=== PATIENT | female | born 1950 | race Caucasian/White ===

== ENCOUNTER 2016-04-18 08:08 | Day surgery (SDC) | payer MEDICARE, OTHER ==
[2016-04-12 12:08] VITALS: BMI 23.0
[~2016-04-18 08:08] MED LIST: LACTATED RINGERS 1,000 ML IV SCH
[2016-04-18 08:20] VITALS: RESP 18
[2016-04-18 08:26] LABS: Glucose,Whole Blood 182 mg/dL (75-99)
[2016-04-18] MEDS ORDERED: LIDOCAINE 1% 20 ML VIAL (10MG/ML) FOR IV START INTRADERMA ONE (08:26)
[2016-04-18] MEDS ORDERED: LIDOCAINE 1% INJ 10MG/ML (20 ML MDV) ONE (09:22)
[2016-04-18] MEDS ORDERED: PROPOFOL 10 MG/ML 20 ML VIAL IV ONE (09:22)
[2016-04-18] MEDS ORDERED: GLYCOPYRROLATE 0.2 MG/ML 2 ML VIAL ONE (09:22)
--- NOTE | 2016-04-18 09:37 | P.GSHP ---
History of Present Illness H&P Date: 04/18/16 Chief Complaint: Right upper quadrant and epigastric pain This is a 65-year-old female who presents today for EGD. Patient has had complaints of right quadrant and epigastric pain. She has a previous history of peptic ulcer disease. Past Medical History Past Medical History: Diabetes Mellitus, Fibromyalgia, GERD/Reflux Additional Past Medical History / Comment(s): Idiopathic thrombocytopenia purpura, IBS, diverticulitis, hiatal hernia, 2 herniated discs-L3/L4 History of Any Multi-Drug Resistant Organisms: None Reported Past Surgical History: Adenoidectomy, Bladder Surgery, Bowel Resection, Cholecystectomy, Hernia Repair, Hysterectomy, Tonsillectomy Additional Past Surgical History / Comment(s): BLADDER SUSPENSION x 2, breast biopsy, bowel resection due to rupture, Past Anesthesia/Blood Transfusion Reactions: No Reported Reaction Additional Past Anesthesia/Blood Transfusion Reaction / Comment(s): Pt received blood in 2005 due to ITP without reaction. Past Psychological History: No Psychological Hx Reported Additional Psychological History / Comment(s): . Smoking Status: Current every day smoker Past Alcohol Use History: None Reported Additional Past Alcohol Use History / Comment(s): STARTED SMOKING AT AGE 18- SMOKES 1PPD Past Drug Use History: None Reported - Past Family History Mother Family Medical History: Cancer, Diabetes Mellitus Additional Family Medical History / Comment(s): Father had a defibrillator. He of heart dx in his 80's Medications and Allergies Home Medications Medication Instructions Recorded Confirmed Type Loperamide [Imodium] 2 mg PO Q8HR PRN 04/04/14 04/18/16 History Insulin Aspart [NovoLOG Flexpen] See Protocol SQ DIRECTED 08/02/15 04/18/16 History ALPRAZolam 0.25 mg PO BID PRN 11/03/15 04/18/16 History Insulin Detemir [Levemir] 22 unit SQ HS 11/09/15 04/18/16 History HYDROcodone/APAP 10-325MG [Buckeye 1 tab PO Q8HR PRN 04/12/16 04/18/16 History 10-325] Insulin Degludec [Tresiba 22 unit SQ HS 04/12/16 04/18/16 History Flextouch U-200] Solifenacin Succinate [Vesicare] 10 mg PO HS 04/12/16 04/18/16 History rOPINIRole HCL [Requip] 0.25 mg PO HS 04/12/16 04/18/16 History Allergies Allergy/AdvReac Type Severity Reaction Status Date / Time aspirin Allergy Unknown Verified 04/18/16 08:20 Surgical - Exam Vital Signs Pulse Resp BP Pulse Ox 92 18 111/54 98 04/18/16 08:19 04/18/16 08:19 04/18/16 08:19 04/18/16 08:19 - General well developed, no distress - Eyes PERRL - ENT normal pinna - Neck no masses - Respiratory normal expansion - Cardiovascular Rhythm: regular - Abdomen Right upper quadrant pain Abdomen: soft, non tender Results - Labs Abnormal Lab Results - Last 24 Hours (Table) 04/18/16 Range/Units 08:24 POC Glucose (mg/dL) 182 H (75-99) mg/dL Assessment and Plan Plan: Right upper quadrant and epigastric pain. We'll perform EGD.
--- NOTE | 2016-04-18 09:44 | P.OP ---
Date of Procedure: 04/18/16 Preoperative Diagnosis: Epigastric and right upper quadrant pain Postoperative Diagnosis: Hemorrhagic gastritis Procedure(s) Performed: EGD Anesthesia: MAC Surgeon: Ricci Fang Pathology: other (Antrum) Condition: stable Disposition: PACU Description of Procedure: The patient's placed on the endoscopy table in the lateral position. She received IV sedation. The gastroscope some placed oropharynx and passed in the esophagus and into the stomach. Scope was then placed through the pylorus. The first and second portion of the duodenum appeared normal. Scope was then brought back the antrum and there was evidence of hemorrhagic gastritis. A biopsies performed. The scope was retroflexed and remainder of the stomach appeared normal. The GE junction was at 40 cm. There was no evidence of a hiatal hernia. The distal esophagus appeared normal. The proximal esophagus. Normal. Scope was withdrawn for patient.
[2016-04-18 10:19] VITALS: BP 113/67; PULSE 89
[2016-04-18 10:19] LABS: Glucose,Whole Blood 179 mg/dL (75-99)
== END 2016-04-18 10:36 | disposition home or self-care (01) ==
LOC: ORWHC2ENDO 08:08
PROVIDERS: ATTEND Surgery
DX: K29.51 Unspecified chronic gastritis with bleeding (principal); Z87.11 Personal history of peptic ulcer disease; Z79.82 Long term (current) use of aspirin; E11.9 Type 2 diabetes mellitus without complications; M79.7 Fibromyalgia; K58.9 Irritable bowel syndrome, unspecified; D69.3 Immune thrombocytopenic purpura; Z79.4 Long term (current) use of insulin; Z79.899 Other long term (current) drug therapy; F17.200 Nicotine dependence, unspecified, uncomplicated
CPT/HCPCS: 88305; 88342; 43239; J2001; J2704; 99153

== ENCOUNTER 2016-08-25 22:42 | Observation (INO) | payer MEDICARE, OTHER ==
[2016-08-25] MEDS ORDERED: MORPHINE SULFATE 4 MG/ML SYRINGE IV STA (23:31)
--- NOTE | 2016-08-25 23:33 | ED ---
General Adult HPI - General Chief complaint: Chest Pain Stated complaint: chest & body pain Time Seen by Provider: 08/25/16 23:03 Source: patient, family Mode of arrival: wheelchair Limitations: no limitations - History of Present Illness Initial comments: This patient is a 65-year-old woman presenting to be evaluated for months of intermittent abdominal pains and then also today having some chest pain. Patient relates that she has been having these abdominal pains since she had a surgery in October of last year. She describes pain to the epigastric and upper abdomen which is intermittent, and she has a difficult time characterizing it. Today the pain was more severe than it usually is, she rates it as about 8 out of 10 now. She states that there is also some left lower quadrant pain going on which is not usually the case. Then this afternoon she was having substernal chest pain. Again the patient has difficult time characterizing these pains. There were no anginal symptoms, including no dyspnea, diaphoresis , palpitations, lightheadedness, or syncope rate the patient was having some nausea but she does have this associated with the abdominal pain. -: month(s) - Related Data Home Medications Medication Instructions Recorded Confirmed Loperamide [Imodium] 2 mg PO Q8HR PRN 04/04/14 08/25/16 Insulin Aspart [NovoLOG Flexpen] See Protocol SQ PC-TID 08/02/15 08/25/16 ALPRAZolam 0.25 mg PO BID PRN 11/03/15 08/25/16 Insulin Detemir [Levemir] 20 unit SQ BID 11/09/15 08/25/16 Solifenacin Succinate [Vesicare] 10 mg PO HS 04/12/16 08/25/16 rOPINIRole HCL [Requip] 0.25 mg PO HS 04/12/16 08/25/16 Allergies Allergy/AdvReac Type Severity Reaction Status Date / Time aspirin AdvReac Severe Hx of Verified 08/25/16 23:43 Perforated Bowel. Does not want. Review of Systems ROS Statement: Those systems with pertinent positive or pertinent negative responses have been documented in the HPI. ROS Other: All systems not noted in ROS Statement are negative. Constitutional: Denies: fever, weakness Respiratory: Denies: cough, dyspnea Cardiovascular: Reports: as per HPI, chest pain. Denies: palpitations, orthopnea, edema, syncope Gastrointestinal: Reports: abdominal pain, nausea. Denies: vomiting, diarrhea, constipation, melena, hematochezia Genitourinary: Denies: dysuria, hematuria Musculoskeletal: Denies: back pain Skin: Denies: rash Neurological: Denies: headache, weakness, numbness Past Medical History Past Medical History: Diabetes Mellitus, Fibromyalgia, GERD/Reflux Additional Past Medical History / Comment(s): Idiopathic thrombocytopenia purpura, IBS, diverticulitis, hiatal hernia, 2 herniated discs-L3/L4 History of Any Multi-Drug Resistant Organisms: None Reported Past Surgical History: Adenoidectomy, Bladder Surgery, Bowel Resection, Cholecystectomy, Hernia Repair, Hysterectomy, Tonsillectomy Additional Past Surgical History / Comment(s): BLADDER SUSPENSION x 2, breast biopsy, bowel resection due to rupture, Past Anesthesia/Blood Transfusion Reactions: No Reported Reaction Additional Past Anesthesia/Blood Transfusion Reaction / Comment(s): Pt received blood in 2005 due to ITP without reaction. Past Psychological History: No Psychological Hx Reported Additional Psychological History / Comment(s): . Smoking Status: Current every day smoker Past Alcohol Use History: None Reported Additional Past Alcohol Use History / Comment(s): STARTED SMOKING AT AGE 18- SMOKES 1PPD Past Drug Use History: None Reported - Past Family History Mother Family Medical History: Cancer, Diabetes Mellitus Additional Family Medical History / Comment(s): Father had a defibrillator. He of heart dx in his 80's General Exam Limitations: no limitations General appearance: alert, in no apparent distress Head exam: Present: atraumatic, normocephalic Eye exam: Present: normal appearance. Absent: scleral icterus, conjunctival injection ENT exam: Present: normal oropharynx, mucous membranes moist Respiratory exam: Present: normal lung sounds bilaterally. Absent: respiratory distress, wheezes, rales, rhonchi, stridor, chest wall tenderness Cardiovascular Exam: Present: regular rate, normal rhythm, normal heart sounds. Absent: systolic murmur, diastolic murmur, rubs, gallop GI/Abdominal exam: Present: soft, normal bowel sounds. Absent: distended, tenderness, guarding, rebound, mass, pulsatile mass, hernia Extremities exam: Present: normal inspection, normal capillary refill. Absent: pedal edema, calf tenderness Back exam: Present: normal inspection. Absent: CVA tenderness (R), CVA tenderness (L) Neurological exam: Present: alert Skin exam: Present: warm, dry, intact, normal color. Absent: rash, cyanosis, diaphoretic, erythema, petechiae, pallor, mottled Course Vital Signs 08/25/16 08/26/16 23:00 00:45 Temperature 96.7 F L Pulse Rate 89 74 Respiratory 16 18 Rate Blood Pressure 124/58 114/56 O2 Sat by Pulse 98 96 Oximetry EKG Findings - EKG Results: EKG: interpreted by SHIRIN BRADEN, sinus rhythm (Rate 82 bpm), normal axis, normal QRS, normal ST/T, no acute changes EKG shows: sinus rhythm - VT, Pacemaker, Normal: Normal tracing: normal tracing Medical Decision Making - Lab Data Result diagrams: 08/25/16 23:45 08/25/16 23:45 Lab Results 08/25/16 08/25/16 08/25/16 Range/Units 23:45 23:45 23:45 WBC 9.5 (3.8-10.6) k/uL RBC 5.40 (3.80-5.40) m/uL Hgb 15.4 (11.4-16.0) gm/dL Hct 47.3 H (34.0-46.0) % MCV 87.6 (80.0-100.0) fL MCH 28.5 (25.0-35.0) pg MCHC 32.6 (31.0-37.0) g/dL RDW 13.5 (11.5-15.5) % Plt Count 224 (150-450) k/uL Neutrophils % 43 % Lymphocytes % 45 % Monocytes % 6 % Eosinophils % 3 % Basophils % 1 % Neutrophils # 4.0 (1.3-7.7) k/uL Lymphocytes # 4.3 (1.0-4.8) k/uL Monocytes # 0.6 (0-1.0) k/uL Eosinophils # 0.3 (0-0.7) k/uL Basophils # 0.1 (0-0.2) k/uL Sodium 136 L (137-145) mmol/L Potassium 4.3 (3.5-5.1) mmol/L Chloride 106 (98-107) mmol/L Carbon Dioxide 21 L (22-30) mmol/L Anion Gap 9 mmol/L BUN 16 (7-17) mg/dL Creatinine 0.50 L (0.52-1.04) mg/dL Est GFR (MDRD) Af Amer >60 (>60 ml/min/1.73 sqM) Est GFR (MDRD) Non-Af >60 (>60 ml/min/1.73 sqM) Glucose 243 H (74-99) mg/dL Calcium 9.7 (8.4-10.2) mg/dL Magnesium 1.9 (1.6-2.3) mg/dL Total Bilirubin 0.3 (0.2-1.3) mg/dL AST 24 (14-36) U/L ALT 36 (9-52) U/L Alkaline Phosphatase 132 H (38-126) U/L Troponin I <0.012 (0.000-0.034) ng/mL Total Protein 6.5 (6.3-8.2) g/dL Albumin 4.1 (3.5-5.0) g/dL Amylase 44 (30-110) U/L Lipase 138 (23-300) U/L Disposition Clinical Impression: Chest pain, Abdominal pain Disposition: ADMITTED IP TO THIS HOSP Condition: Fair Referrals: Nick Brock MD [Primary Care Provider] - 1-2 days
[2016-08-26 00:07] LABS: Basophils # (A) 0.1 k/uL (0-0.2); Basophils % (A) 1 %; CH 28.8; CHCM 32.9; Eosinophils # (A) 0.3 k/uL (0-0.7); Eosinophils % (A) 3 %; HCT 47.3 % (34.0-46.0); HDW 2.24; HGB 15.4 gm/dL (11.4-16.0); Luc % (Auto) 2; Lymphocytes # (A) 4.3 k/uL (1.0-4.8); Lymphocytes % (A) 45 %; MCH 28.5 pg (25.0-35.0); MCHC 32.6 g/dL (31.0-37.0); MCV 87.6 fL (80.0-100.0); Mean Platelet Volume 7.7; Monocytes # (A) 0.6 k/uL (0-1.0); Monocytes % (A) 6 %; Neutrophils % (A) 43 %; RDW 13.5 % (11.5-15.5); WBC 9.5 k/uL (3.8-10.6); WBC (Perox) 9.03
[2016-08-26 00:17] LABS: ALT 36 U/L (9-52); AST 24 U/L (14-36); Alkaline Phosphatase 132 U/L (38-126); Amylase 44 U/L (30-110); Anion Gap 9 mmol/L; Blood Urea Nitrogen 16 mg/dL (7-17); Calcium 9.7 mg/dL (8.4-10.2); Carbon Dioxide 21 mmol/L (22-30); Chloride 106 mmol/L (98-107); Glucose 243 mg/dL (74-99); Magnesium 1.9 mg/dL (1.6-2.3); Non-African American GFR(MDRD) >60 (>60 ml/min/1.73 sqM); Potassium 4.3 mmol/L (3.5-5.1); Sodium 136 mmol/L (137-145); Total Bilirubin 0.3 mg/dL (0.2-1.3); Total Protein 6.5 g/dL (6.3-8.2)
--- NOTE | 2016-08-26 00:50 | CT ---
EXAM: CT Abdomen and Pelvis Without Intravenous Contrast CLINICAL HISTORY: Reason: Pain TECHNIQUE: Axial computed tomography images of the abdomen and pelvis without intravenous contrast. CTDI is 6.5 mGy and DLP is 292.7 mGy-cm. This CT exam was performed using one or more of the following dose reduction techniques: automated exposure control, adjustment of the mA and/or kV according to patient size, and/or use of iterative reconstruction technique. COMPARISON: CT abdomen-pelvis 11/03/2015 FINDINGS: Lower thorax: Mild right base probably fibrotic scarring or subsegmental atelectasis. Subpleural bleb along the anterior left lung base. ABDOMEN: Liver: Liver is unremarkable. Gallbladder and bile ducts: Previous cholecystectomy. Pancreas: Pancreas is unremarkable. No ductal dilation. Spleen: Spleen is unremarkable Adrenals: No adrenal masses. Kidneys and ureters: No evidence of renal calculi or hydronephrosis. Approximately 3.2 cm cyst mid zone left kidney, unchanged since 11/03/2015 with evidence of mild cyst wall calcification. Small subcentimeter hyperdense lesion along upper pole to mid zone left kidney suggesting probable hyperdense renal cyst with similar finding evident on prior CT of 11/03/2015. Stomach and bowel: No evidence of bowel obstruction or pneumoperitoneum. No evidence of appendicitis. Pelvic postsurgical changes about region of sigmoid colon. Appendix: See above. PELVIS: Bladder: Unremarkable. No stones. Reproductive: Unremarkable as visualized. ABDOMEN and PELVIS: Intraperitoneal space: See above. Bones/joints: Lower lumbar degenerative disc disease and spondylosis. Soft tissues: No evidence of ventral hernia. Vasculature: Calcific atherosclerotic disease. No evidence of abdominal aortic aneurysm. Lymph nodes: No abnormal masses or adenopathy. No abnormal inflammatory changes or fluid collections. IMPRESSION: Left renal cysts as described in body of report. No evidence of acute abdominal-pelvic disease.
[2016-08-26 01:12] VITALS: RESP 18
[2016-08-26] MEDS ORDERED: MORPHINE SULFATE 4 MG/ML SYRINGE IV STA (02:15)
[2016-08-26] MEDS ORDERED: NITROGLYCERIN SL TABS 0.4 MG TAB SUBLINGUAL PRN (04:24)
[2016-08-26] MEDS ORDERED: MORPHINE SULFATE 4 MG/ML SYRINGE IV PRN (04:24)
[2016-08-26] MEDS ORDERED: ALPRAZolam 0.25 MG TAB PO PRN (04:28)
[2016-08-26] MEDS ORDERED: SODIUM CHLORIDE 0.9% 1,000 ML IV SCH (04:30)
[2016-08-26 05:32] VITALS: BMI 22.8
[2016-08-26 06:21] LABS: Creatine Kinase 85 U/L (30-135)
[2016-08-26 06:35] LABS: Troponin I <0.012 ng/mL (0.000-0.034)
[2016-08-26 06:51] LABS: Creatine Kinase MB 2.6 ng/mL (0.0-2.4)
[2016-08-26 06:55] LABS: Glucose,Whole Blood 194 mg/dL (75-99)
[2016-08-26] MEDS ORDERED: INSULIN DETEMIR 100 UNIT/ML 10 ML VIAL SQ SCH (09:00)
--- NOTE | 2016-08-26 09:17 | CONS ---
DATE OF CONSULTATION: CHIEF COMPLAINT: Chest pain. Neeru is a 65-year-old lady with history of insulin-requiring diabetes who has a prior history of hiatal hernia surgery who comes to the hospital with chest discomfort. She describes it as an epigastric pain that radiates to her chest area. She has had this problem on and off since her hiatal hernia surgery. She also had vague abdominal pains. She is admitted to hospital with a diagnosis of chest pain and at the time of my evaluation, she is symptom free. EKG does not reveal ischemic changes and cardiac enzymes have been negative. Hemoglobin is normal at 15.4. Past medical history is significant for diabetes. Medications include: 1. Requip. 2. Imodium. 3. Levemir. 4. Xanax. THE PATIENT IS ALLERGIC TO ASPIRIN. FAMILY HISTORY: Negative for premature coronary artery disease. SOCIAL HISTORY: Significant for smoking. Negative for ETOH abuse, or drug abuse. REVIEW OF SYSTEMS: HEENT: Unremarkable. CARDIAC: As described above. RESPIRATORY: Negative. GI: Significant for symptoms as described above. CARDIAC: As described above. GENITOURINARY: Negative. MUSCULOSKELETAL: Negative. ENDOCRINE: Negative. DERMATOLOGICAL: Negative. Oncological: Negative. HEMATOLOGICAL: Negative. The rest of the system review is not relevant. On exam, comfortable at rest. Vital signs are stable. There is no jugular venous distention. Carotid upstroke is normal. There is no bruit. Chest exam reveals good air entry bilaterally. Heart exam reveals first and second heart sounds. No gallop. No murmur, no rub. ABDOMEN: Soft, nontender. Exam of extremities did not reveal edema. Peripheral pulses are felt. STRING CUTTER exam did not reveal focal neurological deficits. Two sets of troponins are negative. EKG does not reveal ischemic changes. ASSESSMENT: Chest pain, atypical, probably related to the hiatal hernia surgery. PLAN: The patient is doing well. Myocardial infarction is ruled out. I will obtain a 2-D echocardiogram on her and we should be able to discharge her home and arrange an outpatient stress test on her.
[2016-08-26] MEDS: INSULIN LISPRO (humaLOG) 300 UNIT/3 ML VIAL SQ SCH ×3 (09:48→17:34)
[2016-08-26] MEDS: HEPARIN SODIUM,PORCINE 5,000 UNIT/ML 1 ML VIAL SQ SCH ×2 (10:39→17:33)
[2016-08-26] MEDS ORDERED: NICOTINE 21MG/24HR PATCH TRANSDERM SCH (11:30)
--- NOTE | 2016-08-26 11:43 | HP ---
DATE OF ADMISSION: 08/26/2016 PRESENTING COMPLAINT: Abdominal pain. HISTORY OF PRESENTING COMPLAINT: This is a 65-year-old patient of Dr. Brock. Patient known to me from a prior admission in October of last year. Patient has a rather extensive medical history with chronic stable medical conditions include diabetes mellitus type 2, fibromyalgia, L3-4 herniated disc, restless leg syndrome, fatty liver. Patient on 08/05/2015 underwent cholecystectomy and lysis of adhesions by Dr. Fang and 08/03/2015 did undergo EGD that showed some gastritis. Patient has had abdominal pain on and off for quite some time and also in October she had presented with abdominal pain and epigastric pain. Patient's pain is present most off and on most of the time she states. Now she presented with pain a bit more in the lower abdomen, has slight nausea but is able to eat and can keep her food down pretty much the whole day, up and about in the house. Patient did have a bowel movement yesterday. Denies any fever. REVIEW OF SYSTEMS: CONSTITUTIONAL: Tired. HEENT: None. RESPIRATORY: None. CARDIOVASCULAR: No chest pain, though presented in the ER, most of the pain described is lower abdomen and going into the epigastric area below the breast on both the sides. GASTROINTESTINAL: As above. GENITOURINARY: None. MUSCULOSKELETAL: Lower back pain. DERMATOLOGICAL: None. HEMATOLOGICAL: None. LYMPHATICS: None. PSYCHIATRY: Slight anxiety. NEUROLOGICAL: Restless leg syndrome. Past medical history of diabetes mellitus type 2, fibromyalgia, L3-4 herniated disc, restless leg syndrome, fatty liver, gastritis. PAST SURGICAL HISTORY: Adenoidectomy, bladder surgery, bowel resection, cholecystectomy, hysterectomy, tonsillectomy, bladder suspension, ( ), salpingectomy. HOME MEDICATIONS: 1. Requip 0.52 mg p.o. q.h.s. 2. Vesicare 10 mg p.o. q.h.s. 3. Imodium 2 mg q.8 p.r.n. 4. Levemir 20 units subQ b.i.d. 5. NovoLog Flex pen. 6. Xanax 0.25 p.o. b.i.d. p.r.n. Allergy to ASPIRIN. On examination, temperature 98.1, pulse 71, respiration 18, blood pressure 105/45, pulse ox 94% on room air. GENERAL APPEARANCE: Lying in bed, not in distress. EYES: Pupils equal. Conjunctivae normal. HEENT: Oral cavity normal. NECK: JVD is not raised. Mass not palpable. RESPIRATORY: Effort normal. LUNGS: Decreased breath sounds. CARDIOVASCULAR: First and second sounds normal. No edema. ABDOMEN: Soft, nontender. Liver and spleen not palpable. LYMPHATIC: No lymph node palpable in neck or axillae. PSYCHIATRY: Alert and oriented x3. Mood and affect normal. NEUROLOGICAL: Pupils equal. Cranial nerves grossly intact. Power and sensation grossly intact. MUSCULOSKELETAL: Evidence of arthritis in different joints. INVESTIGATIONS: White count 9.5, hemoglobin 15.4. Potassium 4.3, BUN 16, creatinine 0.50. Troponin x2 negative. CT scan of the abdomen and pelvis nonspecific findings, no causes for his acute condition ASSESSMENT: 1. Acute on chronic abdominal pain in a patient with extensive medical history, long-standing abdominal pain. Patient has underlying irritable bowel syndrome. Other differential could be gut ischemia given that she is a smoker. The abdomen does not appear to be acute in terms of any surgical but will get a surgical opinion to make sure. 2. Chronic nicotine dependence. Patient is an active cigarette smoker. 3. Acute on chronic gastritis. The patient is a smoker. 4. Diabetes mellitus type 2, insulin requiring. 5. Fibromyalgia. 6. History of some chronic herniated lumbar disc. 7. Restless leg syndrome. 8. Fatty liver. 9. Emphysema in a smoker. PLAN: Home medications are reviewed. Accu-Cheks will be followed. Dr. Fang from General Surgery was consulted. Because of some chest pain, Cardiology was consulted who also felt this was not a cardiac presentation. Patient was actually counseled against smoking extensively. Await input from General Surgery.
[2016-08-26 11:54] LABS: Creatine Kinase 78 U/L (30-135)
--- NOTE | 2016-08-26 11:58 | P.GSCN ---
History of Present Illness Consult date: 08/26/16 Reason for Consult: Abdominal chest pain History of present illness: The patient's a 65-year-old female that presented to the emergency department with epigastric and chest pain. SHe has a history of gastritis and superficial gastric ulcers in the past. She had been on a proton pump inhibitor however her prescription ran out greater than 1 ago. She didn't take anything over-the- counter or called to request refill of the medication. She's had no nausea or vomiting. No blood in the stools or dark tarry stools. No fevers no chills. No shortness of breath. Review of Systems All systems: negative Past Medical History Past Medical History: Diabetes Mellitus, Fibromyalgia, GERD/Reflux Additional Past Medical History / Comment(s): Idiopathic thrombocytopenia purpura, IBS, diverticulitis, hiatal hernia, 2 herniated discs-L3/L4, RLS, gastritis, superficial gastric ulcers History of Any Multi-Drug Resistant Organisms: None Reported Past Surgical History: Adenoidectomy, Bladder Surgery, Bowel Resection, Cholecystectomy, Hernia Repair, Hysterectomy, Tonsillectomy Additional Past Surgical History / Comment(s): BLADDER SUSPENSION x 2, breast biopsy, bowel resection due to rupture, Past Anesthesia/Blood Transfusion Reactions: No Reported Reaction Additional Past Anesthesia/Blood Transfusion Reaction / Comm: Pt received blood in 2005 due to ITP without reaction. Past Psychological History: No Psychological Hx Reported Additional Psychological History / Comment(s): . Smoking Status: Current every day smoker Past Alcohol Use History: None Reported Additional Past Alcohol Use History / Comment(s): STARTED SMOKING AT AGE 18- SMOKES 1PPD Past Drug Use History: None Reported - Past Family History Mother Family Medical History: Cancer, Diabetes Mellitus Additional Family Medical History / Comment(s): Father had a defibrillator. He of heart dx in his 80's Medications and Allergies Home Medications Medication Instructions Recorded Confirmed Type Loperamide [Imodium] 2 mg PO Q8HR PRN 04/04/14 08/26/16 History Insulin Aspart [NovoLOG Flexpen] See Protocol SQ PC-TID 08/02/15 08/26/16 History ALPRAZolam 0.25 mg PO BID PRN 11/03/15 08/26/16 History Insulin Detemir [Levemir] 20 unit SQ BID 11/09/15 08/26/16 History Solifenacin Succinate [Vesicare] 10 mg PO HS 04/12/16 08/26/16 History rOPINIRole HCL [Requip] 0.25 mg PO HS 04/12/16 08/26/16 History Allergies Allergy/AdvReac Type Severity Reaction Status Date / Time aspirin AdvReac Severe Hx of Verified 08/26/16 04:58 Perforated Bowel. Does not want. Surgical - Exam Osteopathic Statement: *. No significant issues noted on an osteopathic structural exam other than those noted in the History and Physical/Consult. Vital Signs Temp Pulse Resp BP Pulse Ox 96.7 F L 89 16 124/58 98 08/25/16 23:00 08/25/16 23:00 08/25/16 23:00 08/25/16 23:00 08/25/16 23:00 - General well developed, well nourished, no distress - Eyes normal ocular movement - ENT normal mucosa, no hearing loss - Neck trachea midline - Respiratory normal respiratory effort, clear to auscultation - Cardiovascular Rhythm: regular - Abdomen Abdomen: soft, tender (In the epigastric area), no guarding, no rigid, no rebound, no distended Results - Labs 08/25/16 23:45 08/25/16 23:45 Abnormal Lab Results - Last 24 Hours (Table) 08/25/16 08/25/16 08/26/16 Range/Units 23:45 23:45 05:28 Hct 47.3 H (34.0-46.0) % Sodium 136 L (137-145) mmol/L Carbon Dioxide 21 L (22-30) mmol/L Creatinine 0.50 L (0.52-1.04) mg/dL Glucose 243 H (74-99) mg/dL POC Glucose (mg/dL) (75-99) mg/dL Alkaline Phosphatase 132 H (38-126) U/L CK-MB (CK-2) 2.6 H* (0.0-2.4) ng/mL 08/26/16 Range/Units 06:54 Hct (34.0-46.0) % Sodium (137-145) mmol/L Carbon Dioxide (22-30) mmol/L Creatinine (0.52-1.04) mg/dL Glucose (74-99) mg/dL POC Glucose (mg/dL) 194 H (75-99) mg/dL Alkaline Phosphatase (38-126) U/L CK-MB (CK-2) (0.0-2.4) ng/mL Diabetes panel 08/25/16 Range/Units 23:45 Sodium 136 L (137-145) mmol/L Potassium 4.3 (3.5-5.1) mmol/L Chloride 106 (98-107) mmol/L Carbon Dioxide 21 L (22-30) mmol/L BUN 16 (7-17) mg/dL Creatinine 0.50 L (0.52-1.04) mg/dL Glucose 243 H (74-99) mg/dL Calcium 9.7 (8.4-10.2) mg/dL AST 24 (14-36) U/L ALT 36 (9-52) U/L Alkaline Phosphatase 132 H (38-126) U/L Total Protein 6.5 (6.3-8.2) g/dL Albumin 4.1 (3.5-5.0) g/dL Calcium panel 08/25/16 Range/Units 23:45 Calcium 9.7 (8.4-10.2) mg/dL Albumin 4.1 (3.5-5.0) g/dL Pituitary panel 08/25/16 Range/Units 23:45 Sodium 136 L (137-145) mmol/L Potassium 4.3 (3.5-5.1) mmol/L Chloride 106 (98-107) mmol/L Carbon Dioxide 21 L (22-30) mmol/L BUN 16 (7-17) mg/dL Creatinine 0.50 L (0.52-1.04) mg/dL Glucose 243 H (74-99) mg/dL Calcium 9.7 (8.4-10.2) mg/dL Adrenal panel 08/25/16 Range/Units 23:45 Sodium 136 L (137-145) mmol/L Potassium 4.3 (3.5-5.1) mmol/L Chloride 106 (98-107) mmol/L Carbon Dioxide 21 L (22-30) mmol/L BUN 16 (7-17) mg/dL Creatinine 0.50 L (0.52-1.04) mg/dL Glucose 243 H (74-99) mg/dL Calcium 9.7 (8.4-10.2) mg/dL Total Bilirubin 0.3 (0.2-1.3) mg/dL AST 24 (14-36) U/L ALT 36 (9-52) U/L Alkaline Phosphatase 132 H (38-126) U/L Total Protein 6.5 (6.3-8.2) g/dL Albumin 4.1 (3.5-5.0) g/dL Assessment and Plan (1) History of gastric ulcer Status: Acute (2) History of gastritis Status: Acute (3) Abdominal pain Status: Acute Plan: Recommend resumption of a proton pump inhibitor. She's had 2 EGDs in the last year, neither one showed H. pylori so I do not think that needs to be checked. Start her on a soft diet. No surgical intervention planned at this point.
[2016-08-26 12:03] LABS: Glucose,Whole Blood 171 mg/dL (75-99)
[2016-08-26 12:08] LABS: Creatine Kinase MB 2.4 ng/mL (0.0-2.4); Troponin I <0.012 ng/mL (0.000-0.034)
[2016-08-26] MEDS ORDERED: PANTOPRAZOLE 40 MG TABLET PO SCH (12:30)
[2016-08-26 12:40] LABS: Hemoglobin A1C 10.9 % (4.2-6.1)
[2016-08-26] MEDS: SUCRALFATE 1 GM TAB PO SCH ×2 (12:40→17:32)
--- NOTE | 2016-08-26 13:05 | ECHOF ---
Referral Reason:chest pain MEASUREMENTS -------- HEIGHT: 152.4 cm WEIGHT: 56.7 kg BP: 120/40 RVIDd: 2.3 cm (< 3.3) IVSd: 0.9 cm (0.6 - 1.1) LVIDd: 3.7 cm (3.9 - 5.3) LVPWd: 0.9 cm (0.6 - 1.1) IVSs: 1.4 cm LVIDs: 2.3 cm LVPWs: 1.1 cm LA Diam: 2.4 cm (2.7 - 3.8) LAESV Index (A-L): 17.10 ml/m MV EXCURSION: 13.991 mm (> 18.000) MV EF SLOPE: 69 mm/s (70 - 150) EPSS: 0.7 cm MV E Raul: 0.72 m/s MV DecT: 325 ms MV A Raul: 0.87 m/s MV E/A Ratio: 0.83 FINDINGS -------- Sinus rhythm. This was a technically adequate study. Left ventricular wall thickness is normal. Overall left ventricular systolic function is normal with, an EF between 55 - 60 %. The right ventricle is normal in size. Normal LA size by volume 22+/-6 ml/m2. The right atrial size is normal. There is mild to moderate aortic valve sclerosis. There is no evidence of aortic regurgitation. Mild mitral annular calcification present. Mild mitral regurgitation is present. Mild tricuspid regurgitation present. There is no evidence of pulmonary hypertension. The right ventricular systolic pressure, as measured by Doppler, is {RVSP}. There is no pulmonic regurgitation present. The aortic root size is normal. There is no pericardial effusion. CONCLUSIONS -------- 1. Left ventricular wall thickness is normal. 2. Overall left ventricular systolic function is normal with, an EF between 55 - 60 %. 3. There is mild to moderate aortic valve sclerosis. 4. Mild mitral annular calcification present. 5. Mild mitral regurgitation is present. 6. Mild tricuspid regurgitation present. 7. There is no evidence of pulmonary hypertension. 8. The right ventricular systolic pressure, as measured by Doppler, is {RVSP}. WEIGHT AND BALANCE CONTROL AGENT: Yola Wheat RDCS
[2016-08-26 16:14] VITALS: BP 135/59; PULSE 88; TEMP 98.2
[2016-08-26] MEDS ORDERED: OXYBUTYNIN XL 5 MG TAB.ER.24 PO SCH (21:00)
[2016-08-27] MEDS ORDERED: ASPIRIN 325 MG TAB PO SCH (09:00)
--- NOTE | 2016-08-28 08:36 | DS ---
DATE OF ADMISSION: 08/26/2016 DATE OF DISCHARGE: 08/26/2016 FINAL DIAGNOSES: 1. Acute on chronic abdominal pain; could be irritable bowel syndrome. Gut ischemia still in the differential. 2. Chronic nicotine dependence. Patient is an active cigarette smoker. 3. Acute on chronic gastritis. 4. Diabetes mellitus type 2, insulin requiring. 5. Fibromyalgia. 6. Chronic herniated lumbar herniated disc. 7. Restless leg syndrome. 8. Fatty liver. 9. Emphysema in a smoker. HOSPITAL COURSE: This patient has had extensive GI workup in the past including EGDs seen by Dr. Mccall, Dr. Fang, keeps having ( ) abdominal pain. Yet again presented with episode of abdominal pain. There is no fever, no white count. Tolerating a diet. Having a bowel movement. Workup was negative. Seen by Dr. Patino from general surgery. Patient was found to be rather comfortable. ON EXAM: ABDOMEN: Soft, nontender. Also, there was nonspecific chest pain, seen by Dr. Jayla Mccall who will arrange for an outpatient stress test. Care was discussed with the patient. Counseled against smoking. The patient did also have a 2-D echocardiogram that showed EF of 55% to 60%. DISCHARGE MEDICATIONS: 1. Imodium 2 mg q.8 p.r.n. 2. NovoLog FlexPen t.i.d. 3. Xanax 0.25 p.o. b.i.d. p.r.n. 4. Levemir 20 units subcu b.i.d. 5. VESIcare 10 mg p.o. q.h.s. 6. Requip 0.25 p.o. q.h.s. 7. Omeprazole 20 mg p.o. daily. Follow up with Dr. Brock in 2 days. Follow up with Dr. Fang in a week. Follow up with Dr. Jayla Mccall per him.
== END 2016-08-26 18:02 | disposition home or self-care (01) ==
LOC: EC 22:42 → 3OBS 08-26 04:24
PROVIDERS: ADMIT Hospitalist; ATTEND Hospitalist
DX: G89.29 Other chronic pain (principal); R10.32 Left lower quadrant pain; R07.2 Precordial pain; R07.89 Other chest pain; R10.13 Epigastric pain; F17.210 Nicotine dependence, cigarettes, uncomplicated; K29.50 Unspecified chronic gastritis without bleeding; K29.00 Acute gastritis without bleeding; E11.9 Type 2 diabetes mellitus without complications; M79.7 Fibromyalgia; M51.26 Other intervertebral disc displacement, lumbar region; G25.81 Restless legs syndrome; K76.0 Fatty (change of) liver, not elsewhere classified; J43.9 Emphysema, unspecified; K21.9 Gastro-esophageal reflux disease without esophagitis; K58.9 Irritable bowel syndrome, unspecified; Z79.4 Long term (current) use of insulin; Z79.899 Other long term (current) drug therapy; Z88.6 Allergy status to analgesic agent
CPT/HCPCS: 99285; 96374 ×2; 96376 ×3; 36415; 93005; 93306; 80053; 82150; 83036; 82550; 82553; 83690; 83735; 84484; 85025; 74176; G0378; S4990; J2270 ×2; J1644

== ENCOUNTER 2016-09-04 06:37 | Day surgery (SDC) | payer MEDICARE, OTHER ==
[2016-09-01 09:27] VITALS: BMI 21.9
[2016-09-04 07:14] VITALS: RESP 18; TEMP 97
[2016-09-04] MEDS ORDERED: LACTATED RINGERS 1,000 ML IV ONE (07:14)
[2016-09-04 07:20] LABS: Glucose,Whole Blood 253 mg/dL (75-99)
[2016-09-04] MEDS ORDERED: MEPERIDINE 50 MG/ML SYRINGE ONE (07:35)
[2016-09-04] MEDS ORDERED: LIDOCAINE 1% INJ 10MG/ML (20 ML MDV) ONE (07:35)
[2016-09-04] MEDS ORDERED: PROPOFOL 10 MG/ML 20 ML VIAL IV ONE (07:35)
[2016-09-04] MEDS ORDERED: MIDAZOLAM 2 MG/2 ML VIAL ONE (07:35)
--- NOTE | 2016-09-04 07:47 | P.GSHP ---
History of Present Illness H&P Date: 09/04/16 Chief Complaint: Peptic ulcer disease This a 65-year-old female who presents today for EGD. She's had issues with peptic ulcers the past. Patient has complaints of epigastric abdominal pain. Past Medical History Past Medical History: Diabetes Mellitus, Fibromyalgia, GERD/Reflux Additional Past Medical History / Comment(s): Idiopathic thrombocytopenia purpura, IBS, diverticulitis, hiatal hernia, 2 herniated discs-L3/L4, RLS, gastritis, superficial gastric ulcers History of Any Multi-Drug Resistant Organisms: None Reported Past Surgical History: Adenoidectomy, Bladder Surgery, Bowel Resection, Cholecystectomy, Hernia Repair, Hysterectomy, Tonsillectomy Additional Past Surgical History / Comment(s): BLADDER SUSPENSION x 2, breast biopsy, bowel resection due to rupture, Past Anesthesia/Blood Transfusion Reactions: No Reported Reaction Additional Past Anesthesia/Blood Transfusion Reaction / Comment(s): Pt received blood in 2005 due to ITP without reaction. Past Psychological History: No Psychological Hx Reported Additional Psychological History / Comment(s): . Smoking Status: Current every day smoker Past Alcohol Use History: None Reported Additional Past Alcohol Use History / Comment(s): STARTED SMOKING AT AGE 18- SMOKES 1PPD Past Drug Use History: None Reported - Past Family History Mother Family Medical History: Cancer, Diabetes Mellitus Additional Family Medical History / Comment(s): Father had a defibrillator. He of heart dx in his 80's Medications and Allergies Home Medications Medication Instructions Recorded Confirmed Type Loperamide [Imodium] 2 mg PO Q8HR PRN 04/04/14 09/04/16 History Insulin Aspart [NovoLOG Flexpen] See Protocol SQ PC-TID 08/02/15 09/01/16 History ALPRAZolam 0.25 mg PO BID PRN 11/03/15 09/04/16 History Insulin Detemir [Levemir] 20 unit SQ BID 11/09/15 09/01/16 History Solifenacin Succinate [Vesicare] 10 mg PO HS 04/12/16 09/04/16 History rOPINIRole HCL [Requip] 0.25 mg PO HS 04/12/16 09/04/16 History Allergies Allergy/AdvReac Type Severity Reaction Status Date / Time aspirin AdvReac Severe Hx of Verified 09/04/16 07:06 Perforated Bowel. Does not want. Surgical - Exam Vital Signs Temp Pulse Resp BP Pulse Ox 97.0 F L 90 18 115/65 98 09/04/16 07:11 09/04/16 07:11 09/04/16 07:11 09/04/16 07:11 09/04/16 07:11 - General well developed, no distress - Eyes PERRL - ENT normal pinna - Neck no masses - Respiratory normal expansion - Cardiovascular Rhythm: regular - Abdomen Abdomen: soft, non tender Results - Labs Abnormal Lab Results - Last 24 Hours (Table) 09/04/16 Range/Units 07:15 POC Glucose (mg/dL) 253 H (75-99) mg/dL Assessment and Plan Plan: Peptic ulcer disease. We'll perform EGD.
--- NOTE | 2016-09-04 07:55 | P.OP ---
Date of Procedure: 09/04/16 Preoperative Diagnosis: Peptic ulcer disease Postoperative Diagnosis: Antral gastritis Mild esophagitis Procedure(s) Performed: EGD Implants: Anesthesia: MAC Surgeon: Ricci Fang Pathology: other (Antrum, esophagus) Condition: stable Disposition: PACU Indications for Procedure: Operative Findings: Description of Procedure: The patient's placed on the endoscopy table in the lateral position. She received IV sedation. The gastroscope some placed oropharynx passed in the esophagus and stomach. Scope was then placed through the pylorus. The first and second portion of duodenum appeared normal. Scope was then brought back the antrum this appeared mildly inflamed. A biopsies was performed. Scope was unretroflexed and remainder stomach appeared normal. There is no significant hiatal hernia. The GE junction was at 40 cm. The distal esophagus appeared mildly inflamed a biopsies performed. The proximal esophagus appeared normal. Scope was withdrawn for patient.
[2016-09-04] MEDS ORDERED: MEPERIDINE 50 MG/ML SYRINGE IVP STA (08:25)
[2016-09-04 09:09] VITALS: BP 108/62; PULSE 92
== END 2016-09-04 09:23 | disposition home or self-care (01) ==
LOC: ORWHC2ENDO 06:37
PROVIDERS: ATTEND Surgery
DX: K29.50 Unspecified chronic gastritis without bleeding (principal); K21.0 Gastro-esophageal reflux disease with esophagitis; E11.9 Type 2 diabetes mellitus without complications; M79.7 Fibromyalgia; J44.9 Chronic obstructive pulmonary disease, unspecified; F17.200 Nicotine dependence, unspecified, uncomplicated; Z79.4 Long term (current) use of insulin; Z79.899 Other long term (current) drug therapy; Z88.6 Allergy status to analgesic agent; Z87.11 Personal history of peptic ulcer disease
CPT/HCPCS: 88305; 43239; J2250; J2175; J2001; J2704

== ENCOUNTER 2016-10-17 07:24 | Day surgery (SDC) | payer MEDICARE, OTHER ==
[2016-10-10 11:58] VITALS: BMI 23.8
[~2016-10-17 07:24] MED LIST changes: +FAMOTIDINE 20 MG/2 ML VIAL IV PRN; +HEPARIN SODIUM,PORCINE 5,000 UNIT/ML 1 ML VIAL SQ ONE; +LIDOCAINE 1% 20 ML VIAL (10MG/ML) FOR IV START INTRADERMA PRN; +SCOPOLAMINE 1.5MG/72HR PATCH TRANSDERM ONE
--- NOTE | 2016-10-17 07:54 | P.GSHP ---
History of Present Illness H&P Date: 10/17/16 Chief Complaint: Abdominal pain This is a 58-year-old female who's had chronic issues with epigastric abdominal pain. She presents today for diagnostic laparoscopy with lysis of adhesions. Patient's aware the risks of surgery including conversion to the open procedure and injury to the stomach liver spleen, is also aware the risk of possible bowel injury. Past Medical History Past Medical History: Diabetes Mellitus, Fibromyalgia, GERD/Reflux Additional Past Medical History / Comment(s): Idiopathic thrombocytopenia purpura, IBS, diverticulitis, hiatal hernia, 2 herniated discs-L3/L4, Restless Leg Syndrome, gastritis, superficial gastric ulcers. History of Any Multi-Drug Resistant Organisms: None Reported Past Surgical History: Adenoidectomy, Bladder Surgery, Bowel Resection, Cholecystectomy, Hernia Repair, Hysterectomy, Tonsillectomy Additional Past Surgical History / Comment(s): BLADDER SUSPENSION x 2, breast biopsy, bowel resection due to rupture. Past Anesthesia/Blood Transfusion Reactions: No Reported Reaction Additional Past Anesthesia/Blood Transfusion Reaction / Comment(s): Pt received blood in 2005 due to ITP without reaction. Past Psychological History: No Psychological Hx Reported Smoking Status: Current every day smoker Past Alcohol Use History: None Reported Additional Past Alcohol Use History / Comment(s): STARTED SMOKING AT AGE 18- SMOKES 1PPD Past Drug Use History: None Reported - Past Family History Mother Family Medical History: Cancer, Diabetes Mellitus Additional Family Medical History / Comment(s): Father had a defibrillator. He of heart dx in his 80's Medications and Allergies Home Medications Medication Instructions Recorded Confirmed Type Loperamide [Imodium] 2 mg PO Q8HR PRN 04/04/14 10/17/16 History Insulin Aspart [NovoLOG Flexpen] See Protocol SQ PC-TID 08/02/15 10/17/16 History ALPRAZolam 0.25 mg PO BID PRN 11/03/15 10/17/16 History Insulin Detemir [Levemir] 30 unit SQ BID 11/09/15 10/17/16 History Solifenacin Succinate [Vesicare] 10 mg PO HS 04/12/16 10/17/16 History rOPINIRole HCL [Requip] 0.25 mg PO HS 04/12/16 10/17/16 History Omeprazole 20 mg PO QAM 10/10/16 10/17/16 History Allergies Allergy/AdvReac Type Severity Reaction Status Date / Time aspirin AdvReac Severe Hx of Verified 10/17/16 07:45 Perforated Bowel. Does not want. Surgical - Exam - General well developed, no distress - Eyes PERRL - ENT normal pinna - Neck no masses - Respiratory normal expansion - Cardiovascular Rhythm: regular - Abdomen Mild epigastric pain Abdomen: soft Assessment and Plan Plan: Chronic abdominal pain. We'll perform laparoscopic lysis of adhesion.
[2016-10-17] MEDS: ONDANSETRON 4 MG/2 ML VIAL IVP ONE ×2 (08:04→09:35)
[2016-10-17] MEDS ORDERED: INSULIN LISPRO (humaLOG) 300 UNIT/3 ML VIAL SQ ONE (08:10)
[2016-10-17 08:14] LABS: Glucose,Whole Blood 268 mg/dL (75-99)
[2016-10-17] MEDS ORDERED: BUPIVACAIN-EPI 0.25%-1:200,000 30 ML VIAL SQ ONE ×2 (08:27→08:49)
[2016-10-17] MEDS ORDERED: GLYCOPYRROLATE 0.2 MG/ML 2 ML VIAL ONE (08:30)
[2016-10-17] MEDS: ceFAZolin 2 GM in SODIUM CHLORIDE 0.9% 100 ML IVPB ONE ×2 (08:30→08:36)
[2016-10-17] MEDS ORDERED: ROCURONIUM BROMIDE 10 MG/ML 10 ML VIAL IV ONE (08:30)
[2016-10-17] MEDS ORDERED: MIDAZOLAM 2 MG/2 ML VIAL ONE (08:30)
[2016-10-17] MEDS ORDERED: ePHEDrine 50 MG/ML 1 ML AMP ONE (08:30)
[2016-10-17] MEDS ORDERED: PROPOFOL 10 MG/ML 20 ML VIAL IV ONE (08:30)
[2016-10-17] MEDS ORDERED: KETOROLAC 30 MG/ML 1 ML VIAL ONE (08:30)
[2016-10-17] MEDS ORDERED: NEOSTIGMINE 1 MG/ML 10 ML VIAL ONE (08:30)
[2016-10-17] MEDS ORDERED: fentaNYL (PF) 50 MCG/ML 2 ML AMP ONE (08:30)
[2016-10-17] MEDS ORDERED: SUCCINYLCHOLINE CHLORIDE 100 MG/5 ML SYR IV ONE (08:30)
[2016-10-17] MEDS ORDERED: LIDOCAINE 1% INJ 10MG/ML (20 ML MDV) ONE (08:30)
--- NOTE | 2016-10-17 09:18 | P.OP ---
Date of Procedure: 10/17/16 Preoperative Diagnosis: Adhesions Postoperative Diagnosis: Adhesions Procedure(s) Performed: Laparoscopic lysis of adhesions Implants: Anesthesia: SONYA Surgeon: Ricci Fang Estimated Blood Loss (ml): 5 Pathology: none sent Condition: stable Disposition: PACU Indications for Procedure: Operative Findings: Description of Procedure: Patient's placed the operative table in the supine position. She received general anesthesia. Her abdomen was prepped and draped usual sterile fashion. Using 11 blade the skin was incised left quadrant and using a Veress needle the peritoneal cavity is entered. The abdomen then insufflated CO2. After adequate insufflation a 5 mm blade less trocar was placed under direct vision into the perineal cavity. And then another fibrillar trocar is placed in the left lower quadrant and another 5 mm trochars placed in the left lateral position. The patient's placed in the left side up position. There were extensive adhesions noted along the upper midline area. These were photographed and then lysed using sharp dissection with cautery. All the adhesions in the epigastric and right upper quadrant area were lysed. There is no bleeding seen. The trochars withdrawn. Skin was closed interrupted 3-0 Monocryl suture. Dermabond was applied. Patient top procedure well and was sent to recovery in stable condition.
[2016-10-17 09:31] VITALS: TEMP 97.2
[2016-10-17] MEDS: HYDROmorphone 1 MG/ML 1 ML SYRINGE IVP PRN ×4 (09:35→10:08)
[2016-10-17 09:47] LABS: Glucose,Whole Blood 218 mg/dL (75-99)
[2016-10-17 10:36] VITALS: RESP 18
[2016-10-17 11:19] VITALS: BP 119/53; PULSE 86
== END 2016-10-17 11:34 | disposition home or self-care (01) ==
LOC: OR 07:24
PROVIDERS: ATTEND Surgery
DX: K66.0 Peritoneal adhesions (postprocedural) (postinfection) (principal); E11.9 Type 2 diabetes mellitus without complications; M79.7 Fibromyalgia; K21.9 Gastro-esophageal reflux disease without esophagitis; D69.6 Thrombocytopenia, unspecified; K58.9 Irritable bowel syndrome, unspecified; G25.81 Restless legs syndrome; K29.70 Gastritis, unspecified, without bleeding; K44.9 Diaphragmatic hernia without obstruction or gangrene; K25.9 Gastric ulcer, unspecified as acute or chronic, without hemorrhage or perforation; F17.200 Nicotine dependence, unspecified, uncomplicated; Z79.4 Long term (current) use of insulin; Z79.899 Other long term (current) drug therapy
CPT/HCPCS: 49329; J2250; J1644; J2710; J0690; J2405; J2001; J3010; J1885; J1170; J0330; J2704

== ENCOUNTER 2017-06-26 18:24 | Observation (INO) | payer MEDICARE, OTHER ==
[2017-06-26 19:15] LABS: Basophils # (A) 0.1 k/uL (0-0.2); Basophils % (A) 0 %; Eosinophils % (A) 0 %; HCT 47.2 % (34.0-46.0); HGB 15.6 gm/dL (11.4-16.0); Lymphocytes # (A) 2.6 k/uL (1.0-4.8); Lymphocytes % (A) 19 %; MCH 27.9 pg (25.0-35.0); MCV 84.8 fL (80.0-100.0); Mean Platelet Volume 8.4; Monocytes # (A) 1.2 k/uL (0-1.0); Monocytes % (A) 9 %; Neutrophils # (A) 9.5 k/uL (1.3-7.7); Neutrophils % (A) 71 %; Platelet Count 292 k/uL (150-450); RBC 5.56 m/uL (3.80-5.40); RDW 13.4 % (11.5-15.5); WBC 13.4 k/uL (3.8-10.6)
--- NOTE | 2017-06-26 19:20 | XR ---
EXAMINATION TYPE: XR chest 2V DATE OF EXAM: 06/26/2017 COMPARISON: 01/30/2017 HISTORY: Epigastric pain with history of hiatal hernia. TECHNIQUE: Frontal and lateral views of the chest are obtained. FINDINGS: There is no focal air space opacity, pleural effusion, or pneumothorax seen. The cardiac silhouette size is within normal limits. The osseous structures are intact. Pulmonary hyperinflatio n may be in the basis of degree of inspiration or underlying COPD. IMPRESSION: No acute cardiopulmonary process.
[2017-06-26 19:33] LABS: Albumin 4.1 g/dL (3.5-5.0); Calcium 9.9 mg/dL (8.4-10.2); Magnesium 1.7 mg/dL (1.6-2.3); Potassium 3.7 mmol/L (3.5-5.1); Total Bilirubin 0.4 mg/dL (0.2-1.3); Total Protein 6.8 g/dL (6.3-8.2)
[2017-06-26 19:35] LABS: Creatine Kinase 61 U/L (30-135); Prothrombin Time 9.9 sec (9.0-12.0)
--- NOTE | 2017-06-26 19:37 | ED ---
General Adult HPI - General Chief complaint: Chest Pain Stated complaint: vomiting/dizziness Time Seen by Provider: 06/26/17 19:24 Source: patient, RN notes reviewed, old records reviewed Mode of arrival: ambulatory Limitations: no limitations - History of Present Illness Initial comments: This is a 58-year-old female the ER for evaluation of chest pain history of heart disease, history of multiple surgical issues and abdominal issues. Patient feels nauseous, but started to chest pain shortness of breath last night. Chest pain has continued, she is unsure of her hiatal hernia or other issue. Patient did have heart attack with stent placement back in December. No significant testing since. Patient is continued to complain of pain, no diaphoresis. - Related Data Home Medications Medication Instructions Recorded Confirmed Loperamide [Imodium] 2 mg PO Q8HR PRN 04/04/14 06/26/17 Insulin Aspart [NovoLOG Flexpen] See Protocol SQ PC-TID 08/02/15 06/26/17 ALPRAZolam 0.25 mg PO BID PRN 11/03/15 06/26/17 Insulin Detemir [Levemir] 30 unit SQ BID 11/09/15 06/26/17 Solifenacin Succinate [Vesicare] 10 mg PO HS 04/12/16 06/26/17 rOPINIRole HCL [Requip] 0.25 mg PO HS 04/12/16 06/26/17 HYDROcodone/APAP 7.5-325MG [Dalton 1 tab PO Q4H PRN 01/14/17 06/26/17 7.5-325] Pantoprazole [Protonix] 40 mg PO DAILY 01/14/17 06/26/17 Clopidogrel Bisulfate [Plavix] 75 mg PO DAILY 06/26/17 06/26/17 Previous Rx's Medication Instructions Recorded Aspirin 81 mg PO DAILY chew 01/17/17 Atorvastatin [Lipitor] 80 mg PO HS #30 tab 01/17/17 Metoprolol Tartrate [Lopressor] 25 mg PO BID #60 tab 01/17/17 Nitroglycerin Sl Tabs [Nitrostat] 0.4 mg SUBLINGUAL Q5M PRN #21 tab 01/17/17 Spironolactone [Aldactone] 25 mg PO DAILY #30 tab 01/17/17 Allergies Allergy/AdvReac Type Severity Reaction Status Date / Time ticagrelor [From Brilinta] Allergy S.O.B Verified 06/26/17 19:21 aspirin AdvReac Severe Hx of Verified 06/26/17 19:20 Perforated Bowel. Does not want. Review of Systems ROS Statement: Those systems with pertinent positive or pertinent negative responses have been documented in the HPI. ROS Other: All systems not noted in ROS Statement are negative. Past Medical History Past Medical History: Diabetes Mellitus, Fibromyalgia, GERD/Reflux Additional Past Medical History / Comment(s): Idiopathic thrombocytopenia purpura, IBS, diverticulitis, hiatal hernia, 2 herniated discs-L3/L4, Restless Leg Syndrome, gastritis, superficial gastric ulcers. History of Any Multi-Drug Resistant Organisms: None Reported Past Surgical History: Adenoidectomy, Bladder Surgery, Bowel Resection, Cholecystectomy, Hernia Repair, Hysterectomy, Tonsillectomy Additional Past Surgical History / Comment(s): BLADDER SUSPENSION x 2, breast biopsy, bowel resection due to rupture. Past Anesthesia/Blood Transfusion Reactions: No Reported Reaction Additional Past Anesthesia/Blood Transfusion Reaction / Comment(s): Pt received blood in 2005 due to ITP without reaction. Past Psychological History: Anxiety Smoking Status: Current every day smoker Past Alcohol Use History: None Reported Past Drug Use History: None Reported - Past Family History Mother Family Medical History: Cancer, Diabetes Mellitus Additional Family Medical History / Comment(s): Father had a defibrillator. He of heart dx in his 80's General Exam Limitations: no limitations General appearance: alert, in no apparent distress Head exam: Present: atraumatic, normocephalic, normal inspection Eye exam: Present: normal appearance, PERRL, EOMI. Absent: scleral icterus, conjunctival injection, periorbital swelling ENT exam: Present: normal exam, mucous membranes moist Neck exam: Present: normal inspection. Absent: tenderness, meningismus, lymphadenopathy Respiratory exam: Present: normal lung sounds bilaterally. Absent: respiratory distress, wheezes, rales, rhonchi, stridor Cardiovascular Exam: Present: regular rate, normal rhythm, normal heart sounds. Absent: systolic murmur, diastolic murmur, rubs, gallop, clicks GI/Abdominal exam: Present: soft, normal bowel sounds. Absent: distended, tenderness, guarding, rebound, rigid Extremities exam: Present: normal inspection, full ROM, normal capillary refill. Absent: tenderness, pedal edema, joint swelling, calf tenderness Back exam: Present: normal inspection Neurological exam: Present: alert, oriented X3, CN II-XII intact Psychiatric exam: Present: normal affect, normal mood Skin exam: Present: warm, dry, intact, normal color. Absent: rash Course Vital Signs 06/26/17 06/26/17 06/26/17 18:26 20:01 20:46 Temperature 97.6 F Pulse Rate 113 H 100 98 Respiratory 22 18 18 Rate Blood Pressure 108/56 101/58 115/55 O2 Sat by Pulse 94 L 94 L 97 Oximetry 06/26/17 21:37 Temperature Pulse Rate 96 Respiratory 18 Rate Blood Pressure 95/51 O2 Sat by Pulse 93 L Oximetry - Reevaluation(s) Reevaluation #1: 06/26/17 22:21 Patient does have continued chest pain with nausea, mildly improvement pain control Reevaluation #2: 06/26/17 22:21 Medical record is reviewed with is significant for heart disease EKG Findings - EKG Comments: EKG Findings:: EKG shows sinus tachycardia rate 103, DC 144, QRS 90, QTC 508 Medical Decision Making - Medical Decision Making 58 female ER prevention chest pain. Anterior chest with nausea. History of heart disease. Patient be kept in cardiac observation. - Lab Data Result diagrams: 06/26/17 19:03 06/26/17 19:03 Lab Results 06/26/17 06/26/17 06/26/17 Range/Units 19:03 19:03 19:03 WBC 13.4 H (3.8-10.6) k/uL RBC 5.56 H (3.80-5.40) m/uL Hgb 15.6 (11.4-16.0) gm/dL Hct 47.2 H (34.0-46.0) % MCV 84.8 (80.0-100.0) fL MCH 27.9 (25.0-35.0) pg MCHC 33.0 (31.0-37.0) g/dL RDW 13.4 (11.5-15.5) % Plt Count 292 (150-450) k/uL Neutrophils % 71 % Lymphocytes % 19 % Monocytes % 9 % Eosinophils % 0 % Basophils % 0 % Neutrophils # 9.5 H (1.3-7.7) k/uL Lymphocytes # 2.6 (1.0-4.8) k/uL Monocytes # 1.2 H (0-1.0) k/uL Eosinophils # 0.0 (0-0.7) k/uL Basophils # 0.1 (0-0.2) k/uL PT (9.0-12.0) sec INR (<1.2) APTT (22.0-30.0) sec D-Dimer (<0.60) mg/L FEU Sodium 136 L (137-145) mmol/L Potassium 3.7 (3.5-5.1) mmol/L Chloride 88 L (98-107) mmol/L Carbon Dioxide 31 H (22-30) mmol/L Anion Gap 17 mmol/L BUN 25 H (7-17) mg/dL Creatinine 1.10 H (0.52-1.04) mg/dL Est GFR (CKD-EPI)AfAm 60 (>60 ml/min/1.73 sqM) Est GFR (CKD-EPI)NonAf 52 (>60 ml/min/1.73 sqM) Glucose 362 H (74-99) mg/dL Calcium 9.9 (8.4-10.2) mg/dL Magnesium 1.7 (1.6-2.3) mg/dL Total Bilirubin 0.4 (0.2-1.3) mg/dL AST 20 (14-36) U/L ALT 34 (9-52) U/L Alkaline Phosphatase 146 H (38-126) U/L Total Creatine Kinase 61 (30-135) U/L CK-MB (CK-2) 1.5 (0.0-2.4) ng/mL CK-MB (CK-2) Rel Index 2.5 Troponin I <0.012 (0.000-0.034) ng/mL Total Protein 6.8 (6.3-8.2) g/dL Albumin 4.1 (3.5-5.0) g/dL Lipase (23-300) U/L 06/26/17 06/26/17 06/26/17 Range/Units 19:03 19:03 19:03 WBC (3.8-10.6) k/uL RBC (3.80-5.40) m/uL Hgb (11.4-16.0) gm/dL Hct (34.0-46.0) % MCV (80.0-100.0) fL MCH (25.0-35.0) pg MCHC (31.0-37.0) g/dL RDW (11.5-15.5) % Plt Count (150-450) k/uL Neutrophils % % Lymphocytes % % Monocytes % % Eosinophils % % Basophils % % Neutrophils # (1.3-7.7) k/uL Lymphocytes # (1.0-4.8) k/uL Monocytes # (0-1.0) k/uL Eosinophils # (0-0.7) k/uL Basophils # (0-0.2) k/uL PT 9.9 (9.0-12.0) sec INR 1.0 (<1.2) APTT 20.9 L (22.0-30.0) sec D-Dimer 0.71 H (<0.60) mg/L FEU Sodium (137-145) mmol/L Potassium (3.5-5.1) mmol/L Chloride (98-107) mmol/L Carbon Dioxide (22-30) mmol/L Anion Gap mmol/L BUN (7-17) mg/dL Creatinine (0.52-1.04) mg/dL Est GFR (CKD-EPI)AfAm (>60 ml/min/1.73 sqM) Est GFR (CKD-EPI)NonAf (>60 ml/min/1.73 sqM) Glucose (74-99) mg/dL Calcium (8.4-10.2) mg/dL Magnesium (1.6-2.3) mg/dL Total Bilirubin (0.2-1.3) mg/dL AST (14-36) U/L ALT (9-52) U/L Alkaline Phosphatase (38-126) U/L Total Creatine Kinase (30-135) U/L CK-MB (CK-2) (0.0-2.4) ng/mL CK-MB (CK-2) Rel Index Troponin I (0.000-0.034) ng/mL Total Protein (6.3-8.2) g/dL Albumin (3.5-5.0) g/dL Lipase 77 (23-300) U/L - Radiology Data Radiology results: report reviewed (CTA chest shows negative PE, no aortic issue , CT of the pelvis shows possible ileus), image reviewed Critical Care Time Critical Care Time: Yes Total Critical Care Time: 31 Disposition Clinical Impression: Chest pain Disposition: ADMITTED IP TO THIS HOSP Condition: Undetermined Referrals: Nick Brock MD [Primary Care Provider] - 1-2 days
[2017-06-26 19:40] LABS: Partial Thromboplastin Time 20.9 sec (22.0-30.0)
[2017-06-26 19:48] LABS: Creatine Kinase MB 1.5 ng/mL (0.0-2.4); Troponin I <0.012 ng/mL (0.000-0.034)
[2017-06-26] MEDS ORDERED: RX INFO: IV CONTRAST WAS GIVEN 1 EACH MISC MISCELLANE PRN (20:23)
[2017-06-26] MEDS ORDERED: ONDANSETRON 4 MG/2 ML VIAL IVP STA (20:23)
[2017-06-26] MEDS ORDERED: MORPHINE SULFATE 4MG/4ML SYRG IVP STA (20:23)
[2017-06-26] MEDS ORDERED: PANTOPRAZOLE 40 MG/10 ML VIAL IVP STA (20:23)
--- NOTE | 2017-06-26 21:48 | CT ---
EXAMINATION TYPE: CT angio chest DATE OF EXAM: 06/26/2017 COMPARISON: NONE HISTORY: Chest pain, abdominal pain, dizziness, nausea, and vomiting. CT DLP: 175.6 mGycm. Automated Exposure Control for Dose Reduction was Utilized. CONTRAST: CTA scan of the thorax is performed with IV Contrast, patient injected with 80 mL of Isovue 370, pulm onary embolism protocol. MIP Images are created on CT scanner and reviewed. FINDINGS: LUNGS: There is biapical pleural-parenchymal thickening and moderate centrilobular as well as parasep pamela emphysematous changes of the lungs. Left upper lobe pulmonary nodule measures 0.9 x 1.1 cm on ser ies 3 image 41. Scarring is seen within the right middle lobe peripherally and subpleural reticulatio n is noted along the right lower lung. Subpleural bleb is seen near the interlobar fissure of the surjit gula and left lower lobe. No focal consolidation, pleural effusion or pneumothorax. MEDIASTINUM: There is satisfactory enhancement of the pulmonary artery and its branches, there is no CT evidence for pulmonary embolism. There are no greater than 1 cm hilar or mediastinal lymph nodes. No cardiomegaly or pericardial effusion is seen. Severe three-vessel coronary artery calcification s are noted. OTHER: There is circumferential distal and mid esophageal mucosal thickening in a long segment sugges tive of esophagitis. Central right breast mass, slightly lateral measures 1.8 cm on series 2 image 65 . IMPRESSION: 1. No evidence of pulmonary embolus. 2. Left upper lobe suspicious pulmonary nodule for which PET CT could be performed given its size of 1.1 cm. This is superimposed upon moderate centrilobular and paraseptal emphysematous disease, deemin g this patient high risk. 3. Central, slightly lateral 1.8 cm right breast mass for which diagnostic mammography is recommended if not recently performed. 4. Circumferential long segment mid to distal esophageal thickening most suggestive of esophagitis. 5. Severe three-vessel coronary artery calcifications, marker of coronary artery disease.
--- NOTE | 2017-06-26 21:58 | CT ---
EXAMINATION TYPE: CT abdomen pelvis w con DATE OF EXAM: 06/26/2017 HISTORY: Chest pain, abdominal pain, dizziness, nausea, and vomiting. CT DLP: 1319.2mGycm Automated Exposure Control for Dose Reduction was Utilized. CONTRAST: CT scan of the abdomen and pelvis is performed with IV Contrast, patient injected with 80 mL of Isovu e 370. COMPARISON: 11/03/2015. FINDINGS: LUNG BASES: Discussed on the CT thorax dictation of the same date. LIVER/GB: There is surgical absence of the gallbladder and mild intrahepatic biliary ductal dilatatio n, possibly related to the surgical absence of gallbladder with dilatation of the extrahepatic biliar y ductal, also likely postsurgical. PANCREAS: Within the pancreatic head there is ar 6 mm focal lesion on series 6 image 32 that is hypoa ttenuated. The main pancreatic duct is prominent but nonenlarged. No peripancreatic fat stranding, pa ncreatic parenchymal calcifications, or abnormal pancreatic enhancement other than that after mention ed 6 mm pancreatic head lesion. SPLEEN: No significant abnormality is seen. ADRENALS: There is an indeterminate left adrenal gland nodule measuring 2.0 cm. This contains a few p unctate calcifications. Further evaluation is recommended although this retrospectively appears low-d ensity in the prior exam and could represent an adenoma. Right adrenal gland is unremarkable. KIDNEYS: Overall stable approximately 3.7 cm left renal cyst is again seen with smaller subcentimeter too small to accurately characterize bilateral hypoattenuated renal lesions. BOWEL: There is mild dilatation of the proximal duodenum, likely related to peristalsis as it measure s 3.9 cm. Distally there a few loops of small bowel containing air-fluid levels and small bowel feces sign indicative of increased transit time/ileus/stasis. Few scattered colonic diverticula are seen w ithout pericolonic fat stranding. No evidence of large bowel dilatation. Appendix is within normal li mits. Anastomotic site is seen of the rectosigmoid junction. UTERUS/ADNEXA: Uterus appears surgically absent. LYMPH NODES: No greater than 1cm abdominal or pelvic lymph nodes are appreciated. OSSEOUS STRUCTURES: Osseous structures are grossly intact. Moderate multilevel degenerative changes o f the spine are seen. Moderate atherosclerosis is seen of the abdominal aorta and its branches. IMPRESSION: 1. Few nondilated prominent loops of small bowel containing air-fluid levels and small bowel feces si gn indicative of increased transit time/small bowel ileus. 2. Indeterminate left adrenal gland nodule for which full evaluation with dynamic contrast-enhanced C T abdomen is recommended (adrenal mass protocol). 3. 6 mm pancreatic head lesion for which MRCP is recommended.
[2017-06-26] MEDS ORDERED: HEPARIN SODIUM,PORCINE 5,000 UNIT/ML 1 ML VIAL IV PRN (22:19)
[2017-06-26] MEDS ORDERED: NITROGLYCERIN SL TABS 0.4 MG TAB SUBLINGUAL PRN (22:19)
[2017-06-26] MEDS ORDERED: MORPHINE ORAL SOLN 10 MG/5 ML CUP PO PRN (22:19)
[2017-06-26] MEDS ORDERED: HEPARIN SODIUM,PORCINE 5,000 UNIT/ML 1 ML VIAL IV ONE (22:19)
[2017-06-26] MEDS ORDERED: HEPARIN SOD,PORK IN 0.45% NACL 25,000 UNIT in 0.45% NACL 1 500ML.BAG IV SCH (22:30)
[2017-06-27] MEDS ORDERED: MORPHINE SULFATE 4MG/4ML SYRG IVP PRN (00:26)
[2017-06-27] MEDS ORDERED: SODIUM CHLORIDE 0.9% 1,000 ML IV ONE (02:02)
[2017-06-27] MEDS ORDERED: KETOROLAC 30 MG/ML 1 ML VIAL IVP STA (02:02)
[2017-06-27 02:07] LABS: Creatine Kinase 56 U/L (30-135)
[2017-06-27 02:20] LABS: Creatine Kinase MB 1.4 ng/mL (0.0-2.4); Troponin I <0.012 ng/mL (0.000-0.034)
[2017-06-27 03:01] VITALS: RESP 16
[2017-06-27 03:05] VITALS: BMI 21.9
[2017-06-27] MEDS ORDERED: MORPHINE SULF 5MG/10ML VL IVP PRN (03:17)
[2017-06-27 06:44] LABS: Glucose,Whole Blood 199 mg/dL (75-99)
[2017-06-27 07:17] LABS: Mean Platelet Volume 7.5; Platelet Count 206 k/uL (150-450)
[2017-06-27 07:37] LABS: Cholesterol 116 mg/dL (<200); HDL Cholesterol 24 mg/dL (40-60); LDL Cholesterol,Calculated 35 mg/dL (0-99); Triglycerides 283 mg/dL (<150)
[2017-06-27 07:46] LABS: Creatine Kinase 61 U/L (30-135)
[2017-06-27 08:00] LABS: Creatine Kinase MB 1.9 ng/mL (0.0-2.4); Troponin I <0.012 ng/mL (0.000-0.034)
[2017-06-27] MEDS ORDERED: HYDROcodone/APAP 7.5-325MG 1 EACH TAB PO PRN (09:34)
[2017-06-27] MEDS ORDERED: LOPERAMIDE 2 MG CAP PO PRN (09:34)
[2017-06-27] MEDS ORDERED: NITROGLYCERIN SL TABS 0.4 MG TAB SUBLINGUAL PRN (09:34)
[2017-06-27] MEDS ORDERED: ALPRAZolam 0.25 MG TAB PO PRN (09:34)
[2017-06-27] MEDS ORDERED: ASPIRIN 81 MG PO SCH (09:45)
[2017-06-27] MEDS ORDERED: METOPROLOL TARTRATE 25 MG TAB PO SCH (09:45)
[2017-06-27] MEDS ORDERED: SPIRONOLACTONE 25 MG TAB PO SCH (09:45)
[2017-06-27] MEDS ORDERED: PANTOPRAZOLE 40 MG TABLET PO SCH (09:45)
[2017-06-27] MEDS ORDERED: CLOPIDOGREL 75 MG TAB PO SCH (09:45)
--- NOTE | 2017-06-27 10:45 | CONS ---
CONSULTATION Neeru Dow is a 66-year-old female who presents with epigastric and abdominal discomfort and was admitted for chest pain evaluation. She has a history of coronary artery disease and coronary stenting to the LAD last year. However, the patient clearly states that last year she felt as something was heavy in her chest and something heavy was sitting on the chest and this time her admission is for a totally different symptom. She has burning epigastric discomfort and abdominal discomfort and tenderness and then the burning discomfort goes up into her throat, but she feels as if there is her hiatus hernia and is completely different from the symptom she experienced last year which she had prior to the stent. In fact, when we examined her abdomen, she is tender in the epigastrium. PAST HISTORY: Past history of coronary artery disease, coronary stenting in December. MEDICATIONS: Medications include insulin, Plavix, aspirin, atorvastatin, metoprolol, spironolactone. ALLERGIES: She is allergic to BRIL[place]TA. She says she has an intolerance to ASPIRIN and refuses ASPIRIN. REVIEW OF SYSTEMS: No fever, chills, or rigors. No cough or expectoration. No nausea, vomiting, or diarrhea. No hematuria or dysuria. No strokes or seizures. No skin lesions or musculoskeletal complaints. She has epigastric and abdominal discomfort. PAST HISTORY: Past history of ITP, IBS, restless legs syndrome, gastritis, and diverticulitis. PAST SURGICAL HISTORY: Past surgery of adenoidectomy, bladder surgery, bowel resection, cholecystectomy, hernia repair, hysterectomy, tonsillectomy, and bladder suspension. She has had blood transfusions, she received them in 2005 for ITP. Her 12-lead ECG at this time shows sinus rhythm with normal ST segments, normal P waves in the inferior leads. She had a chest CT which showed no evidence of pulmonary embolism. Left upper lobe nodule was noted. A circumferential long segment of mid to distal esophageal thickening suggestive of esophagitis was noted. Coronary calcifications were noted as expected. PHYSICAL EXAMINATION: On examination, she is afebrile 98.6 degrees Fahrenheit, pulse rate is in the 60s to 70s, respirations are normal. Head and neck examination is normal. Heart sounds are normal. Breath sounds are clear. No rhonchi, no crackles. Epigastric tenderness is noted. Abdominal tenderness is noted. Extremities are warm, no edema. The labs are reviewed. Her cardiac enzymes are normal x3. IMPRESSION: 1. Epigastric and abdominal symptoms with normal cardiac enzymes and normal ECG and very different from her symptoms in December last year. 2. Known coronary artery disease, status post coronary artery stenting. The patient refuses aspirin. She is otherwise on Plavix and statins. SUGGEST: 1. GI workup. 2. Continue dual antiplatelet therapy and statins and 2-D echo and Doppler study to assess cardiac structure and function. 3. The CT scan suggest thickening of the esophagus, which is consistent with her symptoms of burning discomfort going up to her throat. MMODL / IJN: [id number] /
[2017-06-27 12:15] LABS: Glucose,Whole Blood 262 mg/dL (75-99)
[2017-06-27] MEDS ORDERED: SODIUM CHLORIDE 0.9% 1,000 ML IV SCH (12:30)
[2017-06-27] MEDS: INSULIN ASPART 100 UNIT/ML 1 ML 10 ML VIAL SQ SCH ×2 (12:54→18:19)
--- NOTE | 2017-06-27 13:00 | HP ---
HISTORY AND PHYSICAL DATE OF ADMISSION: 06/26/2017 PRESENTING COMPLAINT: Nausea, vomiting, epigastric pain. HISTORY OF PRESENTING COMPLAINT: This is a very pleasant 66-year-old patient. Patient has rather extensive medical history. Chronic stable medical conditions include diabetes mellitus type 2, fibromyalgia, L3-L4 herniated discs, restless legs syndrome, fatty liver. Patient in the past has had a perforated ulcer from what she describes. Patient was here in December with an ST-elevation myocardial infarction with stent to the LAD. Patient has continued to smoke. Patient has a known hiatal hernia and she ran out of a acid reflux medications and she started vomiting a few times yesterday and felt a lot of burning sensation in the epigastrium, belching, and that is why came in. The burning sensation was more in the epigastric area. No fever. No chills. No precordial pain. No dizziness. No lightheadedness. No perspiration. REVIEW OF SYSTEMS: CONSTITUTIONAL: Tired. HEENT: None. RESPIRATORY: Occasional wheezing, cough. CARDIOVASCULAR: No precordial pain. GASTROINTESTINAL: Heartburn. Rest is as above. GENITOURINARY: None. MUSCULOSKELETAL: None. DERMATOLOGICAL: None. HEMATOLOGICAL: None. LYMPHATIC: None. PSYCHIATRY: None. NEUROLOGICAL: None. PAST MEDICAL HISTORY: ST-elevation myocardial infarction with stent in December 2016, diabetes type 2, fibromyalgia, GERD, history of ITP, irritable bowel syndrome, hiatal hernia, restless legs syndrome, emphysema. PAST SURGICAL HISTORY: Adenoidectomy, bladder surgery, bowel resection, cholecystectomy, cardiac cath with stent, hernia repair, tonsillectomy, bladder suspension x2, bowel resection due to rupture. PSYCH HISTORY: Some anxiety. SOCIAL HISTORY: The patient has been smoking for over 45 years about a pack a day, trying to cut back. Denies alcohol. HOME MEDICATIONS: 1. Requip 0.25 p.o. q.h.s. 2. VESIcare 10 mg q.h.s. 3. Nitrostat 0.4 sublingual q.5 p.r.n. 4. Imodium 2 mg p.o. q.8 p.r.n. 5. [place] 7.5 one tablet q.4 p.r.n. 6. Lipitor 80 mg q.h.s. 7. Xanax 0.25 p.o. b.i.d. p.r.n. 8. Aldactone 25 mg p.o. daily. 9. Protonix 40 mg p.o. daily. 10.Lopressor 25 p.o. b.i.d. 11.Levemir 13 units subcu b.i.d. 12.NovoLog p.c. t.i.d. 13.Plavix 75 mg p.o. daily. 14.Aspirin 81 mg p.o. daily. ALLERGY: BRILINTA. PHYSICAL EXAMINATION: Temperature 96.6, pulse 88, respirations 16, blood pressure 103/51, pulse ox 94% on room air. GENERAL APPEARANCE: Thin build, lying in bed, tired-appearing. EYES: Pupils equal, conjunctivae normal. HEENT: External appearance of nose and ears normal, oral cavity normal. NECK: JVD not raised. Mass not palpable. Respiratory effort normal. LUNGS: Diminished breath sounds. Minimal wheezing. CARDIOVASCULAR: First and second sounds normal. No edema. ABDOMEN: Mild epigastric tenderness. No guarding, rigidity. Liver and spleen not palpable. LYMPHATIC: No lymph node palpable in neck or axillae. PSYCHIATRY: Alert and oriented x3. Mood and affect normal. NEUROLOGICAL: Pupils equal, cranial nerves grossly intact. Power and sensation grossly intact. INVESTIGATIONS: White count 13.4, hemoglobin 15.6, potassium 3.7, BUN 25, creatinine 1.10, glucose 362, troponin x3 negative, LDL 35, lipase 77. Chest x-ray nil acute. EKG shows P- pulmonale. CT scan of the abdomen and pelvis shows a few nondilated prominent loops of small bowel containing air-fluid levels, indeterminate left adrenal gland nodule, a 6 mm pancreatic head lesion. Chest CTA shows emphysematous changes and left upper lobe possible pulmonary nodule. Nodule is noted and there is a 1.8 cm right breast mass and there is some distal esophageal thickening suggestive of esophagitis. ASSESSMENT: 1. This is a patient who has known hiatal hernia and reflux symptoms who had been on anti-reflux medications that she is on and off. Continued to smoke. Presents with severe amount of vomiting, severe burning, reflux symptoms with some tenderness in the epigastrium, likely from severe reflux. 2. Does not appear to be a cardiac presentation. 3. Coronary artery disease with stent to the left anterior descending artery. 4. Diabetes mellitus type 2, chronically on insulin. 5. Chronic fibromyalgia. 6. Gastroesophageal reflux disease. 7. ITP. 8. Irritable bowel syndrome. 9. Hiatal hernia. 10.Restless legs syndrome. 11.Emphysema in a current smoker. 12.Chronic nicotine dependence, patient is active cigarette smoker. 13.Left upper lobe pulmonary nodule. 14.A 1.8 cm right breast mass. 15.Left adrenal gland nodule for further outpatient workup. 16.A 6 mm pancreatic head lesion. PLAN: Cardiology was consulted. Home medications will be resumed. Patient does look clinically to be in dry, especially with elevated BUN, slight bump in creatinine with long amount of vomiting. Will aggressively hydrate the patient. Will put the patient back on PPIs. Patient will need further workup for the right breast mass, adrenal gland tumor and the pancreatic head mass. Smoking cessation counseling was done with the patient and she was told this is making her emphysema worse including making her reflux symptoms worse. At least 3 minutes were spent on this aspect of the case. Oumar. ANDREW / ANASTASIYA: [id number] /
[2017-06-27 15:26] VITALS: BP 117/67; PULSE 78; TEMP 98.1
[2017-06-27 17:29] LABS: Glucose,Whole Blood 268 mg/dL (75-99)
[2017-06-27] MEDS ORDERED: INSULIN DETEMIR 100 UNIT/ML 10 ML VIAL SQ SCH (21:00)
[2017-06-27] MEDS ORDERED: OXYBUTYNIN 10 MG TAB.ER.24 PO SCH (21:00)
[2017-06-27] MEDS ORDERED: ATORVASTATIN 80 MG TAB PO SCH (21:00)
--- NOTE | 2017-06-27 23:39 | DS ---
DISCHARGE SUMMARY DATE OF ADMISSION: 06/26/2017. DATE OF DISCHARGE: 06/27/2017 FINAL DIAGNOSES: 1. Epigastric pain from acute exacerbation of reflux esophagitis in a patient who has a hiatal hernia and ran out of medications. 2. Coronary artery disease with stent to the left anterior descending coronary artery. 3. Diabetes mellitus, type 2, chronically on insulin. 4. Chronic fibromyalgia. 5. Gastroesophageal reflux disease. 6. ITP. 7. Irritable bowel syndrome. 8. Hiatal hernia. 9. Restless legs syndrome. 10.Emphysema in a current smoker. 11.Chronic nicotine dependence. Patient is an active cigarette smoker. 12.Left upper lobe pulmonary nodule. 13.Right breast mass 1.8 cm. 14.Left adrenal gland nodule for further outpatient workup. 15.Pancreatic head lesion measuring 6 mm. HOSPITAL COURSE: This patient ran out of her reflux medications, has known hiatal hernia, continues to smoke. She presented with vomiting followed by a lot of burning in the epigastric area, felt to be predominantly acid reflux. She was seen by Dr. Dale; not for any further workup. PE was ruled out. Patient's abdomen and pelvis CTA did show a left adrenal nodule. Chest CT did show a right breast 1.8 cm mass and also there was a pancreatic head 6 mm nodule. The patient is being set up to be followed as outpatient for the same with Dr. Yuni Cardona for the breast nodule, Dr. Jennifer Mccall for the EGD and followup on the pancreatic head growth, and Dr. Kori Sparks for the left adrenal nodule. Patient should be established with Pulmonary to follow up on the lung nodule. Patient was also clinically dehydrated and given IV fluids. Patient was counseled extensively about cessation of smoking. On examination, lungs have fair air entry. CARDIOVASCULAR: First and second sounds normal. CONSULTATION: Dr. Dale from Cardiology. Troponins were negative. DISCHARGE MEDICATIONS: 1. Imodium 2 mg q.8 p.r.n. 2. Insulin FlexPen t.i.d. 3. Xanax 0.25 p.o. b.i.d. p.r.n. 4. Levemir 30 units subcutaneously b.i.d. 5. VESIcare 10 mg p.o. at bedtime. 6. Requip 0.25 at bedtime. 7. [place] 7.5 one tablet q.4 p.r.n. 8. Protonix 40 mg p.o. daily. 9. Aspirin 81 mg p.o. daily. 10.Lipitor 80 mg at bedtime. 11.Lopressor 25 p.o. b.i.d. 12.Nitrostat 0.4 sublingually q.5 p.r.n. 13.Aldactone 25 mg p.o. daily. 14.Plavix 75 p.o. daily. 15.Prilosec 20 mg p.o. b.i.d. Follow up with Dr. Yuni Cardona in one week for the right breast nodule. Follow up with Dr. Mini Mccall with a view to EGD, pancreatic 6 mm mass followup. Follow up with Dr. Nick Brock to arrange followup for the lung nodule workup with Pulmonary. Follow up with Dr. Kori Sparks for the left adrenal nodule. This was all discussed with the patient in detail. Questions were answered. MMODL / IJN: [id number] /
--- NOTE | 2017-06-28 08:14 | ECHOF ---
Referral Reason:cad/chest discomfort MEASUREMENTS -------- HEIGHT: 157.5 cm WEIGHT: 54.4 kg BP: IVSd: 1.3 cm (0.6 - 1.1) LVIDd: 3.5 cm (3.9 - 5.3) LVPWd: 1.1 cm (0.6 - 1.1) IVSs: 1.6 cm LVIDs: 2.2 cm LVPWs: 1.4 cm LAESV Index (A-L): 28.53 ml/m Ao Diam: 2.5 cm (2.0 - 3.7) AV Cusp: 1.0 cm (1.5 - 2.6) LA Diam: 2.9 cm (2.7 - 3.8) MV EXCURSION: 17.570 mm (> 18.000) MV EF SLOPE: 90 mm/s (70 - 150) EPSS: 0.2 cm MV E Raul: 0.81 m/s MV DecT: 232 ms MV A Raul: 0.93 m/s MV E/A Ratio: 0.87 RAP: 5.00 mmHg RVSP: 18.36 mmHg FINDINGS -------- Sinus rhythm. This was a technically good study. The left ventricular size is normal. There is mild concentric left ventricular hypertrophy. Overa ll left ventricular systolic function is normal with, an EF between 55 - 60 %. The right ventricle is normal in size. Normal LA size by volume 22+/-6 ml/m2. The right atrial size is normal. There is mild aortic valve sclerosis. There is no evidence of aortic regurgitation. Mild mitral annular calcification present. Mild mitral regurgitation is present. Ofsd-fc-[id number] tricuspid regurgitation present. There is no evidence of pulmonary hypertension. The right ventricular systolic pressure, as measured by Doppler, is 18.36mmHg. There is no pulmonic regurgitation present. The aortic root size is normal. There is no pericardial effusion. CONCLUSIONS -------- 1. The left ventricular size is normal. 2. There is mild concentric left ventricular hypertrophy. 3. Overall left ventricular systolic function is normal with, an EF between 55 - 60 %. 4. Normal LA size by volume 22+/-6 ml/m2. 5. There is mild aortic valve sclerosis. 6. Mild mitral annular calcification present. 7. Mild mitral regurgitation is present. 8. Busb-wd-[id number] tricuspid regurgitation present. 9. There is no evidence of pulmonary hypertension. 10. The right ventricular systolic pressure, as measured by Doppler, is 18.36mmHg. 11. There is no pulmonic regurgitation present. 12. The aortic root size is normal. 13. There is no pericardial effusion. 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
== END 2017-06-27 18:34 | disposition home or self-care (01) ==
LOC: EC 18:24 → 3OBS 22:19
PROVIDERS: ADMIT Hospitalist; ATTEND Hospitalist
DX: K21.0 Gastro-esophageal reflux disease with esophagitis (principal); E86.0 Dehydration; K44.9 Diaphragmatic hernia without obstruction or gangrene; R07.89 Other chest pain; I25.10 Atherosclerotic heart disease of native coronary artery without angina pectoris; R91.1 Solitary pulmonary nodule; M79.7 Fibromyalgia; K86.9 Disease of pancreas, unspecified; E27.9 Disorder of adrenal gland, unspecified; N63.10 Unspecified lump in the right breast, unspecified quadrant; G25.81 Restless legs syndrome; K76.0 Fatty (change of) liver, not elsewhere classified; E11.9 Type 2 diabetes mellitus without complications; M51.26 Other intervertebral disc displacement, lumbar region; K57.90 Diverticulosis of intestine, part unspecified, without perforation or abscess without bleeding; K58.9 Irritable bowel syndrome, unspecified; F17.210 Nicotine dependence, cigarettes, uncomplicated; J43.9 Emphysema, unspecified; D69.3 Immune thrombocytopenic purpura; F41.9 Anxiety disorder, unspecified; I25.2 Old myocardial infarction; Z95.5 Presence of coronary angioplasty implant and graft; Z79.02 Long term (current) use of antithrombotics/antiplatelets; Z79.4 Long term (current) use of insulin; Z79.899 Other long term (current) drug therapy; Z88.6 Allergy status to analgesic agent; Z88.8 Allergy status to other drugs, medicaments and biological substances; Z87.11 Personal history of peptic ulcer disease; Z83.3 Family history of diabetes mellitus; Z80.9 Family history of malignant neoplasm, unspecified; Z82.49 Family history of ischemic heart disease and other diseases of the circulatory system
CPT/HCPCS: 96375 ×6; 96376 ×3; 96365 ×2; 96366 ×3; 99291 ×2; 93005 ×2; 36415; 93306; 85379; 80061; 80053; 82550 ×2; 82553 ×2; 83690; 83735; 84484 ×2; 85025; 85049; 85610; 85730 ×2; 71046; 71275; 74177; G0378 ×2; J1644 ×2; J2405; J1885; C9113; Q9967; J2270 ×2

== ENCOUNTER → 2017-07-25 | Outpatient (CLI) | payer MEDICARE, OTHER ==
--- NOTE | 2017-07-26 00:51 | MR ---
EXAMINATION TYPE: MR pancreas wo/w con DATE OF EXAM: 07/25/2017 COMPARISON: NONE HISTORY: Abnormal Findings on CT, Gadavist 7.5 CONTRAST: Standard multiplanar, multisequence MRI departmental protocol utilizing 7.5 mL intravenous Gadavist g adolinium contrast. FINDINGS: Kidneys have normal size and contour. There is a 3.7 cm simple cyst on the lateral left kid josr. There is no hydronephrosis. Liver shows no focal defect. The pancreas appears normal. Pancreatic duct is not dilated. There is no retroperitoneal adenopathy. Gallbladder appears absent. Bile ducts are not dilated. There is a 2.5 cm rounded mass in the left adrenal gland. Right adrenal gland appear s normal. The adrenal mass appears to show decreased signal on the out of phase images that suggests the presence of some fat. There are 2 small cysts in the lower pole left kidney that measure less bi n 1 cm. One of these is atypical. IMPRESSION: Left renal cysts. No evidence of solid renal mass. No evidence of pancreatic mass. Left adrenal mass with features of benign etiology. This is not signi ficantly changed in size compared to older CT scan of 11/03/2015.
== END | disposition home or self-care (01) ==
LOC: RADMRIMAIN 15:41
PROVIDERS: ATTEND Internal Medicine Gastroenterology
DX: N28.1 Cyst of kidney, acquired (principal); E27.9 Disorder of adrenal gland, unspecified; R93.8 Abnormal findings on diagnostic imaging of other specified body structures
CPT/HCPCS: 82565; 74183; 36415; A9581

== ENCOUNTER → 2017-07-28 | Outpatient (CLI) | payer MEDICARE, OTHER ==
--- NOTE | 2017-07-30 11:43 | PE ---
EXAMINATION TYPE: PET CT fusion skull to thigh DATE OF EXAM: 07/28/2017 COMPARISON: CT abdomen dated 07/12/2017, MR pancreas dated 07/25/2017, CTA chest dated 06/26/2017, CT abdo men pelvis dated 06/26/[address] abdomen pelvis dated 07/14/2015. HISTORY: Solitary pulmonary nodule. Initial staging exam. TECHNIQUE: Following the intravenous administration of 13.46 mCi of F-18 FDG, whole body images are performed from the skull base to the midthigh. Images are reviewed on the computer in the coronal, a xial, and sagittal planes. Reconstructed rotating images are created on independent workstation and reviewed on the computer. A localization and attenuation correction CT is performed in conjunction with the PET scan. SCAN: Initial. Staging. FINDINGS: MEDIASTINAL BACKGROUND: 1.59 ABDOMINAL BACKGROUND: 2.67 SKULL BASE AND NECK: Slight hypermetabolic activity of the tongue base is likely related to usage du ring the examination. No appreciable mass on noncontrast CT. No discrete supraclavicular adenopathy o r hypermetabolic lymph nodes within the neck. Periapical lucencies and hypermetabolic activity of the anterior left paracentral maxillary teeth measuring 3.79 and anterior right paracentral mandibular t eeth measuring 4.46 are indicative of dental disease. CHEST, MEDIASTINUM, AND HILAR REGION: Left upper lobe solitary pulmonary nodule measures approximatel y 0.9 x 1.1 cm and has a maximum SUV of 5.16, above mediastinal background. Of note this surrounds di lated left upper lobe bronchi with bronchiectasis. No additional pulmonary nodules are identified. ABDOMEN AND PELVIS: Overall symmetric gluteal uptake measures 3.52 on the left and 2.8 on the right a s well as at adductor pelvic musculature measuring 2.6 on the right and 1.9 on the left, likely relat ed to myositis or muscular usage during the examination. OSSEOUS STRUCTURES: No hypermetabolic uptake. OTHER CT: There is redemonstration of moderate centrilobular and paraseptal emphysematous changes mos t exaggerated at the lung apices with biapical pleural-parenchymal thickening. Right middle lobe scar ring is also again seen. No cardiomegaly or pericardial effusion. Severe three-vessel coronary artery calcifications are again seen. Again there is a 1.8 cm Central, slightly lateral right breast mass, that although does not demonstrate hypermetabolic activity recommendation remains for diagnostic mamm ography if not recently performed. The left adrenal gland nodule, stable from prior exams demonstrate s no hypermetabolic activity, and has been demonstrated to represent a benign adenoma on prior exams. Left mid renal cyst is again noted. IMPRESSION: 1. Hypermetabolic left upper lobe pulmonary nodule containing dilated subsegmental left upper lobe br onchi demonstrating intralesional focal bronchiectasis. Bronchoscopy and biopsy should be considered given the high risk nature for percutaneous biopsy as there is moderate background centrilobular and paraseptal emphysema and this hypermetabolic nodule is suspicious for neoplasm. No adenopathy within the neck, chest, abdomen, or pelvis. No evidence of osseous or visceral metastasis. No additional pul monary nodules. 2. Overall symmetric pelvic muscular activity may relate to myositis or muscular usage during the exa mination. 3. Maxillary and mandibular dental disease. 4. Benign left renal cyst and left adrenal adenoma.
== END ==
LOC: RADPETMAIN 07:18
PROVIDERS: ATTEND Family Medicine
DX: R91.1 Solitary pulmonary nodule (principal); N28.1 Cyst of kidney, acquired
CPT/HCPCS: 78815; A9552

== ENCOUNTER → 2017-08-16 | Outpatient (CLI) | payer MEDICARE, OTHER ==
[2017-08-16 14:36] VITALS: BMI 22.9
--- NOTE | 2017-08-16 15:22 | P.GSHP ---
History of Present Illness H&P Date: 08/16/17 Patient is a 66-year-old white female who presents for breast examination. She is status post bilateral mammogram which was performed on 07/05/2017. Bilateral mammogram was felt to be benign BIRADS 2 2 with routine screening in 1 year. The patient in the past has had a benign ultrasound core biopsy in October 2006 ultrasound-guided core biopsy of the left breast May 2003 benign ultrasound core biopsy of the right breast March 2002 the patient has never had breast cancer. The patient notes a nodule in the right breast at 12, oclock. The patient states she had an FNA of this area which was evidently nondiagnostic, she refuses an attempt at another FNA biopsy or percutaneously biopsy and just wants the lesion removed. She has no pain and no nipple discharge or changes of concern. Of concern is the fact that she was noted to have a recent pulmonary nodule in the left lung for which she is scheduled for a lung resection. Family history: 1. Mother breast cancer bilateral Past surgical history: 1. gallbladder 2. scar tissure abdomen 3. bladder suspension 4 bowel resection 5. breast core biopsies all benign past medical history: 1. heart stint 2. diverticular disease 3. resless leg syndrome 4. diabetic menarche: 11 : 2, one miscarriage, one child breast fed: no first live at 23 menopause: 24, hysterectomy for tumor non cancer, took ovarys BCP: none hormones: ? duration ROS: HEENT: none lungs: tumor heart: NE GI: diverticular disease Gu: as above musculoskeletal: none neurologic: none skin: none allergies: none seasonal bleeding abnormalities: ITP in the past - Constitutional Constitutional: Denies chills, Denies fever - EENT Eyes: bilateral as per HPI Ears: bilateral: decreased hearing, ear discharge, earache, tinnitus Ears, nose, mouth and throat: Denies headache, Denies sore throat - Breasts Breasts: bilateral: as per HPI - Cardiovascular Cardiovascular: Reports as per HPI - Respiratory Comment: smoke: stopped 3 weeks ago, prior since 20 1 PPD Respiratory: Reports as per HPI - Gastrointestinal Comment: diverticular disease Gastrointestinal: Denies abdominal pain, Denies diarrhea, Denies nausea, Denies vomiting - Genitourinary (Female) Genitourinary: Reports as per HPI - Integumentary Integumentary: Denies pruritus, Denies rash - Neurological Neurological: Denies numbness, Denies weakness - Psychiatric Psychiatric: Denies anxiety, Denies depression - Endocrine Comment: diabetis Endocrine: Denies fatigue, Denies weight change - Hematologic/Lymphatic Hematologic/Lymphatic: Reports as per HPI - Allergic/Immunologic Allergic/Immunologic: Reports as per HPI Past Medical History Past Medical History: Diabetes Mellitus, Fibromyalgia, GERD/Reflux, Myocardial Infarction (NE) Additional Past Medical History / Comment(s): Idiopathic thrombocytopenia purpura, IBS, diverticulitis, hiatal hernia, 2 herniated discs-L3/L4, Restless Leg Syndrome, gastritis, superficial gastric ulcers. Last Myocardial Infarction Date:: 01/2017 History of Any Multi-Drug Resistant Organisms: None Reported Past Surgical History: Adenoidectomy, Bladder Surgery, Bowel Resection, Cholecystectomy, Heart Catheterization With Stent, Hernia Repair, Hysterectomy, Tonsillectomy Additional Past Surgical History / Comment(s): BLADDER SUSPENSION x 2, breast biopsy, bowel resection due to rupture. Past Anesthesia/Blood Transfusion Reactions: No Reported Reaction Additional Past Anesthesia/Blood Transfusion Reaction / Comment(s): Pt received blood in 2005 due to ITP without reaction. Date of Last Stent Placement:: 01/2017 Past Psychological History: Anxiety Additional Psychological History / Comment(s): . Smoking Status: Former smoker Past Alcohol Use History: None Reported Additional Past Alcohol Use History / Comment(s): STARTED SMOKING AT AGE 18- SMOKES 1PPD Past Drug Use History: None Reported - Past Family History Mother Family Medical History: Cancer, Diabetes Mellitus Additional Family Medical History / Comment(s): Father had a defibrillator. He of heart dx in his 80's Medications and Allergies Home Medications Medication Instructions Recorded Confirmed Type Loperamide [Imodium] 2 mg PO Q8HR PRN 04/04/14 06/26/17 History Insulin Aspart [NovoLOG Flexpen] See Protocol SQ PC-TID 08/02/15 06/26/17 History ALPRAZolam 0.25 mg PO BID PRN 11/03/15 06/26/17 History Insulin Detemir [Levemir] 30 unit SQ BID 11/09/15 06/26/17 History Solifenacin Succinate [Vesicare] 10 mg PO HS 04/12/16 06/26/17 History rOPINIRole HCL [Requip] 0.25 mg PO HS 04/12/16 06/26/17 History HYDROcodone/APAP 7.5-325MG [[place] 1 tab PO Q4H PRN 01/14/17 06/26/17 History 7.5-325] Pantoprazole [Protonix] 40 mg PO DAILY 01/14/17 06/26/17 History Aspirin 81 mg PO DAILY chew 01/17/17 06/26/17 Rx Atorvastatin [Lipitor] 80 mg PO HS #30 tab 01/17/17 06/26/17 Rx Metoprolol Tartrate [Lopressor] 25 mg PO BID #60 tab 01/17/17 06/26/17 Rx Nitroglycerin Sl Tabs [Nitrostat] 0.4 mg SUBLINGUAL Q5M PRN #21 tab 01/17/1706/10 Rx Spironolactone [Aldactone] 25 mg PO DAILY #30 tab 01/17/17 06/26/17 Rx Clopidogrel Bisulfate [Plavix] 75 mg PO DAILY 06/26/17 06/26/17 History Omeprazole [PriLOSEC] 20 mg PO AC-BID #60 cap 06/27/17 Rx Allergies Allergy/AdvReac Type Severity Reaction Status Date / Time ticagrelor [From Brilinta] Allergy S.O.B Verified 06/26/17 19:21 aspirin AdvReac Severe Hx of Verified 06/26/17 19:20 Perforated Bowel. Does not want. Surgical - Exam - General well developed, well nourished, no distress - Eyes normal ocular movement - ENT normal pinna - Neck no masses, trachea midline - Respiratory normal expansion, normal respiratory effort, clear to auscultation - Cardiovascular Rhythm: regular Heart Sounds: normal: S1, S2 - Abdomen Abdomen: soft, non tender, no guarding, no rigid, no rebound - Musculoskeletal normal gait, normal posture - Psychiatric oriented to time, oriented to person, oriented to place, speech is normal, memory intact right breast: small nodule at 12 oclock firm no other masses left breast: no masses bilateral axilla: no adenopathy of concern Assessment and Plan Assessment: Impression/Plan: 1. nodule right breast 2. pulmonary nodule 3. NE 4. diverticular disease Plan: 1. excision lesion right breast 2. follow up with thoracic surgery 3. medical managment of medical problems CC: Dr. Christianson
== END ==
LOC: WWCWWP 14:26
PROVIDERS: ATTEND Surgery
DX: Z01.419 Encounter for gynecological examination (general) (routine) without abnormal findings (principal); Z53.9 Procedure and treatment not carried out, unspecified reason

== ENCOUNTER 2017-08-21 10:14 | Day surgery (SDC) | payer MEDICARE, OTHER ==
[2017-08-17 12:11] VITALS: BMI 22.8
[~2017-08-21 10:14] MED LIST changes: +DEXAMETHASONE SOD PHOSPHATE 10 MG/ML 1 ML VIAL IV ONE; -FAMOTIDINE 20 MG/2 ML VIAL IV PRN; +MIDAZOLAM 2 MG/2 ML VIAL IV PRN; +ceFAZolin IN SWFI 2 GM/20 ML SYRINGE IVP ONE; +fentaNYL (PF) 50 MCG/ML 2 ML AMP IV PRN
[2017-08-21 12:48] LABS: Glucose,Whole Blood 273 mg/dL (75-99)
[2017-08-21] MEDS ORDERED: INSULIN ASPART 100 UNIT/ML 1 ML 10 ML VIAL SQ ONE (12:51)
[2017-08-21] MEDS ORDERED: ONDANSETRON 4 MG/2 ML VIAL IVP ONE (12:55)
[2017-08-21] MEDS ORDERED: HEPARIN SODIUM,PORCINE 5,000 UNIT/ML 1 ML VIAL SQ ONE (14:13)
[2017-08-21] MEDS ORDERED: PROPOFOL 10 MG/ML 20 ML VIAL IV ONE (14:31)
[2017-08-21] MEDS ORDERED: fentaNYL (PF) 50 MCG/ML 2 ML AMP ONE (14:31)
[2017-08-21] MEDS ORDERED: MIDAZOLAM 2 MG/2 ML VIAL ONE (14:31)
[2017-08-21] MEDS ORDERED: LIDOCAINE 1% INJ 10MG/ML (20 ML MDV) ONE (14:31)
[2017-08-21] MEDS ORDERED: LIDOCAINE 1% (PF) 10 MG/ML (30 ML SDV) SQ ONE ×2 (14:51→15:15)
--- NOTE | 2017-08-21 15:20 | P.OP ---
Date of Procedure: 08/21/17 Preoperative Diagnosis: Palpable sebaceous/cystic subcutaneous lesion right breast Postoperative Diagnosis: same Procedure(s) Performed: Excision cystic lesion right subcutaneous tissue in the breast Anesthesia: DANIELLE Surgeon: Dianna Cardona Estimated Blood Loss (ml): 1 IV fluids (ml): 600 Pathology: other (Conclusion right subcutaneous tissue of the breast) Condition: stable Disposition: PACU Indications for Procedure: Patient with a palpable subcutaneous lesion in the right periareolar region, attempted aspiration unsuccessful, patient refused FNA or core biopsy evaluation Operative Findings: Cystic lesion right subcutaneous periareolar region Description of Procedure: Patient was taken to the operating room and following induction of anesthesia the right breast was prepped and draped in a sterile fashion. An incision was made over the palpable subcutaneous nodule. The lesion appeared to be approximately 1 cm x 8 mm in size. It was firm and had smooth borders. The lesion was excised; internally the lesion had dark viscous material. Following this after we were assured hemostasis was attained the wound was well irrigated. The specimen was cultured and sent for pathology. The skin was closed using 4-0 Monocryl followed by a nylon suture. The patient tolerated the procedure in stable condition.
--- NOTE | 2017-08-21 15:22 | P.DS ---
Providers Attending physician: Dianna Cardona Primary care physician: Nick Brock Plan - Discharge Summary New Discharge Prescriptions: No Action Loperamide [Imodium] 2 mg PO Q8HR PRN PRN Reason: Diarrhea Insulin Aspart [NovoLOG Flexpen] See Protocol SQ PC-TID ALPRAZolam 0.25 mg PO BID PRN PRN Reason: Anxiety Insulin Detemir [Levemir] 30 unit SQ BID rOPINIRole HCL [Requip] 0.25 mg PO HS Solifenacin Succinate [Vesicare] 10 mg PO HS HYDROcodone/APAP 7.5-325MG [[place] 7.5-325] 1 tab PO Q4H PRN PRN Reason: Pain Pantoprazole [Protonix] 40 mg PO QAM Aspirin 81 mg PO DAILY chew Atorvastatin [Lipitor] 80 mg PO HS #30 tab Metoprolol Tartrate [Lopressor] 25 mg PO BID #60 tab Nitroglycerin Sl Tabs [Nitrostat] 0.4 mg SUBLINGUAL Q5M PRN #21 tab PRN Reason: Chest Pain Clopidogrel Bisulfate [Plavix] 75 mg PO DAILY Omeprazole [PriLOSEC] 20 mg PO AC-BID #60 cap Spironolactone [Aldactone] 25 mg PO QAM Discharge Medication List Loperamide [Imodium] 2 mg PO Q8HR PRN 04/04/14 [History] Insulin Aspart [NovoLOG Flexpen] See Protocol SQ PC-TID 08/02/15 [History] ALPRAZolam 0.25 mg PO BID PRN 11/03/15 [History] Insulin Detemir [Levemir] 30 unit SQ BID 11/09/15 [History] Solifenacin Succinate [Vesicare] 10 mg PO HS 04/12/16 [History] rOPINIRole HCL [Requip] 0.25 mg PO HS 04/12/16 [History] HYDROcodone/APAP 7.5-325MG [[place] 7.5-325] 1 tab PO Q4H PRN 01/14/17 [History] Pantoprazole [Protonix] 40 mg PO QAM 01/14/17 [History] Aspirin 81 mg PO DAILY chew 01/17/17 [Rx] Atorvastatin [Lipitor] 80 mg PO HS #30 tab 01/17/17 [Rx] Metoprolol Tartrate [Lopressor] 25 mg PO BID #60 tab 01/17/17 [Rx] Nitroglycerin Sl Tabs [Nitrostat] 0.4 mg SUBLINGUAL Q5M PRN #21 tab 01/17/17 [Rx ] Clopidogrel Bisulfate [Plavix] 75 mg PO DAILY 06/26/17 [History] Omeprazole [PriLOSEC] 20 mg PO AC-BID #60 cap 06/27/17 [Rx] Spironolactone [Aldactone] 25 mg PO QAM 08/17/17 [History] Follow up Appointment(s)/Referral(s): Dianna Cardona MD [STAFF PHYSICIAN] - 1 Week Activity/Diet/Wound Care/Special Instructions: do not drive today patietn may shower after 48 hours Discharge Disposition: HOME SELF-CARE
[2017-08-21 15:34] VITALS: TEMP 97.2
[2017-08-21 15:47] VITALS: RESP 16
[2017-08-21 15:53] LABS: Glucose,Whole Blood 182 mg/dL (75-99)
[2017-08-21 16:47] VITALS: BP 124/74; PULSE 77
== END 2017-08-21 17:05 | disposition home or self-care (01) ==
LOC: OR 10:14
PROVIDERS: ATTEND Surgery
DX: N60.01 Solitary cyst of right breast (principal); L92.3 Foreign body granuloma of the skin and subcutaneous tissue; N60.11 Diffuse cystic mastopathy of right breast; N60.41 Mammary duct ectasia of right breast; R91.1 Solitary pulmonary nodule; I25.2 Old myocardial infarction; K57.92 Diverticulitis of intestine, part unspecified, without perforation or abscess without bleeding; G25.81 Restless legs syndrome; E11.9 Type 2 diabetes mellitus without complications; M79.7 Fibromyalgia; K21.9 Gastro-esophageal reflux disease without esophagitis; D69.3 Immune thrombocytopenic purpura; K58.9 Irritable bowel syndrome, unspecified; M51.26 Other intervertebral disc displacement, lumbar region; F41.9 Anxiety disorder, unspecified; I25.10 Atherosclerotic heart disease of native coronary artery without angina pectoris; I10 Essential (primary) hypertension; E78.5 Hyperlipidemia, unspecified; K25.9 Gastric ulcer, unspecified as acute or chronic, without hemorrhage or perforation; Z80.3 Family history of malignant neoplasm of breast; Z95.5 Presence of coronary angioplasty implant and graft; Z90.49 Acquired absence of other specified parts of digestive tract; Z79.02 Long term (current) use of antithrombotics/antiplatelets; Z79.82 Long term (current) use of aspirin; Z79.4 Long term (current) use of insulin; Z79.899 Other long term (current) drug therapy; Z88.8 Allergy status to other drugs, medicaments and biological substances; Z87.891 Personal history of nicotine dependence
CPT/HCPCS: 88305; 87070; 87205; 87075; 19120; J2250; J1644; J2405; J2001 ×2; J3010; J2704; J0690

== ENCOUNTER → 2017-08-30 | Outpatient (CLI) | payer MEDICARE, OTHER ==
[2017-08-30 09:53] VITALS: BP 102/54; PULSE 82; TEMP 97.7; BMI 22.8
--- NOTE | 2017-08-30 10:02 | P.PN ---
Subjective Progress Note Date: 08/30/17 Patient is status post excision of breast cystic lesion. Pathology was benign. The patient is doing well without complaints at this time. If she has a nodule in her lung for which she is following with Dr. Jules. She will have a repeat right breast mammogram in 6 months time with follow-up at that time. Objective - Respiratory Respiratory: bilateral: CTA - Cardiovascular Rhythm: regular Heart sounds: normal: S1, S2 - Integumentary Integumentary Comment(s): incision clean and dry no infection - Psychiatric Psychiatric: Present: A&O x's 3, appropriate affect, intact judgment & insight Assessment and Plan Assessment: Impression/plan: 1. Status post excision of cystic lesion with a depressed subcutaneous area 2. Pathology benign 3. Follow-up with Dr. Jules lung lesion 4. Follow with Dr. Brock for medical management Plan: 1. Repeat right breast mammogram in 6 months time with physician exam at that time 2. Medical management as per Dr. Brock 3. Follow-up for pulmonary nodule as per Dr. Jules Cc: Dr. Brock
== END ==
LOC: WWCWWP 09:38
PROVIDERS: ATTEND Surgery
DX: Z53.9 Procedure and treatment not carried out, unspecified reason (principal)

== ENCOUNTER → 2017-08-30 | Outpatient (CLI) | payer MEDICARE, OTHER | END | disposition home or self-care (01) | LOC: LABPAT 14:18 | PROVIDERS: ATTEND Thoracic Surgery (Cardiothoracic Vascular Surgery) | DX: Z53.9 Procedure and treatment not carried out, unspecified reason (principal) ==

== ENCOUNTER 2017-09-06 09:51 | Inpatient (IN) | payer MEDICARE, OTHER ==
[2017-08-30 15:02] LABS: Basophils % (A) 0 %; Eosinophils # (A) 0.2 k/uL (0-0.7); Eosinophils % (A) 2 %; HCT 43.6 % (34.0-46.0); HGB 14.3 gm/dL (11.4-16.0); Lymphocytes # (A) 2.3 k/uL (1.0-4.8); Lymphocytes % (A) 29 %; MCH 28.8 pg (25.0-35.0); MCHC 32.8 g/dL (31.0-37.0); Mean Platelet Volume 7.3; Monocytes # (A) 0.5 k/uL (0-1.0); Monocytes % (A) 7 %; Neutrophils # (A) 4.6 k/uL (1.3-7.7); Neutrophils % (A) 59 %; Platelet Count 246 k/uL (150-450); RBC 4.96 m/uL (3.80-5.40); RDW 14.3 % (11.5-15.5); WBC 7.8 k/uL (3.8-10.6)
[2017-08-30 15:11] LABS: Anion Gap 14 mmol/L; Appearance,Urine Cloudy (Clear); Bilirubin,Urine Negative (Negative); Blood Urea Nitrogen 17 mg/dL (7-17); Blood,Urine Negative (Negative); Carbon Dioxide 22 mmol/L (22-30); Chloride 99 mmol/L (98-107); Color,Urine Colorless; Glucose,Urine (UA) 4+ (Negative); Ketones,Urine Negative (Negative); Leukocyte Esterase,Urine Moderate (Negative); Mucus,Urine Rare /hpf; Nitrite,Urine Negative (Negative); PH, Urine 5.5 (5.0-8.0); Potassium 4.4 mmol/L (3.5-5.1); Protein,Urine Negative (Negative); RBC,Urine <1 /hpf (0-5); Sodium 135 mmol/L (137-145); Specific Gravity,Urine 1.027 (1.001-1.035); Squamous Epithelial Cell,Urine 4 /hpf (0-4); Urobilinogen,Urine <2.0 mg/dL (<2.0); WBC,Urine 42 /hpf (0-5)
[~2017-09-06 09:51] MED LIST changes: -HEPARIN SODIUM,PORCINE 5,000 UNIT/ML 1 ML VIAL SQ ONE; -LACTATED RINGERS 1,000 ML IV SCH; -LIDOCAINE 1% 20 ML VIAL (10MG/ML) FOR IV START INTRADERMA PRN; +MORPHINE SULFATE 4 MG/ML SYRINGE IV PRN; +ONDANSETRON 4 MG/2 ML VIAL IVP ONE; +Pre Op ABX Message 1 EACH MISC MISCELLANE ONE; -SCOPOLAMINE 1.5MG/72HR PATCH TRANSDERM ONE; -ceFAZolin IN SWFI 2 GM/20 ML SYRINGE IVP ONE; -fentaNYL (PF) 50 MCG/ML 2 ML AMP IV PRN
[2017-09-06] MEDS ORDERED: LIDOCAINE 1% 20 ML VIAL (10MG/ML) FOR IV START INTRADERMA ONE (10:45)
[2017-09-06] MEDS ORDERED: fentaNYL (PF) 50 MCG/ML 2 ML AMP IV ONE ×2 (10:45→10:48)
[2017-09-06] MEDS ORDERED: INSULIN ASPART 100 UNIT/ML 1 ML 10 ML VIAL SQ ONE ×2 (10:47→16:11)
[2017-09-06 10:48] LABS: Glucose,Whole Blood 286 mg/dL (75-99)
[2017-09-06] MEDS: LACTATED RINGERS 1,000 ML IV SCH ×2 (10:49→11:09)
[2017-09-06] MEDS ORDERED: SODIUM CHLORIDE 0.9% 50 ML with ceFAZolin 1,000 MG IV ONE ×2 (12:25)
[2017-09-06] MEDS ORDERED: BUPIVACAINE (PF) 0.5% 30 ML VIAL SQ ONE ×2 (12:34)
[2017-09-06] MEDS: HYDROmorphone 0.5 MG/0.5 ML SYRINGE IVP PRN ×4 (15:45→16:06)
--- NOTE | 2017-09-06 15:53 | P.OP ---
Date of Procedure: 09/06/17 Preoperative Diagnosis: Left upper lobe mass Postoperative Diagnosis: Same Procedure(s) Performed: Robotic-assisted thoracoscopic left upper lobectomy with mediastinal lymph node dissection and fiberoptic bronchoscopy with clearance of mucous plug Anesthesia: DANIELLE Surgeon: Mauri Jules Industrial X Ray Operator #1: Denver Saldana Estimated Blood Loss (ml): 50 IV fluids (ml): 1,000 Urine output (ml): 400 Pathology: other (Left upper lobe, lymph node stations L5 and L6, level 7, L 10 and L 11) Condition: stable Disposition: PACU Indications for Procedure: 66-year-old female with history of smoking and COPD presented to the emergency room shortness of breath and had a computed tomography scan. Incidental finding of the left upper lobe mass was made. Patient was referred to Dr. Butcher. PET scan was obtained. This clearly showed uptake in the left upper lobe mass with no evidence of metastasis. Patient also had a breast mass which was biopsied and was benign. She also had an adrenal mass which underwent a dedicated abdominal CT and was consistent with adenoma. A she was diagnosed with clinical stage I lung cancer and recommended to undergo surgical evaluation. On my evaluation in the office it was noted that the tumor was small and very deep in the lung parenchyma and not amenable to excisional wedge resection. I recommended lobectomy and this was agreed upon with Dr. Lan. A robotic approach was planned and the patient gave informed consent. Operative Findings: There was a small mass palpable deep in the left upper lobe. Fissures were near complete. There was substantial hilar and mediastinal anthracotic adenopathy and the dissection in the hilum was sticky and difficult. On completion of the lobectomy, the left lower lobe did not expand well. We had no concern about bronchial occlusion and we quickly bronchoscoped the patient with a pediatric bronchoscope through the double-lumen tube and noted considerable mucus in the distal airway. Following completion of the surgical procedure the patient was turned supine and the double-lumen tube was removed and she was reintubated with a size 8 endotracheal tube. A interventional bronchoscope was used to clear mucous plug from the left lower lobe. On completion of the bronchoscopy the airways was clear throughout. Good bilateral breath sounds were present at that time. Description of Procedure: The patient was brought to the operating room and placed supine on the operating table. She was anesthetized and intubated with a double-lumen endotracheal tube. The tube was positioned with fiberoptic bronchoscopy. No endobronchial lesions were noted. Patient was turned in the right lateral decubitus position and the left chest sterilely prepped and draped. The patient was appropriately positioned for robotic lobectomy. Initial incision was made in the anterior axillary line in the eighth interspace. Single lung ventilation had ensued. A 8 mm robotic port was placed into the pleural space. After confirmation of placement in the pleural space with thoracoscopy, CO2 insufflation was begun. To 12-Italian robotic ports were placed 10 cm anterior and posterior to the initial port and a second 8 mm port was put in the fourth interspace posteriorly. A working port was placed between the 2 anterior ports at the level of the diaphragm. The robot was docked. We began by taking down the inferior pulmonary ligament. Dissection was carried posteriorly and the paraesophageal and subcarinal lymph nodes were dissected out. Level lymph nodes were dissected out. Dissection was begun along the bronchus and pulmonary artery into the fissure and a branch of the pulmonary artery was noted. Dissection was difficult due to the lymph nodes and the tissues and it was decided to move anteriorly. We dissected out the superior pulmonary vein and were able to successfully encircle it ligated and divided with the robotic stapler. We then worked in the fissure and discovered the lingular branch of the pulmonary artery and ligated and divided this with a robotic stapler. We then completed the fissure anteriorly with a firing of a 45 mm blue robotic stapler. Following this we dissected along the pulmonary artery and were able to successfully encircle the upper lobe bronchus dissecting the majority of the L 11 lymph nodes en bloc with the specimen. Some were dissected out separately and sent as separate specimen. Once we encircled the upper lobe bronchus was ligated and divided with a single firing of a robotic green stapler. We were now able to dissected out the remaining branches of the pulmonary artery leading to the upper lobe and ligate and divide these with multiple firings of the robotic vascular stapler. This completed the lobectomy. The level V lymph nodes were dissected. The lobectomy specimen was placed into the Endo Catch bag and brought out onto the field. Chest was irrigated and no significant bleeding was noted. There were no air leaks but the left lower lobe did not inflate very well. At that point I broke scrub and passed the pediatric bronchoscope down the bronchial side of the double-lumen endotracheal tube noting a large collection of white mucus at the bottom of the tube. Having convince myself that the reason the lower lobe was not expanding wall was due to mucous plugging, I scrubbed back in and we completed the operation by placing a 28-Italian chest tube through the most anterior incision and positioning posterior apically and closing the incisions with layers of Vicryl suture. Rib blocks were performed at levels 4 through 10 with half percent Marcaine. Dry sterile dressings were applied and the chest tube was connected to suction. The patient was turned supine and reintubated with a size 8 tube. Vaginal bronchoscope was passed. The right endobronchial tree was clear. The left endobronchial tree demonstrated a large white to clear mucus plugging in the left lower lobe bronchus. This was suctioned clear. We then irrigated the left side with some saline and obtain a completely clear bronchus. Was good closure of the upper lobe bronchus. Bronchoscope was removed. Good breath sounds were noted bilaterally. The patient was extubated and transferred to recovery in stable condition.
[2017-09-06] MEDS ORDERED: LOPERAMIDE 2 MG CAP PO PRN (15:57)
[2017-09-06] MEDS ORDERED: DEXTROSE 5%-0.45% NACL 1,000 ML IV SCH (15:57)
[2017-09-06] MEDS ORDERED: ONDANSETRON 4 MG/2 ML VIAL IVP PRN (15:57)
[2017-09-06] MEDS ORDERED: IPRATROPIUM-ALBUTEROL 3 ML NEB IH PRN (15:57)
[2017-09-06 16:01] LABS: Glucose,Whole Blood 364 mg/dL (75-99)
--- NOTE | 2017-09-06 16:21 | XR ---
EXAMINATION TYPE: XR chest 1V DATE OF EXAM: 09/06/2017 COMPARISON: 06/26/2017 HISTORY: Status post left upper lobectomy. TECHNIQUE: Single frontal view of the chest is obtained. FINDINGS: Left hemithorax volume loss is noted from the recent left upper lobectomy. Scattered patch y left-sided opacities likely relate to atelectasis. No residual pneumothorax is seen. Left-sided tho racostomy tube terminates in the left lung apex. Right lung is overall clear. Osseous structures are grossly intact. Cardia mediastinal silhouette is within normal limits. IMPRESSION: Postsurgical changes of a left upper lobectomy with left-sided opacities likely related to atelectasis and no residual pneumothorax.
[2017-09-06] MEDS ORDERED: fentaNYL (PF) 50 MCG/ML 2 ML AMP IVP ONE (16:42)
[2017-09-06] MEDS: HYDROcodone/APAP 7.5-325MG 1 EACH TAB PO PRN ×2 (17:42→21:31)
[2017-09-06] MEDS: KETOROLAC 30 MG/ML 1 ML VIAL IVP SCH ×2 (17:42→23:11)
[2017-09-06] MEDS: ALPRAZolam 0.25 MG TAB PO PRN (17:42)
[2017-09-06] MEDS: IPRATROPIUM-ALBUTEROL 3 ML NEB IH SCH ×2 (17:44→21:34)
[2017-09-06 18:19] LABS: Glucose,Whole Blood 256 mg/dL (75-99)
[2017-09-06] MEDS: PANTOPRAZOLE 40 MG TABLET PO SCH (18:32)
[2017-09-06] MEDS: INSULIN ASPART 100 UNIT/ML 1 ML 10 ML VIAL SQ SCH ×2 (18:49→20:50)
[2017-09-06] MEDS: HEPARIN SODIUM,PORCINE 5,000 UNIT/ML 1 ML VIAL SQ SCH ×2 (18:49→23:11)
[2017-09-06] MEDS: ceFAZolin IN SWFI 2 GM/20 ML SYRINGE IVP SCH (20:23)
[2017-09-06] MEDS: LISINOPRIL 5 MG TAB PO SCH (20:24)
[2017-09-06] MEDS: METOPROLOL TARTRATE 25 MG TAB PO SCH (20:24)
[2017-09-06] MEDS: OXYBUTYNIN XL 5 MG TAB.ER.24 PO SCH (20:25)
[2017-09-06 20:39] LABS: Glucose,Whole Blood 290 mg/dL (75-99)
[2017-09-06] MEDS: SYMBICORT 160-4.5 MCG INHALER INHALATION SCH (21:34)
[2017-09-07] MEDS: HYDROcodone/APAP 7.5-325MG 1 EACH TAB PO PRN (01:56)
[2017-09-07] MEDS: ceFAZolin IN SWFI 2 GM/20 ML SYRINGE IVP SCH (04:59)
[2017-09-07] MEDS: KETOROLAC 30 MG/ML 1 ML VIAL IVP SCH ×4 (04:59→23:14)
[2017-09-07 06:04] LABS: Glucose,Whole Blood 282 mg/dL (75-99)
[2017-09-07] MEDS: PANTOPRAZOLE 40 MG TABLET PO SCH (06:40)
[2017-09-07] MEDS: INSULIN ASPART 100 UNIT/ML 1 ML 10 ML VIAL SQ SCH ×4 (06:40→21:11)
[2017-09-07 06:41] LABS: ALT 40 U/L (9-52); AST 19 U/L (14-36); Albumin 2.8 g/dL (3.5-5.0); Alkaline Phosphatase 101 U/L (38-126); Anion Gap 10 mmol/L; Basophils % (A) 0 %; Blood Urea Nitrogen 22 mg/dL (7-17); Calcium 8.6 mg/dL (8.4-10.2); Carbon Dioxide 18 mmol/L (22-30); Chloride 108 mmol/L (98-107); Eosinophils % (A) 0 %; Glucose 291 mg/dL (74-99); HCT 38.4 % (34.0-46.0); HGB 12.2 gm/dL (11.4-16.0); Lymphocytes # (A) 2.1 k/uL (1.0-4.8); Lymphocytes % (A) 20 %; MCH 28.7 pg (25.0-35.0); MCHC 31.8 g/dL (31.0-37.0); MCV 90.2 fL (80.0-100.0); Mean Platelet Volume 7.5; Monocytes # (A) 0.9 k/uL (0-1.0); Monocytes % (A) 8 %; Neutrophils # (A) 7.1 k/uL (1.3-7.7); Neutrophils % (A) 70 %; Platelet Count 214 k/uL (150-450); Potassium 4.4 mmol/L (3.5-5.1); RBC 4.26 m/uL (3.80-5.40); RDW 14.9 % (11.5-15.5); Sodium 136 mmol/L (137-145); Total Bilirubin <0.1 mg/dL (0.2-1.3); Total Protein 4.9 g/dL (6.3-8.2); WBC 10.3 k/uL (3.8-10.6)
[2017-09-07] MEDS ORDERED: HYDROcodone/APAP 10-325MG 1 EACH TAB PO PRN (07:07)
--- NOTE | 2017-09-07 07:55 | P.PN ---
Subjective Progress Note Date: 09/07/17 Principal diagnosis: Left upper lobe mass. Medical history of coronary artery disease with recent stenting of the left anterior descending coronary artery in December 2016, perforated gastric ulcer with exploratory laparotomy, ITP, hypothyroid, diabetes mellitus type 2, previous tobacco dependence. POD #1 robotic assisted thoracoscopic left upper lobectomy with mediastinal lymph node dissection and fiberoptic bronchoscopy with clearance of mucous plug. Patient's currently laying in bed complaining of significant pain at her chest tube site, reluctant to take deep breaths and cough. No other new complaints. Objective - Vital Signs Vital signs: Vital Signs Temp 97.4 F L 09/07/17 04:00 Pulse 95 09/07/17 05:32 Resp 20 09/07/17 04:00 BP 112/58 09/07/17 04:00 Pulse Ox 98 09/07/17 04:00 Intake & Output 09/06/17 09/07/17 09/07/17 18:59 06:59 18:59 Intake Total 1300 Output Total 645 960 Balance 655 -960 Weight 56.699 kg 44 kg Intake: IV 1300 Output: Chest Tube Drainage 95 335 Chest Tube Left Lateral 95 335 Chest Urine 500 625 Estimated Blood Loss 50 Other: Voiding Method Indwelling Catheter # Voids 1 - Constitutional General appearance: Present: cooperative, mild distress - Respiratory Details: Lungs sounds diminished bilaterally. Respirations even, nonlabored. Currently on 2 L nasal cannula with oxygen saturation 98%. Able to achieve 750 mL on incentive spirometry. Left pleural chest tube to continuous wall suction, 240 mL serosanguineous drainage overnight, 500 mL since surgery, positive air leak. - Cardiovascular Details: S1, S2 present. Regular rate and rhythm, sinus rhythm on telemetry. Palpable peripheral pulses bilaterally. No edema present. No calf pain or tenderness noted. SCDs present. - Gastrointestinal Gastrointestinal Comment(s): Abdomen soft, nontender, nondistended. Active bowel sounds 4 quadrants. Tolerating diet. - Genitourinary Genitourinary Comment(s): Pino present draining clear, yellow urine. - Integumentary Integumentary Comment(s): Skin is warm and dry with evidence of good perfusion. Left pleural chest tube site covered with dry intact dressing. - Neurologic Neurologic: Present: CNII-XII intact - Musculoskeletal Musculoskeletal: Present: strength equal bilaterally - Psychiatric Psychiatric: Present: A&O x's 3, appropriate affect, intact judgment & insight - Allied health notes Allied health notes reviewed: nursing - Labs CBC & Chem 7: 09/07/17 05:42 09/07/17 05:42 Labs: Abnormal Lab Results - Last 24 Hours (Table) 09/06/17 09/06/17 09/06/17 Range/Units 10:31 15:56 18:16 Sodium (137-145) mmol/L Chloride (98-107) mmol/L Carbon Dioxide (22-30) mmol/L BUN (7-17) mg/dL Glucose (74-99) mg/dL POC Glucose (mg/dL) 286 H 364 H 256 H (75-99) mg/dL Total Bilirubin (0.2-1.3) mg/dL Total Protein (6.3-8.2) g/dL Albumin (3.5-5.0) g/dL 09/06/17 09/07/17 09/07/17 Range/Units 20:37 05:42 06:01 Sodium 136 L (137-145) mmol/L Chloride 108 H (98-107) mmol/L Carbon Dioxide 18 L (22-30) mmol/L BUN 22 H (7-17) mg/dL Glucose 291 H (74-99) mg/dL POC Glucose (mg/dL) 290 H 282 H (75-99) mg/dL Total Bilirubin <0.1 L (0.2-1.3) mg/dL Total Protein 4.9 L (6.3-8.2) g/dL Albumin 2.8 L (3.5-5.0) g/dL - Imaging and Cardiology Chest x-ray: image reviewed Assessment and Plan (1) Mass of upper lobe of left lung Current Visit: Yes Status: Acute Code(s): R91.8 - OTHER NONSPECIFIC ABNORMAL FINDING OF LUNG FIELD SNOMED Code(s): 867088475 (2) Coronary artery disease Current Visit: Yes Status: Chronic Code(s): I25.10 - ATHSCL HEART DISEASE OF [place] CORONARY ARTERY W/O ANG PCTRS SNOMED Code(s): 51987271 (3) History of heart artery stent Current Visit: Yes Status: Chronic Code(s): Z95.5 - PRESENCE OF CORONARY ANGIOPLASTY IMPLANT AND GRAFT SNOMED Code(s): 198897882 (4) Hypothyroid Current Visit: Yes Status: Chronic Code(s): E03.9 - HYPOTHYROIDISM, UNSPECIFIED SNOMED Code(s): 57080334 (5) Diabetes mellitus Current Visit: Yes Status: Chronic Code(s): E11.9 - TYPE 2 DIABETES MELLITUS WITHOUT COMPLICATIONS SNOMED Code(s): 07553392 (6) Tobacco dependence in remission Current Visit: Yes Status: Resolved Code(s): F17.201 - NICOTINE DEPENDENCE, UNSPECIFIED, IN REMISSION SNOMED Code(s): 653638863 (7) History of gastric ulcer Current Visit: Yes Status: Resolved Code(s): Z87.19 - PERSONAL HISTORY OF OTHER DISEASES OF THE DIGESTIVE SYSTEM SNOMED Code(s): 102719525 (8) History of ITP Current Visit: Yes Status: Resolved Priority: Medium Code(s): Z86.2 - PRSNL HISTORY OF DIS OF THE BLD/BLD-FORM ORG/IMMUN MECHNSM SNOMED Code(s): 155367612 Plan: 1. Continue left pleural chest tube to continuous wall suction. Will monitor for resolution of air leak and output. 2. Will monitor daily x-rays. 3. Wean O2 as tolerated. Encourage incentive spirometry use 10 times every hour. 4. Encourage continued smoking cessation. 5. Bronchodilators per pulmonology. 6. Will increase pain medication. 7. GI/DVT prophylaxis. 8. Discontinue Pino catheter. Hep-Lock IV. 9. Increase activity, ambulate in room. 10. More recommendations to follow. Time with Patient: Greater than 30
[2017-09-07] MEDS: ASPIRIN 81 MG PO SCH (08:04)
[2017-09-07] MEDS: ATORVASTATIN 80 MG TAB PO SCH (08:04)
[2017-09-07] MEDS: CLOPIDOGREL 75 MG TAB PO SCH (08:05)
[2017-09-07] MEDS: LISINOPRIL 5 MG TAB PO SCH ×2 (08:05→20:41)
[2017-09-07] MEDS: METOPROLOL TARTRATE 25 MG TAB PO SCH ×2 (08:05→20:41)
[2017-09-07] MEDS: HEPARIN SODIUM,PORCINE 5,000 UNIT/ML 1 ML VIAL SQ SCH ×3 (08:17→23:11)
[2017-09-07] MEDS: SYMBICORT 160-4.5 MCG INHALER INHALATION SCH ×2 (08:25→20:09)
[2017-09-07] MEDS: IPRATROPIUM-ALBUTEROL 3 ML NEB IH SCH ×4 (08:25→20:09)
--- NOTE | 2017-09-07 09:46 | XR ---
EXAMINATION TYPE: XR chest 1V DATE OF EXAM: 09/07/2017 COMPARISON: Prior chest x-ray 09/06/2017 HISTORY: Status post left upper lobectomy, chest tube TECHNIQUE: Single frontal view of the chest is obtained. FINDINGS: There is volume loss in the left hemithorax status post lobectomy. Chest tube shows stable configuration. Compensatory emphysema noted in the right hemithorax. No evident pneumothorax or pleu ral effusion. Patchy basilar density suspected in the left lower lobe. Heart size is stable. IMPRESSION: Stable postoperative findings.
[2017-09-07] MEDS: ALPRAZolam 0.25 MG TAB PO PRN ×2 (10:20→18:51)
[2017-09-07] MEDS ORDERED: HYDROmorphone 0.5 MG/0.5 ML SYRINGE IVP STA (10:51)
[2017-09-07] MEDS ORDERED: METOCLOPRAMIDE 5 MG/ML 2 ML VIAL IVP STA (11:00)
--- NOTE | 2017-09-07 11:18 | P.CNPUL ---
History of Present Illness Consult date: 09/07/17 Reason for consult: abnormal CXR/CT, other Chief complaint: Lung mass History of present illness: Consult dated 09/07/2017 This is a 58-year-old female who I saw initially for one of the referring physician so. The patient had a computed tomography scan of the chest which revealed a small left upper lobe nodule. A PET scan was suspicious for cancer. The PET scan was negative every 4 hours. She was a heavy smoker. For that reason, she was seen by one of the thoracic surgeons and yesterday had a robotic -assisted thorascopic left upper lobectomy with mediastinal lymph node dissection and fiberoptic bronchoscopy with clearance of mucous plug. Patient did well. She is currently in the room. She's he is complaining of some pain in the left chest area. The pain is worse when she takes a deep breath. She does have no code. I also asked the nurse to give her a small dose of Dilaudid. Other than that, she seemed be doing relatively well. Chest tubes in place. No other complaints. Daughter at the bedside. The patient's past medical history is positive for CAD myocardial infarction with previous stenting of the LAD gastroesophageal reflux disease and irritable bowel syndrome type 2 diabetes anxiety hyperlipidemia and restless leg syndrome. Social history is positive for ongoing tobacco use. Review of Systems A 12 point review of system is positive for pain in the left chest area from where the surgery was done. Short of that, she is doing relatively well. Denies any difficulty breathing. Past Medical History Past Medical History: Diabetes Mellitus, Fibromyalgia, GERD/Reflux, Myocardial Infarction ([place]) Additional Past Medical History / Comment(s): Idiopathic thrombocytopenia purpura, IBS, diverticulitis, hiatal hernia, 2 herniated discs-L3/L4, Restless Leg Syndrome, gastritis, superficial gastric ulcers. nodule on lt lung-Cancer Stg 1 Last Myocardial Infarction Date:: 01/2017 History of Any Multi-Drug Resistant Organisms: None Reported Past Surgical History: Adenoidectomy, Bladder Surgery, Bowel Resection, Cholecystectomy, Heart Catheterization With Stent, Hernia Repair, Hysterectomy, Tonsillectomy Additional Past Surgical History / Comment(s): BLADDER SUSPENSION x 2, breast biopsy x3, bowel resection due to rupture. Past Anesthesia/Blood Transfusion Reactions: No Reported Reaction Additional Past Anesthesia/Blood Transfusion Reaction / Comment(s): Pt received blood in 2005 due to ITP without reaction. Date of Last Stent Placement:: 01/2017 Past Psychological History: Anxiety Additional Psychological History / Comment(s): . Smoking Status: Former smoker Past Alcohol Use History: None Reported Additional Past Alcohol Use History / Comment(s): STARTED SMOKING AT AGE 18- SMOKES 1PPD Past Drug Use History: None Reported - Past Family History Mother Family Medical History: Cancer, Diabetes Mellitus Additional Family Medical History / Comment(s): Father had a defibrillator. He of heart dx in his 80's Father Family Medical History: Diabetes Mellitus Additional Family Medical History / Comment(s): HEART DISEASE Medications and Allergies Home Medications Medication Instructions Recorded Confirmed Type Loperamide [Imodium] 2 mg PO Q8HR PRN 04/04/14 09/06/17 History Insulin Aspart [NovoLOG Flexpen] See Protocol SQ PC-TID PRN 08/02/15 09/06/17 History ALPRAZolam 0.25 mg PO BID PRN 11/03/15 09/06/17 History Insulin Detemir [Levemir] 30 unit SQ DAILY@1200 11/09/15 09/06/17 History Solifenacin Succinate [Vesicare] 10 mg PO HS 04/12/16 09/06/17 History rOPINIRole HCL [Requip] 0.25 mg PO HS 04/12/16 09/06/17 History HYDROcodone/APAP 7.5-325MG [[place] 1 tab PO Q4H PRN 01/14/17 09/06/17 History 7.5-325] Pantoprazole [Protonix] 40 mg PO QAM PRN 01/14/17 09/06/17 History Aspirin 81 mg PO DAILY chew 01/17/17 09/06/17 Rx Metoprolol Tartrate [Lopressor] 25 mg PO BID #60 tab 01/17/17 09/06/17 Rx Nitroglycerin Sl Tabs [Nitrostat] 0.4 mg SUBLINGUAL Q5M PRN #21 tab 01/17/17 Rx Clopidogrel Bisulfate [Plavix] 75 mg PO DAILY 06/26/17 09/06/17 History Atorvastatin [Lipitor] 80 mg PO DAILY 08/31/17 09/06/17 History Budesonide-Formot 160-4.5 Mcg 2 puff INHALATION RT-BID 08/31/17 09/06/17 History [Symbicort 160-4.5 Mcg Inhaler] Ipratropium/Albuterol Sulfate 1 puff INHALATION RT-QID 08/31/17 09/06/17 History [Combivent Respimat Inhaler] Lisinopril [Prinivil] 5 mg PO BID 08/31/17 09/06/17 History Naproxen [Naprosyn] 500 mg PO BID PRN 08/31/17 09/06/17 History Allergies Allergy/AdvReac Type Severity Reaction Status Date / Time No Known Allergies Allergy Verified 09/06/17 16:27 Physical Exam Osteopathic Statement: *. No significant issues noted on an osteopathic structural exam other than those noted in the History and Physical/Consult. Vitals: Vital Signs Temp Pulse Pulse Pulse Resp BP BP 09/07/17 10:58 95 18 83/53 09/07/17 08:37 100 09/07/17 08:26 100 09/07/17 08:00 99 18 09/07/17 07:53 97.5 F L 99 18 112/58 09/07/17 05:32 95 09/07/17 05:21 100 09/07/17 04:00 97.4 F L 79 20 112/58 09/06/17 23:30 93 18 09/06/17 23:27 97.0 F L 93 18 104/53 09/06/17 21:50 96 09/06/17 21:36 96 09/06/17 20:00 96.8 F L 97 19 106/51 09/06/17 18:30 104 H 20 129/60 09/06/17 18:15 105 H 20 131/58 09/06/17 18:00 106 H 20 141/66 09/06/17 17:48 97.2 F L 115 H 24 160/73 09/06/17 16:52 97 16 114/62 09/06/17 16:37 96 20 124/62 09/06/17 16:22 94 18 126/78 09/06/17 16:07 95 16 117/57 09/06/17 15:52 92 20 128/60 09/06/17 15:37 97.8 F 83 18 120/50 BP Pulse Ox 09/07/17 10:58 83/52 97 09/07/17 08:37 09/07/17 08:26 99 09/07/17 08:00 09/07/17 07:53 99 09/07/17 05:32 09/07/17 05:21 09/07/17 04:00 98 09/06/17 23:30 09/06/17 23:27 97 09/06/17 21:50 09/06/17 21:36 94 L 09/06/17 20:00 99 09/06/17 18:30 100 09/06/17 18:15 96 09/06/17 18:00 100 09/06/17 17:48 92 L 09/06/17 16:52 96 09/06/17 16:37 97 09/06/17 16:22 96 09/06/17 16:07 96 09/06/17 15:52 100 09/06/17 15:37 97 Intake and Output 09/06/17 09/07/17 09/07/17 22:59 06:59 14:59 Intake Total 200 Output Total 340 865 370 Balance -140 -865 -370 Intake: IV 200 Output: Chest Tube Drainage 190 240 50 Chest Tube Left Lateral 190 240 50 Chest Urine 150 625 320 Other: Voiding Method Indwelling Catheter Indwelling Catheter # Voids 1 Weight 56.699 kg 44 kg No acute distress, oriented 3. Nasal O2 in place. HEENT examination is grossly unremarkable. Mucous membranes are moist. No oral lesions. Neck supple. Full range of motion. No adenopathy thyromegaly or neck vein distention. Cardiovascular examination reveals regular rhythm rate. S1-S2 normal. No S3 or S4. No discernible murmur noted. Lungs reveal diminished breath sounds in the left chest area. A few scattered rhonchi. No wheezes or crackles. Abdomen soft bowel sounds are heard. No masses or tenderness. Extremities are intact. No cyanosis clubbing or edema. Skin is without rash or lesion. Neurologic examination is brief but nonfocal. Results - Laboratory Findings CBC and BMP: 09/07/17 05:42 09/07/17 05:42 Abnormal lab findings: Abnormal Labs 08/30/17 08/30/17 09/06/17 14:21 14:21 10:31 Sodium 135 L Chloride Carbon Dioxide BUN Glucose POC Glucose (mg/dL) 286 H Total Bilirubin Total Protein Albumin Urine Appearance Cloudy H Urine Glucose (UA) 4+ H Ur Leukocyte Esterase Moderate H Urine WBC 42 H Urine Mucus Rare H 09/06/17 09/06/17 09/06/17 15:56 18:16 20:37 Sodium Chloride Carbon Dioxide BUN Glucose POC Glucose (mg/dL) 364 H 256 H 290 H Total Bilirubin Total Protein Albumin Urine Appearance Urine Glucose (UA) Ur Leukocyte Esterase Urine WBC Urine Mucus 09/07/17 09/07/17 05:42 06:01 Sodium 136 L Chloride 108 H Carbon Dioxide 18 L BUN 22 H Glucose 291 H POC Glucose (mg/dL) 282 H Total Bilirubin <0.1 L Total Protein 4.9 L Albumin 2.8 L Urine Appearance Urine Glucose (UA) Ur Leukocyte Esterase Urine WBC Urine Mucus - Diagnostic Findings Chest x-ray: report reviewed (Chest x-ray labs and medications are all reviewed. ), image reviewed Assessment and Plan Assessment: Assessment Postop day #1, robotic-assisted thoracoscopic left upper lobectomy with mediastinal lymph node dissection and fiberoptic bronchoscopy with clearance of mucous plugs, what is believed to be a early stage lung cancer. History of CAD History of myocardial infarction Previous stenting of the LAD History of gastroesophageal reflux disease History of irritable bowel syndrome History of COPD Type 2 diabetes Anxiety Hyperlipidemia Restless leg syndrome Plan: Plan dated 09/07/2017 The patient should continue with deep breathing coughing and clearing of secretions. With her acute pain during her evaluation today, we did give her 0.5 mg of Dilaudid one time. She'll continue using the incentive spirometer every hour. Additional recommendations and suggestions are forthcoming. Labs x -rays a medications are reviewed. Hopeful discharge in the next day or so. Time with Patient: Greater than 30
[2017-09-07 11:35] LABS: Glucose,Whole Blood 400 mg/dL (75-99)
[2017-09-07 11:35] LABS: Glucose,Whole Blood 497 mg/dL (75-99)
[2017-09-07] MEDS ORDERED: ACETAMINOPHEN IV (For NPO) 1,000 MG in EMPTY BAG 1 BAG IVPB SCH (12:00)
[2017-09-07] MEDS: INSULIN DETEMIR 100 UNIT/ML 10 ML VIAL SQ SCH (12:10)
[2017-09-07] MEDS: traMADol 50 MG TAB PO SCH ×2 (14:03→20:34)
[2017-09-07 16:52] LABS: Glucose,Whole Blood 326 mg/dL (75-99)
[2017-09-07] MEDS: ACETAMINOPHEN IV (For NPO) 660 MG in EMPTY BAG 1 BAG IVPB SCH ×2 (17:32→23:06)
[2017-09-07] MEDS: OXYBUTYNIN XL 5 MG TAB.ER.24 PO SCH (20:41)
[2017-09-07 21:04] LABS: Glucose,Whole Blood 320 mg/dL (75-99)
[2017-09-08] MEDS: traMADol 50 MG TAB PO SCH ×4 (02:52→20:04)
[2017-09-08] MEDS: KETOROLAC 30 MG/ML 1 ML VIAL IVP SCH ×4 (05:31→23:51)
[2017-09-08] MEDS: ACETAMINOPHEN IV (For NPO) 660 MG in EMPTY BAG 1 BAG IVPB SCH ×2 (05:43→12:39)
[2017-09-08 06:02] LABS: Glucose,Whole Blood 177 mg/dL (75-99)
[2017-09-08 06:32] LABS: Anion Gap 9 mmol/L; Blood Urea Nitrogen 21 mg/dL (7-17); Calcium 9.1 mg/dL (8.4-10.2); Carbon Dioxide 20 mmol/L (22-30); Chloride 107 mmol/L (98-107); Glucose 169 mg/dL (74-99); Potassium 4.5 mmol/L (3.5-5.1); Sodium 136 mmol/L (137-145)
[2017-09-08] MEDS: INSULIN ASPART 100 UNIT/ML 1 ML 10 ML VIAL SQ SCH ×5 (06:39→21:23)
[2017-09-08] MEDS: PANTOPRAZOLE 40 MG TABLET PO SCH (06:39)
[2017-09-08 06:45] LABS: HCT 36.9 % (34.0-46.0); HGB 12.1 gm/dL (11.4-16.0); MCH 28.9 pg (25.0-35.0); MCHC 32.7 g/dL (31.0-37.0); MCV 88.3 fL (80.0-100.0); Mean Platelet Volume 7.4; Platelet Count 207 k/uL (150-450); RBC 4.18 m/uL (3.80-5.40); RDW 14.9 % (11.5-15.5); WBC 8.7 k/uL (3.8-10.6)
--- NOTE | 2017-09-08 07:31 | XR ---
EXAMINATION: XR chest 1V portable DATE AND TIME: 09/08/2017 6:32 AM ORDERING PROVIDER: Vee Martinez CLINICAL INDICATION: post left lobectomy TECHNIQUE: AP portable COMPARISON: AP portable radiograph 09/07/2017 at 6:13 AM DESCRIPTION: Left chest tube is in place. There is a tiny visceral line size and high in the left ape x, consistent with minute pneumothorax. Minimal gas is seen just lateral to the ribs on the left, at the level of the cardiac apex. The right pleural space is negative. The left hemidiaphragm is prominently elevated and the stomach is gas distended, both of these findin gs are stable. Overall lung inflation pattern is similar to the prior study, with evidence of mild interstitial phas e pulmonary edema within the mid and lower lung zones and with exclusion of left lung base consolidat ion not possible. Cardiac mediastinal silhouette and bones and soft tissues are otherwise unremarkable. Impression: 1. Similar appearance, as discussed. 2. Minute left pneumothorax.
[2017-09-08] MEDS ORDERED: METOCLOPRAMIDE 5 MG/ML 2 ML VIAL IVP STA (07:58)
--- NOTE | 2017-09-08 08:10 | P.PN ---
Subjective Progress Note Date: 09/08/17 Principal diagnosis: Left upper lobe mass. Medical history of coronary artery disease with recent stenting of the left anterior descending coronary artery in December 2016, perforated gastric ulcer with exploratory laparotomy, ITP, hypothyroid, diabetes mellitus type 2, previous tobacco dependence. POD #2 robotic assisted thoracoscopic left upper lobectomy with mediastinal lymph node dissection and fiberoptic bronchoscopy with clearance of mucous plug. Patient's currently laying in bed in no significant distress. She was sleeping heavily upon initial assessment but with waking up does state she still has pain at her chest tube site which is better controlled. No other new complaints. Objective - Vital Signs Vital signs: Vital Signs Temp 97.7 F 09/08/17 03:47 Pulse 89 09/08/17 03:50 Resp 17 09/08/17 03:50 BP 109/65 09/08/17 03:47 Pulse Ox 99 09/08/17 03:47 Intake & Output 09/07/17 09/08/17 09/08/17 18:59 06:59 18:59 Intake Total 336 1028 Output Total 520 200 Balance -184 828 Weight 60.101 kg 64 kg Intake: Intake, IV Titration 528 Amount ACETAMINOPHEN IV (For NPO 528 ) 660 mg In Empty Bag 1 bag @ 264 mls/hr IVPB Q6HR [facility] Rx#:[id number] Oral 336 500 Output: Chest Tube Drainage 200 200 Chest Tube Left Lateral 200 200 Chest Urine 320 Other: Voiding Method Toilet # Voids 3 2 - Constitutional General appearance: Present: cooperative, no acute distress - Respiratory Details: Lungs sounds diminished bilaterally. Respirations even, nonlabored. Currently on 3 L nasal cannula with oxygen saturation 99%. Able to achieve 500 mL on incentive spirometry. Left pleural chest tube to continuous wall suction, 100 mL serosanguineous drainage overnight, 400 mL in the last 24 hours, no air leak present. - Cardiovascular Details: S1, S2 present. Regular rate and rhythm, sinus rhythm on telemetry. Palpable peripheral pulses bilaterally. No edema present. No calf pain or tenderness noted. SCDs present. - Gastrointestinal Gastrointestinal Comment(s): Abdomen soft, nontender, nondistended. Active bowel sounds 4 quadrants. Tolerating diet. - Genitourinary Genitourinary Comment(s): Pino discontinued yesterday. Patient continues to void clear, yellow urine. - Integumentary Integumentary Comment(s): Skin is warm and dry with evidence of good perfusion. Left lateral wall incisions covered with dry intact Band-Aids. Left pleural chest tube site covered with dry intact dressing. - Neurologic Neurologic: Present: CNII-XII intact - Musculoskeletal Musculoskeletal: Present: gait normal, strength equal bilaterally - Psychiatric Psychiatric: Present: A&O x's 3, appropriate affect, intact judgment & insight - Allied health notes Allied health notes reviewed: nursing - Labs CBC & Chem 7: 09/08/17 05:49 09/08/17 05:49 Labs: Abnormal Lab Results - Last 24 Hours (Table) 09/07/17 09/07/17 09/07/17 Range/Units 11:32 11:34 16:42 Sodium (137-145) mmol/L Carbon Dioxide (22-30) mmol/L BUN (7-17) mg/dL Glucose (74-99) mg/dL POC Glucose (mg/dL) 497 H 400 H 326 H (75-99) mg/dL 09/07/17 09/08/17 09/08/17 Range/Units 21:02 05:49 06:00 Sodium 136 L (137-145) mmol/L Carbon Dioxide 20 L (22-30) mmol/L BUN 21 H (7-17) mg/dL Glucose 169 H (74-99) mg/dL POC Glucose (mg/dL) 320 H 177 H (75-99) mg/dL - Imaging and Cardiology Chest x-ray: report reviewed, image reviewed Assessment and Plan (1) Mass of upper lobe of left lung Current Visit: Yes Status: Acute Code(s): R91.8 - OTHER NONSPECIFIC ABNORMAL FINDING OF LUNG FIELD SNOMED Code(s): 963325452 (2) Coronary artery disease Current Visit: Yes Status: Chronic Code(s): I25.10 - ATHSCL HEART DISEASE OF [place] CORONARY ARTERY W/O ANG PCTRS SNOMED Code(s): 56213747 (3) History of heart artery stent Current Visit: Yes Status: Chronic Code(s): Z95.5 - PRESENCE OF CORONARY ANGIOPLASTY IMPLANT AND GRAFT SNOMED Code(s): 810962847 (4) Hypothyroid Current Visit: Yes Status: Chronic Code(s): E03.9 - HYPOTHYROIDISM, UNSPECIFIED SNOMED Code(s): 80689630 (5) Diabetes mellitus Current Visit: Yes Status: Chronic Code(s): E11.9 - TYPE 2 DIABETES MELLITUS WITHOUT COMPLICATIONS SNOMED Code(s): 18506019 (6) Tobacco dependence in remission Current Visit: Yes Status: Resolved Code(s): F17.201 - NICOTINE DEPENDENCE, UNSPECIFIED, IN REMISSION SNOMED Code(s): 386826814 (7) History of gastric ulcer Current Visit: Yes Status: Resolved Code(s): Z87.19 - PERSONAL HISTORY OF OTHER DISEASES OF THE DIGESTIVE SYSTEM SNOMED Code(s): 203928899 (8) History of ITP Current Visit: Yes Status: Resolved Priority: Medium Code(s): Z86.2 - PRSNL HISTORY [facility] Code(s): 280298945 Plan: 1. Left pleural chest tube placed to waterseal. Will monitor for air leak and output. 2. Will monitor daily x-rays. 3. Wean O2 as tolerated. Encourage incentive spirometry use 10 times every hour. 4. Encourage continued smoking cessation. 5. Bronchodilators per pulmonology. 6. Pain control with ordered medication regimen. 7. GI/DVT prophylaxis. 8. Increase activity, ambulate in hallway. 9. More recommendations to follow. Time with Patient: Greater than 30
[2017-09-08] MEDS: IPRATROPIUM-ALBUTEROL 3 ML NEB IH SCH ×4 (08:41→20:08)
[2017-09-08] MEDS: SYMBICORT 160-4.5 MCG INHALER INHALATION SCH ×2 (08:41→20:08)
[2017-09-08] MEDS: LISINOPRIL 5 MG TAB PO SCH ×2 (08:42→20:04)
[2017-09-08] MEDS: ATORVASTATIN 80 MG TAB PO SCH (08:42)
[2017-09-08] MEDS: CLOPIDOGREL 75 MG TAB PO SCH (08:42)
[2017-09-08] MEDS: ASPIRIN 81 MG PO SCH (08:42)
[2017-09-08] MEDS: HEPARIN SODIUM,PORCINE 5,000 UNIT/ML 1 ML VIAL SQ SCH ×3 (08:42→23:51)
[2017-09-08] MEDS: METOPROLOL TARTRATE 25 MG TAB PO SCH ×2 (08:42→20:04)
--- NOTE | 2017-09-08 09:52 | P.PN ---
Subjective Progress Note Date: 09/08/17 Principal diagnosis: Lung mass Progress note dated 09/08/2017 This is a 66-year-old female by referred to Dr. Jules for robotic-assisted thoracoscopic left upper lobectomy with mediastinal lymph node dissection. She is postop day #2. The patient is doing relatively well. Her biggest issue is pain. She has a history of CAD and myocardial infarction, previous stent to the LAD, GERD, irritable bowel syndrome, COPD, type 2 diabetes, anxiety, hyperlipidemia and restless leg syndrome. The patient's chest was removed from suction and is placed on waterseal. Chest x-ray will be done. Chest tube may come out later today. Again her biggest issue right now is just pain. Objective - Vital Signs Vital signs: Vital Signs Temp 97.7 F 09/08/17 08:00 Pulse 94 09/08/17 08:57 Resp 16 09/08/17 08:00 BP 110/51 09/08/17 08:00 Pulse Ox 98 09/08/17 08:00 Intake & Output 09/07/17 09/08/17 09/08/17 18:59 06:59 18:59 Intake Total 336 1028 240 Output Total 520 200 60 Balance -184 828 180 Weight 60.101 kg 64 kg Intake: Intake, IV Titration 528 Amount ACETAMINOPHEN IV (For NPO 528 ) 660 mg In Empty Bag 1 bag @ 264 mls/hr IVPB Q6HR [facility] Rx#:[id number] Oral 336 500 240 Output: Chest Tube Drainage 200 200 60 Chest Tube Left Lateral 200 200 60 Chest Urine 320 Other: Voiding Method Toilet # Voids 3 2 - Exam No acute distress, oriented 3. Nasal O2 in place. HEENT examination is grossly unremarkable. Mucous membranes are moist. No oral lesions. Neck supple. Full range of motion. No adenopathy thyromegaly or neck vein distention. Cardiovascular examination reveals regular rhythm rate. S1-S2 normal. No S3 or S4. No discernible murmur noted. Lungs reveal a few scattered rhonchi. Breath sounds are diminished on the left. No crackles or wheezes. A left-sided chest tube is noted. Abdomen soft bowel sounds are heard. No masses or tenderness. Extremities are intact. No cyanosis clubbing or edema. Skin is without rash or lesion. Neurologic examination is brief but nonfocal. - Labs CBC & Chem 7: 09/08/17 05:49 09/08/17 05:49 Labs: Abnormal Lab Results - Last 24 Hours (Table) 09/07/17 09/07/17 09/07/17 Range/Units 11:32 11:34 16:42 Sodium (137-145) mmol/L Carbon Dioxide (22-30) mmol/L BUN (7-17) mg/dL Glucose (74-99) mg/dL POC Glucose (mg/dL) 497 H 400 H 326 H (75-99) mg/dL 09/07/17 09/08/17 09/08/17 Range/Units 21:02 05:49 06:00 Sodium 136 L (137-145) mmol/L Carbon Dioxide 20 L (22-30) mmol/L BUN 21 H (7-17) mg/dL Glucose 169 H (74-99) mg/dL POC Glucose (mg/dL) 320 H 177 H (75-99) mg/dL Assessment and Plan Assessment: Assessment Postop day #2, robotic-assisted thoracoscopic left upper lobectomy with mediastinal lymph node dissection and fiberoptic bronchoscopy with clearance of mucous plugs, what is believed to be a early stage lung cancer. History of CAD History of myocardial infarction Previous stenting of the LAD History of gastroesophageal reflux disease History of irritable bowel syndrome History of COPD Type 2 diabetes Anxiety Hyperlipidemia Restless leg syndrome Plan: Plan dated 09/07/2017 The patient should continue with deep breathing coughing and clearing of secretions. With her acute pain during her evaluation today, we did give her 0.5 mg of Dilaudid one time. She'll continue using the incentive spirometer every hour. Additional recommendations and suggestions are forthcoming. Labs x -rays a medications are reviewed. Hopeful discharge in the next day or so. Plan dated 09/08/2017 The patient is doing well. The biggest issue is pain control. From the pulmonary standpoint she is stable. We'll recommending deep breathing coughing and clearing secretions and hourly use of the incentive spirometer. She is on breathing treatments. We'll continue to follow. Prognosis is good. The chest tube make come out today. Possible discharge later today or tomorrow. The chest tube is currently on water-seal. Time with Patient: Less than 30
[2017-09-08 11:33] LABS: Glucose,Whole Blood 408 mg/dL (75-99)
[2017-09-08 11:40] LABS: Glucose,Whole Blood 441 mg/dL (75-99)
[2017-09-08] MEDS: INSULIN DETEMIR 100 UNIT/ML 10 ML VIAL SQ SCH (12:39)
[2017-09-08 16:54] LABS: Glucose,Whole Blood 286 mg/dL (75-99)
[2017-09-08] MEDS: ALPRAZolam 0.25 MG TAB PO PRN (18:07)
[2017-09-08] MEDS: OXYBUTYNIN XL 5 MG TAB.ER.24 PO SCH (20:04)
[2017-09-08 21:13] LABS: Glucose,Whole Blood 227 mg/dL (75-99)
[2017-09-08] MEDS: INSULIN NPH 300 UNIT/3 ML VIAL SQ SCH (21:21)
[2017-09-09] MEDS: traMADol 50 MG TAB PO SCH ×4 (02:07→20:07)
[2017-09-09 05:53] LABS: Glucose,Whole Blood 87 mg/dL (75-99)
[2017-09-09] MEDS: KETOROLAC 30 MG/ML 1 ML VIAL IVP SCH ×4 (06:04→23:17)
[2017-09-09] MEDS: PANTOPRAZOLE 40 MG TABLET PO SCH (06:06)
[2017-09-09] MEDS: INSULIN ASPART 100 UNIT/ML 1 ML 10 ML VIAL SQ SCH ×5 (06:06→20:57)
[2017-09-09 06:11] LABS: HCT 37.1 % (34.0-46.0); HGB 12.2 gm/dL (11.4-16.0); MCH 29.3 pg (25.0-35.0); MCHC 32.8 g/dL (31.0-37.0); MCV 89.4 fL (80.0-100.0); Mean Platelet Volume 7.5; Platelet Count 225 k/uL (150-450); RBC 4.15 m/uL (3.80-5.40); RDW 14.8 % (11.5-15.5); WBC 8.5 k/uL (3.8-10.6)
[2017-09-09 06:21] LABS: Anion Gap 8 mmol/L; Blood Urea Nitrogen 19 mg/dL (7-17); Calcium 9.1 mg/dL (8.4-10.2); Carbon Dioxide 24 mmol/L (22-30); Chloride 107 mmol/L (98-107); Glucose 85 mg/dL (74-99); Potassium 4.6 mmol/L (3.5-5.1); Sodium 139 mmol/L (137-145)
--- NOTE | 2017-09-09 07:19 | XR ---
EXAMINATION TYPE: XR chest 2V DATE OF EXAM: 09/09/2017 COMPARISON: 09/08/2017 TECHNIQUE: PA and lateral views submitted. HISTORY: Postop FINDINGS: Postsurgical changes in the soft tissue seen. There is a small left apical pneumothorax measuring ladi roximately 5-10%. Bilateral small effusion left basilar consolidation noted. There is a pulmonary nod ule measuring 1 cm unremarkable. Affected. IMPRESSION: 1. Postoperative change with bilateral consolidation and small effusion. Approximately 5% to 10% left apical pneumothorax. 2. 1 cm right upper lobe pulmonary nodule.
[2017-09-09] MEDS ORDERED: METOCLOPRAMIDE 5 MG/ML 2 ML VIAL IVP STA (08:13)
[2017-09-09] MEDS: SYMBICORT 160-4.5 MCG INHALER INHALATION SCH ×2 (08:19→20:52)
[2017-09-09] MEDS: IPRATROPIUM-ALBUTEROL 3 ML NEB IH SCH ×4 (08:20→20:52)
--- NOTE | 2017-09-09 08:38 | P.PN ---
Subjective Progress Note Date: 09/09/17 Principal diagnosis: Left upper lobe mass. Medical history of coronary artery disease with recent stenting of the left anterior descending coronary artery in December 2016, perforated gastric ulcer with exploratory laparotomy, ITP, hypothyroid, diabetes mellitus type 2, previous tobacco dependence. POD #3 robotic assisted thoracoscopic left upper lobectomy with mediastinal lymph node dissection and fiberoptic bronchoscopy with clearance of mucous plug. Patient's currently laying in bed in no significant distress. States pain is somewhat controlled with ordered medications. No other new complaints. Objective - Vital Signs Vital signs: Vital Signs Temp 97.2 F L 09/09/17 03:00 Pulse 84 09/09/17 08:20 Resp 18 09/09/17 03:00 BP 116/56 09/09/17 03:00 Pulse Ox 98 09/09/17 08:20 Intake & Output 09/08/17 09/09/17 09/09/17 18:59 06:59 18:59 Intake Total 1192 Output Total 100 136 Balance 1092 -136 Weight 64 kg Intake: Oral 1192 Output: Chest Tube Drainage 100 136 Chest Tube Left Lateral 100 136 Chest Other: Voiding Method Toilet # Voids 2 1 - Constitutional General appearance: Present: cooperative, no acute distress - Respiratory Details: Lungs sounds diminished bilaterally. Respirations even, nonlabored. Currently on 2 L nasal cannula with oxygen saturation 96%. Able to achieve 500 mL on incentive spirometry. Left pleural chest tube to waterseal, 60 mL serosanguineous drainage overnight, 300 mL in the last 24 hours, small intermittent air leak present. - Cardiovascular Details: S1, S2 present. Regular rate and rhythm, sinus rhythm on telemetry. Palpable peripheral pulses bilaterally. No edema present. No calf pain or tenderness noted. SCDs present. - Gastrointestinal Gastrointestinal Comment(s): Abdomen soft, nontender, nondistended. Active bowel sounds 4 quadrants. Tolerating diet. Positive belching, negative flatus. - Genitourinary Genitourinary Comment(s): Patient continues to void clear, yellow urine. - Integumentary Integumentary Comment(s): Skin is warm and dry with evidence of good perfusion. Left lateral wall incisions covered with dry intact Band-Aids. Left pleural chest tube site covered with dry intact dressing. - Neurologic Neurologic: Present: CNII-XII intact - Musculoskeletal Musculoskeletal: Present: gait normal, strength equal bilaterally - Psychiatric Psychiatric: Present: A&O x's 3, appropriate affect, intact judgment & insight - Allied health notes Allied health notes reviewed: nursing - Labs CBC & Chem 7: 09/09/17 05:35 09/09/17 05:35 Labs: Abnormal Lab Results - Last 24 Hours (Table) 09/08/17 09/08/17 09/08/17 Range/Units 11:30 11:38 16:31 BUN (7-17) mg/dL POC Glucose (mg/dL) 408 H 441 H 286 H (75-99) mg/dL 09/08/17 09/09/17 Range/Units 21:13 05:35 BUN 19 H (7-17) mg/dL POC Glucose (mg/dL) 227 H (75-99) mg/dL - Imaging and Cardiology Chest x-ray: report reviewed, image reviewed Assessment and Plan (1) Mass of upper lobe of left lung Current Visit: Yes Status: Acute Code(s): R91.8 - OTHER NONSPECIFIC ABNORMAL FINDING OF LUNG FIELD SNOMED Code(s): 119167633 (2) Coronary artery disease Current Visit: Yes Status: Chronic Code(s): I25.10 - ATHSCL HEART DISEASE OF [place] CORONARY ARTERY W/O ANG PCTRS SNOMED Code(s): 65341238 (3) History of heart artery stent Current Visit: Yes Status: Chronic Code(s): Z95.5 - PRESENCE OF CORONARY ANGIOPLASTY IMPLANT AND GRAFT SNOMED Code(s): 941864912 (4) Hypothyroid Current Visit: Yes Status: Chronic Code(s): E03.9 - HYPOTHYROIDISM, UNSPECIFIED SNOMED Code(s): 16631556 (5) Diabetes mellitus Current Visit: Yes Status: Chronic Code(s): E11.9 - TYPE 2 DIABETES MELLITUS WITHOUT COMPLICATIONS SNOMED Code(s): 80239359 (6) Tobacco dependence in remission Current Visit: Yes Status: Resolved Code(s): F17.201 - NICOTINE DEPENDENCE, UNSPECIFIED, IN REMISSION SNOMED Code(s): 725749491 (7) History of gastric ulcer Current Visit: Yes Status: Resolved Code(s): Z87.19 - PERSONAL HISTORY OF OTHER DISEASES OF THE DIGESTIVE SYSTEM SNOMED Code(s): 204317403 (8) History of ITP Current Visit: Yes Status: Resolved Priority: Medium Code(s): Z86.2 - PRSNL HISTORY OF DIS OF THE BLD/BLD-FORM ORG/IMMUN MECHNSM SNOMED Code(s): 454865108 Plan: 1. Continue left pleural chest tube placed to waterseal. Will monitor for cessation of air leak and output. 2. Will monitor daily x-rays. 3. Wean O2 as tolerated. Encourage incentive spirometry use 10 times every hour. 4. Encourage continued smoking cessation. 5. Bronchodilators per pulmonology. 6. Pain control with ordered medication regimen. 7. GI/DVT prophylaxis. 8. Increase activity, ambulate in hallway. 9. Will give her Reglan IV push for large gastric air bubble. 10. More recommendations to follow. Time with Patient: Greater than 30
[2017-09-09] MEDS: INSULN ASP PRT/INSULIN ASPART 100 UNIT/ML 10 ML VIAL SQ SCH (08:47)
[2017-09-09] MEDS: CLOPIDOGREL 75 MG TAB PO SCH (08:51)
[2017-09-09] MEDS: ATORVASTATIN 80 MG TAB PO SCH (08:51)
[2017-09-09] MEDS: HEPARIN SODIUM,PORCINE 5,000 UNIT/ML 1 ML VIAL SQ SCH ×3 (08:51→23:16)
[2017-09-09] MEDS: ASPIRIN 81 MG PO SCH (08:51)
[2017-09-09] MEDS: METOPROLOL TARTRATE 25 MG TAB PO SCH ×2 (08:51→20:54)
[2017-09-09] MEDS: LISINOPRIL 5 MG TAB PO SCH ×2 (08:51→20:54)
--- NOTE | 2017-09-09 09:51 | P.PN ---
Subjective Progress Note Date: 09/09/17 Principal diagnosis: Lung mass Progress note dated 09/08/2017 This is a 66-year-old female by referred to Dr. Jules for robotic-assisted thoracoscopic left upper lobectomy with mediastinal lymph node dissection. She is postop day #2. The patient is doing relatively well. Her biggest issue is pain. She has a history of CAD and myocardial infarction, previous stent to the LAD, GERD, irritable bowel syndrome, COPD, type 2 diabetes, anxiety, hyperlipidemia and restless leg syndrome. The patient's chest was removed from suction and is placed on waterseal. Chest x-ray will be done. Chest tube may come out later today. Again her biggest issue right now is just pain. Progress note dated 09/09/2017 66-year-old female postop day #3 status post robotic-assisted thoracoscopic left upper lobectomy and mediastinal lymph node dissection. The surgery was done by Dr. Mauri Jules. She's doing relatively well. Still complains of a lot of pain. She has a previous history of CAD with myocardial infarction and previous stent placement to the LAD GERD IBS COPD type 2 diabetes anxiety hyperlipidemia and restless leg syndrome. Her biggest issue has been pain control. She still having quite a bit of pain in that left upper chest area. Chest tube is to waterseal. Pathology is pending. Objective - Vital Signs Vital signs: Vital Signs Temp 97.3 F L 09/09/17 08:00 Pulse 86 09/09/17 08:36 Resp 18 09/09/17 08:00 BP 147/65 09/09/17 08:00 Pulse Ox 98 09/09/17 08:20 Intake & Output 09/08/17 09/09/17 09/09/17 18:59 06:59 18:59 Intake Total 1192 Output Total 100 136 140 Balance 1092 -136 -140 Weight 64 kg Intake: Oral 1192 Output: Chest Tube Drainage 100 136 140 Chest Tube Left Lateral 100 136 140 Chest Other: Voiding Method Toilet # Voids 2 1 - Exam No acute distress, oriented 3. Nasal O2 in place. HEENT examination is grossly unremarkable. Mucous membranes are moist. No oral lesions. Neck supple. Full range of motion. No adenopathy thyromegaly or neck vein distention. Cardiovascular examination reveals regular rhythm rate. S1-S2 normal. No S3 or S4. No discernible murmur noted. Lungs reveal a few scattered rhonchi. Breath sounds are diminished on the left. No crackles or wheezes. A left-sided chest tube is noted. Abdomen soft bowel sounds are heard. No masses or tenderness. Extremities are intact. No cyanosis clubbing or edema. Skin is without rash or lesion. Neurologic examination is brief but nonfocal. - Labs CBC & Chem 7: 09/09/17 05:35 09/09/17 05:35 Labs: Abnormal Lab Results - Last 24 Hours (Table) 09/08/17 09/08/17 09/08/17 Range/Units 11:30 11:38 16:31 BUN (7-17) mg/dL POC Glucose (mg/dL) 408 H 441 H 286 H (75-99) mg/dL 09/08/17 09/09/17 Range/Units 21:13 05:35 BUN 19 H (7-17) mg/dL POC Glucose (mg/dL) 227 H (75-99) mg/dL Assessment and Plan Assessment: Assessment Postop day #3, robotic-assisted thoracoscopic left upper lobectomy with mediastinal lymph node dissection and fiberoptic bronchoscopy with clearance of mucous plugs, what is believed to be a early stage lung cancer. Pathology is currently pending. History of CAD History of myocardial infarction Previous stenting of the LAD History of gastroesophageal reflux disease History of irritable bowel syndrome History of COPD Type 2 diabetes Anxiety Hyperlipidemia Restless leg syndrome Plan: Plan dated 09/07/2017 The patient should continue with deep breathing coughing and clearing of secretions. With her acute pain during her evaluation today, we did give her 0.5 mg of Dilaudid one time. She'll continue using the incentive spirometer every hour. Additional recommendations and suggestions are forthcoming. Labs x -rays a medications are reviewed. Hopeful discharge in the next day or so. Plan dated 09/08/2017 The patient is doing well. The biggest issue is pain control. From the pulmonary standpoint she is stable. We'll recommending deep breathing coughing and clearing secretions and hourly use of the incentive spirometer. She is on breathing treatments. We'll continue to follow. Prognosis is good. The chest tube make come out today. Possible discharge later today or tomorrow. The chest tube is currently on water-seal. Plan dated 09/09/2017 The patient is doing reasonably well. The biggest issue is still pain management. The patient is not having any difficulty in her breathing other than when she takes a deep breath because of the pain. She is doing deep breathing coughing and clearing her secretions. She is using incentive spirometer as instructed. Other than that, she is doing reasonably well. Chest tube will be placed to waterseal. No additional recommendations are made. We'll continue to follow. Pathology is currently pending. Time with Patient: Less than 30
[2017-09-09] MEDS: DOCUSATE 100 MG CAP PO SCH (11:40)
[2017-09-09] MEDS: INSULIN DETEMIR 100 UNIT/ML 10 ML VIAL SQ SCH (11:40)
[2017-09-09 11:53] LABS: Glucose,Whole Blood 129 mg/dL (75-99)
[2017-09-09 16:30] LABS: Glucose,Whole Blood 152 mg/dL (75-99)
[2017-09-09] MEDS: OXYBUTYNIN XL 5 MG TAB.ER.24 PO SCH (20:55)
[2017-09-09 20:57] LABS: Glucose,Whole Blood 74 mg/dL (75-99)
[2017-09-09] MEDS: INSULIN NPH 300 UNIT/3 ML VIAL SQ SCH (23:16)
[2017-09-10] MEDS: traMADol 50 MG TAB PO SCH ×5 (01:46→21:25)
[2017-09-10 06:03] LABS: Glucose,Whole Blood 223 mg/dL (75-99)
[2017-09-10] MEDS: KETOROLAC 30 MG/ML 1 ML VIAL IVP SCH ×2 (06:16→11:52)
[2017-09-10] MEDS: PANTOPRAZOLE 40 MG TABLET PO SCH (06:20)
[2017-09-10] MEDS: INSULIN ASPART 100 UNIT/ML 1 ML 10 ML VIAL SQ SCH ×5 (06:57→21:07)
[2017-09-10] MEDS: INSULN ASP PRT/INSULIN ASPART 100 UNIT/ML 10 ML VIAL SQ SCH (06:58)
[2017-09-10] MEDS: IPRATROPIUM-ALBUTEROL 3 ML NEB IH SCH ×4 (07:56→19:07)
[2017-09-10] MEDS: SYMBICORT 160-4.5 MCG INHALER INHALATION SCH (07:56)
--- NOTE | 2017-09-10 08:03 | P.PN ---
<Vee Martinez - Last Filed: 09/10/17 14:36> Subjective Progress Note Date: 09/10/17 Principal diagnosis: Left upper lobe mass. Medical history of coronary artery disease with recent stenting of the left anterior descending coronary artery in December 2016, perforated gastric ulcer with exploratory laparotomy, ITP, hypothyroid, diabetes mellitus type 2, previous tobacco dependence. POD #4 robotic assisted thoracoscopic left upper lobectomy with mediastinal lymph node dissection and fiberoptic bronchoscopy with clearance of mucous plug. Patient's currently sitting up in bed eating breakfast in no significant distress. States pain is somewhat controlled with ordered medications. No other new complaints. Objective - Vital Signs Vital signs: Vital Signs Temp 97.9 F 09/09/17 20:20 Pulse 79 09/10/17 03:59 Resp 18 09/10/17 03:59 BP 132/67 09/10/17 03:59 Pulse Ox 95 09/10/17 03:59 Intake & Output 09/09/17 09/10/17 09/10/17 18:59 06:59 18:59 Intake Total 720 250 400 Output Total 160 80 150 Balance 560 170 250 Weight 60.7 kg Intake: Oral 720 250 400 Output: Chest Tube Drainage 160 40 Chest Tube Left Lateral 160 40 Chest Drainage 40 150 Left Lateral Chest 40 150 Other: Voiding Method Toilet # Voids 1 3 - Constitutional General appearance: Present: cooperative, no acute distress - Respiratory Details: Lungs sounds diminished bilaterally. Respirations even, nonlabored. Currently on 2 L nasal cannula with oxygen saturation 95%. Able to achieve 750 mL on incentive spirometry. Left pleural chest tube to waterseal, 75 mL serosanguineous drainage overnight, 230 mL in the last 24 hours, small intermittent air leak still present. - Cardiovascular Details: S1, S2 present. Regular rate and rhythm, sinus rhythm on telemetry. Palpable peripheral pulses bilaterally. No edema present. No calf pain or tenderness noted. SCDs present. - Gastrointestinal Gastrointestinal Comment(s): Abdomen soft, nontender, nondistended. Active bowel sounds 4 quadrants. Tolerating diet. Positive belching, positive flatus. - Genitourinary Genitourinary Comment(s): Patient continues to void clear, yellow urine. - Integumentary Integumentary Comment(s): Skin is warm and dry with evidence of good perfusion. Left lateral wall incisions covered with dry intact Band-Aids. Left pleural chest tube site covered with dry intact dressing. - Neurologic Neurologic: Present: CNII-XII intact - Musculoskeletal Musculoskeletal: Present: gait normal, strength equal bilaterally - Psychiatric Psychiatric: Present: A&O x's 3, appropriate affect, intact judgment & insight - Allied health notes Allied health notes reviewed: nursing - Labs CBC & Chem 7: 09/09/17 05:35 09/09/17 05:35 Labs: Abnormal Lab Results - Last 24 Hours (Table) 09/09/17 09/09/17 09/09/17 Range/Units 11:31 16:24 20:52 POC Glucose (mg/dL) 129 H 152 H 74 L (75-99) mg/dL 09/10/17 Range/Units 05:57 POC Glucose (mg/dL) 223 H (75-99) mg/dL - Imaging and Cardiology Chest x-ray: image reviewed Assessment and Plan (1) Mass of upper lobe of left lung Current Visit: Yes Status: Acute Code(s): R91.8 - OTHER NONSPECIFIC ABNORMAL FINDING OF LUNG FIELD SNOMED Code(s): 080819788 (2) Coronary artery disease Current Visit: Yes Status: Chronic Code(s): I25.10 - ATHSCL HEART DISEASE OF [place] CORONARY ARTERY W/O ANG PCTRS SNOMED Code(s): 12860646 (3) History of heart artery stent Current Visit: Yes Status: Chronic Code(s): Z95.5 - PRESENCE OF CORONARY ANGIOPLASTY IMPLANT AND GRAFT SNOMED Code(s): 934587902 (4) Hypothyroid Current Visit: Yes Status: Chronic Code(s): E03.9 - HYPOTHYROIDISM, UNSPECIFIED SNOMED Code(s): 65137652 (5) Diabetes mellitus Current Visit: Yes Status: Chronic Code(s): E11.9 - TYPE 2 DIABETES MELLITUS WITHOUT COMPLICATIONS SNOMED Code(s): 91289296 (6) Tobacco dependence in remission Current Visit: Yes Status: Resolved Code(s): F17.201 - NICOTINE DEPENDENCE, UNSPECIFIED, IN REMISSION SNOMED Code(s): 236316132 (7) History of gastric ulcer Current Visit: Yes Status: Resolved Code(s): Z87.19 - PERSONAL HISTORY OF OTHER DISEASES OF THE DIGESTIVE SYSTEM SNOMED Code(s): 939541416 (8) History of ITP Current Visit: Yes Status: Resolved Priority: Medium Code(s): Z86.2 - PRSNL HISTORY OF DIS OF THE BLD/BLD-FORM ORG/IMMUN [facility] SNOMED Code(s): 550389270 Plan: 1. Continue left pleural chest tube placed to waterseal. Will monitor for cessation of air leak and output. 2. Will monitor daily x-rays. 3. Wean O2 as tolerated. Encourage incentive spirometry use 10 times every hour. 4. Encourage continued smoking cessation. 5. Bronchodilators per pulmonology. 6. Pain control with ordered medication regimen. 7. GI/DVT prophylaxis. 8. Increase activity, ambulate in hallway. 9. More recommendations to follow. Time with Patient: Greater than 30 <Cornelio Porter - Last Filed: 09/10/17 14:42> Objective - Vital Signs Vital signs: Vital Signs Temp 97 F L 09/10/17 08:00 Pulse 77 09/10/17 11:47 Resp 18 09/10/17 11:47 BP 99/50 09/10/17 11:47 Pulse Ox 97 09/10/17 11:47 Intake & Output 09/09/17 09/10/17 09/10/17 18:59 06:59 18:59 Intake Total 720 250 518 Output Total 160 80 200 Balance 560 170 318 Weight 60.7 kg Intake: Oral 720 250 518 Output: Chest Tube Drainage 160 40 50 Chest Tube Left Lateral 160 40 50 Chest Drainage 40 150 Left Lateral Chest 40 150 Other: Voiding Method Toilet Toilet # Voids 1 3 - Labs CBC & Chem 7: 09/09/17 05:35 09/09/17 05:35 Labs: Abnormal Lab Results - Last 24 Hours (Table) 09/09/17 09/09/17 09/10/17 Range/Units 16:24 20:52 05:57 POC Glucose (mg/dL) 152 H 74 L 223 H (75-99) mg/dL 09/10/17 Range/Units 11:28 POC Glucose (mg/dL) 107 H (75-99) mg/dL Assessment and Plan Plan: The patient was seen and examined. The history and physical findings were verified. I agree with the above assessment and plan. The patient's chest tube is currently on waterseal. I do not see an air leak this afternoon though there may have been one earlier this morning. We will repeat an x-ray in the morning and as long as it is stable, we will remove the chest tube at that time. Otherwise she appears to be doing well. We will continue to wean her oxygen and encourage incentive spirometry. She will ambulate in the hallway with assistance.
[2017-09-10] MEDS: HEPARIN SODIUM,PORCINE 5,000 UNIT/ML 1 ML VIAL SQ SCH ×3 (08:16→22:56)
[2017-09-10] MEDS: ASPIRIN 81 MG PO SCH (08:16)
[2017-09-10] MEDS: ATORVASTATIN 80 MG TAB PO SCH (08:17)
[2017-09-10] MEDS: DOCUSATE 100 MG CAP PO SCH (08:17)
[2017-09-10] MEDS: CLOPIDOGREL 75 MG TAB PO SCH (08:17)
[2017-09-10] MEDS: LISINOPRIL 5 MG TAB PO SCH ×2 (08:17→21:09)
[2017-09-10] MEDS: METOPROLOL TARTRATE 25 MG TAB PO SCH ×2 (08:18→21:09)
--- NOTE | 2017-09-10 08:39 | XR ---
EXAMINATION TYPE: XR chest 2V DATE OF EXAM: 09/10/2017 COMPARISON: 09/09/2017 TECHNIQUE: PA and lateral views submitted. HISTORY: Postop FINDINGS: Postsurgical changes are seen 5-10% left apical pneumothorax and chest tube noted. Subcutaneous emphy sema seen. Elevated left hemidiaphragm with basilar consolidation and massive distention of the stoma ch. Tiny right pleural effusion or pleural thickening noted. Underlying COPD noted. IMPRESSION: 1. Postoperative change with 5-10% left apical pneumothorax. 2. The left lower lobe consolidation and pleural effusion. 3. Marked distention of the stomach report called to the patient's nurse.
[2017-09-10] MEDS: METOCLOPRAMIDE 5 MG/ML 2 ML VIAL IVP SCH ×4 (09:29→22:55)
[2017-09-10] MEDS ORDERED: ceFAZolin 1,000 MG VIAL ONE (11:39)
[2017-09-10] MEDS ORDERED: PHENYLEPHRINE-0.9% NACL SYG 1 MG/10 ML SYRINGE ONE (11:39)
[2017-09-10] MEDS ORDERED: NEOSTIGMINE 1 MG/ML 10 ML VIAL ONE (11:39)
[2017-09-10] MEDS ORDERED: LIDOCAINE 1% INJ 10MG/ML (20 ML MDV) ONE (11:39)
[2017-09-10] MEDS ORDERED: MIDAZOLAM 2 MG/2 ML VIAL ONE (11:39)
[2017-09-10] MEDS ORDERED: fentaNYL (PF) 50 MCG/ML 2 ML AMP ONE (11:39)
[2017-09-10] MEDS ORDERED: PROPOFOL 10 MG/ML 20 ML VIAL IV ONE (11:39)
[2017-09-10] MEDS ORDERED: ROCURONIUM BROMIDE 10 MG/ML 10 ML VIAL IV ONE (11:39)
[2017-09-10] MEDS ORDERED: SUCCINYLCHOLINE CHLORIDE 100 MG/5 ML SYR IV ONE (11:39)
[2017-09-10] MEDS ORDERED: GLYCOPYRROLATE 0.2 MG/ML 2 ML VIAL ONE (11:39)
[2017-09-10 11:52] LABS: Glucose,Whole Blood 107 mg/dL (75-99)
[2017-09-10] MEDS: INSULIN DETEMIR 100 UNIT/ML 10 ML VIAL SQ SCH (11:53)
--- NOTE | 2017-09-10 13:16 | P.PN ---
Subjective Progress Note Date: 09/10/17 66-year-old female patient with known history of COPD and FEV1 of 70% of predicted, was found to have a left upper lobe mass that showed intense uptake in the PET scan. Based on that, the patient was taken to surgery and she underwent a robotic-assisted thoracoscopy and left upper lobe resection with mediastinal lymph node dissection. The patient is postop day #4. On today's evaluation, the patient is still has a left-sided chest tube. The patient has a small amount of air leak on today's evaluation. The patient has drained approximately 75 mL of serosanguineous drainage overnight and to 30 ML's over the past 24 hours. The patient is able to continue using incentive spirometer and she is pulling up to 1000. She is on oxygen at 2 L/m nasal cannula. Hemodynamically stable. Surgical wound is dry clean and intact. No altered mentation. No chest pain. Pain is under good control for now. The chest x- ray that was done today showed a tiny 5-10% left apical pneumothorax. There is also a left lower lobe consolidation pleural effusion. There is stomach distention and there is also some periods emphysema along the left chest wall. Objective - Vital Signs Vital signs: Vital Signs Temp 97 F L 09/10/17 08:00 Pulse 77 09/10/17 11:47 Resp 18 09/10/17 11:47 BP 99/50 09/10/17 11:47 Pulse Ox 97 09/10/17 11:47 Intake & Output 09/09/17 09/10/17 09/10/17 18:59 06:59 18:59 Intake Total 720 250 400 Output Total 160 80 200 Balance 560 170 200 Weight 60.7 kg Intake: Oral 720 250 400 Output: Chest Tube Drainage 160 40 50 Chest Tube Left Lateral 160 40 50 Chest Drainage 40 150 Left Lateral Chest 40 150 Other: Voiding Method Toilet Toilet # Voids 1 3 - Exam Gen. appearance the patient is calm comfortable likely distress Head exam was generally normal. There was no scleral icterus or corneal arcus. Mucous membranes were moist. Neck was supple and without jugular venous distension, thyromegaly, or carotid bruits. Carotids were easily palpable bilaterally. There was no adenopathy. Lungs sounds are diminished on the left compared to the right. The patient also has a saphenous emphysema along the left lateral chest for diarrhea. Chest tube is in a good location. No evidence of any hematoma. The patient has mild intermittent as observed in the Pleur-evac. Cardiac exam revealed the PMI to be normally situated and sized. The rhythm was regular and no extrasystoles were noted during several minutes of auscultation. The first and second heart sounds were normal and physiologic splitting of the second heart sound was noted. There were no murmurs, rubs, clicks, or gallops. Abdominal exam revealed normal bowel sounds. The abdomen was soft, non-tender, and without masses, organomegaly, or appreciable enlargement of the abdominal aorta. Examination of the extremities revealed easily palpable radial, femoral and pedal pulses. There was no cyanosis, clubbing or edema. Examination of the skin revealed no evidence of significant rashes, suspicious appearing nevi or other concerning lesions. Neurologically the patient is awake and alert and there is no focal neurological deficits. - Labs CBC & Chem 7: 09/09/17 05:35 09/09/17 05:35 Labs: Abnormal Lab Results - Last 24 Hours (Table) 09/09/17 09/09/17 09/10/17 Range/Units 16:24 20:52 05:57 POC Glucose (mg/dL) 152 H 74 L 223 H (75-99) mg/dL 09/10/17 Range/Units 11:28 POC Glucose (mg/dL) 107 H (75-99) mg/dL Assessment and Plan Plan: Assessment 1 robotic-assisted thoracoscopic left upper lobe lobectomy with mediastinal lymph node dissection for a left upper lobe mass. The patient is postop day # 4. The patient has a tiny 5-10% residual pneumothorax on today's chest x-ray and there is evidence of mild intermittent air leak through the chest tube. 2 COPD at baseline with an FEV1 of 70% of predicted preoperatively 3 left hemidiaphragmatic elevation following a left upper lobe resection. This could be related to volume loss/lobectomy. At the same and the patient has some gastric distention, a symptomatically at this stage 4 coronary artery disease with previous history of coronary intervention and stenting 5 hypothyroidism 6 diabetes mellitus 7 history of ITP 8 history of smoking currently in remission Plan Suggest continuing to use the incentive spirometer. Monitor the intermittent leaks of the chest tube. Repeat chest x-ray in the morning. Stop the Symbicort it was this patient a combination of Brovana and Pulmicort neb last 2 minutes twice a day. Awaiting final path from the surgical resection of the left upper lobe. We'll continue to follow make further recommendations based on her progress. She is hemodynamically stable. Pain is under good control for now. DVT and GI prophylaxis. Aspirin and Plavix. NovoLog [id number] mix along with Levemir insulin for blood sugar control and a sliding scale coverage.
[2017-09-10] MEDS ORDERED: BISACODYL 10 MG SUPP RECTAL STA (14:58)
[2017-09-10 16:28] LABS: Glucose,Whole Blood 121 mg/dL (75-99)
[2017-09-10] MEDS: BUDESONIDE 1 MG/2 ML NEBU INHALATION SCH (19:06)
[2017-09-10] MEDS: FORMOTEROL FUMARATE 20 MCG/2 ML NEBU INHALATION SCH (19:22)
[2017-09-10 20:46] LABS: Glucose,Whole Blood 132 mg/dL (75-99)
[2017-09-10] MEDS: INSULIN NPH 300 UNIT/3 ML VIAL SQ SCH (21:08)
[2017-09-10] MEDS: OXYBUTYNIN XL 5 MG TAB.ER.24 PO SCH (21:09)
[2017-09-11] MEDS: ALPRAZolam 0.25 MG TAB PO PRN (02:23)
[2017-09-11 05:55] LABS: Glucose,Whole Blood 92 mg/dL (75-99)
[2017-09-11] MEDS: INSULIN ASPART 100 UNIT/ML 1 ML 10 ML VIAL SQ SCH ×5 (06:28→20:48)
[2017-09-11] MEDS: PANTOPRAZOLE 40 MG TABLET PO SCH (06:30)
[2017-09-11] MEDS: METOCLOPRAMIDE 5 MG/ML 2 ML VIAL IVP SCH ×4 (06:33→23:18)
[2017-09-11] MEDS: INSULN ASP PRT/INSULIN ASPART 100 UNIT/ML 10 ML VIAL SQ SCH (07:03)
--- NOTE | 2017-09-11 07:35 | P.PN ---
Subjective Progress Note Date: 09/11/17 Principal diagnosis: Left upper lobe mass. Medical history of coronary artery disease with recent stenting of the left anterior descending coronary artery in December 2016, perforated gastric ulcer with exploratory laparotomy, ITP, hypothyroid, diabetes mellitus type 2, previous tobacco dependence. POD #5 robotic assisted thoracoscopic left upper lobectomy with mediastinal lymph node dissection and fiberoptic bronchoscopy with clearance of mucous plug. Patient's currently sitting up in bed eating breakfast in no significant distress. States pain is somewhat controlled with ordered medications. Patient states she did have a bowel movement last night and again this morning. No other new complaints. Objective - Vital Signs Vital signs: Vital Signs Temp 97.6 F 09/11/17 03:49 Pulse 85 09/11/17 03:51 Resp 18 09/11/17 03:51 BP 106/51 09/11/17 03:49 Pulse Ox 96 09/11/17 03:49 Intake & Output 09/10/17 09/11/17 09/11/17 18:59 06:59 18:59 Intake Total 878 310 Output Total 400 125 Balance 478 185 Weight 60.6 kg Intake: IV 10 0.9 10 Oral 878 300 Output: Chest Tube Drainage 50 125 Chest Tube Left Lateral 50 125 Chest Drainage 150 Left Lateral Chest 150 Urine 200 Other: Voiding Method Toilet Toilet # Voids 1 - Constitutional General appearance: Present: cooperative, no acute distress - Respiratory Details: Lungs sounds diminished bilaterally. Respirations even, nonlabored. Currently on room air with oxygen saturation 96%. Able to achieve 750 mL on incentive spirometry. Left pleural chest tube to waterseal, 125 mL serosanguineous drainage overnight, 250 mL in the last 24 hours, no air leak present. - Cardiovascular Details: S1, S2 present. Regular rate and rhythm, sinus rhythm on telemetry. Palpable peripheral pulses bilaterally. No edema present. No calf pain or tenderness noted. SCDs present. - Gastrointestinal Gastrointestinal Comment(s): Abdomen soft, nontender, nondistended. Active bowel sounds 4 quadrants. Tolerating diet. Positive bowel movement 2. - Genitourinary Genitourinary Comment(s): Patient continues to void clear, yellow urine. - Integumentary Integumentary Comment(s): Skin is warm and dry with evidence of good perfusion. Left lateral wall incisions covered with dry intact Band-Aids. Left pleural chest tube site covered with dry intact dressing. - Neurologic Neurologic: Present: CNII-XII intact - Musculoskeletal Musculoskeletal: Present: gait normal, strength equal bilaterally - Psychiatric Psychiatric: Present: A&O x's 3, appropriate affect, intact judgment & insight - Allied health notes Allied health notes reviewed: nursing - Labs CBC & Chem 7: 09/09/17 05:35 09/09/17 05:35 Labs: Abnormal Lab Results - Last 24 Hours (Table) 09/10/17 09/10/17 09/10/17 Range/Units 11:28 16:16 20:44 POC Glucose (mg/dL) 107 H 121 H 132 H (75-99) mg/dL - Imaging and Cardiology Chest x-ray: image reviewed Assessment and Plan (1) Mass of upper lobe of left lung Current Visit: Yes Status: Acute Code(s): R91.8 - OTHER NONSPECIFIC ABNORMAL FINDING OF LUNG FIELD SNOMED Code(s): 665569610 (2) Coronary artery disease Current Visit: Yes Status: Chronic Code(s): I25.10 - ATHSCL HEART DISEASE OF [place] CORONARY ARTERY W/O ANG PCTRS SNOMED Code(s): 33020852 (3) History of heart artery stent Current Visit: Yes Status: Chronic Code(s): Z95.5 - PRESENCE OF CORONARY ANGIOPLASTY IMPLANT AND GRAFT SNOMED Code(s): 477054036 (4) Hypothyroid Current Visit: Yes Status: Chronic Code(s): E03.9 - HYPOTHYROIDISM, UNSPECIFIED SNOMED Code(s): 94901793 (5) Diabetes mellitus Current Visit: Yes Status: Chronic Code(s): E11.9 - TYPE 2 DIABETES MELLITUS WITHOUT COMPLICATIONS SNOMED Code(s): 25847508 (6) Tobacco dependence in remission Current Visit: Yes Status: Resolved Code(s): F17.201 - NICOTINE DEPENDENCE, UNSPECIFIED, IN REMISSION SNOMED Code(s): 534793892 (7) History of gastric ulcer Current Visit: Yes Status: Resolved Code(s): Z87.19 - PERSONAL HISTORY OF OTHER DISEASES OF THE DIGESTIVE SYSTEM SNOMED Code(s): 715332128 (8) History of ITP Current Visit: Yes Status: Resolved Priority: Medium Code(s): Z86.2 - PRSNL HISTORY OF DIS OF THE BLD/BLD-FORM ORG/IMMUN MECHNSM SNOMED Code(s): 180921512 Plan: 1. Chest tube clamped. No air leak when unclamped will discontinue chest tube. 2. Will check chest x-ray 2 hours after chest tube removal. 3. Encourage incentive spirometry use 10 times every hour. 4. Encourage continued smoking cessation. 5. Bronchodilators per pulmonology. 6. Pain control with ordered medication regimen. 7. GI/DVT prophylaxis. 8. Increase activity, ambulate in hallway. 9. Will obtain KUB to evaluate gastric bubble. Time with Patient: Greater than 30
[2017-09-11] MEDS: IPRATROPIUM-ALBUTEROL 3 ML NEB IH SCH ×4 (08:21→20:59)
[2017-09-11] MEDS: BUDESONIDE 1 MG/2 ML NEBU INHALATION SCH ×2 (08:21→20:59)
[2017-09-11] MEDS: FORMOTEROL FUMARATE 20 MCG/2 ML NEBU INHALATION SCH ×2 (08:22→20:59)
[2017-09-11] MEDS: traMADol 50 MG TAB PO SCH ×4 (09:01→20:49)
[2017-09-11] MEDS: LISINOPRIL 5 MG TAB PO SCH ×2 (09:02→20:48)
[2017-09-11] MEDS: METOPROLOL TARTRATE 25 MG TAB PO SCH ×2 (09:02→20:48)
[2017-09-11] MEDS: ATORVASTATIN 80 MG TAB PO SCH (09:02)
[2017-09-11] MEDS: DOCUSATE 100 MG CAP PO SCH (09:03)
[2017-09-11] MEDS: HEPARIN SODIUM,PORCINE 5,000 UNIT/ML 1 ML VIAL SQ SCH ×3 (09:03→23:18)
[2017-09-11] MEDS: ASPIRIN 81 MG PO SCH (09:03)
[2017-09-11] MEDS: CLOPIDOGREL 75 MG TAB PO SCH (09:03)
--- NOTE | 2017-09-11 09:12 | XR ---
EXAMINATION TYPE: XR chest 2V DATE OF EXAM: 09/11/2017 COMPARISON: 09/10/2017 TECHNIQUE: PA and lateral views submitted. HISTORY: Postop FINDINGS: Postsurgical changes are seen 5-10% left apical pneumothorax and chest tube noted. Subcutaneous emphy sema seen. Elevated left hemidiaphragm with basilar consolidation and massive distention of the stoma ch. Tiny right pleural effusion or pleural thickening noted. Underlying COPD noted. IMPRESSION: 1. Postoperative change with 5-10% left apical pneumothorax. 2. The left lower lobe consolidation and pleural effusion. 3. Marked distention of the stomach report called to the patient's nurse.
--- NOTE | 2017-09-11 09:54 | XR ---
EXAMINATION TYPE: XR KUB DATE OF EXAM: 09/11/2017 COMPARISON: NONE HISTORY: Pain TECHNIQUE: One view abdominal series FINDINGS: The osseous structures are intact. The bowel gas pattern is nonspecific. Left-sided chest tube with subcutaneous emphysema and basilar consolidation noted. The stomach is massively distended. Extensive retained fecal debris throughout the colon. Hypertrophi c and degenerative change of the spine. Surgical clips in the pelvis. There is the lucency extending along the left sidewall of the abdomen. Would recommend a CT scan for further evaluation to determine if this is extension of subcutaneous emphysema versus free air. IMPRESSION: 1. Massive distention of the gastric air bubble which may been the basis of a gastric outlet obstruct ion or gastroparesis. 2. Lucency along the left abdominal side wall could be related to subcutaneous emphysema with extensi on from the chest. Recommend CT scan to exclude free air. Port called to patient's nurse.
[2017-09-11] MEDS: INSULIN DETEMIR 100 UNIT/ML 10 ML VIAL SQ SCH (11:42)
[2017-09-11 11:47] LABS: Glucose,Whole Blood 62 mg/dL (75-99)
[2017-09-11 11:58] LABS: Glucose,Whole Blood 84 mg/dL (75-99)
--- NOTE | 2017-09-11 12:08 | XR ---
EXAMINATION TYPE: XR chest 2V DATE OF EXAM: 09/11/2017 COMPARISON: 09/11/2017 TECHNIQUE: PA and lateral views submitted. HISTORY: Chest tube removal FINDINGS: Postsurgical changes are seen and there is a stable 5-10% left apical pneumothorax with chest tube re moval. Subcutaneous emphysema seen. Elevated left hemidiaphragm with basilar consolidation and massiv e distention of the stomach. Tiny right pleural effusion or pleural thickening noted. Underlying COPD noted. IMPRESSION: 1. Stable left apical pneumothorax post chest tube removal measuring 5-10%. 2. Persistent marked distention of the gastric air bubble
--- NOTE | 2017-09-11 12:35 | P.PN ---
Subjective Progress Note Date: 09/11/17 Principal diagnosis: Robotic-assisted thoracoscopic left upper lobe lobectomy with mediastinal lymph node dissection for a left upper lobe mass 66-year-old female patient with known history of COPD and FEV1 of 70% of predicted, was found to have a left upper lobe mass that showed intense uptake in the PET scan. Based on that, the patient was taken to surgery and she underwent a robotic-assisted thoracoscopy and left upper lobe resection with mediastinal lymph node dissection. The patient is postop day #4. On today's evaluation, the patient is still has a left-sided chest tube. The patient has a small amount of air leak on today's evaluation. The patient has drained approximately 75 mL of serosanguineous drainage overnight and to 30 ML's over the past 24 hours. The patient is able to continue using incentive spirometer and she is pulling up to 1000. She is on oxygen at 2 L/m nasal cannula. Hemodynamically stable. Surgical wound is dry clean and intact. No altered mentation. No chest pain. Pain is under good control for now. The chest x- ray that was done today showed a tiny 5-10% left apical pneumothorax. There is also a left lower lobe consolidation pleural effusion. There is stomach distention and there is also some periods emphysema along the left chest wall. On 09/11/2017 patient seen in follow-up on selective care unit. Today's chest x -ray showed 5-10% stable pneumothorax on the right, persistent marked distention of the gastric air bubble. Chest tube has been discontinued, patient continues to use her incentive spirometry. KUB x-ray was obtained, and showed massive distention of the gastric air bubble, and fecal impaction. Patient had a bowel movement last night, and again this morning. Abdomen is soft, and nontender. Pulse ox on 2 L per nasal cannula was 100%, her pulse ox with ambulation in the room was 96%, patient is comfortable, denies any dyspnea. Lung sounds are positive for diminished on the left compared to the right, though no rhonchi, no wheezes noted. Objective - Vital Signs Vital signs: Vital Signs Temp 98.6 F 09/11/17 08:00 Pulse 98 09/11/17 08:45 Resp 16 09/11/17 08:45 BP 114/55 09/11/17 08:00 Pulse Ox 100 09/11/17 08:22 Intake & Output 09/10/17 09/11/17 09/11/17 18:59 06:59 18:59 Intake Total 878 310 Output Total 400 125 0 Balance 478 185 0 Weight 60.6 kg Intake: IV 10 0.9 10 Oral 878 300 Output: Chest Tube Drainage 50 125 0 Chest Tube Left Lateral 50 125 0 Chest Drainage 150 Left Lateral Chest 150 Urine 200 Other: Voiding Method Toilet Toilet Toilet # Voids 1 - Exam Gen. appearance the patient is calm comfortable likely distress Head exam was generally normal. There was no scleral icterus or corneal arcus. Mucous membranes were moist. Neck was supple and without jugular venous distension, thyromegaly, or carotid bruits. Carotids were easily palpable bilaterally. There was no adenopathy. Lungs sounds are diminished on the left compared to the right. The patient also has a saphenous emphysema along the left lateral chest for diarrhea. Chest tube has been discontinued Cardiac exam revealed the PMI to be normally situated and sized. The rhythm was regular and no extrasystoles were noted during several minutes of auscultation. The first and second heart sounds were normal and physiologic splitting of the second heart sound was noted. There were no murmurs, rubs, clicks, or gallops. Abdominal exam revealed normal bowel sounds. The abdomen was soft, non-tender, and without masses, organomegaly, or appreciable enlargement of the abdominal aorta. Examination of the extremities revealed easily palpable radial, femoral and pedal pulses. There was no cyanosis, clubbing or edema. Examination of the skin revealed no evidence of significant rashes, suspicious appearing nevi or other concerning lesions. Neurologically the patient is awake and alert and there is no focal neurological deficits. - Labs CBC & Chem 7: 09/09/17 05:35 09/09/17 05:35 Labs: Abnormal Lab Results - Last 24 Hours (Table) 09/10/17 09/10/17 09/11/17 Range/Units 16:16 20:44 11:37 POC Glucose (mg/dL) 121 H 132 H 62 L (75-99) mg/dL Assessment and Plan Plan: Assessment: 1 robotic-assisted thoracoscopic left upper lobe lobectomy with mediastinal lymph node dissection for a left upper lobe mass. The patient is postop day # 5. The patient has a tiny 5-10% residual pneumothorax on today's chest x-ray and there is evidence of mild intermittent air leak through the chest tube. 2 COPD at baseline with an FEV1 of 70% of predicted preoperatively 3 left hemidiaphragmatic elevation following a left upper lobe resection. This could be related to volume loss/lobectomy. At the same and the patient has some gastric distention, a symptomatically at this stage 4 coronary artery disease with previous history of coronary intervention and stenting 5 hypothyroidism 6 diabetes mellitus 7 history of ITP 8 history of smoking currently in remission Plan: Obtain room air pulse ox. Continue encouraging incentive spirometry, ambulation. Chest has been discontinued. Continue nebulized bronchodilators. Continue Pulmicort and Perforomist. I performed a history & physical examination of the patient and discussed their management with my nurse practitioner, Jewels Foster. I reviewed the nurse practitioner's note and agree with the documented findings and plan of care. Lung sounds are diminished on the left, clear on the right no rhonchi or wheezes noted.. The findings and the impression was discussed with the patient. I attest to the documentation by the nurse practitioner. Time with Patient: Less than 30
[2017-09-11] MEDS ORDERED: BISACODYL 10 MG SUPP RECTAL STA (16:28)
[2017-09-11 17:16] LABS: Glucose,Whole Blood 171 mg/dL (75-99)
[2017-09-11 18:55] LABS: Glucose,Whole Blood 289 mg/dL (75-99)
[2017-09-11 20:39] LABS: Glucose,Whole Blood 235 mg/dL (75-99)
[2017-09-11] MEDS: INSULIN NPH 300 UNIT/3 ML VIAL SQ SCH (20:48)
[2017-09-11] MEDS: OXYBUTYNIN XL 5 MG TAB.ER.24 PO SCH (21:21)
[2017-09-12 05:45] LABS: Basophils % (A) 0 %; Eosinophils # (A) 0.4 k/uL (0-0.7); Eosinophils % (A) 5 %; HCT 37.4 % (34.0-46.0); HGB 11.8 gm/dL (11.4-16.0); Lymphocytes # (A) 2.2 k/uL (1.0-4.8); Lymphocytes % (A) 27 %; MCH 27.5 pg (25.0-35.0); MCHC 31.4 g/dL (31.0-37.0); MCV 87.4 fL (80.0-100.0); Mean Platelet Volume 7.6; Monocytes # (A) 0.7 k/uL (0-1.0); Monocytes % (A) 9 %; Neutrophils # (A) 4.9 k/uL (1.3-7.7); Neutrophils % (A) 59 %; Platelet Count 299 k/uL (150-450); RBC 4.27 m/uL (3.80-5.40); RDW 14.1 % (11.5-15.5); WBC 8.3 k/uL (3.8-10.6)
[2017-09-12 05:55] LABS: ALT 55 U/L (9-52); AST 23 U/L (14-36); Albumin 2.7 g/dL (3.5-5.0); Alkaline Phosphatase 243 U/L (38-126); Anion Gap 7 mmol/L; Blood Urea Nitrogen 18 mg/dL (7-17); Calcium 9.1 mg/dL (8.4-10.2); Carbon Dioxide 27 mmol/L (22-30); Chloride 104 mmol/L (98-107); Glucose 171 mg/dL (74-99); Potassium 4.7 mmol/L (3.5-5.1); Sodium 138 mmol/L (137-145); Total Bilirubin 0.1 mg/dL (0.2-1.3); Total Protein 4.9 g/dL (6.3-8.2)
[2017-09-12 06:06] LABS: Glucose,Whole Blood 177 mg/dL (75-99)
[2017-09-12] MEDS: METOCLOPRAMIDE 5 MG/ML 2 ML VIAL IVP SCH ×4 (06:42→23:44)
[2017-09-12] MEDS: PANTOPRAZOLE 40 MG TABLET PO SCH (06:42)
[2017-09-12] MEDS: INSULIN ASPART 100 UNIT/ML 1 ML 10 ML VIAL SQ SCH ×5 (07:02→21:04)
[2017-09-12] MEDS: INSULN ASP PRT/INSULIN ASPART 100 UNIT/ML 10 ML VIAL SQ SCH (07:02)
[2017-09-12] MEDS: LISINOPRIL 5 MG TAB PO SCH ×2 (08:02→20:01)
[2017-09-12] MEDS: ASPIRIN 81 MG PO SCH (08:03)
[2017-09-12] MEDS: HEPARIN SODIUM,PORCINE 5,000 UNIT/ML 1 ML VIAL SQ SCH ×3 (08:03→23:44)
[2017-09-12] MEDS: ATORVASTATIN 80 MG TAB PO SCH (08:03)
[2017-09-12] MEDS: DOCUSATE 100 MG CAP PO SCH (08:04)
[2017-09-12] MEDS: METOPROLOL TARTRATE 25 MG TAB PO SCH ×2 (08:04→20:01)
[2017-09-12] MEDS: CLOPIDOGREL 75 MG TAB PO SCH (08:04)
[2017-09-12] MEDS: traMADol 50 MG TAB PO SCH ×4 (08:08→21:05)
[2017-09-12] MEDS: ALPRAZolam 0.25 MG TAB PO PRN (08:08)
[2017-09-12] MEDS: BUDESONIDE 1 MG/2 ML NEBU INHALATION SCH ×2 (08:18→18:59)
[2017-09-12] MEDS: FORMOTEROL FUMARATE 20 MCG/2 ML NEBU INHALATION SCH ×2 (08:18→19:10)
[2017-09-12] MEDS: IPRATROPIUM-ALBUTEROL 3 ML NEB IH SCH ×4 (08:18→18:59)
--- NOTE | 2017-09-12 09:40 | XR ---
EXAMINATION TYPE: XR chest 2V DATE OF EXAM: 09/12/2017 COMPARISON: 09/11/2017 TECHNIQUE: PA and lateral views submitted. HISTORY: Postsurgical FINDINGS: Postsurgical changes are seen and there is a stable 5-10% left apical pneumothorax with chest tube re moval. Subcutaneous emphysema seen. Elevated left hemidiaphragm with basilar consolidation and diste ntion of the stomach. Tiny right pleural effusion or pleural thickening noted. Underlying COPD noted. Left-sided consolidation and pleural effusion also noted. IMPRESSION: 1. Stable left apical pneumothorax post chest tube removal measuring 5-10%. 2. Persistent marked distention of the gastric air bubble
[2017-09-12] MEDS ORDERED: BISACODYL 10 MG SUPP RECTAL STA (09:46)
--- NOTE | 2017-09-12 10:33 | P.PN ---
Subjective Progress Note Date: 09/12/17 Principal diagnosis: Left upper lobe mass. Medical history of coronary artery disease with recent stenting of the left anterior descending coronary artery in December 2016, perforated gastric ulcer with exploratory laparotomy, ITP, hypothyroid, diabetes mellitus type 2, previous tobacco dependence. POD #6 robotic assisted thoracoscopic left upper lobectomy with mediastinal lymph node dissection and fiberoptic bronchoscopy with clearance of mucous plug. The patient is currently laying in bed in no acute distress. She reports that she just got back from a walk in the [facility] hallway. She denies any complaints of pain or shortness of breath this time. Current oxygen saturation is 93% on room air. The patient states she did have a bowel movement twice yesterday and once this morning. She did refuse a Dulcolax suppository yesterday. The patient is complaining of a scant amount of serous drainage from her previous left chest tube insertion site. Objective - Vital Signs Vital signs: Vital Signs Temp 98.1 F 09/12/17 08:00 Pulse 72 09/12/17 08:51 Resp 18 09/12/17 08:00 BP 105/54 09/12/17 08:00 Pulse Ox 96 09/12/17 08:00 Intake & Output 09/11/17 09/12/17 09/12/17 18:59 06:59 18:59 Intake Total 410 10 236 Output Total 600 Balance -190 10 236 Weight 60.1 kg Intake: IV 10 0.9 10 Oral 410 236 Output: Chest Tube Drainage 0 Chest Tube Left Lateral 0 Chest Urine 600 Other: Voiding Method Toilet Toilet Toilet # Voids 1 - Constitutional General appearance: Present: cooperative, no acute distress - Respiratory Details: Lung sounds with few scattered crackles to her bilateral bases. Respirations are symmetrical and nonlabored. Oxygen saturation are 93% on room air. She is achieving 1000 mL on her incentive spirometry. - Cardiovascular Details: Regular rhythm and rate. S1 and S2 present, negative for S3, gallop or murmur. Remote telemetry showing normal sinus rhythm heart rate 72. Knee-high VANDANA hose and sequential compression devices in place to bilateral lower extremities. No edema present. - Gastrointestinal Gastrointestinal Comment(s): Abdomen is soft, nontender nondistended. Active bowel sounds all 4 abdominal quadrants. Tolerating oral intake. Bowel movement this a.m. No guarding or rigidity. No organomegaly, no nausea. - Genitourinary Genitourinary Comment(s): Voiding clear yellow urine. - Integumentary Integumentary Comment(s): Skin is warm and dry. No clubbing or cyanosis present. Left lateral chest incisions clean dry and approximated. Previous left pleural chest tube site with scant serous drainage. - Neurologic Neurologic: Present: CNII-XII intact - Musculoskeletal Musculoskeletal: Present: gait normal, strength equal bilaterally - Psychiatric Psychiatric: Present: A&O x's 3, appropriate affect, intact judgment & insight - Allied health notes Allied health notes reviewed: nursing - Labs CBC & Chem 7: 09/12/17 05:28 09/12/17 05:28 Labs: Abnormal Lab Results - Last 24 Hours (Table) 09/11/17 09/11/17 09/11/17 Range/Units 11:37 17:02 18:54 BUN (7-17) mg/dL Glucose (74-99) mg/dL POC Glucose (mg/dL) 62 L 171 H 289 H (75-99) mg/dL Total Bilirubin (0.2-1.3) mg/dL ALT (9-52) U/L Alkaline Phosphatase (38-126) U/L Total Protein (6.3-8.2) g/dL Albumin (3.5-5.0) g/dL 09/11/17 09/12/17 09/12/17 Range/Units 20:37 05:28 06:05 BUN 18 H (7-17) mg/dL Glucose 171 H (74-99) mg/dL POC Glucose (mg/dL) 235 H 177 H (75-99) mg/dL Total Bilirubin 0.1 L (0.2-1.3) mg/dL ALT 55 H (9-52) U/L Alkaline Phosphatase 243 H (38-126) U/L Total Protein 4.9 L (6.3-8.2) g/dL Albumin 2.7 L (3.5-5.0) g/dL - Imaging and Cardiology Chest x-ray: report reviewed, image reviewed Assessment and Plan (1) History of ITP Current Visit: Yes Status: Acute Code(s): Z86.2 - PRSNL HISTORY OF DIS OF THE BLD/BLD-FORM ORG/IMMUN MECHN SNOMED Code(s): 365587329 (2) History of gastric ulcer Current Visit: Yes Status: Acute Code(s): Z87.19 - PERSONAL HISTORY OF OTHER DISEASES OF THE DIGESTIVE SYSTEM SNOMED Code(s): 535849004 (3) History of myocardial infarction Current Visit: Yes Status: Acute Code(s): I25.2 - OLD MYOCARDIAL INFARCTION SNOMED Code(s): 280664524 (4) Tobacco dependence in remission Current Visit: Yes Status: Acute Code(s): F17.201 - NICOTINE DEPENDENCE, UNSPECIFIED, IN REMISSION SNOMED Code(s): 831754288 (5) Mass of upper lobe of left lung Current Visit: Yes Status: Acute Code(s): R91.8 - OTHER NONSPECIFIC ABNORMAL FINDING OF LUNG FIELD SNOMED Code(s): 436172370 (6) Coronary artery disease Current Visit: Yes Status: Chronic Code(s): I25.10 - ATHSCL HEART DISEASE OF [place] CORONARY ARTERY W/O ANG PCTRS SNOMED Code(s): 26155210 (7) Diabetes mellitus Current Visit: Yes Status: Chronic Code(s): E11.9 - TYPE 2 DIABETES MELLITUS WITHOUT COMPLICATIONS SNOMED Code(s): 40201104 (8) History of heart artery stent Current Visit: Yes Status: Chronic Code(s): Z95.5 - PRESENCE OF CORONARY ANGIOPLASTY IMPLANT AND GRAFT SNOMED Code(s): 814370337 (9) Hypothyroid Current Visit: Yes Status: Chronic Code(s): E03.9 - HYPOTHYROIDISM, UNSPECIFIED SNOMED Code(s): 91012030 Plan: 1. Dulcolax suppository this a.m., continue stool softeners and Reglan. 2. Encourage incentive spirometry use 10 times every hour. 3. Reinforced the importance of continued smoking cessation 4. Increase activity, ambulate in hallway, PT/OT following. 5. Bronchodilators per pulmonology. 6. Continue pain control with ordered medication regimen. 7. GI/DVT prophylaxis. 8. More recommendations to follow based on the patient's clinical course. Anticipate discharge home within the next 24 hours. Time with Patient: Greater than 30
[2017-09-12 11:33] LABS: Glucose,Whole Blood 73 mg/dL (75-99)
[2017-09-12] MEDS: INSULIN DETEMIR 100 UNIT/ML 10 ML VIAL SQ SCH (12:27)
--- NOTE | 2017-09-12 15:42 | CT ---
EXAMINATION TYPE: CT abdomen pelvis w con DATE OF EXAM: 09/12/2017 COMPARISON: Chest radiograph same day, PET/CT 07/28/2017 HISTORY: 66-year-old female abdominal pain and distention TECHNIQUE: Contiguous axial scanning of the abdomen and pelvis following administration of 100 ml Iso minna 300 IV contrast. Delayed images through the kidneys and coronal/sagittal reconstructions perform ed. CT DLP: 511.4 mGycm Automated exposure control for dose reduction was used. FINDINGS: Heart normal size without pericardial effusion. Some post surgical changes and focal patchy left infr ahilar density is present along with some surgical material at the left hilum. Partially visualized l eft-sided pneumothorax. Subcutaneous emphysema along the left lateral hemithorax tracking down the le ft flank. Marked distention of the stomach. There is layering ingested debris within. Segmental dilatation and narrowing of the duodenum without obstructing lesion identified. No abnormal wall thickening. No free air or free fluid. Some prominent fluid-filled small bowel loops in the lower abdomen and pel vis could represent an ileus or enteritis. No abnormal dilatation or transition point. Fat stranding within the subcutaneous tissues of the anterior mid to lower abdomen. Moderate stool bu rden particularly in the right hemicolon. Stable line along the distal sigmoid from prior resection a nd re-anastomosis. There is some circumferential wall thickening of the rectum noted, axial image 83 through 85 just beyond the anastomosis. Moderate atherosclerotic calcifications within the abdominal aorta and iliac arteries. No focal liver lesion. Mild prominence to the bile duct likely secondary to postcholecystectomy statu s, portal venous system is patent. Stable 4 cm left renal cyst. Right adrenal gland, right kidney, sp [place], pancreas show no gross abnormality. Stable 2 nodules within the left adrenal gland measuring 2.0 and 1.8 cm likely adrenal adenomas given lack of metabolic activity on the patient's prior PET/CT. Prominent distention of the urinary bladder with some nondependent intraluminal bladder air probably related to recent instrumentation. No abnormal fluid collection the pelvis or pelvic lymphadenopathy seen. Uterus surgically absent. No adnexal mass. Bones: Degenerative changes lower lumbar spine. IMPRESSION: 1. MARKED GASTRIC DISTENTION. THERE IS ALSO SEGMENTAL DILATATION AND NARROWING OF THE DUODENUM. NO OB STRUCTING LESION SEEN. CONSIDER ILEUS AND NG TUBE PLACEMENT. FOLLOW-UP RECOMMENDED. 2. SOME PROMINENT FLUID-FILLED SMALL BOWEL LOOPS IN THE LOWER ABDOMEN AND PELVIS COULD REPRESENT ILEU S OR ENTERITIS. 3. PRIOR DISTAL SIGMOID RESECTION AND REANASTOMOSIS. THERE IS SOME RECTAL WALL THICKENING BEYOND THE ANASTOMOSIS THAT COULD REPRESENT COLITIS OR NEOPLASM. CORRELATE TO THE NEED FOR DIRECT VISUALIZATI ON. 4. LEFT-SIDED PNEUMOTHORAX WITH POSTSURGICAL CHANGES AT THE LEFT HILUM INCOMPLETELY VISUALIZED. SUBCU TANEOUS EMPHYSEMA TRACKS DOWN THE LEFT FLANK. 5. FAT STRANDING IN THE ANTERIOR SUBCUTANEOUS FAT OF THE MID TO LOWER ABDOMEN. THIS COULD REPRESENT N ONSPECIFIC EDEMA, SUBCUTANEOUS INJECTIONS, OR CELLULITIS. 6. SOME INTRALUMINAL BLADDER AIR COULD REFLECT INFECTION OR RECENT INSTRUMENTATION. CLINICALLY CORREL ATE.
--- NOTE | 2017-09-12 16:45 | P.PN ---
Subjective Progress Note Date: 09/12/17 66-year-old female patient with known history of COPD and FEV1 of 70% of predicted, was found to have a left upper lobe mass that showed intense uptake in the PET scan. Based on that, the patient was taken to surgery and she underwent a robotic-assisted thoracoscopy and left upper lobe resection with mediastinal lymph node dissection. The patient is postop day #4. On today's evaluation, the patient is still has a left-sided chest tube. The patient has a small amount of air leak on today's evaluation. The patient has drained approximately 75 mL of serosanguineous drainage overnight and to 30 ML's over the past 24 hours. The patient is able to continue using incentive spirometer and she is pulling up to 1000. She is on oxygen at 2 L/m nasal cannula. Hemodynamically stable. Surgical wound is dry clean and intact. No altered mentation. No chest pain. Pain is under good control for now. The chest x- ray that was done today showed a tiny 5-10% left apical pneumothorax. There is also a left lower lobe consolidation pleural effusion. There is stomach distention and there is also some periods emphysema along the left chest wall. On 09/11/2017 patient seen in follow-up on selective care unit. Today's chest x -ray showed 5-10% stable pneumothorax on the right, persistent marked distention of the gastric air bubble. Chest tube has been discontinued, patient continues to use her incentive spirometry. KUB x-ray was obtained, and showed massive distention of the gastric air bubble, and fecal impaction. Patient had a bowel movement last night, and again this morning. Abdomen is soft, and nontender. Pulse ox on 2 L per nasal cannula was 100%, her pulse ox with ambulation in the room was 96%, patient is comfortable, denies any dyspnea. Lung sounds are positive for diminished on the left compared to the right, though no rhonchi, no wheezes noted. On 09/12/2017 I'm seeing this patient for a follow-up. 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 Currently the patient is postop day #5. The left-sided chest tube has been removed. One concern was a significant gastric distention that was seen on the chest x-ray and abdominal films. The patient had some increased stool a combination within the large bowel for which the patient was given laxative with good results and the patient has been able to pass bowel movements. However, there was still concern of the large gastric distention that was seen and based on that a CAT scan of the abdomen and pelvis was done this afternoon that obviously showed postsurgical changes within the left lung. Specifically her was a tiny left- sided pneumothorax anteriorly and evidence of subcutaneous emphysema tracking down to the left flank area. The residual left lower lobe was well expanded. There was marked gastric distention and there was also segmental limitation and narrowing of the duodenum without any obstructions seen. No NG tube was inserted and the patient was still asymptomatic and she was able to pass bowel movements and she does not have any nausea or emesis. There was some prominent fluid-filled small bowel loops in the lower abdomen and pelvis that could also potentially present some ileus. The patient had rectal wall thickening beyond an area of anastomosis and sigmoid resection and there was some fecal material within the large bowel. Based on the radiologist's recommendations, there was a need for a EGD and colonoscopy to assess these abnormalities and investigate this findings further. Nevertheless, despite his ongoing changes, the patient is not acting any septic no she is behaving as having a bowel obstruction. No abdominal distention. No nausea or emesis. She is ambulating. She is currently on room air oxygen. Objective - Vital Signs Vital signs: Vital Signs Temp 97.4 F L 09/12/17 15:22 Pulse 94 09/12/17 15:26 Resp 18 09/12/17 15:26 BP 133/75 09/12/17 15:22 Pulse Ox 93 L 09/12/17 15:22 Intake & Output 09/11/17 09/12/17 09/12/17 18:59 06:59 18:59 Intake Total 410 10 416 Output Total 600 Balance -190 10 416 Weight 60.1 kg Intake: IV 10 0.9 10 Oral 410 416 Output: Chest Tube Drainage 0 Chest Tube Left Lateral 0 Chest Urine 600 Other: Voiding Method Toilet Toilet Toilet # Voids 1 1 - Exam Gen. appearance the patient is calm comfortable likely distress Head exam was generally normal. There was no scleral icterus or corneal arcus. Mucous membranes were moist. Neck was supple and without jugular venous distension, thyromegaly, or carotid bruits. Carotids were easily palpable bilaterally. There was no adenopathy. Lungs sounds are diminished on the left compared to the right. The patient also has a subcutaneous emphysema on the left chest extending to the flank area. Breath sounds are diminished in the left compared to the right. Cardiac exam revealed the PMI to be normally situated and sized. The rhythm was regular and no extrasystoles were noted during several minutes of auscultation. The first and second heart sounds were normal and physiologic splitting of the second heart sound was noted. There were no murmurs, rubs, clicks, or gallops. Abdominal exam revealed normal bowel sounds. The abdomen was soft, non-tender, and without masses, organomegaly, or appreciable enlargement of the abdominal aorta. Examination of the extremities revealed easily palpable radial, femoral and pedal pulses. There was no cyanosis, clubbing or edema. Examination of the skin revealed no evidence of significant rashes, suspicious appearing nevi or other concerning lesions. Neurologically the patient is awake and alert and there is no focal neurological deficits. - Labs CBC & Chem 7: 09/12/17 05:28 09/12/17 05:28 Labs: Abnormal Lab Results - Last 24 Hours (Table) 09/11/17 09/11/17 09/11/17 Range/Units 17:02 18:54 20:37 BUN (7-17) mg/dL Glucose (74-99) mg/dL POC Glucose (mg/dL) 171 H 289 H 235 H (75-99) mg/dL Total Bilirubin (0.2-1.3) mg/dL ALT (9-52) U/L Alkaline Phosphatase (38-126) U/L Total Protein (6.3-8.2) g/dL Albumin (3.5-5.0) g/dL 09/12/17 09/12/17 09/12/17 Range/Units 05:28 06:05 11:32 BUN 18 H (7-17) mg/dL Glucose 171 H (74-99) mg/dL POC Glucose (mg/dL) 177 H 73 L (75-99) mg/dL Total Bilirubin 0.1 L (0.2-1.3) mg/dL ALT 55 H (9-52) U/L Alkaline Phosphatase 243 H (38-126) U/L Total Protein 4.9 L (6.3-8.2) g/dL Albumin 2.7 L (3.5-5.0) g/dL Assessment and Plan Plan: Assessment 1 robotic-assisted thoracoscopic left upper lobe lobectomy with mediastinal lymph node dissection for a left upper lobe mass. The patient is postop day # 5. The chest tube was removed yesterday and based on today's CAT scan there is a tiny anterior pneumothorax on the left. The patient also has significant amount of subcu emphysema as evident on the CAT scan of the abdomen and pelvis done today. Pneumothorax itself is very tiny. No significant respiratory distress. Surgical wound sites are clean and intact for now. 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 2 COPD at baseline with an FEV1 of 70% of predicted preoperatively 3 left hemidiaphragmatic elevation following a left upper lobe resection. This could be related to volume loss/lobectomy. 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 No obstruction is seen. There is also prominent small bowel loops in the lower abdomen and this raises the concern tolerance an underlying ileus. Plan Suggest continuing to use the incentive spirometer. Recommended GI evaluation for possible EGD and colonoscopy to investigate the gastric distention and rule out any obstruction at the level of the duodenum and or any obstruction at the level of the anastomosis at the site of sigmoid resection. We are going to continue to follow up this patient. Monitor subsidence emphysema. Continues incentive spirometer. Pulse oxing above 90% on room air. Pathologic findings were noted. The patient has stage I squamous cell carcinoma of the lung which is very limited and early stage.
[2017-09-12 16:47] LABS: Glucose,Whole Blood 228 mg/dL (75-99)
[2017-09-12] MEDS: OXYBUTYNIN XL 5 MG TAB.ER.24 PO SCH (20:01)
[2017-09-12 20:56] LABS: Glucose,Whole Blood 162 mg/dL (75-99)
[2017-09-12] MEDS ORDERED: SODIUM CHLORIDE 0.9% 500 ML IV ONE (21:58)
[2017-09-12] MEDS: INSULIN NPH 300 UNIT/3 ML VIAL SQ SCH (22:33)
[2017-09-12] MEDS: ACETAMINOPHEN TAB 325 MG TAB PO PRN (22:38)
[2017-09-12 22:44] LABS: Appearance,Urine Clear (Clear); Bilirubin,Urine Negative (Negative); Blood,Urine Negative (Negative); Budding Yeast,Urine Many /hpf; Color,Urine Yellow; Glucose,Urine (UA) 1+ (Negative); Ketones,Urine Negative (Negative); Leukocyte Esterase,Urine Large (Negative); Mucus,Urine Rare /hpf; Nitrite,Urine Negative (Negative); Protein,Urine Negative (Negative); RBC,Urine 4 /hpf (0-5); Specific Gravity,Urine 1.022 (1.001-1.035); Squamous Epithelial Cell,Urine <1 /hpf (0-4); Urobilinogen,Urine <2.0 mg/dL (<2.0); WBC,Urine 62 /hpf (0-5)
[2017-09-13] MEDS: METOCLOPRAMIDE 5 MG/ML 2 ML VIAL IVP SCH ×4 (06:22→23:54)
[2017-09-13] MEDS: PANTOPRAZOLE 40 MG TABLET PO SCH (06:22)
[2017-09-13 06:23] LABS: Basophils % (A) 0 %; Eosinophils # (A) 0.1 k/uL (0-0.7); Eosinophils % (A) 1 %; HCT 38.1 % (34.0-46.0); HGB 12.2 gm/dL (11.4-16.0); Lymphocytes # (A) 1.7 k/uL (1.0-4.8); Lymphocytes % (A) 15 %; MCH 27.9 pg (25.0-35.0); MCHC 32.1 g/dL (31.0-37.0); MCV 86.9 fL (80.0-100.0); Mean Platelet Volume 7.6; Monocytes # (A) 0.7 k/uL (0-1.0); Monocytes % (A) 6 %; Neutrophils # (A) 8.6 k/uL (1.3-7.7); Neutrophils % (A) 76 %; Platelet Count 317 k/uL (150-450); RBC 4.38 m/uL (3.80-5.40); RDW 14.2 % (11.5-15.5); WBC 11.3 k/uL (3.8-10.6)
[2017-09-13 06:28] LABS: Glucose,Whole Blood 158 mg/dL (75-99)
[2017-09-13 06:35] LABS: ALT 47 U/L (9-52); AST 26 U/L (14-36); Albumin 2.8 g/dL (3.5-5.0); Alkaline Phosphatase 250 U/L (38-126); Anion Gap 10 mmol/L; Blood Urea Nitrogen 18 mg/dL (7-17); Carbon Dioxide 26 mmol/L (22-30); Chloride 101 mmol/L (98-107); Glucose 154 mg/dL (74-99); Potassium 4.5 mmol/L (3.5-5.1); Sodium 137 mmol/L (137-145); Total Bilirubin 0.4 mg/dL (0.2-1.3)
[2017-09-13] MEDS: BUDESONIDE 1 MG/2 ML NEBU INHALATION SCH ×2 (08:26→19:44)
[2017-09-13] MEDS: IPRATROPIUM-ALBUTEROL 3 ML NEB IH SCH ×4 (08:26→19:45)
[2017-09-13] MEDS: FORMOTEROL FUMARATE 20 MCG/2 ML NEBU INHALATION SCH ×2 (08:26→19:44)
[2017-09-13] MEDS: INSULIN ASPART 100 UNIT/ML 1 ML 10 ML VIAL SQ SCH ×5 (08:40→21:18)
[2017-09-13] MEDS: INSULN ASP PRT/INSULIN ASPART 100 UNIT/ML 10 ML VIAL SQ SCH (08:40)
[2017-09-13] MEDS: ATORVASTATIN 80 MG TAB PO SCH (08:42)
[2017-09-13] MEDS: LISINOPRIL 5 MG TAB PO SCH ×2 (08:43→21:00)
[2017-09-13] MEDS: ASPIRIN 81 MG PO SCH (08:43)
[2017-09-13] MEDS: METOPROLOL TARTRATE 25 MG TAB PO SCH ×2 (08:43→21:00)
[2017-09-13] MEDS: CLOPIDOGREL 75 MG TAB PO SCH ×2 (08:43→08:58)
[2017-09-13] MEDS: DOCUSATE 100 MG CAP PO SCH (08:43)
[2017-09-13] MEDS: HEPARIN SODIUM,PORCINE 5,000 UNIT/ML 1 ML VIAL SQ SCH ×3 (08:43→23:54)
[2017-09-13] MEDS: traMADol 50 MG TAB PO SCH ×4 (08:47→20:59)
--- NOTE | 2017-09-13 09:44 | XR ---
EXAMINATION TYPE: XR chest 2V DATE OF EXAM: 09/13/2017 COMPARISON: 09/12/2017 TECHNIQUE: PA and lateral views submitted. HISTORY: Postsurgical FINDINGS: Postsurgical changes are seen and there is a stable 5-10% left apical pneumothorax with chest tube re moval. Subcutaneous emphysema seen. Elevated left hemidiaphragm with basilar consolidation and disten tion of the stomach. Tiny right pleural effusion or pleural thickening noted. Underlying COPD noted. Left-sided consolidation and pleural effusion also noted. IMPRESSION: 1. Stable left apical pneumothorax post chest tube removal measuring 5-10%. 2. Persistent distention of the gastric air bubble
--- NOTE | 2017-09-13 10:33 | P.CONS ---
History of Present Illness - Reason for Consult Consult date: 09/13/17 Gastric distention Requesting physician: Mauri Jules - History of Present Illness 66-year-old female recent abnormal PET scan postoperative day #7 robotic assisted thoracoscopic left upper lobectomy mediastinal lymph node dissection pathology small cell carcinoma lymph nodes negative for metastasis. Consult requested for gastric distention per CT. Past medical history CAD [place] PCI stent GERD IBS COPD diabetes mellitus anxiety hyperlipidemia restless leg syndrome chronic nicotine cigarette dependency. Past medical history of perforated bowel with resection. No history of peptic ulcer disease. No recent EGD or colonoscopy. Denies nausea vomiting or abdominal distention. CT abdomen and pelvis yesterday reported marked distention of the stomach with layering ingested debris with segmental dilatation and narrowing of the duodenum without obstructing lesion. No abnormal wall thickening. Additionally she has a stable line along the distal sigmoid from previous resection and reanastomosis moderate stool burden in the right hemicolon. Some rectal wall thickening B on the anastomosis that could represent colitis or neoplasm however patient is denying lower abdominal pain diarrhea hematemesis hematochezia or melena. Chest x-ray this morning stable left apical pneumothorax post chest tube removal measuring 5-10% with persistent distention of gastric air bubble. White count 11.3. Hemoglobin 12.2. BUN 18. Creatinine 0.6. Review of Systems Constitutional: Denies fever, chills, sweats, weight gain, or loss. HEENT: Negative for migraines, blurred vision or loss, earaches, drainage, tinnitus, oral mucosal lesions, dysphagia, or odynophagia. CARDIAC: History of CAD previous stenting. Negative for chest pain, arrhythmias , or palpitation. RESPIRATORY: History of COPD. Negative for shortness of breath, hemoptysis, cough, or sputum production. GI: See HPI for pertinent findings. : Negative for hematuria, urgency, frequency, polyuria, or dysuria. GYNc: Denies possibility of . Negative vaginal discharge. MUSCULOSKELETAL: Negative for muscle aches, swelling, arthritis, and arthralgias. NEUROLOGIC: Negative for stroke or TIA. ENDOCRINE: Negative for thyroid problems. SKIN: Negative for rash or itching. PSYCHIATRIC: Negative history for depression and anxiety Past Medical History Past Medical History: Diabetes Mellitus, Fibromyalgia, GERD/Reflux, Myocardial Infarction ([place]) Additional Past Medical History / Comment(s): Idiopathic thrombocytopenia purpura, IBS, diverticulitis, hiatal hernia, 2 herniated discs-L3/L4, Restless Leg Syndrome, gastritis, superficial gastric ulcers. nodule on lt lung-Cancer Stg 1 Last Myocardial Infarction Date:: 01/2017 History of Any Multi-Drug Resistant Organisms: None Reported Past Surgical History: Adenoidectomy, Bladder Surgery, Bowel Resection, Cholecystectomy, Heart Catheterization With Stent, Hernia Repair, Hysterectomy, Tonsillectomy Additional Past Surgical History / Comment(s): BLADDER SUSPENSION x 2, breast biopsy x3, bowel resection due to rupture. Past Anesthesia/Blood Transfusion Reactions: No Reported Reaction Additional Past Anesthesia/Blood Transfusion Reaction / Comm: Pt received blood in 2005 due to ITP without reaction. Date of Last Stent Placement:: 01/2017 Past Psychological History: Anxiety Additional Psychological History / Comment(s): . Smoking Status: Former smoker Past Alcohol Use History: None Reported Additional Past Alcohol Use History / Comment(s): STARTED SMOKING AT AGE 18- SMOKES 1PPD Past Drug Use History: None Reported - Past Family History Mother Family Medical History: Cancer, Diabetes Mellitus Additional Family Medical History / Comment(s): Father had a defibrillator. He of heart dx in his 80's Father Family Medical History: Diabetes Mellitus Additional Family Medical History / Comment(s): HEART DISEASE Medications and Allergies Home Medications Medication Instructions Recorded Confirmed Type Loperamide [Imodium] 2 mg PO Q8HR PRN 04/04/14 09/06/17 History Insulin Aspart [NovoLOG Flexpen] See Protocol SQ PC-TID PRN 08/02/15 09/06/17 History ALPRAZolam 0.25 mg PO BID PRN 11/03/15 09/06/17 History Insulin Detemir [Levemir] 30 unit SQ DAILY@1200 11/09/15 09/06/17 History Solifenacin Succinate [Vesicare] 10 mg PO HS 04/12/16 09/06/17 History rOPINIRole HCL [Requip] 0.25 mg PO HS 04/12/16 09/06/17 History HYDROcodone/APAP 7.5-325MG [[place] 1 tab PO Q4H PRN 01/14/17 09/06/17 History 7.5-325] Pantoprazole [Protonix] 40 mg PO QAM PRN 01/14/17 09/06/17 History Aspirin 81 mg PO DAILY chew 01/17/17 09/06/17 Rx Metoprolol Tartrate [Lopressor] 25 mg PO BID #60 tab 01/17/17 09/06/17 Rx Nitroglycerin Sl Tabs [Nitrostat] 0.4 mg SUBLINGUAL Q5M PRN #21 tab 01/17/17 Rx Clopidogrel Bisulfate [Plavix] 75 mg PO DAILY 06/26/17 09/06/17 History Atorvastatin [Lipitor] 80 mg PO DAILY 08/31/17 09/06/17 History Budesonide-Formot 160-4.5 Mcg 2 puff INHALATION RT-BID 08/31/17 09/06/17 History [Symbicort 160-4.5 Mcg Inhaler] Ipratropium/Albuterol Sulfate 1 puff INHALATION RT-QID 08/31/17 09/06/17 History [Combivent Respimat Inhaler] Lisinopril [Prinivil] 5 mg PO BID 08/31/17 09/06/17 History Naproxen [Naprosyn] 500 mg PO BID PRN 08/31/17 09/06/17 History Allergies Allergy/AdvReac Type Severity Reaction Status Date / Time No Known Allergies Allergy Verified 09/06/17 16:27 Physical Exam Vitals: Vital Signs Temp Pulse Pulse Resp BP BP Pulse Ox 09/13/17 08:49 98 09/13/17 08:45 92 09/13/17 08:27 88 16 09/13/17 08:00 98.9 F 98 16 105/48 99 09/13/17 04:00 99.0 F 95 16 102/50 96 09/13/17 00:25 101 H 09/12/17 23:46 99.8 F H 109 H 16 116/68 95 09/12/17 22:40 99.3 F 121 H 18 120/67 95 09/12/17 22:18 99.3 F 09/12/17 21:52 100.0 F H 128 H 149/74 98 09/12/17 21:32 130 H 09/12/17 21:31 101.6 F H 09/12/17 20:00 99.0 F 103 H 20 160/74 100 09/12/17 19:15 76 09/12/17 19:09 76 09/12/17 19:01 75 09/12/17 15:26 94 18 09/12/17 15:22 97.4 F L 94 18 133/75 93 L 09/12/17 12:19 76 09/12/17 12:05 76 09/12/17 12:00 97.9 F 87 18 113/67 96 Intake and Output 09/12/17 09/13/17 09/13/17 22:59 06:59 14:59 Output Total 650 Balance -650 Output: Urine 650 Other: Voiding Method Toilet Indwelling Catheter Indwelling Catheter # Voids 1 4 Weight 62 kg General appearance: The patient is alert, oriented, in no acute distress. HET: Head is normocephalic and atraumatic. Pupils are equal and reactive. Oropharynx is clear without lesions. Neck: Supple without lymphadenopathy. Trachea midline. Heart: S1 S2. Regular rate and rhythm. Lungs: No crackles or wheezes are heard. Slight diminishment in the left chest dressings intact. Abdomen: Soft, nontender, nondistended with bowel sounds. No peritoneal signs. No palpable organomegaly or masses. Extremities: Normal skin color and turgor. No cyanosis, rash, ulceration, clubbing, or edema. Radial and pedal pulses are 2/4 bilaterally. Neurological: No focal deficits. Strength and sensation are grossly intact. Results CBC & Chem 7: 09/13/17 05:56 09/13/17 05:56 Labs: Abnormal Lab Results - Last 24 Hours (Table) 09/12/17 09/12/17 09/12/17 Range/Units 11:32 16:43 20:55 WBC (3.8-10.6) k/uL Neutrophils # (1.3-7.7) k/uL BUN (7-17) mg/dL Glucose (74-99) mg/dL POC Glucose (mg/dL) 73 L 228 H 162 H (75-99) mg/dL Alkaline Phosphatase (38-126) U/L Total Protein (6.3-8.2) g/dL Albumin (3.5-5.0) g/dL Urine Glucose (UA) (Negative) Ur Leukocyte Esterase (Negative) Urine WBC (0-5) /hpf Urine Mucus (None) /hpf Urine Yeast (Budding) (None) /hpf 09/12/17 09/13/17 09/13/17 Range/Units 22:08 05:56 05:56 WBC 11.3 H (3.8-10.6) k/uL Neutrophils # 8.6 H (1.3-7.7) k/uL BUN 18 H (7-17) mg/dL Glucose 154 H (74-99) mg/dL POC Glucose (mg/dL) (75-99) mg/dL Alkaline Phosphatase 250 H (38-126) U/L Total Protein 5.0 L (6.3-8.2) g/dL Albumin 2.8 L (3.5-5.0) g/dL Urine Glucose (UA) 1+ H (Negative) Ur Leukocyte Esterase Large H (Negative) Urine WBC 62 H (0-5) /hpf Urine Mucus Rare H (None) /hpf Urine Yeast (Budding) Many H (None) /hpf 09/13/17 Range/Units 06:19 WBC (3.8-10.6) k/uL Neutrophils # (1.3-7.7) k/uL BUN (7-17) mg/dL Glucose (74-99) mg/dL POC Glucose (mg/dL) 158 H (75-99) mg/dL Alkaline Phosphatase (38-126) U/L Total Protein (6.3-8.2) g/dL Albumin (3.5-5.0) g/dL Urine Glucose (UA) (Negative) Ur Leukocyte Esterase (Negative) Urine WBC (0-5) /hpf Urine Mucus (None) /hpf Urine Yeast (Budding) (None) /hpf CT scan - abdomen: report reviewed (Reviewed by Dr. Kemp) Assessment and Plan (1) Gastric distention Narrative/Plan: Possible gastric outlet obstruction Current Visit: Yes Status: Acute Code(s): K31.89 - OTHER DISEASES OF STOMACH AND DUODENUM SNOMED Code(s): 777812937 (2) Small cell lung carcinoma Current Visit: Yes Status: Acute Code(s): C34.90 - MALIGNANT NEOPLASM OF UNSP PART OF UNSP BRONCHUS OR LUNG SNOMED Code(s): 181208652 (3) History of resection of large bowel Current Visit: Yes Status: Resolved Code(s): Z90.49 - ACQUIRED ABSENCE OF OTHER SPECIFIED PARTS OF DIGESTIVE TRACT SNOMED Code(s): 947011999 (4) Mass of upper lobe of left lung Current Visit: Yes Status: Acute Code(s): R91.8 - OTHER NONSPECIFIC ABNORMAL FINDING OF LUNG FIELD SNOMED Code(s): 364438288 Plan: 1. Dr. Kemp recommends NG tube decompression followed by EGD evaluation later today. Inpatient colonoscopy contingent on clinical course but is not planned at this time secondary to marked gastric distention most likely will not be able to tolerate prep; outpatient colonoscopy was discussed patient is passing bowel movements no evidence of obstruction per CT. Continue Protonix 40 mg daily. Nothing by mouth. The instrument and control service person has discussed the risks, benefits and alternative therapies for the above-mentioned procedure and for both sedation/analgesia as well as necessary blood product administration, if indicated, as they pertain to this patient. The patient has indicated understanding and acceptance of the risks and procedures discussed. Thank you for this kind referral and the opportunity to participate in the care of your patient. This consultation was discussed with Dr. Kemp. The impression and plan of care have been directed as dictated.
--- NOTE | 2017-09-13 11:18 | P.PN ---
Subjective Progress Note Date: 09/13/17 Principal diagnosis: Robotic-assisted thoracoscopic left upper lobe lobectomy with mediastinal lymph node dissection for a left upper lobe mass 66-year-old female patient with known history of COPD and FEV1 of 70% of predicted, was found to have a left upper lobe mass that showed intense uptake in the PET scan. Based on that, the patient was taken to surgery and she underwent a robotic-assisted thoracoscopy and left upper lobe resection with mediastinal lymph node dissection. The patient is postop day #4. On today's evaluation, the patient is still has a left-sided chest tube. The patient has a small amount of air leak on today's evaluation. The patient has drained approximately 75 mL of serosanguineous drainage overnight and to 30 ML's over the past 24 hours. The patient is able to continue using incentive spirometer and she is pulling up to 1000. She is on oxygen at 2 L/m nasal cannula. Hemodynamically stable. Surgical wound is dry clean and intact. No altered mentation. No chest pain. Pain is under good control for now. The chest x- ray that was done today showed a tiny 5-10% left apical pneumothorax. There is also a left lower lobe consolidation pleural effusion. There is stomach distention and there is also some periods emphysema along the left chest wall. On 09/11/2017 patient seen in follow-up on selective care unit. Today's chest x -ray showed 5-10% stable pneumothorax on the right, persistent marked distention of the gastric air bubble. Chest tube has been discontinued, patient continues to use her incentive spirometry. KUB x-ray was obtained, and showed massive distention of the gastric air bubble, and fecal impaction. Patient had a bowel movement last night, and again this morning. Abdomen is soft, and nontender. Pulse ox on 2 L per nasal cannula was 100%, her pulse ox with ambulation in the room was 96%, patient is comfortable, denies any dyspnea. Lung sounds are positive for diminished on the left compared to the right, though no rhonchi, no wheezes noted. On 09/12/2017 I'm seeing this patient for a follow-up. 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 Currently the patient is postop day #5. The left-sided chest tube has been removed. One concern was a significant gastric distention that was seen on the chest x-ray and abdominal films. The patient had some increased stool a combination within the large bowel for which the patient was given laxative with good results and the patient has been able to pass bowel movements. However, there was still concern of the large gastric distention that was seen and based on that a CAT scan of the abdomen and pelvis was done this afternoon that obviously showed postsurgical changes within the left lung. Specifically her was a tiny left- sided pneumothorax anteriorly and evidence of subcutaneous emphysema tracking down to the left flank area. The residual left lower lobe was well expanded. There was marked gastric distention and there was also segmental limitation and narrowing of the duodenum without any obstructions seen. No NG tube was inserted and the patient was still asymptomatic and she was able to pass bowel movements and she does not have any nausea or emesis. There was some prominent fluid-filled small bowel loops in the lower abdomen and pelvis that could also potentially present some ileus. The patient had rectal wall thickening beyond an area of anastomosis and sigmoid resection and there was some fecal material within the large bowel. Based on the radiologist's recommendations, there was a need for a EGD and colonoscopy to assess these abnormalities and investigate this findings further. Nevertheless, despite his ongoing changes, the patient is not acting any septic no she is behaving as having a bowel obstruction. No abdominal distention. No nausea or emesis. She is ambulating. She is currently on room air oxygen. On 09/13/2017 patient seen in follow-up on selective care unit. Abdomen/pelvis CT was obtained yesterday, showed marked gastric distention with segmental dilatation and narrowing of the duodenum. There was some prominent fluid- filled small bowel loops in the lower abdomen and possible ileus or enteritis. There was some rectal wall thickening And evidence of prior distal sigmoid resection and reanastomosis. Patient denies any nausea, or vomiting. She has been receiving Colace, Reglan, yesterday she received Dulcolax suppository, small results. There is still evidence of a large amount of stool in the large colon. GI service has been consulted, and is considering the patient for upper endoscopy today. Patient is currently nothing by mouth. She she has mild diffuse tenderness in the left upper quadrant To palpation. Today's labs were reviewed, and essentially unremarkable. Chest x-ray results from today was reviewed by Dr. Milan, and shows stable left apical pneumothorax post chest tube removal measuring 5-10%. Persistent distention of the gastric air bubble. From pulmonary standpoint patient denies any acute complaints, no dyspnea, she is compliant with her incentive spirometry, she has been ambulating. Pulse ox on 2 L per nasal cannula is 99%. Sounds are clear on the right, diminished over left lower lobe, wheezes, no rhonchi, no rales noted. Objective - Vital Signs Vital signs: Vital Signs Temp 98.9 F 09/13/17 08:00 Pulse 98 09/13/17 08:49 Resp 16 09/13/17 08:27 BP 105/48 09/13/17 08:00 Pulse Ox 99 09/13/17 08:00 Intake & Output 09/12/17 09/13/17 09/13/17 18:59 06:59 18:59 Intake Total 416 Output Total 650 Balance 416 -650 Weight 62 kg Intake: Oral 416 Output: Urine 650 Other: Voiding Method Toilet Indwelling Catheter Indwelling Catheter # Voids 1 4 - Exam Gen. appearance the patient is calm comfortable likely distress Head exam was generally normal. There was no scleral icterus or corneal arcus. Mucous membranes were moist. Neck was supple and without jugular venous distension, thyromegaly, or carotid bruits. Carotids were easily palpable bilaterally. There was no adenopathy. Lungs sounds are diminished on the left compared to the right. The patient also has a subcutaneous emphysema along the left lateral chest. Chest tube has been discontinued Cardiac exam revealed the PMI to be normally situated and sized. The rhythm was regular and no extrasystoles were noted during several minutes of auscultation. The first and second heart sounds were normal and physiologic splitting of the second heart sound was noted. There were no murmurs, rubs, clicks, or gallops. Abdominal exam revealed normal bowel sounds. The abdomen was soft, non-tender, and without masses, organomegaly, or appreciable enlargement of the abdominal aorta. Examination of the extremities revealed easily palpable radial, femoral and pedal pulses. There was no cyanosis, clubbing or edema. Examination of the skin revealed no evidence of significant rashes, suspicious appearing nevi or other concerning lesions. Neurologically the patient is awake and alert and there is no focal neurological deficits. - Labs CBC & Chem 7: 09/13/17 05:56 09/13/17 05:56 Labs: Abnormal Lab Results - Last 24 Hours (Table) 09/12/17 09/12/17 09/12/17 Range/Units 11:32 16:43 20:55 WBC (3.8-10.6) k/uL Neutrophils # (1.3-7.7) k/uL BUN (7-17) mg/dL Glucose (74-99) mg/dL POC Glucose (mg/dL) 73 L 228 H 162 H (75-99) mg/dL Alkaline Phosphatase (38-126) U/L Total Protein (6.3-8.2) g/dL Albumin (3.5-5.0) g/dL Urine Glucose (UA) (Negative) Ur Leukocyte Esterase (Negative) Urine WBC (0-5) /hpf Urine Mucus (None) /hpf Urine Yeast (Budding) (None) /hpf 09/12/17 09/13/17 09/13/17 Range/Units 22:08 05:56 05:56 WBC 11.3 H (3.8-10.6) k/uL Neutrophils # 8.6 H (1.3-7.7) k/uL BUN 18 H (7-17) mg/dL Glucose 154 H (74-99) mg/dL POC Glucose (mg/dL) (75-99) mg/dL Alkaline Phosphatase 250 H (38-126) U/L Total Protein 5.0 L (6.3-8.2) g/dL Albumin 2.8 L (3.5-5.0) g/dL Urine Glucose (UA) 1+ H (Negative) Ur Leukocyte Esterase Large H (Negative) Urine WBC 62 H (0-5) /hpf Urine Mucus Rare H (None) /hpf Urine Yeast (Budding) Many H (None) /hpf 09/13/17 Range/Units 06:19 WBC (3.8-10.6) k/uL Neutrophils # (1.3-7.7) k/uL BUN (7-17) mg/dL Glucose (74-99) mg/dL POC Glucose (mg/dL) 158 H (75-99) mg/dL Alkaline Phosphatase (38-126) U/L Total Protein (6.3-8.2) g/dL Albumin (3.5-5.0) g/dL Urine Glucose (UA) (Negative) Ur Leukocyte Esterase (Negative) Urine WBC (0-5) /hpf Urine Mucus (None) /hpf Urine Yeast (Budding) (None) /hpf Assessment and Plan Plan: Assessment: 1 robotic-assisted thoracoscopic left upper lobe lobectomy with mediastinal lymph node dissection for a left upper lobe mass. The patient is postop day # 6. The chest tube was removed on 09/11/2017 and there is a tiny anterior pneumothorax on the left. She also has significant amount of subcutaneous emphysema. No significant respiratory distress, surgical wound sites are clean dry and intact for now. 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 2 COPD at baseline with an FEV1 of 70% of predicted preoperatively 3 left hemidiaphragmatic elevation following a left upper lobe resection. This could be related to volume loss/lobectomy. At the same and the patient has some gastric distention, a symptomatically at this stage. 4 coronary artery disease with previous history of coronary intervention and stenting 5 hypothyroidism 6 diabetes mellitus 7 history of ITP 8 history of smoking currently in remission Plan: GI service has been consulted, and considering the patient for upper endoscopy. Clinically patient denies worsening dyspnea, continue encouraging incentive spirometry, vital signs are stable, that his chest x-ray results have been reviewed. She is encouraged to ambulate, continue current medical treatment. I performed a history & physical examination of the patient and discussed their management with my nurse practitioner, Jewels Foster. I reviewed the nurse practitioner's note and agree with the documented findings and plan of care. Lung sounds are diminished on the left, clear on the right no rhonchi or wheezes noted.. The findings and the impression was discussed with the patient. I attest to the documentation by the nurse practitioner. Time with Patient: Less than 30
[2017-09-13] MEDS: INSULIN DETEMIR 100 UNIT/ML 10 ML VIAL SQ SCH (11:55)
[2017-09-13 12:00] LABS: Glucose,Whole Blood 183 mg/dL (75-99)
--- NOTE | 2017-09-13 12:09 | XR ---
EXAMINATION TYPE: XR chest 1V portable DATE OF EXAM: 09/13/2017 COMPARISON: 09/13/2017 HISTORY: NG tube placement TECHNIQUE: Single frontal view of the chest is obtained. FINDINGS: There is a persistent 5-10% left apical pneumothorax with elevated left hemidiaphragm, sub cutaneous emphysema and basilar consolidation and pleural effusion. An NG tube seen coursing in the abdomen underlying COPD suspected. IMPRESSION: NG tube seen coursing in the abdomen likely within the stomach. Pleural-parenchymal donnelly ges including left apical pneumothorax stable.
[2017-09-13 16:48] LABS: Glucose,Whole Blood 225 mg/dL (75-99)
[2017-09-13] MEDS ORDERED: DEXTROSE 5%-0.45% NACL 1,000 ML with POTASSIUM CHLORIDE 20 MEQ IV SCH ×2 (18:00)
--- NOTE | 2017-09-13 18:00 | P.PN ---
Subjective Progress Note Date: 09/13/17 Principal diagnosis: Left upper lobe mass. Medical history of coronary artery disease with recent stenting of the left anterior descending coronary artery in December 2016, perforated gastric ulcer with exploratory laparotomy, ITP, hypothyroid, diabetes mellitus type 2, previous tobacco dependence. POD #7 robotic assisted thoracoscopic left upper lobectomy with mediastinal lymph node dissection and fiberoptic bronchoscopy with clearance of mucous plug. The patient is currently laying in bed in no acute distress. She reports complaints of pain to her lower abdomen 3 out of 10 on the pain scale. She denies any complaints of shortness of breath this time. Current oxygen saturation is 96% on 2 L nasal cannula. The patient denies any nausea or vomiting. Denies any bowel movement in the last 24 hours. Continues to complain of a scant amount of serous drainage from her previous left chest tube insertion site. She did have a fever of 101.6 last evening. Bladder scan was completed which showed 1000 mL of urine, a Pino catheter was placed for urinary retention. Remote telemetry where showing last night sinus tachycardia with a heart rate between 1:30 and 140 BPM. Once the Pino catheter was placed , she drained about a liter of urine and her heart rate came down into the 90s. Objective - Vital Signs Vital signs: Vital Signs Temp 99.0 F 09/13/17 04:00 Pulse 98 09/13/17 08:49 Resp 16 09/13/17 08:27 BP 102/50 09/13/17 04:00 Pulse Ox 96 09/13/17 04:00 Intake & Output 09/12/17 09/13/17 09/13/17 18:59 06:59 18:59 Intake Total 416 Output Total 650 Balance 416 -650 Weight 62 kg Intake: Oral 416 Output: Urine 650 Other: Voiding Method Toilet Indwelling Catheter # Voids 1 4 - Constitutional General appearance: Present: cooperative, no acute distress - Respiratory Details: Lung sounds with few scattered crackles to her left lobes, diminished to her left lower lobe. Essentially clear to her right lobes. Respirations are symmetrical and nonlabored. Oxygen saturation are 96% on room air. She is achieving 750-1000 mL on her incentive spirometry. Denies any productive cough. - Cardiovascular Details: Regular rhythm and rate. S1 and S2 present, negative for S3, gallop or murmur. Remote telemetry showing normal sinus rhythm heart rate 89. No edema present. Knee-high VANDANA hose and sequential compression devices in place to her bilateral lower extremities. - Gastrointestinal Gastrointestinal Comment(s): Abdomen is soft, nontender nondistended. Hypoactive bowel sounds all 4 abdominal quadrants. Nothing by mouth at this time. No bowel movement in the last 24 hours. No guarding or rigidity. No organomegaly. No nausea or vomiting. - Genitourinary Genitourinary Comment(s): Pino catheter for accurate I&O and urinary retention. 650 mL output in the last 8 hours of clear yellow urine. - Integumentary Integumentary Comment(s): Skin is warm and dry. No Marshall cyanosis present. Left chest incisions clean dry and approximated. Scant serous drainage from her previous left pleural chest tube insertion site. - Neurologic Neurologic: Present: CNII-XII intact - Musculoskeletal Musculoskeletal: Present: gait normal, strength equal bilaterally - Psychiatric Psychiatric: Present: A&O x's 3, appropriate affect, intact judgment & insight - Allied health notes Allied health notes reviewed: nursing - Labs CBC & Chem 7: 09/13/17 05:56 09/13/17 05:56 Labs: Abnormal Lab Results - Last 24 Hours (Table) 09/12/17 09/12/17 09/12/17 Range/Units 11:32 16:43 20:55 WBC (3.8-10.6) k/uL Neutrophils # (1.3-7.7) k/uL BUN (7-17) mg/dL Glucose (74-99) mg/dL POC Glucose (mg/dL) 73 L 228 H 162 H (75-99) mg/dL Alkaline Phosphatase (38-126) U/L Total Protein (6.3-8.2) g/dL Albumin (3.5-5.0) g/dL Urine Glucose (UA) (Negative) Ur Leukocyte Esterase (Negative) Urine WBC (0-5) /hpf Urine Mucus (None) /hpf Urine Yeast (Budding) (None) /hpf 09/12/17 09/13/17 09/13/17 Range/Units 22:08 05:56 05:56 WBC 11.3 H (3.8-10.6) k/uL Neutrophils # 8.6 H (1.3-7.7) k/uL BUN 18 H (7-17) mg/dL Glucose 154 H (74-99) mg/dL POC Glucose (mg/dL) (75-99) mg/dL Alkaline Phosphatase 250 H (38-126) U/L Total Protein 5.0 L (6.3-8.2) g/dL Albumin 2.8 L (3.5-5.0) g/dL Urine Glucose (UA) 1+ H (Negative) Ur Leukocyte Esterase Large H (Negative) Urine WBC 62 H (0-5) /hpf Urine Mucus Rare H (None) /hpf Urine Yeast (Budding) Many H (None) /hpf 09/13/17 Range/Units 06:19 WBC (3.8-10.6) k/uL Neutrophils # (1.3-7.7) k/uL BUN (7-17) mg/dL Glucose (74-99) mg/dL POC Glucose (mg/dL) 158 H (75-99) mg/dL Alkaline Phosphatase (38-126) U/L Total Protein (6.3-8.2) g/dL Albumin (3.5-5.0) g/dL Urine Glucose (UA) (Negative) Ur Leukocyte Esterase (Negative) Urine WBC (0-5) /hpf Urine Mucus (None) /hpf Urine Yeast (Budding) (None) /hpf - Imaging and Cardiology Chest x-ray: report reviewed, image reviewed Assessment and Plan (1) History of ITP Current Visit: Yes Status: Acute Code(s): Z86.2 - PRSNL HISTORY OF DIS OF THE BLD/BLD-FORM ORG/IMMUN [facility] SNOMED Code(s): 956394882 (2) History of gastric ulcer Current Visit: Yes Status: Acute Code(s): Z87.19 - PERSONAL HISTORY OF OTHER DISEASES OF THE DIGESTIVE SYSTEM SNOMED Code(s): 909708477 (3) History of myocardial infarction Current Visit: Yes Status: Acute Code(s): I25.2 - OLD MYOCARDIAL INFARCTION SNOMED Code(s): 300770756 (4) Tobacco dependence in remission Current Visit: Yes Status: Acute Code(s): F17.201 - NICOTINE DEPENDENCE, UNSPECIFIED, IN REMISSION SNOMED Code(s): 823558456 (5) Mass of upper lobe of left lung Current Visit: Yes Status: Acute Code(s): R91.8 - OTHER NONSPECIFIC ABNORMAL FINDING OF LUNG FIELD SNOMED Code(s): 916392657 (6) Coronary artery disease Current Visit: Yes Status: Chronic Code(s): I25.10 - ATHSCL HEART DISEASE OF [place] CORONARY ARTERY W/O ANG PCTRS SNOMED Code(s): 99493744 (7) Diabetes mellitus Current Visit: Yes Status: Chronic Code(s): E11.9 - TYPE 2 DIABETES MELLITUS WITHOUT COMPLICATIONS SNOMED Code(s): 69792121 (8) History of heart artery stent Current Visit: Yes Status: Chronic Code(s): Z95.5 - PRESENCE OF CORONARY ANGIOPLASTY IMPLANT AND GRAFT SNOMED Code(s): 206565845 (9) Hypothyroid Current Visit: Yes Status: Chronic Code(s): E03.9 - HYPOTHYROIDISM, UNSPECIFIED SNOMED Code(s): 21999172 Plan: 1. Continue stool softeners and Reglan. 2. Encourage incentive spirometry use 10 times every hour. 3. Reinforced the importance of continued smoking cessation 4. Increase activity, ambulate in hallway, PT/OT following. 5. Bronchodilators per pulmonology. 6. Continue pain control with ordered medication regimen. 7. GI/DVT prophylaxis. 8. Dr. Mccall from gastroenterology consulted yesterday, consult pending. 9. Patient is nothing by mouth at this time. 10. More recommendations to follow based on the patient's clinical course. Anticipate discharge home within the next 24 hours. Time with Patient: Greater than 30
[2017-09-13 20:54] LABS: Glucose,Whole Blood 215 mg/dL (75-99)
[2017-09-13] MEDS: OXYBUTYNIN XL 5 MG TAB.ER.24 PO SCH (21:00)
[2017-09-13] MEDS: D5-0.45% NACL WITH KCL 20MEQ/L 1,000 ML IV SCH (21:01)
[2017-09-13] MEDS: INSULIN NPH 300 UNIT/3 ML VIAL SQ SCH (21:02)
[2017-09-14 06:04] LABS: Glucose,Whole Blood 253 mg/dL (75-99)
[2017-09-14] MEDS: METOCLOPRAMIDE 5 MG/ML 2 ML VIAL IVP SCH ×4 (06:15→23:37)
[2017-09-14 06:56] LABS: Basophils % (A) 0 %; Eosinophils % (A) 0 %; HCT 38.1 % (34.0-46.0); HGB 12.2 gm/dL (11.4-16.0); Lymphocytes # (A) 0.9 k/uL (1.0-4.8); Lymphocytes % (A) 8 %; MCH 28.5 pg (25.0-35.0); MCHC 31.9 g/dL (31.0-37.0); MCV 89.1 fL (80.0-100.0); Mean Platelet Volume 7.1; Monocytes # (A) 0.8 k/uL (0-1.0); Monocytes % (A) 6 %; Neutrophils # (A) 10.2 k/uL (1.3-7.7); Neutrophils % (A) 85 %; Platelet Count 309 k/uL (150-450); RBC 4.27 m/uL (3.80-5.40); RDW 14.5 % (11.5-15.5)
[2017-09-14 07:06] LABS: ALT 57 U/L (9-52); AST 30 U/L (14-36); Albumin 2.9 g/dL (3.5-5.0); Alkaline Phosphatase 283 U/L (38-126); Anion Gap 13 mmol/L; Blood Urea Nitrogen 12 mg/dL (7-17); Calcium 8.9 mg/dL (8.4-10.2); Carbon Dioxide 21 mmol/L (22-30); Chloride 105 mmol/L (98-107); Glucose 283 mg/dL (74-99); Potassium 4.3 mmol/L (3.5-5.1); Sodium 139 mmol/L (137-145); Total Bilirubin 0.8 mg/dL (0.2-1.3); Total Protein 5.3 g/dL (6.3-8.2)
[2017-09-14] MEDS ORDERED: PROPOFOL 10 MG/ML 20 ML VIAL IV ONE (07:15)
[2017-09-14] MEDS ORDERED: LIDOCAINE 1% INJ 10MG/ML (20 ML MDV) ONE (07:15)
[2017-09-14] MEDS ORDERED: IV FLUID CONTINUATION 1,000 ML IV ONE (07:21)
--- NOTE | 2017-09-14 07:39 | XR ---
EXAMINATION TYPE: XR chest 1V portable DATE OF EXAM: 09/14/2017 COMPARISON: 09/13/2017 HISTORY: NG tube placement TECHNIQUE: Single frontal view of the chest is obtained. FINDINGS: There is a persistent 5-10% left apical pneumothorax with elevated left hemidiaphragm, sub cutaneous emphysema and basilar consolidation and pleural effusion. An NG tube seen coursing in the a bdomen underlying COPD suspected. IMPRESSION: Stable left apical pneumothorax with stable appearing consolidation and pleural effusion on the left.
--- NOTE | 2017-09-14 07:41 | P.PCN ---
Date of Procedure: 09/14/17 Procedure(s) Performed: Procedure: Esophagogastroduodenoscopy. Preoperative diagnosis: Abdominal pain and distention and abnormal CT of the abdomen. Postoperative diagnosis: Retained partially digested food in the stomach with no evidence of mechanical obstruction to the gastric outlet for any duodenal pathology, possibly the manifestation of gastroparesis/ileus.. Preparation and sedation: Was provided by anesthesia. 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 She has not been having any nausea or vomiting and there is no history of diarrhea hematemesis or hematochezia. CT abdomen and pelvis reported marked distention of the stomach with layering ingested debris with segmental dilatation and narrowing of the duodenum without obstructing lesion. No abnormal wall thickening. Additionally she has a stable line along the distal sigmoid from previous resection and reanastomosis moderate stool burden in the right hemicolon. Some rectal wall thickening. Procedure: With the patient on her left lateral decubitus position and after informed consent and adequate sedation, I passed the Olympus-GIF 160 video upper endoscope through the cricopharyngeus down the esophagus. The esophagus appeared healthy. GE junction was around 36 cm from the incisors and there was a very small sliding hiatal hernia but no obvious esophagitis or complicated reflux disease. The endoscope was then passed into the stomach which was insufflated with air and inspected in detail including the retroflex view in the cardia. There was retained partially digested food material in the stomach but they did not see any evidence of mechanical obstruction to the gastric outlet. There was a patulous pylorus and I was able to advance the endoscope into the duodenum. Pyloric channel, duodenal bulb, post bulbar area and descending duodenum appeared within normal limits. There was a small amount of bilious secretions in the transverse duodenum. No biopsies were indicated and I did not replace the NG tube. The patient tolerated the procedure well. Plan: The patient was reassured. Its possible that we could be dealing with the manifestation of gastroparesis/ileus. Will allow clear liquid diet and monitor her course closely. Because of her history and the findings on her colon on CT consideration can be given for a colonoscopy depending on her course. Will follow with you with interest.
[2017-09-14] MEDS ORDERED: NA PHOS,M-B/NA PHOS,DI-BA 133 ML ENEMA RECTAL ONE (08:00)
[2017-09-14] MEDS: FORMOTEROL FUMARATE 20 MCG/2 ML NEBU INHALATION SCH ×2 (08:16→19:13)
[2017-09-14] MEDS: BUDESONIDE 1 MG/2 ML NEBU INHALATION SCH ×2 (08:16→19:13)
[2017-09-14] MEDS: IPRATROPIUM-ALBUTEROL 3 ML NEB IH SCH ×4 (08:16→19:13)
--- NOTE | 2017-09-14 09:10 | P.PN ---
Subjective Progress Note Date: 09/14/17 Principal diagnosis: Left upper lobe mass. Medical history of coronary artery disease with recent stenting of the left anterior descending coronary artery in December 2016, perforated gastric ulcer with exploratory laparotomy, ITP, hypothyroid, diabetes mellitus type 2, previous tobacco dependence. POD #7 robotic assisted thoracoscopic left upper lobectomy with mediastinal lymph node dissection and fiberoptic bronchoscopy with clearance of mucous plug. Gastroparesis, an unexpected but potential outcome given the patient's long- standing history of diabetes. Patient's currently laying in bed in no acute distress. States pain is somewhat controlled. Just return this morning from EGD which demonstrated gastroparesis. No new complaints. Ambulated in the hallway yesterday. Objective - Vital Signs Vital signs: Vital Signs Temp 98.3 F 09/14/17 04:00 Pulse 118 H 09/14/17 08:38 Resp 20 09/14/17 04:00 BP 139/66 09/14/17 04:00 Pulse Ox 92 L 09/14/17 04:00 Intake & Output 09/13/17 09/14/17 09/14/17 18:59 06:59 18:59 Output Total 75 600 125 Balance -75 -600 -125 Weight 62 kg 61.5 kg Output: Gastric Drainage 75 125 Urine 600 Other: Voiding Method Indwelling Catheter Indwelling Catheter # Voids 2 - Constitutional General appearance: Present: cooperative, no acute distress - Respiratory Details: Lungs sounds diminished bilaterally. Respirations even, nonlabored. Currently on 2 L nasal cannula, was 92% on room air this morning. Able to achieve 750 mL on incentive spirometry. - Cardiovascular Details: S1, S2 present. Regular rate and rhythm, sinus rhythm on telemetry. Palpable peripheral pulses bilaterally. No edema present. No calf pain or tenderness noted. SCDs present. - Gastrointestinal Gastrointestinal Comment(s): Abdomen soft, nontender, nondistended. Active bowel sounds 4 quadrants. Tolerating clear liquid diet. - Genitourinary Genitourinary Comment(s): Pino present draining clear, yellow urine. Output 600 mL overnight. - Integumentary Integumentary Comment(s): Skin is warm and dry with evidence of good perfusion. Left lateral wall incisions covered with dry intact dressing. - Neurologic Neurologic: Present: CNII-XII intact - Musculoskeletal Musculoskeletal: Present: gait normal, strength equal bilaterally - Psychiatric Psychiatric: Present: A&O x's 3, appropriate affect, intact judgment & insight - Allied health notes Allied health notes reviewed: nursing - Labs CBC & Chem 7: 09/14/17 06:25 09/14/17 06:25 Labs: Abnormal Lab Results - Last 24 Hours (Table) 09/13/17 09/13/17 09/13/17 Range/Units 11:57 16:45 20:53 WBC (3.8-10.6) k/uL Neutrophils # (1.3-7.7) k/uL Lymphocytes # (1.0-4.8) k/uL Carbon Dioxide (22-30) mmol/L Glucose (74-99) mg/dL POC Glucose (mg/dL) 183 H 225 H 215 H (75-99) mg/dL ALT (9-52) U/L Alkaline Phosphatase (38-126) U/L Total Protein (6.3-8.2) g/dL Albumin (3.5-5.0) g/dL 09/14/17 09/14/17 09/14/17 Range/Units 06:02 06:25 06:25 WBC 12.0 H (3.8-10.6) k/uL Neutrophils # 10.2 H (1.3-7.7) k/uL Lymphocytes # 0.9 L (1.0-4.8) k/uL Carbon Dioxide 21 L (22-30) mmol/L Glucose 283 H (74-99) mg/dL POC Glucose (mg/dL) 253 H (75-99) mg/dL ALT 57 H (9-52) U/L Alkaline Phosphatase 283 H (38-126) U/L Total Protein 5.3 L (6.3-8.2) g/dL Albumin 2.9 L (3.5-5.0) g/dL Microbiology - Last 24 Hours (Table) 09/13/17 18:12 Urine Culture - Preliminary Urine,Catheterized - Imaging and Cardiology Chest x-ray: report reviewed, image reviewed Assessment and Plan (1) Mass of upper lobe of left lung Current Visit: Yes Status: Acute Code(s): R91.8 - OTHER NONSPECIFIC ABNORMAL FINDING OF LUNG FIELD SNOMED Code(s): 989308229 (2) Coronary artery disease Current Visit: Yes Status: Chronic Code(s): I25.10 - ATHSCL HEART DISEASE OF [place] CORONARY ARTERY W/O ANG PCTRS SNOMED Code(s): 78872796 (3) History of heart artery stent Current Visit: Yes Status: Chronic Code(s): Z95.5 - PRESENCE OF CORONARY ANGIOPLASTY IMPLANT AND GRAFT SNOMED Code(s): 283584297 (4) Hypothyroid Current Visit: Yes Status: Chronic Code(s): E03.9 - HYPOTHYROIDISM, UNSPECIFIED SNOMED Code(s): 87971257 (5) Diabetes mellitus Current Visit: Yes Status: Chronic Code(s): E11.9 - TYPE 2 DIABETES MELLITUS WITHOUT COMPLICATIONS SNOMED Code(s): 35075750 (6) Tobacco dependence in remission Current Visit: Yes Status: Resolved Code(s): F17.201 - NICOTINE DEPENDENCE, UNSPECIFIED, IN REMISSION SNOMED Code(s): 092987598 (7) History of gastric ulcer Current Visit: Yes Status: Resolved Code(s): Z87.19 - PERSONAL HISTORY OF OTHER DISEASES OF THE DIGESTIVE SYSTEM SNOMED Code(s): 058905425 (8) History of ITP Current Visit: Yes Status: Resolved Priority: Medium Code(s): Z86.2 - PRSNL HISTORY OF DIS OF THE BLD/BLD-FORM ORG/IMMUN MECHNSM SNOMED Code(s): 052159466 Plan: 1. NG tube discontinued by GI. Clear liquid diet resumed. Patient to receive fleets enema today. 2. Continue Reglan for gastroparesis. 3. Discontinue Pino catheter. Bladder scan every 6 hours for residual. May straight cath for greater than 300 mL. 4. Encourage incentive spirometry use 10 times every hour. 5. Encourage continued smoking cessation. 6. Bronchodilators per pulmonology. 7. Pain control with ordered medication regimen. 8. GI/DVT prophylaxis. 9. Increase activity, ambulate in hallway. 10. If patient is able to tolerate diet, void, and stool patient potentially may be discharged to home tomorrow with plans for outpatient colonoscopy per GI service. Time with Patient: Greater than 30
[2017-09-14] MEDS: D5-0.45% NACL WITH KCL 20MEQ/L 1,000 ML IV SCH (09:23)
[2017-09-14] MEDS: HEPARIN SODIUM,PORCINE 5,000 UNIT/ML 1 ML VIAL SQ SCH ×3 (09:25→23:37)
[2017-09-14] MEDS: METOPROLOL TARTRATE 25 MG TAB PO SCH ×2 (09:25→20:19)
[2017-09-14] MEDS: PANTOPRAZOLE 40 MG/10 ML VIAL IVP SCH (09:26)
[2017-09-14] MEDS: ASPIRIN 81 MG PO SCH (09:26)
[2017-09-14] MEDS: ATORVASTATIN 80 MG TAB PO SCH (09:27)
[2017-09-14] MEDS: CLOPIDOGREL 75 MG TAB PO SCH (09:27)
[2017-09-14] MEDS: DOCUSATE 100 MG CAP PO SCH (09:27)
[2017-09-14] MEDS: LISINOPRIL 5 MG TAB PO SCH ×2 (09:27→20:19)
[2017-09-14] MEDS: traMADol 50 MG TAB PO SCH ×4 (09:33→23:36)
[2017-09-14] MEDS: INSULN ASP PRT/INSULIN ASPART 100 UNIT/ML 10 ML VIAL SQ SCH (09:34)
[2017-09-14] MEDS: INSULIN ASPART 100 UNIT/ML 1 ML 10 ML VIAL SQ SCH ×5 (09:34→21:15)
[2017-09-14 11:24] LABS: Glucose,Whole Blood 214 mg/dL (75-99)
[2017-09-14] MEDS: INSULIN DETEMIR 100 UNIT/ML 10 ML VIAL SQ SCH (12:13)
--- NOTE | 2017-09-14 15:33 | P.PN ---
Subjective Progress Note Date: 09/14/17 Principal diagnosis: Left upper lobe mass, status post robotic-assisted thorascopic left upper lobe lobectomy with mediastinal lymph node dissection. 66-year-old female patient with known history of COPD and FEV1 of 70% of predicted, was found to have a left upper lobe mass that showed intense uptake in the PET scan. Based on that, the patient was taken to surgery and she underwent a robotic-assisted thoracoscopy and left upper lobe resection with mediastinal lymph node dissection. The patient is postop day #4. On today's evaluation, the patient is still has a left-sided chest tube. The patient has a small amount of air leak on today's evaluation. The patient has drained approximately 75 mL of serosanguineous drainage overnight and to 30 ML's over the past 24 hours. The patient is able to continue using incentive spirometer and she is pulling up to 1000. She is on oxygen at 2 L/m nasal cannula. Hemodynamically stable. Surgical wound is dry clean and intact. No altered mentation. No chest pain. Pain is under good control for now. The chest x- ray that was done today showed a tiny 5-10% left apical pneumothorax. There is also a left lower lobe consolidation pleural effusion. There is stomach distention and there is also some periods emphysema along the left chest wall. On 09/11/2017 patient seen in follow-up on selective care unit. Today's chest x -ray showed 5-10% stable pneumothorax on the right, persistent marked distention of the gastric air bubble. Chest tube has been discontinued, patient continues to use her incentive spirometry. KUB x-ray was obtained, and showed massive distention of the gastric air bubble, and fecal impaction. Patient had a bowel movement last night, and again this morning. Abdomen is soft, and nontender. Pulse ox on 2 L per nasal cannula was 100%, her pulse ox with ambulation in the room was 96%, patient is comfortable, denies any dyspnea. Lung sounds are positive for diminished on the left compared to the right, though no rhonchi, no wheezes noted. On 09/12/2017 I'm seeing this patient for a follow-up. 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 Currently the patient is postop day #5. The left-sided chest tube has been removed. One concern was a significant gastric distention that was seen on the chest x-ray and abdominal films. The patient had some increased stool a combination within the large bowel for which the patient was given laxative with good results and the patient has been able to pass bowel movements. However, there was still concern of the large gastric distention that was seen and based on that a CAT scan of the abdomen and pelvis was done this afternoon that obviously showed postsurgical changes within the left lung. Specifically her was a tiny left- sided pneumothorax anteriorly and evidence of subcutaneous emphysema tracking down to the left flank area. The residual left lower lobe was well expanded. There was marked gastric distention and there was also segmental limitation and narrowing of the duodenum without any obstructions seen. No NG tube was inserted and the patient was still asymptomatic and she was able to pass bowel movements and she does not have any nausea or emesis. There was some prominent fluid-filled small bowel loops in the lower abdomen and pelvis that could also potentially present some ileus. The patient had rectal wall thickening beyond an area of anastomosis and sigmoid resection and there was some fecal material within the large bowel. Based on the radiologist's recommendations, there was a need for a EGD and colonoscopy to assess these abnormalities and investigate this findings further. Nevertheless, despite his ongoing changes, the patient is not acting any septic no she is behaving as having a bowel obstruction. No abdominal distention. No nausea or emesis. She is ambulating. She is currently on room air oxygen. On 09/13/2017 patient seen in follow-up on [facility] care unit. Abdomen/pelvis CT was obtained yesterday, showed marked gastric distention with segmental dilatation and narrowing of the duodenum. There was some prominent fluid- filled small bowel loops in the lower abdomen and possible ileus or enteritis. There was some rectal wall thickening And evidence of prior distal sigmoid resection and reanastomosis. Patient denies any nausea, or vomiting. She has been receiving Colace, Reglan, yesterday she received Dulcolax suppository, small results. There is still evidence of a large amount of stool in the large colon. GI service has been consulted, and is considering the patient for upper endoscopy today. Patient is currently nothing by mouth. She she has mild diffuse tenderness in the left upper quadrant To palpation. Today's labs were reviewed, and essentially unremarkable. Chest x-ray results from today was reviewed by Dr. Milan, and shows stable left apical pneumothorax post chest tube removal measuring 5-10%. Persistent distention of the gastric air bubble. From pulmonary standpoint patient denies any acute complaints, no dyspnea, she is compliant with her incentive spirometry, she has been ambulating. Pulse ox on 2 L per nasal cannula is 99%. Sounds are clear on the right, diminished over left lower lobe, wheezes, no rhonchi, no rales noted. The patient is seen again today 09/14/2017 in follow-up on the selective care unit. Postoperative day #7. She is currently awake and alert in no acute distress. She denies any worsening shortness of breath, cough or congestion. She is maintaining O2 saturations in the upper 90s on 2 L/m per nasal cannula. Today's chest x-ray continues to show persistent 5-10% left apical pneumothorax. Stable compared to previous. She did undergo EGD this morning and was found to have retained partially digested food in the stomach with no evidence of mechanical obstruction to the gastric outlet for any duodenal pathology. Consideration gastroparesis/ileus. Nasogastric tube remains in place. Objective - Vital Signs Vital signs: Vital Signs Temp 98.9 F 09/14/17 08:00 Pulse 108 H 09/14/17 12:10 Resp 20 09/14/17 11:33 BP 129/62 09/14/17 11:33 Pulse Ox 96 09/14/17 11:33 Intake & Output 09/13/17 09/14/17 09/14/17 18:59 06:59 18:59 Intake Total 480 Output Total 75 600 125 Balance -75 -600 355 Weight 62 kg 61.5 kg Intake: Oral 480 Output: Gastric Drainage 75 125 Urine 600 Other: Voiding Method Indwelling Catheter Indwelling Catheter Indwelling Catheter # Voids 2 1 # Bowel Movements 1 - Exam Gen. appearance the patient is calm comfortable likely distress Head exam was generally normal. There was no scleral icterus or corneal arcus. Mucous membranes were moist. Nasogastric tube in place. Neck was supple and without jugular venous distension, thyromegaly, or carotid bruits. Carotids were easily palpable bilaterally. There was no adenopathy. Lungs sounds are diminished on the left compared to the right. The patient also has a subcutaneous emphysema along the left lateral chest. Chest tube has been discontinued Cardiac exam revealed the PMI to be normally situated and sized. The rhythm was regular and no extrasystoles were noted during several minutes of auscultation. The first and second heart sounds were normal and physiologic splitting of the second heart sound was noted. There were no murmurs, rubs, clicks, or gallops. Abdominal exam revealed normal bowel sounds. The abdomen was soft, non-tender, and without masses, organomegaly, or appreciable enlargement of the abdominal aorta. Examination of the extremities revealed easily palpable radial, femoral and pedal pulses. There was no cyanosis, clubbing or edema. Examination of the skin revealed no evidence of significant rashes, suspicious appearing nevi or other concerning lesions. Neurologically the patient is awake and alert and there is no focal neurological deficits. - Labs CBC & Chem 7: 09/14/17 06:25 09/14/17 06:25 Labs: Abnormal Lab Results - Last 24 Hours (Table) 09/13/17 09/13/17 09/14/17 Range/Units 16:45 20:53 06:02 WBC (3.8-10.6) k/uL Neutrophils # (1.3-7.7) k/uL Lymphocytes # (1.0-4.8) k/uL Carbon Dioxide (22-30) mmol/L Glucose (74-99) mg/dL POC Glucose (mg/dL) 225 H 215 H 253 H (75-99) mg/dL ALT (9-52) U/L Alkaline Phosphatase (38-126) U/L Total Protein (6.3-8.2) g/dL Albumin (3.5-5.0) g/dL 09/14/17 09/14/17 09/14/17 Range/Units 06:25 06:25 11:20 WBC 12.0 H (3.8-10.6) k/uL Neutrophils # 10.2 H (1.3-7.7) k/uL Lymphocytes # 0.9 L (1.0-4.8) k/uL Carbon Dioxide 21 L (22-30) mmol/L Glucose 283 H (74-99) mg/dL POC Glucose (mg/dL) 214 H (75-99) mg/dL ALT 57 H (9-52) U/L Alkaline Phosphatase 283 H (38-126) U/L Total Protein 5.3 L (6.3-8.2) g/dL Albumin 2.9 L (3.5-5.0) g/dL Microbiology - Last 24 Hours (Table) 09/13/17 18:12 Urine Culture - Preliminary Urine,Catheterized Assessment and Plan Assessment: Assessment: 1 robotic-assisted thoracoscopic left upper lobe lobectomy with mediastinal lymph node dissection for a left upper lobe mass. The patient is postop day # 7. The chest tube was removed on 09/11/2017 and there is a tiny anterior pneumothorax on the left. She also has significant amount of subcutaneous emphysema. No significant respiratory distress, surgical wound sites are clean dry and intact for now. 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 2 COPD at baseline with an FEV1 of 70% of predicted preoperatively 3 left hemidiaphragmatic elevation following a left upper lobe resection. This could be related to volume loss/lobectomy. At the same and the patient has some gastric distention, a symptomatically at this stage. 4 abdominal distention and discomfort secondary to suspected gastroparesis/ ileus. EGD revealed retained partially digested food in the stomach with no evidence of mechanical obstruction to the gastric outlet. 5 hypothyroidism 6 diabetes mellitus 7 history of ITP 8 history of smoking currently in remission 9 coronary artery disease with previous history of coronary intervention and stenting Plan: The patient was seen and evaluated by Dr. Milan. Chest x-ray and labs were reviewed. EGD noted. Nasogastric tube remains in place. We will continue with her current pulmonary medications. Increase her activity as tolerated. We 'll continue to follow. I, the cosigning physician, performed a history & physical examination of the patient. Lungs sounds with few scattered rhonchi more so on the left. Maintaining good O2 saturations in the 90s on 2 L/m per nasal cannula. I discussed the assessment and plan of care with my nurse practitioner, Gaye Tsang. I attest to the above note as dictated by her.
[2017-09-14 17:03] LABS: Glucose,Whole Blood 166 mg/dL (75-99)
[2017-09-14] MEDS: ALPRAZolam 0.25 MG TAB PO PRN (20:19)
[2017-09-14] MEDS: OXYBUTYNIN XL 5 MG TAB.ER.24 PO SCH (20:19)
[2017-09-14 21:03] LABS: Glucose,Whole Blood 70 mg/dL (75-99)
[2017-09-14] MEDS: INSULIN NPH 300 UNIT/3 ML VIAL SQ SCH (21:16)
[2017-09-15] MEDS: ACETAMINOPHEN TAB 325 MG TAB PO PRN ×2 (05:57→21:57)
[2017-09-15 05:58] LABS: Glucose,Whole Blood 59 mg/dL (75-99)
[2017-09-15] MEDS: METOCLOPRAMIDE 5 MG/ML 2 ML VIAL IVP SCH ×3 (05:58→17:42)
[2017-09-15] MEDS: INSULIN ASPART 100 UNIT/ML 1 ML 10 ML VIAL SQ SCH ×5 (06:05→21:01)
[2017-09-15 06:16] LABS: Glucose,Whole Blood 60 mg/dL (75-99)
[2017-09-15 06:42] LABS: Glucose,Whole Blood 104 mg/dL (75-99)
--- NOTE | 2017-09-15 07:47 | XR ---
EXAMINATION TYPE: XR chest 2V DATE OF EXAM: 09/15/2017 COMPARISON: 09/14/2017 HISTORY: 66-year-old female status post left upper lobectomy, cough and shortness of breath TECHNIQUE: Frontal and lateral views FINDINGS: NG tube has been removed. Continued volume loss in the left hemithorax with leftward cardiac mediasti nal shift. Elevation of left hemidiaphragm also in keeping with the left hemithoracic volume loss. Th ere is increasing left-sided pleural effusion now with a meniscus seen at the upper thoracic level. IMPRESSION: 1. Persistent left hemithoracic volume loss causing leftward cardiomediastinal shift and elevation of the left hemidiaphragm. 2. Worsening left pleural effusion now with a meniscus seen up to the upper thoracic level.
[2017-09-15] MEDS: INSULN ASP PRT/INSULIN ASPART 100 UNIT/ML 10 ML VIAL SQ SCH (08:44)
[2017-09-15] MEDS: ATORVASTATIN 80 MG TAB PO SCH (08:49)
[2017-09-15] MEDS: CLOPIDOGREL 75 MG TAB PO SCH (08:49)
[2017-09-15] MEDS: DOCUSATE 100 MG CAP PO SCH (08:49)
[2017-09-15] MEDS: ASPIRIN 81 MG PO SCH (08:49)
[2017-09-15] MEDS: METOPROLOL TARTRATE 25 MG TAB PO SCH ×2 (08:50→20:06)
[2017-09-15] MEDS: LISINOPRIL 5 MG TAB PO SCH ×2 (08:50→20:06)
[2017-09-15] MEDS: PANTOPRAZOLE 40 MG/10 ML VIAL IVP SCH (08:51)
[2017-09-15] MEDS: traMADol 50 MG TAB PO SCH ×4 (08:56→21:19)
[2017-09-15] MEDS: HEPARIN SODIUM,PORCINE 5,000 UNIT/ML 1 ML VIAL SQ SCH ×2 (08:58→17:03)
[2017-09-15 10:14] LABS: Basophils % (A) 0 %; Eosinophils # (A) 0.1 k/uL (0-0.7); Eosinophils % (A) 1 %; HCT 38.6 % (34.0-46.0); HGB 12.1 gm/dL (11.4-16.0); Lymphocytes # (A) 1.3 k/uL (1.0-4.8); Lymphocytes % (A) 13 %; MCHC 31.3 g/dL (31.0-37.0); MCV 89.5 fL (80.0-100.0); Mean Platelet Volume 7.7; Monocytes # (A) 0.7 k/uL (0-1.0); Monocytes % (A) 7 %; Neutrophils # (A) 8.3 k/uL (1.3-7.7); Neutrophils % (A) 78 %; Platelet Count 360 k/uL (150-450); RBC 4.31 m/uL (3.80-5.40); RDW 14.2 % (11.5-15.5); WBC 10.6 k/uL (3.8-10.6)
--- NOTE | 2017-09-15 10:26 | P.PN ---
Subjective Progress Note Date: 09/15/17 Principal diagnosis: Left upper lobe mass. Medical history of coronary artery disease with recent stenting of the left anterior descending coronary artery in December 2016, perforated gastric ulcer with exploratory laparotomy, ITP, hypothyroid, diabetes mellitus type 2, previous tobacco dependence. POD #9 robotic assisted thoracoscopic left upper lobectomy with mediastinal lymph node dissection and fiberoptic bronchoscopy with clearance of mucous plug. POD #[address] Phillips. Gastroparesis, an unexpected but potential outcome given the patient's long- standing history of diabetes. Postoperative left pleural effusion, an unexpected but potential outcome of surgery. The patient is currently laying in bed in no acute distress. She denies any complaints of pain or shortness of breath at this time. She reports that she has been a building in the hallway with minimal assistance. She also reports that her bowels have been moving and she has been voiding without difficulty. Objective - Vital Signs Vital signs: Vital Signs Temp 98.6 F 09/15/17 08:00 Pulse 90 09/15/17 08:00 Resp 18 09/15/17 08:00 BP 90/45 09/15/17 08:00 Pulse Ox 97 09/15/17 08:00 Intake & Output 09/14/17 09/15/17 09/15/17 18:59 06:59 18:59 Intake Total 720 240 100 Output Total 125 Balance 595 240 100 Weight 57.1 kg Intake: Oral 720 240 100 Output: Gastric Drainage 125 Other: Voiding Method Toilet Toilet # Voids 1 1 # Bowel Movements 1 - Constitutional General appearance: Present: cooperative, no acute distress - Respiratory Details: Lung sounds diminished to her left lobes, essentially clear to her right lobes. Respirations are symmetrical and nonlabored. Oxygen saturation are 97% on 2 L nasal cannula. She is achieving 750 mL on her incentive spirometry. - Cardiovascular Details: Regular rhythm and rate. S1 and S2 present, positive systolic murmur 2/6. Remote telemetry showing normal sinus rhythm heart rate 98. No edema present. Knee-high VANDANA hose and sequential compression devices in place to her bilateral lower extremities. - Gastrointestinal Gastrointestinal Comment(s): Abdomen is soft, nontender nondistended. Hypoactive bowel sounds all 4 abdominal quadrants. Tolerating clear liquid diet. Bowel movement yesterday . - Genitourinary Genitourinary Comment(s): Voiding clear yellow urine. - Integumentary Integumentary Comment(s): Skin is warm and dry. No clubbing or cyanosis present. Left lateral chest incisions clean dry and approximated. No drainage or redness present. - Neurologic Neurologic: Present: CNII-XII intact - Musculoskeletal Musculoskeletal: Present: gait normal, strength equal bilaterally - Psychiatric Psychiatric: Present: A&O x's 3, appropriate affect, intact judgment & insight - Allied health notes Allied health notes reviewed: nursing - Labs CBC & Chem 7: 09/14/17 06:25 09/14/17 06:25 Labs: Abnormal Lab Results - Last 24 Hours (Table) 09/14/17 09/14/17 09/14/17 Range/Units 11:20 17:01 21:01 POC Glucose (mg/dL) 214 H 166 H 70 L (75-99) mg/dL 09/15/17 09/15/17 09/15/17 Range/Units 05:56 06:14 06:30 POC Glucose (mg/dL) 59 L 60 L 104 H (75-99) mg/dL Microbiology - Last 24 Hours (Table) 09/13/17 18:12 Urine Culture - Final Urine,Catheterized Rosa Maria albicans - Imaging and Cardiology Chest x-ray: report reviewed, image reviewed Assessment and Plan (1) History of ITP Current Visit: Yes Status: Acute Code(s): Z86.2 - PRSNL HISTORY OF DIS OF THE BLD/BLD-FORM ORG/IMMUN MECHNSM SNOMED Code(s): 379371227 (2) History of gastric ulcer Current Visit: Yes Status: Acute Code(s): Z87.19 - PERSONAL HISTORY OF OTHER DISEASES OF THE DIGESTIVE SYSTEM SNOMED Code(s): 543274235 (3) History of myocardial infarction Current Visit: Yes Status: Acute Code(s): I25.2 - OLD MYOCARDIAL INFARCTION SNOMED Code(s): 284724232 (4) Tobacco dependence in remission Current Visit: Yes Status: Acute Code(s): F17.201 - NICOTINE DEPENDENCE, UNSPECIFIED, IN REMISSION SNOMED Code(s): 498906622 (5) Mass of upper lobe of left lung Current Visit: Yes Status: Acute Code(s): R91.8 - OTHER NONSPECIFIC ABNORMAL FINDING OF LUNG FIELD SNOMED Code(s): 274179937 (6) Coronary artery disease Current Visit: Yes Status: Chronic Code(s): I25.10 - ATHSCL HEART DISEASE OF [place] CORONARY ARTERY W/O ANG PCTRS SNOMED Code(s): 36016881 (7) Diabetes mellitus Current Visit: Yes Status: Chronic Code(s): E11.9 - TYPE 2 DIABETES MELLITUS WITHOUT COMPLICATIONS SNOMED Code(s): 78492180 (8) History of heart artery stent Current Visit: Yes Status: Chronic Code(s): Z95.5 - PRESENCE OF CORONARY ANGIOPLASTY IMPLANT AND GRAFT SNOMED Code(s): 879568501 (9) Hypothyroid Current Visit: Yes Status: Chronic Code(s): E03.9 - HYPOTHYROIDISM, UNSPECIFIED SNOMED Code(s): 30250273 Plan: 1. Continue stool softeners and Reglan for gastroparesis. 2. Encourage incentive spirometry use 10 times every hour. 3. Reinforced the importance of continued smoking cessation 4. Increase activity, ambulate in hallway, PT/OT following. 5. Bronchodilators per pulmonology. 6. Continue pain control with ordered medication regimen. 7. GI/DVT prophylaxis. 8. Continue bladder scan every 6 hours for post void residual. May straight cath for greater than 300 mL. 9. GI and DVT prophylaxis. 10. We will order an ultrasound of her left chest today with markings, possible left thoracentesis performed by Dr. Milan. 11. More recommendations to follow based on the patient's clinical course. Time with Patient: Greater than 30
[2017-09-15 10:32] LABS: ALT 64 U/L (9-52); AST 62 U/L (14-36); Alkaline Phosphatase 324 U/L (38-126); Anion Gap 12 mmol/L; Blood Urea Nitrogen 9 mg/dL (7-17); Calcium 9.3 mg/dL (8.4-10.2); Carbon Dioxide 26 mmol/L (22-30); Chloride 100 mmol/L (98-107); Glucose 149 mg/dL (74-99); Potassium 4.7 mmol/L (3.5-5.1); Sodium 138 mmol/L (137-145); Total Bilirubin 0.5 mg/dL (0.2-1.3); Total Protein 5.4 g/dL (6.3-8.2)
--- NOTE | 2017-09-15 10:50 | US ---
EXAMINATION TYPE: US chest DATE OF EXAM: 09/15/2017 COMPARISON: Radiographs 09/15/2017 CLINICAL HISTORY: 66-year-old female Left pleural effusion. Hx of left upper lung lobe removed last week due to lung Ca. Technique: Multiple sonographic images of the posterior left lower hemithorax for assessment of pleur al effusion. FINDINGS: EXAM MEASUREMENTS: Left Pleural Effusion fluid pocket: 0.6 cm Left side NOT marked for possible thoracentesis outside the dept. Pulmonologists are able to review the images in the patient?s EMR. IMPRESSIONS: Scanning of the left lung base shows only trace pleural fluid. Given the fluid level on radiograph, t here may be a more sizable effusion higher up along the left upper lobectomy site.
--- NOTE | 2017-09-15 11:30 | P.PN ---
Subjective Progress Note Date: 09/15/17 On today's evaluation of 09/15/2017, I'm seeing this patient for a follow-up. The patient is looking well. She is ambulating. Chest x-ray from today shows a small air-fluid level within the left upper lobe. I'm aware that the patient had a small loculated pneumothorax and on today's chest x-ray there is a small hydropneumothorax. I was asked to consider a thoracentesis on this patient. Ultrasound of the left chest showed no significant pleural fluid the cannulation and based on that I'm going to wait forthat the patient is doing well and the patient is on room air oxygen. She is tolerating her diet. She is ambulating. No NG tube insertion. No abdominal distention. No fever or chills. Surgical wound site is clean. No other significant events overnight and will continue to follow. 1 she is having issues with urinary retention and the patient be asked to be seen by urology. The urinary catheter was taken out yesterday and we are monitoring the post void residual. Objective - Vital Signs Vital signs: Vital Signs Temp 98.6 F 09/15/17 08:00 Pulse 90 09/15/17 08:00 Resp 18 09/15/17 08:00 BP 90/45 09/15/17 08:00 Pulse Ox 97 09/15/17 08:00 Intake & Output 09/14/17 09/15/17 09/15/17 18:59 06:59 18:59 Intake Total 720 240 100 Output Total 125 Balance 595 240 100 Weight 57.1 kg Intake: Oral 720 240 100 Output: Gastric Drainage 125 Other: Voiding Method Toilet Toilet # Voids 1 1 # Bowel Movements 1 - Exam Gen. appearance the patient is calm comfortable likely distress Head exam was generally normal. There was no scleral icterus or corneal arcus. Mucous membranes were moist. Neck was supple and without jugular venous distension, thyromegaly, or carotid bruits. Carotids were easily palpable bilaterally. There was no adenopathy. Lungs sounds are diminished on the left compared to the right. The patient also has a subcutaneous emphysema on the left chest extending to the flank area. Breath sounds are diminished in the left compared to the right. Cardiac exam revealed the PMI to be normally situated and sized. The rhythm was regular and no extrasystoles were noted during several minutes of auscultation. The first and second heart sounds were normal and physiologic splitting of the second heart sound was noted. There were no murmurs, rubs, clicks, or gallops. Abdominal exam revealed normal bowel sounds. The abdomen was soft, non-tender, and without masses, organomegaly, or appreciable enlargement of the abdominal aorta. Examination of the extremities revealed easily palpable radial, femoral and pedal pulses. There was no cyanosis, clubbing or edema. Examination of the skin revealed no evidence of significant rashes, suspicious appearing nevi or other concerning lesions. Neurologically the patient is awake and alert and there is no focal neurological deficits. - Labs CBC & Chem 7: 09/15/17 09:56 09/15/17 09:56 Labs: Abnormal Lab Results - Last 24 Hours (Table) 09/14/17 09/14/17 09/14/17 Range/Units 11:20 17:01 21:01 Neutrophils # (1.3-7.7) k/uL Glucose (74-99) mg/dL POC Glucose (mg/dL) 214 H 166 H 70 L (75-99) mg/dL AST (14-36) U/L ALT (9-52) U/L Alkaline Phosphatase (38-126) U/L Total Protein (6.3-8.2) g/dL Albumin (3.5-5.0) g/dL 09/15/17 09/15/17 09/15/17 Range/Units 05:56 06:14 06:30 Neutrophils # (1.3-7.7) k/uL Glucose (74-99) mg/dL POC Glucose (mg/dL) 59 L 60 L 104 H (75-99) mg/dL AST (14-36) U/L ALT (9-52) U/L Alkaline Phosphatase (38-126) U/L Total Protein (6.3-8.2) g/dL Albumin (3.5-5.0) g/dL 09/15/17 09/15/17 Range/Units 09:56 09:56 Neutrophils # 8.3 H (1.3-7.7) k/uL Glucose 149 H (74-99) mg/dL POC Glucose (mg/dL) (75-99) mg/dL AST 62 H (14-36) U/L ALT 64 H (9-52) U/L Alkaline Phosphatase 324 H (38-126) U/L Total Protein 5.4 L (6.3-8.2) g/dL Albumin 3.0 L (3.5-5.0) g/dL Microbiology - Last 24 Hours (Table) 09/13/17 18:12 Urine Culture - Final Urine,Catheterized Rosa Maria albicans Assessment and Plan Plan: Assessment 1 robotic-assisted thoracoscopic left upper lobe lobectomy with mediastinal lymph node dissection for a left upper lobe mass. The patient is postop day # 8. 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 The left hemithorax shows some volume loss and elevation of the left hemidiaphragm. There is also a small loculated hydropneumothorax without any significant fluid a combination of the ultrasound. Clinically the patient is doing well on room air oxygen. 2 COPD at baseline with an FEV1 of 70% of predicted preoperatively 3 left hemidiaphragmatic elevation following a left upper lobe resection. This could be related to volume loss/lobectomy. At the same and the patient has some gastric distention, a symptomatically at this stage. 4 abdominal distention and discomfort secondary to suspected gastroparesis/ ileus. The patient had an EGD and the patient has no evidence of any mechanical obstruction or gastric outlet obstruction. 5 hypothyroidism 6 diabetes mellitus 7 history of ITP 8 history of smoking currently in remission 9 coronary artery disease with previous history of coronary intervention and stenting Plan Continue using incentive spirometer. Ultrasound chest was noted. No sizable effusion. Repeat chest x-ray in the morning. Ambulate. Advance diet. We'll continue to follow
[2017-09-15 11:54] LABS: Glucose,Whole Blood 138 mg/dL (75-99)
[2017-09-15] MEDS: IPRATROPIUM-ALBUTEROL 3 ML NEB IH SCH ×4 (11:55→19:06)
[2017-09-15] MEDS: BUDESONIDE 1 MG/2 ML NEBU INHALATION SCH ×2 (12:18→19:06)
[2017-09-15] MEDS: FORMOTEROL FUMARATE 20 MCG/2 ML NEBU INHALATION SCH ×2 (12:18→19:06)
[2017-09-15] MEDS: INSULIN DETEMIR 100 UNIT/ML 10 ML VIAL SQ SCH (12:45)
[2017-09-15 17:03] LABS: Glucose,Whole Blood 213 mg/dL (75-99)
--- NOTE | 2017-09-15 17:07 | P.GSCN ---
History of Present Illness Consult date: 09/15/17 Reason for Consult: Urinary retention Requesting physician: Romeo Sorto History of present illness: The patient is a 58-year-old woman who has previously undergone a hysterectomy, and 2 subsequent cystocele repairs by Dr. Dexter. She has seen Dr. Dixon in the remote past. She is currently hospitalized after having undergone a left upper lobe lobectomy, revealing squamous cell carcinoma of the lung. She has been found to empty her bladder incompletely postoperatively, and I'm consulted for this reason. She states that she experiences intermittent voiding difficulties at home, for which she takes a "bladder prolapse". Among her current medications as Ditropan XL, and I suspect this is what she is referring to. Prior to this hospitalization, she reports urinary frequency but denies incontinence. She reports occasional dysuria but denies gross hematuria. On September 12, bladder scan showed greater than 9 99 mL. Earlier today, she voided 200 mL and the subsequent postvoid residual was 100 mL. Review of Systems - Constitutional Denies fever - Gastrointestinal Denies nausea - Genitourinary Genitourinary: Reports as per HPI Past Medical History Past Medical History: Diabetes Mellitus, Fibromyalgia, GERD/Reflux, Myocardial Infarction ([place]) Additional Past Medical History / Comment(s): Idiopathic thrombocytopenia purpura, IBS, diverticulitis, hiatal hernia, 2 herniated discs-L3/L4, Restless Leg Syndrome, gastritis, superficial gastric ulcers. nodule on lt lung-Cancer Stg 1 Last Myocardial Infarction Date:: 01/2017 History of Any Multi-Drug Resistant Organisms: None Reported Past Surgical History: Adenoidectomy, Bladder Surgery, Bowel Resection, Cholecystectomy, Heart Catheterization With Stent, Hernia Repair, Hysterectomy, Tonsillectomy Additional Past Surgical History / Comment(s): BLADDER SUSPENSION x 2, breast biopsy x3, bowel resection due to rupture. Past Anesthesia/Blood Transfusion Reactions: No Reported Reaction Additional Past Anesthesia/Blood Transfusion Reaction / Comm: Pt received blood in 2005 due to ITP without reaction. Date of Last Stent Placement:: 01/2017 Past Psychological History: Anxiety Additional Psychological History / Comment(s): . Smoking Status: Former smoker Past Alcohol Use History: None Reported Additional Past Alcohol Use History / Comment(s): STARTED SMOKING AT AGE 18- SMOKES 1PPD Past Drug Use History: None Reported - Past Family History Mother Family Medical History: Cancer, Diabetes Mellitus Additional Family Medical History / Comment(s): Father had a defibrillator. He of heart dx in his 80's Father Family Medical History: Diabetes Mellitus Additional Family Medical History / Comment(s): HEART DISEASE Medications and Allergies Home Medications Medication Instructions Recorded Confirmed Type Loperamide [Imodium] 2 mg PO Q8HR PRN 04/04/14 09/06/17 History Insulin Aspart [NovoLOG Flexpen] See Protocol SQ PC-TID PRN 08/02/15 09/06/17 History ALPRAZolam 0.25 mg PO BID PRN 11/03/15 09/06/17 History Insulin Detemir [Levemir] 30 unit SQ DAILY@1200 11/09/15 09/06/17 History Solifenacin Succinate [Vesicare] 10 mg PO HS 04/12/16 09/06/17 History rOPINIRole HCL [Requip] 0.25 mg PO HS 04/12/16 09/06/17 History HYDROcodone/APAP 7.5-325MG [[place] 1 tab PO Q4H PRN 01/14/17 09/06/17 History 7.5-325] Pantoprazole [Protonix] 40 mg PO QAM PRN 01/14/17 09/06/17 History Aspirin 81 mg PO DAILY chew 01/17/17 09/06/17 Rx Metoprolol Tartrate [Lopressor] 25 mg PO BID #60 tab 01/17/17 09/06/17 Rx Nitroglycerin Sl Tabs [Nitrostat] 0.4 mg SUBLINGUAL Q5M PRN #21 tab 01/17/17 Rx Clopidogrel Bisulfate [Plavix] 75 mg PO DAILY 06/26/17 09/06/17 History Atorvastatin [Lipitor] 80 mg PO DAILY 08/31/17 09/06/17 History Budesonide-Formot 160-4.5 Mcg 2 puff INHALATION RT-BID 08/31/17 09/06/17 History [Symbicort 160-4.5 Mcg Inhaler] Ipratropium/Albuterol Sulfate 1 puff INHALATION RT-QID 08/31/17 09/06/17 History [Combivent Respimat Inhaler] Lisinopril [Prinivil] 5 mg PO BID 08/31/17 09/06/17 History Naproxen [Naprosyn] 500 mg PO BID PRN 08/31/17 09/06/17 History Allergies Allergy/AdvReac Type Severity Reaction Status Date / Time No Known Allergies Allergy Verified 09/06/17 16:27 Surgical - Exam Vital Signs Temp Pulse Resp BP Pulse Ox 98.4 F 96 16 140/68 96 09/06/17 10:46 09/06/17 10:46 09/06/17 10:46 09/06/17 10:46 09/06/17 10:46 - General well developed, well nourished, no distress - Abdomen Abdomen: soft, non tender, no masses, no distended - Genitourinary normal external genitalia, normal perineum, other (Grade 1 cystocele, no rectocele) - Psychiatric oriented to time, oriented to person, oriented to place, speech is normal, memory intact Results - Labs 09/15/17 09:56 09/15/17 09:56 Abnormal Lab Results - Last 24 Hours (Table) 09/14/17 09/14/17 09/15/17 Range/Units 17:01 21:01 05:56 Neutrophils # (1.3-7.7) k/uL Glucose (74-99) mg/dL POC Glucose (mg/dL) 166 H 70 L 59 L (75-99) mg/dL AST (14-36) U/L ALT (9-52) U/L Alkaline Phosphatase (38-126) U/L Total Protein (6.3-8.2) g/dL Albumin (3.5-5.0) g/dL 09/15/17 09/15/17 09/15/17 Range/Units 06:14 06:30 09:56 Neutrophils # 8.3 H (1.3-7.7) k/uL Glucose (74-99) mg/dL POC Glucose (mg/dL) 60 L 104 H (75-99) mg/dL AST (14-36) U/L ALT (9-52) U/L Alkaline Phosphatase (38-126) U/L Total Protein (6.3-8.2) g/dL Albumin (3.5-5.0) g/dL 09/15/17 09/15/17 Range/Units 09:56 11:30 Neutrophils # (1.3-7.7) k/uL Glucose 149 H (74-99) mg/dL POC Glucose (mg/dL) 138 H (75-99) mg/dL AST 62 H (14-36) U/L ALT 64 H (9-52) U/L Alkaline Phosphatase 324 H (38-126) U/L Total Protein 5.4 L (6.3-8.2) g/dL Albumin 3.0 L (3.5-5.0) g/dL Microbiology - Last 24 Hours (Table) 09/13/17 18:12 Urine Culture - Final Urine,Catheterized Rosa Maria albicans Diabetes panel 09/15/17 Range/Units 09:56 Sodium 138 (137-145) mmol/L Potassium 4.7 (3.5-5.1) mmol/L Chloride 100 (98-107) mmol/L Carbon Dioxide 26 (22-30) mmol/L BUN 9 (7-17) mg/dL Creatinine 0.62 (0.52-1.04) mg/dL Glucose 149 H (74-99) mg/dL Calcium 9.3 (8.4-10.2) mg/dL AST 62 H (14-36) U/L ALT 64 H (9-52) U/L Alkaline Phosphatase 324 H (38-126) U/L Total Protein 5.4 L (6.3-8.2) g/dL Albumin 3.0 L (3.5-5.0) g/dL Calcium panel 09/15/17 Range/Units 09:56 Calcium 9.3 (8.4-10.2) mg/dL Albumin 3.0 L (3.5-5.0) g/dL Pituitary panel 09/15/17 Range/Units 09:56 Sodium 138 (137-145) mmol/L Potassium 4.7 (3.5-5.1) mmol/L Chloride 100 (98-107) mmol/L Carbon Dioxide 26 (22-30) mmol/L BUN 9 (7-17) mg/dL Creatinine 0.62 (0.52-1.04) mg/dL Glucose 149 H (74-99) mg/dL Calcium 9.3 (8.4-10.2) mg/dL Adrenal panel 09/15/17 Range/Units 09:56 Sodium 138 (137-145) mmol/L Potassium 4.7 (3.5-5.1) mmol/L Chloride 100 (98-107) mmol/L Carbon Dioxide 26 (22-30) mmol/L BUN 9 (7-17) mg/dL Creatinine 0.62 (0.52-1.04) mg/dL Glucose 149 H (74-99) mg/dL Calcium 9.3 (8.4-10.2) mg/dL Total Bilirubin 0.5 (0.2-1.3) mg/dL AST 62 H (14-36) U/L ALT 64 H (9-52) U/L Alkaline Phosphatase 324 H (38-126) U/L Total Protein 5.4 L (6.3-8.2) g/dL Albumin 3.0 L (3.5-5.0) g/dL Assessment and Plan (1) Urinary retention with incomplete bladder emptying Current Visit: Yes Status: Acute Code(s): R33.9 - RETENTION OF URINE, UNSPECIFIED SNOMED Code(s): 091548638 Plan: Mrs. Dow underwent a left upper lobectomy and developed postoperative urinary retention. She is now voiding, but emptying her bladder incompletely. She is currently receiving Ditropan XL, which I have taken the liberty of discontinuing as this can impair bladder emptying. Postvoid residuals should continue to be monitored. I explained to her that patients with long-standing diabetes mellitus can develop atonic bladders, in which case she may require long-term intermittent self-catheterization. I am hopeful this will not be required, as she is quite resistant to this.
[2017-09-15] MEDS: ALPRAZolam 0.25 MG TAB PO PRN (20:06)
[2017-09-15 20:55] LABS: Glucose,Whole Blood 82 mg/dL (75-99)
[2017-09-15] MEDS: INSULIN NPH 300 UNIT/3 ML VIAL SQ SCH (21:02)
[2017-09-15] MEDS ORDERED: SODIUM CHLORIDE 0.9% 250 ML IV ONE (21:45)
[2017-09-16] MEDS: METOCLOPRAMIDE 5 MG/ML 2 ML VIAL IVP SCH ×5 (00:30→23:22)
[2017-09-16] MEDS: HEPARIN SODIUM,PORCINE 5,000 UNIT/ML 1 ML VIAL SQ SCH ×4 (00:30→23:22)
[2017-09-16 02:22] LABS: Glucose,Whole Blood 73 mg/dL (75-99)
[2017-09-16] MEDS: ALPRAZolam 0.25 MG TAB PO PRN ×2 (03:46→17:11)
[2017-09-16] MEDS: ACETAMINOPHEN TAB 325 MG TAB PO PRN ×2 (03:46→16:51)
[2017-09-16 06:26] LABS: Glucose,Whole Blood 72 mg/dL (75-99)
[2017-09-16] MEDS: INSULIN ASPART 100 UNIT/ML 1 ML 10 ML VIAL SQ SCH ×5 (06:26→21:34)
[2017-09-16 07:05] LABS: Basophils % (A) 0 %; Eosinophils % (A) 0 %; HCT 35.8 % (34.0-46.0); HGB 11.3 gm/dL (11.4-16.0); Lymphocytes # (A) 1.1 k/uL (1.0-4.8); Lymphocytes % (A) 10 %; MCHC 31.7 g/dL (31.0-37.0); MCV 88.3 fL (80.0-100.0); Mean Platelet Volume 7.4; Monocytes # (A) 0.8 k/uL (0-1.0); Monocytes % (A) 7 %; Neutrophils # (A) 8.7 k/uL (1.3-7.7); Neutrophils % (A) 80 %; Platelet Count 334 k/uL (150-450); RBC 4.05 m/uL (3.80-5.40); WBC 10.9 k/uL (3.8-10.6)
[2017-09-16 07:24] LABS: Anion Gap 12 mmol/L; Blood Urea Nitrogen 10 mg/dL (7-17); Calcium 8.4 mg/dL (8.4-10.2); Carbon Dioxide 27 mmol/L (22-30); Chloride 100 mmol/L (98-107); Glucose 60 mg/dL (74-99); Potassium 4.4 mmol/L (3.5-5.1); Sodium 139 mmol/L (137-145)
--- NOTE | 2017-09-16 07:34 | XR ---
EXAMINATION TYPE: XR chest 2V DATE OF EXAM: 09/16/2017 COMPARISON: 09/15/2017 HISTORY: 66-year-old female post op left upper lobectomy TECHNIQUE: Frontal and lateral views FINDINGS: Left hemithoracic volume loss redemonstrated with elevation of the left hemidiaphragm and leftward ca rdiomediastinal shift. Meniscus redemonstrated at the upper left hemithorax suggesting underlying ple ural effusion slightly increased in the interval. The minimal residual aerated lung remains at the ap ex. Right lung and pleural space appear clear. IMPRESSION: Continued marked left hemithoracic volume loss with shift of the heart to the left side of the chest and elevation of the left hemidiaphragm. Only a small portion of the left apex remains aerated and th ere is redemonstrated meniscus in the upper thorax suggesting underlying pleural fluid. The meniscus is located slightly higher than on prior exam.
[2017-09-16] MEDS: BUDESONIDE 1 MG/2 ML NEBU INHALATION SCH ×2 (08:00→19:19)
[2017-09-16] MEDS: FORMOTEROL FUMARATE 20 MCG/2 ML NEBU INHALATION SCH ×2 (08:00→19:19)
[2017-09-16] MEDS: IPRATROPIUM-ALBUTEROL 3 ML NEB IH SCH ×4 (08:00→19:20)
[2017-09-16] MEDS: INSULN ASP PRT/INSULIN ASPART 100 UNIT/ML 10 ML VIAL SQ SCH (08:35)
[2017-09-16] MEDS: METOPROLOL TARTRATE 25 MG TAB PO SCH ×2 (08:36→20:57)
[2017-09-16] MEDS: ATORVASTATIN 80 MG TAB PO SCH (08:36)
[2017-09-16] MEDS: ASPIRIN 81 MG PO SCH (08:36)
[2017-09-16] MEDS: LISINOPRIL 5 MG TAB PO SCH ×2 (08:36→20:57)
[2017-09-16] MEDS: CLOPIDOGREL 75 MG TAB PO SCH (08:36)
[2017-09-16] MEDS: DOCUSATE 100 MG CAP PO SCH (08:37)
[2017-09-16] MEDS: PANTOPRAZOLE 40 MG/10 ML VIAL IVP SCH (08:37)
[2017-09-16] MEDS: traMADol 50 MG TAB PO SCH ×4 (08:41→21:33)
--- NOTE | 2017-09-16 09:28 | P.PN ---
Progress Note - Text Progress Note Date: 09/16/17 The patient's postvoid residuals continue to be 400-500 mL. I had a discussion with the patient regarding her incomplete bladder emptying. I suggested that the best option is intermittent self-catheterization, but she is very reluctant to even consider this. We discussed the potential risks associated with incomplete bladder emptying. These include increased urinary frequency, incontinence, hydronephrosis, and recurrent UTIs. A recent computed tomography scan showed no evidence of hydronephrosis. I have ordered tamsulosin, and postvoid residuals will continue to be monitored. However, she will be straight catheterized only if the postvoid residuals exceeded 500 mL, or if she feels symptomatic.
[2017-09-16] MEDS ORDERED: NA PHOS,M-B/NA PHOS,DI-BA 133 ML ENEMA RECTAL STA (09:45)
--- NOTE | 2017-09-16 10:16 | CT ---
EXAMINATION TYPE: CT chest wo con DATE OF EXAM: 09/16/2017 COMPARISON: 06/26/2017 HISTORY: 66-year-old female postop left upper lobectomy, difficulty breathing TECHNIQUE: Contiguous axial scanning of the chest without IV contrast. Coronal and sagittal reconstru ctions performed. CT DLP: 178.2 mGycm Automated exposure control for dose reduction was used. FINDINGS: Heart normal size without pericardial effusion. Coronary vessel calcifications are present and unrema rkable for coronary disease. Moderate atherosclerotic arch calcifications with conventional arch vessel branching anatomy. There appears to be a mildly enlarged 1.1 cm left tracheobronchial angle lymph node which is probably reactive. Small pneumothorax seen at the medial left apex and also anteriorly, proximally 5% by volume. Small-t o-moderate pleural effusion present and appears to be largely loculated anteriorly at the upper to mi d lung level. This constitutes a hydropneumothorax. Postsurgical changes at the left hilum. There is truncation of the distal left mainstem bronchus and extensive consolidation throughout the residual left lung status post left upper lobectomy. There is complete opacification in the mid and lower left hemithorax with recent ultrasound showing only a tra ce effusion at the left base. Findings suggest consolidated and collapsed lung. Volume loss with left [place] shift of the heart and elevation of the left hemidiaphragm. Moderate centrilobular emphysema. Small hiatal hernia. Visualized upper abdomen shows a 4.1 cm cyst lateral left kidney and a stable 1. 9 cm left adrenal nodule, probable adrenal adenoma. Bones: No osseous destructive process. Scattered subcutaneous emphysema along the left hemithorax. IMPRESSION: 1. REPORTED LEFT UPPER LOBECTOMY. 2. THERE IS A LEFT-SIDED HYDROPNEUMOTHORAX WITH SMALL, APPROXIMATELY 5% PNEUMOTHORAX AT THE APEX AND ANTERIORLY. THERE IS A FUSIL-RA-EUWETBTA EFFUSION PRIMARILY LOCULATED ANTERIORLY AT THE LEFT MID LUNG AND ALSO WITH A MENISCUS AT THE APEX. 3. CUT OFF OF THE DISTAL LEFT MAINSTEM BRONCHUS WITH SEVERE CONSOLIDATION AND VOLUME LOSS THROUGHOUT THE REMAINING LEFT LUNG. POSSIBLE MUCOUS PLUGGING OR IATROGENIC ETIOLOGY. CONSIDER THE UTILITY OF END OBRONCHIAL EVALUATION. 4. COPD WITH MODERATE EMPHYSEMA.
[2017-09-16] MEDS: FLUCONAZOLE 100 MG TAB PO SCH (10:48)
[2017-09-16] MEDS: TAMSULOSIN 0.4 MG CAP.ER.24H PO SCH (10:48)
--- NOTE | 2017-09-16 11:05 | P.PN ---
Subjective Progress Note Date: 09/16/17 Principal diagnosis: Left upper lobe mass. Medical history of coronary artery disease with recent stenting of the left anterior descending coronary artery in December 2016, perforated gastric ulcer with exploratory laparotomy, ITP, hypothyroid, diabetes mellitus type 2, previous tobacco dependence. POD #10 robotic assisted thoracoscopic left upper lobectomy with mediastinal lymph node dissection and fiberoptic bronchoscopy with clearance of mucous plug. POD #[address] Phillips. Gastroparesis, an unexpected but potential outcome given the patient's long- standing history of diabetes. Postoperative left pleural effusion, an unexpected but potential outcome of surgery. postoperative urine retention with incomplete bladder emptying, history of long- standing diabetes mellitus. The patient is currently laying in bed in no acute distress. She denies any complaints of pain or shortness of breath at this time. She reports that she has been ambulating in the hallway [facility] twice yesterday with minimal assistance. She reports that her bowels have not moved since Sunday, . Post void residual from yesterday and last eveningshowed greater than 400 mL of urine. A straight catheterization was performed by the bedside registered nurse. Objective - Vital Signs Vital signs: Vital Signs Temp 97.0 F L 09/16/17 03:42 Pulse 99 09/16/17 08:20 Resp 18 09/16/17 03:42 BP 105/53 09/16/17 03:42 Pulse Ox 95 09/16/17 03:42 Intake & Output 09/15/17 09/16/17 09/16/17 18:59 06:59 18:59 Intake Total 310 490 120 Output Total 200 1375 Balance 110 -885 120 Weight 57.3 kg Intake: Intake, IV Titration 250 Amount Sodium Chloride 0.9% 250 250 ml @ 999 mls/hr IV .Q16M ONE Rx#:[id number] Oral 310 240 120 Output: Urine 200 1375 Straight 300 Other: Voiding Method Toilet Toilet # Voids 1 # Bowel Movements 0 - Constitutional General appearance: Present: cooperative, no acute distress - Respiratory Details: Lung sounds diminished to her left lobes, essentially clear to her right lobes. Respirations are symmetrical and nonlabored. Oxygen saturation are 95% on room air. She is achieving 750-1000 mL on her incentive spirometry. Nonproductive cough. - Cardiovascular Details: regular rhythm and tachycardic rate. S1 and S2 present, positive systolic murmur /. Remote telemetry showing sinus tachycardia heart rate 107. No edema present. Knee-high VANDANA hose and sequential compression devices in place to bilateral lower extremities. - Gastrointestinal Gastrointestinal Comment(s): abdomen is soft, nontender and nondistended. Hypoactive bowel sounds all 4 abdominal quadrants. Tolerating oral intake. Last bowel movement 09/14/2017. - Genitourinary Genitourinary Comment(s): Voiding clear niki urine. Straight catheterization 2 yesterday. Remains to have some urinary retention. Last straight cath was at 6 AM this morning with 475 mL evacuated. - Integumentary Integumentary Comment(s): Skin is warm and dry. No clubbing or cyanosis present. No rash or abnormal pigmentation present. Left lateral chest incisions clean dry and approximated. No drainage or redness present. - Neurologic Neurologic: Present: CNII-XII intact - Musculoskeletal Musculoskeletal: Present: gait normal, strength equal bilaterally - Psychiatric Psychiatric: Present: A&O x's 3, appropriate affect, intact judgment & insight - Allied health notes Allied health notes reviewed: nursing - Labs CBC & Chem 7: 09/16/17 06:08 09/16/17 06:08 Labs: Abnormal Lab Results - Last 24 Hours (Table) 09/15/17 09/15/17 09/16/17 Range/Units 11:30 16:39 02:20 WBC (3.8-10.6) k/uL Hgb (11.4-16.0) gm/dL Neutrophils # (1.3-7.7) k/uL Glucose (74-99) mg/dL POC Glucose (mg/dL) 138 H 213 H 73 L (75-99) mg/dL 09/16/17 09/16/17 09/16/17 Range/Units 06:08 06:08 06:25 WBC 10.9 H (3.8-10.6) k/uL Hgb 11.3 L (11.4-16.0) gm/dL Neutrophils # 8.7 H (1.3-7.7) k/uL Glucose 60 L (74-99) mg/dL POC Glucose (mg/dL) 72 L (75-99) mg/dL - Imaging and Cardiology Chest x-ray: report reviewed, image reviewed CT scan - chest: report reviewed, image reviewed Assessment and Plan (1) History of ITP Current Visit: Yes Status: Acute Code(s): Z86.2 - PRSNL HISTORY OF DIS OF THE BLD/BLD-FORM ORG/IMMUN [facility] SNOMED Code(s): 908238525 (2) History of gastric ulcer Current Visit: Yes Status: Acute Code(s): Z87.19 - PERSONAL HISTORY OF OTHER DISEASES OF THE DIGESTIVE SYSTEM SNOMED Code(s): 609916652 (3) History of myocardial infarction Current Visit: Yes Status: Acute Code(s): I25.2 - OLD MYOCARDIAL INFARCTION SNOMED Code(s): 453865829 (4) Tobacco dependence in remission Current Visit: Yes Status: Acute Code(s): F17.201 - NICOTINE DEPENDENCE, UNSPECIFIED, IN REMISSION SNOMED Code(s): 331115568 (5) Mass of upper lobe of left lung Current Visit: Yes Status: Acute Code(s): R91.8 - OTHER NONSPECIFIC ABNORMAL FINDING OF LUNG FIELD SNOMED Code(s): 558634398 (6) Coronary artery disease Current Visit: Yes Status: Chronic Code(s): I25.10 - ATHSCL HEART DISEASE OF [place] CORONARY ARTERY W/O ANG PCTRS SNOMED Code(s): 31186359 (7) Diabetes mellitus Current Visit: Yes Status: Chronic Code(s): E11.9 - TYPE 2 DIABETES MELLITUS WITHOUT COMPLICATIONS SNOMED Code(s): 54805570 (8) History of heart artery stent Current Visit: Yes Status: Chronic Code(s): Z95.5 - PRESENCE OF CORONARY ANGIOPLASTY IMPLANT AND GRAFT SNOMED Code(s): 898815925 (9) Hypothyroid Current Visit: Yes Status: Chronic Code(s): E03.9 - HYPOTHYROIDISM, UNSPECIFIED SNOMED Code(s): 70787869 (10) Gastroparesis due to DM Current Visit: Yes Status: Acute Code(s): E11.43 - TYPE 2 DIABETES W DIABETIC AUTONOMIC (POLY)NEUROPATHY; K31.84 - GASTROPARESIS SNOMED Code(s): 329311356 (11) Urinary retention with incomplete bladder emptying Current Visit: Yes Status: Acute Code(s): R33.9 - RETENTION OF URINE, UNSPECIFIED SNOMED Code(s): 829152816 Plan: 1. Continue stool softeners and Reglan for gastroparesis. Fleets enema 1 today. 2. Encourage incentive spirometry use 10 times every hour. 3. Reinforced the importance of continued smoking cessation 4. Increase activity, ambulate in hallway, PT/OT following. 5. Bronchodilators per pulmonology. 6. Continue pain control with ordered medication regimen. 7. GI/DVT prophylaxis. 8. Continue bladder scan every 6 hours for post void residual. May straight cath for greater than 500 mL per urology. 9. GI and DVT prophylaxis. 10. We will order an computed tomography scan of her chest today. 11. Diflucan 100 mg by mouth daily 5 days started for Rosa Maria in her urine. 12. Zosyn 3.375 g every 8 hours started by pulmonary. 13. Urology consult recommendations noted and appreciated. 14. Blood sugar management per primary care services. 15. More recommendations to follow based on the patient's clinical course. Time with Patient: Greater than 30
[2017-09-16] MEDS: PIPERACILLIN-TAZOBACTAM 3.375 GM in DEXTROSE/WATER 1 50ML.BAG IVPB SCH ×3 (11:35→23:21)
[2017-09-16 12:20] LABS: Glucose,Whole Blood 215 mg/dL (75-99)
[2017-09-16] MEDS: INSULIN DETEMIR 100 UNIT/ML 10 ML VIAL SQ SCH (12:22)
--- NOTE | 2017-09-16 13:48 | P.PN ---
Subjective Progress Note Date: 09/16/17 On today's evaluation of 09/15/2017, I'm seeing this patient for a follow-up. The patient is looking well. She is ambulating. Chest x-ray from today shows a small air-fluid level within the left upper lobe. I'm aware that the patient had a small loculated pneumothorax and on today's chest x-ray there is a small hydropneumothorax. I was asked to consider a thoracentesis on this patient. Ultrasound of the left chest showed no significant pleural fluid the cannulation and based on that I'm going to wait forthat the patient is doing well and the patient is on room air oxygen. She is tolerating her diet. She is ambulating. No NG tube insertion. No abdominal distention. No fever or chills. Surgical wound site is clean. No other significant events overnight and will continue to follow. 1 she is having issues with urinary retention and the patient be asked to be seen by urology. The urinary catheter was taken out yesterday and we are monitoring the post void residual. On 09 16,008 units in this patient for a follow-up. The chest x-ray shows further opacification of the left lung along with a small air-fluid levels in the left apical area. Left hemidiaphragm remains elevated and the stomach is less distended. Based on all this, CAT scan of the chest was requested that was done without contrast and the patient has a small pneumothorax in the left apex estimated to be less than 5% of the total lung volume. There is a small to moderate-sized pleural effusion which is loculated anteriorly and posteriorly. There is obviously an area of hydropneumothorax. In addition, the left lower lobe was quite opacified and there is extensive consolidation which raises the concern for pneumonia within the left lung. There is obvious volume loss and shift at least on structures of the left. Despite all this, the patient remains on room air. No significant fever. No chills. No nausea or vomiting. No abdominal pain. No other complaints otherwise for now. Objective - Vital Signs Vital signs: Vital Signs Temp 97.0 F L 09/16/17 03:42 Pulse 110 H 09/16/17 12:00 Resp 19 09/16/17 12:00 BP 99/53 09/16/17 12:00 Pulse Ox 94 L 09/16/17 12:00 Intake & Output 09/15/17 09/16/17 09/16/17 18:59 06:59 18:59 Intake Total 310 490 240 Output Total 200 1375 Balance 110 -885 240 Weight 57.3 kg Intake: Intake, IV Titration 250 Amount Sodium Chloride 0.9% 250 250 ml @ 999 mls/hr IV .Q16M ONE Rx#:[id number] Oral 310 240 240 Output: Urine 200 1375 Straight 300 Other: Voiding Method Toilet Toilet # Voids 1 1 # Bowel Movements 0 0 - Exam Gen. appearance the patient is calm comfortable likely distress Head exam was generally normal. There was no scleral icterus or corneal arcus. Mucous membranes were moist. Neck was supple and without jugular venous distension, thyromegaly, or carotid bruits. Carotids were easily palpable bilaterally. There was no adenopathy. Lungs sounds are diminished on the left compared to the right. The patient also has a subcutaneous emphysema on the left chest extending to the flank area. Breath sounds are diminished in the left compared to the right. Cardiac exam revealed the PMI to be normally situated and sized. The rhythm was regular and no extrasystoles were noted during several minutes of auscultation. The first and second heart sounds were normal and physiologic splitting of the second heart sound was noted. There were no murmurs, rubs, clicks, or gallops. Abdominal exam revealed normal bowel sounds. The abdomen was soft, non-tender, and without masses, organomegaly, or appreciable enlargement of the abdominal aorta. Examination of the extremities revealed easily palpable radial, femoral and pedal pulses. There was no cyanosis, clubbing or edema. Examination of the skin revealed no evidence of significant rashes, suspicious appearing nevi or other concerning lesions. Neurologically the patient is awake and alert and there is no focal neurological deficits. - Labs CBC & Chem 7: 09/16/17 06:08 09/16/17 06:08 Labs: Abnormal Lab Results - Last 24 Hours (Table) 09/15/17 09/16/17 09/16/17 Range/Units 16:39 02:20 06:08 WBC 10.9 H (3.8-10.6) k/uL Hgb 11.3 L (11.4-16.0) gm/dL Neutrophils # 8.7 H (1.3-7.7) k/uL Glucose (74-99) mg/dL POC Glucose (mg/dL) 213 H 73 L (75-99) mg/dL 09/16/17 09/16/17 09/16/17 Range/Units 06:08 06:25 11:42 WBC (3.8-10.6) k/uL Hgb (11.4-16.0) gm/dL Neutrophils # (1.3-7.7) k/uL Glucose 60 L (74-99) mg/dL POC Glucose (mg/dL) 72 L 215 H (75-99) mg/dL Assessment and Plan Plan: Assessment 1 robotic-assisted thoracoscopic left upper lobe lobectomy with mediastinal lymph node dissection for a left upper lobe mass. The patient is postop day # 9. 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 The left hemithorax shows some volume loss and elevation of the left hemidiaphragm. In addition, there is worsening of the consolidation of the left lung or the past 24-48 hours which are listed raises the concern for an underlying pneumonia. The patient is afebrile. No worsening and oxygenation. CAT scan of the chest also showed loculated anterior and posterior pleural effusions which are small at this point in time. The pronouncement finding is the consolidation of the left lower lobe. 2 COPD at baseline with an FEV1 of 70% of predicted preoperatively 3 left hemidiaphragmatic elevation following a left upper lobe resection. This could be related to volume loss/lobectomy. At the same and the patient has some gastric distention, a symptomatically at this stage. 4 abdominal distention and discomfort secondary to suspected gastroparesis/ ileus. The patient had an EGD and the patient has no evidence of any mechanical obstruction or gastric outlet obstruction. 5 hypothyroidism 6 diabetes mellitus 7 history of ITP, normal platelet count 8 history of smoking currently in remission 9 coronary artery disease with previous history of coronary intervention and stenting Plan Continue using incentive spirometer. Discussed the case with thoracic surgeon. We'll cover this patient with IV Zosyn. Repeat chest x-ray in the morning. May consider bronchoscopy with lavage and airway inspection if no improvement upon subsequent chest x-rays. Thoracentesis will give limited benefit 90 the pleural effusion is small.
[2017-09-16] MEDS ORDERED: guaiFENesin SYRUP 100MG/5ML 200 MG/10 ML CUP PO PRN (16:52)
[2017-09-16 17:21] LABS: Glucose,Whole Blood 164 mg/dL (75-99)
--- NOTE | 2017-09-16 17:52 | P.CONS ---
History of Present Illness - History of Present Illness This is a pleasant 66 years old female with past medical history of diabetes mellitus, fibromyalgia, GERD, idiopathic thrombocytopenia purpura, IBS, diverticulitis, herniated disc at L3-L4, restless leg syndrome lung cancer stage I with left upper lobe mass. Patient originally came in with shortness of breath for COPD exacerbation suspicion she got CAT scan which found to have left upper lobe mass last surgery was small but deep in the lung parenchyma. Lobectomy was recommended by the surgeon which the patient had on 09/06/2017. Patient had CT of the abdomen and pelvis on 09/12/2017 showing the stomach is markedly distended and rectal wall. GI team were consulted and recommended NG tube followed by EGD: No mechanical obstruction of the stomach outlet and patient was diagnosed for possible gastroparesis. Also they recommended outpatient colonoscopy. Chest x-ray from today showed left lung opacification with elevation of the left hemidiaphragm. CT of the chest without contrast: Showed hydropneumothorax with 5% pneumothorax of the appendix and small to moderate pleural effusion, and possible mucous plug of the left main bronchus with severe consolidation and COPD Review of Systems CONSTITUTIONAL: No fever, no malaise, no fatigue. HEENT: No recent visual problems or hearing problems. Denied any sore throat. CARDIOVASCULAR: No orthopnea, PND, no palpitations, no syncope. PULMONARY: No shortness of breath, no cough, no hemoptysis. GASTROINTESTINAL: No diarrhea, no nausea, no vomiting, no abdominal pain. Normoactive bowel sounds. NEUROLOGICAL: No headaches, no weakness, no numbness. HEMATOLOGICAL: Denies any bleeding or petechiae. GENITOURINARY: Denies any burning micturition, frequency, or urgency. MUSCULOSKELETAL/RHEUMATOLOGICAL: Denies any joint pain, swelling, or any muscle pain. ENDOCRINE: Denies any polyuria or polydipsia. Past Medical History Past Medical History: Diabetes Mellitus, Fibromyalgia, GERD/Reflux, Myocardial Infarction (MS) Additional Past Medical History / Comment(s): Idiopathic thrombocytopenia purpura, IBS, diverticulitis, hiatal hernia, 2 herniated discs-L3/L4, Restless Leg Syndrome, gastritis, superficial gastric ulcers. nodule on lt lung-Cancer Stg 1 Last Myocardial Infarction Date:: 01/2017 History of Any Multi-Drug Resistant Organisms: None Reported Past Surgical History: Adenoidectomy, Bladder Surgery, Bowel Resection, Cholecystectomy, Heart Catheterization With Stent, Hernia Repair, Hysterectomy, Tonsillectomy Additional Past Surgical History / Comment(s): BLADDER SUSPENSION x 2, breast biopsy x3, bowel resection due to rupture. Past Anesthesia/Blood Transfusion Reactions: No Reported Reaction Additional Past Anesthesia/Blood Transfusion Reaction / Comm: Pt received blood in 2005 due to ITP without reaction. Date of Last Stent Placement:: 01/2017 Past Psychological History: Anxiety Additional Psychological History / Comment(s): . Smoking Status: Former smoker Past Alcohol Use History: None Reported Additional Past Alcohol Use History / Comment(s): STARTED SMOKING AT AGE 18- SMOKES 1PPD Past Drug Use History: None Reported - Past Family History Mother Family Medical History: Cancer, Diabetes Mellitus Additional Family Medical History / Comment(s): Father had a defibrillator. He of heart dx in his 80's Father Family Medical History: Diabetes Mellitus Additional Family Medical History / Comment(s): HEART DISEASE Medications and Allergies Home Medications Medication Instructions Recorded Confirmed Type Loperamide [Imodium] 2 mg PO Q8HR PRN 04/04/14 09/06/17 History Insulin Aspart [NovoLOG Flexpen] See Protocol SQ PC-TID PRN 08/02/15 09/06/17 History ALPRAZolam 0.25 mg PO BID PRN 11/03/15 09/06/17 History Insulin Detemir [Levemir] 30 unit SQ DAILY@1200 11/09/15 09/06/17 History Solifenacin Succinate [Vesicare] 10 mg PO HS 04/12/16 09/06/17 History rOPINIRole HCL [Requip] 0.25 mg PO HS 04/12/16 09/06/17 History HYDROcodone/APAP 7.5-325MG [Bledsoe 1 tab PO Q4H PRN 01/14/17 09/06/17 History 7.5-325] Pantoprazole [Protonix] 40 mg PO QAM PRN 01/14/17 09/06/17 History Aspirin 81 mg PO DAILY chew 01/17/17 09/06/17 Rx Metoprolol Tartrate [Lopressor] 25 mg PO BID #60 tab 01/17/17 09/06/17 Rx Nitroglycerin Sl Tabs [Nitrostat] 0.4 mg SUBLINGUAL Q5M PRN #21 tab 01/17/17 Rx Clopidogrel Bisulfate [Plavix] 75 mg PO DAILY 06/26/17 09/06/17 History Atorvastatin [Lipitor] 80 mg PO DAILY 08/31/17 09/06/17 History Budesonide-Formot 160-4.5 Mcg 2 puff INHALATION RT-BID 08/31/17 09/06/17 History [Symbicort 160-4.5 Mcg Inhaler] Ipratropium/Albuterol Sulfate 1 puff INHALATION RT-QID 08/31/17 09/06/17 History [Combivent Respimat Inhaler] Lisinopril [Prinivil] 5 mg PO BID 08/31/17 09/06/17 History Naproxen [Naprosyn] 500 mg PO BID PRN 08/31/17 09/06/17 History Allergies Allergy/AdvReac Type Severity Reaction Status Date / Time No Known Allergies Allergy Verified 09/06/17 16:27 Physical Exam Vitals: Vital Signs Temp Pulse Pulse Resp BP Pulse Ox 09/16/17 16:41 88 09/16/17 16:20 90 94 L 09/16/17 12:00 110 H 19 99/53 94 L 09/16/17 11:20 92 09/16/17 11:10 92 09/16/17 08:20 99 09/16/17 08:11 93 09/16/17 08:10 95 09/16/17 08:00 91 09/16/17 03:42 97.0 F L 87 18 105/53 95 09/16/17 03:40 87 18 09/16/17 00:00 98.5 F 104 H 18 114/57 94 L 09/15/17 20:00 99.3 F 138 H 18 148/62 92 L 09/15/17 19:32 100 09/15/17 19:20 102 H 09/15/17 19:19 104 H 09/15/17 19:06 108 H Intake and Output 09/16/17 09/16/17 09/16/17 06:59 14:59 22:59 Intake Total 490 240 Output Total 575 Balance -85 240 Intake: Intake, IV Titration 250 Amount Sodium Chloride 0.9% 250 250 ml @ 999 mls/hr IV .Q16M ONE Rx#:[id number] Oral 240 240 Output: Urine 575 Other: Voiding Method Toilet Toilet # Voids 1 # Bowel Movements 0 Weight 57.3 kg -GENERAL: The patient is alert and oriented x3, in respiratory distress due to cough and pain at the surgery site. No tachypnea. Well developed, well nourished. HEENT: Pupils are round and equally reacting to light. EOMI. No scleral icterus. No conjunctival pallor. Normocephalic, atraumatic. No pharyngeal erythema. No thyromegaly. CARDIOVASCULAR: S1 and S2 present. No murmurs, rubs, or gallops. -PULMONARY: Chest has some crackles on the left side with decreased breath sounds, no wheezing ABDOMEN: Soft, nontender, nondistended, normoactive bowel sounds. No palpable organomegaly. MUSCULOSKELETAL: No joint swelling or deformity. EXTREMITIES: No cyanosis, clubbing, or pedal edema. NEUROLOGICAL: Gross neurological examination did not reveal any focal deficits. SKIN: No rashes. Results CBC & Chem 7: 09/16/17 06:08 09/16/17 06:08 Labs: Abnormal Lab Results - Last 24 Hours (Table) 09/16/17 09/16/17 09/16/17 Range/Units 02:20 06:08 06:08 WBC 10.9 H (3.8-10.6) k/uL Hgb 11.3 L (11.4-16.0) gm/dL Neutrophils # 8.7 H (1.3-7.7) k/uL Glucose 60 L (74-99) mg/dL POC Glucose (mg/dL) 73 L (75-99) mg/dL 09/16/17 09/16/17 09/16/17 Range/Units 06:25 11:42 16:57 WBC (3.8-10.6) k/uL Hgb (11.4-16.0) gm/dL Neutrophils # (1.3-7.7) k/uL Glucose (74-99) mg/dL POC Glucose (mg/dL) 72 L 215 H 164 H (75-99) mg/dL Assessment and Plan Plan: -Left upper lobe mass. Lung cancer stage I. Status post lobectomy. Pulmonary/ intensive care unit specialist and thoracic surgeon on the case. -Possible left pneumonia. Chest x-ray shows consolidations of the left lung. Mild leukocytosis. Patient started on IV Zosyn and follow-up chest x-ray the morning with possible need for bronchoscopy as per pulmonary team with R following the case. Thoracic surgeon also follow seeing the patient -Gastroparesis. GI following the patient. Continue with conservative treatment. -Rectal wall thickening. GI consult is noted-and they recommended outpatient colonoscopy -Urinary retention and incomplete emptying. Neurologist evaluation is noted. ditropan was DC'd. This was placed for straight cath also -Possible UTI, UC showing Rosa Maria. continue with Zosyn and Diflucan -Abnormal liver function test, follow-up level -Diabetes mellitus continue with Levemir 20 units DVT prophylaxis on heparin GI prophylaxis Protonix Prognosis is guarded
[2017-09-16 21:17] LABS: Glucose,Whole Blood 232 mg/dL (75-99)
[2017-09-16] MEDS: INSULIN NPH 300 UNIT/3 ML VIAL SQ SCH (21:34)
[2017-09-16] MEDS: guaiFENesin SYRUP 100MG/5ML 200 MG/10 ML CUP PO PRN (23:38)
[2017-09-17 01:40] LABS: Glucose,Whole Blood 98 mg/dL (75-99)
[2017-09-17 05:58] LABS: Glucose,Whole Blood 105 mg/dL (75-99)
[2017-09-17] MEDS: METOCLOPRAMIDE 5 MG/ML 2 ML VIAL IVP SCH ×3 (05:59→18:13)
[2017-09-17] MEDS: INSULIN ASPART 100 UNIT/ML 1 ML 10 ML VIAL SQ SCH ×5 (06:03→21:24)
--- NOTE | 2017-09-17 07:19 | XR ---
EXAMINATION TYPE: XR chest 1V portable DATE OF EXAM: 09/17/2017 COMPARISON: Prior chest x-ray 09/16/2017 HISTORY: Post left upper lobectomy TECHNIQUE: Single frontal view of the chest is obtained. FINDINGS: Only minimal aerated lung noted at the apex on the left. There is volume loss in the left hemithorax. Near complete opacification of the left hemithorax again noted. There are overlying cardi ac leads. Heart is obscured. Right lung shows no pneumonia. IMPRESSION: Near-complete opacification left hemithorax, volume loss.
[2017-09-17] MEDS: INSULN ASP PRT/INSULIN ASPART 100 UNIT/ML 10 ML VIAL SQ SCH (07:25)
[2017-09-17 07:30] LABS: Basophils % (A) 0 %; Eosinophils # (A) 0.1 k/uL (0-0.7); Eosinophils % (A) 1 %; HCT 31.9 % (34.0-46.0); HGB 10.2 gm/dL (11.4-16.0); Lymphocytes % (A) 8 %; MCH 28.8 pg (25.0-35.0); MCHC 32.1 g/dL (31.0-37.0); MCV 89.6 fL (80.0-100.0); Mean Platelet Volume 7.3; Monocytes # (A) 0.8 k/uL (0-1.0); Monocytes % (A) 6 %; Neutrophils # (A) 10.4 k/uL (1.3-7.7); Neutrophils % (A) 83 %; Platelet Count 338 k/uL (150-450); RBC 3.56 m/uL (3.80-5.40); RDW 14.6 % (11.5-15.5); WBC 12.6 k/uL (3.8-10.6)
[2017-09-17 07:44] LABS: Anion Gap 13 mmol/L; Blood Urea Nitrogen 11 mg/dL (7-17); Calcium 8.3 mg/dL (8.4-10.2); Carbon Dioxide 25 mmol/L (22-30); Chloride 99 mmol/L (98-107); Glucose 87 mg/dL (74-99); Potassium 4.6 mmol/L (3.5-5.1); Sodium 137 mmol/L (137-145)
[2017-09-17] MEDS: HEPARIN SODIUM,PORCINE 5,000 UNIT/ML 1 ML VIAL SQ SCH ×2 (08:22→16:42)
[2017-09-17] MEDS: LISINOPRIL 5 MG TAB PO SCH ×2 (08:22→20:01)
[2017-09-17] MEDS: TAMSULOSIN 0.4 MG CAP.ER.24H PO SCH (08:22)
[2017-09-17] MEDS: METOPROLOL TARTRATE 25 MG TAB PO SCH ×2 (08:22→20:01)
[2017-09-17] MEDS: FLUCONAZOLE 100 MG TAB PO SCH (08:22)
[2017-09-17] MEDS: CLOPIDOGREL 75 MG TAB PO SCH (08:22)
[2017-09-17] MEDS: ATORVASTATIN 80 MG TAB PO SCH (08:22)
[2017-09-17] MEDS: PANTOPRAZOLE 40 MG/10 ML VIAL IVP SCH (08:22)
[2017-09-17] MEDS: ASPIRIN 81 MG PO SCH (08:22)
[2017-09-17] MEDS: DOCUSATE 100 MG CAP PO SCH (08:22)
[2017-09-17] MEDS: guaiFENesin SYRUP 100MG/5ML 200 MG/10 ML CUP PO PRN ×2 (08:23→18:13)
[2017-09-17] MEDS: traMADol 50 MG TAB PO SCH ×3 (08:24→18:13)
[2017-09-17] MEDS: PIPERACILLIN-TAZOBACTAM 3.375 GM in DEXTROSE/WATER 1 50ML.BAG IVPB SCH ×2 (08:36→16:41)
[2017-09-17] MEDS: BUDESONIDE 1 MG/2 ML NEBU INHALATION SCH ×2 (08:44→20:06)
[2017-09-17] MEDS: IPRATROPIUM-ALBUTEROL 3 ML NEB IH SCH ×4 (08:44→20:08)
[2017-09-17] MEDS: FORMOTEROL FUMARATE 20 MCG/2 ML NEBU INHALATION SCH ×2 (08:44→20:06)
[2017-09-17] MEDS: ALPRAZolam 0.25 MG TAB PO PRN (09:57)
--- NOTE | 2017-09-17 10:29 | P.PN ---
Subjective Progress Note Date: 09/17/17 Principal diagnosis: Left upper lobe mass. Medical history of coronary artery disease with recent stenting of the left anterior descending coronary artery in December 2016, perforated gastric ulcer with exploratory laparotomy, ITP, hypothyroid, diabetes mellitus type 2, previous tobacco dependence. POD #10 robotic assisted thoracoscopic left upper lobectomy with mediastinal lymph node dissection and fiberoptic bronchoscopy with clearance of mucous plug. POD #[address] Phillips. Gastroparesis, an unexpected but potential outcome given the patient's long- standing history of diabetes. Postoperative left pleural effusion, an unexpected but potential outcome of surgery. postoperative urine retention with incomplete bladder emptying, history of long- standing diabetes mellitus. Postoperative elevation of her left hemidiaphragm, an unexpected but potential outcome of surgery. The patient is currently laying in bed in no acute distress. She denies any complaints of pain or shortness of breath at this time. She reports that she has been ambulating in the hallway [facility]. She reports that her bowels moved yesterday after receiving a fleets enema on 09/16/2017. Post void residual remain being monitored, she has not required a straight cath in the last 24 hours. Her chest x-ray this morning is demonstrating near complete opacification left hemithorax. Objective - Vital Signs Vital signs: Vital Signs Temp 97.9 F 09/17/17 03:44 Pulse 104 H 09/17/17 09:11 Resp 18 09/17/17 03:44 BP 103/64 09/17/17 03:44 Pulse Ox 96 09/17/17 03:44 Intake & Output 09/16/17 09/17/17 09/17/17 18:59 06:59 18:59 Intake Total 290 50 Output Total 300 350 Balance -10 -300 Weight 62 kg Intake: Intake, IV Titration 50 50 Amount Piperacillin-Tazobactam 3 50 50 .375 gm In Dextrose/Water 1 50ml.bag @ 12.5 mls/hr IVPB Q8HR REY Rx#: [id number] Oral 240 Output: Urine 300 350 Other: Voiding Method Toilet Toilet # Voids 1 # Bowel Movements 0 - Constitutional General appearance: Present: cooperative, no acute distress - Respiratory Details: Lung sounds are diminished to her left lobes, essentially clear to her right lobes. Respirations are symmetrical and nonlabored. Oxygen saturation are 94% on room air. She is achieving 750 mL on her incentive spirometry. - Cardiovascular Details: Regular rhythm and rate. S1 and S2 present, positive systolic murmur 2/6. No edema present. Remote telemetry showing sinus tachycardia heart rate 102. Knee -high VANDANA hose and sequential compression devices in place to bilateral lower extremities. - Gastrointestinal Gastrointestinal Comment(s): Abdomen is soft, nontender and nondistended. Active bowel sounds to all 4 abdominal quadrants. No guarding or rigidity. No organomegaly. No palpable masses. Tolerating oral intake. - Genitourinary Genitourinary Comment(s): Voiding clear yellow urine. 350 mL output in the last 8 hours. - Integumentary Integumentary Comment(s): Skin is warm and dry. No clubbing or cyanosis present. Left lateral chest incisions clean dry and approximated. No drainage or redness present. - Neurologic Neurologic: Present: CNII-XII intact - Musculoskeletal Musculoskeletal: Present: gait normal, strength equal bilaterally - Psychiatric Psychiatric: Present: A&O x's 3, appropriate affect, intact judgment & insight - Allied health notes Allied health notes reviewed: nursing - Labs CBC & Chem 7: 09/17/17 06:22 09/17/17 06:22 Labs: Abnormal Lab Results - Last 24 Hours (Table) 09/16/17 09/16/17 09/16/17 Range/Units 11:42 16:57 21:16 WBC (3.8-10.6) k/uL RBC (3.80-5.40) m/uL Hgb (11.4-16.0) gm/dL Hct (34.0-46.0) % Neutrophils # (1.3-7.7) k/uL POC Glucose (mg/dL) 215 H 164 H 232 H (75-99) mg/dL Calcium (8.4-10.2) mg/dL 09/17/17 09/17/17 09/17/17 Range/Units 05:56 06:22 06:22 WBC 12.6 H (3.8-10.6) k/uL RBC 3.56 L (3.80-5.40) m/uL Hgb 10.2 L (11.4-16.0) gm/dL Hct 31.9 L (34.0-46.0) % Neutrophils # 10.4 H (1.3-7.7) k/uL POC Glucose (mg/dL) 105 H (75-99) mg/dL Calcium 8.3 L (8.4-10.2) mg/dL - Imaging and Cardiology Chest x-ray: report reviewed, image reviewed Assessment and Plan (1) History of ITP Current Visit: Yes Status: Acute Code(s): Z86.2 - PRSNL HISTORY OF DIS [facility] Code(s): 865369825 (2) History of gastric ulcer Current Visit: Yes Status: Acute Code(s): Z87.19 - PERSONAL HISTORY OF OTHER DISEASES OF THE DIGESTIVE SYSTEM SNOMED Code(s): 529708551 (3) History of myocardial infarction Current Visit: Yes Status: Acute Code(s): I25.2 - OLD MYOCARDIAL INFARCTION SNOMED Code(s): 671417822 (4) Tobacco dependence in remission Current Visit: Yes Status: Acute Code(s): F17.201 - NICOTINE DEPENDENCE, UNSPECIFIED, IN REMISSION SNOMED Code(s): 740889685 (5) Mass of upper lobe of left lung Current Visit: Yes Status: Acute Code(s): R91.8 - OTHER NONSPECIFIC ABNORMAL FINDING OF LUNG FIELD SNOMED Code(s): 548164628 (6) Coronary artery disease Current Visit: Yes Status: Chronic Code(s): I25.10 - ATHSCL HEART DISEASE OF [place] CORONARY ARTERY W/O ANG PCTRS SNOMED Code(s): 34669728 (7) Diabetes mellitus Current Visit: Yes Status: Chronic Code(s): E11.9 - TYPE 2 DIABETES MELLITUS WITHOUT COMPLICATIONS SNOMED Code(s): 79966199 (8) History of heart artery stent Current Visit: Yes Status: Chronic Code(s): Z95.5 - PRESENCE OF CORONARY ANGIOPLASTY IMPLANT AND GRAFT SNOMED Code(s): 333917569 (9) Hypothyroid Current Visit: Yes Status: Chronic Code(s): E03.9 - HYPOTHYROIDISM, UNSPECIFIED SNOMED Code(s): 06666823 (10) Gastroparesis due to DM Current Visit: Yes Status: Acute Code(s): E11.43 - TYPE 2 DIABETES W DIABETIC AUTONOMIC (POLY)NEUROPATHY; K31.84 - GASTROPARESIS SNOMED Code(s): 390150184 (11) Urinary retention with incomplete bladder emptying Current Visit: Yes Status: Acute Code(s): R33.9 - RETENTION OF URINE, UNSPECIFIED SNOMED Code(s): 383826413 Plan: 1. Continue stool softeners and Reglan for gastroparesis. 2. Encourage incentive spirometry use 10 times every hour. 3. Reinforced the importance of continued smoking cessation 4. Increase activity, ambulate in hallway, PT/OT following. 5. Bronchodilators per pulmonology. 6. Continue pain control with ordered medication regimen. 7. GI/DVT prophylaxis. 8. Continue bladder scan every 6 hours for post void residual. May straight cath for greater than 500 mL per urology. 9. GI and DVT prophylaxis. 10. She willl be made nothing by mouth after midnight, a consent will be obtained for a bronchoscopy for tomorrow a.m. 09/18/2017 to be performed by Dr. Borja. 11. Continue Diflucan 100 mg by mouth daily 5 days started for Rosa Maria in her urine. 12. Continue Zosyn 3.375 g every 8 hours started by pulmonary on 09/16/2017. 13. Continue Flomax started by Urology. 14. Blood sugar management per primary care services. 15. More recommendations to follow based on the patient's clinical course. Time with Patient: Greater than 30
--- NOTE | 2017-09-17 11:27 | P.PN ---
Subjective Progress Note Date: 09/17/17 Principal diagnosis: Status post robotic-assisted thoracoscopic left upper lobe lobectomy and mediastinal lymph node dissection for left upper lobe mass. Postoperative day # 10 On today's evaluation of 09/15/2017, I'm seeing this patient for a follow-up. The patient is looking well. She is ambulating. Chest x-ray from today shows a small air-fluid level within the left upper lobe. I'm aware that the patient had a small loculated pneumothorax and on today's chest x-ray there is a small hydropneumothorax. I was asked to consider a thoracentesis on this patient. Ultrasound of the left chest showed no significant pleural fluid the cannulation and based on that I'm going to wait forthat the patient is doing well and the patient is on room air oxygen. She is tolerating her diet. She is ambulating. No NG tube insertion. No abdominal distention. No fever or chills. Surgical wound site is clean. No other significant events overnight and will continue to follow. 1 she is having issues with urinary retention and the patient be asked to be seen by urology. The urinary catheter was taken out yesterday and we are monitoring the post void residual. On 24,008 units in this patient for a follow-up. The chest x-ray shows further opacification of the left lung along with a small air-fluid levels in the left apical area. Left hemidiaphragm remains elevated and the stomach is less distended. Based on all this, CAT scan of the chest was requested that was done without contrast and the patient has a small pneumothorax in the left apex estimated to be less than 5% of the total lung volume. There is a small to moderate-sized pleural effusion which is loculated anteriorly and posteriorly. There is obviously an area of hydropneumothorax. In addition, the left lower lobe was quite opacified and there is extensive consolidation which raises the concern for pneumonia within the left lung. There is obvious volume loss and shift at least on structures of the left. Despite all this, the patient remains on room air. No significant fever. No chills. No nausea or vomiting. No abdominal pain. No other complaints otherwise for now. On 09/17/2017, I evaluated the patient, and evaluated her chest x-ray and CT of the chest, patient apparently developed complete opacification of the left lung. I tried to schedule the patient for bronchoscopy now, however the patient already ate, and we'll try to schedule the bronchoscopy most likely in the next 24 hours. Seems to be a picture of mucous plugging involving the left mainstem bronchus. Patient will need to be bronchoscoped, and most likely extract mucous plugs and lavage of the left lung will be done. Surprisingly the patient is not in much respiratory distress. WBC count is 4.6 hemoglobin is 10.2 basic metabolic profile is normal. Objective - Vital Signs Vital signs: Vital Signs Temp 97.3 F L 09/17/17 08:00 Pulse 104 H 09/17/17 09:11 Resp 18 09/17/17 08:00 BP 117/54 09/17/17 08:00 Pulse Ox 93 L 09/17/17 08:00 Intake & Output 09/16/17 09/17/17 09/17/17 18:59 06:59 18:59 Intake Total 290 50 510 Output Total 300 350 Balance -10 -300 510 Weight 62 kg Intake: IV 40 0.9 40 Intake, IV Titration 50 50 50 Amount Piperacillin-Tazobactam 3 50 50 50 .375 gm In Dextrose/Water 1 50ml.bag @ 12.5 mls/hr IVPB Q8HR [facility] Rx#: [id number] Oral 240 420 Output: Urine 300 350 Other: Voiding Method Toilet Toilet Toilet # Voids 1 2 # Bowel Movements 0 - Exam Physical Exam revealed a 66-year-old female in no distress. Head: Atraumatic, normocephalic. HEENT:[Neck is supple.] [No neck masses.] [No thyromegaly.] [No JVD.] Chest: [Diminished breath sound on the left side, dullness on the left side, right side is relatively clear.] Cardiac Exam: [Normal S1 and S2, no S3 gallop, no murmur.] Abdomen: [Soft, nontender, no megaly, no rebound, no guarding, normal bowel sounds.] Extremities: [No clubbing, no edema, no cyanosis.] Neurological Exam: [No focal neurologic deficit.] Lymphatics: No lymphadenopathy. Psychiatric: Normal mood affect and mental status examination. Skin: No rashes. - Labs CBC & Chem 7: 09/17/17 06:22 09/17/17 06:22 Labs: Abnormal Lab Results - Last 24 Hours (Table) 09/16/17 09/16/17 09/16/17 Range/Units 11:42 16:57 21:16 WBC (3.8-10.6) k/uL RBC (3.80-5.40) m/uL Hgb (11.4-16.0) gm/dL Hct (34.0-46.0) % Neutrophils # (1.3-7.7) k/uL POC Glucose (mg/dL) 215 H 164 H 232 H (75-99) mg/dL Calcium (8.4-10.2) mg/dL 09/17/17 09/17/17 09/17/17 Range/Units 05:56 06:22 06:22 WBC 12.6 H (3.8-10.6) k/uL RBC 3.56 L (3.80-5.40) m/uL Hgb 10.2 L (11.4-16.0) gm/dL Hct 31.9 L (34.0-46.0) % Neutrophils # 10.4 H (1.3-7.7) k/uL POC Glucose (mg/dL) 105 H (75-99) mg/dL Calcium 8.3 L (8.4-10.2) mg/dL Assessment and Plan Assessment: 1 robotic-assisted thoracoscopic left upper lobe lobectomy with mediastinal lymph node dissection for a left upper lobe mass. The patient is postop day # 10. 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 The left hemithorax shows some volume loss and elevation of the left hemidiaphragm. In addition, there is worsening of the consolidation of the left lung or the past 24-48 hours which are listed raises the concern for an underlying pneumonia. The patient is afebrile. No worsening and oxygenation. CAT scan of the chest also showed loculated anterior and posterior pleural effusions which are small at this point in time. Chest x-ray showed worsening left lung opacification and consolidation, this is most likely secondary to mucous plugging of the left mainstem bronchus, I will arrange for bronchoscopy, first thing in the morning tomorrow. 2 COPD at baseline with an FEV1 of 70% of predicted preoperatively 3 left hemidiaphragmatic elevation following a left upper lobe resection. This could be related to volume loss/lobectomy. At the same and the patient has some gastric distention, a symptomatically at this stage. 4 abdominal distention and discomfort secondary to suspected gastroparesis/ ileus. The patient had an EGD and the patient has no evidence of any mechanical obstruction or gastric outlet obstruction. 5 hypothyroidism 6 diabetes mellitus 7 history of ITP, normal platelet count 8 history of smoking currently in remission 9 coronary artery disease with previous history of coronary intervention and stenting Recommendation: Continue bronchodilators, continue incentive spirometry, continue antibiotics, will definitely need bronchoscopy. However the patient already ate this morning, and I will arrange for the bronchoscopy tomorrow morning. Patient was made aware of the findings, and she is willing to proceed with a scope. Time with Patient: Less than 30
[2017-09-17 11:55] LABS: Glucose,Whole Blood 246 mg/dL (75-99)
[2017-09-17] MEDS: INSULIN DETEMIR 100 UNIT/ML 10 ML VIAL SQ SCH (12:39)
[2017-09-17 16:37] LABS: Glucose,Whole Blood 139 mg/dL (75-99)
[2017-09-17] MEDS: ACETAMINOPHEN TAB 325 MG TAB PO PRN (16:41)
[2017-09-17 21:22] LABS: Glucose,Whole Blood 42 mg/dL (75-99)
[2017-09-17] MEDS: INSULIN NPH 300 UNIT/3 ML VIAL SQ SCH (21:24)
[2017-09-17 21:44] LABS: Glucose,Whole Blood 44 mg/dL (75-99)
[2017-09-17 22:01] LABS: Glucose,Whole Blood 51 mg/dL (75-99)
[2017-09-17 22:33] LABS: Glucose,Whole Blood 59 mg/dL (75-99)
[2017-09-17] MEDS ORDERED: DEXTROSE 50%-WATER 50 ML SYRINGE IVP STA (22:34)
--- NOTE | 2017-09-17 22:57 | P.PN ---
Subjective This is a pleasant 66 years old female with past medical history of diabetes mellitus, fibromyalgia, GERD, idiopathic thrombocytopenia purpura, IBS, diverticulitis, herniated disc at L3-L4, restless leg syndrome lung cancer stage I with left upper lobe mass. Patient originally came in with shortness of breath for COPD exacerbation suspicion she got CAT scan which found to have left upper lobe mass last surgery was small but deep in the lung parenchyma. Lobectomy was recommended by the surgeon which the patient had on 09/06/2017. Patient had CT of the abdomen and pelvis on 09/12/2017 showing the stomach is markedly distended and rectal wall. GI team were consulted and recommended NG tube followed by EGD: No mechanical obstruction of the stomach outlet and patient was diagnosed for possible gastroparesis. Also they recommended outpatient colonoscopy. Chest x-ray from today showed left lung opacification with elevation of the left hemidiaphragm. CT of the chest without contrast: Showed hydropneumothorax with 5% pneumothorax of the appendix and small to moderate pleural effusion, and possible mucous plug of the left main bronchus with severe consolidation and COPD Objective - Vital Signs Vital signs: Vital Signs Temp 97.1 F L 09/17/17 20:00 Pulse 106 H 09/17/17 20:26 Resp 18 09/17/17 20:00 BP 106/63 09/17/17 20:00 Pulse Ox 94 L 09/17/17 20:08 Intake & Output 09/17/17 09/17/17 09/18/17 06:59 18:59 06:59 Intake Total 50 840 Output Total 350 Balance -300 840 Weight 62 kg Intake: IV 40 0.9 40 Intake, IV Titration 50 100 Amount Piperacillin-Tazobactam 3 50 100 .375 gm In Dextrose/Water 1 50ml.bag @ 12.5 mls/hr IVPB Q8HR [facility] Rx#: [id number] Oral 700 Output: Urine 350 Other: Voiding Method Toilet Toilet Toilet # Voids 2 - Exam -GENERAL: The patient is alert and oriented x3, in respiratory distress due to cough and pain at the surgery site. No tachypnea. Well developed, well nourished. HEENT: Pupils are round and equally reacting to light. EOMI. No scleral icterus. No conjunctival pallor. Normocephalic, atraumatic. No pharyngeal erythema. No thyromegaly. CARDIOVASCULAR: S1 and S2 present. No murmurs, rubs, or gallops. -PULMONARY: Chest has some crackles on the left side with decreased breath sounds, no wheezing ABDOMEN: Soft, nontender, nondistended, normoactive bowel sounds. No palpable organomegaly. MUSCULOSKELETAL: No joint swelling or deformity. EXTREMITIES: No cyanosis, clubbing, or pedal edema. NEUROLOGICAL: Gross neurological examination did not reveal any focal deficits. SKIN: No rashes. - Labs CBC & Chem 7: 09/17/17 06:22 09/17/17 06:22 Labs: Abnormal Lab Results - Last 24 Hours (Table) 09/17/17 09/17/17 09/17/17 Range/Units 05:56 06:22 06:22 WBC 12.6 H (3.8-10.6) k/uL RBC 3.56 L (3.80-5.40) m/uL Hgb 10.2 L (11.4-16.0) gm/dL Hct 31.9 L (34.0-46.0) % Neutrophils # 10.4 H (1.3-7.7) k/uL POC Glucose (mg/dL) 105 H (75-99) mg/dL Calcium 8.3 L (8.4-10.2) mg/dL 09/17/17 09/17/17 09/17/17 Range/Units 11:54 16:35 21:21 WBC (3.8-10.6) k/uL RBC (3.80-5.40) m/uL Hgb (11.4-16.0) gm/dL Hct (34.0-46.0) % Neutrophils # (1.3-7.7) k/uL POC Glucose (mg/dL) 246 H 139 H 42 L (75-99) mg/dL Calcium (8.4-10.2) mg/dL 09/17/17 09/17/17 09/17/17 Range/Units 21:42 22:00 22:22 WBC (3.8-10.6) k/uL RBC (3.80-5.40) m/uL Hgb (11.4-16.0) gm/dL Hct (34.0-46.0) % Neutrophils # (1.3-7.7) k/uL POC Glucose (mg/dL) 44 L 51 L 59 L (75-99) mg/dL Calcium (8.4-10.2) mg/dL Assessment and Plan Plan: -Left upper lobe mass. Lung cancer stage I. Status post lobectomy. Pulmonary/ intensive care unit specialist and thoracic surgeon on the case. -Possible left pneumonia. Chest x-ray shows consolidations of the left lung. Mild leukocytosis. Patient started on IV Zosyn and follow-up chest x-ray the morning with possible need for bronchoscopy as per pulmonary team with R following the case. Thoracic surgeon also follow seeing the patient -Gastroparesis. GI following the patient. Continue with conservative treatment. -Rectal wall thickening. GI consult is noted-and they recommended outpatient colonoscopy -Urinary retention and incomplete emptying. Neurologist evaluation is noted. ditropan was DC'd. This was placed for straight cath also -Possible UTI, UC showing Rosa Maria. continue with Zosyn and Diflucan -Abnormal liver function test, follow-up level -Diabetes mellitus continue with Levemir 20 units DVT prophylaxis on heparin GI prophylaxis Protonix Prognosis is guarded
[2017-09-17 23:12] LABS: Glucose,Whole Blood 180 mg/dL (75-99)
[2017-09-17] MEDS ORDERED: DILTIAZEM DRIP BOLUS FROM BAG 1 MG SOLN IV ONE (23:55)
[2017-09-18] MEDS: ALPRAZolam 0.25 MG TAB PO PRN ×2 (00:11→11:45)
[2017-09-18] MEDS: traMADol 50 MG TAB PO SCH ×5 (00:11→21:42)
[2017-09-18] MEDS: DILTIAZEM 50 MG in SODIUM CHLORIDE 0.9% 40 ML IV SCH ×5 (00:13→21:18)
[2017-09-18] MEDS: METOCLOPRAMIDE 5 MG/ML 2 ML VIAL IVP SCH ×5 (00:26→23:37)
[2017-09-18] MEDS: HEPARIN SODIUM,PORCINE 5,000 UNIT/ML 1 ML VIAL SQ SCH ×4 (00:26→23:37)
[2017-09-18] MEDS: PIPERACILLIN-TAZOBACTAM 3.375 GM in DEXTROSE/WATER 1 50ML.BAG IVPB SCH ×4 (00:26→23:37)
[2017-09-18 01:47] LABS: Glucose,Whole Blood 284 mg/dL (75-99)
[2017-09-18 02:10] LABS: Glucose,Whole Blood 291 mg/dL (75-99)
[2017-09-18 06:04] LABS: Glucose,Whole Blood 348 mg/dL (75-99)
[2017-09-18 06:21] LABS: Basophils % (A) 0 %; Eosinophils % (A) 0 %; HCT 32.2 % (34.0-46.0); Hypochromasia Slight; Lymphocytes # (A) 0.8 k/uL (1.0-4.8); Lymphocytes % (A) 6 %; MCH 28.6 pg (25.0-35.0); MCHC 31.1 g/dL (31.0-37.0); MCV 91.9 fL (80.0-100.0); Mean Platelet Volume 7.5; Monocytes # (A) 0.6 k/uL (0-1.0); Monocytes % (A) 5 %; Neutrophils % (A) 87 %; Platelet Count 394 k/uL (150-450); RDW 14.3 % (11.5-15.5); WBC 12.7 k/uL (3.8-10.6)
[2017-09-18 06:24] LABS: Calcium 8.3 mg/dL (8.4-10.2); Potassium 5.2 mmol/L (3.5-5.1)
[2017-09-18] MEDS: INSULIN ASPART 100 UNIT/ML 1 ML 10 ML VIAL SQ SCH ×4 (06:34→21:41)
[2017-09-18] MEDS: FORMOTEROL FUMARATE 20 MCG/2 ML NEBU INHALATION SCH ×2 (08:17→19:46)
[2017-09-18] MEDS: IPRATROPIUM-ALBUTEROL 3 ML NEB IH SCH ×4 (08:17→19:46)
[2017-09-18] MEDS: BUDESONIDE 1 MG/2 ML NEBU INHALATION SCH ×2 (08:17→19:46)
[2017-09-18] MEDS ORDERED: IV FLUID CONTINUATION 1,000 ML IV ONE (10:34)
[2017-09-18] MEDS ORDERED: fentaNYL (PF) 50 MCG/ML 2 ML AMP ONE (10:45)
[2017-09-18] MEDS ORDERED: LIDOCAINE 1% INJ 10MG/ML (20 ML MDV) ONE (10:45)
[2017-09-18] MEDS ORDERED: MIDAZOLAM 2 MG/2 ML VIAL ONE (10:45)
[2017-09-18] MEDS ORDERED: PROPOFOL 10 MG/ML 20 ML VIAL IV ONE (10:45)
[2017-09-18] MEDS ORDERED: GLYCOPYRROLATE 0.2 MG/ML 2 ML VIAL ONE (10:45)
--- NOTE | 2017-09-18 10:51 | XR ---
EXAMINATION TYPE: XR chest 1V portable DATE OF EXAM: 09/18/2017 COMPARISON: Prior chest x-ray 09/17/2017 HISTORY: Postop left upper lobectomy TECHNIQUE: Single frontal view of the chest is obtained. FINDINGS: Findings are similar. Volume loss present in the left hemithorax. Only minimal opacified l agus apex on the left is noted. Heart has shifted into the left chest. No pneumothorax. There are over lying cardiac leads. IMPRESSION: Findings are similar to prior exam. Near complete opacification left hemithorax with vol ume loss.
[2017-09-18] MEDS ORDERED: LIDOCAINE 1% INJ 10MG/ML (20 ML MDV) INTRATRACH ONE (11:02)
--- NOTE | 2017-09-18 11:10 | P.PN ---
Subjective Progress Note Date: 09/18/17 Principal diagnosis: Left upper lobe mass. Medical history of coronary artery disease with recent stenting of the left anterior descending coronary artery in December 2016, perforated gastric ulcer with exploratory laparotomy, ITP, hypothyroid, diabetes mellitus type 2, previous tobacco dependence. POD #11 robotic assisted thoracoscopic left upper lobectomy with mediastinal lymph node dissection and fiberoptic bronchoscopy with clearance of mucous plug. POD #[address] Phillips. Gastroparesis, an unexpected but potential outcome given the patient's long- standing history of diabetes. Postoperative left pleural effusion, an unexpected but potential outcome of surgery. postoperative urine retention with incomplete bladder emptying, history of long- standing diabetes mellitus. Postoperative elevation of her left hemidiaphragm, an unexpected but potential outcome of surgery. The patient is currently laying in bed in no acute distress. She denies any complaints of pain or shortness of breath at this time. She reports that she has been ambulating in the hallway [facility] 4 times yesterday and once this morning. She reports that her bowels moved last after receiving a fleets enema on 09/16/2017. Post void residual remain being monitored, she has not required a straight cath in the last 48 hours. She feels the [facility] is helping her. Her chest x-ray this morning is demonstrating near complete opacification left hemithorax, she is scheduled for a bronchoscopy this morning to be performed by Dr. Borja at 10:30 AM. Registered nurse Grace reports that the patient had an episode of atrial fibrillation with RVR last night which was self -limiting. Objective - Vital Signs Vital signs: Vital Signs Temp 97.3 F L 09/18/17 08:00 Pulse 104 H 09/18/17 08:43 Resp 18 09/18/17 08:00 BP 99/54 09/18/17 08:00 Pulse Ox 94 L 09/18/17 08:00 Intake & Output 09/17/17 09/18/17 09/18/17 18:59 06:59 18:59 Intake Total 840 502.916 Output Total 350 Balance 840 152.916 Weight 59 kg Intake: IV 40 0.9 40 Intake, IV Titration 100 22.916 Amount Diltiazem 50 mg In Sodium 22.916 Chloride 0.9% 40 ml @ 10 MG/HR 10 mls/hr IV .Q5H [facility] Rx#:[id number] Piperacillin-Tazobactam 3 100 .375 gm In Dextrose/Water 1 50ml.bag @ 12.5 mls/hr IVPB Q8HR [facility] Rx#: [id number] Oral 700 480 Output: Urine 350 Other: Voiding Method Toilet Toilet # Voids 2 - Constitutional General appearance: Present: cooperative, no acute distress - Respiratory Details: Lung sounds are diminished to her left lobes, essentially clear to her right lobes. Respirations are symmetrical and nonlabored. Oxygen saturation are 96% on room air. She is achieving 750 mL on her incentive spirometry. - Cardiovascular Details: Regular rhythm and rate. S1 and S2 present, positive systolic murmur /. Remote telemetry showing normal sinus rhythm heart rate 89. Episode of atrial fibrillation with RVR last night heart rate 140's. Knee-high VANDANA hose and sequential compression devices in place to bilateral lower extremities. No edema present. - Gastrointestinal Gastrointestinal Comment(s): Abdomen is soft, nontender and nondistended. Hypoactive bowel sounds all 4 abdominal quadrants. Nothing by mouth at this time for preparation for her bronchoscopy procedure. No guarding or rigidity. No organomegaly. - Genitourinary Genitourinary Comment(s): Voiding clear yellow urine. 350 mL output in the last 8 hours. - Integumentary Integumentary Comment(s): Skin is warm and dry. No clubbing or cyanosis present. Left lateral chest incisions clean dry and approximated. No drainage or redness present. No rash or abnormal pigmentation present. - Neurologic Neurologic: Present: CNII-XII intact - Musculoskeletal Musculoskeletal: Present: gait normal, strength equal bilaterally - Psychiatric Psychiatric: Present: A&O x's 3, appropriate affect, intact judgment & insight - Allied health notes Allied health notes reviewed: nursing - Labs CBC & Chem 7: 09/18/17 05:51 09/18/17 05:51 Labs: Abnormal Lab Results - Last 24 Hours (Table) 09/17/17 09/17/17 09/17/17 Range/Units 11:54 16:35 21:21 WBC (3.8-10.6) k/uL RBC (3.80-5.40) m/uL Hgb (11.4-16.0) gm/dL Hct (34.0-46.0) % Neutrophils # (1.3-7.7) k/uL Lymphocytes # (1.0-4.8) k/uL Sodium (137-145) mmol/L Potassium (3.5-5.1) mmol/L Chloride (98-107) mmol/L Glucose (74-99) mg/dL POC Glucose (mg/dL) 246 H 139 H 42 L (75-99) mg/dL Calcium (8.4-10.2) mg/dL TSH (0.465-4.680) mIU/L 09/17/17 09/17/17 09/17/17 Range/Units 21:42 22:00 22:22 WBC (3.8-10.6) k/uL RBC (3.80-5.40) m/uL Hgb (11.4-16.0) gm/dL Hct (34.0-46.0) % Neutrophils # (1.3-7.7) k/uL Lymphocytes # (1.0-4.8) k/uL Sodium (137-145) mmol/L Potassium (3.5-5.1) mmol/L Chloride (98-107) mmol/L Glucose (74-99) mg/dL POC Glucose (mg/dL) 44 L 51 L 59 L (75-99) mg/dL Calcium (8.4-10.2) mg/dL TSH (0.465-4.680) mIU/L 09/17/17 09/18/17 09/18/17 Range/Units 23:01 01:47 02:09 WBC (3.8-10.6) k/uL RBC (3.80-5.40) m/uL Hgb (11.4-16.0) gm/dL Hct (34.0-46.0) % Neutrophils # (1.3-7.7) k/uL Lymphocytes # (1.0-4.8) k/uL Sodium (137-145) mmol/L Potassium (3.5-5.1) mmol/L Chloride (98-107) mmol/L Glucose (74-99) mg/dL POC Glucose (mg/dL) 180 H 284 H 291 H (75-99) mg/dL Calcium (8.4-10.2) mg/dL TSH (0.465-4.680) mIU/L 09/18/17 09/18/17 09/18/17 Range/Units 05:51 05:51 05:51 WBC 12.7 H (3.8-10.6) k/uL RBC 3.50 L (3.80-5.40) m/uL Hgb 10.0 L (11.4-16.0) gm/dL Hct 32.2 L (34.0-46.0) % Neutrophils # 11.0 H (1.3-7.7) k/uL Lymphocytes # 0.8 L (1.0-4.8) k/uL Sodium 133 L (137-145) mmol/L Potassium 5.2 H (3.5-5.1) mmol/L Chloride 95 L (98-107) mmol/L Glucose 343 H (74-99) mg/dL POC Glucose (mg/dL) (75-99) mg/dL Calcium 8.3 L (8.4-10.2) mg/dL TSH 0.346 L (0.465-4.680) mIU/L 09/18/17 Range/Units 06:02 WBC (3.8-10.6) k/uL RBC (3.80-5.40) m/uL Hgb (11.4-16.0) gm/dL Hct (34.0-46.0) % Neutrophils # (1.3-7.7) k/uL Lymphocytes # (1.0-4.8) k/uL Sodium (137-145) mmol/L Potassium (3.5-5.1) mmol/L Chloride (98-107) mmol/L Glucose (74-99) mg/dL POC Glucose (mg/dL) 348 H (75-99) mg/dL Calcium (8.4-10.2) mg/dL TSH (0.465-4.680) mIU/L - Imaging and Cardiology Chest x-ray: report reviewed, image reviewed Assessment and Plan (1) History of ITP Current Visit: Yes Status: Acute Code(s): Z86.2 - PRSNL HISTORY OF DIS OF THE BLD/BLD-FORM ORG/IMMUN [facility] SNOMED Code(s): 084488675 (2) History of gastric ulcer Current Visit: Yes Status: Acute Code(s): Z87.19 - PERSONAL HISTORY OF OTHER DISEASES OF THE DIGESTIVE SYSTEM SNOMED Code(s): 027259048 (3) History of myocardial infarction Current Visit: Yes Status: Acute Code(s): I25.2 - OLD MYOCARDIAL INFARCTION SNOMED Code(s): 007718064 (4) Tobacco dependence in remission Current Visit: Yes Status: Acute Code(s): F17.201 - NICOTINE DEPENDENCE, UNSPECIFIED, IN REMISSION SNOMED Code(s): 955192639 (5) Mass of upper lobe of left lung Current Visit: Yes Status: Acute Code(s): R91.8 - OTHER NONSPECIFIC ABNORMAL FINDING OF LUNG FIELD SNOMED Code(s): 857220046 (6) Coronary artery disease Current Visit: Yes Status: Chronic Code(s): I25.10 - ATHSCL HEART DISEASE OF [place] CORONARY ARTERY W/O ANG PCTRS SNOMED Code(s): 65275133 (7) Diabetes mellitus Current Visit: Yes Status: Chronic Code(s): E11.9 - TYPE 2 DIABETES MELLITUS WITHOUT COMPLICATIONS SNOMED Code(s): 07750576 (8) History of heart artery stent Current Visit: Yes Status: Chronic Code(s): Z95.5 - PRESENCE OF CORONARY ANGIOPLASTY IMPLANT AND GRAFT SNOMED Code(s): 785719996 (9) Hypothyroid Current Visit: Yes Status: Chronic Code(s): E03.9 - HYPOTHYROIDISM, UNSPECIFIED SNOMED Code(s): 71157481 (10) Gastroparesis due to DM Current Visit: Yes Status: Acute Code(s): E11.43 - TYPE 2 DIABETES W DIABETIC AUTONOMIC (POLY)NEUROPATHY; K31.84 - GASTROPARESIS SNOMED Code(s): 293155650 (11) Urinary retention with incomplete bladder emptying Current Visit: Yes Status: Acute Code(s): R33.9 - RETENTION OF URINE, UNSPECIFIED SNOMED Code(s): 276141798 Plan: 1. Continue stool softeners and Reglan for gastroparesis. 2. Encourage incentive spirometry use 10 times every hour. 3. Reinforced the importance of continued smoking cessation 4. Increase activity, ambulate in hallway, PT/OT following. 5. Bronchodilators per pulmonology. 6. Continue pain control with ordered medication regimen. 7. GI/DVT prophylaxis. 8. Continue bladder scan every 6 hours for post void residual. May straight cath for greater than 500 mL per urology. 9. GI and DVT prophylaxis. 10. She is nothing by mouth after midnight, a consent will be obtained for a bronchoscopy which is scheduled for 10:30 AM today to be performed by Dr. Borja. 11. Continue Diflucan 100 mg by mouth daily 5 days started for Rosa Maria in her urine. 12. Continue Zosyn 3.375 g every 8 hours started by pulmonary on 09/16/2017. 13. Continue Flomax started by Urology. 14. Blood sugar management per primary care services. 15. Cardiology was consulted by primary care service for A. fib with RVR. TSH level from this morning is 0.346. 16. 2-D echocardiogram results pending. 17. More recommendations to follow based on the patient's clinical course. Time with Patient: Greater than 30
--- NOTE | 2017-09-18 11:31 | PCN ---
PROCEDURE NOTE PROCEDURE: Bronchoscopy, endobronchial brushings of the distal mainstem bronchus, endobronchial biopsy of the distal left main bronchus and washings of the distal left main bronchus. PREOPERATIVE DIAGNOSIS: Left lung collapse, patient is status post left upper lobectomy for squamous cell carcinoma. POSTOPERATIVE DIAGNOSIS: Complete obstruction of the left mainstem bronchus, and postoperative pneumonia with purulent drainage. PROCEDURE NOTE: Patient was prepared according to the bronchoscopy protocol. O2 was applied via nasal cannula, we monitored the O2 saturation continuously, blood pressure was intermittently monitored, and cardiac rhythm was continuously monitored. After adequate IV conscious sedation, the patient was in a supine position, and the bronchoscope was advanced through the right naris down to the area of the vocal cords. The vocal cords were noted to be patent. Lidocaine was applied over the vocal cords, and the bronchoscope was advanced further down. Below the vocal cords, the trachea was noted to be normal, kristen was sharp. Right side was relatively normal including right upper lobe, right lower lobe, right lower lobe. However, as I entered the left mainstem bronchus, there was significant amount of purulent secretions, these were suctioned and lavaged. Then as I went down further, I could see that there was complete obstruction/occlusion of the left mainstem bronchus. There was very tiny minute opening noted wherein purulent material was noted to be coming out of that opening. I was able to pass only a brush, could not pass the bronchoscope through that opening. Again, there was almost a blunt cut off of the distal left main bronchus, biopsies, brushings, and lavage was done of that area. Procedure was well tolerated, no evidence of any immediate complications. Pictures of that abnormality involving the left mainstem bronchus were taken, and we are in the process of discussing this with the surgeon on the case. MMODL / IJN: [id number] /
[2017-09-18] MEDS: TAMSULOSIN 0.4 MG CAP.ER.24H PO SCH (11:34)
[2017-09-18] MEDS: DOCUSATE 100 MG CAP PO SCH (11:34)
[2017-09-18] MEDS: CLOPIDOGREL 75 MG TAB PO SCH (11:34)
[2017-09-18] MEDS: METOPROLOL TARTRATE 25 MG TAB PO SCH ×2 (11:34→21:43)
[2017-09-18] MEDS: ATORVASTATIN 80 MG TAB PO SCH (11:34)
[2017-09-18] MEDS: FLUCONAZOLE 100 MG TAB PO SCH (11:34)
[2017-09-18] MEDS: PANTOPRAZOLE 40 MG/10 ML VIAL IVP SCH (11:35)
[2017-09-18] MEDS: ASPIRIN 81 MG PO SCH (11:35)
[2017-09-18 11:45] LABS: Hemoglobin A1C 11.6 % (4.0-6.0)
[2017-09-18] MEDS: LISINOPRIL 5 MG TAB PO SCH ×2 (11:45→21:42)
[2017-09-18 11:46] LABS: Glucose,Whole Blood 235 mg/dL (75-99)
--- NOTE | 2017-09-18 11:56 | ECHOF ---
Referral Reason:afib rvr MEASUREMENTS -------- HEIGHT: 157.5 cm WEIGHT: 61.7 kg BP: 87/54 IVSd: 0.9 cm (0.6 - 1.1) LVIDd: 2.8 cm (3.9 - 5.3) LVPWd: 0.9 cm (0.6 - 1.1) IVSs: 1.5 cm LVIDs: 2.1 cm LVPWs: 1.4 cm Ao Diam: 2.3 cm (2.0 - 3.7) AV Cusp: 1.1 cm (1.5 - 2.6) LA Diam: 2.4 cm (2.7 - 3.8) MV EXCURSION: 13.189 mm (> 18.000) MV EF SLOPE: 57 mm/s (70 - 150) EPSS: 0.4 cm MV E Raul: 1.01 m/s MV DecT: 197 ms MV A Raul: 1.12 m/s MV E/A Ratio: 0.90 AV maxP.32 mmHg AV meanP.68 mmHg RAP: 5.00 mmHg RVSP: 18.74 mmHg FINDINGS -------- Sinus rhythm. This was a technically adequate study. The left ventricular size is normal. Left ventricular wall thickness is normal. Overall left vent ricular systolic function is normal with, an EF between 55 - 60 %. The right ventricle is normal in size and function. The left atrium is normal in size. The right atrium is normal in size. Aortic valve is trileaflet and is mildly thickened. There is mild aortic stenosis present. Peak/m jabari gradient across the Aortic Valve is 15.32mmHg / 9.68mmHg. The mitral valve leaflets are mildly thickened. Mild mitral annular calcification present. Mild m itral regurgitation is present. Mild tricuspid regurgitation present. The right ventricular systolic pressure, as measured by Doppl er, is 18.74mmHg. Pulmonic valve appears structurally normal. The aortic root size is normal. There is a trivial pericardial effusion present. CONCLUSIONS -------- 1. Sinus rhythm. 2. This was a technically adequate study. 3. The left ventricular size is normal. 4. Left ventricular wall thickness is normal. 5. Overall left ventricular systolic function is normal with, an EF between 55 - 60 %. 6. The right ventricle is normal in size and function. 7. The left atrium is normal in size. 8. The right atrium is normal in size. 9. Aortic valve is trileaflet and is mildly thickened. 10. There is mild aortic stenosis present. 11. Peak/mean gradient across the Aortic Valve is 15.32mmHg / 9.68mmHg. 12. The mitral valve leaflets are mildly thickened. 13. Mild mitral annular calcification present. 14. Mild mitral regurgitation is present. 15. Mild tricuspid regurgitation present. 16. The right ventricular systolic pressure, as measured by Doppler, is 18.74mmHg. 17. Pulmonic valve appears structurally normal. 18. The aortic root size is normal. 19. There is a trivial pericardial effusion present. PUBLIC HEALTH NURSE: Vee Hernandez RDCS
--- NOTE | 2017-09-18 12:16 | CONS ---
CONSULTATION CHIEF COMPLAINT: Atrial fibrillation. Neeru is a 66-year-old lady who is admitted to hospital who has a history of coronary artery disease for which she underwent angioplasty, had a perforated gastric ulcer, type 2 diabetes who presented to hospital with left upper lobe mass and underwent left upper lobectomy, had postop pleural effusion and last night developed atrial fibrillation with rapid ventricular rate for which Cardiology had been consulted. She was treated with intravenous Cardizem following which she converted to sinus rhythm and her Cardizem drip had been stopped. At the time of my evaluation, she is seems to be in respiratory distress. She has just returned from bronchoscopy, complains of shortness of breath. PAST MEDICAL HISTORY: Significant for coronary artery disease, status post angioplasty, hypertension, COPD, insulin-requiring diabetes. MEDICATIONS: Include aspirin, Lipitor, Xanax, Symbicort, Plavix, [place], Levemir, Combivent, Prinivil, Imodium, Lopressor, VESIcare, and Requip. There are no known drug allergies. FAMILY HISTORY: Negative for premature coronary artery disease. SOCIAL HISTORY: As documented. REVIEW OF SYSTEMS: Significant for shortness of breath. Rest of the system review is not relevant. PHYSICAL EXAM: Heart rate is around 100 beats per minute. Chest exam reveals diminished air entry, bilaterally with occasional rhonchi. Heart exam reveals first and second heart sounds. No gallop. Abdomen is distended. Exam of extremities reveal trace edema. Peripheral pulses are felt. LABS: Show a hemoglobin of 10, potassium is 5.2, creatinine is 0.8. TSH is low at 0.346. Will obtain T3 and T4. ASSESSMENT: 1. Paroxysmal atrial fibrillation. 2. Squamous cell carcinoma of left lung, status post resection and bronchoscopy. 3. Coronary artery disease, status post angioplasty. PLAN: I will continue the patient on current medications including the Lopressor, aspirin and Plavix, since the AFib was short and self-limited, she does not require any anticoagulation at this time. I will follow the echo and follow the thyroid function. MMODL / IJN: [id number] /
--- NOTE | 2017-09-18 12:24 | P.PN ---
Subjective Progress Note Date: 09/18/17 Principal diagnosis: Left upper lobe mass, status post robotic-assisted thorascopic left upper lobe lobectomy with mediastinal lymph node dissection. 66-year-old female patient with known history of COPD and FEV1 of 70% of predicted, was found to have a left upper lobe mass that showed intense uptake in the PET scan. Based on that, the patient was taken to surgery and she underwent a robotic-assisted thoracoscopy and left upper lobe resection with mediastinal lymph node dissection. The patient is postop day #4. On today's evaluation, the patient is still has a left-sided chest tube. The patient has a small amount of air leak on today's evaluation. The patient has drained approximately 75 mL of serosanguineous drainage overnight and to 30 ML's over the past 24 hours. The patient is able to continue using incentive spirometer and she is pulling up to 1000. She is on oxygen at 2 L/m nasal cannula. Hemodynamically stable. Surgical wound is dry clean and intact. No altered mentation. No chest pain. Pain is under good control for now. The chest x- ray that was done today showed a tiny 5-10% left apical pneumothorax. There is also a left lower lobe consolidation pleural effusion. There is stomach distention and there is also some periods emphysema along the left chest wall. On 09/11/2017 patient seen in follow-up on selective care unit. Today's chest x -ray showed 5-10% stable pneumothorax on the right, persistent marked distention of the gastric air bubble. Chest tube has been discontinued, patient continues to use her incentive spirometry. KUB x-ray was obtained, and showed massive distention of the gastric air bubble, and fecal impaction. Patient had a bowel movement last night, and again this morning. Abdomen is soft, and nontender. Pulse ox on 2 L per nasal cannula was 100%, her pulse ox with ambulation in the room was 96%, patient is comfortable, denies any dyspnea. Lung sounds are positive for diminished on the left compared to the right, though no rhonchi, no wheezes noted. On 09/12/2017 I'm seeing this patient for a follow-up. 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 Currently the patient is postop day #5. The left-sided chest tube has been removed. One concern was a significant gastric distention that was seen on the chest x-ray and abdominal films. The patient had some increased stool a combination within the large bowel for which the patient was given laxative with good results and the patient has been able to pass bowel movements. However, there was still concern of the large gastric distention that was seen and based on that a CAT scan of the abdomen and pelvis was done this afternoon that obviously showed postsurgical changes within the left lung. Specifically her was a tiny left- sided pneumothorax anteriorly and evidence of subcutaneous emphysema tracking down to the left flank area. The residual left lower lobe was well expanded. There was marked gastric distention and there was also segmental limitation and narrowing of the duodenum without any obstructions seen. No NG tube was inserted and the patient was still asymptomatic and she was able to pass bowel movements and she does not have any nausea or emesis. There was some prominent fluid-filled small bowel loops in the lower abdomen and pelvis that could also potentially present some ileus. The patient had rectal wall thickening beyond an area of anastomosis and sigmoid resection and there was some fecal material within the large bowel. Based on the radiologist's recommendations, there was a need for a EGD and colonoscopy to assess these abnormalities and investigate this findings further. Nevertheless, despite his ongoing changes, the patient is not acting any septic no she is behaving as having a bowel obstruction. No abdominal distention. No nausea or emesis. She is ambulating. She is currently on room air oxygen. On 09/13/2017 patient seen in follow-up on [facility] care unit. Abdomen/pelvis CT was obtained yesterday, showed marked gastric distention with segmental dilatation and narrowing of the duodenum. There was some prominent fluid- filled small bowel loops in the lower abdomen and possible ileus or enteritis. There was some rectal wall thickening And evidence of prior distal sigmoid resection and reanastomosis. Patient denies any nausea, or vomiting. She has been receiving Colace, Reglan, yesterday she received Dulcolax suppository, small results. There is still evidence of a large amount of stool in the large colon. GI service has been consulted, and is considering the patient for upper endoscopy today. Patient is currently nothing by mouth. She she has mild diffuse tenderness in the left upper quadrant To palpation. Today's labs were reviewed, and essentially unremarkable. Chest x-ray results from today was reviewed by Dr. Milan, and shows stable left apical pneumothorax post chest tube removal measuring 5-10%. Persistent distention of the gastric air bubble. From pulmonary standpoint patient denies any acute complaints, no dyspnea, she is compliant with her incentive spirometry, she has been ambulating. Pulse ox on 2 L per nasal cannula is 99%. Sounds are clear on the right, diminished over left lower lobe, wheezes, no rhonchi, no rales noted. The patient is seen again today 09/14/2017 in follow-up on the selective care unit. Postoperative day #7. She is currently awake and alert in no acute distress. She denies any worsening shortness of breath, cough or congestion. She is maintaining O2 saturations in the upper 90s on 2 L/m per nasal cannula. Today's chest x-ray continues to show persistent 5-10% left apical pneumothorax. Stable compared to previous. She did undergo EGD this morning and was found to have retained partially digested food in the stomach with no evidence of mechanical obstruction to the gastric outlet for any duodenal pathology. Consideration gastroparesis/ileus. Nasogastric tube remains in place. On today's evaluation of 09/15/2017, I'm seeing this patient for a follow-up. The patient is looking well. She is ambulating. Chest x-ray from today shows a small air-fluid level within the left upper lobe. I'm aware that the patient had a small loculated pneumothorax and on today's chest x-ray there is a small hydropneumothorax. I was asked to consider a thoracentesis on this patient. Ultrasound of the left chest showed no significant pleural fluid the cannulation and based on that I'm going to wait forthat the patient is doing well and the patient is on room air oxygen. She is tolerating her diet. She is ambulating. No NG tube insertion. No abdominal distention. No fever or chills. Surgical wound site is clean. No other significant events overnight and will continue to follow. 1 she is having issues with urinary retention and the patient be asked to be seen by urology. The urinary catheter was taken out yesterday and we are monitoring the post void residual. On units in this patient for a follow-up. The chest x-ray shows further opacification of the left lung along with a small air-fluid levels in the left apical area. Left hemidiaphragm remains elevated and the stomach is less distended. Based on all this, CAT scan of the chest was requested that was done without contrast and the patient has a small pneumothorax in the left apex estimated to be less than 5% of the total lung volume. There is a small to moderate-sized pleural effusion which is loculated anteriorly and posteriorly. There is obviously an area of hydropneumothorax. In addition, the left lower lobe was quite opacified and there is extensive consolidation which raises the concern for pneumonia within the left lung. There is obvious volume loss and shift at least on structures of the left. Despite all this, the patient remains on room air. No significant fever. No chills. No nausea or vomiting. No abdominal pain. No other complaints otherwise for now. On 09/17/2017, I evaluated the patient, and evaluated her chest x-ray and CT of the chest, patient apparently developed complete opacification of the left lung. I tried to schedule the patient for bronchoscopy now, however the patient already ate, and we'll try to schedule the bronchoscopy most likely in the next 24 hours. Seems to be a picture of mucous plugging involving the left mainstem bronchus. Patient will need to be bronchoscoped, and most likely extract mucous plugs and lavage of the left lung will be done. Surprisingly the patient is not in much respiratory distress. WBC count is 4.6 hemoglobin is 10.2 basic metabolic profile is normal. The patient is seen today 09/18/2017 in follow-up on the selective care unit. She remains awake and alert in no acute distress. She is maintaining good O2 saturations in the 90s on room air. She's been afebrile. White count 12.7. Chest x-ray continues to show near complete opacification of the left lung. The plan is for bronchoscopy by Dr. Borja this morning. Objective - Vital Signs Vital signs: Vital Signs Temp 97.3 F L 09/18/17 08:00 Pulse 112 H 09/18/17 12:10 Resp 18 09/18/17 08:00 BP 99/54 09/18/17 08:00 Pulse Ox 94 L 09/18/17 08:00 Intake & Output 09/17/17 09/18/17 09/18/17 18:59 06:59 18:59 Intake Total 840 502.916 200 Output Total 350 Balance 840 152.916 200 Weight 59 kg Intake: IV 40 200 0.9 40 Intake, IV Titration 100 22.916 Amount Diltiazem 50 mg In Sodium 22.916 Chloride 0.9% 40 ml @ 10 MG/HR 10 mls/hr IV .Q5H REY Rx#:[id number] Piperacillin-Tazobactam 3 100 .375 gm In Dextrose/Water 1 50ml.bag @ 12.5 mls/hr IVPB Q8HR REY Rx#: [id number] Oral 700 480 Output: Urine 350 Other: Voiding Method Toilet Toilet # Voids 2 - Exam Gen. appearance the patient is calm comfortable likely distress Head exam was generally normal. There was no scleral icterus or corneal arcus. Mucous membranes were moist. . Neck was supple and without jugular venous distension, thyromegaly, or carotid bruits. Carotids were easily palpable bilaterally. There was no adenopathy. Lungs sounds are diminished on the left compared to the right. The patient also has a subcutaneous emphysema along the left lateral chest. Chest tube has been discontinued Cardiac exam revealed the PMI to be normally situated and sized. The rhythm was regular and no extrasystoles were noted during several minutes of auscultation. The first and second heart sounds were normal and physiologic splitting of the second heart sound was noted. There were no murmurs, rubs, clicks, or gallops. Abdominal exam revealed normal bowel sounds. The abdomen was soft, non-tender, and without masses, organomegaly, or appreciable enlargement of the abdominal aorta. Examination of the extremities revealed easily palpable radial, femoral and pedal pulses. There was no cyanosis, clubbing or edema. Examination of the skin revealed no evidence of significant rashes, suspicious appearing nevi or other concerning lesions. Neurologically the patient is awake and alert and there is no focal neurological deficits. - Labs CBC & Chem 7: 09/18/17 05:51 09/18/17 05:51 Labs: Abnormal Lab Results - Last 24 Hours (Table) 09/17/17 09/17/17 09/17/17 Range/Units 16:35 21:21 21:42 WBC (3.8-10.6) k/uL RBC (3.80-5.40) m/uL Hgb (11.4-16.0) gm/dL Hct (34.0-46.0) % Neutrophils # (1.3-7.7) k/uL Lymphocytes # (1.0-4.8) k/uL Sodium (137-145) mmol/L Potassium (3.5-5.1) mmol/L Chloride (98-107) mmol/L Glucose (74-99) mg/dL POC Glucose (mg/dL) 139 H 42 L 44 L (75-99) mg/dL Hemoglobin A1c (4.0-6.0) % Calcium (8.4-10.2) mg/dL TSH (0.465-4.680) mIU/L 09/17/17 09/17/17 09/17/17 Range/Units 22:00 22:22 23:01 WBC (3.8-10.6) k/uL RBC (3.80-5.40) m/uL Hgb (11.4-16.0) gm/dL Hct (34.0-46.0) % Neutrophils # (1.3-7.7) k/uL Lymphocytes # (1.0-4.8) k/uL Sodium (137-145) mmol/L Potassium (3.5-5.1) mmol/L Chloride (98-107) mmol/L Glucose (74-99) mg/dL POC Glucose (mg/dL) 51 L 59 L 180 H (75-99) mg/dL Hemoglobin A1c (4.0-6.0) % Calcium (8.4-10.2) mg/dL TSH (0.465-4.680) mIU/L 09/18/17 09/18/17 09/18/17 Range/Units 01:47 02:09 05:51 WBC (3.8-10.6) k/uL RBC (3.80-5.40) m/uL Hgb (11.4-16.0) gm/dL Hct (34.0-46.0) % Neutrophils # (1.3-7.7) k/uL Lymphocytes # (1.0-4.8) k/uL Sodium (137-145) mmol/L Potassium (3.5-5.1) mmol/L Chloride (98-107) mmol/L Glucose (74-99) mg/dL POC Glucose (mg/dL) 284 H 291 H (75-99) mg/dL Hemoglobin A1c 11.6 H (4.0-6.0) % Calcium (8.4-10.2) mg/dL TSH (0.465-4.680) mIU/L 09/18/17 09/18/17 09/18/17 Range/Units 05:51 05:51 05:51 WBC 12.7 H (3.8-10.6) k/uL RBC 3.50 L (3.80-5.40) m/uL Hgb 10.0 L (11.4-16.0) gm/dL Hct 32.2 L (34.0-46.0) % Neutrophils # 11.0 H (1.3-7.7) k/uL Lymphocytes # 0.8 L (1.0-4.8) k/uL Sodium 133 L (137-145) mmol/L Potassium 5.2 H (3.5-5.1) mmol/L Chloride 95 L (98-107) mmol/L Glucose 343 H (74-99) mg/dL POC Glucose (mg/dL) (75-99) mg/dL Hemoglobin A1c (4.0-6.0) % Calcium 8.3 L (8.4-10.2) mg/dL TSH 0.346 L (0.465-4.680) mIU/L 09/18/17 09/18/17 Range/Units 06:02 11:35 WBC (3.8-10.6) k/uL RBC (3.80-5.40) m/uL Hgb (11.4-16.0) gm/dL Hct (34.0-46.0) % Neutrophils # (1.3-7.7) k/uL Lymphocytes # (1.0-4.8) k/uL Sodium (137-145) mmol/L Potassium (3.5-5.1) mmol/L Chloride (98-107) mmol/L Glucose (74-99) mg/dL POC Glucose (mg/dL) 348 H 235 H (75-99) mg/dL Hemoglobin A1c (4.0-6.0) % Calcium (8.4-10.2) mg/dL TSH (0.465-4.680) mIU/L Assessment and Plan Assessment: Assessment: 1 robotic-assisted thoracoscopic left upper lobe lobectomy with mediastinal lymph node dissection for a left upper lobe mass. 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 The patient has developed near complete opacification of the left lung. The plan is for bronchoscopy today. 2 COPD at baseline with an FEV1 of 70% of predicted preoperatively 3 left hemidiaphragmatic elevation following a left upper lobe resection. This could be related to volume loss/lobectomy. At the same and the patient has some gastric distention, a symptomatically at this stage. 4 abdominal distention and discomfort secondary to suspected gastroparesis/ ileus. EGD revealed retained partially digested food in the stomach with no evidence of mechanical obstruction to the gastric outlet. 5 hypothyroidism 6 diabetes mellitus 7 history of ITP 8 history of smoking currently in remission 9 coronary artery disease with previous history of coronary intervention and stenting Plan: The patient was seen and evaluated by Dr. Borja Chest x-ray and labs were reviewed. The plan is for bronchoscopy today. We will continue with her current pulmonary medications. Increase her activity as tolerated. We'll continue to follow. I, the cosigning physician, performed a history & physical examination of the patient. Lungs sounds with few scattered rhonchi more so on the left, significantly diminished on the left. Maintaining good O2 saturations in the 90s on room air. I discussed the assessment and plan of care with my nurse practitioner, Gaye Tsang. I attest to the above note as dictated by her.
[2017-09-18] MEDS: DEXAMETHASONE SOD PHOSPHATE 4 MG/ML 1 ML VIAL IV SCH ×3 (12:55→23:37)
[2017-09-18 14:37] LABS: Appearance,BF Bloody; Color,BF Red; Nucleated Cells, Body Fluid 800 /uL; RBC, Body Fluid 20320 /uL
[2017-09-18 14:39] LABS: Mononuclear WBC,Body Fluid 7 %; Polynuclear WBC,Body Fluid 93 %; Total Cells Counted,Body Fluid 100
[2017-09-18] MEDS: ACETAMINOPHEN TAB 325 MG TAB PO PRN (15:30)
[2017-09-18] MEDS: guaiFENesin SYRUP 100MG/5ML 200 MG/10 ML CUP PO PRN ×2 (15:32→21:52)
[2017-09-18 17:14] LABS: Glucose,Whole Blood 272 mg/dL (75-99)
--- NOTE | 2017-09-18 18:31 | P.PN ---
Subjective This is a pleasant 66 years old female with past medical history of diabetes mellitus, fibromyalgia, GERD, idiopathic thrombocytopenia purpura, IBS, diverticulitis, herniated disc at L3-L4, restless leg syndrome lung cancer stage I with left upper lobe mass. Patient originally came in with shortness of breath for COPD exacerbation suspicion she got CAT scan which found to have left upper lobe mass last surgery was small but deep in the lung parenchyma. Lobectomy was recommended by the surgeon which the patient had on 09/06/2017. Patient had CT of the abdomen and pelvis on 09/12/2017 showing the stomach is markedly distended and rectal wall. GI team were consulted and recommended NG tube followed by EGD: No mechanical obstruction of the stomach outlet and patient was diagnosed for possible gastroparesis. Also they recommended outpatient colonoscopy. Chest x-ray from today showed left lung opacification with elevation of the left hemidiaphragm. CT of the chest without contrast: Showed hydropneumothorax with 5% pneumothorax of the appendix and small to moderate pleural effusion, and possible mucous plug of the left main bronchus with severe consolidation and COPD Subjective Patient cough is improving with medication, with less abdominal pain ,pt remains generally weak Objective - Vital Signs Vital signs: Vital Signs Temp 98.1 F 09/18/17 12:00 Pulse 111 H 09/18/17 16:01 Resp 18 09/18/17 12:00 BP 143/63 09/18/17 12:00 Pulse Ox 94 L 09/18/17 08:00 Intake & Output 09/17/17 09/18/17 09/18/17 18:59 06:59 18:59 Intake Total 840 502.916 300 Output Total 350 600 Balance 840 152.916 -300 Weight 59 kg Intake: IV 40 200 0.9 40 Intake, IV Titration 100 22.916 Amount Diltiazem 50 mg In Sodium 22.916 Chloride 0.9% 40 ml @ 10 MG/HR 10 mls/hr IV .Q5H [facility] Rx#:[id number] Piperacillin-Tazobactam 3 100 .375 gm In Dextrose/Water 1 50ml.bag @ 12.5 mls/hr IVPB Q8HR [facility] Rx#: [id number] Oral 700 480 100 Output: Urine 350 600 Other: Voiding Method Toilet Toilet # Voids 2 2 - Exam -GENERAL: The patient is alert and oriented x3, in respiratory distress due to cough and pain at the surgery site. No tachypnea. Well developed, well nourished. HEENT: Pupils are round and equally reacting to light. EOMI. No scleral icterus. No conjunctival pallor. Normocephalic, atraumatic. No pharyngeal erythema. No thyromegaly. CARDIOVASCULAR: S1 and S2 present. No murmurs, rubs, or gallops. -PULMONARY: Chest has some crackles on the left side with decreased breath sounds, no wheezing ABDOMEN: Soft, nontender, nondistended, normoactive bowel sounds. No palpable organomegaly. MUSCULOSKELETAL: No joint swelling or deformity. EXTREMITIES: No cyanosis, clubbing, or pedal edema. NEUROLOGICAL: Gross neurological examination did not reveal any focal deficits. SKIN: No rashes. - Labs CBC & Chem 7: 09/18/17 05:51 09/18/17 05:51 Labs: Abnormal Lab Results - Last 24 Hours (Table) 09/17/17 09/17/17 09/17/17 Range/Units 21:21 21:42 22:00 WBC (3.8-10.6) k/uL RBC (3.80-5.40) m/uL Hgb (11.4-16.0) gm/dL Hct (34.0-46.0) % Neutrophils # (1.3-7.7) k/uL Lymphocytes # (1.0-4.8) k/uL Sodium (137-145) mmol/L Potassium (3.5-5.1) mmol/L Chloride (98-107) mmol/L Glucose (74-99) mg/dL POC Glucose (mg/dL) 42 L 44 L 51 L (75-99) mg/dL Hemoglobin A1c (4.0-6.0) % Calcium (8.4-10.2) mg/dL TSH (0.465-4.680) mIU/L 09/17/17 09/17/17 09/18/17 Range/Units 22:22 23:01 01:47 WBC (3.8-10.6) k/uL RBC (3.80-5.40) m/uL Hgb (11.4-16.0) gm/dL Hct (34.0-46.0) % Neutrophils # (1.3-7.7) k/uL Lymphocytes # (1.0-4.8) k/uL Sodium (137-145) mmol/L Potassium (3.5-5.1) mmol/L Chloride (98-107) mmol/L Glucose (74-99) mg/dL POC Glucose (mg/dL) 59 L 180 H 284 H (75-99) mg/dL Hemoglobin A1c (4.0-6.0) % Calcium (8.4-10.2) mg/dL TSH (0.465-4.680) mIU/L 09/18/17 09/18/17 09/18/17 Range/Units 02:09 05:51 05:51 WBC 12.7 H (3.8-10.6) k/uL RBC 3.50 L (3.80-5.40) m/uL Hgb 10.0 L (11.4-16.0) gm/dL Hct 32.2 L (34.0-46.0) % Neutrophils # 11.0 H (1.3-7.7) k/uL Lymphocytes # 0.8 L (1.0-4.8) k/uL Sodium (137-145) mmol/L Potassium (3.5-5.1) mmol/L Chloride (98-107) mmol/L Glucose (74-99) mg/dL POC Glucose (mg/dL) 291 H (75-99) mg/dL Hemoglobin A1c 11.6 H (4.0-6.0) % Calcium (8.4-10.2) mg/dL TSH (0.465-4.680) mIU/L 09/18/17 09/18/17 09/18/17 Range/Units 05:51 05:51 06:02 WBC (3.8-10.6) k/uL RBC (3.80-5.40) m/uL Hgb (11.4-16.0) gm/dL Hct (34.0-46.0) % Neutrophils # (1.3-7.7) k/uL Lymphocytes # (1.0-4.8) k/uL Sodium 133 L (137-145) mmol/L Potassium 5.2 H (3.5-5.1) mmol/L Chloride 95 L (98-107) mmol/L Glucose 343 H (74-99) mg/dL POC Glucose (mg/dL) 348 H (75-99) mg/dL Hemoglobin A1c (4.0-6.0) % Calcium 8.3 L (8.4-10.2) mg/dL TSH 0.346 L (0.465-4.680) mIU/L 09/18/17 09/18/17 Range/Units 11:35 17:02 WBC (3.8-10.6) k/uL RBC (3.80-5.40) m/uL Hgb (11.4-16.0) gm/dL Hct (34.0-46.0) % Neutrophils # (1.3-7.7) k/uL Lymphocytes # (1.0-4.8) k/uL Sodium (137-145) mmol/L Potassium (3.5-5.1) mmol/L Chloride (98-107) mmol/L Glucose (74-99) mg/dL POC Glucose (mg/dL) 235 H 272 H (75-99) mg/dL Hemoglobin A1c (4.0-6.0) % Calcium (8.4-10.2) mg/dL TSH (0.465-4.680) mIU/L Assessment and Plan Plan: -Left upper lobe mass. Lung cancer stage I. Status post lobectomy. Pulmonary/ intensive care unit specialist and thoracic surgeon on the case. -Possible left pneumonia. Chest x-ray shows consolidations of the left lung. Mild leukocytosis. Patient started on IV Zosyn and follow-up chest x-ray the morning with possible need for bronchoscopy as per pulmonary team with R following the case. Thoracic surgeon also follow seeing the patient -Gastroparesis. GI following the patient. Continue with conservative treatment. -Rectal wall thickening. GI consult is noted-and they recommended outpatient colonoscopy -Urinary retention and incomplete emptying. Neurologist evaluation is noted. ditropan was DC'd. This was placed for straight cath also -Possible UTI, UC showing Rosa Maria. continue with Zosyn and Diflucan -Abnormal liver function test, follow-up level -Diabetes mellitus continue with Levemir 20 units DVT prophylaxis on heparin GI prophylaxis Protonix Prognosis is guarded
[2017-09-18 20:53] LABS: Glucose,Whole Blood 305 mg/dL (75-99)
[2017-09-18] MEDS: INSULIN DETEMIR 100 UNIT/ML 10 ML VIAL SQ SCH (21:41)
[2017-09-18 23:26] LABS: Glucose,Whole Blood 341 mg/dL (75-99)
[2017-09-19 05:58] LABS: Glucose,Whole Blood 251 mg/dL (75-99)
[2017-09-19] MEDS ORDERED: CLOPIDOGREL 75 MG TAB ONE (06:00)
[2017-09-19] MEDS ORDERED: DOCUSATE 100 MG CAP ONE (06:00)
[2017-09-19] MEDS ORDERED: METOPROLOL TARTRATE 25 MG TAB ONE (06:00)
[2017-09-19] MEDS ORDERED: ASPIRIN 81 MG ONE (06:00)
[2017-09-19] MEDS ORDERED: LISINOPRIL 5 MG TAB ONE (06:00)
[2017-09-19] MEDS ORDERED: FLUCONAZOLE 100 MG TAB ONE (06:00)
[2017-09-19] MEDS ORDERED: BUDESONIDE 1 MG/2 ML NEBU INHALATION ONE (06:00)
[2017-09-19] MEDS ORDERED: ALPRAZolam 0.25 MG TAB ONE (06:00)
[2017-09-19] MEDS ORDERED: METOCLOPRAMIDE 5 MG/ML 2 ML VIAL ONE (06:00)
[2017-09-19] MEDS ORDERED: guaiFENesin SYRUP 100MG/5ML 200 MG/10 ML CUP ONE (06:00)
[2017-09-19] MEDS ORDERED: FORMOTEROL FUMARATE 20 MCG/2 ML NEBU INHALATION ONE (06:00)
[2017-09-19] MEDS ORDERED: ATORVASTATIN 80 MG TAB ONE (06:00)
[2017-09-19] MEDS ORDERED: INSULIN ASPART 100 UNIT/ML 1 ML 10 ML VIAL SQ ONE ×2 (06:00→15:25)
[2017-09-19] MEDS ORDERED: TAMSULOSIN 0.4 MG CAP.ER.24H PO ONE (06:00)
[2017-09-19] MEDS ORDERED: DEXAMETHASONE SOD PHOSPHATE 4 MG/ML 1 ML VIAL ONE (06:00)
[2017-09-19] MEDS ORDERED: IPRATROPIUM-ALBUTEROL 3 ML NEB ONE (06:00)
[2017-09-19] MEDS ORDERED: PANTOPRAZOLE 40 MG/10 ML VIAL ONE (06:00)
[2017-09-19] MEDS ORDERED: HEPARIN SODIUM,PORCINE 5,000 UNIT/ML 1 ML VIAL ONE (06:00)
[2017-09-19 07:59] LABS: Basophils % (A) 0 %; Eosinophils % (A) 0 %; HCT 36.6 % (34.0-46.0); HGB 11.3 gm/dL (11.4-16.0); Hypochromasia Slight; Lymphocytes # (A) 0.9 k/uL (1.0-4.8); Lymphocytes % (A) 8 %; MCH 28.1 pg (25.0-35.0); MCHC 30.9 g/dL (31.0-37.0); MCV 90.7 fL (80.0-100.0); Mean Platelet Volume 7.4; Monocytes # (A) 0.5 k/uL (0-1.0); Monocytes % (A) 5 %; Neutrophils # (A) 9.3 k/uL (1.3-7.7); Neutrophils % (A) 86 %; Platelet Count 483 k/uL (150-450); RBC 4.04 m/uL (3.80-5.40); RDW 14.2 % (11.5-15.5); WBC 10.8 k/uL (3.8-10.6)
[2017-09-19 09:02] LABS: Anion Gap 17 mmol/L; Blood Urea Nitrogen 14 mg/dL (7-17); Calcium 8.8 mg/dL (8.4-10.2); Carbon Dioxide 21 mmol/L (22-30); Chloride 102 mmol/L (98-107); Glucose 256 mg/dL (74-99); Sodium 140 mmol/L (137-145)
--- NOTE | 2017-09-19 10:42 | XR ---
EXAMINATION TYPE: XR chest 1V portable DATE OF EXAM: 09/19/2017 COMPARISON: Prior chest x-ray 09/18/2017 HISTORY: Postop left upper lobectomy TECHNIQUE: Single frontal view of the chest is obtained. FINDINGS: Findings are stable. IMPRESSION: Postop changes. Near-complete opacification left hemithorax with volume loss.
--- NOTE | 2017-09-19 11:05 | P.PN ---
Subjective Progress Note Date: 09/19/17 Principal diagnosis: Left upper lobe mass. Medical history of coronary artery disease with recent stenting of the left anterior descending coronary artery in December 2016, perforated gastric ulcer with exploratory laparotomy, ITP, hypothyroid, diabetes mellitus type 2, previous tobacco dependence. POD #12 robotic assisted thoracoscopic left upper lobectomy with mediastinal lymph node dissection and fiberoptic bronchoscopy with clearance of mucous plug , pathology demonstrating squamous cell carcinoma. Gastroparesis, an unexpected but potential outcome given the patient's long- standing history of diabetes. POD #[address] Calderón. POD #1 bronchoscopy, endobronchial brushings of the distal mainstem bronchus, endobronchial biopsy of the distal left mainstem bronchus and washings of the distal left mainstem bronchus. Postoperative left pleural effusion, an unexpected but potential outcome of surgery. Postoperative urinary retention with incomplete bladder emptying, history of long-standing diabetes mellitus. Postoperative elevation of her left hemidiaphragm, and unexpected but potential outcome of surgery. Patient's currently laying in bed in no acute distress. Patient does complain of some abdominal cramping, shortness of breath with exertion. Objective - Vital Signs Vital signs: Vital Signs Temp 98.0 F 09/19/17 00:10 Pulse 79 09/19/17 02:35 Resp 18 09/19/17 02:35 BP 122/56 09/19/17 00:10 Pulse Ox 92 L 09/19/17 00:10 Intake & Output 09/18/17 09/19/17 09/19/17 18:59 06:59 18:59 Intake Total 500 290 Output Total 600 Balance -100 290 Intake: IV 200 Intake, IV Titration 50 Amount Piperacillin-Tazobactam 3 50 .375 gm In Dextrose/Water 1 50ml.bag @ 12.5 mls/hr IVPB Q8HR [facility] Rx#: [id number] Oral 300 240 Output: Urine 600 Other: Voiding Method Toilet # Voids 2 2 - Constitutional General appearance: Present: cooperative, no acute distress - Respiratory Details: Lungs sounds very diminished on the left. Respirations even, nonlabored. Currently on room air with oxygen saturation 92%. Able to achieve 750 mL on incentive spirometry. - Cardiovascular Details: S1, S2 present. Regular rate and rhythm, sinus rhythm on telemetry. Palpable peripheral pulses bilaterally. No edema present. No calf pain or tenderness noted. SCDs present. - Gastrointestinal Gastrointestinal Comment(s): Abdomen soft, tender, nondistended. Active bowel sounds 4 quadrants. Tolerating diet. - Genitourinary Genitourinary Comment(s): Continues to void clear, yellow urine. - Integumentary Integumentary Comment(s): Skin is warm and dry with evidence of good perfusion. Left lateral wall incisions well approximated. - Neurologic Neurologic: Present: CNII-XII intact - Musculoskeletal Musculoskeletal: Present: gait normal, strength equal bilaterally - Psychiatric Psychiatric: Present: A&O x's 3, appropriate affect, intact judgment & insight - Labs CBC & Chem 7: 09/19/17 06:00 09/18/17 05:51 Labs: Abnormal Lab Results - Last 24 Hours (Table) 09/18/17 09/18/17 09/18/17 Range/Units 05:51 11:35 17:02 WBC (3.8-10.6) k/uL Hgb (11.4-16.0) gm/dL MCHC (31.0-37.0) g/dL Plt Count (150-450) k/uL Neutrophils # (1.3-7.7) k/uL Lymphocytes # (1.0-4.8) k/uL POC Glucose (mg/dL) 235 H 272 H (75-99) mg/dL Hemoglobin A1c 11.6 H (4.0-6.0) % 09/18/17 09/18/17 09/19/17 Range/Units 20:51 23:25 05:56 WBC (3.8-10.6) k/uL Hgb (11.4-16.0) gm/dL MCHC (31.0-37.0) g/dL Plt Count (150-450) k/uL Neutrophils # (1.3-7.7) k/uL Lymphocytes # (1.0-4.8) k/uL POC Glucose (mg/dL) 305 H 341 H 251 H (75-99) mg/dL Hemoglobin A1c (4.0-6.0) % 09/19/17 Range/Units 06:00 WBC 10.8 H (3.8-10.6) k/uL Hgb 11.3 L (11.4-16.0) gm/dL MCHC 30.9 L (31.0-37.0) g/dL Plt Count 483 H (150-450) k/uL Neutrophils # 9.3 H (1.3-7.7) k/uL Lymphocytes # 0.9 L (1.0-4.8) k/uL POC Glucose (mg/dL) (75-99) mg/dL Hemoglobin A1c (4.0-6.0) % Microbiology - Last 24 Hours (Table) 09/18/17 11:00 Acid Fast Bacilli Smear - Final Bronchoalviolar Lavage - Left Acid Fast Bacilli Culture - Preliminary 09/18/17 11:00 Gram Stain - Preliminary Bronchoalviolar Lavage - Left Bronchial Washings Culture - Preliminary 09/18/17 11:00 Fungal Culture - Preliminary Bronchoalviolar Lavage - Left - Imaging and Cardiology Chest x-ray: report reviewed, image reviewed Assessment and Plan (1) Mass of upper lobe of left lung Current Visit: Yes Status: Acute Code(s): R91.8 - OTHER NONSPECIFIC ABNORMAL FINDING OF LUNG FIELD SNOMED Code(s): 405228003 (2) Coronary artery disease Current Visit: Yes Status: Chronic Code(s): I25.10 - ATHSCL HEART DISEASE OF [place] CORONARY ARTERY W/O ANG PCTRS SNOMED Code(s): 91761642 (3) History of heart artery stent Current Visit: Yes Status: Chronic Code(s): Z95.5 - PRESENCE OF CORONARY ANGIOPLASTY IMPLANT AND GRAFT SNOMED Code(s): 840968627 (4) Hypothyroid Current Visit: Yes Status: Chronic Code(s): E03.9 - HYPOTHYROIDISM, UNSPECIFIED SNOMED Code(s): 06111917 (5) Diabetes mellitus Current Visit: Yes Status: Chronic Code(s): E11.9 - TYPE 2 DIABETES MELLITUS WITHOUT COMPLICATIONS SNOMED Code(s): 88396807 (6) Tobacco dependence in remission Current Visit: Yes Status: Resolved Code(s): F17.201 - NICOTINE DEPENDENCE, UNSPECIFIED, IN REMISSION SNOMED Code(s): 690553516 (7) History of gastric ulcer Current Visit: Yes Status: Resolved Code(s): Z87.19 - PERSONAL HISTORY OF OTHER DISEASES OF THE DIGESTIVE SYSTEM SNOMED Code(s): 487989109 (8) History of ITP Current Visit: Yes Status: Resolved Priority: Medium Code(s): Z86.2 - PRSNL HISTORY OF DIS OF THE BLD/BLD-FORM ORG/IMMUN [facility] SNOMED Code(s): 064321109 Plan: 1. Encourage incentive spirometry use 10 times every hour. Patient needs aggressive pulmonary toileting. 2. Continue Reglan for gastroparesis. 3. Encourage continued smoking cessation. 4. Bronchodilators per pulmonology. 5. Pain control with ordered medication regimen. 6. GI/DVT prophylaxis. 7. Increase activity, ambulate in hallway. PT/OT following. 8. Continue Diflucan for Rosa Maria in her urine, continue Zosyn per pulmonology. 9. Continue Flomax per urology. 10. Continue current home medication regimen. 11. NPO after midnight for bronchoscopy tomorrow by Dr. Jules. Time with Patient: Greater than 30
--- NOTE | 2017-09-19 11:07 | P.PN ---
Subjective Progress Note Date: 09/19/17 Principal diagnosis: Left upper lobe mass, status post robotic-assisted thorascopic left upper lobe lobectomy with mediastinal lymph node dissection. 66-year-old female patient with known history of COPD and FEV1 of 70% of predicted, was found to have a left upper lobe mass that showed intense uptake in the PET scan. Based on that, the patient was taken to surgery and she underwent a robotic-assisted thoracoscopy and left upper lobe resection with mediastinal lymph node dissection. The patient is postop day #4. On today's evaluation, the patient is still has a left-sided chest tube. The patient has a small amount of air leak on today's evaluation. The patient has drained approximately 75 mL of serosanguineous drainage overnight and to 30 ML's over the past 24 hours. The patient is able to continue using incentive spirometer and she is pulling up to 1000. She is on oxygen at 2 L/m nasal cannula. Hemodynamically stable. Surgical wound is dry clean and intact. No altered mentation. No chest pain. Pain is under good control for now. The chest x- ray that was done today showed a tiny 5-10% left apical pneumothorax. There is also a left lower lobe consolidation pleural effusion. There is stomach distention and there is also some periods emphysema along the left chest wall. On 09/11/2017 patient seen in follow-up on selective care unit. Today's chest x -ray showed 5-10% stable pneumothorax on the right, persistent marked distention of the gastric air bubble. Chest tube has been discontinued, patient continues to use her incentive spirometry. KUB x-ray was obtained, and showed massive distention of the gastric air bubble, and fecal impaction. Patient had a bowel movement last night, and again this morning. Abdomen is soft, and nontender. Pulse ox on 2 L per nasal cannula was 100%, her pulse ox with ambulation in the room was 96%, patient is comfortable, denies any dyspnea. Lung sounds are positive for diminished on the left compared to the right, though no rhonchi, no wheezes noted. On 09/12/2017 I'm seeing this patient for a follow-up. 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 Currently the patient is postop day #5. The left-sided chest tube has been removed. One concern was a significant gastric distention that was seen on the chest x-ray and abdominal films. The patient had some increased stool a combination within the large bowel for which the patient was given laxative with good results and the patient has been able to pass bowel movements. However, there was still concern of the large gastric distention that was seen and based on that a CAT scan of the abdomen and pelvis was done this afternoon that obviously showed postsurgical changes within the left lung. Specifically her was a tiny left- sided pneumothorax anteriorly and evidence of subcutaneous emphysema tracking down to the left flank area. The residual left lower lobe was well expanded. There was marked gastric distention and there was also segmental limitation and narrowing of the duodenum without any obstructions seen. No NG tube was inserted and the patient was still asymptomatic and she was able to pass bowel movements and she does not have any nausea or emesis. There was some prominent fluid-filled small bowel loops in the lower abdomen and pelvis that could also potentially present some ileus. The patient had rectal wall thickening beyond an area of anastomosis and sigmoid resection and there was some fecal material within the large bowel. Based on the radiologist's recommendations, there was a need for a EGD and colonoscopy to assess these abnormalities and investigate this findings further. Nevertheless, despite his ongoing changes, the patient is not acting any septic no she is behaving as having a bowel obstruction. No abdominal distention. No nausea or emesis. She is ambulating. She is currently on room air oxygen. On 09/13/2017 patient seen in follow-up on [facility] care unit. Abdomen/pelvis CT was obtained yesterday, showed marked gastric distention with segmental dilatation and narrowing of the duodenum. There was some prominent fluid- filled small bowel loops in the lower abdomen and possible ileus or enteritis. There was some rectal wall thickening And evidence of prior distal sigmoid resection and reanastomosis. Patient denies any nausea, or vomiting. She has been receiving Colace, Reglan, yesterday she received Dulcolax suppository, small results. There is still evidence of a large amount of stool in the large colon. GI service has been consulted, and is considering the patient for upper endoscopy today. Patient is currently nothing by mouth. She she has mild diffuse tenderness in the left upper quadrant To palpation. Today's labs were reviewed, and essentially unremarkable. Chest x-ray results from today was reviewed by Dr. Milan, and shows stable left apical pneumothorax post chest tube removal measuring 5-10%. Persistent distention of the gastric air bubble. From pulmonary standpoint patient denies any acute complaints, no dyspnea, she is compliant with her incentive spirometry, she has been ambulating. Pulse ox on 2 L per nasal cannula is 99%. Sounds are clear on the right, diminished over left lower lobe, wheezes, no rhonchi, no rales noted. The patient is seen again today 09/14/2017 in follow-up on the selective care unit. Postoperative day #7. She is currently awake and alert in no acute distress. She denies any worsening shortness of breath, cough or congestion. She is maintaining O2 saturations in the upper 90s on 2 L/m per nasal cannula. Today's chest x-ray continues to show persistent 5-10% left apical pneumothorax. Stable compared to previous. She did undergo EGD this morning and was found to have retained partially digested food in the stomach with no evidence of mechanical obstruction to the gastric outlet for any duodenal pathology. Consideration gastroparesis/ileus. Nasogastric tube remains in place. On today's evaluation of 09/15/2017, I'm seeing this patient for a follow-up. The patient is looking well. She is ambulating. Chest x-ray from today shows a small air-fluid level within the left upper lobe. I'm aware that the patient had a small loculated pneumothorax and on today's chest x-ray there is a small hydropneumothorax. I was asked to consider a thoracentesis on this patient. Ultrasound of the left chest showed no significant pleural fluid the cannulation and based on that I'm going to wait forthat the patient is doing well and the patient is on room air oxygen. She is tolerating her diet. She is ambulating. No NG tube insertion. No abdominal distention. No fever or chills. Surgical wound site is clean. No other significant events overnight and will continue to follow. 1 she is having issues with urinary retention and the patient be asked to be seen by urology. The urinary catheter was taken out yesterday and we are monitoring the post void residual. On units in this patient for a follow-up. The chest x-ray shows further opacification of the left lung along with a small air-fluid levels in the left apical area. Left hemidiaphragm remains elevated and the stomach is less distended. Based on all this, CAT scan of the chest was requested that was done without contrast and the patient has a small pneumothorax in the left apex estimated to be less than 5% of the total lung volume. There is a small to moderate-sized pleural effusion which is loculated anteriorly and posteriorly. There is obviously an area of hydropneumothorax. In addition, the left lower lobe was quite opacified and there is extensive consolidation which raises the concern for pneumonia within the left lung. There is obvious volume loss and shift at least on structures of the left. Despite all this, the patient remains on room air. No significant fever. No chills. No nausea or vomiting. No abdominal pain. No other complaints otherwise for now. On 09/17/2017, I evaluated the patient, and evaluated her chest x-ray and CT of the chest, patient apparently developed complete opacification of the left lung. I tried to schedule the patient for bronchoscopy now, however the patient already ate, and we'll try to schedule the bronchoscopy most likely in the next 24 hours. Seems to be a picture of mucous plugging involving the left mainstem bronchus. Patient will need to be bronchoscoped, and most likely extract mucous plugs and lavage of the left lung will be done. Surprisingly the patient is not in much respiratory distress. WBC count is 4.6 hemoglobin is 10.2 basic metabolic profile is normal. The patient is seen today 09/18/2017 in follow-up on the selective care unit. She remains awake and alert in no acute distress. She is maintaining good O2 saturations in the 90s on room air. She's been afebrile. White count 12.7. Chest x-ray continues to show near complete opacification of the left lung. The plan is for bronchoscopy by Dr. Borja this morning. The patient is seen again today 09/19/2017 in follow-up on the selective care unit. She is currently ambulating in the hallway. She is in no acute distress. She is maintaining good O2 saturations in the 90s on room air. She' s been afebrile. Hemodynamically stable. Today's chest x-ray continues to show near complete opacification of the left hemithorax with volume loss. White count 10.8. Preliminary bronchial wash cultures reveal no growth. She is continued on Zosyn, bronchodilators and Decadron. Objective - Vital Signs Vital signs: Vital Signs Temp 98.0 F 09/19/17 00:10 Pulse 79 09/19/17 02:35 Resp 18 09/19/17 02:35 BP 122/56 09/19/17 00:10 Pulse Ox 92 L 09/19/17 00:10 Intake & Output 09/18/17 09/19/17 09/19/17 18:59 06:59 18:59 Intake Total 500 290 Output Total 600 Balance -100 290 Intake: IV 200 Intake, IV Titration 50 Amount Piperacillin-Tazobactam 3 50 .375 gm In Dextrose/Water 1 50ml.bag @ 12.5 mls/hr IVPB Q8HR [facility] Rx#: [id number] Oral 300 240 Output: Urine 600 Other: Voiding Method Toilet # Voids 2 2 - Exam Gen. appearance the patient is calm comfortable likely distress Head exam was generally normal. There was no scleral icterus or corneal arcus. Mucous membranes were moist. . Neck was supple and without jugular venous distension, thyromegaly, or carotid bruits. Carotids were easily palpable bilaterally. There was no adenopathy. Lungs sounds are diminished on the left compared to the right. The patient also has a subcutaneous emphysema along the left lateral chest. Chest tube has been discontinued Cardiac exam revealed the PMI to be normally situated and sized. The rhythm was regular and no extrasystoles were noted during several minutes of auscultation. The first and second heart sounds were normal and physiologic splitting of the second heart sound was noted. There were no murmurs, rubs, clicks, or gallops. Abdominal exam revealed normal bowel sounds. The abdomen was soft, non-tender, and without masses, organomegaly, or appreciable enlargement of the abdominal aorta. Examination of the extremities revealed easily palpable radial, femoral and pedal pulses. There was no cyanosis, clubbing or edema. Examination of the skin revealed no evidence of significant rashes, suspicious appearing nevi or other concerning lesions. Neurologically the patient is awake and alert and there is no focal neurological deficits. - Labs CBC & Chem 7: 09/19/17 06:00 09/18/17 05:51 Labs: Abnormal Lab Results - Last 24 Hours (Table) 09/18/17 09/18/17 09/18/17 Range/Units 05:51 11:35 17:02 WBC (3.8-10.6) k/uL Hgb (11.4-16.0) gm/dL MCHC (31.0-37.0) g/dL Plt Count (150-450) k/uL Neutrophils # (1.3-7.7) k/uL Lymphocytes # (1.0-4.8) k/uL POC Glucose (mg/dL) 235 H 272 H (75-99) mg/dL Hemoglobin A1c 11.6 H (4.0-6.0) % 09/18/17 09/18/17 09/19/17 Range/Units 20:51 23:25 05:56 WBC (3.8-10.6) k/uL Hgb (11.4-16.0) gm/dL MCHC (31.0-37.0) g/dL Plt Count (150-450) k/uL Neutrophils # (1.3-7.7) k/uL Lymphocytes # (1.0-4.8) k/uL POC Glucose (mg/dL) 305 H 341 H 251 H (75-99) mg/dL Hemoglobin A1c (4.0-6.0) % 09/19/17 Range/Units 06:00 WBC 10.8 H (3.8-10.6) k/uL Hgb 11.3 L (11.4-16.0) gm/dL MCHC 30.9 L (31.0-37.0) g/dL Plt Count 483 H (150-450) k/uL Neutrophils # 9.3 H (1.3-7.7) k/uL Lymphocytes # 0.9 L (1.0-4.8) k/uL POC Glucose (mg/dL) (75-99) mg/dL Hemoglobin A1c (4.0-6.0) % Microbiology - Last 24 Hours (Table) 09/18/17 11:00 Acid Fast Bacilli Smear - Final Bronchoalviolar Lavage - Left Acid Fast Bacilli Culture - Preliminary 09/18/17 11:00 Gram Stain - Preliminary Bronchoalviolar Lavage - Left Bronchial Washings Culture - Preliminary 09/18/17 11:00 Fungal Culture - Preliminary Bronchoalviolar Lavage - Left Assessment and Plan Assessment: Assessment: 1 robotic-assisted thoracoscopic left upper lobe lobectomy with mediastinal lymph node dissection for a left upper lobe mass. 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 The patient has developed near complete opacification of the left lung. Status post bronchoscopy on 09/18 revealing near complete occlusion of the left mainstem bronchus. 2 COPD at baseline with an FEV1 of 70% of predicted preoperatively 3 left hemidiaphragmatic elevation following a left upper lobe resection. This could be related to volume loss/lobectomy. At the same and the patient has some gastric distention, a symptomatically at this stage. 4 abdominal distention and discomfort secondary to suspected gastroparesis/ ileus. EGD revealed retained partially digested food in the stomach with no evidence of mechanical obstruction to the gastric outlet. 5 hypothyroidism 6 diabetes mellitus 7 history of ITP 8 history of smoking currently in remission 9 coronary artery disease with previous history of coronary intervention and stenting Plan: The patient was seen and evaluated by Dr. Borja. Chest x-ray and labs were reviewed. He did speak with Dr. Jules following yesterday's bronchoscopy. The plan may be for repeat bronchoscopy in the a.m. with Dr. Jules. We will continue with antibiotics, Decadron, bronchodilators. Increase her activity as tolerated. We'll continue to follow. I, the cosigning physician, performed a history & physical examination of the patient. Lungs sounds with few scattered rhonchi more so on the left, significantly diminished on the left. Maintaining good O2 saturations in the 90s on room air. I discussed the assessment and plan of care with my nurse practitioner, Gaye Tsang. I attest to the above note as dictated by her.
[2017-09-19] MEDS: BUDESONIDE 1 MG/2 ML NEBU INHALATION SCH ×2 (11:24→19:38)
[2017-09-19] MEDS: FORMOTEROL FUMARATE 20 MCG/2 ML NEBU INHALATION SCH ×2 (11:24→19:38)
[2017-09-19] MEDS: IPRATROPIUM-ALBUTEROL 3 ML NEB IH SCH ×4 (11:25→19:38)
[2017-09-19 11:35] LABS: Glucose,Whole Blood 405 mg/dL (75-99)
[2017-09-19] MEDS: DILTIAZEM 50 MG in SODIUM CHLORIDE 0.9% 40 ML IV SCH ×2 (12:05→14:08)
[2017-09-19] MEDS: DEXAMETHASONE SOD PHOSPHATE 4 MG/ML 1 ML VIAL IV SCH ×4 (12:06→23:13)
[2017-09-19] MEDS: METOCLOPRAMIDE 5 MG/ML 2 ML VIAL IVP SCH ×4 (12:06→23:27)
[2017-09-19] MEDS: INSULIN ASPART 100 UNIT/ML 1 ML 10 ML VIAL SQ SCH ×4 (12:06→21:09)
[2017-09-19] MEDS: DOCUSATE 100 MG CAP PO SCH (12:07)
[2017-09-19] MEDS: CLOPIDOGREL 75 MG TAB PO SCH (12:07)
[2017-09-19] MEDS: HEPARIN SODIUM,PORCINE 5,000 UNIT/ML 1 ML VIAL SQ SCH ×3 (12:07→23:12)
[2017-09-19] MEDS: LISINOPRIL 5 MG TAB PO SCH ×2 (12:07→21:10)
[2017-09-19] MEDS: PIPERACILLIN-TAZOBACTAM 3.375 GM in DEXTROSE/WATER 1 50ML.BAG IVPB SCH ×3 (12:07→23:27)
[2017-09-19] MEDS: ASPIRIN 81 MG PO SCH (12:07)
[2017-09-19] MEDS: FLUCONAZOLE 100 MG TAB PO SCH (12:07)
[2017-09-19] MEDS: METOPROLOL TARTRATE 25 MG TAB PO SCH ×3 (12:07→21:08)
[2017-09-19] MEDS: ATORVASTATIN 80 MG TAB PO SCH (12:07)
[2017-09-19] MEDS: traMADol 50 MG TAB PO SCH ×4 (12:08→21:08)
[2017-09-19] MEDS: PANTOPRAZOLE 40 MG/10 ML VIAL IVP SCH (12:08)
[2017-09-19] MEDS: TAMSULOSIN 0.4 MG CAP.ER.24H PO SCH (12:08)
--- NOTE | 2017-09-19 12:20 | PN ---
PROGRESS NOTE A 66-year-old lady with carcinoma of the lung involving left lung, who is status post resection and is admitted for the same. Developed an episode of atrial fibrillation for which Cardiology had been consulted. Patient is doing well and has not had any further episodes of atrial fibrillation. She is still short of breath and air entry to the left side is diminished and will undergo another bronchoscopy tomorrow. She is on metoprolol 25 mg t.i.d. along with Lipitor, aspirin, Zestril. PHYSICAL EXAM: Comfortable at rest. Heart rate is 79 beats per minute. Blood pressure is 122/56, O2 sat is 92% on room air. Chest exam reveals diminished air entry on the left side. Heart exam reveals first and second heart sounds. No gallop. Exam of the extremities did not reveal any edema. LABS: Show a hemoglobin of 11.3. ASSESSMENT: 1. Paroxysmal atrial fibrillation. 2. Carcinoma of the lung. 3. Coronary artery disease, status post angioplasty. PLAN: Patient will continue with the current medications, had an echocardiogram yesterday that shows normal LV systolic function. MMODL / IJN: [id number] /
[2017-09-19 14:51] LABS: Glucose,Whole Blood 376 mg/dL (75-99)
[2017-09-19 14:56] LABS: Potassium 5.6 mmol/L (3.5-5.1)
[2017-09-19 15:26] VITALS: BMI 23.8
[2017-09-19 16:49] LABS: Glucose,Whole Blood 297 mg/dL (75-99)
[2017-09-19 20:37] LABS: Glucose,Whole Blood 252 mg/dL (75-99)
--- NOTE | 2017-09-19 20:42 | P.PN ---
Subjective This is a pleasant 66 years old female with past medical history of diabetes mellitus, fibromyalgia, GERD, idiopathic thrombocytopenia purpura, IBS, diverticulitis, herniated disc at L3-L4, restless leg syndrome lung cancer stage I with left upper lobe mass. Patient originally came in with shortness of breath for COPD exacerbation suspicion she got CAT scan which found to have left upper lobe mass last surgery was small but deep in the lung parenchyma. Lobectomy was recommended by the surgeon which the patient had on 09/06/2017. Patient had CT of the abdomen and pelvis on 09/12/2017 showing the stomach is markedly distended and rectal wall. GI team were consulted and recommended NG tube followed by EGD: No mechanical obstruction of the stomach outlet and patient was diagnosed for possible gastroparesis. Also they recommended outpatient colonoscopy. Chest x-ray from today showed left lung opacification with elevation of the left hemidiaphragm. CT of the chest without contrast: Showed hydropneumothorax with 5% pneumothorax of the appendix and small to moderate pleural effusion, and possible mucous plug of the left main bronchus with severe consolidation and COPD Subjective Patient cough and abdominal pain are significantly improving,pt remains generally weak area patient denies chest pain, dyspnea. No fever Objective - Vital Signs Vital signs: Vital Signs Temp 98.5 F 09/19/17 16:00 Pulse 88 09/19/17 20:06 Resp 18 09/19/17 16:00 BP 117/70 09/19/17 16:00 Pulse Ox 95 09/19/17 16:00 Intake & Output 09/19/17 09/19/17 09/20/17 06:59 18:59 06:59 Intake Total 290 460 Output Total 0 Balance 290 460 Weight 59 kg Intake: Intake, IV Titration 50 Amount Piperacillin-Tazobactam 3 50 .375 gm In Dextrose/Water 1 50ml.bag @ 12.5 mls/hr IVPB Q8HR [facility] Rx#: [id number] Oral 240 460 Output: Urine 0 Other: Voiding Method Toilet Toilet # Voids 2 - Exam -GENERAL: The patient is alert and oriented x3, in respiratory distress due to cough and pain at the surgery site. No tachypnea. Well developed, well nourished. HEENT: Pupils are round and equally reacting to light. EOMI. No scleral icterus. No conjunctival pallor. Normocephalic, atraumatic. No pharyngeal erythema. No thyromegaly. CARDIOVASCULAR: S1 and S2 present. No murmurs, rubs, or gallops. -PULMONARY: Chest has some crackles on the left side with decreased breath sounds, no wheezing ABDOMEN: Soft, nontender, nondistended, normoactive bowel sounds. No palpable organomegaly. MUSCULOSKELETAL: No joint swelling or deformity. EXTREMITIES: No cyanosis, clubbing, or pedal edema. NEUROLOGICAL: Gross neurological examination did not reveal any focal deficits. SKIN: No rashes. - Labs CBC & Chem 7: 09/19/17 06:00 09/19/17 06:05 Labs: Abnormal Lab Results - Last 24 Hours (Table) 09/18/17 09/18/17 09/19/17 Range/Units 20:51 23:25 05:56 WBC (3.8-10.6) k/uL Hgb (11.4-16.0) gm/dL MCHC (31.0-37.0) g/dL Plt Count (150-450) k/uL Neutrophils # (1.3-7.7) k/uL Lymphocytes # (1.0-4.8) k/uL Potassium (3.5-5.1) mmol/L Carbon Dioxide (22-30) mmol/L Glucose (74-99) mg/dL POC Glucose (mg/dL) 305 H 341 H 251 H (75-99) mg/dL 09/19/17 09/19/17 09/19/17 Range/Units 06:00 06:05 11:31 WBC 10.8 H (3.8-10.6) k/uL Hgb 11.3 L (11.4-16.0) gm/dL MCHC 30.9 L (31.0-37.0) g/dL Plt Count 483 H (150-450) k/uL Neutrophils # 9.3 H (1.3-7.7) k/uL Lymphocytes # 0.9 L (1.0-4.8) k/uL Potassium 5.6 H (3.5-5.1) mmol/L Carbon Dioxide 21 L (22-30) mmol/L Glucose 256 H (74-99) mg/dL POC Glucose (mg/dL) 405 H (75-99) mg/dL 09/19/17 09/19/17 09/19/17 Range/Units 14:38 16:44 20:35 WBC (3.8-10.6) k/uL Hgb (11.4-16.0) gm/dL MCHC (31.0-37.0) g/dL Plt Count (150-450) k/uL Neutrophils # (1.3-7.7) k/uL Lymphocytes # (1.0-4.8) k/uL Potassium (3.5-5.1) mmol/L Carbon Dioxide (22-30) mmol/L Glucose (74-99) mg/dL POC Glucose (mg/dL) 376 H 297 H 252 H (75-99) mg/dL Microbiology - Last 24 Hours (Table) 09/18/17 11:00 Gram Stain - Preliminary Bronchoalviolar Lavage - Left Bronchial Washings Culture - Preliminary 09/18/17 11:00 Acid Fast Bacilli Smear - Final Bronchoalviolar Lavage - Left Acid Fast Bacilli Culture - Preliminary 09/18/17 11:00 Fungal Culture - Preliminary Bronchoalviolar Lavage - Left Assessment and Plan Plan: -Left upper lobe mass. Lung cancer stage I. Status post lobectomy. Pulmonary/ intensive care unit specialist and thoracic surgeon on the case. -Possible left pneumonia. Chest x-ray shows consolidations of the left lung. Mild leukocytosis. Patient started on IV Zosyn and follow-up chest x-ray the morning with possible need for bronchoscopy as per pulmonary team with R following the case. Thoracic surgeon also follow seeing the patient -Gastroparesis. GI following the patient. Continue with conservative treatment. -Rectal wall thickening. GI consult is noted-and they recommended outpatient colonoscopy -Urinary retention and incomplete emptying. Neurologist evaluation is noted. ditropan was DC'd. This was placed for straight cath also -Possible UTI, UC showing Rosa Maria. continue with Zosyn and Diflucan -Abnormal liver function test, follow-up level -Diabetes mellitus continue with Levemir 20 units DVT prophylaxis on heparin GI prophylaxis Protonix Prognosis is guarded
[2017-09-19] MEDS: INSULIN DETEMIR 100 UNIT/ML 10 ML VIAL SQ SCH (21:07)
[2017-09-19] MEDS: ALPRAZolam 0.25 MG TAB PO PRN (21:07)
[2017-09-19] MEDS ORDERED: SODIUM POLYSTYRENE SULFONATE 15 GM/60 ML BOTTLE PO ONE (23:14)
[2017-09-19] MEDS: guaiFENesin SYRUP 100MG/5ML 200 MG/10 ML CUP PO PRN (23:27)
[2017-09-20 06:07] LABS: Glucose,Whole Blood 291 mg/dL (75-99)
[2017-09-20 06:26] LABS: Basophils # (A) 0.1 k/uL (0-0.2); Basophils % (A) 0 %; Eosinophils % (A) 0 %; HCT 32.7 % (34.0-46.0); Hypochromasia Slight; Lymphocytes # (A) 1.2 k/uL (1.0-4.8); Lymphocytes % (A) 10 %; MCH 27.6 pg (25.0-35.0); MCHC 30.5 g/dL (31.0-37.0); MCV 90.5 fL (80.0-100.0); Mean Platelet Volume 6.9; Monocytes # (A) 0.7 k/uL (0-1.0); Monocytes % (A) 6 %; Neutrophils # (A) 9.1 k/uL (1.3-7.7); Neutrophils % (A) 81 %; Platelet Count 494 k/uL (150-450); RBC 3.61 m/uL (3.80-5.40); RDW 14.4 % (11.5-15.5); WBC 11.2 k/uL (3.8-10.6)
[2017-09-20 06:41] LABS: Anion Gap 12 mmol/L; Blood Urea Nitrogen 20 mg/dL (7-17); Calcium 8.9 mg/dL (8.4-10.2); Carbon Dioxide 24 mmol/L (22-30); Chloride 98 mmol/L (98-107); Glucose 303 mg/dL (74-99); Potassium 5.4 mmol/L (3.5-5.1); Sodium 134 mmol/L (137-145)
[2017-09-20] MEDS: INSULIN ASPART 100 UNIT/ML 1 ML 10 ML VIAL SQ SCH ×4 (07:25→21:22)
[2017-09-20] MEDS: DEXAMETHASONE SOD PHOSPHATE 4 MG/ML 1 ML VIAL IV SCH ×3 (07:25→18:44)
[2017-09-20] MEDS: METOCLOPRAMIDE 5 MG/ML 2 ML VIAL IVP SCH ×3 (07:25→18:45)
[2017-09-20] MEDS: IPRATROPIUM-ALBUTEROL 3 ML NEB IH SCH ×4 (07:48→19:56)
[2017-09-20] MEDS: BUDESONIDE 1 MG/2 ML NEBU INHALATION SCH ×2 (07:48→19:56)
[2017-09-20] MEDS: FORMOTEROL FUMARATE 20 MCG/2 ML NEBU INHALATION SCH ×2 (07:48→19:57)
[2017-09-20] MEDS: PIPERACILLIN-TAZOBACTAM 3.375 GM in DEXTROSE/WATER 1 50ML.BAG IVPB SCH ×2 (08:15→14:45)
--- NOTE | 2017-09-20 09:09 | P.PN ---
Subjective Progress Note Date: 09/20/17 Principal diagnosis: Left upper lobe mass. Medical history of coronary artery disease with recent stenting of the left anterior descending coronary artery in December 2016, perforated gastric ulcer with exploratory laparotomy, ITP, hypothyroid, diabetes mellitus type 2, previous tobacco dependence. POD #13 robotic assisted thoracoscopic left upper lobectomy with mediastinal lymph node dissection and fiberoptic bronchoscopy with clearance of mucous plug , pathology demonstrating squamous cell carcinoma. Gastroparesis, an unexpected but potential outcome given the patient's long- standing history of diabetes. POD #[address] Calderón. POD #2 bronchoscopy, endobronchial brushings of the distal mainstem bronchus, endobronchial biopsy of the distal left mainstem bronchus and washings of the distal left mainstem bronchus. Postoperative left pleural effusion, an unexpected but potential outcome of surgery. Postoperative urinary retention with incomplete bladder emptying, history of long-standing diabetes mellitus. Postoperative elevation of her left hemidiaphragm, and unexpected but potential outcome of surgery. Patient's currently laying in bed in no acute distress. Denies any pain at this time. Does complain of shortness of breath with exertion. Was up ambulating the hallways multiple times yesterday. Objective - Vital Signs Vital signs: Vital Signs Temp 97.4 F L 09/20/17 07:54 Pulse 63 09/20/17 07:54 Resp 18 09/20/17 07:54 BP 129/61 09/20/17 07:54 Pulse Ox 99 09/20/17 07:54 Intake & Output 09/19/17 09/20/17 09/20/17 18:59 06:59 18:59 Intake Total 460 300 Output Total 0 Balance 460 300 Weight 59 kg 59 kg Intake: IV 60 0.9 60 Oral 460 240 Output: Urine 0 Other: Voiding Method Toilet Toilet # Voids 4 - Constitutional General appearance: Present: cooperative, no acute distress - Respiratory Details: Lungs sounds very diminished on the left. Respirations even, nonlabored. Currently on room air with oxygen saturation 97%. Able to achieve 750 mL on incentive spirometry. - Cardiovascular Details: S1, S2 present. Regular rate and rhythm, sinus rhythm on telemetry. Palpable peripheral pulses bilaterally. No edema present. No calf pain or tenderness noted. SCDs present. - Gastrointestinal Gastrointestinal Comment(s): Abdomen soft, tender, nondistended. Active bowel sounds 4 quadrants. Tolerating diet. - Genitourinary Genitourinary Comment(s): Continues to void clear, yellow urine. - Integumentary Integumentary Comment(s): Skin is warm and dry with evidence of good perfusion. Left lateral wall incisions well approximated. - Neurologic Neurologic: Present: CNII-XII intact - Musculoskeletal Musculoskeletal: Present: gait normal, strength equal bilaterally - Psychiatric Psychiatric: Present: A&O x's 3, appropriate affect, intact judgment & insight - Allied health notes Allied health notes reviewed: nursing - Labs CBC & Chem 7: 09/20/17 05:49 09/20/17 05:49 Labs: Abnormal Lab Results - Last 24 Hours (Table) 09/19/17 09/19/17 09/19/17 Range/Units 06:05 11:31 14:38 WBC (3.8-10.6) k/uL RBC (3.80-5.40) m/uL Hgb (11.4-16.0) gm/dL Hct (34.0-46.0) % MCHC (31.0-37.0) g/dL Plt Count (150-450) k/uL Neutrophils # (1.3-7.7) k/uL Sodium (137-145) mmol/L Potassium 5.6 H (3.5-5.1) mmol/L Carbon Dioxide 21 L (22-30) mmol/L BUN (7-17) mg/dL Glucose 256 H (74-99) mg/dL POC Glucose (mg/dL) 405 H 376 H (75-99) mg/dL 09/19/17 09/19/17 09/20/17 Range/Units 16:44 20:35 05:49 WBC 11.2 H (3.8-10.6) k/uL RBC 3.61 L (3.80-5.40) m/uL Hgb 10.0 L (11.4-16.0) gm/dL Hct 32.7 L (34.0-46.0) % MCHC 30.5 L (31.0-37.0) g/dL Plt Count 494 H (150-450) k/uL Neutrophils # 9.1 H (1.3-7.7) k/uL Sodium (137-145) mmol/L Potassium (3.5-5.1) mmol/L Carbon Dioxide (22-30) mmol/L BUN (7-17) mg/dL Glucose (74-99) mg/dL POC Glucose (mg/dL) 297 H 252 H (75-99) mg/dL 09/20/17 09/20/17 Range/Units 05:49 06:05 WBC (3.8-10.6) k/uL RBC (3.80-5.40) m/uL Hgb (11.4-16.0) gm/dL Hct (34.0-46.0) % MCHC (31.0-37.0) g/dL Plt Count (150-450) k/uL Neutrophils # (1.3-7.7) k/uL Sodium 134 L (137-145) mmol/L Potassium 5.4 H (3.5-5.1) mmol/L Carbon Dioxide (22-30) mmol/L BUN 20 H (7-17) mg/dL Glucose 303 H (74-99) mg/dL POC Glucose (mg/dL) 291 H (75-99) mg/dL Microbiology - Last 24 Hours (Table) 09/18/17 11:00 Gram Stain - Preliminary Bronchoalviolar Lavage - Left Bronchial Washings Culture - Preliminary 09/18/17 11:00 Acid Fast Bacilli Smear - Final Bronchoalviolar Lavage - Left Acid Fast Bacilli Culture - Preliminary Assessment and Plan (1) Mass of upper lobe of left lung Current Visit: Yes Status: Acute Code(s): R91.8 - OTHER NONSPECIFIC ABNORMAL FINDING OF LUNG FIELD SNOMED Code(s): 007471938 (2) Coronary artery disease Current Visit: Yes Status: Chronic Code(s): I25.10 - ATHSCL HEART DISEASE OF [place] CORONARY ARTERY W/O ANG PCTRS SNOMED Code(s): 79917502 (3) History of heart artery stent Current Visit: Yes Status: Chronic Code(s): Z95.5 - PRESENCE OF CORONARY ANGIOPLASTY IMPLANT AND GRAFT SNOMED Code(s): 448457889 (4) Hypothyroid Current Visit: Yes Status: Chronic Code(s): E03.9 - HYPOTHYROIDISM, UNSPECIFIED SNOMED Code(s): 85722350 (5) Diabetes mellitus Current Visit: Yes Status: Chronic Code(s): E11.9 - TYPE 2 DIABETES MELLITUS WITHOUT COMPLICATIONS SNOMED Code(s): 19511346 (6) Tobacco dependence in remission Current Visit: Yes Status: Resolved Code(s): F17.201 - NICOTINE DEPENDENCE, UNSPECIFIED, IN REMISSION SNOMED Code(s): 308869001 (7) History of gastric ulcer Current Visit: Yes Status: Resolved Code(s): Z87.19 - PERSONAL HISTORY OF OTHER DISEASES OF THE DIGESTIVE SYSTEM SNOMED Code(s): 830295262 (8) History of ITP Current Visit: Yes Status: Resolved Priority: Medium Code(s): Z86.2 - PRSNL HISTORY OF DIS OF [facility] Code(s): 778499679 Plan: 1. Encourage incentive spirometry use 10 times every hour. Patient needs aggressive pulmonary toileting. 2. Continue Reglan for gastroparesis. 3. Encourage continued smoking cessation. 4. Bronchodilators per pulmonology. 5. Pain control with ordered medication regimen. 6. GI/DVT prophylaxis. 7. Increase activity, ambulate in hallway. PT/OT following. 8. Continue Diflucan for [place] in her urine, continue Zosyn per pulmonology. 9. Continue Flomax per urology. 10. Continue current home medication regimen. 11. Nothing by mouth for bronchoscopy today by Dr. Jules. 12. More recommendations to follow. Time with Patient: Greater than 30
[2017-09-20] MEDS ORDERED: PROPOFOL 10 MG/ML 20 ML VIAL IV ONE (11:26)
[2017-09-20] MEDS ORDERED: LIDOCAINE 1% INJ 10MG/ML (20 ML MDV) ONE (11:26)
[2017-09-20] MEDS ORDERED: MIDAZOLAM 2 MG/2 ML VIAL ONE (11:26)
[2017-09-20] MEDS ORDERED: IV FLUID CONTINUATION 250 ML IV ONE (11:35)
--- NOTE | 2017-09-20 12:18 | P.PN ---
Subjective Progress Note Date: 09/20/17 Principal diagnosis: Left upper lobe mass, status post robotic-assisted thorascopic left upper lobe lobectomy with mediastinal lymph node dissection. 66-year-old female patient with known history of COPD and FEV1 of 70% of predicted, was found to have a left upper lobe mass that showed intense uptake in the PET scan. Based on that, the patient was taken to surgery and she underwent a robotic-assisted thoracoscopy and left upper lobe resection with mediastinal lymph node dissection. The patient is postop day #4. On today's evaluation, the patient is still has a left-sided chest tube. The patient has a small amount of air leak on today's evaluation. The patient has drained approximately 75 mL of serosanguineous drainage overnight and to 30 ML's over the past 24 hours. The patient is able to continue using incentive spirometer and she is pulling up to 1000. She is on oxygen at 2 L/m nasal cannula. Hemodynamically stable. Surgical wound is dry clean and intact. No altered mentation. No chest pain. Pain is under good control for now. The chest x- ray that was done today showed a tiny 5-10% left apical pneumothorax. There is also a left lower lobe consolidation pleural effusion. There is stomach distention and there is also some periods emphysema along the left chest wall. On 09/11/2017 patient seen in follow-up on selective care unit. Today's chest x -ray showed 5-10% stable pneumothorax on the right, persistent marked distention of the gastric air bubble. Chest tube has been discontinued, patient continues to use her incentive spirometry. KUB x-ray was obtained, and showed massive distention of the gastric air bubble, and fecal impaction. Patient had a bowel movement last night, and again this morning. Abdomen is soft, and nontender. Pulse ox on 2 L per nasal cannula was 100%, her pulse ox with ambulation in the room was 96%, patient is comfortable, denies any dyspnea. Lung sounds are positive for diminished on the left compared to the right, though no rhonchi, no wheezes noted. On 09/12/2017 I'm seeing this patient for a follow-up. 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 Currently the patient is postop day #5. The left-sided chest tube has been removed. One concern was a significant gastric distention that was seen on the chest x-ray and abdominal films. The patient had some increased stool a combination within the large bowel for which the patient was given laxative with good results and the patient has been able to pass bowel movements. However, there was still concern of the large gastric distention that was seen and based on that a CAT scan of the abdomen and pelvis was done this afternoon that obviously showed postsurgical changes within the left lung. Specifically her was a tiny left- sided pneumothorax anteriorly and evidence of subcutaneous emphysema tracking down to the left flank area. The residual left lower lobe was well expanded. There was marked gastric distention and there was also segmental limitation and narrowing of the duodenum without any obstructions seen. No NG tube was inserted and the patient was still asymptomatic and she was able to pass bowel movements and she does not have any nausea or emesis. There was some prominent fluid-filled small bowel loops in the lower abdomen and pelvis that could also potentially present some ileus. The patient had rectal wall thickening beyond an area of anastomosis and sigmoid resection and there was some fecal material within the large bowel. Based on the radiologist's recommendations, there was a need for a EGD and colonoscopy to assess these abnormalities and investigate this findings further. Nevertheless, despite his ongoing changes, the patient is not acting any septic no she is behaving as having a bowel obstruction. No abdominal distention. No nausea or emesis. She is ambulating. She is currently on room air oxygen. On 09/13/2017 patient seen in follow-up on [facility] care unit. Abdomen/pelvis CT was obtained yesterday, showed marked gastric distention with segmental dilatation and narrowing of the duodenum. There was some prominent fluid- filled small bowel loops in the lower abdomen and possible ileus or enteritis. There was some rectal wall thickening And evidence of prior distal sigmoid resection and reanastomosis. Patient denies any nausea, or vomiting. She has been receiving Colace, Reglan, yesterday she received Dulcolax suppository, small results. There is still evidence of a large amount of stool in the large colon. GI service has been consulted, and is considering the patient for upper endoscopy today. Patient is currently nothing by mouth. She she has mild diffuse tenderness in the left upper quadrant To palpation. Today's labs were reviewed, and essentially unremarkable. Chest x-ray results from today was reviewed by Dr. Milan, and shows stable left apical pneumothorax post chest tube removal measuring 5-10%. Persistent distention of the gastric air bubble. From pulmonary standpoint patient denies any acute complaints, no dyspnea, she is compliant with her incentive spirometry, she has been ambulating. Pulse ox on 2 L per nasal cannula is 99%. Sounds are clear on the right, diminished over left lower lobe, wheezes, no rhonchi, no rales noted. The patient is seen again today 09/14/2017 in follow-up on the selective care unit. Postoperative day #7. She is currently awake and alert in no acute distress. She denies any worsening shortness of breath, cough or congestion. She is maintaining O2 saturations in the upper 90s on 2 L/m per nasal cannula. Today's chest x-ray continues to show persistent 5-10% left apical pneumothorax. Stable compared to previous. She did undergo EGD this morning and was found to have retained partially digested food in the stomach with no evidence of mechanical obstruction to the gastric outlet for any duodenal pathology. Consideration gastroparesis/ileus. Nasogastric tube remains in place. On today's evaluation of 09/15/2017, I'm seeing this patient for a follow-up. The patient is looking well. She is ambulating. Chest x-ray from today shows a small air-fluid level within the left upper lobe. I'm aware that the patient had a small loculated pneumothorax and on today's chest x-ray there is a small hydropneumothorax. I was asked to consider a thoracentesis on this patient. Ultrasound of the left chest showed no significant pleural fluid the cannulation and based on that I'm going to wait forthat the patient is doing well and the patient is on room air oxygen. She is tolerating her diet. She is ambulating. No NG tube insertion. No abdominal distention. No fever or chills. Surgical wound site is clean. No other significant events overnight and will continue to follow. 1 she is having issues with urinary retention and the patient be asked to be seen by urology. The urinary catheter was taken out yesterday and we are monitoring the post void residual. On units in this patient for a follow-up. The chest x-ray shows further opacification of the left lung along with a small air-fluid levels in the left apical area. Left hemidiaphragm remains elevated and the stomach is less distended. Based on all this, CAT scan of the chest was requested that was done without contrast and the patient has a small pneumothorax in the left apex estimated to be less than 5% of the total lung volume. There is a small to moderate-sized pleural effusion which is loculated anteriorly and posteriorly. There is obviously an area of hydropneumothorax. In addition, the left lower lobe was quite opacified and there is extensive consolidation which raises the concern for pneumonia within the left lung. There is obvious volume loss and shift at least on structures of the left. Despite all this, the patient remains on room air. No significant fever. No chills. No nausea or vomiting. No abdominal pain. No other complaints otherwise for now. On 09/17/2017, I evaluated the patient, and evaluated her chest x-ray and CT of the chest, patient apparently developed complete opacification of the left lung. I tried to schedule the patient for bronchoscopy now, however the patient already ate, and we'll try to schedule the bronchoscopy most likely in the next 24 hours. Seems to be a picture of mucous plugging involving the left mainstem bronchus. Patient will need to be bronchoscoped, and most likely extract mucous plugs and lavage of the left lung will be done. Surprisingly the patient is not in much respiratory distress. WBC count is 4.6 hemoglobin is 10.2 basic metabolic profile is normal. The patient is seen today 09/18/2017 in follow-up on the selective care unit. She remains awake and alert in no acute distress. She is maintaining good O2 saturations in the 90s on room air. She's been afebrile. White count 12.7. Chest x-ray continues to show near complete opacification of the left lung. The plan is for bronchoscopy by Dr. Borja this morning. The patient is seen again today 09/19/2017 in follow-up on the selective care unit. She is currently ambulating in the hallway. She is in no acute distress. She is maintaining good O2 saturations in the 90s on room air. She' s been afebrile. Hemodynamically stable. Today's chest x-ray continues to show near complete opacification of the left hemithorax with volume loss. White count 10.8. Preliminary bronchial wash cultures reveal no growth. She is continued on Zosyn, bronchodilators and Decadron. The patient was seen today 09/20/2017 in follow-up on the selective care unit. She remains awake and alert in no acute distress she continues to maintain good O2 saturations in the 90s on room air. Most recent chest x-ray continued to show nearly complete opacification the left lung. Diminished. The plan is for repeat bronchoscopy by Dr. Jules today. White count 11.2. Hemoglobin 10.0. Creatinine 0.60. Objective - Vital Signs Vital signs: Vital Signs Temp 97.4 F L 09/20/17 07:54 Pulse 80 09/20/17 11:08 Resp 18 09/20/17 07:54 BP 129/61 09/20/17 07:54 Pulse Ox 99 09/20/17 07:54 Intake & Output 09/19/17 09/20/17 09/20/17 18:59 06:59 18:59 Intake Total 460 300 Output Total 0 Balance 460 300 Weight 59 kg 59 kg Intake: IV 60 0.9 60 Oral 460 240 Output: Urine 0 Other: Voiding Method Toilet Toilet # Voids 4 - Exam Gen. appearance the patient is calm comfortable likely distress Head exam was generally normal. There was no scleral icterus or corneal arcus. Mucous membranes were moist. . Neck was supple and without jugular venous distension, thyromegaly, or carotid bruits. Carotids were easily palpable bilaterally. There was no adenopathy. Lungs sounds are diminished on the left compared to the right. The patient also has a subcutaneous emphysema along the left lateral chest. Chest tube has been discontinued Cardiac exam revealed the PMI to be normally situated and sized. The rhythm was regular and no extrasystoles were noted during several minutes of auscultation. The first and second heart sounds were normal and physiologic splitting of the second heart sound was noted. There were no murmurs, rubs, clicks, or gallops. Abdominal exam revealed normal bowel sounds. The abdomen was soft, non-tender, and without masses, organomegaly, or appreciable enlargement of the abdominal aorta. Examination of the extremities revealed easily palpable radial, femoral and pedal pulses. There was no cyanosis, clubbing or edema. Examination of the skin revealed no evidence of significant rashes, suspicious appearing nevi or other concerning lesions. Neurologically the patient is awake and alert and there is no focal neurological deficits. - Labs CBC & Chem 7: 09/20/17 05:49 09/20/17 05:49 Labs: Abnormal Lab Results - Last 24 Hours (Table) 09/19/17 09/19/17 09/19/17 Range/Units 06:05 14:38 16:44 WBC (3.8-10.6) k/uL RBC (3.80-5.40) m/uL Hgb (11.4-16.0) gm/dL Hct (34.0-46.0) % MCHC (31.0-37.0) g/dL Plt Count (150-450) k/uL Neutrophils # (1.3-7.7) k/uL Sodium (137-145) mmol/L Potassium 5.6 H (3.5-5.1) mmol/L Carbon Dioxide 21 L (22-30) mmol/L BUN (7-17) mg/dL Glucose 256 H (74-99) mg/dL POC Glucose (mg/dL) 376 H 297 H (75-99) mg/dL 09/19/17 09/20/17 09/20/17 Range/Units 20:35 05:49 05:49 WBC 11.2 H (3.8-10.6) k/uL RBC 3.61 L (3.80-5.40) m/uL Hgb 10.0 L (11.4-16.0) gm/dL Hct 32.7 L (34.0-46.0) % MCHC 30.5 L (31.0-37.0) g/dL Plt Count 494 H (150-450) k/uL Neutrophils # 9.1 H (1.3-7.7) k/uL Sodium 134 L (137-145) mmol/L Potassium 5.4 H (3.5-5.1) mmol/L Carbon Dioxide (22-30) mmol/L BUN 20 H (7-17) mg/dL Glucose 303 H (74-99) mg/dL POC Glucose (mg/dL) 252 H (75-99) mg/dL 09/20/17 Range/Units 06:05 WBC (3.8-10.6) k/uL RBC (3.80-5.40) m/uL Hgb (11.4-16.0) gm/dL Hct (34.0-46.0) % MCHC (31.0-37.0) g/dL Plt Count (150-450) k/uL Neutrophils # (1.3-7.7) k/uL Sodium (137-145) mmol/L Potassium (3.5-5.1) mmol/L Carbon Dioxide (22-30) mmol/L BUN (7-17) mg/dL Glucose (74-99) mg/dL POC Glucose (mg/dL) 291 H (75-99) mg/dL Microbiology - Last 24 Hours (Table) 09/18/17 11:00 Gram Stain - Final Bronchoalviolar Lavage - Left Bronchial Washings Culture - Final Assessment and Plan Assessment: Assessment: 1 robotic-assisted thoracoscopic left upper lobe lobectomy with mediastinal lymph node dissection for a left upper lobe mass. 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 The patient has developed near complete opacification of the left lung. Status post bronchoscopy on 09/18 revealing near complete occlusion of the left mainstem bronchus. The plan is for repeat bronchoscopy today by Dr. Jules. 2 COPD at baseline with an FEV1 of 70% of predicted preoperatively 3 left hemidiaphragmatic elevation following a left upper lobe resection. This could be related to volume loss/lobectomy. At the same and the patient has some gastric distention, a symptomatically at this stage. 4 abdominal distention and discomfort secondary to suspected gastroparesis/ ileus. EGD revealed retained partially digested food in the stomach with no evidence of mechanical obstruction to the gastric outlet. 5 hypothyroidism 6 diabetes mellitus 7 history of ITP 8 history of smoking currently in remission 9 coronary artery disease with previous history of coronary intervention and stenting Plan: The patient was seen and evaluated by Dr. Borja. Plan is for repeat bronchoscopy with Dr. Jules today. We will continue with antibiotics, Decadron , bronchodilators. Increase her activity as tolerated. We'll continue to follow. I, the cosigning physician, performed a history & physical examination of the patient. Lungs sounds with few scattered rhonchi more so on the left, significantly diminished on the left. Maintaining good O2 saturations in the 90s on room air. I discussed the assessment and plan of care with my nurse practitioner, Gaye Tsang. I attest to the above note as dictated by her.
[2017-09-20 12:23] LABS: Glucose,Whole Blood 287 mg/dL (75-99)
[2017-09-20] MEDS: guaiFENesin SYRUP 100MG/5ML 200 MG/10 ML CUP PO PRN ×2 (13:16→21:17)
--- NOTE | 2017-09-20 14:17 | P.PN ---
Subjective Progress Note Date: 09/20/17 This is a 66-year-old female with carcinoma of the lung involving the left lung who is status post resection. She developed an episode of atrial fibrillation for which cardiology was initially consulted. She has had no further documented episodes of atrial fibrillation, still complains of mild shortness of breath. Blood pressure 128/60 with a heart rate in the 70s, 93% on room air. White blood cell count 11.2, hemoglobin 10, platelet count 494. Sodium 134, potassium 5.4, BUN 20, creatinine 0.6. Objective - Vital Signs Vital signs: Vital Signs Temp 96.6 F L 09/20/17 12:43 Pulse 73 09/20/17 12:59 Resp 16 09/20/17 12:59 BP 128/58 09/20/17 12:59 Pulse Ox 93 L 09/20/17 12:59 Intake & Output 09/19/17 09/20/17 09/20/17 18:59 06:59 18:59 Intake Total 460 300 240 Output Total 0 Balance 460 300 240 Weight 59 kg 59 kg Intake: IV 60 0.9 60 Oral 460 240 240 Output: Urine 0 Other: Voiding Method Toilet Toilet # Voids 4 - Exam Gen. appearance the patient is calm comfortable likely distress Head exam was generally normal. There was no scleral icterus or corneal arcus. Mucous membranes were moist. . Neck was supple and without jugular venous distension, thyromegaly, or carotid bruits. Carotids were easily palpable bilaterally. There was no adenopathy. Lungs sounds are diminished on the left compared to the right. The patient also has a subcutaneous emphysema along the left lateral chest. Chest tube has been discontinued Cardiac exam revealed the PMI to be normally situated and sized. The rhythm was regular and no extrasystoles were noted during several minutes of auscultation. The first and second heart sounds were normal and physiologic splitting of the second heart sound was noted. There were no murmurs, rubs, clicks, or gallops. Abdominal exam revealed normal bowel sounds. The abdomen was soft, non-tender, and without masses, organomegaly, or appreciable enlargement of the abdominal aorta. Examination of the extremities revealed easily palpable radial, femoral and pedal pulses. There was no cyanosis, clubbing or edema. Examination of the skin revealed no evidence of significant rashes, suspicious appearing nevi or other concerning lesions. Neurologically the patient is awake and alert and there is no focal neurological deficits. - Labs CBC & Chem 7: 09/20/17 05:49 09/20/17 05:49 Labs: Abnormal Lab Results - Last 24 Hours (Table) 09/19/17 09/19/17 09/19/17 Range/Units 06:05 14:38 16:44 WBC (3.8-10.6) k/uL RBC (3.80-5.40) m/uL Hgb (11.4-16.0) gm/dL Hct (34.0-46.0) % MCHC (31.0-37.0) g/dL Plt Count (150-450) k/uL Neutrophils # (1.3-7.7) k/uL Sodium (137-145) mmol/L Potassium 5.6 H (3.5-5.1) mmol/L Carbon Dioxide 21 L (22-30) mmol/L BUN (7-17) mg/dL Glucose 256 H (74-99) mg/dL POC Glucose (mg/dL) 376 H 297 H (75-99) mg/dL 09/19/17 09/20/17 09/20/17 Range/Units 20:35 05:49 05:49 WBC 11.2 H (3.8-10.6) k/uL RBC 3.61 L (3.80-5.40) m/uL Hgb 10.0 L (11.4-16.0) gm/dL Hct 32.7 L (34.0-46.0) % MCHC 30.5 L (31.0-37.0) g/dL Plt Count 494 H (150-450) k/uL Neutrophils # 9.1 H (1.3-7.7) k/uL Sodium 134 L (137-145) mmol/L Potassium 5.4 H (3.5-5.1) mmol/L Carbon Dioxide (22-30) mmol/L BUN 20 H (7-17) mg/dL Glucose 303 H (74-99) mg/dL POC Glucose (mg/dL) 252 H (75-99) mg/dL 09/20/17 09/20/17 Range/Units 06:05 12:21 WBC (3.8-10.6) k/uL RBC (3.80-5.40) m/uL Hgb (11.4-16.0) gm/dL Hct (34.0-46.0) % MCHC (31.0-37.0) g/dL Plt Count (150-450) k/uL Neutrophils # (1.3-7.7) k/uL Sodium (137-145) mmol/L Potassium (3.5-5.1) mmol/L Carbon Dioxide (22-30) mmol/L BUN (7-17) mg/dL Glucose (74-99) mg/dL POC Glucose (mg/dL) 291 H 287 H (75-99) mg/dL Microbiology - Last 24 Hours (Table) 09/18/17 11:00 Gram Stain - Final Bronchoalviolar Lavage - Left Bronchial Washings Culture - Final Assessment and Plan Plan: Assessment: 1 robotic-assisted thoracoscopic left upper lobe lobectomy with mediastinal lymph node dissection for a left upper lobe mass. 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 2 COPD 3 left hemidiaphragmatic elevation following a left upper lobe resection. 4 abdominal distention and discomfort secondary to suspected gastroparesis/ ileus. EGD revealed retained partially digested food in the stomach with no evidence of mechanical obstruction to the gastric outlet. 5 hypothyroidism 6 diabetes mellitus 7 history of ITP 8 history of smoking currently in remission 9 coronary artery disease with previous history of coronary intervention and stenting #10 paroxysmal atrial fibrillation Plan Cardiology's perspective, we'll continue patient on her current medications. We 'll follow along with you now on an as-needed basis only, please don't hesitate to call with any questions. DNP note has been reviewed, I agree with a documented findings and plan of care. Patient was seen and examined.
[2017-09-20] MEDS: HEPARIN SODIUM,PORCINE 5,000 UNIT/ML 1 ML VIAL SQ SCH ×2 (14:36→14:47)
[2017-09-20] MEDS: traMADol 50 MG TAB PO SCH ×4 (14:38→21:16)
[2017-09-20] MEDS: LISINOPRIL 5 MG TAB PO SCH ×2 (14:40→21:16)
[2017-09-20] MEDS: METOPROLOL TARTRATE 25 MG TAB PO SCH ×3 (14:40→21:15)
[2017-09-20] MEDS: ATORVASTATIN 80 MG TAB PO SCH (14:42)
[2017-09-20] MEDS: CLOPIDOGREL 75 MG TAB PO SCH (14:42)
[2017-09-20] MEDS: ASPIRIN 81 MG PO SCH (14:42)
[2017-09-20] MEDS: DOCUSATE 100 MG CAP PO SCH (14:43)
[2017-09-20] MEDS: PANTOPRAZOLE 40 MG/10 ML VIAL IVP SCH (14:43)
[2017-09-20] MEDS: FLUCONAZOLE 100 MG TAB PO SCH (14:43)
[2017-09-20] MEDS: TAMSULOSIN 0.4 MG CAP.ER.24H PO SCH (14:44)
--- NOTE | 2017-09-20 16:39 | PCN ---
PROCEDURE NOTE PROCEDURE PERFORMED: Fiberoptic bronchoscopy. ANESTHESIA: Local with IV sedation. INDICATIONS: The patient is a 66-year-old female who is status post left upper lobectomy for stage I lung cancer. At the completion of her operation, she was noted to have mucus plugging of the left lower lobe and this was cleared with bronchoscopy. About 9 days after surgery, she developed a whiteout of the left chest and she again underwent bronchoscopy 2 days later and was shown to have severe swelling of the left lower lobe orifice with apparently near complete closure of the left lower lobe, orifice of the bronchus. Dr. Borja did the procedure and was able to pass a brush. It was decided to place the patient on steroids in hopes that this would improve despite that the patient has had persistent whiteout of the left chest and a repeat bronchoscopy was indicated to assess progress. PROCEDURE: Patient was taken to the bronchoscopy suite and the left naris was anesthetized. A small scope was passed, but we could not obtain good visualization. The interventional scope was then passed through the mouth across the cords and into the airway. The airway was hyper collapsible due to COPD. The right side was patent. The left side we were able to demonstrate some improvement in the opening of the left lower lobe bronchus, although there still was a lot of edema and erythema of the tissues as well as some degree of granulation tissue present. It was decided that no further intervention was warranted at this time. The patient may need interventional bronchoscopy with balloon dilatation and possible stenting, although my experience with granulation tissue is that the stenting frequently makes this worse. We will continue the antibiotics and the steroids for present and repeat bronchoscopy next week. MMODL / IJN: [id number] /
[2017-09-20 16:45] LABS: Glucose,Whole Blood 303 mg/dL (75-99)
[2017-09-20 20:55] LABS: Glucose,Whole Blood 334 mg/dL (75-99)
[2017-09-20] MEDS: INSULIN DETEMIR 100 UNIT/ML 10 ML VIAL SQ SCH (21:16)
[2017-09-20] MEDS: ALPRAZolam 0.25 MG TAB PO PRN (21:22)
[2017-09-21] MEDS: HEPARIN SODIUM,PORCINE 5,000 UNIT/ML 1 ML VIAL SQ SCH ×4 (00:15→23:08)
[2017-09-21] MEDS: METOCLOPRAMIDE 5 MG/ML 2 ML VIAL IVP SCH ×5 (00:15→23:08)
[2017-09-21] MEDS: PIPERACILLIN-TAZOBACTAM 3.375 GM in DEXTROSE/WATER 1 50ML.BAG IVPB SCH ×4 (00:16→23:09)
[2017-09-21] MEDS: DEXAMETHASONE SOD PHOSPHATE 4 MG/ML 1 ML VIAL IV SCH ×5 (00:16→23:08)
[2017-09-21 06:00] LABS: Glucose,Whole Blood 271 mg/dL (75-99)
[2017-09-21] MEDS: INSULIN ASPART 100 UNIT/ML 1 ML 10 ML VIAL SQ SCH ×4 (06:51→20:50)
[2017-09-21 06:53] LABS: HCT 34.6 % (34.0-46.0); HGB 10.9 gm/dL (11.4-16.0); MCHC 31.5 g/dL (31.0-37.0); MCV 88.9 fL (80.0-100.0); Mean Platelet Volume 7.2; Platelet Count 582 k/uL (150-450); RDW 14.3 % (11.5-15.5); WBC 13.3 k/uL (3.8-10.6)
[2017-09-21 07:05] LABS: Anion Gap 11 mmol/L; Blood Urea Nitrogen 21 mg/dL (7-17); Calcium 8.9 mg/dL (8.4-10.2); Carbon Dioxide 24 mmol/L (22-30); Chloride 99 mmol/L (98-107); Glucose 295 mg/dL (74-99); Potassium 5.2 mmol/L (3.5-5.1); Sodium 134 mmol/L (137-145)
--- NOTE | 2017-09-21 08:10 | XR ---
EXAMINATION TYPE: XR chest 2V DATE OF EXAM: 09/21/2017 COMPARISON: Prior chest x-ray 09/19/2017 HISTORY: Post lobectomy. TECHNIQUE: Frontal and lateral views of the chest are obtained. FINDINGS: Volume loss present in the left hemithorax. There is some improvement in aeration. No evid ent pneumothorax. Interstitium is increased. Heart is obscured, shifted to the left hemithorax. There are overlying cardiac leads. IMPRESSION: There may be a component of interstitial edema, correlate. Improvement in aeration in th e left upper lobe. There is residual atelectasis, correlate for possible pneumonia, effusion. Follow- up recommended.
--- NOTE | 2017-09-21 08:19 | P.PN ---
Subjective This is a pleasant 66 years old female with past medical history of diabetes mellitus, fibromyalgia, GERD, idiopathic thrombocytopenia purpura, IBS, diverticulitis, herniated disc at L3-L4, restless leg syndrome lung cancer stage I with left upper lobe mass. Patient originally came in with shortness of breath for COPD exacerbation suspicion she got CAT scan which found to have left upper lobe mass last surgery was small but deep in the lung parenchyma. Lobectomy was recommended by the surgeon which the patient had on 09/06/2017. Patient had CT of the abdomen and pelvis on 09/12/2017 showing the stomach is markedly distended and rectal wall. GI team were consulted and recommended NG tube followed by EGD: No mechanical obstruction of the stomach outlet and patient was diagnosed for possible gastroparesis. Also they recommended outpatient colonoscopy. Chest x-ray from today showed left lung opacification with elevation of the left hemidiaphragm. CT of the chest without contrast: Showed hydropneumothorax with 5% pneumothorax of the appendix and small to moderate pleural effusion, and possible mucous plug of the left main bronchus with severe consolidation and COPD Subjective Patient cough and abdominal pain are significantly improving,pt remains generally weak .patient denies chest pain, dyspnea. No fever. Patient is going for bronchoscopy today for possible balloon dilatation and possible stent placement the airway. Potassium was high at 5.4, Kayexalate is provided for the patient this morning. And will need to follow-up potassium level Objective - Vital Signs Vital signs: Vital Signs Temp 96.6 F L 09/20/17 12:43 Pulse 73 09/20/17 12:59 Resp 16 09/20/17 12:59 BP 128/58 09/20/17 12:59 Pulse Ox 93 L 09/20/17 12:59 Intake & Output 09/19/17 09/20/17 09/20/17 18:59 06:59 18:59 Intake Total 460 300 240 Output Total 0 Balance 460 300 240 Weight 59 kg 59 kg Intake: IV 60 0.9 60 Oral 460 240 240 Output: Urine 0 Other: Voiding Method Toilet Toilet # Voids 4 1 # Bowel Movements 0 - Labs CBC & Chem 7: 09/21/17 05:58 09/21/17 05:58 Labs: Abnormal Lab Results - Last 24 Hours (Table) 09/19/17 09/19/17 09/20/17 Range/Units 16:44 20:35 05:49 WBC 11.2 H (3.8-10.6) k/uL RBC 3.61 L (3.80-5.40) m/uL Hgb 10.0 L (11.4-16.0) gm/dL Hct 32.7 L (34.0-46.0) % MCHC 30.5 L (31.0-37.0) g/dL Plt Count 494 H (150-450) k/uL Neutrophils # 9.1 H (1.3-7.7) k/uL Sodium (137-145) mmol/L Potassium (3.5-5.1) mmol/L BUN (7-17) mg/dL Glucose (74-99) mg/dL POC Glucose (mg/dL) 297 H 252 H (75-99) mg/dL 09/20/17 09/20/17 09/20/17 Range/Units 05:49 06:05 12:21 WBC (3.8-10.6) k/uL RBC (3.80-5.40) m/uL Hgb (11.4-16.0) gm/dL Hct (34.0-46.0) % MCHC (31.0-37.0) g/dL Plt Count (150-450) k/uL Neutrophils # (1.3-7.7) k/uL Sodium 134 L (137-145) mmol/L Potassium 5.4 H (3.5-5.1) mmol/L BUN 20 H (7-17) mg/dL Glucose 303 H (74-99) mg/dL POC Glucose (mg/dL) 291 H 287 H (75-99) mg/dL Microbiology - Last 24 Hours (Table) 09/18/17 11:00 Gram Stain - Final Bronchoalviolar Lavage - Left Bronchial Washings Culture - Final Assessment and Plan Plan: -Left upper lobe mass. Lung cancer stage I. Status post lobectomy. Pulmonary/ intensive care unit specialist and thoracic surgeon on the case. -Possible left pneumonia. Chest x-ray shows consolidations of the left lung. Mild leukocytosis. Patient started on IV Zosyn and follow-up chest x-ray the morning with possible need for bronchoscopy as per pulmonary team with R following the case. Thoracic surgeon also follow seeing the patient -Gastroparesis. GI following the patient. Continue with conservative treatment. -Rectal wall thickening. GI consult is noted-and they recommended outpatient colonoscopy -Urinary retention and incomplete emptying. Neurologist evaluation is noted. ditropan was DC'd. This was placed for straight cath also -Possible UTI, UC showing Rosa Maria. continue with Zosyn and Diflucan -Abnormal liver function test, follow-up level -Diabetes mellitus continue with Levemir 20 units DVT prophylaxis on heparin GI prophylaxis Protonix Prognosis is guarded
[2017-09-21] MEDS: BUDESONIDE 1 MG/2 ML NEBU INHALATION SCH ×2 (08:30→19:16)
[2017-09-21] MEDS: IPRATROPIUM-ALBUTEROL 3 ML NEB IH SCH ×4 (08:33→19:18)
[2017-09-21] MEDS: DOCUSATE 100 MG CAP PO SCH (08:33)
[2017-09-21] MEDS: CLOPIDOGREL 75 MG TAB PO SCH (08:33)
[2017-09-21] MEDS: ASPIRIN 81 MG PO SCH (08:33)
[2017-09-21] MEDS: ATORVASTATIN 80 MG TAB PO SCH (08:33)
[2017-09-21] MEDS: FORMOTEROL FUMARATE 20 MCG/2 ML NEBU INHALATION SCH ×2 (08:33→19:16)
[2017-09-21] MEDS: TAMSULOSIN 0.4 MG CAP.ER.24H PO SCH (08:34)
[2017-09-21] MEDS: FLUCONAZOLE 100 MG TAB PO SCH (08:34)
[2017-09-21] MEDS: PANTOPRAZOLE 40 MG/10 ML VIAL IVP SCH (08:34)
[2017-09-21] MEDS: LISINOPRIL 5 MG TAB PO SCH ×2 (08:34→19:43)
[2017-09-21] MEDS: traMADol 50 MG TAB PO SCH ×4 (08:34→20:56)
[2017-09-21] MEDS: METOPROLOL TARTRATE 25 MG TAB PO SCH ×3 (08:34→19:42)
[2017-09-21] MEDS: guaiFENesin SYRUP 100MG/5ML 200 MG/10 ML CUP PO PRN ×2 (09:08→16:21)
--- NOTE | 2017-09-21 09:38 | P.PN ---
Subjective Progress Note Date: 09/21/17 Principal diagnosis: Left upper lobe mass. Medical history of coronary artery disease with recent stenting of the left anterior descending coronary artery in December 2016, perforated gastric ulcer with exploratory laparotomy, ITP, hypothyroid, diabetes mellitus type 2, previous tobacco dependence. POD #14 robotic assisted thoracoscopic left upper lobectomy with mediastinal lymph node dissection and fiberoptic bronchoscopy with clearance of mucous plug , pathology demonstrating squamous cell carcinoma. Gastroparesis, an unexpected but potential outcome given the patient's long- standing history of diabetes. POD #[address] Calderón. POD #3 bronchoscopy, endobronchial brushings of the distal mainstem bronchus, endobronchial biopsy of the distal left mainstem bronchus and washings of the distal left mainstem bronchus. Postoperative left pleural effusion, an unexpected but potential outcome of surgery. Postoperative urinary retention with incomplete bladder emptying, history of long-standing diabetes mellitus. Postoperative elevation of her left hemidiaphragm, and unexpected but potential outcome of surgery. POD #1 fiberoptic bronchoscopy. Patient's currently laying in bed in no acute distress. States pain is controlled currently. Does complain of shortness of breath with exertion. Has been ambulating the hallways multiple times. Objective - Vital Signs Vital signs: Vital Signs Temp 97.4 F L 09/21/17 08:00 Pulse 76 09/21/17 08:53 Resp 18 09/21/17 08:00 BP 117/67 09/21/17 08:00 Pulse Ox 96 09/21/17 08:33 Intake & Output 09/20/17 09/21/17 09/21/17 18:59 06:59 18:59 Intake Total 480 510 Balance 480 510 Weight 56.3 kg Intake: IV 220 0.9 220 Intake, IV Titration 50 Amount Piperacillin-Tazobactam 3 50 .375 gm In Dextrose/Water 1 50ml.bag @ 12.5 mls/hr IVPB Q8HR REY Rx#: [id number] Oral 480 240 Other: Voiding Method Toilet # Voids 1 3 # Bowel Movements 0 - Constitutional General appearance: Present: cooperative, no acute distress - Respiratory Details: Lungs sounds very diminished on the left. Respirations even, nonlabored. Currently on room air with oxygen saturation 94%. Able to achieve 750 mL on incentive spirometry. - Cardiovascular Details: S1, S2 present. Regular rate and rhythm, sinus rhythm on telemetry. Palpable peripheral pulses bilaterally. No edema present. No calf pain or tenderness noted. SCDs present. - Gastrointestinal Gastrointestinal Comment(s): Abdomen soft, nontender, nondistended. Active bowel sounds 4 quadrants. Tolerating diet. - Genitourinary Genitourinary Comment(s): Continues to void clear, yellow urine. - Integumentary Integumentary Comment(s): Skin is warm and dry with evidence of good perfusion. Left lateral wall incisions well approximated. - Neurologic Neurologic: Present: CNII-XII intact - Musculoskeletal Musculoskeletal: Present: gait normal, strength equal bilaterally - Psychiatric Psychiatric: Present: A&O x's 3, appropriate affect, intact judgment & insight - Allied health notes Allied health notes reviewed: nursing - Labs CBC & Chem 7: 09/21/17 05:58 09/21/17 05:58 Labs: Abnormal Lab Results - Last 24 Hours (Table) 09/20/17 09/20/17 09/20/17 Range/Units 12:21 16:43 20:54 WBC (3.8-10.6) k/uL Hgb (11.4-16.0) gm/dL Plt Count (150-450) k/uL Sodium (137-145) mmol/L Potassium (3.5-5.1) mmol/L BUN (7-17) mg/dL Glucose (74-99) mg/dL POC Glucose (mg/dL) 287 H 303 H 334 H (75-99) mg/dL 09/21/17 09/21/17 09/21/17 Range/Units 05:58 05:58 05:59 WBC 13.3 H (3.8-10.6) k/uL Hgb 10.9 L (11.4-16.0) gm/dL Plt Count 582 H (150-450) k/uL Sodium 134 L (137-145) mmol/L Potassium 5.2 H (3.5-5.1) mmol/L BUN 21 H (7-17) mg/dL Glucose 295 H (74-99) mg/dL POC Glucose (mg/dL) 271 H (75-99) mg/dL Microbiology - Last 24 Hours (Table) 09/18/17 11:00 Gram Stain - Final Bronchoalviolar Lavage - Left Bronchial Washings Culture - Final - Imaging and Cardiology Chest x-ray: report reviewed, image reviewed Assessment and Plan (1) Mass of upper lobe of left lung Current Visit: Yes Status: Acute Code(s): R91.8 - OTHER NONSPECIFIC ABNORMAL FINDING OF LUNG FIELD SNOMED Code(s): 208863937 (2) Coronary artery disease Current Visit: Yes Status: Chronic Code(s): I25.10 - ATHSCL HEART DISEASE OF [place] CORONARY ARTERY W/O ANG PCTRS SNOMED Code(s): 60222589 (3) History of heart artery stent Current Visit: Yes Status: Chronic Code(s): Z95.5 - PRESENCE OF CORONARY ANGIOPLASTY IMPLANT AND GRAFT SNOMED Code(s): 126583171 (4) Hypothyroid Current Visit: Yes Status: Chronic Code(s): E03.9 - HYPOTHYROIDISM, UNSPECIFIED SNOMED Code(s): 55646864 (5) Diabetes mellitus Current Visit: Yes Status: Chronic Code(s): E11.9 - TYPE 2 DIABETES MELLITUS WITHOUT COMPLICATIONS SNOMED Code(s): 41359177 (6) Tobacco dependence in remission Current Visit: Yes Status: Resolved Code(s): F17.201 - NICOTINE DEPENDENCE, UNSPECIFIED, IN REMISSION SNOMED Code(s): 550214429 (7) History of gastric ulcer Current Visit: Yes Status: Resolved Code(s): Z87.19 - PERSONAL HISTORY OF OTHER DISEASES OF THE DIGESTIVE SYSTEM SNOMED Code(s): 679039188 (8) History of ITP Current Visit: Yes Status: Resolved Priority: Medium Code(s): Z86.2 - PRSNL HISTORY OF DIS OF THE BLD/BLD-FORM ORG/IMMUN [facility] SNOMED Code(s): 670807608 Plan: 1. Encourage incentive spirometry use 10 times every hour. Patient needs aggressive pulmonary toileting. 2. Continue Reglan for gastroparesis. 3. Encourage continued smoking cessation. 4. Bronchodilators, steroids, antibiotics per pulmonology. Will discuss switching to oral antibiotics and steroids for discharge home. 5. Pain control with ordered medication regimen. 6. GI/DVT prophylaxis. 7. Increase activity, ambulate in hallway. PT/OT following. 8. Continue Flomax per urology. 9. Continue current home medication regimen. 10. Anticipate discharge to home in the next 24-48 hours. Time with Patient: Greater than 30
--- NOTE | 2017-09-21 10:16 | P.PN ---
Subjective Progress Note Date: 09/21/17 Principal diagnosis: Left upper lobe mass, status post robotic-assisted thorascopic left upper lobe lobectomy with mediastinal lymph node dissection. 66-year-old female patient with known history of COPD and FEV1 of 70% of predicted, was found to have a left upper lobe mass that showed intense uptake in the PET scan. Based on that, the patient was taken to surgery and she underwent a robotic-assisted thoracoscopy and left upper lobe resection with mediastinal lymph node dissection. The patient is postop day #4. On today's evaluation, the patient is still has a left-sided chest tube. The patient has a small amount of air leak on today's evaluation. The patient has drained approximately 75 mL of serosanguineous drainage overnight and to 30 ML's over the past 24 hours. The patient is able to continue using incentive spirometer and she is pulling up to 1000. She is on oxygen at 2 L/m nasal cannula. Hemodynamically stable. Surgical wound is dry clean and intact. No altered mentation. No chest pain. Pain is under good control for now. The chest x- ray that was done today showed a tiny 5-10% left apical pneumothorax. There is also a left lower lobe consolidation pleural effusion. There is stomach distention and there is also some periods emphysema along the left chest wall. On 09/11/2017 patient seen in follow-up on selective care unit. Today's chest x -ray showed 5-10% stable pneumothorax on the right, persistent marked distention of the gastric air bubble. Chest tube has been discontinued, patient continues to use her incentive spirometry. KUB x-ray was obtained, and showed massive distention of the gastric air bubble, and fecal impaction. Patient had a bowel movement last night, and again this morning. Abdomen is soft, and nontender. Pulse ox on 2 L per nasal cannula was 100%, her pulse ox with ambulation in the room was 96%, patient is comfortable, denies any dyspnea. Lung sounds are positive for diminished on the left compared to the right, though no rhonchi, no wheezes noted. On 09/12/2017 I'm seeing this patient for a follow-up. 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 Currently the patient is postop day #5. The left-sided chest tube has been removed. One concern was a significant gastric distention that was seen on the chest x-ray and abdominal films. The patient had some increased stool a combination within the large bowel for which the patient was given laxative with good results and the patient has been able to pass bowel movements. However, there was still concern of the large gastric distention that was seen and based on that a CAT scan of the abdomen and pelvis was done this afternoon that obviously showed postsurgical changes within the left lung. Specifically her was a tiny left- sided pneumothorax anteriorly and evidence of subcutaneous emphysema tracking down to the left flank area. The residual left lower lobe was well expanded. There was marked gastric distention and there was also segmental limitation and narrowing of the duodenum without any obstructions seen. No NG tube was inserted and the patient was still asymptomatic and she was able to pass bowel movements and she does not have any nausea or emesis. There was some prominent fluid-filled small bowel loops in the lower abdomen and pelvis that could also potentially present some ileus. The patient had rectal wall thickening beyond an area of anastomosis and sigmoid resection and there was some fecal material within the large bowel. Based on the radiologist's recommendations, there was a need for a EGD and colonoscopy to assess these abnormalities and investigate this findings further. Nevertheless, despite his ongoing changes, the patient is not acting any septic no she is behaving as having a bowel obstruction. No abdominal distention. No nausea or emesis. She is ambulating. She is currently on room air oxygen. On 09/13/2017 patient seen in follow-up on [facility] care unit. Abdomen/pelvis CT was obtained yesterday, showed marked gastric distention with segmental dilatation and narrowing of the duodenum. There was some prominent fluid- filled small bowel loops in the lower abdomen and possible ileus or enteritis. There was some rectal wall thickening And evidence of prior distal sigmoid resection and reanastomosis. Patient denies any nausea, or vomiting. She has been receiving Colace, Reglan, yesterday she received Dulcolax suppository, small results. There is still evidence of a large amount of stool in the large colon. GI service has been consulted, and is considering the patient for upper endoscopy today. Patient is currently nothing by mouth. She she has mild diffuse tenderness in the left upper quadrant To palpation. Today's labs were reviewed, and essentially unremarkable. Chest x-ray results from today was reviewed by Dr. Milan, and shows stable left apical pneumothorax post chest tube removal measuring 5-10%. Persistent distention of the gastric air bubble. From pulmonary standpoint patient denies any acute complaints, no dyspnea, she is compliant with her incentive spirometry, she has been ambulating. Pulse ox on 2 L per nasal cannula is 99%. Sounds are clear on the right, diminished over left lower lobe, wheezes, no rhonchi, no rales noted. The patient is seen again today 09/14/2017 in follow-up on the selective care unit. Postoperative day #7. She is currently awake and alert in no acute distress. She denies any worsening shortness of breath, cough or congestion. She is maintaining O2 saturations in the upper 90s on 2 L/m per nasal cannula. Today's chest x-ray continues to show persistent 5-10% left apical pneumothorax. Stable compared to previous. She did undergo EGD this morning and was found to have retained partially digested food in the stomach with no evidence of mechanical obstruction to the gastric outlet for any duodenal pathology. Consideration gastroparesis/ileus. Nasogastric tube remains in place. On today's evaluation of 09/15/2017, I'm seeing this patient for a follow-up. The patient is looking well. She is ambulating. Chest x-ray from today shows a small air-fluid level within the left upper lobe. I'm aware that the patient had a small loculated pneumothorax and on today's chest x-ray there is a small hydropneumothorax. I was asked to consider a thoracentesis on this patient. Ultrasound of the left chest showed no significant pleural fluid the cannulation and based on that I'm going to wait forthat the patient is doing well and the patient is on room air oxygen. She is tolerating her diet. She is ambulating. No NG tube insertion. No abdominal distention. No fever or chills. Surgical wound site is clean. No other significant events overnight and will continue to follow. 1 she is having issues with urinary retention and the patient be asked to be seen by urology. The urinary catheter was taken out yesterday and we are monitoring the post void residual. On units in this patient for a follow-up. The chest x-ray shows further opacification of the left lung along with a small air-fluid levels in the left apical area. Left hemidiaphragm remains elevated and the stomach is less distended. Based on all this, CAT scan of the chest was requested that was done without contrast and the patient has a small pneumothorax in the left apex estimated to be less than 5% of the total lung volume. There is a small to moderate-sized pleural effusion which is loculated anteriorly and posteriorly. There is obviously an area of hydropneumothorax. In addition, the left lower lobe was quite opacified and there is extensive consolidation which raises the concern for pneumonia within the left lung. There is obvious volume loss and shift at least on structures of the left. Despite all this, the patient remains on room air. No significant fever. No chills. No nausea or vomiting. No abdominal pain. No other complaints otherwise for now. On 09/17/2017, I evaluated the patient, and evaluated her chest x-ray and CT of the chest, patient apparently developed complete opacification of the left lung. I tried to schedule the patient for bronchoscopy now, however the patient already ate, and we'll try to schedule the bronchoscopy most likely in the next 24 hours. Seems to be a picture of mucous plugging involving the left mainstem bronchus. Patient will need to be bronchoscoped, and most likely extract mucous plugs and lavage of the left lung will be done. Surprisingly the patient is not in much respiratory distress. WBC count is 4.6 hemoglobin is 10.2 basic metabolic profile is normal. The patient is seen today 09/18/2017 in follow-up on the selective care unit. She remains awake and alert in no acute distress. She is maintaining good O2 saturations in the 90s on room air. She's been afebrile. White count 12.7. Chest x-ray continues to show near complete opacification of the left lung. The plan is for bronchoscopy by Dr. Borja this morning. The patient is seen again today 09/19/2017 in follow-up on the selective care unit. She is currently ambulating in the hallway. She is in no acute distress. She is maintaining good O2 saturations in the 90s on room air. She' s been afebrile. Hemodynamically stable. Today's chest x-ray continues to show near complete opacification of the left hemithorax with volume loss. White count 10.8. Preliminary bronchial wash cultures reveal no growth. She is continued on Zosyn, bronchodilators and Decadron. The patient was seen today 09/20/2017 in follow-up on the selective care unit. She remains awake and alert in no acute distress she continues to maintain good O2 saturations in the 90s on room air. Most recent chest x-ray continued to show nearly complete opacification the left lung. Diminished. The plan is for repeat bronchoscopy by Dr. Jules today. White count 11.2. Hemoglobin 10.0. Creatinine 0.60. The patient is seen again today 09/21/2017 in follow-up on the selective care unit. She remains awake and alert in no acute distress. She's been up emulating in the hallway. She denies any worsening shortness of breath cough or congestion. She continues to maintain good O2 saturations in the 90s on room air. She did undergo a repeat bronchoscopy yesterday by Dr. Jules. He did fine continued swelling, erythema and some degree of granulation tissue at the orifice of the left lower lobe but there was some improvement. She is continued on steroids, bronchodilators and Zosyn. Objective - Vital Signs Vital signs: Vital Signs Temp 97.4 F L 09/21/17 08:00 Pulse 76 09/21/17 08:53 Resp 18 09/21/17 08:00 BP 117/67 09/21/17 08:00 Pulse Ox 96 09/21/17 08:33 Intake & Output 09/20/17 09/21/17 09/21/17 18:59 06:59 18:59 Intake Total 480 510 Balance 480 510 Weight 56.3 kg Intake: IV 220 0.9 220 Intake, IV Titration 50 Amount Piperacillin-Tazobactam 3 50 .375 gm In Dextrose/Water 1 50ml.bag @ 12.5 mls/hr IVPB Q8HR [facility] Rx#: [id number] Oral 480 240 Other: Voiding Method Toilet # Voids 1 3 # Bowel Movements 0 - Exam Gen. appearance the patient is calm comfortable likely distress Head exam was generally normal. There was no scleral icterus or corneal arcus. Mucous membranes were moist. . Neck was supple and without jugular venous distension, thyromegaly, or carotid bruits. Carotids were easily palpable bilaterally. There was no adenopathy. Lungs sounds are diminished on the left compared to the right. The patient also has a subcutaneous emphysema along the left lateral chest. Chest tube has been discontinued Cardiac exam revealed the PMI to be normally situated and sized. The rhythm was regular and no extrasystoles were noted during several minutes of auscultation. The first and second heart sounds were normal and physiologic splitting of the second heart sound was noted. There were no murmurs, rubs, clicks, or gallops. Abdominal exam revealed normal bowel sounds. The abdomen was soft, non-tender, and without masses, organomegaly, or appreciable enlargement of the abdominal aorta. Examination of the extremities revealed easily palpable radial, femoral and pedal pulses. There was no cyanosis, clubbing or edema. Examination of the skin revealed no evidence of significant rashes, suspicious appearing nevi or other concerning lesions. Neurologically the patient is awake and alert and there is no focal neurological deficits. - Labs CBC & Chem 7: 09/21/17 05:58 09/21/17 05:58 Labs: Abnormal Lab Results - Last 24 Hours (Table) 09/20/17 09/20/17 09/20/17 Range/Units 12:21 16:43 20:54 WBC (3.8-10.6) k/uL Hgb (11.4-16.0) gm/dL Plt Count (150-450) k/uL Sodium (137-145) mmol/L Potassium (3.5-5.1) mmol/L BUN (7-17) mg/dL Glucose (74-99) mg/dL POC Glucose (mg/dL) 287 H 303 H 334 H (75-99) mg/dL 09/21/17 09/21/17 09/21/17 Range/Units 05:58 05:58 05:59 WBC 13.3 H (3.8-10.6) k/uL Hgb 10.9 L (11.4-16.0) gm/dL Plt Count 582 H (150-450) k/uL Sodium 134 L (137-145) mmol/L Potassium 5.2 H (3.5-5.1) mmol/L BUN 21 H (7-17) mg/dL Glucose 295 H (74-99) mg/dL POC Glucose (mg/dL) 271 H (75-99) mg/dL Microbiology - Last 24 Hours (Table) 09/18/17 11:00 Gram Stain - Final Bronchoalviolar Lavage - Left Bronchial Washings Culture - Final Assessment and Plan Assessment: Assessment: 1 robotic-assisted thoracoscopic left upper lobe lobectomy with mediastinal lymph node dissection for a left upper lobe mass. 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 The patient has developed near complete opacification of the left lung. Status post bronchoscopy on 09/18 revealing near complete occlusion of the left mainstem bronchus. Repeat bronchoscopy on 09/20/[address] Jules revealed some improvement in the opening of the left lower lobe but with continued edema, erythema and some granulomatous tissue. She continues on Decadron 2 COPD at baseline with an FEV1 of 70% of predicted preoperatively 3 left hemidiaphragmatic elevation following a left upper lobe resection. This could be related to volume loss/lobectomy. At the same and the patient has some gastric distention, a symptomatically at this stage. 4 abdominal distention and discomfort secondary to suspected gastroparesis/ ileus. EGD revealed retained partially digested food in the stomach with no evidence of mechanical obstruction to the gastric outlet. 5 hypothyroidism 6 diabetes mellitus 7 history of ITP 8 history of smoking currently in remission 9 coronary artery disease with previous history of coronary intervention and stenting Plan: The patient was seen and evaluated by Dr. Borja. Yesterday's bronchoscopy results reviewed.. We will continue with antibiotics, Decadron, bronchodilators. Increase her activity as tolerated. We'll continue to follow. I, the cosigning physician, performed a history & physical examination of the patient. Lungs sounds with few scattered rhonchi more so on the left, significantly diminished on the left. Maintaining good O2 saturations in the 90s on room air. I discussed the assessment and plan of care with my nurse practitioner, Gaye sTang. I attest to the above note as dictated by her.
[2017-09-21 11:42] LABS: Glucose,Whole Blood 401 mg/dL (75-99)
[2017-09-21 13:07] VITALS: RESP 18
[2017-09-21 16:39] LABS: Glucose,Whole Blood 299 mg/dL (75-99)
--- NOTE | 2017-09-21 17:47 | P.PN ---
Subjective Progress Note Date: 09/21/17 Principal diagnosis: Left upper lobe lung mass status post lobectomy 66 years old female with past medical history of diabetes mellitus, fibromyalgia , GERD, idiopathic thrombocytopenia purpura, IBS, diverticulitis, herniated disc at L3-L4, restless leg syndrome lung cancer stage I with left upper lobe mass. Patient originally came in with shortness of breath for COPD exacerbation suspicion she got CAT scan which found to have left upper lobe mass last surgery was small but deep in the lung parenchyma. Lobectomy was recommended by the surgeon which the patient had on 09/06/2017. Patient had CT of the abdomen and pelvis on 09/12/2017 showing the stomach is markedly distended and rectal wall. GI team were consulted and recommended NG tube followed by EGD: No mechanical obstruction of the stomach outlet and patient was diagnosed for possible gastroparesis. Also they recommended outpatient colonoscopy. Chest x-ray from today showed left lung opacification with elevation of the left hemidiaphragm. CT of the chest without contrast: Showed hydropneumothorax with 5% pneumothorax of the appendix and small to moderate pleural effusion, and possible mucous plug of the left main bronchus with severe consolidation and COPD Objective - Vital Signs Vital signs: Vital Signs Temp 97.0 F L 09/21/17 15:19 Pulse 72 09/21/17 15:19 Resp 18 09/21/17 15:19 BP 169/75 09/21/17 15:19 Pulse Ox 93 L 09/21/17 15:19 Intake & Output 09/20/17 09/21/17 09/21/17 18:59 06:59 18:59 Intake Total 480 510 520 Balance 480 510 520 Weight 56.3 kg Intake: IV 220 240 0.9 220 240 Intake, IV Titration 50 100 Amount Piperacillin-Tazobactam 3 50 100 .375 gm In Dextrose/Water 1 50ml.bag @ 12.5 mls/hr IVPB Q8HR [facility] Rx#: [id number] Oral 480 240 180 Other: Voiding Method Toilet Toilet # Voids 1 3 # Bowel Movements 0 - Exam - Constitutional General appearance: Present: average body habitus, cooperative, no acute distress - EENT Eyes: Present: anicteric sclerae, EOMI, PERRLA, normal appearance ENT: Present: hearing grossly normal, normal oropharynx Ears: bilateral: normal - Neck Neck: Present: normal ROM. Absent: lymphadenopathy, rigidity, thyromegaly Carotids: negative: bruit present Thyroid: bilateral: normal size, negative: enlarged, nodule - Respiratory Respiratory: bilateral: CTA, negative: rales, rhonchi, wheezing - Cardiovascular Rhythm: regular Heart sounds: normal: S1, S2 Abnormal Heart Sounds: Absent: systolic murmur, diastolic murmur - Gastrointestinal General gastrointestinal: Present: normal bowel sounds, soft. Absent: distended , organomegaly, tenderness - Genitourinary Genitourinary Comment(s): deferred - Integumentary Integumentary: Present: normal turgor. Absent: jaundiced, rash, ulcer - Neurologic Neurologic: Present: CNII-XII intact. Absent: focal deficits - Musculoskeletal Musculoskeletal: Present: gait normal, strength equal bilaterally - Psychiatric Psychiatric: Present: A&O x's 3, appropriate affect, intact judgment & insight - Labs CBC & Chem 7: 09/21/17 05:58 09/21/17 05:58 Labs: Abnormal Lab Results - Last 24 Hours (Table) 09/20/17 09/20/17 09/21/17 Range/Units 16:43 20:54 05:58 WBC (3.8-10.6) k/uL Hgb (11.4-16.0) gm/dL Plt Count (150-450) k/uL Sodium 134 L (137-145) mmol/L Potassium 5.2 H (3.5-5.1) mmol/L BUN 21 H (7-17) mg/dL Glucose 295 H (74-99) mg/dL POC Glucose (mg/dL) 303 H 334 H (75-99) mg/dL 09/21/17 09/21/17 09/21/17 Range/Units 05:58 05:59 11:39 WBC 13.3 H (3.8-10.6) k/uL Hgb 10.9 L (11.4-16.0) gm/dL Plt Count 582 H (150-450) k/uL Sodium (137-145) mmol/L Potassium (3.5-5.1) mmol/L BUN (7-17) mg/dL Glucose (74-99) mg/dL POC Glucose (mg/dL) 271 H 401 H (75-99) mg/dL Microbiology - Last 24 Hours (Table) 09/18/17 11:00 Fungal Culture - Preliminary Bronchoalviolar Lavage - Left Rosa Maria albicans Assessment and Plan Assessment: -Left upper lobe mass. Lung cancer stage I. Status post lobectomy. Pulmonary/ intensive care unit specialist and thoracic surgeon on the case. -Possible left pneumonia. Chest x-ray shows consolidations of the left lung. Mild leukocytosis. Patient started on IV Zosyn and follow-up chest x-ray the morning with possible need for bronchoscopy as per pulmonary team with R following the case. Thoracic surgeon also follow seeing the patient -Gastroparesis. GI following the patient. Continue with conservative treatment. -Rectal wall thickening. GI consult is noted-and they recommended outpatient colonoscopy -Urinary retention and incomplete emptying. Neurologist evaluation is noted. ditropan was DC'd. This was placed for straight cath also -Possible UTI, UC showing Rosa Maria. continue with Zosyn and Diflucan -Abnormal liver function test, follow-up level -Diabetes mellitus continue with Levemir 20 units DVT prophylaxis on heparin GI prophylaxis Protonix Prognosis is guarded Time with Patient: Greater than 30
[2017-09-21] MEDS: ACETAMINOPHEN TAB 325 MG TAB PO PRN (19:42)
[2017-09-21 20:45] LABS: Glucose,Whole Blood 439 mg/dL (75-99)
[2017-09-21] MEDS: INSULIN DETEMIR 100 UNIT/ML 10 ML VIAL SQ SCH (20:50)
[2017-09-21] MEDS: ALPRAZolam 0.25 MG TAB PO PRN (20:56)
[2017-09-22 02:26] LABS: Glucose,Whole Blood 186 mg/dL (75-99)
[2017-09-22] MEDS: DEXAMETHASONE SOD PHOSPHATE 4 MG/ML 1 ML VIAL IV SCH ×2 (05:45→12:14)
[2017-09-22] MEDS: METOCLOPRAMIDE 5 MG/ML 2 ML VIAL IVP SCH ×2 (05:46→12:14)
[2017-09-22 06:16] LABS: HCT 35.4 % (34.0-46.0); HGB 11.3 gm/dL (11.4-16.0); MCH 27.8 pg (25.0-35.0); Mean Platelet Volume 7.1; Platelet Count 616 k/uL (150-450); RBC 4.07 m/uL (3.80-5.40); RDW 14.4 % (11.5-15.5); WBC 15.2 k/uL (3.8-10.6)
[2017-09-22 06:22] LABS: Glucose,Whole Blood 166 mg/dL (75-99)
[2017-09-22] MEDS: INSULIN ASPART 100 UNIT/ML 1 ML 10 ML VIAL SQ SCH ×2 (06:43→12:14)
[2017-09-22 06:46] LABS: Anion Gap 11 mmol/L; Blood Urea Nitrogen 20 mg/dL (7-17); Calcium 9.2 mg/dL (8.4-10.2); Carbon Dioxide 28 mmol/L (22-30); Chloride 98 mmol/L (98-107); Glucose 163 mg/dL (74-99); Potassium 4.9 mmol/L (3.5-5.1); Sodium 137 mmol/L (137-145)
--- NOTE | 2017-09-22 08:01 | XR ---
EXAMINATION TYPE: XR chest 2V DATE OF EXAM: 09/22/2017 COMPARISON: Prior chest x-ray 09/21/2017 HISTORY: Left upper lobectomy, abnormal chest x-ray TECHNIQUE: Frontal and lateral views of the chest are obtained. FINDINGS: Findings are similar to previous. Interstitium may be improved. IMPRESSION: May be some improvement in aeration, volume status in the right lung. Postop changes, po ssible associated atelectasis with volume loss in the left hemithorax.
[2017-09-22] MEDS: BUDESONIDE 1 MG/2 ML NEBU INHALATION SCH (08:40)
[2017-09-22] MEDS: FORMOTEROL FUMARATE 20 MCG/2 ML NEBU INHALATION SCH (08:40)
[2017-09-22] MEDS: IPRATROPIUM-ALBUTEROL 3 ML NEB IH SCH ×2 (08:40→12:13)
[2017-09-22] MEDS: HEPARIN SODIUM,PORCINE 5,000 UNIT/ML 1 ML VIAL SQ SCH (09:00)
[2017-09-22] MEDS: CLOPIDOGREL 75 MG TAB PO SCH (09:00)
[2017-09-22] MEDS: ATORVASTATIN 80 MG TAB PO SCH (09:00)
[2017-09-22] MEDS: DOCUSATE 100 MG CAP PO SCH (09:00)
[2017-09-22] MEDS: PIPERACILLIN-TAZOBACTAM 3.375 GM in DEXTROSE/WATER 1 50ML.BAG IVPB SCH (09:00)
[2017-09-22] MEDS: LISINOPRIL 5 MG TAB PO SCH (09:00)
[2017-09-22] MEDS: ASPIRIN 81 MG PO SCH (09:00)
[2017-09-22] MEDS: METOPROLOL TARTRATE 25 MG TAB PO SCH (09:01)
[2017-09-22] MEDS: PANTOPRAZOLE 40 MG/10 ML VIAL IVP SCH (09:01)
[2017-09-22] MEDS: traMADol 50 MG TAB PO SCH ×2 (09:01→12:14)
[2017-09-22] MEDS: TAMSULOSIN 0.4 MG CAP.ER.24H PO SCH (09:01)
--- NOTE | 2017-09-22 09:06 | P.PN ---
Subjective Progress Note Date: 09/22/17 Principal diagnosis: Left upper lobe mass. Medical history of coronary artery disease with recent stenting of the left anterior descending coronary artery in December 2016, perforated gastric ulcer with exploratory laparotomy, ITP, hypothyroid, diabetes mellitus type 2, previous tobacco dependence. POD #15 robotic assisted thoracoscopic left upper lobectomy with mediastinal lymph node dissection and fiberoptic bronchoscopy with clearance of mucous plug , pathology demonstrating squamous cell carcinoma. Gastroparesis, an unexpected but potential outcome given the patient's long- standing history of diabetes. POD #[address] Calderón. POD #4 bronchoscopy, endobronchial brushings of the distal mainstem bronchus, endobronchial biopsy of the distal left mainstem bronchus and washings of the distal left mainstem bronchus. Postoperative left pleural effusion, an unexpected but potential outcome of surgery. Postoperative urinary retention with incomplete bladder emptying, history of long-standing diabetes mellitus. Postoperative elevation of her left hemidiaphragm, and unexpected but potential outcome of surgery. POD #2 fiberoptic bronchoscopy. Patient's currently laying in bed in no acute distress. States pain is controlled currently. No new complaints. States she feels ready to go home to her daughter's today. Objective - Vital Signs Vital signs: Vital Signs Temp 98.3 F 09/22/17 03:48 Pulse 64 09/22/17 08:40 Resp 18 09/22/17 03:48 BP 136/82 09/22/17 03:48 Pulse Ox 94 L 09/22/17 03:48 Intake & Output 09/21/17 09/22/17 09/22/17 18:59 06:59 18:59 Intake Total 700 175 Balance 700 175 Weight 55.2 kg Intake: IV 240 0.9 240 Intake, IV Titration 100 50 Amount Piperacillin-Tazobactam 3 100 50 .375 gm In Dextrose/Water 1 50ml.bag @ 12.5 mls/hr IVPB Q8HR REY Rx#: [id number] Oral 360 125 Other: Voiding Method Toilet Toilet # Voids 2 - Constitutional General appearance: Present: cooperative, no acute distress - Respiratory Details: Lungs sounds very diminished on the left. Respirations even, nonlabored. Currently on room air with oxygen saturation 94%. Able to achieve 750 mL on incentive spirometry. - Cardiovascular Details: S1, S2 present. Regular rate and rhythm, sinus rhythm on telemetry. Palpable peripheral pulses bilaterally. No edema present. No calf pain or tenderness noted. SCDs present. - Gastrointestinal Gastrointestinal Comment(s): Abdomen soft, nontender, nondistended. Active bowel sounds 4 quadrants. Tolerating diet. - Genitourinary Genitourinary Comment(s): Continues to void clear, yellow urine. - Integumentary Integumentary Comment(s): Skin is warm and dry with evidence of good perfusion. Left lateral wall incisions well approximated. - Neurologic Neurologic: Present: CNII-XII intact - Musculoskeletal Musculoskeletal: Present: gait normal, strength equal bilaterally - Psychiatric Psychiatric: Present: A&O x's 3, appropriate affect, intact judgment & insight - Allied health notes Allied health notes reviewed: nursing - Labs CBC & Chem 7: 09/22/17 05:39 09/22/17 05:39 Labs: Abnormal Lab Results - Last 24 Hours (Table) 09/21/17 09/21/17 09/21/17 Range/Units 11:39 16:33 20:43 WBC (3.8-10.6) k/uL Hgb (11.4-16.0) gm/dL Plt Count (150-450) k/uL BUN (7-17) mg/dL Glucose (74-99) mg/dL POC Glucose (mg/dL) 401 H 299 H 439 H (75-99) mg/dL 09/22/17 09/22/17 09/22/17 Range/Units 02:24 05:39 05:39 WBC 15.2 H (3.8-10.6) k/uL Hgb 11.3 L (11.4-16.0) gm/dL Plt Count 616 H (150-450) k/uL BUN 20 H (7-17) mg/dL Glucose 163 H (74-99) mg/dL POC Glucose (mg/dL) 186 H (75-99) mg/dL 09/22/17 Range/Units 06:17 WBC (3.8-10.6) k/uL Hgb (11.4-16.0) gm/dL Plt Count (150-450) k/uL BUN (7-17) mg/dL Glucose (74-99) mg/dL POC Glucose (mg/dL) 166 H (75-99) mg/dL Microbiology - Last 24 Hours (Table) 09/18/17 11:00 Fungal Culture - Preliminary Bronchoalviolar Lavage - Left Rosa Maria albicans - Imaging and Cardiology Chest x-ray: report reviewed, image reviewed Assessment and Plan (1) Mass of upper lobe of left lung Current Visit: Yes Status: Acute Code(s): R91.8 - OTHER NONSPECIFIC ABNORMAL FINDING OF LUNG FIELD SNOMED Code(s): 986230157 (2) Coronary artery disease Current Visit: Yes Status: Chronic Code(s): I25.10 - ATHSCL HEART DISEASE OF [place] CORONARY ARTERY W/O ANG PCTRS SNOMED Code(s): 43783826 (3) History of heart artery stent Current Visit: Yes Status: Chronic Code(s): Z95.5 - PRESENCE OF CORONARY ANGIOPLASTY IMPLANT AND GRAFT SNOMED Code(s): 792069184 (4) Hypothyroid Current Visit: Yes Status: Chronic Code(s): E03.9 - HYPOTHYROIDISM, UNSPECIFIED SNOMED Code(s): 73079154 (5) Diabetes mellitus Current Visit: Yes Status: Chronic Code(s): E11.9 - TYPE 2 DIABETES MELLITUS WITHOUT COMPLICATIONS SNOMED Code(s): 11411336 (6) Tobacco dependence in remission Current Visit: Yes Status: Resolved Code(s): F17.201 - NICOTINE DEPENDENCE, UNSPECIFIED, IN REMISSION SNOMED Code(s): 621146889 (7) History of gastric ulcer Current Visit: Yes Status: Resolved Code(s): Z87.19 - PERSONAL HISTORY OF OTHER DISEASES OF THE DIGESTIVE SYSTEM SNOMED Code(s): 204706717 (8) History of ITP Current Visit: Yes Status: Resolved Priority: Medium Code(s): Z86.2 - PRSNL HISTORY OF DIS OF THE BLD/BLD-FORM ORG/IM[facility]UN [facility] SNOMED Code(s): 572527450 Plan: 1. Encourage incentive spirometry use 10 times every hour. Patient needs aggressive pulmonary toileting. 2. Encourage continued smoking cessation. 3. Bronchodilators, steroids, antibiotics per pulmonology. We will discharge to home on oral Levaquin and prednisone taper per Dr. Borja. 4. Pain control with ordered medication regimen. 5. GI/DVT prophylaxis. 6. Increase activity, ambulate in hallway. PT/OT following. 7. Continue Flomax per urology. 8. Continue current home medication regimen. 9. Will discharge to home today. Follow-up appointments made. Patient is to have chest x-ray prior to appointment with Dr. Jules. Time with Patient: Greater than 30
[2017-09-22] MEDS: ALPRAZolam 0.25 MG TAB PO PRN (09:11)
--- NOTE | 2017-09-22 10:50 | P.PN ---
Subjective Progress Note Date: 09/22/17 Principal diagnosis: Left upper lobe mass, status post robotic-assisted thorascopic left upper lobe lobectomy with mediastinal lymph node dissection. 66-year-old female patient with known history of COPD and FEV1 of 70% of predicted, was found to have a left upper lobe mass that showed intense uptake in the PET scan. Based on that, the patient was taken to surgery and she underwent a robotic-assisted thoracoscopy and left upper lobe resection with mediastinal lymph node dissection. The patient is postop day #4. On today's evaluation, the patient is still has a left-sided chest tube. The patient has a small amount of air leak on today's evaluation. The patient has drained approximately 75 mL of serosanguineous drainage overnight and to 30 ML's over the past 24 hours. The patient is able to continue using incentive spirometer and she is pulling up to 1000. She is on oxygen at 2 L/m nasal cannula. Hemodynamically stable. Surgical wound is dry clean and intact. No altered mentation. No chest pain. Pain is under good control for now. The chest x- ray that was done today showed a tiny 5-10% left apical pneumothorax. There is also a left lower lobe consolidation pleural effusion. There is stomach distention and there is also some periods emphysema along the left chest wall. On 09/11/2017 patient seen in follow-up on selective care unit. Today's chest x -ray showed 5-10% stable pneumothorax on the right, persistent marked distention of the gastric air bubble. Chest tube has been discontinued, patient continues to use her incentive spirometry. KUB x-ray was obtained, and showed massive distention of the gastric air bubble, and fecal impaction. Patient had a bowel movement last night, and again this morning. Abdomen is soft, and nontender. Pulse ox on 2 L per nasal cannula was 100%, her pulse ox with ambulation in the room was 96%, patient is comfortable, denies any dyspnea. Lung sounds are positive for diminished on the left compared to the right, though no rhonchi, no wheezes noted. On 09/12/2017 I'm seeing this patient for a follow-up. 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 Currently the patient is postop day #5. The left-sided chest tube has been removed. One concern was a significant gastric distention that was seen on the chest x-ray and abdominal films. The patient had some increased stool a combination within the large bowel for which the patient was given laxative with good results and the patient has been able to pass bowel movements. However, there was still concern of the large gastric distention that was seen and based on that a CAT scan of the abdomen and pelvis was done this afternoon that obviously showed postsurgical changes within the left lung. Specifically her was a tiny left- sided pneumothorax anteriorly and evidence of subcutaneous emphysema tracking down to the left flank area. The residual left lower lobe was well expanded. There was marked gastric distention and there was also segmental limitation and narrowing of the duodenum without any obstructions seen. No NG tube was inserted and the patient was still asymptomatic and she was able to pass bowel movements and she does not have any nausea or emesis. There was some prominent fluid-filled small bowel loops in the lower abdomen and pelvis that could also potentially present some ileus. The patient had rectal wall thickening beyond an area of anastomosis and sigmoid resection and there was some fecal material within the large bowel. Based on the radiologist's recommendations, there was a need for a EGD and colonoscopy to assess these abnormalities and investigate this findings further. Nevertheless, despite his ongoing changes, the patient is not acting any septic no she is behaving as having a bowel obstruction. No abdominal distention. No nausea or emesis. She is ambulating. She is currently on room air oxygen. On 09/13/2017 patient seen in follow-up on [facility] care unit. Abdomen/pelvis CT was obtained yesterday, showed marked gastric distention with segmental dilatation and narrowing of the duodenum. There was some prominent fluid- filled small bowel loops in the lower abdomen and possible ileus or enteritis. There was some rectal wall thickening And evidence of prior distal sigmoid resection and reanastomosis. Patient denies any nausea, or vomiting. She has been receiving Colace, Reglan, yesterday she received Dulcolax suppository, small results. There is still evidence of a large amount of stool in the large colon. GI service has been consulted, and is considering the patient for upper endoscopy today. Patient is currently nothing by mouth. She she has mild diffuse tenderness in the left upper quadrant To palpation. Today's labs were reviewed, and essentially unremarkable. Chest x-ray results from today was reviewed by Dr. Milan, and shows stable left apical pneumothorax post chest tube removal measuring 5-10%. Persistent distention of the gastric air bubble. From pulmonary standpoint patient denies any acute complaints, no dyspnea, she is compliant with her incentive spirometry, she has been ambulating. Pulse ox on 2 L per nasal cannula is 99%. Sounds are clear on the right, diminished over left lower lobe, wheezes, no rhonchi, no rales noted. The patient is seen again today 09/14/2017 in follow-up on the selective care unit. Postoperative day #7. She is currently awake and alert in no acute distress. She denies any worsening shortness of breath, cough or congestion. She is maintaining O2 saturations in the upper 90s on 2 L/m per nasal cannula. Today's chest x-ray continues to show persistent 5-10% left apical pneumothorax. Stable compared to previous. She did undergo EGD this morning and was found to have retained partially digested food in the stomach with no evidence of mechanical obstruction to the gastric outlet for any duodenal pathology. Consideration gastroparesis/ileus. Nasogastric tube remains in place. On today's evaluation of 09/15/2017, I'm seeing this patient for a follow-up. The patient is looking well. She is ambulating. Chest x-ray from today shows a small air-fluid level within the left upper lobe. I'm aware that the patient had a small loculated pneumothorax and on today's chest x-ray there is a small hydropneumothorax. I was asked to consider a thoracentesis on this patient. Ultrasound of the left chest showed no significant pleural fluid the cannulation and based on that I'm going to wait forthat the patient is doing well and the patient is on room air oxygen. She is tolerating her diet. She is ambulating. No NG tube insertion. No abdominal distention. No fever or chills. Surgical wound site is clean. No other significant events overnight and will continue to follow. 1 she is having issues with urinary retention and the patient be asked to be seen by urology. The urinary catheter was taken out yesterday and we are monitoring the post void residual. On units in this patient for a follow-up. The chest x-ray shows further opacification of the left lung along with a small air-fluid levels in the left apical area. Left hemidiaphragm remains elevated and the stomach is less distended. Based on all this, CAT scan of the chest was requested that was done without contrast and the patient has a small pneumothorax in the left apex estimated to be less than 5% of the total lung volume. There is a small to moderate-sized pleural effusion which is loculated anteriorly and posteriorly. There is obviously an area of hydropneumothorax. In addition, the left lower lobe was quite opacified and there is extensive consolidation which raises the concern for pneumonia within the left lung. There is obvious volume loss and shift at least on structures of the left. Despite all this, the patient remains on room air. No significant fever. No chills. No nausea or vomiting. No abdominal pain. No other complaints otherwise for now. On 09/17/2017, I evaluated the patient, and evaluated her chest x-ray and CT of the chest, patient apparently developed complete opacification of the left lung. I tried to schedule the patient for bronchoscopy now, however the patient already ate, and we'll try to schedule the bronchoscopy most likely in the next 24 hours. Seems to be a picture of mucous plugging involving the left mainstem bronchus. Patient will need to be bronchoscoped, and most likely extract mucous plugs and lavage of the left lung will be done. Surprisingly the patient is not in much respiratory distress. WBC count is 4.6 hemoglobin is 10.2 basic metabolic profile is normal. The patient is seen today 09/18/2017 in follow-up on the selective care unit. She remains awake and alert in no acute distress. She is maintaining good O2 saturations in the 90s on room air. She's been afebrile. White count 12.7. Chest x-ray continues to show near complete opacification of the left lung. The plan is for bronchoscopy by Dr. Borja this morning. The patient is seen again today 09/19/2017 in follow-up on the selective care unit. She is currently ambulating in the hallway. She is in no acute distress. She is maintaining good O2 saturations in the 90s on room air. She' s been afebrile. Hemodynamically stable. Today's chest x-ray continues to show near complete opacification of the left hemithorax with volume loss. White count 10.8. Preliminary bronchial wash cultures reveal no growth. She is continued on Zosyn, bronchodilators and Decadron. The patient was seen today 09/20/2017 in follow-up on the selective care unit. She remains awake and alert in no acute distress she continues to maintain good O2 saturations in the 90s on room air. Most recent chest x-ray continued to show nearly complete opacification the left lung. Diminished. The plan is for repeat bronchoscopy by Dr. Jules today. White count 11.2. Hemoglobin 10.0. Creatinine 0.60. The patient is seen again today 09/21/2017 in follow-up on the selective care unit. She remains awake and alert in no acute distress. She's been up emulating in the hallway. She denies any worsening shortness of breath cough or congestion. She continues to maintain good O2 saturations in the 90s on room air. She did undergo a repeat bronchoscopy yesterday by Dr. Jules. He did fine continued swelling, erythema and some degree of granulation tissue at the orifice of the left lower lobe but there was some improvement. She is continued on steroids, bronchodilators and Zosyn. The patient is seen again today 09/22/2017 in follow-up on the selective care unit. She is currently resting quite comfortably in bed. She denies any worsening shortness of breath, cough or congestion. She continues to maintain good O2 saturations in the 90s on room air. Chest x-ray continues to show improved aeration in the left lung. Objective - Vital Signs Vital signs: Vital Signs Temp 96.9 F L 09/22/17 09:01 Pulse 68 09/22/17 09:04 Resp 18 09/22/17 09:01 BP 153/69 09/22/17 09:01 Pulse Ox 94 L 09/22/17 09:01 Intake & Output 09/21/17 09/22/17 09/22/17 18:59 06:59 18:59 Intake Total 700 175 Balance 700 175 Weight 55.2 kg Intake: IV 240 0.9 240 Intake, IV Titration 100 50 Amount Piperacillin-Tazobactam 3 100 50 .375 gm In Dextrose/Water 1 50ml.bag @ 12.5 mls/hr IVPB Q8HR REY Rx#: [id number] Oral 360 125 Other: Voiding Method Toilet Toilet Toilet # Voids 2 - Exam Gen. appearance the patient is calm comfortable likely distress Head exam was generally normal. There was no scleral icterus or corneal arcus. Mucous membranes were moist. . Neck was supple and without jugular venous distension, thyromegaly, or carotid bruits. Carotids were easily palpable bilaterally. There was no adenopathy. Lungs sounds are diminished on the left compared to the right. The patient also has a subcutaneous emphysema along the left lateral chest. Chest tube has been discontinued Cardiac exam revealed the PMI to be normally situated and sized. The rhythm was regular and no extrasystoles were noted during several minutes of auscultation. The first and second heart sounds were normal and physiologic splitting of the second heart sound was noted. There were no murmurs, rubs, clicks, or gallops. Abdominal exam revealed normal bowel sounds. The abdomen was soft, non-tender, and without masses, organomegaly, or appreciable enlargement of the abdominal aorta. Examination of the extremities revealed easily palpable radial, femoral and pedal pulses. There was no cyanosis, clubbing or edema. Examination of the skin revealed no evidence of significant rashes, suspicious appearing nevi or other concerning lesions. Neurologically the patient is awake and alert and there is no focal neurological deficits. - Labs CBC & Chem 7: 09/22/17 05:39 09/22/17 05:39 Labs: Abnormal Lab Results - Last 24 Hours (Table) 09/21/17 09/21/17 09/21/17 Range/Units 11:39 16:33 20:43 WBC (3.8-10.6) k/uL Hgb (11.4-16.0) gm/dL Plt Count (150-450) k/uL BUN (7-17) mg/dL Glucose (74-99) mg/dL POC Glucose (mg/dL) 401 H 299 H 439 H (75-99) mg/dL 09/22/17 09/22/17 09/22/17 Range/Units 02:24 05:39 05:39 WBC 15.2 H (3.8-10.6) k/uL Hgb 11.3 L (11.4-16.0) gm/dL Plt Count 616 H (150-450) k/uL BUN 20 H (7-17) mg/dL Glucose 163 H (74-99) mg/dL POC Glucose (mg/dL) 186 H (75-99) mg/dL 09/22/17 Range/Units 06:17 WBC (3.8-10.6) k/uL Hgb (11.4-16.0) gm/dL Plt Count (150-450) k/uL BUN (7-17) mg/dL Glucose (74-99) mg/dL POC Glucose (mg/dL) 166 H (75-99) mg/dL Microbiology - Last 24 Hours (Table) 09/18/17 11:00 Fungal Culture - Preliminary Bronchoalviolar Lavage - Left Rosa Maria albicans Assessment and Plan Assessment: Assessment: 1 robotic-assisted thoracoscopic left upper lobe lobectomy with mediastinal lymph node dissection for a left upper lobe mass. 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 The patient has developed near complete opacification of the left lung. Status post bronchoscopy on 09/18 revealing near complete occlusion of the left mainstem bronchus. Repeat bronchoscopy on 09/20/[address] Jules revealed some improvement in the opening of the left lower lobe but with continued edema, erythema and some granulomatous tissue. She continues on Decadron 2 COPD at baseline with an FEV1 of 70% of predicted preoperatively 3 left hemidiaphragmatic elevation following a left upper lobe resection. This could be related to volume loss/lobectomy. At the same and the patient has some gastric distention, a symptomatically at this stage. 4 abdominal distention and discomfort secondary to suspected gastroparesis/ ileus. EGD revealed retained partially digested food in the stomach with no evidence of mechanical obstruction to the gastric outlet. 5 hypothyroidism 6 diabetes mellitus 7 history of ITP 8 history of smoking currently in remission 9 coronary artery disease with previous history of coronary intervention and stenting Plan: The patient was seen and evaluated by Dr. Borja. Chest x-ray reviewed. She is cleared for discharge from the pulmonary standpoint. We'll see her in the office in 1 week's time. We'll repeat a chest x-ray then. She'll continue on oral antibiotics in the form of Levaquin. Complete prednisone burst and taper. She is however encouraged to call sooner with any recurrence of symptoms or other questions or concerns. I, the cosigning physician, performed a history & physical examination of the patient. Lungs sounds with few scattered rhonchi more so on the left, significantly diminished on the left. Maintaining good O2 saturations in the 90s on room air. I discussed the assessment and plan of care with my nurse practitioner, Gaye Tsang. I attest to the above note as dictated by her.
--- NOTE | 2017-09-22 11:33 | P.DS ---
Providers Date of admission: 09/06/17 09:51 Expected date of discharge: 09/22/17 Attending physician: Mauri Jules Consults: 09/06/17 15:57 Consult Physician Routine Consulting Provider: Tera Lan Consult Reason/Comments: post TESSA lobectomy Do you want consulting provider notified?: Yes 09/13/17 18:03 Consult Physician Routine Consulting Provider: Walter Dixon Consult Reason/Comments: Urine retention Do you want consulting provider notified?: Yes 09/16/17 09:49 Consult Physician Routine Consulting Provider: Perfecto Varela Consult Reason/Comments: medical management Do you want consulting provider notified?: Already Contacted 09/17/17 23:52 Consult Physician Routine Consulting Provider: Hanh Veliz Consult Reason/Comments: afib rvr Do you want consulting provider notified?: Already Contacted Primary care physician: Nick Brock - Discharge Diagnosis(es) (1) Mass of upper lobe of left lung Current Visit: Yes Status: Acute (2) Coronary artery disease Current Visit: Yes Status: Chronic (3) History of heart artery stent Current Visit: Yes Status: Chronic (4) Hypothyroid Current Visit: Yes Status: Chronic (5) Diabetes mellitus Current Visit: Yes Status: Chronic (6) Tobacco dependence in remission Current Visit: Yes Status: Resolved (7) History of gastric ulcer Current Visit: Yes Status: Resolved (8) History of ITP Current Visit: Yes Status: Resolved Priority: Medium Hospital Course: FINAL DIAGNOSIS: 1. Left upper lobe mass 2. History of coronary artery disease with recent stenting of the left anterior descending coronary artery 3. Perforated gastric ulcer with exploratory laparotomy 4. ITP 5. Hypothyroid 6. Diabetes mellitus type 2 7. Previous tobacco dependence 8. Postoperative gastroparesis 9. Postoperative left pleural effusion 10. Postoperative urinary retention PRINCIPAL PROCEDURE: 1. Robotic-assisted thoracoscopic left upper lobectomy with mediastinal lymph node dissection and fiberoptic bronchoscopy with clearance of mucous plug, pathology demonstrating squamous cell carcinoma 2. EGD performed by Dr. Kemp 3. Bronchoscopy, endobronchial brushings of the distal main stem bronchus endobronchial biopsy of the distal left mainstem bronchus and washings of the distal left mainstem bronchus by Dr. Borja 4. Fiber optic bronchoscopy HISTORY OF PRESENT ILLNESS: This is a 66-year-old female who follows with Dr. Brock on an outpatient basis. She has computed tomography scan of the chest wall in the hospital for an episode of severe reflux, which demonstrated a left upper lobe nodule. She was referred to Dr. Lan who confirmed the presence of a left upper lobe mass. This was further investigated with the CTA and a PET scan. The PET scan was very suspicious for cancer as the left upper lobe nodule turned out to be hypermetabolic and around 1 cm in size, with no increased activity in the mediastinum. There was no evidence of metastasis on the PET scan or CT. There was a left adrenal adenoma as well as a recent breast biopsy which was negative. The patient was referred to Dr. Jules from cardiothoracic surgery for evaluation for lobectomy for suspected stage I left upper lobe carcinoma, without a tissue diagnosis as the mass was small and deep in the lungs. She was recommended to undergo robotic left upper lobectomy. All risks and benefits were explained in detail to the patient and her family, all questions were answered, and consent was obtained to proceed with surgery. HOSPITAL COURSE: The patient was brought to the hospital on 09/06/2017, taken to the preoperative area, prepared in the usual fashion, and subsequently taken to the operating room where Dr. Jules performed a robotic-assisted thoracoscopic left upper lobectomy with mediastinal lymph node dissection and fiberoptic bronchoscopy with clearance of mucous plug, pathology demonstrating squamous cell carcinoma. Upon completion of surgery the patient was extubated, taken to the recovery room for monitoring and rehabilitation, and eventually admitted to [address] [place] [address] for further monitoring and rehabilitation. She did have an episode of postoperative gastroparesis which was confirmed by EGD performed by Dr. Kemp, which did resolve. She experienced postoperative urinary retention which was treated and resolved with Flomax. In addition she developed chest x-ray findings of complete opacification on the left side, and Dr. Borja performed a bronchoscopy, endobronchial brushings and biopsy of the distal main stem bronchus, and washings of the distal left mainstem bronchus. In addition she had a fiber optic bronchoscopy completed by Dr. Jules. Her oxygen was titrated down, she continued to work with physical and occupational therapy, she was tolerating oral diet, her pain was controlled, and she was ready to be discharged to home with home care on postoperative day #16. She received written and verbal instruction regarding her medications, activity restrictions, signs and symptoms requiring physician notification, and follow- up appointments with a prescription for x-ray to be taken prior to her follow- up appointment with Dr. Jules. COMPLICATIONS: The patient experienced postoperative gastroparesis, pleural effusion, and urinary retention, all treated accordingly. Patient Condition at Discharge: Stable Plan - Discharge Summary Discharge Rx Participant: No New Discharge Prescriptions: New Tamsulosin [Flomax] 0.4 mg PO DAILY #30 cap.er.24h Levofloxacin [Levaquin] 500 mg PO DAILY #7 tab predniSONE 10 mg PO DAILY #23 tab Continue Loperamide [Imodium] 2 mg PO Q8HR PRN PRN Reason: Diarrhea Insulin Aspart [NovoLOG Flexpen] See Protocol SQ PC-TID PRN PRN Reason: scale ALPRAZolam 0.25 mg PO BID PRN PRN Reason: Anxiety Insulin Detemir [Levemir] 30 unit SQ DAILY@1200 rOPINIRole HCL [Requip] 0.25 mg PO HS Solifenacin Succinate [Vesicare] 10 mg PO HS HYDROcodone/APAP 7.5-325MG [[place] 7.5-325] 1 tab PO Q4H PRN PRN Reason: Pain Pantoprazole [Protonix] 40 mg PO QAM PRN PRN Reason: reflux Aspirin 81 mg PO DAILY chew Metoprolol Tartrate [Lopressor] 25 mg PO BID #60 tab Nitroglycerin Sl Tabs [Nitrostat] 0.4 mg SUBLINGUAL Q5M PRN #21 tab PRN Reason: Chest Pain Clopidogrel Bisulfate [Plavix] 75 mg PO DAILY Ipratropium/Albuterol Sulfate [Combivent Respimat Inhaler] 1 puff INHALATION RT-QID Budesonide-Formot 160-4.5 Mcg [Symbicort 160-4.5 Mcg Inhaler] 2 puff INHALATION RT-BID Naproxen [Naprosyn] 500 mg PO BID PRN PRN Reason: Pain Lisinopril [Prinivil] 5 mg PO BID Atorvastatin [Lipitor] 80 mg PO DAILY Discharge Medication List Loperamide [Imodium] 2 mg PO Q8HR PRN 04/04/14 [History] Insulin Aspart [NovoLOG Flexpen] See Protocol SQ PC-TID PRN 08/02/15 [History] ALPRAZolam 0.25 mg PO BID PRN 11/03/15 [History] Insulin Detemir [Levemir] 30 unit SQ DAILY@1200 11/09/15 [History] Solifenacin Succinate [Vesicare] 10 mg PO HS 04/12/16 [History] rOPINIRole HCL [Requip] 0.25 mg PO HS 04/12/16 [History] HYDROcodone/APAP 7.5-325MG [[place] 7.5-325] 1 tab PO Q4H PRN 01/14/17 [History] Pantoprazole [Protonix] 40 mg PO QAM PRN 01/14/17 [History] Aspirin 81 mg PO DAILY chew 01/17/17 [Rx] Metoprolol Tartrate [Lopressor] 25 mg PO BID #60 tab 01/17/17 [Rx] Nitroglycerin Sl Tabs [Nitrostat] 0.4 mg SUBLINGUAL Q5M PRN #21 tab 01/17/17 [Rx ] Clopidogrel Bisulfate [Plavix] 75 mg PO DAILY 06/26/17 [History] Atorvastatin [Lipitor] 80 mg PO DAILY 08/31/17 [History] Budesonide-Formot 160-4.5 Mcg [Symbicort 160-4.5 Mcg Inhaler] 2 puff INHALATION RT-BID 08/31/17 [History] Ipratropium/Albuterol Sulfate [Combivent Respimat Inhaler] 1 puff INHALATION RT- QID 08/31/17 [History] Lisinopril [Prinivil] 5 mg PO BID 08/31/17 [History] Naproxen [Naprosyn] 500 mg PO BID PRN 08/31/17 [History] Levofloxacin [Levaquin] 500 mg PO DAILY #7 tab 09/22/17 [Rx] Tamsulosin [Flomax] 0.4 mg PO DAILY #30 cap.er.24h 09/22/17 [Rx] predniSONE 10 mg PO DAILY #23 tab 09/22/17 [Rx] Follow up Appointment(s)/Referral(s): Ervin Serra MD [STAFF PHYSICIAN] - 4 Weeks Mauri Jules MD [STAFF PHYSICIAN] - 10/04/17 12:45 pm Fannie Mccall MD [STAFF PHYSICIAN] - 10/08/17 4:30 pm Tera Lan DO [Doctor of Osteopathic Medicine] - 10/05/17 1:45 pm [facility], [NON-STAFF] - Nick Brock MD [Primary Care Provider] - 10/18/17 1:30 pm Ambulatory/Diagnostic Orders: XR chest 2V [RAD.AMB] Time Frame: 1 Week, Facility: [facility], Location : [facility] Patient Instructions/Handouts: Video Assisted Thoracoscopic Surgery (DC) Activity/Diet/Wound Care/Special Instructions: Diabetic mail order supplies. Pt needs to look for consent to be mailed to her to sign and mail back, case has been started. [facility] [phone] DISCHARGE INSTRUCTIONS: 1. No driving for 2 weeks, or until physician gives their ok. 2. The patient should sleep in their own bed, no medical bed needed. 3. Stairs are not an issue. If the bedroom is upstairs, it is advised that the patient go up at night and down in the morning for the first week. Go slowly, using handrail and take 1 step at a time. 4. No lifting, pushing, or pulling more than 10 pounds for 2 weeks. The physician will advise of any restriction changes. 5. The patient is expected to continue the prescribed walking program. 6. Continue pain control per as needed orders. 7. Continue with incentive spirometry and splinting until otherwise directed by the physician. 8. Must shower daily using liquid antibacterial soap. 9. Routine incision care. No powders, lotions, ointments on incisions. 10. Please call surgeon/ATHLETIC SCOUT for temp greater than 101 F or purulent drainage from incisions. Please have chest xray done at the hospital prior to appointment with Dr. Jules. HOME HEALTH SERVICES TO PROVIDE: MEDICATION RECONCILIATION WITH EDUCATION NEEDED ON FIRST HOME VISIT ENCOURAGE USE OF INCENTIVE SPIROMETER 10 X EVERY HOUR WHILE AWAKE ENCOURAGE AMBULATION 3-5x/day INCREASING TOLERATES, WHILE AVOID EXTREMES IN TEMPERATURE FREQUENCY: RN TO OPEN THE PATIENT WITHIN 24 HOURS OF DISCHARGE FROM THE HOSPITAL , RN TO VISIT 2-3 X A WEEK FOR 4 WEEKS ESTABLISHED BY PATIENT NEEDS. Discharge Disposition: HOME WITH HOME HEALTH SERVICES
[2017-09-22 12:01] LABS: Glucose,Whole Blood 251 mg/dL (75-99)
[2017-09-22] MEDS ORDERED: CALCIUM CARBONATE 500 MG CHEWABLE PO PRN (12:35)
[2017-09-22 12:51] VITALS: BP 132/80; PULSE 59; TEMP 97.6
--- NOTE | 2017-10-01 12:50 | CDI ---
Last Revision, February 2017 Documentation Clarification Form Date: 10/01/17 From: Gayle Milian RN Admit Date: 09/06/2017 9:51:00 AM Patient Name: Neeru Dow Visit Number: [id number] Discharge Date: 09/22/17 ATTENTION: The Clinical Documentation Specialists (CDI) and [facility] Coding Staff appreciate your assistance in clarifying documentation. Please respond to the clarification below the line at the bottom and electronically sign. The CDI & [facility] Coding staff will review the response and follow-up if needed. Please note: Queries are made part of the Legal Health Record. If you have any questions, please contact the author of this message via ITS. Dr. Bridger Borja, Pneumothorax is documented in the PN 09/19. Patients Admitting Diagnosis: Left Upper Lobe Mass Post-Operative Diagnosis: same Procedure performed: 09/06 Robotic assisted thoracoscopic left upper lobectomy with mediastinal lymph node dissection and fiberoptic bronchoscopy with clearance of mucous plug, chest tube inserted intraoperatively. In your progress note dated 09/22 it states, Chest x-ray results from today was reviewed by Dr. Milan, and shows stable left apical pneumothorax post chest tube removal measuring 5-10%. History/Risk Factors: smoker, cad, mi, stents, gerd, ibs, copd, dm 2, anxiety , hyperlipidemia, restless leg Clinical Indicators: CXR: 09/10 FINDINGS: Postsurgical changes are seen 5-10% left apical pneumothorax and chest tube noted. KUB: 09/11 Left sided chest tube with subcutaneous emphysema and basilar consolidation noted. CXR: 09/11: Stable left apical pneumothorax post chest tube removal . Treatment: Chest tube Medications: Duoneb, Pulmicort, Symbicort, Perforomist, Kefzol IVPB, Diflucan PO, In order to accurately reflect this patients severity of illness, please clarify if the post-operative diagnosis is: An expected post-procedural or post-surgical condition; Integral to the procedure; Inherent to the procedure; An unexpected post-procedural or post-surgical condition related to surgical care; Other, please specify Unable to determine Please explain the significance of the diagnosis related to the patients treatment plan. Please continue to document in your progress notes and discharge summary in order to capture severity of illness and risk of mortality. Include clinical findings that support your diagnosis. MTDD
--- NOTE | 2017-10-01 13:05 | CDI ---
Last Revision, February 2017 Documentation Clarification Form Date: 10/01/2017 1:02:51 PM From: Gayle Milian RN Admit Date: 09/06/2017 9:51:00 AM Patient Name: Neeru Dow Visit Number: [id number] Discharge Date: 09/22/17 ATTENTION: The Clinical Documentation Specialists (CDI) and [facility] Coding Staff appreciate your assistance in clarifying documentation. Please respond to the clarification below the line at the bottom and electronically sign. The CDI & [facility] Coding staff will review the response and follow-up if needed. Please note: Queries are made part of the Legal Health Record. If you have any questions, please contact the author of this message via ITS. Dr. Ervin Serra, Urinary retention is documented in the consult note dated 09/15. Patients Admitting Diagnosis: Left Upper Lobe Mass Post-Operative Diagnosis: same Procedure performed: robotic assisted thoracoscopic left upper lobectomy with mediastinal lymph node dissection and fiberoptic bronchoscopy with clearance of mucous plug. History/Risk Factors: smoker, CAD, [place], stents, GERD, IBS, COPD, DM 2, anxiety , hyperlipidemia, restless leg Clinical Indicators: Treatment: Straight cath. as needed Flomax In order to accurately reflect this patients severity of illness, please clarify if the post-operative diagnosis is: An expected post-procedural or post-surgical condition; Integral to the procedure; Inherent to the procedure; An unexpected post-procedural or post-surgical condition related to surgical care; Other, please specify Unable to determine Please explain the significance of the diagnosis related to the patient's treatment plan. Please continue to document in your progress notes, under the line below and/or in the discharge summary in order to capture severity of illness and risk of mortality. Include clinical findings that support your diagnosis. MTDD
--- NOTE | 2017-10-03 09:28 | P.PN ---
Progress Note - Text Progress Note Date: 10/03/17 5%apical pneumothorax after pneumonectomy or chest tube removal is not an unexpected finding.It is expected finding
== END 2017-09-22 13:35 | disposition home health service (06) | DRG 164 ==
LOC: 2ORMAIN 09:51 → 6SEL 15:39
PROVIDERS: ADMIT Thoracic Surgery (Cardiothoracic Vascular Surgery); ATTEND Thoracic Surgery (Cardiothoracic Vascular Surgery)
PROC: 07T74ZZ Resection of Thorax Lymphatic, Percutaneous Endoscopic Approach (ICD-10-PCS; 2017-09-06)
PROC: 0BC78ZZ Extirpation of Matter from Left Main Bronchus, Via Natural or Artificial Opening Endoscopic (ICD-10-PCS; 2017-09-06)
PROC: 8E0W8CZ Robotic Assisted Procedure of Trunk Region, Via Natural or Artificial Opening Endoscopic (ICD-10-PCS; 2017-09-06)
PROC: 0BTG4ZZ Resection of Left Upper Lung Lobe, Percutaneous Endoscopic Approach (ICD-10-PCS; principal; 2017-09-06 11:55)
PROC: 0DJ08ZZ Inspection of Upper Intestinal Tract, Via Natural or Artificial Opening Endoscopic (ICD-10-PCS; 2017-09-14)
PROC: 0BD78ZX Extraction of Left Main Bronchus, Via Natural or Artificial Opening Endoscopic, Diagnostic (ICD-10-PCS; 2017-09-18)
PROC: 0B978ZX Drainage of Left Main Bronchus, Via Natural or Artificial Opening Endoscopic, Diagnostic (ICD-10-PCS; 2017-09-18)
PROC: 0BJ08ZZ Inspection of Tracheobronchial Tree, Via Natural or Artificial Opening Endoscopic (ICD-10-PCS; 2017-09-20)
DX: C34.12 Malignant neoplasm of upper lobe, left bronchus or lung (principal); J44.1 Chronic obstructive pulmonary disease with (acute) exacerbation; J90 Pleural effusion, not elsewhere classified; J98.19 Other pulmonary collapse; T17.590A Other foreign object in bronchus causing asphyxiation, initial encounter; T17.890A Other foreign object in other parts of respiratory tract causing asphyxiation, initial encounter; B37.49 Other urogenital candidiasis; J93.9 Pneumothorax, unspecified; R33.8 Other retention of urine; E03.9 Hypothyroidism, unspecified; E11.43 Type 2 diabetes mellitus with diabetic autonomic (poly)neuropathy; D35.02 Benign neoplasm of left adrenal gland; E78.5 Hyperlipidemia, unspecified; F17.211 Nicotine dependence, cigarettes, in remission; F41.9 Anxiety disorder, unspecified; G25.81 Restless legs syndrome; I10 Essential (primary) hypertension; I25.10 Atherosclerotic heart disease of native coronary artery without angina pectoris; I25.2 Old myocardial infarction; I48.0 Paroxysmal atrial fibrillation; K21.9 Gastro-esophageal reflux disease without esophagitis; K31.84 Gastroparesis; K44.9 Diaphragmatic hernia without obstruction or gangrene; K56.41 Fecal impaction; K58.9 Irritable bowel syndrome, unspecified; M79.7 Fibromyalgia; J98.2 Interstitial emphysema; M51.26 Other intervertebral disc displacement, lumbar region; R06.03 Acute respiratory distress; R30.0 Dysuria; K57.90 Diverticulosis of intestine, part unspecified, without perforation or abscess without bleeding; Z79.02 Long term (current) use of antithrombotics/antiplatelets; Z79.4 Long term (current) use of insulin; Z79.82 Long term (current) use of aspirin; Z79.51 Long term (current) use of inhaled steroids; Z79.899 Other long term (current) drug therapy; Z95.5 Presence of coronary angioplasty implant and graft; Z87.440 Personal history of urinary (tract) infections; Z87.11 Personal history of peptic ulcer disease; Z90.49 Acquired absence of other specified parts of digestive tract; Z90.710 Acquired absence of both cervix and uterus; Z83.3 Family history of diabetes mellitus; Z80.9 Family history of malignant neoplasm, unspecified
CPT/HCPCS: 31623; 31624; 31625; 36415; 43235; 71045; 71046; 71250; 74018; 74177; 76604; 80048; 80051; 80053; 81001; 82565; 83036; 83605; 84443; 84520; 85025; 85027; 86850; 86900; 86901; 87070; 87086; 87102; 87116; 87205; 87206; 88104; 88108; 88305; 88307; 88309; 88341; 88342; 89050; 93306; 94640; 94760

== ENCOUNTER 2017-09-24 14:20 | Inpatient (IN) | payer MEDICARE, OTHER ==
[2017-09-24] MEDS ORDERED: SODIUM CHLORIDE 0.9% 1,000 ML IV STA ×2 (15:06)
--- NOTE | 2017-09-24 15:11 | ED ---
SOB HPI - General Chief Complaint: Shortness of Breath Stated Complaint: Diff Breathing Time Seen by Provider: 09/24/17 14:20 Source: patient, EMS, RN notes reviewed Mode of arrival: EMS Limitations: no limitations - History of Present Illness Initial Comments: This is a 67-year-old female with a history of left upper lobectomy of her lung for stage I lung cancer who just came home from the hospital last week who is back today with complaints of difficulty breathing weakness and inability to take food or fluids and generally failure to thrive. No overt fevers chills or sweats reported patient was brought in by EMS. MD Complaint: shortness of breath - Related Data Home Medications Medication Instructions Recorded Confirmed Loperamide [Imodium] 2 mg PO Q8HR PRN 04/04/14 09/24/17 Insulin Aspart [NovoLOG Flexpen] See Protocol SQ PC-TID PRN 08/02/15 09/24/17 ALPRAZolam 0.25 mg PO BID PRN 11/03/15 09/24/17 Insulin Detemir [Levemir] 30 unit SQ DAILY@1200 11/09/15 09/24/17 Solifenacin Succinate [Vesicare] 10 mg PO HS 04/12/16 09/24/17 rOPINIRole HCL [Requip] 0.25 mg PO HS 04/12/16 09/24/17 HYDROcodone/APAP 7.5-325MG [[place] 1 tab PO Q4H PRN 01/14/17 09/24/17 7.5-325] Pantoprazole [Protonix] 40 mg PO QAM PRN 01/14/17 09/24/17 Clopidogrel Bisulfate [Plavix] 75 mg PO DAILY 06/26/17 09/24/17 Atorvastatin [Lipitor] 80 mg PO DAILY 08/31/17 09/24/17 Budesonide-Formot 160-4.5 Mcg 2 puff INHALATION RT-BID 08/31/17 09/24/17 [Symbicort 160-4.5 Mcg Inhaler] Ipratropium/Albuterol Sulfate 1 puff INHALATION RT-QID 08/31/17 09/24/17 [Combivent Respimat Inhaler] Lisinopril [Prinivil] 5 mg PO BID 08/31/17 09/24/17 Naproxen [Naprosyn] 500 mg PO BID PRN 08/31/17 09/24/17 predniSONE See Taper PO DAILY 09/24/17 09/24/17 Previous Rx's Medication Instructions Recorded Aspirin 81 mg PO DAILY chew 01/17/17 Metoprolol Tartrate [Lopressor] 25 mg PO BID #60 tab 01/17/17 Nitroglycerin Sl Tabs [Nitrostat] 0.4 mg SUBLINGUAL Q5M PRN #21 tab 01/17/17 Levofloxacin [Levaquin] 500 mg PO DAILY #7 tab 09/22/17 Tamsulosin [Flomax] 0.4 mg PO DAILY #30 cap.er.24h 09/22/17 Allergies Allergy/AdvReac Type Severity Reaction Status Date / Time No Known Allergies Allergy Verified 09/24/17 14:37 Review of Systems ROS Statement: Those systems with pertinent positive or pertinent negative responses have been documented in the HPI. ROS Other: All systems not noted in ROS Statement are negative. Past Medical History Past Medical History: Diabetes Mellitus, Fibromyalgia, GERD/Reflux, Myocardial Infarction ([place]) Additional Past Medical History / Comment(s): Idiopathic thrombocytopenia purpura, IBS, diverticulitis, hiatal hernia, 2 herniated discs-L3/L4, Restless Leg Syndrome, gastritis, superficial gastric ulcers. nodule on lt lung-Cancer Stg 1 Last Myocardial Infarction Date:: 01/2017 History of Any Multi-Drug Resistant Organisms: None Reported Past Surgical History: Adenoidectomy, Bladder Surgery, Bowel Resection, Cholecystectomy, Heart Catheterization With Stent, Hernia Repair, Hysterectomy, Tonsillectomy Additional Past Surgical History / Comment(s): BLADDER SUSPENSION x 2, breast biopsy x3, bowel resection due to rupture. left upper lobe of lung removed per CA Past Anesthesia/Blood Transfusion Reactions: No Reported Reaction Additional Past Anesthesia/Blood Transfusion Reaction / Comment(s): Pt received blood in 2005 due to ITP without reaction. Date of Last Stent Placement:: 01/2017 Past Psychological History: Anxiety Smoking Status: Former smoker Past Alcohol Use History: None Reported Past Drug Use History: None Reported - Past Family History Mother Family Medical History: Cancer, Diabetes Mellitus Additional Family Medical History / Comment(s): Father had a defibrillator. He of heart dx in his 80's Father Family Medical History: Diabetes Mellitus Additional Family Medical History / Comment(s): HEART DISEASE General Exam - General Exam Comments Initial Comments: This a well-developed asthenic appearing female who is awake alert Limitations: no limitations General appearance: alert, anxious Head exam: Present: atraumatic, normocephalic, normal inspection Eye exam: Present: normal appearance, PERRL, EOMI. Absent: scleral icterus, conjunctival injection, periorbital swelling ENT exam: Present: mucous membranes dry Neck exam: Present: normal inspection. Absent: tenderness, meningismus, lymphadenopathy Respiratory exam: Present: decreased breath sounds (Decreased breath sounds a left-sided). Absent: respiratory distress, wheezes, rales, rhonchi, stridor Cardiovascular Exam: Present: regular rate, normal rhythm, normal heart sounds. Absent: systolic murmur, diastolic murmur, rubs, gallop, clicks GI/Abdominal exam: Present: soft, normal bowel sounds. Absent: distended, tenderness, guarding, rebound, rigid Extremities exam: Present: normal inspection, full ROM, normal capillary refill. Absent: tenderness, pedal edema, joint swelling, calf tenderness Back exam: Present: normal inspection Neurological exam: Present: alert, oriented X3, CN II-XII intact Psychiatric exam: Present: normal affect, normal mood Skin exam: Present: warm, dry, intact, normal color. Absent: rash Course Vital Signs 09/24/17 09/24/17 14:24 15:35 Temperature 97.9 F Pulse Rate 108 H 103 H Respiratory 20 18 Rate Blood Pressure 113/55 149/64 O2 Sat by Pulse 95 97 Oximetry - Reevaluation(s) Reevaluation #1: 09/24/17 16:17 I did discuss [employer] the patient family patient will be admitted Medical Decision Making - Medical Decision Making I did discuss the findings with the patient and family members. Patient is feeling outpatient treatment at this time she dehydrated failure to thrive she' ll be admitted with IV hydration consultation by Dr. Jules and Dr. Baez. - Lab Data Result diagrams: 09/24/17 15:11 09/24/17 15:11 Lab Results 09/24/17 09/24/17 09/24/17 Range/Units 15:11 15:11 15:11 WBC 17.2 H (3.8-10.6) k/uL RBC 4.76 (3.80-5.40) m/uL Hgb 13.4 (11.4-16.0) gm/dL Hct 40.9 (34.0-46.0) % MCV 86.0 (80.0-100.0) fL MCH 28.3 (25.0-35.0) pg MCHC 32.9 (31.0-37.0) g/dL RDW 15.0 (11.5-15.5) % Plt Count 671 H (150-450) k/uL Neutrophils % 85 % Lymphocytes % 9 % Monocytes % 4 % Eosinophils % 0 % Basophils % 0 % Neutrophils # 14.7 H (1.3-7.7) k/uL Lymphocytes # 1.5 (1.0-4.8) k/uL Monocytes # 0.7 (0-1.0) k/uL Eosinophils # 0.0 (0-0.7) k/uL Basophils # 0.1 (0-0.2) k/uL Sodium 135 L (137-145) mmol/L Potassium 5.0 (3.5-5.1) mmol/L Chloride 99 (98-107) mmol/L Carbon Dioxide 21 L (22-30) mmol/L Anion Gap 15 mmol/L BUN 22 H (7-17) mg/dL Creatinine 0.50 L (0.52-1.04) mg/dL Est GFR (CKD-EPI)AfAm >90 (>60 ml/min/1.73 sqM) Est GFR (CKD-EPI)NonAf >90 (>60 ml/min/1.73 sqM) Glucose 388 H (74-99) mg/dL Plasma Lactic Acid Jeremy (0.7-2.0) mmol/L Calcium 9.1 (8.4-10.2) mg/dL Magnesium 2.0 (1.6-2.3) mg/dL Total Bilirubin 0.4 (0.2-1.3) mg/dL AST 16 (14-36) U/L ALT 36 (9-52) U/L Alkaline Phosphatase 249 H (38-126) U/L Total Creatine Kinase 33 (30-135) U/L CK-MB (CK-2) 3.9 H* (0.0-2.4) ng/mL CK-MB (CK-2) Rel Index 11.8 Troponin I 0.014 (0.000-0.034) ng/mL Total Protein 5.6 L (6.3-8.2) g/dL Albumin 3.0 L (3.5-5.0) g/dL Amylase 39 (30-110) U/L Lipase 362 H (23-300) U/L 09/24/17 Range/Units 15:11 WBC (3.8-10.6) k/uL RBC (3.80-5.40) m/uL Hgb (11.4-16.0) gm/dL Hct (34.0-46.0) % MCV (80.0-100.0) fL MCH (25.0-35.0) pg MCHC (31.0-37.0) g/dL RDW (11.5-15.5) % Plt Count (150-450) k/uL Neutrophils % % Lymphocytes % % Monocytes % % Eosinophils % % Basophils % % Neutrophils # (1.3-7.7) k/uL Lymphocytes # (1.0-4.8) k/uL Monocytes # (0-1.0) k/uL Eosinophils # (0-0.7) k/uL Basophils # (0-0.2) k/uL Sodium (137-145) mmol/L Potassium (3.5-5.1) mmol/L Chloride (98-107) mmol/L Carbon Dioxide (22-30) mmol/L Anion Gap mmol/L BUN (7-17) mg/dL Creatinine (0.52-1.04) mg/dL Est GFR (CKD-EPI)AfAm (>60 ml/min/1.73 sqM) Est GFR (CKD-EPI)NonAf (>60 ml/min/1.73 sqM) Glucose (74-99) mg/dL Plasma Lactic Acid Jeremy 1.2 (0.7-2.0) mmol/L Calcium (8.4-10.2) mg/dL Magnesium (1.6-2.3) mg/dL Total Bilirubin (0.2-1.3) mg/dL AST (14-36) U/L ALT (9-52) U/L Alkaline Phosphatase (38-126) U/L Total Creatine Kinase (30-135) U/L CK-MB (CK-2) (0.0-2.4) ng/mL CK-MB (CK-2) Rel Index Troponin I (0.000-0.034) ng/mL Total Protein (6.3-8.2) g/dL Albumin (3.5-5.0) g/dL Amylase (30-110) U/L Lipase (23-300) U/L - EKG Data -: EKG Interpreted by Me EKG shows normal: sinus rhythm (Sinus tachycardia rate 104. Interval 134 QRS duration 80 QT/QTC 342/449 radiates alert with no acute ST-T wave changes.) - Radiology Data Radiology results: report reviewed (I did review the imaging and report is evidence of consolidation of the left with a small pneumothorax a left apical region consistent with earlier x-rays.), image reviewed Disposition Clinical Impression: Failure to thrive, Dehydration, History of lung cancer Disposition: ADMITTED IP TO THIS HOSP Condition: Stable Referrals: Nick Brock MD [Primary Care Provider] - 1-2 days
[2017-09-24 15:27] LABS: Basophils # (A) 0.1 k/uL (0-0.2); Basophils % (A) 0 %; Eosinophils % (A) 0 %; HCT 40.9 % (34.0-46.0); HGB 13.4 gm/dL (11.4-16.0); Lymphocytes # (A) 1.5 k/uL (1.0-4.8); Lymphocytes % (A) 9 %; MCH 28.3 pg (25.0-35.0); MCHC 32.9 g/dL (31.0-37.0); Mean Platelet Volume 7.4; Monocytes # (A) 0.7 k/uL (0-1.0); Monocytes % (A) 4 %; Neutrophils # (A) 14.7 k/uL (1.3-7.7); Neutrophils % (A) 85 %; Platelet Count 671 k/uL (150-450); RBC 4.76 m/uL (3.80-5.40); WBC 17.2 k/uL (3.8-10.6)
--- NOTE | 2017-09-24 15:29 | XR ---
EXAMINATION TYPE: XR chest 2V DATE OF EXAM: 09/24/2017 COMPARISON: 09/22/2017 TECHNIQUE: PA and lateral views submitted. HISTORY: Cough FINDINGS: Elevated left hemidiaphragm with left-sided consolidation and pleural effusion is stable. Tiny apical pneumothorax measuring approximately 5% is stable. Right lung is clear. Heart size stable. Atherosclerotic change of the aorta. IMPRESSION: 1. Left-sided consolidation, hemidiaphragm elevation and pleural effusion with apical pneumothorax me asuring approximately 5% is stable
[2017-09-24 15:34] LABS: ALT 36 U/L (9-52); AST 16 U/L (14-36); Alkaline Phosphatase 249 U/L (38-126); Amylase 39 U/L (30-110); Anion Gap 15 mmol/L; Blood Urea Nitrogen 22 mg/dL (7-17); Calcium 9.1 mg/dL (8.4-10.2); Carbon Dioxide 21 mmol/L (22-30); Chloride 99 mmol/L (98-107); Glucose 388 mg/dL (74-99); Lipase 362 U/L (23-300); Sodium 135 mmol/L (137-145); Total Bilirubin 0.4 mg/dL (0.2-1.3); Total Protein 5.6 g/dL (6.3-8.2)
[2017-09-24 15:58] LABS: Troponin I 0.014 ng/mL (0.000-0.034)
[2017-09-24 16:00] LABS: Creatine Kinase MB 3.9 ng/mL (0.0-2.4)
[2017-09-24] MEDS ORDERED: NALOXONE 0.4 MG/ML 1 ML VIAL IV PRN (16:19)
[2017-09-24] MEDS ORDERED: NAPROXEN 250 MG TAB PO PRN (16:23)
[2017-09-24] MEDS ORDERED: LOPERAMIDE 2 MG CAP PO PRN (16:23)
[2017-09-24] MEDS ORDERED: NITROGLYCERIN SL TABS 0.4 MG TAB SUBLINGUAL PRN (16:23)
[2017-09-24] MEDS ORDERED: PANTOPRAZOLE 40 MG TABLET PO PRN (16:23)
[2017-09-24 16:54] LABS: Appearance,Urine Clear (Clear); Bilirubin,Urine Negative (Negative); Blood,Urine Negative (Negative); Color,Urine Light Yellow; Glucose,Urine (UA) 4+ (Negative); Ketones,Urine 1+ (Negative); Leukocyte Esterase,Urine Negative (Negative); Nitrite,Urine Negative (Negative); PH, Urine 6.5 (5.0-8.0); Protein,Urine Negative (Negative); Specific Gravity,Urine 1.008 (1.001-1.035); Urobilinogen,Urine <2.0 mg/dL (<2.0)
[2017-09-24 18:08] LABS: Glucose,Whole Blood 313 mg/dL (75-99)
[2017-09-24] MEDS: HYDROcodone/APAP 7.5-325MG 1 EACH TAB PO PRN (18:32)
[2017-09-24 20:31] LABS: Glucose,Whole Blood 301 mg/dL (75-99)
[2017-09-24] MEDS: INSULIN ASPART 100 UNIT/ML 1 ML 10 ML VIAL SQ SCH (21:17)
[2017-09-24] MEDS: LISINOPRIL 5 MG TAB PO SCH (21:19)
[2017-09-24] MEDS: METOPROLOL TARTRATE 25 MG TAB PO SCH (21:51)
[2017-09-24] MEDS: TROSPIUM CHLORIDE 20 MG TABLET PO SCH (21:52)
[2017-09-24] MEDS: ALPRAZolam 0.25 MG TAB PO PRN (21:56)
[2017-09-24] MEDS: SYMBICORT 160-4.5 MCG INHALER INHALATION SCH (22:05)
--- NOTE | 2017-09-24 23:47 | HP ---
HISTORY AND PHYSICAL DATE OF ADMISSION: 09/24/2017 PRESENTING COMPLAINT: Nausea, tired, unable to keep anything down. HISTORY OF PRESENTING COMPLAINT: This is a pleasant 67-year-old patient who was just discharged from the hospital on 09/22/[address] Jules's team from Cardiothoracic Surgery. Patient was operated upon on 09/06/2017 and had a robotic-assisted thoracoscopy, left upper lobectomy with mediastinal lymph node dissection and clearance of her mucous plug. Patient's pathology was negative for any malignancy in the lymph nodes. The left upper lobectomy was positive for squamous cell carcinoma and also a bleb was noted. The patient presented after she was at her daughter's house. The patient was feeling very weak, tired, rundown, not able to keep anything down. A lot of nausea was present; hence she was getting really weak and tired, rundown. She presented to the hospital. No phlegm is coming up. No fever. It may be noted that patient's white count has been gradually climbing since she was here. Patient on her last admission was also treated with antibiotics, including IV Zosyn. The patient is also felt to have gastroparesis. The patient also found rectal wall thickening. The patient is due for an outpatient colonoscopy. The patient also was having urinary retention, for which she was having straight caths. Patient also has diabetes mellitus, type 2. REVIEW OF SYSTEMS: CONSTITUTIONAL: Tired. HEENT: None. RESPIRATORY: Shortness of breath. CARDIOVASCULAR: None. GASTROINTESTINAL: None. GENITOURINARY: None. MUSCULOSKELETAL: Some pain in the joints. DERMATOLOGICAL: Incision healing well. LYMPHATICS: None. PSYCHIATRY: A bit of anxiety. NEUROLOGICAL: None. PAST MEDICAL HISTORY: 1. Diabetes mellitus, type 2. 2. Fibromyalgia. 3. GERD. 4. ITP. 5. Irritable bowel syndrome. 6. Hiatal hernia. 7. Herniated disc L3-L4. 8. Restless legs syndrome. 9. Gastritis. 10.Squamous cell cancer, left upper lobe. PAST SURGICAL HISTORY: 1. Adenoidectomy. 2. Bladder surgery. 3. Bowel resection. 4. Cardiac catheterization with stent. 5. Hernia repair. 6. Hysterectomy. 7. Tonsillectomy. 8. Bladder suspension x2. 9. Bowel resection due to rupture. 10.Left lung upper lobe removed. SOCIAL HISTORY: Currently living with her daughter. The patient smoked for close to 50 years about a pack a day; stopped in June of 2017. FAMILY HISTORY: Diabetes and breast cancer. HOME MEDICATIONS: 1. Requip 0.25 p.o. at bedtime. 2. Prednisone taper. 3. Flomax 0.4 mg a day. 4. VESIcare 10 mg at bedtime. 5. Protonix 40 mg daily p.r.n. 6. Nitrostat 0.4 sublingually q.5 p.r.n. 7. Naproxen 500 mg p.o. b.i.d. p.r.n. 8. Lopressor 25 p.o. b.i.d. 9. Prinivil 5 mg b.i.d. 10.Levaquin 500 mg a day. 11.Combivent 1 puff q.i.d. 12.Levemir 30 units subcutaneously daily. 13.NovoLog FlexPen. 14.Dewey 7.5 one tablet q.4 p.r.n. 15.Plavix 75 mg a day. 16.Symbicort 160/4.5 two puffs b.i.d. 17.Lipitor 80 mg p.o. daily. 18.Aspirin 81 mg p.o. daily. 19.Xanax 0.25 p.o. b.i.d. p.r.n. ALLERGIES: NONE. PHYSICAL EXAMINATION: Temperature 97.9, pulse 108, respiration 20, blood pressure 113/55, pulse ox 95% on room air. GENERAL APPEARANCE: Thin build. Lying in bed, somewhat restless and anxious. EYES: Pupils equal. Conjunctivae pale. HEENT: External appearance of nose and ears normal. Oral cavity dry. NECK: JVD unable to assess. Mass not palpable. RESPIRATORY: Effort increased. LUNGS: Diminished breath sounds. CARDIOVASCULAR: First and second sounds normal. No edema. ABDOMEN: Soft, nontender. Liver and spleen not palpable. LYMPHATIC: No lymph node palpable in neck or axillae. PSYCHIATRY: Alert and oriented x3. Mood and affect anxious-appearing. NEUROLOGICAL: Pupils equal, grossly intact. Power and sensation grossly intact. MUSCULOSKELETAL: Evidence of osteoarthritis, especially in the hands and knees. DERMATOLOGICAL: Incision in the lateral chest is healing well. INVESTIGATIONS: White count 17.2, potassium 5, BUN 22, creatinine 0.50. Accu-Cheks 388, 313, 301. Albumin 3.0. The patient's white count was 15.2 two days ago. ASSESSMENT: 1. Persistent severe nausea; could be a combination of the fact that the patient is on naproxen, Dewey, and this well could be a side effect. 2. Chronic obstructive pulmonary disease in an ex smoker. 3. Recent left upper lobe lobectomy with pathology coming back for squamous cell with lymph nodes being negative. 4. Chronic fibromyalgia. 5. Gastroesophageal reflux disease. 6. Coronary artery disease with prior history of stent. 7. Irritable bowel syndrome. 8. Herniated disc, chronic, at L3-L4. 9. Restless legs syndrome. PLAN: Home medications will be resumed. Consultation will be done to Cardiothoracic Surgery, Pulmonary. Patient will be kept on a liquid diet right now. Accu-Cheks will be followed. The patient will be switched from inhaler to nebulized bronchodilator. I did review the chest x-ray; it is not much different from the one when she had left. Care was discussed with the patient. Questions were answered. MMODL / IJN: [id number] /
[2017-09-25] MEDS: LACTATED RINGERS 1,000 ML IV SCH ×4 (00:13→20:05)
[2017-09-25 01:01] LABS: Hemoglobin A1C 11.9 % (4.0-6.0)
[2017-09-25] MEDS: HYDROcodone/APAP 7.5-325MG 1 EACH TAB PO PRN (04:42)
[2017-09-25] MEDS: IPRATROPIUM-ALBUTEROL 3 ML NEB INHALATION SCH ×4 (07:02→20:04)
[2017-09-25] MEDS: SYMBICORT 160-4.5 MCG INHALER INHALATION SCH (07:02)
[2017-09-25 07:22] LABS: Glucose,Whole Blood 211 mg/dL (75-99)
[2017-09-25] MEDS: ALPRAZolam 0.25 MG TAB PO PRN ×2 (07:39→22:30)
[2017-09-25] MEDS: METOPROLOL TARTRATE 25 MG TAB PO SCH ×2 (07:40→22:12)
[2017-09-25] MEDS: LEVOFLOXACIN 500 MG TAB PO SCH (07:40)
[2017-09-25] MEDS: TAMSULOSIN 0.4 MG CAP.ER.24H PO SCH (07:40)
[2017-09-25] MEDS: ATORVASTATIN 80 MG TAB PO SCH (07:40)
[2017-09-25] MEDS: ASPIRIN 81 MG PO SCH (07:40)
[2017-09-25] MEDS: LISINOPRIL 5 MG TAB PO SCH ×2 (07:40→22:12)
[2017-09-25] MEDS: TROSPIUM CHLORIDE 20 MG TABLET PO SCH ×2 (07:40→22:13)
[2017-09-25] MEDS: INSULIN ASPART 100 UNIT/ML 1 ML 10 ML VIAL SQ SCH ×4 (07:41→22:22)
[2017-09-25] MEDS: CLOPIDOGREL 75 MG TAB PO SCH (07:41)
[2017-09-25] MEDS: ENOXAPARIN 40 MG/0.4 ML SYRINGE SQ SCH (07:41)
--- NOTE | 2017-09-25 08:58 | P.GSCN ---
History of Present Illness Consult date: 09/25/17 Reason for Consult: Patient known to us, recent robotic-assisted thoracoscopic left upper lobectomy with mediastinal lymph node dissection with pathology demonstrating squamous cell carcinoma on 09/06/2017. Requesting physician: Tera Geiger History of present illness: This is a 66-year-old female patient who follows with Dr. Brock on an outpatient basis. She is well-known to our service as we discharged her last week after robotic-assisted thoracoscopic left upper lobectomy with mediastinal lymph node dissection with pathology demonstrating squamous cell carcinoma on . Post surgery she did have complications of gastroparesis confirmed with EGD performed by Dr. Kemp, treated with Reglan; postoperative urinary retention treated with Flomax per urology; and complete opacification on the left side on chest x-ray, with bronchoscopy performed by Dr. Borja and second fiber optic bronchoscopy performed by Dr. Jules a couple days later. She was maintained on antibiotics and steroids which did manage to open up her left lower lobe. She was discharged to home last Sunday on a seven-day course of Levaquin and prednisone taper. Our plan was for her to follow-up in the office with Dr. Jules and Dr. Borja, with chest x-ray to be completed prior to her appointments. Apparently over the weekend she did not feel like eating, was nauseous, and short of breath, and she felt the need to returned to the emergency room yesterday afternoon. Her chest x-ray does not appear significantly different from the x-ray of the day she was discharged. She was felt to be dehydrated and was admitted for IV fluids and workup. Her white blood cell count has trended upwards although she has remained afebrile. She does have a previous medical history of coronary artery disease with stent placement, gastric ulcer, diabetes mellitus, hypothyroid, previous tobacco dependence, IBS, and ITP. Dr. Jules was consulted for surgical recommendations. Review of Systems Review of systems was completed and was negative except as noted. - Constitutional Reports fatigue, Reports weakness - Respiratory Reports dyspnea - Gastrointestinal Reports loss of appetite, Reports nausea Past Medical History Past Medical History: Coronary Artery Disease (CAD), Diabetes Mellitus, Fibromyalgia, GERD/Reflux, Myocardial Infarction (HI) Additional Past Medical History / Comment(s): Idiopathic thrombocytopenia purpura, IBS, diverticulitis, hiatal hernia, 2 herniated discs-L3/L4, Restless Leg Syndrome, gastritis, superficial gastric ulcers. nodule on lt lung-Cancer Stg 1 Last Myocardial Infarction Date:: 01/2017 History of Any Multi-Drug Resistant Organisms: None Reported Past Surgical History: Adenoidectomy, Bladder Surgery, Bowel Resection, Cholecystectomy, Heart Catheterization With Stent, Hernia Repair, Hysterectomy, Tonsillectomy Additional Past Surgical History / Comment(s): BLADDER SUSPENSION x 2, breast biopsy x3, bowel resection due to rupture. left upper lobe of lung removed per [place] Past Anesthesia/Blood Transfusion Reactions: No Reported Reaction Additional Past Anesthesia/Blood Transfusion Reaction / Comm: Pt received blood in 2005 due to ITP without reaction. Date of Last Stent Placement:: 01/2017 Smoking Status: Former smoker Past Alcohol Use History: None Reported Past Drug Use History: None Reported - Past Family History Mother Family Medical History: Cancer, Diabetes Mellitus Additional Family Medical History / Comment(s): Father had a defibrillator. He of heart dx in his 80's Father Family Medical History: Diabetes Mellitus Additional Family Medical History / Comment(s): HEART DISEASE Medications and Allergies Home Medications Medication Instructions Recorded Confirmed Type Loperamide [Imodium] 2 mg PO Q8HR PRN 04/04/14 09/24/17 History Insulin Aspart [NovoLOG Flexpen] See Protocol SQ PC-TID PRN 08/02/15 09/24/17 History ALPRAZolam 0.25 mg PO BID PRN 11/03/15 09/24/17 History Insulin Detemir [Levemir] 30 unit SQ DAILY@1200 11/09/15 09/24/17 History Solifenacin Succinate [Vesicare] 10 mg PO HS 04/12/16 09/24/17 History rOPINIRole HCL [Requip] 0.25 mg PO HS 04/12/16 09/24/17 History HYDROcodone/APAP 7.5-325MG [[place] 1 tab PO Q4H PRN 01/14/17 09/24/17 History 7.5-325] Pantoprazole [Protonix] 40 mg PO QAM PRN 01/14/17 09/24/17 History Aspirin 81 mg PO DAILY chew 01/17/17 09/24/17 Rx Metoprolol Tartrate [Lopressor] 25 mg PO BID #60 tab 01/17/17 09/24/17 Rx Nitroglycerin Sl Tabs [Nitrostat] 0.4 mg SUBLINGUAL Q5M PRN #21 tab 01/17/1705/13 Rx Clopidogrel Bisulfate [Plavix] 75 mg PO DAILY 06/26/17 09/24/17 History Atorvastatin [Lipitor] 80 mg PO DAILY 08/31/17 09/24/17 History Budesonide-Formot 160-4.5 Mcg 2 puff INHALATION RT-BID 08/31/17 09/24/17 History [Symbicort 160-4.5 Mcg Inhaler] Ipratropium/Albuterol Sulfate 1 puff INHALATION RT-QID 08/31/17 09/24/17 History [Combivent Respimat Inhaler] Lisinopril [Prinivil] 5 mg PO BID 08/31/17 09/24/17 History Naproxen [Naprosyn] 500 mg PO BID PRN 08/31/17 09/24/17 History Levofloxacin [Levaquin] 500 mg PO DAILY #7 tab 09/22/17 09/24/17 Rx Tamsulosin [Flomax] 0.4 mg PO DAILY #30 cap.er.24h 09/22/17 09/24/17 Rx predniSONE See Taper PO DAILY 09/24/17 09/24/17 History Allergies Allergy/AdvReac Type Severity Reaction Status Date / Time No Known Allergies Allergy Verified 09/24/17 14:37 Surgical - Exam Vital Signs Temp Pulse Resp BP Pulse Ox 97.9 F 108 H 20 113/55 95 09/24/17 14:24 09/24/17 14:24 09/24/17 14:24 09/24/17 14:24 09/24/17 14:24 - General well developed, no distress, no pain - Eyes PERRL, normal ocular movement - ENT no hearing loss - Neck no masses, no bruits, trachea midline - Respiratory Lungs sounds diminished bilaterally, left greater than right. Respirations even , nonlabored. Was on 2 L nasal cannula this morning with oxygen saturation 96%. - Cardiovascular S1, S2 present. Regular rate and rhythm. Palpable peripheral pulses bilaterally. No edema present. No calf pain or tenderness noted. - Abdomen Abdomen: soft, non tender, bowel sounds - Genitourinary Deferred - Rectum Deferred - Integumentary Skin is warm and dry with evidence of good perfusion. Left lateral chest incisions well approximated. no rash, no growths - Neurologic normal coordination, normal sensation - Psychiatric oriented to time, oriented to person, oriented to place, speech is normal, memory intact Results - Labs 09/24/17 15:11 09/24/17 15:11 Abnormal Lab Results - Last 24 Hours (Table) 09/24/17 09/24/17 09/24/17 Range/Units 15:11 15:11 15:11 WBC 17.2 H (3.8-10.6) k/uL Plt Count 671 H (150-450) k/uL Neutrophils # 14.7 H (1.3-7.7) k/uL Sodium 135 L (137-145) mmol/L Carbon Dioxide 21 L (22-30) mmol/L BUN 22 H (7-17) mg/dL Creatinine 0.50 L (0.52-1.04) mg/dL Glucose 388 H (74-99) mg/dL POC Glucose (mg/dL) (75-99) mg/dL Hemoglobin A1c (4.0-6.0) % Alkaline Phosphatase 249 H (38-126) U/L CK-MB (CK-2) 3.9 H* (0.0-2.4) ng/mL Total Protein 5.6 L (6.3-8.2) g/dL Albumin 3.0 L (3.5-5.0) g/dL Lipase 362 H (23-300) U/L Urine Glucose (UA) (Negative) Urine Ketones (Negative) 09/24/17 09/24/17 09/24/17 Range/Units 15:11 16:30 18:05 WBC (3.8-10.6) k/uL Plt Count (150-450) k/uL Neutrophils # (1.3-7.7) k/uL Sodium (137-145) mmol/L Carbon Dioxide (22-30) mmol/L BUN (7-17) mg/dL Creatinine (0.52-1.04) mg/dL Glucose (74-99) mg/dL POC Glucose (mg/dL) 313 H (75-99) mg/dL Hemoglobin A1c 11.9 H (4.0-6.0) % Alkaline Phosphatase (38-126) U/L CK-MB (CK-2) (0.0-2.4) ng/mL Total Protein (6.3-8.2) g/dL Albumin (3.5-5.0) g/dL Lipase (23-300) U/L Urine Glucose (UA) 4+ H (Negative) Urine Ketones 1+ H (Negative) 09/24/17 09/25/17 Range/Units 20:30 07:13 WBC (3.8-10.6) k/uL Plt Count (150-450) k/uL Neutrophils # (1.3-7.7) k/uL Sodium (137-145) mmol/L Carbon Dioxide (22-30) mmol/L BUN (7-17) mg/dL Creatinine (0.52-1.04) mg/dL Glucose (74-99) mg/dL POC Glucose (mg/dL) 301 H 211 H (75-99) mg/dL Hemoglobin A1c (4.0-6.0) % Alkaline Phosphatase (38-126) U/L CK-MB (CK-2) (0.0-2.4) ng/mL Total Protein (6.3-8.2) g/dL Albumin (3.5-5.0) g/dL Lipase (23-300) U/L Urine Glucose (UA) (Negative) Urine Ketones (Negative) Diabetes panel 09/24/17 09/24/17 Range/Units 15:11 15:11 Sodium 135 L (137-145) mmol/L Potassium 5.0 (3.5-5.1) mmol/L Chloride 99 (98-107) mmol/L Carbon Dioxide 21 L (22-30) mmol/L BUN 22 H (7-17) mg/dL Creatinine 0.50 L (0.52-1.04) mg/dL Glucose 388 H (74-99) mg/dL Hemoglobin A1c 11.9 H (4.0-6.0) % Calcium 9.1 (8.4-10.2) mg/dL AST 16 (14-36) U/L ALT 36 (9-52) U/L Alkaline Phosphatase 249 H (38-126) U/L Total Protein 5.6 L (6.3-8.2) g/dL Albumin 3.0 L (3.5-5.0) g/dL Calcium panel 09/24/17 Range/Units 15:11 Calcium 9.1 (8.4-10.2) mg/dL Albumin 3.0 L (3.5-5.0) g/dL Pituitary panel 09/24/17 Range/Units 15:11 Sodium 135 L (137-145) mmol/L Potassium 5.0 (3.5-5.1) mmol/L Chloride 99 (98-107) mmol/L Carbon Dioxide 21 L (22-30) mmol/L BUN 22 H (7-17) mg/dL Creatinine 0.50 L (0.52-1.04) mg/dL Glucose 388 H (74-99) mg/dL Calcium 9.1 (8.4-10.2) mg/dL Adrenal panel 09/24/17 Range/Units 15:11 Sodium 135 L (137-145) mmol/L Potassium 5.0 (3.5-5.1) mmol/L Chloride 99 (98-107) mmol/L Carbon Dioxide 21 L (22-30) mmol/L BUN 22 H (7-17) mg/dL Creatinine 0.50 L (0.52-1.04) mg/dL Glucose 388 H (74-99) mg/dL Calcium 9.1 (8.4-10.2) mg/dL Total Bilirubin 0.4 (0.2-1.3) mg/dL AST 16 (14-36) U/L ALT 36 (9-52) U/L Alkaline Phosphatase 249 H (38-126) U/L Total Protein 5.6 L (6.3-8.2) g/dL Albumin 3.0 L (3.5-5.0) g/dL - Imaging Chest x-ray: report reviewed, image reviewed Assessment and Plan (1) Squamous cell lung cancer Current Visit: No Status: Resolved Code(s): C34.90 - MALIGNANT NEOPLASM OF UNSP PART OF UNSP BRONCHUS OR LUNG SNOMED Code(s): 708013844 (2) Dehydration Current Visit: Yes Status: Acute Code(s): E86.0 - DEHYDRATION SNOMED Code( s): 58658767 (3) Gastroparesis due to DM Current Visit: No Status: Resolved Code(s): E11.43 - TYPE 2 DIABETES W DIABETIC AUTONOMIC (POLY)NEUROPATHY; K31.84 - GASTROPARESIS SNOMED Code(s): 443513205 (4) History of ITP Current Visit: No Status: Resolved Code(s): Z86.2 - PRSNL HISTORY OF DIS OF THE BLD/BLD-FORM ORG/IMMUN [facility] SNOMED Code(s): 515787561 (5) History of gastric ulcer Current Visit: No Status: Resolved Code(s): Z87.19 - PERSONAL HISTORY OF OTHER DISEASES OF THE DIGESTIVE SYSTEM SNOMED Code(s): 071261881 (6) Tobacco dependence in remission Current Visit: No Status: Resolved Code(s): F17.201 - NICOTINE DEPENDENCE, UNSPECIFIED, IN REMISSION SNOMED Code(s): 648970256 (7) Urinary retention with incomplete bladder emptying Current Visit: No Status: Resolved Code(s): R33.9 - RETENTION OF URINE, UNSPECIFIED SNOMED Code(s): 848451603 (8) Coronary artery disease Current Visit: Yes Status: Chronic Code(s): I25.10 - ATHSCL HEART DISEASE OF [place] CORONARY ARTERY W/O ANG PCTRS SNOMED Code(s): 57086963 (9) Diabetes mellitus Current Visit: Yes Status: Chronic Code(s): E11.9 - TYPE 2 DIABETES MELLITUS WITHOUT COMPLICATIONS SNOMED Code(s): 34757342 (10) History of heart artery stent Current Visit: Yes Status: Chronic Code(s): Z95.5 - PRESENCE OF CORONARY ANGIOPLASTY IMPLANT AND GRAFT SNOMED Code(s): 945183576 (11) Hypothyroid Current Visit: Yes Status: Chronic Code(s): E03.9 - HYPOTHYROIDISM, UNSPECIFIED SNOMED Code(s): 51523181 (12) Status post lobectomy of lung Current Visit: Yes Status: Chronic Code(s): Z90.2 - ACQUIRED ABSENCE OF LUNG [PART OF] SNOMED Code(s): 511119809 Plan: The patient was seen and examined at the bedside. Chart/diagnostics were reviewed. Will discuss the case in detail with Dr. Jules. Our recommendations at this time would be for medical management per primary care service. Patient should be weaned off oxygen as she does not need it and prefers to use it as a safety net. Incentive spirometry ordered and should be encouraged. Patient needs to be encouraged to eat and drink, especially prior to taking narcotic pain medication. Increase activity, ambulate in the hallway. Will continue to monitor and make recommendations as necessary. Would discharge patient is to follow-up with Dr. Jules in the office on October 04 at 12:45 PM with chest x-ray to be completed prior to appointment. Thank you for this consult. We look for torn through the care of your patient. Time with Patient: Greater than 30
--- NOTE | 2017-09-25 10:10 | P.CNPUL ---
History of Present Illness Consult date: 09/25/17 Reason for consult: dyspnea, cough, COPD, pneumothorax, lung mass, abnormal CXR/ CT Chief complaint: Shortness of breath History of present illness: Pulmonary consultation dated 09/25/2017 This is a 67-year-old female who was recently in the hospital for a robotic- assisted thoracoscopic left upper lobectomy for early-stage non-small cell lung carcinoma. 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 The patient was in the hospital for a number of days post surgery and was eventually discharged. She only remain home for a couple days which time she was readmitted with shortness of breath cough and just not feeling well. She underwent bronchoscopy. It was done by Dr. Jules. Was for retained secretions. She also saw Dr. Kemp on her last admission for gastroparesis. She was sent home on her normal breathing medications and some prednisone. She is readmitted because her chest x-ray showing some volume loss on the left side and the patient just really isn't been feeling well and hasn't been thriving. She has a history of CAD diabetes fibromyalgia GERD and myocardial infarction. She also has a history of ITP IBS diverticular disease and hiatal hernia and restless leg syndrome among other things. The surgery well well. Problem is that she really not coughing or taking deep breaths and using the incentive spirometer as recommended. Review of Systems A 12 point review of systems is positive for shortness of breath cough decreased appetite and is failing to thrive. Past Medical History Past Medical History: Coronary Artery Disease (CAD), Diabetes Mellitus, Fibromyalgia, GERD/Reflux, Myocardial Infarction ([place]) Additional Past Medical History / Comment(s): Idiopathic thrombocytopenia purpura, IBS, diverticulitis, hiatal hernia, 2 herniated discs-L3/L4, Restless Leg Syndrome, gastritis, superficial gastric ulcers. nodule on lt lung-Cancer Stg 1 Last Myocardial Infarction Date:: 01/2017 History of Any Multi-Drug Resistant Organisms: None Reported Past Surgical History: Adenoidectomy, Bladder Surgery, Bowel Resection, Cholecystectomy, Heart Catheterization With Stent, Hernia Repair, Hysterectomy, Tonsillectomy Additional Past Surgical History / Comment(s): BLADDER SUSPENSION x 2, breast biopsy x3, bowel resection due to rupture. left upper lobe of lung removed per [place] Past Anesthesia/Blood Transfusion Reactions: No Reported Reaction Additional Past Anesthesia/Blood Transfusion Reaction / Comment(s): Pt received blood in 2005 due to ITP without reaction. Date of Last Stent Placement:: 01/2017 Smoking Status: Former smoker Past Alcohol Use History: None Reported Past Drug Use History: None Reported - Past Family History Mother Family Medical History: Cancer, Diabetes Mellitus Additional Family Medical History / Comment(s): Father had a defibrillator. He of heart dx in his 80's Father Family Medical History: Diabetes Mellitus Additional Family Medical History / Comment(s): HEART DISEASE Medications and Allergies Home Medications Medication Instructions Recorded Confirmed Type Loperamide [Imodium] 2 mg PO Q8HR PRN 04/04/14 09/24/17 History Insulin Aspart [NovoLOG Flexpen] See Protocol SQ PC-TID PRN 08/02/15 09/24/17 History ALPRAZolam 0.25 mg PO BID PRN 11/03/15 09/24/17 History Insulin Detemir [Levemir] 30 unit SQ DAILY@1200 11/09/15 09/24/17 History Solifenacin Succinate [Vesicare] 10 mg PO HS 04/12/16 09/24/17 History rOPINIRole HCL [Requip] 0.25 mg PO HS 04/12/16 09/24/17 History HYDROcodone/APAP 7.5-325MG [[place] 1 tab PO Q4H PRN 01/14/17 09/24/17 History 7.5-325] Pantoprazole [Protonix] 40 mg PO QAM PRN 01/14/17 09/24/17 History Aspirin 81 mg PO DAILY chew 01/17/17 09/24/17 Rx Metoprolol Tartrate [Lopressor] 25 mg PO BID #60 tab 01/17/17 09/24/17 Rx Nitroglycerin Sl Tabs [Nitrostat] 0.4 mg SUBLINGUAL Q5M PRN #21 tab 01/17/1705/13 Rx Clopidogrel Bisulfate [Plavix] 75 mg PO DAILY 06/26/17 09/24/17 History Atorvastatin [Lipitor] 80 mg PO DAILY 08/31/17 09/24/17 History Budesonide-Formot 160-4.5 Mcg 2 puff INHALATION RT-BID 08/31/17 09/24/17 History [Symbicort 160-4.5 Mcg Inhaler] Ipratropium/Albuterol Sulfate 1 puff INHALATION RT-QID 08/31/17 09/24/17 History [Combivent Respimat Inhaler] Lisinopril [Prinivil] 5 mg PO BID 08/31/17 09/24/17 History Naproxen [Naprosyn] 500 mg PO BID PRN 08/31/17 09/24/17 History Levofloxacin [Levaquin] 500 mg PO DAILY #7 tab 09/22/17 09/24/17 Rx Tamsulosin [Flomax] 0.4 mg PO DAILY #30 cap.er.24h 09/22/17 09/24/17 Rx predniSONE See Taper PO DAILY 09/24/17 09/24/17 History Allergies Allergy/AdvReac Type Severity Reaction Status Date / Time No Known Allergies Allergy Verified 09/24/17 14:37 Physical Exam Osteopathic Statement: *. No significant issues noted on an osteopathic structural exam other than those noted in the History and Physical/Consult. Vitals: Vital Signs Temp Pulse Pulse Resp BP BP Pulse Ox 09/25/17 07:19 84 09/25/17 07:02 85 09/25/17 05:57 98.4 F 79 17 137/65 96 09/24/17 22:46 97.7 F 81 17 90/48 96 09/24/17 21:45 99.4 F 09/24/17 18:23 98.4 F 98 17 126/75 95 09/24/17 17:31 99 F 103 H 18 138/69 96 09/24/17 16:38 18 09/24/17 16:36 103 H 18 140/62 98 09/24/17 15:35 103 H 18 149/64 97 09/24/17 14:24 97.9 F 108 H 20 113/55 95 Intake and Output 09/24/17 09/25/17 09/25/17 22:59 06:59 14:59 Other: Voiding Method Bedpan # Voids 1 2 No acute distress, oriented 3. Pale. HEENT examination is grossly unremarkable. Mucous membranes are moist. No oral lesions. Neck supple. Full range of motion. No adenopathy thyromegaly or neck vein distention. Cardiovascular examination reveals regular rhythm rate. S1-S2 normal. No S3 or S4. No discernible murmur noted. Lungs reveal diminished breath sounds particularly on the left side. A few scattered rhonchi and crackles are appreciated. Breath sounds are diminished throughout. No wheezes. There is prolongation on forced maneuver. Abdomen soft bowel sounds are heard. No masses or tenderness. Extremities are intact. No cyanosis clubbing or edema. Skin is without rash or lesion. Neurologic examination is brief but nonfocal. Results - Laboratory Findings CBC and BMP: 09/24/17 15:11 09/24/17 15:11 Abnormal lab findings: Abnormal Labs 09/24/17 09/24/17 09/24/17 15:11 15:11 15:11 WBC 17.2 H Plt Count 671 H Neutrophils # 14.7 H Sodium 135 L Carbon Dioxide 21 L BUN 22 H Creatinine 0.50 L Glucose 388 H POC Glucose (mg/dL) Hemoglobin A1c Alkaline Phosphatase 249 H CK-MB (CK-2) 3.9 H* Total Protein 5.6 L Albumin 3.0 L Lipase 362 H Urine Glucose (UA) Urine Ketones 09/24/17 09/24/17 09/24/17 15:11 16:30 18:05 WBC Plt Count Neutrophils # Sodium Carbon Dioxide BUN Creatinine Glucose POC Glucose (mg/dL) 313 H Hemoglobin A1c 11.9 H Alkaline Phosphatase CK-MB (CK-2) Total Protein Albumin Lipase Urine Glucose (UA) 4+ H Urine Ketones 1+ H 09/24/17 09/25/17 20:30 07:13 WBC Plt Count Neutrophils # Sodium Carbon Dioxide BUN Creatinine Glucose POC Glucose (mg/dL) 301 H 211 H Hemoglobin A1c Alkaline Phosphatase CK-MB (CK-2) Total Protein Albumin Lipase Urine Glucose (UA) Urine Ketones - Diagnostic Findings Chest x-ray: report reviewed (Chest x-ray labs and medications are all reviewed. ), image reviewed Assessment and Plan Assessment: Assessment Status post recent robotic-assisted thoracoscopic left upper lobectomy for non- small cell lung cancer/squamous cell carcinoma Prolonged hospitalization secondary to volume loss abnormal chest x-ray bronchoscopy and gastroparesis History of CAD History of diabetes mellitus Fibromyalgia GERD Myocardial infarction ITP IBS Hiatal hernia Restless leg syndrome Plan: Plan dated 09/25/2017 The patient's labs x-rays a medications are all reviewed. I don't think the prednisone is really helping very much. The patient on breathing treatments. We'll put the patient on Pulmicort and Perforomist. The patient will may be need another bronchoscopy prior to discharge. We will do this before or Sunday. Additional recommendations and suggestions are forthcoming. Prognosis is guarded. She doesn't really need to take deep breaths coughing clearing secretions. We also recommend incentive spirometer every hour while awake. Time with Patient: Greater than 30
[2017-09-25 10:36] VITALS: BMI 21.5
[2017-09-25] MEDS: METOCLOPRAMIDE 10 MG TAB PO SCH ×2 (11:20→18:03)
[2017-09-25] MEDS ORDERED: INSULIN DETEMIR 100 UNIT/ML 10 ML VIAL SQ SCH (12:00)
[2017-09-25 12:01] LABS: Glucose,Whole Blood 238 mg/dL (75-99)
[2017-09-25 17:33] LABS: Glucose,Whole Blood 372 mg/dL (75-99)
[2017-09-25] MEDS: ACETAMINOPHEN TAB 325 MG TAB PO PRN ×2 (18:03→23:03)
[2017-09-25] MEDS: BUDESONIDE 1 MG/2 ML NEBU INHALATION SCH (20:04)
[2017-09-25] MEDS: FORMOTEROL FUMARATE 20 MCG/2 ML NEBU INHALATION SCH (20:04)
[2017-09-25 21:33] LABS: Glucose,Whole Blood 183 mg/dL (75-99)
[2017-09-26] MEDS: LACTATED RINGERS 1,000 ML IV SCH ×2 (00:22→12:28)
[2017-09-26] MEDS: HYDROcodone/APAP 7.5-325MG 1 EACH TAB PO PRN ×4 (01:37→22:03)
--- NOTE | 2017-09-26 05:36 | PN ---
PROGRESS NOTE DATE OF SERVICE: 09/25/2017. PRESENTING COMPLAINT: Tired. INTERVAL HISTORY: This is a patient status post left upper lobectomy, presents with severe nausea and vomiting. Has done better with hydration. Some of the pain medications were discontinued. Feeling better. Did tolerate some diet. Sitting up, active, paying her bills. REVIEW OF SYSTEMS: Done for constitutional, cardiovascular, GI, pulmonary; relevant findings as above. CURRENT MEDICATIONS: Reviewed include LR and Levaquin. PHYSICAL EXAMINATION: Temperature 98.4, pulse 79, respirations 17, blood pressure 137/75, pulse ox 95% on 2 L. GENERAL APPEARANCE: More awake, sitting up, tired. EYES: Pupils equal. Conjunctivae pale. HEENT: External appearance of nose and ears normal. Oral cavity dry. NECK: JVD not raised. Mass not palpable. Respiratory effort increased. LUNGS: Diminished breath sounds. CARDIOVASCULAR: 1st and 2nd heart sounds. No edema. ABDOMEN: Soft, nontender. Liver and spleen not palpable. PSYCHIATRY: Alert and oriented x3. Mood and affect normal. INVESTIGATIONS: Accu-Cheks are noted. ASSESSMENT: 1. Severe nausea as a side effect of medications including naproxen and [place]. Discussed with the patient to keep off the same. 2. Chronic obstructive pulmonary disease in an ex-smoker. 3. Clinical dehydration with clinical improvement. 4. Recent left upper lobectomy with pathology coming back as squamous cell with lymph nodes being negative. 5. Chronic fibromyalgia. 6. Gastroesophageal reflux disease. 7. Coronary artery disease, prior history of stent. 8. Inflammatory bowel syndrome. 9. Herniated disk, chronic, L3-L4. 10.Restless legs syndrome. 11.Primary osteoarthritis, multiple joints bilateral. PLAN: Continue medication and treatment plan. Will cut back on IV fluids. Oral intake is improved. We will put the patient on scheduled Humalog with meals as oral intake is improved. Will follow. MMODL / IJN: [id number] /
[2017-09-26 07:27] LABS: Glucose,Whole Blood 159 mg/dL (75-99)
--- NOTE | 2017-09-26 07:45 | XR ---
EXAMINATION TYPE: XR chest 2V DATE OF EXAM: 09/26/2017 COMPARISON: Prior exam dated 09/24/2017. HISTORY: Pneumonia TECHNIQUE: Frontal and lateral views of the chest are obtained. FINDINGS: Persistent loss of volume of the left hemithorax. Infiltrative density produces silhouettin g of the left diaphragm. Small apical pneumothorax on the left persists and is stable. The right lung remains clear. IMPRESSION: Persistent small apical pneumothorax on the left measuring less than 5 %. Persistent infi ltrate in the left lung with loss of volume. The left diaphragm remains silhouetted.
[2017-09-26] MEDS: INSULIN ASPART 100 UNIT/ML 1 ML 10 ML VIAL SQ SCH ×7 (08:15→22:01)
[2017-09-26] MEDS: METOCLOPRAMIDE 10 MG TAB PO SCH ×2 (08:16→17:30)
[2017-09-26] MEDS: ASPIRIN 81 MG PO SCH (08:16)
[2017-09-26] MEDS: TROSPIUM CHLORIDE 20 MG TABLET PO SCH ×2 (08:17→22:03)
[2017-09-26] MEDS: METOPROLOL TARTRATE 25 MG TAB PO SCH ×2 (08:17→22:02)
[2017-09-26] MEDS: ATORVASTATIN 80 MG TAB PO SCH (08:17)
[2017-09-26] MEDS: ENOXAPARIN 40 MG/0.4 ML SYRINGE SQ SCH (08:17)
[2017-09-26] MEDS: CLOPIDOGREL 75 MG TAB PO SCH (08:17)
[2017-09-26] MEDS: LEVOFLOXACIN 500 MG TAB PO SCH (08:17)
[2017-09-26] MEDS: TAMSULOSIN 0.4 MG CAP.ER.24H PO SCH (08:17)
[2017-09-26] MEDS: LISINOPRIL 5 MG TAB PO SCH ×2 (08:17→22:02)
[2017-09-26] MEDS: INSULIN DETEMIR 100 UNIT/ML 10 ML VIAL SQ SCH (08:20)
[2017-09-26] MEDS: FORMOTEROL FUMARATE 20 MCG/2 ML NEBU INHALATION SCH ×2 (08:59→20:05)
[2017-09-26] MEDS: IPRATROPIUM-ALBUTEROL 3 ML NEB INHALATION SCH ×4 (08:59→20:05)
[2017-09-26] MEDS: BUDESONIDE 1 MG/2 ML NEBU INHALATION SCH ×2 (08:59→20:05)
[2017-09-26 09:20] LABS: Basophils % (A) 0 %; Eosinophils # (A) 0.2 k/uL (0-0.7); Eosinophils % (A) 2 %; HCT 36.5 % (34.0-46.0); HGB 11.4 gm/dL (11.4-16.0); Hypochromasia Slight; Lymphocytes # (A) 1.7 k/uL (1.0-4.8); Lymphocytes % (A) 14 %; MCH 27.4 pg (25.0-35.0); MCHC 31.3 g/dL (31.0-37.0); MCV 87.8 fL (80.0-100.0); Monocytes # (A) 0.6 k/uL (0-1.0); Monocytes % (A) 5 %; Neutrophils # (A) 9.6 k/uL (1.3-7.7); Neutrophils % (A) 78 %; Platelet Count 522 k/uL (150-450); RBC 4.16 m/uL (3.80-5.40); RDW 15.1 % (11.5-15.5); WBC 12.3 k/uL (3.8-10.6)
[2017-09-26 09:24] LABS: Anion Gap 9 mmol/L; Blood Urea Nitrogen 10 mg/dL (7-17); Calcium 8.6 mg/dL (8.4-10.2); Carbon Dioxide 24 mmol/L (22-30); Chloride 105 mmol/L (98-107); Glucose 224 mg/dL (74-99); Potassium 4.5 mmol/L (3.5-5.1); Sodium 138 mmol/L (137-145)
--- NOTE | 2017-09-26 10:11 | P.PN ---
Subjective Progress Note Date: 09/26/17 Principal diagnosis: Dyspnea Pulmonary consultation dated 09/25/2017 This is a 67-year-old female who was recently in the hospital for a robotic- assisted thoracoscopic left upper lobectomy for early-stage non-small cell lung carcinoma. 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 The patient was in the hospital for a number of days post surgery and was eventually discharged. She only remain home for a couple days which time she was readmitted with shortness of breath cough and just not feeling well. She underwent bronchoscopy. It was done by Dr. Jules. Was for retained secretions. She also saw Dr. Kemp on her last admission for gastroparesis. She was sent home on her normal breathing medications and some prednisone. She is readmitted because her chest x-ray showing some volume loss on the left side and the patient just really isn't been feeling well and hasn't been thriving. She has a history of CAD diabetes fibromyalgia GERD and myocardial infarction. She also has a history of ITP IBS diverticular disease and hiatal hernia and restless leg syndrome among other things. The surgery well well. Problem is that she really not coughing or taking deep breaths and using the incentive spirometer as recommended. Progress note dated 09/26/2017 The patient is seen again today in follow-up on the regular medical floor. She is awake and alert in no acute distress. She is breathing easier today as compared to yesterday. She continues with a loose nonproductive cough. She continues to maintain good O2 saturations in the mid 90s on room air. She's been afebrile. Hemodynamically stable. Blood cultures reveal no growth. White count 12.3. Hemoglobin 11.4. Creatinine 0.54. She is continued on bronchodilators. Objective - Vital Signs Vital signs: Vital Signs Temp 98.9 F 09/26/17 05:49 Pulse 88 09/26/17 09:22 Resp 18 09/26/17 05:49 BP 101/49 09/26/17 05:49 Pulse Ox 97 09/26/17 08:59 Intake & Output 09/25/17 09/26/17 09/26/17 18:59 06:59 18:59 Intake Total 300 Balance 300 Weight 53.524 kg Intake: Oral 300 Other: Voiding Method Bedside Commode # Voids 2 2 # Bowel Movements 2 0 - Exam No acute distress, oriented 3. Pale. HEENT examination is grossly unremarkable. Mucous membranes are moist. No oral lesions. Neck supple. Full range of motion. No adenopathy thyromegaly or neck vein distention. Cardiovascular examination reveals regular rhythm rate. S1-S2 normal. No S3 or S4. No discernible murmur noted. Lungs reveal diminished breath sounds particularly on the left side. A few scattered rhonchi and crackles are appreciated. Breath sounds are diminished throughout. No wheezes. There is prolongation on forced maneuver. Abdomen soft bowel sounds are heard. No masses or tenderness. Extremities are intact. No cyanosis clubbing or edema. Skin is without rash or lesion. Neurologic examination is brief but nonfocal. - Labs CBC & Chem 7: 09/26/17 08:33 09/26/17 08:33 Labs: Abnormal Lab Results - Last 24 Hours (Table) 09/25/17 09/25/17 09/25/17 Range/Units 11:49 17:26 21:13 WBC (3.8-10.6) k/uL Plt Count (150-450) k/uL Neutrophils # (1.3-7.7) k/uL Glucose (74-99) mg/dL POC Glucose (mg/dL) 238 H 372 H 183 H (75-99) mg/dL 09/26/17 09/26/17 09/26/17 Range/Units 07:06 08:33 08:33 WBC 12.3 H (3.8-10.6) k/uL Plt Count 522 H (150-450) k/uL Neutrophils # 9.6 H (1.3-7.7) k/uL Glucose 224 H (74-99) mg/dL POC Glucose (mg/dL) 159 H (75-99) mg/dL Microbiology - Last 24 Hours (Table) 09/24/17 15:11 Blood Culture - Preliminary Blood No Growth after 24 hours Assessment and Plan Assessment: Assessment Status post recent robotic-assisted thoracoscopic left upper lobectomy for non- small cell lung cancer/squamous cell carcinoma Prolonged hospitalization secondary to volume loss abnormal chest x-ray bronchoscopy and gastroparesis History of CAD History of diabetes mellitus Fibromyalgia GERD Myocardial infarction ITP IBS Hiatal hernia Restless leg syndrome Plan: The patient was seen and evaluated by Dr. Lan. She is improved today as compared to yesterday. We'll continue with her current treatment. We'll repeat a chest x-ray in the morning. We'll decide then if we need to proceed with bronchoscopy tomorrow or not. In the interim she is encouraged to increase her activity. Increase the use of the incentive spirometer and cough and deep breathing. Spend more time up in the chair and less time in bed. We will continue to follow and make further recommendations based on her clinical status. I, the cosigning physician, performed a history & physical examination of the patient. Lungs sounds with few scattered rhonchi more so on the left. Maintaining good O2 saturations in the 90s on room air. I discussed the assessment and plan of care with my nurse practitioner, Gaye Tsang. I attest to the above note as dictated by her.
--- NOTE | 2017-09-26 10:19 | P.PN ---
Subjective Progress Note Date: 09/26/17 Principal diagnosis: Left upper lobe mass with pathology showing his squamous cell carcinoma, postoperative robotic assisted thoracoscopic left upper lobectomy with mediastinal lymph node dissection, history of perforated gastric ulcer with exploratory laparotomy patient, history of ITP, hypothyroid, diabetes mellitus type 2, previous tobacco dependence, history of gastroparesis, history of urinary retention, history of postoperative left pleural effusion, hiatal hernia , risks leg syndrome, history of myocardial infarction, COPD and fibromyalgia. Patient is sitting up to the bedside chair. She is in no acute distress. She denies any pain or shortness of breath this time. Reports that she feels much better today and hasn't felt this good in weeks. Oxygen saturations are 95% on room air, she is achieving 1000 mL on her incentive spirometry. Complaining of an episode of diarrhea yesterday. Objective - Vital Signs Vital signs: Vital Signs Temp 98.9 F 09/26/17 05:49 Pulse 96 09/26/17 05:49 Resp 18 09/26/17 05:49 BP 101/49 09/26/17 05:49 Pulse Ox 95 09/26/17 05:49 Intake & Output 09/25/17 09/26/17 09/26/17 18:59 06:59 18:59 Intake Total 300 Balance 300 Weight 53.524 kg Intake: Oral 300 Other: Voiding Method Bedside Commode # Voids 2 2 # Bowel Movements 2 0 - Constitutional General appearance: Present: average body habitus, no acute distress - Respiratory Details: Lung sounds are essentially clear to her right lobes, diminished to her left lobes. Respirations are symmetrical and nonlabored. Oxygen saturation is 95% on room air. She is achieving 1000 mL on her incentive spirometry. - Cardiovascular Details: Regular rhythm and rate. S1 and S2 present, negative for S3, gallop or murmur. No edema present. Knee-high sequential compression devices in place her bilateral lower extremities. - Gastrointestinal Gastrointestinal Comment(s): Abdomen soft, nontender nondistended. Active bowel sounds all 4 abdominal quadrants. Tolerating oral intake. Bowel movement yesterday 09/25/2017. - Genitourinary Genitourinary Comment(s): Voiding clear yellow urine. - Integumentary Integumentary Comment(s): Skin is warm and dry. No clubbing or cyanosis present. No rash or abnormal pigmentation present. - Neurologic Neurologic Comment(s): No focal deficits. Neurologic: Present: CNII-XII intact - Musculoskeletal Musculoskeletal: Present: gait normal, strength equal bilaterally - Psychiatric Psychiatric: Present: A&O x's 3, appropriate affect, intact judgment & insight - Allied health notes Allied health notes reviewed: nursing - Labs CBC & Chem 7: 09/26/17 08:33 09/26/17 08:33 Labs: Abnormal Lab Results - Last 24 Hours (Table) 09/25/17 09/25/17 09/25/17 Range/Units 11:49 17:26 21:13 POC Glucose (mg/dL) 238 H 372 H 183 H (75-99) mg/dL 09/26/17 Range/Units 07:06 POC Glucose (mg/dL) 159 H (75-99) mg/dL Microbiology - Last 24 Hours (Table) 09/24/17 15:11 Blood Culture - Preliminary Blood No Growth after 24 hours - Imaging and Cardiology Chest x-ray: report reviewed, image reviewed Assessment and Plan (1) Dehydration Current Visit: Yes Status: Acute Code(s): E86.0 - DEHYDRATION SNOMED Code( s): 80424341 (2) Failure to thrive Current Visit: Yes Status: Acute Code(s): OAS6445 - SNOMED Code(s): 31167862 (3) Coronary artery disease Current Visit: Yes Status: Chronic Code(s): I25.10 - ATHSCL HEART DISEASE OF [place] CORONARY ARTERY W/O ANG PCTRS SNOMED Code(s): 77655013 (4) Diabetes mellitus Current Visit: Yes Status: Chronic Code(s): E11.9 - TYPE 2 DIABETES MELLITUS WITHOUT COMPLICATIONS SNOMED Code(s): 32968388 (5) History of heart artery stent Current Visit: Yes Status: Chronic Code(s): Z95.5 - PRESENCE OF CORONARY ANGIOPLASTY IMPLANT AND GRAFT SNOMED Code(s): 814937674 (6) Hypothyroid Current Visit: Yes Status: Chronic Code(s): E03.9 - HYPOTHYROIDISM, UNSPECIFIED SNOMED Code(s): 89914995 (7) Status post lobectomy of lung Current Visit: Yes Status: Chronic Code(s): Z90.2 - ACQUIRED ABSENCE OF LUNG [PART OF] SNOMED Code(s): 705957858 (8) History of gastritis Current Visit: No Status: Acute Code(s): Z87.19 - PERSONAL HISTORY OF OTHER DISEASES OF THE DIGESTIVE SYSTEM SNOMED Code(s): 141537554192803 (9) History of myocardial infarction Current Visit: No Status: Acute Code(s): I25.2 - OLD MYOCARDIAL INFARCTION SNOMED Code(s): 413638737 (10) Gastroparesis due to DM Current Visit: No Status: Resolved Code(s): E11.43 - TYPE 2 DIABETES W DIABETIC AUTONOMIC (POLY)NEUROPATHY; K31.84 - GASTROPARESIS SNOMED Code(s): 016664274 (11) History of ITP Current Visit: No Status: Resolved Code(s): Z86.2 - PRSNL HISTORY OF DIS OF THE BLD/BLD-FORM ORG/IMMUN MECHNSM SNOMED Code(s): 208086790 (12) History of gastric ulcer Current Visit: No Status: Resolved Code(s): Z87.19 - PERSONAL HISTORY OF OTHER DISEASES OF THE DIGESTIVE SYSTEM SNOMED Code(s): 762549892 (13) Squamous cell lung cancer Current Visit: No Status: Resolved Code(s): C34.90 - MALIGNANT NEOPLASM OF UNSP PART OF UNSP BRONCHUS OR LUNG SNOMED Code(s): 491895855 (14) Tobacco dependence in remission Current Visit: No Status: Resolved Code(s): F17.201 - NICOTINE DEPENDENCE, UNSPECIFIED, IN REMISSION SNOMED Code(s): 711851774 (15) Urinary retention with incomplete bladder emptying Current Visit: No Status: Resolved Code(s): R33.9 - RETENTION OF URINE, UNSPECIFIED SNOMED Code(s): 793218058 Plan: 1. Encourage use of her incentive spirometry every hour while awake. 2. Continue pain control per current when necessary regimen. 3. Encourage increase activity as tolerated. Out of bed for all meals. Ambulate in the hallway 4 times a day. 4. Pulmonary management per Dr. Lan's recommendations. 5. Monitor daily labs and chest x-rays. 6. Diabetic management per primary care service. 7. More recommendations to follow based on patient's clinical course. Time with Patient: Greater than 30
[2017-09-26 12:08] LABS: Glucose,Whole Blood 159 mg/dL (75-99)
--- NOTE | 2017-09-26 16:55 | PN ---
PROGRESS NOTE DATE OF SERVICE: 09/26/2017 PRESENT COMPLAINT: Tired. INTERVAL HISTORY: Patient is status post left upper lobectomy, presents with severe nausea, vomiting, chest congestion. Using the IS, feeling better, doing better with hydration, actually tolerating a diet. Did walk up to the bathroom. Daughter at the bedside. REVIEW OF SYSTEMS: Done for constitutional, cardiovascular, GI, pulmonary; relevant findings as above. CURRENT MEDICATIONS: Reviewed that include: 1. DuoNeb. 2. LR. 3. Levaquin. EXAMINATION: Temperature 97.8, pulse 98, respirations 16, blood pressure 130/68, pulse ox 95% on room air. GENERAL APPEARANCE: Sitting up, appearing far more comfortable. EYES: Pupils equal. Conjunctivae pale. HEENT: External nose and ears normal. Oral cavity normal. NECK: JVD not raised. Mass not palpable. RESPIRATORY: Effort increased. LUNGS: Decreased breath sounds. CARDIOVASCULAR: First and second sounds normal. No edema. ABDOMEN: Soft, nontender. Liver and spleen not palpable. PSYCHIATRY: Alert and oriented x3. Mood and affect were normal. INVESTIGATIONS: White count 12.3. Potassium 4.5. ASSESSMENT: 1. Severe nausea, side effect of medications including naproxen, [place], doing better. 2. Clinical dehydration with significant improvement. 3. Chronic obstructive pulmonary disease in an ex-smoker with possibly an acute exacerbation. 4. Recent left upper lobectomy with pathology coming back as squamous cell with lymph nodes being negative. 5. Pulmonary congestion from routine secretions, doing better. 6. Chronic fibromyalgia. 7. Gastroesophageal reflux disease. 8. Coronary artery disease, prior history of stent. 9. Inflammatory bowel disease. 10.Herniated disc, chronic L3-L4. 11.Restless legs syndrome. 12.Primary osteoarthritis multiple joints, bilateral. PLAN: Overall, patient is doing better. Oral intake is significantly improved. Ambulating better, was eating better. Chest x-ray from this morning shows some haziness on the left side with some infiltrate. Care was discussed with the patient and daughter in detail. Continue current medication and treatment plan. MMODL / IJN: [id number] /
[2017-09-26 16:58] LABS: Glucose,Whole Blood 137 mg/dL (75-99)
[2017-09-26 21:09] LABS: Glucose,Whole Blood 182 mg/dL (75-99)
[2017-09-26] MEDS: ALPRAZolam 0.25 MG TAB PO PRN (22:03)
[2017-09-27] MEDS: ACETAMINOPHEN TAB 325 MG TAB PO PRN (00:23)
[2017-09-27 07:12] LABS: Glucose,Whole Blood 166 mg/dL (75-99)
[2017-09-27 07:43] LABS: Anion Gap 10 mmol/L; Blood Urea Nitrogen 9 mg/dL (7-17); Calcium 8.7 mg/dL (8.4-10.2); Carbon Dioxide 22 mmol/L (22-30); Chloride 106 mmol/L (98-107); Glucose 164 mg/dL (74-99); Potassium 4.4 mmol/L (3.5-5.1); Sodium 138 mmol/L (137-145)
[2017-09-27] MEDS: BUDESONIDE 1 MG/2 ML NEBU INHALATION SCH ×2 (07:48→20:37)
[2017-09-27] MEDS: IPRATROPIUM-ALBUTEROL 3 ML NEB INHALATION SCH ×5 (07:48→20:37)
[2017-09-27] MEDS: FORMOTEROL FUMARATE 20 MCG/2 ML NEBU INHALATION SCH ×2 (07:48→20:37)
--- NOTE | 2017-09-27 07:48 | P.PN ---
Subjective Progress Note Date: 09/27/17 Principal diagnosis: Left upper lobe mass with pathology demonstrating squamous cell carcinoma, postoperative day #21 robotic assisted thoracoscopic left upper lobectomy with mediastinal lymph node dissection, postoperative bronchoscopy 2. History of perforated gastric ulcer with exploratory laparotomy, ITP, IBS, hypothyroidism, diabetes mellitus type 2, previous tobacco dependence, gastroparesis, urinary retention, postoperative pleural effusion, hiatal hernia, restless leg syndrome , myocardial infarction, COPD, and fibromyalgia. The patient is currently laying in bed in no acute distress on room air. States her feet breathing feels slightly better, she is concerned about getting pneumonia and numbness she feels in her abdomen. Discussed in detail with the patient the need to use her incentive spirometry and cough, as well as ambulating and eating/drinking. Objective - Vital Signs Vital signs: Vital Signs Temp 98.1 F 09/27/17 06:08 Pulse 88 09/27/17 06:08 Resp 20 09/27/17 06:08 BP 107/58 09/27/17 06:08 Pulse Ox 96 09/27/17 06:08 Intake & Output 09/26/17 09/27/17 09/27/17 18:59 06:59 18:59 Intake Total 400 300 Balance 400 300 Intake: Oral 400 300 Other: # Voids 1 1 - Constitutional General appearance: Present: cooperative, no acute distress - Respiratory Details: Lungs sounds diminished bilaterally, left greater than right. Respirations even , nonlabored. Currently on room air with oxygen saturation 96%. Able to achieve 1000 mL on her incentive spirometry. Effective cough. - Cardiovascular Details: S1, S2 present. Regular rate and rhythm. Palpable peripheral pulses bilaterally. No edema present. No calf pain or tenderness noted. SCDs present at the bedside but patient refuses to use them. - Gastrointestinal Gastrointestinal Comment(s): Abdomen soft, nontender, nondistended. Active bowel sounds present 4 quadrants. Tolerating diet, currently nothing by mouth for bronchoscopy today. Last bowel movement September 25. - Genitourinary Genitourinary Comment(s): Continues to void clear, yellow urine. - Integumentary Integumentary Comment(s): Skin is warm and dry with evidence of good perfusion. Left lateral wall chest incisions well-healed. - Neurologic Neurologic: Present: CNII-XII intact - Musculoskeletal Musculoskeletal: Present: gait normal, strength equal bilaterally - Psychiatric Psychiatric: Present: A&O x's 3, appropriate affect, intact judgment & insight - Allied health notes Allied health notes reviewed: nursing - Labs CBC & Chem 7: 09/26/17 08:33 09/26/17 08:33 Labs: Abnormal Lab Results - Last 24 Hours (Table) 09/26/17 09/26/17 09/26/17 Range/Units 08:33 08:33 12:01 WBC 12.3 H (3.8-10.6) k/uL Plt Count 522 H (150-450) k/uL Neutrophils # 9.6 H (1.3-7.7) k/uL Glucose 224 H (74-99) mg/dL POC Glucose (mg/dL) 159 H (75-99) mg/dL 09/26/17 09/26/17 09/27/17 Range/Units 16:50 21:01 07:03 WBC (3.8-10.6) k/uL Plt Count (150-450) k/uL Neutrophils # (1.3-7.7) k/uL Glucose (74-99) mg/dL POC Glucose (mg/dL) 137 H 182 H 166 H (75-99) mg/dL Microbiology - Last 24 Hours (Table) 09/24/17 15:11 Blood Culture - Preliminary Blood No Growth after 48 hours - Imaging and Cardiology Chest x-ray: image reviewed Assessment and Plan (1) Squamous cell lung cancer Current Visit: No Status: Resolved Code(s): C34.90 - MALIGNANT NEOPLASM OF UNSP PART OF UNSP BRONCHUS OR LUNG SNOMED Code(s): 127729689 (2) Dehydration Current Visit: Yes Status: Acute Code(s): E86.0 - DEHYDRATION SNOMED Code( s): 72065606 (3) Gastroparesis due to DM Current Visit: No Status: Resolved Code(s): E11.43 - TYPE 2 DIABETES W DIABETIC AUTONOMIC (POLY)NEUROPATHY; K31.84 - GASTROPARESIS SNOMED Code(s): 830078292 (4) History of ITP Current Visit: No Status: Resolved Code(s): Z86.2 - PRSNL HISTORY OF DIS OF THE BLD/BLD-FORM ORG/IMMUN MECHNSM SNOMED Code(s): 264143487 (5) History of gastric ulcer Current Visit: No Status: Resolved Code(s): Z87.19 - PERSONAL HISTORY OF OTHER DISEASES OF THE DIGESTIVE SYSTEM SNOMED Code(s): 928795788 (6) Tobacco dependence in remission Current Visit: No Status: Resolved Code(s): F17.201 - NICOTINE DEPENDENCE, UNSPECIFIED, IN REMISSION SNOMED Code(s): 121335035 (7) Urinary retention with incomplete bladder emptying Current Visit: No Status: Resolved Code(s): R33.9 - RETENTION OF URINE, UNSPECIFIED SNOMED Code(s): 162009337 (8) Coronary artery disease Current Visit: Yes Status: Chronic Code(s): I25.10 - ATHSCL HEART DISEASE OF [place] CORONARY ARTERY W/O ANG PCTRS SNOMED Code(s): 86941828 (9) Diabetes mellitus Current Visit: Yes Status: Chronic Code(s): E11.9 - TYPE 2 DIABETES MELLITUS WITHOUT COMPLICATIONS SNOMED Code(s): 44721693 (10) History of heart artery stent Current Visit: Yes Status: Chronic Code(s): Z95.5 - PRESENCE OF CORONARY ANGIOPLASTY IMPLANT AND GRAFT SNOMED Code(s): 579865830 (11) Hypothyroid Current Visit: Yes Status: Chronic Code(s): E03.9 - HYPOTHYROIDISM, UNSPECIFIED SNOMED Code(s): 38456095 (12) Status post lobectomy of lung Current Visit: Yes Status: Chronic Code(s): Z90.2 - ACQUIRED ABSENCE OF LUNG [PART OF] SNOMED Code(s): 845046019 Plan: 1. Encourage increased use of her incentive spirometry, including increasing her goal. Encourage effective coughing. 2. Encourage continued smoking cessation. 3. Pain control per order regimen. 4. Increase activity, ambulate in hallway minimum 4 times daily. Patient should remain out of bed all day and be up in the chair for all meals. 5. Will monitor daily x-rays. 6. Bronchoscopy today per Dr. Lan. Bronchodilators per pulmonology. 7. Medical management of other comorbidities per primary care service. 8. Continue Levaquin to complete a seven-day course. 9. GI/DVT prophylaxis. Patient should wear SCDs when not ambulatory, however she is refusing. 10. Patient will need follow-up with Dr. Jules upon discharge, appointment already made for 10/04/2017@12:45 PM with patient to obtain chest x-ray prior to appointment, Rx for x-ray given to patient last week. 11. Will continue to monitor and make further recommendations as necessary. May be discharged to home from our standpoint when okay with other services. Time with Patient: Greater than 30
[2017-09-27] MEDS: INSULIN ASPART 100 UNIT/ML 1 ML 10 ML VIAL SQ SCH ×7 (08:39→21:11)
[2017-09-27] MEDS: METOCLOPRAMIDE 10 MG TAB PO SCH ×2 (08:41→17:54)
--- NOTE | 2017-09-27 09:27 | XR ---
EXAMINATION TYPE: XR chest 1V portable DATE OF EXAM: 09/27/2017 COMPARISON: Prior chest x-ray 09/26/2017 HISTORY: Abnormal chest x-ray TECHNIQUE: Single frontal view of the chest is obtained. FINDINGS: Similar findings to prior exam. Right lung is spared. Heart is obscured by abnormal increa se density within the left lung, there may be pleural effusion. Pneumothorax not seen. IMPRESSION: Findings similar to prior exam. Possible atelectasis and associated effusion, correlate to exclude pneumonia.
[2017-09-27] MEDS: TROSPIUM CHLORIDE 20 MG TABLET PO SCH ×2 (09:35→21:14)
[2017-09-27] MEDS: METOPROLOL TARTRATE 25 MG TAB PO SCH ×2 (09:36→21:15)
[2017-09-27] MEDS: LISINOPRIL 5 MG TAB PO SCH ×2 (09:37→21:15)
--- NOTE | 2017-09-27 10:04 | P.PN ---
Subjective Progress Note Date: 09/27/17 Principal diagnosis: Dyspnea Pulmonary consultation dated 09/25/2017 This is a 67-year-old female who was recently in the hospital for a robotic- assisted thoracoscopic left upper lobectomy for early-stage non-small cell lung carcinoma. 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 The patient was in the hospital for a number of days post surgery and was eventually discharged. She only remain home for a couple days which time she was readmitted with shortness of breath cough and just not feeling well. She underwent bronchoscopy. It was done by Dr. Jules. Was for retained secretions. She also saw Dr. Kemp on her last admission for gastroparesis. She was sent home on her normal breathing medications and some prednisone. She is readmitted because her chest x-ray showing some volume loss on the left side and the patient just really isn't been feeling well and hasn't been thriving. She has a history of CAD diabetes fibromyalgia GERD and myocardial infarction. She also has a history of ITP IBS diverticular disease and hiatal hernia and restless leg syndrome among other things. The surgery well well. Problem is that she really not coughing or taking deep breaths and using the incentive spirometer as recommended. Progress note dated 09/26/2017 The patient is seen again today in follow-up on the regular medical floor. She is awake and alert in no acute distress. She is breathing easier today as compared to yesterday. She continues with a loose nonproductive cough. She continues to maintain good O2 saturations in the mid 90s on room air. She's been afebrile. Hemodynamically stable. Blood cultures reveal no growth. White count 12.3. Hemoglobin 11.4. Creatinine 0.54. She is continued on bronchodilators. The patient is seen again today 09/27/2017 in follow-up on the regular medical floor. She is awake and alert in no acute distress. She still has a loose nonproductive cough. No chills or night sweats. She continues to maintain good O2 saturations in the 90s on room air. The plan is for bronchoscopy today. Objective - Vital Signs Vital signs: Vital Signs Temp 98.1 F 09/27/17 06:08 Pulse 80 09/27/17 08:12 Resp 20 09/27/17 06:08 BP 107/58 09/27/17 06:08 Pulse Ox 96 09/27/17 07:50 Intake & Output 09/26/17 09/27/17 09/27/17 18:59 06:59 18:59 Intake Total 400 300 0 Balance 400 300 0 Weight 53.524 kg Intake: Oral 400 300 0 Other: Voiding Method Bedside Commode # Voids 1 1 1 # Bowel Movements 0 - Exam No acute distress, oriented 3. Pale. HEENT examination is grossly unremarkable. Mucous membranes are moist. No oral lesions. Neck supple. Full range of motion. No adenopathy thyromegaly or neck vein distention. Cardiovascular examination reveals regular rhythm rate. S1-S2 normal. No S3 or S4. No discernible murmur noted. Lungs reveal diminished breath sounds particularly on the left side. A few scattered rhonchi and crackles are appreciated. Breath sounds are diminished throughout. No wheezes. There is prolongation on forced maneuver. Abdomen soft bowel sounds are heard. No masses or tenderness. Extremities are intact. No cyanosis clubbing or edema. Skin is without rash or lesion. Neurologic examination is brief but nonfocal. - Labs CBC & Chem 7: 09/26/17 08:33 09/27/17 06:56 Labs: Abnormal Lab Results - Last 24 Hours (Table) 09/26/17 09/26/17 09/26/17 Range/Units 12:01 16:50 21:01 Creatinine (0.52-1.04) mg/dL Glucose (74-99) mg/dL POC Glucose (mg/dL) 159 H 137 H 182 H (75-99) mg/dL 09/27/17 09/27/17 Range/Units 06:56 07:03 Creatinine 0.50 L (0.52-1.04) mg/dL Glucose 164 H (74-99) mg/dL POC Glucose (mg/dL) 166 H (75-99) mg/dL Microbiology - Last 24 Hours (Table) 09/24/17 15:11 Blood Culture - Preliminary Blood No Growth after 48 hours Assessment and Plan Assessment: Assessment Status post recent robotic-assisted thoracoscopic left upper lobectomy for non- small cell lung cancer/squamous cell carcinoma Prolonged hospitalization secondary to volume loss abnormal chest x-ray bronchoscopy and gastroparesis History of CAD History of diabetes mellitus Fibromyalgia GERD Myocardial infarction ITP IBS Hiatal hernia Restless leg syndrome Plan: The patient was seen and evaluated by Dr. Lan. Chest x-ray was reviewed. We' ll plan for bronchoscopy today. In the interim she is encouraged to increase her activity. Increase the use of the incentive spirometer and cough and deep breathing. Spend more time up in the chair and less time in bed. We will continue to follow and make further recommendations based on her clinical status. I, the cosigning physician, performed a history & physical examination of the patient. Lungs sounds with few scattered rhonchi more so on the left. Maintaining good O2 saturations in the 90s on room air. I discussed the assessment and plan of care with my nurse practitioner, Gaye Tsang. I attest to the above note as dictated by her.
[2017-09-27 12:00] LABS: Glucose,Whole Blood 155 mg/dL (75-99)
[2017-09-27] MEDS ORDERED: KETAMINE 10 MG/ML 20 ML VIAL ONE (12:53)
[2017-09-27] MEDS ORDERED: LIDOCAINE 1% INJ 10MG/ML (20 ML MDV) ONE (12:53)
[2017-09-27] MEDS ORDERED: GLYCOPYRROLATE 0.2 MG/ML 2 ML VIAL ONE (12:53)
[2017-09-27] MEDS ORDERED: PROPOFOL 10 MG/ML 20 ML VIAL IV ONE (12:53)
[2017-09-27] MEDS ORDERED: LACTATED RINGERS 1,000 ML IV ONE (12:54)
--- NOTE | 2017-09-27 14:47 | PCN ---
PROCEDURE NOTE PROCEDURE: Bronchoscopy, airway examination, therapeutic lavage, BAL, brushes left lower lobe, BAL left lower lobe and endobronchial biopsies left lower lobe. PREOP DIAGNOSIS: Left lung collapse. POSTOP DIAGNOSIS: Left lung collapse. The patient's procedure took place in room #1 [facility]. OPERATORS: Dr. Lan, Dr. Tsang. There was unconscious sedation or general anesthesia provided by [employer]. There was informed consent. There was universal timeout. After the patient was adequately sedated and being fully monitored, the bronchoscope was inserted through the right nostril. It passed through the right nasopharynx into the oropharynx. The hypopharynx was identified and topicalized. The structures of the hypopharynx appeared normal including anterior commissure, true cords, false cords, arytenoids, piriform sinuses, right and left vallecula and epiglottis. Next, after topicalization, bronchoscope was pushed through the glottic opening into the trachea. Trachea appeared normal. Trachea kristen was sharp. As the patient has had previous bronchoscopies and the right side was evaluated, the right side was not evaluated on this procedure. On the left side, there was near complete narrowing of the bronchus leading to the left lower lobe. The anatomy is somewhat twisted. I was able to make a counter-clockwise movement into what appeared to be the left lower lobe. The mucosa was very macerated. There were some secretions noted. There was there was lot of mucosal friability. There was diffuse erythema, hyperemia of the airways. The mucosa was very angry. There were some secretions and they were suctioned. There was no dominant mass or tumor. The bronchoscope was wedged in place from that area. Brushes were done. Endobronchial biopsies were done under direct visualization and the BAL took place. The patient tolerated the procedure well and will be recovered. No additional recommendations are made. MMODL / IJN: [id number] /
[2017-09-27 16:52] LABS: Glucose,Whole Blood 166 mg/dL (75-99)
[2017-09-27] MEDS: ENOXAPARIN 40 MG/0.4 ML SYRINGE SQ SCH (17:53)
[2017-09-27] MEDS: INSULIN DETEMIR 100 UNIT/ML 10 ML VIAL SQ SCH (17:54)
[2017-09-27] MEDS: TAMSULOSIN 0.4 MG CAP.ER.24H PO SCH (17:54)
[2017-09-27] MEDS: ATORVASTATIN 80 MG TAB PO SCH (17:54)
[2017-09-27] MEDS: LEVOFLOXACIN 500 MG TAB PO SCH (17:54)
[2017-09-27] MEDS: CLOPIDOGREL 75 MG TAB PO SCH (17:54)
[2017-09-27] MEDS: ASPIRIN 81 MG PO SCH (17:57)
[2017-09-27 18:02] LABS: Appearance,BF Blood Tinged; Color,BF Red; Nucleated Cells, Body Fluid 250 /uL; RBC, Body Fluid 16125 /uL
[2017-09-27 18:05] LABS: Mononuclear WBC,Body Fluid 10 %; Polynuclear WBC,Body Fluid 90 %; Total Cells Counted,Body Fluid 100
--- NOTE | 2017-09-27 18:50 | PN ---
PROGRESS NOTE DATE OF SERVICE: 09/27/2017 PRESENT COMPLAINT: Tired. INTERVAL HISTORY: Patient is status post left upper lobe lobectomy, admitted with nausea, vomiting, chest congestion, up and about in the hallway today did happen to go for a bronchoscopy. Breathing is much better. REVIEW OF SYSTEMS: Done for constitutional, cardiovascular, GI, pulmonary; relevant findings as above. CURRENT MEDICATIONS: Reviewed that include DuoNeb. EXAMINATION: Temperature 98.1, pulse 88, respiration 20, blood pressure 107/58, pulse ox 96% on room air. GENERAL APPEARANCE: Comfortable. EYES: Pupils equal. Conjunctivae normal. HEENT: External appearance of nose and ears normal. Oral cavity normal. NECK: JVD not raised. Mass not palpable. RESPIRATORY: Effort increased. LUNGS: Decreased breath sounds. CARDIOVASCULAR: First and second sounds normal. No edema. ABDOMEN: Soft, nontender. Liver and spleen not palpable. PSYCHIATRY: Alert and oriented x3. Mood and affect normal. INVESTIGATIONS: Potassium 4.4, BUN 9, creatinine 0.50. ASSESSMENT: 1. Severe nausea, vomiting, side effect of medications, including naproxen, [place], doing better. 2. Clinical dehydration improved. 3. Acute chronic obstructive pulmonary disease exacerbation in an ex-smoker. 4. Recent left upper lobe lobectomy with pathology showing squamous cell, being negative. 5. Pulmonary congestion from secretions. 6. Chronic fibromyalgia. 7. Gastroesophageal reflux disease. 8. Coronary artery disease with prior history of stent. 9. Inflammatory bowel disease. 10.Herniated disc L3-L4, chronic. 11.Restless legs syndrome. 12.Primary osteoarthritis multiple joints, bilateral. PLAN: Continue current medication and treatment plan. Awaiting bronchoscopy this afternoon. Care was discussed with the patient, daughter at the bedside. Hopefully, patient can go home tomorrow. MMODL / IJN: [id number] /
[2017-09-27 20:52] LABS: Glucose,Whole Blood 365 mg/dL (75-99)
[2017-09-27 20:52] LABS: Glucose,Whole Blood 339 mg/dL (75-99)
[2017-09-27] MEDS ORDERED: MELATONIN 3 MG TABLET PO SCH (21:00)
[2017-09-27] MEDS: ALPRAZolam 0.25 MG TAB PO PRN (21:14)
[2017-09-27 22:53] VITALS: RESP 20
[2017-09-28] MEDS: HYDROcodone/APAP 7.5-325MG 1 EACH TAB PO PRN (00:33)
[2017-09-28 06:09] VITALS: BP 96/53; TEMP 97.4
--- NOTE | 2017-09-28 07:04 | XR ---
EXAMINATION TYPE: XR chest 2V DATE OF EXAM: 09/28/2017 COMPARISON: Prior chest 09/27/2017 HISTORY: Status post bronchoscopy TECHNIQUE: Frontal and lateral views of the chest are obtained. FINDINGS: There is some interval improvement in aeration in the left lung. Postop changes show simil ar appearance, there is volume loss in the left hemithorax. No evident pneumothorax or sizable effusi on. Some persistent consolidation noted in the left lung. IMPRESSION: No evident complication status post bronchoscopy.
[2017-09-28 07:09] LABS: Glucose,Whole Blood 136 mg/dL (75-99)
--- NOTE | 2017-09-28 07:40 | P.PN ---
Subjective Progress Note Date: 09/28/17 Principal diagnosis: Left upper lobe mass with pathology demonstrating squamous cell carcinoma, postoperative day #22 robotic assisted thoracoscopic left upper lobectomy with mediastinal lymph node dissection, postoperative bronchoscopy 2. History of perforated gastric ulcer with exploratory laparotomy, ITP, IBS, hypothyroidism, diabetes mellitus type 2, previous tobacco dependence, gastroparesis, urinary retention, postoperative pleural effusion, hiatal hernia, restless leg syndrome , myocardial infarction, COPD, and fibromyalgia. POD #1 bronchoscopy, airway examination, therapeutic lavage, BAL, brushings, and endobronchial biopsies of the left lower lobe The patient is currently sitting up in bed in no acute distress. She is in very good spirits, denies pain or shortness of breath. States she feels significantly better and would like to go home. Objective - Vital Signs Vital signs: Vital Signs Temp 97.4 F L 09/28/17 06:00 Pulse 67 09/28/17 06:00 Resp 20 09/28/17 06:00 BP 96/53 09/28/17 06:00 Pulse Ox 95 09/28/17 06:00 Intake & Output 09/27/17 09/28/17 09/28/17 18:59 06:59 18:59 Intake Total 100 500 Balance 100 500 Weight 53.524 kg Intake: IV 100 Oral 0 500 Other: Voiding Method Bedside Commode # Voids 1 2 # Bowel Movements 0 - Constitutional General appearance: Present: cooperative, no acute distress - Respiratory Details: Lungs sounds diminished bilaterally, left greater than right. Respirations even , nonlabored. Currently on room air with oxygen saturation 95%. Able to achieve 0025-2647 mL on her incentive spirometry. Effective cough. - Cardiovascular Details: S1, S2 present. Regular rate and rhythm. Palpable peripheral pulses bilaterally. No edema present. No calf pain or tenderness noted. SCDs present at the bedside but patient refuses to use them. - Gastrointestinal Gastrointestinal Comment(s): Abdomen soft, nontender, nondistended. Active bowel sounds present 4 quadrants. Tolerating diet. Last bowel movement September 25. - Genitourinary Genitourinary Comment(s): Continues to void clear, yellow urine. - Integumentary Integumentary Comment(s): Skin is warm and dry with evidence of good perfusion. Left lateral wall chest incisions well-healed. - Neurologic Neurologic: Present: CNII-XII intact - Musculoskeletal Musculoskeletal: Present: gait normal, strength equal bilaterally - Psychiatric Psychiatric: Present: A&O x's 3, appropriate affect, intact judgment & insight - Allied health notes Allied health notes reviewed: nursing - Labs CBC & Chem 7: 09/26/17 08:33 09/27/17 06:56 Labs: Abnormal Lab Results - Last 24 Hours (Table) 09/27/17 09/27/17 09/27/17 Range/Units 06:56 11:57 16:49 Creatinine 0.50 L (0.52-1.04) mg/dL Glucose 164 H (74-99) mg/dL POC Glucose (mg/dL) 155 H 166 H (75-99) mg/dL 09/27/17 09/27/17 09/28/17 Range/Units 20:47 20:49 07:07 Creatinine (0.52-1.04) mg/dL Glucose (74-99) mg/dL POC Glucose (mg/dL) 339 H 365 H 136 H (75-99) mg/dL Microbiology - Last 24 Hours (Table) 09/27/17 13:05 Acid Fast Bacilli Culture - Preliminary Lung - Left Lower Lobe 09/27/17 13:05 Fungal Culture - Preliminary Lung - Left Lower Lobe 09/27/17 13:05 Bronchial Washings Culture - Preliminary Bronchial Washings - Left 09/24/17 15:11 Blood Culture - Preliminary Blood No Growth after 72 hours - Imaging and Cardiology Chest x-ray: report reviewed, image reviewed Assessment and Plan (1) Squamous cell lung cancer Current Visit: No Status: Resolved Code(s): C34.90 - MALIGNANT NEOPLASM OF UNSP PART OF UNSP BRONCHUS OR LUNG SNOMED Code(s): 542153129 (2) Dehydration Current Visit: Yes Status: Acute Code(s): E86.0 - DEHYDRATION SNOMED Code( s): 85942409 (3) Gastroparesis due to DM Current Visit: No Status: Resolved Code(s): E11.43 - TYPE 2 DIABETES W DIABETIC AUTONOMIC (POLY)NEUROPATHY; K31.84 - GASTROPARESIS SNOMED Code(s): 312803159 (4) History of ITP Current Visit: No Status: Resolved Code(s): Z86.2 - PRSNL HISTORY OF DIS OF THE BLD/BLD-FORM ORG/IMMUN MECHNSM SNOMED Code(s): 314618847 (5) History of gastric ulcer Current Visit: No Status: Resolved Code(s): Z87.19 - PERSONAL HISTORY OF OTHER DISEASES OF THE DIGESTIVE SYSTEM SNOMED Code(s): 844218091 (6) Tobacco dependence in remission Current Visit: No Status: Resolved Code(s): F17.201 - NICOTINE DEPENDENCE, UNSPECIFIED, IN REMISSION SNOMED Code(s): 459138042 (7) Urinary retention with incomplete bladder emptying Current Visit: No Status: Resolved Code(s): R33.9 - RETENTION OF URINE, UNSPECIFIED SNOMED Code(s): 045239241 (8) Coronary artery disease Current Visit: Yes Status: Chronic Code(s): I25.10 - ATHSCL HEART DISEASE OF [place] CORONARY ARTERY W/O ANG PCTRS SNOMED Code(s): 99865119 (9) Diabetes mellitus Current Visit: Yes Status: Chronic Code(s): E11.9 - TYPE 2 DIABETES MELLITUS WITHOUT COMPLICATIONS SNOMED Code(s): 92422048 (10) History of heart artery stent Current Visit: Yes Status: Chronic Code(s): Z95.5 - PRESENCE OF CORONARY ANGIOPLASTY IMPLANT AND GRAFT SNOMED Code(s): 733166932 (11) Hypothyroid Current Visit: Yes Status: Chronic Code(s): E03.9 - HYPOTHYROIDISM, UNSPECIFIED SNOMED Code(s): 29062316 (12) Status post lobectomy of lung Current Visit: Yes Status: Chronic Code(s): Z90.2 - ACQUIRED ABSENCE OF LUNG [PART OF] SNOMED Code(s): 693356717 Plan: 1. Encourage increased use of her incentive spirometry, including increasing her goal. Encourage effective coughing. 2. Encourage continued smoking cessation. 3. Pain control per order regimen. 4. Increase activity, ambulate in hallway minimum 4 times daily. Patient should remain out of bed all day and be up in the chair for all meals. 5. Will monitor daily x-rays. 6. Bronchodilators, inhaled steroids per Dr. Lan. 7. Medical management of other comorbidities per primary care service. 8. Continue Levaquin to complete a seven-day course. Today is day 7, patient does not need to be discharged on antibiotics. 9. GI/DVT prophylaxis. Patient should wear SCDs when not ambulatory, however she is refusing. 10. Patient will need follow-up with Dr. Jules upon discharge, appointment already made for 10/04/2017@12:45 PM with patient to obtain chest x-ray prior to appointment, Rx for x-ray given to patient last week. 11. Will continue to monitor and make further recommendations as necessary. May be discharged to home from our standpoint when okay with other services. Time with Patient: Greater than 30
[2017-09-28] MEDS: INSULIN ASPART 100 UNIT/ML 1 ML 10 ML VIAL SQ SCH ×4 (08:00→12:31)
[2017-09-28] MEDS: INSULIN DETEMIR 100 UNIT/ML 10 ML VIAL SQ SCH (08:00)
[2017-09-28] MEDS: ATORVASTATIN 80 MG TAB PO SCH (08:01)
[2017-09-28] MEDS: ENOXAPARIN 40 MG/0.4 ML SYRINGE SQ SCH (08:01)
[2017-09-28] MEDS: TROSPIUM CHLORIDE 20 MG TABLET PO SCH (08:01)
[2017-09-28] MEDS: LISINOPRIL 5 MG TAB PO SCH (08:01)
[2017-09-28] MEDS: METOCLOPRAMIDE 10 MG TAB PO SCH (08:01)
[2017-09-28] MEDS: ASPIRIN 81 MG PO SCH (08:02)
[2017-09-28] MEDS: CLOPIDOGREL 75 MG TAB PO SCH (08:02)
[2017-09-28] MEDS: LEVOFLOXACIN 500 MG TAB PO SCH (08:02)
[2017-09-28] MEDS: METOPROLOL TARTRATE 25 MG TAB PO SCH (08:02)
[2017-09-28] MEDS: TAMSULOSIN 0.4 MG CAP.ER.24H PO SCH ×2 (08:02→08:04)
[2017-09-28 08:14] LABS: Anion Gap 12 mmol/L; Carbon Dioxide 24 mmol/L (22-30); Chloride 102 mmol/L (98-107); Glucose 112 mg/dL (74-99); Potassium 4.7 mmol/L (3.5-5.1); Sodium 138 mmol/L (137-145)
[2017-09-28 08:15] LABS: Blood Urea Nitrogen 14 mg/dL (7-17)
[2017-09-28] MEDS: BUDESONIDE 1 MG/2 ML NEBU INHALATION SCH (08:39)
[2017-09-28] MEDS: FORMOTEROL FUMARATE 20 MCG/2 ML NEBU INHALATION SCH (08:39)
[2017-09-28] MEDS: IPRATROPIUM-ALBUTEROL 3 ML NEB INHALATION SCH ×2 (08:39→10:53)
[2017-09-28 11:07] VITALS: PULSE 80
--- NOTE | 2017-09-28 11:43 | P.PN ---
Subjective Progress Note Date: 09/28/17 Principal diagnosis: Pneumonia Progress note dated 09/28/2017 This is a 67-year-old female who is again seen today on September 28. She had bronchoscopy yesterday. We also did brushes washes and endobronchial biopsies of that left lower lobe. The bronchial mucosa was very macerated erythematous and friable. Other some secretions noted. A repeat chest x-ray today shows much in significant improvement in the opacification of the left lung. Anyway, the results of the bronchoscopy are currently pending. She's feeling much better and would like to be discharged home. Objective - Vital Signs Vital signs: Vital Signs Temp 97.4 F L 09/28/17 06:00 Pulse 80 09/28/17 11:06 Resp 20 09/28/17 06:00 BP 96/53 09/28/17 06:00 Pulse Ox 95 09/28/17 06:00 Intake & Output 09/27/17 09/28/17 09/28/17 18:59 06:59 18:59 Intake Total 100 500 200 Balance 100 500 200 Weight 53.524 kg Intake: IV 100 Oral 0 500 200 Other: Voiding Method Bedside Commode # Voids 1 2 # Bowel Movements 0 - Exam No acute distress, oriented 3. HEENT examination is grossly unremarkable. Mucous membranes are moist. No oral lesions. Teeth are in poor shape. Neck supple. Full range of motion. No adenopathy thyromegaly or neck vein distention. Cardiovascular examination reveals regular rhythm rate. S1-S2 normal. No S3 or S4. No discernible murmur noted. Lungs reveal a few scattered rhonchi. Most of the rhonchi are noted in the left lung. No wheezes. Diminished breath sounds on the left side. No crackles. Abdomen soft bowel sounds are heard. No masses or tenderness. Extremities are intact. No cyanosis clubbing or edema. Skin is without rash or lesion. Neurologic examination is brief but nonfocal. - Labs CBC & Chem 7: 09/26/17 08:33 09/28/17 07:11 Labs: Abnormal Lab Results - Last 24 Hours (Table) 09/27/17 09/27/17 09/27/17 Range/Units 11:57 16:49 20:47 Glucose (74-99) mg/dL POC Glucose (mg/dL) 155 H 166 H 339 H (75-99) mg/dL 09/27/17 09/28/17 09/28/17 Range/Units 20:49 07:07 07:11 Glucose 112 H (74-99) mg/dL POC Glucose (mg/dL) 365 H 136 H (75-99) mg/dL Microbiology - Last 24 Hours (Table) 09/27/17 13:05 Gram Stain - Preliminary Bronchial Washings - Left Bronchial Washings Culture - Preliminary 09/27/17 13:05 Acid Fast Bacilli Culture - Preliminary Lung - Left Lower Lobe 09/27/17 13:05 Fungal Culture - Preliminary Lung - Left Lower Lobe 09/24/17 15:11 Blood Culture - Preliminary Blood No Growth after 72 hours Assessment and Plan Assessment: Assessment Status post recent robotic-assisted thoracoscopic left upper lobectomy for 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 I don't think the prednisone is really helping very much. The patient on breathing treatments. We'll put the patient on Pulmicort and Perforomist. The patient will may be need another bronchoscopy prior to discharge. We will do this before or Sunday. Additional recommendations and suggestions are forthcoming. Prognosis is guarded. She doesn't really need to take deep breaths coughing clearing secretions. We also recommend incentive spirometer every hour while awake. Plan dated 09/28/2017 The patient seems be doing much better after her bronchoscopy. She feels much better. Her chest x-ray is improved. She did have washes brushes and endobronchial biopsies of the left lower lobe. Both specimens are currently pending. We'll see her in the office next week. From our perspective she could be discharged home. Time with Patient: Less than 30
[2017-09-28 12:12] LABS: Glucose,Whole Blood 106 mg/dL (75-99)
--- NOTE | 2017-09-29 06:55 | DS ---
DISCHARGE SUMMARY DATE OF ADMISSION: 09/24/2017. DATE OF DISCHARGE: September 28, 2017. FINAL DIAGNOSES: 1. Acute chronic obstructive pulmonary disease exacerbation in an ex-smoker. 2. Recent left upper lobe lung lobectomy with pathology showing squamous cell carcinoma, with lymph nodes being negative. 3. Severe nausea, vomiting, side effect of medications including naproxen and Sherwood. 4. Pulmonary congestion from increased secretions. 5. Responded to bronchoscopy with lavage. 6. Chronic fibromyalgia. 7. Gastroesophageal reflux disease. 8. Coronary artery disease with prior history of stent. 9. Inflammatory bowel disease. 10.Herniated disc L3-L4, chronic. 11.Restless legs syndrome. 12.Primary osteoarthritis multiple joints bilateral. 13.Gastroparesis. 14.Rectal wall thickening. Patient for outpatient colonoscopy. HOSPITAL COURSE: This pleasant 67-year-old patient was just discharged from the hospital 09/22/[address] Jules. Patient did undergo a left upper lobe lobectomy on September 06, 2017 and clearance of a mucus plug. The patient did come back showing squamous cell carcinoma. The patient presented weak, tired, nausea, tired and run down. The patient's Sherwood and NSAID was discontinued that did help with nausea. The patient was hydrated. The patient's last admission also treated with IV Zosyn. Also found to have gastroparesis and some rectal wall thickening. The patient is due for outpatient colonoscopy. This admission did undergo bronchoscopy by Dr. Lan. Secretions were removed. By the time of discharge, patient tolerating a diet, doing better, walking up and about. EXAM: Lungs decreased breath sounds. CARDIOVASCULAR: First and second sounds normal. Patient is ambulatory. CONSULTATIONS: Dr. Khanna from Pulmonary; Dr. Jules from Cardiothoracic surgery. DISCHARGE MEDICATIONS: 1. Xanax 0.25 p.o. b.i.d. p.r.n. 2. Levemir 30 units subcu daily. 3. VESIcare 10 mg p.o. q.h.s. 4. Requip 0.25 mg q.h.s. 5. Sherwood 7.5 one tablet q.4 p.r.n. 6. Protonix 40 mg p.o. daily p.r.n. 7. Aspirin 81 mg p.o. daily. 8. Lopressor 25 mg p.o. b.i.d. 9. Nitrostat 0.4 sublingual q.5 p.r.n. 10.Plavix 75 mg p.o. daily. 11.Lipitor 80 mg p.o. daily. 12.Symbicort 160/4.5, 2 puffs b.i.d. 13.Combivent 1 puff q.i.d. 14.Prinivil 5 mg b.i.d. 15.Flomax 0.4 mg p.o. daily. 16.NovoLog 6 units subcu a.c. t.i.d. 17.Melatonin 3 mg p.o. q.h.s. PLAN: Today care was discussed with the patient and daughter in detail. The patient is to maintain previous appointments from the last admission. Questions were answered. Discussion and discharge planning more than 35 minutes. The patient's discontinued medications include Levaquin, prednisone, naproxen, Imodium. FOLLOWUP: Follow up with Dr. Brock on October 01, 2017; Dr. Lan on October 05, 2017, Dr. Jules on October 04, 2017. Copy to Dr. Brock. ANDREW / BRITTONN: [id number] /
== END 2017-09-28 14:40 | disposition home or self-care (01) | DRG 988 ==
LOC: EC 14:20 → 4MS4W 16:19
PROVIDERS: ADMIT Hospitalist; ATTEND Hospitalist
PROC: 0B9J8ZX Drainage of Left Lower Lung Lobe, Via Natural or Artificial Opening Endoscopic, Diagnostic (ICD-10-PCS; principal; 2017-09-27 12:15)
PROC: 0BDB8ZX Extraction of Left Lower Lobe Bronchus, Via Natural or Artificial Opening Endoscopic, Diagnostic (ICD-10-PCS; principal; 2017-09-27 12:15)
DX: R11.0 Nausea (principal); J44.1 Chronic obstructive pulmonary disease with (acute) exacerbation; J93.9 Pneumothorax, unspecified; J98.19 Other pulmonary collapse; T39.315A Adverse effect of propionic acid derivatives, initial encounter; T40.2X5A Adverse effect of other opioids, initial encounter; E03.9 Hypothyroidism, unspecified; E11.42 Type 2 diabetes mellitus with diabetic polyneuropathy; E11.43 Type 2 diabetes mellitus with diabetic autonomic (poly)neuropathy; E86.0 Dehydration; F17.201 Nicotine dependence, unspecified, in remission; G25.81 Restless legs syndrome; I25.10 Atherosclerotic heart disease of native coronary artery without angina pectoris; I25.2 Old myocardial infarction; K21.9 Gastro-esophageal reflux disease without esophagitis; K31.84 Gastroparesis; K44.9 Diaphragmatic hernia without obstruction or gangrene; K58.9 Irritable bowel syndrome, unspecified; K52.9 Noninfective gastroenteritis and colitis, unspecified; M15.9 Polyosteoarthritis, unspecified; M51.26 Other intervertebral disc displacement, lumbar region; M79.7 Fibromyalgia; R33.9 Retention of urine, unspecified; R62.7 Adult failure to thrive; Z79.02 Long term (current) use of antithrombotics/antiplatelets; Z79.4 Long term (current) use of insulin; Z79.51 Long term (current) use of inhaled steroids; Z79.52 Long term (current) use of systemic steroids; Z79.82 Long term (current) use of aspirin; Z79.899 Other long term (current) drug therapy; Z80.3 Family history of malignant neoplasm of breast; Z83.3 Family history of diabetes mellitus; Z85.118 Personal history of other malignant neoplasm of bronchus and lung; Z87.11 Personal history of peptic ulcer disease; Z90.2 Acquired absence of lung [part of]; Z90.710 Acquired absence of both cervix and uterus; Z95.5 Presence of coronary angioplasty implant and graft; Z90.49 Acquired absence of other specified parts of digestive tract; Z86.2 Personal history of diseases of the blood and blood-forming organs and certain disorders involving the immune mechanism
CPT/HCPCS: 31623; 31624; 31625; 36415; 71045; 71046; 80048; 80053; 81003; 82150; 82550; 82553; 83036; 83605; 83690; 83735; 84484; 85025; 87040; 87070; 87102; 87116; 87205; 87206; 87252; 87496; 87498; 87502; 87529; 87634; 87798; 88104; 88108; 88305; 89050; 93005; 94640; 94760; 96360; 96361; 99285

== ENCOUNTER → 2017-10-03 | Outpatient (CLI) | payer MEDICARE, OTHER ==
--- NOTE | 2017-10-03 12:30 | XR ---
EXAMINATION TYPE: XR chest 2V DATE OF EXAM: 10/03/2017 COMPARISON: Prior chest 09/28/2017 HISTORY: Status post left upper lobectomy, abnormal chest x-ray TECHNIQUE: Frontal and lateral views of the chest are obtained. FINDINGS: There is some improvement in aeration as compared to previous exam, persistent abnormal in creased density noted in the left hemithorax. No pneumothorax. No other significant interval change. IMPRESSION: Improved aeration, postop changes.
== END | disposition home or self-care (01) ==
LOC: RADXRMAIN 12:10
PROVIDERS: ATTEND Nurse Practitioner Acute Care
DX: Z09 Encounter for follow-up examination after completed treatment for conditions other than malignant neoplasm (principal); Z90.2 Acquired absence of lung [part of]
CPT/HCPCS: 71046

== ENCOUNTER → 2018-04-29 | Outpatient (CLI) | payer MEDICARE, OTHER ==
--- NOTE | 2018-04-29 13:52 | MM ---
Reason for exam: follow-up at short interval from prior study. Last mammogram was performed 10 months ago. History: Patient is postmenopausal. Family history of premenopausal breast cancer in maternal cousin at age 40 and breast cancer in mother at age 60. Benign US right core biopsy of the right breast, October 31, 2006. Benign ultrasound-guided core biopsy of the left breast, June 24, 2003. Benign ultrasound-guided core biopsy of the right breast, April 11, 2002. Took estrogen for 12 years beginning at age 43. Physical Findings: Nurse did not find any significant physical abnormalities on exam. MG 3D Diag Mammo W/Cad RT CC and MLO view(s) were taken of the right breast. Prior study comparison: July 05, 2017, bilateral MG diagnostic mammo w CAD BETH. January 31, 2016, bilateral MG 3d screening mammo w/cad. The breast tissue is heterogeneously dense. This may lower the sensitivity of mammography. Previous mammotome biopsy in the right breast. There is chronic nodularity in the right breast, clip near it. These results were verbally communicated with the patient and result sheet given to the patient on 04/29/18. ASSESSMENT: Benign, BI-RAD 2 RECOMMENDATION: Routine screening mammogram of both breasts in 3 months. Back on schedule.
== END | disposition home or self-care (01) ==
LOC: RADMAMWWP 12:41
PROVIDERS: ATTEND Surgery
DX: N60.09 Solitary cyst of unspecified breast (principal)
CPT/HCPCS: 77065; G0279; 77061

== ENCOUNTER → 2018-05-09 | Outpatient (CLI) | payer MEDICARE, OTHER ==
[2018-05-09 13:20] VITALS: BP 103/51; PULSE 89; RESP 18; TEMP 96.2; BMI 21.0
--- NOTE | 2018-05-09 13:56 | P.PN ---
Subjective Progress Note Date: 05/09/18 Principal diagnosis: Status post right breast biopsy July 2017 Neeru is a 67-year-old white female status post excisional biopsy of the right breast cystic lesion. Pathology was benign. Since then she has undergone a left lung upper lobectomy for stage I lung cancer. She did not have to have any chemotherapy. She did not have to have any radiation therapy. Everything is without complaint now with respect to her breast. She has no problems related to her lung surgery either. The patient is status post right breast mammogram on 04/29/2018. This is felt to be benign BIRADS 2. Routine screening mammogram of both breasts in 3 months was recommended. Objective - Vital Signs Vital signs: Vital Signs Temp 96.2 F L 05/09/18 13:12 Pulse 89 05/09/18 13:12 Resp 18 05/09/18 13:12 BP 103/51 05/09/18 13:12 Pulse Ox 95 05/09/18 13:12 Intake & Output 05/08/18 05/09/18 05/09/18 18:59 06:59 18:59 Weight 52.163 kg - Exam BMI 21 - Constitutional General appearance: Present: average body habitus - EENT Eyes: Present: EOMI ENT: Present: hearing grossly normal - Neck Neck: Present: normal ROM - Respiratory Details: Breast sounds clear right lung Decreased breath sounds left lung - Cardiovascular Rhythm: regular Heart sounds: normal: S1, S2 - Gastrointestinal Gastrointestinal Comment(s): well healed scar abdomen General gastrointestinal: Present: soft - Integumentary Integumentary: Present: normal turgor - Psychiatric Psychiatric: Present: A&O x's 3, appropriate affect, intact judgment & insight - Additional findings Additional findings: Breast examination: Right breast: Multi-positional exam no dominant masses or nodules of concern Right axilla: No adenopathy of concern Left breast: Multi-positional exam mild increased fibrocystic change upper outer quadrant but no discrete dominant masses or nodules of concern Left axilla: No adenopathy of concern Assessment and Plan Assessment: Impression: 1. Status post resection of cystic lesion right breast area 2. Recent right breast mammogram WNL 3. Status post left lung resection 4. Patient has no evidence of cancer at this time 5. Patient smoker Plan: 1. Bilateral mammogram in 4 months with physician exam at that time 2. Medical management of medical conditions 3. Patient encouraged to stop smoking CC: DR. Brock ([place])
== END ==
LOC: WWCWWP 12:48
PROVIDERS: ATTEND Surgery
DX: Z53.9 Procedure and treatment not carried out, unspecified reason (principal)

== ENCOUNTER 2018-08-19 01:31 | Inpatient (IN) | payer MEDICARE, OTHER ==
[2018-08-19] MEDS ORDERED: SODIUM CHLORIDE 0.9% 1,000 ML IV STA ×2 (02:06→02:24)
[2018-08-19 02:20] LABS: Appearance,Urine Cloudy (Clear); Bacteria,Urine Many /hpf; Bilirubin,Urine Negative (Negative); Blood,Urine Trace (Negative); Color,Urine Yellow; Glucose,Urine (UA) 4+ (Negative); Ketones,Urine 1+ (Negative); Leukocyte Esterase,Urine Large (Negative); Mucus,Urine Rare /hpf; Nitrite,Urine Positive (Negative); PH, Urine 5.5 (5.0-8.0); Protein,Urine 1+ (Negative); RBC,Urine 4 /hpf (0-5); Specific Gravity,Urine 1.019 (1.001-1.035); Squamous Epithelial Cell,Urine 1 /hpf (0-4); Urobilinogen,Urine <2.0 mg/dL (<2.0); WBC,Urine >182 /hpf (0-5)
[2018-08-19 02:28] LABS: ALT 32 U/L (9-52); AST 26 U/L (14-36); Alkaline Phosphatase 137 U/L (38-126); Anion Gap 12 mmol/L; Blood Urea Nitrogen 13 mg/dL (7-17); Calcium 9.7 mg/dL (8.4-10.2); Carbon Dioxide 20 mmol/L (22-30); Chloride 103 mmol/L (98-107); Glucose 254 mg/dL (74-99); Lipase 69 U/L (23-300); Sodium 135 mmol/L (137-145); Total Bilirubin 0.7 mg/dL (0.2-1.3); Total Protein 6.9 g/dL (6.3-8.2)
[2018-08-19 02:29] LABS: Basophils % (A) 0 %; Eosinophils # (A) 0.2 k/uL (0-0.7); Eosinophils % (A) 1 %; HCT 44.7 % (34.0-46.0); HGB 14.5 gm/dL (11.4-16.0); Lymphocytes # (A) 1.6 k/uL (1.0-4.8); Lymphocytes % (A) 9 %; MCH 28.2 pg (25.0-35.0); MCHC 32.4 g/dL (31.0-37.0); Mean Platelet Volume 7.9; Monocytes # (A) 0.8 k/uL (0-1.0); Monocytes % (A) 4 %; Neutrophils % (A) 85 %; Platelet Count 291 k/uL (150-450); RBC 5.14 m/uL (3.80-5.40); RDW 14.8 % (11.5-15.5); WBC 17.7 k/uL (3.8-10.6)
[2018-08-19 02:30] LABS: Potassium 4.7 mmol/L (3.5-5.1)
[2018-08-19] MEDS ORDERED: MORPHINE SULFATE 4 MG/ML SYRINGE IVP STA (03:08)
--- NOTE | 2018-08-19 03:50 | ED ---
General Adult HPI - General Chief complaint: Abdominal Pain Stated complaint: Abd Pain Time Seen by Provider: 08/19/18 01:51 Source: patient, RN notes reviewed, old records reviewed Mode of arrival: ambulatory Limitations: no limitations - History of Present Illness Initial comments: 67-year-old female patient past medical history of myocardial infarction, small cell lung cancer, status post partial lobectomy, perforated bowel status post resection, type 2 diabetes presents to ED with 2 days of soup pubic abdominal pain. Patient currently on antibiotics for a urinary tract infection, however she does not know what antibiotic. Patient reports some nausea and diarrhea. Patient states that yesterday she had a transient episode of chest pain which is relieved by nitro. Patient denies any current chest pain or shortness of breath. Patient denies any other complaints at this time. Systemic: Pt denies fatigue, myalgia, fever/chills, rash. Pt denies weakness, night sweats, weight loss. Neuro: Pt denies headache, visual disturbances, syncope or pre-syncope. HEENT: Pt denies ocular discharge or irritation, otalgia, rhinorrhea, pharyngitis or notable lymphadenopathy. Cardiopulmonary: Pt denies chest pain, SOB, heart palpitations, dyspnea on exertion. Abdominal/GI: Pt denies vomitting. : Pt denies dysuria, burning w/ urination, frequency/urgency. Denies new onset urinary or bowel incontinence. MSK: Pt denies myalgia, loss of strength or function in extremities. Neuro: Pt denies new onset weakness, paresthesias. - Related Data Home Medications Medication Instructions Recorded Confirmed ALPRAZolam 0.25 mg PO BID PRN 11/03/15 05/09/18 Insulin Detemir (Levemir) [Levemir] 30 unit SQ DAILY@1200 11/09/15 05/09/18 Solifenacin Succinate [Vesicare] 10 mg PO HS 04/12/16 05/09/18 rOPINIRole HCL [Requip] 0.25 mg PO HS 04/12/16 05/09/18 HYDROcodone/APAP 7.5-325MG [[place] 1 tab PO Q4H PRN 01/14/17 05/09/18 7.5-325] Pantoprazole [Protonix] 40 mg PO QAM PRN 01/14/17 05/09/18 Clopidogrel Bisulfate [Plavix] 75 mg PO DAILY 06/26/17 05/09/18 Atorvastatin [Lipitor] 80 mg PO DAILY 08/31/17 05/09/18 Budesonide-Formot 160-4.5 Mcg 2 puff INHALATION RT-BID 08/31/17 05/09/18 [Symbicort 160-4.5 Mcg Inhaler] Ipratropium/Albuterol Sulfate 1 puff INHALATION RT-QID 08/31/17 05/09/18 [Combivent Respimat Inhaler] Lisinopril [Prinivil] 5 mg PO BID 08/31/17 05/09/18 ALPRAZolam [Xanax] 0.25 mg PO HS 05/09/18 05/09/18 Hydrocodone/Acetaminophen 1 tab PO Q4HR 05/09/18 05/09/18 [Hydrocodone-Acetamin 2.5-325] Loperamide [Imodium] 2 mg PO QID 05/09/18 05/09/18 Previous Rx's Medication Instructions Recorded Aspirin 81 mg PO DAILY chew 01/17/17 Metoprolol Tartrate [Lopressor] 25 mg PO BID #60 tab 01/17/17 Nitroglycerin Sl Tabs [Nitrostat] 0.4 mg SUBLINGUAL Q5M PRN #21 tab 01/17/17 Tamsulosin [Flomax] 0.4 mg PO DAILY #30 cap.er.24h 09/22/17 INSULIN ASPART (NovoLOG) [NovoLOG 6 unit SQ AC-TID vial 09/28/17 (formulary)] Insulin Aspart [NovoLOG Flexpen] 6 units SQ PC-TID #0 09/28/17 Melatonin 3 mg PO HS tablet 09/28/17 Allergies Allergy/AdvReac Type Severity Reaction Status Date / Time No Known Allergies Allergy Verified 08/19/18 01:45 Review of Systems ROS Statement: Those systems with pertinent positive or pertinent negative responses have been documented in the HPI. ROS Other: All systems not noted in ROS Statement are negative. Past Medical History Past Medical History: Coronary Artery Disease (CAD), Diabetes Mellitus, Fibromyalgia, GERD/Reflux, Myocardial Infarction ([place]) Additional Past Medical History / Comment(s): Idiopathic thrombocytopenia purpura, IBS, diverticulitis, hiatal hernia, 2 herniated discs-L3/L4, Restless Leg Syndrome, gastritis, superficial gastric ulcers. nodule on lt lung-Cancer Stg 1 Last Myocardial Infarction Date:: 01/2017 History of Any Multi-Drug Resistant Organisms: None Reported Past Surgical History: Adenoidectomy, Bladder Surgery, Bowel Resection, Cholecystectomy, Heart Catheterization With Stent, Hernia Repair, Hysterectomy, Tonsillectomy Additional Past Surgical History / Comment(s): BLADDER SUSPENSION x 2, breast biopsy x3, bowel resection due to rupture. left upper lobe of lung removed per [place] Past Anesthesia/Blood Transfusion Reactions: No Reported Reaction Additional Past Anesthesia/Blood Transfusion Reaction / Comment(s): Pt received blood in 2005 due to ITP without reaction. Date of Last Stent Placement:: 01/2017 Past Psychological History: Anxiety Smoking Status: Current every day smoker Past Alcohol Use History: None Reported Past Drug Use History: None Reported - Past Family History Mother Family Medical History: Cancer, Diabetes Mellitus Additional Family Medical History / Comment(s): Father had a defibrillator. He of heart dx in his 80's Father Family Medical History: Diabetes Mellitus Additional Family Medical History / Comment(s): HEART DISEASE General Exam - General Exam Comments Initial Comments: Constitutional: NAD, AOX3, Pt has pleasant affect. HEENT: NC/AT, trachea midline, neck supple, no lymphadenopathy. Posterior pharynx non erythematous, without exudates. External ears appear normal, without discharge. Mucous membranes moist. Eyes PERRLA, EOM intact. There is no scleral icterus. No pallor noted. Cardiopulmonary: RRR, no murmurs, rubs or gallops, no JVD noted. Lungs CTAB in anterior and posterior nieves. No peripheral edema. Abdominal exam: Abdomen soft and non-distended. Abdomen moderately tender to palpation in the suprapubic region. No other areas of abdominal tenderness. No guarding or rigidity.. Bowel sounds active in LLQ. No hepatosplenomegaly. No ecchymosis Neuro: CN II-XII grossly intact. No nuchal rigidity. MSK: No posterior calf tenderness bilaterally, homans sign negative bilaterally. Posterior tibialis and radial pulse +2 bilaterally. Sensation intact in upper and lower extremities. Full active ROM in upper and lower extremities, 5/5 stregnth. Limitations: no limitations Course Vital Signs 08/19/18 08/19/18 01:41 03:30 Temperature 98.7 F Pulse Rate 109 H 104 H Respiratory 20 18 Rate Blood Pressure 96/59 109/57 O2 Sat by Pulse 96 98 Oximetry Medical Decision Making - Medical Decision Making 67-year-old female patient past medical history of myocardial infarction, small cell lung cancer, status post partial lobectomy, perforated bowel status post resection, type 2 diabetes presents to ED with 2 days of soup pubic abdominal pain. Patient currently on antibiotics for a urinary tract infection, however she does not know what antibiotic. Patient reports some nausea and diarrhea. Patient states that yesterday she had a transient episode of chest pain which is relieved by nitro. Patient denies any current chest pain or shortness of breat h. Patient denies any other complaints at this time. Patient vital signs initially displayed mild tachycardia, mild hypotension. Within acceptable limits after IV fluid administration. Physical exam displayed abdomen tender to palpation in suprapubic region. CMP displayed hyperglycemia of 254. UA displayed urinary tract infection. CT abdomen and pelvis displayed thickening of the colon suggestive colitis mostly in the right hemicolon. Diverticulosis. Left adrenal mass measuring 2.2 cm. Patient will be admitted for IV antibiotics for failed outpatient treatment and sepsis. Patient appears well-hydrated on exam and has clinically mild sepsis. Will also administer 1 L normal saline. Case discussed with Dr. Mills. - Lab Data Result diagrams: 08/19/18 02:05 08/19/18 02:05 Lab Results 08/19/18 08/19/18 08/19/18 Range/Units 02:05 02:05 02:05 WBC 17.7 H (3.8-10.6) k/uL RBC 5.14 (3.80-5.40) m/uL Hgb 14.5 (11.4-16.0) gm/dL Hct 44.7 (34.0-46.0) % MCV 87.0 (80.0-100.0) fL MCH 28.2 (25.0-35.0) pg MCHC 32.4 (31.0-37.0) g/dL RDW 14.8 (11.5-15.5) % Plt Count 291 (150-450) k/uL Neutrophils % 85 % Lymphocytes % 9 % Monocytes % 4 % Eosinophils % 1 % Basophils % 0 % Neutrophils # 15.0 H (1.3-7.7) k/uL Lymphocytes # 1.6 (1.0-4.8) k/uL Monocytes # 0.8 (0-1.0) k/uL Eosinophils # 0.2 (0-0.7) k/uL Basophils # 0.0 (0-0.2) k/uL Sodium 135 L (137-145) mmol/L Potassium 4.7 (3.5-5.1) mmol/L Chloride 103 (98-107) mmol/L Carbon Dioxide 20 L (22-30) mmol/L Anion Gap 12 mmol/L BUN 13 (7-17) mg/dL Creatinine 0.51 L (0.52-1.04) mg/dL Est GFR (CKD-EPI)AfAm >90 (>60 ml/min/1.73 sqM) Est GFR (CKD-EPI)NonAf >90 (>60 ml/min/1.73 sqM) Glucose 254 H (74-99) mg/dL Plasma Lactic Acid Jeremy (0.7-2.0) mmol/L Calcium 9.7 (8.4-10.2) mg/dL Total Bilirubin 0.7 (0.2-1.3) mg/dL AST 26 (14-36) U/L ALT 32 (9-52) U/L Alkaline Phosphatase 137 H (38-126) U/L Troponin I (0.000-0.034) ng/mL Total Protein 6.9 (6.3-8.2) g/dL Albumin 4.0 (3.5-5.0) g/dL Lipase 69 (23-300) U/L Urine Color Yellow Urine Appearance Cloudy H (Clear) Urine pH 5.5 (5.0-8.0) Ur Specific [place] 1.019 (1.001-1.035) Urine Protein 1+ H (Negative) Urine Glucose (UA) 4+ H (Negative) Urine Ketones 1+ H (Negative) Urine Blood Trace H (Negative) Urine Nitrite Positive H (Negative) Urine Bilirubin Negative (Negative) Urine Urobilinogen <2.0 (<2.0) mg/dL Ur Leukocyte Esterase Large H (Negative) Urine RBC 4 (0-5) /hpf Urine WBC >182 H (0-5) /hpf Urine WBC Clumps Moderate H (None) /hpf Ur Squamous Epith Cells 1 (0-4) /hpf Urine Bacteria Many H (None) /hpf Urine Mucus Rare H (None) /hpf 08/19/18 08/19/18 Range/Units 02:05 02:05 WBC (3.8-10.6) k/uL RBC (3.80-5.40) m/uL Hgb (11.4-16.0) gm/dL Hct (34.0-46.0) % MCV (80.0-100.0) fL MCH (25.0-35.0) pg MCHC (31.0-37.0) g/dL RDW (11.5-15.5) % Plt Count (150-450) k/uL Neutrophils % % Lymphocytes % % Monocytes % % Eosinophils % % Basophils % % Neutrophils # (1.3-7.7) k/uL Lymphocytes # (1.0-4.8) k/uL Monocytes # (0-1.0) k/uL Eosinophils # (0-0.7) k/uL Basophils # (0-0.2) k/uL Sodium (137-145) mmol/L Potassium (3.5-5.1) mmol/L Chloride (98-107) mmol/L Carbon Dioxide (22-30) mmol/L Anion Gap mmol/L BUN (7-17) mg/dL Creatinine (0.52-1.04) mg/dL Est GFR (CKD-EPI)AfAm (>60 ml/min/1.73 sqM) Est GFR (CKD-EPI)NonAf (>60 ml/min/1.73 sqM) Glucose (74-99) mg/dL Plasma Lactic Acid Jeremy 1.6 (0.7-2.0) mmol/L Calcium (8.4-10.2) mg/dL Total Bilirubin (0.2-1.3) mg/dL AST (14-36) U/L ALT (9-52) U/L Alkaline Phosphatase (38-126) U/L Troponin I <0.012 (0.000-0.034) ng/mL Total Protein (6.3-8.2) g/dL Albumin (3.5-5.0) g/dL Lipase (23-300) U/L Urine Color Urine Appearance (Clear) Urine pH (5.0-8.0) Ur Specific [place] (1.001-1.035) Urine Protein (Negative) Urine Glucose (UA) (Negative) Urine Ketones (Negative) Urine Blood (Negative) Urine Nitrite (Negative) Urine Bilirubin (Negative) Urine Urobilinogen (<2.0) mg/dL Ur Leukocyte Esterase (Negative) Urine RBC (0-5) /hpf Urine WBC (0-5) /hpf Urine WBC Clumps (None) /hpf Ur Squamous Epith Cells (0-4) /hpf Urine Bacteria (None) /hpf Urine Mucus (None) /hpf - EKG Data -: EKG Interpreted by Me EKG Comments: Ventricular rate 110, when necessary for 142, curiously 6, QT/QTC 354/479. Sinus tach with frequent PVCs. Biatrial enlargement. Pulmonary disease pattern. Disposition Clinical Impression: UTI (urinary tract infection), Sepsis Disposition: ADMITTED IP TO THIS HOSP Condition: Serious Is patient prescribed a controlled substance at d/c from ED?: No Referrals: Nick Brock MD [Primary Care Provider] - 1-2 days
--- NOTE | 2018-08-19 03:54 | CT ---
EXAM: CT Abdomen and Pelvis With Intravenous Contrast CLINICAL HISTORY: ITS.REASON CT Reason: Pain TECHNIQUE: Axial computed tomography images of the abdomen and pelvis with intravenous contrast. CTDI is 13.1 mGy and DLP is 632 mGy-cm. This CT exam was performed using one or more of the following dose reduction techniques: automated exposure control, adjustment of the mA and/or kV according to patient size, and/or use of iterative reconstruction technique. Coronal and sagittal reformatted images were created and reviewed. COMPARISON: CT Abdomen and Pelvis dated 09/12/17 FINDINGS: Lung bases: Unremarkable. No mass. No consolidation. Heart: Mitral annulus calcifications. ABDOMEN: Liver: Unremarkable. No mass. Gallbladder and bile ducts: Gallbladder is absent. Common bile duct measures up to 13.5 mm. Pancreas: Pancreatic duct measures up to 5 mm. Pancreatic head 4.8 mm hypodense lesion, stable since 09/12/17. Spleen: Unremarkable. No splenomegaly. Adrenals: 2 left adrenal masses are seen measuring 2.2 cm previously measuring 1.6 cm. Kidneys and ureters: Left renal 5.6 mm cyst. No hydronephrosis. Stomach and bowel: Thickening of the colon suggestive of colitis, more significant in the right hemicolon. Diverticulosis also seen. Evidence of previous sigmoid colon resection and anastomosis. No obstruction. PELVIS: Appendix: No findings to suggest acute appendicitis. Bladder: Unremarkable. No mass. Reproductive: Unremarkable as visualized. ABDOMEN and PELVIS: Intraperitoneal space: Unremarkable. No free air. No significant fluid collection. Bones/joints: Degenerative changes of the spine. Degenerative changes of the spine. No acute fracture. No dislocation. Soft tissues: Unremarkable. Vasculature: Extensive atherosclerosis. Mild stenosis of bilateral common iliac arteries. Moderate stenosis of the right external iliac artery. No abdominal aortic aneurysm. Lymph nodes: Unremarkable. No enlarged lymph nodes. IMPRESSION: 1. Thickening of the colon suggestive of colitis, more significant in the right hemicolon. 2. Diverticulosis also seen. Evidence of previous sigmoid colon resection and anastomosis. 3. 2 left adrenal masses are seen measuring 2.2 cm previously measuring 1.6 cm. Recommend biopsy or resection. Consider preoperative biochemical testing to exclude pheochromocytoma. 4. Extensive atherosclerosis. Mild stenosis of bilateral common iliac arteries. Moderate stenosis of the right external iliac artery. 5. Pancreatic duct measures up to 5 mm. Pancreatic head 4.8 mm hypodense lesion, stable since 09/12/17. No follow-up is necessary.
[2018-08-19] MEDS ORDERED: NALOXONE 0.4 MG/ML 1 ML VIAL IV PRN (04:08)
[2018-08-19] MEDS: SODIUM CHLORIDE 0.9% 1,000 ML IV SCH (05:00)
[2018-08-19] MEDS ORDERED: PANTOPRAZOLE 40 MG TABLET PO PRN (06:52)
[2018-08-19] MEDS ORDERED: ALPRAZolam 0.25 MG TAB PO PRN (06:52)
[2018-08-19 07:29] LABS: Glucose,Whole Blood 207 mg/dL (75-99)
[2018-08-19 08:55] VITALS: BMI 21.9
[2018-08-19] MEDS: INSULIN ASPART (NovoLOG) 100 UNIT/ML VIAL SQ SCH ×4 (08:58→21:42)
[2018-08-19] MEDS: MORPHINE SULFATE 4 MG/ML SYRINGE IV PRN ×3 (09:03→21:41)
[2018-08-19] MEDS: ASPIRIN 81 MG PO SCH (09:31)
[2018-08-19] MEDS: CLOPIDOGREL 75 MG TAB PO SCH (09:31)
[2018-08-19] MEDS: SYMBICORT 160-4.5 MCG INHALER INHALATION SCH ×2 (09:39→19:09)
[2018-08-19] MEDS: IPRATROPIUM-ALBUTEROL 3 ML NEB INHALATION SCH ×4 (09:39→19:09)
[2018-08-19] MEDS ORDERED: metroNIDAZOLE-NS PMX 500 MG in SALINE 1 100ML.BAG IVPB SCH (10:00)
--- NOTE | 2018-08-19 10:20 | P.HPIM ---
History of Present Illness H&P Date: 08/19/18 Chief Complaint: abdominal pain, diarrhea The patient is a 67-year-old female with a past medical history of type 2 diabetes with peripheral neuropathy and gastroparesis, COPD, coronary artery disease with stenting, squamous cell carcinoma status post left upper l obe lobectomy GERD fibromyalgia who presents to the ER with chief complaint of 2 days of lower abdominal suprapubic pain. The patient reports 10 out of 10 sharp suprapubic lower abdominal pain with associated nausea and vomiting starting yesterday, along with several episodes of watery diarrhea Subjective fevers chills. The patient denies any dysuria, she does report some frequency and polyuria attributed to her diabetes. The patient also reports nonproductive cough and chest congestion over the last couple days as well, she denies any difficulty breathing or shortness of air, she denies any chest pain or palpitations or lower extremity swelling. In the ER the patient had a comprehensive workup with remarkable labs of the WBC count of 17.7, serum sodium 135, serum bicarb 20 creatinine 0.5 on, blood sugar 254, urinalysis suggestive of a UTI nitrite negative leuk esterase positive with greater than 182 WBCs per high-powered field, CT abdomen and pelvis consistent with colitis in the right hemicolon, two left adrenal masses measuring 2.2 cm previously measuring 1.6, extensive arthrosclerosis and moderate stenosis of the right external iliac artery dilated pancreatic duct and pancreatic head lesion measuring 4.8 mm stable since 09/12/17. The patient was given 2 L of IV fluids in the ER and initiated on Rocephin. Review of Systems Pertinent positives per HPI all other review of systems otherwise negative Past Medical History Past Medical History: Coronary Artery Disease (CAD), Diabetes Mellitus, Fibromyalgia, GERD/Reflux, Myocardial Infarction ([place]) Additional Past Medical History / Comment(s): Idiopathic thrombocytopenia purpura, IBS, diverticulitis, hiatal hernia, 2 herniated discs-L3/L4, Restless Leg Syndrome, gastritis, superficial gastric ulcers. nodule on lt lung-Cancer Stg 1 Last Myocardial Infarction Date:: 01/2017 History of Any Multi-Drug Resistant Organisms: None Reported Past Surgical History: Adenoidectomy, Bladder Surgery, Bowel Resection, Cholecystectomy, Heart Catheterization With Stent, Hernia Repair, Hysterectomy, Tonsillectomy Additional Past Surgical History / Comment(s): BLADDER SUSPENSION x 2, breast biopsy x3, bowel resection due to rupture. left upper lobe of lung removed per [place] Past Anesthesia/Blood Transfusion Reactions: No Reported Reaction Additional Past Anesthesia/Blood Transfusion Reaction / Comment(s): Pt received blood in 2005 due to ITP without reaction. Date of Last Stent Placement:: 01/2017 Past Psychological History: Anxiety Additional Psychological History / Comment(s): . Smoking Status: Current some day smoker Past Alcohol Use History: None Reported Additional Past Alcohol Use History / Comment(s): STARTED SMOKING AT AGE 18- SMOKED 1PPD AND QUIT -2017 Past Drug Use History: None Reported - Past Family History Mother Family Medical History: Cancer, Diabetes Mellitus Additional Family Medical History / Comment(s): Father had a defibrillator. He of heart dx in his 80's Father Family Medical History: Diabetes Mellitus Additional Family Medical History / Comment(s): HEART DISEASE Medications and Allergies Home Medications Medication Instructions Recorded Confirmed Type ALPRAZolam 0.25 mg PO BID PRN 11/03/15 08/19/18 History Insulin Detemir (Levemir) [Levemir] 30 unit SQ BID 11/09/15 08/19/18 History Solifenacin Succinate [Vesicare] 10 mg PO HS 04/12/16 08/19/18 History rOPINIRole HCL [Requip] 0.25 mg PO HS 04/12/16 08/19/18 History Pantoprazole [Protonix] 40 mg PO QAM PRN 01/14/17 08/19/18 History Aspirin 81 mg PO DAILY chew 01/17/17 08/19/18 Rx Metoprolol Tartrate [Lopressor] 25 mg PO BID #60 tab 01/17/17 08/19/18 Rx Nitroglycerin Sl Tabs [Nitrostat] 0.4 mg SUBLINGUAL Q5M PRN #21 tab 01/17/17 08/19/18 Rx Clopidogrel Bisulfate [Plavix] 75 mg PO DAILY 06/26/17 08/19/18 History Atorvastatin [Lipitor] 80 mg PO DAILY 08/31/17 08/19/18 History Budesonide-Formot 160-4.5 Mcg 2 puff INHALATION RT-BID 08/31/17 08/19/18 History [Symbicort 160-4.5 Mcg Inhaler] Ipratropium/Albuterol Sulfate 1 puff INHALATION RT-QID 08/31/17 08/19/18 History [Combivent Respimat Inhaler] Lisinopril [Prinivil] 5 mg PO BID 08/31/17 08/19/18 History Tamsulosin [Flomax] 0.4 mg PO DAILY #30 cap.er.24h 09/22/17 08/19/18 Rx INSULIN ASPART (NovoLOG) [[place]ovo[place] 6 unit SQ AC-TID vial 09/28/17 08/19/18 Rx (formulary)] Melatonin 3 mg PO HS tablet 09/28/17 08/19/18 Rx Loperamide [Imodium] 2 mg PO QID 05/09/18 08/19/18 History HYDROcodone/APAP 10-325MG [[place] 1 tab PO TID PRN 08/19/18 08/19/18 History 10-325] Allergies Allergy/AdvReac Type Severity Reaction Status Date / Time No Known Allergies Allergy Verified 08/19/18 07:41 Physical Exam Vitals: Vital Signs Temp Pulse Pulse Resp BP BP Pulse Ox 08/19/18 07:40 97.9 F 100 16 93/60 99 08/19/18 05:57 99.0 F 78 17 120/62 97 08/19/18 03:30 104 H 18 109/57 98 08/19/18 01:41 98.7 F 109 H 20 96/59 96 Intake and Output 08/18/18 08/19/18 08/19/18 22:59 06:59 14:59 Other: Weight 54.431 kg Constitutional: No acute distress, conversant, pleasant Eyes: Anicteric sclerae, moist conjunctiva, no lid-lag, PERRLA ENMT: NC/AT,Oropharynx clear, no erythema, exudates Neck:Supple, FROM, no masses, or JVD, No carotid bruits; No thyromegaly Lungs: Clear to auscultation, Clear to percussion, Normal respiratory effort, no accessory muscle use Cardiovascular: Heart regular in rate and rhythm, No murmurs, gallops, or rubs no peripheral edema Abdominal: Soft Nontender, nom distended, no guarding, no rebound or rigidity, Normoactive bowel sounds No hepatomegaly, No splenomegaly, No palpable mass No abdominal wall hernia noted Skin: Normal temperature, tone, texture, turgor, No induration No subcutaneous nodules, No rash, lesions, No ulcers Extremities:No digital cyanosis No clubbing, Pedal pulses intact and symmetrical Radial pulses intact and symmetrical Normal gait and station, No calf tenderness Psychiatric: Alert and oriented to person, place and time, Appropriate affect Intact judgement Neuro: Muscles Strength 5/5 in all 4 extremities, Sensation to light touch grossly present throughout, Cranial nerves II-XII grossly intact. No focal sensory deficits Results CBC & Chem 7: 08/19/18 02:05 08/19/18 02:05 Labs: Abnormal Lab Results - Last 24 Hours (Table) 08/19/18 08/19/18 08/19/18 Range/Units 02:05 02:05 02:05 WBC 17.7 H (3.8-10.6) k/uL Neutrophils # 15.0 H (1.3-7.7) k/uL Sodium 135 L (137-145) mmol/L Carbon Dioxide 20 L (22-30) mmol/L Creatinine 0.51 L (0.52-1.04) mg/dL Glucose 254 H (74-99) mg/dL POC Glucose (mg/dL) (75-99) mg/dL Alkaline Phosphatase 137 H (38-126) U/L Urine Appearance Cloudy H (Clear) Urine Protein 1+ H (Negative) Urine Glucose (UA) 4+ H (Negative) Urine Ketones 1+ H (Negative) Urine Blood Trace H (Negative) Urine Nitrite Positive H (Negative) Ur Leukocyte Esterase Large H (Negative) Urine WBC >182 H (0-5) /hpf Urine WBC Clumps Moderate H (None) /hpf Urine Bacteria Many H (None) /hpf Urine Mucus Rare H (None) /hpf 08/19/18 Range/Units 07:27 WBC (3.8-10.6) k/uL Neutrophils # (1.3-7.7) k/uL Sodium (137-145) mmol/L Carbon Dioxide (22-30) mmol/L Creatinine (0.52-1.04) mg/dL Glucose (74-99) mg/dL POC Glucose (mg/dL) 207 H (75-99) mg/dL Alkaline Phosphatase (38-126) U/L Urine Appearance (Clear) Urine Protein (Negative) Urine Glucose (UA) (Negative) Urine Ketones (Negative) Urine Blood (Negative) Urine Nitrite (Negative) Ur Leukocyte Esterase (Negative) Urine WBC (0-5) /hpf Urine WBC Clumps (None) /hpf Urine Bacteria (None) /hpf Urine Mucus (None) /hpf Assessment and Plan (1) Sepsis Current Visit: Yes Status: Acute Code(s): A41.9 - SEPSIS, UNSPECIFIED ORGANISM SNOMED Code(s): 67247816 (2) Diverticulitis Current Visit: Yes Status: Acute Code(s): K57.92 - DVTRCLI OF INTEST, PART UNSP, W/O PERF OR ABSCESS W/O BLEED SNOMED Code(s): 351357744 (3) UTI (urinary tract infection) Current Visit: Yes Status: Acute Code(s): N39.0 - URINARY TRACT INFECTION, SITE NOT SPECIFIED SNOMED Code(s): 41677131 (4) Type 2 diabetes mellitus with hyperglycemia Current Visit: Yes Status: Acute Code(s): E11.65 - TYPE 2 DIABETES MELLITUS WITH HYPERGLYCEMIA SNOMED Code(s): 628519152153309 (5) Abdominal pain Current Visit: No Status: Acute Code(s): R10.9 - UNSPECIFIED ABDOMINAL PAIN SNOMED Code(s): 29546569 (6) Adrenal mass, left Current Visit: Yes Status: Acute Code(s): E27.9 - DISORDER OF ADRENAL GLAND, UNSPECIFIED SNOMED Code(s): 525697906 Plan: The patient is admitted anticipated greater than 2 midnight stay with sepsis attributed to a presumed urinary tract infection superimposed on acute diverticulitis flare, the patient is hemodynamically stable, afebrile but has a pronounced leukocytosis of 17.7, urinalysis suggesting urinary tract infection urine cultures are ordered, blood cultures are pending, will obtain a chest x- ray Re: Cough and congestion to rule out pneumonia. Start empiric IV antibiotics with Rocephin and Flagyl. We'll order C. diff this patient has recently been on antibiotics. The patient is noted to have type 2 diabetes with noted hyperglycemia, resume her home insulin regimen continue Accu-Cheks qachs with correctional scale coverage, A1c checked and is pending. The patient has a noted left adrenal mass that seems to be enlarging no up to 2.2 cm, will order urine metanephrines and catecholamines rennin and aldosterone and plan to consult general surgery for possible biopsy. We'll continue to follow the patient's clinical course, CODE STATUS: Full code Anticipated discharge: 2-3 days Discussed plan of care with patient Prophylaxis : SCDs and heparin, PPI therapy Time with Patient: Greater than 30
--- NOTE | 2018-08-19 11:08 | XR ---
EXAMINATION TYPE: XR chest 2V DATE OF EXAM: 08/19/2018 COMPARISON: 10/03/2017 INDICATION: Cough, leukocytosis TECHNIQUE: Frontal and lateral views of the chest are obtained. FINDINGS: The heart size is normal. The pulmonary vasculature is normal. There is some streak opacity in the left lower lung field from the hilar region. This has improved fr om the comparison study. Some underlying prominence of left main pulmonary artery may remain present. There is chronic elevation left diaphragm. Some thickening is at the left apex. IMPRESSION: 1. Chronic type changes. Acute pulmonary process not radiographically apparent.
[2018-08-19 11:12] LABS: Glucose,Whole Blood 249 mg/dL (75-99)
[2018-08-19] MEDS: METOPROLOL TARTRATE 25 MG TAB PO SCH ×2 (12:34→21:42)
[2018-08-19] MEDS: ATORVASTATIN 80 MG TAB PO SCH (12:34)
[2018-08-19] MEDS: LISINOPRIL 5 MG TAB PO SCH ×2 (12:34→21:42)
[2018-08-19] MEDS: guaiFENesin 600 MG TABLET.ER PO SCH ×2 (13:27→21:42)
[2018-08-19] MEDS: HYDROcodone/APAP 7.5-325MG 1 EACH TAB PO PRN ×3 (13:31→22:24)
--- NOTE | 2018-08-19 13:59 | P.GSCN ---
History of Present Illness Consult date: 08/19/18 Reason for Consult: Adrenal mass History of present illness: The patient is a 67 year old female who presented to the ED with sever suprapubic pain. A CT scan was performed and I was asked to evaluate her regarding enlarging adrenal masses. She's had no dictation of adrenal mass and a small pancreatic head lesion since 2018. The adrenal masses are enlarging. She has problems with chronic diarrhea. This is been present since a previous colon resection. The diarrhea has not changed. She is found to have a urinary tract infection. There is no endocrine malignancy in the family. Review of Systems All systems: negative (Severe lower abdominal pain) Past Medical History Past Medical History: Coronary Artery Disease (CAD), Diabetes Mellitus, Fibromyalgia, GERD/Reflux, Myocardial Infarction ([place]) Additional Past Medical History / Comment(s): Idiopathic thrombocytopenia purpura, IBS, diverticulitis, hiatal hernia, 2 herniated discs-L3/L4, Restless Leg Syndrome, gastritis, superficial gastric ulcers. nodule on lt lung-Cancer Stg 1 Last Myocardial Infarction Date:: 01/2017 History of Any Multi-Drug Resistant Organisms: None Reported Past Surgical History: Adenoidectomy, Bladder Surgery, Bowel Resection, Cholecystectomy, Heart Catheterization With Stent, Hernia Repair, Hysterectomy, Tonsillectomy Additional Past Surgical History / Comment(s): BLADDER SUSPENSION x 2, breast biopsy x3, bowel resection due to rupture. left upper lobe of lung removed per [place] Past Anesthesia/Blood Transfusion Reactions: No Reported Reaction Additional Past Anesthesia/Blood Transfusion Reaction / Comm: Pt received blood in 2005 due to ITP without reaction. Date of Last Stent Placement:: 01/2017 Past Psychological History: Anxiety Additional Psychological History / Comment(s): . Smoking Status: Current some day smoker Past Alcohol Use History: None Reported Additional Past Alcohol Use History / Comment(s): STARTED SMOKING AT AGE 18-S MOKED 1PPD AND QUIT Past Drug Use History: None Reported - Past Family History Mother Family Medical History: Cancer, Diabetes Mellitus Additional Family Medical History / Comment(s): Father had a defibrillator. He of heart dx in his 80's Father Family Medical History: Diabetes Mellitus Additional Family Medical History / Comment(s): HEART DISEASE Medications and Allergies Home Medications Medication Instructions Recorded Confirmed Type ALPRAZolam 0.25 mg PO BID PRN 11/03/15 08/19/18 History Insulin Detemir (Levemir) [Levemir] 30 unit SQ BID 11/09/15 08/19/18 History Solifenacin Succinate [Vesicare] 10 mg PO HS 04/12/16 08/19/18 History rOPINIRole HCL [Requip] 0.25 mg PO HS 04/12/16 08/19/18 History Pantoprazole [Protonix] 40 mg PO QAM PRN 01/14/17 08/19/18 History Aspirin 81 mg PO DAILY chew 01/17/17 08/19/18 Rx Metoprolol Tartrate [Lopressor] 25 mg PO BID #60 tab 01/17/17 08/19/18 Rx Nitroglycerin Sl Tabs [Nitrostat] 0.4 mg SUBLINGUAL Q5M PRN #21 tab 01/17/17 08/19/18 Rx Clopidogrel Bisulfate [Plavix] 75 mg PO DAILY 06/26/17 08/19/18 History Atorvastatin [Lipitor] 80 mg PO DAILY 08/31/17 08/19/18 History Budesonide-Formot 160-4.5 Mcg 2 puff INHALATION RT-BID 08/31/17 08/19/18 History [Symbicort 160-4.5 Mcg Inhaler] Ipratropium/Albuterol Sulfate 1 puff INHALATION RT-QID 08/31/17 08/19/18 History [Combivent Respimat Inhaler] Lisinopril [Prinivil] 5 mg PO BID 08/31/17 08/19/18 History Tamsulosin [Flomax] 0.4 mg PO DAILY #30 cap.er.24h 09/22/17 08/19/18 Rx INSULIN ASPART (NovoLOG) [NovoLOG 6 unit SQ AC-TID vial 09/28/17 08/19/18 Rx (formulary)] Melatonin 3 mg PO HS tablet 09/28/17 08/19/18 Rx Loperamide [Imodium] 2 mg PO QID 05/09/18 08/19/18 History HYDROcodone/APAP 10-325MG [[place] 1 tab PO TID PRN 08/19/18 08/19/18 History 10-325] Allergies Allergy/AdvReac Type Severity Reaction Status Date / Time No Known Allergies Allergy Verified 08/19/18 07:41 Surgical - Exam Osteopathic Statement: *. No significant issues noted on an osteopathic structural exam other than those noted in the History and Physical/Consult. Vital Signs Temp Pulse Resp BP Pulse Ox 98.7 F 109 H 20 96/59 96 08/19/18 01:41 08/19/18 01:41 08/19/18 01:41 08/19/18 01:41 08/19/18 01:41 - General well developed, well nourished, no distress - Eyes normal ocular movement - Respiratory normal respiratory effort - Cardiovascular Rhythm: regular - Abdomen Abdomen: soft, tender (Suprapubic tenderness) Results - Labs 08/19/18 02:05 08/19/18 02:05 Abnormal Lab Results - Last 24 Hours (Table) 08/19/18 08/19/18 08/19/18 Range/Units 02:05 02:05 02:05 WBC 17.7 H (3.8-10.6) k/uL Neutrophils # 15.0 H (1.3-7.7) k/uL Sodium 135 L (137-145) mmol/L Carbon Dioxide 20 L (22-30) mmol/L Creatinine 0.51 L (0.52-1.04) mg/dL Glucose 254 H (74-99) mg/dL POC Glucose (mg/dL) (75-99) mg/dL Alkaline Phosphatase 137 H (38-126) U/L Urine Appearance Cloudy H (Clear) Urine Protein 1+ H (Negative) Urine Glucose (UA) 4+ H (Negative) Urine Ketones 1+ H (Negative) Urine Blood Trace H (Negative) Urine Nitrite Positive H (Negative) Ur Leukocyte Esterase Large H (Negative) Urine WBC >182 H (0-5) /hpf Urine WBC Clumps Moderate H (None) /hpf Urine Bacteria Many H (None) /hpf Urine Mucus Rare H (None) /hpf 08/19/18 08/19/18 Range/Units 07:27 11:10 WBC (3.8-10.6) k/uL Neutrophils # (1.3-7.7) k/uL Sodium (137-145) mmol/L Carbon Dioxide (22-30) mmol/L Creatinine (0.52-1.04) mg/dL Glucose (74-99) mg/dL POC Glucose (mg/dL) 207 H 249 H (75-99) mg/dL Alkaline Phosphatase (38-126) U/L Urine Appearance (Clear) Urine Protein (Negative) Urine Glucose (UA) (Negative) Urine Ketones (Negative) Urine Blood (Negative) Urine Nitrite (Negative) Ur Leukocyte Esterase (Negative) Urine WBC (0-5) /hpf Urine WBC Clumps (None) /hpf Urine Bacteria (None) /hpf Urine Mucus (None) /hpf Diabetes panel 08/19/18 Range/Units 02:05 Sodium 135 L (137-145) mmol/L Potassium 4.7 (3.5-5.1) mmol/L Chloride 103 (98-107) mmol/L Carbon Dioxide 20 L (22-30) mmol/L BUN 13 (7-17) mg/dL Creatinine 0.51 L (0.52-1.04) mg/dL Glucose 254 H (74-99) mg/dL Calcium 9.7 (8.4-10.2) mg/dL AST 26 (14-36) U/L ALT 32 (9-52) U/L Alkaline Phosphatase 137 H (38-126) U/L Total Protein 6.9 (6.3-8.2) g/dL Albumin 4.0 (3.5-5.0) g/dL Calcium panel 08/19/18 Range/Units 02:05 Calcium 9.7 (8.4-10.2) mg/dL Albumin 4.0 (3.5-5.0) g/dL Pituitary panel 08/19/18 Range/Units 02:05 Sodium 135 L (137-145) mmol/L Potassium 4.7 (3.5-5.1) mmol/L Chloride 103 (98-107) mmol/L Carbon Dioxide 20 L (22-30) mmol/L BUN 13 (7-17) mg/dL Creatinine 0.51 L (0.52-1.04) mg/dL Glucose 254 H (74-99) mg/dL Calcium 9.7 (8.4-10.2) mg/dL Adrenal panel 08/19/18 Range/Units 02:05 Sodium 135 L (137-145) mmol/L Potassium 4.7 (3.5-5.1) mmol/L Chloride 103 (98-107) mmol/L Carbon Dioxide 20 L (22-30) mmol/L BUN 13 (7-17) mg/dL Creatinine 0.51 L (0.52-1.04) mg/dL Glucose 254 H (74-99) mg/dL Calcium 9.7 (8.4-10.2) mg/dL Total Bilirubin 0.7 (0.2-1.3) mg/dL AST 26 (14-36) U/L ALT 32 (9-52) U/L Alkaline Phosphatase 137 H (38-126) U/L Total Protein 6.9 (6.3-8.2) g/dL Albumin 4.0 (3.5-5.0) g/dL - Imaging CT scan - abdomen: report reviewed, image reviewed Assessment and Plan (1) Adrenal mass, left Current Visit: Yes Status: Acute Code(s): E27.9 - DISORDER OF ADRENAL GLAND, UNSPECIFIED SNOMED Code(s): 327037993 (2) Sepsis Current Visit: Yes Status: Acute Code(s): A41.9 - SEPSIS, UNSPECIFIED ORGANISM SNOMED Code(s): 13438170 (3) UTI (urinary tract infection) Current Visit: Yes Status: Acute Code(s): N39.0 - URINARY TRACT INFECTION, SITE NOT SPECIFIED SNOMED Code(s): 98466620 (4) Abdominal pain Current Visit: No Status: Acute Code(s): R10.9 - UNSPECIFIED ABDOMINAL PAIN SNOMED Code(s): 43257468 (5) Small cell lung carcinoma Current Visit: No Status: Acute Code(s): C34.90 - MALIGNANT NEOPLASM OF UNSP PART OF UNSP BRONCHUS OR LUNG SNOMED Code(s): 414826445 Plan: Recommend oncology evaluation to see whether these masses and the adrenal could be metastatic. Consider outpatient percutaneous needle biopsy of the adrenal masses. If they would need surgical excision, recommend urology evaluation. I will follow up as needed.
[2018-08-19 17:01] LABS: Glucose,Whole Blood 293 mg/dL (75-99)
[2018-08-19] MEDS: metroNIDAZOLE-NS PMX 500 MG in SALINE 1 100ML.BAG IVPB SCH (19:28)
[2018-08-19 19:55] LABS: Glucose,Whole Blood 269 mg/dL (75-99)
[2018-08-19] MEDS: MELATONIN 3 MG TABLET PO SCH (21:42)
[2018-08-19] MEDS: TROSPIUM CHLORIDE 20 MG TABLET PO SCH (21:42)
[2018-08-19] MEDS: HEPARIN SODIUM,PORCINE 5,000 UNIT/ML 1 ML VIAL SQ SCH (21:42)
[2018-08-19] MEDS: INSULIN DETEMIR (LEVEMIR) 100 UNIT/ML SYR SQ SCH (21:43)
[2018-08-20] MEDS: HYDROcodone/APAP 7.5-325MG 1 EACH TAB PO PRN ×4 (03:11→20:07)
[2018-08-20] MEDS: SODIUM CHLORIDE 0.9% 1,000 ML IV SCH ×2 (03:12→20:08)
[2018-08-20] MEDS: metroNIDAZOLE-NS PMX 500 MG in SALINE 1 100ML.BAG IVPB SCH ×2 (04:48→12:14)
[2018-08-20] MEDS ORDERED: SODIUM CHLORIDE 0.9% 1,000 ML IV ONE (05:49)
[2018-08-20 07:06] LABS: Glucose,Whole Blood 72 mg/dL (75-99)
[2018-08-20] MEDS: METOPROLOL TARTRATE 25 MG TAB PO SCH (07:37)
[2018-08-20] MEDS ORDERED: MORPHINE SULFATE 2 MG/ML SYRINGE IV PRN (07:37)
[2018-08-20] MEDS: LISINOPRIL 5 MG TAB PO SCH (07:37)
[2018-08-20] MEDS: INSULIN ASPART (NovoLOG) 100 UNIT/ML VIAL SQ SCH ×4 (07:40→20:08)
[2018-08-20 08:16] LABS: Basophils % (A) 0 %; Eosinophils # (A) 0.4 k/uL (0-0.7); Eosinophils % (A) 5 %; HCT 35.2 % (34.0-46.0); Hypochromasia Slight; Lymphocytes # (A) 1.6 k/uL (1.0-4.8); Lymphocytes % (A) 18 %; MCH 28.3 pg (25.0-35.0); MCHC 31.8 g/dL (31.0-37.0); MCV 88.8 fL (80.0-100.0); Mean Platelet Volume 7.9; Monocytes # (A) 0.5 k/uL (0-1.0); Monocytes % (A) 6 %; Neutrophils # (A) 6.2 k/uL (1.3-7.7); Neutrophils % (A) 70 %; Platelet Count 237 k/uL (150-450); RBC 3.97 m/uL (3.80-5.40); RDW 14.5 % (11.5-15.5); WBC 8.9 k/uL (3.8-10.6)
[2018-08-20 08:21] LABS: HGB 11.2 gm/dL (11.4-16.0)
[2018-08-20 08:22] LABS: Anion Gap 2 mmol/L; Blood Urea Nitrogen 10 mg/dL (7-17); Calcium 7.8 mg/dL (8.4-10.2); Carbon Dioxide 25 mmol/L (22-30); Chloride 112 mmol/L (98-107); Glucose 57 mg/dL (74-99); Potassium 3.8 mmol/L (3.5-5.1); Sodium 139 mmol/L (137-145)
[2018-08-20] MEDS: INSULIN DETEMIR (LEVEMIR) 100 UNIT/ML SYR SQ SCH ×2 (08:47→20:08)
[2018-08-20] MEDS: TROSPIUM CHLORIDE 20 MG TABLET PO SCH ×2 (08:49→20:32)
[2018-08-20] MEDS: guaiFENesin 600 MG TABLET.ER PO SCH ×2 (08:49→20:07)
[2018-08-20] MEDS: ATORVASTATIN 80 MG TAB PO SCH (08:49)
[2018-08-20] MEDS: TAMSULOSIN 0.4 MG CAP.ER.24H PO SCH (08:49)
[2018-08-20] MEDS: SYMBICORT 160-4.5 MCG INHALER INHALATION SCH ×2 (08:56→18:57)
[2018-08-20] MEDS: IPRATROPIUM-ALBUTEROL 3 ML NEB INHALATION SCH ×4 (08:56→18:57)
[2018-08-20] MEDS: HEPARIN SODIUM,PORCINE 5,000 UNIT/ML 1 ML VIAL SQ SCH ×2 (11:08→19:53)
[2018-08-20 11:17] LABS: Glucose,Whole Blood 84 mg/dL (75-99)
[2018-08-20 12:14] LABS: Hemoglobin A1C 11.6 % (4.0-6.0)
[2018-08-20] MEDS: CLOPIDOGREL 75 MG TAB PO SCH (12:14)
[2018-08-20] MEDS: ASPIRIN 81 MG PO SCH (12:14)
--- NOTE | 2018-08-20 13:41 | P.CONS ---
History of Present Illness - Reason for Consult Consult date: 08/20/18 Enlarging adrenal mass Requesting physician: Jeferson Hawley - Chief Complaint Abdominal pain - History of Present Illness Mrs. Dow is a very pleasant 67-year-old female with a very extensive history documented here over the last 4 years here. First documented CTAP was 06/05/2014 for abdominal pain. Patient had a 6 mm pancreatic head mass noted. On 07/14/2015 CT AP for abdominal pain showed a 1.7 adrenal nodule and again discussed the pancreatic head mass. Patient had an EGD with Dr. Fang on 08/03/2015 that was negative. On 08/05/2015 she had a cholecystectomy with Dr. Fang with exploratory laparotomy with lysis of adhesions. CT AP on 10/24 the left kidney showed a 3.7 cm cyst, no discussion of the adrenal nodule or pancreatic head mass. On 11/10/2015 she had hernia repair. 04/18/2016 she had EGD for abdominal pain, hemorrhagic gastritis, path was negative. 08/26/2016 CT AP for abdominal pain discussed a 3.2 cm left renal cyst, no discussion of adrenal mass or pancreatic head mass. 09/04/2016, EGD for antral gastritis, pathology negative. 10/17/2016 she had laparoscopic exploration with lysis of adhesions. 01/14/2017 she had a cardiac catheterization. Patient was seen by oncology/hematology for ITP on 01/16/2017 as she was needing anticoagulation. 06/26/2017 CT of the abdomen abdomen and pelvis showed a 6 mm pancreatic head mass, 2 cm left adrenal mass and a 3.7 cm left adrenal cyst. 07/25/2017 MRI was negative for pancreatic mass, 2.5 cm left adrenal mass was documented. 07/28/2017 a PET scan showed no activity, classified the adrenal mass as an adenoma/cyst, there was a left upper lobe PET avid area. On 08/21/2017 patient had a right breast cyst removed. On 09/07/2017 patient had a left upper lobectomy with 11 lymph nodes removed. This revealed a 1.5 cm, grade 2 squamous cell carcinoma, pathological stage TIb N0 M0, patient was never seen by a medical oncologist, no adjuvant treatment. On 09/12/2017 CT AP for abdominal pain showed 2 messes in the left adrenal, one measuring 2 cm and one measuring 1.8 cm, classified as stable. On 09/14/2017 she had an EGD with Dr. Rowland for ileus. 09/18/2017 she had a bronchoscopy with transbronchial biopsy and bronchial alveolar lavage with Dr. Borja, pathology was negative. On 09/27/2017 patient had a left lung collapse, Dr. Lan performed bronchoscopy and bronchoalveolar lavage, pathology negative. Patient is presenting to the hospital with abdominal pain, CT of the abdomen and pelvis is discussing a 4.8 mm pancreatic head mass, and 2 lesions in the left adrenal gland but it only measures 1 of them stating its larger than the 1.6 it is now 2.2. She presented to the emergency department with persistent, progressive, generalized abdominal pain, she was not taking any pain medications, she did have an episode of vomiting and some diarrhea which is chronic and overall unchanged, she denied dysuria or hematuria, she has occasionally see mucus stools no hematochezia or melena, the abdominal pain does not improve after a bowel movement, appetite has been fair to poor. Patient has not had any recent unintentional weight loss, fevers, sweats, difficulty swallowing, adenopathy, difficulty breathing, cough, hemoptysis, chest pain or lower extremity swelling. Review of Systems 14 point review of systems is negative except as stated in HPI Past Medical History Past Medical History: Coronary Artery Disease (CAD), Cancer, Diabetes Mellitus, Fibromyalgia, GERD/Reflux, Myocardial Infarction ([place]) Additional Past Medical History / Comment(s): Idiopathic thrombocytopenia purpura, IBS, diverticulitis, hiatal hernia, 2 herniated discs-L3/L4, Restless Leg Syndrome, gastritis, superficial gastric ulcers. nodule on lt lung-Cancer Stg 1 Last Myocardial Infarction Date:: 01/2017 History of Any Multi-Drug Resistant Organisms: None Reported Past Surgical History: Adenoidectomy, Bladder Surgery, Bowel Resection, Cholecystectomy, Heart Catheterization With Stent, Hernia Repair, Hysterectomy, Tonsillectomy Additional Past Surgical History / Comment(s): BLADDER SUSPENSION x 2, breast biopsy x3, bowel resection due to rupture. left upper lobe of lung removed per [place] Past Anesthesia/Blood Transfusion Reactions: No Reported Reaction Additional Past Anesthesia/Blood Transfusion Reaction / Comm: Pt received blood in 2005 due to ITP without reaction. Date of Last Stent Placement:: 01/2017 Past Psychological History: Anxiety Additional Psychological History / Comment(s): . Smoking Status: Current some day smoker Past Alcohol Use History: None Reported Additional Past Alcohol Use History / Comment(s): STARTED SMOKING AT AGE 18- SMOKED 1PPD AND QUIT -2017 Past Drug Use History: None Reported - Past Family History Mother Family Medical History: Cancer, Diabetes Mellitus Additional Family Medical History / Comment(s): Father had a defibrillator. He of heart dx in his 80's Father Family Medical History: Diabetes Mellitus Additional Family Medical History / Comment(s): HEART DISEASE Medications and Allergies Home Medications Medication Instructions Recorded Confirmed Type ALPRAZolam 0.25 mg PO BID PRN 11/03/15 08/19/18 History Insulin Detemir (Levemir) [Levemir] 30 unit SQ BID 11/09/15 08/19/18 History Solifenacin Succinate [Vesicare] 10 mg PO HS 04/12/16 08/19/18 History rOPINIRole HCL [Requip] 0.25 mg PO HS 04/12/16 08/19/18 History Pantoprazole [Protonix] 40 mg PO QAM PRN 01/14/17 08/19/18 History Aspirin 81 mg PO DAILY chew 01/17/17 08/19/18 Rx Metoprolol Tartrate [Lopressor] 25 mg PO BID #60 tab 01/17/17 08/19/18 Rx Nitroglycerin Sl Tabs [Nitrostat] 0.4 mg SUBLINGUAL Q5M PRN #21 tab 01/17/17 08/19/18 Rx Clopidogrel Bisulfate [Plavix] 75 mg PO DAILY 06/26/17 08/19/18 History Atorvastatin [Lipitor] 80 mg PO DAILY 08/31/17 08/19/18 History Budesonide-Formot 160-4.5 Mcg 2 puff INHALATION RT-BID 08/31/17 08/19/18 History [Symbicort 160-4.5 Mcg Inhaler] Ipratropium/Albuterol Sulfate 1 puff INHALATION RT-QID 08/31/17 08/19/18 History [Combivent Respimat Inhaler] Lisinopril [Prinivil] 5 mg PO BID 08/31/17 08/19/18 History Tamsulosin [Flomax] 0.4 mg PO DAILY #30 cap.er.24h 09/22/17 08/19/18 Rx INSULIN ASPART (NovoLOG) [NovoLOG 6 unit SQ AC-TID vial 09/28/17 08/19/18 Rx (formulary)] Melatonin 3 mg PO HS tablet 09/28/17 08/19/18 Rx Loperamide [Imodium] 2 mg PO QID 05/09/18 08/19/18 History HYDROcodone/APAP 10-325MG [[place] 1 tab PO TID PRN 08/19/18 08/19/18 History 10-325] Allergies Allergy/AdvReac Type Severity Reaction Status Date / Time No Known Allergies Allergy Verified 08/19/18 07:41 Physical Exam Vitals: Vital Signs Temp Pulse Pulse Pulse Resp BP BP 08/20/18 12:39 88 08/20/18 12:29 84 08/20/18 11:54 97.6 F 85 20 104/51 08/20/18 09:09 90 08/20/18 08:56 88 08/20/18 07:38 80 85/39 89/56 08/20/18 04:50 81/45 08/20/18 04:13 98.2 F 79 16 83/44 08/19/18 20:08 97.4 F L 96 16 106/64 08/19/18 19:27 90 08/19/18 19:09 90 08/19/18 16:00 100 18 08/19/18 15:30 90 08/19/18 15:16 90 Pulse Ox 08/20/18 12:39 08/20/18 12:29 08/20/18 11:54 96 08/20/18 09:09 08/20/18 08:56 08/20/18 07:38 08/20/18 04:50 08/20/18 04:13 93 L 08/19/18 20:08 98 08/19/18 19:27 08/19/18 19:09 08/19/18 16:00 08/19/18 15:30 08/19/18 15:16 Intake and Output 08/19/18 08/20/18 08/20/18 22:59 06:59 14:59 Intake Total 480 Balance 480 Intake: Oral 480 Other: Voiding Method Toilet Toilet Toilet # Voids 2 1 - Constitutional General appearance: average body habitus, cooperative, no acute distress - EENT Dry, reddened tongue, no ulcers or thrush Eyes: anicteric sclerae, EOMI, normal appearance ENT: hearing grossly normal - Neck Neck: no lymphadenopathy - Respiratory Respiratory: bilateral: rhonchi (Anterior, left greater than right) - Cardiovascular Rhythm: regular Heart sounds: normal: S1, S2 leg Peripheral Edema: bilateral: None - Gastrointestinal General gastrointestinal: no absent bowel sounds, no decreased bowel sounds, distended, no hyperactive bowel sounds, normal bowel sounds, no rigid, no scaphoid, soft, tenderness, no umbilical hernia, no ventral hernia - Integumentary Integumentary: normal - Neurologic Neurologic: CNII-XII intact - Musculoskeletal Musculoskeletal: strength equal bilaterally - Psychiatric Psychiatric: A&O x's 3, appropriate affect, intact judgment & insight Results CBC & Chem 7: 08/20/18 06:47 08/20/18 06:47 Labs: Abnormal Lab Results - Last 24 Hours (Table) 08/19/18 08/19/18 08/19/18 Range/Units 02:05 16:59 19:53 Hgb (11.4-16.0) gm/dL Chloride (98-107) mmol/L Creatinine (0.52-1.04) mg/dL Glucose (74-99) mg/dL POC Glucose (mg/dL) 293 H 269 H (75-99) mg/dL Hemoglobin A1c 11.6 H (4.0-6.0) % Calcium (8.4-10.2) mg/dL 08/20/18 08/20/18 08/20/18 Range/Units 06:47 06:47 07:04 Hgb 11.2 L D (11.4-16.0) gm/dL Chloride 112 H (98-107) mmol/L Creatinine 0.48 L (0.52-1.04) mg/dL Glucose 57 L (74-99) mg/dL POC Glucose (mg/dL) 72 L (75-99) mg/dL Hemoglobin A1c (4.0-6.0) % Calcium 7.8 L (8.4-10.2) mg/dL Microbiology - Last 24 Hours (Table) 08/19/18 02:05 Urine Culture - Preliminary Urine,Voided Gram Neg Bacilli 08/19/18 03:06 Blood Culture - Preliminary Blood No Growth after 24 hours Abdominal x-ray: report reviewed CT scan - abdomen: report reviewed CT scan - pelvis: report reviewed Assessment and Plan (1) Adrenal mass, left Current Visit: Yes Status: Chronic Priority: Low Code(s): E27.9 - DISORDER OF ADRENAL GLAND, UNSPECIFIED SNOMED Code(s): 534290136 (2) Mass of pancreas Current Visit: Yes Status: Acute Code(s): K86.9 - DISEASE OF PANCREAS, UNSPECIFIED SNOMED Code(s): 914670628 (3) Squamous cell lung cancer Current Visit: No Status: Chronic Priority: Low Code(s): C34.90 - MALIGNANT NEOPLASM OF UNSP PART OF UNSP BRONCHUS OR LUNG SNOMED Code(s): 886523588 Plan: After thorough chart review it appears that this pancreatic head mass as well as the left adrenal mass has been present since at least . There are minor size fluctuations but, overall it both appear to be stable. Would recommend a PET scan outpatient to see if any of these areas are PET avid. Percutaneous biopsy of adrenal mass could be performed if felt to be amenable by Interventional Radiology. We will order an MRI of the abdomen and ask to be compared to the 07/25/2017 image.
--- NOTE | 2018-08-20 16:40 | P.PN ---
Subjective Progress Note Date: 08/20/18 Patient seen and examined at bedside and follow-up, daughter present. Nursing reporting borderline blood pressures early this morning, the patient appears asymptomatic no lightheadedness headaches or dizziness/. Patient continues to have lower/suprapubic abdominal pain and is exquisitely tender on exam, patient has been having sensation of incomplete voiding. C. diff was ordered but has not been sent secondary to the patient's diarrhea resolving, Patient denies any nausea. Daughter with multiple questions regarding patient's left adrenal mass underwent biopsy will be taken. Patient seen by oncology and general surgery. Objective - Vital Signs Vital signs: Vital Signs Temp 97.6 F 08/20/18 11:54 Pulse 86 08/20/18 15:29 Resp 20 08/20/18 11:54 BP 104/51 08/20/18 11:54 Pulse Ox 96 08/20/18 11:54 Intake & Output 08/19/18 08/20/18 08/20/18 18:59 06:59 18:59 Intake Total 1110 1520 Balance 1110 1520 Intake: Intake, IV Titration 150 1520 Amount Sodium Chloride 0.9% 1, 420 000 ml @ 60 mls/hr IV . [id number] [facility] Rx#:[id number] Sodium Chloride 0.9% 1, 1000 000 ml @ 999 mls/hr IV . Q1H1M [facility] Rx#:[id number] cefTRIAXone 1 gm In 50 Sodium Chloride 0.9% 50 ml @ 100 mls/hr IVPB Q24H [facility] Rx#:[id number] metroNIDAZOLE-NS PMX 500 100 100 mg In Saline 1 100ml.bag @ 100 mls/hr IVPB Q8H [facility] Rx#:[id number] Oral 960 Other: Voiding Method Toilet Toilet Toilet # Voids 3 1 - Exam Constitutional: No acute distress, conversant, pleasant Eyes: Anicteric sclerae, moist conjunctiva, no lid-lag, PERRLA ENMT: NC/AT,Oropharynx clear, no erythema, exudates Neck:Supple, FROM, no masses, or JVD, No carotid bruits; No thyromegaly Lungs: Clear to auscultation, Clear to percussion, Normal respiratory effort, no accessory muscle use Cardiovascular: Heart regular in rate and rhythm, No murmurs, gallops, or rubs no peripheral edema Abdominal: Soft tender to palpation in the lower abdomen suprapubic area, nondistended, Normoactive bowel sounds No hepatomegaly Skin: Normal temperature, tone, texture, turgor, No induration No subcutaneous nodules, No rash, lesions, No ulcers Extremities:No digital cyanosis No clubbing, Pedal pulses intact and symmetrical Radial pulses intact and symmetrical Normal gait and station, No calf tenderness Psychiatric: Alert and oriented to person, place and time, Appropriate affect Intact judgement Neuro: Muscles Strength 5/5 in all 4 extremities, Sensation to light touch grossly present throughout, Cranial nerves II-XII grossly intact. No focal sensory deficits - Labs CBC & Chem 7: 08/20/18 06:47 08/20/18 06:47 Labs: Abnormal Lab Results - Last 24 Hours (Table) 08/19/18 08/19/18 08/19/18 Range/Units 02:05 16:59 19:53 Hgb (11.4-16.0) gm/dL Chloride (98-107) mmol/L Creatinine (0.52-1.04) mg/dL Glucose (74-99) mg/dL POC Glucose (mg/dL) 293 H 269 H (75-99) mg/dL Hemoglobin A1c 11.6 H (4.0-6.0) % Calcium (8.4-10.2) mg/dL 08/20/18 08/20/18 08/20/18 Range/Units 06:47 06:47 07:04 Hgb 11.2 L D (11.4-16.0) gm/dL Chloride 112 H (98-107) mmol/L Creatinine 0.48 L (0.52-1.04) mg/dL Glucose 57 L (74-99) mg/dL POC Glucose (mg/dL) 72 L (75-99) mg/dL Hemoglobin A1c (4.0-6.0) % Calcium 7.8 L (8.4-10.2) mg/dL Microbiology - Last 24 Hours (Table) 08/19/18 02:05 Urine Culture - Preliminary Urine,Voided Gram Neg Bacilli 08/19/18 03:06 Blood Culture - Preliminary Blood No Growth after 24 hours Assessment and Plan (1) Sepsis Narrative/Plan: * Resolved leukocytosis has resolved patient afebrile * Secondary to drug narrative bacilli UTI superimposed on acute diverticulitis * Final cultures are pending Current Visit: Yes Status: Acute Code(s): A41.9 - SEPSIS, UNSPECIFIED ORGANISM SNOMED Code(s): 77331182 (2) UTI (urinary tract infection) Narrative/Plan: * Preliminary cultures growing gram-negative bacilli * Continue current antibiotic regimen with ceftriaxone Pending final urine culture Current Visit: Yes Status: Acute Code(s): N39.0 - URINARY TRACT INFECTION, SITE NOT SPECIFIED SNOMED Code(s): 79703425 (3) Diverticulitis Narrative/Plan: * Continue treatment with Flagyl * unable to obtain C. diff as diarrhea has resolved Current Visit: Yes Status: Acute Code(s): K57.92 - DVTRCLI OF INTEST, PART UNSP, W/O PERF OR ABSCESS W/O BLEED SNOMED Code(s): 727131401 (4) Type 2 diabetes mellitus with hyperglycemia Current Visit: Yes Status: Acute Code(s): E11.65 - TYPE 2 DIABETES MELLITUS WITH HYPERGLYCEMIA SNOMED Code(s): 148011222335163 (5) Abdominal pain Narrative/Plan: * Likely secondary to UTI superimposed on diverticulitis * Continue current management * We'll discontinue IV morphine and transitioned to hydrocodone Current Visit: No Status: Acute Code(s): R10.9 - UNSPECIFIED ABDOMINAL PAIN SNOMED Code(s): 22629308 (6) Adrenal mass, left Narrative/Plan: * Appreciate oncology recommendations, patient scheduled to have a MRI of the abdomen * Planning for outpatient PET Scan and follow-up with oncology * Plan to consult IR for ultrasound or CT-guided biopsy for tomorrow Current Visit: Yes Status: Chronic Priority: Low Code(s): E27.9 - DISORDER OF ADRENAL GLAND, UNSPECIFIED SNOMED Code(s): 516490384 Plan: * IR consulted to perform biopsy tomorrow * Follow up urine cultures * Discussed care with daughter
[2018-08-20 17:18] LABS: Glucose,Whole Blood 220 mg/dL (75-99)
[2018-08-20 18:45] LABS: Amorphous Sediment,Urine Rare /hpf; Appearance,Urine Cloudy (Clear); Bilirubin,Urine Negative (Negative); Blood,Urine Negative (Negative); Color,Urine Yellow; Glucose,Urine (UA) 4+ (Negative); Ketones,Urine Negative (Negative); Leukocyte Esterase,Urine Large (Negative); Mucus,Urine Rare /hpf; Nitrite,Urine Negative (Negative); PH, Urine 6.5 (5.0-8.0); Protein,Urine Trace (Negative); RBC,Urine 2 /hpf (0-5); Specific Gravity,Urine 1.017 (1.001-1.035); Squamous Epithelial Cell,Urine 7 /hpf (0-4); Urobilinogen,Urine <2.0 mg/dL (<2.0)
[2018-08-20 19:53] LABS: Glucose,Whole Blood 208 mg/dL (75-99)
[2018-08-20] MEDS: MELATONIN 3 MG TABLET PO SCH (20:07)
[2018-08-20] MEDS: metroNIDAZOLE 500 MG TAB PO SCH (20:32)
[2018-08-20] MEDS: MORPHINE SULFATE 2 MG/ML SYRINGE IV PRN (22:21)
[2018-08-21] MEDS: HYDROcodone/APAP 7.5-325MG 1 EACH TAB PO PRN ×5 (00:06→21:27)
[2018-08-21] MEDS: MORPHINE SULFATE 2 MG/ML SYRINGE IV PRN (02:44)
[2018-08-21] MEDS: metroNIDAZOLE 500 MG TAB PO SCH ×3 (04:46→21:27)
[2018-08-21 07:04] LABS: Glucose,Whole Blood 86 mg/dL (75-99)
[2018-08-21] MEDS: ATORVASTATIN 80 MG TAB PO SCH (08:02)
[2018-08-21] MEDS: TAMSULOSIN 0.4 MG CAP.ER.24H PO SCH (08:03)
[2018-08-21] MEDS: TROSPIUM CHLORIDE 20 MG TABLET PO SCH ×2 (08:03→22:01)
[2018-08-21] MEDS: guaiFENesin 600 MG TABLET.ER PO SCH ×2 (08:03→21:27)
[2018-08-21] MEDS: INSULIN DETEMIR (LEVEMIR) 100 UNIT/ML SYR SQ SCH ×2 (08:04→21:28)
[2018-08-21] MEDS: INSULIN ASPART (NovoLOG) 100 UNIT/ML VIAL SQ SCH ×4 (08:04→21:28)
[2018-08-21] MEDS: ASPIRIN 81 MG PO SCH (08:04)
[2018-08-21] MEDS: HEPARIN SODIUM,PORCINE 5,000 UNIT/ML 1 ML VIAL SQ SCH ×2 (08:04→21:23)
[2018-08-21] MEDS: CLOPIDOGREL 75 MG TAB PO SCH ×2 (08:04→16:59)
[2018-08-21] MEDS: SYMBICORT 160-4.5 MCG INHALER INHALATION SCH ×2 (08:58→20:01)
[2018-08-21] MEDS: IPRATROPIUM-ALBUTEROL 3 ML NEB INHALATION SCH ×4 (08:58→20:01)
[2018-08-21 11:35] LABS: Glucose,Whole Blood 92 mg/dL (75-99)
--- NOTE | 2018-08-21 12:03 | P.PN ---
Subjective Progress Note Date: 08/21/18 Principal diagnosis: Urinary tract infection, sepsis, abdominal pain In follow-up today patient is complaining of oliguria, abdominal pain is persistent. She denies dysuria, hematuria or back pain. Objective - Vital Signs Vital signs: Vital Signs Temp 98.8 F 08/21/18 05:00 Pulse 88 08/21/18 09:10 Resp 20 08/21/18 05:00 BP 118/55 08/21/18 05:00 Pulse Ox 98 08/21/18 05:00 Intake & Output 08/20/18 08/21/18 08/21/18 18:59 06:59 18:59 Intake Total 1520 880 Output Total 240 2998 Balance 1280 -2118 Weight 54.431 kg Intake: Intake, IV Titration 1520 480 Amount Sodium Chloride 0.9% 1, 420 480 000 ml @ 60 mls/hr IV . [id number] [facility] Rx#:[id number] Sodium Chloride 0.9% 1, 1000 000 ml @ 999 mls/hr IV . Q1H1M [facility] Rx#:[id number] metroNIDAZOLE-NS PMX 500 100 mg In Saline 1 100ml.bag @ 100 mls/hr IVPB Q8H [facility] Rx#:[id number] Oral 400 Output: Urine 1950 Straight 1350 Post Void Residual 240 1048 Other: Voiding Method Toilet Toilet Toilet # Voids 1 - Constitutional General appearance: Present: average body habitus, cooperative, no acute distress - EENT Eyes: Present: anicteric sclerae, EOMI ENT: Present: hearing grossly normal - Respiratory Details: Respirations even and unlabored - Cardiovascular Details: Skin is warm and dry, radial pulses 2+ - Gastrointestinal General gastrointestinal: Present: distended, normal bowel sounds, soft, tenderness. Absent: absent bowel sounds, decreased bowel sounds, hepatomegaly, hyperactive bowel sounds, organomegaly, rigid, scaphoid, splenomegaly, umbilical hernia, ventral hernia Localized gastrointestinal: tender: diffuse - Neurologic Neurologic: Present: CNII-XII intact - Musculoskeletal Musculoskeletal: Present: strength equal bilaterally - Psychiatric Psychiatric: Present: A&O x's 3, appropriate affect, intact judgment & insight - Labs CBC & Chem 7: 08/20/18 06:47 08/20/18 06:47 Labs: Abnormal Lab Results - Last 24 Hours (Table) 08/19/18 08/20/18 08/20/18 Range/Units 02:05 17:15 18:15 POC Glucose (mg/dL) 220 H (75-99) mg/dL Hemoglobin A1c 11.6 H (4.0-6.0) % Urine Appearance Cloudy H (Clear) Urine Protein Trace H (Negative) Urine Glucose (UA) 4+ H (Negative) Ur Leukocyte Esterase Large H (Negative) Urine WBC >182 H (0-5) /hpf Ur Squamous Epith Cells 7 H (0-4) /hpf Amorphous Sediment Rare H (None) /hpf Urine Mucus Rare H (None) /hpf 08/20/18 Range/Units 19:52 POC Glucose (mg/dL) 208 H (75-99) mg/dL Hemoglobin A1c (4.0-6.0) % Urine Appearance (Clear) Urine Protein (Negative) Urine Glucose (UA) (Negative) Ur Leukocyte Esterase (Negative) Urine WBC (0-5) /hpf Ur Squamous Epith Cells (0-4) /hpf Amorphous Sediment (None) /hpf Urine Mucus (None) /hpf Microbiology - Last 24 Hours (Table) 08/20/18 18:15 Urine Culture - Preliminary Urine,Clean Catch 08/19/18 02:05 Urine Culture - Final Urine,Voided Escherichia coli 08/19/18 03:06 Blood Culture - Preliminary Blood No Growth after 48 hours Assessment and Plan (1) Adrenal mass, left Narrative/Plan: Pending results of MRI. Attending has ordered biopsy. Current Visit: Yes Status: Chronic Priority: Low Code(s): E27.9 - DISORDER OF ADRENAL GLAND, UNSPECIFIED SNOMED Code(s): 856290927 (2) Mass of pancreas Narrative/Plan: On review of medical record back to 2014, imaging describes the mass in the head of the pancreas is being as largest 6 mm, currently is measuring 4.8 mm. Pending biopsy of adrenal mass and MRI of the abdomen. May consider a PET scan in the outpatient setting. Current Visit: Yes Status: Chronic Priority: Medium Code(s): K86.9 - DISEASE OF PANCREAS, UNSPECIFIED SNOMED Code(s): 361544229 (3) Squamous cell lung cancer Narrative/Plan: History of, diagnosed and treated one year ago with resection, no adjuvant treatment, patient has never seen a medical oncologist. Current Visit: No Status: Chronic Priority: Low Code(s): C34.90 - MALIGNANT NEOPLASM OF UNSP PART OF UNSP BRONCHUS OR LUNG SNOMED Code(s): 901226024
--- NOTE | 2018-08-21 12:27 | MR ---
MR abdomen with and without contrast HISTORY: Abdomen pain in left adrenal mass, pancreatic head mass Multiplanar multisequence and postcontrast imaging obtained through the abdomen following 5.5 cc Gada vist IV. Correlation CT abdomen pelvis 08/19/2018, CT abdomen pelvis 09/12/2017 The left adrenal mass is show signal drop on out of phase imaging compatible with adrenal adenomas an d are felt to be stable compared to previous CT exams, lesions measure approximately 2.[address] transverse dimension and 19 mm in greatest transverse dimension, bilobed appearance is stable and. No evident pancreatic head mass. Patient is status post cholecystectomy. Prominent common bile duct is likely due to post cholecystectomy change. Liver shows no mass. Spleen is normal. Cortical cyst as sociated with the left kidney measures approximately 4.1 cm, smaller cortical cysts are present, subc entimeter in size bilaterally. The right adrenal gland is unremarkable. Small basilar effusions are present. There is associated atelectasis. Aorta shows normal caliber. No evident retroperitoneal adenopathy or ascites. No bowel obstruction. Stomach shows an unremarkable ap pearance. IMPRESSION: Left adrenal mass is compatible with adenomas. No evident pancreatic head mass. Additiona l findings above.
--- NOTE | 2018-08-21 12:40 | P.GSCN ---
History of Present Illness Consult date: 08/21/18 Reason for Consult: Urinary retention History of present illness: The patient is a 67-year-old female admitted on 08/20 due to possible sepsis re lated to a urinary tract infection. She says that she has a history of lower abdominal pain and was treated 2 times with antibiotics in July by Dr. Jade without improvement. At the time of her admission a urinalysis suggested a urinary tract infection and she has been started on ceftriaxone. Urine culture has confirmed E. coli which is sensitive to ceftriaxone. Since the patient was admitted she has continued to have lower abdominal discomfort. Bladder scans have shown over 500 mL and she has been treated with intermittent catheterization. I was asked to see the patient for further evaluation. Patient has a history of urinary retention which occurred one year ago following left upper lobectomy for treatment of lung cancer. She was seen by Dr. Serra at that time and seemed to be doing better at the time of discharge. More recently she says she has been voiding every hour during the day and at least 4 or 5 times at night. She complains of sensations of incomplete bladder e mptying. She denied any dysuria at the time of admission. She says that her bowels have been moving normally and in fact she had some diarrhea prior to admission. She denies any incontinence. Review of Systems - Constitutional Reports weakness - Cardiovascular Reports shortness of breath - Gastrointestinal Reports abdominal pain, Denies constipation - Genitourinary Genitourinary: Reports incomplete emptying, Reports urinary frequency, Denies hematuria Past Medical History Past Medical History: Coronary Artery Disease (CAD), Cancer, Diabetes Mellitus, Fibromyalgia, GERD/Reflux, Myocardial Infarction (CT) Additional Past Medical History / Comment(s): Idiopathic thrombocytopenia pu rpura, IBS, diverticulitis, hiatal hernia, 2 herniated discs-L3/L4, Restless Leg Syndrome, gastritis, superficial gastric ulcers. nodule on lt lung-Cancer Stg 1 Last Myocardial Infarction Date:: 01/2017 History of Any Multi-Drug Resistant Organisms: None Reported Past Surgical History: Adenoidectomy, Bladder Surgery, Bowel Resection, Cholecystectomy, Heart Catheterization With Stent, Hernia Repair, Hysterectomy, Tonsillectomy Additional Past Surgical History / Comment(s): BLADDER SUSPENSION x 2, breast biopsy x3, bowel resection due to rupture. left upper lobe of lung removed per CA Past Anesthesia/Blood Transfusion Reactions: No Reported Reaction Additional Past Anesthesia/Blood Transfusion Reaction / Comm: Pt received blood in 2005 due to ITP without reaction. Date of Last Stent Placement:: 01/2017 Past Psychological History: Anxiety Additional Psychological History / Comment(s): . Smoking Status: Current some day smoker Past Alcohol Use History: None Reported Additional Past Alcohol Use History / Comment(s): STARTED SMOKING AT AGE 18- SMOKED 1PPD AND QUIT -2017 Past Drug Use History: None Reported - Past Family History Mother Family Medical History: Cancer, Diabetes Mellitus Additional Family Medical History / Comment(s): Father had a defibrillator. He of heart dx in his 80's Father Family Medical History: Diabetes Mellitus Additional Family Medical History / Comment(s): HEART DISEASE Medications and Allergies Home Medications Medication Instructions Recorded Confirmed Type ALPRAZolam 0.25 mg PO BID PRN 11/03/15 08/19/18 History Insulin Detemir (Levemir) [Levemir] 30 unit SQ BID 11/09/15 08/19/18 History Solifenacin Succinate [Vesicare] 10 mg PO HS 04/12/16 08/19/18 History rOPINIRole HCL [Requip] 0.25 mg PO HS 04/12/16 08/19/18 History Pantoprazole [Protonix] 40 mg PO QAM PRN 01/14/17 08/19/18 History Aspirin 81 mg PO DAILY chew 01/17/17 08/19/18 Rx Metoprolol Tartrate [Lopressor] 25 mg PO BID #60 tab 01/17/17 08/19/18 Rx Nitroglycerin Sl Tabs [Nitrostat] 0.4 mg SUBLINGUAL Q5M PRN #21 tab 01/17/17 08/19/18 Rx Clopidogrel Bisulfate [Plavix] 75 mg PO DAILY 06/26/17 08/19/18 History Atorvastatin [Lipitor] 80 mg PO DAILY 08/31/17 08/19/18 History Budesonide-Formot 160-4.5 Mcg 2 puff INHALATION RT-BID 08/31/17 08/19/18 History [Symbicort 160-4.5 Mcg Inhaler] Ipratropium/Albuterol Sulfate 1 puff INHALATION RT-QID 08/31/17 08/19/18 History [Combivent Respimat Inhaler] Lisinopril [Prinivil] 5 mg PO BID 08/31/17 08/19/18 History Tamsulosin [Flomax] 0.4 mg PO DAILY #30 cap.er.24h 09/22/17 08/19/18 Rx INSULIN ASPART (NovoLOG) [NovoLOG 6 unit SQ AC-TID vial 09/28/17 08/19/18 Rx (formulary)] Melatonin 3 mg PO HS tablet 09/28/17 08/19/18 Rx Loperamide [Imodium] 2 mg PO QID 05/09/18 08/19/18 History HYDROcodone/APAP 10-325MG [[place] 1 tab PO TID PRN 08/19/18 08/19/18 History 10-325] Allergies Allergy/AdvReac Type Severity Reaction Status Date / Time No Known Allergies Allergy Verified 08/19/18 07:41 Surgical - Exam Vital Signs Temp Pulse Resp BP Pulse Ox 98.7 F 109 H 20 96/59 96 08/19/18 01:41 08/19/18 01:41 08/19/18 01:41 08/19/18 01:41 08/19/18 01:41 - General no distress - ENT no hearing loss - Abdomen Abdomen: soft, non tender, no organomegaly - Genitourinary normal external genitalia, normal perineum, other (Grade 1-2 cystocele) Results - Labs 08/20/18 06:47 08/20/18 06:47 Abnormal Lab Results - Last 24 Hours (Table) 08/20/18 08/20/18 08/20/18 Range/Units 17:15 18:15 19:52 POC Glucose (mg/dL) 220 H 208 H (75-99) mg/dL Urine Appearance Cloudy H (Clear) Urine Protein Trace H (Negative) Urine Glucose (UA) 4+ H (Negative) Ur Leukocyte Esterase Large H (Negative) Urine WBC >182 H (0-5) /hpf Ur Squamous Epith Cells 7 H (0-4) /hpf Amorphous Sediment Rare H (None) /hpf Urine Mucus Rare H (None) /hpf Microbiology - Last 24 Hours (Table) 08/20/18 18:15 Urine Culture - Preliminary Urine,Clean Catch 08/19/18 02:05 Urine Culture - Final Urine,Voided Escherichia coli 08/19/18 03:06 Blood Culture - Preliminary Blood No Growth after 48 hours Assessment and Plan (1) Urinary retention with incomplete bladder emptying Narrative/Plan: The patient's incomplete bladder emptying is chronic. It may have complicated outpatient management of her urinary tract infection earlier this month. I discussed self catheterization with the patient and she says that she would be willing to try this. She does have an E. coli urinary tract infection which is sensitive to her current antibiotic. Computed tomography scan of the abdomen and pelvis and MRI of the abdomen showed a benign left renal cyst and what appears to be a benign adenoma of the left kidney. Neither of these are significantly changed from a previous computed tomography scan. Current Visit: No Status: Resolved Code(s): R33.9 - RETENTION OF URINE, UNSPECIFIED SNOMED Code(s): 139933270
--- NOTE | 2018-08-21 14:35 | P.PN ---
Subjective Progress Note Date: 08/21/18 Patient seen and examined at bedside and follow-up, daughter present. Nursing reporting borderline blood pressures early this morning, the patient appears asymptomatic no lightheadedness headaches or dizziness/. Patient continues to have lower/suprapubic abdominal pain and is exquisitely tender on exam, patient has been having sensation of incomplete voiding. C. diff was ordered but has not been sent secondary to the patient's diarrhea resolving, Patient denies any nausea. Daughter with multiple questions regarding patient's left adrenal mass underwent biopsy will be taken. Patient seen by oncology and general surgery. Objective - Vital Signs Vital signs: Vital Signs Temp 97.5 F L 08/21/18 11:40 Pulse 93 08/21/18 11:40 Resp 20 08/21/18 11:40 BP 119/60 08/21/18 11:40 Pulse Ox 96 08/21/18 11:40 Intake & Output 08/20/18 08/21/18 08/21/18 18:59 06:59 18:59 Intake Total 5030 621 0363 Output Total 240 2998 Balance 1280 -2118 1080 Weight 54.431 kg Intake: Intake, IV Titration 1520 480 480 Amount Sodium Chloride 0.9% 1, 420 480 480 000 ml @ 60 mls/hr IV . [id number] [facility] Rx#:[id number] Sodium Chloride 0.9% 1, 1000 000 ml @ 999 mls/hr IV . Q1H1M [facility] Rx#:[id number] metroNIDAZOLE-NS PMX 500 100 mg In Saline 1 100ml.bag @ 100 mls/hr IVPB Q8H [facility] Rx#:[id number] Oral 400 600 Output: Urine 1950 Straight 1350 Post Void Residual 240 1048 Other: Voiding Method Toilet Toilet Toilet # Voids 1 2 - Exam Constitutional: No acute distress, conversant, pleasant Eyes: Anicteric sclerae, moist conjunctiva, no lid-lag, PERRLA ENMT: NC/AT,Oropharynx clear, no erythema, exudates Neck:Supple, FROM, no masses, or JVD, No carotid bruits; No thyromegaly Lungs: Clear to auscultation, Clear to percussion, Normal respiratory effort, no accessory muscle use Cardiovascular: Heart regular in rate and rhythm, No murmurs, gallops, or rubs no peripheral edema Abdominal: Soft tender to palpation in the lower abdomen suprapubic area, nondistended, Normoactive bowel sounds No hepatomegaly Skin: Normal temperature, tone, texture, turgor, No induration No subcutaneous nodules, No rash, lesions, No ulcers Extremities:No digital cyanosis No clubbing, Pedal pulses intact and symmetrical Radial pulses intact and symmetrical Normal gait and station, No calf tenderness Psychiatric: Alert and oriented to person, place and time, Appropriate affect Intact judgement Neuro: Muscles Strength 5/5 in all 4 extremities, Sensation to light touch grossly present throughout, Cranial nerves II-XII grossly intact. No focal sensory deficits - Labs CBC & Chem 7: 08/20/18 06:47 08/20/18 06:47 Labs: Abnormal Lab Results - Last 24 Hours (Table) 08/20/18 08/20/18 08/20/18 Range/Units 17:15 18:15 19:52 POC Glucose (mg/dL) 220 H 208 H (75-99) mg/dL Urine Appearance Cloudy H (Clear) Urine Protein Trace H (Negative) Urine Glucose (UA) 4+ H (Negative) Ur Leukocyte Esterase Large H (Negative) Urine WBC >182 H (0-5) /hpf Ur Squamous Epith Cells 7 H (0-4) /hpf Amorphous Sediment Rare H (None) /hpf Urine Mucus Rare H (None) /hpf Microbiology - Last 24 Hours (Table) 08/20/18 18:15 Urine Culture - Preliminary Urine,Clean Catch 08/19/18 02:05 Urine Culture - Final Urine,Voided Escherichia coli 08/19/18 03:06 Blood Culture - Preliminary Blood No Growth after 48 hours Assessment and Plan (1) Sepsis Narrative/Plan: * Leukocytosis has resolved patient afebrile * Secondary to E. coli UTI superimposed on acute diverticulitis * Blood cultures have been negative, unable to obtain C. diff has diarrhea has resolved Current Visit: Yes Status: Resolved Code(s): A41.9 - SEPSIS, UNSPECIFIED ORGANISM SNOMED Code(s): 98143533 (2) UTI (urinary tract infection) Narrative/Plan: * Urine cultures positive for E. coli * Resistant to penicillins and cody quinolones and Bactrim * Continue treatment with IV Rocephin Current Visit: Yes Status: Acute Code(s): N39.0 - URINARY TRACT INFECTION, SITE NOT SPECIFIED SNOMED Code(s): 59955797 (3) Diverticulitis Narrative/Plan: * Continue treatment with Flagyl * unable to obtain C. diff as diarrhea has resolved Current Visit: Yes Status: Acute Code(s): K57.92 - DVTRCLI OF INTEST, PART UNSP, W/O PERF OR ABSCESS W/O BLEED SNOMED Code(s): 982513640 (4) Type 2 diabetes mellitus with hyperglycemia Current Visit: Yes Status: Acute Code(s): E11.65 - TYPE 2 DIABETES MELLITUS WITH HYPERGLYCEMIA SNOMED Code(s): 297201693653376 (5) Abdominal pain Narrative/Plan: * Likely secondary to UTI superimposed on diverticulitis * Continue current management * We'll discontinue IV morphine and transitioned to hydrocodone Current Visit: No Status: Acute Code(s): R10.9 - UNSPECIFIED ABDOMINAL PAIN SNOMED Code(s): 80105608 (6) Adrenal mass, left Narrative/Plan: * Appreciate oncology recommendations, MRI of the abdomen showing adenomas * IR unable to complete biopsy today as patient has previously been on eliquis and Plavix which mostly to be held for 7 days * Radiology reporting no significant changes in that it looks like adenomas with low suspicion recommend biopsy only if abnormal PET scan * PET scan to be arranged by oncology in the outpatient setting Current Visit: Yes Status: Chronic Priority: Low Code(s): E27.9 - DISORDER OF ADRENAL GLAND, UNSPECIFIED SNOMED Code(s): 335771449 (7) Urinary retention Narrative/Plan: * Chronic patient on Flomax at home and that has been continued here * Bladder scan showing increased retention post void residuals * plan to consult urology for further recommendations, will continue straight caths for now and follow up urology recommendation Current Visit: Yes Status: Acute Code(s): R33.9 - RETENTION OF URINE, UNSPECIFIED SNOMED Code(s): 136526636 Plan: Disposition * Anticipated discharge 1-2 days * Follow-up recommendations from urology apparently they ordered the patient have a Pino catheter as she was resistant and had a straight cath * Transition to oral antibiotics in the morning * And daughter updated with findings and plan of care and voiced understanding
[2018-08-21] MEDS: SODIUM CHLORIDE 0.9% 1,000 ML IV SCH (17:01)
[2018-08-21 17:14] LABS: Glucose,Whole Blood 202 mg/dL (75-99)
[2018-08-21 20:05] LABS: Glucose,Whole Blood 258 mg/dL (75-99)
[2018-08-21] MEDS: MELATONIN 3 MG TABLET PO SCH (21:27)
[2018-08-22] MEDS: HYDROcodone/APAP 7.5-325MG 1 EACH TAB PO PRN ×2 (02:17→07:57)
[2018-08-22] MEDS: SODIUM CHLORIDE 0.9% 1,000 ML IV SCH ×2 (02:19→09:49)
[2018-08-22] MEDS: metroNIDAZOLE 500 MG TAB PO SCH ×2 (04:46→12:37)
[2018-08-22 06:57] LABS: Glucose,Whole Blood 74 mg/dL (75-99)
[2018-08-22] MEDS: INSULIN ASPART (NovoLOG) 100 UNIT/ML VIAL SQ SCH ×2 (07:29→12:37)
[2018-08-22] MEDS: HEPARIN SODIUM,PORCINE 5,000 UNIT/ML 1 ML VIAL SQ SCH (07:57)
[2018-08-22] MEDS: TAMSULOSIN 0.4 MG CAP.ER.24H PO SCH (08:00)
[2018-08-22] MEDS: ATORVASTATIN 80 MG TAB PO SCH (08:00)
[2018-08-22] MEDS: CLOPIDOGREL 75 MG TAB PO SCH (08:00)
[2018-08-22] MEDS: INSULIN DETEMIR (LEVEMIR) 100 UNIT/ML SYR SQ SCH (08:01)
[2018-08-22] MEDS: guaiFENesin 600 MG TABLET.ER PO SCH (08:01)
[2018-08-22] MEDS: TROSPIUM CHLORIDE 20 MG TABLET PO SCH (08:01)
[2018-08-22] MEDS: SYMBICORT 160-4.5 MCG INHALER INHALATION SCH (08:30)
[2018-08-22] MEDS: IPRATROPIUM-ALBUTEROL 3 ML NEB INHALATION SCH ×3 (08:30→15:57)
[2018-08-22] MEDS ORDERED: ASPIRIN 81 MG PO SCH (09:00)
[2018-08-22 11:05] LABS: Glucose,Whole Blood 153 mg/dL (75-99)
[2018-08-22 11:21] LABS: Metanephrines 24 Hour,Urine 71 ug/day (52-341); Normetanephrine 24 Hour,Urine 286 ug/day (88-444); Total Metanephrines 24 Hour,Ur 357 ug/day (140-785)
[2018-08-22 11:45] VITALS: BP 137/70; RESP 17; TEMP 98.5
[2018-08-22 16:07] VITALS: PULSE 84
--- NOTE | 2018-08-22 19:22 | P.PN ---
Subjective Progress Note Date: 08/22/18 Principal diagnosis: Urinary tract infection, sepsis, abdominal pain In follow-up today patient is feeling much better. She has been seen by urology and has a plan for her oliguria, her abdominal discomfort is better than on admission, no nausea, vomiting, diarrhea or constipation. She is independently ambulatory, she is eating and drinking without difficulties Objective - Vital Signs Vital signs: Vital Signs Temp 98.5 F 08/22/18 11:40 Pulse 84 08/22/18 16:06 Resp 17 08/22/18 11:40 BP 137/70 08/22/18 11:40 Pulse Ox 95 08/22/18 11:40 Intake & Output 08/22/18 08/22/18 08/23/18 06:59 18:59 06:59 Intake Total 1720 790 Output Total 3000 300 Balance -1280 490 Intake: Intake, IV Titration 540 Amount Sodium Chloride 0.9% 1, 540 000 ml @ 60 mls/hr IV . [id number] REY Rx#:[id number] Oral 1180 790 Output: Urine 3000 300 Uretheral (Pino) 3000 300 Other: Voiding Method Indwelling Catheter Indwelling Catheter # Voids 2 - Constitutional General appearance: Present: average body habitus, cooperative, no acute distress - EENT Eyes: Present: anicteric sclerae, EOMI ENT: Present: hearing grossly normal - Respiratory Respiratory: bilateral: CTA - Cardiovascular Heart sounds: normal: S1, S2 - Peripheral edema leg Peripheral Edema: bilateral: None - Gastrointestinal General gastrointestinal: Present: soft, tenderness - Neurologic Neurologic: Present: CNII-XII intact - Musculoskeletal Musculoskeletal: Present: strength equal bilaterally - Psychiatric Psychiatric: Present: A&O x's 3, appropriate affect, intact judgment & insight - Labs CBC & Chem 7: 08/20/18 06:47 08/20/18 06:47 Labs: Abnormal Lab Results - Last 24 Hours (Table) 08/20/18 08/21/18 08/22/18 Range/Units 13:45 20:04 06:55 POC Glucose (mg/dL) 258 H 74 L (75-99) mg/dL U Creatinine 24h Metane 0.7 L (0.8-1.8) gm/24h 08/22/18 Range/Units 11:03 POC Glucose (mg/dL) 153 H (75-99) mg/dL U Creatinine 24h Metane (0.8-1.8) gm/24h Microbiology - Last 24 Hours (Table) 08/20/18 18:15 Urine Culture - Final Urine,Clean Catch 08/19/18 03:06 Blood Culture - Preliminary Blood No Growth after 72 hours - Imaging and Cardiology MRI - abdomen: report reviewed Assessment and Plan (1) Adrenal mass, left Narrative/Plan: MRI report reviewed with patient. The mass in the adrenal gland is being reported as an adenoma, not much changed in the last for 5 years. No biopsy is planned at this time. This area will continue to be monitored. Status: Chronic Priority: Low Code(s): E27.9 - DISORDER OF ADRENAL GLAND, UNSPECIFIED SNOMED Code(s): 491933015 (2) Mass of pancreas Narrative/Plan: No pancreatic mass noted on MRI Status: Chronic Priority: Medium Code(s): K86.9 - DISEASE OF PANCREAS, UNSPECIFIED SNOMED Code(s): 247534430 (3) Squamous cell lung cancer Narrative/Plan: History of, diagnosed and treated one year ago with resection, no adjuvant treatment, patient has never seen a medical oncologist. She has an appointment to be seen in our office so that she can be on follow-up as directed by NCCN guidelines. Status: Chronic Priority: Low Code(s): C34.90 - MALIGNANT NEOPLASM OF UNSP PART OF UNSP BRONCHUS OR LUNG SNOMED Code(s): 481961104
--- NOTE | 2018-08-23 06:24 | DS ---
DISCHARGE SUMMARY DATE OF ADMISSION: 08/19/2018 DATE OF DISCHARGE: 08/22/2018 FINAL DIAGNOSES: 1. Acute urinary tract infection with cystitis from Escherichia coli. 2. Coronary artery disease with stent. 3. Diabetes mellitus type 2, chronically on insulin. 4. Chronic fibromyalgia. 5. Gastroesophageal reflux disease. 6. Idiopathic thrombocytopenia purpura. 7. Irritable bowel syndrome. 8. Hiatal hernia. 9. Chronic herniated disc at L3-L4. 10.Restless legs syndrome. 11.Gastritis. HOSPITAL COURSE: This patient with lower abdominal pain, felt to be more of cystitis with urine culture coming back positive for E coli. The patient is having a bladder outflow obstruction and patient will be going home with straight catheterization as per Dr. Dutton. Patient is also on Flomax. The patient did undergo a CT scan of the abdomen and pelvis. There was left adrenal mass 2.2 cm. Seen by the oncology team of Dr. Webster. They will follow up as an outpatient and decide about biopsy if needed. In the meantime, we will also get an outpatient endocrinology opinion. Otherwise, patient tolerating a diet. Care was discussed at length with the patient. Also talked about straight catheterization. Patient was seen by Dr. Patino from General Surgery too, not for further intervention. CT scan was suggestive of some colitis, but that does not appear to be the case clinically, probably more of cystitis with urinary symptoms. On examination, temperature 98.5, pulse 96, respiration 17, blood pressure 137/70, pulse ox 95% on room air. Minimal suprapubic tenderness. LUNGS: Clear. INVESTIGATIONS: Accu-Cheks are noted. Urine culture as above. White count is 8.9. BUN 10, creatinine 0.48. CONSULTATION: Dr. Webster from Hematology; Dr. Dutton from Urology; Dr. Patino from General Surgery. DISCHARGE MEDICATIONS: 1. Xanax 0.25 p.o. b.i.d. p.r.n. 2. VESIcare 10 mg q.h.s. 3. Requip 0.25 p.o. q.h.s. 4. Protonix 40 mg p.o. daily p.r.n. 5. Aspirin 81 mg daily. 6. Nitrostat 0.4 sublingual q.5 p.r.n. 7. Plavix 75 mg p.o. daily. 8. Lipitor 80 mg p.o. daily. 9. Symbicort 160/4.5 two puffs b.i.d. 10.Combivent 1 puff q.i.d. 11.Flomax 0.4 mg p.o. daily. 12.NovoLog 6 units subcu a.c. t.i.d. 13.Melatonin 3 mg q.h.s. 14.Archer 10 one tablet t.i.d. p.r.n. 15.Keflex 250 mg q.6, twenty-eight capsules. 16.Levemir 40 units subcu q.h.s. 17.Prinivil 5 mg p.o. daily. 18.Lopressor 12.5 p.o. b.i.d. Follow up with Dr. Webster on 10/08/2018. Follow up with Dr. Dutton in 1 week; Dr. Oracio Brock in [place] on 08/29/2018. Follow up with Dr. Kori Sparks on 08/26/2018 for the adrenal mass. The patient's medications discussed with the patient. Discussion and discharge planning more than 35 minutes. MMODL / IJN: [id number] /
[2018-08-23 14:44] LABS: Dopamine 24 Hr Urine 176 ug/day (65-400); Epinephrine 24 Hr Urine 6 ug/day (0-20); Norepinephrine 24 Hr Urine 24 ug/day (15-80); Total Catecholamines Urine 30 ug/day (15-100); Urine Creatinine,24 Hr 0.7 gm/24h (0.8-1.8)
== END 2018-08-22 17:36 | disposition home or self-care (01) | DRG 872 ==
LOC: EC 01:31 → 3NMEDONC 06:52 → OBSVTOIN 08-20 09:02
PROVIDERS: ADMIT Hospitalist; ATTEND Hospitalist
DX: A41.51 Sepsis due to Escherichia coli [E. coli] (principal); N39.0 Urinary tract infection, site not specified; C34.12 Malignant neoplasm of upper lobe, left bronchus or lung; D69.3 Immune thrombocytopenic purpura; K57.92 Diverticulitis of intestine, part unspecified, without perforation or abscess without bleeding; F17.210 Nicotine dependence, cigarettes, uncomplicated; E11.42 Type 2 diabetes mellitus with diabetic polyneuropathy; E11.43 Type 2 diabetes mellitus with diabetic autonomic (poly)neuropathy; E11.65 Type 2 diabetes mellitus with hyperglycemia; E27.8 Other specified disorders of adrenal gland; F41.9 Anxiety disorder, unspecified; G25.81 Restless legs syndrome; I25.10 Atherosclerotic heart disease of native coronary artery without angina pectoris; I25.2 Old myocardial infarction; J44.9 Chronic obstructive pulmonary disease, unspecified; K21.9 Gastro-esophageal reflux disease without esophagitis; K31.84 Gastroparesis; K58.9 Irritable bowel syndrome, unspecified; K86.9 Disease of pancreas, unspecified; M79.7 Fibromyalgia; N28.1 Cyst of kidney, acquired; Z79.02 Long term (current) use of antithrombotics/antiplatelets; Z79.4 Long term (current) use of insulin; Z79.51 Long term (current) use of inhaled steroids; Z79.82 Long term (current) use of aspirin; Z79.899 Other long term (current) drug therapy; Z83.3 Family history of diabetes mellitus; Z87.11 Personal history of peptic ulcer disease; Z90.2 Acquired absence of lung [part of]; Z90.49 Acquired absence of other specified parts of digestive tract; Z90.710 Acquired absence of both cervix and uterus; Z95.5 Presence of coronary angioplasty implant and graft; R33.9 Retention of urine, unspecified; Z80.9 Family history of malignant neoplasm, unspecified
CPT/HCPCS: 36415; 71046; 74177; 74183; 80048; 80053; 81001; 82088; 82384; 83036; 83605; 83690; 83835; 84244; 84484; 85025; 87040; 87077; 87086; 87186; 94640; 96361; 96365; 96375; 99285

== ENCOUNTER 2018-08-27 15:00 | Observation (INO) | payer MEDICARE, OTHER ==
[2018-08-27] MEDS ORDERED: NITROGLYCERIN OINT 1 INCH/GM PACKET TOPICAL STA (16:37)
[2018-08-27] MEDS ORDERED: ASPIRIN 81 MG PO STA (16:37)
[2018-08-27 16:49] LABS: Basophils % (A) 0 %; Eosinophils # (A) 0.2 k/uL (0-0.7); Eosinophils % (A) 2 %; HGB 13.4 gm/dL (11.4-16.0); Lymphocytes # (A) 2.3 k/uL (1.0-4.8); Lymphocytes % (A) 19 %; MCHC 31.1 g/dL (31.0-37.0); MCV 86.9 fL (80.0-100.0); Mean Platelet Volume 7.3; Monocytes # (A) 0.7 k/uL (0-1.0); Monocytes % (A) 6 %; Neutrophils # (A) 8.7 k/uL (1.3-7.7); Neutrophils % (A) 72 %; Platelet Count 469 k/uL (150-450); RBC 4.95 m/uL (3.80-5.40); RDW 14.8 % (11.5-15.5); WBC 12.2 k/uL (3.8-10.6)
--- NOTE | 2018-08-27 16:51 | ED ---
General Adult HPI - General Chief complaint: Chest Pain Time Seen by Provider: 08/27/18 16:45 Source: patient, RN notes reviewed - History of Present Illness Initial comments: This is a 67-year-old female who presents to the emergency department with a past medical history significant for heart attack as well as lung cancer with lobectomy. Patient comes in today because she had severe chest pain was likely radiated into her left arm. Patient describes it as a heaviness. Patient states the chest pain was improved with nitroglycerin but the pain in the arm never went away. Patient states she continues to have a heaviness in the arm and it actually now hurts to move her arm though she states she has full range of motion of the arm. Patient denies any chest pain currently patient denies any shortness of breath while she was having the pain. Patient denies any diaphoretic episodes the pain. Patient denies any recent fever chills or cough per patient denies headache patient denies numbness or weakness per patient states she was recently in the hospital for sepsis from a urinary tract infection. - Related Data Home Medications Medication Instructions Recorded Confirmed ALPRAZolam 0.25 mg PO BID PRN 11/03/15 08/27/18 Solifenacin Succinate [Vesicare] 10 mg PO HS 04/12/16 08/27/18 rOPINIRole HCL [Requip] 0.25 mg PO HS 04/12/16 08/27/18 Pantoprazole [Protonix] 40 mg PO QAM PRN 01/14/17 08/27/18 Clopidogrel Bisulfate [Plavix] 75 mg PO DAILY 06/26/17 08/27/18 Atorvastatin [Lipitor] 80 mg PO DAILY 08/31/17 08/27/18 Budesonide-Formot 160-4.5 Mcg 2 puff INHALATION RT-BID 08/31/17 08/27/18 [Symbicort 160-4.5 Mcg Inhaler] Ipratropium/Albuterol Sulfate 1 puff INHALATION RT-QID 08/31/17 08/27/18 [Combivent Respimat Inhaler] HYDROcodone/APAP 10-325MG [Colton 1 tab PO TID PRN 08/19/18 08/27/18 10-325] Insulin Detemir (Levemir) [Levemir] 30 unit SQ DAILY@1200 08/27/18 08/27/18 Previous Rx's Medication Instructions Recorded Aspirin 81 mg PO DAILY chew 01/17/17 Nitroglycerin Sl Tabs [Nitrostat] 0.4 mg SUBLINGUAL Q5M PRN #21 tab 01/17/17 Tamsulosin [Flomax] 0.4 mg PO DAILY #30 cap.er.24h 09/22/17 INSULIN ASPART (NovoLOG) [NovoLOG 6 unit SQ AC-TID vial 09/28/17 (formulary)] Melatonin 3 mg PO HS tablet 09/28/17 Cephalexin [Keflex] 250 mg PO Q6HR #28 cap 08/22/18 Lisinopril [Prinivil] 5 mg PO DAILY@1300 #0 08/22/18 Metoprolol Tartrate [Lopressor] 12.5 mg PO BID #60 tab 08/22/18 Allergies Allergy/AdvReac Type Severity Reaction Status Date / Time No Known Allergies Allergy Verified 08/27/18 16:57 Review of Systems ROS Statement: Those systems with pertinent positive or pertinent negative responses have been documented in the HPI. ROS Other: All systems not noted in ROS Statement are negative. Past Medical History Past Medical History: Coronary Artery Disease (CAD), Diabetes Mellitus, Fibromyalgia, GERD/Reflux, Myocardial Infarction (ND) Additional Past Medical History / Comment(s): Idiopathic thrombocytopenia purpura, IBS, diverticulitis, hiatal hernia, 2 herniated discs-L3/L4, Restless Leg Syndrome, gastritis, superficial gastric ulcers. nodule on lt lung-Cancer Stg 1 Last Myocardial Infarction Date:: 01/2017 History of Any Multi-Drug Resistant Organisms: None Reported Past Surgical History: Adenoidectomy, Bladder Surgery, Bowel Resection, Cholecystectomy, Heart Catheterization With Stent, Hernia Repair, Hysterectomy, Tonsillectomy Additional Past Surgical History / Comment(s): BLADDER SUSPENSION x 2, breast biopsy x3, bowel resection due to rupture. left upper lobe of lung removed per CA Past Anesthesia/Blood Transfusion Reactions: No Reported Reaction Additional Past Anesthesia/Blood Transfusion Reaction / Comment(s): Pt received blood in 2005 due to ITP without reaction. Date of Last Stent Placement:: 01/2017 Past Psychological History: Anxiety Smoking Status: Current every day smoker Past Alcohol Use History: None Reported Past Drug Use History: None Reported - Past Family History Mother Family Medical History: Cancer, Diabetes Mellitus Additional Family Medical History / Comment(s): Father had a defibrillator. He of heart dx in his 80's Father Family Medical History: Diabetes Mellitus Additional Family Medical History / Comment(s): HEART DISEASE General Exam - General Exam Comments Initial Comments: GENERAL: Patient is well-developed and well-nourished. Patient is nontoxic and well-hydrated and is in mild distress. ENT: Neck is soft and supple. No significant lymphadenopathy is noted. Oropharynx is clear. Moist mucous membranes. Neck has full range of motion without eliciting any pain. EYES: The sclera were anicteric and conjunctiva were pink and moist. Extraocular movements were intact and pupils were equal round and reactive to light. Eyelids were unremarkable. PULMONARY: Diminished breath sounds on the left.. CARDIOVASCULAR: There is a regular rate and rhythm without any murmurs gallops or rubs. ABDOMEN: Soft and nontender with normal bowel sounds. No palpable organomegaly was noted. There is no palpable pulsatile mass. SKIN: Skin is clear with no lesions or rashes and otherwise unremarkable. NEUROLOGIC: Patient is alert and oriented x3. Cranial nerves II through XII are grossly intact. Motor and sensory are also intact. Normal speech, volume and content. Symmetrical smile. MUSCULOSKELETAL: Normal extremities with adequate strength and full range of motion. No lower extremity swelling or edema. No calf tenderness. LYMPHATICS: No significant lymphadenopathy is noted PSYCHIATRIC: Normal psychiatric evaluation. Course Vital Signs 08/27/18 08/27/18 08/27/18 16:46 17:20 18:57 Temperature Pulse Rate 95 101 H 99 Respiratory 18 18 18 Rate Blood Pressure 118/50 119/53 129/57 O2 Sat by Pulse 96 95 100 Oximetry 08/27/18 19:07 Temperature 100.1 F H Pulse Rate Respiratory Rate Blood Pressure O2 Sat by Pulse Oximetry Medical Decision Making - Medical Decision Making EKG shows sinus tachycardia at 102 bpm [place] interval is on a 58 QRSs 86 QT interval 354 QTC is 461. Patient's EKG shows no ST segment elevation or depression or T wave abnormalities are noted. Chest x-ray shows no acute abnormality. Heparin was started on the patient. I spoke with Dr. Monteiro agreed to admit the patient admitted the patient wrote admitting orders I continued heparin and aspirin and Nitropaste on the floor. I consult cardiology. - Lab Data Result diagrams: 08/27/18 15:46 08/27/18 15:46 Lab Results 08/27/18 08/27/18 08/27/18 Range/Units 15:46 15:46 15:46 WBC 12.2 H (3.8-10.6) k/uL RBC 4.95 (3.80-5.40) m/uL Hgb 13.4 (11.4-16.0) gm/dL Hct 43.0 (34.0-46.0) % MCV 86.9 (80.0-100.0) fL MCH 27.0 (25.0-35.0) pg MCHC 31.1 (31.0-37.0) g/dL RDW 14.8 (11.5-15.5) % Plt Count 469 H (150-450) k/uL Neutrophils % 72 % Lymphocytes % 19 % Monocytes % 6 % Eosinophils % 2 % Basophils % 0 % Neutrophils # 8.7 H (1.3-7.7) k/uL Lymphocytes # 2.3 (1.0-4.8) k/uL Monocytes # 0.7 (0-1.0) k/uL Eosinophils # 0.2 (0-0.7) k/uL Basophils # 0.0 (0-0.2) k/uL PT 9.5 (9.0-12.0) sec INR 0.9 (<1.2) APTT 23.5 (22.0-30.0) sec Sodium 135 L (137-145) mmol/L Potassium 5.3 H (3.5-5.1) mmol/L Chloride 100 (98-107) mmol/L Carbon Dioxide 24 (22-30) mmol/L Anion Gap 11 mmol/L BUN 17 (7-17) mg/dL Creatinine 0.47 L (0.52-1.04) mg/dL Est GFR (CKD-EPI)AfAm >90 (>60 ml/min/1.73 sqM) Est GFR (CKD-EPI)NonAf >90 (>60 ml/min/1.73 sqM) Glucose 240 H (74-99) mg/dL Calcium 9.4 (8.4-10.2) mg/dL Magnesium 1.9 (1.6-2.3) mg/dL Total Bilirubin 0.6 (0.2-1.3) mg/dL AST 29 (14-36) U/L ALT 17 (9-52) U/L Alkaline Phosphatase 119 (38-126) U/L Troponin I (0.000-0.034) ng/mL Total Protein 6.7 (6.3-8.2) g/dL Albumin 3.8 (3.5-5.0) g/dL 08/27/18 Range/Units 15:46 WBC (3.8-10.6) k/uL RBC (3.80-5.40) m/uL Hgb (11.4-16.0) gm/dL Hct (34.0-46.0) % MCV (80.0-100.0) fL MCH (25.0-35.0) pg MCHC (31.0-37.0) g/dL RDW (11.5-15.5) % Plt Count (150-450) k/uL Neutrophils % % Lymphocytes % % Monocytes % % Eosinophils % % Basophils % % Neutrophils # (1.3-7.7) k/uL Lymphocytes # (1.0-4.8) k/uL Monocytes # (0-1.0) k/uL Eosinophils # (0-0.7) k/uL Basophils # (0-0.2) k/uL PT (9.0-12.0) sec INR (<1.2) APTT (22.0-30.0) sec Sodium (137-145) mmol/L Potassium (3.5-5.1) mmol/L Chloride (98-107) mmol/L Carbon Dioxide (22-30) mmol/L Anion Gap mmol/L BUN (7-17) mg/dL Creatinine (0.52-1.04) mg/dL Est GFR (CKD-EPI)AfAm (>60 ml/min/1.73 sqM) Est GFR (CKD-EPI)NonAf (>60 ml/min/1.73 sqM) Glucose (74-99) mg/dL Calcium (8.4-10.2) mg/dL Magnesium (1.6-2.3) mg/dL Total Bilirubin (0.2-1.3) mg/dL AST (14-36) U/L ALT (9-52) U/L Alkaline Phosphatase (38-126) U/L Troponin I <0.012 (0.000-0.034) ng/mL Total Protein (6.3-8.2) g/dL Albumin (3.5-5.0) g/dL Critical Care Time Critical Care Time: Yes Total Critical Care Time: 35 Disposition Clinical Impression: Unstable angina pectoris Disposition: ADMITTED IP TO THIS [facility] Time of Disposition: 18:37
[2018-08-27 16:53] LABS: INR 0.9 (<1.2); Partial Thromboplastin Time 23.5 sec (22.0-30.0); Prothrombin Time 9.5 sec (9.0-12.0)
[2018-08-27 17:03] LABS: ALT 17 U/L (9-52); AST 29 U/L (14-36); African American GFR (CKD) >90 (>60 ml/min/1.73 sqM); Albumin 3.8 g/dL (3.5-5.0); Alkaline Phosphatase 119 U/L (38-126); Anion Gap 11 mmol/L; Blood Urea Nitrogen 17 mg/dL (7-17); Calcium 9.4 mg/dL (8.4-10.2); Carbon Dioxide 24 mmol/L (22-30); Chloride 100 mmol/L (98-107); Glucose 240 mg/dL (74-99); Magnesium 1.9 mg/dL (1.6-2.3); Sodium 135 mmol/L (137-145); Total Bilirubin 0.6 mg/dL (0.2-1.3); Total Protein 6.7 g/dL (6.3-8.2)
[2018-08-27 17:16] LABS: Potassium 5.3 mmol/L (3.5-5.1)
--- NOTE | 2018-08-27 18:29 | XR ---
EXAMINATION: XR chest 2V DATE AND TIME: 08/27/2018 5:34 PM CLINICAL INDICATION: [facility]; Chest Pain TECHNIQUE: Departmental protocol COMPARISON: 08/19/2018 FINDINGS: The previously seen linear band and bulbous left hilar and perihilar opacity is unchanged when compar ed to the prior study. The remainder of the lungs appear similar to the prior study. Pleural space appears negative. Cardiomediastinal silhouette and bones and soft tissues are negative for acute findings. IMPRESSION: Stable thoracic findings; no new process.
[2018-08-27] MEDS ORDERED: HEPARIN SODIUM,PORCINE 5,000 UNIT/ML 1 ML VIAL IV ONE (18:35)
[2018-08-27] MEDS ORDERED: NITROGLYCERIN SL TABS 0.4 MG TAB SUBLINGUAL PRN ×2 (18:38→20:53)
[2018-08-27] MEDS ORDERED: KETOROLAC 60 MG/2 ML VIAL IVP STA (18:38)
[2018-08-27] MEDS ORDERED: HEPARIN SOD,PORK IN 0.45% NACL 25,000 UNIT in 0.45% NACL 1 250ML.BAG IV SCH (18:45)
[2018-08-27] MEDS ORDERED: ACETAMINOPHEN TAB 500 MG TAB PO STA (19:10)
[2018-08-27 20:20] LABS: Glucose,Whole Blood 348 mg/dL (75-99)
[2018-08-27] MEDS ORDERED: PANTOPRAZOLE 40 MG TABLET PO PRN (20:53)
[2018-08-27] MEDS ORDERED: ALPRAZolam 0.25 MG TAB PO PRN (20:53)
[2018-08-27] MEDS ORDERED: HYDROcodone/APAP 10-325MG 1 EACH TAB PO PRN (20:53)
[2018-08-27] MEDS ORDERED: MELATONIN 3 MG TABLET PO SCH (21:00)
[2018-08-27] MEDS: METOPROLOL TARTRATE 12.5 MG TAB PO SCH (22:00)
[2018-08-27] MEDS: CEPHALEXIN 250 MG CAP PO SCH (22:00)
[2018-08-27] MEDS: TROSPIUM CHLORIDE 20 MG TABLET PO SCH (22:00)
[2018-08-27] MEDS: INSULIN ASPART (NovoLOG) 100 UNIT/ML VIAL SQ SCH (22:10)
[2018-08-28] MEDS: NITROGLYCERIN OINT 1 INCH/GM PACKET TOPICAL SCH ×2 (00:45→06:26)
[2018-08-28] MEDS: CEPHALEXIN 250 MG CAP PO SCH ×2 (04:17→12:21)
[2018-08-28 05:03] LABS: Cholesterol 113 mg/dL (<200); HDL Cholesterol 26 mg/dL (40-60); LDL Cholesterol,Calculated 49 mg/dL (0-99); Triglycerides 191 mg/dL (<150)
[2018-08-28 06:43] LABS: Glucose,Whole Blood 224 mg/dL (75-99)
[2018-08-28] MEDS ORDERED: INSULIN ASPART (NovoLOG) 100 UNIT/ML VIAL SQ SCH (07:30)
[2018-08-28] MEDS: IPRATROPIUM-ALBUTEROL 3 ML NEB INHALATION SCH ×3 (07:39→16:08)
[2018-08-28 07:57] VITALS: RESP 18
[2018-08-28] MEDS ORDERED: SYMBICORT 160-4.5 MCG INHALER INHALATION SCH (08:00)
--- NOTE | 2018-08-28 08:23 | P.CRDCN ---
History of Present Illness Consult date: 08/28/18 Chief complaint: Chest pain History of present illness: This is a pleasant 67-year-old female patient who sees Dr. Caldwell in the office on regular basis with a past medical history significant for coronary artery disease and status post stenting of the LAD in 2017, at that point she was found to have no disease involving the RCA or left circumflex, diabetes, hypertension, dyslipidemia, presented to the emergency room complaining of chest discomfort. She was in her usual state of health about 3 weeks ago when she started experiencing chest discomfort, in the mid of the chest, as a sharp kind of discomfort, with radiation to the left arm. No associative symptoms of shortness of breath, sweating, dizziness, or syncope. The chest discomfort is intermittent. It doesn't seems to be exertional. The EKG showed sinus rhythm without any significant ST or T-wave abnormalities. The cardiac enzymes were checked and came in to be unremarkable. The chest x-ray showed no acute abnormalities. The patient continues to be chest pain-free throughout her hospitalization. When she arrived to emergency room yesterday she was given nitroglycerin with improvement in her symptoms. Past Medical History Past Medical History: Coronary Artery Disease (CAD), Diabetes Mellitus, Fibromyalgia, GERD/Reflux, Myocardial Infarction (CA) Additional Past Medical History / Comment(s): Idiopathic thrombocytopenia purpura, IBS, diverticulitis, hiatal hernia, 2 herniated discs-L3/L4, Restless Leg Syndrome, gastritis, superficial gastric ulcers. nodule on lt lung-Cancer Stg 1 Last Myocardial Infarction Date:: 01/2017 History of Any Multi-Drug Resistant Organisms: None Reported Past Surgical History: Adenoidectomy, Bladder Surgery, Bowel Resection, Cholecystectomy, Heart Catheterization With Stent, Hernia Repair, Hysterectomy, Tonsillectomy Additional Past Surgical History / Comment(s): BLADDER SUSPENSION x 2, breast biopsy x3, bowel resection due to rupture. left upper lobe of lung removed per CA Past Anesthesia/Blood Transfusion Reactions: No Reported Reaction Additional Past Anesthesia/Blood Transfusion Reaction / Comment(s): Pt received blood in 2005 due to ITP without reaction. Date of Last Stent Placement:: 01/2017 Past Psychological History: Anxiety Smoking Status: Current every day smoker Past Alcohol Use History: None Reported Past Drug Use History: None Reported - Past Family History Mother Family Medical History: Cancer, Diabetes Mellitus Additional Family Medical History / Comment(s): Father had a defibrillator. He of heart dx in his 80's Father Family Medical History: Diabetes Mellitus Additional Family Medical History / Comment(s): HEART DISEASE Medications and Allergies Home Medications Medication Instructions Recorded Confirmed Type ALPRAZolam 0.25 mg PO BID PRN 11/03/15 08/27/18 History Solifenacin Succinate [Vesicare] 10 mg PO HS 04/12/16 08/27/18 History rOPINIRole HCL [Requip] 0.25 mg PO HS 04/12/16 08/27/18 History Pantoprazole [Protonix] 40 mg PO QAM PRN 01/14/17 08/27/18 History Aspirin 81 mg PO DAILY chew 01/17/17 08/27/18 Rx Nitroglycerin Sl Tabs [Nitrostat] 0.4 mg SUBLINGUAL Q5M PRN #21 tab 01/17/17 08/27/18 Rx Clopidogrel Bisulfate [Plavix] 75 mg PO DAILY 06/26/17 08/27/18 History Atorvastatin [Lipitor] 80 mg PO DAILY 08/31/17 08/27/18 History Budesonide-Formot 160-4.5 Mcg 2 puff INHALATION RT-BID 08/31/17 08/27/18 History [Symbicort 160-4.5 Mcg Inhaler] Ipratropium/Albuterol Sulfate 1 puff INHALATION RT-QID 08/31/17 08/27/18 History [Combivent Respimat Inhaler] Tamsulosin [Flomax] 0.4 mg PO DAILY #30 cap.er.24h 09/22/17 08/27/18 Rx INSULIN ASPART (NovoLOG) [NovoLOG 6 unit SQ AC-TID vial 09/28/17 08/27/18 Rx (formulary)] Melatonin 3 mg PO HS tablet 09/28/17 08/27/18 Rx HYDROcodone/APAP 10-325MG [[place] 1 tab PO TID PRN 08/19/18 08/27/18 History 10-325] Cephalexin [Keflex] 250 mg PO Q6HR #28 cap 08/22/18 08/27/18 Rx Lisinopril [Prinivil] 5 mg PO DAILY@1300 #0 08/22/18 08/27/18 Rx Metoprolol Tartrate [Lopressor] 12.5 mg PO BID #60 tab 08/22/18 08/27/18 Rx Insulin Detemir (Levemir) [Levemir] 30 unit SQ DAILY@1200 08/27/18 08/27/18 History Allergies Allergy/AdvReac Type Severity Reaction Status Date / Time No Known Allergies Allergy Verified 08/27/18 16:57 Physical Exam Vitals: Vital Signs Temp Pulse Pulse Resp BP BP Pulse Ox 08/28/18 08:00 88 08/28/18 07:40 88 08/28/18 07:00 98.2 F 86 18 112/65 96 08/28/18 04:43 98.1 F 81 16 103/53 97 08/28/18 03:21 83 16 08/27/18 23:34 87 16 08/27/18 23:18 97.9 F 87 15 108/62 97 08/27/18 20:00 93 17 08/27/18 19:38 98.2 F 103 H 14 104/58 98 08/27/18 19:12 17 08/27/18 19:07 100.1 F H 08/27/18 18:57 99 18 129/57 100 08/27/18 17:20 101 H 18 119/53 95 08/27/18 16:46 95 18 118/50 96 Intake and Output 08/27/18 08/28/18 08/28/18 22:59 06:59 14:59 Other: Voiding Method Toilet Toilet # Voids 1 1 Weight 55.338 kg - Constitutional General appearance: no acute distress - Respiratory Respiratory: bilateral: CTA - Cardiovascular Rhythm: regular Heart sounds: normal: S1, S2 Results 08/27/18 15:46 08/27/18 15:46 Cardiac Enzymes 08/27/18 08/27/18 08/27/18 Range/Units 15:46 15:46 21:29 AST 29 (14-36) U/L Troponin I <0.012 <0.012 (0.000-0.034) ng/mL 08/28/18 Range/Units 04:05 AST (14-36) U/L Troponin I <0.012 (0.000-0.034) ng/mL Coagulation 08/27/18 08/28/18 Range/Units 15:46 05:43 PT 9.5 (9.0-12.0) sec APTT 23.5 25.2 (22.0-30.0) sec Lipids 08/28/18 Range/Units 04:05 Triglycerides 191 H (<150) mg/dL Cholesterol 113 (<200) mg/dL HDL Cholesterol 26 L (40-60) mg/dL CBC 08/27/18 Range/Units 15:46 WBC 12.2 H (3.8-10.6) k/uL RBC 4.95 (3.80-5.40) m/uL Hgb 13.4 (11.4-16.0) gm/dL Hct 43.0 (34.0-46.0) % Plt Count 469 H (150-450) k/uL Comprehensive Metabolic Panel 08/27/18 Range/Units 15:46 Sodium 135 L (137-145) mmol/L Potassium 5.3 H (3.5-5.1) mmol/L Chloride 100 (98-107) mmol/L Carbon Dioxide 24 (22-30) mmol/L BUN 17 (7-17) mg/dL Creatinine 0.47 L (0.52-1.04) mg/dL Glucose 240 H (74-99) mg/dL Calcium 9.4 (8.4-10.2) mg/dL AST 29 (14-36) U/L ALT 17 (9-52) U/L Alkaline Phosphatase 119 (38-126) U/L Total Protein 6.7 (6.3-8.2) g/dL Albumin 3.8 (3.5-5.0) g/dL Current Medications Generic Name Dose Route Start Last Admin Trade Name Freq PRN Reason Stop Dose Admin Hydrocodone Bitart/Acetaminophen 1 each 08/27/18 20:53 08/27/18 22:02 [place] 10 PO 1 each TID PRN Administration Pain Albuterol/Ipratropium 3 ml 08/28/18 08:00 08/28/18 07:39 Duoneb 0.5 Mg-3 Mg/3 Ml Soln INHALATION 3 ml RT-QID REY Administration Alprazolam 0.25 mg 08/27/18 20:53 Xanax PO BID PRN Anxiety Aspirin 81 mg 08/28/18 09:00 Aspirin PO DAILY [facility] Atorvastatin Calcium 80 mg 08/28/18 09:00 Lipitor PO DAILY [facility] Budesonide/Formoterol Fumarate 2 puff 08/28/18 08:00 08/28/18 07:39 Symbicort 160-4.5 Mcg Inhaler INHALATION 2 puff RT-BID [facility] Administration Cephalexin 250 mg 08/28/18 00:00 08/28/18 04:17 Keflex PO 250 mg Q6HR REY Administration Clopidogrel Bisulfate 75 mg 08/28/18 09:00 Plavix PO DAILY [facility] Heparin Sodium/Sodium Chloride 250 mls @ 6.641 mls/hr 08/27/18 18:45 08/27/18 19:04 25,000 unit/ Sodium Chloride IV 12 units/kg/hr .Q24H REY 6.641 mls/hr Administration Protocol 12 UNITS/KG/HR Insulin Aspart 6 unit 08/27/18 22:05 08/27/18 22:10 Novolog SQ 6 unit AC-TID [facility] Administration Insulin Detemir 30 unit 08/28/18 12:00 Levemir SQ DAILY@1200 [facility] Lisinopril 5 mg 08/28/18 13:00 Zestril PO DAILY@1300 [facility] Melatonin 3 mg 08/27/18 21:00 08/27/18 22:00 Melatonin PO 3 mg HS [facility] Administration Metoprolol Tartrate 12.5 mg 08/27/18 21:00 08/27/18 22:00 Lopressor PO 12.5 mg BID [facility] Administration Nitroglycerin 1 inch 08/28/18 00:00 08/28/18 06:26 Nitro-Bid Oint TOPICAL Not Given Q6HR [facility] Nitroglycerin 0.4 mg 08/27/18 20:53 Nitrostat SUBLINGUAL Q5M PRN Chest Pain Pantoprazole Sodium 40 mg 08/27/18 20:53 Protonix PO QAM PRN reflux Ropinirole HCl 0.25 mg 08/27/18 21:00 08/27/18 22:00 Requip PO 0.25 mg HS [facility] Administration Tamsulosin HCl 0.4 mg 08/28/18 09:00 Flomax PO DAILY [facility] Trospium 20 mg 08/27/18 21:00 08/27/18 22:00 [place] PO 20 mg BID [facility] Administration Intake and Output 08/27/18 08/28/18 08/28/18 22:59 06:59 14:59 Other: Voiding Method Toilet Toilet # Voids 1 1 Weight 55.338 kg 08/27/18 15:46 08/27/18 15:46 Assessment and Plan Assessment: Assessment #1 intermittent episodes of atypical chest discomfort #2 known CAD and prior stenting of the LAD Plan #1 acute coronary event was ruled out #2 I am recommending proceeding with Persantine Cardiolite stress test #3 we'll obtain an echocardiogram was Doppler #4 follow-up with the patient
[2018-08-28] MEDS ORDERED: CAFFEINE CITRATE 60 MG/3 ML VIAL IV PRN (08:29)
[2018-08-28] MEDS ORDERED: AMINOPHYLLINE 500 MG/20 ML VIAL IV PRN (08:29)
[2018-08-28] MEDS ORDERED: SODIUM CHLORIDE 0.9% IV ONE (08:45)
[2018-08-28] MEDS ORDERED: DIPYRIDAMOLE IV ONE (08:45)
[2018-08-28] MEDS ORDERED: CLOPIDOGREL 75 MG TAB PO SCH (09:00)
[2018-08-28] MEDS ORDERED: ATORVASTATIN 80 MG TAB PO SCH (09:00)
[2018-08-28] MEDS ORDERED: ASPIRIN 81 MG PO SCH (09:00)
[2018-08-28] MEDS ORDERED: TAMSULOSIN 0.4 MG CAP.ER.24H PO SCH (09:00)
[2018-08-28] MEDS ORDERED: ASPIRIN 325 MG TAB PO SCH (09:00)
[2018-08-28] MEDS: INSULIN ASPART (NovoLOG) 100 UNIT/ML VIAL SQ SCH ×2 (09:34→12:20)
[2018-08-28 10:12] LABS: Appearance,Urine Cloudy (Clear); Bacteria,Urine Rare /hpf; Bilirubin,Urine Negative (Negative); Blood,Urine Negative (Negative); Budding Yeast,Urine Many /hpf; Color,Urine Yellow; Glucose,Urine (UA) 4+ (Negative); Ketones,Urine Negative (Negative); Leukocyte Esterase,Urine Moderate (Negative); Mucus,Urine Occasional /hpf; Nitrite,Urine Negative (Negative); PH, Urine 5.5 (5.0-8.0); Protein,Urine Trace (Negative); Specific Gravity,Urine 1.025 (1.001-1.035); Squamous Epithelial Cell,Urine 11 /hpf (0-4); Urobilinogen,Urine <2.0 mg/dL (<2.0); WBC,Urine 7 /hpf (0-5)
[2018-08-28] MEDS ORDERED: INSULIN DETEMIR (LEVEMIR) 100 UNIT/ML SYR SQ SCH (12:00)
[2018-08-28 12:08] LABS: Glucose,Whole Blood 254 mg/dL (75-99)
[2018-08-28 12:15] VITALS: BP 131/70; TEMP 98.1
[2018-08-28] MEDS: TROSPIUM CHLORIDE 20 MG TABLET PO SCH (12:21)
[2018-08-28] MEDS: METOPROLOL TARTRATE 12.5 MG TAB PO SCH (12:22)
[2018-08-28] MEDS ORDERED: LISINOPRIL 5 MG TAB PO SCH (13:00)
--- NOTE | 2018-08-28 13:11 | NM ---
EXAMINATION TYPE: NM stress persantine cardiolit DATE OF EXAM: 08/28/2018 COMPARISON: NONE HISTORY: Chest pain TECHNIQUE: After the intravenous administration of 9.8 mCi Tc 99m Sestamibi - Cardiolite resting SPE CT images acquired 45 minutes post injection. The patient received 31.5 mg Persantine, 25.9 mCi Tc 99m Sestamibi - Stress images obtained 30 minute s post injection FINDINGS: Review of stress and rest SPECT images demonstrates no distinct perfusion abnormality. Gated analysi s shows question apical paradoxical wall motion with an estimated left ventricular ejection fraction of 68 %. IMPRESSION: No scintigraphic evidence for reversible ischemia. Consider echocardiographic correlation for elevate d ejection fraction, paradoxical wall motion
[2018-08-28 16:08] VITALS: PULSE 90
--- NOTE | 2018-08-28 16:33 | HP ---
HISTORY AND PHYSICAL DATE OF ADMISSION: 08/27/2018 DATE OF SERVICE: 08/28/2018 PRESENTING COMPLAINT: Chest pain. HISTORY OF PRESENTING COMPLAINT: This is a very pleasant 67-year-old patient whose chronic stable medical conditions include coronary artery disease with stent 2 years ago, diabetes mellitus, type 2, chronic fibromyalgia, GERD, ITP, irritable bowel syndrome, hiatal hernia, chronic herniated disc at L3-L4, restless legs syndrome, gastritis. Patient 3 nights ago started off with left precordial pain, then it went down to the left arm and left arm became heavy. Patient took 2 nitroglycerin. The chest pain was better, but the arm continued to feel heavy and discomfort. There was no associated shortness of breath perspiration, dizziness, lightheadedness or tiredness. The patient was admitted with unstable angina. Patient was scheduled to have a stress test at the cardiology office by Dr. Ivone Caldwell today. The patient was admitted with unstable angina. REVIEW OF SYSTEMS: CONSTITUTIONAL: None. HEENT: None. RESPIRATORY: None. CARDIOVASCULAR: As above. GASTROINTESTINAL: Occasional heartburn. GENITOURINARY: None. MUSCULOSKELETAL: Arthritic pain in joints. DERMATOLOGICAL: None. HEMATOLOGIC: None. LYMPHATIC: None. PSYCHIATRY: None. NEUROLOGICAL: None. PAST MEDICAL HISTORY: 1. Coronary artery disease with stent. 2. Diabetes mellitus, type 2. 3. Fibromyalgia. 4. GERD. 5. ITP. 6. Irritable bowel syndrome. 7. Hiatal hernia. 8. Herniated disc at L3-L4. 9. Restless legs syndrome. 10.Gastritis. PAST SURGICAL HISTORY: 1. Adenoidectomy. 2. Bladder surgery. 3. Bowel resection. 4. Cholecystectomy. 5. Coronary stent. 6. Hernia repair. 7. Hysterectomy. 8. Tonsillectomy. 9. Bladder suspension x2. 10.Bowel resection due to rupture. 11.Left upper lobe of the lung removed for cancer. PSYCH HISTORY: Anxiety. SOCIAL HISTORY: The patient smoked for close to 47 years, a pack a day; quit in June 2017. FAMILY HISTORY: Diabetes and heart disease. HOME MEDICATIONS: 1. Requip 0.25 at bedtime. 2. Flomax 0.4 mg daily. 3. VESIcare 10 mg at bedtime. 4. Protonix 40 mg p.o. daily p.r.n. 5. Nitrostat 0.4 sublingually q.5 p.r.n. 6. Lopressor 12.5 p.o. b.i.d. 7. Melatonin 3 mg p.o. at bedtime. 8. Prinivil 5 mg p.o. daily. 9. Combivent 1 puff q.i.d. 10.Levemir 30 units subcutaneously daily. 11.NovoLog 6 units subcutaneously before meals t.i.d. 12.[place] 10 one tablet p.o. t.i.d. p.r.n. 13.Plavix 75 mg p.o. daily. 14.Keflex 250 mg q.6. 15.Symbicort 160/4.5 two puffs b.i.d. 16.Lipitor 80 mg p.o. daily. 17.Aspirin 81 mg p.o. daily. 18.Xanax 0.25 p.o. b.i.d. p.r.n. ALLERGIES: NONE. PHYSICAL EXAMINATION: VITAL SIGNS ON PRESENTATION: Temperature 98.2, pulse 103, respiration 14, blood pressure 104/58, pulse ox 98% on room air. GENERAL APPEARANCE: Average build. Sitting up. Not in distress. EYES: Pupils equal. Conjunctivae normal. HEENT: External appearance of nose and ears normal. Oral cavity normal. NECK: JVD not raised. Mass not palpable. RESPIRATORY: Effort normal. LUNGS: Decreased breath sounds. CARDIOVASCULAR: First and second sounds normal. No edema. ABDOMEN: Soft, non-tender. Liver and spleen not palpable. LYMPHATIC: No lymph node palpable in neck or axillae. PSYCHIATRY: Alert and oriented x3. Mood and affect normal. NEUROLOGICAL: Pupils equal. Cranial nerves grossly intact. Power and sensation grossly intact. INVESTIGATIONS: Investigations reviewed in the clinical context. White count 12.2, hemoglobin 13.4, potassium 5.3, BUN 17, creatinine 0.47. Accu-Cheks 240 and 348. LDL 49. EKG tracing, personally reviewed by me, shows sinus tachycardia. Chest x-ray film, personally reviewed by me, shows hyperinflation and chronic changes. Radiological report reviewed. ASSESSMENT: 1. Possible unstable angina in a patient with known coronary artery disease. 2. Coronary artery disease with prior history of stent. 3. Diabetes mellitus, type 2, chronically on insulin. 4. Chronic fibromyalgia. 5. Gastroesophageal reflux disease. 6. Idiopathic thrombocytopenic purpura. 7. Irritable bowel syndrome. 8. Hiatal hernia. 9. Chronic herniated disc at L3-L4 level. 10.Restless legs syndrome. 11.Chronic gastritis. PLAN: Home medications are resumed. Cardiology was consulted, who ordered a stress test. The patient is already on aspirin. Accu-Cheks will be followed. Care was discussed with the patient and daughter at the bedside. Questions were answered. MMODL / IJN: [id number] /
[2018-08-28 16:42] LABS: Glucose,Whole Blood 240 mg/dL (75-99)
--- NOTE | 2018-08-29 12:14 | DS ---
DISCHARGE SUMMARY DATE OF ADMISSION: 08/27/2018 DATE OF DISCHARGE: 08/28/2018 FINAL DIAGNOSES: 1. Anterior chest wall pain probably musculoskeletal. 2. Coronary artery disease with prior history of stent. 3. Diabetes mellitus type 2, chronically on insulin. 4. Chronic fibromyalgia. 5. Gastroesophageal reflux disease. 6. Idiopathic thrombocytopenic purpura. 7. Irritable bowel syndrome. 8. Hiatal hernia. 9. Chronic herniated disc at L3-L4 level. 10.Restless legs syndrome. 11.Chronic gastritis. HOSPITAL COURSE: This patient presented with chest and left arm pain. Troponins were negative. LDL was 49. The patient did undergo a nuclear stress test that was negative. The patient was cleared by Cardiology to be discharged. CONSULTATION: Dr. Mccracken from Cardiology. PHYSICAL EXAMINATION: Temperature 98.1, pulse 96, respiration 18, blood pressure 131/70. LUNGS: Fair air entry. CARDIOVASCULAR: First and second sounds normal. DISCHARGE MEDICATIONS: 1. Xanax 0.25 p.o. b.i.d. p.r.n. 2. VESIcare 10 mg p.o. q.h.s. 3. Requip 0.25 mg p.o. q.h.s. 4. Protonix 40 mg p.o. daily. 5. Aspirin 81 mg p.o. daily. 6. Nitrostat 0.4 sublingual q.5 p.r.n. 7. Plavix 75 mg p.o. daily. 8. Lipitor 80 mg p.o. daily. 9. Symbicort 160/4.5 two puffs b.i.d. 10.Combivent 1 puff q.i.d. 11.Flomax 0.4 mg p.o. daily. 12.NovoLog 6 units subcu a.c. t.i.d. 13.Melatonin 3 mg q.h.s. 14.[place] 10 one tablet p.o. t.i.d. p.r.n. 15.Keflex 250 mg q.6, twenty-eight. 16.Prinivil 5 mg p.o. daily. 17.Lopressor 12.5 p.o. b.i.d. 18.Levemir 30 units subcu daily. Follow up with Dr. Oracio Brock in [place] in 2 days and follow up with Cardiology in a week. MMODL / IJN: [id number] /
--- NOTE | 2018-08-29 19:34 | ECHOF ---
Referral Reason:cp MEASUREMENTS -------- HEIGHT: 157.5 cm WEIGHT: 55.3 kg BP: IVSd: 0.8 cm (0.6 - 1.1) LVIDd: 3.2 cm (3.9 - 5.3) LVPWd: 1.0 cm (0.6 - 1.1) IVSs: 1.6 cm LVIDs: 1.3 cm LVPWs: 1.6 cm Ao Diam: 2.3 cm (2.0 - 3.7) AV Cusp: 1.3 cm (1.5 - 2.6) LA Diam: 3.2 cm (2.7 - 3.8) MV EXCURSION: 15.618 mm (> 18.000) MV EF SLOPE: 58 mm/s (70 - 150) EPSS: 0.3 cm MV E Raul: 1.05 m/s MV DecT: 142 ms MV A Raul: 1.12 m/s MV E/A Ratio: 0.94 AV maxP.99 mmHg AV meanP.05 mmHg RAP: 5.00 mmHg RVSP: 31.75 mmHg FINDINGS -------- Sinus rhythm. This was a technically good study. The left ventricular size is normal. There is borderline concentric left ventricular hypertrophy. Overall left ventricular systolic function is normal with, an EF between 55 - 60 %. The right ventricle is normal in size. The left atrial size is normal. The right atrial size is normal. Aneurysmal Interatrial septum. Aortic valve is trileaflet and is mildly thickened. The mitral valve leaflets are mildly thickened. Mild mitral annular calcification present. Mild m itral regurgitation is present. [id number] tricuspid regurgitation present. The right ventricular systolic pressure, as measu red by Doppler, is 31.75mmHg. There is no pulmonic regurgitation present. The aortic root size is normal. Normal inferior vena cava with normal inspiratory collapse consistent with estimated right atrial pre ssure of 5 mmHg. There is no pericardial effusion. CONCLUSIONS -------- 1. Sinus rhythm. 2. This was a technically good study. 3. The left ventricular size is normal. 4. There is borderline concentric left ventricular hypertrophy. 5. Overall left ventricular systolic function is normal with, an EF between 55 - 60 %. 6. The right ventricle is normal in size. 7. The left atrial size is normal. 8. The right atrial size is normal. 9. Aneurysmal Interatrial septum. 10. Aortic valve is trileaflet and is mildly thickened. 11. The mitral valve leaflets are mildly thickened. 12. Mild mitral annular calcification present. 13. Mild mitral regurgitation is present. 14. [id number] tricuspid regurgitation present. 15. The right ventricular systolic pressure, as measured by Doppler, is 31.75mmHg. 16. There is no pulmonic regurgitation present. 17. The aortic root size is normal. 18. Normal inferior vena cava with normal inspiratory collapse consistent with estimated right atrial pressure of 5 mmHg. 19. There is no pericardial effusion. PATIENT ACCOUNTING REPRESENTATIVE: Vee Hernandez RDCS
--- NOTE | 2018-08-29 22:05 | EST ---
EXERCISE STRESS DATE OF SERVICE: 08/28/2018. INDICATION: Chest pain. AGE: 67 SEX: Fe HT: 62" WT: 122 lbs PROTOCOL: Persantine Cardiolite. STAGE: DURATION OF EXERCISE: HEART RATE REST: 88 BLOOD PRESSURE REST: 125/58 MAXIMUM HEART RATE ACHIEVED: 106 MAXIMUM BLOOD PRESSURE: 124/47 85% MPHR: 100% MPHR: METS: RESULTS: Stress data heart rate 88, pressure is 125/58 mmHg baseline EKG showed sinus mechanism. The patient was given 31.5 mg of Persantine per protocol. Max heart rate was 106 beats per minute and maximum pressure was 124/47 mmHg. Clinically the patient did not have any symptoms of chest pain or discomfort and the EKG did not show any significant ST or T-wave abnormalities concerning for ischemia. CONCLUSION: 1. Nondiagnostic electrocardiogram stress testing in response to Persantine. 2. Please follow up on the Cardiolite portion on separate report from radiology department. MMODL / IJN: [id number] /
== END 2018-08-28 17:35 | disposition home or self-care (01) ==
LOC: EC 15:00 → 1SOBS 18:38
PROVIDERS: ADMIT Hospitalist; ATTEND Hospitalist
DX: R07.89 Other chest pain (principal); I25.10 Atherosclerotic heart disease of native coronary artery without angina pectoris; E11.9 Type 2 diabetes mellitus without complications; M79.7 Fibromyalgia; K21.9 Gastro-esophageal reflux disease without esophagitis; D69.3 Immune thrombocytopenic purpura; M79.602 Pain in left arm; K58.9 Irritable bowel syndrome, unspecified; K44.9 Diaphragmatic hernia without obstruction or gangrene; R00.0 Tachycardia, unspecified; K29.50 Unspecified chronic gastritis without bleeding; G25.81 Restless legs syndrome; M51.26 Other intervertebral disc displacement, lumbar region; K57.90 Diverticulosis of intestine, part unspecified, without perforation or abscess without bleeding; F17.200 Nicotine dependence, unspecified, uncomplicated; F41.9 Anxiety disorder, unspecified; Z79.82 Long term (current) use of aspirin; Z79.02 Long term (current) use of antithrombotics/antiplatelets; Z79.51 Long term (current) use of inhaled steroids; Z79.891 Long term (current) use of opiate analgesic; Z79.4 Long term (current) use of insulin; Z79.899 Other long term (current) drug therapy; Z95.5 Presence of coronary angioplasty implant and graft; Z87.11 Personal history of peptic ulcer disease; I25.2 Old myocardial infarction; Z90.2 Acquired absence of lung [part of]; Z85.118 Personal history of other malignant neoplasm of bronchus and lung; Z90.49 Acquired absence of other specified parts of digestive tract; Z86.19 Personal history of other infectious and parasitic diseases; Z87.440 Personal history of urinary (tract) infections; Z90.710 Acquired absence of both cervix and uterus; Z83.3 Family history of diabetes mellitus; Z82.49 Family history of ischemic heart disease and other diseases of the circulatory system
CPT/HCPCS: 96366 ×2; 96376; 96365; 96375; 99291; 36415; 94640 ×2; 93005; 93017; 93306; 80061; 80053; 83735; 84484 ×2; 85025; 85610; 85730 ×2; 81001; 71046; 78452; G0378 ×2; L4350; A9500; J1644 ×2; J1885

== ENCOUNTER 2018-09-06 23:10 | Observation (INO) | payer MEDICARE, OTHER ==
[2018-09-06] MEDS ORDERED: HEPARIN SODIUM,PORCINE 5,000 UNIT/ML 1 ML VIAL IV PRN (23:13)
[2018-09-06] MEDS ORDERED: HEPARIN SODIUM,PORCINE 5,000 UNIT/ML 1 ML VIAL IV ONE (23:13)
[2018-09-06] MEDS ORDERED: SODIUM CHLORIDE 0.9% 1,000 ML IV STA (23:13)
[2018-09-06] MEDS ORDERED: NITROGLYCERIN SL TABS 0.4 MG TAB SUBLINGUAL PRN (23:13)
[2018-09-06] MEDS ORDERED: HEPARIN SOD,PORK IN 0.45% NACL 25,000 UNIT in 0.45% NACL 1 250ML.BAG IV SCH (23:15)
[2018-09-06 23:43] LABS: Basophils # (A) 0.1 k/uL (0-0.2); Basophils % (A) 1 %; Eosinophils # (A) 0.3 k/uL (0-0.7); Eosinophils % (A) 3 %; HCT 37.2 % (34.0-46.0); HGB 11.8 gm/dL (11.4-16.0); Lymphocytes % (A) 26 %; MCH 27.8 pg (25.0-35.0); MCHC 31.7 g/dL (31.0-37.0); MCV 87.6 fL (80.0-100.0); Mean Platelet Volume 7.6; Monocytes # (A) 0.8 k/uL (0-1.0); Monocytes % (A) 7 %; Neutrophils % (A) 61 %; Platelet Count 403 k/uL (150-450); RBC 4.24 m/uL (3.80-5.40); RDW 15.3 % (11.5-15.5); WBC 11.4 k/uL (3.8-10.6)
[2018-09-06 23:59] LABS: D-Dimer 0.54 mg/L FEU (<0.60); INR 0.9 (<1.2); Partial Thromboplastin Time 23.6 sec (22.0-30.0); Prothrombin Time 9.5 sec (9.0-12.0)
--- NOTE | 2018-09-07 00:06 | ED ---
Chest Pain HPI - General Chief Complaint: Chest Pain Stated Complaint: Chest Pain Time Seen by Provider: 09/06/18 23:13 Source: EMS, RN notes reviewed, old records reviewed Mode of arrival: EMS Limitations: no limitations - History of Present Illness Initial Comments: This is a 65-year-old female the ER for evaluation she does have chest pain. History of ACS history of stents placed. No recent travel history or sick contacts. There is had recent hospital admission for chest pain. No trauma. No recent change in medications. No fevers cough or congestion MD Complaint: chest pain -: hour(s) Onset: during rest Pain Location: substernal, left chest Severity: moderate Severity scale (1-10): 4 Quality: tightness, heaviness Consistency: constant Improves With: nitroglycerin (Took 3 nitros) Worsens With: nothing Anginal Symptoms: nausea Treatments Prior to Arrival: none - Related Data Home Medications Medication Instructions Recorded Confirmed ALPRAZolam 0.25 mg PO BID PRN 11/03/15 09/07/18 Solifenacin Succinate [Vesicare] 10 mg PO HS 04/12/16 09/07/18 rOPINIRole HCL [Requip] 0.25 mg PO HS 04/12/16 09/07/18 Pantoprazole [Protonix] 40 mg PO QAM PRN 01/14/17 09/07/18 Clopidogrel Bisulfate [Plavix] 75 mg PO DAILY 06/26/17 09/07/18 Atorvastatin [Lipitor] 80 mg PO DAILY 08/31/17 09/07/18 Budesonide-Formot 160-4.5 Mcg 2 puff INHALATION RT-BID 08/31/17 09/07/18 [Symbicort 160-4.5 Mcg Inhaler] Ipratropium/Albuterol Sulfate 1 puff INHALATION RT-QID 08/31/17 09/07/18 [Combivent Respimat Inhaler] HYDROcodone/APAP 10-325MG [Marathon 1 tab PO TID PRN 08/19/18 09/07/18 10-325] Insulin Detemir (Levemir) [Levemir] 30 unit SQ DAILY@1200 08/27/18 09/07/18 Cephalexin [Keflex] 500 mg PO Q6H 09/06/18 09/07/18 INSULIN ASPART (NovoLOG) [NovoLOG 1 unit SQ AC-TID 09/07/18 09/07/18 (formulary)] traZODone HCL 50 mg PO HS 09/07/18 09/07/18 Previous Rx's Medication Instructions Recorded Aspirin 81 mg PO DAILY chew 01/17/17 Nitroglycerin Sl Tabs [Nitrostat] 0.4 mg SUBLINGUAL Q5M PRN #21 tab 01/17/17 Tamsulosin [Flomax] 0.4 mg PO DAILY #30 cap.er.24h 09/22/17 Melatonin 3 mg PO HS tablet 09/28/17 Metoprolol Tartrate [Lopressor] 12.5 mg PO BID #60 tab 08/22/18 Baclofen [Lioresal] 5 mg PO TID PRN #30 tablet 09/07/18 Allergies Allergy/AdvReac Type Severity Reaction Status Date / Time No Known Allergies Allergy Verified 09/06/18 23:58 Review of Systems ROS Statement: Those systems with pertinent positive or pertinent negative responses have been documented in the HPI. ROS Other: All systems not noted in ROS Statement are negative. Past Medical History Past Medical History: Coronary Artery Disease (CAD), Diabetes Mellitus, Fibromyalgia, GERD/Reflux, Myocardial Infarction (PR) Additional Past Medical History / Comment(s): Idiopathic thrombocytopenia purp ura, IBS, diverticulitis, hiatal hernia, 2 herniated discs-L3/L4, Restless Leg Syndrome, gastritis, superficial gastric ulcers. nodule on lt lung-Cancer Stg 1 Last Myocardial Infarction Date:: 01/2017 History of Any Multi-Drug Resistant Organisms: None Reported Past Surgical History: Adenoidectomy, Bladder Surgery, Bowel Resection, Cholecystectomy, Heart Catheterization With Stent, Hernia Repair, Hysterectomy, Tonsillectomy Additional Past Surgical History / Comment(s): BLADDER SUSPENSION x 2, breast biopsy x3, bowel resection due to rupture. left upper lobe of lung removed per CA, Past Anesthesia/Blood Transfusion Reactions: No Reported Reaction Additional Past Anesthesia/Blood Transfusion Reaction / Comment(s): Pt received blood in 2005 due to ITP without reaction. Date of Last Stent Placement:: 01/2017 Past Psychological History: Anxiety Smoking Status: Current some day smoker Past Alcohol Use History: None Reported Past Drug Use History: None Reported - Past Family History Mother Family Medical History: Cancer, Diabetes Mellitus Additional Family Medical History / Comment(s): Father had a defibrillator. He of heart dx in his 80's Father Family Medical History: Diabetes Mellitus Additional Family Medical History / Comment(s): HEART DISEASE General Exam Limitations: no limitations General appearance: alert, in no apparent distress Head exam: Present: atraumatic, normocephalic, normal inspection Eye exam: Present: normal appearance, PERRL, EOMI. Absent: scleral icterus, conjunctival injection, periorbital swelling ENT exam: Present: normal exam, mucous membranes moist Neck exam: Present: normal inspection. Absent: tenderness, meningismus, lymphadenopathy Respiratory exam: Present: normal lung sounds bilaterally. Absent: respiratory distress, wheezes, rales, rhonchi, stridor Cardiovascular Exam: Present: regular rate, normal rhythm, normal heart sounds. Absent: systolic murmur, diastolic murmur, rubs, gallop, clicks GI/Abdominal exam: Present: soft, normal bowel sounds. Absent: distended, tenderness, guarding, rebound, rigid Extremities exam: Present: normal inspection, full ROM, normal capillary refill. Absent: tenderness, pedal edema, joint swelling, calf tenderness Back exam: Present: normal inspection Neurological exam: Present: alert, oriented X3, CN II-XII intact Psychiatric exam: Present: normal affect, normal mood Skin exam: Present: warm, dry, intact, normal color. Absent: rash Course Vital Signs 09/06/18 09/07/18 23:11 00:45 Temperature 98.6 F 98.2 F Pulse Rate 95 98 Respiratory 18 20 Rate Blood Pressure 153/66 148/74 O2 Sat by Pulse 97 99 Oximetry - Reevaluation(s) Reevaluation #1: Medical records reviewed Patient still has persistent chest pain Chest Pain MDM - MDM 67 female the ER for evaluation she currently has chest pain. History of ACS. Patient to be admitted for cardiac observation. She does have recent cardiac admission for chest pain as well. Critical Care Time Critical Care Time: Yes Total Critical Care Time: 31 Disposition Clinical Impression: Unstable angina pectoris, Chest pain Disposition: ADMITTED IP TO THIS HOSP Condition: Undetermined Is patient prescribed a controlled substance at d/c from ED?: No
[2018-09-07 00:15] LABS: ALT 12 U/L (9-52); AST 12 U/L (14-36); African American GFR (CKD) >90 (>60 ml/min/1.73 sqM); Albumin 3.5 g/dL (3.5-5.0); Alkaline Phosphatase 129 U/L (38-126); Anion Gap 9 mmol/L; Blood Urea Nitrogen 19 mg/dL (7-17); Calcium 8.9 mg/dL (8.4-10.2); Carbon Dioxide 23 mmol/L (22-30); Chloride 103 mmol/L (98-107); Glucose 366 mg/dL (74-99); Lipase 134 U/L (23-300); Magnesium 1.7 mg/dL (1.6-2.3); Potassium 4.4 mmol/L (3.5-5.1); Sodium 135 mmol/L (137-145); Total Bilirubin 0.2 mg/dL (0.2-1.3)
--- NOTE | 2018-09-07 00:27 | XR ---
EXAM: XR Chest, 2 Views CLINICAL HISTORY: ITS.REASON XR Reason: Chest Pain TECHNIQUE: Frontal and lateral views of the chest. COMPARISON: Chest radiograph on 08/27/2018 FINDINGS: Hardware: None. Lungs/pleura: Stable elevation of the left hemidiaphragm. Stable volume loss of the left lung with stable scarring in the left upper lung. No focal consolidation. No pleural effusion or pneumothorax. Heart/mediastinum: Normal. No cardiomegaly. Soft tissues: Unremarkable. Bones: No acute fracture. Degenerative changes of the spine. Upper abdomen: Normal. IMPRESSION: No acute disease identified.
[2018-09-07] MEDS ORDERED: ALPRAZolam 0.25 MG TAB PO PRN (02:04)
[2018-09-07] MEDS: HYDROcodone/APAP 10-325MG 1 EACH TAB PO PRN ×2 (02:33→12:45)
[2018-09-07 06:42] LABS: Mean Platelet Volume 7.1; Platelet Count 396 k/uL (150-450)
[2018-09-07 06:45] LABS: Glucose,Whole Blood 298 mg/dL (75-99)
[2018-09-07 07:14] LABS: Cholesterol 123 mg/dL (<200); HDL Cholesterol 29 mg/dL (40-60); LDL Cholesterol,Calculated 39 mg/dL (0-99); Triglycerides 276 mg/dL (<150)
[2018-09-07 08:49] VITALS: RESP 16
[2018-09-07] MEDS ORDERED: ATORVASTATIN 80 MG TAB PO SCH (09:00)
[2018-09-07] MEDS ORDERED: ASPIRIN 325 MG TAB PO SCH (09:00)
[2018-09-07] MEDS ORDERED: METOPROLOL TARTRATE 25 MG TAB PO SCH (09:00)
--- NOTE | 2018-09-07 10:23 | P.CRDCN ---
History of Present Illness Consult date: 09/07/18 History of present illness: This is a 67-year-old female patient of Dr. Caldwell with known history of coronary artery disease status post stenting of the LAD in 2017, diabetes, hypertension, dyslipidemia who is admitted to the hospital with complaints of chest pain which is recurrent. Patient complaining of chest pain all over the chest which seemed to be increased by deep breathing and also movements of the chest. There is questionable radiation to the left arm. Not associated nausea vomiting or sweating. EKG so far did not reveal any acute changes. Cardiac en zymes are negative. Patient was admitted to this hospital on august with similar pains. Patient had a stress test which was negative for ischemia. Patient does have tenderness all over the chest and seems to be upset and also seemed to be crying. It appears that pain pills may be helping her somewhat. From clinical point of fever, pains appear to be atypical. Patient moreover had a normal stress test few days ago. At this point advised symptomatic medical therapy and. When patient is stable she could be discharged home and have follow-up with Dr. Caldwell Review of Systems As per the chart Past Medical History Past Medical History: Coronary Artery Disease (CAD), Diabetes Mellitus, Fibromyalgia, GERD/Reflux, Myocardial Infarction ([place]) Additional Past Medical History / Comment(s): Idiopathic thrombocytopenia purpura, IBS, diverticulitis, hiatal hernia, 2 herniated discs-L3/L4, Restless Leg Syndrome, gastritis, superficial gastric ulcers. nodule on lt lung-Cancer Stg 1, self cath 2 times per day Last Myocardial Infarction Date:: 01/2017 History of Any Multi-Drug Resistant Organisms: None Reported Past Surgical History: Adenoidectomy, Bladder Surgery, Bowel Resection, Cholecystectomy, Heart Catheterization With Stent, Hernia Repair, Hysterectomy, Tonsillectomy Additional Past Surgical History / Comment(s): BLADDER SUSPENSION x 2, breast biopsy x3, bowel resection due to rupture. left upper lobe of lung removed per CA, Past Anesthesia/Blood Transfusion Reactions: No Reported Reaction Additional Past Anesthesia/Blood Transfusion Reaction / Comment(s): Pt received blood in 2005 due to ITP without reaction. Date of Last Stent Placement:: 01/2017 Past Psychological History: Anxiety Additional Psychological History / Comment(s): . Smoking Status: Current some day smoker Past Alcohol Use History: None Reported Additional Past Alcohol Use History / Comment(s): STARTED SMOKING AT AGE 18- SMOKED 1PPD AND QUIT -2017 Past Drug Use History: None Reported - Past Family History Mother Family Medical History: Cancer, Diabetes Mellitus Additional Family Medical History / Comment(s): Father had a defibrillator. He of heart dx in his 80's Father Family Medical History: Diabetes Mellitus Additional Family Medical History / Comment(s): HEART DISEASE Medications and Allergies Home Medications Medication Instructions Recorded Confirmed Type ALPRAZolam 0.25 mg PO BID PRN 11/03/15 09/07/18 History Solifenacin Succinate [Vesicare] 10 mg PO HS 04/12/16 09/07/18 History rOPINIRole HCL [Requip] 0.25 mg PO HS 04/12/16 09/07/18 History Pantoprazole [Protonix] 40 mg PO QAM PRN 01/14/17 09/07/18 History Aspirin 81 mg PO DAILY chew 01/17/17 09/07/18 Rx Nitroglycerin Sl Tabs [Nitrostat] 0.4 mg SUBLINGUAL Q5M PRN #21 tab 01/17/17 09/07/18 Rx Clopidogrel Bisulfate [Plavix] 75 mg PO DAILY 06/26/17 09/07/18 History Atorvastatin [Lipitor] 80 mg PO DAILY 08/31/17 09/07/18 History Budesonide-Formot 160-4.5 Mcg 2 puff INHALATION RT-BID 08/31/17 09/07/18 History [Symbicort 160-4.5 Mcg Inhaler] Ipratropium/Albuterol Sulfate 1 puff INHALATION RT-QID 08/31/17 09/07/18 History [Combivent Respimat Inhaler] Tamsulosin [Flomax] 0.4 mg PO DAILY #30 cap.er.24h 09/22/17 09/07/18 Rx Melatonin 3 mg PO HS tablet 09/28/17 09/07/18 Rx HYDROcodone/APAP 10-325MG [Teller 1 tab PO TID PRN 08/19/18 09/07/18 History 10-325] Lisinopril [Prinivil] 5 mg PO DAILY@1300 #0 08/22/18 09/07/18 Rx Metoprolol Tartrate [Lopressor] 12.5 mg PO BID #60 tab 08/22/18 09/07/18 Rx Insulin Detemir (Levemir) [Levemir] 30 unit SQ DAILY@1200 08/27/18 09/07/18 History Cephalexin [Keflex] 500 mg PO Q6H 09/06/18 09/07/18 History INSULIN ASPART (NovoLOG) [NovoLOG 1 unit SQ AC-TID 09/07/18 09/07/18 History (formulary)] traZODone HCL 50 mg PO HS 09/07/18 09/07/18 History Allergies Allergy/AdvReac Type Severity Reaction Status Date / Time No Known Allergies Allergy Verified 09/06/18 23:58 Physical Exam Vitals: Vital Signs Temp Pulse Pulse Pulse Pulse Resp BP 09/07/18 08:00 98.3 F 82 16 09/07/18 04:00 97.9 F 73 15 09/07/18 01:15 98.2 F 77 16 09/07/18 00:45 98.2 F 98 20 148/74 09/06/18 23:11 98.6 F 95 18 153/66 BP Pulse Ox 09/07/18 08:00 96/61 100 09/07/18 04:00 111/65 97 09/07/18 01:15 138/77 96 09/07/18 00:45 99 09/06/18 23:11 97 Intake and Output 09/06/18 09/07/18 09/07/18 22:59 06:59 14:59 Other: Voiding Method Self-Catheterization # Voids 2 Weight 54.431 kg GENERAL EXAM: Patient is alert and oriented and doesn't appear to be in any acute distress HEENT: Normocephalic. Normal reaction of pupils, equal size, normal range of extraocular motion. No erythema or exudates in the throat. NECK: No masses, no nuchal rigidity. CHEST: No chest wall deformity. Patient has tenderness all over the chest LUNGS: Equal air entry with no crackles or wheeze. HEART: S1 and S2 normal with no audible mumurs or gallops. Regular rhythm, femorals equal on both sides.. ABDOMEN: No hepatosplenomegaly, normal bowel sounds, no guarding or rigidity. SKIN: No rashes CENTRAL NERVOUS SYSTEM: No focal deficits. EXTREMITIES: No cyanosis, clubbing or edema. Results 09/07/18 06:19 09/06/18 23:19 Cardiac Enzymes 09/06/18 09/06/18 09/07/18 Range/Units 23:19 23:19 06:19 AST 12 L (14-36) U/L Troponin I <0.012 <0.012 (0.000-0.034) ng/mL Coagulation 09/06/18 09/07/18 Range/Units 23:19 06:19 PT 9.5 (9.0-12.0) sec APTT 23.6 25.4 (22.0-30.0) sec Lipids 09/07/18 Range/Units 06:19 Triglycerides 276 H (<150) mg/dL Cholesterol 123 (<200) mg/dL HDL Cholesterol 29 L (40-60) mg/dL CBC 09/06/18 09/07/18 Range/Units 23:19 06:19 WBC 11.4 H (3.8-10.6) k/uL RBC 4.24 (3.80-5.40) m/uL Hgb 11.8 (11.4-16.0) gm/dL Hct 37.2 (34.0-46.0) % Plt Count 403 396 (150-450) k/uL Comprehensive Metabolic Panel 09/06/18 Range/Units 23:19 Sodium 135 L (137-145) mmol/L Potassium 4.4 (3.5-5.1) mmol/L Chloride 103 (98-107) mmol/L Carbon Dioxide 23 (22-30) mmol/L BUN 19 H (7-17) mg/dL Creatinine 0.61 (0.52-1.04) mg/dL Glucose 366 H (74-99) mg/dL Calcium 8.9 (8.4-10.2) mg/dL AST 12 L (14-36) U/L ALT 12 (9-52) U/L Alkaline Phosphatase 129 H (38-126) U/L Total Protein 6.0 L (6.3-8.2) g/dL Albumin 3.5 (3.5-5.0) g/dL Current Medications Generic Name Dose Route Start Last Admin Trade Name Freq PRN Reason Stop Dose Admin Hydrocodone Bitart/Acetaminophen 1 each 09/07/18 02:04 09/07/18 02:33 Teller 10 PO 1 each TID PRN Administration Pain Alprazolam 0.25 mg 09/07/18 02:04 09/07/18 05:04 Xanax PO 0.25 mg BID PRN Administration Anxiety Aspirin 325 mg 09/07/18 09:00 09/07/18 09:56 Aspirin PO 325 mg DAILY REY Administration Atorvastatin Calcium 80 mg 09/07/18 09:00 09/07/18 09:56 Lipitor PO 80 mg DAILY REY Administration Heparin Sodium/Sodium Chloride 250 mls @ 6.532 mls/hr 09/06/18 23:15 09/07/18 00:54 25,000 unit/ Sodium Chloride IV 12 units/kg/hr .Q24H REY 6.532 mls/hr Administration Protocol 12 UNITS/KG/HR Metoprolol Tartrate 25 mg 09/07/18 09:00 09/07/18 09:56 Lopressor PO 25 mg BID REY Administration Nitroglycerin 0.4 mg 09/06/18 23:13 Nitrostat SUBLINGUAL Q5M PRN Chest Pain Intake and Output 09/06/18 09/07/18 09/07/18 22:59 06:59 14:59 Other: Voiding Method Self-Catheterization # Voids 2 Weight 54.431 kg 09/07/18 06:19 09/06/18 23:19 EKG Interpretations (text) Sinus rhythm without acute changes Assessment and Plan (1) Chest pain Current Visit: Yes Status: Acute Code(s): R07.9 - CHEST PAIN, UNSPECIFIED SNOMED Code(s): 66699362 (2) History of myocardial infarction Current Visit: No Status: Acute Code(s): I25.2 - OLD MYOCARDIAL INFARCTION SNOMED Code(s): 669948717 (3) Small cell lung carcinoma Current Visit: No Status: Acute Code(s): C34.90 - MALIGNANT NEOPLASM OF UNSP PART OF UNSP BRONCHUS OR LUNG SNOMED Code(s): 822820065 (4) Type 2 diabetes mellitus with hyperglycemia Current Visit: No Status: Acute Code(s): E11.65 - TYPE 2 DIABETES MELLITUS WITH HYPERGLYCEMIA SNOMED Code(s): 741955957031557 (5) History of heart artery stent Current Visit: No Status: Chronic Code(s): Z95.5 - PRESENCE OF CORONARY ANGIOPLASTY IMPLANT AND GRAFT SNOMED Code(s): 608955410 Plan: Patient chest pain clinically appear to be atypical and muscular skeletal. There is also an element of anxiety. EKG did not reveal any acute changes. Cardiac enzymes are negative. Stress test from last admission few days ago, was negative for ischemia. No further cardiac workup at this time. Symptomatic treatment and when clinically stable, patient could be discharged home to have follow-up with Dr. Caldwell
[2018-09-07 11:40] LABS: Glucose,Whole Blood 404 mg/dL (75-99)
[2018-09-07] MEDS ORDERED: PANTOPRAZOLE 40 MG TABLET PO PRN (11:47)
[2018-09-07] MEDS ORDERED: CLOPIDOGREL 75 MG TAB PO SCH (12:00)
[2018-09-07] MEDS ORDERED: TAMSULOSIN 0.4 MG CAP.ER.24H PO SCH (12:00)
[2018-09-07] MEDS ORDERED: INSULIN DETEMIR (LEVEMIR) 100 UNIT/ML SYR SQ SCH (12:00)
[2018-09-07 12:30] VITALS: TEMP 98.1
[2018-09-07] MEDS ORDERED: INSULIN ASPART (NovoLOG) 100 UNIT/ML VIAL SQ SCH (12:58)
[2018-09-07] MEDS ORDERED: LISINOPRIL 5 MG TAB PO SCH (13:00)
--- NOTE | 2018-09-07 13:55 | P.HPIM ---
History of Present Illness Procedure present 14-year-old female came in with compensative retrosternal chest pain patient has reproducible chest pain [place] skeletal pain does have muscle spasms. Patient did take 2 nitroglycerin's which are reviewed her chest pain. Patient denied any lightheadedness diaphoresis shortness of breath associated with that. Patient had cardiac history with the stents to LAD in 2017. Patient was bit hypotensive her ejection fraction the past was normal because of which I'm this can you her CHECO inhibitor. Patient just pain is nonexertional not associated with food, not associated with deep breathing or coughing. Patient any cough fever. Chest x-ray did not show pneumonia EKG negative CT which changes troponins are negative. Patient has elevated blood glucose patient was resumed on her insulin regimen and this titration of her insulin can be done as an outpatient patient will be discharged today with prescription of baclofen for muscle spasm. Review of Systems REVIEW OF SYSTEMS: CONSTITUTIONAL: No fever, no malaise, no fatigue. HEENT: No recent visual problems or hearing problems. Denied any sore throat. CARDIOVASCULAR: No orthopnea, PND, no palpitations, no syncope. PULMONARY: No shortness of breath, no cough, no hemoptysis. GASTROINTESTINAL: No diarrhea, no nausea, no vomiting, no abdominal pain. NEUROLOGICAL: No headaches, no weakness, no numbness. HEMATOLOGICAL: Denies any bleeding or petechiae. GENITOURINARY: Denies any burning micturition, frequency, or urgency. MUSCULOSKELETAL/RHEUMATOLOGICAL: Denies any joint pain, swelling, or any muscle pain. ENDOCRINE: Denies any polyuria or polydipsia. The rest of the 14-point review of systems is negative. Past Medical History Past Medical History: Coronary Artery Disease (CAD), Diabetes Mellitus, Fibromyalgia, GERD/Reflux, Myocardial Infarction ([place]) Additional Past Medical History / Comment(s): Idiopathic thrombocytopenia purpura, IBS, diverticulitis, hiatal hernia, 2 herniated discs-L3/L4, Restless Leg Syndrome, gastritis, superficial gastric ulcers. nodule on lt lung-Cancer Stg 1, self cath 2 times per day Last Myocardial Infarction Date:: 01/2017 History of Any Multi-Drug Resistant Organisms: None Reported Past Surgical History: Adenoidectomy, Bladder Surgery, Bowel Resection, Cholecystectomy, Heart Catheterization With Stent, Hernia Repair, Hysterectomy, Tonsillectomy Additional Past Surgical History / Comment(s): BLADDER SUSPENSION x 2, breast biopsy x3, bowel resection due to rupture. left upper lobe of lung removed per CA, Past Anesthesia/Blood Transfusion Reactions: No Reported Reaction Additional Past Anesthesia/Blood Transfusion Reaction / Comment(s): Pt received blood in 2005 due to ITP without reaction. Date of Last Stent Placement:: 01/2017 Past Psychological History: Anxiety Additional Psychological History / Comment(s): . Smoking Status: Current some day smoker Past Alcohol Use History: None Reported Additional Past Alcohol Use History / Comment(s): STARTED SMOKING AT AGE 18- SMOKED 1PPD AND QUIT -2017 Past Drug Use History: None Reported - Past Family History Mother Family Medical History: Cancer, Diabetes Mellitus Additional Family Medical History / Comment(s): Father had a defibrillator. He of heart dx in his 80's Father Family Medical History: Diabetes Mellitus Additional Family Medical History / Comment(s): HEART DISEASE Medications and Allergies Home Medications Medication Instructions Recorded Confirmed Type ALPRAZolam 0.25 mg PO BID PRN 11/03/15 09/07/18 History Solifenacin Succinate [Vesicare] 10 mg PO HS 04/12/16 09/07/18 History rOPINIRole HCL [Requip] 0.25 mg PO HS 04/12/16 09/07/18 History Pantoprazole [Protonix] 40 mg PO QAM PRN 01/14/17 09/07/18 History Aspirin 81 mg PO DAILY chew 01/17/17 09/07/18 Rx Nitroglycerin Sl Tabs [Nitrostat] 0.4 mg SUBLINGUAL Q5M PRN #21 tab 01/17/17 09/07/18 Rx Clopidogrel Bisulfate [Plavix] 75 mg PO DAILY 06/26/17 09/07/18 History Atorvastatin [Lipitor] 80 mg PO DAILY 08/31/17 09/07/18 History Budesonide-Formot 160-4.5 Mcg 2 puff INHALATION RT-BID 08/31/17 09/07/18 History [Symbicort 160-4.5 Mcg Inhaler] Ipratropium/Albuterol Sulfate 1 puff INHALATION RT-QID 08/31/17 09/07/18 History [Combivent Respimat Inhaler] Tamsulosin [Flomax] 0.4 mg PO DAILY #30 cap.er.24h 09/22/17 09/07/18 Rx Melatonin 3 mg PO HS tablet 09/28/17 09/07/18 Rx HYDROcodone/APAP 10-325MG [[place] 1 tab PO TID PRN 08/19/18 09/07/18 History 10-325] Metoprolol Tartrate [Lopressor] 12.5 mg PO BID #60 tab 08/22/18 09/07/18 Rx Insulin Detemir (Levemir) [Levemir] 30 unit SQ DAILY@1200 08/27/18 09/07/18 H istory Cephalexin [Keflex] 500 mg PO Q6H 09/06/18 09/07/18 History Baclofen [Lioresal] 5 mg PO TID PRN #30 tablet 09/07/18 Rx INSULIN ASPART (NovoLOG) [NovoLOG 1 unit SQ AC-TID 09/07/18 09/07/18 History (formulary)] traZODone HCL 50 mg PO HS 09/07/18 09/07/18 History Allergies Allergy/AdvReac Type Severity Reaction Status Date / Time No Known Allergies Allergy Verified 09/06/18 23:58 Physical Exam Vitals: Vital Signs Temp Pulse Pulse Pulse Pulse Resp BP 09/07/18 12:00 98.1 F 63 16 09/07/18 08:00 98.3 F 82 16 09/07/18 04:00 97.9 F 73 15 09/07/18 01:15 98.2 F 77 16 09/07/18 00:45 98.2 F 98 20 148/74 09/06/18 23:11 98.6 F 95 18 153/66 BP Pulse Ox 09/07/18 12:00 91/53 96 09/07/18 08:00 96/61 100 09/07/18 04:00 111/65 97 09/07/18 01:15 138/77 96 09/07/18 00:45 99 09/06/18 23:11 97 Intake and Output 09/06/18 09/07/18 09/07/18 22:59 06:59 14:59 Other: Voiding Method Self-Catheterization Self-Catheterization # Voids 2 Weight 54.431 kg PHYSICAL EXAMINATION: GENERAL: The patient is alert and oriented x3, not in any acute distress. Well developed, well nourished. HEENT: Pupils are round and equally reacting to light. EOMI. No scleral icterus. No conjunctival pallor. Normocephalic, atraumatic. No pharyngeal erythema. No thyromegaly. CARDIOVASCULAR: S1 and S2 present. No murmurs, rubs, or gallops. Reproducible chest pain as mentioned above, chest wall tenderness PULMONARY: Chest is clear to auscultation, no wheezing or crackles. ABDOMEN: Soft, nontender, nondistended, normoactive bowel sounds. No palpable organomegaly. MUSCULOSKELETAL: No joint swelling or deformity. EXTREMITIES: No cyanosis, clubbing, or pedal edema. NEUROLOGICAL: Gross neurological examination did not reveal any focal deficits. SKIN: No rashes. Results CBC & Chem 7: 09/07/18 06:09/06/18 23:19 Labs: Abnormal Lab Results - Last 24 Hours (Table) 09/06/18 09/06/18 09/07/18 Range/Units 23:19 23:19 06:19 WBC 11.4 H (3.8-10.6) k/uL Sodium 135 L (137-145) mmol/L BUN 19 H (7-17) mg/dL Glucose 366 H (74-99) mg/dL POC Glucose (mg/dL) (75-99) mg/dL AST 12 L (14-36) U/L Alkaline Phosphatase 129 H (38-126) U/L Total Protein 6.0 L (6.3-8.2) g/dL Triglycerides 276 H (<150) mg/dL HDL Cholesterol 29 L (40-60) mg/dL 09/07/18 09/07/18 Range/Units 06:42 11:37 WBC (3.8-10.6) k/uL Sodium (137-145) mmol/L BUN (7-17) mg/dL Glucose (74-99) mg/dL POC Glucose (mg/dL) 298 H 404 H (75-99) mg/dL AST (14-36) U/L Alkaline Phosphatase (38-126) U/L Total Protein (6.3-8.2) g/dL Triglycerides (<150) mg/dL HDL Cholesterol (40-60) mg/dL Thrombosis Risk Factor Assmnt - Choose All That Apply Any of the Below Risk Factors Present?: Yes Each Factor Represents 1 point: Abnormal pulmonary function (COPD), Hx of IBD Other Risk Factors: Yes Each Risk Factor Represents 2 Points: Age 61-74 years Other congenital or acquired thrombophilia - If yes, enter type in comment: No Thrombosis Risk Factor Assessment Total Risk Factor Score: 4 Thrombosis Risk Factor Assessment Level: Moderate Risk Assessment and Plan Plan: Chest pain: Rule out acute coronary syndromes, unstable angina patient has musculoskeletal chest pain patient the chest pain is relieved with nitroglycerin as she is having muscle spasms that were relieved by nitroglycerin. -Hypotension: This continuous inhibitor this point indication recent better patient has normal ejection fraction the past but probably this is being used because of her type 2 diabetes mellitus as nephro protective agent. Since her blood pressure is low on hold off this medication can be started as an outpatient if her blood pressure can tolerate it 7 gastroesophageal reflux disease type 2 diabetes mellitus uncontrolled blood sugars for the titration and management as an outpatient patient has elevated blood sugars are do not have any hemoglobin A1c available at this time -Coronary artery disease -Fibromyalgia -Nicotine abuse: Counseling was provided Anxiety disorder
--- NOTE | 2018-09-07 13:56 | P.DS ---
Providers Date of admission: 09/06/18 23:14 Attending physician: Madhu Ocampo Consults: 09/06/18 23:14 Consult Physician Urgent Consulting Provider: Hanh Veliz Consult Reason/Comments: cp Do you want consulting provider notified?: Yes Primary care physician: Nick Brock [facility] Course: Please refer to my HPI Patient Condition at Discharge: Undetermined Plan - Discharge Summary Discharge Rx Participant: No New Discharge Prescriptions: New Baclofen [Lioresal] 5 mg PO TID PRN #30 tablet PRN Reason: Spasms Discontinued Lisinopril [Prinivil] 5 mg PO DAILY@1300 #0 No Action ALPRAZolam 0.25 mg PO BID PRN PRN Reason: Anxiety rOPINIRole HCL [Requip] 0.25 mg PO HS Solifenacin Succinate [Vesicare] 10 mg PO HS Pantoprazole [Protonix] 40 mg PO QAM PRN PRN Reason: reflux Aspirin 81 mg PO DAILY chew Nitroglycerin Sl Tabs [Nitrostat] 0.4 mg SUBLINGUAL Q5M PRN #21 tab PRN Reason: Chest Pain Clopidogrel Bisulfate [Plavix] 75 mg PO DAILY Ipratropium/Albuterol Sulfate [Combivent Respimat Inhaler] 1 puff INHALATION RT-QID Budesonide-Formot 160-4.5 Mcg [Symbicort 160-4.5 Mcg Inhaler] 2 puff INHALATION RT-BID Atorvastatin [Lipitor] 80 mg PO DAILY Tamsulosin [Flomax] 0.4 mg PO DAILY #30 cap.er.24h Melatonin 3 mg PO HS tablet HYDROcodone/APAP 10-325MG [[place] 10-325] 1 tab PO TID PRN PRN Reason: Pain Metoprolol Tartrate [Lopressor] 12.5 mg PO BID #60 tab Insulin Detemir (Levemir) [Levemir] 30 unit SQ DAILY@1200 Cephalexin [Keflex] 500 mg PO Q6H INSULIN ASPART (NovoLOG) [NovoLOG (formulary)] 1 unit SQ AC-TID traZODone HCL 50 mg PO HS Discharge Medication List ALPRAZolam 0.25 mg PO BID PRN 11/03/15 [History] Solifenacin Succinate [Vesicare] 10 mg PO HS 04/12/16 [History] rOPINIRole HCL [Requip] 0.25 mg PO HS 04/12/16 [History] Pantoprazole [Protonix] 40 mg PO QAM PRN 01/14/17 [History] Aspirin 81 mg PO DAILY chew 01/17/17 [Rx] Nitroglycerin Sl Tabs [Nitrostat] 0.4 mg SUBLINGUAL Q5M PRN #21 tab 01/17/17 [Rx] Clopidogrel Bisulfate [Plavix] 75 mg PO DAILY 06/26/17 [History] Atorvastatin [Lipitor] 80 mg PO DAILY 08/31/17 [History] Budesonide-Formot 160-4.5 Mcg [Symbicort 160-4.5 Mcg Inhaler] 2 puff INHALATION RT-BID 08/31/17 [History] Ipratropium/Albuterol Sulfate [Combivent Respimat Inhaler] 1 puff INHALATION RT- QID 08/31/17 [History] Tamsulosin [Flomax] 0.4 mg PO DAILY #30 cap.er.24h 09/22/17 [Rx] Melatonin 3 mg PO HS tablet 09/28/17 [Rx] HYDROcodone/APAP 10-325MG [[place] 10-325] 1 tab PO TID PRN 08/19/18 [History] Metoprolol Tartrate [Lopressor] 12.5 mg PO BID #60 tab 08/22/18 [Rx] Insulin Detemir (Levemir) [Levemir] 30 unit SQ DAILY@1200 08/27/18 [History] Cephalexin [Keflex] 500 mg PO Q6H 09/06/18 [History] Baclofen [Lioresal] 5 mg PO TID PRN #30 tablet 09/07/18 [Rx] INSULIN ASPART (NovoLOG) [NovoLOG (formulary)] 1 unit SQ AC-TID 09/07/18 [History] traZODone HCL 50 mg PO HS 09/07/18 [History] Follow up Appointment(s)/Referral(s): Nick Brock MD [Primary Care Provider] - 3 Days Patient Instructions/Handouts: Chest Pain (ED) Discharge Disposition: HOME SELF-CARE
[2018-09-07 15:19] LABS: Glucose,Whole Blood 202 mg/dL (75-99)
[2018-09-07 15:25] VITALS: BP 127/60; PULSE 86
[2018-09-07] MEDS ORDERED: TROSPIUM CHLORIDE 20 MG TABLET PO SCH (21:00)
[2018-09-07] MEDS ORDERED: traZODone HCL 50 MG TAB PO SCH (21:00)
[2018-09-07] MEDS ORDERED: MELATONIN 3 MG TABLET PO SCH (21:00)
[2018-09-08] MEDS ORDERED: ASPIRIN 81 MG PO SCH (09:00)
[2018-09-08] MEDS ORDERED: ATORVASTATIN 80 MG TAB PO SCH (09:00)
== END 2018-09-07 15:39 | disposition home or self-care (01) ==
LOC: EC 23:10 → 1SOBS 23:14
PROVIDERS: ADMIT Hospitalist; ATTEND Hospitalist
DX: R07.89 Other chest pain (principal); M62.838 Other muscle spasm; E11.65 Type 2 diabetes mellitus with hyperglycemia; I25.10 Atherosclerotic heart disease of native coronary artery without angina pectoris; I95.9 Hypotension, unspecified; K21.9 Gastro-esophageal reflux disease without esophagitis; M79.7 Fibromyalgia; K58.9 Irritable bowel syndrome, unspecified; G25.81 Restless legs syndrome; D69.3 Immune thrombocytopenic purpura; K44.9 Diaphragmatic hernia without obstruction or gangrene; I10 Essential (primary) hypertension; E78.5 Hyperlipidemia, unspecified; J44.9 Chronic obstructive pulmonary disease, unspecified; F17.200 Nicotine dependence, unspecified, uncomplicated; F41.9 Anxiety disorder, unspecified; Z79.82 Long term (current) use of aspirin; Z79.02 Long term (current) use of antithrombotics/antiplatelets; Z79.4 Long term (current) use of insulin; Z79.51 Long term (current) use of inhaled steroids; Z79.899 Other long term (current) drug therapy; I25.2 Old myocardial infarction; Z87.11 Personal history of peptic ulcer disease; Z90.710 Acquired absence of both cervix and uterus; Z90.49 Acquired absence of other specified parts of digestive tract; Z95.5 Presence of coronary angioplasty implant and graft; Z87.19 Personal history of other diseases of the digestive system; Z85.118 Personal history of other malignant neoplasm of bronchus and lung; Z90.2 Acquired absence of lung [part of]; Z83.3 Family history of diabetes mellitus; Z82.49 Family history of ischemic heart disease and other diseases of the circulatory system; Z80.9 Family history of malignant neoplasm, unspecified
CPT/HCPCS: 96361; 96374; 99291; 36415; 93005; 85379; 83880; 80061; 80053; 83690; 83735; 84484 ×2; 85025; 85049; 85610; 85730 ×2; 71046; G0378 ×2; J1644 ×2

== ENCOUNTER 2018-10-26 16:51 | Inpatient (IN) | payer MEDICARE, OTHER ==
[2018-10-26] MEDS ORDERED: SODIUM CHLORIDE 0.9% 1,000 ML IV STA ×2 (17:30)
[2018-10-26] MEDS ORDERED: MORPHINE SULFATE 4 MG/ML SYRINGE IVP STA ×2 (17:46→19:42)
[2018-10-26] MEDS ORDERED: ONDANSETRON 4 MG/2 ML VIAL IVP STA (17:46)
[2018-10-26 17:59] LABS: Basophils % (A) 0 %; Eosinophils # (A) 0.2 k/uL (0-0.7); Eosinophils % (A) 2 %; HGB 14.2 gm/dL (11.4-16.0); Lymphocytes # (A) 2.1 k/uL (1.0-4.8); Lymphocytes % (A) 23 %; MCH 28.4 pg (25.0-35.0); MCHC 32.1 g/dL (31.0-37.0); MCV 88.5 fL (80.0-100.0); Mean Platelet Volume 7.7; Monocytes # (A) 0.8 k/uL (0-1.0); Monocytes % (A) 9 %; Neutrophils # (A) 5.7 k/uL (1.3-7.7); Neutrophils % (A) 64 %; Platelet Count 285 k/uL (150-450); RBC 4.98 m/uL (3.80-5.40); RDW 15.5 % (11.5-15.5); WBC 8.9 k/uL (3.8-10.6)
[2018-10-26 18:01] LABS: Appearance,Urine Cloudy (Clear); Bacteria,Urine Occasional /hpf; Bilirubin,Urine Negative (Negative); Blood,Urine Negative (Negative); Color,Urine Yellow; Glucose,Urine (UA) 3+ (Negative); Hyaline Casts,Urine 40 /lpf (0-2); Ketones,Urine Negative (Negative); Leukocyte Esterase,Urine Moderate (Negative); Mucus,Urine Occasional /hpf; Nitrite,Urine Negative (Negative); Protein,Urine 1+ (Negative); RBC,Urine 4 /hpf (0-5); Squamous Epithelial Cell,Urine 21 /hpf (0-4); WBC,Urine 26 /hpf (0-5)
[2018-10-26 18:15] LABS: ALT 29 U/L (9-52); AST 20 U/L (14-36); African American GFR (CKD) >90 (>60 ml/min/1.73 sqM); Albumin 3.8 g/dL (3.5-5.0); Alkaline Phosphatase 111 U/L (38-126); Amylase <30 U/L (30-110); Anion Gap 9 mmol/L; Blood Urea Nitrogen 28 mg/dL (7-17); Calcium 9.5 mg/dL (8.4-10.2); Carbon Dioxide 21 mmol/L (22-30); Chloride 103 mmol/L (98-107); Glucose 305 mg/dL (74-99); Potassium 4.7 mmol/L (3.5-5.1); Sodium 133 mmol/L (137-145); Total Bilirubin 0.5 mg/dL (0.2-1.3); Total Protein 6.4 g/dL (6.3-8.2)
--- NOTE | 2018-10-26 18:53 | ED ---
General Adult HPI - General Chief complaint: Nausea/Vomiting/Diarrhea Stated complaint: abdominal pain/hernia Time Seen by Provider: 10/26/18 17:08 Source: patient, RN notes reviewed, old records reviewed Mode of arrival: ambulatory Limitations: no limitations - History of Present Illness Initial comments: Patient is a 68-year-old female with diffuse abdominal pain for the past 24 hours episodes of vomiting. She states that she's been having some epigastric abdominal pain. She has extensive surgical history including cholecystectomy, bowel resection, bladder slings. She states she's not had a bowel movement 2 days. Patient states that she's had history of bowel obstructions. She denies any changes in urination. She denies any fever but does report some chills. She reports a history of lung removals has chronic dyspnea but states that this is not worsening than previous. - Related Data Home Medications Medication Instructions Recorded Confirmed ALPRAZolam 0.25 mg PO BID PRN 11/03/15 09/07/18 Solifenacin Succinate [Vesicare] 10 mg PO HS 04/12/16 09/07/18 rOPINIRole HCL [Requip] 0.25 mg PO HS 04/12/16 09/07/18 Pantoprazole [Protonix] 40 mg PO QAM PRN 01/14/17 09/07/18 Clopidogrel Bisulfate [Plavix] 75 mg PO DAILY 06/26/17 09/07/18 Atorvastatin [Lipitor] 80 mg PO DAILY 08/31/17 09/07/18 Budesonide-Formot 160-4.5 Mcg 2 puff INHALATION RT-BID 08/31/17 09/07/18 [Symbicort 160-4.5 Mcg Inhaler] Ipratropium/Albuterol Sulfate 1 puff INHALATION RT-QID 08/31/17 09/07/18 [Combivent Respimat Inhaler] HYDROcodone/APAP 10-325MG [[place] 1 tab PO TID PRN 08/19/18 09/07/18 10-325] Insulin Detemir (Levemir) [Levemir] 30 unit SQ DAILY@1200 08/27/18 09/07/18 Cephalexin [Keflex] 500 mg PO Q6H 09/06/18 09/07/18 INSULIN ASPART (NovoLOG) [NovoLOG 1 unit SQ AC-TID 09/07/18 09/07/18 (formulary)] traZODone HCL 50 mg PO HS 09/07/18 09/07/18 Previous Rx's Medication Instructions Recorded Aspirin 81 mg PO DAILY chew 01/17/17 Nitroglycerin Sl Tabs [Nitrostat] 0.4 mg SUBLINGUAL Q5M PRN #21 tab 01/17/17 Tamsulosin [Flomax] 0.4 mg PO DAILY #30 cap.er.24h 09/22/17 Melatonin 3 mg PO HS tablet 09/28/17 Metoprolol Tartrate [Lopressor] 12.5 mg PO BID #60 tab 08/22/18 Baclofen [Lioresal] 5 mg PO TID PRN #30 tablet 09/07/18 Allergies Allergy/AdvReac Type Severity Reaction Status Date / Time No Known Allergies Allergy Verified 10/26/18 19:36 Review of Systems ROS Statement: Those systems with pertinent positive or pertinent negative responses have been documented in the HPI. ROS Other: All systems not noted in ROS Statement are negative. Past Medical History Past Medical History: Coronary Artery Disease (CAD), Diabetes Mellitus, Fibromyalgia, GERD/Reflux, Myocardial Infarction ([place]) Additional Past Medical History / Comment(s): Idiopathic thrombocytopenia purpura, IBS, diverticulitis, hiatal hernia, 2 herniated discs-L3/L4, Restless Leg Syndrome, gastritis, superficial gastric ulcers. nodule on lt lung-Cancer Stg 1 Last Myocardial Infarction Date:: 01/2017 History of Any Multi-Drug Resistant Organisms: None Reported Past Surgical History: Adenoidectomy, Bladder Surgery, Bowel Resection, Cholecystectomy, Heart Catheterization With Stent, Hernia Repair, Hysterectomy, Tonsillectomy Additional Past Surgical History / Comment(s): BLADDER SUSPENSION x 2, breast biopsy x3, bowel resection due to rupture. left upper lobe of lung removed per [place], Past Anesthesia/Blood Transfusion Reactions: No Reported Reaction Additional Past Anesthesia/Blood Transfusion Reaction / Comment(s): Pt received blood in 2005 due to ITP without reaction. Date of Last Stent Placement:: 01/2017 Past Psychological History: Anxiety Smoking Status: Current some day smoker Past Alcohol Use History: None Reported Past Drug Use History: None Reported - Past Family History Mother Family Medical History: Cancer, Diabetes Mellitus Additional Family Medical History / Comment(s): Father had a defibrillator. He of heart dx in his 80's Father Family Medical History: Diabetes Mellitus Additional Family Medical History / Comment(s): HEART DISEASE General Exam - General Exam Comments Initial Comments: Alert and oriented 68-year-old female. No distress. General: Well appearing, well nourished, in no distress. Oriented x 3, normal mood and affect . Ambulating without difficulty. Skin: Good turgor, no rash, unusual bruising or prominent lesions Hair: Normal texture and distribution. HEENT: Head: Normocephalic, atraumatic, no visible or palpable masses, depressions, or scaring. Eyes: Visual acuity intact, conjunctiva clear, sclera non-icteric, EOM intact, PERRL. Ears: EACs clear, TMs translucent & cone of light visualized. hearing intact. Nose: No external lesions, mucosa non-inflamed, septum and turbinates normal Mouth: Mucous membranes moist, no mucosal lesions. Teeth/Gums: No obvious caries or periodontal disease. No gingival inflammation or significant resorption. Pharynx: Mucosa non-inflamed, no tonsillar hypertrophy or exudate Neck: Supple, without lesions, bruits, or adenopathy, thyroid non-enlarged and non-tender Heart: No cardiomegaly or thrills; regular rate and rhythm, no murmur or gallop Lungs: Clear to auscultation and percussion Abdomen: Minimal bowel sounds. Tenderness to palpation over the right lower quadrant epigastric region. Back: Spine normal without deformity or tenderness, no CVA tenderness Extremities: No amputations or deformities, cyanosis, edema or varicosities, peripheral pulses intact Musculoskeletal: Normal gait and station. No misalignment, asymmetry, crepitation, defects, tenderness, masses, effusions, decreased range of motion, instability, atrophy or abnormal strength or tone in the head, neck, spine, ribs, pelvis or extremities. Neurologic: CN 2-12 normal. Sensation to pain, touch, and proprioception normal. DTRs normal in upper and lower extremities. No pathologic reflexes. Psychiatric: Oriented X3, intact recent and remote memory, judgment and insight, normal mood and affect. Limitations: no limitations Course Vital Signs 10/26/18 10/26/18 10/26/18 17:02 19:15 19:37 Temperature 97.7 F 98 F Pulse Rate 92 96 102 H Respiratory 16 18 18 Rate Blood Pressure 113/64 120/65 139/61 O2 Sat by Pulse 98 95 95 Oximetry Medical Decision Making - Medical Decision Making Patient is a 68-year-old female with extensive surgical history. Patient's surgeon is Dr. Mckenzie. She said history of bowel resection after perforation cholecystectomy. She presents today with epigastric abdominal pain episodes of vomiting. She diffuse tenderness. No bowel sounds auscultated on exam. CT shows evidence of concern for a developing distal small bowel obstruction r elated to adhesions with first extensive history. Patient was given IV fluids. She is given morphine and Ativan and NG tube was ordered for nursing staff. Patient's case discussed with Dr. Humphreys. Patient will be admitted under the Dr. santiago at this time. - Lab Data Result diagrams: 10/26/18 17:41 10/26/18 17:41 Lab Results 10/26/18 10/26/18 10/26/18 Range/Units 17:41 17:41 17:41 WBC 8.9 (3.8-10.6) k/uL RBC 4.98 (3.80-5.40) m/uL Hgb 14.2 (11.4-16.0) gm/dL Hct 44.0 (34.0-46.0) % MCV 88.5 (80.0-100.0) fL MCH 28.4 (25.0-35.0) pg MCHC 32.1 (31.0-37.0) g/dL RDW 15.5 (11.5-15.5) % Plt Count 285 (150-450) k/uL Neutrophils % 64 % Lymphocytes % 23 % Monocytes % 9 % Eosinophils % 2 % Basophils % 0 % Neutrophils # 5.7 (1.3-7.7) k/uL Lymphocytes # 2.1 (1.0-4.8) k/uL Monocytes # 0.8 (0-1.0) k/uL Eosinophils # 0.2 (0-0.7) k/uL Basophils # 0.0 (0-0.2) k/uL Sodium 133 L (137-145) mmol/L Potassium 4.7 (3.5-5.1) mmol/L Chloride 103 (98-107) mmol/L Carbon Dioxide 21 L (22-30) mmol/L Anion Gap 9 mmol/L BUN 28 H (7-17) mg/dL Creatinine 0.75 (0.52-1.04) mg/dL Est GFR (CKD-EPI)AfAm >90 (>60 ml/min/1.73 sqM) Est GFR (CKD-EPI)NonAf 81 (>60 ml/min/1.73 sqM) Glucose 305 H (74-99) mg/dL Calcium 9.5 (8.4-10.2) mg/dL Total Bilirubin 0.5 (0.2-1.3) mg/dL AST 20 (14-36) U/L ALT 29 (9-52) U/L Alkaline Phosphatase 111 (38-126) U/L Total Protein 6.4 (6.3-8.2) g/dL Albumin 3.8 (3.5-5.0) g/dL Amylase <30 L (30-110) U/L Lipase 49 (23-300) U/L Urine Color Yellow Urine Appearance Cloudy H (Clear) Urine pH 5.0 (5.0-8.0) Ur Specific [place] 1.030 (1.001-1.035) Urine Protein 1+ H (Negative) Urine Glucose (UA) 3+ H (Negative) Urine Ketones Negative (Negative) Urine Blood Negative (Negative) Urine Nitrite Negative (Negative) Urine Bilirubin Negative (Negative) Urine Urobilinogen 3.0 (<2.0) mg/dL Ur Leukocyte Esterase Moderate H (Negative) Urine RBC 4 (0-5) /hpf Urine WBC 26 H (0-5) /hpf Ur Squamous Epith Cells 21 H (0-4) /hpf Urine Bacteria Occasional H (None) /hpf Hyaline Casts 40 H (0-2) /lpf Urine Mucus Occasional H (None) /hpf - Radiology Data Radiology results: report reviewed Suspect developing distal small bowel obstruction. A small to moderate amount of free fluid in the pelvis is noted. Disposition Clinical Impression: Small bowel obstruction Disposition: ADMITTED IP TO THIS HOSP Condition: Stable Is patient prescribed a controlled substance at d/c from ED?: No Referrals: Nick Brock MD [Primary Care Provider] - 1-2 days Time of Disposition: 19:49
--- NOTE | 2018-10-26 19:17 | CT ---
EXAMINATION TYPE: CT abdomen pelvis w con DATE OF EXAM: 10/26/2018 HISTORY: Epigastric pain with vomiting, history of bowel and lung cancer CT DLP: 628.2mGycm Automated Exposure Control for Dose Reduction was Utilized. CONTRAST: CT scan of the abdomen and pelvis is performed with IV Contrast, patient injected with 100 mL of Isov ue 300. COMPARISON: PET CT September 14, 2018. MRI abdomen August 14, 2018 FINDINGS: LUNG BASES: Elevated left hemidiaphragm is redemonstrated. LIVER/GB: Gallbladder redemonstrated surgically absent. Mild central hepatic and extra hepatic biliar y dilatation again seen is common bile duct measures up to 13 mm coronal image 44. PANCREAS: Visualization pancreatic duct redemonstrated mildly dilated in the head without new from re cent PET/CT without obstructing mass or calculus clearly seen. Overall likely no significant change f rom MRI abdomen August 21, 2018. SPLEEN: No significant abnormality is seen. ADRENALS: Persistent nonspecific left adrenal mass is 1.8 cm mass effect image 21 and 1.7 cm mass axi al image 24, inferior may be increased in size from recent abdominal MRI. No abnormal hypermetabolic uptake in recent pet CT noted. KIDNEYS: Simple appearing thin-walled cyst upper to mid pole of the left kidney redemonstrated. Small er adjacent cysts again seen. BOWEL: Evaluation bowel suboptimal secondary to lack of enteric contrast. There are prominent and dil ated small bowel loops with multiple air-fluid levels. Peripheral colon shows fecal material and is n ondistended. Small bowel feces sign in the right abdomen. Transition point not clearly identified. Pastor rgical sutures distal sigmoid colon left pelvis axial image 65 noted. Some nondilated distal small jose luis wel loops in the pelvis are present. UTERUS/[place]EXA: Uterus is surgically absent or markedly atrophic small to moderate amount of free flui d in pelvis eczema 69 noted. LYMPH NODES: No greater than 1cm abdominal or pelvic lymph nodes are appreciated. OSSEOUS STRUCTURES: Moderate to severe narrowing with vacuum disc phenomenon at L4-L5 and L5-S1 level s redemonstrated. OTHER: Moderate to severe plaque of the aorta extends into branch vessels. IMPRESSION: 1. Suspect developing distal small bowel obstruction as detailed above. Small to moderate amount of f ree fluid in pelvis is noted.
[2018-10-26] MEDS ORDERED: LORazepam 2 MG/ML INJ IV STA (19:42)
[2018-10-26] MEDS ORDERED: ONDANSETRON 4 MG/2 ML VIAL IVP PRN (19:50)
[2018-10-26] MEDS ORDERED: NALOXONE 0.4 MG/ML 1 ML VIAL IV PRN (19:50)
[2018-10-26 21:08] LABS: Glucose,Whole Blood 200 mg/dL (75-99)
--- NOTE | 2018-10-26 21:11 | XR ---
EXAMINATION TYPE: XR chest 1V confirm line [facility] DATE OF EXAM: 10/26/2018 CLINICAL HISTORY: NG tube placement. Known lung cancer. TECHNIQUE: Single AP portable upright view of the chest is obtained. COMPARISON: Chest x-ray from September 06, 2018. PET/CT September 14, 2018. FINDINGS: There is redemonstration of left-sided volume loss with left hilar scarring and background chronic emphysematous change. Left suprahilar nodularity without hypermetabolic uptake is redemonstr ated. No new suspicious focal airspace opacity, pleural effusion, or pneumothorax. Cardiac silhouette size remains within normal limits without prescribed thoracic aorta. Osseous structures remain demin eralized. New nasogastric tube tip only seen to the distal esophageal level, advise advancing 8 to 10 cm. IMPRESSION: As above, nasogastric tube felt terminating in distal esophagus.
[2018-10-27] MEDS ORDERED: NITROGLYCERIN SL TABS 0.4 MG TAB SUBLINGUAL PRN (00:20)
[2018-10-27] MEDS ORDERED: INSULIN ASPART (NovoLOG) 100 UNIT/ML VIAL SQ SCH (01:15)
[2018-10-27 01:28] LABS: Glucose,Whole Blood 163 mg/dL (75-99)
[2018-10-27] MEDS: MELATONIN 3 MG TABLET PO SCH ×2 (01:38→20:35)
[2018-10-27] MEDS: TROSPIUM CHLORIDE 20 MG TABLET PO SCH ×3 (01:42→20:36)
[2018-10-27] MEDS: traZODone HCL 50 MG TAB PO SCH ×2 (01:42→20:36)
[2018-10-27] MEDS: METOPROLOL TARTRATE 25 MG TAB PO SCH ×3 (01:42→20:39)
[2018-10-27] MEDS: SODIUM CHLORIDE 0.9% 1,000 ML IV SCH ×3 (01:43→19:32)
[2018-10-27] MEDS: INSULIN ASPART (NovoLOG) 100 UNIT/ML VIAL SQ SCH ×4 (02:27→19:15)
[2018-10-27 08:06] LABS: Glucose,Whole Blood 108 mg/dL (75-99)
[2018-10-27] MEDS: IPRATROPIUM-ALBUTEROL 3 ML NEB INHALATION SCH ×4 (08:12→20:23)
[2018-10-27] MEDS: SYMBICORT 160-4.5 MCG INHALER INHALATION SCH ×2 (08:12→20:23)
[2018-10-27] MEDS ORDERED: ATORVASTATIN 80 MG TAB PO SCH (09:00)
[2018-10-27] MEDS: CLOPIDOGREL 75 MG TAB PO SCH (10:16)
[2018-10-27] MEDS: ASPIRIN 81 MG PO SCH (10:16)
[2018-10-27] MEDS: TAMSULOSIN 0.4 MG CAP.ER.24H PO SCH (10:16)
--- NOTE | 2018-10-27 10:16 | P.GSHP ---
History of Present Illness H&P Date: 10/27/18 Chief Complaint: Small bowel obstruction This is a 68-year-old female who was admitted to the hospital complaints of nausea vomiting abdominal pain. Her CAT scan shows evidence of a small bowel obstruction. Patient's had a nasogastric tube placed. She states she feels sli ghtly better with NG tube decompression overnight. She's had no further vomiting. She's had no stool or flatus. Past Medical History Past Medical History: Coronary Artery Disease (CAD), Diabetes Mellitus, Fibromyalgia, GERD/Reflux, Myocardial Infarction ([place]) Additional Past Medical History / Comment(s): Idiopathic thrombocytopenia purpura, IBS, diverticulitis, hiatal hernia, 2 herniated discs-L3/L4, Restless Leg Syndrome, gastritis, superficial gastric ulcers. nodule on lt lung-Cancer Stg 1 Last Myocardial Infarction Date:: 01/2017 History of Any Multi-Drug Resistant Organisms: None Reported Past Surgical History: Adenoidectomy, Bladder Surgery, Bowel Resection, Cholecystectomy, Heart Catheterization With Stent, Hernia Repair, Hysterectomy, Tonsillectomy Additional Past Surgical History / Comment(s): BLADDER SUSPENSION x 2, breast biopsy x3, bowel resection due to rupture. left upper lobe of lung removed per CA, Past Anesthesia/Blood Transfusion Reactions: No Reported Reaction Additional Past Anesthesia/Blood Transfusion Reaction / Comment(s): Pt received blood in 2005 due to ITP without reaction. Date of Last Stent Placement:: 01/2017 Past Psychological History: Anxiety Additional Psychological History / Comment(s): . Smoking Status: Current some day smoker Past Alcohol Use History: None Reported Additional Past Alcohol Use History / Comment(s): STARTED SMOKING AT AGE 18- SMOKED 1PPD AND QUIT -2017 Past Drug Use History: None Reported - Past Family History Mother Family Medical History: Cancer, Diabetes Mellitus Additional Family Medical History / Comment(s): Father had a defibrillator. He of heart dx in his 80's Father Family Medical History: Diabetes Mellitus Additional Family Medical History / Comment(s): HEART DISEASE Medications and Allergies Home Medications Medication Instructions Recorded Confirmed Type ALPRAZolam 0.25 mg PO BID PRN 11/03/15 10/26/18 History Solifenacin Succinate [Vesicare] 10 mg PO HS 04/12/16 10/26/18 History rOPINIRole HCL [Requip] 0.25 mg PO HS 04/12/16 10/26/18 History Pantoprazole [Protonix] 40 mg PO QAM PRN 01/14/17 10/26/18 History Aspirin 81 mg PO DAILY chew 01/17/17 10/26/18 Rx Nitroglycerin Sl Tabs [Nitrostat] 0.4 mg SUBLINGUAL Q5M PRN #21 tab 01/17/17 10/26/18 Rx Clopidogrel Bisulfate [Plavix] 75 mg PO DAILY 06/26/17 10/26/18 History Atorvastatin [Lipitor] 80 mg PO DAILY 08/31/17 10/26/18 History Budesonide-Formot 160-4.5 Mcg 2 puff INHALATION RT-BID 08/31/17 10/26/18 History [Symbicort 160-4.5 Mcg Inhaler] Ipratropium/Albuterol Sulfate 1 puff INHALATION RT-QID 08/31/17 10/26/18 History [Combivent Respimat Inhaler] Tamsulosin [Flomax] 0.4 mg PO DAILY #30 cap.er.24h 09/22/17 10/26/18 Rx Melatonin 3 mg PO HS tablet 09/28/17 10/26/18 Rx HYDROcodone/APAP 10-325MG [[place] 1 tab PO TID PRN 08/19/18 10/26/18 History 10-325] Metoprolol Tartrate [Lopressor] 12.5 mg PO BID #60 tab 08/22/18 10/26/18 Rx Insulin Detemir (Levemir) [Levemir] 30 unit SQ DAILY@1200 08/27/18 10/26/18 History Baclofen [Lioresal] 5 mg PO TID PRN #30 tablet 09/07/18 10/26/18 Rx INSULIN ASPART (NovoLOG) [NovoLOG See Protocol SQ AC-TID 09/07/18 10/26/18 History (formulary)] traZODone HCL 50 mg PO HS 09/07/18 10/26/18 History Allergies Allergy/AdvReac Type Severity Reaction Status Date / Time No Known Allergies Allergy Verified 10/26/18 23:18 Surgical - Exam Vital Signs Temp Pulse Resp BP Pulse Ox 97.7 F 92 16 113/64 98 10/26/18 17:02 10/26/18 17:02 10/26/18 17:02 10/26/18 17:02 10/26/18 17:02 - General well developed, well nourished, no distress - Eyes PERRL - ENT normal pinna - Neck no masses - Respiratory normal expansion - Cardiovascular Rhythm: regular - Abdomen Mild tenderness Abdomen: soft Results - Labs 10/26/18 17:41 10/26/18 17:41 Abnormal Lab Results - Last 24 Hours (Table) 10/26/18 10/26/18 10/26/18 Range/Units 17:41 17:41 21:06 Sodium 133 L (137-145) mmol/L Carbon Dioxide 21 L (22-30) mmol/L BUN 28 H (7-17) mg/dL Glucose 305 H (74-99) mg/dL POC Glucose (mg/dL) 200 H (75-99) mg/dL Amylase <30 L (30-110) U/L Urine Appearance Cloudy H (Clear) Urine Protein 1+ H (Negative) Urine Glucose (UA) 3+ H (Negative) Ur Leukocyte Esterase Moderate H (Negative) Urine WBC 26 H (0-5) /hpf Ur Squamous Epith Cells 21 H (0-4) /hpf Urine Bacteria Occasional H (None) /hpf Hyaline Casts 40 H (0-2) /lpf Urine Mucus Occasional H (None) /hpf 10/27/18 10/27/18 Range/Units 01:26 08:04 Sodium (137-145) mmol/L Carbon Dioxide (22-30) mmol/L BUN (7-17) mg/dL Glucose (74-99) mg/dL POC Glucose (mg/dL) 163 H 108 H (75-99) mg/dL Amylase (30-110) U/L Urine Appearance (Clear) Urine Protein (Negative) Urine Glucose (UA) (Negative) Ur Leukocyte Esterase (Negative) Urine WBC (0-5) /hpf Ur Squamous Epith Cells (0-4) /hpf Urine Bacteria (None) /hpf Hyaline Casts (0-2) /lpf Urine Mucus (None) /hpf Diabetes panel 10/26/18 Range/Units 17:41 Sodium 133 L (137-145) mmol/L Potassium 4.7 (3.5-5.1) mmol/L Chloride 103 (98-107) mmol/L Carbon Dioxide 21 L (22-30) mmol/L BUN 28 H (7-17) mg/dL Creatinine 0.75 (0.52-1.04) mg/dL Glucose 305 H (74-99) mg/dL Calcium 9.5 (8.4-10.2) mg/dL AST 20 (14-36) U/L ALT 29 (9-52) U/L Alkaline Phosphatase 111 (38-126) U/L Total Protein 6.4 (6.3-8.2) g/dL Albumin 3.8 (3.5-5.0) g/dL Calcium panel 10/26/18 Range/Units 17:41 Calcium 9.5 (8.4-10.2) mg/dL Albumin 3.8 (3.5-5.0) g/dL Pituitary panel 10/26/18 Range/Units 17:41 Sodium 133 L (137-145) mmol/L Potassium 4.7 (3.5-5.1) mmol/L Chloride 103 (98-107) mmol/L Carbon Dioxide 21 L (22-30) mmol/L BUN 28 H (7-17) mg/dL Creatinine 0.75 (0.52-1.04) mg/dL Glucose 305 H (74-99) mg/dL Calcium 9.5 (8.4-10.2) mg/dL Adrenal panel 10/26/18 Range/Units 17:41 Sodium 133 L (137-145) mmol/L Potassium 4.7 (3.5-5.1) mmol/L Chloride 103 (98-107) mmol/L Carbon Dioxide 21 L (22-30) mmol/L BUN 28 H (7-17) mg/dL Creatinine 0.75 (0.52-1.04) mg/dL Glucose 305 H (74-99) mg/dL Calcium 9.5 (8.4-10.2) mg/dL Total Bilirubin 0.5 (0.2-1.3) mg/dL AST 20 (14-36) U/L ALT 29 (9-52) U/L Alkaline Phosphatase 111 (38-126) U/L Total Protein 6.4 (6.3-8.2) g/dL Albumin 3.8 (3.5-5.0) g/dL Assessment and Plan Assessment: Small bowel obstruction most likely due to adhesions from previous surgery. Patient will have an NG tube placed for decompression. We will repeat her CAT scan tomorrow.
[2018-10-27] MEDS: BACLOFEN 10 MG TAB PO PRN (10:18)
[2018-10-27] MEDS: MORPHINE SULFATE 4 MG/ML SYRINGE IV PRN ×3 (10:22→21:51)
[2018-10-27] MEDS: PANTOPRAZOLE 40 MG/10 ML VIAL IV SCH (13:45)
[2018-10-27 14:02] LABS: Glucose,Whole Blood 100 mg/dL (75-99)
--- NOTE | 2018-10-27 14:19 | P.CONS ---
History of Present Illness - Reason for Consult Consult date: 10/27/18 Medical management Requesting physician: Ricci Fang - Chief Complaint Vomiting abdominal pain - History of Present Illness History of presenting complaint: This is a pleasant 68-year-old patient of Dr. engel from [place]. Chronic stable medical conditions include coronary artery disease with stent, diabetes type 2, fibromyalgia, GERD, ITP, irritable bowel syndrome, hiatal hernia, chronic herniated disc at L3-L4, restless leg syndrome, gastritis. Patient ye sterday started of with nausea followed by multiple episodes of vomiting and diffuse abdominal pain. No fever no chills. Pain did not radiate anywhere. No exacerbating or relieving factors. Presented to the ER. Computed tomography scan of the abdomen showed developing distal small bowel obstruction. Some amount of free fluid in the pelvis was noted. NG tube was placed. Admitted for the same. Seen by Dr. Fang from general surgery. Review of systems: GEN.: Tired EYES: None HEENT: None NECK: None RESPIRATORY: None CARDIOVASCULAR: None GASTROINTESTINAL: As above GENITOURINARY: None MUSCULOSKELETAL: Chronic low back pain, pain in the joints LYMPHATICS: None HEMATOLOGICAL: None PSYCHIATRY: None NEUROLOGICAL: None Past medical history: Coronary artery disease with stent, diabetes mellitus type 2, fibromyalgia, GERD, ITP, irritable bowel syndrome, hiatal hernia, herniated disc at L3-L4, restless leg syndrome, gastritis Social history: Smoked for 47 years a pack a day stopped in June 2017. No alcohol Physical examination: VITAL SIGNS: 98, 91, 18, 119/69, 94% room air GENERAL: BMI 21.8, laying in bed, tired appearing anxious. EYES: Pupils equal. Conjunctiva normal. HEENT: External appearance of nose and ears normal, oral cavity dry with NG tube in place. NECK: JVD not raised; masses not palpable. HEART: First and second heart sounds are normal; no edema. LUNGS: Respiratory rate normal; decreased breath sounds. ABDOMEN: Soft, diffuse tenderness, no guarding or rigidity, pulse is present, liver spleen not palpable, no masses palpable. PSYCH: [Alert and oriented x3; mood and affect anxious l. NEUROLOGICAL: Cranial nerves grossly intact; no facial asymmetry, power and sensation grossly intact. LYMPHATICS: No lymph nodes palpable in the axilla and neck MUSCULOSKELETAL: Evidence of OA INVESTIGATIONS, reviewed in the clinical context: White count 8.9 hemoglobin 14.2 potassium 4.7 bun 28 creatinine 0.75 Accu-Cheks 263 Chest x-ray film showing NG tube in place no infiltrates Computed tomography scan of the abdomen shows developing small bowel obstruction Assessment: -Acute small bowel obstruction -Coronary artery disease with stent -Diabetes mellitus type 2 -Chronic fibromyalgia -GERD -Chronic ITP -Irritable bowel syndrome -Chronic hiatal hernia -Chronic cardiogenic disc at L3-L4 with pain -Restless leg syndrome -Primary osteoarthritis Plan: NG tube was placed. Some improvement. Abdominal pain still present. Home medications resumed. IV fluids. Lovenox for DVT prophylaxis. Present time abdomen does not appear to be surgical. Thank you Dr. Fang Past Medical History Past Medical History: Coronary Artery Disease (CAD), Diabetes Mellitus, Fibromyalgia, GERD/Reflux, Myocardial Infarction ([place]) Additional Past Medical History / Comment(s): Idiopathic thrombocytopenia purpura, IBS, diverticulitis, hiatal hernia, 2 herniated discs-L3/L4, Restless Leg Syndrome, gastritis, superficial gastric ulcers. nodule on lt lung-Cancer Stg 1 Last Myocardial Infarction Date:: 01/2017 History of Any Multi-Drug Resistant Organisms: None Reported Past Surgical History: Adenoidectomy, Bladder Surgery, Bowel Resection, Cholecystectomy, Heart Catheterization With Stent, Hernia Repair, Hysterectomy, Tonsillectomy Additional Past Surgical History / Comment(s): BLADDER SUSPENSION x 2, breast biopsy x3, bowel resection due to rupture. left upper lobe of lung removed per CA, Past Anesthesia/Blood Transfusion Reactions: No Reported Reaction Additional Past Anesthesia/Blood Transfusion Reaction / Comm: Pt received blood in 2005 due to ITP without reaction. Date of Last Stent Placement:: 01/2017 Past Psychological History: Anxiety Additional Psychological History / Comment(s): . Smoking Status: Current some day smoker Past Alcohol Use History: None Reported Additional Past Alcohol Use History / Comment(s): STARTED SMOKING AT AGE 18- SMOKED 1PPD AND QUIT 4-2017 Past Drug Use History: None Reported - Past Family History Mother Family Medical History: Cancer, Diabetes Mellitus Additional Family Medical History / Comment(s): Father had a defibrillator. He of heart dx in his 80's Father Family Medical History: Diabetes Mellitus Additional Family Medical History / Comment(s): HEART DISEASE Medications and Allergies Home Medications Medication Instructions Recorded Confirmed Type ALPRAZolam 0.25 mg PO BID PRN 11/03/15 10/26/18 History Solifenacin Succinate [Vesicare] 10 mg PO HS 04/12/16 10/26/18 History rOPINIRole HCL [Requip] 0.25 mg PO HS 04/12/16 10/26/18 History Pantoprazole [Protonix] 40 mg PO QAM PRN 01/14/17 10/26/18 History Aspirin 81 mg PO DAILY chew 01/17/17 10/26/18 Rx Nitroglycerin Sl Tabs [Nitrostat] 0.4 mg SUBLINGUAL Q5M PRN #21 tab 01/17/17 10/26/18 Rx Clopidogrel Bisulfate [Plavix] 75 mg PO DAILY 06/26/17 10/26/18 History Atorvastatin [Lipitor] 80 mg PO DAILY 08/31/17 10/26/18 History Budesonide-Formot 160-4.5 Mcg 2 puff INHALATION RT-BID 08/31/17 10/26/18 History [Symbicort 160-4.5 Mcg Inhaler] Ipratropium/Albuterol Sulfate 1 puff INHALATION RT-QID 08/31/17 10/26/18 History [Combivent Respimat Inhaler] Tamsulosin [Flomax] 0.4 mg PO DAILY #30 cap.er.24h 09/22/17 10/26/18 Rx Melatonin 3 mg PO HS tablet 09/28/17 10/26/18 Rx HYDROcodone/APAP 10-325MG [[place] 1 tab PO TID PRN 08/19/18 10/26/18 History 10-325] Metoprolol Tartrate [Lopressor] 12.5 mg PO BID #60 tab 08/22/18 10/26/18 Rx Insulin Detemir (Levemir) [Levemir] 30 unit SQ DAILY@1200 08/27/18 10/26/18 History Baclofen [Lioresal] 5 mg PO TID PRN #30 tablet 09/07/18 10/26/18 Rx INSULIN ASPART (NovoLOG) [NovoLOG See Protocol SQ AC-TID 09/07/18 10/26/18 History (formulary)] traZODone HCL 50 mg PO HS 09/07/18 10/26/18 History Allergies Allergy/AdvReac Type Severity Reaction Status Date / Time No Known Allergies Allergy Verified 10/26/18 23:18 Physical Exam Vitals: Vital Signs Temp Pulse Pulse Resp BP BP Pulse Ox 10/27/18 12:36 98.0 F 91 18 119/69 94 L 10/27/18 11:47 96 10/27/18 11:40 100 10/27/18 08:20 104 H 10/27/18 08:14 100 10/27/18 08:01 98.1 F 89 18 100/62 95 10/27/18 08:00 89 18 10/26/18 23:47 104 H 16 10/26/18 23:00 97.8 F 104 H 16 118/71 93 L 10/26/18 19:37 97.8 F 102 H 104 H 16 139/61 118/71 93 L 10/26/18 19:15 96 18 120/65 95 10/26/18 17:02 97.7 F 92 16 113/64 98 Intake and Output 10/26/18 10/27/18 10/27/18 22:59 06:59 14:59 Other: Voiding Method Toilet # Voids 1 1 2 Weight 53.977 kg Results CBC & Chem 7: 10/26/18 17:41 10/26/18 17:41 Labs: Abnormal Lab Results - Last 24 Hours (Table) 10/26/18 10/26/18 10/26/18 Range/Units 17:41 17:41 21:06 Sodium 133 L (137-145) mmol/L Carbon Dioxide 21 L (22-30) mmol/L BUN 28 H (7-17) mg/dL Glucose 305 H (74-99) mg/dL POC Glucose (mg/dL) 200 H (75-99) mg/dL Amylase <30 L (30-110) U/L Urine Appearance Cloudy H (Clear) Urine Protein 1+ H (Negative) Urine Glucose (UA) 3+ H (Negative) Ur Leukocyte Esterase Moderate H (Negative) Urine WBC 26 H (0-5) /hpf Ur Squamous Epith Cells 21 H (0-4) /hpf Urine Bacteria Occasional H (None) /hpf Hyaline Casts 40 H (0-2) /lpf Urine Mucus Occasional H (None) /hpf 10/27/18 10/27/18 10/27/18 Range/Units 01:26 08:04 14:00 Sodium (137-145) mmol/L Carbon Dioxide (22-30) mmol/L BUN (7-17) mg/dL Glucose (74-99) mg/dL POC Glucose (mg/dL) 163 H 108 H 100 H (75-99) mg/dL Amylase (30-110) U/L Urine Appearance (Clear) Urine Protein (Negative) Urine Glucose (UA) (Negative) Ur Leukocyte Esterase (Negative) Urine WBC (0-5) /hpf Ur Squamous Epith Cells (0-4) /hpf Urine Bacteria (None) /hpf Hyaline Casts (0-2) /lpf Urine Mucus (None) /hpf
[2018-10-27] MEDS: LORazepam 2 MG/ML INJ IV PRN (14:33)
[2018-10-27] MEDS: INSULIN DETEMIR (LEVEMIR) 100 UNIT/ML SYR SQ SCH (17:54)
[2018-10-27] MEDS: HYDROcodone/APAP 10-325MG 1 EACH TAB PO PRN (18:42)
[2018-10-27 19:14] LABS: Glucose,Whole Blood 75 mg/dL (75-99)
[2018-10-27] MEDS: DEXTROSE 5%-0.9% NACL 1,000 ML IV SCH (19:35)
[2018-10-27] MEDS: ATORVASTATIN 80 MG TAB PO SCH (20:35)
[2018-10-27] MEDS: KETOROLAC 30 MG/ML 1 ML VIAL IVP PRN (20:45)
[2018-10-28 00:50] LABS: Glucose,Whole Blood 133 mg/dL (75-99)
[2018-10-28] MEDS: INSULIN ASPART (NovoLOG) 100 UNIT/ML VIAL SQ SCH ×3 (01:02→14:49)
[2018-10-28] MEDS: MORPHINE SULFATE 4 MG/ML SYRINGE IV PRN ×5 (03:25→21:32)
[2018-10-28] MEDS: DEXTROSE 5%-0.9% NACL 1,000 ML IV SCH ×4 (03:26→22:25)
[2018-10-28 06:31] LABS: Glucose,Whole Blood 147 mg/dL (75-99)
[2018-10-28] MEDS: KETOROLAC 30 MG/ML 1 ML VIAL IVP PRN (06:31)
[2018-10-28] MEDS: PANTOPRAZOLE 40 MG/10 ML VIAL IV SCH (09:02)
[2018-10-28] MEDS: TROSPIUM CHLORIDE 20 MG TABLET PO SCH ×2 (09:04→21:20)
[2018-10-28] MEDS: ASPIRIN 81 MG PO SCH (09:04)
[2018-10-28] MEDS: METOPROLOL TARTRATE 25 MG TAB PO SCH ×2 (09:05→21:21)
[2018-10-28] MEDS: TAMSULOSIN 0.4 MG CAP.ER.24H PO SCH (09:07)
[2018-10-28] MEDS: CLOPIDOGREL 75 MG TAB PO SCH (09:08)
[2018-10-28] MEDS: IPRATROPIUM-ALBUTEROL 3 ML NEB INHALATION SCH ×4 (09:22→21:19)
[2018-10-28] MEDS: SYMBICORT 160-4.5 MCG INHALER INHALATION SCH ×2 (09:22→21:19)
[2018-10-28] MEDS: INSULIN DETEMIR (LEVEMIR) 100 UNIT/ML SYR SQ SCH (12:33)
--- NOTE | 2018-10-28 12:34 | P.PN ---
Subjective Progress Note Date: 10/28/18 CHIEF COMPLAINT: abdominal pain, vomiting HISTORY OF PRESENT ILLNESS: Patient examined at the bedside. She reports continued abdominal pain. Denies passing flatus or BM. NG tube with bilious drainage. Vital signs stable PHYSICAL EXAM: VITAL SIGNS: Reviewed. GENERAL: Well-developed in no acute distress. HEENT: No sclera icterus. Extraocular movements grossly intact. Moist buccal mucosa. Head is atraumatic, normocephalic. ABDOMEN: Soft. Nondistended. Tenderness with palpation. Hypoactive bowel sounds NEUROLOGIC: Alert and oriented. Cranial nerves II through XII grossly intact. ASSESSMENT: 1. Acute small bowel obstruction PLAN: 1. NPO 2. Continue NG tube 3. Discontinue plavix in case patient requires surgical intervention 4. Pain control 5. Repeat CT scan today with oral contrast 6. Further recommendations pending patient course Nurse practitioner note has been reviewed by physician. Signing provider agrees with the documented findings, assessment, and plan of care. Objective - Vital Signs Vital signs: Vital Signs Temp 97.5 F L 10/28/18 08:25 Pulse 92 10/28/18 09:37 Resp 16 10/28/18 08:25 BP 131/74 10/28/18 08:25 Pulse Ox 99 10/28/18 08:25 Intake & Output 10/27/18 10/28/18 10/28/18 18:59 06:59 18:59 Intake Total 2070 Output Total 300 Balance 1770 Intake: Intake, IV Titration 2000 Amount Dextrose 5%-0.9% NaCl 1, 1000 000 ml @ 100 mls/hr IV . Q10H REY Rx#:[id number] Sodium Chloride 0.9% 1, 1000 000 ml @ 100 mls/hr IV . Q10H REY Rx#:[id number] Oral 70 Output: Gastric Drainage 300 Other: Voiding Method Toilet Toilet Toilet # Voids 1 1 1 - Labs CBC & Chem 7: 10/26/18 17:41 10/26/18 17:41 Labs: Abnormal Lab Results - Last 24 Hours (Table) 10/27/18 10/28/18 10/28/18 Range/Units 14:00 00:47 06:30 POC Glucose (mg/dL) 100 H 133 H 147 H (75-99) mg/dL
[2018-10-28] MEDS: IOPAMIDOL-300 CONTRAST 30 ML VIAL (ORAL USE) PO PRN ×2 (13:05→14:06)
[2018-10-28 14:02] LABS: Glucose,Whole Blood 162 mg/dL (75-99)
--- NOTE | 2018-10-28 15:04 | CT ---
EXAMINATION TYPE: CT abdomen pelvis wo con DATE OF EXAM: 10/28/2018 HISTORY: Bowel obstruction, history of bowel and lung cancer. CT DLP: 579 mGycm. Automated Exposure Control for Dose Reduction was Utilized. TECHNIQUE: CT scan of the abdomen and pelvis is performed without oral or IV contrast. COMPARISON: CT abdomen and pelvis 2 days ago FINDINGS: Within the limitations of a non-contrast study, the following observations are made. LUNG BASES: Persistent elevated left hemidiaphragm with worsening left basilar atelectasis and/or sca rring in Small left pleural effusion. New patchy right basilar linear atelectasis. LIVER/GB: Gallbladder not visualized similar to prior presumed surgically absent. Mild to minimal bayron tral intrahepatic biliary dilatation felt stable. PANCREAS: Redemonstration visualized pancreatic duct, no significant interval change. No suspicious d ilatation. SPLEEN: No significant abnormality is seen. ADRENALS: Stable 2 adjacent left adrenal masses near 2.7 cm axial image 26 and 29 respectively. KIDNEYS: Simple-appearing 3 cm thin-walled cyst left kidney midpole level axial image 30 is redemonst rated. BOWEL: New nasogastric tube projects below diaphragm. Oral contrast only reaches distal jejunal loops in the left abdomen. Interval improvement in air-fluid levels and prominence of small bowel loops. S ome prominent contrast filled jejunal loops in the left abdomen remain present. Persistent small sunita l feces sign distal ileum. Persistent nondistended fecal filled colon. GENITAL ORGANS: Small amount of free fluid in pelvis fairly stable from prior. Uterus is surgically a bsent or markedly atrophic. LYMPH NODES: No greater than 1cm abdominal or pelvic lymph nodes are appreciated. OSSEOUS STRUCTURES: Moderate to severe narrowing with vacuum disc phenomenon at L4-L5 and L5-S1 level s redemonstrated. OTHER: Moderate to severe calcified plaque of the aorta extends into branch vessels. IMPRESSION: Some interval improvement after nasogastric tube placement. Persistent delayed passage of ingested material to colonic level. Partial mid small bowel obstruction may still be present. Progre ss radiographs advised.
[2018-10-28] MEDS ORDERED: ONDANSETRON 4 MG/2 ML VIAL IVP STA (16:15)
[2018-10-28 18:38] LABS: Glucose,Whole Blood 100 mg/dL (75-99)
[2018-10-28] MEDS: MELATONIN 3 MG TABLET PO SCH (21:20)
[2018-10-28] MEDS: ATORVASTATIN 80 MG TAB PO SCH (21:20)
[2018-10-28] MEDS: traZODone HCL 50 MG TAB PO SCH (21:20)
--- NOTE | 2018-10-28 23:26 | P.PN ---
Progress Note - Text Progress Note Date: 10/28/18 - Chief Complaint abdominal pain Interval history: This is a pleasant 68-year-old patient of Dr. engel from [place]. Chronic stable medical conditions include coronary artery disease with stent, diabetes type 2, fibromyalgia, GERD, ITP, irritable bowel syndrome, hiatal hernia, chronic herniated disc at L3-L4, restless leg syndrome, gastritis. Patient yesterday started of with nausea followed by multiple episodes of vomiting and diffuse abdominal pain. No fever no chills. Pain did not radiate anywhere. No exacerbating or relieving factors. Presented to the ER. Computed tomography scan of the abdomen showed developing distal small bowel obstruction. Some amount of free fluid in the pelvis was noted. NG tube was placed. Admitted for the same. Seen by Dr. Fang from general surgery. Today-NG tube remains in place. Abdominal pain present. No flatus or bowel movement. Uncomfortable. No fever no chills. Review of systems: Was done for constitutional, cardiovascular, GI, pulmonary. relevant finding as above Active Medications Hydrocodone Bitart/Acetaminophen ([place] 10) 1 each PO TID PRN PRN Reason: Pain Last Admin: 10/27/18 18:42 Dose: 1 each Documented by: Albuterol/Ipratropium (Duoneb 0.5 Mg-3 Mg/3 Ml Soln) 3 ml INHALATION RT-QID [facility] Last Admin: 10/28/18 21:19 Dose: 3 ml Documented by: Aspirin (Aspirin) 81 mg PO DAILY [facility] Last Admin: 10/28/18 09:04 Dose: 81 mg Documented by: Atorvastatin Calcium (Lipitor) 80 mg PO HS [facility] Last Admin: 10/28/18 21:20 Dose: 80 mg Documented by: Baclofen (Lioresal) 5 mg PO TID PRN PRN Reason: Spasms Last Admin: 10/27/18 10:18 Dose: 5 mg Documented by: Budesonide/Formoterol Fumarate (Symbicort 160-4.5 Mcg Inhaler) 2 puff INHALATION RT-BID [facility] Last Admin: 10/28/18 21:19 Dose: 2 puff Documented by: Dextrose/Sodium Chloride (Dextrose 5%-Ns Iv Soln) 1,000 mls @ 100 mls/hr IV .Q10H [facility] Last Admin: 10/28/18 22:25 Dose: 100 mls/hr Documented by: Insulin Aspart (Novolog) 0 unit SQ Q6HR [facility]; Protocol Insulin Detemir (Levemir) 30 unit SQ DAILY@1200 [facility] Last Admin: 10/28/18 12:33 Dose: 30 unit Documented by: Ketorolac Tromethamine (Toradol) 30 mg IVP Q6HR PRN PRN Reason: Moderate Pain Stop: 10/31/18 19:51 Last Admin: 10/28/18 06:31 Dose: 30 mg Documented by: Lorazepam (Ativan) 0.5 mg IV Q6HR PRN PRN Reason: Anxiety Last Admin: 10/27/18 14:33 Dose: 0.5 mg Documented by: Melatonin (Melatonin) 3 mg PO [facility] Last Admin: 10/28/18 21:20 Dose: 3 mg Documented by: Metoprolol Tartrate (Lopressor) 12.5 mg PO BID [facility] Last Admin: 10/28/18 21:21 Dose: 12.5 mg Documented by: Morphine Sulfate (Morphine Sulfate (Inj)) 4 mg IV Q4HR PRN PRN Reason: Severe Pain Last Admin: 10/28/18 21:32 Dose: 4 mg Documented by: Naloxone HCl (Narcan) 0.2 mg IV Q2M PRN PRN Reason: Opioid Reversal Nitroglycerin (Nitrostat) 0.4 mg SUBLINGUAL Q5M PRN PRN Reason: Chest Pain Ondansetron HCl (Zofran) 4 mg IVP Q6HR PRN PRN Reason: Nausea And Vomiting Pantoprazole Sodium (Protonix) 40 mg IV DAILY [facility] Last Admin: 10/28/18 09:02 Dose: 40 mg Documented by: Ropinirole HCl (Requip) 0.25 mg PO [facility] Last Admin: 10/28/18 21:20 Dose: 0.25 mg Documented by: Tamsulosin HCl (Flomax) 0.4 mg PO DAILY [facility] Last Admin: 10/28/18 09:07 Dose: 0.4 mg Documented by: Trazodone HCl (Desyrel) 50 mg PO [facility] Last Admin: 10/28/18 21:20 Dose: 50 mg Documented by: Trospium (Sanctura) 20 mg PO BID [facility] Last Admin: 10/28/18 21:20 Dose: 20 mg Documented by: Physical examination: VITAL SIGNS: 97.5, 81, 20, 141 by city 7, 96% room air GENERAL: BMI 21.8, laying in bed, uncomfortable EYES: Pupils equal. Conjunctiva normal. HEENT: External appearance of nose and ears normal, oral cavity dry with NG tube in place. NECK: JVD not raised; masses not palpable. HEART: First and second heart sounds are normal; no edema. LUNGS: Respiratory rate normal; decreased breath sounds. ABDOMEN: Soft, diffuse tenderness, no guarding or rigidity, pulse is present, liver spleen not palpable, no masses palpable. PSYCH: [Alert and oriented x3; mood and affect anxious l. MUSCULOSKELETAL: Evidence of OA INVESTIGATIONS, reviewed in the clinical context: Accu-Cheks 147, 162 Admission testing White count 8.9 hemoglobin 14.2 potassium 4.7 bun 28 creatinine 0.75 Accu-Cheks 263 Chest x-ray film showing NG tube in place no infiltrates Computed tomography scan of the abdomen shows developing small bowel obstruction Assessment: -Acute small bowel obstruction, slow to respond -Coronary artery disease with stent -Diabetes mellitus type 2 -Chronic fibromyalgia -GERD -Chronic ITP -Irritable bowel syndrome -Chronic hiatal hernia -Chronic cardiogenic disc at L3-L4 with pain -Restless leg syndrome -Primary osteoarthritis Plan: Continue to NG tube. IV fluids. Patient remains uncomfortable. Computed tomography scan of the abdomen was ordered. Earlier today. Care was discussed with the patient. Thank you Dr. Fang
[2018-10-29 00:10] LABS: Glucose,Whole Blood 84 mg/dL (75-99)
[2018-10-29] MEDS: INSULIN ASPART (NovoLOG) 100 UNIT/ML VIAL SQ SCH ×4 (00:31→18:44)
[2018-10-29] MEDS: MORPHINE SULFATE 4 MG/ML SYRINGE IV PRN ×5 (02:22→23:20)
[2018-10-29 05:50] LABS: Glucose,Whole Blood 75 mg/dL (75-99)
[2018-10-29] MEDS: DEXTROSE 5%-0.9% NACL 1,000 ML IV SCH (05:59)
[2018-10-29 08:16] LABS: African American GFR (CKD) >90 (>60 ml/min/1.73 sqM); Anion Gap 6 mmol/L; Blood Urea Nitrogen 3 mg/dL (7-17); Calcium 8.4 mg/dL (8.4-10.2); Carbon Dioxide 28 mmol/L (22-30); Chloride 106 mmol/L (98-107); Glucose 78 mg/dL (74-99); Potassium 3.2 mmol/L (3.5-5.1); Sodium 140 mmol/L (137-145)
[2018-10-29] MEDS: IPRATROPIUM-ALBUTEROL 3 ML NEB INHALATION SCH ×4 (08:52→19:34)
[2018-10-29] MEDS: SYMBICORT 160-4.5 MCG INHALER INHALATION SCH ×2 (08:52→19:34)
[2018-10-29] MEDS ORDERED: SODIUM CHLORIDE 0.9% 1,000 ML IV SCH (09:15)
[2018-10-29] MEDS: PANTOPRAZOLE 40 MG/10 ML VIAL IV SCH (09:32)
[2018-10-29] MEDS: METOPROLOL TARTRATE 25 MG TAB PO SCH ×2 (09:34→21:24)
[2018-10-29] MEDS: ASPIRIN 81 MG PO SCH (09:36)
[2018-10-29] MEDS: TAMSULOSIN 0.4 MG CAP.ER.24H PO SCH (09:37)
[2018-10-29] MEDS: TROSPIUM CHLORIDE 20 MG TABLET PO SCH ×2 (09:37→21:25)
[2018-10-29] MEDS: KETOROLAC 30 MG/ML 1 ML VIAL IVP PRN (10:23)
[2018-10-29 10:36] LABS: Appearance,Urine Cloudy (Clear); Bacteria,Urine Few /hpf; Bilirubin,Urine Negative (Negative); Blood,Urine Small (Negative); Color,Urine Light Yellow; Glucose,Urine (UA) Negative (Negative); Ketones,Urine Negative (Negative); Leukocyte Esterase,Urine Large (Negative); Mucus,Urine Occasional /hpf; Nitrite,Urine Negative (Negative); PH, Urine 7.5 (5.0-8.0); Protein,Urine Trace (Negative); RBC,Urine 19 /hpf (0-5); Specific Gravity,Urine 1.012 (1.001-1.035); Squamous Epithelial Cell,Urine 2 /hpf (0-4); Urobilinogen,Urine <2.0 mg/dL (<2.0); WBC,Urine >182 /hpf (0-5)
[2018-10-29] MEDS ORDERED: POTASSIUM CHLORIDE ER 20 MEQ TAB.ER PO STA (11:31)
[2018-10-29 11:43] LABS: Glucose,Whole Blood 121 mg/dL (75-99)
--- NOTE | 2018-10-29 12:13 | XR ---
EXAMINATION TYPE: XR abdomen 2V DATE OF EXAM: 10/29/2018 COMPARISON: 10/26/2018 HISTORY: Abdominal pain TECHNIQUE: One view abdominal series FINDINGS: The osseous structures are intact. The bowel gas pattern is nonspecific. NG tube noted and there is areas of consolidation at the left lung base with small effusion or pleural thickening. Diffuse osteo penia and degenerative change of the spine. Arthropathy of the hips. Suggestion of previous surgery i n the pelvis. There are dilated small bowel loops in a pattern suggestive of partial obstruction. Con trast is seen within the colon. IMPRESSION: 1. Dilated small bowel loops. Contrast is seen within the colon suggesting that the findings are like ly the basis of a partial obstruction. 2. Left lower lobe infiltrate and small effusion
[2018-10-29] MEDS: INSULIN DETEMIR (LEVEMIR) 100 UNIT/ML SYR SQ SCH (12:43)
[2018-10-29] MEDS ORDERED: POTASSIUM CHLORIDE ER 20 MEQ TAB.ER PO ONE (14:00)
[2018-10-29] MEDS: 0.9% NACL WITH KCL 20 MEQ/L 1,000 ML IV SCH ×2 (14:27→23:04)
--- NOTE | 2018-10-29 14:57 | P.PN ---
Subjective Progress Note Date: 10/29/18 CHIEF COMPLAINT: abdominal pain, vomiting HISTORY OF PRESENT ILLNESS: Patient examined at the bedside. She reports continued abdominal pain. Denies passing flatus or BM. NG tube with bilious drainage. Approximately 400 mL in cannister. Vital signs stable. She is afebrile. Nursing reports cloudy yellow urine with sediment. UA with large leukocyte esterase. WBCs greater than 182. Abdominal x-ray completed today reveals dilated small bowel loops in a pattern suggestive of partial obstruction. Contrast seen within the colon. Left lower lobe infiltrate and small effusion. No CBC completed this morning. Potassium 3.2. Magnesium 1.6. PHYSICAL EXAM: VITAL SIGNS: Reviewed. GENERAL: Well-developed in no acute distress. HEENT: No sclera icterus. Extraocular movements grossly intact. Moist buccal mucosa. Head is atraumatic, normocephalic. ABDOMEN: Soft. Nondistended. Tenderness with palpation. Hypoactive bowel sounds NEUROLOGIC: Alert and oriented. Cranial nerves II through XII grossly intact. ASSESSMENT: 1. Acute small bowel obstruction 2. Hypokalemia 3. Hypomagnesemia PLAN: 1. NPO 2. Continue NG tube 3. Continue to hold plavix 4. Pain control 5. Activity as tolerated 6. Consult dietitian to begin PPN as patient has been NPO since Sunday. Spoke with Neeru. Will DC Dextrose in IV fluids secondary to initiation of PPN. 7. Replace potassium. 40 mEq PO x 1 now. Clamp NG after administration. Additional dose of 20meq to be administered this afternoon. Will add 20meq to maintenance IV fluids as well 8. Replace magnesium per protocol 9. Obtain CBC. Will begin empiric antibiotic the form of Zosyn. Urine culture added to UA from this morning. Incentive spirometry encouraged as XR shows left lower lobe infiltrate 10. Possible surgical intervention if obstruction does not resolve with conservative measures Nurse practitioner note has been reviewed by physician. Signing provider agrees with the documented findings, assessment, and plan of care. Objective - Vital Signs Vital signs: Vital Signs Temp 98.5 F 10/29/18 14:10 Pulse 94 10/29/18 14:10 Resp 15 10/29/18 14:10 BP 147/78 10/29/18 14:10 Pulse Ox 97 10/29/18 14:10 Intake & Output 10/28/18 10/29/18 10/29/18 18:59 06:59 18:59 Intake Total 600 120 Output Total 1450 850 Balance 600 -1330 -850 Weight 53.977 kg Intake: Oral 600 120 Output: Gastric Drainage 250 400 Urine 1200 450 Other: Voiding Method Toilet Toilet Toilet # Voids 1 1 - Labs CBC & Chem 7: 10/26/18 17:41 10/29/18 07:34 Labs: Abnormal Lab Results - Last 24 Hours (Table) 10/28/18 10/29/18 10/29/18 Range/Units 18:36 07:34 09:50 Potassium 3.2 L (3.5-5.1) mmol/L BUN 3 L (7-17) mg/dL Creatinine 0.43 L (0.52-1.04) mg/dL POC Glucose (mg/dL) 100 H (75-99) mg/dL Urine Appearance Cloudy H (Clear) Urine Protein Trace H (Negative) Urine Blood Small H (Negative) Ur Leukocyte Esterase Large H (Negative) Urine RBC 19 H (0-5) /hpf Urine WBC >182 H (0-5) /hpf Urine Bacteria Few H (None) /hpf Urine Mucus Occasional H (None) /hpf 10/29/18 Range/Units 11:42 Potassium (3.5-5.1) mmol/L BUN (7-17) mg/dL Creatinine (0.52-1.04) mg/dL POC Glucose (mg/dL) 121 H (75-99) mg/dL Urine Appearance (Clear) Urine Protein (Negative) Urine Blood (Negative) Ur Leukocyte Esterase (Negative) Urine RBC (0-5) /hpf Urine WBC (0-5) /hpf Urine Bacteria (None) /hpf Urine Mucus (None) /hpf
[2018-10-29 15:11] LABS: Basophils % (A) 0 %; Eosinophils # (A) 0.3 k/uL (0-0.7); Eosinophils % (A) 4 %; HCT 39.2 % (34.0-46.0); HGB 12.7 gm/dL (11.4-16.0); Ionized Calcium 4.8 mg/dL (4.5-5.3); Lymphocytes # (A) 1.3 k/uL (1.0-4.8); Lymphocytes % (A) 21 %; MCH 28.2 pg (25.0-35.0); MCHC 32.4 g/dL (31.0-37.0); Monocytes # (A) 0.5 k/uL (0-1.0); Monocytes % (A) 9 %; Neutrophils # (A) 3.8 k/uL (1.3-7.7); Neutrophils % (A) 64 %; Platelet Count 221 k/uL (150-450); RDW 14.4 % (11.5-15.5); WBC 5.9 k/uL (3.8-10.6)
[2018-10-29 15:24] LABS: ALT 12 U/L (9-52); AST 16 U/L (14-36); African American GFR (CKD) >90 (>60 ml/min/1.73 sqM); Albumin 2.9 g/dL (3.5-5.0); Alkaline Phosphatase 77 U/L (38-126); Anion Gap 7 mmol/L; Blood Urea Nitrogen 2 mg/dL (7-17); Calcium 8.4 mg/dL (8.4-10.2); Carbon Dioxide 24 mmol/L (22-30); Chloride 107 mmol/L (98-107); Glucose 116 mg/dL (74-99); Magnesium 1.6 mg/dL (1.6-2.3); Potassium 3.5 mmol/L (3.5-5.1); Sodium 138 mmol/L (137-145); Total Bilirubin 0.3 mg/dL (0.2-1.3); Total Protein 5.3 g/dL (6.3-8.2); Triglycerides 108 mg/dL (<150)
[2018-10-29] MEDS ORDERED: MVI, ADULT NO.4 WITH VIT K 10 ML, TRACE (CONC-1ML/DOSE) 1 ML, POTASSIUM CHLORIDE 20 MEQ... IV ONE ×4 (16:00)
[2018-10-29] MEDS: MAGNESIUM SULFATE-D5W PMX 1 GM in DEXTROSE/WATER 1 100ML.BAG IVPB SCH ×2 (16:08→18:25)
[2018-10-29 18:56] LABS: Glucose,Whole Blood 106 mg/dL (75-99)
[2018-10-29] MEDS: PIPERACILLIN-TAZOBACTAM 3.375 GM in SODIUM CHLORIDE 0.9% 100 ML IVPB SCH (19:26)
[2018-10-29] MEDS: FAT EMULSION 20% 250 ML IV SCH (21:20)
[2018-10-29] MEDS: ATORVASTATIN 80 MG TAB PO SCH (21:23)
[2018-10-29] MEDS: traZODone HCL 50 MG TAB PO SCH (21:24)
[2018-10-29] MEDS: MELATONIN 3 MG TABLET PO SCH (21:24)
--- NOTE | 2018-10-29 23:24 | P.PN ---
Progress Note - Text Progress Note Date: 10/29/18 - Chief Complaint abdominal pain Interval history: This is a pleasant 68-year-old patient of Dr. engel from [place]. Chronic stable medical conditions include coronary artery disease with stent, diabetes type 2, fibromyalgia, GERD, ITP, irritable bowel syndrome, hiatal hernia, chronic herniated disc at L3-L4, restless leg syndrome, gastritis. Patient yesterday started of with nausea followed by multiple episodes of vomiting and diffuse abdominal pain. No fever no chills. Pain did not radiate anywhere. No exacerbating or relieving factors. Presented to the ER. Computed tomography scan of the abdomen showed developing distal small bowel obstruction. Some amount of free fluid in the pelvis was noted. NG tube was placed. Admitted for the same. Seen by Dr. Fang from general surgery. Today-NG tube remains in place. Still having abdominal pain. Uncomfortable. No flatus or bowel movement.. Review of systems: Was done for constitutional, cardiovascular, GI, pulmonary. relevant finding as above Active Medications Hydrocodone Bitart/Acetaminophen (Ramer 10) 1 each PO TID PRN PRN Reason: Pain Last Admin: 10/27/18 18:42 Dose: 1 each Documented by: Albuterol/Ipratropium (Duoneb 0.5 Mg-3 Mg/3 Ml Soln) 3 ml INHALATION RT-QID [facility] Last Admin: 10/29/18 19:34 Dose: 3 ml Documented by: Aspirin (Aspirin) 81 mg PO DAILY [facility] Last Admin: 10/29/18 09:36 Dose: 81 mg Documented by: Atorvastatin Calcium (Lipitor) 80 mg PO HS [facility] Last Admin: 10/29/18 21:23 Dose: 80 mg Documented by: Baclofen (Lioresal) 5 mg PO TID PRN PRN Reason: Spasms Last Admin: 10/27/18 10:18 Dose: 5 mg Documented by: Budesonide/Formoterol Fumarate (Symbicort 160-4.5 Mcg Inhaler) 2 puff INHALATION RT-BID [facility] Last Admin: 10/29/18 19:34 Dose: 2 puff Documented by: Potassium Chloride/Sodium Chloride (Ns-Kcl 20 Meq/L Iv Solution) 1,000 mls @ 100 mls/hr IV .Q10H [facility] Last Admin: 10/29/18 23:04 Dose: Not Given Documented by: Parenteral Vitamin Supplement 10 ml/ Chromium/Copper/Manganese/Seleni/Zn 1 ml/Potassium Chloride 20 meq/Amino Ac/Electrol/Dextrose/Calcium 1,021 mls @ 50 mls/hr IV .[id number] ONE Stop: 10/30/18 12:25 Last Admin: 10/29/18 20:23 Dose: 50 mls/hr Documented by: Fat Emulsion Intravenous (Lipids 20%) 250 mls @ 20.833 mls/hr IV DAILY@1600 [facility] Last Admin: 10/29/18 21:20 Dose: 20.833 mls/hr Documented by: Parenteral Vitamin Supplement 10 ml/ Chromium/Copper/Manganese/Seleni/Zn 1 ml/P otassium Chloride 20 meq/Amino Ac/Electrol/Dextrose/Calcium 1,021 mls @ 60 mls/hr IV .Q17H1M RE[facility] Piperacillin Sod/Tazobactam (Sod 3.375 gm/ Sodium Chloride) 100 mls @ 25 mls/hr IVPB Q8HR [facility] Last Admin: 10/29/18 19:26 Dose: 25 mls/hr Documented by: Insulin Aspart (Novolog) 0 unit SQ Q6HR [facility]; Protocol Last Admin: 10/29/18 18:44 Dose: Not Given Documented by: Insulin Detemir (Levemir) 30 unit SQ DAILY@1200 [facility] Last Admin: 10/29/18 12:43 Dose: Not Given Documented by: Ketorolac Tromethamine (Toradol) 15 mg IVP Q6HR PRN PRN Reason: Pain Stop: 10/31/18 18:01 Last Admin: 10/29/18 10:23 Dose: 15 mg Documented by: Lorazepam (Ativan) 0.5 mg IV Q6HR PRN PRN Reason: Anxiety Last Admin: 10/27/18 14:33 Dose: 0.5 mg Documented by: Melatonin (Melatonin) 3 mg PO HS [facility] Last Admin: 10/29/18 21:24 Dose: 3 mg Documented by: Metoprolol Tartrate (Lopressor) 12.5 mg PO BID [facility] Last Admin: 10/29/18 21:24 Dose: 12.5 mg Documented by: Morphine Sulfate (Morphine Sulfate (Inj)) 4 mg IV Q4HR PRN PRN Reason: Severe Pain Last Admin: 10/29/18 23:20 Dose: 4 mg Documented by: Naloxone HCl (Narcan) 0.2 mg IV Q2M PRN PRN Reason: Opioid Reversal Nitroglycerin (Nitrostat) 0.4 mg SUBLINGUAL Q5M PRN PRN Reason: Chest Pain Ondansetron HCl (Zofran) 4 mg IVP Q6HR PRN PRN Reason: Nausea And Vomiting Pantoprazole Sodium (Protonix) 40 mg PO DAILY [facility] Ropinirole HCl (Requip) 0.25 mg PO [facility] Last Admin: 10/29/18 21:24 Dose: 0.25 mg Documented by: Tamsulosin HCl (Flomax) 0.4 mg PO DAILY [facility] Last Admin: 10/29/18 09:37 Dose: 0.4 mg Documented by: Trazodone HCl (Desyrel) 50 mg PO HS [facility] Last Admin: 10/29/18 21:24 Dose: 50 mg Documented by: Trospium (Sanctura) 20 mg PO BID [facility] Last Admin: 10/29/18 21:25 Dose: 20 mg Documented by: Physical examination: VITAL SIGNS: 98.5, 94, 15, 147/78, 97% room air GENERAL: laying in bed, uncomfortable EYES: Pupils equal. Conjunctiva normal. HEENT: External appearance of nose and ears normal, oral cavity dry with NG tube in place. NECK: JVD not raised; masses not palpable. HEART: First and second heart sounds are normal; no edema. LUNGS: Respiratory rate normal; decreased breath sounds. ABDOMEN: Soft, diffuse tenderness, no guarding or rigidity, , liver spleen not palpable, no masses palpable. PSYCH: [Alert and oriented x3; mood and affect anxious l. MUSCULOSKELETAL: Evidence of OA INVESTIGATIONS, reviewed in the clinical context: White count 5.9 potassium 3.5 creatinine 0.38 Abdominal o-xio-[id number] small bowel loops Computed tomography scan of the abdomen done yesterday showed some improvement in the small bowel obstruction Admission testing White count 8.9 hemoglobin 14.2 potassium 4.7 bun 28 creatinine 0.75 Accu-Cheks 263 Chest x-ray film showing NG tube in place no infiltrates Computed tomography scan of the abdomen shows developing small bowel obstruction Assessment: -Acute small bowel obstruction, slow to respond -Coronary artery disease with stent -Diabetes mellitus type 2 -Chronic fibromyalgia -GERD -Chronic ITP -Irritable bowel syndrome -Chronic hiatal hernia -Chronic herniated disc at L3-L4 with pain -Restless leg syndrome -Primary osteoarthritis Plan: Continue to NG tube. IV fluids. Care was discussed with the patient. Abdomen does not appear to be surgical did discuss expected to give it some time. Thank you Dr. Fang
[2018-10-30 00:09] LABS: Glucose,Whole Blood 153 mg/dL (75-99)
[2018-10-30] MEDS: PIPERACILLIN-TAZOBACTAM 3.375 GM in SODIUM CHLORIDE 0.9% 100 ML IVPB SCH ×3 (00:29→18:34)
[2018-10-30] MEDS: INSULIN ASPART (NovoLOG) 100 UNIT/ML VIAL SQ SCH ×4 (00:29→18:13)
[2018-10-30] MEDS: 0.9% NACL WITH KCL 20 MEQ/L 1,000 ML IV SCH ×3 (02:13→21:25)
[2018-10-30] MEDS: MORPHINE SULFATE 4 MG/ML SYRINGE IV PRN (04:45)
[2018-10-30 05:44] LABS: Glucose,Whole Blood 172 mg/dL (75-99)
[2018-10-30] MEDS: SYMBICORT 160-4.5 MCG INHALER INHALATION SCH ×2 (07:43→20:20)
[2018-10-30] MEDS: IPRATROPIUM-ALBUTEROL 3 ML NEB INHALATION SCH ×4 (07:43→20:20)
[2018-10-30 08:31] LABS: Ionized Calcium 4.9 mg/dL (4.5-5.3)
[2018-10-30 08:43] LABS: African American GFR (CKD) >90 (>60 ml/min/1.73 sqM); Anion Gap 6 mmol/L; Blood Urea Nitrogen 6 mg/dL (7-17); Calcium 8.5 mg/dL (8.4-10.2); Carbon Dioxide 24 mmol/L (22-30); Chloride 107 mmol/L (98-107); Glucose 186 mg/dL (74-99); Magnesium 1.9 mg/dL (1.6-2.3); Phosphorus 3.8 mg/dL (2.5-4.5); Potassium 4.3 mmol/L (3.5-5.1); Sodium 137 mmol/L (137-145); Triglycerides 183 mg/dL (<150)
[2018-10-30] MEDS: KETOROLAC 30 MG/ML 1 ML VIAL IVP PRN (09:05)
[2018-10-30] MEDS: METOPROLOL TARTRATE 25 MG TAB PO SCH ×2 (09:07→22:15)
[2018-10-30] MEDS: TAMSULOSIN 0.4 MG CAP.ER.24H PO SCH (09:07)
[2018-10-30] MEDS: TROSPIUM CHLORIDE 20 MG TABLET PO SCH ×2 (09:07→22:15)
[2018-10-30] MEDS: PANTOPRAZOLE 40 MG TABLET PO SCH (09:07)
[2018-10-30] MEDS: ASPIRIN 81 MG PO SCH (09:08)
[2018-10-30 11:32] LABS: Glucose,Whole Blood 183 mg/dL (75-99)
[2018-10-30] MEDS: INSULIN DETEMIR (LEVEMIR) 100 UNIT/ML SYR SQ SCH (12:20)
[2018-10-30 14:30] LABS: Glucose,Whole Blood 158 mg/dL (75-99)
[2018-10-30] MEDS ORDERED: HEPARIN SODIUM,PORCINE 5,000 UNIT/ML 1 ML VIAL SQ ONE (14:34)
[2018-10-30] MEDS ORDERED: LACTATED RINGERS 1,000 ML IV ONE ×2 (14:35→16:25)
[2018-10-30] MEDS ORDERED: ONDANSETRON 4 MG/2 ML VIAL IVP ONE (14:41)
[2018-10-30] MEDS ORDERED: DEXAMETHASONE SOD PHOSPHATE 10 MG/ML 1 ML VIAL IV ONE (14:41)
[2018-10-30] MEDS ORDERED: LIDOCAINE 1% INJ 10MG/ML (20 ML MDV) ONE (14:49)
[2018-10-30] MEDS ORDERED: KETAMINE 10 MG/ML 20 ML VIAL ONE (14:49)
[2018-10-30] MEDS ORDERED: PHENYLEPHRINE-0.9% NACL SYG 1 MG/10 ML SYRINGE ONE (14:49)
[2018-10-30] MEDS ORDERED: PROPOFOL 10 MG/ML 20 ML VIAL IV ONE (14:49)
[2018-10-30] MEDS ORDERED: SUCCINYLCHOLINE CHLORIDE 100 MG/5 ML SYR IV ONE (14:49)
[2018-10-30] MEDS ORDERED: NEOSTIGMINE 1 MG/ML 10 ML VIAL ONE (14:49)
[2018-10-30] MEDS ORDERED: fentaNYL (PF) 50 MCG/ML 2 ML AMP ONE (14:49)
[2018-10-30] MEDS ORDERED: ROCURONIUM BROMIDE 10 MG/ML 10 ML VIAL IV ONE (14:49)
[2018-10-30] MEDS ORDERED: GLYCOPYRROLATE 0.2 MG/ML 2 ML VIAL ONE (14:49)
[2018-10-30] MEDS ORDERED: MIDAZOLAM 2 MG/2 ML VIAL ONE (14:49)
[2018-10-30] MEDS ORDERED: MVI, ADULT NO.4 WITH VIT K 10 ML, TRACE (CONC-1ML/DOSE) 1 ML, POTASSIUM CHLORIDE 20 MEQ... IV SCH ×4 (16:00)
[2018-10-30] MEDS ORDERED: HYDROmorphone 1 MG/ML 1 ML SYRINGE IM PRN (16:29)
--- NOTE | 2018-10-30 16:29 | P.OP ---
Date of Procedure: 10/30/18 Preoperative Diagnosis: Small bowel obstruction Postoperative Diagnosis: Adhesions Procedure(s) Performed: Exploratory laparotomy Lysis of adhesions Incidental appendectomy Small bowel resection Anesthesia: GETA Surgeon: Ricci Fang Estimated Blood Loss (ml): 40 Pathology: other (Jejunum) Condition: stable
[2018-10-30] MEDS ORDERED: MORPHINE SULFATE 4 MG/ML SYRINGE IV ONE ×2 (17:00→17:09)
[2018-10-30] MEDS ORDERED: fentaNYL (PF) 50 MCG/ML 2 ML AMP IV ONE (17:30)
[2018-10-30] MEDS ORDERED: MIDAZOLAM (PF) 2 MG/2 ML VIAL IV ONE (17:30)
[2018-10-30] MEDS ORDERED: NALOXONE 0.4 MG/ML 1 ML VIAL IV PRN (17:51)
--- NOTE | 2018-10-30 17:51 | P.ANPRN ---
Procedure Note - Anesthesia - Nerve Block Performed Other (see comment) Time Out Performed: Yes Date of Procedure: 10/30/18 Location of Patient Procedure: PACU Indication: Acute Post-Operative Pain Specifically requested for management of pain by DrNelida: Ricci Fang Sedation Type: Sedate with meaningful contact maintained Preparation: Sterile Prep Position: Left Lateral Catheter Depth at Skin (cm): 6 Catheter: Indwelling Needle Types: Touhy Needle Gauge: 18 Injectate: Other (see comment) (3cc 1.5% lidocaine) Adjunct: Epinephrine (see comment for dilution ratio) (1:200,000) Blood Aspirated: No Pain Paresthesia on Injection Noted: No Resistance on Injection: Normal Events: Uneventful and Well Tolerated (T-10 Epidural catheter)
[2018-10-30 18:05] LABS: Glucose,Whole Blood 226 mg/dL (75-99)
[2018-10-30] MEDS: ROPIVACAINE 400 MG, HYDROMORPHONE (PF) 5 MG in SODIUM CHLORIDE 0.9% 170 ML EPIDURAL PRN (18:30)
[2018-10-30] MEDS: MVI, ADULT NO.4 WITH VIT K 10 ML, TRACE (CONC-1ML/DOSE) 1 ML, POTASSIUM CHLORIDE 20 MEQ... IV SCH ×4 (18:33)
[2018-10-30] MEDS: FAT EMULSION 20% 250 ML IV SCH (19:36)
[2018-10-30] MEDS: MELATONIN 3 MG TABLET PO SCH (22:14)
[2018-10-30] MEDS: ATORVASTATIN 80 MG TAB PO SCH (22:14)
[2018-10-30] MEDS: traZODone HCL 50 MG TAB PO SCH (22:15)
--- NOTE | 2018-10-30 23:48 | P.PN ---
Progress Note - Text Progress Note Date: 10/30/18 - Chief Complaint abdominal pain Interval history: This is a pleasant 68-year-old patient of Dr. engel from [place]. Chronic stable medical conditions include coronary artery disease with stent, diabetes type 2, fibromyalgia, GERD, ITP, irritable bowel syndrome, hiatal hernia, chronic herniated disc at L3-L4, restless leg syndrome, gastritis. Patient yesterday started of with nausea followed by multiple episodes of vomiting and diffuse abdominal pain. No fever no chills. Pain did not radiate anywhere. No exacerbating or relieving factors. Presented to the ER. Computed tomography scan of the abdomen showed developing distal small bowel obstruction. Some amount of free fluid in the pelvis was noted. NG tube was placed. Admitted for the same. Seen by Dr. Fang from general surgery. Today-NG tube remains in place. Saw the patient this morning. Continues to have abdominal pain. No flatus. No bowel movement. Dr. Fang spondylytic to patient done for surgery Review of systems: Was done for constitutional, cardiovascular, GI, pulmonary. relevant finding as above Current medications are reviewed from today's date of electronic records Physical examination: VITAL SIGNS: r 98.1, 76, 16, 1:30/77, 97% GENERAL: laying in bed, uncomfortable EYES: Pupils equal. Conjunctiva normal. HEENT: External appearance of nose and ears normal, oral cavity dry with NG tube in place. NECK: JVD not raised; masses not palpable. HEART: First and second heart sounds are normal; no edema. LUNGS: Respiratory rate normal; decreased breath sounds. ABDOMEN: Soft, diffuse tenderness, no guarding or rigidity, , liver spleen not palpable, no masses palpable. PSYCH: [Alert and oriented x3; mood and affect anxious l. MUSCULOSKELETAL: Evidence of OA INVESTIGATIONS, reviewed in the clinical context: Potassium 4.3 Admission testing White count 8.9 hemoglobin 14.2 potassium 4.7 bun 28 creatinine 0.75 Accu-Cheks 263 Chest x-ray film showing NG tube in place no infiltrates Computed tomography scan of the abdomen shows developing small bowel obstruction Assessment: -Acute small bowel obstruction, persisting, slow to respond. Patient be done for surgery later today. -Coronary artery disease with stent -Diabetes mellitus type 2 -Chronic fibromyalgia -GERD -Chronic ITP -Irritable bowel syndrome -Chronic hiatal hernia -Chronic herniated disc at L3-L4 with pain -Restless leg syndrome -Primary osteoarthritis Plan: Care was discussed with the patient. Conjunctiva current medication treatment plan. Patient is going down for surgery later this afternoon. Thank you Dr. Fang
[2018-10-31 00:27] LABS: Glucose,Whole Blood 219 mg/dL (75-99)
[2018-10-31] MEDS: PIPERACILLIN-TAZOBACTAM 3.375 GM in SODIUM CHLORIDE 0.9% 100 ML IVPB SCH ×3 (00:30→16:42)
[2018-10-31] MEDS: INSULIN ASPART (NovoLOG) 100 UNIT/ML VIAL SQ SCH ×4 (00:31→18:31)
[2018-10-31 06:00] LABS: Glucose,Whole Blood 197 mg/dL (75-99)
[2018-10-31] MEDS: 0.9% NACL WITH KCL 20 MEQ/L 1,000 ML IV SCH ×2 (07:07→18:31)
[2018-10-31] MEDS: ROPIVACAINE 400 MG, HYDROMORPHONE (PF) 5 MG in SODIUM CHLORIDE 0.9% 170 ML EPIDURAL PRN (07:24)
[2018-10-31] MEDS: IPRATROPIUM-ALBUTEROL 3 ML NEB INHALATION SCH ×4 (07:58→19:29)
[2018-10-31] MEDS: SYMBICORT 160-4.5 MCG INHALER INHALATION SCH ×2 (07:58→19:29)
[2018-10-31 08:22] LABS: Basophils % (A) 0 %; Eosinophils # (A) 0.1 k/uL (0-0.7); Eosinophils % (A) 1 %; HCT 38.3 % (34.0-46.0); HGB 12.4 gm/dL (11.4-16.0); Lymphocytes # (A) 1.1 k/uL (1.0-4.8); Lymphocytes % (A) 13 %; MCH 28.1 pg (25.0-35.0); MCHC 32.4 g/dL (31.0-37.0); MCV 86.7 fL (80.0-100.0); Mean Platelet Volume 7.2; Monocytes # (A) 0.6 k/uL (0-1.0); Monocytes % (A) 7 %; Neutrophils # (A) 6.5 k/uL (1.3-7.7); Neutrophils % (A) 78 %; Platelet Count 254 k/uL (150-450); RBC 4.42 m/uL (3.80-5.40); RDW 14.3 % (11.5-15.5); WBC 8.4 k/uL (3.8-10.6)
[2018-10-31 08:36] LABS: African American GFR (CKD) >90 (>60 ml/min/1.73 sqM); Anion Gap 6 mmol/L; Blood Urea Nitrogen 14 mg/dL (7-17); Calcium 8.5 mg/dL (8.4-10.2); Carbon Dioxide 24 mmol/L (22-30); Chloride 105 mmol/L (98-107); Glucose 209 mg/dL (74-99); Magnesium 1.7 mg/dL (1.6-2.3); Phosphorus 3.9 mg/dL (2.5-4.5); Potassium 4.7 mmol/L (3.5-5.1); Sodium 135 mmol/L (137-145)
[2018-10-31] MEDS: MVI, ADULT NO.4 WITH VIT K 10 ML, TRACE (CONC-1ML/DOSE) 1 ML, POTASSIUM CHLORIDE 20 MEQ... IV SCH ×4 (10:50)
[2018-10-31] MEDS: PANTOPRAZOLE 40 MG TABLET PO SCH (10:57)
[2018-10-31] MEDS: METOPROLOL TARTRATE 25 MG TAB PO SCH ×2 (10:58→22:17)
[2018-10-31] MEDS: ASPIRIN 81 MG PO SCH ×2 (10:58→11:07)
[2018-10-31] MEDS: TAMSULOSIN 0.4 MG CAP.ER.24H PO SCH (11:00)
[2018-10-31] MEDS: TROSPIUM CHLORIDE 20 MG TABLET PO SCH ×2 (11:04→22:17)
--- NOTE | 2018-10-31 11:15 | P.PN ---
Progress Note - Text Anesthesia POD 1, 644. Status Post exploratory laparotomy with lysis of adhesions and bowel resection under general endotracheal anesthesia with an epidrual catheter placed at T10 for post surgical pain releif. VAS (2, 4) with Ropivicaine 0.15 % and Dilaudid 20 mcg / cc running at 8 cc / hr. Lower extremity strength (4/4). [] sedation. Site looks OK.
[2018-10-31 11:40] LABS: Glucose,Whole Blood 219 mg/dL (75-99)
[2018-10-31] MEDS: MAGNESIUM SULFATE-D5W PMX 1 GM in DEXTROSE/WATER 1 100ML.BAG IVPB SCH ×2 (12:05→14:03)
[2018-10-31] MEDS: INSULIN DETEMIR (LEVEMIR) 100 UNIT/ML SYR SQ SCH (12:06)
[2018-10-31 14:19] LABS: Glucose,Whole Blood 200 mg/dL (75-99)
--- NOTE | 2018-10-31 15:32 | P.PN ---
Subjective Progress Note Date: 10/31/18 CHIEF COMPLAINT: abdominal pain, vomiting HISTORY OF PRESENT ILLNESS: Patient examined this morning at the bedside. Patient is status post exploratory laparotomy, lysis of adhesions, incidental appendectomy, and small bowel resection. Postop day #1. Patient reports her pain is significantly improved this morning. Epidural is infusing at 7 mL an hour. NG tube to low intermittent suction with bilious drainage. She thinks she is passing a small amount of flatus this morning. W BC 8.4. Hemoglobin 12.4. Urine culture positive for group D enterococcus PHYSICAL EXAM: VITAL SIGNS: Reviewed. GENERAL: Well-developed in no acute distress. HEENT: NG tube to LIS with bilious drainage. No sclera icterus. Extraocular movements grossly intact. Moist buccal mucosa. Head is atraumatic, normocephalic. ABDOMEN: Soft. Nondistended. Appropriate surgical tenderness. Dressing clean dry and intact. Hypoactive bowel sounds. NEUROLOGIC: Alert and oriented. Cranial nerves II through XII grossly intact. ASSESSMENT: 1. Acute small bowel obstruction, s/p exploratory laparotomy, lysis of adhesions, incidental appendectomy, and small bowel resection 2. Hypokalemia 3. Hypomagnesemia PLAN: 1. NPO except for medications and ice chips. Possible initiation of clear liquid diet tomorrow. Continue PPN 2. Continue NG tube 3. Continue antibiotics 4. Incentive spirometry 5. Activity as tolerated. Patient encouraged to be out of bed and in the chair 6. Pain control. Continue epidural. Discontinue postop day #3 7. Continue Pino catheter while epidural in place Nurse practitioner note has been reviewed by physician. Signing provider agrees with the documented findings, assessment, and plan of care. Objective - Vital Signs Vital signs: Vital Signs Temp 98.1 F 10/31/18 14:10 Pulse 96 10/31/18 15:23 Resp 16 10/31/18 14:10 BP 104/66 10/31/18 14:10 Pulse Ox 95 10/31/18 14:10 Intake & Output 10/30/18 10/31/18 10/31/18 18:59 06:59 18:59 Intake Total 1600 38.934 21.8 Output Total 440 900 350 Balance 1160 -861.066 -328.2 Weight 60.3 kg Intake: IV 1600 Intake, IV Titration 38.934 21.8 Amount Ropivacaine 400 mg 38.934 21.8 Hydromorphone (Pf) 5 mg In Sodium Chloride 0.9% 170 ml @ Per Protocol EPIDURAL .Q0M PRN Rx#: [id number] Output: Gastric Drainage 350 Urine 400 900 Uretheral (Pino) 900 Estimated Blood Loss 40 Other: Voiding Method Indwelling Catheter Indwelling Catheter # Voids 3 - Labs CBC & Chem 7: 10/31/18 08:00 10/31/18 08:00 Labs: Abnormal Lab Results - Last 24 Hours (Table) 10/30/18 10/31/18 10/31/18 Range/Units 18:02 00:25 05:59 Sodium (137-145) mmol/L Creatinine (0.52-1.04) mg/dL Glucose (74-99) mg/dL POC Glucose (mg/dL) 226 H 219 H 197 H (75-99) mg/dL 10/31/18 10/31/18 10/31/18 Range/Units 08:00 11:39 14:01 Sodium 135 L (137-145) mmol/L Creatinine 0.50 L (0.52-1.04) mg/dL Glucose 209 H (74-99) mg/dL POC Glucose (mg/dL) 219 H 200 H (75-99) mg/dL Microbiology - Last 24 Hours (Table) 10/29/18 18:15 Urine Culture - Preliminary Urine,Voided Group D Enterococcus
[2018-10-31] MEDS: FAT EMULSION 20% 250 ML IV SCH (16:42)
[2018-10-31 18:01] LABS: Glucose,Whole Blood 169 mg/dL (75-99)
--- NOTE | 2018-10-31 21:37 | P.PN ---
Progress Note - Text Progress Note Date: 10/31/18 - Chief Complaint abdominal pain Interval history: This is a pleasant 68-year-old patient of Dr. engel from [place]. Chronic stable medical conditions include coronary artery disease with stent, diabetes type 2, fibromyalgia, GERD, ITP, irritable bowel syndrome, hiatal hernia, chronic herniated disc at L3-L4, restless leg syndrome, gastritis. Patient yesterday started of with nausea followed by multiple episodes of vomiting and diffuse abdominal pain. No fever no chills. Pain did not radiate anywhere. No exacerbating or relieving factors. Presented to the ER. Computed tomography scan of the abdomen showed developing distal small bowel obstruction. Some amount of free fluid in the pelvis was noted. NG tube was placed. Admitted for the same. Seen by Dr. Fang from general surgery. On October 30 patient with abdominal surgery. Had lysis of adhesions and a small portion 4 cm of small bowel was removed. Today-NG tube remains in place. No nausea vomiting. Some abdominal pain is present. No flat as a bowel movement. Review of systems: Was done for constitutional, cardiovascular, GI, pulmonary. relevant finding as above Active Medications Hydrocodone Bitart/Acetaminophen (Bronson 10) 1 each PO TID PRN PRN Reason: Pain Last Admin: 10/27/18 18:42 Dose: 1 each Documented by: Albuterol/Ipratropium (Duoneb 0.5 Mg-3 Mg/3 Ml Soln) 3 ml INHALATION RT-QID [facility] Last Admin: 10/31/18 19:29 Dose: 3 ml Documented by: Aspirin (Aspirin) 81 mg PO DAILY [facility] Last Admin: 10/31/18 11:07 Dose: 81 mg Documented by: Atorvastatin Calcium (Lipitor) 80 mg PO HS [facility] Last Admin: 10/30/18 22:14 Dose: Not Given Documented by: Baclofen (Lioresal) 5 mg PO TID PRN PRN Reason: Spasms Last Admin: 10/27/18 10:18 Dose: 5 mg Documented by: Budesonide/Formoterol Fumarate (Symbicort 160-4.5 Mcg Inhaler) 2 puff I NHALATION RT-BID [facility] Last Admin: 10/31/18 19:29 Dose: 2 puff Documented by: Hydromorphone HCl (Dilaudid) 1 mg IM Q3HR PRN PRN Reason: Pain Potassium Chloride/Sodium Chloride (Ns-Kcl 20 Meq/L Iv Solution) 1,000 mls @ 100 mls/hr IV .Q10H [facility] Last Admin: 10/31/18 18:31 Dose: 100 mls/hr Documented by: Fat Emulsion Intravenous (Lipids 20%) 250 mls @ 20.833 mls/hr IV DAILY@1600 [facility] Last Admin: 10/31/18 16:42 Dose: 20.833 mls/hr Documented by: Parenteral Vitamin Supplement 10 ml/ Chromium/Copper/Manganese/Seleni/Zn 1 ml/Potassium Chloride 20 meq/Amino Ac/Electrol/Dextrose/Calcium 1,021 mls @ 60 mls/hr IV .Q17H1M [facility] Last Admin: 10/31/18 10:50 Dose: 60 mls/hr Documented by: Piperacillin Sod/Tazobactam (Sod 3.375 gm/ Sodium Chloride) 100 mls @ 25 mls/hr IVPB Q8HR [facility] Last Admin: 10/31/18 16:42 Dose: 25 mls/hr Documented by: Ropivacaine 400 mg/Hydromorphone HCl 5 mg/ Sodium Chloride 250 mls @ 0 mls/hr EPIDURAL .Q0M PRN; Protocol PRN Reason: Pain Control Last Infusion: 10/31/18 18:35 Dose: 7 mls/hr Documented by: Insulin Aspart (Novolog) 0 unit SQ Q6HR [facility]; Protocol Last Admin: 10/31/18 18:31 Dose: 2 unit Documented by: Insulin Detemir (Levemir) 30 unit SQ DAILY@1200 [facility] Last Admin: 10/31/18 12:06 Dose: 30 unit Documented by: Lorazepam (Ativan) 0.5 mg IV Q6HR PRN PRN Reason: Anxiety Last Admin: 10/27/18 14:33 Dose: 0.5 mg Documented by: Melatonin (Melatonin) 3 mg PO HS [facility] Last Admin: 10/30/18 22:14 Dose: Not Given Documented by: Metoprolol Tartrate (Lopressor) 12.5 mg PO BID [facility] Last Admin: 10/31/18 10:58 Dose: 12.5 mg Documented by: Morphine Sulfate (Morphine Sulfate (Inj)) 4 mg IV Q4HR PRN PRN Reason: Severe Pain Last Admin: 10/30/18 04:45 Dose: 4 mg Documented by: Naloxone HCl (Narcan) 0.2 mg IV Q2M PRN PRN Reason: Opioid Reversal Nitroglycerin (Nitrostat) 0.4 mg SUBLINGUAL Q5M PRN PRN Reason: Chest Pain Ondansetron HCl (Zofran) 4 mg IVP Q6HR PRN PRN Reason: Nausea And Vomiting Pantoprazole Sodium (Protonix) 40 mg PO DAILY [facility] Last Admin: 10/31/18 10:57 Dose: 40 mg Documented by: Ropinirole HCl (Requip) 0.25 mg PO [facility] Last Admin: 10/30/18 22:15 Dose: Not Given Documented by: Tamsulosin HCl (Flomax) 0.4 mg PO DAILY [facility] Last Admin: 10/31/18 11:00 Dose: Not Given Documented by: Trazodone HCl (Desyrel) 50 mg PO [facility] Last Admin: 10/30/18 22:15 Dose: Not Given Documented by: Trospium (Sanctura) 20 mg PO BID [facility] Last Admin: 10/31/18 11:04 Dose: 20 mg Documented by: Physical examination: VITAL SIGNS: 98.1, 88, 16, 104/66, 95% room air GENERAL: laying in bed, uncomfortable EYES: Pupils equal. Conjunctiva normal. HEENT: External appearance of nose and ears normal, oral cavity dry with NG tube in place. NECK: JVD not raised; masses not palpable. HEART: First and second heart sounds are normal; no edema. LUNGS: Respiratory rate normal; decreased breath sounds. ABDOMEN: Binder in place. Dressing over a vertical incision. Tenderness present. Bowel sounds are sluggish PSYCH: [Alert and oriented x3; mood and affect anxious l. MUSCULOSKELETAL: Evidence of OA INVESTIGATIONS, reviewed in the clinical context: White count 8.4 hemoglobin 12.4 creatinine 0.50 Admission testing White count 8.9 hemoglobin 14.2 potassium 4.7 bun 28 creatinine 0.75 Accu-Cheks 263 Chest x-ray film showing NG tube in place no infiltrates Computed tomography scan of the abdomen shows developing small bowel obstruction Assessment: -Acute small bowel obstruction,, status post lysis of adhesions and about 4 cm small bowel was removed on 10/30/2018 -Coronary artery disease with stent -Diabetes mellitus type 2 -Chronic fibromyalgia -GERD -Chronic ITP -Irritable bowel syndrome -Chronic hiatal hernia -Chronic herniated disc at L3-L4 with pain -Restless leg syndrome -Primary osteoarthritis Plan: Operative care was discussed with Dr. Fang. Continue current medication treatment plan. IV fluids to continue. Care was discussed with the patient. Thank you Dr. Fang
[2018-10-31] MEDS: traZODone HCL 50 MG TAB PO SCH (22:17)
[2018-10-31] MEDS: ATORVASTATIN 80 MG TAB PO SCH (22:17)
[2018-10-31] MEDS: MELATONIN 3 MG TABLET PO SCH (22:18)
[2018-11-01 00:06] LABS: Glucose,Whole Blood 101 mg/dL (75-99)
[2018-11-01] MEDS: INSULIN ASPART (NovoLOG) 100 UNIT/ML VIAL SQ SCH ×5 (00:33→23:54)
[2018-11-01] MEDS: PIPERACILLIN-TAZOBACTAM 3.375 GM in SODIUM CHLORIDE 0.9% 100 ML IVPB SCH ×4 (00:53→23:54)
[2018-11-01] MEDS: ROPIVACAINE 400 MG, HYDROMORPHONE (PF) 5 MG in SODIUM CHLORIDE 0.9% 170 ML EPIDURAL PRN ×2 (05:32→20:50)
[2018-11-01] MEDS: MVI, ADULT NO.4 WITH VIT K 10 ML, TRACE (CONC-1ML/DOSE) 1 ML, POTASSIUM CHLORIDE 20 MEQ... IV SCH ×12 (05:34→22:13)
[2018-11-01 06:04] LABS: Glucose,Whole Blood 104 mg/dL (75-99)
[2018-11-01 07:16] LABS: Glucose,Whole Blood 117 mg/dL (75-99)
--- NOTE | 2018-11-01 07:26 | P.PN ---
Progress Note - Text 11/01 712am 68-year-old female status post exploratory lap. Patient has an epidural catheter running at 9 mL an hour, she has complains a VAS of 7, but does not look in any visible distress. No sensory or motor deficit noted. Continue epidural infusion for another day and DC'd in a.m.
[2018-11-01] MEDS: SYMBICORT 160-4.5 MCG INHALER INHALATION SCH ×2 (08:11→19:31)
[2018-11-01] MEDS: IPRATROPIUM-ALBUTEROL 3 ML NEB INHALATION SCH ×4 (08:11→19:31)
[2018-11-01 08:15] LABS: African American GFR (CKD) >90 (>60 ml/min/1.73 sqM); Anion Gap 9 mmol/L; Blood Urea Nitrogen 12 mg/dL (7-17); Calcium 8.6 mg/dL (8.4-10.2); Carbon Dioxide 26 mmol/L (22-30); Chloride 100 mmol/L (98-107); Glucose 117 mg/dL (74-99); Magnesium 1.6 mg/dL (1.6-2.3); Potassium 4.3 mmol/L (3.5-5.1); Sodium 135 mmol/L (137-145)
[2018-11-01 08:30] LABS: Basophils % (A) 0 %; Eosinophils # (A) 0.6 k/uL (0-0.7); Eosinophils % (A) 7 %; HCT 38.2 % (34.0-46.0); HGB 12.4 gm/dL (11.4-16.0); Lymphocytes # (A) 1.4 k/uL (1.0-4.8); Lymphocytes % (A) 16 %; MCH 27.9 pg (25.0-35.0); MCHC 32.6 g/dL (31.0-37.0); MCV 85.8 fL (80.0-100.0); Mean Platelet Volume 8.6; Monocytes # (A) 0.7 k/uL (0-1.0); Monocytes % (A) 8 %; Neutrophils # (A) 5.9 k/uL (1.3-7.7); Neutrophils % (A) 68 %; Platelet Count 256 k/uL (150-450); RBC 4.45 m/uL (3.80-5.40); RDW 15.5 % (11.5-15.5); WBC 8.7 k/uL (3.8-10.6)
[2018-11-01] MEDS: TROSPIUM CHLORIDE 20 MG TABLET PO SCH ×2 (10:46→20:50)
[2018-11-01] MEDS: METOPROLOL TARTRATE 25 MG TAB PO SCH ×2 (10:47→20:51)
[2018-11-01] MEDS: ASPIRIN 81 MG PO SCH (10:47)
[2018-11-01] MEDS: TAMSULOSIN 0.4 MG CAP.ER.24H PO SCH (10:51)
[2018-11-01] MEDS: PANTOPRAZOLE 40 MG TABLET PO SCH (10:51)
[2018-11-01] MEDS: 0.9% NACL WITH KCL 20 MEQ/L 1,000 ML IV SCH ×2 (11:03→22:11)
--- NOTE | 2018-11-01 11:25 | P.PN ---
Subjective Progress Note Date: 11/01/18 CHIEF COMPLAINT: abdominal pain, vomiting HISTORY OF PRESENT ILLNESS: Patient examined this morning at the bedside. Patient is status post exploratory laparotomy, lysis of adhesions, incidental appendectomy, and small bowel resection. Postop day #2. Patient reports increased abdominal pain this morning. Epidural was increased with stated pain relief. NG tube to low intermittent suction with bilious drainage. Patient states she passed a small amount of flatus overnight but has not been passing flatus this morning. Vital signs stable. She is afebrile. PHYSICAL EXAM: VITAL SIGNS: Reviewed. GENERAL: Well-developed in no acute distress. HEENT: NG tube to LIS with bilious drainage. No sclera icterus. Extraocular movements grossly intact. Moist buccal mucosa. Head is atraumatic, normocephalic. ABDOMEN: Soft. Nondistended. Appropriate surgical tenderness. Dressing clean dry and intact. Hypoactive bowel sounds. NEUROLOGIC: Alert and oriented. Cranial nerves II through XII grossly intact. ASSESSMENT: 1. Acute small bowel obstruction, s/p exploratory laparotomy, lysis of adhesions, incidental appendectomy, and small bowel resection 2. Hypokalemia 3. Hypomagnesemia PLAN: 1. NPO except for medications and ice chips. Continue PPN. Will initiate clear liquid diet when patient begins passing flatus. 2. Continue NG tube 3. Continue antibiotics 4. Incentive spirometry 5. Activity as tolerated. Patient encouraged to be out of bed and in the chair 6. Pain control. Continue epidural. Discontinue postop day #3 7. Continue Pino catheter while epidural in place Nurse practitioner note has been reviewed by physician. Signing provider agrees with the documented findings, assessment, and plan of care. Objective - Vital Signs Vital signs: Vital Signs Temp 98.4 F 11/01/18 07:00 Pulse 76 11/01/18 08:24 Resp 14 11/01/18 07:00 BP 122/69 11/01/18 07:00 Pulse Ox 96 11/01/18 07:00 Intake & Output 10/31/18 11/01/18 11/01/18 18:59 06:59 18:59 Intake Total 88.9 1103.634 Output Total 975 2425 200 Balance -886.1 -1321.366 -200 Weight 54.8 kg Intake: Intake, IV Titration 88.9 1103.634 Amount 0.9% NaCl with KCl 20 Meq 300 /l 1,000 ml @ 100 mls/hr IV .Q10H [facility] Rx#: [id number] Fat Emulsion 20% 250 ml @ 250 20.833 mls/hr IV DAILY@ 1600 [facility] Rx#:[id number] Mvi, Adult No.4 with Vit 360 K 10 ml Trace (Conc-1Ml/ Dose) 1 ml Potassium Chloride 20 meq In Amino Acid 4.25%-D10w+Lytes*E* 1,000 ml @ 60 mls/hr IV . Q17H1M [facility] Rx#:[id number] Piperacillin-Tazobactam 3 100 .375 gm In Sodium Chloride 0.9% 100 ml @ 25 mls/hr IVPB Q8HR [facility] Rx# :[id number] Ropivacaine 400 mg 88.9 93.634 Hydromorphone (Pf) 5 mg In Sodium Chloride 0.9% 170 ml @ Per Protocol EPIDURAL .Q0M [facility] Rx#: [id number] Output: Gastric Drainage 550 200 Urine 425 1950 Oral Regurgitation 475 Other: Voiding Method Indwelling Catheter Indwelling Catheter Indwelling Catheter - Labs CBC & Chem 7: 11/01/18 07:41 11/01/18 07:41 Labs: Abnormal Lab Results - Last 24 Hours (Table) 10/31/18 10/31/18 10/31/18 Range/Units 11:39 14:01 17:58 Sodium (137-145) mmol/L Creatinine (0.52-1.04) mg/dL Glucose (74-99) mg/dL POC Glucose (mg/dL) 219 H 200 H 169 H (75-99) mg/dL 11/01/18 11/01/18 11/01/18 Range/Units 00:03 06:01 07:16 Sodium (137-145) mmol/L Creatinine (0.52-1.04) mg/dL Glucose (74-99) mg/dL POC Glucose (mg/dL) 101 H 104 H 117 H (75-99) mg/dL 11/01/18 Range/Units 07:41 Sodium 135 L (137-145) mmol/L Creatinine 0.43 L (0.52-1.04) mg/dL Glucose 117 H (74-99) mg/dL POC Glucose (mg/dL) (75-99) mg/dL Microbiology - Last 24 Hours (Table) 10/29/18 18:15 Urine Culture - Final Urine,Voided Enterococcus faecalis
[2018-11-01 11:53] LABS: Glucose,Whole Blood 160 mg/dL (75-99)
[2018-11-01] MEDS: INSULIN DETEMIR (LEVEMIR) 100 UNIT/ML SYR SQ SCH (12:26)
[2018-11-01] MEDS: MAGNESIUM SULFATE-D5W PMX 1 GM in DEXTROSE/WATER 1 100ML.BAG IVPB SCH ×2 (15:43→16:59)
[2018-11-01 16:35] LABS: Glucose,Whole Blood 163 mg/dL (75-99)
[2018-11-01] MEDS: FAT EMULSION 20% 250 ML IV SCH (17:00)
--- NOTE | 2018-11-01 20:11 | P.PN ---
Progress Note - Text Progress Note Date: 11/01/18 - Chief Complaint abdominal pain Interval history: This is a pleasant 68-year-old patient of Dr. engel from [place]. Chronic stable medical conditions include coronary artery disease with stent, diabetes type 2, fibromyalgia, GERD, ITP, irritable bowel syndrome, hiatal hernia, chronic herniated disc at L3-L4, restless leg syndrome, gastritis. Patient yesterday started of with nausea followed by multiple episodes of vomiting and diffuse abdominal pain. No fever no chills. Pain did not radiate anywhere. No exacerbating or relieving factors. Presented to the ER. Computed tomography scan of the abdomen showed developing distal small bowel obstruction. Some amount of free fluid in the pelvis was noted. NG tube was placed. Admitted for the same. Seen by Dr. Fang from general surgery. On October 30 patient with abdominal surgery. Had lysis of adhesions and a small portion 4 cm of small bowel was removed. Today-feeling much better today. Much less abdominal pain. Remains an epidural pain pump. NG tube remains in place. No factors of bowel movement. Patient started on TPN this morning Review of systems: Was done for constitutional, cardiovascular, GI, pulmonary. relevant finding as above Active Medications Hydrocodone Bitart/Acetaminophen (Kennan 10) 1 each PO TID PRN PRN Reason: Pain Last Admin: 10/27/18 18:42 Dose: 1 each Documented by: Albuterol/Ipratropium (Duoneb 0.5 Mg-3 Mg/3 Ml Soln) 3 ml INHALATION RT-QID [facility] Last Admin: 11/01/18 19:31 Dose: 3 ml Documented by: Aspirin (Aspirin) 81 mg PO DAILY [facility] Last Admin: 11/01/18 10:47 Dose: 81 mg Documented by: Atorvastatin Calcium (Lipitor) 80 mg PO HS [facility] Last Admin: 10/31/18 22:17 Dose: 80 mg Documented by: Baclofen (Lioresal) 5 mg PO TID PRN PRN Reason: Spasms Last Admin: 10/27/18 10:18 Dose: 5 mg Documented by: Budesonide/Formoterol Fumarate (Symbicort 160-4.5 Mcg Inhaler) 2 puff INHALATION RT-BID [facility] Last Admin: 11/01/18 19:31 Dose: 2 puff Documented by: Hydromorphone HCl (Dilaudid) 1 mg IM Q3HR PRN PRN Reason: Pain Potassium Chloride/Sodium Chloride (Ns-Kcl 20 Meq/L Iv Solution) 1,000 mls @ 100 mls/hr IV .Q10H [facility] Last Admin: 11/01/18 11:03 Dose: Not Given Documented by: Fat Emulsion Intravenous (Lipids 20%) 250 mls @ 20.833 mls/hr IV DAILY@1600 [facility] Last Admin: 11/01/18 17:00 Dose: 20.833 mls/hr Documented by: Piperacillin Sod/Tazobactam (Sod 3.375 gm/ Sodium Chloride) 100 mls @ 25 mls/hr IVPB Q8HR [facility] Last Admin: 11/01/18 18:29 Dose: 25 mls/hr Documented by: Ropivacaine 400 mg/Hydromorphone HCl 5 mg/ Sodium Chloride 250 mls @ 0 mls/hr EPIDURAL .Q0M PRN; Protocol PRN Reason: Pain Control Last Infusion: 11/01/18 12:26 Dose: 10 mls/hr Documented by: Parenteral Vitamin Supplement 10 ml/ Chromium/Copper/Manganese/Seleni/Zn 1 ml/Potassium Chloride 20 meq/Amino Ac/Electrol/Dextrose/Calcium 1,021 mls @ 60 mls/hr IV .Q17H1M [facility] Stop: 11/01/18 22:59 Last Admin: 11/01/18 05:47 Dose: 60 mls/hr Documented by: Parenteral Vitamin Supplement 10 ml/ Chromium/Copper/Manganese/Seleni/Zn 1 ml/Potassium Chloride 20 meq/Magnesium Sulfate 1 gm/ Sodium Chloride 10 meq/ Amino Ac/Electrol/Dextrose/Calcium 1,027 mls @ 60 mls/hr IV .Q17H7M [facility] Insulin Aspart (Novolog) 0 unit SQ Q6HR [facility]; Protocol Last Admin: 11/01/18 18:29 Dose: 1 unit Documented by: Insulin Detemir (Levemir) 30 unit SQ DAILY@1200 [facility] Last Admin: 11/01/18 12:26 Dose: Not Given Documented by: Lorazepam (Ativan) 0.5 mg IV Q6HR PRN PRN Reason: Anxiety Last Admin: 10/27/18 14:33 Dose: 0.5 mg Documented by: Melatonin (Melatonin) 3 mg PO HS [facility] Last Admin: 10/31/18 22:18 Dose: 3 mg Documented by: Metoprolol Tartrate (Lopressor) 12.5 mg PO BID [facility] Last Admin: 11/01/18 10:47 Dose: 12.5 mg Documented by: Morphine Sulfate (Morphine Sulfate (Inj)) 4 mg IV Q4HR PRN PRN Reason: Severe Pain Last Admin: 10/30/18 04:45 Dose: 4 mg Documented by: Naloxone HCl (Narcan) 0.2 mg IV Q2M PRN PRN Reason: Opioid Reversal Nitroglycerin (Nitrostat) 0.4 mg SUBLINGUAL Q5M PRN PRN Reason: Chest Pain Ondansetron HCl (Zofran) 4 mg IVP Q6HR PRN PRN Reason: Nausea And Vomiting Pantoprazole Sodium (Protonix) 40 mg PO DAILY [facility] Last Admin: 11/01/18 10:51 Dose: 40 mg Documented by: Ropinirole HCl (Requip) 0.25 mg PO [facility] Last Admin: 10/31/18 22:17 Dose: 0.25 mg Documented by: Tamsulosin HCl (Flomax) 0.4 mg PO DAILY [facility] Last Admin: 11/01/18 10:51 Dose: Not Given Documented by: Trazodone HCl (Desyrel) 50 mg PO HS [facility] Last Admin: 10/31/18 22:17 Dose: 50 mg Documented by: Trospium (Sanctura) 20 mg PO BID [facility] Last Admin: 11/01/18 10:46 Dose: 20 mg Documented by: Physical examination: VITAL SIGNS: 98.4, 90, 14, 122 x 69, 96% room air GENERAL: laying in bed, far more comfortable today EYES: Pupils equal. Conjunctiva normal. HEENT: External appearance of nose and ears normal, oral cavity dry with NG tube in place. NECK: JVD not raised; masses not palpable. HEART: First and second heart sounds are normal; no edema. LUNGS: Respiratory rate normal; decreased breath sounds. ABDOMEN: Binder in place. Dressing over a vertical incision. Tenderness present. Bowel sounds are sluggish PSYCH: [Alert and oriented x3; mood and affect anxious l. MUSCULOSKELETAL: Evidence of OA INVESTIGATIONS, reviewed in the clinical context: White count 8.7 hemoglobin 12.4 creatinine 0.43 Admission testing White count 8.9 hemoglobin 14.2 potassium 4.7 bun 28 creatinine 0.75 Accu-Cheks 263 Chest x-ray film showing NG tube in place no infiltrates Computed tomography scan of the abdomen shows developing small bowel obstruction Assessment: -Acute small bowel obstruction,, status post lysis of adhesions and about 4 cm small bowel was removed on 10/30/2018 -Coronary artery disease with stent -Diabetes mellitus type 2 -Chronic fibromyalgia -GERD -Chronic ITP -Irritable bowel syndrome -Chronic hiatal hernia -Chronic herniated disc at L3-L4 with pain -Restless leg syndrome -Primary osteoarthritis Plan: Patient definitely looking better. TPN was started today. Hopefully epidural pain pump can come off tomorrow. Care was discussed the patient. Thank you Dr. Fang
[2018-11-01] MEDS: traZODone HCL 50 MG TAB PO SCH (20:50)
[2018-11-01] MEDS: MELATONIN 3 MG TABLET PO SCH (20:50)
[2018-11-01] MEDS: ATORVASTATIN 80 MG TAB PO SCH (20:51)
[2018-11-01] MEDS ORDERED: MVI, ADULT NO.4 WITH VIT K 10 ML, TRACE (CONC-1ML/DOSE) 1 ML, POTASSIUM CHLORIDE 20 MEQ... IV SCH ×6 (23:00)
[2018-11-01 23:52] LABS: Glucose,Whole Blood 262 mg/dL (75-99)
[2018-11-02 05:59] LABS: Glucose,Whole Blood 243 mg/dL (75-99)
[2018-11-02] MEDS: 0.9% NACL WITH KCL 20 MEQ/L 1,000 ML IV SCH ×2 (06:13→17:25)
[2018-11-02] MEDS: INSULIN ASPART (NovoLOG) 100 UNIT/ML VIAL SQ SCH ×3 (06:13→17:28)
[2018-11-02 07:47] LABS: African American GFR (CKD) >90 (>60 ml/min/1.73 sqM); Anion Gap 9 mmol/L; Blood Urea Nitrogen 12 mg/dL (7-17); Calcium 8.5 mg/dL (8.4-10.2); Carbon Dioxide 24 mmol/L (22-30); Chloride 101 mmol/L (98-107); Glucose 199 mg/dL (74-99); Phosphorus 4.3 mg/dL (2.5-4.5); Potassium 4.7 mmol/L (3.5-5.1); Sodium 134 mmol/L (137-145)
[2018-11-02] MEDS: PIPERACILLIN-TAZOBACTAM 3.375 GM in SODIUM CHLORIDE 0.9% 100 ML IVPB SCH ×3 (09:07→23:02)
[2018-11-02] MEDS: PANTOPRAZOLE 40 MG TABLET PO SCH (09:09)
--- NOTE | 2018-11-02 09:09 | P.PN ---
Progress Note - Text Progress Note Date: 11/02/18 Patient is without complaints. Pain controlled. Denies leg weakness. Denies headache. No pruritis. Epidural @ 8ml/hr. Currently the patient still has NGT with significant output. Epidural site is clean and dry A/P POD#3 s/p ex lap, JOSEPH, bowel resection - given the patient is still NPO, I would continue epidural for now
[2018-11-02] MEDS: TROSPIUM CHLORIDE 20 MG TABLET PO SCH ×2 (09:14→20:45)
[2018-11-02] MEDS: METOPROLOL TARTRATE 25 MG TAB PO SCH ×2 (09:14→20:45)
[2018-11-02] MEDS: ASPIRIN 81 MG PO SCH (09:14)
[2018-11-02] MEDS: TAMSULOSIN 0.4 MG CAP.ER.24H PO SCH (09:15)
[2018-11-02] MEDS: IPRATROPIUM-ALBUTEROL 3 ML NEB INHALATION SCH ×4 (09:37→19:57)
[2018-11-02] MEDS: SYMBICORT 160-4.5 MCG INHALER INHALATION SCH ×2 (09:37→19:57)
[2018-11-02 11:17] LABS: Glucose,Whole Blood 223 mg/dL (75-99)
[2018-11-02 13:13] LABS: Glucose,Whole Blood 221 mg/dL (75-99)
[2018-11-02] MEDS: INSULIN DETEMIR (LEVEMIR) 100 UNIT/ML SYR SQ SCH (13:24)
[2018-11-02] MEDS: MVI, ADULT NO.4 WITH VIT K 10 ML, TRACE (CONC-1ML/DOSE) 1 ML, POTASSIUM CHLORIDE 10 MEQ... IV SCH ×6 (13:59)
--- NOTE | 2018-11-02 16:25 | P.PN ---
Subjective Progress Note Date: 11/02/18 CHIEF COMPLAINT: Small bowel resection HISTORY OF PRESENT ILLNESS: The patient is a 68-year-old female status post lysis of adhesions and small bowel resection 10/30/2018. She is passing some flatus. "I have had this tube in my nose for 1 week!" She reports difficulty moving around with multiple tubes including boudreaux catheter, NGT and TPN. ROS: No reports of nausea and vomiting. No bowel movements. No fevers or chills. No new chest pain. No productive sputum PHYSICAL EXAM: VITAL SIGNS: Reviewed CONSTITUTIONAL: Well developed and in no acute distress. EYES: Conjuctivae without sclera icterus. Extraocular movements grossly intact. HEAD, EARS, NOSE, THROAT: Moist buccal mucosa. Head is atraumatic, normocephalic. Hears conversational speech. No nasal drainage. NECK: Supple. No thyroidomegaly. RESPIRATORY: Non-labored respirations and equal bilateral excursions. CARDIOVASCULAR: Palpable 2+ radial pulses. Regular rate. Regular rhythm. ABDOMEN: Incisions clean dry and intact. Soft. No peritonitis. MUSCULOSKELETAL: No gross deformity of the lower extremities noted. No club lilian. No cyanosis. SKIN: Good skin turgor. Well perfused. NEUROLOGIC: Cranial nerves I through XII grossly intact. No focal or lateralizing signs. PSYCH: Appropriate affect. Alert and oriented to person, place and time. CLINCAL LABS: White blood cell count normal ASSESSMENT: 1. Small bowel obstruction PLAN: 1. Recommend abdominal xray with possible removal of NGT and trial of clears tomorrow Objective - Vital Signs Vital signs: Vital Signs Temp 98.7 F 11/02/18 14:08 Pulse 78 11/02/18 16:17 Resp 16 11/02/18 14:08 BP 100/66 11/02/18 14:08 Pulse Ox 95 11/02/18 14:08 Intake & Output 11/01/18 11/02/18 11/02/18 18:59 06:59 18:59 Intake Total 50.85 1684 1120 Output Total 325 2225 700 Balance -274.15 -541 420 Weight 54.8 kg 53.7 kg Intake: Intake, IV Titration 50.85 1684 1120 Amount 0.9% NaCl with KCl 20 Meq 1000 /l 1,000 ml @ 100 mls/hr IV .Q10H [facility] Rx#: [id number] Lactated Ringers 1,000 ml 700 @ 0 mls/hr IV .[facility] Rx#:[id number] Mvi, Adult No.4 with Vit 420 K 10 ml Trace (Conc-1Ml/ Dose) 1 ml Potassium Chloride 10 meq Magnesium Sulfate gm 0.5 gm Sodium Chloride 2.5MEQ/ml Vial 20 meq In Amino Acid 4.25 %-D10w+Lytes*E* 1,000 ml @ 60 mls/hr IV .Q17H5M [facility] Rx#:[id number] Mvi, Adult No.4 with Vit 600 K 10 ml Trace (Conc-1Ml/ Dose) 1 ml Potassium Chloride 20 meq Magnesium Sulfate gm 1 gm Sodium Chloride 2.5MEQ/ml Vial 10 meq In Amino Acid 4.25 %-D10w+Lytes*E* 1,000 ml @ 60 mls/hr IV .Q17H7M [facility] Rx#:[id number] Ropivacaine 400 mg 50.85 84 Hydromorphone (Pf) 5 mg In Sodium Chloride 0.9% 170 ml @ Per Protocol EPIDURAL .Q0M [facility] Rx#: [id number] Output: Gastric Drainage 200 200 100 Urine 2025 600 Uretheral (Boudreaux) 2025 Oral Regurgitation 125 Other: Voiding Method Indwelling Catheter Indwelling Catheter Indwelling Catheter - Labs CBC & Chem 7: 11/01/18 07:41 11/02/18 07:14 Labs: Abnormal Lab Results - Last 24 Hours (Table) 11/01/18 11/01/18 11/02/18 Range/Units 16:33 23:41 05:57 Sodium (137-145) mmol/L Creatinine (0.52-1.04) mg/dL Glucose (74-99) mg/dL POC Glucose (mg/dL) 163 H 262 H 243 H (75-99) mg/dL 11/02/18 11/02/18 11/02/18 Range/Units 07:14 11:16 13:12 Sodium 134 L (137-145) mmol/L Creatinine 0.42 L (0.52-1.04) mg/dL Glucose 199 H (74-99) mg/dL POC Glucose (mg/dL) 223 H 221 H (75-99) mg/dL Assessment and Plan (1) Ileus Current Visit: Yes Status: Acute Code(s): K56.7 - ILEUS, UNSPECIFIED SNOMED Code(s): 734187270 (2) Small bowel obstruction Current Visit: Yes Status: Acute Code(s): K56.609 - UNSP INTESTNL OBST, UNSP TO PARTIAL VERSUS COMPLETE OBST SNOMED Code(s): 289909399 (3) Abdominal pain Current Visit: No Status: Acute Code(s): R10.9 - UNSPECIFIED ABDOMINAL PAIN SNOMED Code(s): 51536310
--- NOTE | 2018-11-02 17:11 | P.PN ---
Progress Note - Text Progress Note Date: 11/02/18 - Chief Complaint abdominal pain Interval history: This is a pleasant 68-year-old patient of Dr. engel from [place]. Chronic stable medical conditions include coronary artery disease with stent, diabetes type 2, fibromyalgia, GERD, ITP, irritable bowel syndrome, hiatal hernia, chronic herniated disc at L3-L4, restless leg syndrome, gastritis. Patient yesterday started of with nausea followed by multiple episodes of vomiting and diffuse abdominal pain. No fever no chills. Pain did not radiate anywhere. No exacerbating or relieving factors. Presented to the ER. Computed tomography scan of the abdomen showed developing distal small bowel obstruction. Some amount of free fluid in the pelvis was noted. NG tube was placed. Admitted for the same. Seen by Dr. Fang from general surgery. On October 30 patient with abdominal surgery. Had lysis of adhesions and a small portion 4 cm of small bowel was removed. Today-laying in bed. More cheerful today. NG tube remains in place. Still has epidural in place. Pains better. No some is still present. In the abdomen. No flatus or bowel movement. Review of systems: Was done for constitutional, cardiovascular, GI, pulmonary. relevant finding as above Active Medications Hydrocodone Bitart/Acetaminophen (Bowlus 10) 1 each PO TID PRN PRN Reason: Pain Last Admin: 10/27/18 18:42 Dose: 1 each Documented by: Albuterol/Ipratropium (Duoneb 0.5 Mg-3 Mg/3 Ml Soln) 3 ml INHALATION RT-QID [facility] Last Admin: 11/02/18 16:15 Dose: 3 ml Documented by: Aspirin (Aspirin) 81 mg PO DAILY [facility] Last Admin: 11/02/18 09:14 Dose: 81 mg Documented by: Atorvastatin Calcium (Lipitor) 80 mg PO HS [facility] Last Admin: 11/01/18 20:51 Dose: 80 mg Documented by: Baclofen (Lioresal) 5 mg PO TID PRN PRN Reason: Spasms Last Admin: 10/27/18 10:18 Dose: 5 mg Documented by: Budesonide/Formoterol Fumarate (Symbicort 160-4.5 Mcg Inhaler) 2 puff INHALATION RT-BID [facility] Last Admin: 11/02/18 09:37 Dose: 2 puff Documented by: Hydromorphone HCl (Dilaudid) 1 mg IM Q3HR PRN PRN Reason: Pain Potassium Chloride/Sodium Chloride (Ns-Kcl 20 Meq/L Iv Solution) 1,000 mls @ 100 mls/hr IV .Q10H [facility] Last Admin: 11/02/18 06:13 Dose: 100 mls/hr Documented by: Fat Emulsion Intravenous (Lipids 20%) 250 mls @ 20.833 mls/hr IV DAILY@1600 [facility] Last Admin: 11/01/18 17:00 Dose: 20.833 mls/hr Documented by: Piperacillin Sod/Tazobactam (Sod 3.375 gm/ Sodium Chloride) 100 mls @ 25 mls/hr IVPB Q8HR [facility] Last Admin: 11/02/18 09:07 Dose: 25 mls/hr Documented by: Ropivacaine 400 mg/Hydromorphone HCl 5 mg/ Sodium Chloride 250 mls @ 0 mls/hr EPIDURAL .Q0M PRN; Protocol PRN Reason: Pain Control Last Admin: 11/01/18 20:50 Dose: 9 mls/hr Documented by: Parenteral Vitamin Supplement 10 ml/ Chromium/Copper/Manganese/Seleni/Zn 1 ml/Potassium Chloride 10 meq/Magnesium Sulfate 0.5 gm/Sodium Chloride 20 meq/ Amino Ac/Electrol/Dextrose/Calcium 1,025 mls @ 60 mls/hr IV .Q17H5M [facility] Last Admin: 11/02/18 13:59 Dose: 60 mls/hr Documented by: Insulin Aspart (Novolog) 0 unit SQ Q6HR [facility]; Protocol Last Admin: 11/02/18 13:25 Dose: 3 unit Documented by: Insulin Detemir (Levemir) 30 unit SQ DAILY@1200 [facility] Last Admin: 11/02/18 13:24 Dose: 30 unit Documented by: Lorazepam (Ativan) 0.5 mg IV Q6HR PRN PRN Reason: Anxiety Last Admin: 10/27/18 14:33 Dose: 0.5 mg Documented by: Melatonin (Melatonin) 3 mg PO HS [facility] Last Admin: 11/01/18 20:50 Dose: 3 mg Documented by: Metoprolol Tartrate (Lopressor) 12.5 mg PO BID [facility] Last Admin: 11/02/18 09:14 Dose: 12.5 mg Documented by: Morphine Sulfate (Morphine Sulfate (Inj)) 4 mg IV Q4HR PRN PRN Reason: Severe Pain Last Admin: 10/30/18 04:45 Dose: 4 mg Documented by: Naloxone HCl (Narcan) 0.2 mg IV Q2M PRN PRN Reason: Opioid Reversal Nitroglycerin (Nitrostat) 0.4 mg SUBLINGUAL Q5M PRN PRN Reason: Chest Pain Ondansetron HCl (Zofran) 4 mg IVP Q6HR PRN PRN Reason: Nausea And Vomiting Pantoprazole Sodium (Protonix) 40 mg PO DAILY [facility] Last Admin: 11/02/18 09:09 Dose: 40 mg Documented by: Ropinirole HCl (Requip) 0.25 mg PO [facility] Last Admin: 11/01/18 20:51 Dose: 0.25 mg Documented by: Tamsulosin HCl (Flomax) 0.4 mg PO DAILY [facility] Last Admin: 11/02/18 09:15 Dose: Not Given Documented by: Trazodone HCl (Desyrel) 50 mg PO [facility] Last Admin: 11/01/18 20:50 Dose: 50 mg Documented by: Trospium (Sanctura) 20 mg PO BID [facility] Last Admin: 11/02/18 09:14 Dose: 20 mg Documented by: Physical examination: VITAL SIGNS: 98.4, 78, 12, 112/50, 97% room air GENERAL: laying in bed, comfortable, hooked up to epidural EYES: Pupils equal. Conjunctiva normal. HEENT: External appearance of nose and ears normal, oral cavity dry with NG tube in place. NECK: JVD not raised; masses not palpable. HEART: First and second heart sounds are normal; no edema. LUNGS: Respiratory rate normal; decreased breath sounds. ABDOMEN: Binder in place. Dressing over a vertical incision. Tenderness present. Bowel sounds are sluggish PSYCH: [Alert and oriented x3; mood and affect anxious l. MUSCULOSKELETAL: Evidence of OA INVESTIGATIONS, reviewed in the clinical context: Potassium 4.7 creatinine 0.42 Accu-Cheks noted Admission testing White count 8.9 hemoglobin 14.2 potassium 4.7 bun 28 creatinine 0.75 Accu-Cheks 263 Chest x-ray film showing NG tube in place no infiltrates Computed tomography scan of the abdomen shows developing small bowel obstruction Assessment: -Acute small bowel obstruction,, status post lysis of adhesions and about 4 cm small bowel was removed on 10/30/2018, NG tube remains in place, hooked up to epidural -Coronary artery disease with stent -Diabetes mellitus type 2 -Chronic fibromyalgia -GERD -Chronic ITP -Irritable bowel syndrome -Chronic hiatal hernia -Chronic herniated disc at L3-L4 with pain -Restless leg syndrome -Primary osteoarthritis Plan: Care was discussed with the patient. Continue with IV fluid supportive care. Hopefully patient gets of the epidural and should benefit the bowels. Continue with TPN Thank you Dr. Fang
[2018-11-02] MEDS: FAT EMULSION 20% 250 ML IV SCH (17:25)
[2018-11-02 17:45] LABS: Glucose,Whole Blood 159 mg/dL (75-99)
[2018-11-02] MEDS: ROPIVACAINE 400 MG, HYDROMORPHONE (PF) 5 MG in SODIUM CHLORIDE 0.9% 170 ML EPIDURAL PRN ×2 (19:30→22:10)
[2018-11-02 20:31] LABS: Glucose,Whole Blood 154 mg/dL (75-99)
[2018-11-02] MEDS: ATORVASTATIN 80 MG TAB PO SCH (20:45)
[2018-11-02] MEDS: traZODone HCL 50 MG TAB PO SCH (20:45)
[2018-11-02] MEDS: MELATONIN 3 MG TABLET PO SCH (20:45)
[2018-11-03 00:06] LABS: Glucose,Whole Blood 183 mg/dL (75-99)
[2018-11-03] MEDS: INSULIN ASPART (NovoLOG) 100 UNIT/ML VIAL SQ SCH ×4 (00:18→17:59)
[2018-11-03] MEDS: 0.9% NACL WITH KCL 20 MEQ/L 1,000 ML IV SCH ×2 (03:23→12:13)
[2018-11-03] MEDS: MVI, ADULT NO.4 WITH VIT K 10 ML, TRACE (CONC-1ML/DOSE) 1 ML, POTASSIUM CHLORIDE 10 MEQ... IV SCH ×6 (05:21)
[2018-11-03 05:46] LABS: Glucose,Whole Blood 174 mg/dL (75-99)
[2018-11-03 07:56] LABS: African American GFR (CKD) >90 (>60 ml/min/1.73 sqM); Anion Gap 12 mmol/L; Blood Urea Nitrogen 11 mg/dL (7-17); Carbon Dioxide 23 mmol/L (22-30); Chloride 102 mmol/L (98-107); Glucose 160 mg/dL (74-99); Sodium 137 mmol/L (137-145)
[2018-11-03 07:58] LABS: Magnesium 1.9 mg/dL (1.6-2.3); Phosphorus 4.7 mg/dL (2.5-4.5)
[2018-11-03] MEDS: TROSPIUM CHLORIDE 20 MG TABLET PO SCH ×2 (08:06→21:50)
[2018-11-03] MEDS: PIPERACILLIN-TAZOBACTAM 3.375 GM in SODIUM CHLORIDE 0.9% 100 ML IVPB SCH ×2 (08:06→15:36)
[2018-11-03] MEDS: METOPROLOL TARTRATE 25 MG TAB PO SCH ×2 (08:07→21:50)
[2018-11-03] MEDS: PANTOPRAZOLE 40 MG TABLET PO SCH (08:07)
[2018-11-03] MEDS: ASPIRIN 81 MG PO SCH (08:08)
[2018-11-03] MEDS: TAMSULOSIN 0.4 MG CAP.ER.24H PO SCH (08:08)
--- NOTE | 2018-11-03 08:20 | P.PN ---
Progress Note - Text Progress Note Date: 11/03/18 Patient without complaints of pain. Denies leg weakness or headache. Epidural @ 10 ml/hr. NGT with bilious output. Epidural site clean and dry A/P POD#4 s/p ex lap, JOSEPH, bowel resection - keep epidural at current rate
[2018-11-03] MEDS: SYMBICORT 160-4.5 MCG INHALER INHALATION SCH ×2 (08:35→20:24)
[2018-11-03] MEDS: IPRATROPIUM-ALBUTEROL 3 ML NEB INHALATION SCH ×4 (08:35→20:23)
--- NOTE | 2018-11-03 09:25 | XR ---
EXAMINATION TYPE: XR abdomen acute w cxr DATE OF EXAM: 11/03/2018 COMPARISON: 04/04/2014 HISTORY: Bowel obstruction TECHNIQUE: Acute abdominal series performed with a frontal chest upright and supine views of the abdo men. FINDINGS: Nasogastric tube transverses the thorax the tip in left upper quadrant of the abdomen. Free air is under the right diaphragm. There is some elevation left diaphragm and small left pleural effu tanja. Correlate for atelectasis. There appears to be some interval development of fullness in the lef t hilar region. Follow-up is recommended. Left perihilar mass is not excluded. Contrast is within the colon. Nonspecific bowel loops are within the midabdomen. Surgical clips are i n the midline. Bowel luis a appear to be within the lower pelvis. There may be some dilated small jose luis wel loops in the left midabdomen with air-fluid levels. Partial obstruction and ileus should be consi dered. Degenerative changes are in the lumbar spine. Fecal debris is at the colon. IMPRESSION: 1. Nonspecific abdomen in a postsurgical acute abdominal series. Some free air associated with the s urgery is evident. Ileus and/or partial small bowel obstruction remains present left upper quadrant. Continued follow-up is recommended.
[2018-11-03 11:04] LABS: Glucose,Whole Blood 138 mg/dL (75-99)
--- NOTE | 2018-11-03 11:26 | P.PN ---
Subjective Progress Note Date: 11/03/18 CHIEF COMPLAINT: Small bowel resection HISTORY OF PRESENT ILLNESS: The patient is a 68-year-old female status post lysis of adhesions and small bowel resection 10/30/2018. POD 4. She denies passing flatus today. She is very hungry. I ordered an abdominal xray to follow her progress. ROS: No reports of nausea and vomiting. No bowel movements. No fevers or chills. No new chest pain. No productive sputum PHYSICAL EXAM: VITAL SIGNS: Reviewed CONSTITUTIONAL: Well developed and in no acute distress. EYES: Conjuctivae without sclera icterus. Extraocular movements grossly intact. HEAD, EARS, NOSE, THROAT: Moist buccal mucosa. Head is atraumatic, normocephalic. Hears conversational speech. No nasal drainage. NECK: Supple. No thyroidomegaly. RESPIRATORY: Non-labored respirations and equal bilateral excursions. CARDIOVASCULAR: Palpable 2+ radial pulses. Regular rate. Regular rhythm. ABDOMEN: Incisions clean dry and intact. Soft. No peritonitis. MUSCULOSKELETAL: No gross deformity of the lower extremities noted. No clubbing. No cyanosis. SKIN: Good skin turgor. Well perfused. NEUROLOGIC: Cranial nerves I through XII grossly intact. No focal or lateralizing signs. PSYCH: Appropriate affect. Alert and oriented to person, place and time. STUDIES: I personally reviewed her AXR with contrast to the colon. No bowel obstruction noted. REPORT: New lung atelectasis left lobe. ASSESSMENT: 1. Small bowel obstruction 2. Atelectasis PLAN: 1. Continue NGT but clamped with start of clear liquids 2. Recommend incentive spirometer for atelectasis. Objective - Vital Signs Vital signs: Vital Signs Temp 98.2 F 11/03/18 07:00 Pulse 83 11/03/18 07:01 Resp 18 11/03/18 07:01 BP 115/75 11/03/18 07:00 Pulse Ox 94 L 11/03/18 07:00 Intake & Output 11/02/18 11/03/18 11/03/18 18:59 06:59 18:59 Intake Total 1307.35 2188.667 Output Total 900 250 Balance 407.35 1938.667 Weight 53.6 kg 53.6 kg Intake: Intake, IV Titration 1307.35 2188.667 Amount 0.9% NaCl with KCl 20 Meq 100 /l 1,000 ml @ 100 mls/hr IV .Q10H [facility] Rx#: [id number] Fat Emulsion 20% 250 ml @ 250 20.833 mls/hr IV DAILY@ 1600 [facility] Rx#:[id number] Lactated Ringers 1,000 ml 700 @ 0 mls/hr IV .[facility] Rx#:[id number] Mvi, Adult No.4 with Vit 420 1132 K 10 ml Trace (Conc-1Ml/ Dose) 1 ml Potassium Chloride 10 meq Magnesium Sulfate gm 0.5 gm Sodium Chloride 2.5MEQ/ml Vial 20 meq In Amino Acid 4.25 %-D10w+Lytes*E* 1,000 ml @ 60 mls/hr IV .Q17H5M [facility] Rx#:[id number] Mvi, Adult No.4 with Vit 480 K 10 ml Trace (Conc-1Ml/ Dose) 1 ml Potassium Chloride 20 meq Magnesium Sulfate gm 1 gm Sodium Chloride 2.5MEQ/ml Vial 10 meq In Amino Acid 4.25 %-D10w+Lytes*E* 1,000 ml @ 60 mls/hr IV .Q17H7M [facility] Rx#:[id number] Piperacillin-Tazobactam 3 200 .375 gm In Sodium Chloride 0.9% 100 ml @ 25 mls/hr IVPB Q8HR [facility] Rx# :[id number] Ropivacaine 400 mg 187.35 26.667 Hydromorphone (Pf) 5 mg In Sodium Chloride 0.9% 170 ml @ Per Protocol EPIDURAL .Q0M PRN Rx#: [id number] Output: Gastric Drainage 300 250 Urine 600 Other: Voiding Method Indwelling Catheter Indwelling Catheter Indwelling Catheter # Voids 1,200 - Labs CBC & Chem 7: 11/01/18 07:41 11/03/18 06:58 Labs: Abnormal Lab Results - Last 24 Hours (Table) 11/02/18 11/02/18 11/02/18 Range/Units 13:12 17:27 20:20 Creatinine (0.52-1.04) mg/dL Glucose (74-99) mg/dL POC Glucose (mg/dL) 221 H 159 H 154 H (75-99) mg/dL Phosphorus (2.5-4.5) mg/dL 08/01/1111/03/18 11/03/18 Range/Units 23:55 05:35 06:58 Creatinine 0.40 L (0.52-1.04) mg/dL Glucose 160 H (74-99) mg/dL POC Glucose (mg/dL) 183 H 174 H (75-99) mg/dL Phosphorus 4.7 H (2.5-4.5) mg/dL 11/03/18 Range/Units 11:02 Creatinine (0.52-1.04) mg/dL Glucose (74-99) mg/dL POC Glucose (mg/dL) 138 H (75-99) mg/dL Phosphorus (2.5-4.5) mg/dL Assessment and Plan (1) Ileus Current Visit: Yes Status: Acute Code(s): K56.7 - ILEUS, UNSPECIFIED SNOMED Code(s): 496984879 (2) Small bowel obstruction Current Visit: Yes Status: Acute Code(s): K56.609 - UNSP INTESTNL OBST, UNSP TO PARTIAL VERSUS COMPLETE OBST SNOMED Code(s): 699535650 (3) Abdominal pain Current Visit: No Status: Acute Code(s): R10.9 - UNSPECIFIED ABDOMINAL PAIN SNOMED Code(s): 08167117
[2018-11-03] MEDS: INSULIN DETEMIR (LEVEMIR) 100 UNIT/ML SYR SQ SCH (12:13)
[2018-11-03] MEDS: FAT EMULSION 20% 250 ML IV SCH (15:33)
--- NOTE | 2018-11-03 16:49 | P.PN ---
Progress Note - Text Progress Note Date: 11/03/18 - Chief Complaint abdominal pain Interval history: This is a pleasant 68-year-old patient of Dr. engel from [place]. Chronic stable medical conditions include coronary artery disease with stent, diabetes type 2, fibromyalgia, GERD, ITP, irritable bowel syndrome, hiatal hernia, chronic herniated disc at L3-L4, restless leg syndrome, gastritis. Patient yesterday started of with nausea followed by multiple episodes of vomiting and diffuse abdominal pain. No fever no chills. Pain did not radiate anywhere. No exacerbating or relieving factors. Presented to the ER. Computed tomography scan of the abdomen showed developing distal small bowel obstruction. Some amount of free fluid in the pelvis was noted. NG tube was placed. Admitted for the same. Seen by Dr. Fang from general surgery. On October 30 patient with abdominal surgery. Had lysis of adhesions and a 4 cm of small bowel was removed.had an epidural Today-laying in bed. NG tube in place. Epidural still on. Has not had a bowel movement or passed any flatus. Getting PPN.started on clear liquids by surgery Review of systems: Was done for constitutional, cardiovascular, GI, pulmonary. relevant finding as above Active Medications Hydrocodone Bitart/Acetaminophen ([place] 10) 1 each PO TID PRN PRN Reason: Pain Last Admin: 10/27/18 18:42 Dose: 1 each Documented by: Albuterol/Ipratropium (Duoneb 0.5 Mg-3 Mg/3 Ml Soln) 3 ml INHALATION RT-QID [facility] Last Admin: 11/03/18 15:37 Dose: 3 ml Documented by: Aspirin (Aspirin) 81 mg PO DAILY [facility] Last Admin: 11/03/18 08:08 Dose: 81 mg Documented by: Atorvastatin Calcium (Lipitor) 80 mg PO HS [facility] Last Admin: 11/02/18 20:45 Dose: 80 mg Documented by: Baclofen (Lioresal) 5 mg PO TID PRN PRN Reason: Spasms Last Admin: 10/27/18 10:18 Dose: 5 mg Documented by: Budesonide/Formoterol Fumarate (Symbicort 160-4.5 Mcg Inhaler) 2 puff INHALATION RT-BID [facility] Last Admin: 11/03/18 08:35 Dose: Not Given Documented by: Hydromorphone HCl (Dilaudid) 1 mg IM Q3HR PRN PRN Reason: Pain Potassium Chloride/Sodium Chloride (Ns-Kcl 20 Meq/L Iv Solution) 1,000 mls @ 100 mls/hr IV .Q10H [facility] Last Admin: 11/03/18 12:13 Dose: 100 mls/hr Documented by: Fat Emulsion Intravenous (Lipids 20%) 250 mls @ 20.833 mls/hr IV DAILY@1600 [facility] Last Admin: 11/03/18 15:33 Dose: 20.833 mls/hr Documented by: Piperacillin Sod/Tazobactam (Sod 3.375 gm/ Sodium Chloride) 100 mls @ 25 mls/hr IVPB Q8HR [facility] Last Admin: 11/03/18 15:36 Dose: 25 mls/hr Documented by: Ropivacaine 400 mg/Hydromorphone HCl 5 mg/ Sodium Chloride 250 mls @ 0 mls/hr EPIDURAL .Q0M PRN; Protocol PRN Reason: Pain Control Last Admin: 11/02/18 22:10 Dose: 10 mls/hr Documented by: Parenteral Vitamin Supplement 10 ml/ Chromium/Copper/Manganese/Seleni/Zn 1 ml/Potassium Chloride 10 meq/Magnesium Sulfate 0.5 gm/Sodium Chloride 20 meq/ Amino Ac/Electrol/Dextrose/Calcium 1,025 mls @ 60 mls/hr IV .Q17H5M [facility] Last Admin: 11/03/18 05:21 Dose: 60 mls/hr Documented by: Insulin Aspart (Novolog) 0 unit SQ Q6HR [facility]; Protocol Last Admin: 11/03/18 11:12 Dose: Not Given Documented by: Insulin Detemir (Levemir) 30 unit SQ DAILY@1200 [facility] Last Admin: 11/03/18 12:13 Dose: Not Given Documented by: Lorazepam (Ativan) 0.5 mg IV Q6HR PRN PRN Reason: Anxiety Last Admin: 10/27/18 14:33 Dose: 0.5 mg Documented by: Melatonin (Melatonin) 3 mg PO HS [facility] Last Admin: 11/02/18 20:45 Dose: 3 mg Documented by: Metoprolol Tartrate (Lopressor) 12.5 mg PO BID [facility] Last Admin: 11/03/18 08:07 Dose: 12.5 mg Documented by: Morphine Sulfate (Morphine Sulfate (Inj)) 4 mg IV Q4HR PRN PRN Reason: Severe Pain Last Admin: 10/30/18 04:45 Dose: 4 mg Documented by: Naloxone HCl (Narcan) 0.2 mg IV Q2M PRN PRN Reason: Opioid Reversal Nitroglycerin (Nitrostat) 0.4 mg SUBLINGUAL Q5M PRN PRN Reason: Chest Pain Ondansetron HCl (Zofran) 4 mg IVP Q6HR PRN PRN Reason: Nausea And Vomiting Pantoprazole Sodium (Protonix) 40 mg PO DAILY [facility] Last Admin: 11/03/18 08:07 Dose: 40 mg Documented by: Ropinirole HCl (Requip) 0.25 mg PO [facility] Last Admin: 11/02/18 20:45 Dose: 0.25 mg Documented by: Tamsulosin HCl (Flomax) 0.4 mg PO DAILY [facility] Last Admin: 11/03/18 08:08 Dose: Not Given Documented by: Trazodone HCl (Desyrel) 50 mg PO [facility] Last Admin: 11/02/18 20:45 Dose: 50 mg Documented by: Trospium (Sanctura) 20 mg PO BID [facility] Last Admin: 11/03/18 08:06 Dose: 20 mg Documented by: Physical examination: VITAL SIGNS: 98.5, 110, 15, 118/70, 97% on room air GENERAL: laying in bed, comfortable, hooked up to epidural EYES: Pupils equal. Conjunctiva normal. HEENT: External appearance of nose and ears normal, oral cavity dry with NG tube in place. NECK: JVD not raised; masses not palpable. HEART: First and second heart sounds are normal; no edema. LUNGS: Respiratory rate normal; decreased breath sounds. ABDOMEN: Binder in place. Dressing over a vertical incision. Tenderness present. Bowel sounds are sluggish PSYCH: [Alert and oriented x3; mood and affect anxious l. MUSCULOSKELETAL: Evidence of OA INVESTIGATIONS, reviewed in the clinical context: potassium 5 creatinine 0.4 Accu-Cheks 138 Admission testing White count 8.9 hemoglobin 14.2 potassium 4.7 bun 28 creatinine 0.75 Accu-Cheks 263 Chest x-ray film showing NG tube in place no infiltrates Computed tomography scan of the abdomen shows developing small bowel obstruction Assessment: -Acute small bowel obstruction,, status post lysis of adhesions and about 4 cm small bowel was removed on 10/30/2018, NG tube remains in place, hooked up to epidural -Coronary artery disease with stent -Diabetes mellitus type 2 -Chronic fibromyalgia -GERD -Chronic ITP -Irritable bowel syndrome -Chronic hiatal hernia -Chronic herniated disc at L3-L4 with pain -Restless leg syndrome -Primary osteoarthritis Plan: feeling better. NG tube remains in place. Hoping epidural can,. that should help bowel movement. Started on clear liquids by surgery. Thank you Dr. Fang
[2018-11-03 18:07] LABS: Glucose,Whole Blood 287 mg/dL (75-99)
[2018-11-03] MEDS: ROPIVACAINE 400 MG, HYDROMORPHONE (PF) 5 MG in SODIUM CHLORIDE 0.9% 170 ML EPIDURAL PRN (18:46)
[2018-11-03] MEDS: traZODone HCL 50 MG TAB PO SCH (21:50)
[2018-11-03] MEDS: ATORVASTATIN 80 MG TAB PO SCH (21:50)
[2018-11-03] MEDS: MELATONIN 3 MG TABLET PO SCH (21:50)
[2018-11-04 00:09] LABS: Glucose,Whole Blood 160 mg/dL (75-99)
[2018-11-04] MEDS ORDERED: KETOROLAC 30 MG/ML 1 ML VIAL IVP STA (00:20)
[2018-11-04] MEDS: INSULIN ASPART (NovoLOG) 100 UNIT/ML VIAL SQ SCH ×4 (00:36→19:38)
[2018-11-04] MEDS: PIPERACILLIN-TAZOBACTAM 3.375 GM in SODIUM CHLORIDE 0.9% 100 ML IVPB SCH ×3 (00:37→17:32)
[2018-11-04] MEDS: 0.9% NACL WITH KCL 20 MEQ/L 1,000 ML IV SCH ×2 (00:37→08:28)
[2018-11-04] MEDS: MVI, ADULT NO.4 WITH VIT K 10 ML, TRACE (CONC-1ML/DOSE) 1 ML, POTASSIUM CHLORIDE 10 MEQ... IV SCH ×6 (01:10)
[2018-11-04 05:43] LABS: Glucose,Whole Blood 167 mg/dL (75-99)
[2018-11-04 08:21] LABS: African American GFR (CKD) >90 (>60 ml/min/1.73 sqM); Anion Gap 8 mmol/L; Blood Urea Nitrogen 13 mg/dL (7-17); Calcium 8.6 mg/dL (8.4-10.2); Carbon Dioxide 26 mmol/L (22-30); Chloride 99 mmol/L (98-107); Glucose 467 mg/dL (74-99); Magnesium 2.3 mg/dL (1.6-2.3); Phosphorus 6.4 mg/dL (2.5-4.5); Sodium 133 mmol/L (137-145)
[2018-11-04] MEDS: IPRATROPIUM-ALBUTEROL 3 ML NEB INHALATION SCH ×4 (08:29→20:11)
[2018-11-04] MEDS: SYMBICORT 160-4.5 MCG INHALER INHALATION SCH ×2 (08:30→20:11)
--- NOTE | 2018-11-04 08:46 | P.PN ---
Progress Note - Text Progress Note Date: 11/04/18 Patient without complaints. Pain controlled. Denies leg weakness. Denies headache. Epidural @ 10 ml/hr Epidural site clean and dry. A/P POD#5 s/p ex lap, JOSEPH, bowel resection - may remove epidural and transition to IV/PO pain medications
[2018-11-04] MEDS: TROSPIUM CHLORIDE 20 MG TABLET PO SCH ×2 (11:36→21:00)
[2018-11-04] MEDS: METOPROLOL TARTRATE 25 MG TAB PO SCH ×2 (11:42→21:00)
[2018-11-04] MEDS: PANTOPRAZOLE 40 MG TABLET PO SCH (11:43)
[2018-11-04] MEDS: ASPIRIN 81 MG PO SCH (11:43)
[2018-11-04] MEDS: TAMSULOSIN 0.4 MG CAP.ER.24H PO SCH (11:43)
[2018-11-04] MEDS: HYDROmorphone 1 MG/ML 1 ML SYRINGE IVP PRN (11:45)
[2018-11-04] MEDS: INSULIN DETEMIR (LEVEMIR) 100 UNIT/ML SYR SQ SCH (12:27)
[2018-11-04 12:33] LABS: Glucose,Whole Blood 228 mg/dL (75-99)
[2018-11-04] MEDS: HYDROcodone/APAP 10-325MG 1 EACH TAB PO PRN (13:12)
--- NOTE | 2018-11-04 14:03 | P.PN ---
Subjective This is a pleasant 68 years old female with past medical history of coronary artery disease, diabetes mellitus, GERD, fibromyalgia, IBS, idiopathic thrombocytopenic purpura, herniated disc, restless leg syndrome. stomach ulcer. Who presents with abdominal pain. Patient is found to have bowel obstruction and she is status post lysis of adhesions and small bowel resection 10/30/2018. Postop day #5. Patient she still complaining from abdominal pain, she has some mild loose bowel movement. She has dysuria at times but not today and is resolved as per patient. Patient denies chest pain or dyspnea. Patient is afebrile with no leukocytosis, however urine culture is growing enterococcus which is sensitive to penicillin. Patient is already on Zosyn. Objective - Vital Signs Vital signs: Vital Signs Temp 98.7 F 11/04/18 07:00 Pulse 92 11/04/18 08:47 Resp 16 11/04/18 07:00 BP 122/72 11/04/18 07:00 Pulse Ox 95 11/04/18 07:00 Intake & Output 11/03/18 11/04/18 11/04/18 18:59 06:59 18:59 Intake Total 206 1025 200 Output Total 1000 Balance -794 1025 200 Weight 53.6 kg 59.5 kg Intake: Intake, IV Titration 206 1025 Amount Mvi, Adult No.4 with Vit 1025 K 10 ml Trace (Conc-1Ml/ Dose) 1 ml Potassium Chloride 10 meq Magnesium Sulfate gm 0.5 gm Sodium Chloride 2.5MEQ/ml Vial 20 meq In Amino Acid 4.25 %-D10w+Lytes*E* 1,000 ml @ 60 mls/hr IV .Q17H5M [facility]PLACED [facility] Rx#:[id number] Ropivacaine 400 mg 206 Hydromorphone (Pf) 5 mg In Sodium Chloride 0.9% 170 ml @ Per Protocol EPIDURAL .Q0M PRN Rx#: [id number] Oral 200 Output: Urine 1000 Other: Voiding Method Indwelling Catheter Indwelling Catheter Indwelling Catheter # Voids 1,200 - Exam GENERAL: The patient is alert and oriented x3, not in any acute distress. Well developed, well nourished. HEENT: Pupils are round and equally reacting to light. EOMI. No scleral icterus. No conjunctival pallor. Normocephalic, atraumatic. No pharyngeal erythema. No thyromegaly. CARDIOVASCULAR: S1 and S2 present. No murmurs, rubs, or gallops. PULMONARY: Chest is clear to auscultation, no wheezing or crackles. -ABDOMEN: Soft, nontender, nondistended, normoactive bowel sounds. No palpable organomegaly. Wound Is healing, dressing is in a Place. Expecting tenderness around the wound, rest of exam is deferred to the surgical primary team. MUSCULOSKELETAL: No joint swelling or deformity. EXTREMITIES: No cyanosis, clubbing, or pedal edema. NEUROLOGICAL: Gross neurological examination did not reveal any focal deficits. SKIN: No rashes. - Labs CBC & Chem 7: 11/01/18 07:41 11/04/18 07:35 Labs: Abnormal Lab Results - Last 24 Hours (Table) 11/03/18 11/04/18 11/04/18 Range/Units 17:56 00:08 05:42 Sodium (137-145) mmol/L Potassium (3.5-5.1) mmol/L Glucose (74-99) mg/dL POC Glucose (mg/dL) 287 H 160 H 167 H (75-99) mg/dL Phosphorus (2.5-4.5) mg/dL 11/04/18 11/04/18 Range/Units 07:35 12:21 Sodium 133 L (137-145) mmol/L Potassium 6.0 H (3.5-5.1) mmol/L Glucose 467 H (74-99) mg/dL POC Glucose (mg/dL) 228 H (75-99) mg/dL Phosphorus 6.4 H (2.5-4.5) mg/dL Assessment and Plan Assessment: SBO, status post lysis of adhesions and small bowel resection Possible urinary tract infection with enterococcus History of coronary artery disease Diabetes mellitus History of GERD Chronic fibromyalgia Retrieval Stro History of ITP Chronic low back pain with herniated disc Restless leg syndrome History of peptic ulcer Plan: This is a pleasant 68 years old female who presents with abdominal obstruction, status post lysis of adhesions and bowel resection. Continue with pain management and DVT prophylaxis as per the surgical primary team. Continue with antibiotics for urinary enterococcus and her abdominal wound. Continue with insulin and monitor sugar. Labs and medication were reviewed.. Continue same treatment. Continue with symptomatic treatment. Resume home medication. Monitor lytes and vitals. DVT and GI prophylaxis. Further recommendations of the clinical course of the patient DVT prophylaxis: Subcutaneous heparin GI Prophylaxis: Protonix Prognosis is guarded
--- NOTE | 2018-11-04 14:13 | P.PN ---
<Cristina Aguillon A - Last Filed: 11/04/18 14:11> Subjective Progress Note Date: 11/04/18 CHIEF COMPLAINT: abdominal pain, vomiting HISTORY OF PRESENT ILLNESS: Patient examined this morning at the bedside. Patient is status post exploratory laparotomy, lysis of adhesions, incidental appendectomy, and small bowel resection. Postop day #5. Patient reports pain is tolerable. Epidural infusing. NG tube has been clamped. She has been tolerating clear liquids. Reports passing flatus this morning. Small bowel movement per nursing. Potassium 5.0 yesterday with slight hemolysis per lab comment. Repeat this morning 6.0. PHYSICAL EXAM: VITAL SIGNS: Reviewed GENERAL: Well-developed in no acute distress. HEENT: NG to LIS. No sclera icterus. Extraocular movements grossly intact. Moist buccal mucosa. Head is atraumatic, normocephalic. Hears conversational speech. No nasal drainage. NECK: Supple without lymphadenopathy. CHEST: Non-labored respirations and equal bilateral excursions. CARDIOVASCULAR: Regular rate with regular rhythm. Palpable 2+ radial pulses. ABDOMEN: Soft. Nondistended. Minimal tenderness. Dressing CDI. Hypoactive bowel sounds. MUSCULOSKELETAL: No clubbing, cyanosis or edema. NEUROLOGIC: No focal or lateralizing signs. Cranial nerves II through XII grossly intact. PSYCH: Appropriate affect. Alert and oriented to person, place and time. SKIN: Well perfused. Good skin turgor. ASSESSMENT: 1. Acute small bowel obstruction, s/p exploratory laparotomy, lysis of adhesions, incidental appendectomy, and small bowel resection 2. Hypokalemia, resolved 3. Hypomagnesemia, resolved PLAN: 1. Discontinue NG tube 2. Advance diet to full liquids. Wean off TPN. 3. Incentive spirometry 4. Activity as tolerated. Patient encouraged to be out of bed and in the chair and ambulating in the hallway. Will consult PT/OT for evaluation 5. Discontinue epidural. Dilaudid and [place] PRN 6. Discontinue boudreaux catheter 7. Discontinue K from IV fluids 8. Repeat potassium STAT to verify hyperkalemia vs. hemolyzed specimen Nurse practitioner note has been reviewed by physician. Signing provider agrees with the documented findings, assessment, and plan of care. Objective - Vital Signs Vital signs: Vital Signs Temp 98.7 F 11/04/18 07:00 Pulse 92 11/04/18 08:47 Resp 16 11/04/18 07:00 BP 122/72 11/04/18 07:00 Pulse Ox 95 11/04/18 07:00 Intake & Output 11/03/18 11/04/18 11/04/18 18:59 06:59 18:59 Intake Total 206 1025 200 Output Total 1000 Balance -794 1025 200 Weight 53.6 kg 59.5 kg Intake: Intake, IV Titration 206 1025 Amount Mvi, Adult No.4 with Vit 1025 K 10 ml Trace (Conc-1Ml/ Dose) 1 ml Potassium Chloride 10 meq Magnesium Sulfate gm 0.5 gm Sodium Chloride 2.5MEQ/ml Vial 20 meq In Amino Acid 4.25 %-D10w+Lytes*E* 1,000 ml @ 60 mls/hr IV .Q17H5M [facility] Rx#:[id number] Ropivacaine 400 mg 206 Hydromorphone (Pf) 5 mg In Sodium Chloride 0.9% 170 ml @ Per Protocol EPIDURAL .Q0M [facility] Rx#: [id number] Oral 200 Output: Urine 1000 Other: Voiding Method Indwelling Catheter Indwelling Catheter Indwelling Catheter # Voids 1,200 - Labs CBC & Chem 7: 11/01/18 07:41 11/04/18 07:35 Labs: Abnormal Lab Results - Last 24 Hours (Table) 11/03/18 11/04/18 11/04/18 Range/Units 17:56 00:08 05:42 Sodium (137-145) mmol/L Potassium (3.5-5.1) mmol/L Glucose (74-99) mg/dL POC Glucose (mg/dL) 287 H 160 H 167 H (75-99) mg/dL Phosphorus (2.5-4.5) mg/dL 11/04/18 11/04/18 Range/Units 07:35 12:21 Sodium 133 L (137-145) mmol/L Potassium 6.0 H (3.5-5.1) mmol/L Glucose 467 H (74-99) mg/dL POC Glucose (mg/dL) 228 H (75-99) mg/dL Phosphorus 6.4 H (2.5-4.5) mg/dL Assessment and Plan (1) Ileus Current Visit: Yes Status: Acute Code(s): K56.7 - ILEUS, UNSPECIFIED SNOMED Code(s): 239464389 (2) Small bowel obstruction Current Visit: Yes Status: Acute Code(s): K56.609 - UNSP INTESTNL OBST, UNSP TO PARTIAL VERSUS COMPLETE OBST SNOMED Code(s): 655664626 (3) Abdominal pain Current Visit: No Status: Acute Code(s): R10.9 - UNSPECIFIED ABDOMINAL PAIN SNOMED Code(s): 53854858 <Najma Collins N - Last Filed: 11/05/18 01:19> Objective - Vital Signs Vital signs: Vital Signs Temp 98.3 F 11/04/18 19:30 Pulse 84 11/04/18 20:25 Resp 19 11/04/18 19:30 BP 162/74 11/04/18 19:30 Pulse Ox 96 11/04/18 19:30 Intake & Output 11/04/18 11/04/18 11/05/18 06:59 18:59 06:59 Intake Total 1025 200 125 Output Total 300 Balance 1025 200 -175 Weight 59.5 kg Intake: Intake, IV Titration 1025 Amount Mvi, Adult No.4 with Vit 1025 K 10 ml Trace (Conc-1Ml/ Dose) 1 ml Potassium Chloride 10 meq Magnesium Sulfate gm 0.5 gm Sodium Chloride 2.5MEQ/ml Vial 20 meq In Amino Acid 4.25 %-D10w+Lytes*E* 1,000 ml @ 60 mls/hr IV .Q17H5M [facility] Rx#:[id number] Oral 200 125 Output: Urine 300 Other: Voiding Method Indwelling Catheter Indwelling Catheter Toilet # Bowel Movements 1 - Labs CBC & Chem 7: 11/01/18 07:41 11/04/18 14:33 Labs: Abnormal Lab Results - Last 24 Hours (Table) 11/04/18 11/04/18 11/04/18 Range/Units 05:42 07:35 12:21 Sodium 133 L (137-145) mmol/L Potassium 6.0 H (3.5-5.1) mmol/L Glucose 467 H (74-99) mg/dL POC Glucose (mg/dL) 167 H 228 H (75-99) mg/dL Phosphorus 6.4 H (2.5-4.5) mg/dL 11/04/18 11/04/18 11/05/18 Range/Units 18:46 19:12 00:21 Sodium (137-145) mmol/L Potassium (3.5-5.1) mmol/L Glucose (74-99) mg/dL POC Glucose (mg/dL) 59 L 74 L 63 L (75-99) mg/dL Phosphorus (2.5-4.5) mg/dL Assessment and Plan (1) Ileus Current Visit: Yes Status: Acute Code(s): K56.7 - ILEUS, UNSPECIFIED SNOMED Code(s): 757587715 (2) Small bowel obstruction Current Visit: Yes Status: Acute Code(s): K56.609 - UNSP INTESTNL OBST, UNSP TO PARTIAL VERSUS COMPLETE OBST SNOMED Code(s): 195401935 (3) Abdominal pain Current Visit: No Status: Acute Code(s): R10.9 - UNSPECIFIED ABDOMINAL PAIN SNOMED Code(s): 98629205
[2018-11-04] MEDS: SODIUM CHLORIDE 0.9% 1,000 ML IV SCH (14:29)
[2018-11-04] MEDS: LORazepam 2 MG/ML INJ IV PRN (14:30)
[2018-11-04] MEDS: FAT EMULSION 20% 250 ML IV SCH (17:09)
[2018-11-04] MEDS: HEPARIN SODIUM,PORCINE 5,000 UNIT/ML 1 ML VIAL SQ SCH (17:33)
[2018-11-04] MEDS ORDERED: [UNRECOGNIZED DRUG - REMARK] IV SCH ×11 (18:00)
[2018-11-04 18:49] LABS: Glucose,Whole Blood 59 mg/dL (75-99)
[2018-11-04 19:14] LABS: Glucose,Whole Blood 74 mg/dL (75-99)
[2018-11-04] MEDS: ATORVASTATIN 80 MG TAB PO SCH (21:00)
[2018-11-04] MEDS: traZODone HCL 50 MG TAB PO SCH (21:02)
[2018-11-04] MEDS: MELATONIN 3 MG TABLET PO SCH (21:02)
[2018-11-04 21:10] LABS: Glucose,Whole Blood 82 mg/dL (75-99)
[2018-11-05 00:24] LABS: Glucose,Whole Blood 63 mg/dL (75-99)
[2018-11-05] MEDS: INSULIN ASPART (NovoLOG) 100 UNIT/ML VIAL SQ SCH ×4 (00:24→17:36)
[2018-11-05] MEDS: PIPERACILLIN-TAZOBACTAM 3.375 GM in SODIUM CHLORIDE 0.9% 100 ML IVPB SCH ×3 (00:24→17:37)
[2018-11-05] MEDS: HEPARIN SODIUM,PORCINE 5,000 UNIT/ML 1 ML VIAL SQ SCH ×3 (00:26→15:53)
[2018-11-05 00:45] LABS: Glucose,Whole Blood 76 mg/dL (75-99)
[2018-11-05 01:47] LABS: Glucose,Whole Blood 102 mg/dL (75-99)
[2018-11-05 04:43] LABS: Glucose,Whole Blood 121 mg/dL (75-99)
[2018-11-05] MEDS: SODIUM CHLORIDE 0.9% 1,000 ML IV SCH ×2 (04:59→15:58)
[2018-11-05] MEDS: ONDANSETRON 4 MG/2 ML VIAL IVP PRN (06:20)
[2018-11-05 06:56] LABS: Glucose,Whole Blood 128 mg/dL (75-99)
[2018-11-05 07:33] LABS: African American GFR (CKD) >90 (>60 ml/min/1.73 sqM); Anion Gap 9 mmol/L; Blood Urea Nitrogen 8 mg/dL (7-17); Calcium 9.4 mg/dL (8.4-10.2); Carbon Dioxide 25 mmol/L (22-30); Chloride 106 mmol/L (98-107); Glucose 142 mg/dL (74-99); Potassium 4.2 mmol/L (3.5-5.1); Sodium 140 mmol/L (137-145)
[2018-11-05] MEDS: IPRATROPIUM-ALBUTEROL 3 ML NEB INHALATION SCH ×4 (08:21→18:38)
[2018-11-05] MEDS: SYMBICORT 160-4.5 MCG INHALER INHALATION SCH ×2 (08:21→18:38)
[2018-11-05] MEDS ORDERED: METOCLOPRAMIDE 5 MG/ML 2 ML VIAL IVP STA (08:58)
[2018-11-05] MEDS: PANTOPRAZOLE 40 MG TABLET PO SCH (09:57)
[2018-11-05] MEDS: METOPROLOL TARTRATE 25 MG TAB PO SCH ×2 (09:57→20:57)
[2018-11-05] MEDS: TAMSULOSIN 0.4 MG CAP.ER.24H PO SCH (09:57)
[2018-11-05] MEDS: TROSPIUM CHLORIDE 20 MG TABLET PO SCH ×2 (09:57→20:56)
[2018-11-05] MEDS: ASPIRIN 81 MG PO SCH (09:59)
[2018-11-05 11:56] LABS: Glucose,Whole Blood 121 mg/dL (75-99)
[2018-11-05] MEDS ORDERED: METOCLOPRAMIDE 5 MG/ML 2 ML VIAL IVP SCH (12:00)
[2018-11-05] MEDS: INSULIN DETEMIR (LEVEMIR) 100 UNIT/ML SYR SQ SCH (12:40)
--- NOTE | 2018-11-05 12:47 | P.PN ---
<Cristina Aguillon Radha - Last Filed: 11/05/18 12:42> Subjective Progress Note Date: 11/05/18 CHIEF COMPLAINT: abdominal pain, vomiting HISTORY OF PRESENT ILLNESS: Patient examined this morning at the bedside. Patient is status post exploratory laparotomy, lysis of adhesions, incidental appendectomy, and small bowel resection. Postop day #6. Patient reports feeling unwell this morning. Reports nausea. Was tolerating liquid diet last night. Has not attempted breakfast this morning. Liquid bowel movement this morning. Denies passing flatus since BM. potassium 4.2. Magnesium 1.8. PHYSICAL EXAM: VITAL SIGNS: Reviewed GENERAL: Well-developed in no acute distress. HEENT: NG to LIS. No sclera icterus. Extraocular movements grossly intact. Moist buccal mucosa. Head is atraumatic, normocephalic. Hears conversational speech. No nasal drainage. NECK: Supple without lymphadenopathy. CHEST: Non-labored respirations and equal bilateral excursions. CARDIOVASCULAR: Regular rate with regular rhythm. Palpable 2+ radial pulses. ABDOMEN: Soft. Mildly distended. Minimal tenderness. Dressing CDI. Hypoactive bowel sounds. MUSCULOSKELETAL: No clubbing, cyanosis or edema. NEUROLOGIC: No focal or lateralizing signs. Cranial nerves II through XII sergio sly intact. PSYCH: Appropriate affect. Alert and oriented to person, place and time. SKIN: Well perfused. Good skin turgor. ASSESSMENT: 1. Acute small bowel obstruction, s/p exploratory laparotomy, lysis of adhesions, incidental appendectomy, and small bowel resection 2. Hypokalemia, resolved 3. Hypomagnesemia PLAN: 1. Reglan 10mg IV x 1 2. Continue Zofran PRN 3. Pain control 4. Downgrade diet to clear liquids until nausea improved 5. Incentive spirometry 6. Activity as tolerated. Patient encouraged to be out of bed and in the chair and ambulating in the hallway. 7. 2 gram magnesium IVPB Nurse practitioner note has been reviewed by physician. Signing provider agrees with the documented findings, assessment, and plan of care. Objective - Vital Signs Vital signs: Vital Signs Temp 99.1 F 11/05/18 07:00 Pulse 105 H 11/05/18 08:25 Resp 15 11/05/18 08:25 BP 145/85 11/05/18 07:00 Pulse Ox 92 L 11/05/18 07:00 Intake & Output 11/04/18 11/05/18 11/05/18 18:59 06:59 18:59 Intake Total 200 1850 Output Total 300 Balance 200 1550 Weight 55 kg Intake: Intake, IV Titration 675 Amount Sodium Chloride 0.9% 1, 675 000 ml @ 75 mls/hr IV . [id number] [facility] Rx#:[id number] Oral 200 1175 Output: Urine 300 Other: Voiding Method Indwelling Catheter Toilet Toilet Diaper # Voids 3 # Bowel Movements 1 - Labs CBC & Chem 7: 11/01/18 07:41 11/05/18 06:42 Labs: Abnormal Lab Results - Last 24 Hours (Table) 11/04/18 11/04/18 11/05/18 Range/Units 18:46 19:12 00:21 Creatinine (0.52-1.04) mg/dL Glucose (74-99) mg/dL POC Glucose (mg/dL) 59 L 74 L 63 L (75-99) mg/dL 11/05/18 11/05/18 11/05/18 Range/Units 01:45 04:42 06:42 Creatinine 0.47 L (0.52-1.04) mg/dL Glucose 142 H (74-99) mg/dL POC Glucose (mg/dL) 102 H 121 H (75-99) mg/dL 11/05/18 11/05/18 Range/Units 06:55 11:54 Creatinine (0.52-1.04) mg/dL Glucose (74-99) mg/dL POC Glucose (mg/dL) 128 H 121 H (75-99) mg/dL Assessment and Plan (1) Ileus Current Visit: Yes Status: Acute Code(s): K56.7 - ILEUS, UNSPECIFIED SNOMED Code(s): 596942369 (2) Small bowel obstruction Current Visit: Yes Status: Acute Code(s): K56.609 - UNSP INTESTNL OBST, UNSP TO PARTIAL VERSUS COMPLETE OBST SNOMED Code(s): 325188604 (3) Abdominal pain Current Visit: No Status: Acute Code(s): R10.9 - UNSPECIFIED ABDOMINAL PAIN SNOMED Code(s): 93583117 <Najma Collins N - Last Filed: 08/15/19 10:30> Subjective Agree with above. Diet as tolerated. Objective - Vital Signs Vital signs: Vital Signs Temp 98.1 F 11/07/18 07:00 Pulse 95 11/07/18 08:35 Resp 17 11/07/18 07:00 BP 157/74 11/07/18 07:00 Pulse Ox 95 11/07/18 07:00 Intake & Output 11/06/18 11/07/18 11/07/18 18:59 06:59 18:59 Intake Total 70 Balance 70 Weight 57.5 kg 54 kg Intake: Oral 70 Other: Voiding Method Toilet Toilet Toilet Bedside Commode Bedside Commode # Voids 1 - Labs CBC & Chem 7: 11/06/18 13:22 11/06/18 13:22 Labs: Abnormal Lab Results - Last 24 Hours (Table) 11/06/18 11/06/18 11/06/18 Range/Units 11:08 13:22 16:55 Chloride 108 H (98-107) mmol/L Carbon Dioxide 21 L (22-30) mmol/L Creatinine 0.51 L (0.52-1.04) mg/dL Glucose 199 H (74-99) mg/dL POC Glucose (mg/dL) 135 H 173 H (75-99) mg/dL Alkaline Phosphatase 216 H (38-126) U/L Total Protein 5.7 L (6.3-8.2) g/dL Albumin 2.9 L (3.5-5.0) g/dL 11/06/18 11/07/18 Range/Units 23:54 05:41 Chloride (98-107) mmol/L Carbon Dioxide (22-30) mmol/L Creatinine (0.52-1.04) mg/dL Glucose (74-99) mg/dL POC Glucose (mg/dL) 115 H 105 H (75-99) mg/dL Alkaline Phosphatase (38-126) U/L Total Protein (6.3-8.2) g/dL Albumin (3.5-5.0) g/dL Assessment and Plan (1) Ileus Current Visit: Yes Status: Acute Code(s): K56.7 - ILEUS, UNSPECIFIED SNOMED Code(s): 650491488 (2) Small bowel obstruction Current Visit: Yes Status: Acute Code(s): K56.609 - UNSP INTESTNL OBST, UNSP TO PARTIAL VERSUS COMPLETE OBST SNOMED Code(s): 822378989 (3) Abdominal pain Current Visit: No Status: Acute Code(s): R10.9 - UNSPECIFIED ABDOMINAL PAIN SNOMED Code(s): 52729977
[2018-11-05] MEDS: MAGNESIUM SULFATE-D5W PMX 1 GM in DEXTROSE/WATER 1 100ML.BAG IVPB SCH ×2 (13:13→15:53)
--- NOTE | 2018-11-05 13:30 | P.PN ---
Subjective This is a pleasant 68 years old female with past medical history of coronary artery disease, diabetes mellitus, GERD, fibromyalgia, IBS, idiopathic thrombocytopenic purpura, herniated disc, restless leg syndrome. stomach ulcer. Who presents with abdominal pain. Patient is found to have bowel obstruction and she is status post lysis of adhesions and small bowel resection 10/30/2018. Postop day #5. Patient she still complaining from abdominal pain, she has some mild loose bowel movement. She has dysuria at times but not today and is resolved as per patient. Patient denies chest pain or dyspnea. Patient is afebrile with no leukocytosis, however urine culture is growing enterococcus which is sensitive to penicillin. Patient is already on Zosyn. 11/05/2018 Patient looks better today this abdominal pain and distress. She is on a clear liquid diet with no nausea vomiting, however she vomited once last night but not anymore. abdominal pain is expected and is improving gradually. She has one bowel movement last night either. TPN is being tapered off. Pino catheter has been discontinued. Patient is hemodynamically stable. She is mildly tachycardic. Temperature is 99.1, mostly reactive to surgery. Creatinine 0.4. A sugar controlled Objective - Vital Signs Vital signs: Vital Signs Temp 99.1 F 11/05/18 07:00 Pulse 105 H 11/05/18 08:25 Resp 15 11/05/18 08:25 BP 145/85 11/05/18 07:00 Pulse Ox 92 L 11/05/18 07:00 Intake & Output 11/04/18 11/05/18 11/05/18 18:59 06:59 18:59 Intake Total 200 1850 Output Total 300 Balance 200 1550 Weight 55 kg Intake: Intake, IV Titration 675 Amount Sodium Chloride 0.9% 1, 675 000 ml @ 75 mls/hr IV . [id number] [facility] Rx#:[id number] Oral 200 1175 Output: Urine 300 Other: Voiding Method Indwelling Catheter Toilet Toilet Diaper # Voids 3 # Bowel Movements 1 - Exam GENERAL: The patient is alert and oriented x3, not in any acute distress. Well developed, well nourished. HEENT: Pupils are round and equally reacting to light. EOMI. No scleral icterus. No conjunctival pallor. Normocephalic, atraumatic. No pharyngeal erythema. No thyromegaly. CARDIOVASCULAR: S1 and S2 present. No murmurs, rubs, or gallops. PULMONARY: Chest is clear to auscultation, no wheezing or crackles. -ABDOMEN: Soft, nontender, nondistended, normoactive bowel sounds. No palpable organomegaly. Wound Is healing, dressing is in a Place. Expecting tenderness around the wound, rest of exam is deferred to the surgical primary team. MUSCULOSKELETAL: No joint swelling or deformity. EXTREMITIES: No cyanosis, clubbing, or pedal edema. NEUROLOGICAL: Gross neurological examination did not reveal any focal deficits. SKIN: No rashes. - Labs CBC & Chem 7: 11/01/18 07:41 11/05/18 06:42 Labs: Abnormal Lab Results - Last 24 Hours (Table) 11/04/18 11/04/18 11/05/18 Range/Units 18:46 19:12 00:21 Creatinine (0.52-1.04) mg/dL Glucose (74-99) mg/dL POC Glucose (mg/dL) 59 L 74 L 63 L (75-99) mg/dL 11/05/18 11/05/18 11/05/18 Range/Units 01:45 04:42 06:42 Creatinine 0.47 L (0.52-1.04) mg/dL Glucose 142 H (74-99) mg/dL POC Glucose (mg/dL) 102 H 121 H (75-99) mg/dL 11/05/18 11/05/18 Range/Units 06:55 11:54 Creatinine (0.52-1.04) mg/dL Glucose (74-99) mg/dL POC Glucose (mg/dL) 128 H 121 H (75-99) mg/dL Assessment and Plan Assessment: SBO, status post lysis of adhesions and small bowel resection Possible urinary tract infection with enterococcus History of coronary artery disease Diabetes mellitus History of GERD Chronic fibromyalgia 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 Continue with pain management and DVT prophylaxis as per the surgical primary team. Continue with antibiotics for urinary enterococcus and her abdominal wound. Continue with insulin and monitor sugar. Labs and medication were reviewed.. Continue same treatment. Continue with symptomatic treatment. Resume home medication. Yesi tor lytes and vitals. DVT and GI prophylaxis. Further recommendations of the clinical course of the patient DVT prophylaxis: Subcutaneous heparin GI Prophylaxis: Protonix Prognosis is guarded
[2018-11-05 17:03] LABS: Glucose,Whole Blood 185 mg/dL (75-99)
[2018-11-05 20:49] LABS: Glucose,Whole Blood 132 mg/dL (75-99)
[2018-11-05] MEDS: traZODone HCL 50 MG TAB PO SCH (20:57)
[2018-11-05] MEDS: ATORVASTATIN 80 MG TAB PO SCH (20:57)
[2018-11-05] MEDS: MELATONIN 3 MG TABLET PO SCH (20:58)
[2018-11-05] MEDS: HYDROcodone/APAP 10-325MG 1 EACH TAB PO PRN (21:41)
[2018-11-05] MEDS: BACLOFEN 10 MG TAB PO PRN (21:42)
[2018-11-06] MEDS: INSULIN ASPART (NovoLOG) 100 UNIT/ML VIAL SQ SCH ×4 (00:11→17:15)
[2018-11-06] MEDS: HYDROmorphone 1 MG/ML 1 ML SYRINGE IVP PRN ×4 (00:21→21:20)
[2018-11-06] MEDS: HEPARIN SODIUM,PORCINE 5,000 UNIT/ML 1 ML VIAL SQ SCH ×3 (00:22→16:49)
[2018-11-06] MEDS: PIPERACILLIN-TAZOBACTAM 3.375 GM in SODIUM CHLORIDE 0.9% 100 ML IVPB SCH ×3 (00:22→16:33)
[2018-11-06 03:53] LABS: Appearance,Urine Clear (Clear); Bilirubin,Urine Negative (Negative); Blood,Urine Trace (Negative); Budding Yeast,Urine Few /hpf; Color,Urine Yellow; Glucose,Urine (UA) Trace (Negative); Ketones,Urine 1+ (Negative); Leukocyte Esterase,Urine Negative (Negative); Mucus,Urine Rare /hpf; Nitrite,Urine Negative (Negative); PH, Urine 5.5 (5.0-8.0); Protein,Urine 1+ (Negative); RBC,Urine 3 /hpf (0-5); Specific Gravity,Urine 1.022 (1.001-1.035); Squamous Epithelial Cell,Urine 1 /hpf (0-4); Urobilinogen,Urine <2.0 mg/dL (<2.0); WBC,Urine 3 /hpf (0-5)
[2018-11-06] MEDS: SODIUM CHLORIDE 0.9% 1,000 ML IV SCH ×2 (05:31→18:40)
[2018-11-06] MEDS: METOPROLOL TARTRATE 25 MG TAB PO SCH ×2 (07:10→20:19)
[2018-11-06] MEDS: PANTOPRAZOLE 40 MG TABLET PO SCH (07:11)
[2018-11-06] MEDS: TROSPIUM CHLORIDE 20 MG TABLET PO SCH ×2 (07:11→20:19)
[2018-11-06] MEDS: TAMSULOSIN 0.4 MG CAP.ER.24H PO SCH (07:11)
[2018-11-06] MEDS: ASPIRIN 81 MG PO SCH (07:11)
[2018-11-06 07:19] LABS: Glucose,Whole Blood 112 mg/dL (75-99)
[2018-11-06] MEDS: SYMBICORT 160-4.5 MCG INHALER INHALATION SCH ×2 (08:01→19:56)
[2018-11-06] MEDS: IPRATROPIUM-ALBUTEROL 3 ML NEB INHALATION SCH ×4 (08:01→19:56)
[2018-11-06] MEDS: METOCLOPRAMIDE 5 MG/ML 2 ML VIAL IVP SCH ×3 (08:38→20:21)
[2018-11-06] MEDS: HYDROcodone/APAP 10-325MG 1 EACH TAB PO PRN ×2 (09:48→18:39)
[2018-11-06] MEDS: BACLOFEN 10 MG TAB PO PRN (09:51)
[2018-11-06 11:10] LABS: Glucose,Whole Blood 135 mg/dL (75-99)
[2018-11-06] MEDS: INSULIN DETEMIR (LEVEMIR) 100 UNIT/ML SYR SQ SCH (11:10)
--- NOTE | 2018-11-06 12:35 | P.PN ---
<Cristina Aguillon A - Last Filed: 11/06/18 12:31> Subjective Progress Note Date: 11/06/18 CHIEF COMPLAINT: abdominal pain, vomiting HISTORY OF PRESENT ILLNESS: Patient examined this morning at the bedside. Patient is status post exploratory laparotomy, lysis of adhesions, incidental appendectomy, and small bowel resection. Postop day #7. Patient reports nausea has resolved. However, she reports increased abdominal bloating and pain. She reports multiple BM this morning. PHYSICAL EXAM: VITAL SIGNS: Reviewed GENERAL: Well-developed in no acute distress. HEENT: No sclera icterus. Extraocular movements grossly intact. Moist buccal mucosa. Head is atraumatic, normocephalic. Hears conversational speech. No nasal drainage. NECK: Supple without lymphadenopathy. CHEST: Non-labored respirations and equal bilateral excursions. CARDIOVASCULAR: Regular rate with regular rhythm. Palpable 2+ radial pulses. ABDOMEN: Soft. Distended. Minimal tenderness. Dressing CDI. Hypoactive bowel sounds. MUSCULOSKELETAL: No clubbing, cyanosis or edema. NEUROLOGIC: No focal or lateralizing signs. Cranial nerves II through XII grossly intact. PSYCH: Appropriate affect. Alert and oriented to person, place and time. SKIN: Well perfused. Good skin turgor. ASSESSMENT: 1. Acute small bowel obstruction, s/p exploratory laparotomy, lysis of adhesions, incidental appendectomy, and small bowel resection 2. Hypokalemia, resolved 3. Hypomagnesemia PLAN: Continue clear liquid diet due to increased abdominal discomfort and bloating. Pain control. Continue anti-emetics PRN. Incentive spirometry. Activity as tolerated. Patient encouraged to be OOB today and ambulating in the hallways. Check labs this AM Nurse practitioner note has been reviewed by physician. Signing provider agrees with the documented findings, assessment, and plan of care. Objective - Vital Signs Vital signs: Vital Signs Temp 98.4 F 11/06/18 07:00 Pulse 90 11/06/18 11:27 Resp 16 11/06/18 07:00 BP 119/63 11/06/18 07:00 Pulse Ox 95 11/06/18 08:01 Intake & Output 11/05/18 11/06/18 11/06/18 18:59 06:59 18:59 Output Total 400 Balance -400 Weight 57.5 kg Output: Urine 400 Straight 200 Other: Voiding Method Toilet Toilet Toilet Diaper Diaper Bedside Commode # Voids 1 - Labs CBC & Chem 7: 11/01/18 07:41 11/05/18 06:42 Labs: Abnormal Lab Results - Last 24 Hours (Table) 11/05/18 11/05/18 11/06/18 Range/Units 17:02 20:38 03:24 POC Glucose (mg/dL) 185 H 132 H (75-99) mg/dL Urine Protein 1+ H (Negative) Urine Glucose (UA) Trace H (Negative) Urine Ketones 1+ H (Negative) Urine Blood Trace H (Negative) Urine Mucus Rare H (None) /hpf Urine Yeast (Budding) Few H (None) /hpf 11/06/18 11/06/18 Range/Units 07:17 11:08 POC Glucose (mg/dL) 112 H 135 H (75-99) mg/dL Urine Protein (Negative) Urine Glucose (UA) (Negative) Urine Ketones (Negative) Urine Blood (Negative) Urine Mucus (None) /hpf Urine Yeast (Budding) (None) /hpf Assessment and Plan (1) Ileus Current Visit: Yes Status: Acute Code(s): K56.7 - ILEUS, UNSPECIFIED SNOMED Code(s): 110915642 (2) Small bowel obstruction Current Visit: Yes Status: Acute Code(s): K56.609 - UNSP INTESTNL OBST, UNSP TO PARTIAL VERSUS COMPLETE OBST SNOMED Code(s): 138825721 (3) Abdominal pain Current Visit: No Status: Acute Code(s): R10.9 - UNSPECIFIED ABDOMINAL PAIN SNOMED Code(s): 83633982 <Najma Collins N - Last Filed: 11/07/18 19:39> Subjective Patient is ambulating and now wants more diet. Will cautiously advance. Continue anti-emetics. Objective - Vital Signs Vital signs: Vital Signs Temp 98.1 F 11/07/18 14:15 Pulse 85 11/07/18 14:15 Resp 16 11/07/18 14:15 BP 142/67 11/07/18 14:15 Pulse Ox 97 11/07/18 14:15 Intake & Output 11/07/18 11/07/18 11/08/18 06:59 18:59 06:59 Intake Total 270 Balance 270 Weight 54 kg Intake: Oral 270 Other: Voiding Method Toilet Toilet Bedside Commode # Voids 1 - Labs CBC & Chem 7: 11/06/18 13:22 11/06/18 13:22 Labs: Abnormal Lab Results - Last 24 Hours (Table) 11/06/18 11/07/18 11/07/18 Range/Units 23:54 05:41 11:25 POC Glucose (mg/dL) 115 H 105 H 121 H (75-99) mg/dL 11/07/18 Range/Units 17:31 POC Glucose (mg/dL) 153 H (75-99) mg/dL Assessment and Plan (1) Ileus Current Visit: Yes Status: Acute Code(s): K56.7 - ILEUS, UNSPECIFIED SNOMED Code(s): 256845407 (2) Small bowel obstruction Current Visit: Yes Status: Acute Code(s): K56.609 - UNSP INTESTNL OBST, UNSP TO PARTIAL VERSUS COMPLETE OBST SNOMED Code(s): 002690856 (3) Abdominal pain Current Visit: No Status: Acute Code(s): R10.9 - UNSPECIFIED ABDOMINAL PAIN SNOMED Code(s): 10688478
--- NOTE | 2018-11-06 13:30 | P.PN ---
Subjective This is a pleasant 68 years old female with past medical history of coronary artery disease, diabetes mellitus, GERD, fibromyalgia, IBS, idiopathic thrombocytopenic purpura, herniated disc, restless leg syndrome. stomach ulcer. Who presents with abdominal pain. Patient is found to have bowel obstruction and she is status post lysis of adhesions and small bowel resection 10/30/2018. Postop day #5. Patient she still complaining from abdominal pain, she has some mild loose bowel movement. She has dysuria at times but not today and is resolved as per patient. Patient denies chest pain or dyspnea. Patient is afebrile with no leukocytosis, however urine culture is growing enterococcus which is sensitive to penicillin. Patient is already on Zosyn. 11/05/2018 Patient looks better today this abdominal pain and distress. She is on a clear liquid diet with no nausea vomiting, however she vomited once last night but not anymore. abdominal pain is expected and is improving gradually. She has one bowel movement last night either. TPN is being tapered off. Pino catheter has been discontinued. Patient is hemodynamically stable. She is mildly tachycardic. Temperature is 99.1, mostly reactive to surgery. Creatinine 0.4. A sugar controlled 11/06/2018 Patient is improving as today she has less abdominal pain. No nausea vomiting. She has 2 bouts of loose bowel movement yesterday. Her TPN was stopped on IV fluids lowered to 80 mL/h as she is tolerating her liquid diet and her abdominal pain is improving gradually. Repeat urine analysis show improvement. And her sugar controlled. Patient remains on Zosyn for her possible intra-abdominal infection and enterococcus in the urine. Patient is hemodynamically stable. Objective - Vital Signs Vital signs: Vital Signs Temp 98.4 F 11/06/18 07:00 Pulse 90 11/06/18 11:27 Resp 16 11/06/18 07:00 BP 119/63 11/06/18 07:00 Pulse Ox 95 11/06/18 08:01 Intake & Output 11/05/18 11/06/18 11/06/18 18:59 06:59 18:59 Output Total 400 Balance -400 Weight 57.5 kg Output: Urine 400 Straight 200 Other: Voiding Method Toilet Toilet Toilet Diaper Diaper Bedside Commode # Voids 1 - Exam GENERAL: The patient is alert and oriented x3, not in any acute distress. Well developed, well nourished. HEENT: Pupils are round and equally reacting to light. EOMI. No scleral icterus. No conjunctival pallor. Normocephalic, atraumatic. No pharyngeal erythema. No thyromegaly. CARDIOVASCULAR: S1 and S2 present. No murmurs, rubs, or gallops. PULMONARY: Chest is clear to auscultation, no wheezing or crackles. -ABDOMEN: Soft, nontender, nondistended, normoactive bowel sounds. No palpable organomegaly. Wound Is healing, dressing is in a Place. Expecting tenderness around the wound, rest of exam is deferred to the surgical primary team. MUSCULOSKELETAL: No joint swelling or deformity. EXTREMITIES: No cyanosis, clubbing, or pedal edema. NEUROLOGICAL: Gross neurological examination did not reveal any focal deficits. SKIN: No rashes. - Labs CBC & Chem 7: 11/01/18 07:41 11/05/18 06:42 Labs: Abnormal Lab Results - Last 24 Hours (Table) 11/05/18 11/05/18 11/06/18 Range/Units 17:02 20:38 03:24 POC Glucose (mg/dL) 185 H 132 H (75-99) mg/dL Urine Protein 1+ H (Negative) Urine Glucose (UA) Trace H (Negative) Urine Ketones 1+ H (Negative) Urine Blood Trace H (Negative) Urine Mucus Rare H (None) /hpf Urine Yeast (Budding) Few H (None) /hpf 11/06/18 11/06/18 Range/Units 07:17 11:08 POC Glucose (mg/dL) 112 H 135 H (75-99) mg/dL Urine Protein (Negative) Urine Glucose (UA) (Negative) Urine Ketones (Negative) Urine Blood (Negative) Urine Mucus (None) /hpf Urine Yeast (Budding) (None) /hpf Assessment and Plan Assessment: SBO, status post lysis of adhesions and small bowel resection Possible urinary tract infection with enterococcus History of coronary artery disease Diabetes mellitus History of GERD Chronic fibromyalgia 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 Continue with pain management and DVT prophylaxis as per the surgical primary team. Continue with antibiotics for urinary enterococcus and her abdominal wound. Continue with insulin and monitor sugar. Labs and medication were reviewed.. Continue same treatment. Continue with symptomatic treatment. Resume home medication. Monitor lytes and vitals. DVT and GI prophylaxis. Further recommendations of the clinical course of the patient DVT prophylaxis: Subcutaneous heparin GI Prophylaxis: Protonix Prognosis is guarded
[2018-11-06 14:01] LABS: Basophils # (A) 0.1 k/uL (0-0.2); Basophils % (A) 1 %; Eosinophils # (A) 0.1 k/uL (0-0.7); Eosinophils % (A) 2 %; HCT 36.8 % (34.0-46.0); HGB 11.4 gm/dL (11.4-16.0); Hypochromasia Slight; Lymphocytes # (A) 1.3 k/uL (1.0-4.8); Lymphocytes % (A) 18 %; MCH 27.1 pg (25.0-35.0); MCV 87.5 fL (80.0-100.0); Mean Platelet Volume 8.4; Monocytes # (A) 0.6 k/uL (0-1.0); Monocytes % (A) 8 %; Neutrophils # (A) 5.1 k/uL (1.3-7.7); Neutrophils % (A) 69 %; Platelet Count 402 k/uL (150-450); RBC 4.21 m/uL (3.80-5.40); RDW 14.4 % (11.5-15.5); WBC 7.4 k/uL (3.8-10.6)
[2018-11-06 14:13] LABS: ALT 23 U/L (9-52); AST 25 U/L (14-36); African American GFR (CKD) >90 (>60 ml/min/1.73 sqM); Albumin 2.9 g/dL (3.5-5.0); Alkaline Phosphatase 216 U/L (38-126); Anion Gap 11 mmol/L; Blood Urea Nitrogen 9 mg/dL (7-17); Calcium 8.6 mg/dL (8.4-10.2); Carbon Dioxide 21 mmol/L (22-30); Chloride 108 mmol/L (98-107); Glucose 199 mg/dL (74-99); Magnesium 1.8 mg/dL (1.6-2.3); Sodium 140 mmol/L (137-145); Total Bilirubin 0.3 mg/dL (0.2-1.3); Total Protein 5.7 g/dL (6.3-8.2)
[2018-11-06 14:30] VITALS: BMI 23.1
[2018-11-06] MEDS: SIMETHICONE 40 MG/0.6 ML DROPS 2,000 MG/30 ML BOTTLE PO SCH ×3 (15:26→21:21)
[2018-11-06] MEDS: ONDANSETRON 4 MG/2 ML VIAL IVP PRN (16:32)
[2018-11-06 16:55] LABS: Glucose,Whole Blood 173 mg/dL (75-99)
[2018-11-06] MEDS: ATORVASTATIN 80 MG TAB PO SCH (20:21)
[2018-11-06] MEDS: traZODone HCL 50 MG TAB PO SCH (20:21)
[2018-11-06] MEDS: MELATONIN 3 MG TABLET PO SCH (20:21)
[2018-11-06 23:57] LABS: Glucose,Whole Blood 115 mg/dL (75-99)
[2018-11-07] MEDS: PIPERACILLIN-TAZOBACTAM 3.375 GM in SODIUM CHLORIDE 0.9% 100 ML IVPB SCH ×3 (00:04→17:02)
[2018-11-07] MEDS: INSULIN ASPART (NovoLOG) 100 UNIT/ML VIAL SQ SCH ×4 (00:04→17:32)
[2018-11-07] MEDS: HEPARIN SODIUM,PORCINE 5,000 UNIT/ML 1 ML VIAL SQ SCH ×3 (00:05→17:01)
[2018-11-07] MEDS: METOCLOPRAMIDE 5 MG/ML 2 ML VIAL IVP SCH ×4 (02:24→19:56)
[2018-11-07] MEDS: HYDROcodone/APAP 10-325MG 1 EACH TAB PO PRN ×3 (02:40→19:56)
[2018-11-07 05:43] LABS: Glucose,Whole Blood 105 mg/dL (75-99)
[2018-11-07] MEDS: HYDROmorphone 1 MG/ML 1 ML SYRINGE IVP PRN ×3 (07:10→21:14)
[2018-11-07] MEDS: PANTOPRAZOLE 40 MG TABLET PO SCH (07:13)
[2018-11-07] MEDS: METOPROLOL TARTRATE 25 MG TAB PO SCH ×2 (07:13→21:13)
[2018-11-07] MEDS: TAMSULOSIN 0.4 MG CAP.ER.24H PO SCH (07:13)
[2018-11-07] MEDS: ASPIRIN 81 MG PO SCH (07:13)
[2018-11-07] MEDS: TROSPIUM CHLORIDE 20 MG TABLET PO SCH ×2 (07:15→21:14)
[2018-11-07] MEDS: BACLOFEN 10 MG TAB PO PRN ×2 (07:16→15:21)
[2018-11-07] MEDS: SIMETHICONE 40 MG/0.6 ML DROPS 2,000 MG/30 ML BOTTLE PO SCH ×4 (07:18→22:57)
[2018-11-07] MEDS: SODIUM CHLORIDE 0.9% 1,000 ML IV SCH ×2 (07:21→23:00)
[2018-11-07] MEDS: SYMBICORT 160-4.5 MCG INHALER INHALATION SCH ×2 (08:25→19:39)
[2018-11-07] MEDS: IPRATROPIUM-ALBUTEROL 3 ML NEB INHALATION SCH ×4 (08:25→19:39)
[2018-11-07 11:37] LABS: Glucose,Whole Blood 121 mg/dL (75-99)
--- NOTE | 2018-11-07 11:47 | P.PN ---
Subjective Progress Note Date: 11/07/18 CHIEF COMPLAINT: abdominal pain, vomiting HISTORY OF PRESENT ILLNESS: Patient examined this morning at the bedside. Patient is status post exploratory laparotomy, lysis of adhesions, incidental appendectomy, and small bowel resection. Postop day #8. Patient reports improvement in abdominal pain, bloating, and nausea. She is passing flatus and having BMs. PHYSICAL EXAM: VITAL SIGNS: Reviewed GENERAL: Well-developed in no acute distress. HEENT: No sclera icterus. Extraocular movements grossly intact. Moist buccal mucosa. Head is atraumatic, normocephalic. Hears conversational speech. No nasal drainage. NECK: Supple without lymphadenopathy. CHEST: Non-labored respirations and equal bilateral excursions. CARDIOVASCULAR: Regular rate with regular rhythm. Palpable 2+ radial pulses. ABDOMEN: Soft. Distended. Minimal tenderness. Dressing CDI. MUSCULOSKELETAL: No clubbing, cyanosis or edema. NEUROLOGIC: No focal or lateralizing signs. Cranial nerves II through XII grossly intact. PSYCH: Appropriate affect. Alert and oriented to person, place and time. SKIN: Well perfused. Good skin turgor. ASSESSMENT: 1. Acute small bowel obstruction, s/p exploratory laparotomy, lysis of adhesions, incidental appendectomy, and small bowel resection 2. Hypokalemia, resolved 3. Hypomagnesemia, resolved PLAN: Advance diet to full liquids Pain control Incentive spirometry Activity as tolerated. Patient to be OOB for all meals and ambulating in the hallway. Nurse practitioner note has been reviewed by physician. Signing provider agrees with the documented findings, assessment, and plan of care. Objective - Vital Signs Vital signs: Vital Signs Temp 98.1 F 11/07/18 07:00 Pulse 95 11/07/18 08:35 Resp 17 11/07/18 07:00 BP 157/74 11/07/18 07:00 Pulse Ox 95 11/07/18 07:00 Intake & Output 11/06/18 11/07/18 11/07/18 18:59 06:59 18:59 Intake Total 70 Balance 70 Weight 57.5 kg 54 kg Intake: Oral 70 Other: Voiding Method Toilet Toilet Toilet Bedside Commode Bedside Commode # Voids 1 - Labs CBC & Chem 7: 11/06/18 13:22 11/06/18 13:22 Labs: Abnormal Lab Results - Last 24 Hours (Table) 11/06/18 11/06/18 11/06/18 Range/Units 13:22 16:55 23:54 Chloride 108 H (98-107) mmol/L Carbon Dioxide 21 L (22-30) mmol/L Creatinine 0.51 L (0.52-1.04) mg/dL Glucose 199 H (74-99) mg/dL POC Glucose (mg/dL) 173 H 115 H (75-99) mg/dL Alkaline Phosphatase 216 H (38-126) U/L Total Protein 5.7 L (6.3-8.2) g/dL Albumin 2.9 L (3.5-5.0) g/dL 11/07/18 11/07/18 Range/Units 05:41 11:25 Chloride (98-107) mmol/L Carbon Dioxide (22-30) mmol/L Creatinine (0.52-1.04) mg/dL Glucose (74-99) mg/dL POC Glucose (mg/dL) 105 H 121 H (75-99) mg/dL Alkaline Phosphatase (38-126) U/L Total Protein (6.3-8.2) g/dL Albumin (3.5-5.0) g/dL Assessment and Plan (1) Ileus Current Visit: Yes Status: Acute Code(s): K56.7 - ILEUS, UNSPECIFIED SNOMED Code(s): 339018897 (2) Small bowel obstruction Current Visit: Yes Status: Acute Code(s): K56.609 - UNSP INTESTNL OBST, UNSP TO PARTIAL VERSUS COMPLETE OBST SNOMED Code(s): 018562021 (3) Abdominal pain Current Visit: No Status: Acute Code(s): R10.9 - UNSPECIFIED ABDOMINAL PAIN SNOMED Code(s): 71790119
--- NOTE | 2018-11-07 11:48 | P.PN ---
Subjective This is a pleasant 68 years old female with past medical history of coronary artery disease, diabetes mellitus, GERD, fibromyalgia, IBS, idiopathic thrombocytopenic purpura, herniated disc, restless leg syndrome. stomach ulcer. Who presents with abdominal pain. Patient is found to have bowel obstruction and she is status post lysis of adhesions and small bowel resection 10/30/2018. Postop day #5. Patient she still complaining from abdominal pain, she has some mild loose bowel movement. She has dysuria at times but not today and is resolved as per patient. Patient denies chest pain or dyspnea. Patient is afebrile with no leukocytosis, however urine culture is growing enterococcus which is sensitive to penicillin. Patient is already on Zosyn. 11/05/2018 Patient looks better today this abdominal pain and distress. She is on a clear liquid diet with no nausea vomiting, however she vomited once last night but not anymore. abdominal pain is expected and is improving gradually. She has one bowel movement last night either. TPN is being tapered off. Pino catheter has been discontinued. Patient is hemodynamically stable. She is mildly tachycardic. Temperature is 99.1, mostly reactive to surgery. Creatinine 0.4. A sugar controlled 11/06/2018 Patient is improving as today she has less abdominal pain. No nausea vomiting. She has 2 bouts of loose bowel movement yesterday. Her TPN was stopped on IV fluids lowered to 80 mL/h as she is tolerating her liquid diet and her abdominal pain is improving gradually. Repeat urine analysis show improvement. And her sugar controlled. Patient remains on Zosyn for her possible intra-abdominal infection and enterococcus in the urine. Patient is hemodynamically stable. 11/07/2018 Patient still have her abdominal pain subsided today. However she's having diarrhea about 2-3 times since yesterday, with significant amount. She denies bloating. She denies urinary signs or symptoms. An abdominal examination showed expected tenderness at the surgical site. Her abdomen is soft. PT/OT recommended home health care. Today I have lengthy discussion of the patient about her left adrenal mass and right pulmonary Cipro hilar nodules. Patient stated that she has history of left cancer about 20 years ago status post surgical resection and she's been treated and followed up, she stated that she and her PCP Dr. cardoza are aware of her left adrenal mass and she underwent recent PET scan and she has been told it is unremarkable. Patient was informed about the possible risk units of cancer in these lesions in the adrenal and right leg, she verbalized understanding and acceptance and she appears to follow-up with her PCP Dr. aguilera who is aware about her left adrenal mass. Surgery team R following the case and she is currently on liquid diet My review of systems CONSTITUTIONAL: No fever, no malaise, no fatigue. HEENT: No recent visual problems or hearing problems. Denied any sore throat. CARDIOVASCULAR: No orthopnea, PND, no palpitations, no syncope. PULMONARY: No shortness of breath, no cough, no hemoptysis. GASTROINTESTINAL: No diarrhea, no nausea, no vomiting, no abdominal pain. Normoactive bowel sounds. NEUROLOGICAL: No headaches, no weakness, no numbness. HEMATOLOGICAL: Denies any bleeding or petechiae. GENITOURINARY: Denies any burning micturition, frequency, or urgency. MUSCULOSKELETAL/RHEUMATOLOGICAL: Denies any joint pain, swelling, or any muscle pain. ENDOCRINE: Denies any polyuria or polydipsia. Active Medications Generic Name Dose Route Start Last Admin Trade Name Freq PRN Reason Stop Dose Admin Hydrocodone Bitart/Acetaminophen 1 each 10/27/18 00:20 11/07/18 11:18 [place] 10 PO 1 each TID PRN Administration Pain Albuterol/Ipratropium 3 ml 10/27/18 08:00 11/07/18 08:25 Duoneb 0.5 Mg-3 Mg/3 Ml Soln INHALATION 3 ml RT-QID REY Administration Aspirin 81 mg 10/27/18 09:00 11/07/18 07:13 Aspirin PO 81 mg DAILY REY Administration Atorvastatin Calcium 80 mg 10/27/18 21:00 11/06/18 20:21 Lipitor PO 80 mg HS REY Administration Baclofen 5 mg 10/27/18 00:20 11/07/18 07:16 Lioresal PO 5 mg TID PRN Administration Spasms Budesonide/Formoterol Fumarate 2 puff 10/27/18 08:00 11/07/18 08:25 Symbicort 160-4.5 Mcg Inhaler INHALATION 2 puff RT-BID REY Administration Heparin Sodium (Porcine) 5,000 unit 11/04/18 16:00 11/07/18 07:20 Heparin SQ 5,000 unit Q8HR REY Administration Hydromorphone HCl 1 mg 11/04/18 09:11 11/07/18 07:10 Dilaudid IVP 1 mg Q3HR PRN Administration Pain Piperacillin Sod/Tazobactam 100 mls @ 25 mls/hr 10/29/18 16:00 11/07/18 07:11 Sod 3.375 gm/ Sodium Chloride IVPB 25 mls/hr Q8HR REY Administration Sodium Chloride 1,000 mls @ 75 mls/hr 11/04/18 14:15 11/07/18 07:21 Saline 0.9% IV 75 mls/hr .[id number] REY Administration Insulin Aspart 0 unit 10/29/18 00:00 11/07/18 05:44 Novolog SQ Not Given Q6HR [facility] Protocol Insulin Detemir 30 unit 10/27/18 12:00 11/06/18 11:10 Levemir SQ Not Given DAILY@1200 REY Lorazepam 0.5 mg 10/26/18 19:50 11/04/18 14:30 Ativan IV 0.5 mg Q6HR PRN Administration Anxiety Melatonin 3 mg 10/27/18 00:45 11/06/18 20:21 Melatonin PO 3 mg HS [facility] Administration Metoclopramide HCl 10 mg 11/06/18 08:00 11/07/18 07:18 Reglan IVP 10 mg Q6H [facility] Administration Metoprolol Tartrate 12.5 mg 10/27/18 00:45 11/07/18 07:13 Lopressor PO 12.5 mg BID REY Administration Morphine Sulfate 4 mg 10/26/18 19:50 10/30/18 04:45 Morphine Sulfate (Inj) IV 4 mg Q4HR PRN Administration Severe Pain Naloxone HCl 0.2 mg 10/26/18 19:50 Narcan IV Q2M PRN Opioid Reversal Nitroglycerin 0.4 mg 10/27/18 00:20 Nitrostat SUBLINGUAL Q5M PRN Chest Pain Ondansetron HCl 4 mg 10/28/18 16:15 11/06/18 16:32 Zofran IVP 4 mg Q6HR PRN Administration Nausea And Vomiting Pantoprazole Sodium 40 mg 10/30/18 09:00 11/07/18 07:13 Protonix PO 40 mg DAILY REY Administration Ropinirole HCl 0.25 mg 10/27/18 00:45 11/06/18 20:21 Requip PO 0.25 mg HS REY Administration Simethicone 40 mg 11/06/18 14:30 11/07/18 07:18 Mylicon Drops PO 40 mg QID REY Administration Tamsulosin HCl 0.4 mg 10/27/18 09:00 11/07/18 07:13 Flomax PO 0.4 mg DAILY REY Administration Trazodone HCl 50 mg 10/27/18 00:45 11/06/18 20:21 Desyrel PO 50 mg HS REY Administration Trospium 20 mg 10/27/18 00:45 11/07/18 07:15 [place] PO 20 mg BID REY Administration Objective - Vital Signs Vital signs: Vital Signs Temp 98.1 F 11/07/18 07:00 Pulse 95 11/07/18 08:35 Resp 17 11/07/18 07:00 BP 157/74 11/07/18 07:00 Pulse Ox 95 11/07/18 07:00 Intake & Output 11/06/18 11/07/18 11/07/18 18:59 06:59 18:59 Intake Total 70 Balance 70 Weight 57.5 kg 54 kg Intake: Oral 70 Other: Voiding Method Toilet Toilet Toilet Bedside Commode Bedside Commode # Voids 1 - Exam GENERAL: The patient is alert and oriented x3, not in any acute distress. Well developed, well nourished. HEENT: Pupils are round and equally reacting to light. EOMI. No scleral icterus. No conjunctival pallor. Normocephalic, atraumatic. No pharyngeal erythema. No thyromegaly. CARDIOVASCULAR: S1 and S2 present. No murmurs, rubs, or gallops. PULMONARY: Chest is clear to auscultation, no wheezing or crackles. -ABDOMEN: Soft, nontender, nondistended, normoactive bowel sounds. No palpable organomegaly. Wound Is healing, dressing is in a Place. Expecting tenderness around the wound, rest of exam is deferred to the surgical primary team. MUSCULOSKELETAL: No joint swelling or deformity. EXTREMITIES: No cyanosis, clubbing, or pedal edema. NEUROLOGICAL: Gross neurological examination did not reveal any focal deficits. SKIN: No rashes. - Labs CBC & Chem 7: 11/06/18 13:22 11/06/18 13:22 Labs: Abnormal Lab Results - Last 24 Hours (Table) 11/06/18 11/06/18 11/06/18 Range/Units 13:22 16:55 23:54 Chloride 108 H (98-107) mmol/L Carbon Dioxide 21 L (22-30) mmol/L Creatinine 0.51 L (0.52-1.04) mg/dL Glucose 199 H (74-99) mg/dL POC Glucose (mg/dL) 173 H 115 H (75-99) mg/dL Alkaline Phosphatase 216 H (38-126) U/L Total Protein 5.7 L (6.3-8.2) g/dL Albumin 2.9 L (3.5-5.0) g/dL 11/07/18 11/07/18 Range/Units 05:41 11:25 Chloride (98-107) mmol/L Carbon Dioxide (22-30) mmol/L Creatinine (0.52-1.04) mg/dL Glucose (74-99) mg/dL POC Glucose (mg/dL) 105 H 121 H (75-99) mg/dL Alkaline Phosphatase (38-126) U/L Total Protein (6.3-8.2) g/dL Albumin (3.5-5.0) g/dL Assessment and Plan Assessment: SBO, status post lysis of adhesions and small bowel resection Possible urinary tract infection with enterococcus History of coronary artery disease Diabetes mellitus History of GERD Chronic fibromyalgia 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 Continue with pain management and DVT prophylaxis as per the surgical primary team. Continue with antibiotics for urinary enterococcus and her abdominal wound. Continue with insulin and monitor sugar. Labs and medication were reviewed.. Continue same treatment. Continue with symptomatic treatment. Resume home medication. Monitor lytes and vitals. DVT and GI prophylaxis. Further recommendations of the clinical course of the patient DVT prophylaxis: Subcutaneous heparin GI Prophylaxis: Protonix Prognosis is guarded
[2018-11-07] MEDS: INSULIN DETEMIR (LEVEMIR) 100 UNIT/ML SYR SQ SCH (11:54)
[2018-11-07 17:42] LABS: Glucose,Whole Blood 153 mg/dL (75-99)
[2018-11-07 20:21] LABS: Glucose,Whole Blood 155 mg/dL (75-99)
[2018-11-07] MEDS: MELATONIN 3 MG TABLET PO SCH (21:14)
[2018-11-07] MEDS: traZODone HCL 50 MG TAB PO SCH (21:14)
[2018-11-07] MEDS: ATORVASTATIN 80 MG TAB PO SCH (21:14)
[2018-11-08] MEDS: INSULIN ASPART (NovoLOG) 100 UNIT/ML VIAL SQ SCH ×3 (00:08→12:13)
[2018-11-08] MEDS: HEPARIN SODIUM,PORCINE 5,000 UNIT/ML 1 ML VIAL SQ SCH ×2 (00:09→09:29)
[2018-11-08] MEDS: PIPERACILLIN-TAZOBACTAM 3.375 GM in SODIUM CHLORIDE 0.9% 100 ML IVPB SCH ×2 (00:11→09:29)
[2018-11-08 00:18] LABS: Glucose,Whole Blood 127 mg/dL (75-99)
[2018-11-08] MEDS: HYDROcodone/APAP 10-325MG 1 EACH TAB PO PRN (03:47)
[2018-11-08] MEDS: METOCLOPRAMIDE 5 MG/ML 2 ML VIAL IVP SCH ×2 (03:47→10:01)
[2018-11-08 05:43] LABS: Glucose,Whole Blood 102 mg/dL (75-99)
[2018-11-08] MEDS: BACLOFEN 10 MG TAB PO PRN ×2 (06:02→12:15)
[2018-11-08] MEDS: SYMBICORT 160-4.5 MCG INHALER INHALATION SCH (08:31)
[2018-11-08] MEDS: IPRATROPIUM-ALBUTEROL 3 ML NEB INHALATION SCH ×2 (08:32→11:39)
[2018-11-08 08:51] VITALS: BP 125/73; PULSE 86; RESP 16; TEMP 98.2
[2018-11-08] MEDS: ASPIRIN 81 MG PO SCH (09:29)
[2018-11-08] MEDS: METOPROLOL TARTRATE 25 MG TAB PO SCH (09:30)
[2018-11-08] MEDS: TROSPIUM CHLORIDE 20 MG TABLET PO SCH (09:30)
[2018-11-08] MEDS: SIMETHICONE 40 MG/0.6 ML DROPS 2,000 MG/30 ML BOTTLE PO SCH (09:30)
[2018-11-08] MEDS: TAMSULOSIN 0.4 MG CAP.ER.24H PO SCH (09:30)
[2018-11-08] MEDS: PANTOPRAZOLE 40 MG TABLET PO SCH (09:30)
[2018-11-08] MEDS: INSULIN DETEMIR (LEVEMIR) 100 UNIT/ML SYR SQ SCH (12:13)
[2018-11-08 12:20] LABS: Glucose,Whole Blood 101 mg/dL (75-99)
--- NOTE | 2018-11-08 13:23 | P.DS ---
Providers Date of admission: 10/26/18 19:37 Expected date of discharge: 11/08/18 Attending physician: Ricci Fang Consults: 10/26/18 19:50 Consult Physician Stat Consulting Provider: Elmer Monteiro Consult Reason/Comments: SBO Do you want consulting provider notified?: Yes Primary care physician: Nick Brock - Discharge Diagnosis(es) (1) Ileus Current Visit: Yes Status: Acute (2) Small bowel obstruction Current Visit: Yes Status: Acute (3) Abdominal pain Current Visit: No Status: Acute Hospital Course: 68-year-old female who presented the hospital with a chief complaint of abdominal pain, nausea, and vomiting. CAT scan was obtained revealing small bowel Obstruction. NG tube was placed. conservative management with uns uccessful and patient underwent exploratory laparotomy, lysis of adhesions, incidental appendectomy, and small bowel resection. Patient doing well postoperatively. She is tolerating full liquid diet. Denies nausea or vomiting. Passing flatus and having BMs. Urine culture was positive for Enterococcus faecalis. Patient will be discharged home on Levaquin which is susceptible per culture report. She is stable at the time of discharge. Please see EMR for further hospital course details. Discharge Diagnosis: 1. Acute small bowel obstruction, s/p exploratory laparotomy, lysis of adhesions, incidental appendectomy, and small bowel resection 2. Hypokalemia, resolved 3. Hypomagnesemia, resolved 4. Urinary tract infection, culture positive for Enterococcus faecalis Nurse practitioner note has been reviewed by physician. Signing provider agrees with the documented findings, assessment, and plan of care. Patient Condition at Discharge: Stable Plan - Discharge Summary Discharge Rx Participant: Yes New Discharge Prescriptions: Continue ALPRAZolam 0.25 mg PO BID PRN PRN Reason: Anxiety rOPINIRole HCL [Requip] 0.25 mg PO HS Solifenacin Succinate [Vesicare] 10 mg PO HS Pantoprazole [Protonix] 40 mg PO QAM PRN PRN Reason: Heartburn Aspirin 81 mg PO DAILY chew Nitroglycerin Sl Tabs [Nitrostat] 0.4 mg SUBLINGUAL Q5M PRN #21 tab PRN Reason: Chest Pain Clopidogrel Bisulfate [Plavix] 75 mg PO DAILY Ipratropium/Albuterol Sulfate [Combivent Respimat Inhaler] 1 puff INHALATION RT-QID Budesonide-Formot 160-4.5 Mcg [Symbicort 160-4.5 Mcg Inhaler] 2 puff INHALATION RT-BID Atorvastatin [Lipitor] 80 mg PO DAILY Tamsulosin [Flomax] 0.4 mg PO DAILY #30 cap.er.24h Melatonin 3 mg PO HS tablet HYDROcodone/APAP 10-325MG [[place] 10-325] 1 tab PO TID PRN PRN Reason: Pain Metoprolol Tartrate [Lopressor] 12.5 mg PO BID #60 tab Insulin Detemir (Levemir) [Levemir] 30 unit SQ DAILY@1200 INSULIN ASPART (NovoLOG) [NovoLOG (formulary)] See Protocol SQ AC-TID traZODone HCL 50 mg PO HS Baclofen [Lioresal] 5 mg PO TID PRN #30 tablet PRN Reason: Spasms Discharge Medication List ALPRAZolam 0.25 mg PO BID PRN 11/03/15 [History] Solifenacin Succinate [Vesicare] 10 mg PO HS 04/12/16 [History] rOPINIRole HCL [Requip] 0.25 mg PO HS 04/12/16 [History] Pantoprazole [Protonix] 40 mg PO QAM PRN 01/14/17 [History] Aspirin 81 mg PO DAILY chew 01/17/17 [Rx] Nitroglycerin Sl Tabs [Nitrostat] 0.4 mg SUBLINGUAL Q5M PRN #21 tab 01/17/17 [Rx] Clopidogrel Bisulfate [Plavix] 75 mg PO DAILY 06/26/17 [History] Atorvastatin [Lipitor] 80 mg PO DAILY 08/31/17 [History] Budesonide-Formot 160-4.5 Mcg [Symbicort 160-4.5 Mcg Inhaler] 2 puff INHALATION RT-BID 08/31/17 [History] Ipratropium/Albuterol Sulfate [Combivent Respimat Inhaler] 1 puff INHALATION RT- QID 08/31/17 [History] Tamsulosin [Flomax] 0.4 mg PO DAILY #30 cap.er.24h 09/22/17 [Rx] Melatonin 3 mg PO HS tablet 09/28/17 [Rx] HYDROcodone/APAP 10-325MG [[place] 10-325] 1 tab PO TID PRN 08/19/18 [History] Metoprolol Tartrate [Lopressor] 12.5 mg PO BID #60 tab 08/22/18 [Rx] Insulin Detemir (Levemir) [Levemir] 30 unit SQ DAILY@1200 08/27/18 [History] Baclofen [Lioresal] 5 mg PO TID PRN #30 tablet 09/07/18 [Rx] INSULIN ASPART (NovoLOG) [NovoLOG (formulary)] See Protocol SQ AC-TID 09/07/18 [History] traZODone HCL 50 mg PO HS 09/07/18 [History] Follow up Appointment(s)/Referral(s): Nick Brock MD [Primary Care Provider] - 11/15/18 11:30 am () Ricci Fang MD [Family Provider] - 11/12/18 2:00 pm Activity/Diet/Wound Care/Special Instructions: No driving while taking [place] No lifting over 10 pounds You may shower. No soaking or tub baths Very light activity until you are reevaluated at your follow up appointment with your surgeon
--- NOTE | 2018-11-08 13:49 | P.PN ---
Subjective This is a pleasant 68 years old female with past medical history of coronary artery disease, diabetes mellitus, GERD, fibromyalgia, IBS, idiopathic thrombocytopenic purpura, herniated disc, restless leg syndrome. stomach ulcer. Who presents with abdominal pain. Patient is found to have bowel obstruction and she is status post lysis of adhesions and small bowel resection 10/30/2018. Postop day #5. Patient she still complaining from abdominal pain, she has some mild loose bowel movement. She has dysuria at times but not today and is resolved as per patient. Patient denies chest pain or dyspnea. Patient is afebrile with no leukocytosis, however urine culture is growing enterococcus which is sensitive to penicillin. Patient is already on Zosyn. 11/05/2018 Patient looks better today this abdominal pain and distress. She is on a clear liquid diet with no nausea vomiting, however she vomited once last night but not anymore. abdominal pain is expected and is improving gradually. She has one bowel movement last night either. TPN is being tapered off. Pino catheter has been discontinued. Patient is hemodynamically stable. She is mildly tachycardic. Temperature is 99.1, mostly reactive to surgery. Creatinine 0.4. A sugar controlled 11/06/2018 Patient is improving as today she has less abdominal pain. No nausea vomiting. She has 2 bouts of loose bowel movement yesterday. Her TPN was stopped on IV fluids lowered to 80 mL/h as she is tolerating her liquid diet and her abdominal pain is improving gradually. Repeat urine analysis show improvement. And her sugar controlled. Patient remains on Zosyn for her possible intra-abdominal infection and enterococcus in the urine. Patient is hemodynamically stable. 11/07/2018 Patient still have her abdominal pain subsided today. However she's having diarrhea about 2-3 times since yesterday, with significant amount. She denies bloating. She denies urinary signs or symptoms. An abdominal examination showed expected tenderness at the surgical site. Her abdomen is soft. PT/OT recommended home health care. Today I have lengthy discussion of the patient about her left adrenal mass and right pulmonary Cipro hilar nodules. Patient stated that she has history of left cancer about 20 years ago status post surgical resection and she's been treated and followed up, she stated that she and her PCP Dr. cardoza are aware of her left adrenal mass and she underwent recent PET scan and she has been told it is unremarkable. Patient was informed about the possible risk units of cancer in these lesions in the adrenal and right leg, she verbalized understanding and acceptance and she appears to follow-up with her PCP Dr. aguilera who is aware about her left adrenal mass. Surgery team R following the case and she is currently on liquid diet 11/08/2018 Patient is awake with no chest pain or dyspnea. Her abdominal pain keep improving she rated today as 4-5/10 in severity. She has no nausea vomiting. He has 1 loose bowel movement this morning but is improving and patient is tolerating that well. Physical therapist recommended home with home health care . Patient is doing well and Patient looks like is going to be discharged today by surgical team, patient herself recognize that and states she is ready to be discharged. I called Dr. nani May and updated him about the patient condition including the right pulmonary nodule and left adrenal mass, he told me he is aware of its and she is already been evaluated for these lesions. Patient will be discharged on Levaquin for 7 days by the surgical team. Objective - Vital Signs Vital signs: Vital Signs Temp 98.2 F 11/08/18 07:00 Pulse 86 11/08/18 08:00 Resp 16 11/08/18 08:00 BP 125/73 11/08/18 07:00 Pulse Ox 97 11/08/18 07:00 Intake & Output 11/07/18 11/08/18 11/08/18 18:59 06:59 18:59 Intake Total 270 Balance 270 Weight 52.6 kg Intake: Oral 270 Other: Voiding Method Toilet Toilet # Voids 1 - Exam GENERAL: The patient is alert and oriented x3, not in any acute distress. Well developed, well nourished. HEENT: Pupils are round and equally reacting to light. EOMI. No scleral icterus. No conjunctival pallor. Normocephalic, atraumatic. No pharyngeal erythema. No thyromegaly. CARDIOVASCULAR: S1 and S2 present. No murmurs, rubs, or gallops. PULMONARY: Chest is clear to auscultation, no wheezing or crackles. -ABDOMEN: Soft, nontender, nondistended, normoactive bowel sounds. No palpable organomegaly. Wound Is healing, dressing is in a Place. Expecting tenderness around the wound, rest of exam is deferred to the surgical primary team. MUSCULOSKELETAL: No joint swelling or deformity. EXTREMITIES: No cyanosis, clubbing, or pedal edema. NEUROLOGICAL: Gross neurological examination did not reveal any focal deficits. SKIN: No rashes. - Labs CBC & Chem 7: 11/06/18 13:22 11/06/18 13:22 Labs: Abnormal Lab Results - Last 24 Hours (Table) 11/07/18 11/07/18 11/08/18 Range/Units 17:31 20:10 00:07 POC Glucose (mg/dL) 153 H 155 H 127 H (75-99) mg/dL 11/08/18 11/08/18 Range/Units 05:31 12:08 POC Glucose (mg/dL) 102 H 101 H (75-99) mg/dL Assessment and Plan Assessment: SBO, status post lysis of adhesions and small bowel resection Possible urinary tract infection with enterococcus. Sufficiently treated Left adrenal mass and right suprahilar pulmonary nodule, patient and Dr. 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 Continue with pain management and DVT prophylaxis as per the surgical primary team. Continue with antibiotics for urinary enterococcus and her abdominal wound. Continue with insulin and monitor sugar. Labs and medication were reviewed.. Continue same treatment. Continue with symptomatic treatment. Resume home medication. Monitor lytes and vitals. DVT and GI prophylaxis. Further recommendations of the clinical course of the patient r DVT prophylaxis: Subcutaneous heparin GI Prophylaxis: Protonix Prognosis is guarded patient is medically stable for discharge however she needs follow-up as an outpatient we recommend patient follow up with her PCP in one week Thank you for consulting us.
== END 2018-11-08 13:44 | disposition home or self-care (01) | DRG 330 ==
LOC: EC 16:51 → 6PED 19:37 → 4SSUR 10-29 10:24
PROVIDERS: ADMIT Surgery; ATTEND Surgery
PROC: 0DTJ0ZZ Resection of Appendix, Open Approach (ICD-10-PCS; principal; 2018-10-26)
PROC: 0DN80ZZ Release Small Intestine, Open Approach (ICD-10-PCS; principal; 2018-10-26)
PROC: 0DB80ZZ Excision of Small Intestine, Open Approach (ICD-10-PCS; principal; 2018-10-26)
DX: K56.50 Intestinal adhesions [bands], unspecified as to partial versus complete obstruction (principal); D69.3 Immune thrombocytopenic purpura; J98.11 Atelectasis; N39.0 Urinary tract infection, site not specified; B95.2 Enterococcus as the cause of diseases classified elsewhere; E11.9 Type 2 diabetes mellitus without complications; E27.9 Disorder of adrenal gland, unspecified; E83.42 Hypomagnesemia; E87.6 Hypokalemia; F17.200 Nicotine dependence, unspecified, uncomplicated; F41.9 Anxiety disorder, unspecified; G25.81 Restless legs syndrome; G89.29 Other chronic pain; I25.10 Atherosclerotic heart disease of native coronary artery without angina pectoris; I25.2 Old myocardial infarction; K21.9 Gastro-esophageal reflux disease without esophagitis; K29.70 Gastritis, unspecified, without bleeding; K44.9 Diaphragmatic hernia without obstruction or gangrene; K58.9 Irritable bowel syndrome, unspecified; M19.91 Primary osteoarthritis, unspecified site; M51.26 Other intervertebral disc displacement, lumbar region; M79.7 Fibromyalgia; Z79.02 Long term (current) use of antithrombotics/antiplatelets; Z79.4 Long term (current) use of insulin; Z79.51 Long term (current) use of inhaled steroids; Z79.82 Long term (current) use of aspirin; Z79.899 Other long term (current) drug therapy; Z83.3 Family history of diabetes mellitus; Z85.118 Personal history of other malignant neoplasm of bronchus and lung; Z87.11 Personal history of peptic ulcer disease; Z90.710 Acquired absence of both cervix and uterus; Z95.5 Presence of coronary angioplasty implant and graft
CPT/HCPCS: 36410; 36415; 74019; 74022; 74176; 74177; 76937; 80048; 80053; 81001; 82150; 82330; 83690; 83735; 84100; 84132; 84478; 85025; 87077; 87086; 87186; 88302; 88307; 94640; 94760; 96361; 96374; 96375; 99285

== ENCOUNTER 2019-01-13 16:14 | Observation (INO) | payer MEDICARE, OTHER ==
[2019-01-13] MEDS ORDERED: ASPIRIN 81 MG PO STA (17:16)
[2019-01-13] MEDS ORDERED: NITROGLYCERIN OINT 1 INCH/GM PACKET TOPICAL STA (17:16)
--- NOTE | 2019-01-13 17:29 | ED ---
General Adult HPI - General Chief complaint: Chest Pain Stated complaint: Chest pressure h/o stent Time Seen by Provider: 01/13/19 16:20 Source: patient, RN notes reviewed Mode of arrival: ambulatory Limitations: no limitations - History of Present Illness Initial comments: This is a 68-year-old female presents to the emergency department complaining of dysuria for the last couple of days. Patient also states she's been having chest pain since this morning about 10. Patient states it lasts about 20 minutes at a time and associated with the chest pain is been significant sweating. Patient states she had this same sweating when she had her heart attack and stent placed. Patient also has a history of lung cancer with partial left pneumonectomy. Patient states she has also been short of breath but she also states that she is normally short of breath. Patient denies any headache patient denies numbness or weakness. Patient denies any fever chills per patient denies any lightheadedness or dizziness. Patient denies any abdominal pain patient denies nausea vomiting diarrhea. Patient denies any leg swelling or calf tenderness. - Related Data Home Medications Medication Instructions Recorded Confirmed ALPRAZolam 0.25 mg PO AC-BID PRN 11/03/15 01/13/19 rOPINIRole HCL [Requip] 0.25 mg PO HS 04/12/16 01/13/19 Pantoprazole [Protonix] 40 mg PO DAILY 01/14/17 01/13/19 Clopidogrel Bisulfate [Plavix] 75 mg PO DAILY 06/26/17 01/13/19 Budesonide-Formot 160-4.5 Mcg 2 puff INHALATION RT-BID 08/31/17 01/13/19 [Symbicort 160-4.5 Mcg Inhaler] Ipratropium/Albuterol Sulfate 2 puff INHALATION RT-DAILY 08/31/17 01/13/19 [Combivent Respimat Inhaler] HYDROcodone/APAP 10-325MG [[place] 1 tab PO TID PRN 08/19/18 01/13/19 10-325] Insulin Detemir (Levemir) [Levemir] See Protocol SQ DAILY 08/27/18 01/13/19 INSULIN ASPART (NovoLOG) [NovoLOG See Protocol SQ AC-TID 09/07/18 01/13/19 (formulary)] traZODone HCL 50 mg PO HS 09/07/18 01/13/19 Atorvastatin [Lipitor] 20 mg PO HS 01/13/19 01/13/19 Loperamide [Imodium] 2 mg PO TID PRN 01/13/19 01/13/19 Metoprolol Succinate (ER) [Toprol 25 mg PO AC-SUPPER 01/13/19 01/13/19 Xl] Mirabegron [Myrbetriq] 25 mg PO AC-SUPPER 01/13/19 01/13/19 Allergies Allergy/AdvReac Type Severity Reaction Status Date / Time No Known Allergies Allergy Verified 01/13/19 17:44 Review of Systems ROS Statement: Those systems with pertinent positive or pertinent negative responses have been documented in the HPI. ROS Other: All systems not noted in ROS Statement are negative. Past Medical History Past Medical History: Coronary Artery Disease (CAD), Diabetes Mellitus, Fibromyalgia, GERD/Reflux, Myocardial Infarction ([place]) Additional Past Medical History / Comment(s): Idiopathic thrombocytopenia purpura, IBS, diverticulitis, hiatal hernia, 2 herniated discs-L3/L4, Restless Leg Syndrome, gastritis, superficial gastric ulcers. nodule on lt lung-Cancer Stg 1 Last Myocardial Infarction Date:: 01/2017 History of Any Multi-Drug Resistant Organisms: None Reported Past Surgical History: Adenoidectomy, Bladder Surgery, Bowel Resection, Cholecystectomy, Heart Catheterization With Stent, Hernia Repair, Hysterectomy, Tonsillectomy Additional Past Surgical History / Comment(s): BLADDER SUSPENSION x 2, breast biopsy x3, bowel resection due to rupture. left upper lobe of lung removed per CA, Past Anesthesia/Blood Transfusion Reactions: No Reported Reaction Additional Past Anesthesia/Blood Transfusion Reaction / Comment(s): Pt received blood in 2005 due to ITP without reaction. Date of Last Stent Placement:: 01/2017 Past Psychological History: Anxiety Smoking Status: Current some day smoker Past Alcohol Use History: None Reported Past Drug Use History: None Reported - Past Family History Mother Family Medical History: Cancer, Diabetes Mellitus Additional Family Medical History / Comment(s): Father had a defibrillator. He of heart dx in his 80's Father Family Medical History: Diabetes Mellitus Additional Family Medical History / Comment(s): HEART DISEASE General Exam - General Exam Comments Initial Comments: GENERAL: Patient is well-developed and well-nourished. Patient is nontoxic and well- hydrated and is in mild distress. ENT: Neck is soft and supple. No significant lymphadenopathy is noted. Oropharynx is clear. Moist mucous membranes. Neck has full range of motion without eliciting any pain. EYES: The sclera were anicteric and conjunctiva were pink and moist. Extraocular movements were intact and pupils were equal round and reactive to light. Eyelids were unremarkable. PULMONARY: Decreased breath sounds on the left side. CARDIOVASCULAR: There is a regular rate and rhythm without any murmurs gallops or rubs. ABDOMEN: Soft and nontender with normal bowel sounds. SKIN: Skin is clear with no lesions or rashes and otherwise unremarkable. NEUROLOGIC: Patient is alert and oriented x3. Cranial nerves II through XII are grossly intact. Motor and sensory are also intact. Normal speech, volume and content. Symmetrical smile. MUSCULOSKELETAL: Normal extremities with adequate strength and full range of motion. LYMPHATICS: No significant lymphadenopathy is noted PSYCHIATRIC: Normal psychiatric evaluation. Limitations: no limitations Course Vital Signs 01/13/19 01/13/19 16:16 18:19 Temperature 98.0 F Pulse Rate 88 85 Respiratory 16 18 Rate Blood Pressure 135/71 124/58 O2 Sat by Pulse 98 98 Oximetry Medical Decision Making - Medical Decision Making EKG shows normal sinus rhythm at 86 bpm MA interval is on a 44 tresses 88 QT interval 364 QTC is 435. EKG shows no ST segment elevation or depression Chest x-ray is stable since the previous x-ray. Patient was started on heparin because of the unstable angina picture. Patient also had a urinary tract infection started the patient on Rocephin. Rocephin on the floor. Patient was given aspirin and Nitropaste. Patient will be admitted to Dr. Monteiro he accepted the admission. I wrote admission orders. I consult cardiology continued aspirin and Nitropaste and heparin on the floor. - Lab Data Result diagrams: 01/13/19 17:35 01/13/19 17:35 Lab Results 01/13/19 01/13/19 01/13/19 Range/Units 17:35 17:35 17:35 WBC 10.5 (3.8-10.6) k/uL RBC 5.17 (3.80-5.40) m/uL Hgb 13.7 (11.4-16.0) gm/dL Hct 43.9 (34.0-46.0) % MCV 85.0 (80.0-100.0) fL MCH 26.6 (25.0-35.0) pg MCHC 31.3 (31.0-37.0) g/dL RDW 14.7 (11.5-15.5) % Plt Count 381 (150-450) k/uL Neutrophils % 65 % Lymphocytes % 25 % Monocytes % 5 % Eosinophils % 2 % Basophils % 1 % Neutrophils # 6.8 (1.3-7.7) k/uL Lymphocytes # 2.7 (1.0-4.8) k/uL Monocytes # 0.6 (0-1.0) k/uL Eosinophils # 0.2 (0-0.7) k/uL Basophils # 0.1 (0-0.2) k/uL PT 9.4 (9.0-12.0) sec INR 0.8 (<1.2) APTT 23.1 (22.0-30.0) sec Sodium 138 (137-145) mmol/L Potassium 4.6 (3.5-5.1) mmol/L Chloride 102 (98-107) mmol/L Carbon Dioxide 26 (22-30) mmol/L Anion Gap 10 mmol/L BUN 19 H (7-17) mg/dL Creatinine 0.66 (0.52-1.04) mg/dL Est GFR (CKD-EPI)AfAm >90 (>60 ml/min/1.73 sqM) Est GFR (CKD-EPI)NonAf 90 (>60 ml/min/1.73 sqM) Glucose 194 H (74-99) mg/dL Calcium 10.1 (8.4-10.2) mg/dL Magnesium 1.9 (1.6-2.3) mg/dL Total Bilirubin 0.2 (0.2-1.3) mg/dL AST 14 (14-36) U/L ALT 21 (9-52) U/L Alkaline Phosphatase 146 H (38-126) U/L Troponin I (0.000-0.034) ng/mL Total Protein 7.0 (6.3-8.2) g/dL Albumin 4.0 (3.5-5.0) g/dL Amylase 42 (30-110) U/L Lipase 196 (23-300) U/L Urine Color Urine Appearance (Clear) Urine pH (5.0-8.0) Ur Specific [place] (1.001-1.035) Urine Protein (Negative) Urine Glucose (UA) (Negative) Urine Ketones (Negative) Urine Blood (Negative) Urine Nitrite (Negative) Urine Bilirubin (Negative) Urine Urobilinogen (<2.0) mg/dL Ur Leukocyte Esterase (Negative) Urine RBC (0-5) /hpf Urine WBC (0-5) /hpf Ur Squamous Epith Cells (0-4) /hpf Urine Mucus (None) /hpf 01/13/19 01/13/19 Range/Units 17:35 18:17 WBC (3.8-10.6) k/uL RBC (3.80-5.40) m/uL Hgb (11.4-16.0) gm/dL Hct (34.0-46.0) % MCV (80.0-100.0) fL MCH (25.0-35.0) pg MCHC (31.0-37.0) g/dL RDW (11.5-15.5) % Plt Count (150-450) k/uL Neutrophils % % Lymphocytes % % Monocytes % % Eosinophils % % Basophils % % Neutrophils # (1.3-7.7) k/uL Lymphocytes # (1.0-4.8) k/uL Monocytes # (0-1.0) k/uL Eosinophils # (0-0.7) k/uL Basophils # (0-0.2) k/uL PT (9.0-12.0) sec INR (<1.2) APTT (22.0-30.0) sec Sodium (137-145) mmol/L Potassium (3.5-5.1) mmol/L Chloride (98-107) mmol/L Carbon Dioxide (22-30) mmol/L Anion Gap mmol/L BUN (7-17) mg/dL Creatinine (0.52-1.04) mg/dL Est GFR (CKD-EPI)AfAm (>60 ml/min/1.73 sqM) Est GFR (CKD-EPI)NonAf (>60 ml/min/1.73 sqM) Glucose (74-99) mg/dL Calcium (8.4-10.2) mg/dL Magnesium (1.6-2.3) mg/dL Total Bilirubin (0.2-1.3) mg/dL AST (14-36) U/L ALT (9-52) U/L Alkaline Phosphatase (38-126) U/L Troponin I <0.012 (0.000-0.034) ng/mL Total Protein (6.3-8.2) g/dL Albumin (3.5-5.0) g/dL Amylase (30-110) U/L Lipase (23-300) U/L Urine Color Light Yellow Urine Appearance Clear (Clear) Urine pH 5.5 (5.0-8.0) Ur Specific [place] 1.013 (1.001-1.035) Urine Protein Trace H (Negative) Urine Glucose (UA) 3+ H (Negative) Urine Ketones Negative (Negative) Urine Blood Trace H (Negative) Urine Nitrite Negative (Negative) Urine Bilirubin Negative (Negative) Urine Urobilinogen <2.0 (<2.0) mg/dL Ur Leukocyte Esterase Moderate H (Negative) Urine RBC 3 (0-5) /hpf Urine WBC 42 H (0-5) /hpf Ur Squamous Epith Cells 8 H (0-4) /hpf Urine Mucus Rare H (None) /hpf Critical Care Time Critical Care Time: Yes Total Critical Care Time: 35 Disposition Clinical Impression: Urinary tract infection, Unstable angina Disposition: ADMITTED IP TO THIS HOSP Referrals: Nick Brock MD [Primary Care Provider] - 1-2 days Time of Disposition: 18:54
[2019-01-13 17:48] LABS: Basophils # (A) 0.1 k/uL (0-0.2); Basophils % (A) 1 %; Eosinophils # (A) 0.2 k/uL (0-0.7); Eosinophils % (A) 2 %; HCT 43.9 % (34.0-46.0); HGB 13.7 gm/dL (11.4-16.0); Lymphocytes # (A) 2.7 k/uL (1.0-4.8); Lymphocytes % (A) 25 %; MCH 26.6 pg (25.0-35.0); MCHC 31.3 g/dL (31.0-37.0); Mean Platelet Volume 6.8; Monocytes # (A) 0.6 k/uL (0-1.0); Monocytes % (A) 5 %; Neutrophils # (A) 6.8 k/uL (1.3-7.7); Neutrophils % (A) 65 %; Platelet Count 381 k/uL (150-450); RBC 5.17 m/uL (3.80-5.40); RDW 14.7 % (11.5-15.5); WBC 10.5 k/uL (3.8-10.6)
[2019-01-13 17:56] LABS: ALT 21 U/L (9-52); AST 14 U/L (14-36); African American GFR (CKD) >90 (>60 ml/min/1.73 sqM); Alkaline Phosphatase 146 U/L (38-126); Amylase 42 U/L (30-110); Anion Gap 10 mmol/L; Blood Urea Nitrogen 19 mg/dL (7-17); Calcium 10.1 mg/dL (8.4-10.2); Carbon Dioxide 26 mmol/L (22-30); Chloride 102 mmol/L (98-107); Glucose 194 mg/dL (74-99); Magnesium 1.9 mg/dL (1.6-2.3); Non-African American GFR(CKD) 90 (>60 ml/min/1.73 sqM); Potassium 4.6 mmol/L (3.5-5.1); Sodium 138 mmol/L (137-145); Total Bilirubin 0.2 mg/dL (0.2-1.3)
[2019-01-13 17:57] LABS: INR 0.8 (<1.2); Partial Thromboplastin Time 23.1 sec (22.0-30.0); Prothrombin Time 9.4 sec (9.0-12.0)
--- NOTE | 2019-01-13 18:15 | XR ---
EXAMINATION TYPE: XR chest 2V DATE OF EXAM: 01/13/2019 COMPARISON: 10/26/2018 INDICATION: Chest pain TECHNIQUE: Frontal and lateral views of the chest are obtained. FINDINGS: The heart size is normal. The pulmonary vasculature is normal. There is elevation of the left diaphragm. Some linear opacity is present which could be related to at electasis. Nodularity is within the left suprahilar region which could be related to prior mass or pu lmonary artery. IMPRESSION: 1. Linear opacity at the elevated left diaphragm could be related to scarring or atelectasis. This is stable from October. 2. Left suprahilar apparent nodularity is stable.
[2019-01-13 18:20] VITALS: RESP 18
[2019-01-13 18:29] LABS: Appearance,Urine Clear (Clear); Bilirubin,Urine Negative (Negative); Blood,Urine Trace (Negative); Color,Urine Light Yellow; Glucose,Urine (UA) 3+ (Negative); Ketones,Urine Negative (Negative); Leukocyte Esterase,Urine Moderate (Negative); Mucus,Urine Rare /hpf; Nitrite,Urine Negative (Negative); PH, Urine 5.5 (5.0-8.0); Protein,Urine Trace (Negative); RBC,Urine 3 /hpf (0-5); Specific Gravity,Urine 1.013 (1.001-1.035); Squamous Epithelial Cell,Urine 8 /hpf (0-4); Urobilinogen,Urine <2.0 mg/dL (<2.0)
[2019-01-13] MEDS ORDERED: cefTRIAXone IN SWFI 1,000 MG/10 ML SYRINGE IVP STA (18:38)
[2019-01-13] MEDS ORDERED: HEPARIN SODIUM,PORCINE 5,000 UNIT/ML 1 ML VIAL IV ONE (18:51)
[2019-01-13] MEDS ORDERED: NITROGLYCERIN SL TABS 0.4 MG TAB SUBLINGUAL PRN (18:55)
[2019-01-13] MEDS ORDERED: HEPARIN SOD,PORK IN 0.45% NACL 25,000 UNIT in 0.45% NACL 1 250ML.BAG IV SCH (19:00)
[2019-01-13 21:57] VITALS: BMI 20.1
[2019-01-13] MEDS ORDERED: LOPERAMIDE 2 MG CAP PO PRN (22:16)
[2019-01-13] MEDS ORDERED: ALPRAZolam 0.25 MG TAB PO PRN (22:16)
[2019-01-13] MEDS ORDERED: ATORVASTATIN 20 MG TAB PO SCH (22:30)
[2019-01-13] MEDS: MELATONIN 3 MG TABLET PO SCH (22:34)
[2019-01-13] MEDS: HYDROcodone/APAP 10-325MG 1 EACH TAB PO PRN (22:34)
[2019-01-13] MEDS: traZODone HCL 50 MG TAB PO SCH (22:35)
[2019-01-13] MEDS: Mirabegron [Myrbetriq] 25 MG PO SCH (22:36)
[2019-01-13] MEDS ORDERED: IPRATROPIUM-ALBUTEROL 3 ML NEB INHALATION PRN (22:47)
[2019-01-13] MEDS: METOPROLOL SUCCINATE (ER) 25 MG TAB.ER.24H PO SCH (22:55)
[2019-01-13] MEDS: NITROGLYCERIN OINT 1 INCH/GM PACKET TOPICAL SCH (23:29)
[2019-01-14] MEDS: NITROGLYCERIN OINT 1 INCH/GM PACKET TOPICAL SCH (03:41)
[2019-01-14 06:35] LABS: Cholesterol 119 mg/dL (<200); HDL Cholesterol 29 mg/dL (40-60); Triglycerides 499 mg/dL (<150)
[2019-01-14 06:39] LABS: Glucose,Whole Blood 267 mg/dL (75-99)
[2019-01-14] MEDS: SYMBICORT 160-4.5 MCG INHALER INHALATION SCH ×2 (07:14→20:14)
[2019-01-14] MEDS: IPRATROPIUM-ALBUTEROL 3 ML NEB INHALATION SCH (07:15)
[2019-01-14] MEDS ORDERED: ASPIRIN 325 MG TAB PO SCH (09:00)
[2019-01-14] MEDS ORDERED: INSULIN DETEMIR (LEVEMIR) 100 UNIT/ML SYR SQ SCH (09:00)
[2019-01-14] MEDS: INSULIN ASPART (NovoLOG) 100 UNIT/ML VIAL SQ SCH ×3 (09:28→17:07)
[2019-01-14] MEDS: ASPIRIN 81 MG PO SCH (09:29)
[2019-01-14] MEDS: PANTOPRAZOLE 40 MG TABLET PO SCH (09:29)
[2019-01-14] MEDS: CLOPIDOGREL 75 MG TAB PO SCH (09:30)
[2019-01-14 11:34] LABS: Glucose,Whole Blood 247 mg/dL (75-99)
--- NOTE | 2019-01-14 13:01 | ECHOF ---
Referral Reason:cp MEASUREMENTS -------- HEIGHT: 157.5 cm WEIGHT: 49.9 kg BP: 99/58 IVSd: 1.3 cm (0.6 - 1.1) LVIDd: 3.0 cm (3.9 - 5.3) LVPWd: 1.4 cm (0.6 - 1.1) IVSs: 1.5 cm LVIDs: 1.5 cm LVPWs: 1.7 cm FINDINGS -------- Sinus rhythm. This was a technically adequate study. Limited Study The left ventricular size is normal. There is mild concentric left ventricular hypertrophy. Overa ll left ventricular systolic function is normal with, an EF between 55 - 60 %. There is no pericardial effusion. CONCLUSIONS -------- 1. Sinus rhythm. 2. This was a technically adequate study. 3. Limited Study 4. The left ventricular size is normal. 5. There is mild concentric left ventricular hypertrophy. 6. Overall left ventricular systolic function is normal with, an EF between 55 - 60 %. 7. There is no pericardial effusion. [employer]ER: Rosalina Ramos, [facility]
--- NOTE | 2019-01-14 13:24 | P.CRDCN ---
History of Present Illness History of present illness: This is a pleasant 67-year-old female past medical history significant for coronary artery disease status post stent placement to the LAD in 2017, diabetes mellitus, hypertension, dyslipidemia, lung cancer status post left upper lobe lobectomy, fibromyalgia and chronic nicotine dependence. She follows in the office with Dr. Caldwell. We have been asked to see her in consultation secondary to chest discomfort. She has been experiencing significant dysuria for the previous 3 days. Then yesterday morning when she woke up she felt a heavy sensation in the left precordial region associated with significant diaphoresis. She did not check her temperature at that time and is unsure if she had a fever. For the remainder of the morning she continued to have intermittent heaviness in the chest that was worse when she would like flat with subside when she sat up. There is no radiation to the arm, back, neck or jaw. She denies associated shortness of breath, dizziness, nausea, vomiting or palpitations. She is currently chest pain-free and states she has not had any further symptoms of chest discomfort since arriving at the hospital. She is currently being treated for urinary tract infection. Echocardiogram limited study obtained this morning and reviewed, normal LV function with EF 55-60% and no pericardial effusion noted. EKG reveals sinus mechanism with no acute ST or T wave abnormalities noted. Chest x-ray reveals a linear obesity and elevated left hemidiaphragm likely secondary to scarring stable from previous study. Laboratory data reviewed, CBC unremarkable, sodium 138, potassium 4.6, creatinine 0.66, magnesium 1.9, cardiac enzymes negative 3, triglycerides 499 and urinalysis reveals a moderate amount of leukocyte esterase. Her daily cardiac medications include atorvastatin 20 mg daily, Plavix 75 mg daily, Toprol 25 mg Most recent stress test performed in August 2018 with a Persantine stress test that was negative for reversible cardiac ischemia. At that time she also underwent an echocardiogram revealing preserved LV systolic function with eje ction fraction 55-60% with mild to moderate tricuspid regurgitation. At the time of my exam: CONSTITUTIONAL: Denies fever. Denies chills. EYES: Denies blurred vision. Denies vision changes. Denies eye pain. EARS, NOSE, MOUTH & THROAT: Denies headache. Denies sore throat. Denies ear pain. CARDIOVASCULAR: Denies chest pain. Denies shortness of breath. Denies orthopnea. Denies PND. Denies palpitations. RESPIRATORY: Denies cough. GASTROINTESTINAL: Denies abdominal pain. Denies diarrhea. Denies constipation. Denies nausea. Denies vomiting. MUSCULOSKELETAL: Denies myalgias. INTEGUMENTARY: Denies pruitis. Denies rash. NEUROLOGIC: Denies numbness. Denies tingling. Denies weakness. PSYCHIATRIC: Denies anxiety. Denies depression. ENDOCRINE: Denies fatigue. Denies weight change. Denies polydipsia. Denies polyurina. GENITOURINARY: Denies burning, hematuria or urgency with micturation. HEMATOLOGIC: Denies history of anemia. Denies bleeding. Blood pressure 115/68 heart rate 74 afebrile maintaining oxygen saturation on room air. GENERAL: This is a 68-year-old female in no apparent distress at the time of my examination. HEENT: Head is atraumatic, normocephalic. Pupils are equal, round. Sclerae anicteric. Conjunctivae are clear. Mucous membranes of the mouth are moist. Neck is supple. There is no jugular venous distention. No carotid bruit is heard. LUNGS: Clear to auscultation no wheezes, rales or rhonchi. No chest wall tenderness is noted on palpation or with deep breathing. HEART: Regular rate and rhythm with systolic ejection murmur left sternal border, no rubs or gallops. S1 and S2 heard. ABDOMEN: Soft, nontender. Bowel sounds are heard. No organomegaly noted. EXTREMITIES: No evidence of peripheral edema and no calf tenderness noted. VASCULAR: Radial and dorsalis pedis pulses palpated, no evidence of clubbing. NEUROLOGIC: Patient is awake, alert and oriented x3. ASSESSMENT Chest pain, atypical. An acute coronary event has been ruled out. Recent stress test was negative for reversible ischemia. No wall motion abnormalities noted on echocardiogram. Urinary tract infection History of coronary artery disease status post stent placement to the LAD Diabetes mellitus Hypertension Dyslipidemia PLAN An acute coronary event has been ruled out. Limited echo has been reviewed, no changes or abnormalities appreciated. Initiate fenofibrate 160 mg daily for lowering of triglycerides and increase atrovastatin to 40 mg daily. Lifestyle modifications discussed for lowering of cholesterol and smoking cessation. Ongoing medical management and treatment of UTI. Follow up with Dr. Caldwell upon discharge. We will follows as needed. Thank you kindly for this consultation. Nurse Practitioner note has been reviewed, I agree with a documented findings and plan of care. Patient was seen and examined. Past Medical History Past Medical History: Coronary Artery Disease (CAD), Diabetes Mellitus, Fibromyalgia, GERD/Reflux, Myocardial Infarction ([place]) Additional Past Medical History / Comment(s): Idiopathic thrombocytopenia purpura, IBS, diverticulitis, hiatal hernia, 2 herniated discs-L3/L4, Restless Leg Syndrome, gastritis, superficial gastric ulcers. nodule on lt lung-Cancer Stg 1 Last Myocardial Infarction Date:: 01/2017 History of Any Multi-Drug Resistant Organisms: None Reported Past Surgical History: Adenoidectomy, Bladder Surgery, Bowel Resection, Cholecystectomy, Heart Catheterization With Stent, Hernia Repair, Hysterectomy, Tonsillectomy Additional Past Surgical History / Comment(s): BLADDER SUSPENSION x 2, breast biopsy x3, bowel resection due to rupture. left upper lobe of lung removed per [place], Past Anesthesia/Blood Transfusion Reactions: No Reported Reaction Additional Past Anesthesia/Blood Transfusion Reaction / Comment(s): Pt received blood in 2005 due to ITP without reaction. Date of Last Stent Placement:: 01/2017 Smoking Status: Current every day smoker - Past Family History Mother Family Medical History: Cancer, Diabetes Mellitus Additional Family Medical History / Comment(s): Father had a defibrillator. He of heart dx in his 80's Father Family Medical History: Diabetes Mellitus Additional Family Medical History / Comment(s): HEART DISEASE Medications and Allergies Home Medications Medication Instructions Recorded Confirmed Type ALPRAZolam 0.25 mg PO AC-BID PRN 11/03/15 01/13/19 History rOPINIRole HCL [Requip] 0.5 mg PO HS 04/12/16 01/13/19 History Pantoprazole [Protonix] 40 mg PO DAILY 01/14/17 01/13/19 History Clopidogrel Bisulfate [Plavix] 75 mg PO DAILY 06/26/17 01/13/19 History Budesonide-Formot 160-4.5 Mcg 2 puff INHALATION RT-BID 08/31/17 01/13/19 History [Symbicort 160-4.5 Mcg Inhaler] Ipratropium/Albuterol Sulfate 2 puff INHALATION RT-DAILY 08/31/17 01/13/19 History [Combivent Respimat Inhaler] HYDROcodone/APAP 10-325MG [[place] 1 tab PO TID PRN 08/19/18 01/13/19 History 10-325] Insulin Detemir (Levemir) [Levemir] See Protocol SQ DAILY 08/27/18 01/13/19 History INSULIN ASPART (NovoLOG) [NovoLOG See Protocol SQ AC-TID 09/07/18 01/13/19 History (formulary)] traZODone HCL 50 mg PO HS 09/07/18 01/13/19 History Atorvastatin [Lipitor] 20 mg PO HS 01/13/19 01/13/19 History Loperamide [Imodium] 2 mg PO TID PRN 01/13/19 01/13/19 History Metoprolol Succinate (ER) [Toprol 25 mg PO AC-SUPPER 01/13/19 01/13/19 History Xl] Mirabegron [Myrbetriq] 25 mg PO AC-SUPPER 01/13/19 01/13/19 History Allergies Allergy/AdvReac Type Severity Reaction Status Date / Time No Known Allergies Allergy Verified 01/13/19 21:42 Physical Exam Vitals: Vital Signs Temp Pulse Pulse Resp BP BP Pulse Ox 01/14/19 07:35 97.7 F 84 18 99/58 96 01/14/19 07:25 92 01/14/19 07:15 92 01/14/19 04:00 97.9 F 75 18 116/68 94 L 01/14/19 03:35 18 01/13/19 23:24 97.8 F 94 90 18 137/68 96 01/13/19 23:22 18 01/13/19 23:17 96 18 01/13/19 20:00 18 01/13/19 19:52 88 18 136/54 96 01/13/19 18:19 85 18 124/58 98 01/13/19 16:16 98.0 F 88 16 135/71 98 Intake and Output 01/13/19 01/14/19 01/14/19 22:59 06:59 14:59 Intake Total 63.762 Balance 63.762 Intake: Intake, IV Titration 63.762 Amount Heparin Sod,Pork in 0.45% 63.762 NaCl 25,000 unit In 0.45 % NaCl 1 250ml.bag @ 12 UNITS/KG/HR 5.987 mls/hr IV .Q24H REY Rx#: [id number] Other: # Voids 1 1 Weight 49.895 kg Results 01/13/19 17:35 01/13/19 17:35 Cardiac Enzymes 01/13/19 01/13/19 01/13/19 Range/Units 17:35 17:35 23:57 AST 14 (14-36) U/L Troponin I <0.012 <0.012 (0.000-0.034) ng/mL 01/14/19 Range/Units 06:04 AST (14-36) U/L Troponin I <0.012 (0.000-0.034) ng/mL Coagulation 01/13/19 01/14/19 Range/Units 17:35 02:17 PT 9.4 (9.0-12.0) sec APTT 23.1 24.8 (22.0-30.0) sec Lipids 01/14/19 Range/Units 06:04 Triglycerides 499 H (<150) mg/dL Cholesterol 119 (<200) mg/dL HDL Cholesterol 29 L (40-60) mg/dL CBC 01/13/19 Range/Units 17:35 WBC 10.5 (3.8-10.6) k/uL RBC 5.17 (3.80-5.40) m/uL Hgb 13.7 (11.4-16.0) gm/dL Hct 43.9 (34.0-46.0) % Plt Count 381 (150-450) k/uL Comprehensive Metabolic Panel 01/13/19 Range/Units 17:35 Sodium 138 (137-145) mmol/L Potassium 4.6 (3.5-5.1) mmol/L Chloride 102 (98-107) mmol/L Carbon Dioxide 26 (22-30) mmol/L BUN 19 H (7-17) mg/dL Creatinine 0.66 (0.52-1.04) mg/dL Glucose 194 H (74-99) mg/dL Calcium 10.1 (8.4-10.2) mg/dL AST 14 (14-36) U/L ALT 21 (9-52) U/L Alkaline Phosphatase 146 H (38-126) U/L Total Protein 7.0 (6.3-8.2) g/dL Albumin 4.0 (3.5-5.0) g/dL Current Medications Generic Name Dose Route Start Last Admin Trade Name Freq PRN Reason Stop Dose Admin Hydrocodone Bitart/Acetaminophen 1 each 01/13/19 22:16 01/13/19 22:34 [place] 10 PO 1 each TID PRN Administration Pain Albuterol/Ipratropium 3 ml 01/14/19 08:00 01/14/19 07:15 Duoneb 0.5 Mg-3 Mg/3 Ml Soln INHALATION 3 ml RT-DAILY REY Administration Albuterol/Ipratropium 3 ml 01/13/19 22:47 01/13/19 23:17 Duoneb 0.5 Mg-3 Mg/3 Ml Soln INHALATION 3 ml RT-Q2H PRN Administration Shortness Of Breath Or Wheezing Alprazolam 0.25 mg 01/13/19 22:16 Xanax PO AC-BID PRN Anxiety Aspirin 325 mg 01/14/19 09:00 Aspirin PO DAILY [facility] Atorvastatin Calcium 20 mg 01/13/19 22:30 01/13/19 22:34 Lipitor PO 20 mg HS REY Administration Budesonide/Formoterol Fumarate 2 puff 01/14/19 08:00 01/14/19 07:14 Symbicort 160-4.5 Mcg Inhaler INHALATION 2 puff RT-BID REY Administration Clopidogrel Bisulfate 75 mg 01/14/19 09:00 Plavix PO DAILY [facility] Heparin Sodium/Sodium Chloride 250 mls @ 5.987 mls/hr 01/13/19 19:00 01/14/19 06:30 25,000 unit/ Sodium Chloride IV 15 units/kg/hr .Q24H REY 7.484 mls/hr Titration Protocol 12 UNITS/KG/HR Insulin Aspart 0 unit 01/14/19 07:30 Novolog SQ AC-TID [facility] Protocol Loperamide HCl 2 mg 01/13/19 22:16 Imodium PO TID PRN Diarrhea Melatonin 3 mg 01/13/19 22:30 01/13/19 22:34 Melatonin PO 3 mg HS REY Administration Metoprolol Succinate 25 mg 01/13/19 22:30 01/13/19 22:55 Toprol Xl PO 25 mg AC-SUPPER REY Administration Nitroglycerin 0.4 mg 01/13/19 18:55 Nitrostat SUBLINGUAL Q5M PRN Chest Pain Nitroglycerin 1 inch 01/14/19 00:00 01/14/19 03:41 Nitro-Bid Oint TOPICAL Not Given Q6HR [facility] Mirabegron [ 25 mg 01/13/19 22:30 01/13/19 22:36 Myrbetriq] 25 Mg PO Not Given AC-SUPPER [facility] Pantoprazole Sodium 40 mg 01/14/19 09:00 Protonix PO DAILY [facility] Ropinirole HCl 0.5 mg 01/13/19 22:30 01/13/19 22:55 Requip PO 0.5 mg HS REY Administration Trazodone HCl 50 mg 01/13/19 22:30 01/13/19 22:35 Desyrel PO 50 mg HS REY Administration Intake and Output 01/13/19 01/14/19 01/14/19 22:59 06:59 14:59 Intake Total 63.762 Balance 63.762 Intake: Intake, IV Titration 63.762 Amount Heparin Sod,Pork in 0.45% 63.762 NaCl 25,000 unit In 0.45 % NaCl 1 250ml.bag @ 12 UNITS/KG/HR 5.987 mls/hr IV .Q24H [facility] Rx#: [id number] Other: # Voids 1 1 Weight 49.895 kg 01/13/19 17:35 01/13/19 17:35
[2019-01-14] MEDS: FENOFIBRATE 160 MG TAB PO SCH (14:29)
[2019-01-14 16:32] LABS: Glucose,Whole Blood 275 mg/dL (75-99)
[2019-01-14] MEDS: Mirabegron [Myrbetriq] 25 MG PO SCH (17:06)
[2019-01-14] MEDS: METOPROLOL SUCCINATE (ER) 25 MG TAB.ER.24H PO SCH (17:07)
[2019-01-14] MEDS: traZODone HCL 50 MG TAB PO SCH (20:24)
[2019-01-14] MEDS: HYDROcodone/APAP 10-325MG 1 EACH TAB PO PRN (20:24)
[2019-01-14 20:29] LABS: Glucose,Whole Blood 212 mg/dL (75-99)
[2019-01-14] MEDS ORDERED: ATORVASTATIN 40 MG TAB PO SCH (21:00)
[2019-01-14] MEDS: MELATONIN 3 MG TABLET PO SCH (21:02)
--- NOTE | 2019-01-14 23:19 | P.HPIM ---
History of Present Illness H&P Date: 01/14/19 Chief Complaint: Chest heaviness History of presenting complaint: This is a pleasant 68-year-old patient of Dr. engel from [place]. Chronic stable medical conditions include coronary artery disease with stent, diabetes type 2, fibromyalgia, GERD, ITP, irritable bowel syndrome, hiatal hernia, chronic herniated disc at L3-L4, restless leg syndrome, gastritis. Patient presented with episodes of chest heaviness coming on for one day. Presented on and off. Pain across her chest. More pressure-like. Questionable related to activity. Also ready clammy and perspiring heavily. No shortness of breath. No dizziness. No lightheadedness. Patient also been having some suprapubic tenderness and urinary frequency. No fever no chills. Review of systems: GEN.: Tired EYES: None HEENT: None NECK: None RESPIRATORY: None CARDIOVASCULAR: As above GASTROINTESTINAL: As above GENITOURINARY: Urinary frequency MUSCULOSKELETAL: Chronic low back pain, pain in the joints LYMPHATICS: None HEMATOLOGICAL: None PSYCHIATRY: None NEUROLOGICAL: None Past medical history: Coronary artery disease with stent, diabetes mellitus type 2, fibromyalgia, GERD, ITP, irritable bowel syndrome, hiatal hernia, herniated disc at L3-L4, restless leg syndrome, gastritis Social history: Smoked for 47 years a pack a day down to a few cigarettes a day. No alcohol. Lives alone Physical examination: VITAL SIGNS: 98, 88, 16, 135/71, 98% room air GENERAL: BMI 20.1, laying in bed not in distress EYES: Pupils equal. Conjunctiva normal. HEENT: External appearance of nose and ears normal, oral cavity dry with NG tube in place. NECK: JVD not raised; masses not palpable. HEART: First and second heart sounds are normal; no edema. LUNGS: Respiratory rate increased; decreased breath sounds. Some wheezing ABDOMEN: Soft, mild suprapubic tenderness, no guarding or rigidity, liver spleen not palpable, no masses palpable. PSYCH: [Alert and oriented x3; mood and affect anxious NEUROLOGICAL: Cranial nerves grossly intact; no facial asymmetry, power and sensation grossly intact. LYMPHATICS: No lymph nodes palpable in the axilla and neck MUSCULOSKELETAL: Evidence of OA INVESTIGATIONS, reviewed in the clinical context: White count 10.5 hemoglobin 13.7 platelets 381 potassium 4.6 creatinine 0.66 Troponin I 2 negative UA positive for leukoesterase, WBC EKG tracing personally reviewed by me-normal sinus rhythm Chest x-ray film personally reviewed by me-hyperinflation, elevated left diaphragm. Per report this is chronic unchanged from October Assessment: -Possible unstable angina in a patient with known coronary artery disease -Coronary artery disease with stent COPD in a current smoker -Chronic nicotine dependence patient cigarette smoker -Diabetes mellitus type 2 -Chronic fibromyalgia -GERD -Chronic ITP -Irritable bowel syndrome -Chronic hiatal hernia -Chronic herniated disc at L3-L4 -Restless leg syndrome -Primary osteoarthritis Plan: Cardiology was consulted. Home medications are reviewed. Troponins have been negative. Urine cultures pending. IV ceftriaxone will be started. Patient advised against smoking. We'll give an nicotine patch. Lovenox for DVT prophylaxis. Past Medical History Past Medical History: Coronary Artery Disease (CAD), Diabetes Mellitus, Fibromyalgia, GERD/Reflux, Myocardial Infarction ([place]) Additional Past Medical History / Comment(s): Idiopathic thrombocytopenia purpura, IBS, diverticulitis, hiatal hernia, 2 herniated discs-L3/L4, Restless Leg Syndrome, gastritis, superficial gastric ulcers. nodule on lt lung-Cancer Stg 1 Last Myocardial Infarction Date:: 01/2017 History of Any Multi-Drug Resistant Organisms: None Reported Past Surgical History: Adenoidectomy, Bladder Surgery, Bowel Resection, Cholecystectomy, Heart Catheterization With Stent, Hernia Repair, Hysterectomy, Tonsillectomy Additional Past Surgical History / Comment(s): BLADDER SUSPENSION x 2, breast biopsy x3, bowel resection due to rupture. left upper lobe of lung removed per CA, Past Anesthesia/Blood Transfusion Reactions: No Reported Reaction Additional Past Anesthesia/Blood Transfusion Reaction / Comment(s): Pt received blood in 2005 due to ITP without reaction. Date of Last Stent Placement:: 01/2017 Smoking Status: Current every day smoker - Past Family History Mother Family Medical History: Cancer, Diabetes Mellitus Additional Family Medical History / Comment(s): Father had a defibrillator. He of heart dx in his 80's Father Family Medical History: Diabetes Mellitus Additional Family Medical History / Comment(s): HEART DISEASE Medications and Allergies Home Medications Medication Instructions Recorded Confirmed Type ALPRAZolam 0.25 mg PO AC-BID PRN 11/03/15 01/13/19 History rOPINIRole HCL [Requip] 0.5 mg PO HS 04/12/16 01/13/19 History Pantoprazole [Protonix] 40 mg PO DAILY 01/14/17 01/13/19 History Clopidogrel Bisulfate [Plavix] 75 mg PO DAILY 06/26/17 01/13/19 History Budesonide-Formot 160-4.5 Mcg 2 puff INHALATION RT-BID 08/31/17 01/13/19 History [Symbicort 160-4.5 Mcg Inhaler] Ipratropium/Albuterol Sulfate 2 puff INHALATION RT-DAILY 08/31/17 01/13/19 History [Combivent Respimat Inhaler] HYDROcodone/APAP 10-325MG [[place] 1 tab PO TID PRN 08/19/18 01/13/19 History 10-325] Insulin Detemir (Levemir) [Levemir] See Protocol SQ DAILY 08/27/18 01/13/19 History INSULIN ASPART (NovoLOG) [NovoLOG See Protocol SQ AC-TID 09/07/18 01/13/19 History (formulary)] traZODone HCL 50 mg PO HS 09/07/18 01/13/19 History Atorvastatin [Lipitor] 20 mg PO HS 01/13/19 01/13/19 History Loperamide [Imodium] 2 mg PO TID PRN 01/13/19 01/13/19 History Metoprolol Succinate (ER) [Toprol 25 mg PO AC-SUPPER 01/13/19 01/13/19 History Xl] Mirabegron [Myrbetriq] 25 mg PO AC-SUPPER 01/13/19 01/13/19 History Allergies Allergy/AdvReac Type Severity Reaction Status Date / Time No Known Allergies Allergy Verified 01/13/19 21:42 Physical Exam Vitals: Vital Signs Temp Pulse Pulse Resp BP BP BP 01/14/19 11:11 97.6 F 74 18 115/68 01/14/19 08:00 84 18 01/14/19 07:35 97.7 F 84 18 99/58 01/14/19 07:25 72 01/14/19 07:15 72 01/14/19 04:00 97.9 F 75 18 116/68 01/14/19 03:35 18 01/13/19 23:24 97.8 F 94 90 18 137/68 01/13/19 23:22 18 01/13/19 23:17 96 18 01/13/19 20:00 18 01/13/19 19:52 88 18 136/54 01/13/19 18:19 85 18 124/58 01/13/19 16:16 98.0 F 88 16 135/71 Pulse Ox 01/14/19 11:11 97 01/14/19 08:00 01/14/19 07:35 96 01/14/19 07:25 01/14/19 07:15 01/14/19 04:00 94 L 01/14/19 03:35 01/13/19 23:24 96 01/13/19 23:22 01/13/19 23:17 01/13/19 20:00 01/13/19 19:52 96 01/13/19 18:19 98 01/13/19 16:16 98 Intake and Output 01/13/19 01/14/19 01/14/19 22:59 06:59 14:59 Intake Total 63.762 Balance 63.762 Intake: Intake, IV Titration 63.762 Amount Heparin Sod,Pork in 0.45% 63.762 NaCl 25,000 unit In 0.45 % NaCl 1 250ml.bag @ 12 UNITS/KG/HR 5.987 mls/hr IV .[facility] Rx#: [id number] Other: # Voids 1 1 Weight 49.895 kg Results CBC & Chem 7: 01/13/19 17:35 01/13/19 17:35 Labs: Abnormal Lab Results - Last 24 Hours (Table) 01/13/19 01/13/19 01/14/19 Range/Units 17:35 18:17 06:04 BUN 19 H (7-17) mg/dL Glucose 194 H (74-99) mg/dL POC Glucose (mg/dL) (75-99) mg/dL Alkaline Phosphatase 146 H (38-126) U/L Triglycerides 499 H (<150) mg/dL HDL Cholesterol 29 L (40-60) mg/dL Urine Protein Trace H (Negative) Urine Glucose (UA) 3+ H (Negative) Urine Blood Trace H (Negative) Ur Leukocyte Esterase Moderate H (Negative) Urine WBC 42 H (0-5) /hpf Ur Squamous Epith Cells 8 H (0-4) /hpf Urine Mucus Rare H (None) /hpf 01/14/19 01/14/19 Range/Units 06:37 11:32 BUN (7-17) mg/dL Glucose (74-99) mg/dL POC Glucose (mg/dL) 267 H 247 H (75-99) mg/dL Alkaline Phosphatase (38-126) U/L Triglycerides (<150) mg/dL HDL Cholesterol (40-60) mg/dL Urine Protein (Negative) Urine Glucose (UA) (Negative) Urine Blood (Negative) Ur Leukocyte Esterase (Negative) Urine WBC (0-5) /hpf Ur Squamous Epith Cells (0-4) /hpf Urine Mucus (None) /hpf Microbiology - Last 24 Hours (Table) 01/13/19 18:17 Urine Culture - Preliminary Urine,Voided Thrombosis Risk Factor Assmnt - Choose All That Apply Each Risk Factor Represents 2 Points: Age 61-74 years Thrombosis Risk Factor Assessment Total Risk Factor Score: 2 Thrombosis Risk Factor Assessment Level: Low Risk
[2019-01-14] MEDS: NICOTINE 14MG/24HR PATCH TRANSDERM SCH (23:27)
[2019-01-15] MEDS: HYDROcodone/APAP 10-325MG 1 EACH TAB PO PRN (03:44)
[2019-01-15 06:56] LABS: Glucose,Whole Blood 228 mg/dL (75-99)
[2019-01-15 07:17] VITALS: BP 116/46; TEMP 97.7
[2019-01-15] MEDS: IPRATROPIUM-ALBUTEROL 3 ML NEB INHALATION SCH (07:35)
[2019-01-15] MEDS: SYMBICORT 160-4.5 MCG INHALER INHALATION SCH (07:35)
[2019-01-15] MEDS: FENOFIBRATE 160 MG TAB PO SCH (08:11)
[2019-01-15] MEDS: CLOPIDOGREL 75 MG TAB PO SCH (08:11)
[2019-01-15] MEDS: INSULIN ASPART (NovoLOG) 100 UNIT/ML VIAL SQ SCH ×2 (08:11→12:41)
[2019-01-15] MEDS: NICOTINE 14MG/24HR PATCH TRANSDERM SCH (08:11)
[2019-01-15] MEDS: PANTOPRAZOLE 40 MG TABLET PO SCH (08:11)
[2019-01-15] MEDS: ASPIRIN 81 MG PO SCH (08:11)
[2019-01-15 09:18] VITALS: PULSE 62
[2019-01-15 11:57] LABS: Glucose,Whole Blood 299 mg/dL (75-99)
[2019-01-15] MEDS ORDERED: CEPHALEXIN 250 MG CAP PO STA (12:32)
--- NOTE | 2019-01-15 22:47 | P.DS ---
Providers Date of admission: 01/13/19 19:07 Expected date of discharge: 01/15/19 Attending physician: Elmer Monteiro Consults: 01/13/19 18:55 Consult Physician Urgent Consulting Provider: [facility] Consult Reason/Comments: Unstable angina Do you want consulting provider notified?: Yes Primary care physician: Nick Brock [place] Hospital Course: Chief Complaint: Chest heaviness Hospital course: This is a pleasant 68-year-old patient of Dr. brock from [place]. Chronic stable medical conditions include coronary artery disease with stent, diabetes type 2, fibromyalgia, GERD, ITP, irritable bowel syndrome, hiatal hernia, chronic herniated disc at L3-L4, restless leg syndrome, gastritis. Patient presented with episodes of chest heaviness coming on for one day. Presented on and off. Pain across her chest. More pressure-like. Questionable related to activity. Also clammy and perspiring heavily. No shortness of breath. No dizziness. No lightheadedness. Patient also been having some suprapubic tenderness and urinary frequency. No fever no chills. troponins were negative. 2-D echo showed a preserved LV function. No wall motion abnormality. Treated for UTI.seen by cardiology. Patient recent stress test was negative. Patient advised about smoking cessation and I some modification. Lipid-lowering medications were adjusted. Consultation: Jennifer from cardiology Physical examination: VITAL SIGNS: 37.7, 62, 18, 11 6/46, 96% room air GENERAL: sitting up, comfortable EYES: Pupils equal. Conjunctiva normal. HEENT: External appearance of nose and ears normal, oral cavity dry with NG tube in place. NECK: JVD not raised; masses not palpable. HEART: First and second heart sounds are normal; no edema. LUNGS: Respiratory rate increased; decreased breath sounds. ABDOMEN: Soft, mild suprapubic tenderness, no guarding or rigidity, liver spleen not palpable, no masses palpable. PSYCH: [Alert and oriented x3; mood and affect normale MUSCULOSKELETAL: Evidence of OA INVESTIGATIONS, reviewed in the clinical context: White count 10.5 hemoglobin 13.7 platelets 381 potassium 4.6 creatinine 0.66 Troponin I 2 negative UA positive for leukoesterase, WBC EKG tracing personally reviewed by me-normal sinus rhythm Chest x-ray film personally reviewed by me-hyperinflation, elevated left diaphragm. Per report this is chronic unchanged from October 25- echo-855-60%, no wall motion abnormality discharge diagnosis: -anterior chest wall pain could be musculoskeletal -Acute UTI from cystitis, but cultures negative -Coronary artery disease with stent -COPD in a current smoker -Chronic nicotine dependence patient cigarette smoker -Diabetes mellitus type 2 -Chronic fibromyalgia -GERD -Chronic ITP -Irritable bowel syndrome -Chronic hiatal hernia -Chronic herniated disc at L3-L4 -Restless leg syndrome -Primary osteoarthritis disposition: Home Patient Condition at Discharge: Stable Plan - Discharge Summary New Discharge Prescriptions: New Aspirin 81 mg PO DAILY chew Nicotine 14Mg/24Hr Patch [Habitrol] 1 patch TRANSDERM DAILY #14 patch Cephalexin [Keflex] 250 mg PO Q6HR #12 cap Atorvastatin [Lipitor] 40 mg PO HS #30 tab Fenofibrate [Lofibra] 160 mg PO DAILY #30 tab Melatonin 3 mg PO HS tablet Nitroglycerin Sl Tabs [Nitrostat] 0.4 mg SUBLINGUAL Q5M PRN #25 tab PRN Reason: Chest Pain Continue ALPRAZolam 0.25 mg PO AC-BID PRN PRN Reason: Anxiety rOPINIRole HCL [Requip] 0.5 mg PO HS Pantoprazole [Protonix] 40 mg PO DAILY Clopidogrel Bisulfate [Plavix] 75 mg PO DAILY Ipratropium/Albuterol Sulfate [Combivent Respimat Inhaler] 2 puff INHALATION RT-DAILY Budesonide-Formot 160-4.5 Mcg [Symbicort 160-4.5 Mcg Inhaler] 2 puff INHALATION RT-BID HYDROcodone/APAP 10-325MG [[place] 10-325] 1 tab PO TID PRN PRN Reason: Pain Insulin Detemir (Levemir) [Levemir] See Protocol SQ DAILY INSULIN ASPART (NovoLOG) [NovoLOG (formulary)] See Protocol SQ AC-TID traZODone HCL 50 mg PO HS Metoprolol Succinate (ER) [Toprol XL] 25 mg PO AC-SUPPER Loperamide [Imodium] 2 mg PO TID PRN PRN Reason: Diarrhea Mirabegron [Myrbetriq] 25 mg PO AC-SUPPER Discontinued Atorvastatin [Lipitor] 20 mg PO HS Discharge Medication List ALPRAZolam 0.25 mg PO AC-BID PRN 11/03/15 [History] rOPINIRole HCL [Requip] 0.5 mg PO HS 04/12/16 [History] Pantoprazole [Protonix] 40 mg PO DAILY 01/14/17 [History] Clopidogrel Bisulfate [Plavix] 75 mg PO DAILY 06/26/17 [History] Budesonide-Formot 160-4.5 Mcg [Symbicort 160-4.5 Mcg Inhaler] 2 puff INHALATION RT-BID 08/31/17 [History] Ipratropium/Albuterol Sulfate [Combivent Respimat Inhaler] 2 puff INHALATION RT- DAILY 08/31/17 [History] HYDROcodone/APAP 10-325MG [[place] 10-325] 1 tab PO TID PRN 08/19/18 [History] Insulin Detemir (Levemir) [Levemir] See Protocol SQ DAILY 08/27/18 [History] INSULIN ASPART (NovoLOG) [NovoLOG (formulary)] See Protocol SQ AC-TID 09/07/18 [History] traZODone HCL 50 mg PO HS 09/07/18 [History] Loperamide [Imodium] 2 mg PO TID PRN 01/13/19 [History] Metoprolol Succinate (ER) [Toprol XL] 25 mg PO AC-SUPPER 01/13/19 [History] Mirabegron [Myrbetriq] 25 mg PO AC-SUPPER 01/13/19 [History] Aspirin 81 mg PO DAILY chew 01/15/19 [Rx] Atorvastatin [Lipitor] 40 mg PO HS #30 tab 01/15/19 [Rx] Cephalexin [Keflex] 250 mg PO Q6HR #12 cap 01/15/19 [Rx] Fenofibrate [Lofibra] 160 mg PO DAILY #30 tab 01/15/19 [Rx] Melatonin 3 mg PO HS tablet 01/15/19 [Rx] Nicotine 14Mg/24Hr Patch [Habitrol] 1 patch TRANSDERM DAILY #14 patch 01/15/19 [Rx] Nitroglycerin Sl Tabs [Nitrostat] 0.4 mg SUBLINGUAL Q5M PRN #25 tab 01/15/19 [Rx] Follow up Appointment(s)/Referral(s): Nick Brock MD [Primary Care Provider] - 1-2 days Sony Caldwell MD [STAFF PHYSICIAN] - 2 Weeks ([facility] will call wiht a two week follow up appointment with )
== END 2019-01-15 13:02 ==
LOC: EC 16:14 → 1SOBS 19:07
PROVIDERS: ADMIT Hospitalist; ATTEND Hospitalist
DX: R07.89 Other chest pain (principal); N30.90 Cystitis, unspecified without hematuria; I25.10 Atherosclerotic heart disease of native coronary artery without angina pectoris; I10 Essential (primary) hypertension; E78.5 Hyperlipidemia, unspecified; R61 Generalized hyperhidrosis; I07.1 Rheumatic tricuspid insufficiency; J44.9 Chronic obstructive pulmonary disease, unspecified; F17.210 Nicotine dependence, cigarettes, uncomplicated; M79.7 Fibromyalgia; K21.9 Gastro-esophageal reflux disease without esophagitis; D69.3 Immune thrombocytopenic purpura; K58.9 Irritable bowel syndrome, unspecified; E11.9 Type 2 diabetes mellitus without complications; K44.9 Diaphragmatic hernia without obstruction or gangrene; G89.29 Other chronic pain; M51.26 Other intervertebral disc displacement, lumbar region; G25.81 Restless legs syndrome; M19.91 Primary osteoarthritis, unspecified site; F41.9 Anxiety disorder, unspecified; Z79.02 Long term (current) use of antithrombotics/antiplatelets; Z79.51 Long term (current) use of inhaled steroids; Z79.4 Long term (current) use of insulin; Z79.891 Long term (current) use of opiate analgesic; Z79.899 Other long term (current) drug therapy; Z95.5 Presence of coronary angioplasty implant and graft; Z87.19 Personal history of other diseases of the digestive system; Z85.118 Personal history of other malignant neoplasm of bronchus and lung; Z90.2 Acquired absence of lung [part of]; I25.2 Old myocardial infarction; Z87.11 Personal history of peptic ulcer disease; Z90.49 Acquired absence of other specified parts of digestive tract; Z90.710 Acquired absence of both cervix and uterus; Z83.3 Family history of diabetes mellitus; Z80.9 Family history of malignant neoplasm, unspecified; Z82.49 Family history of ischemic heart disease and other diseases of the circulatory system
CPT/HCPCS: 93005 ×2; 96366 ×3; 96367; 96376; 96365; 99291; 36415; 94640 ×5; 93308; 80061; 80053; 82150; 83605; 83690; 83735; 84484 ×2; 85025; 85610; 85730 ×2; 81001; 87040; 87086; 71046; G0378 ×3; S4990; J1644 ×2; J0696 ×2

== ENCOUNTER → 2019-05-08 | Outpatient (CLI) | payer MEDICARE, OTHER ==
[2019-05-08 13:07] LABS: African American GFR (CKD) >90 (>60 ml/min/1.73 sqM); Blood Urea Nitrogen 20 mg/dL (7-17); Non-African American GFR(CKD) 88 (>60 ml/min/1.73 sqM)
--- NOTE | 2019-05-08 14:50 | CT ---
EXAMINATION TYPE: CT ChestAbdPelvis w con DATE OF EXAM: 05/08/2019 COMPARISON: October 28, 2018 HISTORY: Lung cancer follow up. CT DLP: 624.5 mGycm CONTRAST: CT scan of the chest, abdomen and pelvis is performed with Oral Contrast and with IV Contrast, patien t injected with 100 mL of Isovue M300. CT Chest: LUNGS: Mild elevation left hemidiaphragm. Upper lobe emphysematous changes identified. No evidence fo r recurrent or residual mass at this time. The lungs are clear and free of infiltrate or atelectasis. No pleural effusion or CT evidence of interstitial lung disease. MEDIASTINUM: Thoracic aorta is of normal caliber. The heart is not enlarged. No evidence for media stinal mass or adenopathy. HILAR STRUCTURES: No evidence for mass. No hilar adenopathy is appreciated. OTHER: Solid right breast mass is noted measuring 1.9 cm. Ultrasound and mammographic correlation is advised. CONTRAST CT ABDOMEN AND PELVIS FINDINGS: LIVER/GB: No calcified gallstones. No space occupying hepatic lesion. Biliary tree is of normal ca liber. PANCREAS: No inflammation. No distinct mass. SPLEEN: No splenic enlargement. No lesion seen. ADRENALS: No nodule. No thickening. KIDNEYS/BLADDER: No hydronephrosis. No nephrolithiasis. No distinct renal mass. Partial resection distal small bowel. No obstructive change. BOWEL: Normal appendix. Normal bowel caliber. No inflammation. GENITAL ORGANS: Hysterectomy changes identified. LYMPH NODES: No greater than 1cm abdominal or pelvic lymph nodes are appreciated. AORTA: No significant abnormality. OSSEOUS STRUCTURES: No significant abnormality is seen. OTHER: No significant additional abnormality is seen. IMPRESSION: 1. No evidence for residual or recurrent disease within the chest. 2. Right breast mass as discussed. Sonographic and mammographic correlation recommended.
== END | disposition home or self-care (01) ==
LOC: RADCTMAIN 12:19
PROVIDERS: ATTEND Internal Medicine Hematology & Oncology
DX: N63.10 Unspecified lump in the right breast, unspecified quadrant (principal); C34.90 Malignant neoplasm of unspecified part of unspecified bronchus or lung
CPT/HCPCS: 82565; 84520; 71260; 74177; 36415; Q9967 ×2

== ENCOUNTER 2019-07-27 15:40 | Emergency (ER) | payer MEDICARE, OTHER ==
[2019-07-27 15:45] VITALS: TEMP 97.8
[2019-07-27] MEDS ORDERED: KETOROLAC 30 MG/ML 1 ML VIAL IM STA (16:50)
--- NOTE | 2019-07-27 16:55 | ED ---
General Adult HPI - General Chief complaint: Extremity Problem,Nontraumatic Stated complaint: legs hurt Time Seen by Provider: 07/27/19 15:40 Source: patient, RN notes reviewed, old records reviewed Mode of arrival: ambulatory Limitations: no limitations - History of Present Illness Initial comments: This is a 68-year-old female who comes into the emergency department complaining of bilateral leg pain below her knees to her feet. Patient states she's had this many times before and it's her restless leg syndrome. Patient states she ran out of her Requip to. Case ago and ever since then the pain is gotten a lot worse. Patient would like a prescription for Requip if she could. Patient denies any new injury. Patient states both legs are equally. Patient denies any swelling patient is any redness. Patient denies any recent fever chills. - Related Data Home Medications Medication Instructions Recorded Confirmed ALPRAZolam 0.25 mg PO AC-BID PRN 11/03/15 01/13/19 rOPINIRole HCL [Requip] 0.5 mg PO HS 04/12/16 01/13/19 Pantoprazole [Protonix] 40 mg PO DAILY 01/14/17 01/13/19 Clopidogrel Bisulfate [Plavix] 75 mg PO DAILY 06/26/17 01/13/19 Budesonide-Formot 160-4.5 Mcg 2 puff INHALATION RT-BID 08/31/17 01/13/19 [Symbicort 160-4.5 Mcg Inhaler] Ipratropium/Albuterol Sulfate 2 puff INHALATION RT-DAILY 08/31/17 01/13/19 [Combivent Respimat Inhaler] HYDROcodone/APAP 10-325MG [[place] 1 tab PO TID PRN 08/19/18 01/13/19 10-325] Insulin Detemir (Levemir) [Levemir] See Protocol SQ DAILY 08/27/18 01/13/19 INSULIN ASPART (NovoLOG) [[place]ovoLOG See Protocol SQ AC-TID 09/07/18 01/13/19 (formulary)] traZODone HCL 50 mg PO HS 09/07/18 01/13/19 Loperamide [Imodium] 2 mg PO TID PRN 01/13/19 01/13/19 Metoprolol Succinate (ER) [Toprol 25 mg PO AC-SUPPER 01/13/19 01/13/19 XL] Mirabegron [Myrbetriq] 25 mg PO AC-SUPPER 01/13/19 01/13/19 Previous Rx's Medication Instructions Recorded Aspirin 81 mg PO DAILY chew 01/15/19 Atorvastatin [Lipitor] 40 mg PO HS #30 tab 01/15/19 Cephalexin [Keflex] 250 mg PO Q6HR #12 cap 01/15/19 Fenofibrate [Lofibra] 160 mg PO DAILY #30 tab 01/15/19 Melatonin 3 mg PO HS tablet 01/15/19 Nicotine 14Mg/24Hr Patch [Habitrol] 1 patch TRANSDERM DAILY #14 patch 01/15/19 Nitroglycerin Sl Tabs [Nitrostat] 0.4 mg SUBLINGUAL Q5M PRN #25 tab 01/15/19 rOPINIRole HCL [Requip] 0.25 mg PO TID #21 tablet 07/27/19 Allergies Allergy/AdvReac Type Severity Reaction Status Date / Time No Known Allergies Allergy Verified 07/27/19 15:45 Review of Systems ROS Statement: Those systems with pertinent positive or pertinent negative responses have been documented in the HPI. ROS Other: All systems not noted in ROS Statement are negative. Past Medical History Past Medical History: Coronary Artery Disease (CAD), Diabetes Mellitus, Fibromyalgia, GERD/Reflux, Myocardial Infarction ([place]) Additional Past Medical History / Comment(s): Idiopathic thrombocytopenia purpura, IBS, diverticulitis, hiatal hernia, 2 herniated discs-L3/L4, Restless Leg Syndrome, gastritis, superficial gastric ulcers. nodule on lt lung-Cancer Stg 1 Last Myocardial Infarction Date:: 01/2017 History of Any Multi-Drug Resistant Organisms: None Reported Past Surgical History: Adenoidectomy, Bladder Surgery, Bowel Resection, Cholecystectomy, Heart Catheterization With Stent, Hernia Repair, Hysterectomy, Tonsillectomy Additional Past Surgical History / Comment(s): BLADDER SUSPENSION x 2, breast biopsy x3, bowel resection due to rupture. left upper lobe of lung removed per [place], Past Anesthesia/Blood Transfusion Reactions: No Reported Reaction Additional Past Anesthesia/Blood Transfusion Reaction / Comment(s): Pt received blood in 2005 due to ITP without reaction. Date of Last Stent Placement:: 01/2017 Past Psychological History: Anxiety Smoking Status: Current every day smoker Past Alcohol Use History: None Reported Past Drug Use History: None Reported - Past Family History Mother Family Medical History: Cancer, Diabetes Mellitus Additional Family Medical History / Comment(s): Father had a defibrillator. He of heart dx in his 80's Father Family Medical History: Diabetes Mellitus Additional Family Medical History / Comment(s): HEART DISEASE General Exam - General Exam Comments Initial Comments: GENERAL: Patient is well-developed and well-nourished. Patient is nontoxic and well- hydrated and is in mild distress. ENT: Neck is soft and supple. No significant lymphadenopathy is noted. Oropharynx is clear. Moist mucous membranes. Neck has full range of motion without eliciting any pain. EYES: The sclera were anicteric and conjunctiva were pink and moist. Extraocular movements were intact and pupils were equal round and reactive to light. Eyelids were unremarkable. PULMONARY: Unlabored respirations. Good breath sounds bilaterally. No audible rales rhonchi or wheezing was noted. CARDIOVASCULAR: There is a regular rate and rhythm without any murmurs gallops or rubs. ABDOMEN: Soft and nontender with normal bowel sounds. SKIN: Skin is clear with no lesions or rashes and otherwise unremarkable. NEUROLOGIC: Patient is alert and oriented x3. Cranial nerves II through XII are grossly intact. Motor and sensory are also intact. Normal speech, volume and content. Symmetrical smile. MUSCULOSKELETAL: Normal extremities with adequate strength and full range of motion. No lower extremity swelling or edema. No calf tenderness. Patient has good cap refill bilaterally LYMPHATICS: No significant lymphadenopathy is noted PSYCHIATRIC: Normal psychiatric evaluation. Limitations: no limitations Course Vital Signs 07/27/19 15:42 Temperature 97.8 F Pulse Rate 90 Respiratory 18 Rate Blood Pressure 151/72 O2 Sat by Pulse 98 Oximetry Disposition Clinical Impression: Restless leg syndrome Disposition: HOME SELF-CARE Condition: Good Instructions (If sedation given, give patient instructions): Restless Legs Syndrome (ED) Prescriptions: rOPINIRole HCL [Requip] 0.25 mg PO TID #21 tablet Is patient prescribed a controlled substance at d/c from ED?: No Referrals: Nick Brock MD [Primary Care Provider] - 1-2 days Time of Disposition: 16:55
[2019-07-27 17:10] VITALS: BP 131/66; PULSE 73; RESP 16
== END 2019-07-27 17:53 | disposition home or self-care (01) ==
LOC: EC 15:40
DX: G25.81 Restless legs syndrome (principal); I25.10 Atherosclerotic heart disease of native coronary artery without angina pectoris; E11.9 Type 2 diabetes mellitus without complications; K21.9 Gastro-esophageal reflux disease without esophagitis; I25.2 Old myocardial infarction; F41.9 Anxiety disorder, unspecified; F17.200 Nicotine dependence, unspecified, uncomplicated; Z79.4 Long term (current) use of insulin; Z79.02 Long term (current) use of antithrombotics/antiplatelets; Z79.899 Other long term (current) drug therapy; Z79.51 Long term (current) use of inhaled steroids; Z95.5 Presence of coronary angioplasty implant and graft
CPT/HCPCS: 99283; 96372; J1885

== ENCOUNTER → 2019-10-23 | Outpatient (CLI) | payer MEDICARE, OTHER ==
[2019-10-23 13:14] LABS: African American GFR (CKD) >90 (>60 ml/min/1.73 sqM); Blood Urea Nitrogen 9 mg/dL (7-17); Non-African American GFR(CKD) >90 (>60 ml/min/1.73 sqM)
--- NOTE | 2019-10-23 14:33 | CT ---
EXAMINATION TYPE: CT ChestAbdPelvis w con DATE OF EXAM: 10/23/2019 COMPARISON: 05/08/2019 HISTORY: Lung cancer CT DLP: 1255 mGycm Automated exposure control for dose reduction was used. CONTRAST: CT scan of the chest, abdomen and pelvis is performed with Oral Contrast and with IV Contrast, patien t injected with 100 mL of Isovue 300. FINDINGS: LUNGS: Post left pneumonectomy are noted with elevated left hemidiaphragm and volume loss. Diffuse em physematous changes are seen. Less than 5 mm subpleural nodularity or thickening seen retrospectively stable and likely benign. No pleural effusion or pneumothorax.. MEDIASTINUM: There are no greater than 1 cm hilar or mediastinal lymph nodes. No pericardial effusi on is seen. Coronary artery calcification. OTHER: There is 1.9 cm nodule the right breast recommend mammogram. Multinodular thyroid changes see n. LIVER/GB: Low attenuation the liver suggestive of hepatic steatosis PANCREAS: No significant abnormality is seen. SPLEEN: No significant abnormality is seen. ADRENALS: There is a mass anterior to the left kidney measuring 1.4 cm. This likely is related to the left adrenal gland.. KIDNEYS: Bilateral simple appearing renal cysts.. BOWEL: Bowel gas pattern nonspecific with extensive retained fecal debris. Motion artifact limits as sessment the right lower quadrant where there is appears to be evidence of previous surgical change w hich is similar appearance to the prior exam.. LYMPH NODES: No greater than 1 cm abdominal or pelvic lymph nodes are appreciated. OSSEOUS STRUCTURES: Hypertrophic and degenerative change of the spine. OTHER: Atherosclerotic change of the aorta. Correlate for cystocele and rectocele. IMPRESSION: 1. Postsurgical changes and changes of COPD with no evidence of pathologic adenopathy or recurrent ma ss. 2. Stable right breast 1.9 cm mass correlate with mammogram. 3. Stable 1.4 cm left adrenal mass 4. No evidence of new adenopathy.
== END | disposition home or self-care (01) ==
LOC: RADCTMAIN 12:10
PROVIDERS: ATTEND Internal Medicine Hematology & Oncology
DX: J44.9 Chronic obstructive pulmonary disease, unspecified (principal); N63.10 Unspecified lump in the right breast, unspecified quadrant; Z98.890 Other specified postprocedural states; E27.9 Disorder of adrenal gland, unspecified; C34.90 Malignant neoplasm of unspecified part of unspecified bronchus or lung
CPT/HCPCS: 82565; 84520; 71260; 74177; 36415; Q9967

== ENCOUNTER → 2020-01-15 | Outpatient (CLI) | payer MEDICARE, OTHER ==
--- NOTE | 2020-01-19 12:24 | MM ---
Reason for exam: screening (asymptomatic). Last mammogram was performed 1 year and 9 months ago. History: Patient is postmenopausal and history of other cancer. Family history of premenopausal breast cancer in maternal cousin at age 40 and breast cancer in mother at age 60. Benign US right core biopsy of the right breast, October 31, 2006. Benign ultrasound-guided core biopsy of the left breast, June 24, 2003. Benign ultrasound-guided core biopsy of the right breast, April 11, 2002. Took estrogen for 12 years beginning at age 43. Physical Findings: A clinical breast exam by your physician is recommended on an annual basis and results should be correlated with mammographic findings. MG 3D Screening Mammo W/Cad Bilateral CC and MLO view(s) were taken. Prior study comparison: April 29, 2018, right breast MG 3d diag mammo w/cad RT. July 05, 2017, bilateral MG diagnostic mammo w CAD BETH. The breast tissue is heterogeneously dense. This may lower the sensitivity of mammography. Previous mammotome biopsy in the right breast. There is chronic nodularity in the right breast. No significant changes when compared with prior studies. ASSESSMENT: Benign, BI-RAD 2 RECOMMENDATION: Routine screening mammogram of both breasts in 1 year.
== END | disposition home or self-care (01) ==
LOC: RADMAMWWP 10:36
PROVIDERS: ATTEND Internal Medicine Hematology & Oncology
DX: Z12.31 Encounter for screening mammogram for malignant neoplasm of breast (principal)
CPT/HCPCS: 77063; 77067

== ENCOUNTER → 2020-04-29 | Outpatient (CLI) | payer MEDICARE, OTHER ==
[2020-04-29 12:03] LABS: ALT 19 U/L (4-34); AST 21 U/L (14-36); African American GFR (CKD) >90 (>60 ml/min/1.73 sqM); Albumin 4.5 g/dL (3.5-5.0); Alkaline Phosphatase 126 U/L (38-126); Anion Gap 9 mmol/L; Blood Urea Nitrogen 10 mg/dL (7-17); Calcium 9.9 mg/dL (8.4-10.2); Carbon Dioxide 28 mmol/L (22-30); Chloride 99 mmol/L (98-107); Cholesterol 125 mg/dL (<200); Glucose 188 mg/dL (74-99); HDL Cholesterol 50 mg/dL (40-60); LDL Cholesterol,Calculated 31 mg/dL (0-99); Non-African American GFR(CKD) >90 (>60 ml/min/1.73 sqM); Potassium 4.4 mmol/L (3.5-5.1); Sodium 136 mmol/L (137-145); Total Bilirubin 0.4 mg/dL (0.2-1.3); Total Protein 7.3 g/dL (6.3-8.2); Triglycerides 222 mg/dL (<150)
--- NOTE | 2020-04-29 12:59 | CT ---
EXAMINATION TYPE: CT ChestAbdPelvis w con DATE OF EXAM: 04/29/2020 COMPARISON: CT October 23, 2019 and older studies. HISTORY: lung CA progress study. CT DLP: 1100 mGycm. Automated Exposure Control for Dose Reduction was Utilized. CONTRAST: CT scan of the thorax, abdomen and pelvis is performed with oral and with IV Contrast, patient inject ed with 100 mL of Isovue 300. FINDINGS: LUNGS: Moderate to advanced underlying emphysematous change is redemonstrated. Persistent posttreatme nt change to the left lung with partial pneumonectomy and left-sided volume loss. Mild to moderate le ft greater than right biapical pleural/parenchymal scarring. No new nodules or masses. Dependent atel ectasis right lower lobe. No pleural effusion or pneumothorax seen bilaterally. MEDIASTINUM: There are no greater than 1 cm hilar or mediastinal lymph nodes. No cardiomegaly or pe ricardial effusion is seen. Persistent left-sided arch with aberrant right brachiocephalic artery ru nning posterior to the esophagus. Coronary artery calcification redemonstrated. Stable heterogeneity to the thyroid with suspected left-sided nodule. OTHER: Stable 1.6 cm right breast mass from several prior studies axial image 29. LIVER/GB: Postcholecystectomy changes. Stable mild extrahepatic biliary dilatation. PANCREAS: No significant abnormality is seen. SPLEEN: No significant abnormality is seen. ADRENALS: Stable 2 adjacent left adrenal masses with 2.0 cm mass image 57 and 1.5 cm mass just inferi or and anterior to the axial image 60. No significant change from 2015 PET/CT. KIDNEYS: Stable 3.6 cm thin-walled cyst laterally in the kidney upper midpole level axial image 58. BOWEL: Sutures in the bowel loop axial image 76 right abdomen. Suboptimal evaluation of distal bowel. Moderate distal colonic fecal prominence. No suspicious smaller large bowel dilatation. Additional s utures sigmoid colon in the pelvis axial image 1 1. Moderate to severe rectal fecal prominence. GENITAL ORGANS: Uterus surgically absent. LYMPH NODES: No greater than 1cm abdominal or pelvic lymph nodes are appreciated. OSSEOUS STRUCTURES: Underlying scoliosis. Moderate to severe disc space narrowing and endplate sclero sis L4-L5 and L5-S1 levels. Multilevel facet arthropathy in the mid to lower lumbar spine. OTHER: Moderate to severe mixed plaque of the aorta extends into branch vessels. IMPRESSION: Overall stable findings, no new suspicious mass or adenopathy to suggest active neoplasti c recurrence. No significant change from most recent study.
== END | disposition home or self-care (01) ==
LOC: RADCTMAIN 10:15
PROVIDERS: ATTEND Internal Medicine Hematology & Oncology
DX: C34.90 Malignant neoplasm of unspecified part of unspecified bronchus or lung (principal); I10 Essential (primary) hypertension; E78.2 Mixed hyperlipidemia
CPT/HCPCS: 80061; 80053; 71260; 74177; 36415; Q9967

== ENCOUNTER → 2020-10-11 | Outpatient (CLI) | payer MEDICARE, OTHER ==
[2020-10-11 15:54] LABS: African American GFR (CKD) 85.4 (60.0-200.0); Albumin 4.1 g/dL (3.80-4.90); Albumin/Globulin Ratio 1.95 (1.60-3.17); BUN/Creat Ratio 23.75 Ratio (12.00-20.00); Calcium 9.2 mg/dL (8.7-10.3); Chol/HDL Ratio 3.37; Globulin 2.1 g/dL (1.6-3.3); LDL Cholesterol,Calculated 37.6 mg/dL (0.0-131.0); Non-African American GFR(CKD) 73.7 (60.0-200.0); Potassium 4.3 mmol/L (3.5-5.5); Total Bilirubin 0.1 mg/dL (0.2-1.2); Total Protein 6.2 g/dL (6.2-8.2); VLDL Calculation 45.4 mg/dL (5.00-40.00)
== END | disposition home or self-care (01) ==
LOC: LABWHC1 08:47
PROVIDERS: ATTEND Internal Medicine Interventional Cardiology
DX: E78.2 Mixed hyperlipidemia (principal)
CPT/HCPCS: 36415; 80053; 80061

== ENCOUNTER → 2020-10-26 | Outpatient (CLI) | payer MEDICARE, OTHER ==
[2020-10-26 11:02] LABS: African American GFR (CKD) >90 (>60 ml/min/1.73 sqM); Blood Urea Nitrogen 15 mg/dL (7-17); Non-African American GFR(CKD) >90 (>60 ml/min/1.73 sqM)
--- NOTE | 2020-10-26 12:55 | CT ---
EXAMINATION TYPE: CT ChestAbdPelvis w con DATE OF EXAM: 10/26/2020 COMPARISON: Prior CT April 29, 2020 and older studies HISTORY: f/u lung ca diagnosed 2018 CT DLP: 1197 mGycm. Automated Exposure Control for Dose Reduction was Utilized. CONTRAST: CT scan of the thorax, abdomen and pelvis is performed with oral and with IV Contrast, patient inject ed with 100 mL of Isovue 300. FINDINGS: LUNGS: Moderate underlying emphysematous change is redemonstrated. Persistent posttreatment change to the left lung with partial pneumonectomy and left-sided volume loss. Superior retraction left hilum redemonstrated. Mild to moderate left greater than right biapical pleural/parenchymal scarring. No ne w nodules or masses. Dependent atelectasis right lower lobe again seen. No pleural effusion or pneumo thorax seen bilaterally. MEDIASTINUM: There are no new greater than 1 cm hilar or mediastinal lymph nodes. No cardiomegaly o r pericardial effusion is seen. 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 Coronary artery calcification redemonstrated. Stable heterogene ity to the thyroid with suspected left-sided nodule. Redemonstration of focal mediastinal fluid anter ior to aorta and main pulmonary artery axial image 26 presumed physiologic. OTHER: Stable 1.6 cm right breast mass from several prior studies axial image 29 on current exam. LIVER/GB: Postcholecystectomy changes. Stable mild extrahepatic biliary dilatation. PANCREAS: No significant abnormality is seen. SPLEEN: No significant abnormality is seen. ADRENALS: Stable 2 adjacent left adrenal masses with 2.0 cm superior mass axial image 58 and 1.8 cm m ass just inferior to this axial image 61 current study. No significant change from 2015 MRI abdomen s tudy. KIDNEYS: Stable 3.7 cm thin-walled cyst laterally in the kidney upper midpole level axial image 60. S ubcentimeter adjacent cyst posteriorly image 61 redemonstrated. Poorly distended bladder. BOWEL: Sutures in the bowel loop axial image 79 right abdomen. Suboptimal evaluation of distal bowel. [id number] colonic fecal prominence. Small bowel feces sign right lower quadrant. No suspiciou s small lower large bowel dilatation. Finding is consistent with delayed passage of ingested material to colonic level. Additional sutures sigmoid colon in the pelvis axial image 101. GENITAL ORGANS: Uterus surgically absent. LYMPH NODES: No greater than 1cm abdominal or pelvic lymph nodes are appreciated. OSSEOUS STRUCTURES: Moderate to severe disc space narrowing and endplate sclerosis L4-L5 and L5-S1 le vels. Multilevel facet arthropathy in the mid to lower lumbar spine. OTHER: Moderate to severe mixed plaque of the aorta extends into branch vessels. IMPRESSION: Overall stable findings from most recent CT, no new or enlarging suspicious mass or adeno reema to suggest active neoplastic recurrence. No significant change from most recent study.
== END | disposition home or self-care (01) ==
LOC: RADCTMAIN 10:09
PROVIDERS: ATTEND Internal Medicine Hematology & Oncology
DX: C34.90 Malignant neoplasm of unspecified part of unspecified bronchus or lung (principal)
CPT/HCPCS: 82565; 84520; 71260; 74177; 36415; Q9967

== ENCOUNTER 2020-11-08 11:02 | Inpatient (IN) | payer MEDICARE, OTHER ==
[2020-11-08] MEDS ORDERED: IPRATROPIUM-ALBUTEROL 3 ML NEB INHALATION STA (11:28)
[2020-11-08] MEDS ORDERED: ALBUTEROL HFA INHALER INHALATION STA (12:02)
[2020-11-08 12:11] LABS: Basophils % (A) 0 %; Eosinophils % (A) 0 %; HCT 45.4 % (34.0-46.0); Lymphocytes # (A) 1.1 k/uL (1.0-4.8); Lymphocytes % (A) 14 %; MCHC 33.1 g/dL (31.0-37.0); MCV 87.6 fL (80.0-100.0); Mean Platelet Volume 7.9; Monocytes # (A) 0.7 k/uL (0-1.0); Monocytes % (A) 9 %; Neutrophils # (A) 6.1 k/uL (1.3-7.7); Neutrophils % (A) 75 %; Platelet Count 248 k/uL (150-450); RBC 5.19 m/uL (3.80-5.40); RDW 13.9 % (11.5-15.5); WBC 8.1 k/uL (3.8-10.6)
--- NOTE | 2020-11-08 12:11 | ED ---
General Adult HPI - General Chief complaint: Shortness of Breath Stated complaint: DOMITILA Time Seen by Provider: 11/08/20 11:10 Source: patient, family, RN notes reviewed Mode of arrival: wheelchair Limitations: no limitations - History of Present Illness Initial comments: This a 70-year-old female presents emergency department chief complaint of cough congestion and shortness breath. Patient had increasing cough congestion. Patient states that she does have COPD is had prior lung cancer with left upper lobe surgery. Patient states that last few days she's had increasing shortness breath, coughing and chest congestion. No reported fevers that she feels very weak. It was or chest pain. Patient has not had COVID-19 and has not been vaccinated. No nausea vomiting diarrhea constipation. - Related Data Home Medications Medication Instructions Recorded Confirmed ALPRAZolam 0.25 mg PO AC-BID PRN 11/03/15 11/08/20 Pantoprazole [Protonix] 40 mg PO DAILY 01/14/17 11/08/20 Budesonide-Formot 160-4.5 Mcg 2 puff INHALATION RT-BID 08/31/17 11/08/20 [Symbicort 160-4.5 Mcg Inhaler] HYDROcodone/APAP 10-325MG [[place] 1 tab PO TID PRN 08/19/18 11/08/20 10-325] Insulin Detemir (Levemir) [Levemir] See Protocol SQ DAILY 08/27/18 11/08/20 INSULIN ASPART (NovoLOG) [NovoLOG See Protocol SQ AC-TID 09/07/18 11/08/20 (formulary)] traZODone HCL 50 mg PO HS 09/07/18 11/08/20 Loperamide [Imodium] 2 mg PO TID PRN 01/13/19 11/08/20 Metoprolol Succinate (ER) [Toprol 25 mg PO AC-SUPPER 01/13/19 11/08/20 XL] Mirabegron [Myrbetriq] 25 mg PO AC-SUPPER 01/13/19 11/08/20 Rivaroxaban [Xarelto] 2.5 mg PO BID 11/08/20 11/08/20 lisinopriL [Zestril] 5 mg PO DAILY 11/08/20 11/08/20 Previous Rx's Medication Instructions Recorded Atorvastatin [Lipitor] 40 mg PO HS #30 tab 01/15/19 Fenofibrate [Lofibra] 160 mg PO DAILY #30 tab 01/15/19 Melatonin 3 mg PO HS tablet 01/15/19 Nitroglycerin Sl Tabs [Nitrostat] 0.4 mg SUBLINGUAL Q5M PRN #25 tab 01/15/19 rOPINIRole HCL [Requip] 0.25 mg PO TID #21 tablet 07/27/19 Allergies Allergy/AdvReac Type Severity Reaction Status Date / Time No Known Allergies Allergy Verified 11/08/20 11:51 Review of Systems ROS Statement: Those systems with pertinent positive or pertinent negative responses have been documented in the HPI. ROS Other: All systems not noted in ROS Statement are negative. Past Medical History Past Medical History: Coronary Artery Disease (CAD), Diabetes Mellitus, Fibromyalgia, GERD/Reflux, Myocardial Infarction (DE) Additional Past Medical History / Comment(s): Idiopathic thrombocytopenia purpura, IBS, diverticulitis, hiatal hernia, 2 herniated discs-L3/L4, Restless Leg Syndrome, gastritis, superficial gastric ulcers. nodule on lt lung-Cancer Stg 1 Last Myocardial Infarction Date:: 01/2017 History of Any Multi-Drug Resistant Organisms: None Reported Past Surgical History: Adenoidectomy, Bladder Surgery, Bowel Resection, Cholecystectomy, Heart Catheterization With Stent, Hernia Repair, Hysterectomy, Tonsillectomy Additional Past Surgical History / Comment(s): BLADDER SUSPENSION x 2, breast biopsy x3, bowel resection due to rupture. left upper lobe of lung removed per CA, Past Anesthesia/Blood Transfusion Reactions: No Reported Reaction Additional Past Anesthesia/Blood Transfusion Reaction / Comment(s): Pt received blood in 2005 due to ITP without reaction. Date of Last Stent Placement:: 01/2017 Past Psychological History: Anxiety Smoking Status: Current every day smoker Past Alcohol Use History: None Reported Past Drug Use History: None Reported - Past Family History Mother Family Medical History: Cancer, Diabetes Mellitus Additional Family Medical History / Comment(s): Father had a defibrillator. He of heart dx in his 80's Father Family Medical History: Diabetes Mellitus Additional Family Medical History / Comment(s): HEART DISEASE General Exam Limitations: no limitations General appearance: alert, in no apparent distress Head exam: Present: atraumatic, normocephalic, normal inspection Eye exam: Present: normal appearance, PERRL, EOMI. Absent: scleral icterus, conjunctival injection, periorbital swelling ENT exam: Present: normal exam, mucous membranes moist Neck exam: Present: normal inspection, full ROM. Absent: tenderness, meningismus, lymphadenopathy Respiratory exam: Present: wheezes, decreased breath sounds. Absent: normal lung sounds bilaterally, respiratory distress, rales, rhonchi, stridor Cardiovascular Exam: Present: normal rhythm, tachycardia, normal heart sounds. Absent: systolic murmur, diastolic murmur, rubs, gallop, clicks Course Vital Signs 11/08/20 11/08/20 11/08/20 11:03 12:58 13:03 Temperature 98 F Pulse Rate 106 H 96 Respiratory 26 H 20 Rate Blood Pressure 116/59 O2 Sat by Pulse 90 L 95 96 Oximetry Medical Decision Making - Medical Decision Making X-ray shows COPD changes along with postsurgical changes. COVID-19 is negative. Labs do not reveal any significant abnormalities patient was hypoxic upon arrival she continues to feel short of breath, wheezy. Patient is a daily smoker. Patient has acute COPD exacerbation. - Lab Data Result diagrams: 11/08/20 11:48 11/08/20 11:48 Lab Results 11/08/20 11/08/20 11/08/20 Range/Units 11:48 11:48 11:48 WBC 8.1 (3.8-10.6) k/uL RBC 5.19 (3.80-5.40) m/uL Hgb 15.0 (11.4-16.0) gm/dL Hct 45.4 (34.0-46.0) % MCV 87.6 (80.0-100.0) fL MCH 29.0 (25.0-35.0) pg MCHC 33.1 (31.0-37.0) g/dL RDW 13.9 (11.5-15.5) % Plt Count 248 (150-450) k/uL MPV 7.9 Neutrophils % 75 % Lymphocytes % 14 % Monocytes % 9 % Eosinophils % 0 % Basophils % 0 % Neutrophils # 6.1 (1.3-7.7) k/uL Lymphocytes # 1.1 (1.0-4.8) k/uL Monocytes # 0.7 (0-1.0) k/uL Eosinophils # 0.0 (0-0.7) k/uL Basophils # 0.0 (0-0.2) k/uL PT 10.0 (9.0-12.0) sec INR 0.9 (<1.2) APTT 24.3 (22.0-30.0) sec Sodium 140 (137-145) mmol/L Potassium 4.5 (3.5-5.1) mmol/L Chloride 104 (98-107) mmol/L Carbon Dioxide 26 (22-30) mmol/L Anion Gap 10 mmol/L BUN 9 (7-17) mg/dL Creatinine 0.47 L (0.52-1.04) mg/dL Est GFR (CKD-EPI)AfAm >90 (>60 ml/min/1.73 sqM) Est GFR (CKD-EPI)NonAf >90 (>60 ml/min/1.73 sqM) Glucose 110 H (74-99) mg/dL Plasma Lactic Acid Jeremy (0.7-2.0) mmol/L Calcium 10.2 (8.4-10.2) mg/dL Magnesium 1.5 L (1.6-2.3) mg/dL Total Bilirubin 0.4 (0.2-1.3) mg/dL AST 36 (14-36) U/L ALT 30 (4-34) U/L Alkaline Phosphatase 123 (38-126) U/L Troponin I (0.000-0.034) ng/mL NT-Pro-B Natriuret Pep pg/mL Total Protein 6.8 (6.3-8.2) g/dL Albumin 4.1 (3.5-5.0) g/dL Coronavirus (PCR) (Not Detectd) 11/08/20 11/08/20 11/08/20 Range/Units 11:48 11:48 11:48 WBC (3.8-10.6) k/uL RBC (3.80-5.40) m/uL Hgb (11.4-16.0) gm/dL Hct (34.0-46.0) % MCV (80.0-100.0) fL MCH (25.0-35.0) pg MCHC (31.0-37.0) g/dL RDW (11.5-15.5) % Plt Count (150-450) k/uL MPV Neutrophils % % Lymphocytes % % Monocytes % % Eosinophils % % Basophils % % Neutrophils # (1.3-7.7) k/uL Lymphocytes # (1.0-4.8) k/uL Monocytes # (0-1.0) k/uL Eosinophils # (0-0.7) k/uL Basophils # (0-0.2) k/uL PT (9.0-12.0) sec INR (<1.2) APTT (22.0-30.0) sec Sodium (137-145) mmol/L Potassium (3.5-5.1) mmol/L Chloride (98-107) mmol/L Carbon Dioxide (22-30) mmol/L Anion Gap mmol/L BUN (7-17) mg/dL Creatinine (0.52-1.04) mg/dL Est GFR (CKD-EPI)AfAm (>60 ml/min/1.73 sqM) Est GFR (CKD-EPI)NonAf (>60 ml/min/1.73 sqM) Glucose (74-99) mg/dL Plasma Lactic Acid Jeremy 1.9 (0.7-2.0) mmol/L Calcium (8.4-10.2) mg/dL Magnesium (1.6-2.3) mg/dL Total Bilirubin (0.2-1.3) mg/dL AST (14-36) U/L ALT (4-34) U/L Alkaline Phosphatase (38-126) U/L Troponin I <0.012 (0.000-0.034) ng/mL NT-Pro-B Natriuret Pep 1020 pg/mL Total Protein (6.3-8.2) g/dL Albumin (3.5-5.0) g/dL Coronavirus (PCR) (Not Detectd) 11/08/20 Range/Units 11:48 WBC (3.8-10.6) k/uL RBC (3.80-5.40) m/uL Hgb (11.4-16.0) gm/dL Hct (34.0-46.0) % MCV (80.0-100.0) fL MCH (25.0-35.0) pg MCHC (31.0-37.0) g/dL RDW (11.5-15.5) % Plt Count (150-450) k/uL MPV Neutrophils % % Lymphocytes % % Monocytes % % Eosinophils % % Basophils % % Neutrophils # (1.3-7.7) k/uL Lymphocytes # (1.0-4.8) k/uL Monocytes # (0-1.0) k/uL Eosinophils # (0-0.7) k/uL Basophils # (0-0.2) k/uL PT (9.0-12.0) sec INR (<1.2) APTT (22.0-30.0) sec Sodium (137-145) mmol/L Potassium (3.5-5.1) mmol/L Chloride (98-107) mmol/L Carbon Dioxide (22-30) mmol/L Anion Gap mmol/L BUN (7-17) mg/dL Creatinine (0.52-1.04) mg/dL Est GFR (CKD-EPI)AfAm (>60 ml/min/1.73 sqM) Est GFR (CKD-EPI)NonAf (>60 ml/min/1.73 sqM) Glucose (74-99) mg/dL Plasma Lactic Acid Jeremy (0.7-2.0) mmol/L Calcium (8.4-10.2) mg/dL Magnesium (1.6-2.3) mg/dL Total Bilirubin (0.2-1.3) mg/dL AST (14-36) U/L ALT (4-34) U/L Alkaline Phosphatase (38-126) U/L Troponin I (0.000-0.034) ng/mL NT-Pro-B Natriuret Pep pg/mL Total Protein (6.3-8.2) g/dL Albumin (3.5-5.0) g/dL Coronavirus (PCR) Not Detected (Not Detectd) Disposition Clinical Impression: COPD exacerbation, Hypoxia Disposition: ADMITTED IP TO THIS HOSP Condition: Fair Referrals: Nick Brock MD [Primary Care Provider] - 1-2 days
--- NOTE | 2020-11-08 12:15 | XR ---
EXAMINATION TYPE: XR chest 2V DATE OF EXAM: 11/08/2020 COMPARISON: 01/13/2019 HISTORY: 70 year-old female shortness of breath, cough, difficulty breathing. Patient with history of partial left lung lobectomy due to cancer. TECHNIQUE: AP and lateral views FINDINGS: Redemonstrated volume loss within the left hemithorax. Heart normal size. Mild atherosclerotic arch c alcifications. Hyperinflation right hemithorax. Left suprahilar nodularity corresponds to tortuous va sculature when correlated with patient's prior CT. Some strandy scarring or atelectasis at the left b ase. No pleural effusion or jaime consolidation. IMPRESSION: Post surgical change within the left hemithorax with volume loss. COPD. Stable left suprahilar nodula rity compatible with tortuous vasculature. No definite acute process.
[2020-11-08 12:28] LABS: ALT 30 U/L (4-34); AST 36 U/L (14-36); African American GFR (CKD) >90 (>60 ml/min/1.73 sqM); Albumin 4.1 g/dL (3.5-5.0); Alkaline Phosphatase 123 U/L (38-126); Anion Gap 10 mmol/L; Blood Urea Nitrogen 9 mg/dL (7-17); Calcium 10.2 mg/dL (8.4-10.2); Carbon Dioxide 26 mmol/L (22-30); Chloride 104 mmol/L (98-107); Glucose 110 mg/dL (74-99); Magnesium 1.5 mg/dL (1.6-2.3); Non-African American GFR(CKD) >90 (>60 ml/min/1.73 sqM); Potassium 4.5 mmol/L (3.5-5.1); Sodium 140 mmol/L (137-145); Total Bilirubin 0.4 mg/dL (0.2-1.3); Total Protein 6.8 g/dL (6.3-8.2)
[2020-11-08 12:33] LABS: INR 0.9 (<1.2); Partial Thromboplastin Time 24.3 sec (22.0-30.0)
[2020-11-08] MEDS ORDERED: methylPREDNISolone SOD SUCCI 125 MG/2 ML VIAL IV STA (13:05)
--- NOTE | 2020-11-08 14:10 | P.HPIM ---
<Og Schaffer - Last Filed: 11/08/20 16:22> History of Present Illness H&P Date: 11/08/20 History of Presenting Illness: Patient is a 70-year-old female with a past medical history of CAD with previous [place] and stent placement, atrial fibrillation on anticoagulation with Xarelto, hypertension, hyperlipidemia, insulin-dependent diabetes mellitus type 2, diverticulitis with previous bowel resections, restless leg syndrome, lung cancer resulting in left upper lobe lobectomy, and COPD not on home oxygen dependent but with continued nicotine dependence. Patient presented to the emergency department with a chief complaint of increasing shortness of breath, cough, and congestion over the past few days. She was seen and fully evaluated in the emergency department. A chest x-ray revealed hyperinflation of right lung consistent with COPD. EKG showing sinus tachycardia at 103 bpm with no noted T-wave or ST abnormalities showing no signs of acute ischemia. Vital signs reviewed and stable. Patient reportedly 88% room air requiring oxygen supplementation. Currently patient on 2 L O2 via nasal cannula with SpO2 94- 95%. Patient being admitted for COPD exacerbation. Covid 19 PCR was negative, troponin negative at less than 0.012, and proBNP 1020. Patient was found to have significant hypomagnesemia with magnesium of 1.5, replaced. Patient admitted under our services with consultation to pulmonology. Patient seen and fully evaluated at the bedside. She reports persistent shortness of breath and displayed conversational dyspnea. Patient denies having any recent fevers, chills, diaphoresis, chest pain, palpitations, abdominal pain, nausea, vomiting, or experiencing any pain/swelling/weakness/tingling in her extremities. Patient denies history of Covid 19 virus infection and denies having Covid vaccinations. Review of systems: Pertinent positives and negatives as discussed in HPI, a complete review of systems was performed and all other systems are negative. Physical exam: Vital signs reviewed and stable. General: Nontoxic, no distress and appears stated age. Derm: Skin warm and dry, normal coloration for ethnicity. Head: Atraumatic, normocephalic and symmetric. Eyes: EOMs intact, no lid lag, and anicteric sclera Mouth: no lip lesions, mucus membranes moist Cardiovascular: regular rate and rhythm with normal S1S2, no murmur, positive posterior tibial pulses bilaterally, and cap refill < 2 seconds. Lungs: Respirations tachypneic with increased respiratory effort. Barrel chest. Lungs significantly wheezy throughout all nieves. No rhonchi, rales, or crackles noted. Abdominal: soft, nontender to palpation, no guarding, no appreciable organomegaly Ext: ROM intact. No gross muscle atrophy, no edema, no contractures Neuro: Speech clear, face symmetrical and CN II-XII grossly intact with no noted focal neuro deficits Psych: Alert and oriented to person, place, time, and situation. Appropriate and pleasant affect. Assessment and Plan of Care: Acute COPD exacerbation -Consult to Pulmonology -Oxygenation to be administered and titrated as needed to maintain SPO2 equal to or greater than 92% -Telemetry monitoring. -Continuous Pulse-oximetry -Duonebs as needed for SOB and/or wheezing -Incentive Spirometry -Steroids: Solu-Medrol -Antibiotics: Azithromycin Hypomagnesemia Magnesium 1.5, replaced. We will continue to monitor closely with repeat a.m. labs. Nicotine dependence -Patient to continue to receive education and encouragement on the importance of smoking cessation and the risks of continued use up to and including . -Nicotine patch Paroxysmal atrial fibrillation on anticoagulation with Xarelto -Continue anticoagulation with Xarelto Hypertension Monitor vital signs and continue daily medication regimen with metoprolol. Hyperlipidemia Continue daily medication regimen with atorvastatin. Heart healthy and carb consistent diet. Insulin-dependent diabetes mellitus type 2 Patient placed on glycemic protocol with NovoLog sliding scale. Restless leg syndrome -Continue daily medication regimen with Requip. The patient is admitted with an anticipated greater than 2 midnight stay for evaluation of acute COPD exacerbation. CODE STATUS: Full code DVT prophylaxis: Xarelto Discussed with: Patient and RN Anticipated discharge date: Clinical course to determine Anticipated discharge place: Home A total of 45 minutes was spent on the care of this complex patient more than 50% of the time was spent in counseling and care coordination. Past Medical History Past Medical History: Coronary Artery Disease (CAD), Diabetes Mellitus, Fibromyalgia, GERD/Reflux, Myocardial Infarction (MD) Additional Past Medical History / Comment(s): Idiopathic thrombocytopenia purpura, IBS, diverticulitis, hiatal hernia, 2 herniated discs-L3/L4, Restless Leg Syndrome, gastritis, superficial gastric ulcers. nodule on lt lung-Cancer Stg 1 Last Myocardial Infarction Date:: 01/2017 History of Any Multi-Drug Resistant Organisms: None Reported Past Surgical History: Adenoidectomy, Bladder Surgery, Bowel Resection, Cholecystectomy, Heart Catheterization With Stent, Hernia Repair, Hysterectomy, Tonsillectomy Additional Past Surgical History / Comment(s): BLADDER SUSPENSION x 2, breast biopsy x3, bowel resection due to rupture. left upper lobe of lung removed per CA, Past Anesthesia/Blood Transfusion Reactions: No Reported Reaction Additional Past Anesthesia/Blood Transfusion Reaction / Comment(s): Pt received blood in 2005 due to ITP without reaction. Date of Last Stent Placement:: 01/2017 Past Psychological History: Anxiety Smoking Status: Current every day smoker Past Alcohol Use History: None Reported Past Drug Use History: None Reported - Past Family History Mother Family Medical History: Cancer, Diabetes Mellitus Additional Family Medical History / Comment(s): Father had a defibrillator. He of heart dx in his 80's Father Family Medical History: Diabetes Mellitus Additional Family Medical History / Comment(s): HEART DISEASE Medications and Allergies Home Medications Medication Instructions Recorded Confirmed Type ALPRAZolam 0.25 mg PO AC-BID PRN 11/03/15 11/08/20 History Pantoprazole [Protonix] 40 mg PO DAILY 01/14/17 11/08/20 History Budesonide-Formot 160-4.5 Mcg 2 puff INHALATION RT-BID 08/31/17 11/08/20 History [Symbicort 160-4.5 Mcg Inhaler] HYDROcodone/APAP 10-325MG [[place] 1 tab PO TID PRN 08/19/18 11/08/20 History 10-325] Insulin Detemir (Levemir) [Levemir] See Protocol SQ DAILY 08/27/18 11/08/20 History INSULIN ASPART (NovoLOG) [NovoLOG See Protocol SQ AC-TID 09/07/18 11/08/20 History (formulary)] traZODone HCL 50 mg PO HS 09/07/18 11/08/20 History Loperamide [Imodium] 2 mg PO TID PRN 01/13/19 11/08/20 History Metoprolol Succinate (ER) [Toprol 25 mg PO AC-SUPPER 01/13/19 11/08/20 History XL] Mirabegron [Myrbetriq] 25 mg PO AC-SUPPER 01/13/19 11/08/20 History Atorvastatin [Lipitor] 40 mg PO HS #30 tab 10/23/19 08/16/21 Rx Fenofibrate [Lofibra] 160 mg PO DAILY #30 tab 01/15/19 11/08/20 Rx Melatonin 3 mg PO HS tablet 01/15/19 11/08/20 Rx Nitroglycerin Sl Tabs [Nitrostat] 0.4 mg SUBLINGUAL Q5M PRN #25 tab 01/15/19 11/08/20 Rx rOPINIRole HCL [Requip] 0.25 mg PO TID #21 tablet 07/27/19 11/08/20 Rx Rivaroxaban [Xarelto] 2.5 mg PO BID 11/08/20 11/08/20 History lisinopriL [Zestril] 5 mg PO DAILY 11/08/20 11/08/20 History Allergies Allergy/AdvReac Type Severity Reaction Status Date / Time No Known Allergies Allergy Verified 11/08/20 11:51 Physical Exam Vitals: Vital Signs Temp Pulse Resp BP Pulse Ox 11/08/20 13:03 96 20 96 11/08/20 12:58 95 11/08/20 11:03 98 F 106 H 26 H 116/59 90 L Intake and Output 11/07/20 11/08/20 11/08/20 22:59 06:59 14:59 Other: Weight 54.431 kg Results CBC & Chem 7: 11/08/20 11:48 11/08/20 11:48 Labs: Abnormal Lab Results - Last 24 Hours (Table) 11/08/20 Range/Units 11:48 Creatinine 0.47 L (0.52-1.04) mg/dL Glucose 110 H (74-99) mg/dL Magnesium 1.5 L (1.6-2.3) mg/dL <Annemarie Hernandez - Last Filed: 11/08/20 17:51> Physical Exam Vitals: Vital Signs Temp Pulse Resp BP Pulse Ox 11/08/20 17:42 97 16 115/55 95 11/08/20 15:46 96 11/08/20 15:35 96 96 11/08/20 13:03 96 20 96 11/08/20 12:58 95 11/08/20 11:03 98 F 106 H 26 H 116/59 90 L Intake and Output 11/08/20 11/08/20 11/08/20 06:59 14:59 22:59 Other: Weight 54.431 kg Results CBC & Chem 7: 11/08/20 11:48 11/08/20 11:48 Labs: Abnormal Lab Results - Last 24 Hours (Table) 11/08/20 Range/Units 11:48 Creatinine 0.47 L (0.52-1.04) mg/dL Glucose 110 H (74-99) mg/dL Magnesium 1.5 L (1.6-2.3) mg/dL Assessment and Plan Assessment: Patient was seen, evaluated, and examined by me in the emergency room. She has diffuse wheezing all over her chest. She was counseled extensively regarding tobacco cessation. Continue bronchodilators and IV steroids. Pulmonology consulted for further evaluation. Patient would like to be a full code.
[2020-11-08] MEDS: MAGNESIUM SULFATE-D5W PMX 1 GM in DEXTROSE/WATER 1 100ML.BAG IVPB SCH ×3 (14:35→17:41)
[2020-11-08] MEDS: IPRATROPIUM-ALBUTEROL 3 ML NEB INHALATION SCH ×2 (15:34→19:48)
[2020-11-08] MEDS: MORPHINE SULFATE 4 MG/ML SYRINGE IV PRN ×2 (16:22→20:33)
[2020-11-08] MEDS: HYDROcodone/APAP 10-325MG 1 EACH TAB PO PRN (18:04)
[2020-11-08 18:17] LABS: Glucose,Whole Blood 315 mg/dL (75-99)
[2020-11-08] MEDS: INSULIN ASPART (NovoLOG) 100 UNIT/ML VIAL SQ SCH ×2 (18:56→23:24)
[2020-11-08] MEDS: methylPREDNISolone SOD SUCCI 125 MG/2 ML VIAL IV SCH (19:35)
[2020-11-08] MEDS: MELATONIN 3 MG TABLET PO SCH (19:36)
[2020-11-08] MEDS: traZODone HCL 50 MG TAB PO SCH (19:37)
[2020-11-08] MEDS: ATORVASTATIN 40 MG TAB PO SCH (19:37)
[2020-11-08] MEDS: NICOTINE 21MG/24HR PATCH TRANSDERM SCH (19:39)
[2020-11-08] MEDS: METOPROLOL SUCCINATE (ER) 25 MG TAB.ER.24H PO SCH (19:43)
[2020-11-08] MEDS: SYMBICORT 160-4.5 MCG INHALER INHALATION SCH (19:48)
[2020-11-08] MEDS: NON FORMULARY DRUG (Mirabegron [Myrbetriq] 25 MG Tab.Er.24h) PO SCH (20:06)
[2020-11-08] MEDS: IPRATROPIUM-ALBUTEROL 3 ML NEB INHALATION PRN (23:51)
[2020-11-09] MEDS: methylPREDNISolone SOD SUCCI 125 MG/2 ML VIAL IV SCH ×5 (00:13→21:47)
[2020-11-09] MEDS: MORPHINE SULFATE 4 MG/ML SYRINGE IV PRN ×2 (01:01→08:27)
[2020-11-09] MEDS: RIVAROXABAN 2.5 MG TABLET PO SCH ×3 (01:01→21:47)
[2020-11-09] MEDS: IPRATROPIUM-ALBUTEROL 3 ML NEB INHALATION PRN (03:58)
[2020-11-09 07:00] LABS: Glucose,Whole Blood 262 mg/dL (75-99)
[2020-11-09] MEDS: INSULIN ASPART (NovoLOG) 100 UNIT/ML VIAL SQ SCH ×6 (07:34→22:07)
[2020-11-09] MEDS: lisinopriL 5 MG TAB PO SCH (07:35)
[2020-11-09] MEDS: PANTOPRAZOLE 40 MG TABLET PO SCH (07:35)
[2020-11-09] MEDS: NICOTINE 21MG/24HR PATCH TRANSDERM SCH (07:35)
[2020-11-09] MEDS: AZITHROMYCIN 500 MG TAB PO SCH (07:35)
[2020-11-09] MEDS: FENOFIBRATE 160 MG TAB PO SCH (07:35)
[2020-11-09] MEDS: IPRATROPIUM-ALBUTEROL 3 ML NEB INHALATION SCH ×4 (08:12→20:34)
[2020-11-09] MEDS: SYMBICORT 160-4.5 MCG INHALER INHALATION SCH (08:13)
[2020-11-09 08:29] LABS: HGB 14.3 gm/dL (11.4-16.0); MCH 28.9 pg (25.0-35.0); MCHC 31.7 g/dL (31.0-37.0); MCV 91.1 fL (80.0-100.0); Mean Platelet Volume 8.4; Platelet Count 240 k/uL (150-450); RBC 4.94 m/uL (3.80-5.40); RDW 13.9 % (11.5-15.5); WBC 5.4 k/uL (3.8-10.6)
[2020-11-09 08:40] LABS: African American GFR (CKD) >90 (>60 ml/min/1.73 sqM); Anion Gap 11 mmol/L; Blood Urea Nitrogen 15 mg/dL (7-17); Calcium 9.3 mg/dL (8.4-10.2); Carbon Dioxide 26 mmol/L (22-30); Chloride 99 mmol/L (98-107); Glucose 351 mg/dL (74-99); Non-African American GFR(CKD) >90 (>60 ml/min/1.73 sqM); Potassium 4.1 mmol/L (3.5-5.1); Sodium 136 mmol/L (137-145)
--- NOTE | 2020-11-09 09:49 | P.PN ---
<Og Schaffer - Last Filed: 11/09/20 11:06> Subjective Progress Note Date: 11/09/20 Hospital Course: Patient is a 70-year-old female with a past medical history of CAD with previous [place] and stent placement, atrial fibrillation on anticoagulation with Xarelto, hypertension, hyperlipidemia, insulin-dependent diabetes mellitus type 2, diverticulitis with previous bowel resections, restless leg syndrome, lung cancer resulting in left upper lobe lobectomy, and COPD not on home oxygen dependent but with continued nicotine dependence. Patient presented to the emergency department with a chief complaint of increasing shortness of breath, cough, and congestion over the past few days. She was seen and fully evaluated in the emergency department. A chest x-ray revealed hyperinflation of right lung consistent with COPD. EKG showing sinus tachycardia at 103 bpm with no noted T-wave or ST abnormalities showing no signs of acute ischemia. Vital signs reviewed and stable. Patient reportedly 88% room air requiring oxygen supplementation. Currently patient on 2 L O2 via nasal cannula with SpO2 94- 95%. Patient being admitted for COPD exacerbation. Covid 19 PCR was negative, troponin negative at less than 0.012, and proBNP 1020. Patient was found to have significant hypomagnesemia with magnesium of 1.5, replaced. Patient admitted under our services with consultation to pulmonology. Patient denies history of Covid 19 virus infection and denies having Covid vaccinations. Physical exam: Patient seen and fully evaluated at the bedside. She reports continued persistent shortness of breath and continues to display conversational dyspnea. She reports coarse nonproductive cough and raspy cough noted upon assessment. She has also increased oxygenation needs overnight and is now on 3 L O2 via nasal cannula with SpO2 93%. Patient denies having any headache, lightheadedness, dizziness, chest pain, palpitations, abdominal pain, nausea, or vomiting. Vital signs reviewed and stable. General: Nontoxic, no distress and appears stated age. Derm: Skin warm and dry, normal coloration for ethnicity. Head: Atraumatic, normocephalic and symmetric. Eyes: EOMs intact, no lid lag, and anicteric sclera Mouth: no lip lesions, mucus membranes moist Cardiovascular: regular rate and rhythm with normal S1S2, no murmur, positive posterior tibial pulses bilaterally, and cap refill < 2 seconds. Lungs: Respirations even, regular, and unlabored this morning with no noted accessory muscle usage. Lungs remain significantly wheezy throughout all nieves. No rhonchi, rales, or crackles noted. coarse cough present. Abdominal: soft, nontender to palpation, no guarding, no appreciable organomegaly Ext: ROM intact. No gross muscle atrophy, no edema, no contractures Neuro: Speech clear, face symmetrical and CN II-XII grossly intact with no noted focal neuro deficits Psych: Alert and oriented to person, place, time, and situation. Appropriate and pleasant affect. Assessment and Plan of Care: Acute COPD exacerbation -Consult to Pulmonology -Oxygenation to be administered and titrated as needed to maintain SPO2 equal to or greater than 92%, currently requiring 3 L O2 -Telemetry monitoring. -Duonebs as needed for SOB and/or wheezing -Incentive Spirometry -Steroids: Solu-Medrol -Antibiotics: Azithromycin -Robitussin-AC every 6 hours as needed for cough Hypomagnesemia, resolved We will continue to monitor closely with repeat a.m. labs and replace abnormal electrolyte values as needed. Nicotine dependence -Patient to continue to receive education and encouragement on the importance of smoking cessation and the risks of continued use up to and including . -Nicotine patch Paroxysmal atrial fibrillation on anticoagulation with Xarelto -Continue anticoagulation with Xarelto Hypertension Monitor vital signs and continue daily medication regimen with metoprolol. Hyperlipidemia Continue daily medication regimen with atorvastatin. Heart healthy and carb consistent diet. Insulin-dependent diabetes mellitus type 2 Patient placed on glycemic protocol with NovoLog sliding scale. Restless leg syndrome -Continue daily medication regimen with Requip. CODE STATUS: Full code DVT prophylaxis: Xarelto Discussed with: Patient and RN Anticipated discharge date: Clinical course to determine Anticipated discharge place: Home A total of 45 minutes was spent on the care of this complex patient more than 50% of the time was spent in counseling and care coordination. Objective - Vital Signs Vital signs: Vital Signs Temp 97.1 F L 11/09/20 07:58 Pulse 88 11/09/20 08:25 Resp 18 11/09/20 07:58 BP 156/79 11/09/20 07:58 Pulse Ox 95 11/09/20 07:58 Intake & Output 11/08/20 11/09/20 11/09/20 18:59 06:59 18:59 Intake Total 240 Output Total 200 Balance 40 Weight 54.431 kg 54.431 kg Intake: Oral 240 Output: Urine 200 Other: Voiding Method Diaper Incontinent # Voids 1 - Labs CBC & Chem 7: 11/09/20 08:09 11/09/20 08:09 Labs: Abnormal Lab Results - Last 24 Hours (Table) 11/08/20 11/08/20 11/09/20 Range/Units 11:48 18:15 06:57 Sodium (137-145) mmol/L Creatinine 0.47 L (0.52-1.04) mg/dL Glucose 110 H (74-99) mg/dL POC Glucose (mg/dL) 315 H 262 H (75-99) mg/dL Magnesium 1.5 L (1.6-2.3) mg/dL 11/09/20 Range/Units 08:09 Sodium 136 L (137-145) mmol/L Creatinine 0.51 L (0.52-1.04) mg/dL Glucose 351 H (74-99) mg/dL POC Glucose (mg/dL) (75-99) mg/dL Magnesium (1.6-2.3) mg/dL <Ivonne Esparza - Last Filed: 11/09/20 20:02> Subjective Og Schaffer NP rendered care for this patient independently, reviewed the findings and plan as documented in the note above. I did not physically speak with or examine the patient on this date. Objective - Vital Signs Vital signs: Vital Signs Temp 97.6 F 11/09/20 18:48 Pulse 101 H 11/09/20 18:48 Resp 18 11/09/20 18:48 BP 114/65 11/09/20 18:48 Pulse Ox 97 11/09/20 18:48 Intake & Output 11/09/20 11/09/20 11/10/20 06:59 18:59 06:59 Intake Total 240 Output Total 200 Balance 40 Weight 54.431 kg Intake: Oral 240 Output: Urine 200 Other: Voiding Method Diaper Incontinent # Voids 1 3 - Labs CBC & Chem 7: 11/09/20 08:09 11/09/20 08:09 Labs: Abnormal Lab Results - Last 24 Hours (Table) 11/09/20 11/09/20 11/09/20 Range/Units 06:57 08:09 11:48 Sodium 136 L (137-145) mmol/L Creatinine 0.51 L (0.52-1.04) mg/dL Glucose 351 H (74-99) mg/dL POC Glucose (mg/dL) 262 H 271 H (75-99) mg/dL 11/09/20 Range/Units 16:34 Sodium (137-145) mmol/L Creatinine (0.52-1.04) mg/dL Glucose (74-99) mg/dL POC Glucose (mg/dL) 325 H (75-99) mg/dL
[2020-11-09 11:49] LABS: Glucose,Whole Blood 271 mg/dL (75-99)
[2020-11-09] MEDS: guaiFENesin-Coden 100-10MG/5ML 10 ML CUP PO PRN (12:12)
--- NOTE | 2020-11-09 12:44 | P.CNPUL ---
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 Mauri Jules, and patient follows with Dr. Olga vidales from medical oncology. Other medical history includes CAD with previous MN and stent placement, chronic atrial fibrillation on the Route toe, hypertension, hyperlipidemia, insulin-dependent diabetes mellitus, diverticulitis with previous history of bowel resection, restless leg syndrome. Patient is on Symbicort and Combivent on a regular basis. She however continues to smoke, and currently is down to less than half a pack per day. On 11/08/2020 patient presented to the emergency department with complaints of cough, congestion, shortness of breath and wheezing. This apparently has been going on for the past 3-4 days prior to admission. She denies any fever, no hemoptysis. No nausea vomiting or diarrhea. She was tested for COVID-19 and was found to be negative. She has not been vaccinated for COVID-19. She recently had follow-up computed tomography scan of the chest abdomen and pelvis and saw Dr. Webster in follow-up for her history of lung cancer. The computed tomography scan showed overall stable findings without new or enlarging suspicious masses or adenopathy to suggest active neoplastic recurrence. Chest x-ray the emergency department showed volume loss with left hemithorax, COPD, and stable left suprahilar nodularity compatible with tortuous vasculature, no evidence of acute pulmonary process. Patient was significantly dyspneic and bronchospastic, she was started on combination of azithromycin and Rocephin, IV steroids and nebulized bronchodilators. We were asked to see the patient in consultation Review of Systems All systems: negative Constitutional: Denies chills, Denies fever Eyes: denies blurred vision, denies pain Ears, nose, mouth and throat: Denies headache, Denies sore throat Cardiovascular: Denies chest pain, Denies shortness of breath Respiratory: Reports cough, Reports dyspnea Gastrointestinal: Denies abdominal pain, Denies diarrhea, Denies nausea, Denies vomiting Genitourinary: Denies dysuria, Denies hematuria Musculoskeletal: Denies myalgias Integumentary: Denies pruritus, Denies rash Neurological: Denies numbness, Denies weakness Psychiatric: Denies anxiety, Denies depression Endocrine: Denies fatigue, Denies weight change Past Medical History Past Medical History: Coronary Artery Disease (CAD), Diabetes Mellitus, Fibromyalgia, GERD/Reflux, Myocardial Infarction (MN) Additional Past Medical History / Comment(s): Idiopathic thrombocytopenia purpura, IBS, diverticulitis, hiatal hernia, 2 herniated discs-L3/L4, Restless L eg Syndrome, gastritis, superficial gastric ulcers. nodule on lt lung-Cancer Stg 1 Last Myocardial Infarction Date:: 01/2017 History of Any Multi-Drug Resistant Organisms: None Reported Past Surgical History: Adenoidectomy, Bladder Surgery, Bowel Resection, Cholecystectomy, Heart Catheterization With Stent, Hernia Repair, Hysterectomy, Tonsillectomy Additional Past Surgical History / Comment(s): BLADDER SUSPENSION x 2, breast biopsy x3, bowel resection due to rupture. left upper lobe of lung removed per CA, Past Anesthesia/Blood Transfusion Reactions: No Reported Reaction Additional Past Anesthesia/Blood Transfusion Reaction / Comment(s): Pt received blood in 2005 due to ITP without reaction. Date of Last Stent Placement:: 01/2017 Past Psychological History: Anxiety Additional Psychological History / Comment(s): . Smoking Status: Current every day smoker Past Alcohol Use History: None Reported Additional Past Alcohol Use History / Comment(s): STARTED SMOKING AT AGE 18- SMOKED 1PPD AND QUIT -2017 Past Drug Use History: None Reported - Past Family History Mother Family Medical History: Cancer, Diabetes Mellitus Additional Family Medical History / Comment(s): Father had a defibrillator. He of heart dx in his 80's Father Family Medical History: Diabetes Mellitus Additional Family Medical History / Comment(s): HEART DISEASE Medications and Allergies Home Medications Medication Instructions Recorded Confirmed Type ALPRAZolam 0.25 mg PO AC-BID PRN 11/03/15 11/08/20 History Pantoprazole [Protonix] 40 mg PO DAILY 01/14/17 11/08/20 History Budesonide-Formot 160-4.5 Mcg 2 puff INHALATION RT-BID 08/31/17 11/08/20 History [Symbicort 160-4.5 Mcg Inhaler] HYDROcodone/APAP 10-325MG [Byron 1 tab PO TID PRN 08/19/18 11/08/20 History 10-325] Insulin Detemir (Levemir) [Levemir] See Protocol SQ DAILY 08/27/18 11/08/20 History INSULIN ASPART (NovoLOG) [NovoLOG See Protocol SQ AC-TID 09/07/18 11/08/20 History (formulary)] traZODone HCL 50 mg PO HS 09/07/18 11/08/20 History Loperamide [Imodium] 2 mg PO TID PRN 01/13/19 11/08/20 History Metoprolol Succinate (ER) [Toprol 25 mg PO AC-SUPPER 01/13/19 11/08/20 History XL] Mirabegron [Myrbetriq] 25 mg PO AC-SUPPER 01/13/19 11/08/20 History Atorvastatin [Lipitor] 40 mg PO HS #30 tab 01/15/19 11/08/20 Rx Fenofibrate [Lofibra] 160 mg PO DAILY #30 tab 01/15/19 11/08/20 Rx Melatonin 3 mg PO HS tablet 01/15/19 11/08/20 Rx Nitroglycerin Sl Tabs [Nitrostat] 0.4 mg SUBLINGUAL Q5M PRN #25 tab 01/15/19 11/08/20 Rx rOPINIRole HCL [Requip] 0.25 mg PO TID #21 tablet 07/27/19 11/08/20 Rx Rivaroxaban [Xarelto] 2.5 mg PO BID 11/08/20 11/08/20 History lisinopriL [Zestril] 5 mg PO DAILY 11/08/20 11/08/20 History Allergies Allergy/AdvReac Type Severity Reaction Status Date / Time No Known Allergies Allergy Verified 11/08/20 11:51 Physical Exam Vitals: Vital Signs Temp Pulse Pulse Resp BP BP Pulse Ox 11/09/20 12:09 92 11/09/20 12:01 95 11/09/20 08:25 88 11/09/20 08:13 82 11/09/20 07:58 97.1 F L 96 18 156/79 95 11/09/20 04:09 88 11/09/20 03:58 88 11/09/20 02:00 97.7 F 89 18 103/63 95 11/09/20 00:03 100 11/08/20 23:52 96 11/08/20 21:20 97.7 F 98 19 120/75 92 L 11/08/20 20:32 94 20 110/62 95 11/08/20 20:08 98 24 132/57 95 11/08/20 20:04 100 11/08/20 19:49 100 11/08/20 17:42 97 16 115/55 95 11/08/20 15:46 96 11/08/20 15:35 96 96 11/08/20 13:03 96 20 96 11/08/20 12:58 95 Intake and Output 11/08/20 11/09/20 11/09/20 22:59 06:59 14:59 Intake Total 240 Output Total 200 Balance 40 Intake: Oral 240 Output: Urine 200 Other: Voiding Method Diaper Incontinent # Voids 1 1 Weight 54.431 kg GENERAL EXAM: Alert, very pleasant, 70-year-old white female, audibly wheezy and coughing, mildly dyspneic at rest, stay on 3 L of oxygen pulse ox of 95% comfortable in no apparent distress. HEAD: Normocephalic/atraumatic. EYES: Normal reaction of pupils, equal size. Conjunctiva pink, sclera white. NOSE: Clear with pink turbinates. THROAT: No erythema or exudates. NECK: No masses, no JVD, no thyroid enlargement, no adenopathy. CHEST: No chest wall deformity. Symmetrical expansion. LUNGS: Equal air entry with diffuse wheezes and rhonchi CVS: Regular rate and rhythm, normal S1 and S2, no gallops, no murmurs, no rubs ABDOMEN: Soft, nontender. No hepatosplenomegaly, normal bowel sounds, no guard ing or rigidity. EXTREMITIES: No clubbing, no edema, no cyanosis, 2+ pulses and upper and lower extremities. MUSCULOSKELETAL: Muscle strength and tone normal. SPINE: No scoliosis or deformity SKIN: No rashes CENTRAL NERVOUS SYSTEM: Alert and oriented -3. No focal deficits, tone is normal in all 4 extremities. PSYCHIATRIC: Alert and oriented -3. Appropriate affect. Intact judgment and insight. Results - Laboratory Findings CBC and BMP: 11/09/20 08:09 11/09/20 08:09 PT/INR, D-dimer PT 10.0 sec (9.0-12.0) 11/08/20 11:48 INR 0.9 (<1.2) 11/08/20 11:48 Abnormal lab findings: Abnormal Labs 11/08/20 11/08/20 11/09/20 11:48 18:15 06:57 Sodium Creatinine 0.47 L Glucose 110 H POC Glucose (mg/dL) 315 H 262 H Magnesium 1.5 L 11/09/20 11/09/20 08:09 11:48 Sodium 136 L Creatinine 0.51 L Glucose 351 H POC Glucose (mg/dL) 271 H Magnesium - Diagnostic Findings Chest x-ray: report reviewed, image reviewed CT scan - chest: report reviewed, image reviewed Assessment and Plan Plan: Assessment: #1. Acute exacerbation of chronic obstructive pulmonary disease, no definite acute pulmonary process on the chest x-ray. COVID-19 PCR was negative #2. History of left lung squamous cell carcinoma, status post left upper lobectomy in 2018, most recent follow-up computed tomography scan of the chest, abdomen and pelvis from a weight of 2020 showing no new or enlarging suspicious masses or adenopathy to suggest acute neoplastic recurrence #3. Chronic and ongoing history of smoking, currently down to half a pack a day #4. History of CAD with previous MN and stent placement #5. Chronic atrial fibrillation on 0 #6. Hypertension #7. Hyperlipidemia #8. Insulin-dependent diabetes mellitus type 2 #9. Diverticulitis with previous history of bowel resection #10. Restless leg syndrome Plan: Continue current antibiotics We will switch Symbicort to Pulmicort and Perforomist continue DuoNeb nebulized treatments 4 times a day around the clock and every 2 hours as needed for shortness of breath Recent follow-up computed tomography scan of the chest abdomen and pelvis have been reviewed showing no recurrent disease Smoking cessation has been advised We'll continue to follow I performed a history & physical examination of the patient and discussed their management with my nurse practitioner, Jewels Foster. I reviewed the nurse practitioner's note and agree with the documented findings and plan of care. Lung sounds are positive for diffuse wheezes throughout the lung nieves. The findings and the impression was discussed with the patient. I attest to the documentation by the nurse practitioner. Time with Patient: Greater than 30
[2020-11-09 16:35] LABS: Glucose,Whole Blood 325 mg/dL (75-99)
[2020-11-09] MEDS: NON FORMULARY DRUG (Mirabegron [Myrbetriq] 25 MG Tab.Er.24h) PO SCH (16:43)
[2020-11-09] MEDS: METOPROLOL SUCCINATE (ER) 25 MG TAB.ER.24H PO SCH (17:16)
[2020-11-09] MEDS: BUDESONIDE 1 MG/2 ML NEBU INHALATION SCH (20:33)
[2020-11-09] MEDS: FORMOTEROL FUMARATE 20 MCG/2 ML NEBU INHALATION SCH (20:34)
[2020-11-09 20:52] LABS: Glucose,Whole Blood 259 mg/dL (75-99)
[2020-11-09] MEDS: MELATONIN 3 MG TABLET PO SCH (21:46)
[2020-11-09] MEDS: traZODone HCL 50 MG TAB PO SCH (21:46)
[2020-11-09] MEDS: ATORVASTATIN 40 MG TAB PO SCH (21:46)
[2020-11-09] MEDS: ZOLPIDEM 5 MG TAB PO PRN (21:49)
[2020-11-10] MEDS: methylPREDNISolone SOD SUCCI 125 MG/2 ML VIAL IV SCH ×3 (05:39→17:18)
[2020-11-10 06:50] LABS: Glucose,Whole Blood 307 mg/dL (75-99)
[2020-11-10] MEDS: INSULIN ASPART (NovoLOG) 100 UNIT/ML VIAL SQ SCH ×7 (08:08→21:53)
[2020-11-10] MEDS: PANTOPRAZOLE 40 MG TABLET PO SCH (08:09)
[2020-11-10] MEDS: lisinopriL 5 MG TAB PO SCH (08:09)
[2020-11-10] MEDS: NICOTINE 21MG/24HR PATCH TRANSDERM SCH (08:09)
[2020-11-10] MEDS: FENOFIBRATE 160 MG TAB PO SCH (08:09)
[2020-11-10] MEDS: FORMOTEROL FUMARATE 20 MCG/2 ML NEBU INHALATION SCH ×2 (08:10→20:09)
[2020-11-10] MEDS: RIVAROXABAN 2.5 MG TABLET PO SCH ×2 (08:10→21:55)
[2020-11-10] MEDS: BUDESONIDE 1 MG/2 ML NEBU INHALATION SCH ×3 (08:10→20:09)
[2020-11-10] MEDS: AZITHROMYCIN 500 MG TAB PO SCH (08:10)
[2020-11-10] MEDS: IPRATROPIUM-ALBUTEROL 3 ML NEB INHALATION SCH ×4 (08:10→20:09)
--- NOTE | 2020-11-10 08:47 | P.PN ---
<Og Schaffer - Last Filed: 11/10/20 16:48> Subjective Progress Note Date: 11/10/20 Hospital Course: Patient is a 70-year-old female with a past medical history of CAD with previous NM and stent placement, atrial fibrillation on anticoagulation with Xarelto, hypertension, hyperlipidemia, insulin-dependent diabetes mellitus type 2, diverticulitis with previous bowel resections, restless leg syndrome, lung cancer resulting in left upper lobe lobectomy, and COPD not on home oxygen dependent but with continued nicotine dependence. Patient presented to the emergency department with a chief complaint of increasing shortness of breath, cough, and congestion over the past few days. She was seen and fully evaluated in the emergency department. A chest x-ray revealed hyperinflation of right lung consistent with COPD. EKG showing sinus tachycardia at 103 bpm with no noted T-wave or ST abnormalities showing no signs of acute ischemia. Vital signs reviewed and stable. Patient reportedly 88% room air requiring oxygen supplementation. Currently patient on 2 L O2 via nasal cannula with SpO2 94- 95%. Patient being admitted for COPD exacerbation. Covid 19 PCR was negative, troponin negative at less than 0.012, and proBNP 1020. Patient was found to have significant hypomagnesemia with magnesium of 1.5, replaced. Patient admitted under our services with consultation to pulmonology. Patient denies history of Covid 19 virus infection and denies having Covid vaccinations. Physical exam: Patient seen and fully evaluated at the bedside. She reports continued persistent shortness of breath and continues to display conversational dyspnea. She does report improvement in her cough since initiation of Robitussin-AC. She remains on 3 L O2 via nasal cannula with SpO2 95% at time of assessment. Patienthas been ambulatory to and from restroom without difficulties or experiencing any increased oxygenation needs during that time. Patient with good appetite and reports completing entire breakfast this morning. She con tinues to deny having any headache, lightheadedness, dizziness, chest pain, palpitations, abdominal pain, nausea, or vomiting. Vital signs reviewed and stable. General: Nontoxic, no distress and appears stated age. Derm: Skin warm and dry, normal coloration for ethnicity. Head: Atraumatic, normocephalic and symmetric. Eyes: EOMs intact, no lid lag, and anicteric sclera Mouth: no lip lesions, mucus membranes moist Cardiovascular: regular rate and rhythm with normal S1S2, no murmur, positive posterior tibial pulses bilaterally, and cap refill < 2 seconds. Lungs: Respirations even, regular, and unlabored this morning with no noted accessory muscle usage. Lungs remain significantly wheezy throughout all nieves. No rhonchi, rales, or crackles noted. coarse cough present. Remains on 3 L O2 Abdominal: soft, nontender to palpation, no guarding, no appreciable organomegaly Ext: ROM intact. No gross muscle atrophy, no edema, no contractures Neuro: Speech clear, face symmetrical and CN II-XII grossly intact with no noted focal neuro deficits Psych: Alert and oriented to person, place, time, and situation. Appropriate and pleasant affect. Assessment and Plan of Care: Acute COPD exacerbation -Consult to Pulmonology -Oxygenation to be administered and titrated as needed to maintain SPO2 equal to or greater than 92%, currently requiring 3 L O2, wean as patient tolerates -Telemetry monitoring. -Duonebs as needed for SOB and/or wheezing -Incentive Spirometry -Steroids: Solu-Medrol -Antibiotics: Azithromycin -Robitussin-AC every 6 hours as needed for cough Hypomagnesemia, resolved We will continue to monitor closely with repeat a.m. labs and replace abnormal electrolyte values as needed. Nicotine dependence -Patient to continue to receive education and encouragement on the importance of smoking cessation and the risks of continued use up to and including . -Nicotine patch Paroxysmal atrial fibrillation on anticoagulation with Xarelto -Continue anticoagulation with Xarelto Hypertension Monitor vital signs and continue daily medication regimen with metoprolol. Hyperlipidemia Continue daily medication regimen with atorvastatin. Heart healthy and carb consistent diet. Insulin-dependent diabetes mellitus type 2 Patient placed on glycemic protocol with NovoLog sliding scale. Restless leg syndrome -Continue daily medication regimen with Requip. CODE STATUS: Full code DVT prophylaxis: Xarelto Discussed with: Patient and RN Anticipated discharge date: Clinical course to determine Anticipated discharge place: Home A total of 45 minutes was spent on the care of this complex patient more than 50% of the time was spent in counseling and care coordination. Objective - Vital Signs Vital signs: Vital Signs Temp 98.1 F 11/10/20 07:47 Pulse 71 11/10/20 07:47 Resp 18 11/10/20 07:47 BP 154/65 11/10/20 07:47 Pulse Ox 98 11/10/20 07:47 Intake & Output 11/09/20 11/10/20 11/10/20 18:59 06:59 18:59 Other: Voiding Method Diaper Incontinent # Voids 3 - Labs CBC & Chem 7: 11/09/20 08:09 11/09/20 08:09 Labs: Abnormal Lab Results - Last 24 Hours (Table) 11/09/20 11/09/20 11/09/20 Range/Units 11:48 16:34 20:51 POC Glucose (mg/dL) 271 H 325 H 259 H (75-99) mg/dL 11/10/20 Range/Units 06:49 POC Glucose (mg/dL) 307 H (75-99) mg/dL <Ivonne Esparza A - Last Filed: 11/10/20 20:09> Subjective Og Schaffer NP rendered care for this patient independently, reviewed the findings and plan as documented in the note above. I did not physically speak with or examine the patient on this date. Objective - Vital Signs Vital signs: Vital Signs Temp 97.9 F 11/10/20 14:00 Pulse 95 11/10/20 16:31 Resp 18 11/10/20 14:00 BP 106/63 11/10/20 14:00 Pulse Ox 98 11/10/20 14:00 Intake & Output 11/10/20 11/10/20 11/11/20 06:59 18:59 06:59 Other: Voiding Method Diaper Incontinent # Voids 4 - Labs CBC & Chem 7: 11/09/20 08:09 11/09/20 08:09 Labs: Abnormal Lab Results - Last 24 Hours (Table) 11/09/20 11/10/20 11/10/20 Range/Units 20:51 06:49 11:08 POC Glucose (mg/dL) 259 H 307 H 371 H (75-99) mg/dL 11/10/20 Range/Units 16:41 POC Glucose (mg/dL) 275 H (75-99) mg/dL
[2020-11-10] MEDS: guaiFENesin-Coden 100-10MG/5ML 10 ML CUP PO PRN ×2 (10:01→17:21)
[2020-11-10 11:10] LABS: Glucose,Whole Blood 371 mg/dL (75-99)
[2020-11-10] MEDS: HYDROcodone/APAP 10-325MG 1 EACH TAB PO PRN ×2 (12:20→21:55)
--- NOTE | 2020-11-10 16:29 | P.PN ---
Subjective Progress Note Date: 11/10/20 Principal diagnosis: Dyspnea, cough, wheezing This is a 70-year-old white female patient past medical history of COPD not oxygen dependent at baseline, history of squamous cell lung cancer status post left upper lobectomy [place] [address] Mauri Jules, and patient follows with Dr. Webster from medical oncology. Other medical history includes CAD with previous MA and stent placement, chronic atrial fibrillation on the Route toe, hypertension, hyperlipidemia, insulin-dependent diabetes mellitus, diverticulitis with previous history of bowel resection, restless leg syndrome. Patient is on Symbicort and Combivent on a regular basis. She however continues to smoke, and currently is down to less than half a pack per day. On 11/08/2020 patient presented to the emergency department with complaints of cough, congestion, shortness of breath and wheezing. This apparently has been going on for the past 3-4 days prior to admission. She denies any fever, no hemoptysis. No naus ea vomiting or diarrhea. She was tested for COVID-19 and was found to be negative. She has not been vaccinated for COVID-19. She recently had follow-up computed tomography scan of the chest abdomen and pelvis and saw Dr. Webster in follow-up for her history of lung cancer. The computed tomography scan showed overall stable findings without new or enlarging suspicious masses or adenopathy to suggest active neoplastic recurrence. Chest x-ray the emergency department showed volume loss with left hemithorax, COPD, and stable left suprahilar nodularity compatible with tortuous vasculature, no evidence of acute pulmonary process. Patient was significantly dyspneic and bronchospastic, she was started on combination of azithromycin and Rocephin, IV steroids and nebulized bronchodilators. We were asked to see the patient in consultation On November 10, 2020 patient is seen in follow-up on medical surgical floor. She still quite bronchospastic and dyspneic. She is still coughing, she states she does not feel much improved. Although physical exam today reveals slightly improved lung sounds, still with diffuse wheezing. Patient remains on IV Solu- Medrol 60 every 6 hours, she is on azithromycin, Pulmicort, Perforomist. No hemoptysis, no chest discomfort, patient is able to ambulate to the bathroom without significant distress. Objective - Vital Signs Vital signs: Vital Signs Temp 97.9 F 11/10/20 14:00 Pulse 94 11/10/20 14:00 Resp 18 11/10/20 14:00 BP 106/63 11/10/20 14:00 Pulse Ox 98 11/10/20 14:00 Intake & Output 11/09/20 11/10/20 11/10/20 18:59 06:59 18:59 Other: Voiding Method Diaper Incontinent # Voids 3 - Exam GENERAL EXAM: Alert, very pleasant, 70-year-old white female, audibly wheezy and coughing, mildly dyspneic at rest, stay on 3 L of oxygen pulse ox of 95% comfortable in no apparent distress. HEAD: Normocephalic/atraumatic. EYES: Normal reaction of pupils, equal size. Conjunctiva pink, sclera white. NOSE: Clear with pink turbinates. THROAT: No erythema or exudates. NECK: No masses, no JVD, no thyroid enlargement, no adenopathy. CHEST: No chest wall deformity. Symmetrical expansion. LUNGS: Equal air entry with diffuse wheezes and rhonchi CVS: Regular rate and rhythm, normal S1 and S2, no gallops, no murmurs, no rubs ABDOMEN: Soft, nontender. No hepatosplenomegaly, normal bowel sounds, no guarding or rigidity. EXTREMITIES: No clubbing, no edema, no cyanosis, 2+ pulses and upper and lower extremities. MUSCULOSKELETAL: Muscle strength and tone normal. SPINE: No scoliosis or deformity SKIN: No rashes CENTRAL NERVOUS SYSTEM: Alert and oriented -3. No focal deficits, tone is normal in all 4 extremities. PSYCHIATRIC: Alert and oriented -3. Appropriate affect. Intact judgment and insight. - Labs CBC & Chem 7: 11/09/20 08:09 11/09/20 08:09 Labs: Abnormal Lab Results - Last 24 Hours (Table) 11/09/20 11/09/20 11/10/20 Range/Units 16:34 20:51 06:49 POC Glucose (mg/dL) 325 H 259 H 307 H (75-99) mg/dL 11/10/20 Range/Units 11:08 POC Glucose (mg/dL) 371 H (75-99) mg/dL Assessment and Plan Plan: Assessment: #1. Acute exacerbation of chronic obstructive pulmonary disease, no definite acute pulmonary process on the chest x-ray. COVID-19 PCR was negative #2. History of left lung squamous cell carcinoma, status post left upper lobectomy in 2018, most recent follow-up computed tomography scan of the chest, abdomen and pelvis from a weight of 2020 showing no new or enlarging suspicious masses or adenopathy to suggest acute neoplastic recurrence #3. Chronic and ongoing history of smoking, currently down to half a pack a day #4. History of CAD with previous MA and stent placement #5. Chronic atrial fibrillation on Xarelto #6. Hypertension #7. Hyperlipidemia #8. Insulin-dependent diabetes mellitus type 2 #9. Diverticulitis with previous history of bowel resection #10. Restless leg syndrome Plan: Continue high-dose IV steroids Continue nebulized bronchodilators Continue antibiotics Still quite bronchospastic and dyspneic We'll continue to follow I performed a history & physical examination of the patient and discussed their management with my nurse practitioner, Jewels Foster. I reviewed the nurse practitioner's note and agree with the documented findings and plan of care. Lung sounds are positive for diffuse wheezes throughout the lung nieves. The findings and the impression was discussed with the patient. I attest to the documentation by the nurse practitioner. Time with Patient: Less than 30
[2020-11-10 16:42] LABS: Glucose,Whole Blood 275 mg/dL (75-99)
[2020-11-10] MEDS: METOPROLOL SUCCINATE (ER) 25 MG TAB.ER.24H PO SCH (17:16)
[2020-11-10] MEDS: NON FORMULARY DRUG (Mirabegron [Myrbetriq] 25 MG Tab.Er.24h) PO SCH (17:20)
[2020-11-10 20:54] LABS: Glucose,Whole Blood 268 mg/dL (75-99)
[2020-11-10] MEDS: traZODone HCL 50 MG TAB PO SCH (21:53)
[2020-11-10] MEDS: ATORVASTATIN 40 MG TAB PO SCH (21:53)
[2020-11-10] MEDS: MELATONIN 3 MG TABLET PO SCH (21:53)
[2020-11-11] MEDS: methylPREDNISolone SOD SUCCI 125 MG/2 ML VIAL IV SCH ×5 (01:47→23:23)
[2020-11-11] MEDS: guaiFENesin-Coden 100-10MG/5ML 10 ML CUP PO PRN ×4 (01:51→23:29)
[2020-11-11 06:43] LABS: Glucose,Whole Blood 334 mg/dL (75-99)
[2020-11-11] MEDS: RIVAROXABAN 2.5 MG TABLET PO SCH ×2 (07:38→21:03)
[2020-11-11] MEDS: FENOFIBRATE 160 MG TAB PO SCH (07:38)
[2020-11-11] MEDS: lisinopriL 5 MG TAB PO SCH (07:38)
[2020-11-11] MEDS: NICOTINE 21MG/24HR PATCH TRANSDERM SCH (07:38)
[2020-11-11] MEDS: INSULIN ASPART (NovoLOG) 100 UNIT/ML VIAL SQ SCH ×7 (07:39→21:01)
[2020-11-11] MEDS: AZITHROMYCIN 500 MG TAB PO SCH (07:39)
[2020-11-11] MEDS: PANTOPRAZOLE 40 MG TABLET PO SCH (07:39)
[2020-11-11] MEDS: FORMOTEROL FUMARATE 20 MCG/2 ML NEBU INHALATION SCH ×2 (08:57→21:13)
[2020-11-11] MEDS: BUDESONIDE 1 MG/2 ML NEBU INHALATION SCH ×2 (08:58→21:13)
[2020-11-11] MEDS: IPRATROPIUM-ALBUTEROL 3 ML NEB INHALATION SCH ×4 (08:58→21:13)
[2020-11-11 11:44] LABS: Glucose,Whole Blood 321 mg/dL (75-99)
[2020-11-11] MEDS: INSULIN DETEMIR (LEVEMIR) 100 UNIT/ML SYR SQ SCH (12:03)
[2020-11-11] MEDS: HYDROcodone/APAP 10-325MG 1 EACH TAB PO PRN ×2 (12:04→21:03)
[2020-11-11] MEDS: ALPRAZolam 0.25 MG TAB PO PRN ×2 (12:09→18:26)
--- NOTE | 2020-11-11 14:57 | P.PN ---
Subjective Progress Note Date: 11/11/20 11/11/2020, the patient remains bronchospastic and wheezy and short of breath. Note that the patient is known to have COPD and previous history of squamous cell carcinoma for which the patient underwent a left upper lobe resection back in 2018. The patient is bronchospastic and wheezy and short of breath. She remains on a combination of treatment including Perforomist and Pulmicort neb last treatment twice a day, DuoNeb nebulized treatment 4 times a day and she is also on IV Solu Medrol 60 mg every 6 hours. Unable to bring up much sputum. No significant hemoptysis. No pleurisy. She is also on examination Rocephin and Zithromax. She is afebrile. She was updated about 2 by nasal cannula with a pulse ox of 96%. The chest x-ray that was not time of admission showed some postsurgical changes in the left lung. Her most recent CAT scan of the chest that was done on 10/26/2020 in combination with CAT scan of the abdomen and pelvis showed overall stable findings and there was no new or enlarging suspicious masses or lymphadenopathy to suggest active neoplastic recurrence. Objective - Vital Signs Vital signs: Vital Signs Temp 97.8 F 11/11/20 14:30 Pulse 102 H 11/11/20 14:30 Resp 18 11/11/20 14:30 BP 125/76 11/11/20 14:30 Pulse Ox 96 11/11/20 14:30 Intake & Output 11/10/20 11/11/20 11/11/20 18:59 06:59 18:59 Other: Voiding Method Diaper Toilet Incontinent # Voids 4 2 # Bowel Movements 0 - Exam GENERAL EXAM: Alert, very pleasant, 70-year-old white female, audibly wheezy and coughing, mildly dyspneic at rest, stay on 3 L of oxygen pulse ox of 95% comfortable in no apparent distress. HEAD: Normocephalic/atraumatic. EYES: Normal reaction of pupils, equal size. Conjunctiva pink, sclera white. NOSE: Clear with pink turbinates. THROAT: No erythema or exudates. NECK: No masses, no JVD, no thyroid enlargement, no adenopathy. CHEST: No chest wall deformity. Symmetrical expansion. LUNGS: Equal air entry with diffuse wheezes and rhonchi CVS: Regular rate and rhythm, normal S1 and S2, no gallops, no murmurs, no rubs ABDOMEN: Soft, nontender. No hepatosplenomegaly, normal bowel sounds, no guardi ng or rigidity. EXTREMITIES: No clubbing, no edema, no cyanosis, 2+ pulses and upper and lower extremities. MUSCULOSKELETAL: Muscle strength and tone normal. SPINE: No scoliosis or deformity SKIN: No rashes CENTRAL NERVOUS SYSTEM: Alert and oriented -3. No focal deficits, tone is normal in all 4 extremities. PSYCHIATRIC: Alert and oriented -3. Appropriate affect. Intact judgment and insight. - Labs CBC & Chem 7: 11/09/20 08:09 11/09/20 08:09 Labs: Abnormal Lab Results - Last 24 Hours (Table) 11/10/20 11/10/20 11/11/20 Range/Units 16:41 20:41 06:41 POC Glucose (mg/dL) 275 H 268 H 334 H (75-99) mg/dL 11/11/20 Range/Units 11:43 POC Glucose (mg/dL) 321 H (75-99) mg/dL Assessment and Plan Plan: #1. Acute exacerbation of chronic obstructive pulmonary disease, no definite acute pulmonary process on the chest x-ray. COVID-19 PCR was negative. The patient has showed limited improvement over the past 24 hours. Would suggest containing the same treatment course anticipating some improvement in her acute COPD exacerbation. The patient remains bronchospastic and wheezy with some limited improvement over the past 24 hours #2. History of left lung squamous cell carcinoma, status post left upper lobectomy in 2018, most recent follow-up computed tomography scan of the chest, abdomen and pelvis from a weight of 2020 showing no new or enlarging suspicious masses or adenopathy to suggest acute neoplastic recurrence #3. Chronic and ongoing history of smoking, currently down to half a pack a day #4. History of CAD with previous ME and stent placement #5. Chronic atrial fibrillation on Xarelto #6. Hypertension #7. Hyperlipidemia #8. Insulin-dependent diabetes mellitus type 2 #9. Diverticulitis with previous history of bowel resection #10. Restless leg syndrome Plan: Continue high-dose IV steroids Continue nebulized bronchodilators Continue antibiotics Still quite bronchospastic and dyspneic Discussed with the patient the possibility of bronchoscopy and bronchial lavage if if her condition remains unchanged. This will not be possible for now as the patient is actively bronchus spastic and wheezy and she may not tolerate the procedure. repeat chest x-ray in the morning. Stay on same treatment course.
--- NOTE | 2020-11-11 15:36 | P.PN ---
<Og Schaffer - Last Filed: 11/11/20 15:02> Subjective Progress Note Date: 11/11/20 Hospital Course: Patient is a 70-year-old female with a past medical history of CAD with previous RI and stent placement, atrial fibrillation on anticoagulation with Xarelto, hypertension, hyperlipidemia, insulin-dependent diabetes mellitus type 2, diverticulitis with previous bowel resections, restless leg syndrome, lung cancer resulting in left upper lobe lobectomy, and COPD not on home oxygen dependent but with continued nicotine dependence. Patient presented to the emergency department with a chief complaint of increasing shortness of breath, cough, and congestion over the past few days. She was seen and fully evaluated in the emergency department. A chest x-ray revealed hyperinflation of right lung consistent with COPD. EKG showing sinus tachycardia at 103 bpm with no noted T-wave or ST abnormalities showing no signs of acute ischemia. Vital signs reviewed and stable. Patient reportedly 88% room air requiring oxygen supplementation. Currently patient on 2 L O2 via nasal cannula with SpO2 94- 95%. Patient being admitted for COPD exacerbation. Covid 19 PCR was negative, troponin negative at less than 0.012, and proBNP 1020. Patient was found to have significant hypomagnesemia with magnesium of 1.5, replaced. Patient admitted under our services with consultation to pulmonology. Patient denies history of Covid 19 virus infection and denies having Covid vaccinations. Physical exam: 11/11/20: Patient seen and fully evaluated at the bedside. She reports continued persistent shortness of breath and continues to display conversational dyspnea. Her oxygen saturations were 99% on 3 L and patient was turned down to 2 L at this time with SpO2 maintaining a 94%. She remains on Solu-Medrol 60 mg IVP every 6 hours, scheduled and as needed DuoNeb, azithromycin, Pulmicort, formoterol, and Robitussin-AC. She continues to deny having any headache, lightheadedness, dizziness, chest pain, palpitations, abdominal pain, nausea, or vomiting. Patient has been ambulatory in room without any reported difficulties. Vital signs reviewed and stable. General: Nontoxic, no distress and appears stated age. Derm: Skin warm and dry, normal coloration for ethnicity. Head: Atraumatic, normocephalic and symmetric. Eyes: EOMs intact, no lid lag, and anicteric sclera Mouth: no lip lesions, mucus membranes moist Cardiovascular: regular rate and rhythm with normal S1S2, no murmur, positive posterior tibial pulses bilaterally, and cap refill < 2 seconds. Lungs: Respirations even, regular, and unlabored this morning with no noted acc essory muscle usage. Lungs remain significantly wheezy throughout all nieves. No rhonchi, rales, or crackles noted. coarse cough present. Decreased oxygen to 2L O2 and pt tolerating well Abdominal: soft, nontender to palpation, no guarding, no appreciable organomegaly Ext: ROM intact. No gross muscle atrophy, no edema, no contractures Neuro: Speech clear, face symmetrical and CN II-XII grossly intact with no noted focal neuro deficits Psych: Alert and oriented to person, place, time, and situation. Appropriate and pleasant affect. Assessment and Plan of Care: Acute COPD exacerbation -Pulmonology following, reporting they may consider bronchoscopy and bronchial lavage if patient's condition remains unchanged but is not able to complete at this time secondary to active bronchospasms and patient's unlikely inability to tolerate the procedure. -Oxygenation to be administered and titrated as needed to maintain SPO2 equal to or greater than 92%, currently requiring 2L O2, continue to wean as patient tolerates -Telemetry monitoring. -Duonebs scheduled and as needed for SOB and/or wheezing -Incentive Spirometry -Steroids: Solu-Medrol 60 mg IVP every 6 hours -Antibiotics: Azithromycin -Robitussin-AC every 6 hours as needed for cough -Continue Pulmicort and formoterol -Repeat chest x-ray in a.m. Hypomagnesemia, resolved We will continue to monitor closely with repeat a.m. labs and replace abnormal electrolyte values as needed. Nicotine dependence -Patient to continue to receive education and encouragement on the importance of smoking cessation and the risks of continued use up to and including . -Nicotine patch Paroxysmal atrial fibrillation on anticoagulation with Xarelto -Continue anticoagulation with Xarelto Hypertension Monitor vital signs and continue daily medication regimen with metoprolol. Hyperlipidemia Continue daily medication regimen with atorvastatin. Heart healthy and carb consistent diet. Insulin-dependent diabetes mellitus type 2 with hyperglycemia Patient placed on glycemic protocol with NovoLog sliding scale and due to persistent hyperglycemia a fixed dose of Novolog 5 units also ordered and to be given along with the sliding scale before meals at bedtime. Payam Kiran. Restless leg syndrome -Continue daily medication regimen with Requip. CODE STATUS: Full code DVT prophylaxis: Xarelto Discussed with: Patient and RN Anticipated discharge date: Clinical course to determine Anticipated discharge place: Home A total of 45 minutes was spent on the care of this complex patient more than 50% of the time was spent in counseling and care coordination. Objective - Vital Signs Vital signs: Vital Signs Temp 97.6 F 11/11/20 07:32 Pulse 78 11/11/20 07:32 Resp 17 11/11/20 07:32 BP 106/61 11/11/20 07:32 Pulse Ox 99 11/11/20 07:32 Intake & Output 11/10/20 11/11/20 11/11/20 18:59 06:59 18:59 Other: Voiding Method Diaper Toilet Incontinent # Voids 4 2 # Bowel Movements 0 - Labs CBC & Chem 7: 11/09/20 08:09 11/09/20 08:09 Labs: Abnormal Lab Results - Last 24 Hours (Table) 11/10/20 11/10/20 11/10/20 Range/Units 11:08 16:41 20:41 POC Glucose (mg/dL) 371 H 275 H 268 H (75-99) mg/dL 11/11/20 Range/Units 06:41 POC Glucose (mg/dL) 334 H (75-99) mg/dL <Ivonne Esparza - Last Filed: 11/11/20 18:30> Subjective Og Schaffer NP rendered care for this patient independently, reviewed the findings and plan as documented in the note above. I did not physically speak with or examine the patient on this date. Objective - Vital Signs Vital signs: Vital Signs Temp 97.8 F 11/11/20 14:30 Pulse 90 11/11/20 17:27 Resp 18 11/11/20 14:30 BP 125/76 11/11/20 14:30 Pulse Ox 96 11/11/20 14:30 Intake & Output 11/10/20 11/11/20 11/11/20 18:59 06:59 18:59 Other: Voiding Method Diaper Toilet Incontinent # Voids 4 2 6 # Bowel Movements 0 - Labs CBC & Chem 7: 11/09/20 08:09 11/09/20 08:09 Labs: Abnormal Lab Results - Last 24 Hours (Table) 11/10/20 11/11/20 11/11/20 Range/Units 20:41 06:41 11:43 POC Glucose (mg/dL) 268 H 334 H 321 H (75-99) mg/dL 11/11/20 Range/Units 16:48 POC Glucose (mg/dL) 335 H (75-99) mg/dL
[2020-11-11 16:49] LABS: Glucose,Whole Blood 335 mg/dL (75-99)
[2020-11-11] MEDS: NON FORMULARY DRUG (Mirabegron [Myrbetriq] 25 MG Tab.Er.24h) PO SCH (17:29)
[2020-11-11] MEDS: METOPROLOL SUCCINATE (ER) 25 MG TAB.ER.24H PO SCH (17:41)
[2020-11-11 20:46] LABS: Glucose,Whole Blood 336 mg/dL (75-99)
[2020-11-11] MEDS: ATORVASTATIN 40 MG TAB PO SCH (21:02)
[2020-11-11] MEDS: traZODone HCL 50 MG TAB PO SCH (21:02)
[2020-11-11] MEDS: MELATONIN 3 MG TABLET PO SCH (21:07)
[2020-11-11] MEDS: ZOLPIDEM 5 MG TAB PO PRN (23:23)
[2020-11-12] MEDS: methylPREDNISolone SOD SUCCI 125 MG/2 ML VIAL IV SCH ×3 (05:31→17:19)
[2020-11-12] MEDS: ALPRAZolam 0.25 MG TAB PO PRN ×3 (05:34→21:57)
[2020-11-12] MEDS: guaiFENesin-Coden 100-10MG/5ML 10 ML CUP PO PRN ×3 (05:41→21:57)
[2020-11-12 07:10] LABS: Glucose,Whole Blood 266 mg/dL (75-99)
--- NOTE | 2020-11-12 08:45 | XR ---
EXAMINATION TYPE: XR chest 1V DATE OF EXAM: 11/12/2020 COMPARISON: 11/08/2020 HISTORY: Shortness of breath TECHNIQUE: Single frontal view of the chest is obtained. FINDINGS: Elevated left hemidiaphragm with pleural thickening or tiny effusion. Nodular prominence o f the left hilum. Atherosclerotic change aorta. Volume loss involving the left hemithorax. Correlate for COPD. No overt failure. IMPRESSION: 1. COPD
[2020-11-12] MEDS: IPRATROPIUM-ALBUTEROL 3 ML NEB INHALATION SCH ×4 (09:07→20:41)
[2020-11-12] MEDS: BUDESONIDE 1 MG/2 ML NEBU INHALATION SCH ×2 (09:07→20:41)
[2020-11-12] MEDS: FORMOTEROL FUMARATE 20 MCG/2 ML NEBU INHALATION SCH ×2 (09:09→20:41)
[2020-11-12 10:13] LABS: Glucose,Whole Blood 411 mg/dL (75-99)
[2020-11-12] MEDS: INSULIN DETEMIR (LEVEMIR) 100 UNIT/ML SYR SQ SCH (10:13)
[2020-11-12] MEDS: INSULIN ASPART (NovoLOG) 100 UNIT/ML VIAL SQ SCH ×7 (10:14→21:56)
[2020-11-12] MEDS: FENOFIBRATE 160 MG TAB PO SCH (10:16)
[2020-11-12] MEDS: lisinopriL 5 MG TAB PO SCH (10:16)
[2020-11-12] MEDS: PANTOPRAZOLE 40 MG TABLET PO SCH (10:16)
[2020-11-12] MEDS: AZITHROMYCIN 500 MG TAB PO SCH (10:17)
[2020-11-12] MEDS: RIVAROXABAN 2.5 MG TABLET PO SCH ×2 (10:17→21:56)
[2020-11-12] MEDS: NICOTINE 21MG/24HR PATCH TRANSDERM SCH (10:18)
[2020-11-12 11:11] LABS: HCT 43.1 % (37.2-46.3); HGB 13.6 g/dL (12.0-15.0); MCH 27.9 pg (27.0-32.0); MCHC 31.6 g/dL (32.0-37.0); MCV 88.3 fL (80.0-97.0); Platelet Count 243 X 10*3/uL (140-440); RBC 4.88 X 10*6/uL (4.10-5.20); RDW 13.3 % (11.5-14.5)
[2020-11-12 11:22] LABS: Glucose,Whole Blood 441 mg/dL (75-99)
[2020-11-12 11:22] LABS: African American GFR (CKD) 100.3 (60.0-200.0); Anion Gap 8.6 mmol/L (4.00-12.00); BUN/Creat Ratio 35.71 Ratio (12.00-20.00); Calcium 9.6 mg/dL (8.7-10.3); Carbon Dioxide 30.4 mmol/L (21.6-31.8); Magnesium 2.4 mg/dL (1.5-2.4); Non-African American GFR(CKD) 86.6 (60.0-200.0); Potassium 4.8 mmol/L (3.5-5.5)
--- NOTE | 2020-11-12 16:03 | P.PN ---
<Og Schaffer - Last Filed: 11/12/20 15:50> Subjective Progress Note Date: 11/12/20 Hospital Course: Patient is a 70-year-old female with a past medical history of CAD with previous [place] and stent placement, atrial fibrillation on anticoagulation with Xarelto, hypertension, hyperlipidemia, insulin-dependent diabetes mellitus type 2, diverticulitis with previous bowel resections, restless leg syndrome, lung cancer resulting in left upper lobe lobectomy, and COPD not on home oxygen dependent but with continued nicotine dependence. Patient presented to the emergency department with a chief complaint of increasing shortness of breath, cough, and congestion over the past few days. She was seen and fully evaluated in the emergency department. A chest x-ray revealed hyperinflation of right lung consistent with COPD. EKG showing sinus tachycardia at 103 bpm with no noted T-wave or ST abnormalities showing no signs of acute ischemia. Vital signs reviewed and stable. Patient reportedly 88% room air requiring oxygen supplementation. Currently patient on 2 L O2 via nasal cannula with SpO2 94- 95%. Patient being admitted for COPD exacerbation. Covid 19 PCR was negative, troponin negative at less than 0.012, and proBNP 1020. Patient was found to have significant hypomagnesemia with magnesium of 1.5, replaced. Patient admitted under our services with consultation to pulmonology. Patient denies history of Covid 19 virus infection and denies having Covid vaccinations. Physical exam: 11/12/20: Patient seen and fully evaluated at the bedside. She reports continued persistent shortness of breath and continues to display conversational dyspnea. Her oxygen saturations were 95% on 2L. She remains on Solu-Medrol 60 mg IVP every 6 hours, scheduled and as needed DuoNeb, azithromycin, Pulmicort, formoterol, and Robitussin-AC. She continues to deny having any headache, lightheadedness, dizziness, chest pain, palpitations, abdominal pain, nausea, or vomiting. Patient has been ambulatory in room without any reported difficulties. Repeat x-ray completed this morning consistent with COPD. Vital signs reviewed and stable. General: Nontoxic, no distress and appears stated age. Derm: Skin warm and dry, normal coloration for ethnicity. Head: Atraumatic, normocephalic and symmetric. Eyes: EOMs intact, no lid lag, and anicteric sclera Mouth: no lip lesions, mucus membranes moist Cardiovascular: regular rate and rhythm with normal S1S2, no murmur, positive posterior tibial pulses bilaterally, and cap refill < 2 seconds. Lungs: Respirations even, regular, and unlabored this morning with no noted accessory muscle usage. Lungs remain significantly wheezy throughout all nieves. No rhonchi, rales, or crackles noted. coarse cough present. Currently on 2 L O2 with SpO2 95%. Abdominal: soft, nontender to palpation, no guarding, no appreciable organomegaly Ext: ROM intact. No gross muscle atrophy, no edema, no contractures Neuro: Speech clear, face symmetrical and CN II-XII grossly intact with no noted focal neuro deficits Psych: Alert and oriented to person, place, time, and situation. Appropriate and pleasant affect. Assessment and Plan of Care: Acute COPD exacerbation -Pulmonology following, reporting they may consider bronchoscopy and bronchial lavage if patient's condition remains unchanged but is not able to complete at this time secondary to active bronchospasms and patient's unlikely inability to tolerate the procedure at this time. -Oxygenation to be administered and titrated as needed to maintain SPO2 equal to or greater than 92%, currently requiring 2L O2, continue to wean as patient t olerates -Telemetry monitoring. -Duonebs scheduled and as needed for SOB and/or wheezing -Incentive Spirometry -Steroids: Solu-Medrol 60 mg IVP every 6 hours -Antibiotics: Azithromycin -Robitussin-AC every 6 hours as needed for cough -Continue Pulmicort and formoterol -Repeat chest x-ray consistent with COPD. Hypomagnesemia, resolved We will continue to monitor closely with repeat a.m. labs and replace abnormal electrolyte values as needed. Nicotine dependence -Patient to continue to receive education and encouragement on the importance of smoking cessation and the risks of continued use up to and including . -Nicotine patch Paroxysmal atrial fibrillation on anticoagulation with Xarelto -Continue anticoagulation with Xarelto Hypertension Monitor vital signs and continue daily medication regimen with metoprolol. Hyperlipidemia Continue daily medication regimen with atorvastatin. Heart healthy and carb consistent diet. Insulin-dependent diabetes mellitus type 2 with hyperglycemia Patient placed on glycemic protocol with NovoLog sliding scale. Patient will probably prevent hyperglycemia with blood glucose 411. Scheduled NovoLog increased to 7 units before meals at bedtime and Levemir increased to 25 units daily. Persistent hyperglycemia likely secondary to steroid use. Restless leg syndrome -Continue daily medication regimen with Requip. CODE STATUS: Full code DVT prophylaxis: Xarelto Discussed with: Patient and RN Anticipated discharge date: Clinical course to determine Anticipated discharge place: Home A total of 45 minutes was spent on the care of this complex patient more than 50% of the time was spent in counseling and care coordination. Objective - Vital Signs Vital signs: Vital Signs Temp 96.4 F L 11/12/20 08:44 Pulse 88 11/12/20 09:34 Resp 16 11/12/20 08:44 BP 110/67 11/12/20 08:44 Pulse Ox 96 11/12/20 09:10 Intake & Output 11/11/20 11/12/20 11/12/20 18:59 06:59 18:59 Other: Voiding Method Toilet Toilet # Voids 6 3 # Bowel Movements 0 - Labs CBC & Chem 7: 11/12/20 07:10 11/12/20 07:10 Labs: Abnormal Lab Results - Last 24 Hours (Table) 11/11/20 11/11/20 11/11/20 Range/Units 11:43 16:48 20:44 POC Glucose (mg/dL) 321 H 335 H 336 H (75-99) mg/dL 11/12/20 11/12/20 Range/Units 07:09 10:03 POC Glucose (mg/dL) 266 H 411 H (75-99) mg/dL <Ivonne Esparza - Last Filed: 11/12/20 19:38> Subjective Patient seen and examined independently. Patient was also seen by Og Schaffer NP and case was discussed. I am in agreement with subjective, physical exam, assessment and plan as written above and amended below. She states she still feels "terrible" she states she is still very winded and having significant shortness of breath. General: non toxic, no distress, appears at stated age Derm: warm, dry Head: atraumatic, normocephalic, symmetric Eyes: EOMI, no lid lag, anicteric sclera Mouth: no lip lesion, mucus membranes moist Cardiovascular: S1S2 reg, no murmur, positive posterior tibial pulse bilateral, Lungs: Diffuse wheezing bilaterally with decreased breath sounds , no accessory muscle use Neuro: CN II-XI grossly intact, no focal neuro deficits Psych: Alert, oriented, appropriate affect Objective - Vital Signs Vital signs: Vital Signs Temp 97.6 F 11/12/20 13:30 Pulse 84 11/12/20 16:56 Resp 24 11/12/20 13:30 BP 110/67 11/12/20 08:44 Pulse Ox 95 11/12/20 13:30 Intake & Output 11/12/20 11/12/20 11/13/20 06:59 18:59 06:59 Other: Voiding Method Toilet Toilet # Voids 1 2 # Bowel Movements 0 - Labs CBC & Chem 7: 11/12/20 07:10 11/12/20 07:10 Labs: Abnormal Lab Results - Last 24 Hours (Table) 11/11/20 11/12/20 11/12/20 Range/Units 20:44 07:09 07:10 MCHC 31.6 L (32.0-37.0) g/dL BUN/Creatinine Ratio (12.00-20.00) Ratio Glucose (70-110) mg/dL POC Glucose (mg/dL) 336 H 266 H (75-99) mg/dL 11/12/20 11/12/20 11/12/20 Range/Units 07:10 10:03 11:21 MCHC (32.0-37.0) g/dL BUN/Creatinine Ratio 35.71 H (12.00-20.00) Ratio Glucose 328 H (70-110) mg/dL POC Glucose (mg/dL) 411 H 441 H (75-99) mg/dL 11/12/20 Range/Units 16:32 MCHC (32.0-37.0) g/dL BUN/Creatinine Ratio (12.00-20.00) Ratio Glucose (70-110) mg/dL POC Glucose (mg/dL) 280 H (75-99) mg/dL
[2020-11-12 16:33] LABS: Glucose,Whole Blood 280 mg/dL (75-99)
[2020-11-12] MEDS: NON FORMULARY DRUG (Mirabegron [Myrbetriq] 25 MG Tab.Er.24h) PO SCH (17:06)
[2020-11-12] MEDS: METOPROLOL SUCCINATE (ER) 25 MG TAB.ER.24H PO SCH (17:17)
--- NOTE | 2020-11-12 18:04 | P.PN ---
Subjective Progress Note Date: 11/12/20 11/12/2020, the patient is improving slowly. She is known to have COPD and along with that previous assess, cell carcinoma of the lung with a left upper lobe resection. She is doing better and she is less bronchospastic and wheezy. No chest pain. Repeat chest x-ray was done today and shows no acute a bnormalities. The patient remains on a combination of bronchodilators with DuoNeb nebulized treatments around the clock, Perforomist and Pulmicort neb last treatment twice a day, IV Solu Medrol. She is feeling better compared to yesterday. She is not fully recovered and the patient is to short of breath bronchospastic and wheezy. She is slow to progress. Blood work remains within normal with a white cell count of 9.8. He will was 15.6. Normal renal function. Blood sugars at 280. Objective - Vital Signs Vital signs: Vital Signs Temp 97.6 F 11/12/20 13:30 Pulse 84 11/12/20 16:56 Resp 24 11/12/20 13:30 BP 110/67 11/12/20 08:44 Pulse Ox 95 11/12/20 13:30 Intake & Output 11/11/20 11/12/20 11/12/20 18:59 06:59 18:59 Other: Voiding Method Toilet Toilet Toilet # Voids 6 1 2 # Bowel Movements 0 - Exam GENERAL EXAM: Alert, very pleasant, 70-year-old white female, audibly wheezy and coughing, mildly dyspneic at rest, stay on 3 L of oxygen pulse ox of 95% comfortable in no apparent distress. HEAD: Normocephalic/atraumatic. EYES: Normal reaction of pupils, equal size. Conjunctiva pink, sclera white. NOSE: Clear with pink turbinates. THROAT: No erythema or exudates. NECK: No masses, no JVD, no thyroid enlargement, no adenopathy. CHEST: No chest wall deformity. Symmetrical expansion. LUNGS: Equal air entry with diffuse wheezes and rhonchi CVS: Regular rate and rhythm, normal S1 and S2, no gallops, no murmurs, no rubs ABDOMEN: Soft, nontender. No hepatosplenomegaly, normal bowel sounds, no guarding or rigidity. EXTREMITIES: No clubbing, no edema, no cyanosis, 2+ pulses and upper and lower extremities. MUSCULOSKELETAL: Muscle strength and tone normal. SPINE: No scoliosis or deformity SKIN: No rashes CENTRAL NERVOUS SYSTEM: Alert and oriented -3. No focal deficits, tone is normal in all 4 extremities. PSYCHIATRIC: Alert and oriented -3. Appropriate affect. Intact judgment and insight. - Labs CBC & Chem 7: 11/12/20 07:10 11/12/20 07:10 Labs: Abnormal Lab Results - Last 24 Hours (Table) 11/11/20 11/12/20 11/12/20 Range/Units 20:44 07:09 07:10 MCHC 31.6 L (32.0-37.0) g/dL BUN/Creatinine Ratio (12.00-20.00) Ratio Glucose (70-110) mg/dL POC Glucose (mg/dL) 336 H 266 H (75-99) mg/dL 11/12/20 11/12/20 11/12/20 Range/Units 07:10 10:03 11:21 MCHC (32.0-37.0) g/dL BUN/Creatinine Ratio 35.71 H (12.00-20.00) Ratio Glucose 328 H (70-110) mg/dL POC Glucose (mg/dL) 411 H 441 H (75-99) mg/dL 11/12/20 Range/Units 16:32 MCHC (32.0-37.0) g/dL BUN/Creatinine Ratio (12.00-20.00) Ratio Glucose (70-110) mg/dL POC Glucose (mg/dL) 280 H (75-99) mg/dL Assessment and Plan Plan: #1. Acute exacerbation of chronic obstructive pulmonary disease, no definite acute pulmonary process on the chest x-ray. COVID-19 PCR was negative. The patient is showing some mild improvement on today's evaluation. Repeat chest x- ray shows no acute abnormalities. #2. History of left lung squamous cell carcinoma, status post left upper lobectomy in 2018, most recent follow-up computed tomography scan of the chest, abdomen and pelvis from a weight of 2020 showing no new or enlarging suspici ous masses or adenopathy to suggest acute neoplastic recurrence #3. Chronic and ongoing history of smoking, currently down to half a pack a day #4. History of CAD with previous [place] and stent placement #5. Chronic atrial fibrillation on Xarelto #6. Hypertension #7. Hyperlipidemia #8. Insulin-dependent diabetes mellitus type 2 #9. Diverticulitis with previous history of bowel resection #10. Restless leg syndrome Plan: repeat chest x-ray is normal and shows no acute abnormalities Repeated blood work is within normal Continue high-dose IV steroids, will not change the dose Continue nebulized bronchodilators Continue antibiotics slow to progress. Some limited improvement since yesterday.
[2020-11-12 20:51] LABS: Glucose,Whole Blood 281 mg/dL (75-99)
[2020-11-12] MEDS: traZODone HCL 50 MG TAB PO SCH (21:56)
[2020-11-12] MEDS: ATORVASTATIN 40 MG TAB PO SCH (21:57)
[2020-11-12] MEDS: MELATONIN 3 MG TABLET PO SCH (21:57)
[2020-11-13] MEDS: methylPREDNISolone SOD SUCCI 125 MG/2 ML VIAL IV SCH ×5 (00:23→23:47)
[2020-11-13] MEDS: HYDROcodone/APAP 10-325MG 1 EACH TAB PO PRN ×3 (03:25→21:16)
[2020-11-13] MEDS: guaiFENesin-Coden 100-10MG/5ML 10 ML CUP PO PRN ×3 (03:29→17:03)
[2020-11-13 06:54] LABS: Glucose,Whole Blood 352 mg/dL (75-99)
[2020-11-13] MEDS: INSULIN ASPART (NovoLOG) 100 UNIT/ML VIAL SQ SCH ×7 (07:22→21:40)
[2020-11-13] MEDS: INSULIN DETEMIR (LEVEMIR) 100 UNIT/ML SYR SQ SCH (07:22)
[2020-11-13] MEDS: FENOFIBRATE 160 MG TAB PO SCH (07:24)
[2020-11-13] MEDS: AZITHROMYCIN 500 MG TAB PO SCH (07:24)
[2020-11-13] MEDS: PANTOPRAZOLE 40 MG TABLET PO SCH (07:24)
[2020-11-13] MEDS: lisinopriL 5 MG TAB PO SCH (07:24)
[2020-11-13] MEDS: NICOTINE 21MG/24HR PATCH TRANSDERM SCH (07:24)
[2020-11-13] MEDS: RIVAROXABAN 2.5 MG TABLET PO SCH ×2 (07:25→21:11)
[2020-11-13] MEDS: ALPRAZolam 0.25 MG TAB PO PRN ×2 (07:32→17:13)
[2020-11-13] MEDS: BUDESONIDE 1 MG/2 ML NEBU INHALATION SCH ×2 (09:30→19:45)
[2020-11-13] MEDS: IPRATROPIUM-ALBUTEROL 3 ML NEB INHALATION SCH ×4 (09:30→19:45)
[2020-11-13] MEDS: FORMOTEROL FUMARATE 20 MCG/2 ML NEBU INHALATION SCH ×2 (09:30→19:58)
--- NOTE | 2020-11-13 11:10 | P.PN ---
Subjective Progress Note Date: 11/13/20 When he 1 2020, she continues to have a congested cough. No significant sputum production. Unable to bring up much sputum. Remains on the same treatment of bronchodilators and steroids and antibiotics. Lites otherwise for now. I think the patient is headed hours a bronchoscopy for bronchial lavage and therapeutic it was suctioning. I'm planning to do this on Sunday and I told her this. Unless the patient shows significant improvement, she will need a bronchoscopy probably by Sunday. She is struggling with her COPD and she is showing only slow improvement. Cough is still there and the patient is taking guaifenesin with codeine for cough suppression. Objective - Vital Signs Vital signs: Vital Signs Temp 97.5 F L 11/13/20 07:20 Pulse 96 11/13/20 09:52 Resp 20 11/13/20 07:20 BP 110/65 11/13/20 07:20 Pulse Ox 93 L 11/13/20 09:30 Intake & Output 11/12/20 11/13/20 11/13/20 18:59 06:59 18:59 Other: Voiding Method Toilet Toilet # Voids 2 2 - Exam GENERAL EXAM: Alert, very pleasant, 70-year-old white female, audibly wheezy and coughing, mildly dyspneic at rest, stay on 3 L of oxygen pulse ox of 95% comfortable in no apparent distress. HEAD: Normocephalic/atraumatic. EYES: Normal reaction of pupils, equal size. Conjunctiva pink, sclera white. NOSE: Clear with pink turbinates. THROAT: No erythema or exudates. NECK: No masses, no JVD, no thyroid enlargement, no adenopathy. CHEST: No chest wall deformity. Symmetrical expansion. LUNGS: Equal air entry with diffuse wheezes and rhonchi CVS: Regular rate and rhythm, normal S1 and S2, no gallops, no murmurs, no rubs ABDOMEN: Soft, nontender. No hepatosplenomegaly, normal bowel sounds, no guarding or rigidity. EXTREMITIES: No clubbing, no edema, no cyanosis, 2+ pulses and upper and lower extremities. MUSCULOSKELETAL: Muscle strength and tone normal. SPINE: No scoliosis or deformity SKIN: No rashes CENTRAL NERVOUS SYSTEM: Alert and oriented -3. No focal deficits, tone is normal in all 4 extremities. PSYCHIATRIC: Alert and oriented -3. Appropriate affect. Intact judgment and insight. - Labs CBC & Chem 7: 11/12/20 07:10 11/12/20 07:10 Labs: Abnormal Lab Results - Last 24 Hours (Table) 11/12/20 11/12/20 11/12/20 Range/Units 07:10 07:10 11:21 MCHC 31.6 L (32.0-37.0) g/dL BUN/Creatinine Ratio 35.71 H (12.00-20.00) Ratio Glucose 328 H (70-110) mg/dL POC Glucose (mg/dL) 441 H (75-99) mg/dL 11/12/20 11/12/20 11/13/20 Range/Units 16:32 20:49 06:52 MCHC (32.0-37.0) g/dL BUN/Creatinine Ratio (12.00-20.00) Ratio Glucose (70-110) mg/dL POC Glucose (mg/dL) 280 H 281 H 352 H (75-99) mg/dL Assessment and Plan Plan: #1. Acute exacerbation of chronic obstructive pulmonary disease, no definite acute pulmonary process on the chest x-ray. COVID-19 PCR was negative. The patient is showing some mild improvement on today's evaluation. Repeat chest x- ray shows no acute abnormalities. #2. History of left lung squamous cell carcinoma, status post left upper lobe ctomy in 2018, most recent follow-up computed tomography scan of the chest, abdomen and pelvis from a weight of 2020 showing no new or enlarging suspicious masses or adenopathy to suggest acute neoplastic recurrence #3. Chronic and ongoing history of smoking, currently down to half a pack a day #4. History of CAD with previous ID and stent placement #5. Chronic atrial fibrillation on Xarelto #6. Hypertension #7. Hyperlipidemia #8. Insulin-dependent diabetes mellitus type 2 #9. Diverticulitis with previous history of bowel resection #10. Restless leg syndrome Plan: The patient is showing slight improvement. Her progress is slow. She is having a congested cough. She is taking guaifenesin with codeine for cough suppression. She is on bronchodilators. She is on steroids. Chest x-ray is free of any acute pulmonary infiltrates. May consider bronchoscopy by Sunday if no improved.
[2020-11-13 11:29] LABS: Glucose,Whole Blood 449 mg/dL (75-99)
--- NOTE | 2020-11-13 14:48 | P.PN ---
<Og Schaffer - Last Filed: 11/13/20 14:41> Subjective Progress Note Date: 11/13/20 Hospital Course: Patient is a 70-year-old female with a past medical history of CAD with previous [place] and stent placement, atrial fibrillation on anticoagulation with Xarelto, hypertension, hyperlipidemia, insulin-dependent diabetes mellitus type 2, diverticulitis with previous bowel resections, restless leg syndrome, lung cancer resulting in left upper lobe lobectomy, and COPD not on home oxygen dependent but with continued nicotine dependence. Patient presented to the emergency department with a chief complaint of increasing shortness of breath, cough, and congestion over the past few days. She was seen and fully evaluated in the emergency department. A chest x-ray revealed hyperinflation of right lung consistent with COPD. EKG showing sinus tachycardia at 103 bpm with no noted T-wave or ST abnormalities showing no signs of acute ischemia. Vital signs reviewed and stable. Patient reportedly 88% room air requiring oxygen supplementation. Currently patient on 2 L O2 via nasal cannula with SpO2 94- 95%. Patient being admitted for COPD exacerbation. Covid 19 PCR was negative, troponin negative at less than 0.012, and proBNP 1020. Patient was found to have significant hypomagnesemia with magnesium of 1.5, replaced. Patient admitted under our services with consultation to pulmonology. Patient denies history of Covid 19 virus infection and denies having Covid vaccinations. Physical exam: 11/13/20: Patient seen and fully evaluated at the bedside. She appears to be doing slightly better this morning. Respirations even, regular, and unlabored, she does continue to have moderate expiratory wheezing in all nieves along with coarse nonproductive cough.. Patient was on 2 L O2 with SpO2 96-98%. Patient removed from oxygen this morning during initial assessment with SpO2 maintaining at 93% and upon reassessment this afternoon and patient remains on room air and maintaining SpO2 greater than 92%. Patient to continue duo nebs scheduled and as needed for shortness of breath and/or wheezing, Solu-Medrol, azithromycin, Pulmicort, formoterol, as well as Robitussin-AC as needed for cough. Patient encouraged to use incentive spirometry and increase ambulation and get up to chairs with meals. Patient reports feeling weak and states she can walk to the bathroom just fine, and encouraged patient to increase ambulation. Patient denies having any chest pain, palpitations, headache, lightheadedness, or dizziness. Vital signs reviewed and stable. General: Nontoxic, no distress and appears stated age. Derm: Skin warm and dry, normal coloration for ethnicity. Head: Atraumatic, normocephalic and symmetric. Eyes: EOMs intact, no lid lag, and anicteric sclera Mouth: no lip lesions, mucus membranes moist Cardiovascular: regular rate and rhythm with normal S1S2, no murmur, positive posterior tibial pulses bilaterally, and cap refill < 2 seconds. Lungs: Respirations even, regular, and unlabored this morning with no noted accessory muscle usage. Lungs remain significantly wheezy throughout all nieves. No rhonchi, rales, or crackles noted. coarse cough present. Currently on 2 L O2 with SpO2 95%. Abdominal: soft, nontender to palpation, no guarding, no appreciable organomegaly Ext: ROM intact. No gross muscle atrophy, no edema, no contractures Neuro: Speech clear, face symmetrical and CN II-XII grossly intact with no noted focal neuro deficits Psych: Alert and oriented to person, place, time, and situation. Appropriate and pleasant affect. Assessment and Plan of Care: Acute COPD exacerbation -Pulmonology following, reporting they may consider bronchoscopy and bronchial lavage on Sunday if patient is not showing any further improvement. -Oxygenation to be administered and titrated as needed to maintain SPO2 equal to or greater than 92%, currently requiring 2L O2, continue to wean as patient tolerates -Telemetry monitoring. -Duonebs scheduled and as needed for SOB and/or wheezing -Incentive Spirometry -Steroids: Solu-Medrol 60 mg IVP every 6 hours -Antibiotics: Azithromycin -Robitussin-AC every 6 hours as needed for cough -Continue Pulmicort and formoterol -Repeat chest x-ray consistent with COPD. Hypomagnesemia, resolved We will continue to monitor closely with repeat a.m. labs and replace abnormal electrolyte values as needed. Nicotine dependence -Patient to continue to receive education and encouragement on the importance of smoking cessation and the risks of continued use up to and including . -Nicotine patch Paroxysmal atrial fibrillation on anticoagulation with Xarelto -Continue anticoagulation with Xarelto Hypertension Monitor vital signs and continue daily medication regimen with metoprolol. Hyperlipidemia Continue daily medication regimen with atorvastatin. Heart healthy and carb consistent diet. Insulin-dependent diabetes mellitus type 2 with hyperglycemia Patient placed on glycemic protocol with NovoLog sliding scale. Patient will probably prevent hyperglycemia with blood glucose 411. Scheduled NovoLog increased to 7 units before meals at bedtime and Levemir increased to 25 units daily. Persistent hyperglycemia likely secondary to steroid use. Restless leg syndrome -Continue daily medication regimen with Requip. CODE STATUS: Full code DVT prophylaxis: Xarelto Discussed with: Patient and RN Anticipated discharge date: Clinical course to determine Anticipated discharge place: Home A total of 45 minutes was spent on the care of this complex patient more than 50% of the time was spent in counseling and care coordination. Objective - Vital Signs Vital signs: Vital Signs Temp 97.5 F L 11/13/20 07:20 Pulse 83 11/13/20 07:20 Resp 20 11/13/20 07:20 BP 110/65 11/13/20 07:20 Pulse Ox 96 11/13/20 07:20 Intake & Output 11/12/20 11/13/20 11/13/20 18:59 06:59 18:59 Other: Voiding Method Toilet Toilet # Voids 2 2 - Labs CBC & Chem 7: 11/12/20 07:10 11/12/20 07:10 Labs: Abnormal Lab Results - Last 24 Hours (Table) 11/12/20 11/12/20 11/12/20 Range/Units 07:10 07:10 10:03 MCHC 31.6 L (32.0-37.0) g/dL BUN/Creatinine Ratio 35.71 H (12.00-20.00) Ratio Glucose 328 H (70-110) mg/dL POC Glucose (mg/dL) 411 H (75-99) mg/dL 11/12/20 11/12/20 11/12/20 Range/Units 11:21 16:32 20:49 MCHC (32.0-37.0) g/dL BUN/Creatinine Ratio (12.00-20.00) Ratio Glucose (70-110) mg/dL POC Glucose (mg/dL) 441 H 280 H 281 H (75-99) mg/dL 11/13/20 Range/Units 06:52 MCHC (32.0-37.0) g/dL BUN/Creatinine Ratio (12.00-20.00) Ratio Glucose (70-110) mg/dL POC Glucose (mg/dL) 352 H (75-99) mg/dL <IsaiasIvonne Radha - Last Filed: 11/13/20 19:33> Subjective Patient seen and examined independently. Patient was also seen by Og Schaffer NP and case was discussed. I am in agreement with subjective, physical exam, assessment and plan as written above and amended below. General: non toxic, no distress, appears at stated age Derm: warm, dry Head: atraumatic, normocephalic, symmetric Eyes: EOMI, no lid lag, anicteric sclera Mouth: no lip lesion, mucus membranes moist Lungs: Respirations equal and even bilaterally, nonlabored, speaking in full sentences Psych: Alert, oriented, appears anxious Objective - Vital Signs Vital signs: Vital Signs Temp 97.4 F L 11/13/20 14:00 Pulse 110 H 11/13/20 15:51 Resp 22 11/13/20 14:00 BP 107/66 11/13/20 14:00 Pulse Ox 91 L 11/13/20 14:00 Intake & Output 11/13/20 11/13/20 11/14/20 06:59 18:59 06:59 Intake Total 200 Balance 200 Intake: Oral 200 Other: Voiding Method Toilet Toilet # Voids 2 2 - Labs CBC & Chem 7: 11/12/20 07:10 11/12/20 07:10 Labs: Abnormal Lab Results - Last 24 Hours (Table) 11/12/20 11/13/20 11/13/20 Range/Units 20:49 06:52 11:27 POC Glucose (mg/dL) 281 H 352 H 449 H (75-99) mg/dL 11/13/20 Range/Units 16:57 POC Glucose (mg/dL) 318 H (75-99) mg/dL
[2020-11-13 16:59] LABS: Glucose,Whole Blood 318 mg/dL (75-99)
[2020-11-13] MEDS: METOPROLOL SUCCINATE (ER) 25 MG TAB.ER.24H PO SCH (17:07)
[2020-11-13] MEDS: NON FORMULARY DRUG (Mirabegron [Myrbetriq] 25 MG Tab.Er.24h) PO SCH (17:08)
[2020-11-13] MEDS ORDERED: INSULIN DETEMIR (LEVEMIR) 100 UNIT/ML SYR SQ SCH (21:00)
[2020-11-13] MEDS: traZODone HCL 50 MG TAB PO SCH (21:10)
[2020-11-13] MEDS: ATORVASTATIN 40 MG TAB PO SCH (21:10)
[2020-11-13] MEDS: MELATONIN 3 MG TABLET PO SCH (21:10)
[2020-11-13] MEDS: ZOLPIDEM 5 MG TAB PO PRN (21:10)
[2020-11-13 21:21] LABS: Glucose,Whole Blood 323 mg/dL (75-99)
[2020-11-14] MEDS: methylPREDNISolone SOD SUCCI 125 MG/2 ML VIAL IV SCH ×3 (05:05→17:05)
[2020-11-14 06:54] LABS: Glucose,Whole Blood 216 mg/dL (75-99)
[2020-11-14] MEDS: HYDROcodone/APAP 10-325MG 1 EACH TAB PO PRN ×3 (07:20→22:23)
[2020-11-14] MEDS: lisinopriL 5 MG TAB PO SCH (07:21)
[2020-11-14] MEDS: FENOFIBRATE 160 MG TAB PO SCH (07:21)
[2020-11-14] MEDS: PANTOPRAZOLE 40 MG TABLET PO SCH (07:21)
[2020-11-14] MEDS: guaiFENesin-Coden 100-10MG/5ML 10 ML CUP PO PRN ×2 (07:21→16:59)
[2020-11-14] MEDS: NICOTINE 21MG/24HR PATCH TRANSDERM SCH (07:22)
[2020-11-14] MEDS: INSULIN DETEMIR (LEVEMIR) 100 UNIT/ML SYR SQ SCH ×2 (07:24→22:21)
[2020-11-14] MEDS: INSULIN ASPART (NovoLOG) 100 UNIT/ML VIAL SQ SCH ×7 (07:26→22:22)
[2020-11-14] MEDS: RIVAROXABAN 2.5 MG TABLET PO SCH (07:28)
[2020-11-14] MEDS: AZITHROMYCIN 500 MG TAB PO SCH (07:28)
[2020-11-14] MEDS: IPRATROPIUM-ALBUTEROL 3 ML NEB INHALATION SCH ×4 (07:38→20:07)
[2020-11-14] MEDS: BUDESONIDE 1 MG/2 ML NEBU INHALATION SCH ×2 (07:38→20:07)
[2020-11-14] MEDS: FORMOTEROL FUMARATE 20 MCG/2 ML NEBU INHALATION SCH ×2 (07:38→20:28)
[2020-11-14 11:50] LABS: Glucose,Whole Blood 268 mg/dL (75-99)
--- NOTE | 2020-11-14 11:58 | P.PN ---
Subjective Progress Note Date: 11/14/20 11/14/2020, the patient is feeling better and the patient is improved approximately 50% terms of her overall symptoms. She still has some limited congested cough. We were planning to do a bronchoscopy on Sunday. At this point in time, we are going to reevaluate her first thing in the morning and decide if bronchoscopy is needed. Note that she is improving with the current regimen. Her improvement was quite slow and the patient had a very slow progress. No fever. No chills. No chest pain. No other new complaints otherwise for now. She remains on bronchodilators and steroids and antibiotics. Objective - Vital Signs Vital signs: Vital Signs Temp 98.0 F 11/14/20 08:00 Pulse 84 11/14/20 11:25 Resp 16 11/14/20 08:30 BP 107/68 11/14/20 08:00 Pulse Ox 93 L 11/14/20 08:00 Intake & Output 11/13/20 11/14/20 11/14/20 18:59 06:59 18:59 Intake Total 200 400 Balance 200 400 Intake: Oral 200 400 Other: Voiding Method Toilet Toilet # Voids 2 2 2 - Exam GENERAL EXAM: Alert, very pleasant, 70-year-old white female, audibly wheezy and coughing, mildly dyspneic at rest, stay on 3 L of oxygen pulse ox of 95% co mfortable in no apparent distress. HEAD: Normocephalic/atraumatic. EYES: Normal reaction of pupils, equal size. Conjunctiva pink, sclera white. NOSE: Clear with pink turbinates. THROAT: No erythema or exudates. NECK: No masses, no JVD, no thyroid enlargement, no adenopathy. CHEST: No chest wall deformity. Symmetrical expansion. LUNGS: Equal air entry with diffuse wheezes and rhonchi CVS: Regular rate and rhythm, normal S1 and S2, no gallops, no murmurs, no rubs ABDOMEN: Soft, nontender. No hepatosplenomegaly, normal bowel sounds, no guarding or rigidity. EXTREMITIES: No clubbing, no edema, no cyanosis, 2+ pulses and upper and lower extremities. MUSCULOSKELETAL: Muscle strength and tone normal. SPINE: No scoliosis or deformity SKIN: No rashes CENTRAL NERVOUS SYSTEM: Alert and oriented -3. No focal deficits, tone is normal in all 4 extremities. PSYCHIATRIC: Alert and oriented -3. Appropriate affect. Intact judgment and insight. - Labs CBC & Chem 7: 11/12/20 07:10 11/12/20 07:10 Labs: Abnormal Lab Results - Last 24 Hours (Table) 11/13/20 11/13/20 11/14/20 Range/Units 16:57 21:20 06:52 POC Glucose (mg/dL) 318 H 323 H 216 H (75-99) mg/dL 11/14/20 Range/Units 11:49 POC Glucose (mg/dL) 268 H (75-99) mg/dL Assessment and Plan Plan: #1. Acute exacerbation of chronic obstructive pulmonary disease, no definite acute pulmonary process on the chest x-ray. COVID-19 PCR was negative. The patient is showing some mild improvement on today's evaluation. Repeat chest x- ray shows no acute abnormalities. Clinically improving #2. History of left lung squamous cell carcinoma, status post left upper lobectomy in 2018, most recent follow-up computed tomography scan of the chest, abdomen and pelvis from a 10/26 2020 showing no new or enlarging suspicious masses or adenopathy to suggest acute neoplastic recurrence #3. Chronic and ongoing history of smoking, currently down to half a pack a day #4. History of CAD with previous [place] and stent placement #5. Chronic atrial fibrillation on Xarelto #6. Hypertension #7. Hyperlipidemia #8. Insulin-dependent diabetes mellitus type 2 #9. Diverticulitis with previous history of bowel resection #10. Restless leg syndrome Plan: Clinically improving She is tentatively scheduled for a bronchoscopy and therapeutic it was suctioning and lavage tomorrow. On last markedly improved, we're going to proceed with the procedure in a.m.
[2020-11-14] MEDS: ALPRAZolam 0.25 MG TAB PO PRN ×2 (12:08→22:23)
--- NOTE | 2020-11-14 13:05 | P.PN ---
<Og Schaffer - Last Filed: 11/14/20 13:42> Subjective Progress Note Date: 11/14/20 Hospital Course: Patient is a 70-year-old female with a past medical history of CAD with previous [place] and stent placement, atrial fibrillation on anticoagulation with Xarelto, hypertension, hyperlipidemia, insulin-dependent diabetes mellitus type 2, diverticulitis with previous bowel resections, restless leg syndrome, lung cancer resulting in left upper lobe lobectomy, and COPD not on home oxygen dependent but with continued nicotine dependence. Patient presented to the emergency department with a chief complaint of increasing shortness of breath, cough, and congestion over the past few days. She was seen and fully evaluated in the emergency department. A chest x-ray revealed hyperinflation of right lung consistent with COPD. EKG showing sinus tachycardia at 103 bpm with no noted T-wave or ST abnormalities showing no signs of acute ischemia. Vital signs reviewed and stable. Patient reportedly 88% room air requiring oxygen supplementation. Currently patient on 2 L O2 via nasal cannula with SpO2 94- 95%. Patient being admitted for COPD exacerbation. Covid 19 PCR was negative, troponin negative at less than 0.012, and proBNP 1020. Patient was found to have significant hypomagnesemia with magnesium of 1.5, replaced. Patient admitted under our services with consultation to pulmonology. Patient denies history of Covid 19 virus infection and denies having Covid vaccinations. Physical exam: 11/14/20: Patient seen and fully evaluated at the bedside this morning. Her condition continues to improve. She remains on room air for greater than 24 hours now and maintaining SpO2 greater than 91%. Patient underwent home oxygen evaluation and was 91% SpO2 on room air at rest and 89% with ambulation around unit. Respirations even, regular, and unlabored, she does continue to diffuse b ilateral expiratory wheezes with nonproductive cough, but definite improvement in lung sounds. Patient to continue duo nebs scheduled and as needed for shortness of breath and/or wheezing, Solu-Medrol, azithromycin, Pulmicort, formoterol, as well as Robitussin-AC as needed for cough. Patient encouraged to continue to use incentive spirometry, increase ambulation and get up to chairs with meals. Patient reports that she continues to feel weak and does not want to get up in chair, again patient educated on the importance of getting up and out of bed and encouraged to increase ambulation. Patient denies having any chest pain, palpitations, headache, lightheadedness, or dizziness. Vital signs reviewed and stable. General: Nontoxic, no distress and appears stated age. Derm: Skin warm and dry, normal coloration for ethnicity. Head: Atraumatic, normocephalic and symmetric. Eyes: EOMs intact, no lid lag, and anicteric sclera Mouth: no lip lesions, mucus membranes moist Cardiovascular: regular rate and rhythm with normal S1S2, no murmur, positive posterior tibial pulses bilaterally, and cap refill < 2 seconds. Lungs: Respirations even, regular, and unlabored on room air this morning with no noted accessory muscle usage. Lungs with diffuse soft expiratory wheezes bilaterally, improved from previous examinations. No rhonchi, rales, or crackles noted. coarse cough present. Abdominal: soft, nontender to palpation, no guarding, no appreciable organomegaly Ext: ROM intact. No gross muscle atrophy, no edema, no contractures Neuro: Speech clear, face symmetrical and CN II-XII grossly intact with no noted focal neuro deficits Psych: Alert and oriented to person, place, time, and situation. Appropriate and pleasant affect. Assessment and Plan of Care: Acute COPD exacerbation -Pulmonology following, reporting they will reevaluate patient tomorrow morning for consideration of possible bronchoscopy. -Oxygenation to be administered and titrated as needed to maintain SPO2 equal to or greater than 92%, currently on room air. -Telemetry monitoring. -Duonebs scheduled and as needed for SOB and/or wheezing -Incentive Spirometry -Steroids: Solu-Medrol 60 mg IVP every 6 hours -Antibiotics: Azithromycin -Robitussin-AC every 6 hours as needed for cough -Continue Pulmicort and formoterol -Repeat chest x-ray consistent with COPD. Hypomagnesemia Replaced. We will continue to monitor closely with repeat a.m. labs and replace abnormal electrolyte values as needed. Nicotine dependence -Patient to continue to receive education and encouragement on the importance of smoking cessation and the risks of continued use up to and including . -Nicotine patch Paroxysmal atrial fibrillation on anticoagulation with Xarelto -Continue anticoagulation with Xarelto Hypertension Monitor vital signs and continue daily medication regimen with metoprolol. Hyperlipidemia Continue daily medication regimen with atorvastatin. Heart healthy and carb consistent diet. Insulin-dependent diabetes mellitus type 2 with hyperglycemia Patient placed on glycemic protocol with NovoLog sliding scale. Patient will probably prevent hyperglycemia with blood glucose 411. Scheduled NovoLog increased to 7 units before meals at bedtime and Levemir increased to 25 units daily. Persistent hyperglycemia likely secondary to steroid use. Restless leg syndrome -Continue daily medication regimen with Requip. CODE STATUS: Full code DVT prophylaxis: Xarelto Discussed with: Patient and RN Anticipated discharge date: Clinical course to determine Anticipated discharge place: Home A total of 45 minutes was spent on the care of this complex patient more than 50% of the time was spent in counseling and care coordination. Objective - Vital Signs Vital signs: Vital Signs Temp 98.0 F 11/14/20 08:00 Pulse 84 11/14/20 11:25 Resp 16 11/14/20 08:30 BP 107/68 11/14/20 08:00 Pulse Ox 93 L 11/14/20 08:00 Intake & Output 11/13/20 11/14/20 11/14/20 18:59 06:59 18:59 Intake Total 200 400 Balance 200 400 Intake: Oral 200 400 Other: Voiding Method Toilet Toilet # Voids 2 2 2 - Labs CBC & Chem 7: 11/12/20 07:10 11/12/20 07:10 Labs: Abnormal Lab Results - Last 24 Hours (Table) 11/13/20 11/13/20 11/14/20 Range/Units 16:57 21:20 06:52 POC Glucose (mg/dL) 318 H 323 H 216 H (75-99) mg/dL 11/14/20 Range/Units 11:49 POC Glucose (mg/dL) 268 H (75-99) mg/dL <Ivonne Esparza - Last Filed: 11/14/20 18:43> Subjective Patient seen and examined independently. Patient was also seen by Og Schaffer NP and case was discussed. I am in agreement with subjective, physical exam, assessment and plan as written above and amended below. Still feels terrible and like she can't breathe. General: non toxic, no distress, appears at stated age Derm: warm, dry Head: atraumatic, normocephalic, symmetric Eyes: EOMI, no lid lag, anicteric sclera Mouth: no lip lesion, mucus membranes moist Cardiovascular: S1S2 reg, no murmur, positive posterior tibial pulse bilateral, Lungs: Diffuse wheezing bilateral bilateral, no accessory muscle use Psych: Alert, oriented, appropriate affect Objective - Vital Signs Vital signs: Vital Signs Temp 98.2 F 11/14/20 14:00 Pulse 85 11/14/20 16:58 Resp 16 11/14/20 14:00 BP 110/85 11/14/20 14:00 Pulse Ox 94 L 11/14/20 14:00 Intake & Output 11/13/20 11/14/20 11/14/20 18:59 06:59 18:59 Intake Total 932 146 8347 Balance 194 008 2493 Intake: Oral 445 417 4443 Other: Voiding Method Toilet Toilet # Voids 2 2 3 # Bowel Movements 1 - Labs CBC & Chem 7: 11/14/20 14:11 11/14/20 14:11 Labs: Abnormal Lab Results - Last 24 Hours (Table) 11/13/20 11/14/20 11/14/20 Range/Units 21:20 06:52 11:49 WBC (3.8-10.6) k/uL Sodium (137-145) mmol/L BUN (7-17) mg/dL Glucose (74-99) mg/dL POC Glucose (mg/dL) 323 H 216 H 268 H (75-99) mg/dL 11/14/20 11/14/20 11/14/20 Range/Units 14:11 14:11 16:27 WBC 11.2 H (3.8-10.6) k/uL Sodium 131 L (137-145) mmol/L BUN 33 H (7-17) mg/dL Glucose 388 H (74-99) mg/dL POC Glucose (mg/dL) 282 H (75-99) mg/dL
[2020-11-14 14:43] LABS: African American GFR (CKD) >90 (>60 ml/min/1.73 sqM); Anion Gap 7 mmol/L; Blood Urea Nitrogen 33 mg/dL (7-17); Calcium 9.4 mg/dL (8.4-10.2); Carbon Dioxide 26 mmol/L (22-30); Chloride 98 mmol/L (98-107); Glucose 388 mg/dL (74-99); Magnesium 2.2 mg/dL (1.6-2.3); Non-African American GFR(CKD) 90 (>60 ml/min/1.73 sqM); Potassium 5.1 mmol/L (3.5-5.1); Sodium 131 mmol/L (137-145)
[2020-11-14 14:45] LABS: HCT 45.8 % (34.0-46.0); HGB 14.7 gm/dL (11.4-16.0); MCH 28.6 pg (25.0-35.0); MCV 89.3 fL (80.0-100.0); Mean Platelet Volume 7.8; Platelet Count 277 k/uL (150-450); RBC 5.13 m/uL (3.80-5.40); RDW 13.4 % (11.5-15.5); WBC 11.2 k/uL (3.8-10.6)
[2020-11-14 16:29] LABS: Glucose,Whole Blood 282 mg/dL (75-99)
[2020-11-14] MEDS: METOPROLOL SUCCINATE (ER) 25 MG TAB.ER.24H PO SCH (16:59)
[2020-11-14] MEDS: NON FORMULARY DRUG (Mirabegron [Myrbetriq] 25 MG Tab.Er.24h) PO SCH (17:04)
[2020-11-14 20:55] LABS: Glucose,Whole Blood 268 mg/dL (75-99)
[2020-11-14] MEDS: ATORVASTATIN 40 MG TAB PO SCH (22:24)
[2020-11-14] MEDS: MELATONIN 3 MG TABLET PO SCH (22:24)
[2020-11-14] MEDS: traZODone HCL 50 MG TAB PO SCH (22:25)
[2020-11-15] MEDS: methylPREDNISolone SOD SUCCI 125 MG/2 ML VIAL IV SCH ×4 (00:11→17:22)
[2020-11-15] MEDS: RIVAROXABAN 2.5 MG TABLET PO SCH ×3 (00:11→21:09)
[2020-11-15 07:07] LABS: Glucose,Whole Blood 200 mg/dL (75-99)
[2020-11-15] MEDS: IPRATROPIUM-ALBUTEROL 3 ML NEB INHALATION SCH ×4 (07:44→19:51)
[2020-11-15] MEDS: BUDESONIDE 1 MG/2 ML NEBU INHALATION SCH ×2 (07:44→19:51)
[2020-11-15] MEDS: FORMOTEROL FUMARATE 20 MCG/2 ML NEBU INHALATION SCH ×2 (07:44→19:51)
[2020-11-15] MEDS: PANTOPRAZOLE 40 MG TABLET PO SCH (07:57)
[2020-11-15] MEDS: FENOFIBRATE 160 MG TAB PO SCH (07:57)
[2020-11-15] MEDS: AZITHROMYCIN 500 MG TAB PO SCH (07:57)
[2020-11-15] MEDS: NICOTINE 21MG/24HR PATCH TRANSDERM SCH (07:57)
[2020-11-15] MEDS: lisinopriL 5 MG TAB PO SCH (07:57)
--- NOTE | 2020-11-15 11:07 | P.PN ---
<Og Schaffer - Last Filed: 11/15/20 11:02> Subjective Progress Note Date: 11/15/20 Hospital Course: Patient is a 70-year-old female with a past medical history of CAD with previous SC and stent placement, atrial fibrillation on anticoagulation with Xarelto, hypertension, hyperlipidemia, insulin-dependent diabetes mellitus type 2, diverticulitis with previous bowel resections, restless leg syndrome, lung cancer resulting in left upper lobe lobectomy, and COPD not on home oxygen dependent but with continued nicotine dependence. Patient presented to the emergency department with a chief complaint of increasing shortness of breath, cough, and congestion over the past few days. She was seen and fully evaluated in the emergency department. A chest x-ray revealed hyperinflation of right lung consistent with COPD. EKG showing sinus tachycardia at 103 bpm with no noted T-wave or ST abnormalities showing no signs of acute ischemia. Vital signs reviewed and stable. Patient reportedly 88% room air requiring oxygen supplementation. Currently patient on 2 L O2 via nasal cannula with SpO2 94- 95%. Patient being admitted for COPD exacerbation. Covid 19 PCR was negative, troponin negative at less than 0.012, and proBNP 1020. Patient was found to have significant hypomagnesemia with magnesium of 1.5, replaced. Patient admitted under our services with consultation to pulmonology. Patient denies history of Covid 19 virus infection and denies having Covid vaccinations. Physical exam: 11/15/20: Patient seen and fully evaluated at the bedside this morning. Her condition continues to improve. She remains on room air for greater than 48 hours now and maintaining SpO2 greater than 91% at all times. Respirations remain even, regular, and unlabored, she does continue to diffuse bilateral expiratory wheezes with nonproductive cough, but definite improvement in lung sounds. Patient is scheduled for bronchoscopy later today. Patient to continue with scheduled duo nebs, Solu-Medrol, azithromycin, Pulmicort, formoterol, as well as Robitussin-AC as needed for cough. Patient again encouraged to continue to use incentive spirometry, increase ambulation and get up to chairs with meals. Patient reports that she continues to feel weak and does not want to get up in chair, again patient educated on the importance of getting up and out of bed and encouraged to increase ambulation. Patient denies having any chest pain, palpitations, headache, lightheadedness, or dizziness. Vital signs reviewed and stable. General: Nontoxic, no distress and appears stated age. Derm: Skin warm and dry, normal coloration for ethnicity. Head: Atraumatic, normocephalic and symmetric. Eyes: EOMs intact, no lid lag, and anicteric sclera Mouth: no lip lesions, mucus membranes moist Cardiovascular: regular rate and rhythm with normal S1S2, no murmur, positive posterior tibial pulses bilaterally, and cap refill < 2 seconds. Lungs: Respirations even, regular, and unlabored on room air this morning with no noted accessory muscle usage. Lungs with diffuse soft expiratory wheezes bilaterally, improved from previous examinations. No rhonchi, rales, or crackl es noted. Coarse cough present. Abdominal: soft, nontender to palpation, no guarding, no appreciable organomegaly Ext: ROM intact. No gross muscle atrophy, no edema, no contractures Neuro: Speech clear, face symmetrical and CN II-XII grossly intact with no noted focal neuro deficits Psych: Alert and oriented to person, place, time, and situation. Appropriate and pleasant affect. Assessment and Plan of Care: Acute COPD exacerbation -Pulmonology following, patient going for bronchoscopy later today -Oxygenation to be administered and titrated as needed to maintain SPO2 equal to or greater than 92%, currently on room air. -Telemetry monitoring. -Duonebs scheduled and as needed for SOB and/or wheezing -Incentive Spirometry -Steroids: Solu-Medrol 60 mg IVP every 6 hours -Antibiotics: Azithromycin -Robitussin-AC every 6 hours as needed for cough -Continue Pulmicort and formoterol -Repeat chest x-ray consistent with COPD. Hypomagnesemia, resolved We will continue to monitor closely with repeat a.m. labs and replace abnormal electrolyte values as needed. Nicotine dependence -Patient to continue to receive education and encouragement on the importance of smoking cessation and the risks of continued use up to and including . -Nicotine patch Paroxysmal atrial fibrillation on anticoagulation with Xarelto -Continue anticoagulation with Xarelto Hypertension Monitor vital signs and continue daily medication regimen with metoprolol. Hyperlipidemia Continue daily medication regimen with atorvastatin. Heart healthy and carb consistent diet. Insulin-dependent diabetes mellitus type 2 with hyperglycemia Patient placed on glycemic protocol with NovoLog sliding scale. Patient will probably prevent hyperglycemia with blood glucose 411. Scheduled NovoLog increased to 8 units before meals at bedtime and Levemir increased to 25 units each morning and added on 15 units of Levemir nightly. Persistent hyperglycemia likely secondary to steroid use. Restless leg syndrome -Continue daily medication regimen with Requip. CODE STATUS: Full code DVT prophylaxis: Xarelto Discussed with: Patient and RN Anticipated discharge date: Clinical course to determine Anticipated discharge place: Home A total of 45 minutes was spent on the care of this complex patient more than 50% of the time was spent in counseling and care coordination. Objective - Vital Signs Vital signs: Vital Signs Temp 97.6 F 11/15/20 02:40 Pulse 80 11/15/20 07:59 Resp 15 11/15/20 02:40 BP 115/64 11/15/20 02:40 Pulse Ox 95 11/15/20 07:45 Intake & Output 11/14/20 11/15/20 11/15/20 18:59 06:59 18:59 Intake Total 1180 Balance 1180 Intake: Oral 1180 Other: Voiding Method Toilet Toilet # Voids 3 3 # Bowel Movements 1 - Labs CBC & Chem 7: 11/14/20 14:11 11/14/20 14:11 Labs: Abnormal Lab Results - Last 24 Hours (Table) 11/14/20 11/14/20 11/14/20 Range/Units 11:49 14:11 14:11 WBC 11.2 H (3.8-10.6) k/uL Sodium 131 L (137-145) mmol/L BUN 33 H (7-17) mg/dL Glucose 388 H (74-99) mg/dL POC Glucose (mg/dL) 268 H (75-99) mg/dL 11/14/20 11/14/20 11/15/20 Range/Units 16:27 20:54 07:06 WBC (3.8-10.6) k/uL Sodium (137-145) mmol/L BUN (7-17) mg/dL Glucose (74-99) mg/dL POC Glucose (mg/dL) 282 H 268 H 200 H (75-99) mg/dL <Rosas Son - Last Filed: 11/15/20 15:57> Objective - Vital Signs Vital signs: Vital Signs Temp 97.7 F 11/15/20 14:00 Pulse 91 11/15/20 14:00 Resp 16 11/15/20 14:00 BP 110/63 11/15/20 14:00 Pulse Ox 100 11/15/20 14:00 Intake & Output 11/14/20 11/15/20 11/15/20 18:59 06:59 18:59 Intake Total 1180 300 Balance 1180 300 Weight 54.431 kg Intake: IV 300 Oral 1180 Other: Voiding Method Toilet Toilet Toilet # Voids 3 3 # Bowel Movements 1 - Labs CBC & Chem 7: 11/14/20 14:11 11/14/20 14:11 Labs: Abnormal Lab Results - Last 24 Hours (Table) 11/14/20 11/14/20 11/15/20 Range/Units 16:27 20:54 06:00 POC Glucose (mg/dL) 282 H 268 H (75-99) mg/dL Hemoglobin A1c 10.3 H (4.0-6.0) % 11/15/20 11/15/20 Range/Units 07:06 11:51 POC Glucose (mg/dL) 200 H 239 H (75-99) mg/dL Hemoglobin A1c (4.0-6.0) % Assessment and Plan Assessment: Patient seen and evaluated by me independently. Patient was also seen by ERAN, the original author of this note. I am in agreement with the subjective, physical exam, and assessment and plan as documented with the addition/changes of my exam and assessment below. Gen: awake, alert HEENT: normocephalic, atraumatic, good hearing acuity, moist mucous membranes Resp: good air exchange, breathing comfortably with no accessory muscle use CVS: good distal perfusion x 4, GI: soft, NTTP, ND : no SPT, no CVAT, boudreaux catheter not present MSK: no pitting edema, no clubbing Neuro: non-focal, moving all extremities Psych: cooperative, euthymic mood Plan: Pending bronchoscopy Likely discharge tomorrow morning
[2020-11-15 11:52] LABS: Glucose,Whole Blood 239 mg/dL (75-99)
[2020-11-15] MEDS: INSULIN ASPART (NovoLOG) 100 UNIT/ML VIAL SQ SCH ×7 (11:59→21:10)
[2020-11-15] MEDS: INSULIN DETEMIR (LEVEMIR) 100 UNIT/ML SYR SQ SCH ×2 (12:00→21:10)
[2020-11-15 12:11] LABS: Hemoglobin A1C 10.3 % (4.0-6.0)
[2020-11-15 14:45] VITALS: BMI 21.9
[2020-11-15] MEDS ORDERED: KETAMINE 10 MG/ML 20 ML VIAL ONE (14:45)
[2020-11-15] MEDS ORDERED: PROPOFOL 10 MG/ML 20 ML VIAL IV ONE (14:45)
[2020-11-15] MEDS ORDERED: GLYCOPYRROLATE 0.2 MG/ML 2 ML VIAL ONE (14:45)
[2020-11-15] MEDS ORDERED: LIDOCAINE 1% INJ 10MG/ML (20 ML MDV) ONE (14:45)
[2020-11-15] MEDS ORDERED: MIDAZOLAM 2 MG/2 ML VIAL ONE (14:45)
[2020-11-15] MEDS ORDERED: LACTATED RINGERS 1,000 ML IV ONE ×2 (14:50)
[2020-11-15] MEDS ORDERED: LIDOCAINE 2% INJ 20 MG/ML INTRATRACH ONE (15:23)
[2020-11-15] MEDS: guaiFENesin-Coden 100-10MG/5ML 10 ML CUP PO PRN ×2 (15:46→21:10)
--- NOTE | 2020-11-15 16:26 | P.PN ---
Subjective Progress Note Date: 11/15/20 11/14/2020, the patient continues to improve. She is less short of breath. She wanted to proceed with a bronchoscopy for therapeutic it was suctioning and airway inspection. This was done this afternoon. The CAT scan report was given separately. In summary, the stump was identified in the left upper lobe. The left lower lobe bronchus was quite tortuous and there was obvious signs of malacia causing compromise to the patency of the airway. In any rate, I was able to pass the bronchoscope to the left lower lobe. No evidence of any post obstructive pneumonia. Right lung was essentially clear. The bronchial lavage of the right middle lobe was done. The patient is doing well. The patient is currently on DuoNeb nebulized treatments around the clock, Pulmicort and performance nebulized treatments twice a day, IV Solu Medrol 60 mg every 6 hours. The patient continues to be also on Levemir insulin for blood sugar control in addition to a sliding scale coverage. No chest pain. No fever or chills. Objective - Vital Signs Vital signs: Vital Signs Temp 97.7 F 11/15/20 14:00 Pulse 118 H 11/15/20 16:17 Resp 16 11/15/20 14:00 BP 110/63 11/15/20 14:00 Pulse Ox 100 11/15/20 14:00 Intake & Output 11/14/20 11/15/20 11/15/20 18:59 06:59 18:59 Intake Total 1180 300 Balance 1180 300 Weight 54.431 kg Intake: IV 300 Oral 1180 Other: Voiding Method Toilet Toilet Toilet # Voids 3 3 # Bowel Movements 1 - Exam GENERAL EXAM: Alert, very pleasant, 70-year-old white female, audibly wheezy and coughing, mildly dyspneic at rest, stay on 3 L of oxygen pulse ox of 95% comfortable in no apparent distress. HEAD: Normocephalic/atraumatic. EYES: Normal reaction of pupils, equal size. Conjunctiva pink, sclera white. NOSE: Clear with pink turbinates. THROAT: No erythema or exudates. NECK: No masses, no JVD, no thyroid enlargement, no adenopathy. CHEST: No chest wall deformity. Symmetrical expansion. LUNGS: Equal air entry with diffuse wheezes and rhonchi CVS: Regular rate and rhythm, normal S1 and S2, no gallops, no murmurs, no rubs ABDOMEN: Soft, nontender. No hepatosplenomegaly, normal bowel sounds, no guarding or rigidity. EXTREMITIES: No clubbing, no edema, no cyanosis, 2+ pulses and upper and lower extremities. MUSCULOSKELETAL: Muscle strength and tone normal. SPINE: No scoliosis or deformity SKIN: No rashes CENTRAL NERVOUS SYSTEM: Alert and oriented -3. No focal deficits, tone is normal in all 4 extremities. PSYCHIATRIC: Alert and oriented -3. Appropriate affect. Intact judgment and insight. - Labs CBC & Chem 7: 11/14/20 14:11 11/14/20 14:11 Labs: Abnormal Lab Results - Last 24 Hours (Table) 11/14/20 11/14/20 11/15/20 Range/Units 16:27 20:54 06:00 POC Glucose (mg/dL) 282 H 268 H (75-99) mg/dL Hemoglobin A1c 10.3 H (4.0-6.0) % 11/15/20 11/15/20 Range/Units 07:06 11:51 POC Glucose (mg/dL) 200 H 239 H (75-99) mg/dL Hemoglobin A1c (4.0-6.0) % Assessment and Plan Plan: #1. Acute exacerbation of chronic obstructive pulmonary disease, no definite acute pulmonary process on the chest x-ray. COVID-19 PCR was negative. The patient is showing some mild improvement on today's evaluation. Repeat chest x- ray shows no acute abnormalities. Clinically improving #2. History of left lung squamous cell carcinoma, status post left upper lobectomy in 2018, most recent follow-up computed tomography scan of the chest, abdomen and pelvis from a 10/26 2020 showing no new or enlarging suspicious masses or adenopathy to suggest acute neoplastic recurrence #3. Chronic and ongoing history of smoking, currently down to half a pack a day #4. History of CAD with previous [place] and stent placement #5. Chronic atrial fibrillation on Xarelto #6. Hypertension #7. Hyperlipidemia #8. Insulin-dependent diabetes mellitus type 2 #9. Diverticulitis with previous history of bowel resection #10. Restless leg syndrome Plan: Clinically improving Bronchoscopy was done. Right lung was essentially clear. Stump of the left upper lobe was quite healthy and within normal limits. Left lower lobe bronchus was tortuous and there was evidence of bronchomalacia causing dynamic obstruction of the left lower lobe bronchus and contributing to her chronic respiratory insufficiency. Nevertheless, I was able to pass the bronchoscope through the left lower lobe bronchus without any major difficulties and there was no evidence of any endobronchial tumor. Patient was reassured. Continue same treatment. Start tapering steroids as of tomorrow. Possible discharge within next 24-48 hours. We'll be awaiting the results of the bronchioloalveolar lavage.
--- NOTE | 2020-11-15 16:31 | P.PCN ---
Date of Procedure: 11/15/20 Preoperative Diagnosis: 1 COPD exacerbation 2 non-small cell lung cancer with a previous left upper lobe resection 3 shortness of breath with delayed recovery post COPD exacerbation Postoperative Diagnosis: 1 normal stump involving the left upper lobe bronchus post left upper lobectomy 2 tortuous left lower lobe bronchus with evidence of bronchomalacia causing airway compromise and dynamic obstruction. 3 bronchial lavage of the right middle lobe was done without any major difficulties. No endobronchial abnormalities involving the right lung. 4 normal upper airway anatomy and vocal cord structure and function. Procedure(s) Performed: 1 flexible bronchoscopy 2 bronchial alveolar lavage of the right middle lobe 3 airway inspection Anesthesia: MAC Surgeon: Leonard Milan Coating Line Worker #1: Jewels Foster Estimated Blood Loss (ml): 0 Pathology: other Condition: stable Disposition: floor Operative Findings: This is a flexible bronchoscope that was done under conscious sedation in the endoscopy suite. The sedation was done by [employer]ER REPAIRER. After achieving adequate sedation, the flexible bronchoscope was inserted through the right nostril was advanced into the upper airway. Doppler airway structures was inspected. Visualized airways included the posterior oropharynx, and larynx. Epiglottis, vallecula, arytenoids and the vocal cords were all within normal limits. Vocal cords was normal and structure and function. A total of 2 mL of 1% lidocaine was applied to the vocal cords and following that the bronchoscope was advanced into the upper trachea and a full airway inspection was done. Trachea was within normal limits. Emily was sharp in the midline. Examination of the right side including the right mainstem bronchus, right upper lobe bronchus, right middle lobe bronchus and right lower lobe bronchus along with the various 10 segments in the right lung and all of these were within normal limits and there were patent without any major abnormalities. Left mainstem bronchus was within normal limits. Immediately the stump to the left upper lobe lobectomy was identified and it was within normal limits. The left lower lobe bronchus orifice was not clearly seen. Because of volume loss, and anatomic repositioning of the left lower lobe in general, there has been some anatomic distortion where the left lower lobe bronchus was quite tortuous and there was evidence of bronchomalacia causing significant narrowing and dynamic obstruction of the airway. Nevertheless, I was able to push my bronchoscope through the orifice that was treated opening and I was able to visualize the various structures of the left lower lobe and the various segments. No evidence of any mucus and cessation. No evidence of any mucous retention. No endobronchial tumors. The bronchoscope was moved to the right middle lobe and bronchoalveolar lavage of the lateral segment was done. A total of 60 mL of saline was infused and 25-30 mL of turbid white bronchioloalveolar aspirate was recovered without any major difficulties. Therapeutic it was suctioning was done. Bronchoscope was removed and the patient was transferred recovery in stable condition. The bronchial alveolar lavage will be sent for microbial cultures and analysis.
[2020-11-15 17:09] LABS: Glucose,Whole Blood 315 mg/dL (75-99)
[2020-11-15] MEDS: METOPROLOL SUCCINATE (ER) 25 MG TAB.ER.24H PO SCH (17:23)
[2020-11-15] MEDS: HYDROcodone/APAP 10-325MG 1 EACH TAB PO PRN (17:23)
[2020-11-15] MEDS: NON FORMULARY DRUG (Mirabegron [Myrbetriq] 25 MG Tab.Er.24h) PO SCH (19:01)
[2020-11-15 20:49] LABS: Glucose,Whole Blood 355 mg/dL (75-99)
[2020-11-15] MEDS: traZODone HCL 50 MG TAB PO SCH (21:09)
[2020-11-15] MEDS: MELATONIN 3 MG TABLET PO SCH (21:09)
[2020-11-15] MEDS: ATORVASTATIN 40 MG TAB PO SCH (21:09)
[2020-11-15] MEDS: ALPRAZolam 0.25 MG TAB PO PRN (21:10)
[2020-11-16] MEDS: HYDROcodone/APAP 10-325MG 1 EACH TAB PO PRN ×3 (01:22→21:04)
[2020-11-16] MEDS: methylPREDNISolone SOD SUCCI 125 MG/2 ML VIAL IV SCH ×2 (01:24→06:07)
[2020-11-16] MEDS: ZOLPIDEM 5 MG TAB PO PRN ×2 (03:05→21:04)
[2020-11-16 07:02] LABS: Glucose,Whole Blood 184 mg/dL (75-99)
[2020-11-16] MEDS: PANTOPRAZOLE 40 MG TABLET PO SCH (08:17)
[2020-11-16] MEDS: RIVAROXABAN 2.5 MG TABLET PO SCH ×2 (08:17→20:47)
[2020-11-16] MEDS: FENOFIBRATE 160 MG TAB PO SCH (08:17)
[2020-11-16] MEDS: predniSONE 20 MG TAB PO SCH (08:17)
[2020-11-16] MEDS: lisinopriL 5 MG TAB PO SCH (08:17)
[2020-11-16] MEDS: NICOTINE 21MG/24HR PATCH TRANSDERM SCH (08:18)
[2020-11-16] MEDS: INSULIN ASPART (NovoLOG) 100 UNIT/ML VIAL SQ SCH ×7 (08:18→20:46)
[2020-11-16] MEDS: INSULIN DETEMIR (LEVEMIR) 100 UNIT/ML SYR SQ SCH ×2 (08:18→20:46)
[2020-11-16] MEDS: BUDESONIDE 1 MG/2 ML NEBU INHALATION SCH ×2 (08:48→19:05)
[2020-11-16] MEDS: FORMOTEROL FUMARATE 20 MCG/2 ML NEBU INHALATION SCH ×2 (08:48→20:09)
[2020-11-16] MEDS: IPRATROPIUM-ALBUTEROL 3 ML NEB INHALATION SCH ×4 (08:48→19:05)
[2020-11-16 11:34] LABS: Glucose,Whole Blood 340 mg/dL (75-99)
[2020-11-16 12:58] LABS: Glucose,Whole Blood 299 mg/dL (75-99)
--- NOTE | 2020-11-16 13:18 | P.PN ---
Subjective Progress Note Date: 11/16/20 Principal diagnosis: Dyspnea, cough, wheezing This is a 70-year-old white female patient past medical history of COPD not oxygen dependent at baseline, history of squamous cell lung cancer status post left upper lobectomy [place] [address] Mauri Jules, and patient follows with Dr. Webster from medical oncology. Other medical history includes CAD with previous NM and stent placement, chronic atrial fibrillation on the Route toe, hypertension, hyperlipidemia, insulin-dependent diabetes mellitus, diverticulitis with previous history of bowel resection, restless leg syndrome. Patient is on Symbicort and Combivent on a regular basis. She however continues to smoke, and currently is down to less than half a pack per day. On 11/08/2020 patient presented to the emergency department with complaints of cough, congestion, shortness of breath and wheezing. This apparently has been going on for the past 3-4 days prior to admission. She denies any fever, no hemoptysis. No naus ea vomiting or diarrhea. She was tested for COVID-19 and was found to be negative. She has not been vaccinated for COVID-19. She recently had follow-up computed tomography scan of the chest abdomen and pelvis and saw Dr. Webster in follow-up for her history of lung cancer. The computed tomography scan showed overall stable findings without new or enlarging suspicious masses or adenopathy to suggest active neoplastic recurrence. Chest x-ray the emergency department showed volume loss with left hemithorax, COPD, and stable left suprahilar nodularity compatible with tortuous vasculature, no evidence of acute pulmonary process. Patient was significantly dyspneic and bronchospastic, she was started on combination of azithromycin and Rocephin, IV steroids and nebulized bronchodilators. We were asked to see the patient in consultation On November 10, 2020 patient is seen in follow-up on medical surgical floor. She still quite bronchospastic and dyspneic. She is still coughing, she states she does not feel much improved. Although physical exam today reveals slightly improved lung sounds, still with diffuse wheezing. Patient remains on IV Solu- Medrol 60 every 6 hours, she is on azithromycin, Pulmicort, Perforomist. No hemoptysis, no chest discomfort, patient is able to ambulate to the bathroom without significant distress. On 11/16/2020 patient seen in follow-up on medical surgical floor. She is resting comfortably in bed, currently on room air, the pulse ox of 93-95%, she's had no fever or chills, vital signs have been stable, she states her breathing is improving, her IV steroids have been converted to oral prednisone, she status post bronchoscopy with BAL yesterday on 11/15/2020, BAL cultures are still pending for now. She has completed azithromycin and Rocephin. She has had no acute events overnight, no increased dyspnea, wheezing. She is improving. Today's labs are pending. Objective - Vital Signs Vital signs: Vital Signs Temp 96.5 F L 11/16/20 10:58 Pulse 74 11/16/20 10:58 Resp 17 11/16/20 10:58 BP 111/70 11/16/20 10:58 Pulse Ox 93 L 11/16/20 10:58 Intake & Output 11/15/20 11/16/20 11/16/20 18:59 06:59 18:59 Intake Total 300 Balance 300 Weight 54.431 kg Intake: IV 300 Other: Voiding Method Toilet Toilet Toilet # Voids 1 3 - Exam GENERAL EXAM: Alert, very pleasant, 70-year-old white female, currently on room air, with a pulse ox of 93-95% comfortable in no apparent distress. HEAD: Normocephalic/atraumatic. EYES: Normal reaction of pupils, equal size. Conjunctiva pink, sclera white. NOSE: Clear with pink turbinates. THROAT: No erythema or exudates. NECK: No masses, no JVD, no thyroid enlargement, no adenopathy. CHEST: No chest wall deformity. Symmetrical expansion. LUNGS: Equal air entry with diffuse wheezes and rhonchi CVS: Regular rate and rhythm, normal S1 and S2, no gallops, no murmurs, no rubs ABDOMEN: Soft, nontender. No hepatosplenomegaly, normal bowel sounds, no guarding or rigidity. EXTREMITIES: No clubbing, no edema, no cyanosis, 2+ pulses and upper and lower extremities. MUSCULOSKELETAL: Muscle strength and tone normal. SPINE: No scoliosis or deformity SKIN: No rashes CENTRAL NERVOUS SYSTEM: Alert and oriented -3. No focal deficits, tone is normal in all 4 extremities. PSYCHIATRIC: Alert and oriented -3. Appropriate affect. Intact judgment and insight. - Labs CBC & Chem 7: 08/22/21 14:11 11/14/20 14:11 Labs: Abnormal Lab Results - Last 24 Hours (Table) 11/15/20 11/15/20 11/16/20 Range/Units 17:08 20:48 07:00 POC Glucose (mg/dL) 315 H 355 H 184 H (75-99) mg/dL 11/16/20 11/16/20 Range/Units 11:33 12:57 POC Glucose (mg/dL) 340 H 299 H (75-99) mg/dL Assessment and Plan Plan: Assessment: #1. Acute exacerbation of chronic obstructive pulmonary disease, no definite acute pulmonary process on the chest x-ray. COVID-19 PCR was negative #2. History of left lung squamous cell carcinoma, status post left upper lobectomy in 2018, most recent follow-up computed tomography scan of the chest, abdomen and pelvis from October 26 2020 showing no new or enlarging suspicious masses or adenopathy to suggest acute neoplastic recurrence #3. Chronic and ongoing history of smoking, currently down to half a pack a day #4. History of CAD with previous NM and stent placement #5. Chronic atrial fibrillation on Xarelto #6. Hypertension #7. Hyperlipidemia #8. Insulin-dependent diabetes mellitus type 2 #9. Diverticulitis with previous history of bowel resection #10. Restless leg syndrome Plan: Continue current medical treatment Continue medical treatment for another 24 hours Possible discharge home in the next 24 hours if continues to be stable and improved I performed a history & physical examination of the patient and discussed their management with my nurse practitioner, Jewels Foster. I reviewed the nurse practitioner's note and agree with the documented findings and plan of care. Lung sounds are positive for diffuse wheezes throughout the lung nieves. The findings and the impression was discussed with the patient. I attest to the documentation by the nurse practitioner. Time with Patient: Less than 30
--- NOTE | 2020-11-16 13:36 | P.PN ---
Subjective Progress Note Date: 11/16/20 Patient was seen and evaluated this morning. She denies any shortness of breath. No acute events overnight. She appeared anxious as someone told her that her lung ''is rotated''. Objective - Vital Signs Vital signs: Vital Signs Temp 96.5 F L 11/16/20 10:58 Pulse 74 11/16/20 10:58 Resp 17 11/16/20 10:58 BP 111/70 11/16/20 10:58 Pulse Ox 93 L 11/16/20 10:58 Intake & Output 11/15/20 11/16/20 11/16/20 18:59 06:59 18:59 Intake Total 300 Balance 300 Weight 54.431 kg Intake: IV 300 Other: Voiding Method Toilet Toilet Toilet # Voids 1 3 - Exam General: The patient is awake and alert, in no distress Eye: there is normal conjunctiva bilaterally. Neck: The neck is supple, there is no JVD. Cardiovascular: Normal S1-S2, no S3-S4, no murmurs. Respiratory: Lungs clear to auscultation bilaterally Gastrointestinal: Abdomen is soft, nontender Musculoskeletal: There is no pedal edema. Neurological:. Speech is normal. Skin: Skin is warm and dry - Labs CBC & Chem 7: 11/14/20 14:11 11/14/20 14:11 Labs: Abnormal Lab Results - Last 24 Hours (Table) 11/15/20 11/15/20 11/16/20 Range/Units 17:08 20:48 07:00 POC Glucose (mg/dL) 315 H 355 H 184 H (75-99) mg/dL 11/16/20 11/16/20 Range/Units 11:33 12:57 POC Glucose (mg/dL) 340 H 299 H (75-99) mg/dL Assessment and Plan Assessment: PPatiejeffrey is a 70-year-old female with a past medical history of CAD with previous [place] and stent placement, atrial fibrillation on anticoagulation with Xarelto, hypertension, hyperlipidemia, insulin-dependent diabetes mellitus type 2, diverticulitis with previous bowel resections, restless leg syndrome, lung cancer resulting in left upper lobe lobectomy, and COPD not on home oxygen dependent but with continued nicotine dependence. Patient presented to the emergency department with a chief complaint of increasing shortness of breath, cough, and congestion over the past few days. She was evaluated and admitted for further management of her medical problems noted below Acute COPD exacerbation History of left lung squamous cell carcinoma status post left upper lobectomy -Patient was treated with IV steroids and antibiotics since admission. Her overall condition improved. I would switch her steroids dose to prednisone 40 mg daily starting tomorrow. -Repeat chest x-ray consistent with COPD. -Patient underwent bronchoscopy with BAL during this admission culture pending. No other acute findings on bronchoscopy otherwise Hypomagnesemia, replaced Nicotine dependence -Counseled extensively to quit Paroxysmal atrial fibrillation on anticoagulation with Xarelto -Continue anticoagulation with Xarelto Hypertension Monitor vital signs and continue daily medication regimen with metoprolol. Hyperlipidemia On Lipitor Insulin-dependent diabetes mellitus type 2 with steroid induced hyperglycemia Continue insulin regimen This discharge home tomorrow morning
[2020-11-16 16:33] LABS: Glucose,Whole Blood 249 mg/dL (75-99)
[2020-11-16] MEDS: METOPROLOL SUCCINATE (ER) 25 MG TAB.ER.24H PO SCH (17:00)
[2020-11-16] MEDS: NON FORMULARY DRUG (Mirabegron [Myrbetriq] 25 MG Tab.Er.24h) PO SCH (17:01)
[2020-11-16 20:00] LABS: Glucose,Whole Blood 254 mg/dL (75-99)
[2020-11-16] MEDS: MELATONIN 3 MG TABLET PO SCH (20:46)
[2020-11-16] MEDS: traZODone HCL 50 MG TAB PO SCH (20:46)
[2020-11-16] MEDS: ATORVASTATIN 40 MG TAB PO SCH (20:47)
[2020-11-17] MEDS: guaiFENesin-Coden 100-10MG/5ML 10 ML CUP PO PRN (00:54)
[2020-11-17] MEDS: MORPHINE SULFATE 4 MG/ML SYRINGE IV PRN (00:55)
[2020-11-17 07:03] LABS: Glucose,Whole Blood 58 mg/dL (75-99)
[2020-11-17] MEDS: INSULIN ASPART (NovoLOG) 100 UNIT/ML VIAL SQ SCH ×4 (07:03→12:09)
[2020-11-17 07:17] LABS: Glucose,Whole Blood 75 mg/dL (75-99)
[2020-11-17] MEDS ORDERED: INSULIN DETEMIR (LEVEMIR) 100 UNIT/ML SYR SQ SCH (08:00)
[2020-11-17 08:09] VITALS: RESP 18; TEMP 97.8
[2020-11-17] MEDS: INSULIN DETEMIR (LEVEMIR) 100 UNIT/ML SYR SQ SCH (08:23)
[2020-11-17] MEDS: PANTOPRAZOLE 40 MG TABLET PO SCH (08:28)
[2020-11-17] MEDS: predniSONE 20 MG TAB PO SCH (08:28)
[2020-11-17] MEDS: RIVAROXABAN 2.5 MG TABLET PO SCH (08:28)
[2020-11-17] MEDS: NICOTINE 21MG/24HR PATCH TRANSDERM SCH (08:28)
[2020-11-17] MEDS: lisinopriL 5 MG TAB PO SCH (08:28)
[2020-11-17] MEDS: FENOFIBRATE 160 MG TAB PO SCH (08:28)
[2020-11-17] MEDS: IPRATROPIUM-ALBUTEROL 3 ML NEB INHALATION SCH ×2 (08:53→12:17)
[2020-11-17] MEDS: BUDESONIDE 1 MG/2 ML NEBU INHALATION SCH (08:53)
[2020-11-17] MEDS: FORMOTEROL FUMARATE 20 MCG/2 ML NEBU INHALATION SCH (08:53)
[2020-11-17 10:04] VITALS: BP 105/68; PULSE 85
--- NOTE | 2020-11-17 10:57 | P.PN ---
Subjective Progress Note Date: 11/17/20 Principal diagnosis: Dyspnea, cough, wheezing This is a 70-year-old white female patient past medical history of COPD not oxygen dependent at baseline, history of squamous cell lung cancer status post left upper lobectomy [place] [address] Mauri Jules, and patient follows with Dr. Webster from medical oncology. Other medical history includes CAD with previous [place] and stent placement, chronic atrial fibrillation on the Route [place], hypertension, hyperlipidemia, insulin-dependent diabetes mellitus, diverticulitis with previous history of bowel resection, restless leg syndrome. Patient is on Symbicort and Combivent on a regular basis. She however continues to smoke, and currently is down to less than half a pack per day. On 11/08/2020 patient presented to the emergency department with complaints of cough, congestion, shortness of breath and wheezing. This apparently has been going on for the past 3-4 days prior to admission. She denies any fever, no hemoptysis. No naus ea vomiting or diarrhea. She was tested for COVID-19 and was found to be negative. She has not been vaccinated for COVID-19. She recently had follow-up computed tomography scan of the chest abdomen and pelvis and saw Dr. Webster in follow-up for her history of lung cancer. The computed tomography scan showed overall stable findings without new or enlarging suspicious masses or adenopathy to suggest active neoplastic recurrence. Chest x-ray the emergency department showed volume loss with left hemithorax, COPD, and stable left suprahilar nodularity compatible with tortuous vasculature, no evidence of acute pulmonary process. Patient was significantly dyspneic and bronchospastic, she was started on combination of azithromycin and Rocephin, IV steroids and nebulized bronchodilators. We were asked to see the patient in consultation On November 10, 2020 patient is seen in follow-up on medical surgical floor. She still quite bronchospastic and dyspneic. She is still coughing, she states she does not feel much improved. Although physical exam today reveals slightly improved lung sounds, still with diffuse wheezing. Patient remains on IV Solu- Medrol 60 every 6 hours, she is on azithromycin, Pulmicort, Perforomist. No hemoptysis, no chest discomfort, patient is able to ambulate to the bathroom without significant distress. On 11/16/2020 patient seen in follow-up on medical surgical floor. She is resting comfortably in bed, currently on room air, the pulse ox of 93-95%, she's had no fever or chills, vital signs have been stable, she states her breathing is improving, her IV steroids have been converted to oral prednisone, she status post bronchoscopy with BAL yesterday on 11/15/2020, BAL cultures are still pending for now. She has completed azithromycin and Rocephin. She has had no acute events overnight, no increased dyspnea, wheezing. She is improving. Today's labs are pending. On 11/17/2020 in follow-up on medical surgical floor. She is breathing comfortably, significantly improved, she has been ambulating in the room, tolerating activity well. She is 94% on room air, lung sounds are essentially clear to auscultation, no rhonchi or wheezing, no cough or phlegm production. Cultures are still pending, Gram stain showed any PMNs, epithelial cells, gram- positive cocci in pairs and gram-negative bacilli, final culture is pending, patient has completed a course of antibiotics, she has had no fever or chills, vital signs have been stable, her IV steroids have been transitioned to oral prednisone. Objective - Vital Signs Vital signs: Vital Signs Temp 97.8 F 11/17/20 09:59 Pulse 85 11/17/20 09:59 Resp 18 11/17/20 09:59 BP 105/68 11/17/20 09:59 Pulse Ox 94 L 11/17/20 08:00 Intake & Output 11/16/20 11/17/20 11/17/20 18:59 06:59 18:59 Other: Voiding Method Toilet # Voids 3 2 - Exam GENERAL EXAM: Alert, very pleasant, 70-year-old white female, currently on room air, with a pulse ox of 93-95% comfortable in no apparent distress. HEAD: Normocephalic/atraumatic. EYES: Normal reaction of pupils, equal size. Conjunctiva pink, sclera white. NOSE: Clear with pink turbinates. THROAT: No erythema or exudates. NECK: No masses, no JVD, no thyroid enlargement, no adenopathy. CHEST: No chest wall deformity. Symmetrical expansion. LUNGS: Equal air entry clear breath sounds. CVS: Regular rate and rhythm, normal S1 and S2, no gallops, no murmurs, no rubs ABDOMEN: Soft, nontender. No hepatosplenomegaly, normal bowel sounds, no guarding or rigidity. EXTREMITIES: No clubbing, no edema, no cyanosis, 2+ pulses and upper and lower extremities. MUSCULOSKELETAL: Muscle strength and tone normal. SPINE: No scoliosis or deformity SKIN: No rashes CENTRAL NERVOUS SYSTEM: Alert and oriented -3. No focal deficits, tone is normal in all 4 extremities. PSYCHIATRIC: Alert and oriented -3. Appropriate affect. Intact judgment and insight. - Labs CBC & Chem 7: 11/14/20 14:11 11/14/20 14:11 Labs: Abnormal Lab Results - Last 24 Hours (Table) 11/16/20 11/16/20 11/16/20 Range/Units 11:33 12:57 16:32 POC Glucose (mg/dL) 340 H 299 H 249 H (75-99) mg/dL 11/16/20 11/17/20 Range/Units 19:59 07:01 POC Glucose (mg/dL) 254 H 58 L (75-99) mg/dL Microbiology - Last 24 Hours (Table) 11/15/20 15:15 Gram Stain - Preliminary Bronchial Washings - Right Bronchial Washings Culture - Preliminary 11/15/20 15:15 Acid Fast Bacilli Culture - Preliminary Bronchial Washings - Right 11/15/20 15:15 Fungal Culture - Preliminary Bronchial Washings - Right Assessment and Plan Plan: Assessment: #1. Acute exacerbation of chronic obstructive pulmonary disease, no definite acute pulmonary process on the chest x-ray. COVID-19 PCR was negative. She is status post bronchoscopy with BAL, BAL cultures pending, clinical patient significantly improved #2. History of left lung squamous cell carcinoma, status post left upper lobectomy in 2018, most recent follow-up computed tomography scan of the chest, abdomen and pelvis from October 26 2020 showing no new or enlarging suspicious masses or adenopathy to suggest acute neoplastic recurrence #3. Chronic and ongoing history of smoking, currently down to half a pack a day #4. History of CAD with previous [place] and stent placement #5. Chronic atrial fibrillation on Xarelto #6. Hypertension #7. Hyperlipidemia #8. Insulin-dependent diabetes mellitus type 2 #9. Diverticulitis with previous history of bowel resection #10. Restless leg syndrome Plan: Patient has remained stable, and significantly improved in terms of dyspnea and hypoxia No fever or chills, she has completed antibiotics Obtain home oxygen assessment, and did not qualify for home oxygen, as she maintained a pulse ox of 93% on room air with walking We offered nebulized treatments were at home use, patient declined. Continue Combivent and Symbicort Outpatient follow-up with Dr. Milan in the office in 7-10 days Smoking cessation was advised I performed a history & physical examination of the patient and discussed their management with my nurse practitioner, Jewels Foster. I reviewed the nurse practitioner's note and agree with the documented findings and plan of care. Lung sounds are positive for diffuse wheezes throughout the lung nieves. The findings and the impression was discussed with the patient. I attest to the documentation by the nurse practitioner. Time with Patient: Less than 30
--- NOTE | 2020-11-17 11:41 | P.DS ---
Providers Date of admission: 11/08/20 13:10 Expected date of discharge: 11/17/20 Attending physician: Annemarie Hernandez Consults: 11/08/20 16:32 Consult Physician Routine Consulting Provider: Bridger Borja Consult Reason/Comments: COPD exacerbation Do you want consulting provider notified?: Yes Primary care physician: Nick Brock MD Hospital Course: PPatient is a 70-year-old female with a past medical history of CAD with previous [place] and stent placement, atrial fibrillation on anticoagulation with Xarelto, hypertension, hyperlipidemia, insulin-dependent diabetes mellitus type 2, diverticulitis with previous bowel resections, restless leg syndrome, lung cancer resulting in left upper lobe lobectomy, and COPD not on home oxygen dependent but with continued nicotine dependence. Patient presented to the emergency department with a chief complaint of increasing shortness of breath, cough, and congestion over the past few days. She was evaluated and admitted for further management of her medical problems noted below Acute COPD exacerbation History of left lung squamous cell carcinoma status post left upper lobectomy -Patient was treated with IV steroids and antibiotics since admission. Her overall condition improved. I would switch her steroids dose to prednisone 40 mg daily with a slow taper course -Repeat chest x-ray consistent with COPD. -Patient underwent bronchoscopy with BAL during this admission culture pending. No other acute findings on bronchoscopy otherwise -Follow up with pulmonary in the office as directed Hypomagnesemia, replaced Nicotine dependence -Counseled extensively to quit Paroxysmal atrial fibrillation on anticoagulation with Xarelto -Continue anticoagulation with Xarelto Hypertension Monitor vital signs and continue daily medication regimen with metoprolol. Hyperlipidemia On Lipitor Insulin-dependent diabetes mellitus type 2 with steroid induced hyperglycemia Continue insulin regimen Patient was seen and evaluated by me on the day of discharge. Lungs are clear to auscultation bilaterally. Patient offered a nebulizer machine at home but she refused during this admission. She'll be discharged home in a stable condition. Patient Condition at Discharge: Fair Plan - Discharge Summary Discharge Rx Participant: No New Discharge Prescriptions: New predniSONE 0 mg PO DIRECTED #30 tab Continue ALPRAZolam 0.25 mg PO AC-BID PRN PRN Reason: Anxiety Pantoprazole [Protonix] 40 mg PO DAILY Budesonide-Formot 160-4.5 Mcg [Symbicort 160-4.5 Mcg Inhaler] 2 puff INHALATION RT-BID HYDROcodone/APAP 10-325MG [[place] 10-325] 1 tab PO TID PRN PRN Reason: Pain Insulin Detemir (Levemir) [Levemir] See Protocol SQ DAILY INSULIN ASPART (NovoLOG) [NovoLOG (formulary)] See Protocol SQ AC-TID traZODone HCL 50 mg PO HS Metoprolol Succinate (ER) [Toprol XL] 25 mg PO AC-SUPPER Loperamide [Imodium] 2 mg PO TID PRN PRN Reason: Diarrhea Mirabegron [Myrbetriq] 25 mg PO AC-SUPPER Atorvastatin [Lipitor] 40 mg PO HS #30 tab Fenofibrate [Lofibra] 160 mg PO DAILY #30 tab Melatonin 3 mg PO HS tablet Nitroglycerin Sl Tabs [Nitrostat] 0.4 mg SUBLINGUAL Q5M PRN #25 tab PRN Reason: Chest Pain rOPINIRole HCL [Requip] 0.25 mg PO TID #21 tablet Rivaroxaban [Xarelto] 2.5 mg PO BID lisinopriL [Zestril] 5 mg PO DAILY Discharge Medication List ALPRAZolam 0.25 mg PO AC-BID PRN 11/03/15 [History] Pantoprazole [Protonix] 40 mg PO DAILY 01/14/17 [History] Budesonide-Formot 160-4.5 Mcg [Symbicort 160-4.5 Mcg Inhaler] 2 puff INHALATION RT-BID 08/31/17 [History] HYDROcodone/APAP 10-325MG [[place] 10-325] 1 tab PO TID PRN 08/19/18 [History] Insulin Detemir (Levemir) [Levemir] See Protocol SQ DAILY 08/27/18 [History] INSULIN ASPART (NovoLOG) [NovoLOG (formulary)] See Protocol SQ AC-TID 09/07/18 [History] traZODone HCL 50 mg PO HS 09/07/18 [History] Loperamide [Imodium] 2 mg PO TID PRN 01/13/19 [History] Metoprolol Succinate (ER) [Toprol XL] 25 mg PO AC-SUPPER 01/13/19 [History] Mirabegron [Myrbetriq] 25 mg PO AC-SUPPER 01/13/19 [History] Atorvastatin [Lipitor] 40 mg PO HS #30 tab 01/15/19 [Rx] Fenofibrate [Lofibra] 160 mg PO DAILY #30 tab 01/15/19 [Rx] Melatonin 3 mg PO HS tablet 01/15/19 [Rx] Nitroglycerin Sl Tabs [Nitrostat] 0.4 mg SUBLINGUAL Q5M PRN #25 tab 01/15/19 [Rx] rOPINIRole HCL [Requip] 0.25 mg PO TID #21 tablet 07/27/19 [Rx] Rivaroxaban [Xarelto] 2.5 mg PO BID 11/08/20 [History] lisinopriL [Zestril] 5 mg PO DAILY 11/08/20 [History] predniSONE 0 mg PO DIRECTED #30 tab 11/17/20 [Rx] Follow up Appointment(s)/Referral(s): Nick Brock MD [Primary Care Provider] - 11/23/20 1:30 pm Leonard Milan MD [STAFF PHYSICIAN] - 12/02/20 2:00 pm Patient Instructions/Handouts: COPD (Chronic Obstructive Pulmonary Disease) (DC), Flexible Bronchoscopy (DC) Discharge Disposition: HOME SELF-CARE
[2020-11-17 11:42] LABS: Glucose,Whole Blood 205 mg/dL (75-99)
== END 2020-11-17 12:51 | disposition home or self-care (01) | DRG 191 ==
LOC: EC 11:02 → 4SSUR 13:10
PROVIDERS: ADMIT Internal Medicine; ATTEND Internal Medicine
PROC: 3E0F7SF Introduction of Other Gas into Respiratory Tract, Via Natural or Artificial Opening (ICD-10-PCS; 2020-11-08)
PROC: 0B9D8ZX Drainage of Right Middle Lung Lobe, Via Natural or Artificial Opening Endoscopic, Diagnostic (ICD-10-PCS; principal; 2020-11-15 09:45)
DX: J44.1 Chronic obstructive pulmonary disease with (acute) exacerbation (principal); I48.20 Chronic atrial fibrillation, unspecified; D69.3 Immune thrombocytopenic purpura; I25.2 Old myocardial infarction; J98.09 Other diseases of bronchus, not elsewhere classified; I25.10 Atherosclerotic heart disease of native coronary artery without angina pectoris; G25.81 Restless legs syndrome; F41.9 Anxiety disorder, unspecified; M79.7 Fibromyalgia; Z20.822 Contact with and (suspected) exposure to COVID-19; T38.0X5A Adverse effect of glucocorticoids and synthetic analogues, initial encounter; F17.210 Nicotine dependence, cigarettes, uncomplicated; E11.9 Type 2 diabetes mellitus without complications; I48.0 Paroxysmal atrial fibrillation; E83.42 Hypomagnesemia; K58.9 Irritable bowel syndrome, unspecified; I10 Essential (primary) hypertension; E11.65 Type 2 diabetes mellitus with hyperglycemia; E78.5 Hyperlipidemia, unspecified; R09.02 Hypoxemia; Z79.01 Long term (current) use of anticoagulants; Z79.4 Long term (current) use of insulin; Z79.51 Long term (current) use of inhaled steroids; Z79.899 Other long term (current) drug therapy; Z87.11 Personal history of peptic ulcer disease; Z85.118 Personal history of other malignant neoplasm of bronchus and lung; Z90.2 Acquired absence of lung [part of]; Z90.49 Acquired absence of other specified parts of digestive tract; Z90.710 Acquired absence of both cervix and uterus; Z95.5 Presence of coronary angioplasty implant and graft; Z71.6 Tobacco abuse counseling; Z87.19 Personal history of other diseases of the digestive system
CPT/HCPCS: 31624; 36415; 71045; 71046; 80048; 80053; 83036; 83605; 83735; 83880; 84484; 85025; 85027; 85610; 85730; 87070; 87075; 87102; 87116; 87205; 87206; 87252; 87496; 87498; 87502; 87529; 87634; 87635; 87798; 88108; 88305; 93005; 94640; 94760; 99285

== ENCOUNTER 2021-01-03 12:48 | Observation (INO) | payer MEDICARE, OTHER ==
[2021-01-03] MEDS ORDERED: ASPIRIN 81 MG PO STA (13:18)
[2021-01-03] MEDS ORDERED: SODIUM CHLORIDE 0.9% 500 ML 500 ML IV STA (13:18)
--- NOTE | 2021-01-03 13:21 | ED ---
General Adult HPI - General Chief complaint: Chest Pain Stated complaint: chest pain, dizziness Time Seen by Provider: 01/03/21 13:02 Source: patient Mode of arrival: EMS Limitations: no limitations - History of Present Illness Initial comments: Dictation was produced using [employer] dictation software. please excuse any grammatical, word or spelling errors. Chief Complaint: 70-year-old female with past medical history of coronary artery disease diabetes and [place] presents to the emergency part in for episodes of chest pain History of Present Illness: Patient is 68-year-old female presents to the emergency department for chest pain. Patient reports that today she had episode of substernal chest pressure. She took 2 nitroglycerin with improvement of her symptoms. Reports that her symptoms were associated with diaphoresis and na usea. Denies any radiation to the jaw or upper extremities. Patient states that her symptoms were similar to the last time she was diagnosed with myocardial infarction. Patient is asymptomatic at this time. She states that over the last several days she's been having exertional diaphoresis. States that the last time should [place] she was having excessive diaphoresis. Denies any constitutional symptoms. No fever no cough. She states that her pain is not worse with deep inspiration. The ROS documented in this emergency department record has been reviewed and confirmed by me. Those systems with pertinent positive or negative responses have been documented in the HPI. All other systems are other negative and/or noncontributory. PHYSICAL EXAM: General Impression: Alert and oriented x3, not in acute distress HEENT: Normocephalic atraumatic, extra-ocular movements intact, pupils equal and reactive to light bilaterally, mucous membranes moist. Cardiovascular: Heart regular rate and rhythm Chest: Able to complete full sentences, no retractions, no tachypnea Abdomen: abdomen soft, non-tender, non-distended, no organomegaly Musculoskeletal: Pulses present and equal in all extremities, no peripheral edema Motor: no focal deficits noted Neurological: CN II-XII grossly intact, no focal motor or sensory deficits noted Skin: Intact with no visualized rashes Psych: Normal affect and mood ED course: 70-year-old female presents to the emergency department for clinical presentation concerning for acute coronary syndrome. It is asymptomatic at this time. EKG is unremarkable. Vital signs are stable. Laboratory evaluation obtained. CBC, coag panel, metabolic panel is unremarka ble. Troponin is negative. Chest x-ray is nonacute. Patient observed in the emergency department for approximately 2 hours with no recurrence of chest pain. She given aspirin. Given the patient's degree of symptoms and past medical history is recommended to her to be admitted for cardiac monitoring and cardiology consultation. Patient is agreeable to plan. She is reevaluated at bedside at 3:00 PM found to be in stable medical condition. She continues to remain asymptomatic. EKG interpretation: Ventricular rate 90, normal sinus rhythm, [place] interval 164, QRS 100, QTC 457. No [place] prolongation, no QTC prolongation, no ST or T-wave changes noted. EKG compared to 11/08/2020 showing no changes. Overall, this EKG is unremarkable - Related Data Home Medications Medication Instructions Recorded Confirmed ALPRAZolam 0.25 mg PO AC-BID PRN 11/03/15 01/03/21 Pantoprazole [Protonix] 40 mg PO DAILY 01/14/17 01/03/21 Budesonide-Formot 160-4.5 Mcg 2 puff INHALATION RT-BID 08/31/17 01/03/21 [Symbicort 160-4.5 Mcg Inhaler] HYDROcodone/APAP 10-325MG [[place] 1 tab PO TID PRN 08/19/18 01/03/21 10-325] traZODone HCL 50 mg PO HS 09/07/18 01/03/21 Loperamide [Imodium] 2 mg PO TID PRN 01/13/19 01/03/21 Metoprolol Succinate (ER) [Toprol 25 mg PO DAILY 01/13/19 01/03/21 XL] Mirabegron [Myrbetriq] 25 mg PO AC-SUPPER 01/13/19 01/03/21 Rivaroxaban [Xarelto] 2.5 mg PO BID 11/08/20 01/03/21 lisinopriL [Zestril] 5 mg PO DAILY 11/08/20 01/03/21 Aspirin EC [Ecotrin Low Dose] 81 mg PO DAILY 01/03/21 01/03/21 Insulin Aspart [NovoLOG Flexpen] See Protocol SQ AC-TID 01/03/21 01/03/21 Insulin Detemir [Levemir Flextouch See Protocol SQ DAILY 01/03/21 01/03/21 Pen] Nitroglycerin Sl Tabs [Nitrostat] 0.4 mg SL Q5M PRN 01/03/21 01/03/21 Previous Rx's Medication Instructions Recorded Atorvastatin [Lipitor] 40 mg PO HS #30 tab 01/15/19 Fenofibrate [Lofibra] 160 mg PO DAILY #30 tab 01/15/19 Melatonin 3 mg PO HS tablet 01/15/19 rOPINIRole HCL [Requip] 0.25 mg PO TID #21 tablet 07/27/19 Allergies Allergy/AdvReac Type Severity Reaction Status Date / Time No Known Allergies Allergy Verified 01/03/21 14:12 Review of Systems ROS Statement: Those systems with pertinent positive or pertinent negative responses have been documented in the HPI. ROS Other: All systems not noted in ROS Statement are negative. Past Medical History Past Medical History: Coronary Artery Disease (CAD), Diabetes Mellitus, Fibromyalgia, GERD/Reflux, Myocardial Infarction ([place]) Additional Past Medical History / Comment(s): Idiopathic thrombocytopenia purpura, IBS, diverticulitis, hiatal hernia, 2 herniated discs-L3/L4, Restless Leg Syndrome, gastritis, superficial gastric ulcers. nodule on lt lung-Cancer Stg 1 Last Myocardial Infarction Date:: 01/2017 History of Any Multi-Drug Resistant Organisms: None Reported Past Surgical History: Adenoidectomy, Bladder Surgery, Bowel Resection, Cholecystectomy, Heart Catheterization With Stent, Hernia Repair, Hysterectomy, Tonsillectomy Additional Past Surgical History / Comment(s): BLADDER SUSPENSION x 2, breast biopsy x3, bowel resection due to rupture. left upper lobe of lung removed per [place], Past Anesthesia/Blood Transfusion Reactions: No Reported Reaction Additional Past Anesthesia/Blood Transfusion Reaction / Comment(s): Pt received blood in 2005 due to ITP without reaction. Date of Last Stent Placement:: 01/2017 Past Psychological History: Anxiety Smoking Status: Current every day smoker Past Alcohol Use History: None Reported Past Drug Use History: None Reported - Past Family History Mother Family Medical History: Cancer, Diabetes Mellitus Additional Family Medical History / Comment(s): Father had a defibrillator. He of heart dx in his 80's Father Family Medical History: Diabetes Mellitus Additional Family Medical History / Comment(s): HEART DISEASE General Exam Limitations: no limitations Course Vital Signs 01/03/21 12:53 Temperature 97.7 F Pulse Rate 95 Respiratory 18 Rate Blood Pressure 113/59 O2 Sat by Pulse 97 Oximetry Medical Decision Making - Lab Data Result diagrams: 01/03/21 13:38 01/03/21 13:38 Lab Results 01/03/21 01/03/21 01/03/21 Range/Units 13:38 13:38 13:38 WBC 12.5 H (3.8-10.6) k/uL RBC 4.92 (3.80-5.40) m/uL Hgb 14.0 (11.4-16.0) gm/dL Hct 43.3 (34.0-46.0) % MCV 88.0 (80.0-100.0) fL MCH 28.4 (25.0-35.0) pg MCHC 32.3 (31.0-37.0) g/dL RDW 14.2 (11.5-15.5) % Plt Count 246 (150-450) k/uL MPV 8.8 Neutrophils % 82 % Lymphocytes % 11 % Monocytes % 6 % Eosinophils % 1 % Basophils % 0 % Neutrophils # 10.2 H (1.3-7.7) k/uL Lymphocytes # 1.3 (1.0-4.8) k/uL Monocytes # 0.7 (0-1.0) k/uL Eosinophils # 0.1 (0-0.7) k/uL Basophils # 0.0 (0-0.2) k/uL PT 10.7 (9.0-12.0) sec INR 1.0 (<1.2) APTT 22.9 (22.0-30.0) sec Sodium 134 L (137-145) mmol/L Potassium 4.4 (3.5-5.1) mmol/L Chloride 104 (98-107) mmol/L Carbon Dioxide 22 (22-30) mmol/L Anion Gap 8 mmol/L BUN 19 H (7-17) mg/dL Creatinine 0.64 (0.52-1.04) mg/dL Est GFR (CKD-EPI)AfAm >90 (>60 ml/min/1.73 sqM) Est GFR (CKD-EPI)NonAf 90 (>60 ml/min/1.73 sqM) Glucose 227 H (74-99) mg/dL Calcium 9.6 (8.4-10.2) mg/dL Magnesium 1.9 (1.6-2.3) mg/dL Total Bilirubin 0.5 (0.2-1.3) mg/dL AST 24 (14-36) U/L ALT 17 (4-34) U/L Alkaline Phosphatase 110 (38-126) U/L Troponin I (0.000-0.034) ng/mL Total Protein 6.3 (6.3-8.2) g/dL Albumin 3.8 (3.5-5.0) g/dL 01/03/21 Range/Units 13:38 WBC (3.8-10.6) k/uL RBC (3.80-5.40) m/uL Hgb (11.4-16.0) gm/dL Hct (34.0-46.0) % MCV (80.0-100.0) fL MCH (25.0-35.0) pg MCHC (31.0-37.0) g/dL RDW (11.5-15.5) % Plt Count (150-450) k/uL MPV Neutrophils % % Lymphocytes % % Monocytes % % Eosinophils % % Basophils % % Neutrophils # (1.3-7.7) k/uL Lymphocytes # (1.0-4.8) k/uL Monocytes # (0-1.0) k/uL Eosinophils # (0-0.7) k/uL Basophils # (0-0.2) k/uL PT (9.0-12.0) sec INR (<1.2) APTT (22.0-30.0) sec Sodium (137-145) mmol/L Potassium (3.5-5.1) mmol/L Chloride (98-107) mmol/L Carbon Dioxide (22-30) mmol/L Anion Gap mmol/L BUN (7-17) mg/dL Creatinine (0.52-1.04) mg/dL Est GFR (CKD-EPI)AfAm (>60 ml/min/1.73 sqM) Est GFR (CKD-EPI)NonAf (>60 ml/min/1.73 sqM) Glucose (74-99) mg/dL Calcium (8.4-10.2) mg/dL Magnesium (1.6-2.3) mg/dL Total Bilirubin (0.2-1.3) mg/dL AST (14-36) U/L ALT (4-34) U/L Alkaline Phosphatase (38-126) U/L Troponin I <0.012 (0.000-0.034) ng/mL Total Protein (6.3-8.2) g/dL Albumin (3.5-5.0) g/dL Disposition Clinical Impression: Chest pain Disposition: ADMITTED IP TO THIS HOSP Condition: Fair Referrals: Nick Brock MD [Primary Care Provider] - 1-2 days
[2021-01-03 13:58] LABS: Basophils % (A) 0 %; Eosinophils # (A) 0.1 k/uL (0-0.7); Eosinophils % (A) 1 %; HCT 43.3 % (34.0-46.0); Lymphocytes # (A) 1.3 k/uL (1.0-4.8); Lymphocytes % (A) 11 %; MCH 28.4 pg (25.0-35.0); MCHC 32.3 g/dL (31.0-37.0); Mean Platelet Volume 8.8; Monocytes # (A) 0.7 k/uL (0-1.0); Monocytes % (A) 6 %; Neutrophils # (A) 10.2 k/uL (1.3-7.7); Neutrophils % (A) 82 %; Platelet Count 246 k/uL (150-450); RBC 4.92 m/uL (3.80-5.40); RDW 14.2 % (11.5-15.5); WBC 12.5 k/uL (3.8-10.6)
[2021-01-03 14:11] LABS: Partial Thromboplastin Time 22.9 sec (22.0-30.0); Prothrombin Time 10.7 sec (9.0-12.0)
[2021-01-03 14:16] LABS: ALT 17 U/L (4-34); AST 24 U/L (14-36); African American GFR (CKD) >90 (>60 ml/min/1.73 sqM); Albumin 3.8 g/dL (3.5-5.0); Alkaline Phosphatase 110 U/L (38-126); Anion Gap 8 mmol/L; Blood Urea Nitrogen 19 mg/dL (7-17); Calcium 9.6 mg/dL (8.4-10.2); Carbon Dioxide 22 mmol/L (22-30); Chloride 104 mmol/L (98-107); Glucose 227 mg/dL (74-99); Magnesium 1.9 mg/dL (1.6-2.3); Non-African American GFR(CKD) 90 (>60 ml/min/1.73 sqM); Potassium 4.4 mmol/L (3.5-5.1); Sodium 134 mmol/L (137-145); Total Bilirubin 0.5 mg/dL (0.2-1.3); Total Protein 6.3 g/dL (6.3-8.2)
--- NOTE | 2021-01-03 14:48 | XR ---
EXAMINATION TYPE: XR chest 2V DATE OF EXAM: 01/03/2021 COMPARISON: Chest x-ray 11/12/[address] 10/26/2020 HISTORY: Chest pain TECHNIQUE: Frontal and lateral views of the chest are obtained. FINDINGS: The abnormalities in the left hemithorax are again noted, there is volume loss, perihilar increased density. There is no evident pneumothorax or pleural effusion. Aorta is dense. Heart size i s small and stable. Right lung is relatively spared. Patient is rotated. IMPRESSION: No acute cardiopulmonary process. Stable postop changes. There is underlying emphysema.
[2021-01-03] MEDS ORDERED: NITROGLYCERIN SL TABS 0.4 MG TAB SUBLINGUAL PRN (14:55)
[2021-01-03] MEDS ORDERED: ALPRAZolam 0.25 MG TAB PO PRN (15:21)
[2021-01-03] MEDS ORDERED: LOPERAMIDE 2 MG CAP PO PRN (15:21)
--- NOTE | 2021-01-03 15:26 | P.HPIM ---
History of Present Illness H&P Date: 01/03/21 This is a 70-year-old female with complex past medical history noted below significant for coronary artery disease with prior stent placement that presented to the emergency room with chest heaviness and dizziness. Patient said that for the past week she has been having significant diaphoresis with minimal exertion. She is also reporting some dry cough. Patient is not vaccinated for COVID-19. Patient denies any recent sick contact. She said that today she was feeling dizzy and started having chest heaviness for which she took one nitro with some relief. She then decided to come to the emergency room for further evaluation. 12-lead EKG showed no acute ischemic changes. Patient will be placed on observation for further evaluation. Review of Systems Review of system: 14 points review of systems were obtained and were negative except to what were mentioned in the HPI. Past Medical History Past Medical History: Coronary Artery Disease (CAD), Diabetes Mellitus, Fibromyalgia, GERD/Reflux, Myocardial Infarction ([place]) Additional Past Medical History / Comment(s): Idiopathic thrombocytopenia p urpura, IBS, diverticulitis, hiatal hernia, 2 herniated discs-L3/L4, Restless Leg Syndrome, gastritis, superficial gastric ulcers. nodule on lt lung-Cancer Stg 1 Last Myocardial Infarction Date:: 01/2017 History of Any Multi-Drug Resistant Organisms: None Reported Past Surgical History: Adenoidectomy, Bladder Surgery, Bowel Resection, Cholecystectomy, Heart Catheterization With Stent, Hernia Repair, Hysterectomy, Tonsillectomy Additional Past Surgical History / Comment(s): BLADDER SUSPENSION x 2, breast biopsy x3, bowel resection due to rupture. left upper lobe of lung removed per [place], Past Anesthesia/Blood Transfusion Reactions: No Reported Reaction Additional Past Anesthesia/Blood Transfusion Reaction / Comment(s): Pt received blood in 2005 due to ITP without reaction. Date of Last Stent Placement:: 01/2017 Past Psychological History: Anxiety Smoking Status: Current every day smoker Past Alcohol Use History: None Reported Past Drug Use History: None Reported - Past Family History Mother Family Medical History: Cancer, Diabetes Mellitus Additional Family Medical History / Comment(s): Father had a defibrillator. He of heart dx in his 80's Father Family Medical History: Diabetes Mellitus Additional Family Medical History / Comment(s): HEART DISEASE Medications and Allergies Home Medications Medication Instructions Recorded Confirmed Type ALPRAZolam 0.25 mg PO AC-BID PRN 11/03/15 01/03/21 History Pantoprazole [Protonix] 40 mg PO DAILY 01/14/17 01/03/21 History Budesonide-Formot 160-4.5 Mcg 2 puff INHALATION RT-BID 08/31/17 01/03/21 History [Symbicort 160-4.5 Mcg Inhaler] HYDROcodone/APAP 10-325MG [[place] 1 tab PO TID PRN 08/19/18 01/03/21 History 10-325] traZODone HCL 50 mg PO HS 09/07/18 01/03/21 History Loperamide [Imodium] 2 mg PO TID PRN 01/13/19 01/03/21 History Metoprolol Succinate (ER) [Toprol 25 mg PO DAILY 01/13/19 01/03/21 History XL] Mirabegron [Myrbetriq] 25 mg PO AC-SUPPER 01/13/19 01/03/21 History Atorvastatin [Lipitor] 40 mg PO HS #30 tab 01/15/19 01/03/21 Rx Fenofibrate [Lofibra] 160 mg PO DAILY #30 tab 01/15/19 01/03/21 Rx Melatonin 3 mg PO HS tablet 01/15/19 01/03/21 Rx rOPINIRole HCL [Requip] 0.25 mg PO TID #21 tablet 07/27/19 01/03/21 Rx Rivaroxaban [Xarelto] 2.5 mg PO BID 11/08/20 01/03/21 History lisinopriL [Zestril] 5 mg PO DAILY 11/08/20 01/03/21 History Aspirin EC [Ecotrin Low Dose] 81 mg PO DAILY 01/03/21 01/03/21 History Insulin Aspart [NovoLOG Flexpen] See Protocol SQ AC-TID 01/03/21 01/03/21 History Insulin Detemir [Levemir Flextouch See Protocol SQ DAILY 01/03/21 01/03/21 History Pen] Nitroglycerin Sl Tabs [Nitrostat] 0.4 mg SL Q5M PRN 01/03/21 01/03/21 History Allergies Allergy/AdvReac Type Severity Reaction Status Date / Time No Known Allergies Allergy Verified 01/03/21 14:12 Physical Exam Vitals: Vital Signs Temp Pulse Resp BP Pulse Ox 10/11/21 12:53 97.7 F 95 18 113/59 97 Intake and Output 01/03/21 01/03/21 01/03/21 06:59 14:59 22:59 Other: Weight 52.163 kg General: The patient is awake and alert, in no distress Eye: there is normal conjunctiva bilaterally. Neck: The neck is supple, there is no JVD. Cardiovascular: Normal S1-S2, no S3-S4, no murmurs. Respiratory: Lungs clear to auscultation bilaterally Gastrointestinal: Abdomen is soft, nontender Musculoskeletal: There is no pedal edema. Neurological:. Speech is normal. Skin: Skin is warm and dry Results CBC & Chem 7: 01/03/21 13:38 01/03/21 13:38 Labs: Abnormal Lab Results - Last 24 Hours (Table) 01/03/21 01/03/21 Range/Units 13:38 13:38 WBC 12.5 H (3.8-10.6) k/uL Neutrophils # 10.2 H (1.3-7.7) k/uL Sodium 134 L (137-145) mmol/L BUN 19 H (7-17) mg/dL Glucose 227 H (74-99) mg/dL Assessment and Plan Assessment: 1. Chest pain, atypical in nature. Twelve-lead EKG in the ER showed no acute ischemic changes. 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 Cardiology consulted for further evaluation 2. History of coronary artery disease with prior [place] and stent placement 3. Chronic atrial fibrillation on anticoagulation with Rivaroxaban 4. Chronic medical problems: Type 2 diabetes, generalized anxiety disorder, hypertension, hyperlipidemia, history of lung cancer status post left upper lobectomy, and underlying COPD Patient will be placed in observation awaiting cardiology evaluation. Rule out COVID
[2021-01-03] MEDS: HYDROcodone/APAP 10-325MG 1 EACH TAB PO PRN ×2 (16:41→21:12)
[2021-01-03] MEDS ORDERED: PATIENT'S OWN (Mirabegron [Myrbetriq] 25 MG Tab.Er.24h) PO SCH (17:30)
[2021-01-03] MEDS ORDERED: ATORVASTATIN 40 MG TAB PO SCH (21:00)
[2021-01-03] MEDS ORDERED: MELATONIN 3 MG TABLET PO SCH (21:00)
[2021-01-03] MEDS ORDERED: RIVAROXABAN 2.5 MG TABLET PO SCH (21:00)
[2021-01-03] MEDS ORDERED: traZODone HCL 50 MG TAB PO SCH (21:00)
[2021-01-03] MEDS: SYMBICORT 160-4.5 MCG INHALER INHALATION SCH (21:04)
[2021-01-04] MEDS: HYDROcodone/APAP 10-325MG 1 EACH TAB PO PRN ×2 (01:12→08:32)
[2021-01-04] MEDS ORDERED: PANTOPRAZOLE 40 MG TABLET PO SCH (07:30)
[2021-01-04] MEDS: SYMBICORT 160-4.5 MCG INHALER INHALATION SCH (07:31)
[2021-01-04 08:23] VITALS: BP 104/55; PULSE 85; RESP 17; TEMP 98.1
[2021-01-04] MEDS ORDERED: CAFFEINE CITRATE 60 MG/3 ML VIAL IV PRN (08:28)
[2021-01-04] MEDS ORDERED: REGADENOSON 0.4 MG/5 ML SYRINGE IV PRN (08:28)
[2021-01-04] MEDS ORDERED: AMINOPHYLLINE 500 MG/20 ML VIAL IV PRN (08:28)
[2021-01-04] MEDS ORDERED: ASPIRIN 81 MG PO SCH (09:00)
[2021-01-04] MEDS ORDERED: METOPROLOL SUCCINATE (ER) 25 MG TAB.ER.24H PO SCH (09:00)
[2021-01-04] MEDS ORDERED: FENOFIBRATE 160 MG TAB PO SCH (09:00)
[2021-01-04] MEDS ORDERED: ASPIRIN 325 MG TAB PO SCH (09:00)
[2021-01-04] MEDS ORDERED: lisinopriL 5 MG TAB PO SCH (09:00)
--- NOTE | 2021-01-04 10:24 | P.CRDCN ---
History of Present Illness History of present illness: HISTORY OF PRESENTING ILLNESS This is a pleasant 70-year-old female past medical history significant for coronary artery disease status post stent placement to the LAD in 2017, type 2 diabetes mellitus, hypertension, dyslipidemia, lung cancer status post left upper lobe lobectomy 2018, fibromyalgia and chronic nicotine dependence. Recent bronchoscopy, bronchial alveolar lavage of right middle lobe in October 2020. She follows in the office with Dr. Veliz. We are on consultation for chest pain. Patient presents to the emergency department with episode of diaphoresis and exe rtional shortness of breath yesterday. She states that for a week she has been feeling short of breath and has diaphoresis when she does any activity. Yesterday specifically she was helping a friend clean her house, she had acute onset of shortness of breath, diaphoresis and dizziness. She describes the dizziness as "everything was blurry", and she also felt lightheaded. She denies having any chest pain. She does endorse some brief non-radiating chest heaviness. She denies nausea, vomiting, palpitations, lower extremity edema, weakness, headache. She states her symptoms are somewhat similar to her AL in 2017, however, at that time she had chest heaviness. She states she recently quit smoking in October 2020. She denies alcohol use. She states she is compliant with her medication. DIAGNOSTICS EKG reveals sinus rhythm, heart rate 90, T wave inversions in leads III, aVF, right atrial enlargement. Prior EKG October 2020 revealed similar findings. Last Cardiac Catheterization 2016 with stent to proximal LAD Most recent stress test- Lexiscan in March 2019- negative for reversible ischemia Most recent echocardiogram - 12/2018- normal EF 55-60%. Patient not on telemetry to assess Chest xray no acute cardiopulmonary process. Laboratory reviewed, troponin negative x 3. WBC 12.5, hemoglobin 14, platelets 246, sodium 134, potassium 4.4, BUN 19, serum creatinine 0.6, COVID-19 PCR negative Current home medications include when necessary nitroglycerin, metoprolol succinate 25 mg daily, aspirin 81 mg daily, atorvastatin 40 mg nightly, Lofribra, Symbicort, melatonin, Protonix, lisinopril 5 mg daily, insulin REVIEW OF SYSTEMS At the time of my exam: CONSTITUTIONAL: Denies fever or chills. +diaphoresis CARDIOVASCULAR:+brief chest heaviness, +shortness of breath, Denies orthopnea, PND or palpitations. RESPIRATORY: Denies cough. GASTROINTESTINAL: Denies abdominal pain, diarrhea, constipation, nausea or vomiting. MUSCULOSKELETAL: Denies myalgias. NEUROLOGIC: Denies numbness, tingling, headacbe or weakness. ENDOCRINE: Denies fatigue, weight change, polydipsia or polyurina. GENITOURINARY: Denies burning, hematuria or urgency with micturation. HEMATOLOGIC: Denies history of anemia or bleeding. PHYSICAL EXAMINATION Blood pressure 104/55, heart rate 85, afebrile, did not saturations on room air CONSTITUTIONAL: No apparent distress. HEENT: Head is normocephalic. Pupils are equal, round. Sclerae anicteric. Mucous membranes of the mouth are moist. No JVD. No carotid bruit. CHEST EXAMINATION: Lungs are clear right upper and lower lobe, diminished in the bases to auscultation. No chest wall tenderness is noted on palpation or with deep breathing. HEART EXAMINATION: Regular rate and rhythm. S1, S2 heard. Systolic murmur noted, No gallops or rub. ABDOMEN: Soft, nontender. Positive bowel sounds. EXTREMITIES: 2+ peripheral pulses, no lower extremity edema and no calf tenderness. SKIN: warm, dry NEUROLOGIC EXAMINATION: Patient is awake, alert and oriented x3. ASSESSMENT Chest pain, atypical, acute coronary syndrome ruled out Dyspnea on exertion and diaphoresis Dizziness Coronary artery disease status post stent placement to the LAD in 2017 Type 2 diabetes mellitus Hypertension Dyslipidemia History of Lung cancer status post left upper lobe lob[place] [address] Jules Fibromyalgia Chronic nicotine dependence- quit recently in October 2020 PLAN Repeat EKG this morning with no acute findings suggestive of ischemia An acute coronary event has been ruled out with no EKG evidence of ischemia and negative cardiac enzymes. Obtain 2D echocardiogram and doppler study to assess cardiac structure and function. Perform Lexiscan stress test to assess for stress induced cardiac ischemia. If abnormal will consider coronary angiography. If echocardiogram with no acute findings and Lexiscan stress test is negative for reversible ischemia ok to discharge from cardiology perspective and follow up outpatient with Dr. Veliz. Continue home cardiac medications Patient states she does not take Xarelto at home. Thank you kindly for this consultation. Nurse Practitioner note has been reviewed, I agree with a documented findings and plan of care. Patient was seen and examined. Past Medical History Past Medical History: Coronary Artery Disease (CAD), Diabetes Mellitus, Fibromyalgia, GERD/Reflux, Myocardial Infarction (AL) Additional Past Medical History / Comment(s): Idiopathic thrombocytopenia purpura, IBS, diverticulitis, hiatal hernia, 2 herniated discs-L3/L4, Restless Leg Syndrome, gastritis, superficial gastric ulcers. nodule on lt lung-Cancer Stg 1 Last Myocardial Infarction Date:: 01/2017 History of Any Multi-Drug Resistant Organisms: None Reported Past Surgical History: Adenoidectomy, Bladder Surgery, Bowel Resection, Cholecystectomy, Heart Catheterization With Stent, Hernia Repair, Hysterectomy, Tonsillectomy Additional Past Surgical History / Comment(s): BLADDER SUSPENSION x 2, breast biopsy x3, bowel resection due to rupture. left upper lobe of lung removed per CA, Past Anesthesia/Blood Transfusion Reactions: No Reported Reaction Additional Past Anesthesia/Blood Transfusion Reaction / Comment(s): Pt received blood in 2005 due to ITP without reaction. Date of Last Stent Placement:: 01/2017 Past Psychological History: Anxiety Additional Psychological History / Comment(s): . Smoking Status: Current every day smoker Past Alcohol Use History: None Reported Additional Past Alcohol Use History / Comment(s): STARTED SMOKING AT AGE 18- SMOKED 1PPD AND QUIT Past Drug Use History: None Reported - Past Family History Mother Family Medical History: Cancer, Diabetes Mellitus Additional Family Medical History / Comment(s): Father had a defibrillator. He of heart dx in his 80's Father Family Medical History: Diabetes Mellitus Additional Family Medical History / Comment(s): HEART DISEASE Medications and Allergies Home Medications Medication Instructions Recorded Confirmed Type ALPRAZolam 0.25 mg PO AC-BID PRN 11/03/15 01/03/21 History Pantoprazole [Protonix] 40 mg PO DAILY 01/14/17 01/03/21 History Budesonide-Formot 160-4.5 Mcg 2 puff INHALATION RT-BID 08/31/17 01/03/21 History [Symbicort 160-4.5 Mcg Inhaler] HYDROcodone/APAP 10-325MG [[place] 1 tab PO TID PRN 08/19/18 01/03/21 History 10-325] traZODone HCL 50 mg PO HS 09/07/18 01/03/21 History Loperamide [Imodium] 2 mg PO TID PRN 01/13/19 01/03/21 History Metoprolol Succinate (ER) [Toprol 25 mg PO DAILY 01/13/19 01/03/21 History XL] Mirabegron [Myrbetriq] 25 mg PO AC-SUPPER 01/13/19 01/03/21 History Atorvastatin [Lipitor] 40 mg PO HS #30 tab 01/15/19 01/03/21 Rx Fenofibrate [Lofibra] 160 mg PO DAILY #30 tab 01/15/19 01/03/21 Rx Melatonin 3 mg PO HS tablet 01/15/19 01/03/21 Rx rOPINIRole HCL [Requip] 0.25 mg PO TID #21 tablet 07/27/19 01/03/21 Rx lisinopriL [Zestril] 5 mg PO DAILY 11/08/20 01/03/21 History Aspirin EC [Ecotrin Low Dose] 81 mg PO DAILY 01/03/21 01/03/21 History Insulin Aspart [NovoLOG Flexpen] See Protocol SQ AC-TID 01/03/21 01/03/21 History Insulin Detemir [Levemir Flextouch See Protocol SQ DAILY 01/03/21 01/03/21 History Pen] Nitroglycerin Sl Tabs [Nitrostat] 0.4 mg SL Q5M PRN 01/03/21 01/03/21 History Allergies Allergy/AdvReac Type Severity Reaction Status Date / Time No Known Allergies Allergy Verified 01/03/21 14:12 Physical Exam Vitals: Vital Signs Temp Pulse Pulse Resp BP BP Pulse Ox 01/04/21 04:00 98.1 F 81 18 102/43 96 01/03/21 21:14 89 18 114/50 96 01/03/21 16:51 87 16 104/61 96 01/03/21 12:53 97.7 F 95 18 113/59 97 Intake and Output 01/03/21 01/03/21 01/04/21 14:59 22:59 06:59 Other: Weight 52.163 kg 52.163 kg Results 01/03/21 13:38 01/03/21 13:38 Cardiac Enzymes 01/03/21 01/03/21 01/03/21 Range/Units 13:38 13:38 17:08 AST 24 (14-36) U/L Troponin I <0.012 <0.012 (0.000-0.034) ng/mL 01/03/21 Range/Units 19:28 AST (14-36) U/L Troponin I <0.012 (0.000-0.034) ng/mL Coagulation 01/03/21 Range/Units 13:38 PT 10.7 (9.0-12.0) sec APTT 22.9 (22.0-30.0) sec CBC 01/03/21 Range/Units 13:38 WBC 12.5 H (3.8-10.6) k/uL RBC 4.92 (3.80-5.40) m/uL Hgb 14.0 (11.4-16.0) gm/dL Hct 43.3 (34.0-46.0) % Plt Count 246 (150-450) k/uL Comprehensive Metabolic Panel 01/03/21 Range/Units 13:38 Sodium 134 L (137-145) mmol/L Potassium 4.4 (3.5-5.1) mmol/L Chloride 104 (98-107) mmol/L Carbon Dioxide 22 (22-30) mmol/L BUN 19 H (7-17) mg/dL Creatinine 0.64 (0.52-1.04) mg/dL Glucose 227 H (74-99) mg/dL Calcium 9.6 (8.4-10.2) mg/dL AST 24 (14-36) U/L ALT 17 (4-34) U/L Alkaline Phosphatase 110 (38-126) U/L Total Protein 6.3 (6.3-8.2) g/dL Albumin 3.8 (3.5-5.0) g/dL Current Medications Generic Name Dose Route Start Last Admin Trade Name Freq PRN Reason Stop Dose Admin Hydrocodone Bitart/Acetaminophen 1 each 01/03/21 15:21 01/04/21 01:12 Hydrocodone/Apap 10-325mg 1 Each Tab PO 1 each TID PRN Administration Pain Alprazolam 0.25 mg 01/03/21 15:21 Alprazolam 0.25 Mg Tab PO AC-BID PRN Anxiety Aspirin 325 mg 01/04/21 09:00 Aspirin 325 Mg Tab PO DAILY REY Atorvastatin Calcium 40 mg 01/03/21 21:00 01/03/21 21:08 Atorvastatin 40 Mg Tab PO 40 mg HS REY Administration Budesonide/Formoterol Fumarate 2 puff 01/03/21 20:00 01/03/21 21:04 Symbicort 160-4.5 Mcg Inhaler INHALATION Not Given RT-BID REY Fenofibrate 160 mg 01/04/21 09:00 Fenofibrate 160 Mg Tab PO DAILY REY Lisinopril 5 mg 01/04/21 09:00 Lisinopril 5 Mg Tab PO DAILY REY Loperamide HCl 2 mg 01/03/21 15:21 Loperamide 2 Mg Cap PO TID PRN Diarrhea Melatonin 3 mg 01/03/21 21:00 01/03/21 21:08 Melatonin 3 Mg Tablet PO 3 mg HS REY Administration Metoprolol Succinate 25 mg 01/04/21 09:00 Metoprolol Succinate (Er) 25 Mg Tab.Er.24h PO DAILY REY Nitroglycerin 0.4 mg 01/03/21 14:55 Nitroglycerin Sl Tabs 0.4 Mg Tab SUBLINGUAL Q5M PRN Chest Pain Patient's Own ( 25 mg 01/03/21 17:30 01/03/21 15:44 Mirabegron [ PO Not Given Myrbetriq] 25 Mg Tab AC-SUPPER REY .Er.24h) Pantoprazole Sodium 40 mg 01/04/21 07:30 Pantoprazole 40 Mg Tablet PO AC-BRKFST REY Rivaroxaban 2.5 mg 01/03/21 21:00 01/03/21 21:08 Rivaroxaban 2.5 Mg Tablet PO 2.5 mg BID REY Administration Protocol Ropinirole HCl 0.25 mg 01/03/21 16:00 01/03/21 22:00 Ropinirole Hcl 0.25 Mg Tab PO 0.25 mg TID REY Administration Trazodone HCl 50 mg 01/03/21 21:00 01/04/21 04:42 Trazodone Hcl 50 Mg Tab PO 50 mg HS REY Administration Intake and Output 01/03/21 01/03/21 01/04/21 14:59 22:59 06:59 Other: Weight 52.163 kg 52.163 kg Patient Weight 01/04/21 06:59 Weight 52.163 kg 01/03/21 13:38 01/03/21 13:38
--- NOTE | 2021-01-04 12:33 | ECHOF ---
Referral Reason:LV function MEASUREMENTS -------- HEIGHT: 157.5 cm WEIGHT: 52.2 kg BP: RVIDd: 2.9 cm (< 3.3) IVSd: 1.1 cm (0.6 - 1.1) LVIDd: 3.4 cm (3.9 - 5.3) LVPWd: 1.0 cm (0.6 - 1.1) IVSs: 1.2 cm LVIDs: 2.2 cm LVPWs: 1.5 cm LA Diam: 3.0 cm (2.7 - 3.8) Ao Diam: 2.6 cm (2.0 - 3.7) AV Cusp: 1.5 cm (1.5 - 2.6) LA Diam: 3.0 cm (2.7 - 3.8) MV EXCURSION: 19.892 mm (> 18.000) MV EF SLOPE: 78 mm/s (70 - 150) EPSS: 1.0 cm MV E Raul: 0.47 m/s MV DecT: 205 ms MV A Raul: 0.82 m/s MV E/A Ratio: 0.58 RAP: 5.00 mmHg RVSP: 15.04 mmHg FINDINGS -------- Sinus rhythm. This was a technically adequate study. LV size, wall thickness and systolic function are normal, with an EF greater than 55%. The left spenser tricular size is normal. The right ventricle is normal in size. The left atrial size is normal. The right atrial size is normal. There is mild aortic valve sclerosis. There is no evidence of aortic regurgitation. The mitral valve leaflets are mildly thickened. Mild mitral regurgitation is present. Mild tricuspid regurgitation present. Right ventricular systolic pressure is normal at < 35 mmHg. There is no pulmonic regurgitation present. There is no pericardial effusion. CONCLUSIONS -------- 1. LV size, wall thickness and systolic function are normal, with an EF greater than 55%. 2. The left ventricular size is normal. 3. The right ventricle is normal in size. 4. The left atrial size is normal. 5. The right atrial size is normal. 6. There is mild aortic valve sclerosis. 7. The mitral valve leaflets are mildly thickened. 8. Mild mitral regurgitation is present. 9. Mild tricuspid regurgitation present. 10. There is no pulmonic regurgitation present. 11. There is no pericardial effusion. AUTOMOTIVE SERVICE ASSISTANT: Yola Wheat RDCS
--- NOTE | 2021-01-04 12:37 | NM ---
EXAMINATION TYPE: NM stress lexiscan cardiolite DATE OF EXAM: 01/04/2021 COMPARISON: Prior exam 08/28/2018 HISTORY: Chest pain TECHNIQUE: After the intravenous administration of 9.4 mCi Tc 99m Sestamibi - Cardiolite resting SPE CT images acquired 60 minutes post injection. The patient received 0.4mg Lexiscan, 25.5 mCi Tc 99m Sestamibi - Stress images obtained [address] injection FINDINGS: Review of stress and rest SPECT images demonstrates no distinct perfusion abnormality. Gated analysi s shows normal wall motion with an estimated left ventricular ejection fraction of 71 %. IMPRESSION: No scintigraphic evidence for reversible ischemia. Consider echocardiographic correlation for elevate d ejection fraction as noted on prior exam) exam.
--- NOTE | 2021-01-04 13:47 | P.DS ---
<Og Schaffer - Last Filed: 01/04/21 13:41> Providers Expected date of discharge: 01/04/21 Hospital Course: Discharge Diagnosis: Atypical chest pain accompanied by dizziness, acute coronary event ruled out History of CAD with previous ME and stent placement Paroxysmal atrial fibrillation Insulin-dependent diabetes mellitus Hypertension Hyperlipidemia Fibromyalgia Hospital Course: Patient is a 70-year-old female with a past medical history is CAD with previous ME and stent placement, paroxysmal atrial fibrillation on anticoagulation with Xarelto, insulin-dependent diabetes mellitus, hypertension, hyperlipidemia, and fibromyalgia. She presented to the emergency department on 01/03/21 with a chief complaint of chest pain and dizziness. Patient was admitted under our services with consultation to cardiology and underwent a full cardiac workup. Troponins were trended and negative at less than 0.0123 draws. EKG showing normal sinus rhythm at 90 bpm with no noted T wave or ST abnormality showing no signs of acute ischemia. Lexiscan stress test showing no scintigraphic evidence for reversible ischemia. Echocardiogram showing a normal EF greater than 55% with no significant valvular abnormalities. An acute coronary event was ruled out. Cardiology recommending patient follow-up with their office in 2 weeks. Patient is medically stable for discharge home at this time. Physical examination: Patient seen and examined at bedside. Patient reports she has had no further episodes of dizziness or chest pain since arrival to our facility. Patient currently denies having any headache, lightheadedness, dizziness, chest pain, palpitations, shortness of breath, or experiencing any numbness/tingling/weakness in her extremities. Vital signs reviewed and stable. General: Nontoxic, no distress and appears stated age. Derm: Skin warm and dry, normal coloration for ethnicity. Head: Atraumatic, normocephalic and symmetric. Eyes: EOMs intact, no lid lag, and anicteric sclera Mouth: no lip lesions, mucus membranes moist Cardiovascular: regular rate and rhythm with normal S1S2, no murmur, positive posterior tibial pulses bilaterally, and cap refill < 2 seconds. Lungs: Respirations even, regular, and unlabored on room air. Lungs CTA bilaterally, no rhonchi, no rales, no wheezing, and no accessory muscle usage. Abdominal: soft, nontender to palpation, no guarding, no appreciable organomegaly Ext: ROM intact. No gross muscle atrophy, no edema, no contractures Neuro: Speech clear, face symmetrical and CN II-XII grossly intact with no noted focal neuro deficits Psych: Alert and oriented to person, place, time, and situation. Appropriate and pleasant affect. A total of 45 minutes of time were spent preparing this complex discharge summary. Patient Condition at Discharge: Fair Plan - Discharge Summary New Discharge Prescriptions: Continue ALPRAZolam 0.25 mg PO AC-BID PRN PRN Reason: Anxiety Pantoprazole [Protonix] 40 mg PO DAILY Budesonide-Formot 160-4.5 Mcg [Symbicort 160-4.5 Mcg Inhaler] 2 puff INHALATION RT-BID HYDROcodone/APAP 10-325MG [[place] 10-325] 1 tab PO TID PRN PRN Reason: Pain traZODone HCL 50 mg PO HS Metoprolol Succinate (ER) [Toprol XL] 25 mg PO DAILY Loperamide [Imodium] 2 mg PO TID PRN PRN Reason: Diarrhea Mirabegron [Myrbetriq] 25 mg PO AC-SUPPER Atorvastatin [Lipitor] 40 mg PO HS #30 tab Fenofibrate [Lofibra] 160 mg PO DAILY #30 tab Melatonin 3 mg PO HS tablet rOPINIRole HCL [Requip] 0.25 mg PO TID #21 tablet Aspirin EC [Ecotrin Low Dose] 81 mg PO DAILY Nitroglycerin Sl Tabs [Nitrostat] 0.4 mg SL Q5M PRN PRN Reason: Chest Pain lisinopriL [Zestril] 5 mg PO DAILY Insulin Detemir [Levemir Flextouch Pen] See Protocol SQ DAILY Insulin Aspart [NovoLOG Flexpen] See Protocol SQ AC-TID Discharge Medication List ALPRAZolam 0.25 mg PO AC-BID PRN 11/03/15 [History] Pantoprazole [Protonix] 40 mg PO DAILY 01/14/17 [History] Budesonide-Formot 160-4.5 Mcg [Symbicort 160-4.5 Mcg Inhaler] 2 puff INHALATION RT-BID 08/31/17 [History] HYDROcodone/APAP 10-325MG [[place] 10-325] 1 tab PO TID PRN 08/19/18 [History] traZODone HCL 50 mg PO HS 09/07/18 [History] Loperamide [Imodium] 2 mg PO TID PRN 01/13/19 [History] Metoprolol Succinate (ER) [Toprol XL] 25 mg PO DAILY 01/13/19 [History] Mirabegron [Myrbetriq] 25 mg PO AC-SUPPER 01/13/19 [History] Atorvastatin [Lipitor] 40 mg PO HS #30 tab 01/15/19 [Rx] Fenofibrate [Lofibra] 160 mg PO DAILY #30 tab 01/15/19 [Rx] Melatonin 3 mg PO HS tablet 01/15/19 [Rx] rOPINIRole HCL [Requip] 0.25 mg PO TID #21 tablet 07/27/19 [Rx] lisinopriL [Zestril] 5 mg PO DAILY 11/08/20 [History] Aspirin EC [Ecotrin Low Dose] 81 mg PO DAILY 01/03/21 [History] Insulin Aspart [NovoLOG Flexpen] See Protocol SQ AC-TID 01/03/21 [History] Insulin Detemir [Levemir Flextouch Pen] See Protocol SQ DAILY 01/03/21 [History] Nitroglycerin Sl Tabs [Nitrostat] 0.4 mg SL Q5M PRN 01/03/21 [History] Follow up Appointment(s)/Referral(s): Hanh Veliz MD [STAFF PHYSICIAN] - 01/11/21 10:00 am Nick Brock MD [Primary Care Provider] - 1-2 days Patient Instructions/Handouts: Chest Pain (GEN), Dizziness (GEN) Activity/Diet/Wound Care/Special Instructions: Activity: As tolerated. Take breaks as needed. Diet: Heart healthy and carb consistent diet. Avoid salts, or foods with hidden salts such as canned or boxed foods and frozen dinners. Extra salt makes your heart work harder and traps the fluid in your body for longer. Special Instructions: Take all of your medications as directed, NEVER skip a dose. And remember to keep all of your doctor's appointments and follow-up as needed. Thank you for allowing us to participate in your care, it was truly a pleasure having you for our patient!!! Discharge Disposition: HOME SELF-CARE <Rosas Son - Last Filed: 01/04/21 18:47> Providers Date of admission: 01/03/21 14:55 Attending physician: Annemarie Hernandez Consults: 01/03/21 14:55 Consult Physician Urgent Consulting Provider: Hanh Veliz Consult Reason/Comments: chest pain Do you want consulting provider notified?: Yes Primary care physician: Nick Brock MD Hospital Course: I reviewed the documentation as provided by the ERAN above, who is the original author of this note. I agree with the documented assessment and plan, with the following changes: None
--- NOTE | 2021-01-04 14:42 | EST ---
EXERCISE STRESS LEXISCAN STRESS TEST: AGE: 70 SEX: F HT: 5'2" WT: 114 lbs. PROTOCOL: Lexiscan STAGE: NA DURATION OF EXERCISE: NA HEART RATE REST: 84 BLOOD PRESSURE REST: 112/45 MAXIMUM HEART RATE ACHIEVED: 109 MAXIMUM BLOOD PRESSURE: 125/59 85% MPHR: 126 100% MPHR: 148 METS: NA INDICATIONS: NA CLINICAL INFORMATION: Baseline EKG revealed normal sinus rhythm without significant ST-T changes. There was some baseline artifact noted. There is T-wave inversion in leads V1 and V2. With Lexiscan administration, heart rate changed from 84 to 100 beats per minute. Blood pressure changed from 112/45 to 120/82. Patient received aminophylline because of some symptoms. EKG remained unremarkable with minor resting EKG changes. FINAL IMPRESSION: 1. By EKG criteria, this is an unremarkable stress test with minor resting EKG changes. 2. The nuclear scan results, which are more pertinent, will be reported by the radiologist. MMSCOT / BRITTONN: [id number] /
[2021-01-04 17:56] LABS: Chol/HDL Ratio 4.02 Ratio; HDL Cholesterol 29.1 mg/dL (40.00-60.00); LDL Cholesterol,Calculated 54.1 mg/dL (0.0-131.0); VLDL Calculation 33.8 mg/dL (5.00-40.00)
== END 2021-01-04 15:17 | disposition home or self-care (01) ==
LOC: EC 12:48 → 6NMEDSUR 14:55
PROVIDERS: ADMIT Internal Medicine; ATTEND Internal Medicine
DX: R07.89 Other chest pain (principal); R42 Dizziness and giddiness; R61 Generalized hyperhidrosis; I25.10 Atherosclerotic heart disease of native coronary artery without angina pectoris; I11.9 Hypertensive heart disease without heart failure; J44.9 Chronic obstructive pulmonary disease, unspecified; I48.0 Paroxysmal atrial fibrillation; I08.3 Combined rheumatic disorders of mitral, aortic and tricuspid valves; R11.0 Nausea; E11.9 Type 2 diabetes mellitus without complications; I25.2 Old myocardial infarction; K21.9 Gastro-esophageal reflux disease without esophagitis; M79.7 Fibromyalgia; G25.81 Restless legs syndrome; D69.3 Immune thrombocytopenic purpura; M51.26 Other intervertebral disc displacement, lumbar region; F41.1 Generalized anxiety disorder; E78.5 Hyperlipidemia, unspecified; K44.9 Diaphragmatic hernia without obstruction or gangrene; K58.9 Irritable bowel syndrome, unspecified; Z20.822 Contact with and (suspected) exposure to COVID-19; Z79.51 Long term (current) use of inhaled steroids; Z79.01 Long term (current) use of anticoagulants; Z79.82 Long term (current) use of aspirin; Z79.899 Other long term (current) drug therapy; Z79.4 Long term (current) use of insulin; Z87.11 Personal history of peptic ulcer disease; Z85.118 Personal history of other malignant neoplasm of bronchus and lung; Z90.49 Acquired absence of other specified parts of digestive tract; Z90.710 Acquired absence of both cervix and uterus; Z90.2 Acquired absence of lung [part of]; Z87.891 Personal history of nicotine dependence; Z87.19 Personal history of other diseases of the digestive system; Z95.5 Presence of coronary angioplasty implant and graft; Z98.890 Other specified postprocedural states; Z80.9 Family history of malignant neoplasm, unspecified; Z83.3 Family history of diabetes mellitus; Z82.49 Family history of ischemic heart disease and other diseases of the circulatory system
CPT/HCPCS: 96360; 99285; 36415; 93005; 93017; 93306; 80061; 80053; 83735; 84484; 85025; 85610; 85730; 87635; 71046; 78452; G0378 ×2; A9500; J2785

== ENCOUNTER → 2021-06-03 | Outpatient (CLI) | payer MEDICARE, OTHER ==
--- NOTE | 2021-06-03 22:48 | PE ---
EXAMINATION TYPE: PET CT fusion skull to thigh DATE OF EXAM: 06/03/2021 COMPARISON: Most recent CT May 11, 2021 and older studies HISTORY: Lung cancer progress study TECHNIQUE: Following the intravenous administration of 8.8 mCi of F-18 FDG, whole body images are pe rformed from the skull base to the midthigh. Images are reviewed on the computer in the coronal, axi al, and sagittal planes. Reconstructed rotating images are created on independent workstation and re viewed on the computer. A localization and attenuation correction CT is performed in conjunction wi th the PET scan. Blood glucose level equals 72. SCAN: Subsequent Scan FINDINGS: SKULL BASE AND NECK: No new areas of abnormal hypermetabolic uptake. CHEST, MEDIASTINUM, AND HILAR REGION: Posttreatment changes left upper lung redemonstrated. No new ar eas of abnormal hypermetabolic uptake. Scattered tiny nodules particularly left lower lung remain pre sent and should be followed. ABDOMEN AND PELVIS: No new areas of abnormal hypermetabolic uptake. Normal excretion. OSSEOUS STRUCTURES: No new areas of abnormal hypermetabolic uptake. OTHER CT: Moderate calcified plaque bilateral carotid bulb level. There is 4.0 cm thin-walled cyst laterally left kidney axial image 127. Uterus surgically absent or m arkedly atrophic. IMPRESSION: No new areas of abnormal hypermetabolic uptake. Tiny lung nodules seen best left lower tashi ng remain present. Short-term follow-up CT and/or PET CT in 6 months time is advised to reassess.
== END | disposition home or self-care (01) ==
LOC: RADPETMAIN 14:46
PROVIDERS: ATTEND Internal Medicine Hematology & Oncology
DX: C34.90 Malignant neoplasm of unspecified part of unspecified bronchus or lung (principal)
CPT/HCPCS: 78815; A9552

== ENCOUNTER → 2021-09-14 | Outpatient (CLI) | payer MEDICARE, OTHER ==
[2021-09-14 18:10] LABS: HCT 44.6 % (37.2-46.3); HGB 14.2 g/dL (12.0-15.0); MCH 28.2 pg (27.0-32.0); MCHC 31.8 g/dL (32.0-37.0); MCV 88.5 fL (80.0-97.0); Mean Platelet Volume 11.9 fL (9.5-12.2); NRBC Per 100 WBC 0 /100 WBCS (0.0-0.0); Platelet Count 284 X 10*3/uL (140-440); RBC 5.04 X 10*6/uL (4.10-5.20)
[2021-09-14 18:22] LABS: African American GFR (CKD) 106.9 (60.0-200.0); Anion Gap 7.9 mmol/L (10.00-18.00); Blood Urea Nitrogen 12.6 mg/dL (9.0-27.0); Carbon Dioxide 26.5 mmol/L (20.0-27.5); Non-African American GFR(CKD) 92.2 (60.0-200.0); Potassium 4.6 mmol/L (3.5-5.5)
== END | disposition home or self-care (01) ==
LOC: LABPAT 14:19
PROVIDERS: ATTEND Internal Medicine Interventional Cardiology
DX: Z01.812 Encounter for preprocedural laboratory examination (principal); R06.02 Shortness of breath
CPT/HCPCS: 80051; 82565; 84520; 85027

== ENCOUNTER → 2021-09-15 | Day surgery (SDC) | payer MEDICARE, OTHER ==
[~2021-09-15] MED LIST changes: +ALPRAZolam 0.25 MG TAB PO PRN; +ALPRAZolam 0.5 MG TAB PO PRN; +ASPIRIN 325 MG TAB PO ONE; +ASPIRIN 81 MG ONE; +ASPIRIN 81 MG PO SCH; +ATORVASTATIN 40 MG TAB PO SCH; +ATORVASTATIN 80 MG TAB PO ONE; -DEXAMETHASONE SOD PHOSPHATE 10 MG/ML 1 ML VIAL IV ONE; +FENOFIBRATE 160 MG TAB PO SCH; +HEPARIN SODIUM 1,000 UN/ML (10ML VL) IV ONE; +HEPARIN SODIUM 1,000 UN/ML (10ML VL) ONE; +IOPAMIDOL-370 125ML BTL INJ ONE; +ISOSORBIDE MONONITRATE ER 30 MG TAB.ER.24H PO SCH; +LIDOCAINE 1% INJ 10MG/ML (5 ML VIAL-PF) SQ ONE; +LOPERAMIDE 2 MG CAP PO PRN; +MELATONIN 3 MG TABLET PO SCH; +METOPROLOL SUCCINATE (ER) 25 MG TAB.ER.24H PO SCH; -MIDAZOLAM 2 MG/2 ML VIAL IV PRN; -MORPHINE SULFATE 4 MG/ML SYRINGE IV PRN; +Mirabegron [Myrbetriq] 25 MG Tab.Er.24h PO SCH; +NITROGLYCERIN SL TABS 0.4 MG TAB SUBLINGUAL PRN; -ONDANSETRON 4 MG/2 ML VIAL IVP ONE; +PANTOPRAZOLE 40 MG TABLET PO SCH; -Pre Op ABX Message 1 EACH MISC MISCELLANE ONE; +RX INFO: IV CONTRAST WAS GIVEN 1 EACH MISC MISCELLANE PRN; +SODIUM CHLORIDE 0.9% 1,000 ML IV ONE; +SODIUM CHLORIDE 0.9% 1,000 ML IV SCH; +SODIUM CHLORIDE 0.9% 1,000 ML in EMPTY BAG 1 BAG IV SCH; +SYMBICORT 160-4.5 MCG INHALER INHALATION SCH; +VERAPAMIL 2.5 MG/ML 2 ML AMP ONE; +VERAPAMIL SYRINGE (5 MG/10 ML) INTRAARTER ONE; +fentaNYL (PF) 50 MCG/ML 2 ML AMP IVP ONE; +fentaNYL (PF) 50 MCG/ML 2 ML AMP ONE; +lisinopriL 5 MG TAB PO SCH; +methocarbamoL 750 MG TAB PO PRN; +traZODone HCL 50 MG TAB PO SCH
[2021-09-15 06:28] VITALS: TEMP 97.5
[2021-09-15 06:31] LABS: Glucose,Whole Blood 198 mg/dL (70-110)
[2021-09-15 06:42] LABS: Basophils # (A) 0.1 k/uL (0-0.2); Basophils % (A) 1 %; Eosinophils # (A) 0.4 k/uL (0-0.7); Eosinophils % (A) 4 %; Lymphocytes # (A) 2.1 k/uL (1.0-4.8); Lymphocytes % (A) 18 %; MCHC 31.9 g/dL (31.0-37.0); Mean Platelet Volume 8.3; Monocytes # (A) 0.9 k/uL (0-1.0); Monocytes % (A) 8 %; Neutrophils % (A) 69 %; Platelet Count 253 k/uL (150-450); RBC 5.16 m/uL (3.80-5.40); RDW 13.7 % (11.5-15.5); WBC 11.6 k/uL (3.8-10.6)
[2021-09-15 06:54] LABS: African American GFR (CKD) >90 (>60 ml/min/1.73 sqM); Anion Gap 9 mmol/L; Blood Urea Nitrogen 11 mg/dL (7-17); Calcium 9.6 mg/dL (8.4-10.2); Carbon Dioxide 26 mmol/L (22-30); Chloride 101 mmol/L (98-107); Glucose 206 mg/dL (74-99); Non-African American GFR(CKD) >90 (>60 ml/min/1.73 sqM); Potassium 4.2 mmol/L (3.5-5.1); Sodium 136 mmol/L (137-145)
[2021-09-15] MEDS: MIDAZOLAM 2 MG/2 ML VIAL IV ONE ×2 (07:37→07:52)
--- NOTE | 2021-09-15 08:37 | P.CARDCATH ---
Date of Procedure: 09/15/21 Description of Procedure: Cardiac Catheterization: The patient is a 70-year-old female with a known history of CAD, post stenting of the LAD in 2017, history of hypertension, hyperlipidemia and diabetes mellitus who has been complaining of episode of chest discomfort and progressive dyspnea. She had an abnormal MPI. Recommendations were made regarding cardiac catheterization, the risks and the complications were discussed with the patient who is in full understanding and agreement. Procedure Description: Patient was brought to cardiac cath lab manager in fasting semi-sedated state after receiving Fentanyl and Benadryl achieiving moderate conscious sedated state. Using Xylocaine Anesthesia and Seldinger technique, a 6-Beninese sheath was introduced in the right radial artery . Subsequently, selective coronary angiography performed using a 5-Beninese 3.5 bend Romel catheter. Attempt to selectively cannulate the ostium of the right coronary artery were done using a 5-Beninese 3.5, 4 and 5 bend Romel, a Santi posterior takeoff and a 0.75 AL catheter. Selective cannulation unsuccessful. Multiple views of the coronary artery including hemiaxial views were obtained. The right Romel catheter was used to cross the aortic valve and LVEDP was calculated. Following that, catheter and sheath were removed. Hemostasis was obtained with deployment of TR band . There was no immediate complication. Patient was returned to room in stable condition. Of note, the patient received a total of 3000 units of intravenous heparin as well as intra-arterial verapamil. There was no immediate complications. Findings: Fluoroscopy: Calcification of the coronary arteries were noted. Left main: This is a large size vessel, bifurcating LAD and left circumflex, left main has no high-grade stenosis LAD: This is a size vessel giving rise to a large diagonal branch, the proximal stented segment is patent with 10-20% in-stent restenosis. Left circumflex: This is a nondominant vessel, giving rise to 2 obtuse marginal branch did have mild intimal disease with no high-grade stenosis. RCA: This vessel is chronically occluded at the ostium with no antegrade flow Collaterals there is good collaterals from the left groin system toward the right coronary artery all the way to the ostium. Left Ventriculogram: Was not performed Hemodynamics: There was no gradient across the aortic valve, LVEDP 10 mmHg Conclusion: 1. Chronically occluded ostium RCA with collateral from the left system 2. Patent stent in the LAD with mild intimal disease 3. 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 The findings and recommendations were discussed with the patient and her family, they are in full understanding. Duration of sedation is 44 minutes.
[2021-09-15 11:28] VITALS: RESP 16
[2021-09-15 15:23] VITALS: BP 128/67; PULSE 67
== END | disposition home or self-care (01) ==
LOC: CATHCVL 05:39
PROVIDERS: ATTEND Internal Medicine Interventional Cardiology
DX: I25.10 Atherosclerotic heart disease of native coronary artery without angina pectoris (principal)
CPT/HCPCS: 93458; 80048; 85025; 87635; C1887; C1769 ×2; C1894; J2250; J2001; J3010; J1644; Q9967

== ENCOUNTER 2021-11-19 19:42 | Emergency (ER) | payer MEDICARE, OTHER ==
--- NOTE | 2021-11-19 20:12 | XR ---
EXAMINATION TYPE: XR KUB DATE OF EXAM: 11/19/2021 COMPARISON: [id number] HISTORY: Abdominal pain TECHNIQUE: FINDINGS: There is no sign of intestinal obstruction or pneumoperitoneum. Fecal pattern is normal. No evidence of a mass. The lung bases are clear of consolidation. No calcifications seen over the kidne ys. IMPRESSION: Nonacute abdomen.
[2021-11-19 20:42] LABS: Basophils # (A) 0.1 k/uL (0-0.2); Basophils % (A) 1 %; Eosinophils # (A) 0.2 k/uL (0-0.7); Eosinophils % (A) 2 %; HCT 44.2 % (34.0-46.0); HGB 14.3 gm/dL (11.4-16.0); Lymphocytes # (A) 2.8 k/uL (1.0-4.8); Lymphocytes % (A) 28 %; MCH 29.2 pg (25.0-35.0); MCHC 32.3 g/dL (31.0-37.0); MCV 90.4 fL (80.0-100.0); Monocytes # (A) 0.9 k/uL (0-1.0); Monocytes % (A) 9 %; Neutrophils # (A) 5.8 k/uL (1.3-7.7); Neutrophils % (A) 59 %; Platelet Count 308 k/uL (150-450); RBC 4.89 m/uL (3.80-5.40); RDW 13.7 % (11.5-15.5); WBC 9.9 k/uL (3.8-10.6)
[2021-11-19] MEDS ORDERED: SODIUM CHLORIDE 0.9% 1,000 ML IV STA (20:59)
[2021-11-19] MEDS ORDERED: MORPHINE SULFATE 4 MG/ML SYRINGE IVP STA ×2 (20:59→23:09)
[2021-11-19] MEDS ORDERED: ONDANSETRON 4 MG/2 ML VIAL IVP STA (20:59)
[2021-11-19 21:01] LABS: Appearance,Urine Cloudy (Clear); Bilirubin,Urine Negative (Negative); Blood,Urine Trace (Negative); Color,Urine Yellow; Glucose,Urine (UA) 3+ (Negative); Ketones,Urine Trace (Negative); PH, Urine 5.5 (5.0-8.0); Protein,Urine Trace (Negative); Specific Gravity,Urine 1.021 (1.001-1.035)
[2021-11-19 21:02] LABS: Bacteria,Urine Many /hpf; Leukocyte Esterase,Urine Large (Negative); Nitrite,Urine Negative (Negative); Squamous Epithelial Cell,Urine 1 /hpf (0-4); Urobilinogen,Urine <2.0 mg/dL (<2.0); WBC,Urine 76 /hpf (0-5)
[2021-11-19 21:35] LABS: ALT 14 U/L (4-34); AST 15 U/L (14-36); African American GFR (CKD) >90 (>60 ml/min/1.73 sqM); Albumin 3.8 g/dL (3.5-5.0); Alkaline Phosphatase 103 U/L (38-126); Amylase 38 U/L (30-110); Anion Gap 10 mmol/L; Blood Urea Nitrogen 16 mg/dL (7-17); Calcium 9.7 mg/dL (8.4-10.2); Carbon Dioxide 26 mmol/L (22-30); Chloride 103 mmol/L (98-107); Glucose 99 mg/dL (74-99); Lipase 133 U/L (23-300); Non-African American GFR(CKD) >90 (>60 ml/min/1.73 sqM); Potassium 3.9 mmol/L (3.5-5.1); Sodium 139 mmol/L (137-145); Total Bilirubin 0.2 mg/dL (0.2-1.3); Total Protein 6.1 g/dL (6.3-8.2)
--- NOTE | 2021-11-19 23:14 | CT ---
EXAMINATION TYPE: CT abdomen pelvis w con DATE OF EXAM: 11/19/2021 COMPARISON: 06/03/2021 HISTORY: LLQ pain. prior on PACS. Sx history of bowel resection, hernia repair, GB, and Hyst. CT DLP: 587.9 mGycm Automated exposure control for dose reduction was used. CONTRAST: Performed with IV Contrast, patient injected with 100ml mL of Isovue 300. Images obtained from the diaphragm to the floor of the pelvis with the IV contrast. The lung bases are clear of infiltrate. Heart size is normal. No pericardial effusion. No pleural eff usion. Liver and spleen are intact. There is no pancreatic mass. The bile ducts are not dilated. The stomach is intact. There is no adrenal mass. There is some mild emphysematous changes at the lung bases. Kidneys have no rmal size. There is normal contrast opacification of the kidneys. No hydronephrosis. There is 3.5 cm cortical cyst lateral left kidney. No retroperitoneal adenopathy. The bladder distends smoothly. No i nguinal hernia. No free fluid in the pelvis. No sign of a pelvic mass. There are surgical clips in th e pelvis. I see no dilated bowel. No intestinal wall thickening. There is hysterectomy. No mesenteric edema. No ascites or free air. The cecum is low in the pelvis. Appendix not clearly see n. No sign of thickened appendix. The lumbar vertebrae have normal alignment. No compression fracture. There is narrowing at L4-5 and L 5-S1 disc spaces with spur formation. The bony pelvis is intact. The hip joints are intact. Sacroilia c joints appear normal. IMPRESSION: Previous surgery. No acute abnormality in the abdomen and pelvis. Appendix not seen.
[2021-11-19] MEDS ORDERED: cefTRIAXone IN SWFI 1,000 MG/10 ML SYRINGE IVP STA (23:27)
[2021-11-19] MEDS ORDERED: methocarbamoL 750 MG TAB PO STA (23:27)
--- NOTE | 2021-11-19 23:33 | ED ---
General Adult HPI - General Chief complaint: Abdominal Pain Stated complaint: Abdominal Pain Time Seen by Provider: 11/19/21 20:32 Source: patient, RN notes reviewed, old records reviewed Mode of arrival: ambulatory Limitations: no limitations - History of Present Illness Initial comments: Patient is a 71-year-old female who presents emergency Department complaining of chronic abdominal pain. He has been acutely worsened over the last week or so. Does self cath. Denies any change in stooling. Denies nausea or vomiting. Denies chest pain or shortness of breath. His history of lung cancer status post lobectomy. No other acute complaints at this time. Family as well as patient concerned that she may have an abdominal infection. Presents for further evaluation. Denies diarrhea. Denies sick contacts. Denies blood in her urine. Denies pain which appears. His no other acute complaints at this time. States she is having some mild increased pain when she cath. Feels like "my bladder is inflamed." He points to the left lower quadrant primarily when asked where the pain is at. Describes a sharp, achy. Does not radiate. - Related Data Home Medications Medication Instructions Recorded Confirmed ALPRAZolam 0.25 mg PO AC-BID PRN 11/03/15 09/15/21 Pantoprazole [Protonix] 40 mg PO DAILY 01/14/17 09/15/21 Budesonide-Formot 160-4.5 Mcg 2 puff INHALATION RT-BID 08/31/17 09/15/21 [Symbicort 160-4.5 Mcg Inhaler] HYDROcodone/APAP 10-325MG [Colbert 1 tab PO TID PRN 08/19/18 09/15/21 10-325] traZODone HCL 50 mg PO HS 09/07/18 09/15/21 Loperamide [Imodium] 2 mg PO TID PRN 01/13/19 09/15/21 Metoprolol Succinate (ER) [Toprol 25 mg PO DAILY 01/13/19 09/15/21 XL] Mirabegron [Myrbetriq] 25 mg PO AC-SUPPER 01/13/19 09/15/21 lisinopriL [Zestril] 5 mg PO DAILY 11/08/20 09/15/21 Aspirin EC [Ecotrin Low Dose] 81 mg PO DAILY 01/03/21 09/15/21 Insulin Aspart [NovoLOG Flexpen] See Protocol SQ AC-TID 01/03/21 09/15/21 Insulin Detemir [Levemir Flextouch See Protocol SQ DAILY 01/03/21 09/15/21 Pen] Nitroglycerin Sl Tabs [Nitrostat] 0.4 mg SL Q5M PRN 01/03/21 09/15/21 Previous Rx's Medication Instructions Recorded Atorvastatin [Lipitor] 40 mg PO HS #30 tab 01/15/19 Fenofibrate [Lofibra] 160 mg PO DAILY #30 tab 01/15/19 Melatonin 3 mg PO HS tablet 01/15/19 rOPINIRole HCL [Requip] 0.25 mg PO TID #21 tablet 07/27/19 HYDROcodone/APAP 5-325MG [Colbert 1 each PO Q6HR PRN 3 Days #12 tab 06/12/21 5-325] Lidocaine 5% Patch [Lidoderm 5% 1 patch TOPICAL DAILY PRN 7 Days 06/12/21 Patch] #7 patch methocarbamoL [Robaxin-750] 750 mg PO BID PRN 7 Days #14 tablet 06/12/21 Isosorbide Mononitrate ER [Imdur] 30 mg PO DAILY #90 tab 09/15/21 Cephalexin [Keflex] 500 mg PO Q12HR 7 Days #14 cap 11/19/21 HYDROcodone/APAP 5-325MG [Colbert 1 tab PO Q6HR PRN 3 Days #12 tab 11/19/21 5-325] methocarbamoL [Robaxin] 500 mg PO BID PRN 5 Days #10 tab 11/19/21 Allergies Allergy/AdvReac Type Severity Reaction Status Date / Time No Known Allergies Allergy Verified 11/19/21 19:45 Review of Systems ROS Statement: Those systems with pertinent positive or pertinent negative responses have been documented in the HPI. Review of Systems: CONST: Denies fever EYES: Denies blurry vision ENT: Denies nasal congestion C/V: Denies Chest pain RESP: Denies shortness of breath GI: Endorses abdominal pain : Denies dysuria SKIN: Denies rash. MSK: Denies joint pain. NEURO: Denies headache ROS Other: All systems not noted in ROS Statement are negative. Past Medical History Past Medical History: Coronary Artery Disease (CAD), Diabetes Mellitus, Fibromyalgia, GERD/Reflux, Myocardial Infarction ([place]) Additional Past Medical History / Comment(s): Idiopathic thrombocytopenia purpura, IBS, diverticulitis, hiatal hernia, 2 herniated discs-L3/L4, Restless Leg Syndrome, gastritis, superficial gastric ulcers. nodule on lt lung-Cancer Stg 1 Last Myocardial Infarction Date:: 01/2017 History of Any Multi-Drug Resistant Organisms: None Reported Past Surgical History: Adenoidectomy, Bladder Surgery, Bowel Resection, Cholecystectomy, Heart Catheterization With Stent, Hernia Repair, Hysterectomy, Tonsillectomy Additional Past Surgical History / Comment(s): BLADDER SUSPENSION x 2, breast biopsy x3, bowel resection due to rupture. left upper lobe of lung removed per CA, Past Anesthesia/Blood Transfusion Reactions: No Reported Reaction Additional Past Anesthesia/Blood Transfusion Reaction / Comment(s): Pt received blood in 2005 due to ITP without reaction. Date of Last Stent Placement:: 01/2017 Past Psychological History: Anxiety Smoking Status: Current every day smoker Past Alcohol Use History: None Reported Past Drug Use History: None Reported - Past Family History Mother Family Medical History: Cancer, Diabetes Mellitus Additional Family Medical History / Comment(s): Father had a defibrillator. He of heart dx in his 80's Father Family Medical History: Diabetes Mellitus Additional Family Medical History / Comment(s): HEART DISEASE General Exam - General Exam Comments Initial Comments: General: Appears in no acute distress. HEAD: Normal with no signs of head trauma. EYES: PERRLA, EOMI, conjunctiva normal, no discharge. ENT: Hearing grossly intact, normal oropharynx. RESPIRATORY: Clear breath sounds bilaterally. No wheezes, rales, or rhonchi. C/V: Regular rate and rhythm. S1 and S2 auscultated, no edema, peripheral pulses 2+ and intact throughout ABD: Abdomen is soft, nondistended. Tender to palpation in the left lower quadrant and mildly in the suprapubic region. No rebound tenderness. No CVA tenderness. No peritoneal signs. EXT: Normal range of motion, no obvious deformity SKIN: No rashes or lesions observed on exposed skin. NEURO: Alert and oriented 4. Limitations: no limitations Course Vital Signs 11/19/21 19:43 Temperature 97.8 F Pulse Rate 92 Respiratory 20 Rate Blood Pressure 152/69 O2 Sat by Pulse 97 Oximetry Medical Decision Making - Medical Decision Making Based on the patient's presentation and physical exam, I'm concerned for acute intra-abdominal process for current symptoms. She does have a history of diverticular disease and has left lower quadrant abdominal pain. We will obtain abdominal laboratory studies as well as a CT abdomen and pelvis. She was in agreement this plan. She'll be symptomatically treatment with IV fluids and analgesia. Laboratory studies are remarkable for a urinary tract infection. Remainder the labs are unremarkable. KUB x-ray obtained showed no acute intra-abdominal process. Abdominal CT showed no acute process. I discussed the results of the patient. I believe it is safer to be discharged home. She was in agreement this plan. Will be started on antibiotics. I'll provide her with a dose of IV Rocephin prior to discharge. She was in agreement this plan. Patient is typically and Colbert at home for pain and states she is running low. She does not have a pain contract. Patient will be given a short three-day course at home for acute worsening of her chronic pain. I will provide the patient with a prescription for Colbert, Robaxin, Keflex 500 mg. I instructed the patient to follow up with their PCP in the next 1-3 days. I explained that the patient should return to the emergency department if they experience any worsening symptoms. Strict return precautions were discussed with the patient. The patient expressed understanding of these instructions. I answered all questions that the patient had. The patient was discharged home in good condition with their prescriptions and follow up information. - Lab Data Result diagrams: 11/19/21 20:24 11/19/21 21:05 Lab Results 11/19/21 11/19/21 11/19/21 Range/Units 19:52 20:24 21:05 WBC 9.9 (3.8-10.6) k/uL RBC 4.89 (3.80-5.40) m/uL Hgb 14.3 (11.4-16.0) gm/dL Hct 44.2 (34.0-46.0) % MCV 90.4 (80.0-100.0) fL MCH 29.2 (25.0-35.0) pg MCHC 32.3 (31.0-37.0) g/dL RDW 13.7 (11.5-15.5) % Plt Count 308 (150-450) k/uL MPV 8.0 Neutrophils % 59 % Lymphocytes % 28 % Monocytes % 9 % Eosinophils % 2 % Basophils % 1 % Neutrophils # 5.8 (1.3-7.7) k/uL Lymphocytes # 2.8 (1.0-4.8) k/uL Monocytes # 0.9 (0-1.0) k/uL Eosinophils # 0.2 (0-0.7) k/uL Basophils # 0.1 (0-0.2) k/uL Sodium 139 (137-145) mmol/L Potassium 3.9 (3.5-5.1) mmol/L Chloride 103 (98-107) mmol/L Carbon Dioxide 26 (22-30) mmol/L Anion Gap 10 mmol/L BUN 16 (7-17) mg/dL Creatinine 0.52 (0.52-1.04) mg/dL Est GFR (CKD-EPI)AfAm >90 (>60 ml/min/1.73 sqM) Est GFR (CKD-EPI)NonAf >90 (>60 ml/min/1.73 sqM) Glucose 99 (74-99) mg/dL Calcium 9.7 (8.4-10.2) mg/dL Total Bilirubin 0.2 (0.2-1.3) mg/dL AST 15 (14-36) U/L ALT 14 (4-34) U/L Alkaline Phosphatase 103 (38-126) U/L Total Protein 6.1 L (6.3-8.2) g/dL Albumin 3.8 (3.5-5.0) g/dL Amylase 38 (30-110) U/L Lipase 133 (23-300) U/L Urine Color Yellow Urine Appearance Cloudy H (Clear) Urine pH 5.5 (5.0-8.0) Ur Specific [place] 1.021 (1.001-1.035) Urine Protein Trace H (Negative) Urine Glucose (UA) 3+ H (Negative) Urine Ketones Trace H (Negative) Urine Blood Trace H (Negative) Urine Nitrite Negative (Negative) Urine Bilirubin Negative (Negative) Urine Urobilinogen <2.0 (<2.0) mg/dL Ur Leukocyte Esterase Large H (Negative) Urine WBC 76 H (0-5) /hpf Ur Squamous Epith Cells 1 (0-4) /hpf Urine Bacteria Many H (None) /hpf Disposition Clinical Impression: UTI (urinary tract infection), Chronic pain Disposition: HOME SELF-CARE Condition: Good Prescriptions: Cephalexin [Keflex] 500 mg PO Q12HR 7 Days #14 cap HYDROcodone/APAP 5-325MG [Colbert 5-325] 1 tab PO Q6HR PRN 3 Days #12 tab PRN Reason: Pain methocarbamoL [Robaxin] 500 mg PO BID PRN 5 Days #10 tab PRN Reason: Pain Is patient prescribed a controlled substance at d/c from ED?: Yes When asked, does pt state using other controlled substances?: No If prescribed controlled substance>3 days was MAPS reviewed?: Prescribed <3 Days If opioid is for acute pain is fill amount 7 days or less?: Yes If Rx opioid, was Start Talking consent form obtained?: Yes Referrals: Rocky Sullivan MD [Primary Care Provider] - 1-2 days Time of Disposition: 23:20
[2021-11-20 00:02] VITALS: BP 133/72; PULSE 81; RESP 15; TEMP 97.3
== END 2021-11-20 00:03 | disposition home or self-care (01) ==
LOC: EC 19:42
DX: Z82.49 Family history of ischemic heart disease and other diseases of the circulatory system (principal); G89.29 Other chronic pain; N39.0 Urinary tract infection, site not specified; E11.9 Type 2 diabetes mellitus without complications; K21.9 Gastro-esophageal reflux disease without esophagitis; Z79.83 Long term (current) use of bisphosphonates; F17.200 Nicotine dependence, unspecified, uncomplicated
CPT/HCPCS: 36415; 80053; 82150; 83690; 85025; 81001; 87086; 87077; 87186; 74018; 74177; 99284; 96374; 96375; 96376; 96361; J2270; J2405; Q9967

== ENCOUNTER 2021-12-03 02:38 | Emergency (ER) | payer MEDICARE, OTHER ==
--- NOTE | 2021-12-03 03:08 | ED ---
General Adult HPI - General Chief complaint: Urogenital Stated complaint: Abdominal Pain Time Seen by Provider: 12/03/21 03:07 Source: patient, RN notes reviewed Mode of arrival: ambulatory Limitations: no limitations - History of Present Illness Initial comments: This is a 71-year-old female with a history of chronic abdominal pain and chroni c back pain. Patient states that she is concerned about the possibly of a UTI. Patient also complaining of her restless leg syndrome.Patient has to chronically straight cath to urinate at home. Patient recently had a urinary tract infection on November 20 and was treated with Keflex. She states she finish this. Patient was also being treated by her primary care physician for chronic pain with Flatgap which she has been unable to get since her physician is no longer in practice. She complaining of increased pain to her back and legs due to restless leg syndrome. This is chronic for the patient. No headache, no fever or chills, no changes in vision or hearing, no sore throat or difficulty with speech, no neck pain, no chest pain or shortness of breath, no nausea or vomiting, no changes in urination or bowel movements, no numbness or tingling, no extremity pain, no skin rashes or lesions. Past medical, surgical, social, and family history reviewed. - Related Data Home Medications Medication Instructions Recorded Confirmed ALPRAZolam 0.25 mg PO AC-BID PRN 11/03/15 09/15/21 Pantoprazole [Protonix] 40 mg PO DAILY 01/14/17 09/15/21 Budesonide-Formot 160-4.5 Mcg 2 puff INHALATION RT-BID 08/31/17 09/15/21 [Symbicort 160-4.5 Mcg Inhaler] HYDROcodone/APAP 10-325MG [Flatgap 1 tab PO TID PRN 08/19/18 09/15/21 10-325] traZODone HCL 50 mg PO HS 09/07/18 09/15/21 Loperamide [Imodium] 2 mg PO TID PRN 01/13/19 09/15/21 Metoprolol Succinate (ER) [Toprol 25 mg PO DAILY 01/13/19 09/15/21 XL] Mirabegron [Myrbetriq] 25 mg PO AC-SUPPER 01/13/19 09/15/21 lisinopriL [Zestril] 5 mg PO DAILY 11/08/20 09/15/21 Aspirin EC [Ecotrin Low Dose] 81 mg PO DAILY 01/03/21 09/15/21 Insulin Aspart [NovoLOG Flexpen] See Protocol SQ AC-TID 01/03/21 09/15/21 Insulin Detemir [Levemir Flextouch See Protocol SQ DAILY 01/03/21 09/15/21 Pen] Nitroglycerin Sl Tabs [Nitrostat] 0.4 mg SL Q5M PRN 01/03/21 09/15/21 Previous Rx's Medication Instructions Recorded Atorvastatin [Lipitor] 40 mg PO HS #30 tab 01/15/19 Fenofibrate [Lofibra] 160 mg PO DAILY #30 tab 01/15/19 Melatonin 3 mg PO HS tablet 01/15/19 rOPINIRole HCL [Requip] 0.25 mg PO TID #21 tablet 07/27/19 HYDROcodone/APAP 5-325MG [Flatgap 1 each PO Q6HR PRN 3 Days #12 tab 06/12/21 5-325] Lidocaine 5% Patch [Lidoderm 5% 1 patch TOPICAL DAILY PRN 7 Days 06/12/21 Patch] #7 patch methocarbamoL [Robaxin-750] 750 mg PO BID PRN 7 Days #14 tablet 06/12/21 Isosorbide Mononitrate ER [Imdur] 30 mg PO DAILY #90 tab 09/15/21 Cephalexin [Keflex] 500 mg PO Q12HR 7 Days #14 cap 11/19/21 HYDROcodone/APAP 5-325MG [Flatgap 1 tab PO Q6HR PRN 3 Days #12 tab 11/19/21 5-325] methocarbamoL [Robaxin] 500 mg PO BID PRN 5 Days #10 tab 11/19/21 Cefdinir [Omnicef] 300 mg PO BID #20 capsule 12/03/21 Allergies Allergy/AdvReac Type Severity Reaction Status Date / Time No Known Allergies Allergy Verified 12/03/21 02:45 Review of Systems ROS Statement: Those systems with pertinent positive or pertinent negative responses have been documented in the HPI. ROS Other: All systems not noted in ROS Statement are negative. Past Medical History Past Medical History: Coronary Artery Disease (CAD), Diabetes Mellitus, Fibromyalgia, GERD/Reflux, Myocardial Infarction ([place]) Additional Past Medical History / Comment(s): Idiopathic thrombocytopenia p urpura, IBS, diverticulitis, hiatal hernia, 2 herniated discs-L3/L4, Restless Leg Syndrome, gastritis, superficial gastric ulcers. nodule on lt lung-Cancer Stg 1 Last Myocardial Infarction Date:: 01/2017 History of Any Multi-Drug Resistant Organisms: None Reported Past Surgical History: Adenoidectomy, Bladder Surgery, Bowel Resection, Cholecystectomy, Heart Catheterization With Stent, Hernia Repair, Hysterectomy, Tonsillectomy Additional Past Surgical History / Comment(s): BLADDER SUSPENSION x 2, breast biopsy x3, bowel resection due to rupture. left upper lobe of lung removed per CA, Past Anesthesia/Blood Transfusion Reactions: No Reported Reaction Additional Past Anesthesia/Blood Transfusion Reaction / Comment(s): Pt received blood in 2005 due to ITP without reaction. Date of Last Stent Placement:: 01/2017 Past Psychological History: Anxiety Smoking Status: Current every day smoker Past Alcohol Use History: None Reported Past Drug Use History: None Reported - Past Family History Mother Family Medical History: Cancer, Diabetes Mellitus Additional Family Medical History / Comment(s): Father had a defibrillator. He of heart dx in his 80's Father Family Medical History: Diabetes Mellitus Additional Family Medical History / Comment(s): HEART DISEASE General Exam Limitations: no limitations General appearance: alert, in no apparent distress Head exam: Present: atraumatic, normocephalic, normal inspection Eye exam: Present: normal appearance, PERRL, EOMI. Absent: scleral icterus, conjunctival injection, periorbital swelling ENT exam: Present: normal exam, mucous membranes moist Neck exam: Present: normal inspection. Absent: tenderness, meningismus, lymphadenopathy Respiratory exam: Present: normal lung sounds bilaterally. Absent: respiratory distress, wheezes, rales, rhonchi, stridor Cardiovascular Exam: Present: regular rate, normal rhythm, normal heart sounds. Absent: systolic murmur, diastolic murmur, rubs, gallop, clicks GI/Abdominal exam: Present: soft, normal bowel sounds. Absent: distended, tenderness, guarding, rebound, rigid Extremities exam: Present: normal inspection, full ROM, normal capillary refill. Absent: tenderness, pedal edema, joint swelling, calf tenderness Back exam: Present: normal inspection Neurological exam: Present: alert, oriented X3, CN II-XII intact Psychiatric exam: Present: normal affect, normal mood Skin exam: Present: warm, dry, intact, normal color. Absent: rash Course Vital Signs 12/03/21 02:40 Temperature 97.7 F Pulse Rate 108 H Respiratory 24 Rate Blood Pressure 135/55 O2 Sat by Pulse 97 Oximetry - Reevaluation(s) Reevaluation #1: 12/03/21 04:14 Medical record is reviewed Patient's current status unchanged, antibiotics ordered Patient is informed of results and questions answered Patient in no distress Reevaluation #2: 12/03/21 04:16 Patient is hemodynamically stable. Patient's laboratory investigations are essentially normal. The case was discussed in detail with ED attending physician. Presentation, findings, treatment plan discussed in detail. Medical Decision Making - Medical Decision Making Patient's workup shows evidence of urinary tract infection. Unfortunately, the patient requires straight catheter at home to urinate. Last urine culture cultures out Klebsiella susceptible to multiple antibiotics. We'll treat with ceftriaxone here and Omnicef 300 twice a day for home. Unfortunately the patient's primary care physician has been out of practice and patient is now out of the pain medicine that she was given chronically. I did agree to give her a Tylenol with Codeine starter pack. Patient received a dose of Flatgap here. Patient hemodynamically stable otherwise. We'll treat for the urinary tract infection. Supervising physician Dr. Garnett The case was discussed in detail with ED attending physician. Presentation, findings, treatment plan discussed in detail. - Lab Data Result diagrams: 12/03/21 03:43 Lab Results 12/03/21 12/03/21 Range/Units 02:47 03:43 WBC 8.7 (3.8-10.6) k/uL RBC 5.13 (3.80-5.40) m/uL Hgb 14.6 (11.4-16.0) gm/dL Hct 47.0 H (34.0-46.0) % MCV 91.6 (80.0-100.0) fL MCH 28.4 (25.0-35.0) pg MCHC 31.0 (31.0-37.0) g/dL RDW 14.3 (11.5-15.5) % Plt Count 281 (150-450) k/uL MPV 7.8 Neutrophils % 59 % Lymphocytes % 29 % Monocytes % 6 % Eosinophils % 3 % Basophils % 1 % Neutrophils # 5.1 (1.3-7.7) k/uL Lymphocytes # 2.6 (1.0-4.8) k/uL Monocytes # 0.5 (0-1.0) k/uL Eosinophils # 0.3 (0-0.7) k/uL Basophils # 0.1 (0-0.2) k/uL Urine Color Yellow Urine Appearance Cloudy H (Clear) Urine pH 5.5 (5.0-8.0) Ur Specific Magna 1.039 H (1.001-1.035) Urine Protein 1+ H (Negative) Urine Glucose (UA) Negative (Negative) Urine Ketones Trace H (Negative) Urine Blood Trace H (Negative) Urine Nitrite Negative (Negative) Urine Bilirubin Negative (Negative) Urine Urobilinogen 2.0 (<2.0) mg/dL Ur Leukocyte Esterase Large H (Negative) Urine RBC 10 H (0-5) /hpf Urine WBC 68 H (0-5) /hpf Ur Squamous Epith Cells 15 H (0-4) /hpf Urine Bacteria Rare H (None) /hpf Urine Mucus Rare H (None) /hpf Disposition Clinical Impression: Acute cystitis, Chronic back pain, History of restless legs syndrome Disposition: HOME SELF-CARE Condition: Stable Instructions (If sedation given, give patient instructions): Urinary Tract Infection in Women (ED), Chronic Pain (ED) Additional Instructions: Take all antibiotics as directed. You need to make an appointment with her primary care physician. I provided a primary care doctor below. Additionally, he should follow-up with the urologist. Follow-up with your regular physician as directed. Return to the ER immediately if any symptoms worsen, new symptoms arise, or any other problems develop. Prescriptions: Cefdinir [Omnicef] 300 mg PO BID #20 capsule Is patient prescribed a controlled substance at d/c from ED?: No Referrals: Jason Foster [STAFF PHYSICIAN] - 12/06/21 Ervin Serra MD [STAFF PHYSICIAN] - 12/07/21 Time of Disposition: 04:20
[2021-12-03 03:14] LABS: Appearance,Urine Cloudy (Clear); Bacteria,Urine Rare /hpf; Bilirubin,Urine Negative (Negative); Blood,Urine Trace (Negative); Color,Urine Yellow; Glucose,Urine (UA) Negative (Negative); Ketones,Urine Trace (Negative); Leukocyte Esterase,Urine Large (Negative); Mucus,Urine Rare /hpf; Nitrite,Urine Negative (Negative); PH, Urine 5.5 (5.0-8.0); Protein,Urine 1+ (Negative); RBC,Urine 10 /hpf (0-5); Specific Gravity,Urine 1.039 (1.001-1.035); Squamous Epithelial Cell,Urine 15 /hpf (0-4); WBC,Urine 68 /hpf (0-5)
--- NOTE | 2021-12-03 03:48 | XR ---
EXAMINATION TYPE: XR KUB DATE OF EXAM: 12/03/2021 COMPARISON: 11/19/2021 HISTORY: Abdominal pain TECHNIQUE: 2 views upright FINDINGS: There is no sign of intestinal obstruction or pneumoperitoneum. There is slight elevated le ft diaphragm. No pathologic calcification seen over the kidneys. No evidence of abdominal mass. Fecal pattern is normal. IMPRESSION: Nonacute abdomen. No adverse change.
[2021-12-03 04:07] LABS: Basophils # (A) 0.1 k/uL (0-0.2); Basophils % (A) 1 %; Eosinophils # (A) 0.3 k/uL (0-0.7); Eosinophils % (A) 3 %; HGB 14.6 gm/dL (11.4-16.0); Lymphocytes # (A) 2.6 k/uL (1.0-4.8); Lymphocytes % (A) 29 %; MCH 28.4 pg (25.0-35.0); MCV 91.6 fL (80.0-100.0); Mean Platelet Volume 7.8; Monocytes # (A) 0.5 k/uL (0-1.0); Monocytes % (A) 6 %; Neutrophils # (A) 5.1 k/uL (1.3-7.7); Neutrophils % (A) 59 %; Platelet Count 281 k/uL (150-450); RBC 5.13 m/uL (3.80-5.40); RDW 14.3 % (11.5-15.5); WBC 8.7 k/uL (3.8-10.6)
[2021-12-03] MEDS ORDERED: HYDROcodone/APAP 5-325MG 1 EACH TAB PO STA (04:15)
[2021-12-03] MEDS ORDERED: ACET/COD 300 MG/30 MG STARTER PACK 6 TAB BTL PO STA (04:16)
[2021-12-03 04:25] LABS: ALT 42 U/L (4-34); AST 34 U/L (14-36); African American GFR (CKD) >90 (>60 ml/min/1.73 sqM); Albumin 4.6 g/dL (3.5-5.0); Alkaline Phosphatase 145 U/L (38-126); Anion Gap 13 mmol/L; Blood Urea Nitrogen 18 mg/dL (7-17); Calcium 9.5 mg/dL (8.4-10.2); Carbon Dioxide 15 mmol/L (22-30); Chloride 107 mmol/L (98-107); Glucose 175 mg/dL (74-99); Non-African American GFR(CKD) >90 (>60 ml/min/1.73 sqM); Sodium 135 mmol/L (137-145); Total Bilirubin 0.5 mg/dL (0.2-1.3); Total Protein 6.9 g/dL (6.3-8.2)
[2021-12-03 04:35] LABS: Potassium 4.6 mmol/L (3.5-5.1)
[2021-12-03 04:43] VITALS: BP 152/59; PULSE 94; RESP 18; TEMP 97.8
== END 2021-12-03 05:39 | disposition home or self-care (01) ==
LOC: EC 02:38
DX: N30.00 Acute cystitis without hematuria (principal); G89.29 Other chronic pain; M54.9 Dorsalgia, unspecified; G25.81 Restless legs syndrome; I25.10 Atherosclerotic heart disease of native coronary artery without angina pectoris; E11.9 Type 2 diabetes mellitus without complications; K21.9 Gastro-esophageal reflux disease without esophagitis; F17.200 Nicotine dependence, unspecified, uncomplicated; Z79.899 Other long term (current) drug therapy; Z79.82 Long term (current) use of aspirin; Z79.4 Long term (current) use of insulin
CPT/HCPCS: 99284; 96365; 36415; 80053; 85025; 81001; 87086; 74018; J0696; 87077; 87186

== ENCOUNTER → 2021-12-06 | Outpatient (CLI) | payer MEDICARE, OTHER ==
[2021-12-06 11:22] LABS: African American GFR (CKD) >90 (>60 ml/min/1.73 sqM); Blood Urea Nitrogen 12 mg/dL (7-17); Non-African American GFR(CKD) >90 (>60 ml/min/1.73 sqM)
--- NOTE | 2021-12-06 12:33 | CT ---
EXAMINATION TYPE: CT ChestAbdPelvis w con DATE OF EXAM: 12/06/2021 COMPARISON: Most recent PET CT June 03, 2021 and older studies HISTORY: Lung CA originally diagnosed 2018. CT DLP: 636.40 mGycm. Automated Exposure Control for Dose Reduction was Utilized. CONTRAST: CT scan of the thorax, abdomen and pelvis is performed with oral and with IV Contrast, patient inject ed with 70 mL of Isovue 300. FINDINGS: LUNGS: Moderate underlying emphysematous changes are redemonstrated. Persistent posttreatment change to the left lung with partial pneumonectomy and left-sided volume loss. Superior retraction of the le ft hilum is redemonstrated. Mild left greater than right biapical pleural/parenchymal scarring is red emonstrated. No pleural effusion or pneumothorax seen bilaterally. Scattered tiny nodules in the left lower lung are redemonstrated in reference several nodules noted axial images 42 and 43, they have s imilar appearance and size to most recent CT. All are subcentimeter in size. MEDIASTINUM: There are no new greater than 1 cm hilar or mediastinal lymph nodes. No cardiomegaly o r pericardial effusion is seen. 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 Coronary artery calcification redemonstrated. Stable heterogene ity to the thyroid with greater than 1 cm hypodense lower pole right thyroid nodule. Redemonstration of focal mediastinal fluid anterior to aorta and main pulmonary artery axial image 27 presumed physio logic. OTHER: Stable 1.6 cm right breast mass from several prior studies axial image 32 on current exam. LIVER/GB: Postcholecystectomy changes. Stable mild extrahepatic biliary dilatation. PANCREAS: No significant abnormality is seen. SPLEEN: No significant abnormality is seen. ADRENALS: Stable 2 adjacent left adrenal masses with 2.0 cm superior mass axial image 61 and 1 simila r near 2.0 cm cm mass just inferior to this axial image 54 current study. No significant change from 2015 MRI abdomen study. KIDNEYS: Stable 3.7 cm thin-walled cyst laterally in the kidney upper midpole level axial image 60. S mall focus of left-sided calcification redemonstrated in the thin-walled cyst. Subcentimeter adjacent cyst posteriorly image 64 is redemonstrated. BOWEL: Sutures in the bowel loop axial image 84 right abdomen redemonstrated. Suboptimal evaluation o f distal bowel. Mild to moderate right-sided colonic fecal prominence including low-lying cecum. No s uspicious small or large bowel dilatation. Additional sutures sigmoid colon in the left pelvis axial image 105 redemonstrated. GENITAL ORGANS: Uterus surgically absent. LYMPH NODES: No greater than 1cm abdominal or pelvic lymph nodes are appreciated. OSSEOUS STRUCTURES: Moderate to severe disc space narrowing and endplate sclerosis L4-L5 and L5-S1 le vels. Multilevel facet arthropathy in the mid to lower lumbar spine. OTHER: Moderate to severe mixed plaque of the aorta extends into branch vessels. IMPRESSION: Overall stable findings from most recent CT and PET/CT, no new or enlarging suspicious ma sses or adenopathy to suggest active neoplastic recurrence. Posttreatment changes to the left lung ar e redemonstrated. Stable subcentimeter nodularity in the left lower lung.
== END | disposition home or self-care (01) ==
LOC: RADCTMAIN 10:13
PROVIDERS: ATTEND Internal Medicine Hematology & Oncology
DX: C34.90 Malignant neoplasm of unspecified part of unspecified bronchus or lung (principal)
CPT/HCPCS: 82565; 84520; 71260; 74177; 36415; Q9967 ×2

== ENCOUNTER 2021-12-31 19:57 | Emergency (ER) | payer MEDICARE, OTHER ==
[2021-12-31 23:16] LABS: Appearance,Urine Cloudy (Clear); Bacteria,Urine Moderate /hpf; Bilirubin,Urine Negative (Negative); Blood,Urine Negative (Negative); Color,Urine Yellow; Glucose,Urine (UA) 4+ (Negative); Ketones,Urine Negative (Negative); Leukocyte Esterase,Urine Large (Negative); Mucus,Urine Occasional /hpf; Nitrite,Urine Positive (Negative); PH, Urine 5.5 (5.0-8.0); Protein,Urine Trace (Negative); RBC,Urine 5 /hpf (0-5); Specific Gravity,Urine 1.022 (1.001-1.035); Squamous Epithelial Cell,Urine 15 /hpf (0-4); Urobilinogen,Urine <2.0 mg/dL (<2.0); WBC,Urine 182 /hpf (0-5)
[2021-12-31] MEDS ORDERED: SODIUM CHLORIDE 0.9% 1,000 ML IV STA (23:30)
[2021-12-31] MEDS ORDERED: cefTRIAXone IN SWFI 1,000 MG/10 ML SYRINGE IVP STA (23:32)
[2021-12-31] MEDS ORDERED: KETOROLAC 15 MG/ML 1 ML VIAL IVP STA (23:34)
--- NOTE | 2021-12-31 23:45 | ED ---
Abdominal Pain HPI - General Chief Complaint: Abdominal Pain Stated Complaint: appendix Time Seen by Provider: 12/31/21 23:22 Source: patient, RN notes reviewed Mode of arrival: ambulatory Limitations: no limitations - History of Present Illness Initial Comments: This is a pleasant 71-year-old female who presents to the emergency department complaining of pain in her right flank and right lower quadrant. Patient states she was recently treated for urinary tract infections. Patient states she believes she took cephalexin twice. She states the second time was an increased dose patient finish that one week ago. Patient has a history of diabetes m ellitus, cardiac disease. Patient also has a history of recurrent UTIs. No headache, no fever or chills, no changes in vision or hearing, no sore throat or difficulty with speech, no neck pain, no chest pain or shortness of breath,, no nausea or vomiting, no changes in urination or bowel movements, no numbness or tingling, no extremity pain, no skin rashes or lesions. Past medical, surgical, social, and family history reviewed. MD Complaint: flank pain - Related Data Home Medications Medication Instructions Recorded Confirmed ALPRAZolam 0.25 mg PO AC-BID PRN 11/03/15 09/15/21 Pantoprazole [Protonix] 40 mg PO DAILY 01/14/17 09/15/21 Budesonide-Formot 160-4.5 Mcg 2 puff INHALATION RT-BID 08/31/17 09/15/21 [Symbicort 160-4.5 Mcg Inhaler] HYDROcodone/APAP 10-325MG [[place] 1 tab PO TID PRN 08/19/18 09/15/21 10-325] traZODone HCL 50 mg PO HS 09/07/18 09/15/21 Loperamide [Imodium] 2 mg PO TID PRN 01/13/19 09/15/21 Metoprolol Succinate (ER) [Toprol 25 mg PO DAILY 01/13/19 09/15/21 XL] Mirabegron [Myrbetriq] 25 mg PO AC-SUPPER 01/13/19 09/15/21 lisinopriL [Zestril] 5 mg PO DAILY 11/08/20 09/15/21 Aspirin EC [Ecotrin Low Dose] 81 mg PO DAILY 01/03/21 09/15/21 Insulin Aspart [NovoLOG Flexpen] See Protocol SQ AC-TID 01/03/21 09/15/21 Insulin Detemir [Levemir Flextouch See Protocol SQ DAILY 01/03/21 09/15/21 Pen] Nitroglycerin Sl Tabs [Nitrostat] 0.4 mg SL Q5M PRN 01/03/21 09/15/21 Previous Rx's Medication Instructions Recorded Atorvastatin [Lipitor] 40 mg PO HS #30 tab 01/15/19 Fenofibrate [Lofibra] 160 mg PO DAILY #30 tab 01/15/19 Melatonin 3 mg PO HS tablet 01/15/19 rOPINIRole HCL [Requip] 0.25 mg PO TID #21 tablet 07/27/19 HYDROcodone/APAP 5-325MG [[place] 1 each PO Q6HR PRN 3 Days #12 tab 06/12/21 5-325] Lidocaine 5% Patch [Lidoderm 5% 1 patch TOPICAL DAILY PRN 7 Days 06/12/21 Patch] #7 patch methocarbamoL [Robaxin-750] 750 mg PO BID PRN 7 Days #14 tablet 06/12/21 Isosorbide Mononitrate ER [Imdur] 30 mg PO DAILY #90 tab 09/15/21 Cephalexin [Keflex] 500 mg PO Q12HR 7 Days #14 cap 11/19/21 HYDROcodone/APAP 5-325MG [[place] 1 tab PO Q6HR PRN 3 Days #12 tab 11/19/21 5-325] methocarbamoL [Robaxin] 500 mg PO BID PRN 5 Days #10 tab 11/19/21 Cefdinir [Omnicef] 300 mg PO BID #20 capsule 12/03/21 Cefdinir 300 mg PO Q12HR #20 cap 01/01/22 Docusate [Colace] 100 mg PO DAILY #30 capsule 01/01/22 HYDROcodone/APAP 5-325MG [[place] 1 tab PO Q6HR PRN 3 Days #12 tab 01/01/22 5-325] Allergies Allergy/AdvReac Type Severity Reaction Status Date / Time No Known Allergies Allergy Verified 12/31/21 20:03 Review of Systems ROS Statement: Those systems with pertinent positive or pertinent negative responses have been documented in the HPI. ROS Other: All systems not noted in ROS Statement are negative. Past Medical History Past Medical History: Coronary Artery Disease (CAD), Diabetes Mellitus, Fibromyalgia, GERD/Reflux, Myocardial Infarction ([place]) Additional Past Medical History / Comment(s): Idiopathic thrombocytopenia purpura, IBS, diverticulitis, hiatal hernia, 2 herniated discs-L3/L4, Restless Leg Syndrome, gastritis, superficial gastric ulcers. nodule on lt lung-Cancer Stg 1 Last Myocardial Infarction Date:: 01/2017 History of Any Multi-Drug Resistant Organisms: None Reported Past Surgical History: Adenoidectomy, Bladder Surgery, Bowel Resection, [place] cystectomy, Heart Catheterization With Stent, Hernia Repair, Hysterectomy, Tonsillectomy Additional Past Surgical History / Comment(s): BLADDER SUSPENSION x 2, breast biopsy x3, bowel resection due to rupture. left upper lobe of lung removed per [place], Past Anesthesia/Blood Transfusion Reactions: No Reported Reaction Additional Past Anesthesia/Blood Transfusion Reaction / Comment(s): Pt received blood in 2005 due to ITP without reaction. Date of Last Stent Placement:: 01/2017 Past Psychological History: Anxiety Smoking Status: Current every day smoker Past Alcohol Use History: None Reported Past Drug Use History: None Reported - Past Family History Mother Family Medical History: Cancer, Diabetes Mellitus Additional Family Medical History / Comment(s): Father had a defibrillator. He of heart dx in his 80's Father Family Medical History: Diabetes Mellitus Additional Family Medical History / Comment(s): HEART DISEASE General Exam - General Exam Comments Initial Comments: Patient does not appear to be ill or toxic. Capillary refill less than 2 seconds. No mottling. Cranial nerves II through XII grossly intact. Alert and oriented 4. Limitations: no limitations General appearance: alert, in distress Head exam: Present: atraumatic, normocephalic, normal inspection Eye exam: Present: normal appearance, PERRL, EOMI. Absent: scleral icterus, conjunctival injection, periorbital swelling ENT exam: Present: normal exam, mucous membranes moist Neck exam: Present: normal inspection. Absent: tenderness, meningismus, lymphadenopathy Respiratory exam: Present: normal lung sounds bilaterally. Absent: respiratory distress, wheezes, rales, rhonchi, stridor Cardiovascular Exam: Present: regular rate, normal rhythm, normal heart sounds. Absent: systolic murmur, diastolic murmur, rubs, gallop, clicks GI/Abdominal exam: Present: soft, tenderness (Patient tender in the right abdomen and along the right paracolic gutter and right flank area, no definitive rebound or percussion tenderness.), normal bowel sounds. Absent: distended, guarding, rebound, rigid Extremities exam: Present: normal inspection, full ROM, normal capillary refill. Absent: tenderness, pedal edema, joint swelling, calf tenderness Back exam: Present: normal inspection, CVA tenderness (R). Absent: CVA tenderness (L), paraspinal tenderness, vertebral tenderness Neurological exam: Present: alert, oriented X3, CN II-XII intact. Absent: motor sensory deficit Psychiatric exam: Present: normal affect, normal mood Skin exam: Present: warm, dry, intact, normal color. Absent: rash Course Vital Signs 12/31/21 12/31/21 20:01 23:40 Temperature 98 F 97.6 F Pulse Rate 98 92 Respiratory 18 20 Rate Blood Pressure 135/61 139/85 O2 Sat by Pulse 97 96 Oximetry - Reevaluation(s) Reevaluation #1: 01/01/22 00:57 Medical record is reviewed Symptoms are improved here in the emergency department Patient is informed of results and questions answered Patient in no distress Medical Decision Making - Medical Decision Making Patient's urinalysis would indicate significant urinary tract infection, patient symptomology would indicate possible pyelonephritis. Computed tomography scan ordered. Blood work ordered. Note the patient's vital signs are stable. Previous urine cultures cultured out Klebsiella pneumoniae. Multiple antibiotic sensitivities. We'll admit the patient as she has had outpatient treatment failure 2 and has presenting symptomology consistent with pyelonephritis Patient was improved prior to discharge. Plan: Treat the patient for 10 days with Omnicef 300 mg twice a day. Patient is to call her regular physician on Sunday for reevaluation without fail. I discussed this with both the patient and her daughter. I did agree to a short course of hydrocodone. Patient computed tomography scan did not show any evidence of obstructive uropathy or ureteral stone. All findings discussed with the patient. Treatment plan discussed. Patient voiced understanding. Daughter voiced understanding. Patient was told to return to the ER for any signs or symptoms worsen. Told to return immediately if any other problems arise. All questions answered. Treatment plan discussed. Patient in agreement Every effort has been made to ensure accuracy of this dictation. However, due to the limitations of electronic medical records and dictation devices, errors in charting still occur. Fundraising Manager Dr. Garnett - Lab Data Result diagrams: 12/31/21 23:46 12/31/21 23:46 Lab Results 12/31/21 12/31/21 12/31/21 Range/Units 22:42 23:46 23:46 WBC 9.1 (3.8-10.6) k/uL RBC 4.97 (3.80-5.40) m/uL Hgb 14.7 (11.4-16.0) gm/dL Hct 45.4 (34.0-46.0) % MCV 91.4 (80.0-100.0) fL MCH 29.6 (25.0-35.0) pg MCHC 32.3 (31.0-37.0) g/dL RDW 14.4 (11.5-15.5) % Plt Count 291 (150-450) k/uL MPV 8.1 Neutrophils % 56 % Lymphocytes % 30 % Monocytes % 9 % Eosinophils % 3 % Basophils % 1 % Neutrophils # 5.1 (1.3-7.7) k/uL Lymphocytes # 2.7 (1.0-4.8) k/uL Monocytes # 0.8 (0-1.0) k/uL Eosinophils # 0.3 (0-0.7) k/uL Basophils # 0.1 (0-0.2) k/uL Sodium 138 (137-145) mmol/L Potassium 4.4 (3.5-5.1) mmol/L Chloride 103 (98-107) mmol/L Carbon Dioxide 22 (22-30) mmol/L Anion Gap 13 mmol/L BUN 18 H (7-17) mg/dL Creatinine 0.53 (0.52-1.04) mg/dL Est GFR (CKD-EPI)AfAm >90 (>60 ml/min/1.73 sqM) Est GFR (CKD-EPI)NonAf >90 (>60 ml/min/1.73 sqM) Glucose 203 H (74-99) mg/dL Plasma Lactic Acid Jeremy (0.7-2.0) mmol/L Calcium 10.3 H (8.4-10.2) mg/dL Total Bilirubin 0.2 (0.2-1.3) mg/dL AST 21 (14-36) U/L ALT 31 (4-34) U/L Alkaline Phosphatase 144 H (38-126) U/L Total Protein 6.8 (6.3-8.2) g/dL Albumin 4.5 (3.5-5.0) g/dL Urine Color Yellow Urine Appearance Cloudy H (Clear) Urine pH 5.5 (5.0-8.0) Ur Specific [place] 1.022 (1.001-1.035) Urine Protein Trace H (Negative) Urine Glucose (UA) 4+ H (Negative) Urine Ketones Negative (Negative) Urine Blood Negative (Negative) Urine Nitrite Positive H (Negative) Urine Bilirubin Negative (Negative) Urine Urobilinogen <2.0 (<2.0) mg/dL Ur Leukocyte Esterase Large H (Negative) Urine RBC 5 (0-5) /hpf Urine WBC 182 H (0-5) /hpf Urine WBC Clumps Few H (None) /hpf Ur Squamous Epith Cells 15 H (0-4) /hpf Urine Bacteria Moderate H (None) /hpf Urine Mucus Occasional H (None) /hpf 12/31/21 Range/Units 23:46 WBC (3.8-10.6) k/uL RBC (3.80-5.40) m/uL Hgb (11.4-16.0) gm/dL Hct (34.0-46.0) % MCV (80.0-100.0) fL MCH (25.0-35.0) pg MCHC (31.0-37.0) g/dL RDW (11.5-15.5) % Plt Count (150-450) k/uL MPV Neutrophils % % Lymphocytes % % Monocytes % % Eosinophils % % Basophils % % Neutrophils # (1.3-7.7) k/uL Lymphocytes # (1.0-4.8) k/uL Monocytes # (0-1.0) k/uL Eosinophils # (0-0.7) k/uL Basophils # (0-0.2) k/uL Sodium (137-145) mmol/L Potassium (3.5-5.1) mmol/L Chloride (98-107) mmol/L Carbon Dioxide (22-30) mmol/L Anion Gap mmol/L BUN (7-17) mg/dL Creatinine (0.52-1.04) mg/dL Est GFR (CKD-EPI)AfAm (>60 ml/min/1.73 sqM) Est GFR (CKD-EPI)NonAf (>60 ml/min/1.73 sqM) Glucose (74-99) mg/dL Plasma Lactic Acid Jeremy 1.3 (0.7-2.0) mmol/L Calcium (8.4-10.2) mg/dL Total Bilirubin (0.2-1.3) mg/dL AST (14-36) U/L ALT (4-34) U/L Alkaline Phosphatase (38-126) U/L Total Protein (6.3-8.2) g/dL Albumin (3.5-5.0) g/dL Urine Color Urine Appearance (Clear) Urine pH (5.0-8.0) Ur Specific [place] (1.001-1.035) Urine Protein (Negative) Urine Glucose (UA) (Negative) Urine Ketones (Negative) Urine Blood (Negative) Urine Nitrite (Negative) Urine Bilirubin (Negative) Urine Urobilinogen (<2.0) mg/dL Ur Leukocyte Esterase (Negative) Urine RBC (0-5) /hpf Urine WBC (0-5) /hpf Urine WBC Clumps (None) /hpf Ur Squamous Epith Cells (0-4) /hpf Urine Bacteria (None) /hpf Urine Mucus (None) /hpf Disposition Clinical Impression: Uncontrolled type 2 diabetes mellitus, Hypercalcemia, Urinary tract infection Narrative: Likely due to Klebsiella pneumonia with outpatient treatment failure Disposition: HOME SELF-CARE Condition: Stable Instructions (If sedation given, give patient instructions): Urinary Tract Infection in Women (ED) Additional Instructions: Follow-up with your regular physician as directed. Return to the ER immediately if any symptoms worsen, new symptoms arise, or any other problems develop. Take all antibiotics as directed. Call your doctor at 8 AM Sunday morning for recheck. Prescriptions: Cefdinir 300 mg PO Q12HR #20 cap Docusate [Colace] 100 mg PO DAILY #30 capsule HYDROcodone/APAP 5-325MG [[place] 5-325] 1 tab PO Q6HR PRN 3 Days #12 tab PRN Reason: Pain Is patient prescribed a controlled substance at d/c from ED?: No When asked, does pt state using other controlled substances?: Yes If prescribed controlled substance>3 days was MAPS reviewed?: Prescribed <3 Days If opioid is for acute pain is fill amount 7 days or less?: No If Rx opioid, was Start Talking consent form obtained?: Yes Referrals: Fernando Chairez MD [Primary Care Provider] - 1-2 days Time of Disposition: 00:58 Decision to Admit Reason: Admit from EC Decision Time: 00:58
[2021-12-31 23:55] LABS: Basophils # (A) 0.1 k/uL (0-0.2); Basophils % (A) 1 %; Eosinophils # (A) 0.3 k/uL (0-0.7); Eosinophils % (A) 3 %; HCT 45.4 % (34.0-46.0); HGB 14.7 gm/dL (11.4-16.0); Lymphocytes # (A) 2.7 k/uL (1.0-4.8); Lymphocytes % (A) 30 %; MCH 29.6 pg (25.0-35.0); MCHC 32.3 g/dL (31.0-37.0); MCV 91.4 fL (80.0-100.0); Mean Platelet Volume 8.1; Monocytes # (A) 0.8 k/uL (0-1.0); Monocytes % (A) 9 %; Neutrophils # (A) 5.1 k/uL (1.3-7.7); Neutrophils % (A) 56 %; Platelet Count 291 k/uL (150-450); RBC 4.97 m/uL (3.80-5.40); RDW 14.4 % (11.5-15.5); WBC 9.1 k/uL (3.8-10.6)
[2022-01-01 00:23] LABS: ALT 31 U/L (4-34); AST 21 U/L (14-36); African American GFR (CKD) >90 (>60 ml/min/1.73 sqM); Albumin 4.5 g/dL (3.5-5.0); Alkaline Phosphatase 144 U/L (38-126); Anion Gap 13 mmol/L; Blood Urea Nitrogen 18 mg/dL (7-17); Calcium 10.3 mg/dL (8.4-10.2); Carbon Dioxide 22 mmol/L (22-30); Chloride 103 mmol/L (98-107); Glucose 203 mg/dL (74-99); Non-African American GFR(CKD) >90 (>60 ml/min/1.73 sqM); Potassium 4.4 mmol/L (3.5-5.1); Sodium 138 mmol/L (137-145); Total Bilirubin 0.2 mg/dL (0.2-1.3); Total Protein 6.8 g/dL (6.3-8.2)
[2022-01-01 00:31] VITALS: BP 139/85; PULSE 92; RESP 20; TEMP 97.6
--- NOTE | 2022-01-01 01:06 | CT ---
EXAMINATION TYPE: CT abdomen pelvis wo con DATE OF EXAM: 12/31/2021 COMPARISON: 12/06/2021 HISTORY: rt flank pain/rlq pain CT DLP: 344.1 mGycm Automated exposure control for dose reduction was used. Images obtained from the diaphragm to the floor the pelvis with no contrast. The lung bases are clear of consolidation. No pleural effusion. Heart size is normal. No pericardial effusion. Liver spleen and stomach pancreas appear intact. Gallbladder is absent. The bile ducts are not dilate d. There is no adrenal mass. There is a 3 cm cortical cyst lateral left kidney. There is a 7 mm calcific ation interpolar right kidney. No hydronephrosis. Ureters are not dilated. No retroperitoneal adenopa thy. There is previous right mid abdominal bowel surgery. Abdominal aorta is atheromatous. The bladde r distends smoothly. No inguinal hernia. There is previous surgery at the rectosigmoid junction. Appe ndix is not seen. The cecum appears to be low in the pelvis. No ascites or free air. No sign of a bowel obstruction. There are spondylotic changes in the lumbar s pine with moderate narrowing at L4-5 and L5-S1 discs. Abdominal aorta is atheromatous. There is hyste rectomy. The bony pelvis is intact. The hip joints are intact. IMPRESSION: No acute abnormality in the abdomen and pelvis. Previous surgery. No adverse change compared to old e xam. No renal stone or obstruction.
[2022-01-01] MEDS ORDERED: MORPHINE SULFATE 4 MG/ML SYRINGE IV STA (01:14)
[2022-01-01] MEDS ORDERED: ONDANSETRON 4 MG/2 ML VIAL IVP STA (01:14)
== END 2022-01-01 02:16 | disposition home or self-care (01) ==
LOC: EC 19:57
DX: E11.65 Type 2 diabetes mellitus with hyperglycemia (principal); N39.0 Urinary tract infection, site not specified; E83.52 Hypercalcemia; K21.9 Gastro-esophageal reflux disease without esophagitis; I25.2 Old myocardial infarction; Z79.899 Other long term (current) drug therapy; Z79.4 Long term (current) use of insulin; F17.200 Nicotine dependence, unspecified, uncomplicated
CPT/HCPCS: 36415; 80053; 83605; 85025; 81001; 87040; 87086; 87077; 87186; 74176; 99284; 96374; 96375; 96361; J2270; J2405; J0696; J1885

== ENCOUNTER 2022-01-05 15:50 | Inpatient (IN) | payer MEDICARE, OTHER ==
[2022-01-05] MEDS ORDERED: SODIUM CHLORIDE 0.9% 1,000 ML IV STA (16:50)
[2022-01-05] MEDS ORDERED: HYDROmorphone 0.5 MG/0.5 ML SYRINGE IVP STA (16:50)
[2022-01-05] MEDS ORDERED: SODIUM CHLORIDE 0.9% 500 ML 500 ML IV STA (16:50)
--- NOTE | 2022-01-05 16:55 | ED ---
Abdominal Pain HPI - General Chief Complaint: Abdominal Pain Stated Complaint: UTI, Pain Time Seen by Provider: 01/05/22 16:30 Source: patient, family, RN notes reviewed, old records reviewed Mode of arrival: ambulatory Limitations: no limitations - History of Present Illness Initial Comments: 71-year-old female history of multiple medical issues including UTI with sepsis in the past partial bowel removal. She was seen here 5 days ago and diagnosed w ith UTI she is getting worse not better she was changed to a different antibiotic by her family doctor in the interim again with no improvement she complains of sharp right-sided flank and lower quadrant pain radiation up into her CVA region. Increases with with movement deep breathing. Decreased oral intake no overt fevers chills or sweats reported at this time. Patient does relate that the pain is been going on for a couple weeks. MD Complaint: abdominal pain, flank pain, other - Related Data Home Medications Medication Instructions Recorded Confirmed ALPRAZolam 0.25 mg PO AC-BID PRN 11/03/15 09/15/21 Pantoprazole [Protonix] 40 mg PO DAILY 01/14/17 09/15/21 Budesonide-Formot 160-4.5 Mcg 2 puff INHALATION RT-BID 08/31/17 09/15/21 [Symbicort 160-4.5 Mcg Inhaler] HYDROcodone/APAP 10-325MG [[place] 1 tab PO TID PRN 08/19/18 09/15/21 10-325] traZODone HCL 50 mg PO HS 09/07/18 09/15/21 Loperamide [Imodium] 2 mg PO TID PRN 01/13/19 09/15/21 Metoprolol Succinate (ER) [Toprol 25 mg PO DAILY 01/13/19 09/15/21 XL] Mirabegron [Myrbetriq] 25 mg PO AC-SUPPER 01/13/19 09/15/21 lisinopriL [Zestril] 5 mg PO DAILY 11/08/20 09/15/21 Aspirin EC [Ecotrin Low Dose] 81 mg PO DAILY 01/03/21 09/15/21 Insulin Aspart [NovoLOG Flexpen] See Protocol SQ AC-TID 01/03/21 09/15/21 Insulin Detemir [Levemir Flextouch See Protocol SQ DAILY 01/03/21 09/15/21 Pen] Nitroglycerin Sl Tabs [Nitrostat] 0.4 mg SL Q5M PRN 01/03/21 09/15/21 Previous Rx's Medication Instructions Recorded Atorvastatin [Lipitor] 40 mg PO HS #30 tab 01/15/19 Fenofibrate [Lofibra] 160 mg PO DAILY #30 tab 01/15/19 Melatonin 3 mg PO HS tablet 01/15/19 rOPINIRole HCL [Requip] 0.25 mg PO TID #21 tablet 07/27/19 HYDROcodone/APAP 5-325MG [[place] 1 each PO Q6HR PRN 3 Days #12 tab 06/12/21 5-325] Lidocaine 5% Patch [Lidoderm 5% 1 patch TOPICAL DAILY PRN 7 Days 06/12/21 Patch] #7 patch methocarbamoL [Robaxin-750] 750 mg PO BID PRN 7 Days #14 tablet 06/12/21 Isosorbide Mononitrate ER [Imdur] 30 mg PO DAILY #90 tab 09/15/21 Cephalexin [Keflex] 500 mg PO Q12HR 7 Days #14 cap 11/19/21 HYDROcodone/APAP 5-325MG [[place] 1 tab PO Q6HR PRN 3 Days #12 tab 11/19/21 5-325] methocarbamoL [Robaxin] 500 mg PO BID PRN 5 Days #10 tab 11/19/21 Cefdinir [Omnicef] 300 mg PO BID #20 capsule 12/03/21 Cefdinir 300 mg PO Q12HR #20 cap 01/01/22 Docusate [Colace] 100 mg PO DAILY #30 capsule 01/01/22 HYDROcodone/APAP 5-325MG [[place] 1 tab PO Q6HR PRN 3 Days #12 tab 01/01/22 5-325] Allergies Allergy/AdvReac Type Severity Reaction Status Date / Time No Known Allergies Allergy Verified 01/05/22 15:57 Review of Systems ROS Statement: Those systems with pertinent positive or pertinent negative responses have been documented in the HPI. ROS Other: All systems not noted in ROS Statement are negative. Past Medical History Past Medical History: Coronary Artery Disease (CAD), Diabetes Mellitus, Fibromyalgia, GERD/Reflux, Myocardial Infarction ([place]) Additional Past Medical History / Comment(s): Idiopathic thrombocytopenia purpura, IBS, diverticulitis, hiatal hernia, 2 herniated discs-L3/L4, Restless Leg Syndrome, gastritis, superficial gastric ulcers. nodule on lt lung-Cancer Stg 1 Last Myocardial Infarction Date:: 01/2017 History of Any Multi-Drug Resistant Organisms: None Reported Past Surgical History: Adenoidectomy, Bladder Surgery, Bowel Resection, Cholecystectomy, Heart Catheterization With Stent, Hernia Repair, Hysterectomy, Tonsillectomy Additional Past Surgical History / Comment(s): BLADDER SUSPENSION x 2, breast biopsy x3, bowel resection due to rupture. left upper lobe of lung removed per [facility], Past Anesthesia/Blood Transfusion Reactions: No Reported Reaction Additional Past Anesthesia/Blood Transfusion Reaction / Comment(s): Pt received blood in 2005 due to ITP without reaction. Date of Last Stent Placement:: 01/2017 Past Psychological History: Anxiety Smoking Status: Current every day smoker Past Alcohol Use History: None Reported Past Drug Use History: None Reported - Past Family History Mother Family Medical History: Cancer, Diabetes Mellitus Additional Family Medical History / Comment(s): Father had a defibrillator. He of heart dx in his 80's Father Family Medical History: Diabetes Mellitus Additional Family Medical History / Comment(s): HEART DISEASE General Exam - General Exam Comments Initial Comments: This is a well-developed frail-appearing female who is awake alert oriented 4 Limitations: no limitations General appearance: alert, in no apparent distress Head exam: Present: atraumatic, normocephalic, normal inspection Eye exam: Present: normal appearance, PERRL, EOMI. Absent: scleral icterus, conjunctival injection, periorbital swelling ENT exam: Present: mucous membranes dry Neck exam: Present: normal inspection, full ROM. Absent: tenderness, meningismus, lymphadenopathy Respiratory exam: Present: normal lung sounds bilaterally. Absent: respiratory distress, wheezes, rales, rhonchi, stridor Cardiovascular Exam: Present: regular rate, normal rhythm, normal heart sounds. Absent: systolic murmur, diastolic murmur, rubs, gallop, clicks GI/Abdominal exam: Present: soft, tenderness (Tenderness palpation of the right lower quadrant right flank region no overt guarding or rebound masses or bruits), normal bowel sounds. Absent: distended, guarding, rebound, rigid Rectal exam: Present: deferred Extremities exam: Present: normal inspection, full ROM, normal capillary refill. Absent: tenderness, pedal edema, joint swelling, calf tenderness Back exam: Present: normal inspection Neurological exam: Present: alert, oriented X3, CN II-XII intact Psychiatric exam: Present: normal affect, normal mood Skin exam: Present: warm, dry, intact, normal color. Absent: rash Course Vital Signs 01/05/22 15:55 Temperature 97.8 F Pulse Rate 87 Respiratory 20 Rate Blood Pressure 126/69 O2 Sat by Pulse 99 Oximetry Medical Decision Making - Medical Decision Making I did discuss findings with the patient and her daughter. Patient will be admitted case was discussed with Dr. Chairez. IV hydration pelvic and renal ultrasound continue with IV antibiotics - Lab Data Result diagrams: 01/05/22 17:31 01/05/22 17:31 Lab Results 01/05/22 01/05/22 01/05/22 Range/Units 17:31 17:31 17:31 WBC 8.1 (3.8-10.6) k/uL RBC 4.88 (3.80-5.40) m/uL Hgb 15.0 (11.4-16.0) gm/dL Hct 44.7 (34.0-46.0) % MCV 91.6 (80.0-100.0) fL MCH 30.8 (25.0-35.0) pg MCHC 33.6 (31.0-37.0) g/dL RDW 14.2 (11.5-15.5) % Plt Count 229 (150-450) k/uL MPV 8.6 Neutrophils % 63 % Lymphocytes % 24 % Monocytes % 8 % Eosinophils % 4 % Basophils % 1 % Neutrophils # 5.1 (1.3-7.7) k/uL Lymphocytes # 2.0 (1.0-4.8) k/uL Monocytes # 0.6 (0-1.0) k/uL Eosinophils # 0.3 (0-0.7) k/uL Basophils # 0.0 (0-0.2) k/uL Sodium 137 (137-145) mmol/L Potassium 4.7 (3.5-5.1) mmol/L Chloride 99 (98-107) mmol/L Carbon Dioxide 25 (22-30) mmol/L Anion Gap 13 mmol/L BUN 18 H (7-17) mg/dL Creatinine 0.52 (0.52-1.04) mg/dL Est GFR (CKD-EPI)AfAm >90 (>60 ml/min/1.73 sqM) Est GFR (CKD-EPI)NonAf >90 (>60 ml/min/1.73 sqM) Glucose 163 H (74-99) mg/dL Plasma Lactic Acid Jeremy 2.0 (0.7-2.0) mmol/L Calcium 10.3 H (8.4-10.2) mg/dL Total Bilirubin 0.5 (0.2-1.3) mg/dL AST 22 (14-36) U/L ALT 22 (4-34) U/L Alkaline Phosphatase 134 H (38-126) U/L Troponin I (0.000-0.034) ng/mL Total Protein 7.0 (6.3-8.2) g/dL Albumin 4.6 (3.5-5.0) g/dL Amylase 37 (30-110) U/L Lipase 109 (23-300) U/L 01/05/22 Range/Units 17:31 WBC (3.8-10.6) k/uL RBC (3.80-5.40) m/uL Hgb (11.4-16.0) gm/dL Hct (34.0-46.0) % MCV (80.0-100.0) fL MCH (25.0-35.0) pg MCHC (31.0-37.0) g/dL RDW (11.5-15.5) % Plt Count (150-450) k/uL MPV Neutrophils % % Lymphocytes % % Monocytes % % Eosinophils % % Basophils % % Neutrophils # (1.3-7.7) k/uL Lymphocytes # (1.0-4.8) k/uL Monocytes # (0-1.0) k/uL Eosinophils # (0-0.7) k/uL Basophils # (0-0.2) k/uL Sodium (137-145) mmol/L Potassium (3.5-5.1) mmol/L Chloride (98-107) mmol/L Carbon Dioxide (22-30) mmol/L Anion Gap mmol/L BUN (7-17) mg/dL Creatinine (0.52-1.04) mg/dL Est GFR (CKD-EPI)AfAm (>60 ml/min/1.73 sqM) Est GFR (CKD-EPI)NonAf (>60 ml/min/1.73 sqM) Glucose (74-99) mg/dL Plasma Lactic Acid Jeremy (0.7-2.0) mmol/L Calcium (8.4-10.2) mg/dL Total Bilirubin (0.2-1.3) mg/dL AST (14-36) U/L ALT (4-34) U/L Alkaline Phosphatase (38-126) U/L Troponin I <0.012 (0.000-0.034) ng/mL Total Protein (6.3-8.2) g/dL Albumin (3.5-5.0) g/dL Amylase (30-110) U/L Lipase (23-300) U/L - Radiology Data Radiology results: report reviewed (Imaging reviewed as well as reports nonspecific bowel gas pattern evidence of increased stool burden please see the complete report), image reviewed Disposition Clinical Impression: Urinary tract infection, Failure to thrive, Abdominal pain, Dehydration, Failur e of outpatient treatment Disposition: ADMITTED IP TO THIS HOSP Condition: Fair Referrals: Fernando Chairez MD [Primary Care Provider] - 1-2 days Decision Date: 01/05/22 Decision Time: 18:45
[2022-01-05 17:48] LABS: Basophils % (A) 1 %; Eosinophils # (A) 0.3 k/uL (0-0.7); Eosinophils % (A) 4 %; HCT 44.7 % (34.0-46.0); Lymphocytes % (A) 24 %; MCH 30.8 pg (25.0-35.0); MCHC 33.6 g/dL (31.0-37.0); MCV 91.6 fL (80.0-100.0); Mean Platelet Volume 8.6; Monocytes # (A) 0.6 k/uL (0-1.0); Monocytes % (A) 8 %; Neutrophils # (A) 5.1 k/uL (1.3-7.7); Neutrophils % (A) 63 %; Platelet Count 229 k/uL (150-450); RBC 4.88 m/uL (3.80-5.40); RDW 14.2 % (11.5-15.5); WBC 8.1 k/uL (3.8-10.6)
[2022-01-05 17:55] LABS: ALT 22 U/L (4-34); AST 22 U/L (14-36); African American GFR (CKD) >90 (>60 ml/min/1.73 sqM); Albumin 4.6 g/dL (3.5-5.0); Alkaline Phosphatase 134 U/L (38-126); Amylase 37 U/L (30-110); Anion Gap 13 mmol/L; Blood Urea Nitrogen 18 mg/dL (7-17); Calcium 10.3 mg/dL (8.4-10.2); Carbon Dioxide 25 mmol/L (22-30); Chloride 99 mmol/L (98-107); Glucose 163 mg/dL (74-99); Lipase 109 U/L (23-300); Non-African American GFR(CKD) >90 (>60 ml/min/1.73 sqM); Potassium 4.7 mmol/L (3.5-5.1); Sodium 137 mmol/L (137-145); Total Bilirubin 0.5 mg/dL (0.2-1.3)
--- NOTE | 2022-01-05 18:24 | XR ---
EXAMINATION TYPE: XR KUB - 2V DATE OF EXAM: 01/05/2022 5:45 PM CLINICAL HISTORY: Abdominal pain, right TECHNIQUE: 2 upright views COMPARISON: None. FINDINGS: Scattered gas is seen in non-distended small bowel loops. Gas and fecal material is seen in non-distended colon. There is no visceromegaly, pneumoperitoneum, or abnormal calcification apprecia sandy. The lung bases are clear and the osseous structures are intact. IMPRESSION: No acute radiographic process. However, prominent pancolonic stool volume noted, particularly in the rectosigmoid.
[2022-01-05] MEDS ORDERED: NALOXONE 0.4 MG/ML 1 ML VIAL IV PRN (19:07)
[2022-01-05] MEDS ORDERED: ONDANSETRON 4 MG/2 ML VIAL IVP PRN (19:07)
[2022-01-05] MEDS ORDERED: methocarbamoL 750 MG TAB PO PRN (19:08)
[2022-01-05] MEDS ORDERED: NITROGLYCERIN SL TABS 0.4 MG TAB SUBLINGUAL PRN (19:08)
[2022-01-05] MEDS ORDERED: LOPERAMIDE 2 MG CAP PO PRN (19:08)
[2022-01-05 19:09] LABS: Appearance,Urine Clear (Clear); Bilirubin,Urine Negative (Negative); Blood,Urine Negative (Negative); Color,Urine Light Yellow; Glucose,Urine (UA) Trace (Negative); Ketones,Urine Negative (Negative); Leukocyte Esterase,Urine Large (Negative); Mucus,Urine Rare /hpf; Nitrite,Urine Negative (Negative); Protein,Urine Negative (Negative); RBC,Urine 2 /hpf (0-5); Specific Gravity,Urine 1.008 (1.001-1.035); Squamous Epithelial Cell,Urine 3 /hpf (0-4); Urobilinogen,Urine <2.0 mg/dL (<2.0); WBC,Urine 8 /hpf (0-5)
[2022-01-05] MEDS ORDERED: ALPRAZolam 0.25 MG TAB PO PRN (19:10)
[2022-01-05] MEDS ORDERED: DEXTROSE 50% SYRINGE 50 ML IVP PRN ×2 (19:14)
[2022-01-05] MEDS: HYDROmorphone 0.5 MG/0.5 ML SYRINGE IVP PRN ×2 (19:49→22:06)
[2022-01-05] MEDS ORDERED: SYMBICORT 160-4.5 MCG INHALER INHALATION SCH (20:00)
[2022-01-05] MEDS: INSULIN ASPART (NovoLOG) 100 UNIT/ML VIAL SQ SCH (21:21)
[2022-01-05 21:32] LABS: Glucose,Whole Blood 145 mg/dL (70-110)
[2022-01-05] MEDS: MELATONIN 3 MG TABLET PO SCH (21:57)
[2022-01-05] MEDS: traZODone HCL 50 MG TAB PO SCH (21:58)
[2022-01-05] MEDS: ATORVASTATIN 40 MG TAB PO SCH (21:58)
[2022-01-05] MEDS: SODIUM CHLORIDE 0.9% 1,000 ML IV SCH (22:00)
[2022-01-06] MEDS: CEFDINIR 300 MG CAP PO SCH ×2 (05:12→07:47)
[2022-01-06] MEDS: HYDROmorphone 0.5 MG/0.5 ML SYRINGE IVP PRN ×5 (05:53→19:40)
[2022-01-06 07:37] LABS: Glucose,Whole Blood 167 mg/dL (70-110)
[2022-01-06] MEDS: ISOSORBIDE MONONITRATE ER 30 MG TAB.ER.24H PO SCH (07:47)
[2022-01-06] MEDS: INSULIN ASPART (NovoLOG) 100 UNIT/ML VIAL SQ SCH ×4 (07:47→21:19)
[2022-01-06] MEDS: METOPROLOL SUCCINATE (ER) 25 MG TAB.ER.24H PO SCH (07:47)
[2022-01-06] MEDS: ASPIRIN 81 MG PO SCH (07:47)
[2022-01-06] MEDS: DOCUSATE 100 MG CAP PO SCH (07:48)
[2022-01-06] MEDS ORDERED: lisinopriL 5 MG TAB PO SCH (09:00)
[2022-01-06] MEDS: PANTOPRAZOLE 40 MG/10 ML VIAL IV SCH (09:33)
[2022-01-06] MEDS ORDERED: LACTULOSE 20 GM/30 ML CUP PO ONE (10:49)
[2022-01-06] MEDS ORDERED: ENOXAPARIN 40 MG/0.4 ML SYRINGE SQ STA (11:10)
--- NOTE | 2022-01-06 11:11 | P.HPIM ---
History of Present Illness H&P Date: 01/06/22 Chief Complaint: UTI failed outpatient treatment abdominal pain This is 71-year-old female patient who presented with concerns of ongoing abdominal and flank pain for 2 weeks. She was getting treated outpatient for urinary tract infection. Patient also presented to the ER last week in which CT of the abdomen was completed showing no acute abnormality in the abdomen and p jorge no adverse change compared to old exam. Patient was cleared at that time to return home. Due to ongoing abdominal pain patient will be admitted and started on IV antibiotics. KUB completed showing no acute radiographic process. However prominent fields colonic stool volume noted. Patient will be started on lactulose for constipation.patient does have a past medical history of coronary artery disease, diabetes mellitus, fibromyalgia, GERD, [place], IBS and anxiety. Patient is also an every day smoker. At this time patient will be admitted IV fluids ordered. Patient started on IV antibiotic urine culture ordered. Will also order ultrasound of pelvic and kidney renal bladder. Pain medications ordered for abdominal discomfort. Lab work at this time unremarkable. Patient is currently resting comfortably in bed. Patient denies chest pain or shortness of breath. Patient denies nausea vomiting or diarrhea. Patient denies any urinary burning or frequency Review of Systems Please refer to HPI otherwise unremarkable Past Medical History Past Medical History: Coronary Artery Disease (CAD), Diabetes Mellitus, Fibro myalgia, GERD/Reflux, Myocardial Infarction (DC) Additional Past Medical History / Comment(s): Idiopathic thrombocytopenia purpura, IBS, diverticulitis, hiatal hernia, 2 herniated discs-L3/L4, Restless Leg Syndrome, gastritis, superficial gastric ulcers. nodule on lt lung-Cancer Stg 1 Last Myocardial Infarction Date:: 01/2017 History of Any Multi-Drug Resistant Organisms: None Reported Past Surgical History: Adenoidectomy, Bladder Surgery, Bowel Resection, Cholecystectomy, Heart Catheterization With Stent, Hernia Repair, Hysterectomy, Tonsillectomy Additional Past Surgical History / Comment(s): BLADDER SUSPENSION x 2, breast biopsy x3, bowel resection due to rupture. left upper lobe of lung removed per CA, Past Anesthesia/Blood Transfusion Reactions: No Reported Reaction Additional Past Anesthesia/Blood Transfusion Reaction / Comment(s): Pt received blood in 2005 due to ITP without reaction. Date of Last Stent Placement:: 01/2017 Past Psychological History: Anxiety Additional Psychological History / Comment(s): . Smoking Status: Current every day smoker Past Alcohol Use History: None Reported Additional Past Alcohol Use History / Comment(s): STARTED SMOKING AT AGE 18- SMOKED 1PPD AND QUIT -2017 Past Drug Use History: None Reported - Past Family History Mother Family Medical History: Cancer, Diabetes Mellitus Additional Family Medical History / Comment(s): Father had a defibrillator. He of heart dx in his 80's Father Family Medical History: Diabetes Mellitus Additional Family Medical History / Comment(s): HEART DISEASE Medications and Allergies Home Medications Medication Instructions Recorded Confirmed Type Pantoprazole [Protonix] 40 mg PO DAILY 01/14/17 01/05/22 History HYDROcodone/APAP 10-325MG [[place] 1 tab PO Q6H PRN 08/19/18 01/05/22 History 10-325] traZODone HCL 50 mg PO HS 09/07/18 01/05/22 History Loperamide [Imodium] 2 mg PO TID PRN 01/13/19 01/05/22 History Metoprolol Succinate (ER) [Toprol 25 mg PO DAILY 01/13/19 01/05/22 History XL] Atorvastatin [Lipitor] 40 mg PO HS #30 tab 01/15/19 01/05/22 Rx Fenofibrate [Lofibra] 160 mg PO DAILY #30 tab 01/15/19 01/05/22 Rx Melatonin 3 mg PO HS tablet 01/15/19 01/05/22 Rx rOPINIRole HCL [Requip] 0.25 mg PO TID #21 tablet 07/27/19 01/05/22 Rx Aspirin EC [Ecotrin Low Dose] 81 mg PO DAILY 01/03/21 01/05/22 History Isosorbide Mononitrate ER [Imdur] 30 mg PO DAILY #90 tab 09/15/21 01/05/22 Rx Docusate [Colace] 100 mg PO DAILY #30 capsule 01/01/22 01/05/22 Rx Cefdinir 300 mg PO BID 01/05/22 01/05/22 History Insulin Aspart [NovoLOG Flexpen] See Protocol SQ AC-TID 01/05/22 01/05/22 History Levofloxacin [Levaquin] 500 mg PO DAILY 01/05/22 01/05/22 History Mirabegron [Myrbetriq] 50 mg PO DAILY 01/05/22 01/05/22 History Allergies Allergy/AdvReac Type Severity Reaction Status Date / Time No Known Allergies Allergy Verified 01/05/22 15:57 Physical Exam Vitals: Vital Signs Temp Pulse Pulse Resp BP BP Pulse Ox 01/06/22 08:00 97.4 F L 89 125/51 96 01/06/22 02:00 97.7 F 92 16 119/50 94 L 01/05/22 22:00 98.3 F 80 16 132/86 100 01/05/22 15:55 97.8 F 87 20 126/69 99 Intake and Output 01/05/22 01/06/22 01/06/22 22:59 06:59 14:59 Intake Total 485 Balance 485 Intake: Oral 485 Other: Voiding Method Toilet # Voids 2 Weight 50.802 kg Head normocephalic Neck supple Lungs clear to auscultation bilaterally no wheezing or crackles Heart regular rate and rhythm S1-S2, no rub or gallop Abdomen is soft nontender nondistended positive bowel sounds no hepatosplenomegaly. Right flank pain noted Extremities no edema Neuro alert and orientated to 3 Results CBC & Chem 7: 01/05/22 17:31 01/05/22 17:31 Labs: Abnormal Lab Results - Last 24 Hours (Table) 01/05/22 01/05/22 01/05/22 Range/Units 17:31 17:31 21:20 BUN 18 H (7-17) mg/dL Glucose 163 H (74-99) mg/dL POC Glucose (mg/dL) 145 H (70-110) mg/dL Hemoglobin A1c (0.0-6.0) % Calcium 10.3 H (8.4-10.2) mg/dL Alkaline Phosphatase 134 H (38-126) U/L Urine Glucose (UA) Trace H (Negative) Ur Leukocyte Esterase Large H (Negative) Urine WBC 8 H (0-5) /hpf Urine Mucus Rare H (None) /hpf 01/06/22 01/06/22 Range/Units 07:17 07:36 BUN (7-17) mg/dL Glucose (74-99) mg/dL POC Glucose (mg/dL) 167 H (70-110) mg/dL Hemoglobin A1c 9.7 H (0.0-6.0) % Calcium (8.4-10.2) mg/dL Alkaline Phosphatase (38-126) U/L Urine Glucose (UA) (Negative) Ur Leukocyte Esterase (Negative) Urine WBC (0-5) /hpf Urine Mucus (None) /hpf Assessment and Plan Assessment: 1. Right lower abdomen pain with radiation to back. 2. Urinary tract infection with failed outpatient treatment 3. History of CAD with previous [place] and stent placement 4. Insulin-dependent diabetes mellitus 5. History of essential hypertension 6. History of hyperlipidemia 7. History of fibromyalgia 8. Ongoing nicotine dependence. Patient educated greater than 3 minutes on smoking cessation decline nicotine patch at this time 9. Constipation. This was evident on KUB x-ray. Imodium DC'd and lactulose ordered DVT prophylaxis Lovenox. GI prophylaxis Pepcid Urine culture ordered Lactulose ordered Ultrasound of pelvis and renal ordered Repeat labs ordered Time with Patient: Greater than 30 (Greater than 60% of the total time spent in counseling and coordination of care)
[2022-01-06 11:34] LABS: Glucose,Whole Blood 150 mg/dL (70-110)
[2022-01-06 12:47] LABS: Basophils % (A) 0 %; Eosinophils # (A) 0.3 k/uL (0-0.7); Eosinophils % (A) 4 %; HCT 39.9 % (34.0-46.0); HGB 12.9 gm/dL (11.4-16.0); Hypochromasia Slight; Lymphocytes # (A) 1.7 k/uL (1.0-4.8); Lymphocytes % (A) 23 %; MCH 30.6 pg (25.0-35.0); MCHC 32.4 g/dL (31.0-37.0); MCV 94.4 fL (80.0-100.0); Mean Platelet Volume 9.8; Monocytes # (A) 0.6 k/uL (0-1.0); Monocytes % (A) 8 %; Neutrophils # (A) 4.8 k/uL (1.3-7.7); Neutrophils % (A) 63 %; Platelet Count 232 k/uL (150-450); RBC 4.23 m/uL (3.80-5.40); RDW 14.2 % (11.5-15.5); WBC 7.6 k/uL (3.8-10.6)
[2022-01-06 13:08] LABS: ALT 18 U/L (4-34); AST 18 U/L (14-36); African American GFR (CKD) >90 (>60 ml/min/1.73 sqM); Albumin 3.1 g/dL (3.5-5.0); Albumin/Globulin Ratio 1.6; Alkaline Phosphatase 92 U/L (38-126); Anion Gap 6 mmol/L; Blood Urea Nitrogen 11 mg/dL (7-17); Calcium 8.3 mg/dL (8.4-10.2); Carbon Dioxide 27 mmol/L (22-30); Chloride 106 mmol/L (98-107); Glucose 137 mg/dL (74-99); Non-African American GFR(CKD) >90 (>60 ml/min/1.73 sqM); Potassium 4.2 mmol/L (3.5-5.1); Sodium 139 mmol/L (137-145); Total Bilirubin 0.4 mg/dL (0.2-1.3); Total Protein 5.1 g/dL (6.3-8.2)
[2022-01-06] MEDS: SODIUM CHLORIDE 0.9% 1,000 ML IV SCH ×4 (13:31→23:17)
--- NOTE | 2022-01-06 13:45 | US ---
EXAMINATION TYPE: US kidneys/renal and bladder DATE OF EXAM: 01/06/2022 COMPARISON: CT 01/01/2022, 12/06/2021 CLINICAL HISTORY: pain. EXAM MEASUREMENTS: Right Kidney: 10.8 x 4.5 x 5.5 cm Left Kidney: 10.9 x 5.0 x 5.3 cm Right Kidney: Pelvic caliectasis is present, there is a small extrarenal pelvis Left Kidney: cyst measuring 3.8 x 2.8 x 2.6cm appears simple Bladder: wnl Cortical medullary differentiation is maintained.. No nephrolithiasis is seen. No masses are identi fied. The urinary bladder is anechoic. IMPRESSION: Findings of extrarenal pelvis on the right again noted as on CT with some mild hydronephrosis. Simple cyst left kidney.
--- NOTE | 2022-01-06 13:46 | US ---
EXAMINATION TYPE: US pelvic limited DATE OF EXAM: 01/06/2022 COMPARISON: NONE CLINICAL HISTORY: pain. TECHNIQUE: Transabdominal (TA EXAM MEASUREMENTS: Uterus: Surgically absent Endometrial Stripe: Surgically absent Right Ovary: Surgically absent Left Ovary: Surgically absent 1. Uterus: Surgically absent 2. Endometrium: Surgically absent 3. Right Ovary: Surgically absent 4. Left Ovary: Surgically absent 5. Bilateral Adnexa: wnl 6. Posterior cul-de-sac: wnl IMPRESSION: Postop changes.
[2022-01-06 16:32] LABS: Glucose,Whole Blood 143 mg/dL (70-110)
[2022-01-06] MEDS: NON FORMULARY DRUG (Mirabegron [Myrbetriq] 25 MG Tab.Er.24h) PO SCH (19:19)
[2022-01-06 20:46] LABS: Glucose,Whole Blood 102 mg/dL (70-110)
[2022-01-06] MEDS: MELATONIN 3 MG TABLET PO SCH (20:50)
[2022-01-06] MEDS: ATORVASTATIN 40 MG TAB PO SCH (20:50)
[2022-01-06] MEDS: traZODone HCL 50 MG TAB PO SCH (21:22)
[2022-01-07] MEDS: HYDROmorphone 0.5 MG/0.5 ML SYRINGE IVP PRN ×5 (03:59→22:26)
[2022-01-07 04:02] LABS: Glucose,Whole Blood 151 mg/dL (70-110)
[2022-01-07 07:02] LABS: Glucose,Whole Blood 146 mg/dL (70-110)
[2022-01-07 08:52] LABS: Basophils # (A) 0.03 X 10*3/uL (0.00-0.10); Basophils % (A) 0.4 %; Eosinophils # (A) 0.12 X 10*3/uL (0.04-0.35); Eosinophils % (A) 1.5 %; HCT 35.4 % (37.2-46.3); HGB 11.7 g/dL (12.0-15.0); Immature Grans, Automated 0.3 %; Lymphocytes # (A) 1.23 X 10*3/uL (0.90-5.00); Lymphocytes % (A) 15.5 %; MCH 29.4 pg (27.0-32.0); MCHC 33.1 g/dL (32.0-37.0); MCV 88.9 fL (80.0-97.0); Monocytes % (A) 11.4 %; NRBC Per 100 WBC 0 /100 WBCS (0.0-0.0); Neutrophils # (A) 5.61 X 10*3/uL (1.80-7.70); Neutrophils % (A) 70.9 %; Platelet Count 228 X 10*3/uL (140-440); RBC 3.98 X 10*6/uL (4.10-5.20); RDW 14.6 % (11.5-14.5); WBC 7.91 X 10*3/uL (4.50-10.00)
[2022-01-07 09:03] LABS: African American GFR (CKD) 114.5 (60.0-200.0); Albumin 3.2 g/dL (3.8-4.9); Albumin/Globulin Ratio 2.05 (1.60-3.17); Anion Gap 8.7 mmol/L (10.00-18.00); BUN/Creat Ratio 10.57 Ratio (12.00-20.00); Blood Urea Nitrogen 4.9 mg/dL (9.0-27.0); Calcium 8.3 mg/dL (8.7-10.3); Carbon Dioxide 24.3 mmol/L (20.0-27.5); Globulin 1.6 g/dL (1.6-3.3); Non-African American GFR(CKD) 98.8 (60.0-200.0); Potassium 3.9 mmol/L (3.5-5.5); Total Bilirubin 0.3 mg/dL (0.30-1.20); Total Protein 4.8 g/dL (6.2-8.2)
[2022-01-07] MEDS: INSULIN ASPART (NovoLOG) 100 UNIT/ML VIAL SQ SCH ×4 (09:56→23:11)
[2022-01-07] MEDS: PANTOPRAZOLE 40 MG/10 ML VIAL IV SCH (09:57)
[2022-01-07] MEDS: METOPROLOL SUCCINATE (ER) 25 MG TAB.ER.24H PO SCH (09:57)
[2022-01-07] MEDS: DOCUSATE 100 MG CAP PO SCH (09:57)
[2022-01-07] MEDS: ISOSORBIDE MONONITRATE ER 30 MG TAB.ER.24H PO SCH (09:57)
[2022-01-07] MEDS: FAMOTIDINE 20 MG TAB PO SCH (09:57)
[2022-01-07] MEDS: SODIUM CHLORIDE 0.9% 1,000 ML IV SCH ×2 (10:03→12:33)
[2022-01-07 11:56] LABS: Glucose,Whole Blood 168 mg/dL (70-110)
--- NOTE | 2022-01-07 12:40 | P.PN ---
Subjective Progress Note Date: 01/07/22 This is 71-year-old female patient who presented with concerns of ongoing abdominal and flank pain for 2 weeks. She was getting treated outpatient for urinary tract infection. Patient also presented to the ER last week in which CT of the abdomen was completed showing no acute abnormality in the abdomen and pelvis no adverse change compared to old exam. Patient was cleared at that time to return home. Due to ongoing abdominal pain patient will be admitted and started on IV antibiotics. KUB completed showing no acute radiographic process. However prominent fields colonic stool volume noted. Patient will be started on lactulose for constipation.patient does have a past medical history of coronary artery disease, diabetes mellitus, fibromyalgia, GERD, [place], IBS and anxiety. Patient is also an every day smoker. At this time patient will be admitted IV fluids ordered. Patient started on IV antibiotic urine culture ordered. Will also order ultrasound of pelvic and kidney renal bladder. Pain medications ordered for abdominal discomfort. Lab work at this time unremarkable. Patient is currently resting comfortably in bed. Patient denies chest pain or shortness of breath. Patient denies nausea vomiting or diarrhea. Patient denies any urinary burning or frequency. Objective - Vital Signs Vital signs: Vital Signs Temp 98.8 F 01/07/22 07:41 Pulse 72 01/07/22 07:41 Resp 18 01/07/22 07:41 BP 128/65 01/07/22 07:41 Pulse Ox 95 01/07/22 07:41 FiO2 Intake & Output 01/06/22 01/07/22 01/07/22 18:59 06:59 18:59 Intake Total 450 1560 Balance 450 1560 Intake: Intake, IV Titration 1560 Amount Sodium Chloride 0.9% 1, 1560 000 ml @ 130 mls/hr IV . [id number] [facility] Rx#:[id number] Oral 450 Other: # Voids 3 - Exam In general patient is alert and oriented x 3 in no distress HEENT head normocephalic and atraumatic Neck is supple no JVD no goiter no lymphadenopathy no carotid bruit Chest examination is clear to auscultation no crackles no wheezing Cardiac exam reveals regular heart sounds S1 and S2 no gallops no murmurs Abdomen is soft with tenderness in the right lower quadrant and right lung Extremity exam reveals no edema no cyanosis or clubbing Neurological examination reveals no gross focal deficits - Labs CBC & Chem 7: 01/07/22 05:58 01/07/22 05:58 Labs: Abnormal Lab Results - Last 24 Hours (Table) 01/06/22 01/06/22 01/07/22 Range/Units 07:17 16:31 04:00 RBC (4.10-5.20) X 10*6/uL Hgb (12.0-15.0) g/dL Hct (37.2-46.3) % RDW (11.5-14.5) % Anion Gap (10.00-18.00) mmol/L BUN (9.0-27.0) mg/dL Creatinine 0.51 L (0.52-1.04) mg/dL BUN/Creatinine Ratio (12.00-20.00) Ratio Glucose 137 H (74-99) mg/dL POC Glucose (mg/dL) 143 H 151 H (70-110) mg/dL Calcium 8.3 L (8.4-10.2) mg/dL Total Protein 5.1 L (6.3-8.2) g/dL Albumin 3.1 L (3.5-5.0) g/dL 01/07/22 01/07/22 01/07/22 Range/Units 05:58 05:58 07:00 RBC 3.98 L (4.10-5.20) X 10*6/uL Hgb 11.7 L (12.0-15.0) g/dL Hct 35.4 L (37.2-46.3) % RDW 14.6 H (11.5-14.5) % Anion Gap 8.70 L (10.00-18.00) mmol/L BUN 4.9 L (9.0-27.0) mg/dL Creatinine 0.5 L (0.52-1.04) mg/dL BUN/Creatinine Ratio 10.57 L (12.00-20.00) Ratio Glucose 162 H (74-99) mg/dL POC Glucose (mg/dL) 146 H (70-110) mg/dL Calcium 8.3 L (8.4-10.2) mg/dL Total Protein 4.8 L (6.3-8.2) g/dL Albumin 3.2 L (3.5-5.0) g/dL 01/07/22 Range/Units 11:54 RBC (4.10-5.20) X 10*6/uL Hgb (12.0-15.0) g/dL Hct (37.2-46.3) % RDW (11.5-14.5) % Anion Gap (10.00-18.00) mmol/L BUN (9.0-27.0) mg/dL Creatinine (0.52-1.04) mg/dL BUN/Creatinine Ratio (12.00-20.00) Ratio Glucose (74-99) mg/dL POC Glucose (mg/dL) 168 H (70-110) mg/dL Calcium (8.4-10.2) mg/dL Total Protein (6.3-8.2) g/dL Albumin (3.5-5.0) g/dL Microbiology - Last 24 Hours (Table) 01/06/22 17:00 Urine Culture - Preliminary Urine,Voided 01/05/22 17:18 Blood Culture - Preliminary Blood No Growth after 24 hours 01/05/22 15:33 Blood Culture - Preliminary Blood No Growth after 24 hours Assessment and Plan Assessment: 1. Right lower abdomen pain with radiation to back. Cause is unclear Will consult urology regarding abnormal finding on kidney ultrasound 2. Urinary tract infection with failed outpatient treatment 3. History of CAD with previous [place] and stent placement 4. Insulin-dependent diabetes mellitus 5. History of essential hypertension 6. History of hyperlipidemia 7. History of fibromyalgia 8. Ongoing nicotine dependence. Patient educated greater than 3 minutes on sm oking cessation decline nicotine patch at this time 9. Constipation. This was evident on KUB x-ray. Imodium DC'd and lactulose ordered DVT prophylaxis Lovenox. GI prophylaxis Pepcid Urine culture ordered Lactulose ordered Ultrasound of pelvis and renal ordered Repeat labs ordered
[2022-01-07 16:38] LABS: Glucose,Whole Blood 146 mg/dL (70-110)
[2022-01-07 16:43] VITALS: BMI 20.5
[2022-01-07] MEDS: NON FORMULARY DRUG (Mirabegron [Myrbetriq] 25 MG Tab.Er.24h) PO SCH (17:58)
[2022-01-07 19:46] LABS: Glucose,Whole Blood 185 mg/dL (70-110)
[2022-01-07] MEDS: ATORVASTATIN 40 MG TAB PO SCH (22:27)
[2022-01-07] MEDS: MELATONIN 3 MG TABLET PO SCH (22:27)
[2022-01-07] MEDS: traZODone HCL 50 MG TAB PO SCH (22:27)
[2022-01-08 07:02] LABS: Glucose,Whole Blood 124 mg/dL (70-110)
[2022-01-08 09:09] LABS: African American GFR (CKD) 119.8 (60.0-200.0); Albumin 3.1 g/dL (3.8-4.9); Albumin/Globulin Ratio 1.82 (1.60-3.17); Anion Gap 6.8 mmol/L (10.00-18.00); BUN/Creat Ratio 7.25 Ratio (12.00-20.00); Blood Urea Nitrogen 2.9 mg/dL (9.0-27.0); Calcium 8.3 mg/dL (8.7-10.3); Carbon Dioxide 25.2 mmol/L (20.0-27.5); Globulin 1.7 g/dL (1.6-3.3); Non-African American GFR(CKD) 103.3 (60.0-200.0); Potassium 3.5 mmol/L (3.5-5.5); Total Bilirubin 0.2 mg/dL (0.30-1.20); Total Protein 4.8 g/dL (6.2-8.2)
[2022-01-08 09:21] LABS: Basophils # (A) 0.04 X 10*3/uL (0.00-0.10); Basophils % (A) 0.6 %; Eosinophils # (A) 0.22 X 10*3/uL (0.04-0.35); Eosinophils % (A) 3.4 %; HCT 34.2 % (37.2-46.3); HGB 11.3 g/dL (12.0-15.0); Immature Grans, Automated 0.3 %; Lymphocytes # (A) 1.64 X 10*3/uL (0.90-5.00); Lymphocytes % (A) 25.3 %; MCH 29.4 pg (27.0-32.0); MCV 88.8 fL (80.0-97.0); Monocytes # (A) 0.91 X 10*3/uL (0.20-1.00); NRBC Per 100 WBC 0 /100 WBCS (0.0-0.0); Neutrophils # (A) 3.66 X 10*3/uL (1.80-7.70); Neutrophils % (A) 56.4 %; Platelet Count 226 X 10*3/uL (140-440); RBC 3.85 X 10*6/uL (4.10-5.20); RDW 14.4 % (11.5-14.5); WBC 6.49 X 10*3/uL (4.50-10.00)
[2022-01-08] MEDS: HYDROmorphone 0.5 MG/0.5 ML SYRINGE IVP PRN ×4 (10:04→21:36)
[2022-01-08] MEDS: SODIUM CHLORIDE 0.9% 1,000 ML IV SCH ×2 (10:04→10:06)
--- NOTE | 2022-01-08 10:14 | P.PN ---
Subjective Progress Note Date: 01/08/22 This is 71-year-old female patient who presented with concerns of ongoing abdominal and flank pain for 2 weeks. She was getting treated outpatient for urinary tract infection. Patient also presented to the ER last week in which CT of the abdomen was completed showing no acute abnormality in the abdomen and pelvis no adverse change compared to old exam. Patient was cleared at that time to return home. Due to ongoing abdominal pain patient will be admitted and started on IV antibiotics. KUB completed showing no acute radiographic process. However prominent fields colonic stool volume noted. Patient will be started on lactulose for constipation.patient does have a past medical history of coronary artery disease, diabetes mellitus, fibromyalgia, GERD, [place], IBS and anxiety. Patient is also an every day smoker. At this time patient will be admitted IV fluids ordered. Patient started on IV antibiotic urine culture ordered. Will also order ultrasound of pelvic and kidney renal bladder. Pain medications ordered for abdominal discomfort. Lab work at this time unremarkable. Patient is currently resting comfortably in bed. Patient denies chest pain or shortness of breath. Patient denies nausea vomiting or diarrhea. Patient denies any urinary burning or frequency. On 01/08/2022 patient's alert and oriented 3. Patient still complaining of ongoing pain. Awaiting urology input due to mild hydronephrosis seen on ultrasound. Fluids DC'd. Patient remains on IV Rocephin. Current vital signs temp 97.5, heart rate 72, respiratory rate 18 with blood pressure 114/67 Objective - Vital Signs Vital signs: Vital Signs Temp 96.8 F L 01/08/22 08:00 Pulse 75 01/08/22 08:00 Resp 20 01/08/22 08:00 BP 130/70 01/08/22 08:00 Pulse Ox 95 01/08/22 08:00 FiO2 Intake & Output 01/07/22 01/08/22 01/08/22 18:59 06:59 18:59 Intake Total 2160 Balance 2160 Weight 50.802 kg Intake: Oral 2160 Other: Voiding Method Toilet # Voids 3 2 - Exam In general patient is alert and oriented x 3 in no distress HEENT head normocephalic and atraumatic Neck is supple no JVD no goiter no lymphadenopathy no carotid bruit Chest examination is clear to auscultation no crackles no wheezing Cardiac exam reveals regular heart sounds S1 and S2 no gallops no murmurs Abdomen is soft with tenderness in the right lower quadrant and right lung Extremity exam reveals no edema no cyanosis or clubbing Neurological examination reveals no gross focal deficits - Labs CBC & Chem 7: 01/08/22 04:23 01/08/22 04:23 Labs: Abnormal Lab Results - Last 24 Hours (Table) 01/07/22 01/07/22 01/07/22 Range/Units 11:54 16:37 19:45 RBC (4.10-5.20) X 10*6/uL Hgb (12.0-15.0) g/dL Hct (37.2-46.3) % Anion Gap (10.00-18.00) mmol/L BUN (9.0-27.0) mg/dL Creatinine (0.6-1.5) mg/dL BUN/Creatinine Ratio (12.00-20.00) Ratio POC Glucose (mg/dL) 168 H 146 H 185 H (70-110) mg/dL Calcium (8.7-10.3) mg/dL Total Bilirubin (0.30-1.20) mg/dL Total Protein (6.2-8.2) g/dL Albumin (3.8-4.9) g/dL 01/08/22 01/08/22 01/08/22 Range/Units 04:23 04:23 07:01 RBC 3.85 L (4.10-5.20) X 10*6/uL Hgb 11.3 L (12.0-15.0) g/dL Hct 34.2 L (37.2-46.3) % Anion Gap 6.80 L (10.00-18.00) mmol/L BUN 2.9 L (9.0-27.0) mg/dL Creatinine 0.4 L (0.6-1.5) mg/dL BUN/Creatinine Ratio 7.25 L (12.00-20.00) Ratio POC Glucose (mg/dL) 124 H (70-110) mg/dL Calcium 8.3 L (8.7-10.3) mg/dL Total Bilirubin 0.20 L (0.30-1.20) mg/dL Total Protein 4.8 L (6.2-8.2) g/dL Albumin 3.1 L (3.8-4.9) g/dL Microbiology - Last 24 Hours (Table) 01/06/22 17:00 Urine Culture - Final Urine,Voided 01/05/22 17:18 Blood Culture - Preliminary Blood No Growth after 48 hours 01/05/22 15:33 Blood Culture - Preliminary Blood No Growth after 48 hours Assessment and Plan Assessment: 1. Right lower abdomen pain with radiation to back. Cause is unclear Will consult urology regarding abnormal finding on kidney ultrasound 2. Urinary tract infection with failed outpatient treatment 3. History of CAD with previous [place] and stent placement 4. Insulin-dependent diabetes mellitus 5. History of essential hypertension 6. History of hyperlipidemia 7. History of fibromyalgia 8. Ongoing nicotine dependence. Patient educated greater than 3 minutes on smoking cessation decline nicotine patch at this time 9. Constipation. This was evident on KUB x-ray. Imodium DC'd and lactulose ordered 10. Mild hydronephrosis noted on ultrasound. Urology service is consulted DVT prophylaxis Lovenox. GI prophylaxis Pepcid Urine culture ordered Urology services consulted Repeat labs ordered Pelvic ultrasound negative
--- NOTE | 2022-01-08 11:34 | P.GSCN ---
History of Present Illness Consult date: 01/08/22 History of present illness: 71 yo female in the hospital with back pain. We are asked to see for possible kidney cause of this backpain. She recently had a e coli uti. HEr wbc are l. Her urine at this point doesnt look too inflammed. She had a ct scan recently shoeing some tiny stones, non obstructing inn the right kidney She recently had a renal us showing an extrarenal pelvis[ normal anatomical variation]. In discussing with the patient the pain is in the right hip radiating in the right groin she has pain when she lies on the right hip. It makes it difficult for her to stand and walk. The patient does have problems with incomplete bladder emptying has had to periodically catheterize herself. She has no problems doing that. Review of Systems All systems: negative - Constitutional Denies fever, Denies weight loss - EENT Eyes: denies blurred vision Ears, nose, mouth and throat: Denies dysphagia - Cardiovascular Denies chest pain, Denies shortness of breath - Respiratory Denies cough, Denies 7 - Gastrointestinal Reports as per HPI - Genitourinary Genitourinary: Denies dysuria, Denies hematuria - Integumentary Denies rash, Denies unusual bruising - Neurological Denies headaches, Denies syncope - Hematologic/Lymphatic Denies easy bleeding, Denies easy bruising Past Medical History Past Medical History: Coronary Artery Disease (CAD), Diabetes Mellitus, Fibromyalgia, GERD/Reflux, Myocardial Infarction ([place]) Additional Past Medical History / Comment(s): Idiopathic thrombocytopenia purpura, IBS, diverticulitis, hiatal hernia, 2 herniated discs-L3/L4, Restless Leg Syndrome, gastritis, superficial gastric ulcers. nodule on lt lung-Cancer Stg 1 Last Myocardial Infarction Date:: 01/2017 History of Any Multi-Drug Resistant Organisms: None Reported Past Surgical History: Adenoidectomy, Bladder Surgery, Bowel Resection, Cholecystectomy, Heart Catheterization With Stent, Hernia Repair, Hysterectomy, Tonsillectomy Additional Past Surgical History / Comment(s): BLADDER SUSPENSION x 2, breast biopsy x3, bowel resection due to rupture. left upper lobe of lung removed per [place], Past Anesthesia/Blood Transfusion Reactions: No Reported Reaction Additional Past Anesthesia/Blood Transfusion Reaction / Comm: Pt received blood in 2005 due to ITP without reaction. Date of Last Stent Placement:: 01/2017 Past Psychological History: Anxiety Additional Psychological History / Comment(s): . Smoking Status: Current every day smoker Past Alcohol Use History: None Reported Additional Past Alcohol Use History / Comment(s): STARTED SMOKING AT AGE 18- SMOKED 1PPD AND QUIT -2017 Past Drug Use History: None Reported - Past Family History Mother Family Medical History: Cancer, Diabetes Mellitus Additional Family Medical History / Comment(s): Father had a defibrillator. He of heart dx in his 80's Father Family Medical History: Diabetes Mellitus Additional Family Medical History / Comment(s): HEART DISEASE Medications and Allergies Home Medications Medication Instructions Recorded Confirmed Type Pantoprazole [Protonix] 40 mg PO DAILY 01/14/17 01/05/22 History HYDROcodone/APAP 10-325MG [[place] 1 tab PO Q6H PRN 08/19/18 01/05/22 History 10-325] traZODone HCL 50 mg PO HS 09/07/18 01/05/22 History Loperamide [Imodium] 2 mg PO TID PRN 01/13/19 01/05/22 History Metoprolol Succinate (ER) [Toprol 25 mg PO DAILY 01/13/19 01/05/22 History XL] Atorvastatin [Lipitor] 40 mg PO HS #30 tab 01/15/19 01/05/22 Rx Fenofibrate [Lofibra] 160 mg PO DAILY #30 tab 01/15/19 01/05/22 Rx Melatonin 3 mg PO HS tablet 01/15/19 01/05/22 Rx rOPINIRole HCL [Requip] 0.25 mg PO TID #21 tablet 07/27/19 01/05/22 Rx Aspirin EC [Ecotrin Low Dose] 81 mg PO DAILY 01/03/21 01/05/22 History Isosorbide Mononitrate ER [Imdur] 30 mg PO DAILY #90 tab 09/15/21 01/05/22 Rx Docusate [Colace] 100 mg PO DAILY #30 capsule 01/01/22 01/05/22 Rx Cefdinir 300 mg PO BID 01/05/22 01/05/22 History Insulin Aspart [NovoLOG Flexpen] See Protocol SQ AC-TID 01/05/22 01/05/22 History Levofloxacin [Levaquin] 500 mg PO DAILY 10/13/22 10/13/22 History Mirabegron [Myrbetriq] 50 mg PO DAILY 01/05/22 01/05/22 History Allergies Allergy/AdvReac Type Severity Reaction Status Date / Time No Known Allergies Allergy Verified 01/05/22 15:57 Surgical - Exam Vital Signs Temp Pulse Resp BP Pulse Ox 97.8 F 87 20 126/69 99 01/05/22 15:55 01/05/22 15:55 01/05/22 15:55 01/05/22 15:55 01/05/22 15:55 - General well developed, well nourished, moderate distress - Eyes PERRL - ENT no hearing loss - Neck trachea midline - Respiratory normal expansion, normal respiratory effort - Cardiovascular Rhythm: regular - Abdomen Abdomen: soft, non tender - Integumentary no rash, no growths - Neurologic normal coordination, normal sensation - Musculoskeletal Pain in the right SI joint area radiating to the right groin - Psychiatric oriented to time, oriented to person, oriented to place, speech is normal, memory intact Results - Labs 01/08/22 04:23 01/08/22 04:23 Abnormal Lab Results - Last 24 Hours (Table) 01/07/22 01/07/22 01/07/22 Range/Units 05:58 05:58 11:54 RBC 3.98 L (4.10-5.20) X 10*6/uL Hgb 11.7 L (12.0-15.0) g/dL Hct 35.4 L (37.2-46.3) % RDW 14.6 H (11.5-14.5) % Anion Gap 8.70 L (10.00-18.00) mmol/L BUN 4.9 L (9.0-27.0) mg/dL Creatinine 0.5 L (0.6-1.5) mg/dL BUN/Creatinine Ratio 10.57 L (12.00-20.00) Ratio Glucose 162 H (70-110) mg/dL POC Glucose (mg/dL) 168 H (70-110) mg/dL Calcium 8.3 L (8.7-10.3) mg/dL Total Protein 4.8 L (6.2-8.2) g/dL Albumin 3.2 L (3.8-4.9) g/dL 01/07/22 01/07/22 01/08/22 Range/Units 16:37 19:45 07:01 RBC (4.10-5.20) X 10*6/uL Hgb (12.0-15.0) g/dL Hct (37.2-46.3) % RDW (11.5-14.5) % Anion Gap (10.00-18.00) mmol/L BUN (9.0-27.0) mg/dL Creatinine (0.6-1.5) mg/dL BUN/Creatinine Ratio (12.00-20.00) Ratio Glucose (70-110) mg/dL POC Glucose (mg/dL) 146 H 185 H 124 H (70-110) mg/dL Calcium (8.7-10.3) mg/dL Total Protein (6.2-8.2) g/dL Albumin (3.8-4.9) g/dL Microbiology - Last 24 Hours (Table) 01/06/22 17:00 Urine Culture - Final Urine,Voided 01/05/22 17:18 Blood Culture - Preliminary Blood No Growth after 48 hours 01/05/22 15:33 Blood Culture - Preliminary Blood No Growth after 48 hours Diabetes panel 01/07/22 Range/Units 05:58 Sodium 139 (135-145) mmol/L Potassium 3.9 (3.5-5.5) mmol/L Chloride 106 (96-109) mmol/L Carbon Dioxide 24.3 (20.0-27.5) mmol/L BUN 4.9 L (9.0-27.0) mg/dL Creatinine 0.5 L (0.6-1.5) mg/dL Glucose 162 H (70-110) mg/dL Calcium 8.3 L (8.7-10.3) mg/dL AST 14 (13-35) U/L ALT 14 (8-44) U/L Alkaline Phosphatase 93 (41-126) U/L Total Protein 4.8 L (6.2-8.2) g/dL Albumin 3.2 L (3.8-4.9) g/dL Calcium panel 01/07/22 Range/Units 05:58 Calcium 8.3 L (8.7-10.3) mg/dL Albumin 3.2 L (3.8-4.9) g/dL Pituitary panel 01/07/22 Range/Units 05:58 Sodium 139 (135-145) mmol/L Potassium 3.9 (3.5-5.5) mmol/L Chloride 106 (96-109) mmol/L Carbon Dioxide 24.3 (20.0-27.5) mmol/L BUN 4.9 L (9.0-27.0) mg/dL Creatinine 0.5 L (0.6-1.5) mg/dL Glucose 162 H (70-110) mg/dL Calcium 8.3 L (8.7-10.3) mg/dL Adrenal panel 01/07/22 Range/Units 05:58 Sodium 139 (135-145) mmol/L Potassium 3.9 (3.5-5.5) mmol/L Chloride 106 (96-109) mmol/L Carbon Dioxide 24.3 (20.0-27.5) mmol/L BUN 4.9 L (9.0-27.0) mg/dL Creatinine 0.5 L (0.6-1.5) mg/dL Glucose 162 H (70-110) mg/dL Calcium 8.3 L (8.7-10.3) mg/dL Total Bilirubin 0.30 (0.30-1.20) mg/dL AST 14 (13-35) U/L ALT 14 (8-44) U/L Alkaline Phosphatase 93 (41-126) U/L Total Protein 4.8 L (6.2-8.2) g/dL Albumin 3.2 L (3.8-4.9) g/dL - Imaging CT scan - abdomen: report reviewed, image reviewed CT scan - pelvis: report reviewed, image reviewed US - kidney/bladder: report reviewed, image reviewed Assessment and Plan Assessment: Impression: Right back and lower abdominal pain probably related to a bad hip. Tiny kidney stones nonsignificant. Extrarenal pelvis on ultrasound also a normal anatomical variation unrelated to her pain Recommendations: There is nothing urologic causing this patient's pain. If further urologic care is required please contact us.
[2022-01-08 12:21] LABS: Glucose,Whole Blood 124 mg/dL (70-110)
[2022-01-08] MEDS: INSULIN ASPART (NovoLOG) 100 UNIT/ML VIAL SQ SCH ×4 (13:12→21:37)
[2022-01-08] MEDS: DOCUSATE 100 MG CAP PO SCH (13:35)
[2022-01-08] MEDS: METOPROLOL SUCCINATE (ER) 25 MG TAB.ER.24H PO SCH (13:35)
[2022-01-08] MEDS: ASPIRIN 81 MG PO SCH (13:35)
[2022-01-08] MEDS: FAMOTIDINE 20 MG TAB PO SCH (13:35)
[2022-01-08] MEDS: ISOSORBIDE MONONITRATE ER 30 MG TAB.ER.24H PO SCH (13:35)
[2022-01-08] MEDS: PANTOPRAZOLE 40 MG/10 ML VIAL IV SCH (13:43)
[2022-01-08 17:09] LABS: Glucose,Whole Blood 206 mg/dL (70-110)
[2022-01-08] MEDS: NON FORMULARY DRUG (Mirabegron [Myrbetriq] 25 MG Tab.Er.24h) PO SCH (17:30)
[2022-01-08 20:28] LABS: Glucose,Whole Blood 169 mg/dL (70-110)
[2022-01-08] MEDS: ATORVASTATIN 40 MG TAB PO SCH (21:37)
[2022-01-08] MEDS: MELATONIN 3 MG TABLET PO SCH (21:37)
[2022-01-08] MEDS: traZODone HCL 50 MG TAB PO SCH (21:37)
[2022-01-09] MEDS: HYDROmorphone 0.5 MG/0.5 ML SYRINGE IVP PRN ×5 (02:16→20:58)
[2022-01-09 07:12] LABS: Glucose,Whole Blood 162 mg/dL (70-110)
[2022-01-09] MEDS: INSULIN ASPART (NovoLOG) 100 UNIT/ML VIAL SQ SCH ×4 (07:31→22:56)
[2022-01-09] MEDS: FAMOTIDINE 20 MG TAB PO SCH (07:31)
[2022-01-09] MEDS: DOCUSATE 100 MG CAP PO SCH (07:31)
[2022-01-09] MEDS: ISOSORBIDE MONONITRATE ER 30 MG TAB.ER.24H PO SCH (07:31)
[2022-01-09] MEDS: METOPROLOL SUCCINATE (ER) 25 MG TAB.ER.24H PO SCH (07:31)
[2022-01-09] MEDS: PANTOPRAZOLE 40 MG/10 ML VIAL IV SCH (07:31)
[2022-01-09] MEDS: ASPIRIN 81 MG PO SCH (07:31)
[2022-01-09 11:40] LABS: Basophils # (A) 0.03 X 10*3/uL (0.00-0.10); Basophils % (A) 0.5 %; Eosinophils % (A) 3.1 %; HCT 36.8 % (37.2-46.3); HGB 11.9 g/dL (12.0-15.0); Immature Grans, Automated 0.3 %; Lymphocytes # (A) 1.81 X 10*3/uL (0.90-5.00); Lymphocytes % (A) 27.8 %; MCH 29.5 pg (27.0-32.0); MCHC 32.3 g/dL (32.0-37.0); MCV 91.3 fL (80.0-97.0); Mean Platelet Volume 11.4 fL (9.5-12.2); Monocytes # (A) 0.88 X 10*3/uL (0.20-1.00); Monocytes % (A) 13.5 %; NRBC Per 100 WBC 0 /100 WBCS (0.0-0.0); Neutrophils # (A) 3.56 X 10*3/uL (1.80-7.70); Neutrophils % (A) 54.8 %; Platelet Count 220 X 10*3/uL (140-440); RBC 4.03 X 10*6/uL (4.10-5.20); RDW 14.4 % (11.5-14.5)
--- NOTE | 2022-01-09 11:40 | XR ---
Right hip HISTORY: Right hip pain 2 views the right hip, correlation CT abdomen pelvis 01/01/2022 Bone mineralization is decreased. Joint spaces and alignment are maintained. No fracture or dislocati on. Surgical clips, suture present within the pelvis. Degenerative disc changes are noted in the lowe r lumbar spine. CT scan shows a disc herniation likely at the L3-4 level with extruded fragment posterior to the righ t of midline at L3, correlate for right L3 radiculopathy. IMPRESSION: Osteopenia and additional findings above. MRI may be of benefit.
[2022-01-09 11:45] LABS: ALT 12 U/L (8-44); AST 12 U/L (13-35); African American GFR (CKD) 106.7 (60.0-200.0); Albumin 3.3 g/dL (3.8-4.9); Albumin/Globulin Ratio 1.96 (1.60-3.17); Alkaline Phosphatase 96 U/L (41-126); BUN/Creat Ratio 11.44 Ratio (12.00-20.00); Blood Urea Nitrogen 6.5 mg/dL (9.0-27.0); Calcium 8.5 mg/dL (8.7-10.3); Carbon Dioxide 23.3 mmol/L (20.0-27.5); Chloride 108 mmol/L (96-109); Globulin 1.7 g/dL (1.6-3.3); Glucose 207 mg/dL (70-110); Non-African American GFR(CKD) 92.1 (60.0-200.0); Potassium 3.7 mmol/L (3.5-5.5); Sodium 139 mmol/L (135-145); Total Bilirubin <0.15 mg/dL (0.30-1.20)
[2022-01-09 11:55] LABS: Glucose,Whole Blood 232 mg/dL (70-110)
[2022-01-09 16:15] LABS: Glucose,Whole Blood 181 mg/dL (70-110)
[2022-01-09] MEDS: NON FORMULARY DRUG (Mirabegron [Myrbetriq] 25 MG Tab.Er.24h) PO SCH (16:43)
--- NOTE | 2022-01-09 17:12 | P.PN ---
Subjective Progress Note Date: 01/09/22 This is 71-year-old female patient who presented with concerns of ongoing abdominal and flank pain for 2 weeks. She was getting treated outpatient for urinary tract infection. Patient also presented to the ER last week in which CT of the abdomen was completed showing no acute abnormality in the abdomen and pelvis no adverse change compared to old exam. Patient was cleared at that time to return home. Due to ongoing abdominal pain patient will be admitted and started on IV antibiotics. KUB completed showing no acute radiographic process. However prominent fields colonic stool volume noted. Patient will be started on lactulose for constipation.patient does have a past medical history of coronary artery disease, diabetes mellitus, fibromyalgia, GERD, [place], IBS and anxiety. Patient is also an every day smoker. At this time patient will be admitted IV fluids ordered. Patient started on IV antibiotic urine culture ordered. Will also order ultrasound of pelvic and kidney renal bladder. Pain medications ordered for abdominal discomfort. Lab work at this time unremarkable. Patient is currently resting comfortably in bed. Patient denies chest pain or shortness of breath. Patient denies nausea vomiting or diarrhea. Patient denies any urinary burning or frequency. On 01/08/2022 patient's alert and oriented 3. Patient still complaining of ongoing pain. Awaiting urology input due to mild hydronephrosis seen on ultrasound. Fluids DC'd. Patient remains on IV Rocephin. Current vital signs temp 97.5, heart rate 72, respiratory rate 18 with blood pressure 114/67 On 01/10/2020 patient was seen and examined on the medical floor she is alert and oriented 3 in no apparent distress she is still complaining of severe intractable pain in the right lower quadrant right flank and right lower back, urology consultation reviewed, no kidney pathology Plan patient intractable pain, x-ray of the right hip was done today, and did not reveal significant abnormality however, an addendum was added to the computed tomography scan of the abdomen and pelvis that was done on 01/01/2022 and mentioned evidence of L3- L4 disc herniation, at this point will continue was pain management, will check MRI of the lumbar spine, will consult Dr. Khanna , will consult pain management, patient informed of findings and is agreeable with current plan. Objective - Vital Signs Vital signs: Vital Signs Temp 98.3 F 01/09/22 14:00 Pulse 64 01/09/22 14:00 Resp 20 01/09/22 14:00 BP 111/67 01/09/22 14:00 Pulse Ox 94 L 01/09/22 14:00 FiO2 Intake & Output 01/08/22 01/09/22 01/09/22 18:59 06:59 18:59 Other: Voiding Method Toilet Toilet # Voids 3 - Exam In general patient is alert and oriented x 3 in no distress HEENT head normocephalic and atraumatic Neck is supple no JVD no goiter no lymphadenopathy no carotid bruit Chest examination is clear to auscultation no crackles no wheezing Cardiac exam reveals regular heart sounds S1 and S2 no gallops no murmurs Abdomen is soft with tenderness in the right lower quadrant and right lung Extremity exam reveals no edema no cyanosis or clubbing Neurological examination reveals no gross focal deficits - Labs CBC & Chem 7: 01/09/22 08:03 01/09/22 08:03 Labs: Abnormal Lab Results - Last 24 Hours (Table) 01/08/22 01/08/22 01/09/22 Range/Units 17:06 20:27 07:11 RBC (4.10-5.20) X 10*6/uL Hgb (12.0-15.0) g/dL Hct (37.2-46.3) % Anion Gap (10.00-18.00) mmol/L BUN (9.0-27.0) mg/dL BUN/Creatinine Ratio (12.00-20.00) Ratio Glucose (70-110) mg/dL POC Glucose (mg/dL) 206 H 169 H 162 H (70-110) mg/dL Calcium (8.7-10.3) mg/dL Total Bilirubin (0.30-1.20) mg/dL AST (13-35) U/L Total Protein (6.2-8.2) g/dL Albumin (3.8-4.9) g/dL 01/09/22 01/09/22 01/09/22 Range/Units 08:03 08:03 11:51 RBC 4.03 L (4.10-5.20) X 10*6/uL Hgb 11.9 L (12.0-15.0) g/dL Hct 36.8 L (37.2-46.3) % Anion Gap 7.20 L (10.00-18.00) mmol/L BUN 6.5 L (9.0-27.0) mg/dL BUN/Creatinine Ratio 11.44 L (12.00-20.00) Ratio Glucose 207 H (70-110) mg/dL POC Glucose (mg/dL) 232 H (70-110) mg/dL Calcium 8.5 L (8.7-10.3) mg/dL Total Bilirubin <0.15 L (0.30-1.20) mg/dL AST 12 L (13-35) U/L Total Protein 5.0 L (6.2-8.2) g/dL Albumin 3.3 L (3.8-4.9) g/dL 01/09/22 Range/Units 16:14 RBC (4.10-5.20) X 10*6/uL Hgb (12.0-15.0) g/dL Hct (37.2-46.3) % Anion Gap (10.00-18.00) mmol/L BUN (9.0-27.0) mg/dL BUN/Creatinine Ratio (12.00-20.00) Ratio Glucose (70-110) mg/dL POC Glucose (mg/dL) 181 H (70-110) mg/dL Calcium (8.7-10.3) mg/dL Total Bilirubin (0.30-1.20) mg/dL AST (13-35) U/L Total Protein (6.2-8.2) g/dL Albumin (3.8-4.9) g/dL Microbiology - Last 24 Hours (Table) 01/05/22 17:18 Blood Culture - Preliminary Blood No Growth after 72 hours 01/05/22 15:33 Blood Culture - Preliminary Blood No Growth after 72 hours Assessment and Plan Assessment: 1. Right lower abdomen pain with radiation to back. Cause is unclear Will consult urology regarding abnormal finding on kidney ultrasound 2. Urinary tract infection with failed outpatient treatment 3. History of CAD with previous [place] and stent placement 4. Insulin-dependent diabetes mellitus 5. History of essential hypertension 6. History of hyperlipidemia 7. History of fibromyalgia 8. Ongoing nicotine dependence. Patient educated greater than 3 minutes on smoking cessation decline nicotine patch at this time 9. Constipation. This was evident on KUB x-ray. Imodium DC'd and lactulose ordered 10. Mild hydronephrosis noted on ultrasound. Urology service is consulted DVT prophylaxis Lovenox. GI prophylaxis Pepcid Urine culture ordered Urology services consulted Repeat labs ordered Pelvic ultrasound negative
--- NOTE | 2022-01-09 18:15 | P.CNOR ---
History of Present Illness - HPI Consult date: 01/09/22 Consult reason: low back pain History of present illness: Patient is a pleasant 71-year-old female who is seen and examined at bedside. She is accompanied by her daughter. The patient's been having pain at her right lower quadrant and toward her back over the past few weeks. The pain also extends down her right thigh anteriorly. She denies weakness. She denies any trauma. She says she has history of frequ ent urinary tract infections and has trouble emptying her bladder. She does occasional straight cathing on her own in the evening and says that she has very regular infections at her bladder. She denies any injury to her lower back. She says that a few to several decades ago she had pain in her back and had to have injections in her back. She says that this feels worse than that. She is not having any problems in her left lower extremity. She denies any weakness in her bilateral lower extremity. She denies any chest pain or shortness of breath. Review of Systems As stated per HPI. She denies any loss of control of her bowel or bladder. She has chronic history of difficulty emptying her bladder fully. She straight cathed at home occasionally. She denies any weakness in her lower extremity. She denies any trauma Past Medical History Past Medical History: Coronary Artery Disease (CAD), Diabetes Mellitus, Fibrom yalgia, GERD/Reflux, Myocardial Infarction ([place]) Additional Past Medical History / Comment(s): Idiopathic thrombocytopenia purpura, IBS, diverticulitis, hiatal hernia, 2 herniated discs-L3/L4, Restless Leg Syndrome, gastritis, superficial gastric ulcers. nodule on lt lung-Cancer Stg 1 Last Myocardial Infarction Date:: 01/2017 History of Any Multi-Drug Resistant Organisms: None Reported Past Surgical History: Adenoidectomy, Bladder Surgery, Bowel Resection, Cholecystectomy, Heart Catheterization With Stent, Hernia Repair, Hysterectomy, Tonsillectomy Additional Past Surgical History / Comment(s): BLADDER SUSPENSION x 2, breast biopsy x3, bowel resection due to rupture. left upper lobe of lung removed per [place], Past Anesthesia/Blood Transfusion Reactions: No Reported Reaction Additional Past Anesthesia/Blood Transfusion Reaction / Comm: Pt received blood in 2005 due to ITP without reaction. Date of Last Stent Placement:: 01/2017 Past Psychological History: Anxiety Additional Psychological History / Comment(s): . Smoking Status: Current every day smoker Past Alcohol Use History: None Reported Additional Past Alcohol Use History / Comment(s): STARTED SMOKING AT AGE 18- SMOKED 1PPD AND QUIT -2017 Past Drug Use History: None Reported - Past Family History Mother Family Medical History: Cancer, Diabetes Mellitus Additional Family Medical History / Comment(s): Father had a defibrillator. He of heart dx in his 80's Father Family Medical History: Diabetes Mellitus Additional Family Medical History / Comment(s): HEART DISEASE Medications and Allergies Home Medications Medication Instructions Recorded Confirmed Type Pantoprazole [Protonix] 40 mg PO DAILY 01/14/17 01/05/22 History HYDROcodone/APAP 10-325MG [[place] 1 tab PO Q6H PRN 08/19/18 01/05/22 History 10-325] traZODone HCL 50 mg PO HS 09/07/18 01/05/22 History Loperamide [Imodium] 2 mg PO TID PRN 01/13/19 01/05/22 History Metoprolol Succinate (ER) [Toprol 25 mg PO DAILY 01/13/19 01/05/22 History XL] Atorvastatin [Lipitor] 40 mg PO HS #30 tab 01/15/19 01/05/22 Rx Fenofibrate [Lofibra] 160 mg PO DAILY #30 tab 01/15/19 01/05/22 Rx Melatonin 3 mg PO HS tablet 01/15/19 01/05/22 Rx rOPINIRole HCL [Requip] 0.25 mg PO TID #21 tablet 07/27/19 01/05/22 Rx Aspirin EC [Ecotrin Low Dose] 81 mg PO DAILY 01/03/21 01/05/22 History Isosorbide Mononitrate ER [Imdur] 30 mg PO DAILY #90 tab 09/15/21 01/05/22 Rx Docusate [Colace] 100 mg PO DAILY #30 capsule 01/01/22 01/05/22 Rx Cefdinir 300 mg PO BID 01/05/22 01/05/22 History Insulin Aspart [NovoLOG Flexpen] See Protocol SQ AC-TID 01/05/22 01/05/22 History Levofloxacin [Levaquin] 500 mg PO DAILY 01/05/22 01/05/22 History Mirabegron [Myrbetriq] 50 mg PO DAILY 01/05/22 01/05/22 History Allergies Allergy/AdvReac Type Severity Reaction Status Date / Time No Known Allergies Allergy Verified 01/05/22 15:57 Physical Examination Osteopathic Statement: *. No significant issues noted on an osteopathic structural exam other than those noted in the History and Physical/Consult. - L Spine: dermatomal strength & reflexes right Strength: hip flexion: 5/5 (Her back is tender to palpation over the lumbosacral area. She has diffuse pain around her right groin with palpation. She has positive femoral nerve stretch test. She does not have pain rolling her hip but does have pain with internal/external rotation at her hip when it is in flexion. She has) Strength: hip extension: 5/5 (5 out of 5 strength with dorsi flexion plantar flexion and EHL hip flexion and knee extension. Thighs and calves soft nontender. Left lower extremity full active passive range motion) Results - Labs Labs: Abnormal Lab Results - Last 24 Hours (Table) 01/08/22 01/09/22 01/09/22 Range/Units 20:27 07:11 08:03 RBC 4.03 L (4.10-5.20) X 10*6/uL Hgb 11.9 L (12.0-15.0) g/dL Hct 36.8 L (37.2-46.3) % Anion Gap (10.00-18.00) mmol/L BUN (9.0-27.0) mg/dL BUN/Creatinine Ratio (12.00-20.00) Ratio Glucose (70-110) mg/dL POC Glucose (mg/dL) 169 H 162 H (70-110) mg/dL Calcium (8.7-10.3) mg/dL Total Bilirubin (0.30-1.20) mg/dL AST (13-35) U/L Total Protein (6.2-8.2) g/dL Albumin (3.8-4.9) g/dL 01/09/22 01/09/22 01/09/22 Range/Units 08:03 11:51 16:14 RBC (4.10-5.20) X 10*6/uL Hgb (12.0-15.0) g/dL Hct (37.2-46.3) % Anion Gap 7.20 L (10.00-18.00) mmol/L BUN 6.5 L (9.0-27.0) mg/dL BUN/Creatinine Ratio 11.44 L (12.00-20.00) Ratio Glucose 207 H (70-110) mg/dL POC Glucose (mg/dL) 232 H 181 H (70-110) mg/dL Calcium 8.5 L (8.7-10.3) mg/dL Total Bilirubin <0.15 L (0.30-1.20) mg/dL AST 12 L (13-35) U/L Total Protein 5.0 L (6.2-8.2) g/dL Albumin 3.3 L (3.8-4.9) g/dL Microbiology - Last 24 Hours (Table) 01/05/22 17:18 Blood Culture - Preliminary Blood No Growth after 72 hours 01/05/22 15:33 Blood Culture - Preliminary Blood No Growth after 72 hours H & H 01/05/22 01/06/22 01/07/22 Range/Units 17:31 07:17 05:58 Hgb 15.0 12.9 11.7 L (11.4-16.0) gm/dL Hct 44.7 39.9 35.4 L (34.0-46.0) % 01/08/22 01/09/22 Range/Units 04:23 08:03 Hgb 11.3 L 11.9 L (11.4-16.0) gm/dL Hct 34.2 L 36.8 L (34.0-46.0) % Result Diagrams: 01/09/22 08:03 01/09/22 08:03 - Diagnostic results CT Scan - lumbar: report reviewed (The plain film of her right hip shows possible fractional and severe pubic rami. This is not seen on the computed tomography scan.), image reviewed (Computed tomography scan chest abdomen pelvis is reviewed in terms of her lumbar spine. She has complete disc height loss L4 5 L5-S1 with central and bilateral foraminal stenosis. There appears to be a right paracentral disc herniation L3 4 towards the facet and lateral. One of the plain films at) Assessment and Plan Assessment: Right lower quadrant pain, Low back pain lower extremity radiculopathy, Without acute weakness Urinary tract infection, recurrent and unresponsive Degenerative disc disease L3 4 L4 5 L5-S1 Likely disc herniation L3 4 with central and foraminal stenosis L4 5 L5-S1 on computed tomography scan difficult to fully delineate Plan: Right lower quadrant pain, Low back pain lower extremity radiculopathy, Without acute weakness Urinary tract infection, recurrent and unresponsive Degenerative disc disease L3 4 L4 5 L5-S1 Likely disc herniation L3 4 with central and foraminal stenosis L4 5 L5-S1 on computed tomography scan difficult to fully delineate The patient has symptoms likely from multiple sources. She does not have a typical presentation and return to her lumbar spine or radiculopathy but she does have significant findings of disc herniations L3 4 and severe stenosis L4 5 and L5-S1 on computed tomography scan. These findings would be better del ineated on MRI scan and I think with her continued symptoms and severe pain without relief that she needs further imaging with an MRI of her lumbar spine. It has already been ordered and I agree. Interventional pain management has been consult it and I think that she could be a good candidate for interventional pain management for possible injection at L3 4 or L4 5 given the distribution at her right lower extremity over L4 distribution. Her pain extends down her anterior lateral thigh and over her knee but does not seem to extend toward her lower leg or foot. She has been seen by urology and the patient do not feel that his a urologic surgical issue. The patient has chronic issues with her bladder and has diminished emptying and requires semi-regular straight cathing on her own and also has recurrent or new tract infections which are currently being treated as well. I think that she should try to pursue interventional pain management. I would hold off on oral steroid as she has been treated with antibiotics for her urinary tract and infection. I will leave it up to the infectious disease specialist to determine further interventional conservative planning. If she is having relief with the injection and she should continue conservative care. We will follow her once we see further imaging with MRI.
[2022-01-09] MEDS: traZODone HCL 50 MG TAB PO SCH (20:58)
[2022-01-09] MEDS: ATORVASTATIN 40 MG TAB PO SCH (20:58)
[2022-01-09] MEDS: MELATONIN 3 MG TABLET PO SCH (20:58)
[2022-01-09 21:14] LABS: Glucose,Whole Blood 223 mg/dL (70-110)
[2022-01-10] MEDS: HYDROmorphone 0.5 MG/0.5 ML SYRINGE IVP PRN ×6 (00:47→22:03)
[2022-01-10 07:19] LABS: Glucose,Whole Blood 175 mg/dL (70-110)
[2022-01-10] MEDS: INSULIN ASPART (NovoLOG) 100 UNIT/ML VIAL SQ SCH ×4 (08:01→21:50)
--- NOTE | 2022-01-10 09:45 | MR ---
EXAMINATION TYPE: MR lumbar spine wo con DATE OF EXAM: 01/10/2022 8:53 AM COMPARISON: MRI 07/08/2014 the lumbar spine.. CLINICAL INDICATION:Female, 71 years old with history of intractable back pain, Radiculopathy; TECHNIQUE: Multi planar, multi sequence imaging was performed utilizing: T1-weighted, T2-weighted, a nd turbo inversion recovery imaging of the lumbar spine. IV Contrast: None FINDINGS: Motion limits evaluation. Alignment: The lumbar vertebral bodies have preserved heights and alignment. Cord: The conus medullaris and the distal spinal cord appear unremarkable with regards to their signa l intensity and morphology. Bones/Discs: Scattered Modic endplate changes and bone marrow edema most pronounced at L3-L4 and L4-L 5.. Multilevel degenerative disc disease is noted and most pronounced at the . L1-L2: No significant disc pathology. Spinal canal is patent. The neural foramen are patent. L2-L3: No significant disc pathology. Spinal canal is patent. The neural foramen are patent. L3-L4: Right subarticular/right central disc extrusion with superior migration up to 15 mm which abut s and displaces the forming and exiting nerves on the right at this level. There is resulting moderat e to severe right neural foraminal stenosis and moderate left neural foraminal stenosis. L4-L5: Disc bulge with superimposed right disc protrusion which abuts the forming nerve roots on the right. Additionally osteophytes with facet joint arthropathy result in moderate bilateral neural fora jc stenosis. The spinal canal is mildly narrowed. L5-S1: Central disc protrusion without significant spinal canal stenosis. Facet joint arthropathy wit h moderate to severe bilateral neural foraminal stenosis. Other findings: Right renal high T2 signal cysts. IMPRESSION: Motion limited exam. 1. L3-L4 subarticular herniation with superior migration and displacement of the forming and exiting nerves at this level. 2. L4-L5 right central disc protrusion which abuts the forming right nerve roots at this level. 3. L5-S1 central disc herniation without significant spinal canal stenosis. 4. Multilevel disc degeneration with associated osteoarthritic changes.
[2022-01-10] MEDS: ASPIRIN 81 MG PO SCH (10:31)
[2022-01-10] MEDS: ISOSORBIDE MONONITRATE ER 30 MG TAB.ER.24H PO SCH (10:33)
[2022-01-10] MEDS: METOPROLOL SUCCINATE (ER) 25 MG TAB.ER.24H PO SCH (10:34)
[2022-01-10] MEDS: FAMOTIDINE 20 MG TAB PO SCH (10:34)
[2022-01-10] MEDS: DOCUSATE 100 MG CAP PO SCH (10:35)
[2022-01-10] MEDS: PANTOPRAZOLE 40 MG/10 ML VIAL IV SCH (10:36)
[2022-01-10 11:26] LABS: Glucose,Whole Blood 174 mg/dL (70-110)
--- NOTE | 2022-01-10 13:00 | P.PN ---
Progress Note - Text Progress Note Date: 01/10/22 Orthopedic spine: History of present illness: Patient is a very pleasant 71-year-old female who is seen and examined at the bedside for further evaluation of her lumbar spine. Since being seen and examined yesterday she has not had any significant change in her symptoms. She has had lumbar MRI imaging performed this morning. This has been reviewed by myself and Dr. Galen Khanna. Patient states she continues to have right lower quadrant pain. She is able to make this pain worse by pushing on it to some degree. She also states she has some pain that can radiate down her right anterior thigh. She states his pain is intermittent and can be exacerbated with trying to walk on her right lower extremity. She states the pain will intermittently come and go while lying in bed. She denies any lower extremity weakness bilaterally. She denies any left lower extremity radiculopathy. She does have a history of degenerative changes in her lumbar spine states she has worked through injections in the past without significant long-term benefit but states she has not had any injections recently. Patient states she does require frequent pain medication for pain control. She continues to be seen examined by medicine. Patient's other medical diagnoses include coronary artery disease, diabetes mellitus, fibromyalgia, history of myocardial infarction. She has been seen and examined by Dr. Dixon in urology as well. She does have some chronic difficulty with fully emptying her bladder. She does occasionally self-catheterization at home. Urology is not currently planning for any acute surgical intervention. She is being treated for urinary tract infection. She is currently on Rocephin. Consultation had been placed with pain management. Nursing states pain management is not assessed the patient today. Physical exam: Patient is awake, alert, and oriented 3 Vital signs stable Good chest excursion with deep inspiration and expiration Mild pain with palpation of the right lower quadrant Examination of lumbar spine reveals skin is intact with no abrasions, lacerations, or bruises; no erythema, purulence or signs of infection Dorsiflexion, plantarflexion, and extensor hallucis longus positive sustained bilaterally Some increased right lower extremity pain with hip flexion Lower extremity strength 5/5 bilaterally Straight leg test negative bilateral lower extremities Negative Lasegue's test bilaterally No signs or symptoms of DVT; no calf pain No pain with internal and external rotation of the hips bilaterally Neurovascularly intact Pertinent studies: MRI of the lumbar spine taken on 01/10/2022: L3-4 degenerative disc disease with endplate change, right subarticular right paracentral disc herniation with cephalad migration causing displacement to the right exiting nerve resulting in moderate to severe right neural foraminal stenosis and moderate left neural foraminal stenosis; L4-5 Modic endplate change, degenerative disc disease, disc bulge, and facet joint arthropathy resulting in mild spinal canal stenosis with moderate bilateral neural foraminal stenosis; L5-S1 central disc protrusion and facet joint arthropathy with moderate to severe bilateral neural foraminal stenosis Assessment: Right lower quadrant pain Right lower extremity radiculopathy L3-4, L4-5, and L5-S1 degenerative disc disease L3-4 large right paracentral disc herniation resulting in severe right neural foraminal stenosis L4-5 mild central canal stenosis and bilateral neural foraminal stenosis L5-S1 moderate to severe bilateral neural foraminal stenosis Lumbar and lumbosacral facet arthropathy Chronic low back pain Urinary tract infection History of difficulty with fully emptying bladder History of intermittent home self-catheterization Coronary artery disease Essential hypertension Diabetes mellitus Fibromyalgia History of myocardial infarction Plan: 1. Patient continues to experience right lower quadrant pain. She also has pain reaching down the right lower extremity over the anterior thigh to the knee. This right lower extremity radiculopathy is intermittent and can be severe when present. She states her pain is exacerbated with trying to walk on her right lower extremity. She is not experiencing any acute neurological decline. She denies any lower extremity weakness bilaterally. She denies a left lower extremity radiculopathy. She is able to perform active range of motion bilateral lower extremities independently without difficulty. She has had multiple imaging modalities taken during her admission to the hospital. She underwent lumbar MRI imaging this morning. She does have multilevel degenerative change at L3-4, L4-5, and L5-S1 with findings most significant at L3-4 showing evidence of L3-4 degenerative disc disease with endplate change, right subarticular right paracentral disc herniation with cephalad migration causing displacement to the right exiting nerve resulting in moderate to severe right neural foraminal stenosis and moderate left neural foraminal stenosis. We did discuss this correlates with her right lower extremity radiculopathy symptoms. It is difficult to determine if this disc herniation at L3-4 would be the cause of all her right lower quadrant pain symptoms as this does not correlate well with a radicular pattern with a disc herniation at this level. We did discuss further evaluation and possible injections with pain management could help improve her right lower extremity radiculopathy given her disc herniation at L3-4. Consultation was recently placed with pain management. Patient has not yet been evaluated by pain management. We did discuss the patient could be a candidate for surgical intervention at her lumbar spine. Given her multiple changes, patient is a candidate for an L3-4 laminectomy and decompression with discectomy. She also could be a candidate for an L3-4, L4-5, and L5-S1 minimal invasive posterior lateral decompression and fusion with transforaminal lumbar interbody fusion. Patient states currently she would like to avoid any lumbar fusion procedure. She would consider the possibility of L3- 4 laminectomy and decompression. Currently, we discussed she should continue conservative treatment options to see if she could have some improvement with pain management. We will continue to follow patient closely. 2. Patient will continue to be seen examined by medicine for other diagnoses including treatment for ongoing urinary tract infection in her right lower quadrant pain. 3. Patient currently waiting for evaluation by pain management.
--- NOTE | 2022-01-10 15:21 | P.PN ---
Subjective Progress Note Date: 01/10/22 This is 71-year-old female patient who presented with concerns of ongoing abdominal and flank pain for 2 weeks. She was getting treated outpatient for urinary tract infection. Patient also presented to the ER last week in which CT of the abdomen was completed showing no acute abnormality in the abdomen and pelvis no adverse change compared to old exam. Patient was cleared at that time to return home. Due to ongoing abdominal pain patient will be admitted and started on IV antibiotics. KUB completed showing no acute radiographic process. However prominent fields colonic stool volume noted. Patient will be started on lactulose for constipation.patient does have a past medical history of coronary artery disease, diabetes mellitus, fibromyalgia, GERD, [place], IBS and anxiety. Patient is also an every day smoker. At this time patient will be admitted IV fluids ordered. Patient started on IV antibiotic urine culture ordered. Will also order ultrasound of pelvic and kidney renal bladder. Pain medications ordered for abdominal discomfort. Lab work at this time unremarkable. Patient is currently resting comfortably in bed. Patient denies chest pain or shortness of breath. Patient denies nausea vomiting or diarrhea. Patient denies any urinary burning or frequency. On 01/08/2022 patient's alert and oriented 3. Patient still complaining of ongoing pain. Awaiting urology input due to mild hydronephrosis seen on ultrasound. Fluids DC'd. Patient remains on IV Rocephin. Current vital signs temp 97.5, heart rate 72, respiratory rate 18 with blood pressure 114/67 On 01/10/2020 patient was seen and examined on the medical floor she is alert and oriented 3 in no apparent distress she is still complaining of severe intractable pain in the right lower quadrant right flank and right lower back, urology consultation reviewed, no kidney pathology Plan patient intractable pain, x-ray of the right hip was done today, and did not reveal significant abnormality however, an addendum was added to the computed tomography scan of the abdomen and pelvis that was done on 01/01/2022 and mentioned evidence of L3- L4 disc herniation, at this point will continue was pain management, will check MRI of the lumbar spine, will consult Dr. Khanna , will consult pain management, patient informed of findings and is agreeable with current plan. On 01/11/2020 patient was seen and examined on the medical she is alert and oriented 3 in no apparent distress she is still complaining of severe pain in the lower back right flank and right lower quadrant abdominal pain, testing done so far include computed tomography scan of the abdomen and pelvis done as outpatient prior to admission and did not reveal any acute intra-abdominal process, kidney ultrasound and pelvic ultrasound, MRI of the lumbar spine which revealed evidence of herniated L3-L4 disc, at this point continue was pain medication, awaiting input from pain management, patient was seen by urology, she was also seen by neurosurgery, awaiting further recommendation Objective - Vital Signs Vital signs: Vital Signs Temp 98.2 F 01/10/22 12:39 Pulse 70 01/10/22 12:39 Resp 16 01/10/22 12:39 BP 119/60 01/10/22 12:39 Pulse Ox 96 01/10/22 07:30 FiO2 Intake & Output 01/09/22 01/10/22 01/10/22 18:59 06:59 18:59 Intake Total 50 Balance 50 Intake: Intake, IV Titration 50 Amount cefTRIAXone 1 gm In 50 Sodium Chloride 0.9% 50 ml @ 100 mls/hr IVPB Q24HR [facility] Rx#:[id number] Other: Voiding Method Toilet Toilet # Voids 1 # Bowel Movements 0 - Exam In general patient is alert and oriented x 3 in no distress HEENT head normocephalic and atraumatic Neck is supple no JVD no goiter no lymphadenopathy no carotid bruit Chest examination is clear to auscultation no crackles no wheezing Cardiac exam reveals regular heart sounds S1 and S2 no gallops no murmurs Abdomen is soft with tenderness in the right lower quadrant and right lung Extremity exam reveals no edema no cyanosis or clubbing Neurological examination reveals no gross focal deficits - Labs CBC & Chem 7: 01/09/22 08:03 01/09/22 08:03 Labs: Abnormal Lab Results - Last 24 Hours (Table) 01/09/22 01/09/22 01/10/22 Range/Units 16:14 21:12 07:17 POC Glucose (mg/dL) 181 H 223 H 175 H (70-110) mg/dL 01/10/22 Range/Units 11:18 POC Glucose (mg/dL) 174 H (70-110) mg/dL Microbiology - Last 24 Hours (Table) 01/05/22 17:18 Blood Culture - Preliminary Blood No Growth after 96 hours 01/05/22 15:33 Blood Culture - Preliminary Blood No Growth after 96 hours Assessment and Plan Assessment: 1. Right lower abdomen pain with radiation to back. Cause is unclear Will consult urology regarding abnormal finding on kidney ultrasound 2. Urinary tract infection with failed outpatient treatment 3. History of CAD with previous [place] and stent placement 4. Insulin-dependent diabetes mellitus 5. History of essential hypertension 6. History of hyperlipidemia 7. History of fibromyalgia 8. Ongoing nicotine dependence. Patient educated greater than 3 minutes on smoking cessation decline nicotine patch at this time 9. Constipation. This was evident on KUB x-ray. Imodium DC'd and lactulose ordered 10. Mild hydronephrosis noted on ultrasound. Urology service is consulted DVT prophylaxis Lovenox. GI prophylaxis Pepcid Urine culture ordered Urology services consulted Repeat labs ordered Pelvic ultrasound negative
[2022-01-10] MEDS: ENOXAPARIN 40 MG/0.4 ML SYRINGE SQ SCH (15:43)
[2022-01-10 16:26] LABS: Glucose,Whole Blood 176 mg/dL (70-110)
[2022-01-10] MEDS: NON FORMULARY DRUG (Mirabegron [Myrbetriq] 25 MG Tab.Er.24h) PO SCH (16:48)
[2022-01-10] MEDS: ATORVASTATIN 40 MG TAB PO SCH (21:50)
[2022-01-10] MEDS: MELATONIN 3 MG TABLET PO SCH (21:50)
[2022-01-10] MEDS: traZODone HCL 50 MG TAB PO SCH (21:50)
[2022-01-10 21:59] LABS: Glucose,Whole Blood 190 mg/dL (70-110)
[2022-01-11] MEDS: HYDROmorphone 0.5 MG/0.5 ML SYRINGE IVP PRN ×2 (01:55→08:47)
[2022-01-11 07:04] LABS: Glucose,Whole Blood 146 mg/dL (70-110)
[2022-01-11] MEDS: INSULIN ASPART (NovoLOG) 100 UNIT/ML VIAL SQ SCH ×4 (08:33→21:47)
[2022-01-11] MEDS: ASPIRIN 81 MG PO SCH (08:34)
[2022-01-11] MEDS: PANTOPRAZOLE 40 MG/10 ML VIAL IV SCH (08:35)
[2022-01-11] MEDS: DOCUSATE 100 MG CAP PO SCH ×2 (08:35→08:38)
[2022-01-11] MEDS: ENOXAPARIN 40 MG/0.4 ML SYRINGE SQ SCH (08:35)
[2022-01-11] MEDS: ISOSORBIDE MONONITRATE ER 30 MG TAB.ER.24H PO SCH (08:35)
[2022-01-11] MEDS: FAMOTIDINE 20 MG TAB PO SCH (08:35)
[2022-01-11] MEDS: METOPROLOL SUCCINATE (ER) 25 MG TAB.ER.24H PO SCH (08:36)
--- NOTE | 2022-01-11 09:39 | P.PN ---
Subjective Progress Note Date: 01/11/22 This is 71-year-old female patient who presented with concerns of ongoing abdominal and flank pain for 2 weeks. She was getting treated outpatient for urinary tract infection. Patient also presented to the ER last week in which CT of the abdomen was completed showing no acute abnormality in the abdomen and pelvis no adverse change compared to old exam. Patient was cleared at that time to return home. Due to ongoing abdominal pain patient will be admitted and started on IV antibiotics. KUB completed showing no acute radiographic process. However prominent fields colonic stool volume noted. Patient will be started on lactulose for constipation.patient does have a past medical history of coronary artery disease, diabetes mellitus, fibromyalgia, GERD, [place], IBS and anxiety. Patient is also an every day smoker. At this time patient will be admitted IV fluids ordered. Patient started on IV antibiotic urine culture ordered. Will also order ultrasound of pelvic and kidney renal bladder. Pain medications ordered for abdominal discomfort. Lab work at this time unremarkable. Patient is currently resting comfortably in bed. Patient denies chest pain or shortness of breath. Patient denies nausea vomiting or diarrhea. Patient denies any urinary burning or frequency. On 01/08/2022 patient's alert and oriented 3. Patient still complaining of ongoing pain. Awaiting urology input due to mild hydronephrosis seen on ultrasound. Fluids DC'd. Patient remains on IV Rocephin. Current vital signs temp 97.5, heart rate 72, respiratory rate 18 with blood pressure 114/67 On 01/10/2020 patient was seen and examined on the medical floor she is alert and oriented 3 in no apparent distress she is still complaining of severe intractable pain in the right lower quadrant right flank and right lower back, urology consultation reviewed, no kidney pathology Plan patient intractable pain, x-ray of the right hip was done today, and did not reveal significant abnormality however, an addendum was added to the computed tomography scan of the abdomen and pelvis that was done on 01/01/2022 and mentioned evidence of L3- L4 disc herniation, at this point will continue was pain management, will check MRI of the lumbar spine, will consult Dr. Khanna , will consult pain management, patient informed of findings and is agreeable with current plan. On 01/11/2020 patient was seen and examined on the medical she is alert and oriented 3 in no apparent distress she is still complaining of severe pain in the lower back right flank and right lower quadrant abdominal pain, testing done so far include computed tomography scan of the abdomen and pelvis done as outpatient prior to admission and did not reveal any acute intra-abdominal process, kidney ultrasound and pelvic ultrasound, MRI of the lumbar spine which revealed evidence of herniated L3-L4 disc, at this point continue was pain medication, awaiting input from pain management, patient was seen by urology, she was also seen by neurosurgery, awaiting further recommendation On 01/11/2022 showed bladder and oriented 3. Patient still complaining of severe pain. Patient stating she needs Dilaudid every 3 hours to control the pain at this time pain services have been consulted awaiting consult. Reviewed with patient findings of multiple scans with no significant abnormalities. Orthopedic surgeons were consulted for MRA evidence of herniated L3 to L4 disc. This time patient denies chest pain or shortness breath. Patient denies nausea vomiting or diarrhea. Patient denies any urinary burning or frequency Objective - Vital Signs Vital signs: Vital Signs Temp 98.0 F 01/11/22 08:00 Pulse 52 L 01/11/22 08:00 Resp 16 01/11/22 08:00 BP 129/69 01/11/22 08:00 Pulse Ox 90 L 01/11/22 08:00 FiO2 Intake & Output 01/10/22 01/11/22 01/11/22 18:59 06:59 18:59 Other: Voiding Method Toilet # Voids 3 # Bowel Movements 0 - Exam In general patient is alert and oriented x 3 in no distress HEENT head normocephalic and atraumatic Neck is supple no JVD no goiter no lymphadenopathy no carotid bruit Chest examination is clear to auscultation no crackles no wheezing Cardiac exam reveals regular heart sounds S1 and S2 no gallops no murmurs Abdomen is soft with tenderness in the right lower quadrant and right lung Extremity exam reveals no edema no cyanosis or clubbing Neurological examination reveals no gross focal deficits - Labs CBC & Chem 7: 01/09/22 08:03 01/09/22 08:03 Labs: Abnormal Lab Results - Last 24 Hours (Table) 01/10/22 01/10/22 01/10/22 Range/Units 11:18 16:18 21:47 POC Glucose (mg/dL) 174 H 176 H 190 H (70-110) mg/dL 01/11/22 Range/Units 07:02 POC Glucose (mg/dL) 146 H (70-110) mg/dL Microbiology - Last 24 Hours (Table) 01/05/22 17:18 Blood Culture - Preliminary Blood No Growth after 120 hours 01/05/22 15:33 Blood Culture - Preliminary Blood No Growth after 120 hours Assessment and Plan Assessment: 1. Right lower abdomen pain with radiation to back. Cause is unclear Will consult urology regarding abnormal finding on kidney ultrasound 2. Urinary tract infection with failed outpatient treatment 3. History of CAD with previous [place] and stent placement 4. Insulin-dependent diabetes mellitus 5. History of essential hypertension 6. History of hyperlipidemia 7. History of fibromyalgia 8. Ongoing nicotine dependence. Patient educated greater than 3 minutes on smoking cessation decline nicotine patch at this time 9. Constipation. This was evident on KUB x-ray. Imodium DC'd and lactulose ordered 10. Mild hydronephrosis noted on ultrasound. Urology service is consulted 11. Disc herniation L3 to L4 on MRI. Orthopedic surgery and pain service is consulted DVT prophylaxis Lovenox. GI prophylaxis Pepcid Urine culture negative Repeat labs ordered Pelvic ultrasound negative Awaiting pain service consult
--- NOTE | 2022-01-11 10:07 | P.PN ---
Progress Note - Text Progress Note Date: 01/11/22 Orthopedic spine: History of present illness: Patient is a very pleasant 71-year-old female who is seen and examined at the bedside for further evaluation of her lumbar spine. Since being seen and examined yesterday she has not had any significant change in her symptoms. She has had lumbar MRI imaging performed today. This has been reviewed by myself and Dr. Galen Khanna. Patient states she continues to have right lower quadrant pain. Her right lower quadrant pain is her most significant symptom. She also states she has some pain that can radiate down her right anterior thigh. She states his pain is intermittent and can be exacerbated with trying to walk on her right lower extremity. She states the pain will intermittently come and go while lying in bed. She denies any lower extremity weakness bilaterally. She denies any left lower extremity radiculopathy. She does have a history of degenerative changes in her lumbar spine states she has worked through injections in the past without significant long-term benefit but states she has not had any injections recently. Patient states she does require frequent pain medication for pain control. He has been able to ambulate to the restroom. She continues to be seen examined by medicine. Patient's other medical diagnoses include coronary artery disease, diabetes mellitus, fibromyalgia, history of myocardial infarction. She has been seen and examined by Dr. Dixon in urology as well. She does have some chronic difficulty with fully emptying her bladder. She does occasionally self-catheterization at home. Urology is not currently planning for any acute surgical intervention. She is being treated for urinary tract infection. She is currently on Rocephin. Consultation had been placed with pain management. Patient still has not been seen and examined by pain management. Pain management will be contacted. Physical exam: Patient is awake, alert, and oriented 3 Vital signs stable Good chest excursion with deep inspiration and expiration Mild pain with palpation of the right lower quadrant No abdominal distention; abdomen is soft Examination of lumbar spine reveals skin is intact with no abrasions, lacerations, or bruises; no erythema, purulence or signs of infection Dorsiflexion, plantarflexion, and extensor hallucis longus positive sustained bilaterally Some increased right lower extremity pain with hip flexion Lower extremity strength 5/5 bilaterally Straight leg test negative bilateral lower extremities Negative Lasegue's test bilaterally No signs or symptoms of DVT; no calf pain No pain with internal and external rotation of the hips bilaterally Neurovascularly intact Pertinent studies: MRI of the lumbar spine taken on 01/10/2022: L3-4 degenerative disc disease with endplate change, right subarticular right paracentral disc herniation with cephalad migration causing displacement to the right exiting nerve resulting in moderate to severe right neural foraminal stenosis and moderate left neural foraminal stenosis; L4-5 Modic endplate change, degenerative disc disease, disc bulge, and facet joint arthropathy resulting in mild spinal canal stenosis with moderate bilateral neural foraminal stenosis; L5-S1 central disc protrusion and facet joint arthropathy with moderate to severe bilateral neural foraminal stenosis Assessment: Right lower quadrant pain Right lower extremity radiculopathy L3-4, L4-5, and L5-S1 degenerative disc disease L3-4 large right paracentral disc herniation resulting in severe right neural foraminal stenosis L4-5 mild central canal stenosis and bilateral neural foraminal stenosis L5-S1 moderate to severe bilateral neural foraminal stenosis Lumbar and lumbosacral facet arthropathy Chronic low back pain Urinary tract infection History of difficulty with fully emptying bladder History of intermittent home self-catheterization Coronary artery disease Essential hypertension Diabetes mellitus Fibromyalgia History of myocardial infarction Plan: 1. We will continue with her plan as set forth yesterday. Patient continues to experience right lower quadrant pain. She also has pain radiating down the right lower extremity from the right buttock and over the anterior thigh to the knee. This right lower extremity radiculopathy is intermittent and can be severe when present. She states her pain is exacerbated with trying to walk on her right lower extremity. She is not currently complaining of any significant specific lumbar pain. She is not experiencing any acute neurological decline. She denies any lower extremity weakness bilaterally. She denies a left lower extremity radiculopathy. She is able to perform active range of motion bilateral lower extremities independently without difficulty. She has had multiple imaging modalities taken during her admission to the hospital. She underwent lumbar MRI imaging this morning. She does have multilevel degenerative change at L3-4, L4-5, and L5-S1 with findings most significant at L3-4 showing evidence of L3-4 degenerative disc disease with endplate change, right subarticular right paracentral disc herniation with cephalad migration causing displacement to the right exiting nerve resulting in moderate to severe right neural foraminal stenosis and moderate left neural foraminal stenosis. We did discuss this correlates with her right lower extremity radiculopathy symptoms. It is difficult to determine and is unlikely that this disc herniation at L3-4 would be the cause of all her right lower quadrant pain symptoms as this does not correlate well with a radicular pattern with a disc herniation at this level. Currently, her right lower quadrant pain is her most significant symptom. We did discuss further evaluation and possible injections with pain management could help improve her right lower extremity radiculopathy given her disc herniation at L3-4. Consultation was recently placed with pain management. Patient has not yet been evaluated by pain management. Nursing will plan to try to contact the pain management service spelled they may evaluate the patient. We did discuss the patient could be a candidate for surgical intervention at her lumbar spine. Given her multiple changes, patient is a candidate for an L3-4 laminectomy and decompression with discectomy. She also could be a candidate for an L3-4, L4-5, and L5-S1 minimal invasive posterior lateral decompression and fusion with transforaminal lumbar interbody fusion. Patient states currently she would like to avoid any lumbar fusion procedure. She would consider the possibility of L3-4 laminectomy and decompression. Currently, we discussed she should continue conservative treatment options to see if she could have some improvement with pain management. We also discussed she may need further evaluation in regards to her right lower quadrant pain. 2. Patient will continue to be seen examined by medicine for other diagnoses including treatment for ongoing urinary tract infection in her right lower quadrant pain. We would defer further imaging or evaluation of her right lower quadrant pain to medicine. Her right lower quadrant pain does not correlate well with her lumbar spine. 3. Patient currently waiting for evaluation by pain management.
[2022-01-11 10:47] LABS: Basophils # (A) 0.03 X 10*3/uL (0.00-0.10); Basophils % (A) 0.4 %; Eosinophils # (A) 0.38 X 10*3/uL (0.04-0.35); Eosinophils % (A) 5.4 %; HCT 36.1 % (37.2-46.3); HGB 11.8 g/dL (12.0-15.0); Immature Grans, Automated 0.3 %; Lymphocytes % (A) 28.4 %; MCH 29.4 pg (27.0-32.0); MCHC 32.7 g/dL (32.0-37.0); Mean Platelet Volume 12.2 fL (9.5-12.2); Monocytes # (A) 0.97 X 10*3/uL (0.20-1.00); Monocytes % (A) 13.8 %; NRBC Per 100 WBC 0 /100 WBCS (0.0-0.0); Neutrophils # (A) 3.63 X 10*3/uL (1.80-7.70); Neutrophils % (A) 51.7 %; Platelet Count 240 X 10*3/uL (140-440); RBC 4.01 X 10*6/uL (4.10-5.20); RDW 14.1 % (11.5-14.5); WBC 7.03 X 10*3/uL (4.50-10.00)
[2022-01-11 11:08] LABS: ALT 10 U/L (8-44); AST 10 U/L (13-35); African American GFR (CKD) 111.3 (60.0-200.0); Albumin 3.3 g/dL (3.8-4.9); Albumin/Globulin Ratio 1.65 (1.60-3.17); Alkaline Phosphatase 101 U/L (41-126); Blood Urea Nitrogen 7.3 mg/dL (9.0-27.0); Calcium 8.9 mg/dL (8.7-10.3); Carbon Dioxide 26.6 mmol/L (20.0-27.5); Chloride 105 mmol/L (96-109); Glucose 155 mg/dL (70-110); Potassium 4.1 mmol/L (3.5-5.5); Sodium 140 mmol/L (135-145); Total Bilirubin <0.15 mg/dL (0.30-1.20); Total Protein 5.3 g/dL (6.2-8.2)
[2022-01-11 11:46] LABS: Glucose,Whole Blood 255 mg/dL (70-110)
--- NOTE | 2022-01-11 12:46 | P.PAINPG ---
Objective - Vital Signs Vital signs: Vital Signs Temp 98.0 F 01/11/22 08:00 Pulse 52 L 01/11/22 08:00 Resp 16 01/11/22 08:00 BP 129/69 01/11/22 08:00 Pulse Ox 90 L 01/11/22 08:00 FiO2 Intake & Output 01/10/22 01/11/22 01/11/22 18:59 06:59 18:59 Other: Voiding Method Toilet # Voids 3 # Bowel Movements 0 - Labs CBC & Chem 7: 01/11/22 06:30 01/11/22 06:30 Labs: Abnormal Lab Results - Last 24 Hours (Table) 01/10/22 01/10/22 01/10/22 Range/Units 11:18 16:18 21:47 POC Glucose (mg/dL) 174 H 176 H 190 H (70-110) mg/dL 01/11/22 Range/Units 07:02 POC Glucose (mg/dL) 146 H (70-110) mg/dL Microbiology - Last 24 Hours (Table) 01/05/22 17:18 Blood Culture - Preliminary Blood No Growth after 120 hours 01/05/22 15:33 Blood Culture - Preliminary Blood No Growth after 120 hours PQRS Measure Charge Sheet History and Exam Findings: All other causes of pain ruled out Comment: HISTORY OF PRESENT ILLNESS: 71 -year-old the inpatient female as a referral from Dr. Chairez presents today with severe and chronic LBP secondary to disc bulges, DDD, spondylosis and facet arthropaty wtihout myelopathy for evaluation. Pt states her pain level is curren tly at 9/10 in intensity, constant, localized in the mid aspect of her lumbar spine R of midline w shooting pain towards her R thigh. Pain is provoked w twisting and bending. Pain is relieved w medications, sitting, repositioning and rest. PMH: CAD, Diabetes Mellitus, Fibromyalgia, GERD, PA (2017), ITP, IBS, HH, Anxiety PSH: L Lung CA Stage 1, Adenoidectomy, Bladder Surgery, Bowel Resection, Chol ecystectomy, Heart Catheterization With Stent, Hernia Repair, Hysterectomy, Tonsillectomy, BLADDER SUSPENSION x 2, breast biopsy x3, bowel resection due to rupture. left upper lobe of lung removed per CA SH: 55 pack/ yr tobacco user Hx, No ETOH abuse, No illicit drug use FH: Mo- DM/ CAD. Fa- CAD. All: NKDA Meds: See list REVIEW OF ORGAN SYSTEMS: CONSTITUTIONAL: No fevers or chills. No recent weight loss. NEUROLOGICAL: + numbness and tingling along the distal extremities. No seizure disorders or headaches. MUSCULOSKELETAL: + pain PSYCHIATRIC: Denies current depression or suicidal thoughts. Physical Examinations : Constitutional : Cooperative , not in acute distress . Neurologic : Cranial nerve II to XII intact. No focal neurological deficits. Psychiatric : alert & oriented x 3. Matching mood & appropriate affect. Judgment & insight intact. Musculoskeletal : Cervical Spine Motor strength in the deltoid and biceps: Normal right side. Normal Left side Motor strength biceps and the wrist extensors: Normal right side . Normal left side Motor strength in the triceps muscle: Normal right side. Normal left side Deep tendon reflexes: Normal at the biceps. Normal at Brachioradialis. Normal at triceps Vertebral body tenderness to deep palpation over Cervical facet loading test: positive bilaterally Spurling test: positive bilaterally Neck distraction test: positive bilaterally John sign: positive bilaterally Lumbar spine Motor strength lower extremities ,thigh and legs 5/5 Right side , 5/5 Left side Deep tendon reflexes : Normal Knee J erk. Normal Ankle Jerk Vertebral body tenderness over L3, L4 Lumbar facet Loading Test: positive Right / positive Left Range of motion of the lumbar spine Flexion 30 degrees, extension 10 degrees Straight Leg Raise test: Left/ Right positive at degree Dani test: positive right / positive left. Severe tenderness over the Sacroiliac joint on the Right / Left sides Gaenslen test: positive bilaterally Seated flexion test: positive bilaterally. Sacral spine : Severe tenderness over the Sacroiliac joint: right side / left side Range of motion: Flexion of the lumbar spine <60 degrees Range of motion: Extension of the lumbar spine <20 degrees Gaenslen's Test positive Rickey's Test positive Dani test: positive right side / left side Thigh Thrust Test Sacral Thrust Test Imaging: MRI of the lumbar spine reviewed Assessment/ Plan : Lumbar disc bulges, Lumbar DDD Recommendation of R Paramedian PILI L3-L4. May need a series of injections, up to 3 within a 6 mo time frame, for optimal pain relief. Risks, benefits of procedure discussed and patient verbalized understanding. Admits to aspirin or anti- coagulant use or medical history of diabetes. Protocol for discontinuation/ continuation of medications lindsey procedure discussed w staff. Contacted nursing staff for NPO status after midnight. Pt may have procedure scheduled in 1 day. All questions answered. I have spent greater than 30 minutes on patient care today. Dr Mayers was available by phone for the evaluation of this patient. The time was used to review the medical records including relevant urine studies and Prescription history (MAPs), review of the available imaging, evaluation and examination of the patient, coordination of care with the medical staff and if applicable referring physicians, as well as creation of the medical record - Pain Location Abdomen Non-Pharmacological Interventions: Darkened Room, Distraction Pharmacological Interventions: Discuss Pain Med Options, PRN Medication Pain Comment: see MAR PQRS Narrative: Smoking Status Current every day smoker Blood Pressure [Right Arm] 129/69 Blood Pressure 132/86 Pain Intensity [Abdomen] 8 Pain Intensity 6 Pain Scale Used Numeric (1 - 10) Scale Used Numeric (1 - 10) Home Medications: Ambulatory Orders Pantoprazole [Protonix] 40 mg PO DAILY 01/14/17 HYDROcodone/APAP 10-325MG [[place] 10-325] 1 tab PO Q6H PRN 08/19/18 traZODone HCL 50 mg PO HS 09/07/18 Loperamide [Imodium] 2 mg PO TID PRN 01/13/19 Metoprolol Succinate (ER) [Toprol XL] 25 mg PO DAILY 01/13/19 Atorvastatin [Lipitor] 40 mg PO HS #30 tab 01/15/19 Fenofibrate [Lofibra] 160 mg PO DAILY #30 tab 01/15/19 Melatonin 3 mg PO HS tablet 01/15/19 rOPINIRole HCL [Requip] 0.25 mg PO TID #21 tablet 07/27/19 Aspirin EC [Ecotrin Low Dose] 81 mg PO DAILY 01/03/21 Isosorbide Mononitrate ER [Imdur] 30 mg PO DAILY #90 tab 09/15/21 Docusate [Colace] 100 mg PO DAILY #30 capsule 01/01/22 Cefdinir 300 mg PO BID 01/05/22 Insulin Aspart [NovoLOG Flexpen] See Protocol SQ AC-TID 01/05/22 Levofloxacin [Levaquin] 500 mg PO DAILY 01/05/22 Mirabegron [Myrbetriq] 50 mg PO DAILY 01/05/22 Controlled Substance Measures - Controlled Substance Measures Is patient prescribed a controlled substance at discharge?: No
[2022-01-11] MEDS: HYDROcodone/APAP 10-325MG 1 EACH TAB PO PRN ×2 (13:11→20:17)
[2022-01-11 16:59] LABS: Glucose,Whole Blood 150 mg/dL (70-110)
[2022-01-11] MEDS: NON FORMULARY DRUG (Mirabegron [Myrbetriq] 25 MG Tab.Er.24h) PO SCH (17:23)
[2022-01-11 19:28] LABS: Glucose,Whole Blood 193 mg/dL (70-110)
[2022-01-11] MEDS: ATORVASTATIN 40 MG TAB PO SCH (21:46)
[2022-01-11] MEDS: MELATONIN 3 MG TABLET PO SCH (21:46)
[2022-01-11] MEDS: traZODone HCL 50 MG TAB PO SCH (21:47)
[2022-01-12] MEDS: HYDROcodone/APAP 10-325MG 1 EACH TAB PO PRN (05:21)
[2022-01-12] MEDS ORDERED: IV FLUID CONTINUATION 1,000 ML IV ONE (07:08)
[2022-01-12 07:27] LABS: Glucose,Whole Blood 172 mg/dL (70-110)
[2022-01-12] MEDS ORDERED: IOPAMIDOL M200 10 ML VIAL ONE (07:28)
[2022-01-12] MEDS ORDERED: MIDAZOLAM 2 MG/2 ML VIAL ONE (07:28)
[2022-01-12] MEDS ORDERED: fentaNYL (PF) 50 MCG/ML 2 ML AMP ONE (07:28)
[2022-01-12] MEDS ORDERED: methylPREDNISolone ACETATE 40 MG/ML 1 ML VIAL ONE (07:28)
[2022-01-12] MEDS ORDERED: LACTATED RINGERS 1,000 ML IV SCH (07:30)
--- NOTE | 2022-01-12 07:46 | P.PCN ---
Date of Procedure: 01/12/22 Description of Procedure: Procedure: 1. Right side L3-L4 Epidural steroid injection under fluoroscopic guidance # 03/28 , 2. Lumbar epidurogram PREOPERATIVE DIAGNOSIS: Lumbar degenerative disc disease POSTOPERATIVE DIAGNOSIS: Lumbar degenerative disc disease SURGEON: Zach Herr ANESTHESIA: Local with 1% lidocaine, and IV sedation : Versed 2 mg, and fentanyl 100 g Sedation supervision start time: 0 732 Sedation supervision ended time: 0 743 EBL: None. Specimen removed: None Fluoroscopic image: saved to electronic medical records PROCEDURE INDICATION: The patient had history of Lumbar degenerative disc disease and Lumbar radiculopathy. Failed to conservative therapy. Presented for epidural steroid injection. PROCEDURE DESCRIPTION: The patient was seen and identified in the preoperative area. Risks, benefits, complications, and alternatives were discussed with the patient. The patient agreed to proceed with the procedure and signed the consent. IV was started, and vital signs were stable. Patient was taken to the procedure area, and time out was completed. The patient was placed in the prone position on procedure table and a pillow was placed under the abdomen to reduce lumbar lordosis. The lumbosacral area was prepped and draped in the usual sterile fashion. Critical pause was taken. Vital signs were closely monitored during the procedure. Using anterior-posterior fluoroscopy, the right side L3-L4 interlaminar space was identified, and skin and deeper tissues were localized with 1% lidocaine. Using anterior-posterior fluoroscopy, lateral fluoroscopy, and [id number] technique, a 20 gauge 3.5 Tuohy epidural needle entered the epidural space. After negative aspiration of CSF and blood with no paresthesias, 2 ml of [id number] contrast dye was injected and an excellent epidurogram was seen. Again after negative aspiration of CSF and blood with no paresthesias, 10 mL of block solution was injected into the epidural space. Block solution contained 40 mg of Depo-Medrol, and 7 mL of preservative-free normal saline, and 2 mL of 1% lidocaine preservative-free. Needle was withdrawn intact, skin was cleansed, and bandages were applied. COMPLICATIONS: None. DISPOSITION / PLANS: The patient was placed in a supine position and transferred to the recovery area in a stable condition for observation. Patient was discharged from the recovery room after meeting discharge criteria. Home discharge instructions given to the patient by the staff. The patient was reexamined prior to discharge. The patient will schedule a follow up in the clinic in 4 weeks.
[2022-01-12] MEDS: INSULIN ASPART (NovoLOG) 100 UNIT/ML VIAL SQ SCH ×3 (08:24→16:53)
[2022-01-12] MEDS: DOCUSATE 100 MG CAP PO SCH ×2 (08:24→08:27)
[2022-01-12] MEDS: ISOSORBIDE MONONITRATE ER 30 MG TAB.ER.24H PO SCH (08:24)
[2022-01-12] MEDS: METOPROLOL SUCCINATE (ER) 25 MG TAB.ER.24H PO SCH (08:24)
[2022-01-12] MEDS: FAMOTIDINE 20 MG TAB PO SCH (08:25)
--- NOTE | 2022-01-12 09:20 | FL ---
Intraoperative/procedural fluoroscopic services were provided for lumbar epidural injection. Total fl uoroscopy time is 11 seconds with a total of 3 submitted images to PACS. Please see the operative not e for further details.
[2022-01-12 10:12] LABS: Basophils # (A) 0.04 X 10*3/uL (0.00-0.10); Basophils % (A) 0.6 %; Eosinophils # (A) 0.29 X 10*3/uL (0.04-0.35); Eosinophils % (A) 4.5 %; HCT 35.1 % (37.2-46.3); HGB 11.6 g/dL (12.0-15.0); Immature Grans, Automated 0.3 %; Lymphocytes # (A) 2.06 X 10*3/uL (0.90-5.00); Lymphocytes % (A) 31.7 %; MCH 29.1 pg (27.0-32.0); MCV 88.2 fL (80.0-97.0); Mean Platelet Volume 11.1 fL (9.5-12.2); Monocytes # (A) 0.94 X 10*3/uL (0.20-1.00); Monocytes % (A) 14.5 %; NRBC Per 100 WBC 0 /100 WBCS (0.0-0.0); Neutrophils # (A) 3.15 X 10*3/uL (1.80-7.70); Neutrophils % (A) 48.4 %; Platelet Count 281 X 10*3/uL (140-440); RBC 3.98 X 10*6/uL (4.10-5.20); RDW 13.9 % (11.5-14.5)
[2022-01-12 10:31] LABS: ALT 12 U/L (8-44); AST 9 U/L (13-35); African American GFR (CKD) 99.6 (60.0-200.0); Albumin 3.5 g/dL (3.8-4.9); Albumin/Globulin Ratio 1.84 (1.60-3.17); Alkaline Phosphatase 105 U/L (41-126); BUN/Creat Ratio 17.71 Ratio (12.00-20.00); Blood Urea Nitrogen 12.4 mg/dL (9.0-27.0); Calcium 9.1 mg/dL (8.7-10.3); Carbon Dioxide 28.8 mmol/L (20.0-27.5); Chloride 105 mmol/L (96-109); Globulin 1.9 g/dL (1.6-3.3); Glucose 196 mg/dL (70-110); Potassium 4.3 mmol/L (3.5-5.5); Sodium 141 mmol/L (135-145); Total Bilirubin <0.15 mg/dL (0.30-1.20); Total Protein 5.4 g/dL (6.2-8.2)
[2022-01-12] MEDS: PANTOPRAZOLE 40 MG/10 ML VIAL IV SCH (10:42)
[2022-01-12 11:40] LABS: Glucose,Whole Blood 214 mg/dL (70-110)
[2022-01-12 14:45] VITALS: RESP 18
[2022-01-12 16:49] LABS: Glucose,Whole Blood 233 mg/dL (70-110)
[2022-01-12] MEDS: NON FORMULARY DRUG (Mirabegron [Myrbetriq] 25 MG Tab.Er.24h) PO SCH (16:52)
[2022-01-12 17:20] VITALS: BP 161/70; PULSE 72; TEMP 98.6
--- NOTE | 2022-01-13 08:54 | P.DS ---
Providers Date of admission: 01/05/22 19:07 Expected date of discharge: 01/12/22 Attending physician: Fernando Chairez Consults: 01/07/22 12:40 Consult Physician Routine Consulting Provider: Ervin Serra Consult Reason/Comments: severe right flank pain, mild hydronephrosis Do you want consulting provider notified?: Yes 01/09/22 17:04 Consult Physician Routine Consulting Provider: Sylvia Mayers Consult Reason/Comments: intractable back pain Do you want consulting provider notified?: Yes Consult Physician Routine Consulting Provider: Saud Khanna Consult Reason/Comments: intractable back pain, herniated disc Do you want consulting provider notified?: Yes Primary care physician: Fernando Chairez [facility] Course: Diagnosis on discharge: 1. Right lower abdomen pain with radiation to back. 2. Urinary tract infection with failed outpatient treatment 3. History of CAD with previous IA and stent placement 4. Insulin-dependent diabetes mellitus 5. History of essential hypertension 6. History of hyperlipidemia 7. History of fibromyalgia 8. Ongoing nicotine dependence. Patient educated greater than 3 minutes on smoking cessation decline nicotine patch at this time 9. Constipation. This was evident on KUB x-ray. Imodium DC'd and lactulose ordered 10. Mild hydronephrosis noted on ultrasound. Urology service is consulted 11. Disc herniation L3 to L4 on MRI. Orthopedic surgery and pain service is consulted Hospital course: This is 71-year-old female patient who presented with concerns of ongoing abdominal and flank pain for 2 weeks. She was getting treated outpatient for urinary tract infection. Patient also presented to the ER last week in which CT of the abdomen was completed showing no acute abnormality in the abdomen and pelvis no adverse change compared to old exam. Patient was cleared at that time to return home. Due to ongoing abdominal pain patient will be admitted and started on IV antibiotics. KUB completed showing no acute radiographic process. However prominent fields colonic stool volume noted. Patient will be started on lactulose for constipation.patient does have a past medical history of coronary artery disease, diabetes mellitus, fibromyalgia, GERD, IA, IBS and anxiety. Patient is also an every day smoker. At this time patient will be admitted IV fluids ordered. Patient started on IV antibiotic urine culture ordered. Will also order ultrasound of pelvic and kidney renal bladder. Pain medications ordered for abdominal discomfort. Lab work at this time unremarkable. Patient is currently resting comfortably in bed. Patient denies chest pain or shortness of breath. Patient denies nausea vomiting or diarrhea. Patient denies any urinary burning or frequency. On 01/08/2022 patient's alert and oriented 3. Patient still complaining of ongoing pain. Awaiting urology input due to mild hydronephrosis seen on ultrasound. Fluids DC'd. Patient remains on IV Rocephin. Current vital signs temp 97.5, heart rate 72, respiratory rate 18 with blood pressure 114/67 On 01/10/2020 patient was seen and examined on the medical floor she is alert and oriented 3 in no apparent distress she is still complaining of severe intractable pain in the right lower quadrant right flank and right lower back, urology consultation reviewed, no kidney pathology Plan patient intractable pain, x-ray of the right hip was done today, and did not reveal significant abnormality however, an addendum was added to the computed tomography scan of the abdomen and pelvis that was done on 01/01/2022 and mentioned evidence of L3- L4 disc herniation, at this point will continue was pain management, will check MRI of the lumbar spine, will consult Dr. Khanna , will consult pain management, patient informed of findings and is agreeable with current plan. On 01/11/2020 patient was seen and examined on the medical she is alert and oriented 3 in no apparent distress she is still complaining of severe pain in the lower back right flank and right lower quadrant abdominal pain, testing done so far include computed tomography scan of the abdomen and pelvis done as outpatient prior to admission and did not reveal any acute intra-abdominal process, kidney ultrasound and pelvic ultrasound, MRI of the lumbar spine which revealed evidence of herniated L3-L4 disc, at this point continue was pain medication, awaiting input from pain management, patient was seen by urology, she was also seen by neurosurgery, awaiting further recommendation On 01/11/2022 showed bladder and oriented 3. Patient still complaining of severe pain. Patient stating she needs Dilaudid every 3 hours to control the pain at this time pain services have been consulted awaiting consult. Reviewed with patient findings of multiple scans with no significant abnormalities. Orthopedic surgeons were consulted for MRA evidence of herniated L3 to L4 disc. This time patient denies chest pain or shortness breath. Patient denies nausea vomiting or diarrhea. Patient denies any urinary burning or frequency -01/12/2022 patient is alert and oriented 3. Status post epidural steroid injection. Patient will be DC'd home and follow-up outpatient in 4 weeks with pain services patient to follow-up with PCP for further management Patient Condition at Discharge: Stable Plan - Discharge Summary New Discharge Prescriptions: Continue Pantoprazole [Protonix] 40 mg PO DAILY HYDROcodone/APAP 10-325MG [[place] 10-325] 1 tab PO Q6H PRN PRN Reason: Pain traZODone HCL 50 mg PO HS Metoprolol Succinate (ER) [Toprol XL] 25 mg PO DAILY Atorvastatin [Lipitor] 40 mg PO HS #30 tab Fenofibrate [Lofibra] 160 mg PO DAILY #30 tab Melatonin 3 mg PO HS tablet rOPINIRole HCL [Requip] 0.25 mg PO TID #21 tablet Aspirin EC [Ecotrin Low Dose] 81 mg PO DAILY Isosorbide Mononitrate ER [Imdur] 30 mg PO DAILY #90 tab Docusate [Colace] 100 mg PO DAILY #30 capsule Insulin Aspart [NovoLOG Flexpen] See Protocol SQ AC-TID Discontinued Loperamide [Imodium] 2 mg PO TID PRN PRN Reason: Diarrhea Mirabegron [Myrbetriq] 50 mg PO DAILY Levofloxacin [Levaquin] 500 mg PO DAILY Cefdinir 300 mg PO BID Discharge Medication List Pantoprazole [Protonix] 40 mg PO DAILY 01/14/17 [History] HYDROcodone/APAP 10-325MG [[place] 10-325] 1 tab PO Q6H PRN 08/19/18 [History] traZODone HCL 50 mg PO HS 09/07/18 [History] Metoprolol Succinate (ER) [Toprol XL] 25 mg PO DAILY 01/13/19 [History] Atorvastatin [Lipitor] 40 mg PO HS #30 tab 01/15/19 [Rx] Fenofibrate [Lofibra] 160 mg PO DAILY #30 tab 01/15/19 [Rx] Melatonin 3 mg PO HS tablet 01/15/19 [Rx] rOPINIRole HCL [Requip] 0.25 mg PO TID #21 tablet 07/27/19 [Rx] Aspirin EC [Ecotrin Low Dose] 81 mg PO DAILY 01/03/21 [History] Isosorbide Mononitrate ER [Imdur] 30 mg PO DAILY #90 tab 06/23/22 [Rx] Docusate [Colace] 100 mg PO DAILY #30 capsule 01/01/22 [Rx] Insulin Aspart [NovoLOG Flexpen] See Protocol SQ AC-TID 01/05/22 [History] Follow up Appointment(s)/Referral(s): Fernando Chairez MD [Primary Care Provider] - 1-2 days Patient Instructions/Handouts: Epidural Steroid Injection (DC) Discharge/Stand Alone Forms: [facility] Pain/[place] Instructions
== END 2022-01-12 17:35 | disposition home or self-care (01) | DRG 690 ==
LOC: EC 15:50 → 5NMEDONC 19:07 → 4SSUR 22:44
PROVIDERS: ADMIT Internal Medicine; ATTEND Internal Medicine
PROC: 3E0R33Z Introduction of Anti-inflammatory into Spinal Canal, Percutaneous Approach (ICD-10-PCS; principal; 2022-01-12 07:30)
DX: N13.6 Pyonephrosis (principal); D69.3 Immune thrombocytopenic purpura; E11.9 Type 2 diabetes mellitus without complications; I10 Essential (primary) hypertension; I25.10 Atherosclerotic heart disease of native coronary artery without angina pectoris; M79.7 Fibromyalgia; F17.210 Nicotine dependence, cigarettes, uncomplicated; K58.1 Irritable bowel syndrome with constipation; E86.0 Dehydration; E78.5 Hyperlipidemia, unspecified; F41.9 Anxiety disorder, unspecified; R33.9 Retention of urine, unspecified; M51.16 Intervertebral disc disorders with radiculopathy, lumbar region; M51.17 Intervertebral disc disorders with radiculopathy, lumbosacral region; M48.061 Spinal stenosis, lumbar region without neurogenic claudication; M48.07 Spinal stenosis, lumbosacral region; M40.56 Lordosis, unspecified, lumbar region; K21.9 Gastro-esophageal reflux disease without esophagitis; K44.9 Diaphragmatic hernia without obstruction or gangrene; G89.29 Other chronic pain; Z28.310 Unvaccinated for COVID-19; Z87.440 Personal history of urinary (tract) infections; Z87.19 Personal history of other diseases of the digestive system; Z79.51 Long term (current) use of inhaled steroids; Z87.11 Personal history of peptic ulcer disease; I25.2 Old myocardial infarction; Z95.5 Presence of coronary angioplasty implant and graft; Z85.118 Personal history of other malignant neoplasm of bronchus and lung; Z90.49 Acquired absence of other specified parts of digestive tract; Z79.899 Other long term (current) drug therapy; Z79.82 Long term (current) use of aspirin; Z79.4 Long term (current) use of insulin; Z86.19 Personal history of other infectious and parasitic diseases; Z90.2 Acquired absence of lung [part of]
CPT/HCPCS: 36415; 62323; 72148; 73502; 74018; 76770; 76857; 80053; 81001; 82150; 83036; 83605; 83690; 84484; 85025; 87040; 87086; 96361; 96374; 99152; 99285

== ENCOUNTER → 2022-01-18 | Outpatient (CLI) | payer MEDICARE, OTHER ==
[2022-01-18 18:33] LABS: Basophils # (A) 0.05 X 10*3/uL (0.00-0.10); Basophils % (A) 0.6 %; Eosinophils # (A) 0.27 X 10*3/uL (0.04-0.35); Eosinophils % (A) 3.3 %; HCT 44.3 % (37.2-46.3); HGB 14.2 g/dL (12.0-15.0); Immature Grans, Automated 0.5 %; Lymphocytes # (A) 1.94 X 10*3/uL (0.90-5.00); Lymphocytes % (A) 23.7 %; MCHC 32.1 g/dL (32.0-37.0); MCV 90.4 fL (80.0-97.0); Mean Platelet Volume 11.6 fL (9.5-12.2); Monocytes # (A) 0.86 X 10*3/uL (0.20-1.00); Monocytes % (A) 10.5 %; NRBC Per 100 WBC 0 /100 WBCS (0.0-0.0); Neutrophils # (A) 5.01 X 10*3/uL (1.80-7.70); Neutrophils % (A) 61.4 %; Platelet Count 367 X 10*3/uL (140-440); RDW 13.8 % (11.5-14.5); WBC 8.17 X 10*3/uL (4.50-10.00)
[2022-01-18 19:24] LABS: INR 0.91 (0.90-1.11); Prothrombin Time 10.1 sec (9.9-11.9)
[2022-01-18 19:27] LABS: African American GFR (CKD) 98.3 (60.0-200.0); Anion Gap 14.1 mmol/L (10.00-18.00); BUN/Creat Ratio 36.02 Ratio (12.00-20.00); Blood Urea Nitrogen 25.5 mg/dL (9.0-27.0); Calcium 9.6 mg/dL (8.7-10.3); Carbon Dioxide 21.2 mmol/L (20.0-27.5); Magnesium 1.9 mg/dL (1.5-2.4); Non-African American GFR(CKD) 84.8 (60.0-200.0); Potassium 4.6 mmol/L (3.5-5.5)
== END | disposition home or self-care (01) ==
LOC: LABWHC1 13:54
PROVIDERS: ATTEND Internal Medicine Interventional Cardiology
DX: E11.641 Type 2 diabetes mellitus with hypoglycemia with coma (principal); I25.119 Atherosclerotic heart disease of native coronary artery with unspecified angina pectoris; J41.0 Simple chronic bronchitis; E27.8 Other specified disorders of adrenal gland; F17.200 Nicotine dependence, unspecified, uncomplicated
CPT/HCPCS: 36415; 80048; 83735; 85025; 85610

== ENCOUNTER 2022-02-02 16:25 | Observation (INO) | payer MEDICARE, OTHER ==
--- NOTE | 2022-02-02 17:05 | ED ---
General Adult HPI - General Chief complaint: Recheck/Abnormal Lab/Rx Stated complaint: Pseudoaneurysm Time Seen by Provider: 02/02/22 16:53 Source: patient Mode of arrival: ambulatory Limitations: no limitations - History of Present Illness Initial comments: Dictation was produced using [employer] dictation software. please excuse any grammatical, word or spelling errors. Chief Complaint: 71-year-old female presents to the ER for pseudoaneurysm of the left groin History of Present Illness: 71-year-old female 10 days ago at [facility] she had multiple coronary artery stents placed. She had a outpatient ultrasound ordered by one of our local apparatus lineman. She found that patient has pseudoaneurysm measuring 1.9 cm. Patient states that she otherwise feels well. She has no other complaints except for some bruising around her left groin. States that her right groin appears to be much more benign appearing. Denies any numbness and paresthesias to the leg. The ROS documented in this emergency department record has been reviewed and confirmed by me. Those systems with pertinent positive or negative responses have been documented in the HPI. All other systems are other negative and/or noncontributory. PHYSICAL EXAM: General Impression: Alert and oriented x3, not in acute distress HEENT: Normocephalic atraumatic, extra-ocular movements intact, pupils equal and reactive to light bilaterally, mucous membranes moist. Cardiovascular: Heart regular rate and rhythm Chest: Able to complete full sentences, no retractions, no tachypnea Musculoskeletal: Pulses present and equal in all extremities, no peripheral edema Motor: no focal deficits noted Neurological: CN II-XII grossly intact, no focal motor or sensory deficits noted Left groin: Ecchymoses without any obvious mass to be no bleeding Skin: Intact with no visualized rashes Psych: Normal affect and mood ED course: 71-year-old female presents emergency department for abnormal ultrasound done outpatient. She just had the ultrasound performed today. Ultrasound shows 1.9 cm left groin pseudoaneurysm. Vital signs upon arrival are within acceptable limits. Case was discussed with Dr. Acuna who requests that patient can be admitted to observation for treatment or if she felt fine and that she could be discharged to home and follow up in the office for treatment. Discussed was held patient at 6:25 PM. She began complaining to me of right lower quadrant abdominal pain. She has had abdominal surgery in the past however still has her appendix. Abdominal exam reveals that patient has some right lower quadrant tenderness at McBurney's point. Negative rebound. Laboratory evaluation obtained. CBC, metabolic panel is unremarkable. Abdominal labs are negative. Computed tomography scan of the abdomen and pelvis shows no acute processes. No acute appendicitis. Radiology does report biliary tree did dilatation and to correlated with abdominal labs. Her liver labs are unremarkable. Patient be admitted with constipation no cardiology for pseudoaneurysm treatment. - Related Data Home Medications Medication Instructions Recorded Confirmed Pantoprazole [Protonix] 40 mg PO DAILY 01/14/17 02/02/22 HYDROcodone/APAP 10-325MG [[place] 1 tab PO HS 08/19/18 02/02/22 10-325] traZODone HCL 50 mg PO HS 09/07/18 02/02/22 Metoprolol Succinate (ER) [Toprol 25 mg PO DAILY 01/13/19 02/02/22 XL] Aspirin EC [Ecotrin Low Dose] 81 mg PO DAILY 01/03/21 02/02/22 Insulin Aspart [NovoLOG Flexpen] See Protocol SQ AC-TID 01/05/22 02/02/22 ALPRAZolam [Xanax] 0.25 mg PO BID PRN 02/02/22 02/02/22 Clopidogrel [Plavix] 75 mg PO DAILY 02/02/22 02/02/22 HYDROcodone/APAP 10-325MG [[place] 1 tab PO DAILY PRN 02/02/22 02/02/22 10-325] Loperamide [Imodium] 2 mg PO TID PRN 02/02/22 02/02/22 Previous Rx's Medication Instructions Recorded Atorvastatin [Lipitor] 40 mg PO HS #30 tab 01/15/19 Fenofibrate [Lofibra] 160 mg PO DAILY #30 tab 01/15/19 Melatonin 3 mg PO HS tablet 01/15/19 rOPINIRole HCL [Requip] 0.25 mg PO TID #21 tablet 07/27/19 Isosorbide Mononitrate ER [Imdur] 30 mg PO DAILY #90 tab 09/15/21 Docusate [Colace] 100 mg PO DAILY #30 capsule 01/01/22 Allergies Allergy/AdvReac Type Severity Reaction Status Date / Time No Known Allergies Allergy Verified 02/02/22 16:45 Review of Systems ROS Statement: Those systems with pertinent positive or pertinent negative responses have been documented in the HPI. ROS Other: All systems not noted in ROS Statement are negative. Past Medical History Past Medical History: Coronary Artery Disease (CAD), Diabetes Mellitus, Fibromyalgia, GERD/Reflux, Myocardial Infarction ([place]) Additional Past Medical History / Comment(s): Idiopathic thrombocytopenia purpura, IBS, diverticulitis, hiatal hernia, 2 herniated discs-L3/L4, Restless Leg Syndrome, gastritis, superficial gastric ulcers. nodule on lt lung-Cancer Stg 1 Last Myocardial Infarction Date:: 01/2017 History of Any Multi-Drug Resistant Organisms: None Reported Past Surgical History: Adenoidectomy, Bladder Surgery, Bowel Resection, Cholecystectomy, Heart Catheterization With Stent, Hernia Repair, Hysterectomy, Tonsillectomy Additional Past Surgical History / Comment(s): BLADDER SUSPENSION x 2, breast biopsy x3, bowel resection due to rupture. left upper lobe of lung removed per CA, Past Anesthesia/Blood Transfusion Reactions: No Reported Reaction Additional Past Anesthesia/Blood Transfusion Reaction / Comment(s): Pt received blood in 2005 due to ITP without reaction. Date of Last Stent Placement:: 01/2017 Past Psychological History: Anxiety Smoking Status: Current every day smoker Past Alcohol Use History: None Reported Past Drug Use History: None Reported - Past Family History Mother Family Medical History: Cancer, Diabetes Mellitus Additional Family Medical History / Comment(s): Father had a defibrillator. He of heart dx in his 80's Father Family Medical History: Diabetes Mellitus Additional Family Medical History / Comment(s): HEART DISEASE General Exam Limitations: no limitations Course Vital Signs 02/02/22 02/02/22 02/02/22 16:44 17:24 19:00 Temperature 98 F Pulse Rate 100 86 91 Respiratory 20 18 22 Rate Blood Pressure 118/53 119/63 139/62 O2 Sat by Pulse 96 97 96 Oximetry 02/02/22 02/02/22 20:30 21:51 Temperature Pulse Rate 78 88 Respiratory 16 16 Rate Blood Pressure 149/63 136/83 O2 Sat by Pulse 98 98 Oximetry Medical Decision Making - Lab Data Result diagrams: 02/02/22 19:04 02/02/22 19:04 Lab Results 02/02/22 02/02/22 Range/Units 19:04 19:04 WBC 6.9 (3.8-10.6) k/uL RBC 4.20 (3.80-5.40) m/uL Hgb 12.5 (11.4-16.0) gm/dL Hct 37.4 (34.0-46.0) % MCV 89.1 D (80.0-100.0) fL MCH 29.7 (25.0-35.0) pg MCHC 33.3 (31.0-37.0) g/dL RDW 13.0 (11.5-15.5) % Plt Count 274 (150-450) k/uL MPV 8.7 Neutrophils % 52 % Lymphocytes % 33 % Monocytes % 8 % Eosinophils % 5 % Basophils % 1 % Neutrophils # 3.6 (1.3-7.7) k/uL Lymphocytes # 2.3 (1.0-4.8) k/uL Monocytes # 0.6 (0-1.0) k/uL Eosinophils # 0.3 (0-0.7) k/uL Basophils # 0.1 (0-0.2) k/uL Sodium 137 (137-145) mmol/L Potassium 4.8 (3.5-5.1) mmol/L Chloride 104 (98-107) mmol/L Carbon Dioxide 26 (22-30) mmol/L Anion Gap 7 mmol/L BUN 12 (7-17) mg/dL Creatinine 0.40 L (0.52-1.04) mg/dL Est GFR (CKD-EPI)AfAm >90 (>60 ml/min/1.73 sqM) Est GFR (CKD-EPI)NonAf >90 (>60 ml/min/1.73 sqM) Glucose 213 H (74-99) mg/dL Calcium 9.1 (8.4-10.2) mg/dL Total Bilirubin 0.6 (0.2-1.3) mg/dL AST 25 (14-36) U/L ALT 15 (4-34) U/L Alkaline Phosphatase 108 (38-126) U/L Total Protein 6.4 (6.3-8.2) g/dL Albumin 3.9 (3.5-5.0) g/dL Disposition Clinical Impression: Pseudoaneurysm Disposition: ADMITTED IP TO THIS [facility] Condition: Fair
[2022-02-02] MEDS ORDERED: MORPHINE SULFATE 4 MG/ML SYRINGE IV STA (19:09)
[2022-02-02 19:26] LABS: Basophils # (A) 0.1 k/uL (0-0.2); Basophils % (A) 1 %; Eosinophils # (A) 0.3 k/uL (0-0.7); Eosinophils % (A) 5 %; HCT 37.4 % (34.0-46.0); HGB 12.5 gm/dL (11.4-16.0); Lymphocytes # (A) 2.3 k/uL (1.0-4.8); Lymphocytes % (A) 33 %; MCH 29.7 pg (25.0-35.0); MCHC 33.3 g/dL (31.0-37.0); Mean Platelet Volume 8.7; Monocytes # (A) 0.6 k/uL (0-1.0); Monocytes % (A) 8 %; Neutrophils # (A) 3.6 k/uL (1.3-7.7); Neutrophils % (A) 52 %; Platelet Count 274 k/uL (150-450); WBC 6.9 k/uL (3.8-10.6)
[2022-02-02 19:37] LABS: ALT 15 U/L (4-34); AST 25 U/L (14-36); African American GFR (CKD) >90 (>60 ml/min/1.73 sqM); Albumin 3.9 g/dL (3.5-5.0); Alkaline Phosphatase 108 U/L (38-126); Anion Gap 7 mmol/L; Blood Urea Nitrogen 12 mg/dL (7-17); Calcium 9.1 mg/dL (8.4-10.2); Carbon Dioxide 26 mmol/L (22-30); Chloride 104 mmol/L (98-107); Glucose 213 mg/dL (74-99); Non-African American GFR(CKD) >90 (>60 ml/min/1.73 sqM); Sodium 137 mmol/L (137-145); Total Bilirubin 0.6 mg/dL (0.2-1.3); Total Protein 6.4 g/dL (6.3-8.2)
[2022-02-02 19:42] LABS: MCV 89.1 fL (80.0-100.0)
[2022-02-02 19:46] LABS: Potassium 4.8 mmol/L (3.5-5.1)
[2022-02-02] MEDS ORDERED: NALOXONE 0.4 MG/ML 1 ML VIAL IV PRN (20:41)
--- NOTE | 2022-02-02 21:08 | CT ---
EXAMINATION TYPE: CT abdomen pelvis w con DATE OF EXAM: 02/02/2022 HISTORY: 71 F with right sided abd pain. pt had stent surgery on the . CT DLP: 617.9mGycm Automated Exposure Control for Dose Reduction was Utilized. CONTRAST: CT scan of the abdomen and pelvis is performed with IV Contrast, patient injected with 100m l mL of Isovue 300. COMPARISON: 01/01/2022 FINDINGS: LUNG BASES: No acute findings. LIVER/GB: There is intrahepatic biliary tree dilatation, relatively mild, but new since the CT of 11/24, request LFT correlation. Also, the extrahepatic biliary tree is slightly more dilated than th at seen on the 132[address] CT. PANCREAS: No significant abnormality is seen. SPLEEN: No significant abnormality is seen. ADRENALS: Left adrenal nodule is redemonstrated. KIDNEYS: No acute findings. Left 3.7 cm cyst with left-sided calcification redemonstrated. BOWEL: No acute findings. No inflammatory process. Colonic stool volume mildly excessive. PERITONEAL CAVITY: No pneumoperitoneum or fluid. LYMPH NODES: No greater than 1cm abdominal or pelvic lymph nodes are appreciated. VASCULATURE: No acute findings. 1Nonaneurysmal advanced atherosclerotic intimal calcifications and in traluminal thrombus noted throughout the visualized arterial anatomy, including the coronary arteries . OSSEOUS STRUCTURES: No significant abnormality is seen. IMPRESSION: Biliary tree dilation as described.
[2022-02-02] MEDS: HYDROcodone/APAP 5-325MG 1 EACH TAB PO PRN (23:03)
[2022-02-03] MEDS ORDERED: ASPIRIN 81 MG PO SCH (09:00)
[2022-02-03] MEDS ORDERED: CLOPIDOGREL 75 MG TAB PO SCH (09:00)
--- NOTE | 2022-02-03 09:40 | P.CRDCN ---
History of Present Illness Consult date: 02/03/22 History of present illness: HISTORY OF PRESENT ILLNESS: This is a 71-year-old female with a past medical history significant for coronary artery disease, hypertension, hyperlipidemia, diabetes, and nicotine dependence. Patient follows in the office with Dr. Veliz and was last seen in the office in August 2021. We have been asked to see the patient in consultation for pseudoaneurysm. Patient examined at the bedside. Patient states on 01/24/2022 she underwent cardiac catheterization with 3 stents placed at [facility]. She is unsure which vessels were stented. She states she has been feeling well since her procedure. The patient underwent ultrasound revealing 1.9 cm left groin pseudoaneurysm. She does have a bruit noted in the left groin. She denies chest pain or pressure. Denies SOB. * EKG: not available at this time * Laboratory data: WBC 6.9. Hemoglobin 12.5. Platelet count 274. Sodium 137. Potassium 4.8. BUN 12. Creatinine 0.40. * Current home cardiac medications include metoprolol succinate 25 mg daily, Imdur 30 mg daily, fenofibrate 160 mg daily, Plavix 75 mg daily, Lipitor 40 mg at night, aspirin 81 mg daily * Most recent echocardiogram obtained in December 2020 revealing normal ejection fraction, mild MR, mild TR * Cardiac catheterization history: August 2021 revealing 20% mid LAD and 100% ostial RCA. Patient did have recent stenting at [facility] although the details of this are unknown. REVIEW OF SYSTEMS: At the time of my exam: CONSTITUTIONAL: Denies fever or chills. HEENT: Denies blurred vision, vision changes, or eye pain. Denies hemoptysis CARDIOVASCULAR: Denies chest pain. Denies orthopnea. Denies PND. Denies palpitations RESPIRATORY: Denies shortness of breath. GASTROINTESTINAL: Denies abdominal pain. Denies nausea or vomiting. HEMATOLOGIC: Denies bleeding disorders. GENITOURINARY: Denies any blood in urine. SKIN: Denies pruitis. Denies rash. PHYSICAL EXAM: VITAL SIGNS: Reviewed. GENERAL: Well-developed in no acute distress. HEENT: Head is normocephalic. Pupils are equal, round. Sclerae anicteric. Mucous membranes of the mouth are moist. Neck supple. No JVD or thyromegaly LUNGS: Respirations even and unlabored. Lungs essentially clear to auscultation bilaterally. HEART: Regular rate and rhythm. S1 and S2 heard. ABDOMEN: Soft. Nondistended. Nontender. EXTREMITIES: Normal range of motion. No clubbing or cyanosis. Peripheral pulses intact. No lower extremity edema. Left groin bruit auscultated NEUROLOGIC: Awake and alert. Oriented x 3. ASSESSMENT: Left groin pseudoaneurysm Coronary artery disease with recent stent placement 3, per patient, details unknown Hypertension Hyperlipidemia Diabetes Nicotine dependence PLAN: Resume home cardiac medications Continue aspirin and plavix due to recent stent placement Consult interventional radiology for left groin pseudoaneurysm Further recommendations pending patient's course Nurse practitioner note has been reviewed by physician. Signing provider agrees with the documented findings, assessment, and plan of care. Past Medical History Past Medical History: Coronary Artery Disease (CAD), Diabetes Mellitus, Fibromyalgia, GERD/Reflux, Myocardial Infarction ([place]) Additional Past Medical History / Comment(s): Idiopathic thrombocytopenia purpura, IBS, diverticulitis, hiatal hernia, 2 herniated discs-L3/L4, Restless Leg Syndrome, gastritis, superficial gastric ulcers. nodule on lt lung-Cancer Stg 1 Last Myocardial Infarction Date:: 01/2017 History of Any Multi-Drug Resistant Organisms: None Reported Past Surgical History: Adenoidectomy, Bladder Surgery, Bowel Resection, Cholecystectomy, Heart Catheterization With Stent, Hernia Repair, Hysterectomy, Tonsillectomy Additional Past Surgical History / Comment(s): BLADDER SUSPENSION x 2, breast biopsy x3, bowel resection due to rupture. left upper lobe of lung removed per CA, Past Anesthesia/Blood Transfusion Reactions: No Reported Reaction Additional Past Anesthesia/Blood Transfusion Reaction / Comment(s): Pt received blood in 2005 due to ITP without reaction. Date of Last Stent Placement:: 01/2017 Past Psychological History: Anxiety Additional Psychological History / Comment(s): . Smoking Status: Current every day smoker Past Alcohol Use History: None Reported Additional Past Alcohol Use History / Comment(s): STARTED SMOKING AT AGE 18- SMOKED 1PPD AND now states is down to about 5 cigarettes/day Past Drug Use History: None Reported - Past Family History Mother Family Medical History: Cancer, Diabetes Mellitus Additional Family Medical History / Comment(s): Father had a defibrillator. He of heart dx in his 80's Father Family Medical History: Diabetes Mellitus Additional Family Medical History / Comment(s): HEART DISEASE Medications and Allergies Home Medications Medication Instructions Recorded Confirmed Type Pantoprazole [Protonix] 40 mg PO DAILY 01/14/17 02/02/22 History HYDROcodone/APAP 10-325MG [[place] 1 tab PO HS 08/19/18 02/02/22 History 10-325] traZODone HCL 50 mg PO HS 09/07/18 02/02/22 History Metoprolol Succinate (ER) [Toprol 25 mg PO DAILY 01/13/19 02/02/22 History XL] Atorvastatin [Lipitor] 40 mg PO HS #30 tab 01/15/19 02/02/22 Rx Fenofibrate [Lofibra] 160 mg PO DAILY #30 tab 01/15/19 02/02/22 Rx Melatonin 3 mg PO HS tablet 01/15/19 02/02/22 Rx rOPINIRole HCL [Requip] 0.25 mg PO TID #21 tablet 07/27/19 02/02/22 Rx Aspirin EC [Ecotrin Low Dose] 81 mg PO DAILY 01/03/21 02/02/22 History Isosorbide Mononitrate ER [Imdur] 30 mg PO DAILY #90 tab 09/15/21 02/02/22 Rx Docusate [Colace] 100 mg PO DAILY #30 capsule 01/01/22 02/02/22 Rx Insulin Aspart [NovoLOG Flexpen] See Protocol SQ AC-TID 01/05/22 02/02/22 History ALPRAZolam [Xanax] 0.25 mg PO BID PRN 02/02/22 02/02/22 History Clopidogrel [Plavix] 75 mg PO DAILY 02/02/22 02/02/22 History HYDROcodone/APAP 10-325MG [[place] 1 tab PO DAILY PRN 02/02/22 02/02/22 History 10-325] Loperamide [Imodium] 2 mg PO TID PRN 02/02/22 02/02/22 History Allergies Allergy/AdvReac Type Severity Reaction Status Date / Time No Known Allergies Allergy Verified 02/02/22 16:45 Physical Exam Vitals: Vital Signs Temp Pulse Pulse Resp BP BP Pulse Ox 02/03/22 07:00 98 F 80 16 105/64 96 02/03/22 02:19 98.2 F 89 17 104/54 96 02/02/22 23:06 98.2 F 83 18 102/46 95 02/02/22 21:51 88 16 136/83 98 02/02/22 20:30 78 16 149/63 98 02/02/22 19:00 91 22 139/62 96 02/02/22 17:24 86 18 119/63 97 02/02/22 16:44 98 F 100 20 118/53 96 Intake and Output 02/02/22 02/03/22 02/03/22 22:59 06:59 14:59 Other: # Voids 1 Weight 47.627 kg Results 02/02/22 19:04 02/02/22 19:04 Cardiac Enzymes 02/02/22 Range/Units 19:04 AST 25 (14-36) U/L CBC 02/02/22 Range/Units 19:04 WBC 6.9 (3.8-10.6) k/uL RBC 4.20 (3.80-5.40) m/uL Hgb 12.5 (11.4-16.0) gm/dL Hct 37.4 (34.0-46.0) % Plt Count 274 (150-450) k/uL Comprehensive Metabolic Panel 02/02/22 Range/Units 19:04 Sodium 137 (137-145) mmol/L Potassium 4.8 (3.5-5.1) mmol/L Chloride 104 (98-107) mmol/L Carbon Dioxide 26 (22-30) mmol/L BUN 12 (7-17) mg/dL Creatinine 0.40 L (0.52-1.04) mg/dL Glucose 213 H (74-99) mg/dL Calcium 9.1 (8.4-10.2) mg/dL AST 25 (14-36) U/L ALT 15 (4-34) U/L Alkaline Phosphatase 108 (38-126) U/L Total Protein 6.4 (6.3-8.2) g/dL Albumin 3.9 (3.5-5.0) g/dL Current Medications Generic Name Dose Route Start Last Admin Trade Name Freq PRN Reason Stop Dose Admin Hydrocodone Bitart/Acetaminophen 1 each 02/02/22 21:20 02/02/22 23:03 Hydrocodone/Apap 5-325mg 1 Each Tab PO 1 each Q4HR PRN Administration Pain Aspirin 81 mg 02/03/22 09:00 Aspirin 81 Mg PO DAILY [facility] Atorvastatin Calcium 40 mg 02/03/22 21:00 Atorvastatin 40 Mg Tab PO HS [facility] Clopidogrel Bisulfate 75 mg 02/03/22 09:00 Clopidogrel 75 Mg Tab PO DAILY [facility] Fenofibrate 160 mg 02/03/22 09:00 Fenofibrate 160 Mg Tab PO DAILY [facility] Isosorbide Mononitrate 30 mg 02/03/22 09:00 Isosorbide Mononitrate Er 30 Mg Tab.Er.24h PO DAILY [facility] Metoprolol Succinate 25 mg 02/03/22 09:00 Metoprolol Succinate (Er) 25 Mg Tab.Er.24h PO DAILY [facility] Naloxone HCl 0.2 mg 02/02/22 20:41 Naloxone 0.4 Mg/Ml 1 Ml Vial IV Q2M PRN Opioid Reversal Intake and Output 02/02/22 02/03/22 02/03/22 22:59 06:59 14:59 Other: # Voids 1 Weight 47.627 kg 02/02/22 19:04 02/02/22 19:04
[2022-02-03] MEDS ORDERED: ALPRAZolam 0.25 MG TAB PO PRN (10:03)
[2022-02-03] MEDS: FENOFIBRATE 160 MG TAB PO SCH (10:04)
[2022-02-03] MEDS ORDERED: DEXTROSE 50% SYRINGE 50 ML IVP PRN ×2 (10:05)
[2022-02-03] MEDS: ISOSORBIDE MONONITRATE ER 30 MG TAB.ER.24H PO SCH (10:08)
[2022-02-03] MEDS: METOPROLOL SUCCINATE (ER) 25 MG TAB.ER.24H PO SCH (10:11)
--- NOTE | 2022-02-03 10:11 | P.HPIM ---
History of Present Illness H&P Date: 02/03/22 Chief Complaint: Pseudoaneurysm This is a 71-year-old female patient who presented with concerns of pseudoaneurysm following cardiac stent placement 10 days ago at [facility]. Patient reports on 01/24/2022 she underwent cardiac catheterization with 3 stents placed at [facility]. Patient states that she was discharged home and noticed yesterday increased lump and bruising to left groin site. Patient has past medical history of coronary artery disease, hypertension, hyperlipidemia, diabetes nicotine dependence. CT of abdomen and pelvis completed showing biliary tree dilation. Hemoglobin stable at 12.5. At this time cardiology services have been consulted. Per cardiology patient resumed on Plavix and aspirin due to recent stent placement. Interventional radiology also consulted. At this time patient denies chest pain or shortness breath. Patient denies nausea vomiting or diarrhea. Patient denies any urinary burning or frequency Review of Systems Please refer to HPI otherwise unremarkable Past Medical History Past Medical History: Coronary Artery Disease (CAD), Diabetes Mellitus, Fibromyalgia, GERD/Reflux, Myocardial Infarction (ID) Additional Past Medical History / Comment(s): Idiopathic thrombocytopenia purpura, IBS, diverticulitis, hiatal hernia, 2 herniated discs-L3/L4, Restless Leg Syndrome, gastritis, superficial gastric ulcers. nodule on lt lung-Cancer Stg 1 Last Myocardial Infarction Date:: 01/2017 History of Any Multi-Drug Resistant Organisms: None Reported Past Surgical History: Adenoidectomy, Bladder Surgery, Bowel Resection, Cholecystectomy, Heart Catheterization With Stent, Hernia Repair, Hysterectomy, Tonsillectomy Additional Past Surgical History / Comment(s): BLADDER SUSPENSION x 2, breast biopsy x3, bowel resection due to rupture. left upper lobe of lung removed per CA, Past Anesthesia/Blood Transfusion Reactions: No Reported Reaction Additional Past Anesthesia/Blood Transfusion Reaction / Comment(s): Pt received blood in 2005 due to ITP without reaction. Date of Last Stent Placement:: 01/2017 Past Psychological History: Anxiety Additional Psychological History / Comment(s): . Smoking Status: Current every day smoker Past Alcohol Use History: None Reported Additional Past Alcohol Use History / Comment(s): STARTED SMOKING AT AGE 18- SMOKED 1PPD AND now states is down to about 5 cigarettes/day Past Drug Use History: None Reported - Past Family History Mother Family Medical History: Cancer, Diabetes Mellitus Additional Family Medical History / Comment(s): Father had a defibrillator. He of heart dx in his 80's Father Family Medical History: Diabetes Mellitus Additional Family Medical History / Comment(s): HEART DISEASE Medications and Allergies Home Medications Medication Instructions Recorded Confirmed Type Pantoprazole [Protonix] 40 mg PO DAILY 01/14/17 02/02/22 History HYDROcodone/APAP 10-325MG [T[place]iler 1 tab PO HS 08/19/18 02/02/22 History 10-325] traZODone HCL 50 mg PO HS 09/07/18 02/02/22 History Metoprolol Succinate (ER) [Toprol 25 mg PO DAILY 01/13/19 02/02/22 History XL] Atorvastatin [Lipitor] 40 mg PO HS #30 tab 01/15/19 02/02/22 Rx Fenofibrate [Lofibra] 160 mg PO DAILY #30 tab 01/15/19 02/02/22 Rx Melatonin 3 mg PO HS tablet 01/15/19 02/02/22 Rx rOPINIRole HCL [Requip] 0.25 mg PO TID #21 tablet 07/27/19 02/02/22 Rx Aspirin EC [Ecotrin Low Dose] 81 mg PO DAILY 01/03/21 02/02/22 History Isosorbide Mononitrate ER [Imdur] 30 mg PO DAILY #90 tab 09/15/21 02/02/22 Rx Docusate [Colace] 100 mg PO DAILY #30 capsule 01/01/22 02/02/22 Rx Insulin Aspart [NovoLOG Flexpen] See Protocol SQ AC-TID 01/05/22 02/02/22 History ALPRAZolam [Xanax] 0.25 mg PO BID PRN 02/02/22 02/02/22 History Clopidogrel [Plavix] 75 mg PO DAILY 02/02/22 02/02/22 History HYDROcodone/APAP 10-325MG [[place] 1 tab PO DAILY PRN 02/02/22 02/02/22 History 10-325] Loperamide [Imodium] 2 mg PO TID PRN 02/02/22 02/02/22 History Allergies Allergy/AdvReac Type Severity Reaction Status Date / Time No Known Allergies Allergy Verified 02/02/22 16:45 Physical Exam Vitals: Vital Signs Temp Pulse Pulse Resp BP BP Pulse Ox 02/03/22 07:00 98 F 80 16 105/64 96 02/03/22 02:19 98.2 F 89 17 104/54 96 02/02/22 23:06 98.2 F 83 18 102/46 95 02/02/22 21:51 88 16 136/83 98 02/02/22 20:30 78 16 149/63 98 02/02/22 19:00 91 22 139/62 96 02/02/22 17:24 86 18 119/63 97 02/02/22 16:44 98 F 100 20 118/53 96 Intake and Output 02/02/22 02/03/22 02/03/22 22:59 06:59 14:59 Other: # Voids 1 Weight 47.627 kg Head normocephalic Neck supple Lungs clear to auscultation bilaterally no wheezing or crackles Heart regular rate and rhythm S1-S2, no rub or gallop Abdomen is soft nontender nondistended positive bowel sounds no hepatosplenomegaly Extremities no edema. Left groin bruising pseudoaneurysm Neuro alert and orientated to 3 Results CBC & Chem 7: 02/02/22 19:04 02/02/22 19:04 Labs: Abnormal Lab Results - Last 24 Hours (Table) 02/02/22 Range/Units 19:04 Creatinine 0.40 L (0.52-1.04) mg/dL Glucose 213 H (74-99) mg/dL Thrombosis Risk Factor Assmnt - Choose All That Apply Each Risk Factor Represents 2 Points: Age 61-74 years Thrombosis Risk Factor Assessment Total Risk Factor Score: 2 Thrombosis Risk Factor Assessment Level: Low Risk Assessment and Plan Assessment: 1. Left groin pseudoaneurysm following cardiac catheterization and stent 2. Coronary artery disease with recent stent placement [facility] on 01/24/2022 3. Diabetes mellitus type 2 with sliding scale insulin ordered 4. Essential hypertension 5. History of hyperlipidemia 6. Ongoing nicotine dependence. Patient educated greater than 3 minutes on smoking cessation 7. Restless leg syndrome At this time patient will be admitted Plavix and aspirin resumed per cardiology due to recent stent placement Cardiology services following Interventional radiology consulted repeat labs ordered Time with Patient: Greater than 30 (Greater than 60% of the total time spent in counseling and coordination of care)
[2022-02-03 11:37] LABS: Glucose,Whole Blood 212 mg/dL (70-110)
[2022-02-03] MEDS: THROMBIN (BOVINE) 5,000 UNIT VIAL MISCELLANE ONE ×2 (14:00→14:21)
--- NOTE | 2022-02-03 14:17 | US ---
ULTRASOUND GUIDED THROMBIN INJECTION OF LEFT GROIN PSEUDOANEURYSM: CLINICAL HISTORY: Abnormal ultrasound post cardiac catheterization compatible with left groin pseudoa neurysm FINDINGS: The procedure was explained to the patient. The risks, complications, benefits and alternatives were discussed and any questions were answered. Informed consent was obtained. Patient was placed supin e on the ultrasound table and prepped and draped in the usual sterile fashion. Utilizing a 27 gauge needle, approximately 100 units of thrombin was injected and there is complete thrombosis of the pseu doaneurysm. Pulses were stable preprocedure and post procedure. Postprocedural ultrasound confirmed a stable arterial waveforms and flow through the femoral artery system. Patient was stable throughout the procedure. All elements of maximal barrier sterile technique were utilized. IMPRESSION: 1. Successful ultrasound guided left groin pseudoaneurysm thrombin injection complete thrombosis of pseudoaneurysm.
[2022-02-03] MEDS: PANTOPRAZOLE 40 MG TABLET PO SCH (14:23)
[2022-02-03] MEDS: INSULIN ASPART (NovoLOG) 100 UNIT/ML VIAL SQ SCH ×3 (14:23→21:01)
--- NOTE | 2022-02-03 15:08 | P.PN ---
Progress Note - Text Progress Note Date: 02/03/22 per radiology hold aspirin and plavix for 24 hours will resume aspirin and plavix tomorrow
[2022-02-03] MEDS: HYDROcodone/APAP 5-325MG 1 EACH TAB PO PRN ×2 (15:30→21:05)
[2022-02-03] MEDS: LOPERAMIDE 2 MG CAP PO PRN ×2 (15:31→21:02)
[2022-02-03 16:39] LABS: Glucose,Whole Blood 314 mg/dL (70-110)
[2022-02-03 20:09] LABS: Glucose,Whole Blood 365 mg/dL (70-110)
[2022-02-03] MEDS ORDERED: MELATONIN 3 MG TABLET PO SCH (21:00)
[2022-02-03] MEDS ORDERED: traZODone HCL 50 MG TAB PO SCH (21:00)
[2022-02-03] MEDS ORDERED: ATORVASTATIN 40 MG TAB PO SCH (21:00)
[2022-02-04] MEDS: HYDROcodone/APAP 5-325MG 1 EACH TAB PO PRN ×2 (03:11→09:30)
[2022-02-04 05:46] LABS: Glucose,Whole Blood 284 mg/dL (70-110)
[2022-02-04] MEDS: INSULIN ASPART (NovoLOG) 100 UNIT/ML VIAL SQ SCH ×2 (06:02→13:15)
[2022-02-04] MEDS: PANTOPRAZOLE 40 MG TABLET PO SCH (06:03)
[2022-02-04 08:39] LABS: Basophils # (A) 0.03 X 10*3/uL (0.00-0.10); Basophils % (A) 0.5 %; Eosinophils # (A) 0.31 X 10*3/uL (0.04-0.35); Eosinophils % (A) 5.2 %; HCT 34.2 % (37.2-46.3); HGB 11.1 g/dL (12.0-15.0); Immature Grans, Automated 0.3 %; Lymphocytes # (A) 2.29 X 10*3/uL (0.90-5.00); Lymphocytes % (A) 38.2 %; MCH 29.3 pg (27.0-32.0); MCHC 32.5 g/dL (32.0-37.0); MCV 90.2 fL (80.0-97.0); Mean Platelet Volume 11.5 fL (9.5-12.2); Monocytes # (A) 0.68 X 10*3/uL (0.20-1.00); Monocytes % (A) 11.3 %; NRBC Per 100 WBC 0 /100 WBCS (0.0-0.0); Neutrophils # (A) 2.67 X 10*3/uL (1.80-7.70); Neutrophils % (A) 44.5 %; Platelet Count 255 X 10*3/uL (140-440); RBC 3.79 X 10*6/uL (4.10-5.20); RDW 13.3 % (11.5-14.5)
[2022-02-04 08:49] LABS: ALT 12 U/L (8-44); AST 8 U/L (13-35); African American GFR (CKD) 111.3 (60.0-200.0); Albumin 3.4 g/dL (3.8-4.9); Albumin/Globulin Ratio 1.79 (1.60-3.17); Alkaline Phosphatase 96 U/L (41-126); Calcium 9.4 mg/dL (8.7-10.3); Carbon Dioxide 24.3 mmol/L (20.0-27.5); Chloride 102 mmol/L (96-109); Globulin 1.9 g/dL (1.6-3.3); Glucose 255 mg/dL (70-110); Sodium 136 mmol/L (135-145); Total Bilirubin <0.15 mg/dL (0.30-1.20); Total Protein 5.3 g/dL (6.2-8.2)
[2022-02-04] MEDS ORDERED: DOCUSATE 100 MG CAP PO SCH (09:00)
[2022-02-04 09:06] VITALS: BP 104/60; PULSE 77; RESP 16; TEMP 97.8
--- NOTE | 2022-02-04 09:19 | P.PN ---
Subjective Progress Note Date: 02/04/22 HISTORY OF PRESENT ILLNESS: This is a 71-year-old female with a past medical history significant for coronary artery disease, hypertension, hyperlipidemia, diabetes, and nicotine dependence. Patient follows in the office with Dr. Veliz and was last seen in the office in August 2021. We have been asked to see the patient in consultation for pseudoaneurysm. Patient examined at the bedside. Patient states on 01/24/2022 she underwent cardiac catheterization with 3 stents placed at [facility]. She is unsure which vessels were stented. She states she has been feeling well since her procedure. The patient underwent ultrasound revealing 1.9 cm left groin pseudoaneurysm. She does have a bruit noted in the left groin. She denies chest pain or pressure. Denies SOB. * EKG: not available at this time * Laboratory data: WBC 6.9. Hemoglobin 12.5. Platelet count 274. Sodium 137. Potassium 4.8. BUN 12. Creatinine 0.40. * Current home cardiac medications include metoprolol succinate 25 mg daily, Imdur 30 mg daily, fenofibrate 160 mg daily, Plavix 75 mg daily, Lipitor 40 mg at night, aspirin 81 mg daily * Most recent echocardiogram obtained in December 2020 revealing normal ejection fraction, mild MR, mild TR * Cardiac catheterization history: August 2021 revealing 20% mid LAD and 100% ostial RCA. Patient did have recent stenting at [facility] although the details of this are unknown. 02/04: Patient denies any pain or discomfort to the left groin. Yesterday she she underwent a thrombin injection to the pseudoaneurysm in the left groin by Dr. Hernandez. Patient denies having any chest pain or shortness of breath. Hemoglobin today is 11.1. She's been afebrile, heart rate 79, blood pressure 104/60, pulse ox 96% on room air. PHYSICAL EXAM: VITAL SIGNS: Reviewed. GENERAL: Well-developed in no acute distress. HEENT: Head is normocephalic. Pupils are equal, round. Sclerae anicteric. Mucous membranes of the mouth are moist. Neck supple. No JVD or thyromegaly LUNGS: Respirations even and unlabored. Lungs essentially clear to auscultation bilaterally. HEART: Regular rate and rhythm. S1 and S2 heard. ABDOMEN: Soft. Nondistended. Nontender. EXTREMITIES: Normal range of motion. No clubbing or cyanosis. Peripheral pulses intact. No lower extremity edema. Left groin no bruit auscultated, no hematoma or edema. Mild ecchymosis. NEUROLOGIC: Awake and alert. Oriented x 3. ASSESSMENT: Left groin pseudoaneurysm Coronary artery disease with recent stent placement 3, per patient, details unknown Hypertension Hyperlipidemia Diabetes Nicotine dependence PLAN: Continue home cardiac medications Continue aspirin and plavix due to recent stent placement l Lift no more than 10-15 pounds. The patient is cleared for discharge from cardiology. Plan for follow-up with Dr. Veliz in the office In one week. Nurse practitioner note has been reviewed by physician. Signing provider agrees with the documented findings, assessment, and plan of care. Objective - Vital Signs Vital signs: Vital Signs Temp 97.8 F 02/04/22 08:00 Pulse 77 02/04/22 08:00 Resp 16 02/04/22 08:00 BP 104/60 02/04/22 08:00 Pulse Ox 96 02/04/22 08:00 FiO2 Intake & Output 02/03/22 02/04/22 02/04/22 18:59 06:59 18:59 Intake Total 658 Balance 658 Intake: Oral 658 Other: Voiding Method Toilet Toilet # Voids 1 2 # Bowel Movements 1 1 - Labs CBC & Chem 7: 02/04/22 05:07 02/04/22 05:07 Labs: Abnormal Lab Results - Last 24 Hours (Table) 02/02/22 02/03/22 02/03/22 Range/Units 19:04 11:35 16:37 RBC (4.10-5.20) X 10*6/uL Hgb (12.0-15.0) g/dL Hct (37.2-46.3) % Anion Gap (10.00-18.00) mmol/L Creatinine (0.6-1.5) mg/dL BUN/Creatinine Ratio (12.00-20.00) Ratio Glucose (70-110) mg/dL POC Glucose (mg/dL) 212 H 314 H (70-110) mg/dL Hemoglobin A1c 10.8 H (0.0-6.0) % Total Bilirubin (0.30-1.20) mg/dL AST (13-35) U/L Total Protein (6.2-8.2) g/dL Albumin (3.8-4.9) g/dL 02/03/22 02/04/22 02/04/22 Range/Units 20:02 05:07 05:07 RBC 3.79 L (4.10-5.20) X 10*6/uL Hgb 11.1 L (12.0-15.0) g/dL Hct 34.2 L (37.2-46.3) % Anion Gap 9.70 L (10.00-18.00) mmol/L Creatinine 0.5 L (0.6-1.5) mg/dL BUN/Creatinine Ratio 26.00 H (12.00-20.00) Ratio Glucose 255 H (70-110) mg/dL POC Glucose (mg/dL) 365 H (70-110) mg/dL Hemoglobin A1c (0.0-6.0) % Total Bilirubin <0.15 L (0.30-1.20) mg/dL AST 8 L (13-35) U/L Total Protein 5.3 L (6.2-8.2) g/dL Albumin 3.4 L (3.8-4.9) g/dL 02/04/22 Range/Units 05:44 RBC (4.10-5.20) X 10*6/uL Hgb (12.0-15.0) g/dL Hct (37.2-46.3) % Anion Gap (10.00-18.00) mmol/L Creatinine (0.6-1.5) mg/dL BUN/Creatinine Ratio (12.00-20.00) Ratio Glucose (70-110) mg/dL POC Glucose (mg/dL) 284 H (70-110) mg/dL Hemoglobin A1c (0.0-6.0) % Total Bilirubin (0.30-1.20) mg/dL AST (13-35) U/L Total Protein (6.2-8.2) g/dL Albumin (3.8-4.9) g/dL
[2022-02-04] MEDS: FENOFIBRATE 160 MG TAB PO SCH (09:25)
[2022-02-04] MEDS: NICOTINE 14MG/24HR PATCH TRANSDERM SCH ×2 (09:25→09:37)
[2022-02-04] MEDS: ISOSORBIDE MONONITRATE ER 30 MG TAB.ER.24H PO SCH (09:25)
[2022-02-04] MEDS: METOPROLOL SUCCINATE (ER) 25 MG TAB.ER.24H PO SCH (09:25)
--- NOTE | 2022-02-04 11:13 | US ---
EXAMINATION TYPE: US lower ext pseudo artery LT DATE OF EXAM: 02/04/2022 COMPARISON: 02/02/2022 CLINICAL HISTORY: left groin pseudoaneurysm. Left injection was performed yesterday. EXAM PERFORMED: Grayscale and color Doppler duplex imaging performed of the groin, post cardiac arleen ter to assess for pseudoaneurysm. SIDE PERFORMED: Left Color and Waveform Doppler performed to assess for the presence of pseudoaneurysm; Is there ultrasound evidence of a pseudoaneurysm: yes Is there evidence of AV shunting: no Is there a fluid collection present: no IMPRESSION: Left-sided pseudoaneurysm persists with approximately 40% thrombosis noted.
--- NOTE | 2022-02-04 11:52 | P.DS ---
Providers Date of admission: 02/02/22 20:41 Expected date of discharge: 02/04/22 Attending physician: Fernando Chairez Consults: 02/02/22 18:28 Consult Physician Routine Consulting Provider: Stan Mccracken Consult Reason/Comments: pseudoaneurysm Do you want consulting provider notified?: Already Contacted 02/03/22 10:42 Consult Physician Routine Consulting Provider: Fannie Mccall Consult Reason/Comments: Biliary duct dilation Do you want consulting provider notified?: Yes Primary care physician: [facility] Hospital Course: Diagnosis on discharge: 1. Left groin pseudoaneurysm following cardiac catheterization and stent 2. Coronary artery disease with recent stent placement [facility] on 01/24/2022 3. Diabetes mellitus type 2 with sliding scale insulin ordered 4. Essential hypertension 5. History of hyperlipidemia 6. Ongoing nicotine dependence. Patient educated greater than 3 minutes on smoking cessation 7. Restless leg syndrome Hospital course: This is a 71-year-old female patient who presented with concerns of pseudoaneurysm following cardiac stent placement 10 days ago at [facility]. Patient reports on 01/24/2022 she underwent cardiac catheterization with 3 stents placed at [facility]. Patient states that she was discharged home and noticed yesterday increased lump and bruising to left groin site. Patient has past medical history of coronary artery disease, hypertension, hyperlipidemia, diabetes nicotine dependence. CT of abdomen and pelvis completed showing biliary tree dilation. Hemoglobin stable at 12.5. At this time cardiology services have been consulted. Per cardiology patient resumed on Plavix and aspirin due to recent stent placement. Interventional radiology also consulted. At this time patient denies chest pain or shortness breath. Patient denies nausea vomiting or diarrhea. Patient denies any urinary burning or frequency On 02/04/2022 patient was seen and examined on the medical floor she is alert and oriented 3 in no apparent distress she is complaining of having a bruise on her left thigh otherwise she denies any complaints there is no fever or chills no headache or dizziness no chest pain no shortness of breath no cough no nausea or vomiting no abdominal pain no diarrhea no blood in the stools no burning with urination no frequency or urgency no hematuria. Aspirin and Plavix were resumed. Patient was evaluated by cardiology and was cleared for discharge. Patient will be discharged to home today she will be followed in our office in the next 2-3 days Patient Condition at Discharge: Fair Plan - Discharge Summary New Discharge Prescriptions: New Nicotine 14Mg/24Hr Patch [Habitrol] 1 patch TRANSDERM DAILY patch Continue Pantoprazole [Protonix] 40 mg PO DAILY HYDROcodone/APAP 10-325MG [Ferriday 10-325] 1 tab PO HS traZODone HCL 50 mg PO HS Metoprolol Succinate (ER) [Toprol XL] 25 mg PO DAILY Atorvastatin [Lipitor] 40 mg PO HS #30 tab Fenofibrate [Lofibra] 160 mg PO DAILY #30 tab Melatonin 3 mg PO HS tablet rOPINIRole HCL [Requip] 0.25 mg PO TID #21 tablet Aspirin EC [Ecotrin Low Dose] 81 mg PO DAILY Loperamide [Imodium] 2 mg PO TID PRN PRN Reason: Diarrhea ALPRAZolam [Xanax] 0.25 mg PO BID PRN PRN Reason: Anxiety HYDROcodone/APAP 10-325MG [F[place]iday 10-325] 1 tab PO DAILY PRN PRN Reason: Pain Isosorbide Mononitrate ER [Imdur] 30 mg PO DAILY #90 tab Docusate [Colace] 100 mg PO DAILY #30 capsule Insulin Aspart [NovoLOG Flexpen] See Protocol SQ AC-TID Clopidogrel [Plavix] 75 mg PO DAILY Discharge Medication List Pantoprazole [Protonix] 40 mg PO DAILY 01/14/17 [History] HYDROcodone/APAP 10-325MG [Ferriday 10-325] 1 tab PO HS 08/19/18 [History] traZODone HCL 50 mg PO HS 09/07/18 [History] Metoprolol Succinate (ER) [Toprol XL] 25 mg PO DAILY 01/13/19 [History] Atorvastatin [Lipitor] 40 mg PO HS #30 tab 01/15/19 [Rx] Fenofibrate [Lofibra] 160 mg PO DAILY #30 tab 01/15/19 [Rx] Melatonin 3 mg PO HS tablet 01/15/19 [Rx] rOPINIRole HCL [Requip] 0.25 mg PO TID #21 tablet 07/27/19 [Rx] Aspirin EC [Ecotrin Low Dose] 81 mg PO DAILY 01/03/21 [History] Isosorbide Mononitrate ER [Imdur] 30 mg PO DAILY #90 tab 09/15/21 [Rx] Docusate [Colace] 100 mg PO DAILY #30 capsule 01/01/22 [Rx] Insulin Aspart [NovoLOG Flexpen] See Protocol SQ AC-TID 01/05/22 [History] ALPRAZolam [Xanax] 0.25 mg PO BID PRN 02/02/22 [History] Clopidogrel [Plavix] 75 mg PO DAILY 02/02/22 [History] HYDROcodone/APAP 10-325MG [Ferriday 10-325] 1 tab PO DAILY PRN 02/02/22 [History] Loperamide [Imodium] 2 mg PO TID PRN 02/02/22 [History] Nicotine 14Mg/24Hr Patch [Habitrol] 1 patch TRANSDERM DAILY patch 02/04/22 [Rx] Follow up Appointment(s)/Referral(s): Hanh Veliz MD [STAFF PHYSICIAN] - 1 Week Fernando Chairez MD [Primary Care Provider] - 1-2 days
[2022-02-04 11:57] VITALS: BMI 19.2
[2022-02-04 12:46] LABS: Glucose,Whole Blood 328 mg/dL (70-110)
== END 2022-02-04 13:52 ==
LOC: EC 16:25 → 6NMEDSUR 20:41
PROVIDERS: ADMIT Internal Medicine; ATTEND Internal Medicine
DX: T81.719A Complication of unspecified artery following a procedure, not elsewhere classified, initial encounter (principal); I25.10 Atherosclerotic heart disease of native coronary artery without angina pectoris; E11.9 Type 2 diabetes mellitus without complications; K21.9 Gastro-esophageal reflux disease without esophagitis; I25.2 Old myocardial infarction; M79.7 Fibromyalgia; G25.81 Restless legs syndrome; D69.3 Immune thrombocytopenic purpura; E27.8 Other specified disorders of adrenal gland; K58.9 Irritable bowel syndrome, unspecified; F41.9 Anxiety disorder, unspecified; N28.1 Cyst of kidney, acquired; F17.210 Nicotine dependence, cigarettes, uncomplicated; I10 Essential (primary) hypertension; E78.5 Hyperlipidemia, unspecified; Z79.899 Other long term (current) drug therapy; Z79.82 Long term (current) use of aspirin; Z79.02 Long term (current) use of antithrombotics/antiplatelets; Z90.49 Acquired absence of other specified parts of digestive tract; Z90.710 Acquired absence of both cervix and uterus; Z83.3 Family history of diabetes mellitus; Z80.9 Family history of malignant neoplasm, unspecified; Z82.49 Family history of ischemic heart disease and other diseases of the circulatory system; Z95.5 Presence of coronary angioplasty implant and graft; Z85.118 Personal history of other malignant neoplasm of bronchus and lung; Z90.2 Acquired absence of lung [part of]; Y84.0 Cardiac catheterization as the cause of abnormal reaction of the patient, or of later complication, without mention of misadventure at the time of the procedure
CPT/HCPCS: 96374; 99285; 36415; 80053 ×2; 85025 ×2; 83036; 93975 ×2; 93926; 36002; 74177; G0378 ×3; J2270; Q9967

== ENCOUNTER → 2022-02-02 | Outpatient (CLI) | payer MEDICARE, OTHER ==
--- NOTE | 2022-02-02 16:34 | US ---
"EXAMINATION TYPE: US lower ext pseudo artery LT DATE OF EXAM: 02/02/2022 COMPARISON: NONE CLINICAL HISTORY: Z72.9 PROBLEM RELATED TO LIFESTYLE,I97.640. EXAM PERFORMED: Grayscale and color Doppler duplex imaging performed of the groin, post cardiac arleen ter to assess for pseudoaneurysm. SIDE PERFORMED: left Color and Waveform Doppler performed to assess for the presence of pseudoaneurysm; Is there ultrasound evidence of a pseudoaneurysm: YES Is there evidence of AV shunting: NO Is there a fluid collection present: No Positive for left pseudoaneurysm. There is 1.9 cm left groin pseudoaneurysm confirmed. IMPRESSION: As above. A Yellow level critical message alert has been initiated for Hanh Veliz MD via the Boxed 36 0 | Critical Results System on 02/02/2022 4:31 PM. This message alert has been sent to Hanh Veliz MD via the preferences provided by the clinician for the receipt of Radiology Critical Findings. [facility] [place] [id number]."
--- NOTE | 2022-02-03 08:54 | US ---
EXAMINATION TYPE: US lower ext pseudo artery RT DATE OF EXAM: 02/02/2022 COMPARISON: NONE CLINICAL HISTORY: Z72.9 PROBLEM RELATED TO LIFESTYLE,I97.640. EXAM PERFORMED: Grayscale and color Doppler duplex imaging performed of the groin, post cardiac arleen ter to assess for pseudoaneurysm. SIDE PERFORMED: right Color and Waveform Doppler performed to assess for the presence of pseudoaneurysm; Is there ultrasound evidence of a pseudoaneurysm: no Is there evidence of AV shunting: no Is there a fluid collection present: no IMPRESSION: No evidence for pseudoaneurysm or AV fistula.
== END | disposition home or self-care (01) ==
LOC: RADUSWWP 15:22
PROVIDERS: ATTEND Internal Medicine Interventional Cardiology
DX: I97 Intraoperative and postprocedural complications and disorders of circulatory system, not elsewhere classified (principal); Z72.9 Problem related to lifestyle, unspecified
CPT/HCPCS: 93975

== ENCOUNTER → 2022-02-13 | Outpatient (CLI) | payer MEDICARE, OTHER ==
--- NOTE | 2022-02-14 19:49 | MM ---
Reason for Exam: Screening (asymptomatic). Last mammogram was performed 2 year(s) and 1 month(s) ago. Patient History: Menarche at age 10. First Full-Term at age 23. Left ovary removed at age 43. Right ovary removed at age 43. Hysterectomy at age 25. Postmenopausal. Estrogen for 12 years from age 43 until age 55. 10/31/2006, Benign Core Biopsy on the right side. 06/24/2003, Benign Ultrasound-Guided Core Biopsy on the left side. 04/11/2002, Benign Ultrasound-Guided Core Biopsy on the right side. Maternal cousin had breast cancer, age 40. Mother had breast cancer, age 60. Risk Values: Monica 5 year model risk: 5.2%. NCI Lifetime model risk: 12.3%. Prior Study Comparison: 10/10/2006 Bilateral Screening Mammogram, [facility]. 10/22/2006 Left Diagnostic Mammogram, [facility]. 10/22/2006 Right Diagnostic Ultrasound, [facility]. 08/16/2009 Bilateral Screening Mammogram, [facility]. 08/26/2009 Right Diagnostic Ultrasound, [facility]. 01/25/2015 Bilateral Diagnostic Mammogram, [facility]. 01/31/2016 Bilateral Screening Mammogram, [facility]. 07/05/2017 Bilateral Diagnostic Mammogram, [facility]. 04/29/2018 Right Diagnostic Mammogram, [facility]. 01/15/2020 Bilateral Screening Mammogram, [facility]. Tissue Density: The breast tissue is heterogeneously dense. This may lower the sensitivity of mammography. Findings: Analyzed By CAD. Unchanged mass upper outer quadrant right breast with microclip related to prior biopsy. Benign punctate and round regional calcifications left breast. Areas of asymmetric density are similar to prior study do not persist on 3-D images. No significant change from prior exams. Overall Assessment: Benign, BI-RAD 2 Management: Screening Mammogram of both breasts in 1 year. 1. Patient should continue monthly self breast exams. Note that per NCCN guidelines, a five-year risk assessment greater than 1.67% above the standard risk is used to assess eligibility for a risk reducing agent. 2. A clinical breast exam by your physician is recommended on an annual basis. 3. This exam should not preclude additional follow-up of suspicious palpable abnormalities. Electronically signed and approved by: Angie Dueñas M.D. Radiologist
== END | disposition home or self-care (01) ==
LOC: RADMAMWWP 12:22
PROVIDERS: ATTEND Internal Medicine
DX: Z12.31 Encounter for screening mammogram for malignant neoplasm of breast (principal); Z78.0 Asymptomatic menopausal state; Z80.3 Family history of malignant neoplasm of breast; Z90.721 Acquired absence of ovaries, unilateral
CPT/HCPCS: 77063; 77067

== ENCOUNTER → 2022-02-21 | Outpatient (CLI) | payer MEDICARE, OTHER ==
--- NOTE | 2022-02-21 14:29 | US ---
EXAMINATION TYPE: US lower ext pseudo artery LT DATE OF EXAM: 02/21/2022 COMPARISON: NONE CLINICAL HISTORY: I72.9 LT GROIN PSEUDOANEURYSM. Thrombin injection 02/03/2022, doctors still feel pu lsatile mass in left groin EXAM PERFORMED: Grayscale and color Doppler duplex imaging performed of the groin, post cardiac arleen ter to assess for pseudoaneurysm. SIDE PERFORMED: LEFT Color and Waveform Doppler performed to assess for the presence of pseudoaneurysm; Is there ultrasound evidence of a pseudoaneurysm: YES Is there evidence of AV shunting: NO Is there a fluid collection present: NO called office with findings IMPRESSION: 1. 2.4 x 1.3 cm pseudoaneurysm left inguinal region
== END | disposition home or self-care (01) ==
LOC: RADUSWWP 13:25
PROVIDERS: ATTEND Internal Medicine Interventional Cardiology
DX: I25.10 Atherosclerotic heart disease of native coronary artery without angina pectoris (principal); I72.4 Aneurysm of artery of lower extremity
CPT/HCPCS: 93975

== ENCOUNTER → 2022-02-28 | Outpatient (CLI) | payer MEDICARE, OTHER ==
--- NOTE | 2022-02-28 16:03 | US ---
EXAMINATION TYPE: US lower ext pseudo artery LT DATE OF EXAM: 02/28/2022 COMPARISON: Ultrasound lower extremity artery left 02/21/2022. CLINICAL HISTORY: LEFT GROIN ANEURYSM, I25.10 ASHD. EXAM PERFORMED: Grayscale and color Doppler duplex imaging performed of the groin, post cardiac arleen ter to assess for pseudoaneurysm. SIDE PERFORMED: Left Color and Waveform Doppler performed to assess for the presence of pseudoaneurysm; Is there ultrasound evidence of a pseudoaneurysm: Yes Is there evidence of AV shunting: no Is there a fluid collection present: no Redemonstration of pseudoaneurysm within the left groin measuring grossly 1.8 cm, previously 2.4 cm. This has no flow in it and demonstrates echogenic material consistent with thrombosis. IMPRESSION: Thrombosed left groin pseudoaneurysm without evidence of color flow.
== END | disposition home or self-care (01) ==
LOC: RADUSWWP 15:08
PROVIDERS: ATTEND Internal Medicine Interventional Cardiology
DX: I25.10 Atherosclerotic heart disease of native coronary artery without angina pectoris (principal); I72.4 Aneurysm of artery of lower extremity
CPT/HCPCS: 93975

== ENCOUNTER → 2022-06-07 | Outpatient (CLI) | payer MEDICARE, OTHER ==
[2022-06-07 12:17] LABS: African American GFR (CKD) >90 (>60 ml/min/1.73 sqM); Blood Urea Nitrogen 15 mg/dL (7-17); Non-African American GFR(CKD) >90 (>60 ml/min/1.73 sqM)
--- NOTE | 2022-06-07 14:33 | CT ---
EXAMINATION TYPE: CT ChestAbdPelvis w con DATE OF EXAM: 06/07/2022 COMPARISON: CT CAP 12-06-2021 and older studies. HISTORY: lung CA, f/u. Originally diagnosed 2017. CT DLP: 483.7 mGycm. Automated Exposure Control for Dose Reduction was Utilized. CONTRAST: CT scan of the thorax, abdomen and pelvis is performed with oral and with IV Contrast, patient inject ed with 70 mL of Isovue 300. FINDINGS: LUNGS: Moderate underlying emphysematous changes are redemonstrated. Persistent posttreatment change to the left lung with partial pneumonectomy and left-sided volume loss. Superior retraction of the le ft hilum is redemonstrated. Mild left greater than right biapical pleural/parenchymal scarring is red emonstrated. No pleural effusion or pneumothorax seen bilaterally. Scattered small to tiny nodules in the left lower lung are redemonstrated for reference reference several nodules noted axial images 34 through 41, they have similar appearance and size to most recent CT. All are subcentimeter in size. MEDIASTINUM: There are no new greater than 1 cm hilar or mediastinal lymph nodes. No cardiomegaly o r pericardial effusion is seen. Persistent left-sided arch with aberrant right brachiocephalic arter y running posterior to the esophagus, normal variant. Coronary artery calcification is redemonstrated . Stable heterogeneity and slight prominence to the thyroid with 1.9 cm lower pole right thyroid nodu le coronal image 20 redemonstrated. Redemonstration of focal mediastinal free fluid anterior to aorta and main pulmonary artery axial image 26 presumed physiologic. OTHER: Stable 1.6 cm right breast mass from several prior studies axial image 35 on current exam. LIVER/GB: Postcholecystectomy changes. Mild extrahepatic biliary dilatation slightly more prominent u p to 13 mm on current study coronal image 40. PANCREAS: No significant abnormality is seen. SPLEEN: No significant abnormality is seen. ADRENALS: Stable 2 adjacent left adrenal masses with 2.0 cm superior heterogeneous mass axial image 5 8 and 1 similar near 2.0 cm cm mass just inferior to this axial image 61 current study. No significan t change from 2015 MRI abdomen study. KIDNEYS: Stable 3.7 cm thin-walled cyst laterally in the kidney upper midpole level axial image 59 cu rrent study. Small focus of left-sided calcification redemonstrated in the thin-walled cyst. Subcenti meter adjacent cyst posteriorly axial image 60 is redemonstrated. BOWEL: Sutures in the bowel loop axial image 77 right abdomen redemonstrated. Oral contrast does not reach colonic level. Suboptimal evaluation of distal bowel. Mild to moderate right-sided colonic feca l prominence including low-lying cecum there is redemonstrated. No suspicious small or large bowel di latation. Additional sutures sigmoid colon in the left pelvis axial image 100 are redemonstrated. GENITAL ORGANS: Uterus surgically absent. LYMPH NODES: No greater than 1cm abdominal or pelvic lymph nodes are appreciated. OSSEOUS STRUCTURES: Moderate to severe disc space narrowing and endplate sclerosis L4-L5 and L5-S1 le vels. Multilevel facet arthropathy in the mid to lower lumbar spine. OTHER: Moderate to severe mixed plaque of the aorta extends into branch vessels. IMPRESSION: Overall stable findings from most recent CT and PET/CT, no new or enlarging suspicious ma sses or adenopathy to suggest active neoplastic recurrence. Posttreatment changes to the left lung ar e redemonstrated. Stable subcentimeter nodularity in the left lower lung.
== END | disposition home or self-care (01) ==
LOC: RADCTMAIN 11:42
PROVIDERS: ATTEND Internal Medicine Hematology & Oncology
DX: C34.92 Malignant neoplasm of unspecified part of left bronchus or lung (principal); R91.1 Solitary pulmonary nodule
CPT/HCPCS: 82565; 84520; 71260; 74177; 36415; Q9967

== ENCOUNTER 2022-07-19 11:55 | Inpatient (IN) | payer MEDICARE, OTHER ==
[2022-07-19] MEDS ORDERED: ALBUTEROL HFA INHALER INHALATION STA (12:38)
[2022-07-19] MEDS ORDERED: SODIUM CHLORIDE 0.9% 1,000 ML IV STA ×2 (12:38→14:34)
[2022-07-19] MEDS ORDERED: methylPREDNISolone SOD SUCCI 125 MG/2 ML VIAL IV STA (12:38)
[2022-07-19] MEDS ORDERED: IPRATROPIUM-ALBUTEROL 3 ML NEB INHALATION STA ×2 (12:38→14:32)
--- NOTE | 2022-07-19 12:49 | ED ---
General Adult HPI - General Chief complaint: Shortness of Breath Stated complaint: Shortness of Breath sent by Time Seen by Provider: 07/19/22 12:29 Source: patient, RN notes reviewed, old records reviewed Mode of arrival: wheelchair Limitations: no limitations - History of Present Illness Initial comments: Patient is a 71-year-old female who presents emergency Department complaining of shortness of breath. Patient has a history of lung cancer, CAD, fibromyalgia, GERD, left lung partial pneumonectomy who presents emergency Department complaining of worsening shortness of breath, coughing over the last week. States she is not currently on chemo or radiation. States that last week she has been having increasing coughing as well as shortness of breath. He has less of an appetite. Denies nausea, vomiting, diarrhea, abdominal pain. Endorses pain which she believes is secondary to coughing located across her chest, but no pain at rest or when moving. Only when coughing. States she has not been coughing anything up and feels that it is stuck. Has required proximal past 2 clear mucus. Has been attempting treated at home with her updrafts and inhalers with minimal improvement. No known sick contacts. Denies fevers. Endorses feeling weak and dehydrated generally. Endorses joint pain as well. Presents for further evaluation at this time. - Related Data Home Medications Medication Instructions Recorded Confirmed Pantoprazole [Protonix] 40 mg PO DAILY 01/14/17 07/19/22 traZODone HCL 50 mg PO HS 09/07/18 07/19/22 Metoprolol Succinate (ER) [Toprol 25 mg PO DAILY 01/13/19 07/19/22 XL] Aspirin EC [Ecotrin Low Dose] 81 mg PO DAILY 01/03/21 07/19/22 Insulin Aspart [NovoLOG Flexpen] See Protocol SQ ACHS PRN 01/05/22 07/19/22 ALPRAZolam [Xanax] 0.25 mg PO BID PRN 02/02/22 07/19/22 Clopidogrel [Plavix] 75 mg PO DAILY 02/02/22 07/19/22 HYDROcodone/APAP 10-325MG [[place] 1 tab PO BID PRN 02/02/22 07/19/22 10-325] Loperamide [Imodium] 2 mg PO BID PRN 02/02/22 07/19/22 Docusate [Colace] 100 mg PO DAILY PRN 07/19/22 07/19/22 Insulin Detemir [Levemir Flexpen] 25 units SQ DAILY PRN 07/19/22 07/19/22 Ipratropium/Albuter 20-100Mcg 2 puff INHALATION RT-BID 07/19/22 07/19/22 [Combivent Respimat 20-100Mcg Inhaler] Melatonin 3 mg PO HS PRN 07/19/22 07/19/22 Nitroglycerin Sl Tabs [Nitrostat] 0.4 mg SUBLINGUAL Q5M PRN 07/19/22 07/19/22 lisinopriL [Zestril] 5 mg PO DAILY 07/19/22 07/19/22 rOPINIRole HCL [Requip] 0.25 mg PO HS 07/19/22 07/19/22 Previous Rx's Medication Instructions Recorded Atorvastatin [Lipitor] 40 mg PO HS #30 tab 01/15/19 Isosorbide Mononitrate ER [Imdur] 30 mg PO DAILY #90 tab 09/15/21 Allergies Allergy/AdvReac Type Severity Reaction Status Date / Time No Known Allergies Allergy Verified 07/19/22 14:29 Review of Systems ROS Statement: Those systems with pertinent positive or pertinent negative responses have been documented in the HPI. Review of Systems: CONST: Denies fever EYES: Denies blurry vision ENT: Denies nasal congestion C/V: Denies Chest pain RESP: Endorses Shortness of breath GI: Denies abdominal pain : Denies dysuria SKIN: Denies rash. MSK: Denies joint pain. NEURO: Denies headache ROS Other: All systems not noted in ROS Statement are negative. Past Medical History Past Medical History: Coronary Artery Disease (CAD), Cancer, Diabetes Mellitus, Fibromyalgia, GERD/Reflux, Myocardial Infarction (ME) Additional Past Medical History / Comment(s): Idiopathic thrombocytopenia p urpura, IBS, diverticulitis, hiatal hernia, 2 herniated discs-L3/L4, Restless Leg Syndrome, gastritis, superficial gastric ulcers. nodule on lt lung-Cancer Stg 1 Last Myocardial Infarction Date:: 01/2017 History of Any Multi-Drug Resistant Organisms: None Reported Past Surgical History: Adenoidectomy, Bladder Surgery, Bowel Resection, Cholecystectomy, Heart Catheterization With Stent, Hernia Repair, Hysterectomy, Tonsillectomy Additional Past Surgical History / Comment(s): BLADDER SUSPENSION x 2, breast biopsy x3, bowel resection due to rupture. left upper lobe of lung removed per CA, Past Anesthesia/Blood Transfusion Reactions: No Reported Reaction Additional Past Anesthesia/Blood Transfusion Reaction / Comment(s): Pt received blood in 2005 due to ITP without reaction. Date of Last Stent Placement:: 01/2017 Past Psychological History: Anxiety Smoking Status: Former smoker Past Alcohol Use History: None Reported Past Drug Use History: None Reported - Past Family History Mother Family Medical History: Cancer, Diabetes Mellitus Additional Family Medical History / Comment(s): Father had a defibrillator. He of heart dx in his 80's Father Family Medical History: Diabetes Mellitus Additional Family Medical History / Comment(s): HEART DISEASE General Exam - General Exam Comments Initial Comments: General: Appears in no acute distress. HEAD: Normal with no signs of head trauma. EYES: PERRLA, EOMI, conjunctiva normal, no discharge. ENT: Hearing grossly intact, normal oropharynx. RESPIRATORY: Wheezing bilaterally. No obvious rhonchi. Mild increased work of breathing. Mild hypoxia on room air to 94%. C/V: Borderline tachycardia. S1 and S2 auscultated. Peripheral pulses 2+ and intact throughout. No peripheral edema. ABD: Abd is soft, nontender, nondistended EXT: Normal range of motion, no obvious deformity SKIN: No rashes or lesions observed on exposed skin. NEURO: Alert and oriented 4. Limitations: no limitations Course Vital Signs 07/19/22 07/19/22 07/19/22 12:07 13:00 13:09 Temperature 97.4 F L Pulse Rate 104 H 96 Respiratory 28 H 16 19 Rate Blood Pressure 102/51 99/55 O2 Sat by Pulse 94 L 93 L Oximetry 07/19/22 07/19/22 07/19/22 13:38 13:46 17:00 Temperature Pulse Rate 90 87 105 H Respiratory 20 18 20 Rate Blood Pressure 116/63 O2 Sat by Pulse 94 L Oximetry Medical Decision Making - Medical Decision Making Was pt. sent in by a medical professional or institution (, PA, CONTRACT MANAGER, urgent care, hospital, or [facility]...) When possible be specific @ -Sent in by PCP for an evaluation for 1 week of shortness of breath Did you speak to anyone other than the patient for history (EMS, parent, family, police, friend...)? What history was obtained from this source @ -No Did you review nursing and triage notes (agree or disagree)? Why? @ -I reviewed and agree with nursing and triage notes Were old charts reviewed (outside hosp., previous admission, EMS record, old EKG, old radiological studies, urgent care reports/EKG's, [facility] records)? Report findings @ -Old charts and CT imaging reviewed from May 2022. Differential Diagnosis (chest pain, altered mental status, abdominal pain women, abdominal pain men, vaginal bleeding, weakness, fever, dyspnea, syncope, headache, dizziness, GI bleed, back pain, seizure, CVA, palpatations, mental health, musculoskeletal)? @ -Differential Dyspnea: Coronary syndrome, arrhythmia, tamponade, asthma, COPD, pulmonary embolism, pneumonia, pneumothorax, pulmonary effusion, anaphylaxis, diabetic ketoacidosis, flailed chest, pulmonary contusion, diaphragmatic rupture, anemia, neuromuscular, this is not meant to be an all-inclusive list. EKG interpreted by me (3pts min.). @ -As above X-rays interpreted by me (1pt min.). @ -Chest x-ray reveals no obvious acute cardio pulmonary process. Chronic changes. CT interpreted by me (1pt min.). @ -None done U/S interpreted by me (1pt. min.). @ -None done What testing was considered but not performed or refused? (CT, X-rays, U/S, labs)? Why? @ -None What meds were considered but not given or refused? Why? @ -None Did you discuss the management of the patient with other professionals (professionals i.e. , PA, CONTRACT MANAGER, lab, RT, psych nurse, social media project manager, structural iron worker, teacher, senior loan officer, watch case polisher)? Give summary @ -I spoke with Dr. Chairez who accepted the admission. Was smoking cessation discussed for >3mins.? @ -No Was critical care preformed (if so, how long)? @ -No Were there social determinants of health that impacted care today? How? (Homelessness, low income, unemployed, alcoholism, drug addiction, mosher sportation, low edu. Level, literacy, decrease access to med. care, long term, rehab)? @ -No Was there de-escalation of care discussed even if they declined (Discuss DNR or withdrawal of care, Hospice)? DNR status @ -No What co-morbidities impacted this encounter? (DM, HTN, Smoking, COPD, CAD, Cancer, CVA, ARF, Chemo, Hep., AIDS, mental health diagnosis, sleep apnea, morbid obesity)? @ -Lung cancer, left pneumonectomy partial, COPD, asthma Was patient admitted / discharged? Hospital course, mention meds given and route, prescriptions, significant lab abnormalities, going to OR and other pertinent info. @ -Based on the patient's presentation and physical exam, I'm concerned for possible infectious etiology for her symptoms with no real cardiopulmonary etiology at this time particularly with her history of cancer as well as lung resection. Patient be treated with updrafts, as well as IV steroids. She was receive a 1 L fluid bolus. We will obtain a screening d-dimer, as well as cardiopulmonary labs as well as a 4-Plex. EKG and chest x-ray will also be ob tained. She was in agreement with this plan. Vital signs are within acceptable limits, borderline hypertension. Very slight hypoxia to 94%. Chest x-ray shows no signs of acute ischemia, EKG shows no acute findings. Labs are remarkable for an undetectable troponin. Negative viral signs. Lactic acid is slightly elevated to 2.5 likely secondary to dehydration. Also hyperglycemic in the setting of diabetes. D-dimer is negative. Remainder of labs are within acceptable limits. On reevaluation, patient remains wheezy. I would like to admit the patient considering her history, as well as dehydration and COPD. She was in agreement with this plan. We'll continue IV steroids and breathing treatments. I will empirically place her on antibiotics for bronchitis as well considering her hist ory. Will be started on Rocephin as well as azithromycin. She was in agreement this plan. Pulmonology consulted. I spoke with the admitting physician, Dr. Chairez who accepted the patient. Undiagnosed new problem with uncertain prognosis? @ -No Drug Therapy requiring intensive monitoring for toxicity (Heparin, Nitro, Insulin, Cardizem)? @ -No Were any procedures done? @ -No Diagnosis/symptom? @ -COPD Acute, or Chronic, or Acute on Chronic? @ -Acute on chronic Uncomplicated (without systemic symptoms) or Complicated (systemic symptoms)? @ -Complicated Side effects of treatment? @ -none Exacerbation, Progression, or Severe Exacerbation] @ -no Poses a threat to life or bodily function? @ -no Diagnosis/symptom? @ -Bronchitis Acute, or Chronic, or Acute on Chronic? @ -acute Uncomplicated (without systemic symptoms) or Complicated (systemic symptoms)? @ -Uncomplicated Side effects of treatment? @ -none Exacerbation, Progression, or Severe Exacerbation] @ -no Poses a threat to life or bodily function? @ -no - Lab Data Result diagrams: 07/19/22 12:35 07/19/22 12:35 Lab Results 07/19/22 07/19/22 07/19/22 Range/Units 12:35 12:35 12:35 WBC 9.8 (3.8-10.6) k/uL RBC 5.06 (3.80-5.40) m/uL Hgb 14.0 (11.4-16.0) gm/dL Hct 43.5 (34.0-46.0) % MCV 86.0 (80.0-100.0) fL MCH 27.7 (25.0-35.0) pg MCHC 32.3 (31.0-37.0) g/dL RDW 14.8 (11.5-15.5) % Plt Count 237 (150-450) k/uL MPV 8.6 Neutrophils % 73 % Lymphocytes % 19 % Monocytes % 6 % Eosinophils % 1 % Basophils % 0 % Neutrophils # 7.1 (1.3-7.7) k/uL Lymphocytes # 1.8 (1.0-4.8) k/uL Monocytes # 0.6 (0-1.0) k/uL Eosinophils # 0.1 (0-0.7) k/uL Basophils # 0.0 (0-0.2) k/uL PT 9.5 (9.0-12.0) sec INR 0.9 (<1.2) APTT 22.4 (22.0-30.0) sec D-Dimer 0.58 (<0.60) mg/L FEU Sodium 134 L (137-145) mmol/L Potassium 4.8 (3.5-5.1) mmol/L Chloride 102 (98-107) mmol/L Carbon Dioxide 20 L (22-30) mmol/L Anion Gap 12 mmol/L BUN 14 (7-17) mg/dL Creatinine 0.51 L (0.52-1.04) mg/dL Est GFR (CKD-EPI)AfAm >90 (>60 ml/min/1.73 sqM) Est GFR (CKD-EPI)NonAf >90 (>60 ml/min/1.73 sqM) Glucose 328 H (74-99) mg/dL Lactic Ac Sepsis Rflx Plasma Lactic Acid Jeremy (0.7-2.0) mmol/L Calcium 9.1 (8.4-10.2) mg/dL Total Bilirubin 0.8 (0.2-1.3) mg/dL AST 24 (14-36) U/L ALT 20 (4-34) U/L Alkaline Phosphatase 112 (38-126) U/L Troponin I (0.000-0.034) ng/mL Total Protein 6.5 (6.3-8.2) g/dL Albumin 3.8 (3.5-5.0) g/dL Influenza Type A (PCR) (Not Detectd) Influenza Type B (PCR) (Not Detectd) RSV (PCR) (Not Detectd) SARS-CoV-2 (PCR) (Not Detectd) 07/19/22 07/19/22 07/19/22 Range/Units 12:35 12:35 12:35 WBC (3.8-10.6) k/uL RBC (3.80-5.40) m/uL Hgb (11.4-16.0) gm/dL Hct (34.0-46.0) % MCV (80.0-100.0) fL MCH (25.0-35.0) pg MCHC (31.0-37.0) g/dL RDW (11.5-15.5) % Plt Count (150-450) k/uL MPV Neutrophils % % Lymphocytes % % Monocytes % % Eosinophils % % Basophils % % Neutrophils # (1.3-7.7) k/uL Lymphocytes # (1.0-4.8) k/uL Monocytes # (0-1.0) k/uL Eosinophils # (0-0.7) k/uL Basophils # (0-0.2) k/uL PT (9.0-12.0) sec INR (<1.2) APTT (22.0-30.0) sec D-Dimer (<0.60) mg/L FEU Sodium (137-145) mmol/L Potassium (3.5-5.1) mmol/L Chloride (98-107) mmol/L Carbon Dioxide (22-30) mmol/L Anion Gap mmol/L BUN (7-17) mg/dL Creatinine (0.52-1.04) mg/dL Est GFR (CKD-EPI)AfAm (>60 ml/min/1.73 sqM) Est GFR (CKD-EPI)NonAf (>60 ml/min/1.73 sqM) Glucose (74-99) mg/dL Lactic Ac Sepsis Rflx Plasma Lactic Acid Jeremy 2.5 H* (0.7-2.0) mmol/L Calcium (8.4-10.2) mg/dL Total Bilirubin (0.2-1.3) mg/dL AST (14-36) U/L ALT (4-34) U/L Alkaline Phosphatase (38-126) U/L Troponin I <0.012 (0.000-0.034) ng/mL Total Protein (6.3-8.2) g/dL Albumin (3.5-5.0) g/dL Influenza Type A (PCR) Not Detected (Not Detectd) Influenza Type B (PCR) Not Detected (Not Detectd) RSV (PCR) Not Detected (Not Detectd) SARS-CoV-2 (PCR) Not Detected (Not Detectd) 07/19/22 Range/Units 13:10 WBC (3.8-10.6) k/uL RBC (3.80-5.40) m/uL Hgb (11.4-16.0) gm/dL Hct (34.0-46.0) % MCV (80.0-100.0) fL MCH (25.0-35.0) pg MCHC (31.0-37.0) g/dL RDW (11.5-15.5) % Plt Count (150-450) k/uL MPV Neutrophils % % Lymphocytes % % Monocytes % % Eosinophils % % Basophils % % Neutrophils # (1.3-7.7) k/uL Lymphocytes # (1.0-4.8) k/uL Monocytes # (0-1.0) k/uL Eosinophils # (0-0.7) k/uL Basophils # (0-0.2) k/uL PT (9.0-12.0) sec INR (<1.2) APTT (22.0-30.0) sec D-Dimer (<0.60) mg/L FEU Sodium (137-145) mmol/L Potassium (3.5-5.1) mmol/L Chloride (98-107) mmol/L Carbon Dioxide (22-30) mmol/L Anion Gap mmol/L BUN (7-17) mg/dL Creatinine (0.52-1.04) mg/dL Est GFR (CKD-EPI)AfAm (>60 ml/min/1.73 sqM) Est GFR (CKD-EPI)NonAf (>60 ml/min/1.73 sqM) Glucose (74-99) mg/dL Lactic Ac Sepsis Rflx Y Plasma Lactic Acid Jeremy (0.7-2.0) mmol/L Calcium (8.4-10.2) mg/dL Total Bilirubin (0.2-1.3) mg/dL AST (14-36) U/L ALT (4-34) U/L Alkaline Phosphatase (38-126) U/L Troponin I (0.000-0.034) ng/mL Total Protein (6.3-8.2) g/dL Albumin (3.5-5.0) g/dL Influenza Type A (PCR) (Not Detectd) Influenza Type B (PCR) (Not Detectd) RSV (PCR) (Not Detectd) SARS-CoV-2 (PCR) (Not Detectd) - EKG Data -: EKG Interpreted by Me EKG Comments: 12-lead Electrocardiogram Interpretation Note EKG was reviewed and interpreted by myself. 12-lead ECG performed at 1317 is interpreted by me as revealing normal sinus rhythm at a rate of 94 beats per minute. Borderline axis. [place] interval is 137 ms, QRS duration is 101 ms, QTc is 428 ms.. There were no ST or T wave abnormalities to suggest myocardial ischemia or injury. R wave progression across the precordium was satisfactory. By my interpretation this EKG is non-diagnostic for acute ischemia. When compared with EKG from May 2021, no significant change. Disposition Clinical Impression: COPD (chronic obstructive pulmonary disease), Acute bronchitis, Hx of pneumonectomy Disposition: ADMITTED IP TO THIS HOSP Condition: Stable Time of Disposition: 14:30
[2022-07-19 12:57] LABS: Basophils % (A) 0 %; Eosinophils # (A) 0.1 k/uL (0-0.7); Eosinophils % (A) 1 %; HCT 43.5 % (34.0-46.0); Lymphocytes # (A) 1.8 k/uL (1.0-4.8); Lymphocytes % (A) 19 %; MCH 27.7 pg (25.0-35.0); MCHC 32.3 g/dL (31.0-37.0); Mean Platelet Volume 8.6; Monocytes # (A) 0.6 k/uL (0-1.0); Monocytes % (A) 6 %; Neutrophils # (A) 7.1 k/uL (1.3-7.7); Neutrophils % (A) 73 %; Platelet Count 237 k/uL (150-450); RBC 5.06 m/uL (3.80-5.40); RDW 14.8 % (11.5-15.5); WBC 9.8 k/uL (3.8-10.6)
[2022-07-19 13:06] LABS: ALT 20 U/L (4-34); AST 24 U/L (14-36); African American GFR (CKD) >90 (>60 ml/min/1.73 sqM); Albumin 3.8 g/dL (3.5-5.0); Alkaline Phosphatase 112 U/L (38-126); Anion Gap 12 mmol/L; Blood Urea Nitrogen 14 mg/dL (7-17); Calcium 9.1 mg/dL (8.4-10.2); Carbon Dioxide 20 mmol/L (22-30); Chloride 102 mmol/L (98-107); Glucose 328 mg/dL (74-99); Non-African American GFR(CKD) >90 (>60 ml/min/1.73 sqM); Potassium 4.8 mmol/L (3.5-5.1); Sodium 134 mmol/L (137-145); Total Bilirubin 0.8 mg/dL (0.2-1.3); Total Protein 6.5 g/dL (6.3-8.2)
--- NOTE | 2022-07-19 13:20 | XR ---
EXAMINATION TYPE: XR chest 2V DATE OF EXAM: 07/19/2022 COMPARISON: NONE TECHNIQUE: PA and lateral views submitted. HISTORY: Chest Pain FINDINGS: The lungs are clear and there is no pneumothorax, pleural effusion, or focal pneumonia. Heart size normal and no overt failure. Osseous structures demonstrate hypertrophic and degenerative changes of the spine. There is atherosclerotic change of the aorta. There is a nodular density in the left perih ilar region. Elevated left hemidiaphragm. Hyperinflation compatible COPD. Coronary artery stenting. IMPRESSION: 1. No acute process. COPD with left hemidiaphragm elevation chronic appearing density in the left per ihilar region most likely postsurgical.
[2022-07-19 13:54] LABS: INR 0.9 (<1.2); Partial Thromboplastin Time 22.4 sec (22.0-30.0); Prothrombin Time 9.5 sec (9.0-12.0)
[2022-07-19] MEDS ORDERED: AZITHROMYCIN 500 MG in SODIUM CHLORIDE 0.9% 250 ML IVPB STA (14:32)
[2022-07-19] MEDS ORDERED: ACETAMINOPHEN TAB 325 MG TAB PO PRN (14:45)
[2022-07-19] MEDS ORDERED: NALOXONE 0.4 MG/ML 1 ML VIAL IV PRN (14:45)
[2022-07-19] MEDS ORDERED: DEXTROSE 50% SYRINGE 50 ML IVP PRN ×2 (14:47)
[2022-07-19] MEDS ORDERED: IPRATROPIUM-ALBUTEROL 3 ML NEB INHALATION PRN (14:48)
[2022-07-19] MEDS ORDERED: INSULIN ASPART (NovoLOG) 100 UNIT/ML VIAL SQ SCH (17:30)
[2022-07-19 18:56] LABS: Glucose,Whole Blood 438 mg/dL (70-110)
[2022-07-19] MEDS ORDERED: methylPREDNISolone SOD SUCCI 40 MG/ML 1 ML VIAL IV SCH (21:00)
[2022-07-19 21:24] LABS: Glucose,Whole Blood 350 mg/dL (70-110)
[2022-07-19] MEDS: ATORVASTATIN 40 MG TAB PO SCH (23:07)
[2022-07-19] MEDS: traZODone HCL 50 MG TAB PO SCH (23:07)
[2022-07-20 01:16] LABS: Glucose,Whole Blood 244 mg/dL (70-110)
--- NOTE | 2022-07-20 01:59 | P.CNPUL ---
History of Present Illness Consult date: 07/20/22 Requesting physician: Ethan Tuttle Reason for consult: dyspnea Chief complaint: Shortness of breath History of present illness: I'm seeing this patient in new consultation today 07/20/2022 for acute COPD exacerbation. Patient is a 71-year-old white female with past medical history significant for COPD, squamous cell lung cancer status post left upper lobectomy in 2018, coronary artery disease with previous SD and stenting of LAD, hypertension, hyperlipidemia, insulin-dependent diabetes mellitus, diverticulitis with previous bowel resection, restless leg syndrome, fibromyalgia, and is in ex-smoker with a [id number] history. Patient follows with Dr. Bebo Farrell in the outpatient setting for management of her pulmonary issues. She is routinely on a combination of Combivent and Symbicort. Yesterday afternoon, the patient presented to the emergency room with a chief complaint of shortness of breath and associated nonproductive cough. Patient also reports some nonradiating chest pain only with coughing. Denies fevers. She denies any recent sick contacts. Patient is currently in the emergency room, waiting for a bed on the general medical floor. She is sitting up on the stretcher, on 2 L nasal cannula, in no acute distress. SPO2 at 95%. Chest x- ray on arrival showed no acute cardiopulmonary process. There was a chronic left hemidiaphragm, and some suspected post surgical changes in the left perihilar region most likely from her previous lobectomy. No focal consolidation or evidence of pneumonia. CBC was unremarkable. BMP on arrival showed a sodium 134, potassium 4.8, chloride 102, serum CO2 20, BUN 14, creatinine 0.51, glucose was elevated at 328. Troponins negative 1. ECG on arrival showed normal sinus rhythm without obvious acute ischemic changes. Patient was negative for COVID- 19, RSV, influenza. Her lungs are quite wheezy on auscultation. Patient is currently on a combination of bronchodilators and Solu-Medrol. Patient is being empirically covered on a combination of Rocephin and Zithromax. Afebrile. Vital signs are stable. Review of Systems REVIEW OF SYSTEMS: CONSTITUTIONAL: Denies any recent significant weight loss or weight gain. EYES: Denies change in vision. EARS, NOSE, MOUTH, THROAT: Denies headaches, denies sore throat. CARDIOVASCULAR: Denies radiating chest pain, palpitations or syncopal episodes. RESPIRATORY: See HPI GASTROINTESTINAL: Denies change in appetite, abdominal pain, nausea and vomiting, or diarrhea GENITOURINARY: Denies hematuria, denies infections. MUSKULOSKELETAL: Denies pain, denies swelling. INTEGUMENTARY: Denies rash, denies eczema. NEUROLOGICAL: Denies recent memory loss, no recent seizure activity. PSYCHIATRIC: Denies anxiety, denies depression. HEMATOLOGIC/LYMPHATIC: Denies anemia, denies enlarged lymph node Past Medical History Past Medical History: Coronary Artery Disease (CAD), Cancer, COPD, Diabetes Mellitus, Fibromyalgia, GERD/Reflux, Myocardial Infarction ([place]) Additional Past Medical History / Comment(s): Idiopathic thrombocytopenia purpura, IBS, diverticulitis, hiatal hernia, 2 herniated discs-L3/L4, Restless Leg Syndrome, gastritis, superficial gastric ulcers. Squamous cell lung carcinoma post left upper lobectomy Last Myocardial Infarction Date:: 01/2017 History of Any Multi-Drug Resistant Organisms: None Reported Past Surgical History: Adenoidectomy, Bladder Surgery, Bowel Resection, Cholecystectomy, Heart Catheterization With Stent, Hernia Repair, Hysterectomy, Tonsillectomy Additional Past Surgical History / Comment(s): BLADDER SUSPENSION x 2, breast biopsy x3, bowel resection due to rupture. Robotic-assisted left upper lobectomy in 2018 Past Anesthesia/Blood Transfusion Reactions: No Reported Reaction Additional Past Anesthesia/Blood Transfusion Reaction / Comment(s): Pt received blood in 2006 due to ITP without reaction. Date of Last Stent Placement:: 01/2017 Past Psychological History: Anxiety Smoking Status: Former smoker Past Alcohol Use History: None Reported Past Drug Use History: None Reported - Past Family History Mother Family Medical History: Cancer, Diabetes Mellitus Additional Family Medical History / Comment(s): Father had a defibrillator. He of heart dx in his 80's Father Family Medical History: Diabetes Mellitus Additional Family Medical History / Comment(s): HEART DISEASE Medications and Allergies Home Medications Medication Instructions Recorded Confirmed Type Pantoprazole [Protonix] 40 mg PO DAILY 01/14/17 07/19/22 History traZODone HCL 50 mg PO HS 09/07/18 07/19/22 History Metoprolol Succinate (ER) [Toprol 25 mg PO DAILY 01/13/19 07/19/22 History XL] Atorvastatin [Lipitor] 40 mg PO HS #30 tab 10/23/19 04/26/23 Rx Aspirin EC [Ecotrin Low Dose] 81 mg PO DAILY 01/03/21 07/19/22 History Isosorbide Mononitrate ER [Imdur] 30 mg PO DAILY #90 tab 09/15/21 07/19/22 Rx Insulin Aspart [NovoLOG Flexpen] See Protocol SQ ACHS PRN 01/05/22 07/19/22 History ALPRAZolam [Xanax] 0.25 mg PO BID PRN 02/02/22 07/19/22 History Clopidogrel [Plavix] 75 mg PO DAILY 02/02/22 07/19/22 History HYDROcodone/APAP 10-325MG [[place] 1 tab PO BID PRN 02/02/22 07/19/22 History 10-325] Loperamide [Imodium] 2 mg PO BID PRN 02/02/22 07/19/22 History Docusate [Colace] 100 mg PO DAILY PRN 07/19/22 07/19/22 History Insulin Detemir [Levemir Flexpen] 25 units SQ DAILY PRN 07/19/22 07/19/22 History Ipratropium/Albuter 20-100Mcg 2 puff INHALATION RT-BID 07/19/22 07/19/22 History [Combivent Respimat 20-100Mcg Inhaler] Melatonin 3 mg PO HS PRN 07/19/22 07/19/22 History Nitroglycerin Sl Tabs [Nitrostat] 0.4 mg SUBLINGUAL Q5M PRN 07/19/22 07/19/22 History lisinopriL [Zestril] 5 mg PO DAILY 07/19/22 07/19/22 History rOPINIRole HCL [Requip] 0.25 mg PO HS 07/19/22 07/19/22 History Allergies Allergy/AdvReac Type Severity Reaction Status Date / Time No Known Allergies Allergy Verified 07/19/22 14:29 Physical Exam Vitals: Vital Signs Temp Pulse Resp BP Pulse Ox 07/19/22 21:31 94 16 137/71 97 07/19/22 17:00 105 H 20 116/63 94 L 07/19/22 13:46 87 18 07/19/22 13:38 90 20 07/19/22 13:09 19 07/19/22 13:00 96 16 99/55 93 L 07/19/22 12:07 97.4 F L 104 H 28 H 102/51 94 L Intake and Output 07/19/22 07/19/22 07/20/22 14:59 22:59 06:59 Other: Weight 45.359 kg GENERAL EXAM: Alert, 71-year-old white female, comfortable in no apparent distress. HEAD: Normocephalic and atraumatic EYES: Normal reaction of pupils, equal size. NOSE: Clear with pink turbinates. THROAT: No erythema or exudates. NECK: No masses, no JVD. CHEST: No chest wall deformity. LUNGS: Expiratory wheezes heard throughout, with reduce air entry of the left lung. no crackles, rhonchi. On 2 L nasal cannula. No conversational dyspnea or accessory muscle use.. CVS: S1 and S2 normal with no audible murmur, regular rhythm. No extra heart sounds ABDOMEN: No hepatosplenomegaly, active bowel sounds, no guarding or rigidity. SPINE: No scoliosis or deformity SKIN: No rashes CENTRAL NERVOUS SYSTEM: No focal deficits, tone is normal in all 4 extremities. EXTREMITIES: There is no peripheral edema, clubbing, or cyanosis. Peripheral pulses are intact. Results - Laboratory Findings CBC and BMP: 07/19/22 12:35 07/19/22 12:35 PT/INR, D-dimer PT 9.5 sec (9.0-12.0) 07/19/22 12:35 INR 0.9 (<1.2) 07/19/22 12:35 D-Dimer 0.58 mg/L FEU (<0.60) 07/19/22 12:35 Abnormal lab findings: Abnormal Labs 07/19/22 07/19/22 07/19/22 12:35 12:35 18:54 Sodium 134 L Carbon Dioxide 20 L Creatinine 0.51 L Glucose 328 H POC Glucose (mg/dL) 438 H Plasma Lactic Acid Jeremy 2.5 H* 07/19/22 07/20/22 21:22 01:14 Sodium Carbon Dioxide Creatinine Glucose POC Glucose (mg/dL) 350 H 244 H Plasma Lactic Acid Jeremy - Diagnostic Findings Chest x-ray: image reviewed Assessment and Plan Assessment: Acute exacerbation of COPD, possibly related to acute bronchitis. No obvious fo alina consolidation or pneumonia found on chest x-ray. Negative for COVID-19, influenza, RSV. Acute hypoxic respiratory failure secondary to above, currently on 2 L nasal cannula. History of left lung squamous cell carcinoma status post left upper lobectomy in 2018 Ex-smoker, with a [id number] history Coronary artery disease with previous SD and stenting of the LAD Hypertension Hyperlipidemia Insulin-dependent diabetes mellitus type 2 Diverticulitis with previous history of bowel resection History of frequent UTIs Fibromyalgia Restless leg syndrome Plan: Patient's medication, labs, chest x-ray were reviewed Continue bronchodilators Start the patient on Symbicort inhaler IV Solu-Medrol 60 mg every 6 hours Continue supplemental oxygen to maintain oxygen saturation 92% or greater Check procalcitonin level Continue empiric antibiotics for now NovoLog insulin ACHS We will continue to follow I have personally seen and examined the patient, performed the documentation and the assessment and plan as written. Number of minutes spent on the visit:20
[2022-07-20] MEDS ORDERED: INSULIN DETEMIR (LEVEMIR) 100 UNIT/ML SYR SQ SCH (07:00)
[2022-07-20 07:02] LABS: Glucose,Whole Blood 281 mg/dL (70-110)
[2022-07-20] MEDS: INSULIN ASPART (NovoLOG) 100 UNIT/ML VIAL SQ SCH ×4 (07:04→20:59)
[2022-07-20] MEDS: methylPREDNISolone SOD SUCCI 125 MG/2 ML VIAL IV SCH ×4 (07:06→23:47)
[2022-07-20 07:12] LABS: Basophils % (A) 0 %; Eosinophils % (A) 0 %; HCT 40.1 % (34.0-46.0); HGB 12.9 gm/dL (11.4-16.0); Lymphocytes # (A) 0.8 k/uL (1.0-4.8); Lymphocytes % (A) 14 %; MCH 28.1 pg (25.0-35.0); MCHC 32.3 g/dL (31.0-37.0); MCV 87.2 fL (80.0-100.0); Mean Platelet Volume 8.8; Monocytes # (A) 0.1 k/uL (0-1.0); Monocytes % (A) 2 %; Neutrophils # (A) 4.8 k/uL (1.3-7.7); Neutrophils % (A) 83 %; Platelet Count 193 k/uL (150-450); RDW 14.7 % (11.5-15.5); WBC 5.9 k/uL (3.8-10.6)
[2022-07-20] MEDS: HEPARIN SODIUM,PORCINE/PF 5,000 UNIT/0.5 ML SYRINGE SQ SCH ×3 (07:23→20:58)
[2022-07-20 07:50] LABS: African American GFR (CKD) >90 (>60 ml/min/1.73 sqM); Anion Gap 9 mmol/L; Blood Urea Nitrogen 11 mg/dL (7-17); Calcium 8.6 mg/dL (8.4-10.2); Carbon Dioxide 23 mmol/L (22-30); Chloride 106 mmol/L (98-107); Glucose 272 mg/dL (74-99); Non-African American GFR(CKD) >90 (>60 ml/min/1.73 sqM); Potassium 4.3 mmol/L (3.5-5.1); Sodium 138 mmol/L (137-145)
[2022-07-20] MEDS: IPRATROPIUM-ALBUTEROL 3 ML NEB INHALATION SCH ×4 (08:01→21:04)
[2022-07-20] MEDS: SYMBICORT 160-4.5 MCG INHALER INHALATION SCH ×2 (08:01→21:04)
[2022-07-20] MEDS: ASPIRIN 81 MG PO SCH ×2 (08:50→08:51)
[2022-07-20] MEDS: CLOPIDOGREL 75 MG TAB PO SCH ×2 (08:50→08:51)
[2022-07-20] MEDS: PANTOPRAZOLE 40 MG TABLET PO SCH ×2 (08:50→08:51)
[2022-07-20] MEDS: ISOSORBIDE MONONITRATE ER 30 MG TAB.ER.24H PO SCH ×2 (08:50→08:51)
[2022-07-20] MEDS ORDERED: DOCUSATE 100 MG CAP PO PRN (09:24)
[2022-07-20] MEDS ORDERED: NITROGLYCERIN SL TABS 0.4 MG TAB SUBLINGUAL PRN (09:24)
[2022-07-20] MEDS: HYDROcodone/APAP 10-325MG 1 EACH TAB PO PRN ×2 (10:21→20:58)
[2022-07-20] MEDS: AZITHROMYCIN 500 MG in SODIUM CHLORIDE 0.9% 250 ML IVPB SCH (10:22)
[2022-07-20] MEDS: lisinopriL 5 MG TAB PO SCH (12:38)
[2022-07-20] MEDS: METOPROLOL SUCCINATE (ER) 25 MG TAB.ER.24H PO SCH (12:38)
[2022-07-20 12:51] LABS: Glucose,Whole Blood 404 mg/dL (70-110)
[2022-07-20 17:18] LABS: Glucose,Whole Blood 414 mg/dL (70-110)
--- NOTE | 2022-07-20 18:34 | P.HPIM ---
History of Present Illness H&P Date: 07/20/22 Neeru Dow, is a 71-year-old female who presented to [facility] emergency room with a chief complaint of worsening shortness of breath She was evaluated in the emergency room vital examination on presentation revealed a temperature of 97.4 pulse 104 respiration 28 blood pressure 102/51 pulse ox 94% on room air Laboratory data revealed a white blood count of 9.8 hemoglobin 14.0 platelet count 237 d-dimer 0.58 BUN 14 creatinine 0.51 troponin level less than 0.012 lactic acid on presentation 2.5 COVID-19, influenza, and RSV titers were negative. Testing in the emergency room revealed EKG done in the emergency room revealed sinus rhythm with right atrial enlargement and left atrial enlargement. Chest x-ray done in the emergency room revealed evidence of COPD with left he midiaphragm elevation and chronic density in the left perihilar region. No acute process. Patient was admitted to medical floor for further evaluation and treatment, preliminary diagnosis is acute exacerbation of COPD, patient was started on IV Solu-Medrol and inhaled bronchodilators pulmonary consultation was requested Past medical history is significant for history of coronary artery disease, h istory of insulin-dependent diabetes mellitus, history of fibromyalgia, history of gastroesophageal reflux disease, history of degenerative disc disease with chronic back pain, history of restless leg syndrome, history of peptic ulcer disease On review of systems patient is alert and oriented 3 in no apparent distress there is no fever or chills no headache or dizziness no chest pain she is compl aining of cough and shortness of breath there is no nausea or vomiting no abdominal pain no diarrhea no blood in the stools no burning with urination no frequency or urgency and no hematuria Past Medical History Past Medical History: Coronary Artery Disease (CAD), Cancer, COPD, Diabetes Mellitus, Fibromyalgia, GERD/Reflux, Myocardial Infarction ([place]) Additional Past Medical History / Comment(s): Idiopathic thrombocytopenia purpura, IBS, diverticulitis, hiatal hernia, 2 herniated discs-L3/L4, Restless Leg Syndrome, gastritis, superficial gastric ulcers. Squamous cell lung carcinoma post left upper lobectomy Last Myocardial Infarction Date:: 01/2017 History of Any Multi-Drug Resistant Organisms: None Reported Past Surgical History: Adenoidectomy, Bladder Surgery, Bowel Resection, Cholecystectomy, Heart Catheterization With Stent, Hernia Repair, Hysterectomy, Tonsillectomy Additional Past Surgical History / Comment(s): BLADDER SUSPENSION x 2, breast biopsy x3, bowel resection due to rupture. Robotic-assisted left upper lo bectomy in 2018 Past Anesthesia/Blood Transfusion Reactions: No Reported Reaction Additional Past Anesthesia/Blood Transfusion Reaction / Comment(s): Pt received blood in 2006 due to ITP without reaction. Date of Last Stent Placement:: 01/2017 Past Psychological History: Anxiety Smoking Status: Former smoker Past Alcohol Use History: None Reported Past Drug Use History: None Reported - Past Family History Mother Family Medical History: Cancer, Diabetes Mellitus Additional Family Medical History / Comment(s): Father had a defibrillator. He of heart dx in his 80's Father Family Medical History: Diabetes Mellitus Additional Family Medical History / Comment(s): HEART DISEASE Medications and Allergies Home Medications Medication Instructions Recorded Confirmed Type Pantoprazole [Protonix] 40 mg PO DAILY 01/14/17 07/19/22 History traZODone HCL 50 mg PO HS 09/07/18 07/19/22 History Metoprolol Succinate (ER) [Toprol 25 mg PO DAILY 01/13/19 07/19/22 History XL] Atorvastatin [Lipitor] 40 mg PO HS #30 tab 01/15/19 07/19/22 Rx Aspirin EC [Ecotrin Low Dose] 81 mg PO DAILY 01/03/21 07/19/22 History Isosorbide Mononitrate ER [Imdur] 30 mg PO DAILY #90 tab 09/15/21 07/19/22 Rx Insulin Aspart [NovoLOG Flexpen] See Protocol SQ ACHS PRN 01/05/22 07/19/22 History ALPRAZolam [Xanax] 0.25 mg PO BID PRN 02/02/22 07/19/22 History Clopidogrel [Plavix] 75 mg PO DAILY 02/02/22 07/19/22 History HYDROcodone/APAP 10-325MG [[place] 1 tab PO BID PRN 02/02/22 07/19/22 History 10-325] Loperamide [Imodium] 2 mg PO BID PRN 02/02/22 07/19/22 History Docusate [Colace] 100 mg PO DAILY PRN 07/19/22 07/19/22 History Insulin Detemir [Levemir Flexpen] 25 units SQ DAILY PRN 07/19/22 07/19/22 History Ipratropium/Albuter 20-100Mcg 2 puff INHALATION RT-BID 07/19/22 07/19/22 History [Combivent Respimat 20-100Mcg Inhaler] Melatonin 3 mg PO HS PRN 07/19/22 07/19/22 History Nitroglycerin Sl Tabs [Nitrostat] 0.4 mg SUBLINGUAL Q5M PRN 07/19/22 07/19/22 History lisinopriL [Zestril] 5 mg PO DAILY 07/19/22 07/19/22 History rOPINIRole HCL [Requip] 0.25 mg PO HS 07/19/22 07/19/22 History Allergies Allergy/AdvReac Type Severity Reaction Status Date / Time No Known Allergies Allergy Verified 07/19/22 14:29 Physical Exam Vitals: Vital Signs Temp Pulse Resp BP Pulse Ox 07/20/22 08:53 98 F 98 16 118/52 96 07/20/22 08:08 73 07/20/22 08:02 75 97 07/20/22 04:52 73 18 127/59 07/20/22 01:28 77 22 139/64 98 07/19/22 21:31 94 16 137/71 97 07/19/22 17:00 105 H 20 116/63 94 L 07/19/22 13:46 87 18 07/19/22 13:38 90 20 07/19/22 13:09 19 07/19/22 13:00 96 16 99/55 93 L 07/19/22 12:07 97.4 F L 104 H 28 H 102/51 94 L In general patient is alert and oriented x 3 in no distress HEENT head normocephalic and atraumatic Neck is supple no JVD no goiter no lymphadenopathy no carotid bruit Chest examination reveals a crackles in both bases with prolonged expiratory phase with severe wheezing Cardiac exam reveals regular heart sounds S1 and S2 no gallops no murmurs Abdomen is soft nontender no organomegaly with normal bowel sounds Extremity exam reveals no edema no cyanosis or clubbing Neurological examination reveals no gross focal deficits Results CBC & Chem 7: 07/20/22 06:23 07/20/22 06:23 Labs: Abnormal Lab Results - Last 24 Hours (Table) 07/19/22 07/19/22 07/19/22 Range/Units 12:35 12:35 18:54 Lymphocytes # (1.0-4.8) k/uL Sodium 134 L (137-145) mmol/L Carbon Dioxide 20 L (22-30) mmol/L Creatinine 0.51 L (0.52-1.04) mg/dL Glucose 328 H (74-99) mg/dL POC Glucose (mg/dL) 438 H (70-110) mg/dL Plasma Lactic Acid Jeremy 2.5 H* (0.7-2.0) mmol/L 07/19/22 07/20/22 07/20/22 Range/Units 21:22 01:14 06:23 Lymphocytes # 0.8 L (1.0-4.8) k/uL Sodium (137-145) mmol/L Carbon Dioxide (22-30) mmol/L Creatinine (0.52-1.04) mg/dL Glucose (74-99) mg/dL POC Glucose (mg/dL) 350 H 244 H (70-110) mg/dL Plasma Lactic Acid Jeremy (0.7-2.0) mmol/L 07/20/22 07/20/22 Range/Units 06:23 07:01 Lymphocytes # (1.0-4.8) k/uL Sodium (137-145) mmol/L Carbon Dioxide (22-30) mmol/L Creatinine 0.42 L (0.52-1.04) mg/dL Glucose 272 H (74-99) mg/dL POC Glucose (mg/dL) 281 H (70-110) mg/dL Plasma Lactic Acid Jeremy (0.7-2.0) mmol/L Assessment and Plan Plan: Acute exacerbation of chronic obstructive pulmonary disease Acute purulent bronchitis Acute hypoxic respiratory failure Previous history of left lung squama cell carcinoma status post left upper lobectomy in 2018 Underlying history of hypertension Underlying history of hyperlipidemia Underlying history of insulin-dependent diabetes mellitus Underlying history of tobacco abuse Underlying history of coronary artery disease with previous history of myocardial infarction and angioplasty and stent placement in the LAD Underlying history of gastroesophageal reflux disease Underlying history of fibromyalgia Underlying history of restless leg syndrome At this time patient was seen and examined in the emergency room She will be admitted to medical floor she was started on IV Solu-Medrol and inhaled steroids and inhaled bronchodilators She was also started on IV antibiotic ceftriaxone and Zithromax Home medications reviewed and reordered Pulmonary consultation was requested Will follow
[2022-07-20] MEDS ORDERED: IPRATROPIUM-ALBUTEROL 3 ML NEB INHALATION SCH (20:00)
[2022-07-20 20:32] LABS: Glucose,Whole Blood 456 mg/dL (70-110)
[2022-07-20] MEDS: traZODone HCL 50 MG TAB PO SCH (20:58)
[2022-07-20] MEDS: ATORVASTATIN 40 MG TAB PO SCH (20:58)
[2022-07-20] MEDS: MELATONIN 3 MG TABLET PO PRN (20:59)
[2022-07-20 23:50] LABS: Glucose,Whole Blood 362 mg/dL (70-110)
[2022-07-20] MEDS: ALPRAZolam 0.25 MG TAB PO PRN (23:52)
[2022-07-21 05:28] LABS: Glucose,Whole Blood 361 mg/dL (70-110)
[2022-07-21] MEDS: methylPREDNISolone SOD SUCCI 125 MG/2 ML VIAL IV SCH ×3 (05:49→17:08)
[2022-07-21] MEDS ORDERED: INSULIN DETEMIR (LEVEMIR) 100 UNIT/ML SYR SQ SCH (07:00)
[2022-07-21] MEDS: INSULIN ASPART (NovoLOG) 100 UNIT/ML VIAL SQ SCH ×4 (07:58→21:30)
[2022-07-21] MEDS: HEPARIN SODIUM,PORCINE/PF 5,000 UNIT/0.5 ML SYRINGE SQ SCH ×2 (07:58→21:29)
[2022-07-21] MEDS: METOPROLOL SUCCINATE (ER) 25 MG TAB.ER.24H PO SCH (07:59)
[2022-07-21] MEDS: lisinopriL 5 MG TAB PO SCH (07:59)
[2022-07-21] MEDS: AZITHROMYCIN 500 MG in SODIUM CHLORIDE 0.9% 250 ML IVPB SCH (08:59)
[2022-07-21] MEDS: SYMBICORT 160-4.5 MCG INHALER INHALATION SCH ×2 (09:13→21:13)
[2022-07-21] MEDS: IPRATROPIUM-ALBUTEROL 3 ML NEB INHALATION SCH ×4 (09:13→21:14)
[2022-07-21 09:34] LABS: African American GFR (CKD) 104.9 (60.0-200.0); Albumin 3.7 g/dL (3.8-4.9); Albumin/Globulin Ratio 1.79 (1.60-3.17); Anion Gap 8.3 mmol/L (10.00-18.00); BUN/Creat Ratio 21.91 Ratio (12.00-20.00); Blood Urea Nitrogen 13.1 mg/dL (9.0-27.0); Calcium 9.1 mg/dL (8.7-10.3); Globulin 2.1 g/dL (1.6-3.3); Non-African American GFR(CKD) 90.5 (60.0-200.0); Potassium 4.2 mmol/L (3.5-5.5); Total Bilirubin 0.2 mg/dL (0.30-1.20); Total Protein 5.8 g/dL (6.2-8.2)
[2022-07-21 09:42] LABS: Basophils # (A) 0.01 X 10*3/uL (0.00-0.10); Basophils % (A) 0.1 %; Eosinophils # (A) 0 X 10*3/uL (0.04-0.35); Eosinophils % (A) 0 %; HCT 37.6 % (37.2-46.3); HGB 12.1 g/dL (12.0-15.0); Immature Grans, Automated 1.7 %; Lymphocytes # (A) 0.81 X 10*3/uL (0.90-5.00); Lymphocytes % (A) 7.5 %; MCH 28.1 pg (27.0-32.0); MCHC 32.2 g/dL (32.0-37.0); MCV 87.2 fL (80.0-97.0); Mean Platelet Volume 11.6 fL (9.5-12.2); Monocytes % (A) 3.7 %; NRBC Per 100 WBC 0 /100 WBCS (0.0-0.0); Neutrophils # (A) 9.43 X 10*3/uL (1.80-7.70); Platelet Count 251 X 10*3/uL (140-440); RBC 4.31 X 10*6/uL (4.10-5.20); RDW 14.7 % (11.5-14.5); WBC 10.83 X 10*3/uL (4.50-10.00)
--- NOTE | 2022-07-21 09:45 | P.PN ---
Subjective Progress Note Date: 07/21/22 Neeru Dow, is a 71-year-old female who presented to [facility] emergency room with a chief complaint of worsening shortness of breath She was evaluated in the emergency room vital examination on presentation revealed a temperature of 97.4 pulse 104 respiration 28 blood pressure 102/51 pulse ox 94% on room air Laboratory data revealed a white blood count of 9.8 hemoglobin 14.0 platelet count 237 d-dimer 0.58 BUN 14 creatinine 0.51 troponin level less than 0.012 lactic acid on presentation 2.5 COVID-19, influenza, and RSV titers were negative. Testing in the emergency room revealed EKG done in the emergency room revealed sinus rhythm with right atrial enlargement and left atrial enlargement. Chest x-ray done in the emergency room revealed evidence of COPD with left hemidiaph ragm elevation and chronic density in the left perihilar region. No acute process. Patient was admitted to medical floor for further evaluation and treatment, preliminary diagnosis is acute exacerbation of COPD, patient was started on IV Solu-Medrol and inhaled bronchodilators pulmonary consultation was requested Past medical history is significant for history of coronary artery disease, history of insulin-dependent diabetes mellitus, history of fibromyalgia, history of gastroesophageal reflux disease, history of degenerative disc disease with chronic back pain, history of restless leg syndrome, history of peptic ulcer disease On review of systems patient is alert and oriented 3 in no apparent distress there is no fever or chills no headache or dizziness no chest pain she is complaining of cough and shortness of breath there is no nausea or vomiting no abdominal pain no diarrhea no blood in the stools no burning with urination no frequency or urgency and no hematuria Unfortunately 11/12/2022 patient is alert and oriented 3. Patient still having coughing and shortness of breath. Patient reports slightly improved. Patient remains on Solu-Medrol azithromycin and ceftriaxone. Pulmonary services are following. Patient denies chest pain. Patient denies nausea vomiting or diar caesar. Patient denies any urinary burning or frequency. Current vital signs temp 97.5, heart rate 85, respiratory rate 17, blood pressure 128/66 Objective - Vital Signs Vital signs: Vital Signs Temp 97.5 F L 07/21/22 07:07 Pulse 78 07/21/22 09:28 Resp 17 07/21/22 07:07 BP 128/66 07/21/22 07:07 Pulse Ox 96 07/21/22 09:16 FiO2 Intake & Output 07/20/22 07/21/22 07/21/22 18:59 06:59 18:59 Weight 45.359 kg Other: # Voids 1 2 # Bowel Movements 0 - Exam In general patient is alert and oriented x 3 in no distress HEENT head normocephalic and atraumatic Neck is supple no JVD no goiter no lymphadenopathy no carotid bruit Chest examination reveals a crackles in both bases with prolonged expiratory phase with severe wheezing Cardiac exam reveals regular heart sounds S1 and S2 no gallops no murmurs Abdomen is soft nontender no organomegaly with normal bowel sounds Extremity exam reveals no edema no cyanosis or clubbing Neurological examination reveals no gross focal deficits - Labs CBC & Chem 7: 07/21/22 05:39 07/21/22 05:39 Labs: Abnormal Lab Results - Last 24 Hours (Table) 07/20/22 07/20/22 07/20/22 Range/Units 06:23 12:40 17:16 WBC (4.50-10.00) X 10*3/uL RDW (11.5-14.5) % Immature Gran # (0.00-0.04) X 10*3/uL Neutrophils # (1.80-7.70) X 10*3/uL Lymphocytes # (0.90-5.00) X 10*3/uL Eosinophils # (0.04-0.35) X 10*3/uL Sodium (135-145) mmol/L Anion Gap (10.00-18.00) mmol/L BUN/Creatinine Ratio (12.00-20.00) Ratio Glucose (70-110) mg/dL POC Glucose (mg/dL) 404 H 414 H (70-110) mg/dL Hemoglobin A1c 11.4 H (0.0-6.0) % Total Bilirubin (0.30-1.20) mg/dL AST (13-35) U/L Total Protein (6.2-8.2) g/dL Albumin (3.8-4.9) g/dL 07/20/22 07/20/22 07/21/22 Range/Units 20:31 23:46 05:26 WBC (4.50-10.00) X 10*3/uL RDW (11.5-14.5) % Immature Gran # (0.00-0.04) X 10*3/uL Neutrophils # (1.80-7.70) X 10*3/uL Lymphocytes # (0.90-5.00) X 10*3/uL Eosinophils # (0.04-0.35) X 10*3/uL Sodium (135-145) mmol/L Anion Gap (10.00-18.00) mmol/L BUN/Creatinine Ratio (12.00-20.00) Ratio Glucose (70-110) mg/dL POC Glucose (mg/dL) 456 H 362 H 361 H (70-110) mg/dL Hemoglobin A1c (0.0-6.0) % Total Bilirubin (0.30-1.20) mg/dL AST (13-35) U/L Total Protein (6.2-8.2) g/dL Albumin (3.8-4.9) g/dL 07/21/22 07/21/22 Range/Units 05:39 05:39 WBC 10.83 H (4.50-10.00) X 10*3/uL RDW 14.7 H (11.5-14.5) % Immature Gran # 0.18 H (0.00-0.04) X 10*3/uL Neutrophils # 9.43 H (1.80-7.70) X 10*3/uL Lymphocytes # 0.81 L (0.90-5.00) X 10*3/uL Eosinophils # 0 L (0.04-0.35) X 10*3/uL Sodium 134 L (135-145) mmol/L Anion Gap 8.30 L (10.00-18.00) mmol/L BUN/Creatinine Ratio 21.91 H (12.00-20.00) Ratio Glucose 337 H (70-110) mg/dL POC Glucose (mg/dL) (70-110) mg/dL Hemoglobin A1c (0.0-6.0) % Total Bilirubin 0.20 L (0.30-1.20) mg/dL AST 10 L (13-35) U/L Total Protein 5.8 L (6.2-8.2) g/dL Albumin 3.7 L (3.8-4.9) g/dL Assessment and Plan Assessment: Acute exacerbation of chronic obstructive pulmonary disease Acute purulent bronchitis Acute hypoxic respiratory failure Previous history of left lung squama cell carcinoma status post left upper lobectomy in 2018 Underlying history of hypertension Underlying history of hyperlipidemia Underlying history of insulin-dependent diabetes mellitus Underlying history of tobacco abuse Underlying history of coronary artery disease with previous history of myocardial infarction and angioplasty and stent placement in the LAD Underlying history of gastroesophageal reflux disease Underlying history of fibromyalgia Underlying history of restless leg syndrome At this time patient was seen and examined in the emergency room She will be admitted to medical floor she was started on IV Solu-Medrol and inhaled steroids and inhaled bronchodilators She was also started on IV antibiotic ceftriaxone and Zithromax Home medications reviewed and reordered Pulmonary consultation was requested Will follow
[2022-07-21 10:35] VITALS: BMI 18.3
[2022-07-21] MEDS: HYDROcodone/APAP 10-325MG 1 EACH TAB PO PRN ×2 (10:46→19:01)
[2022-07-21] MEDS: guaiFENesin-DM 100-10MG/5ML 10 ML CUP PO PRN ×2 (10:47→17:08)
[2022-07-21 11:52] LABS: Glucose,Whole Blood 374 mg/dL (70-110)
--- NOTE | 2022-07-21 12:26 | P.PN ---
Subjective Progress Note Date: 07/21/22 I'm seeing this patient in new consultation today 07/20/2022 for acute COPD exacerbation. Patient is a 71-year-old white female with past medical history significant for COPD, squamous cell lung cancer status post left upper lobectomy in 2018, coronary artery disease with previous IL and stenting of LAD, hypertension, hyperlipidemia, insulin-dependent diabetes mellitus, diverticulitis with previous bowel resection, restless leg syndrome, fibromyalgia, and is in ex-smoker with a [id number] history. Patient follows with Dr. Bebo Farrell in the outpatient setting for management of her pulmonary issues. She is routinely on a combination of Combivent and Symbicort. Yesterday afternoon, the patient presented to the emergency room with a chief complaint of shortness of breath and associated nonproductive cough. Patient also reports some nonradiating chest pain only with coughing. Denies fevers. She denies any recent sick contacts. Patient is currently in the emergency room, waiting for a bed on the general medical floor. She is sitting up on the stretcher, on 2 L nasal cannula, in no acute distress. SPO2 at 95%. Chest x- ray on arrival showed no acute cardiopulmonary process. There was a chronic left hemidiaphragm, and some suspected post surgical changes in the left perihilar region most likely from her previous lobectomy. No focal consolidation or evidence of pneumonia. CBC was unremarkable. BMP on arrival showed a sodium 134, potassium 4.8, chloride 102, serum CO2 20, BUN 14, creatinine 0.51, glucose was elevated at 328. Troponins negative 1. ECG on arrival showed normal sinus rhythm without obvious acute ischemic changes. Patient was negative for COVID- 19, RSV, influenza. Her lungs are quite wheezy on auscultation. Patient is currently on a combination of bronchodilators and Solu-Medrol. Patient is being empirically covered on a combination of Rocephin and Zithromax. Afebrile. Vital signs are stable. The patient is seen today 07/21/2022 in follow-up on the regular medical floor. She is currently sitting up in bed. Awake and alert in no acute distress. Maintaining O2 saturations in the 90s on 2 L/m per nasal cannula. She still has a loose congested cough. Still with some bronchospasm and wheezing. Blood cultures are pending. White count 10.8. Hemoglobin 12.1. Platelets 251. Sodium 134. Potassium 4.2. Bicarb 24. BUN 13. Creatinine 0.8. Glucose 337. AST 10. ALT 14. Pro calcitonin was 0.05. She is currently on ceftriaxone and azithromycin. Remains on DuoNeb inhalations, Symbicort, IV Solu-Medrol. Heparin for DVT prophylaxis. Objective - Vital Signs Vital signs: Vital Signs Temp 97.5 F L 07/21/22 07:07 Pulse 78 07/21/22 09:28 Resp 17 07/21/22 07:07 BP 128/66 07/21/22 07:07 Pulse Ox 96 07/21/22 09:16 FiO2 Intake & Output 07/20/22 07/21/22 07/21/22 18:59 06:59 18:59 Weight 45.359 kg 45.359 kg Other: # Voids 1 2 # Bowel Movements 0 - Exam GENERAL EXAM: Alert, pleasant 71-year-old female, on 2 L nasal cannula, fairly comfortable in no apparent distress. HEAD: Normocephalic. EYES: Normal reaction of pupils, equal size. NOSE: Clear with pink turbinates. THROAT: No erythema or exudates. NECK: No masses, no JVD. CHEST: No chest wall deformity. LUNGS: Equal air entry with bilateral end expiratory wheeze. CVS: S1 and S2 normal with no audible murmur, regular rhythm. ABDOMEN: No hepatosplenomegaly, normal bowel sounds, no guarding or rigidity. SPINE: No scoliosis or deformity SKIN: No rashes CENTRAL NERVOUS SYSTEM: No focal deficits, tone is normal in all 4 extremities. EXTREMITIES: There is no peripheral edema. No clubbing, no cyanosis. Peripheral pulses are intact. - Labs CBC & Chem 7: 07/21/22 05:39 07/21/22 05:39 Labs: Abnormal Lab Results - Last 24 Hours (Table) 07/20/22 07/20/22 07/20/22 Range/Units 06:23 12:40 17:16 WBC (4.50-10.00) X 10*3/uL RDW (11.5-14.5) % Immature Gran # (0.00-0.04) X 10*3/uL Neutrophils # (1.80-7.70) X 10*3/uL Lymphocytes # (0.90-5.00) X 10*3/uL Eosinophils # (0.04-0.35) X 10*3/uL Sodium (135-145) mmol/L Anion Gap (10.00-18.00) mmol/L BUN/Creatinine Ratio (12.00-20.00) Ratio Glucose (70-110) mg/dL POC Glucose (mg/dL) 404 H 414 H (70-110) mg/dL Hemoglobin A1c 11.4 H (0.0-6.0) % Total Bilirubin (0.30-1.20) mg/dL AST (13-35) U/L Total Protein (6.2-8.2) g/dL Albumin (3.8-4.9) g/dL 07/20/22 07/20/22 07/21/22 Range/Units 20:31 23:46 05:26 WBC (4.50-10.00) X 10*3/uL RDW (11.5-14.5) % Immature Gran # (0.00-0.04) X 10*3/uL Neutrophils # (1.80-7.70) X 10*3/uL Lymphocytes # (0.90-5.00) X 10*3/uL Eosinophils # (0.04-0.35) X 10*3/uL Sodium (135-145) mmol/L Anion Gap (10.00-18.00) mmol/L BUN/Creatinine Ratio (12.00-20.00) Ratio Glucose (70-110) mg/dL POC Glucose (mg/dL) 456 H 362 H 361 H (70-110) mg/dL Hemoglobin A1c (0.0-6.0) % Total Bilirubin (0.30-1.20) mg/dL AST (13-35) U/L Total Protein (6.2-8.2) g/dL Albumin (3.8-4.9) g/dL 07/21/22 07/21/22 07/21/22 Range/Units 05:39 05:39 11:51 WBC 10.83 H (4.50-10.00) X 10*3/uL RDW 14.7 H (11.5-14.5) % Immature Gran # 0.18 H (0.00-0.04) X 10*3/uL Neutrophils # 9.43 H (1.80-7.70) X 10*3/uL Lymphocytes # 0.81 L (0.90-5.00) X 10*3/uL Eosinophils # 0 L (0.04-0.35) X 10*3/uL Sodium 134 L (135-145) mmol/L Anion Gap 8.30 L (10.00-18.00) mmol/L BUN/Creatinine Ratio 21.91 H (12.00-20.00) Ratio Glucose 337 H (70-110) mg/dL POC Glucose (mg/dL) 374 H (70-110) mg/dL Hemoglobin A1c (0.0-6.0) % Total Bilirubin 0.20 L (0.30-1.20) mg/dL AST 10 L (13-35) U/L Total Protein 5.8 L (6.2-8.2) g/dL Albumin 3.7 L (3.8-4.9) g/dL Microbiology - Last 24 Hours (Table) 07/19/22 16:15 Blood Culture - Preliminary Blood 07/19/22 16:00 Blood Culture - Preliminary Blood Assessment and Plan Assessment: Acute exacerbation of COPD, possibly related to acute bronchitis. No obvious focal consolidation or pneumonia found on chest x-ray. Negative for COVID-19, influenza, RSV. Pro calcitonin negative at 0.05. Acute hypoxic respiratory failure secondary to above, currently on 2 L nasal cannula. History of left lung squamous cell carcinoma status post left upper lobectomy in 2018 Ex-smoker, with a [id number] history Coronary artery disease with previous IL and stenting of the LAD Hypertension Hyperlipidemia Insulin-dependent diabetes mellitus type 2 Diverticulitis with previous history of bowel resection History of frequent UTIs Fibromyalgia Restless leg syndrome Plan: The patient was seen and evaluated Labs and medications reviewed Pro calcitonin 0.05 We'll discontinue ceftriaxone and azithromycin We'll use doxycycline empirically Continue bronchodilators and steroids Possibly home in the a.m. We'll continue to follow I have personally seen and examined the patient, performed the documentation and the assessment and plan as written. Number of minutes spent on the visit: 10.
--- NOTE | 2022-07-21 15:14 | P.PN ---
Subjective Progress Note Date: 07/21/22 Neeru Dow, is a 71-year-old female who presented to [facility] emergency room with a chief complaint of worsening shortness of breath She was evaluated in the emergency room vital examination on presentation revealed a temperature of 97.4 pulse 104 respiration 28 blood pressure 102/51 pulse ox 94% on room air Laboratory data revealed a white blood count of 9.8 hemoglobin 14.0 platelet count 237 d-dimer 0.58 BUN 14 creatinine 0.51 troponin level less than 0.012 lactic acid on presentation 2.5 COVID-19, influenza, and RSV titers were negative. Testing in the emergency room revealed EKG done in the emergency room revealed sinus rhythm with right atrial enlargement and left atrial enlargement. Chest x-ray done in the emergency room revealed evidence of COPD with left hemidiap hragm elevation and chronic density in the left perihilar region. No acute process. Patient was admitted to medical floor for further evaluation and treatment, preliminary diagnosis is acute exacerbation of COPD, patient was started on IV Solu-Medrol and inhaled bronchodilators pulmonary consultation was requested Past medical history is significant for history of coronary artery disease, history of insulin-dependent diabetes mellitus, history of fibromyalgia, history of gastroesophageal reflux disease, history of degenerative disc disease with chronic back pain, history of restless leg syndrome, history of peptic ulcer disease On review of systems patient is alert and oriented 3 in no apparent distress there is no fever or chills no headache or dizziness no chest pain she is complaining of cough and shortness of breath there is no nausea or vomiting no abdominal pain no diarrhea no blood in the stools no burning with urination no frequency or urgency and no hematuria Unfortunately 11/12/2022 patient is alert and oriented 3. Patient still having coughing and shortness of breath. Patient reports slightly improved. Patient remains on Solu-Medrol azithromycin and ceftriaxone. Pulmonary services are following. Patient denies chest pain. Patient denies nausea vomiting or carlyn rrhea. Patient denies any urinary burning or frequency. Current vital signs temp 97.5, heart rate 85, respiratory rate 17, blood pressure 128/66 Objective - Vital Signs Vital signs: Vital Signs Temp 97.5 F L 07/21/22 07:07 Pulse 78 07/21/22 09:28 Resp 17 07/21/22 07:07 BP 128/66 07/21/22 07:07 Pulse Ox 96 07/21/22 09:16 FiO2 Intake & Output 07/20/22 07/21/22 07/21/22 18:59 06:59 18:59 Weight 45.359 kg 45.359 kg Other: # Voids 1 2 # Bowel Movements 0 - Exam In general patient is alert and oriented x 3 in no distress HEENT head normocephalic and atraumatic Neck is supple no JVD no goiter no lymphadenopathy no carotid bruit Chest examination reveals a crackles in both bases with prolonged expiratory phase with severe wheezing Cardiac exam reveals regular heart sounds S1 and S2 no gallops no murmurs Abdomen is soft nontender no organomegaly with normal bowel sounds Extremity exam reveals no edema no cyanosis or clubbing Neurological examination reveals no gross focal deficits - Labs CBC & Chem 7: 07/21/22 05:39 07/21/22 05:39 Labs: Abnormal Lab Results - Last 24 Hours (Table) 07/20/22 07/20/22 07/20/22 Range/Units 06:23 17:16 20:31 WBC (4.50-10.00) X 10*3/uL RDW (11.5-14.5) % Immature Gran # (0.00-0.04) X 10*3/uL Neutrophils # (1.80-7.70) X 10*3/uL Lymphocytes # (0.90-5.00) X 10*3/uL Eosinophils # (0.04-0.35) X 10*3/uL Sodium (135-145) mmol/L Anion Gap (10.00-18.00) mmol/L BUN/Creatinine Ratio (12.00-20.00) Ratio Glucose (70-110) mg/dL POC Glucose (mg/dL) 414 H 456 H (70-110) mg/dL Hemoglobin A1c 11.4 H (0.0-6.0) % Total Bilirubin (0.30-1.20) mg/dL AST (13-35) U/L Total Protein (6.2-8.2) g/dL Albumin (3.8-4.9) g/dL 07/20/22 07/21/22 07/21/22 Range/Units 23:46 05:26 05:39 WBC 10.83 H (4.50-10.00) X 10*3/uL RDW 14.7 H (11.5-14.5) % Immature Gran # 0.18 H (0.00-0.04) X 10*3/uL Neutrophils # 9.43 H (1.80-7.70) X 10*3/uL Lymphocytes # 0.81 L (0.90-5.00) X 10*3/uL Eosinophils # 0 L (0.04-0.35) X 10*3/uL Sodium (135-145) mmol/L Anion Gap (10.00-18.00) mmol/L BUN/Creatinine Ratio (12.00-20.00) Ratio Glucose (70-110) mg/dL POC Glucose (mg/dL) 362 H 361 H (70-110) mg/dL Hemoglobin A1c (0.0-6.0) % Total Bilirubin (0.30-1.20) mg/dL AST (13-35) U/L Total Protein (6.2-8.2) g/dL Albumin (3.8-4.9) g/dL 07/21/22 07/21/22 Range/Units 05:39 11:51 WBC (4.50-10.00) X 10*3/uL RDW (11.5-14.5) % Immature Gran # (0.00-0.04) X 10*3/uL Neutrophils # (1.80-7.70) X 10*3/uL Lymphocytes # (0.90-5.00) X 10*3/uL Eosinophils # (0.04-0.35) X 10*3/uL Sodium 134 L (135-145) mmol/L Anion Gap 8.30 L (10.00-18.00) mmol/L BUN/Creatinine Ratio 21.91 H (12.00-20.00) Ratio Glucose 337 H (70-110) mg/dL POC Glucose (mg/dL) 374 H (70-110) mg/dL Hemoglobin A1c (0.0-6.0) % Total Bilirubin 0.20 L (0.30-1.20) mg/dL AST 10 L (13-35) U/L Total Protein 5.8 L (6.2-8.2) g/dL Albumin 3.7 L (3.8-4.9) g/dL Microbiology - Last 24 Hours (Table) 07/19/22 16:15 Blood Culture - Preliminary Blood 07/19/22 16:00 Blood Culture - Preliminary Blood Assessment and Plan Plan: Acute exacerbation of chronic obstructive pulmonary disease Acute purulent bronchitis Acute hypoxic respiratory failure Previous history of left lung squama cell carcinoma status post left upper lobectomy in 2018 Underlying history of hypertension Underlying history of hyperlipidemia Underlying history of insulin-dependent diabetes mellitus Underlying history of tobacco abuse Underlying history of coronary artery disease with previous history of myocardial infarction and angioplasty and stent placement in the LAD Underlying history of gastroesophageal reflux disease Underlying history of fibromyalgia Underlying history of restless leg syndrome At this time patient was seen and examined in the emergency room She will be admitted to medical floor she was started on IV Solu-Medrol and inhaled steroids and inhaled bronchodilators She was also started on IV antibiotic ceftriaxone and Zithromax Home medications reviewed and reordered Pulmonary consultation was requested Will follow
[2022-07-21 16:56] LABS: Glucose,Whole Blood 329 mg/dL (70-110)
[2022-07-21 20:46] LABS: Glucose,Whole Blood 418 mg/dL (70-110)
[2022-07-21] MEDS: ALPRAZolam 0.25 MG TAB PO PRN (21:29)
[2022-07-21] MEDS: DOXYCYCLINE 100 MG CAP PO SCH (21:30)
[2022-07-21] MEDS: ATORVASTATIN 40 MG TAB PO SCH (21:30)
[2022-07-21] MEDS: traZODone HCL 50 MG TAB PO SCH (21:30)
[2022-07-22] MEDS: methylPREDNISolone SOD SUCCI 125 MG/2 ML VIAL IV SCH ×5 (00:05→23:56)
[2022-07-22 06:02] LABS: Glucose,Whole Blood 288 mg/dL (70-110)
[2022-07-22] MEDS: INSULIN DETEMIR (LEVEMIR) 100 UNIT/ML SYR SQ SCH (06:52)
[2022-07-22] MEDS: INSULIN ASPART (NovoLOG) 100 UNIT/ML VIAL SQ SCH ×4 (06:52→20:34)
[2022-07-22] MEDS: HEPARIN SODIUM,PORCINE/PF 5,000 UNIT/0.5 ML SYRINGE SQ SCH ×2 (07:54→20:33)
[2022-07-22] MEDS: METOPROLOL SUCCINATE (ER) 25 MG TAB.ER.24H PO SCH (07:54)
[2022-07-22] MEDS: PANTOPRAZOLE 40 MG TABLET PO SCH (07:54)
[2022-07-22] MEDS: ISOSORBIDE MONONITRATE ER 30 MG TAB.ER.24H PO SCH (07:55)
[2022-07-22] MEDS: DOXYCYCLINE 100 MG CAP PO SCH ×2 (07:55→20:32)
[2022-07-22] MEDS: ASPIRIN 81 MG PO SCH (07:55)
[2022-07-22] MEDS: CLOPIDOGREL 75 MG TAB PO SCH (07:55)
[2022-07-22] MEDS: lisinopriL 5 MG TAB PO SCH (07:55)
[2022-07-22] MEDS: IPRATROPIUM-ALBUTEROL 3 ML NEB INHALATION SCH ×4 (08:33→20:46)
[2022-07-22] MEDS: SYMBICORT 160-4.5 MCG INHALER INHALATION SCH ×2 (08:33→20:46)
--- NOTE | 2022-07-22 10:08 | P.PN ---
Subjective Progress Note Date: 07/22/22 Neeru Dow, is a 71-year-old female who presented to [facility] emergency room with a chief complaint of worsening shortness of breath She was evaluated in the emergency room vital examination on presentation revealed a temperature of 97.4 pulse 104 respiration 28 blood pressure 102/51 pulse ox 94% on room air Laboratory data revealed a white blood count of 9.8 hemoglobin 14.0 platelet count 237 d-dimer 0.58 BUN 14 creatinine 0.51 troponin level less than 0.012 lactic acid on presentation 2.5 COVID-19, influenza, and RSV titers were negative. Testing in the emergency room revealed EKG done in the emergency room revealed sinus rhythm with right atrial enlargement and left atrial enlargement. Chest x-ray done in the emergency room revealed evidence of COPD with left hemidiap hragm elevation and chronic density in the left perihilar region. No acute process. Patient was admitted to medical floor for further evaluation and treatment, preliminary diagnosis is acute exacerbation of COPD, patient was started on IV Solu-Medrol and inhaled bronchodilators pulmonary consultation was requested Past medical history is significant for history of coronary artery disease, history of insulin-dependent diabetes mellitus, history of fibromyalgia, history of gastroesophageal reflux disease, history of degenerative disc disease with chronic back pain, history of restless leg syndrome, history of peptic ulcer disease On review of systems patient is alert and oriented 3 in no apparent distress there is no fever or chills no headache or dizziness no chest pain she is complaining of cough and shortness of breath there is no nausea or vomiting no abdominal pain no diarrhea no blood in the stools no burning with urination no frequency or urgency and no hematuria On 11/20/2022 patient is alert and oriented 3. Patient still having coughing and shortness of breath. Patient reports slightly improved. Patient remains on Solu-Medrol azithromycin and ceftriaxone. Pulmonary services are following. Patient denies chest pain. Patient denies nausea vomiting or diarrhea. Patient denies any urinary burning or frequency. Current vital signs temp 97.5, heart rate 85, respiratory rate 17, blood pressure 128/66 On 11/21/2022 patient was seen and examined on the medical floor, she is alert and oriented 3 in no apparent distress, she had minimal improvement since yesterday, there is no fever or chills no headache or dizziness no chest pain she is complaining of cough and shortness of breath there is no nausea or vomiting no abdominal pain no diarrhea no blood in the stools no burning with urination no frequency or urgency and no hematuria. Objective - Vital Signs Vital signs: Vital Signs Temp 97.9 F 07/22/22 06:51 Pulse 92 07/22/22 08:46 Resp 16 07/22/22 06:51 BP 123/71 07/22/22 06:51 Pulse Ox 96 07/22/22 08:33 FiO2 Intake & Output 07/21/22 07/22/22 07/22/22 18:59 06:59 18:59 Weight 45.359 kg Other: Voiding Method Toilet # Voids 1 2 - Exam In general patient is alert and oriented x 3 in no distress HEENT head normocephalic and atraumatic Neck is supple no JVD no goiter no lymphadenopathy no carotid bruit Chest examination reveals crackles in both bases with prolonged expiratory phase with severe wheezing Cardiac exam reveals regular heart sounds S1 and S2 no gallops no murmurs Abdomen is soft nontender no organomegaly with normal bowel sounds Extremity exam reveals no edema no cyanosis or clubbing Neurological examination reveals no gross focal deficits - Labs CBC & Chem 7: 07/21/22 05:39 07/21/22 05:39 Labs: Abnormal Lab Results - Last 24 Hours (Table) 07/21/22 07/21/22 07/21/22 Range/Units 11:51 16:54 20:41 POC Glucose (mg/dL) 374 H 329 H 418 H (70-110) mg/dL 07/22/22 Range/Units 06:00 POC Glucose (mg/dL) 288 H (70-110) mg/dL Microbiology - Last 24 Hours (Table) 07/19/22 16:15 Blood Culture - Preliminary Blood 07/19/22 16:00 Blood Culture - Preliminary Blood Assessment and Plan Plan: Acute exacerbation of chronic obstructive pulmonary disease Acute purulent bronchitis Acute hypoxic respiratory failure Previous history of left lung squama cell carcinoma status post left upper lobectomy in 2018 Underlying history of hypertension Underlying history of hyperlipidemia Underlying history of insulin-dependent diabetes mellitus Underlying history of tobacco abuse Underlying history of coronary artery disease with previous history of myocardial infarction and angioplasty and stent placement in the LAD Underlying history of gastroesophageal reflux disease Underlying history of fibromyalgia Underlying history of restless leg syndrome At this time patient was seen and examined in the emergency room She will be admitted to medical floor she was started on IV Solu-Medrol and inhaled steroids and inhaled bronchodilators She was also started on IV antibiotic ceftriaxone and Zithromax Home medications reviewed and reordered Pulmonary consultation was requested Will follow
[2022-07-22 10:12] LABS: Basophils # (A) 0.01 X 10*3/uL (0.00-0.10); Basophils % (A) 0.1 %; Eosinophils # (A) 0 X 10*3/uL (0.04-0.35); Eosinophils % (A) 0 %; Immature Grans, Automated 1.5 %; Lymphocytes # (A) 0.65 X 10*3/uL (0.90-5.00); Lymphocytes % (A) 6.3 %; MCHC 32.5 g/dL (32.0-37.0); Mean Platelet Volume 11.6 fL (9.5-12.2); Monocytes # (A) 0.44 X 10*3/uL (0.20-1.00); Monocytes % (A) 4.2 %; NRBC Per 100 WBC 0 /100 WBCS (0.0-0.0); Neutrophils # (A) 9.12 X 10*3/uL (1.80-7.70); Neutrophils % (A) 87.9 %; Platelet Count 242 X 10*3/uL (140-440); RBC 4.65 X 10*6/uL (4.10-5.20); RDW 14.7 % (11.5-14.5); WBC 10.38 X 10*3/uL (4.50-10.00)
[2022-07-22 10:21] LABS: ALT 16 U/L (8-44); AST 10 U/L (13-35); African American GFR (CKD) 110.4 (60.0-200.0); Albumin 3.7 g/dL (3.8-4.9); Albumin/Globulin Ratio 1.71 (1.60-3.17); Alkaline Phosphatase 120 U/L (41-126); BUN/Creat Ratio 34.57 Ratio (12.00-20.00); Blood Urea Nitrogen 17.7 mg/dL (9.0-27.0); Calcium 9.4 mg/dL (8.7-10.3); Carbon Dioxide 27.6 mmol/L (20.0-27.5); Chloride 101 mmol/L (96-109); Globulin 2.2 g/dL (1.6-3.3); Glucose 291 mg/dL (70-110); Non-African American GFR(CKD) 95.3 (60.0-200.0); Potassium 4.7 mmol/L (3.5-5.5); Sodium 139 mmol/L (135-145); Total Bilirubin <0.15 mg/dL (0.30-1.20); Total Protein 5.9 g/dL (6.2-8.2)
[2022-07-22] MEDS: guaiFENesin-DM 100-10MG/5ML 10 ML CUP PO PRN (11:03)
[2022-07-22 11:28] LABS: Glucose,Whole Blood 452 mg/dL (70-110)
--- NOTE | 2022-07-22 12:58 | P.PN ---
Subjective Progress Note Date: 07/22/22 I'm seeing this patient in new consultation today 07/20/2022 for acute COPD exacerbation. Patient is a 71-year-old white female with past medical history significant for COPD, squamous cell lung cancer status post left upper lobectomy in 2018, coronary artery disease with previous WI and stenting of LAD, hypertension, hyperlipidemia, insulin-dependent diabetes mellitus, diverticulitis with previous bowel resection, restless leg syndrome, fibromyalgia, and is in ex-smoker with a [id number] history. Patient follows with Dr. Bebo Farrell in the outpatient setting for management of her pulmonary issues. She is routinely on a combination of Combivent and Symbicort. Yesterday afternoon, the patient presented to the emergency room with a chief complaint of shortness of breath and associated nonproductive cough. Patient also reports some nonradiating chest pain only with coughing. Denies fevers. She denies any recent sick contacts. Patient is currently in the emergency room, waiting for a bed on the general medical floor. She is sitting up on the stretcher, on 2 L nasal cannula, in no acute distress. SPO2 at 95%. Chest x- ray on arrival showed no acute cardiopulmonary process. There was a chronic left hemidiaphragm, and some suspected post surgical changes in the left perihilar region most likely from her previous lobectomy. No focal consolidation or evidence of pneumonia. CBC was unremarkable. BMP on arrival showed a sodium 134, potassium 4.8, chloride 102, serum CO2 20, BUN 14, creatinine 0.51, glucose was elevated at 328. Troponins negative 1. ECG on arrival showed normal sinus rhythm without obvious acute ischemic changes. Patient was negative for COVID- 19, RSV, influenza. Her lungs are quite wheezy on auscultation. Patient is currently on a combination of bronchodilators and Solu-Medrol. Patient is being empirically covered on a combination of Rocephin and Zithromax. Afebrile. Vital signs are stable. The patient is seen today 07/21/2022 in follow-up on the regular medical floor. She is currently sitting up in bed. Awake and alert in no acute distress. Maintaining O2 saturations in the 90s on 2 L/m per nasal cannula. She still has a loose congested cough. Still with some bronchospasm and wheezing. Blood cultures are pending. White count 10.8. Hemoglobin 12.1. Platelets 251. Sodium 134. Potassium 4.2. Bicarb 24. BUN 13. Creatinine 0.8. Glucose 337. AST 10. ALT 14. Pro calcitonin was 0.05. She is currently on ceftriaxone and azithromycin. Remains on DuoNeb inhalations, Symbicort, IV Solu-Medrol. Heparin for DVT prophylaxis. The patient is seen today 07/22/2022 in follow-up on the regular medical floor. She is awake and alert in no acute distress. Sitting up at the bedside. Continues with a loose congested cough. Still with some dyspnea on exertion. She is maintaining O2 saturation in the mid 90s on 2 L/m per nasal cannula. Afebrile. Hemodynamically stable. Blood cultures pending. White count 10.3. Hemoglobin 13.0. Platelets 242. Sodium 139. Potassium 4.7. Bicarb 27. BUN 17. Creatinine 0.5. She is currently on doxycycline empirically. Remains on bronchodilators and IV Solu-Medrol. Heparin for DVT prophylaxis. Objective - Vital Signs Vital signs: Vital Signs Temp 97.9 F 07/22/22 06:51 Pulse 92 07/22/22 08:46 Resp 16 07/22/22 06:51 BP 123/71 07/22/22 06:51 Pulse Ox 96 07/22/22 08:33 FiO2 Intake & Output 07/21/22 07/22/22 07/22/22 18:59 06:59 18:59 Weight 45.359 kg Other: Voiding Method Toilet # Voids 1 2 - Exam GENERAL EXAM: Alert, 71-year-old female, on 2 L nasal cannula, comfortable in no apparent distress. HEAD: Normocephalic. EYES: Normal reaction of pupils, equal size. NOSE: Clear with pink turbinates. THROAT: No erythema or exudates. NECK: No masses, no JVD. CHEST: No chest wall deformity. LUNGS: Equal air entry with bilateral end expiratory wheeze. CVS: S1 and S2 normal with no audible murmur, regular rhythm. ABDOMEN: No hepatosplenomegaly, normal bowel sounds, no guarding or rigidity. SPINE: No scoliosis or deformity SKIN: No rashes CENTRAL NERVOUS SYSTEM: No focal deficits, tone is normal in all 4 extremities. EXTREMITIES: There is no peripheral edema. No clubbing, no cyanosis. Peripheral pulses are intact. - Labs CBC & Chem 7: 07/22/22 04:32 07/22/22 04:32 Labs: Abnormal Lab Results - Last 24 Hours (Table) 07/21/22 07/21/22 07/22/22 Range/Units 16:54 20:41 04:32 WBC 10.38 H (4.50-10.00) X 10*3/uL RDW 14.7 H (11.5-14.5) % Immature Gran # 0.16 H (0.00-0.04) X 10*3/uL Neutrophils # 9.12 H (1.80-7.70) X 10*3/uL Lymphocytes # 0.65 L (0.90-5.00) X 10*3/uL Eosinophils # 0 L (0.04-0.35) X 10*3/uL Carbon Dioxide (20.0-27.5) mmol/L Anion Gap (10.00-18.00) mmol/L Creatinine (0.6-1.5) mg/dL BUN/Creatinine Ratio (12.00-20.00) Ratio Glucose (70-110) mg/dL POC Glucose (mg/dL) 329 H 418 H (70-110) mg/dL Total Bilirubin (0.30-1.20) mg/dL AST (13-35) U/L Total Protein (6.2-8.2) g/dL Albumin (3.8-4.9) g/dL 07/22/22 07/22/22 07/22/22 Range/Units 04:32 06:00 11:27 WBC (4.50-10.00) X 10*3/uL RDW (11.5-14.5) % Immature Gran # (0.00-0.04) X 10*3/uL Neutrophils # (1.80-7.70) X 10*3/uL Lymphocytes # (0.90-5.00) X 10*3/uL Eosinophils # (0.04-0.35) X 10*3/uL Carbon Dioxide 27.6 H (20.0-27.5) mmol/L Anion Gap 9.90 L (10.00-18.00) mmol/L Creatinine 0.5 L (0.6-1.5) mg/dL BUN/Creatinine Ratio 34.57 H (12.00-20.00) Ratio Glucose 291 H (70-110) mg/dL POC Glucose (mg/dL) 288 H 452 H (70-110) mg/dL Total Bilirubin <0.15 L (0.30-1.20) mg/dL AST 10 L (13-35) U/L Total Protein 5.9 L (6.2-8.2) g/dL Albumin 3.7 L (3.8-4.9) g/dL Microbiology - Last 24 Hours (Table) 07/19/22 16:15 Blood Culture - Preliminary Blood 07/19/22 16:00 Blood Culture - Preliminary Blood Assessment and Plan Assessment: Acute exacerbation of COPD, possibly related to acute bronchitis. No focal consolidation or pneumonia found on chest x-ray. Negative for COVID-19, influenza, RSV. Pro calcitonin negative at 0.05. Acute hypoxic respiratory failure secondary to above, currently on 2 L nasal cannula. History of left lung squamous cell carcinoma status post left upper lobectomy in 2018 Ex-smoker, with a [id number] history Coronary artery disease with previous WI and stenting of the LAD Hypertension Hyperlipidemia Insulin-dependent diabetes mellitus type 2 Diverticulitis with previous history of bowel resection History of frequent UTIs Fibromyalgia Restless leg syndrome Plan: The patient was seen and evaluated Labs and medications reviewed Continue doxycycline empirically Continue bronchodilators and steroids Not quite back to her baseline We'll continue to follow I have personally seen and examined the patient, performed the documentation and the assessment and plan as written. Number of minutes spent on the visit: 10.
[2022-07-22 13:41] LABS: Glucose,Whole Blood 427 mg/dL (70-110)
[2022-07-22 16:31] LABS: Glucose,Whole Blood 238 mg/dL (70-110)
[2022-07-22 20:28] LABS: Glucose,Whole Blood 400 mg/dL (70-110)
[2022-07-22] MEDS: traZODone HCL 50 MG TAB PO SCH (20:32)
[2022-07-22] MEDS: ATORVASTATIN 40 MG TAB PO SCH (20:32)
[2022-07-22] MEDS: HYDROcodone/APAP 10-325MG 1 EACH TAB PO PRN (20:32)
[2022-07-22] MEDS: ALPRAZolam 0.25 MG TAB PO PRN (20:33)
[2022-07-22] MEDS: MELATONIN 3 MG TABLET PO PRN (20:33)
[2022-07-23] MEDS: methylPREDNISolone SOD SUCCI 125 MG/2 ML VIAL IV SCH ×3 (05:40→16:42)
[2022-07-23 05:48] LABS: Glucose,Whole Blood 202 mg/dL (70-110)
[2022-07-23] MEDS: INSULIN DETEMIR (LEVEMIR) 100 UNIT/ML SYR SQ SCH (06:13)
[2022-07-23] MEDS: INSULIN ASPART (NovoLOG) 100 UNIT/ML VIAL SQ SCH ×4 (06:13→21:18)
[2022-07-23] MEDS: ASPIRIN 81 MG PO SCH (08:00)
[2022-07-23] MEDS: CLOPIDOGREL 75 MG TAB PO SCH (08:00)
[2022-07-23] MEDS: METOPROLOL SUCCINATE (ER) 25 MG TAB.ER.24H PO SCH (08:00)
[2022-07-23] MEDS: PANTOPRAZOLE 40 MG TABLET PO SCH (08:00)
[2022-07-23] MEDS: ISOSORBIDE MONONITRATE ER 30 MG TAB.ER.24H PO SCH (08:00)
[2022-07-23] MEDS: lisinopriL 5 MG TAB PO SCH (08:00)
[2022-07-23] MEDS: HEPARIN SODIUM,PORCINE/PF 5,000 UNIT/0.5 ML SYRINGE SQ SCH ×2 (08:00→21:18)
[2022-07-23] MEDS: DOXYCYCLINE 100 MG CAP PO SCH ×2 (08:01→21:19)
[2022-07-23] MEDS: SYMBICORT 160-4.5 MCG INHALER INHALATION SCH ×2 (09:06→22:13)
[2022-07-23] MEDS: IPRATROPIUM-ALBUTEROL 3 ML NEB INHALATION SCH ×4 (09:07→22:13)
[2022-07-23 10:03] LABS: ALT 19 U/L (8-44); AST 12 U/L (13-35); African American GFR (CKD) 111.3 (60.0-200.0); Albumin 3.6 g/dL (3.8-4.9); Albumin/Globulin Ratio 1.57 (1.60-3.17); Alkaline Phosphatase 108 U/L (41-126); Calcium 9.6 mg/dL (8.7-10.3); Chloride 102 mmol/L (96-109); Globulin 2.3 g/dL (1.6-3.3); Glucose 225 mg/dL (70-110); Potassium 4.6 mmol/L (3.5-5.5); Sodium 138 mmol/L (135-145); Total Bilirubin <0.15 mg/dL (0.30-1.20); Total Protein 5.9 g/dL (6.2-8.2)
[2022-07-23 10:04] LABS: Basophils # (A) 0.02 X 10*3/uL (0.00-0.10); Basophils % (A) 0.2 %; Eosinophils # (A) 0.01 X 10*3/uL (0.04-0.35); Eosinophils % (A) 0.1 %; HCT 40.8 % (37.2-46.3); HGB 13.2 g/dL (12.0-15.0); Immature Grans, Automated 1.7 %; Lymphocytes # (A) 1.08 X 10*3/uL (0.90-5.00); Lymphocytes % (A) 12.5 %; MCH 27.7 pg (27.0-32.0); MCHC 32.4 g/dL (32.0-37.0); MCV 85.5 fL (80.0-97.0); Monocytes # (A) 0.41 X 10*3/uL (0.20-1.00); Monocytes % (A) 4.8 %; NRBC Per 100 WBC 0 /100 WBCS (0.0-0.0); Neutrophils # (A) 6.95 X 10*3/uL (1.80-7.70); Neutrophils % (A) 80.7 %; Platelet Count 265 X 10*3/uL (140-440); RBC 4.77 X 10*6/uL (4.10-5.20); RDW 14.5 % (11.5-14.5); WBC 8.62 X 10*3/uL (4.50-10.00)
--- NOTE | 2022-07-23 10:06 | P.PN ---
Subjective Progress Note Date: 07/23/22 Neeru Dow, is a 71-year-old female who presented to [facility] emergency room with a chief complaint of worsening shortness of breath She was evaluated in the emergency room vital examination on presentation revealed a temperature of 97.4 pulse 104 respiration 28 blood pressure 102/51 pulse ox 94% on room air Laboratory data revealed a white blood count of 9.8 hemoglobin 14.0 platelet count 237 d-dimer 0.58 BUN 14 creatinine 0.51 troponin level less than 0.012 lactic acid on presentation 2.5 COVID-19, influenza, and RSV titers were negative. Testing in the emergency room revealed EKG done in the emergency room revealed sinus rhythm with right atrial enlargement and left atrial enlargement. Chest x-ray done in the emergency room revealed evidence of COPD with left hemidiaph ragm elevation and chronic density in the left perihilar region. No acute process. Patient was admitted to medical floor for further evaluation and treatment, preliminary diagnosis is acute exacerbation of COPD, patient was started on IV Solu-Medrol and inhaled bronchodilators pulmonary consultation was requested Past medical history is significant for history of coronary artery disease, history of insulin-dependent diabetes mellitus, history of fibromyalgia, history of gastroesophageal reflux disease, history of degenerative disc disease with chronic back pain, history of restless leg syndrome, history of peptic ulcer disease On review of systems patient is alert and oriented 3 in no apparent distress there is no fever or chills no headache or dizziness no chest pain she is complaining of cough and shortness of breath there is no nausea or vomiting no abdominal pain no diarrhea no blood in the stools no burning with urination no frequency or urgency and no hematuria On 07/21/2022 patient is alert and oriented 3. Patient still having coughing and shortness of breath. Patient reports slightly improved. Patient remains on Solu-Medrol azithromycin and ceftriaxone. Pulmonary services are following. Patient denies chest pain. Patient denies nausea vomiting or diarrhea. Patient denies any urinary burning or frequency. Current vital signs temp 97.5, heart rate 85, respiratory rate 17, blood pressure 128/66 On 07/22/2022 patient was seen and examined on the medical floor, she is alert and oriented 3 in no apparent distress, she had minimal improvement since yesterday, there is no fever or chills no headache or dizziness no chest pain she is complaining of cough and shortness of breath there is no nausea or vomiting no abdominal pain no diarrhea no blood in the stools no burning with urination no frequency or urgency and no hematuria. On 07/23/2022 patient is alert and oriented 3. Patient reports minimal improvement. Patient remains on doxycycline and Solu-Medrol. Pulmonary services are following. Current vital signs temp 97.6, heart rate 76, respirato ry rate 17, blood pressure 119/47 with a pulse ox 95% on 2 L Objective - Vital Signs Vital signs: Vital Signs Temp 97.6 F 07/23/22 07:22 Pulse 100 07/23/22 09:18 Resp 17 07/23/22 07:22 BP 119/47 07/23/22 07:22 Pulse Ox 99 07/23/22 09:49 FiO2 Intake & Output 07/22/22 07/23/22 07/23/22 18:59 06:59 18:59 Intake Total 1080 Balance 1080 Intake: Oral 1080 Other: Voiding Method Toilet # Voids 3 2 - Exam In general patient is alert and oriented x 3 in no distress HEENT head normocephalic and atraumatic Neck is supple no JVD no goiter no lymphadenopathy no carotid bruit Chest examination reveals a crackles in both bases with prolonged expiratory phase with severe wheezing Cardiac exam reveals regular heart sounds S1 and S2 no gallops no murmurs Abdomen is soft nontender no organomegaly with normal bowel sounds Extremity exam reveals no edema no cyanosis or clubbing Neurological examination reveals no gross focal deficits - Labs CBC & Chem 7: 07/23/22 06:11 07/23/22 06:11 Labs: Abnormal Lab Results - Last 24 Hours (Table) 07/22/22 07/22/22 07/22/22 Range/Units 04:32 04:32 11:27 WBC 10.38 H (4.50-10.00) X 10*3/uL RDW 14.7 H (11.5-14.5) % Immature Gran # 0.16 H (0.00-0.04) X 10*3/uL Neutrophils # 9.12 H (1.80-7.70) X 10*3/uL Lymphocytes # 0.65 L (0.90-5.00) X 10*3/uL Eosinophils # 0 L (0.04-0.35) X 10*3/uL Carbon Dioxide 27.6 H (20.0-27.5) mmol/L Anion Gap 9.90 L (10.00-18.00) mmol/L Creatinine 0.5 L (0.6-1.5) mg/dL BUN/Creatinine Ratio 34.57 H (12.00-20.00) Ratio Glucose 291 H (70-110) mg/dL POC Glucose (mg/dL) 452 H (70-110) mg/dL Total Bilirubin <0.15 L (0.30-1.20) mg/dL AST 10 L (13-35) U/L Total Protein 5.9 L (6.2-8.2) g/dL Albumin 3.7 L (3.8-4.9) g/dL Albumin/Globulin Ratio (1.60-3.17) g/dL 07/22/22 07/22/22 07/22/22 Range/Units 13:39 16:29 20:26 WBC (4.50-10.00) X 10*3/uL RDW (11.5-14.5) % Immature Gran # (0.00-0.04) X 10*3/uL Neutrophils # (1.80-7.70) X 10*3/uL Lymphocytes # (0.90-5.00) X 10*3/uL Eosinophils # (0.04-0.35) X 10*3/uL Carbon Dioxide (20.0-27.5) mmol/L Anion Gap (10.00-18.00) mmol/L Creatinine (0.6-1.5) mg/dL BUN/Creatinine Ratio (12.00-20.00) Ratio Glucose (70-110) mg/dL POC Glucose (mg/dL) 427 H 238 H 400 H (70-110) mg/dL Total Bilirubin (0.30-1.20) mg/dL AST (13-35) U/L Total Protein (6.2-8.2) g/dL Albumin (3.8-4.9) g/dL Albumin/Globulin Ratio (1.60-3.17) g/dL 07/23/22 07/23/22 07/23/22 Range/Units 05:46 06:11 06:11 WBC (4.50-10.00) X 10*3/uL RDW (11.5-14.5) % Immature Gran # 0.15 H (0.00-0.04) X 10*3/uL Neutrophils # (1.80-7.70) X 10*3/uL Lymphocytes # (0.90-5.00) X 10*3/uL Eosinophils # 0.01 L (0.04-0.35) X 10*3/uL Carbon Dioxide (20.0-27.5) mmol/L Anion Gap 9.00 L (10.00-18.00) mmol/L Creatinine 0.5 L (0.6-1.5) mg/dL BUN/Creatinine Ratio 40.00 H (12.00-20.00) Ratio Glucose 225 H (70-110) mg/dL POC Glucose (mg/dL) 202 H (70-110) mg/dL Total Bilirubin <0.15 L (0.30-1.20) mg/dL AST 12 L (13-35) U/L Total Protein 5.9 L (6.2-8.2) g/dL Albumin 3.6 L (3.8-4.9) g/dL Albumin/Globulin Ratio 1.57 L (1.60-3.17) g/dL Microbiology - Last 24 Hours (Table) 07/19/22 16:15 Blood Culture - Preliminary Blood 07/19/22 16:00 Blood Culture - Preliminary Blood Assessment and Plan Assessment: Acute exacerbation of chronic obstructive pulmonary disease Acute purulent bronchitis Acute hypoxic respiratory failure Previous history of left lung squama cell carcinoma status post left upper lobectomy in 2018 Underlying history of hypertension Underlying history of hyperlipidemia Underlying history of insulin-dependent diabetes mellitus Underlying history of tobacco abuse Underlying history of coronary artery disease with previous history of myocardial infarction and angioplasty and stent placement in the LAD Underlying history of gastroesophageal reflux disease Underlying history of fibromyalgia Underlying history of restless leg syndrome At this time patient was seen and examined in the emergency room She will be admitted to medical floor she was started on IV Solu-Medrol and inhaled steroids and inhaled bronchodilators Patient maintained on doxycycline Home medications reviewed and reordered Pulmonary consultation was requested Will follow
[2022-07-23] MEDS: guaiFENesin-DM 600/30MG 1 EACH TAB.ER.12H PO SCH ×2 (10:31→21:19)
[2022-07-23 11:30] LABS: Glucose,Whole Blood 321 mg/dL (70-110)
--- NOTE | 2022-07-23 11:39 | P.PN ---
Subjective Progress Note Date: 07/23/22 I'm seeing this patient in new consultation today 07/20/2022 for acute COPD exacerbation. Patient is a 71-year-old white female with past medical history significant for COPD, squamous cell lung cancer status post left upper lobectomy in 2018, coronary artery disease with previous [place] and stenting of LAD, hypertension, hyperlipidemia, insulin-dependent diabetes mellitus, diverticulitis with previous bowel resection, restless leg syndrome, fibromyalgia, and is in ex-smoker with a [id number] history. Patient follows with Dr. Bebo Farrell in the outpatient setting for management of her pulmonary issues. She is routinely on a combination of Combivent and Symbicort. Yesterday afternoon, the patient presented to the emergency room with a chief complaint of shortness of breath and associated nonproductive cough. Patient also reports some nonradiating chest pain only with coughing. Denies fevers. She denies any recent sick contacts. Patient is currently in the emergency room, waiting for a bed on the general medical floor. She is sitting up on the stretcher, on 2 L nasal cannula, in no acute distress. SPO2 at 95%. Chest x- ray on arrival showed no acute cardiopulmonary process. There was a chronic left hemidiaphragm, and some suspected post surgical changes in the left perihilar region most likely from her previous lobectomy. No focal consolidation or evidence of pneumonia. CBC was unremarkable. BMP on arrival showed a sodium 134, potassium 4.8, chloride 102, serum CO2 20, BUN 14, creatinine 0.51, glucose was elevated at 328. Troponins negative 1. ECG on arrival showed normal sinus rhythm without obvious acute ischemic changes. Patient was negative for COVID- 19, RSV, influenza. Her lungs are quite wheezy on auscultation. Patient is currently on a combination of bronchodilators and Solu-Medrol. Patient is being empirically covered on a combination of Rocephin and Zithromax. Afebrile. Vital signs are stable. The patient is seen today 07/21/2022 in follow-up on the regular medical floor. She is currently sitting up in bed. Awake and alert in no acute distress. Maintaining O2 saturations in the 90s on 2 L/m per nasal cannula. She still has a loose congested cough. Still with some bronchospasm and wheezing. Blood cultures are pending. White count 10.8. Hemoglobin 12.1. Platelets 251. Sodium 134. Potassium 4.2. Bicarb 24. BUN 13. Creatinine 0.8. Glucose 337. AST 10. ALT 14. Pro calcitonin was 0.05. She is currently on ceftriaxone and azithromycin. Remains on DuoNeb inhalations, Symbicort, IV Solu-Medrol. Heparin for DVT prophylaxis. The patient is seen today 07/22/2022 in follow-up on the regular medical floor. She is awake and alert in no acute distress. Sitting up at the bedside. Continues with a loose congested cough. Still with some dyspnea on exertion. She is maintaining O2 saturation in the mid 90s on 2 L/m per nasal cannula. Afebrile. Hemodynamically stable. Blood cultures pending. White count 10.3. Hemoglobin 13.0. Platelets 242. Sodium 139. Potassium 4.7. Bicarb 27. BUN 17. Creatinine 0.5. She is currently on doxycycline empirically. Remains on bronchodilators and IV Solu-Medrol. Heparin for DVT prophylaxis. The patient is seen today 07/23/2022 in follow-up on the regular medical floor. She is currently resting in bed. Awake and alert in no acute distress. Not feeling much improvement today compared to yesterday. Unable to expectorate mucus. Still dyspneic with conversation. Dyspneic with minimal exertion. Still wheezing. She is continued on DuoNeb inhalations, Symbicort, IV Solu-Medrol. Antibiotics in the form of doxycycline. Heparin per for DVT prophylaxis. White count 8.6. Hemoglobin 13.2. Platelets 265. Sodium 138. Potassium 4.6. BUN 20. Creatinine 0.5. Glucose 225. AST 12. ALT 19. Objective - Vital Signs Vital signs: Vital Signs Temp 97.6 F 07/23/22 07:22 Pulse 100 07/23/22 09:18 Resp 17 07/23/22 07:22 BP 119/47 07/23/22 07:22 Pulse Ox 99 07/23/22 09:49 FiO2 Intake & Output 07/22/22 07/23/22 07/23/22 18:59 06:59 18:59 Intake Total 1080 Balance 1080 Intake: Oral 1080 Other: Voiding Method Toilet # Voids 3 2 - Exam GENERAL EXAM: Alert, weak, fatigued 71-year-old female, on 2 L nasal cannula, comfortable in no apparent distress. HEAD: Normocephalic. EYES: Normal reaction of pupils, equal size. NOSE: Clear with pink turbinates. THROAT: No erythema or exudates. NECK: No masses, no JVD. CHEST: No chest wall deformity. LUNGS: Equal air entry with bilateral end expiratory wheeze. CVS: S1 and S2 normal with no audible murmur, regular rhythm. ABDOMEN: No hepatosplenomegaly, normal bowel sounds, no guarding or rigidity. SPINE: No scoliosis or deformity SKIN: No rashes CENTRAL NERVOUS SYSTEM: No focal deficits, tone is normal in all 4 extremities. EXTREMITIES: There is no peripheral edema. No clubbing, no cyanosis. Peripheral pulses are intact. - Labs CBC & Chem 7: 07/23/22 06:11 07/23/22 06:11 Labs: Abnormal Lab Results - Last 24 Hours (Table) 07/22/22 07/22/22 07/22/22 Range/Units 13:39 16:29 20:26 Immature Gran # (0.00-0.04) X 10*3/uL Eosinophils # (0.04-0.35) X 10*3/uL Anion Gap (10.00-18.00) mmol/L Creatinine (0.6-1.5) mg/dL BUN/Creatinine Ratio (12.00-20.00) Ratio Glucose (70-110) mg/dL POC Glucose (mg/dL) 427 H 238 H 400 H (70-110) mg/dL Total Bilirubin (0.30-1.20) mg/dL AST (13-35) U/L Total Protein (6.2-8.2) g/dL Albumin (3.8-4.9) g/dL Albumin/Globulin Ratio (1.60-3.17) g/dL 07/23/22 07/23/22 07/23/22 Range/Units 05:46 06:11 06:11 Immature Gran # 0.15 H (0.00-0.04) X 10*3/uL Eosinophils # 0.01 L (0.04-0.35) X 10*3/uL Anion Gap 9.00 L (10.00-18.00) mmol/L Creatinine 0.5 L (0.6-1.5) mg/dL BUN/Creatinine Ratio 40.00 H (12.00-20.00) Ratio Glucose 225 H (70-110) mg/dL POC Glucose (mg/dL) 202 H (70-110) mg/dL Total Bilirubin <0.15 L (0.30-1.20) mg/dL AST 12 L (13-35) U/L Total Protein 5.9 L (6.2-8.2) g/dL Albumin 3.6 L (3.8-4.9) g/dL Albumin/Globulin Ratio 1.57 L (1.60-3.17) g/dL 07/23/22 Range/Units 11:29 Immature Gran # (0.00-0.04) X 10*3/uL Eosinophils # (0.04-0.35) X 10*3/uL Anion Gap (10.00-18.00) mmol/L Creatinine (0.6-1.5) mg/dL BUN/Creatinine Ratio (12.00-20.00) Ratio Glucose (70-110) mg/dL POC Glucose (mg/dL) 321 H (70-110) mg/dL Total Bilirubin (0.30-1.20) mg/dL AST (13-35) U/L Total Protein (6.2-8.2) g/dL Albumin (3.8-4.9) g/dL Albumin/Globulin Ratio (1.60-3.17) g/dL Microbiology - Last 24 Hours (Table) 07/19/22 16:15 Blood Culture - Preliminary Blood 07/19/22 16:00 Blood Culture - Preliminary Blood Assessment and Plan Assessment: Acute exacerbation of COPD, possibly related to acute bronchitis. No focal cons olidation or pneumonia found on chest x-ray. Negative for COVID-19, influenza, RSV. Pro calcitonin negative at 0.05. Acute hypoxic respiratory failure secondary to above, currently on 2 L nasal can nula. History of left lung squamous cell carcinoma status post left upper lobectomy in 2018 Ex-smoker, with a [id number] history Coronary artery disease with previous [place] and stenting of the LAD Hypertension Hyperlipidemia Insulin-dependent diabetes mellitus type 2 Diverticulitis with previous history of bowel resection History of frequent UTIs Fibromyalgia Restless leg syndrome Plan: The patient was seen and evaluated Labs and medications reviewed Add Mucinex Continue bronchodilators, empiric antibiotics Increase her activity as tolerated We'll continue to follow I have personally seen and examined the patient, performed the documentation and the assessment and plan as written. Number of minutes spent on the visit: 10.
[2022-07-23 16:34] LABS: Glucose,Whole Blood 312 mg/dL (70-110)
[2022-07-23 20:34] LABS: Glucose,Whole Blood 305 mg/dL (70-110)
[2022-07-23] MEDS: ALPRAZolam 0.25 MG TAB PO PRN (21:17)
[2022-07-23] MEDS: HYDROcodone/APAP 10-325MG 1 EACH TAB PO PRN (21:17)
[2022-07-23] MEDS: MELATONIN 3 MG TABLET PO PRN (21:18)
[2022-07-23] MEDS: traZODone HCL 50 MG TAB PO SCH (21:18)
[2022-07-23] MEDS: ATORVASTATIN 40 MG TAB PO SCH (21:18)
[2022-07-24] MEDS: methylPREDNISolone SOD SUCCI 125 MG/2 ML VIAL IV SCH ×5 (00:18→23:50)
[2022-07-24 06:17] LABS: Glucose,Whole Blood 343 mg/dL (70-110)
[2022-07-24] MEDS: INSULIN DETEMIR (LEVEMIR) 100 UNIT/ML SYR SQ SCH (06:26)
[2022-07-24] MEDS: INSULIN ASPART (NovoLOG) 100 UNIT/ML VIAL SQ SCH ×4 (06:27→21:45)
[2022-07-24] MEDS: SYMBICORT 160-4.5 MCG INHALER INHALATION SCH ×2 (07:19→21:22)
[2022-07-24] MEDS: IPRATROPIUM-ALBUTEROL 3 ML NEB INHALATION SCH ×4 (07:19→21:22)
[2022-07-24] MEDS: HEPARIN SODIUM,PORCINE/PF 5,000 UNIT/0.5 ML SYRINGE SQ SCH ×2 (09:05→21:45)
[2022-07-24] MEDS: ASPIRIN 81 MG PO SCH (09:05)
[2022-07-24] MEDS: ISOSORBIDE MONONITRATE ER 30 MG TAB.ER.24H PO SCH (09:05)
[2022-07-24] MEDS: PANTOPRAZOLE 40 MG TABLET PO SCH (09:05)
[2022-07-24] MEDS: METOPROLOL SUCCINATE (ER) 25 MG TAB.ER.24H PO SCH (09:05)
[2022-07-24] MEDS: lisinopriL 5 MG TAB PO SCH (09:05)
[2022-07-24] MEDS: CLOPIDOGREL 75 MG TAB PO SCH (09:05)
[2022-07-24] MEDS: guaiFENesin-DM 600/30MG 1 EACH TAB.ER.12H PO SCH ×2 (09:05→21:43)
[2022-07-24] MEDS: DOXYCYCLINE 100 MG CAP PO SCH ×2 (10:33→21:44)
[2022-07-24 11:03] LABS: Basophils # (A) 0.01 X 10*3/uL (0.00-0.10); Basophils % (A) 0.1 %; Eosinophils # (A) 0 X 10*3/uL (0.04-0.35); Eosinophils % (A) 0 %; HCT 40.9 % (37.2-46.3); HGB 13.1 g/dL (12.0-15.0); Immature Grans, Automated 1.9 %; Lymphocytes # (A) 0.96 X 10*3/uL (0.90-5.00); Lymphocytes % (A) 10.6 %; MCH 27.5 pg (27.0-32.0); MCV 85.9 fL (80.0-97.0); Mean Platelet Volume 11.4 fL (9.5-12.2); Monocytes # (A) 0.38 X 10*3/uL (0.20-1.00); Monocytes % (A) 4.2 %; NRBC Per 100 WBC 0 /100 WBCS (0.0-0.0); Neutrophils # (A) 7.51 X 10*3/uL (1.80-7.70); Neutrophils % (A) 83.2 %; Platelet Count 281 X 10*3/uL (140-440); RBC 4.76 X 10*6/uL (4.10-5.20); RDW 14.4 % (11.5-14.5); WBC 9.03 X 10*3/uL (4.50-10.00)
[2022-07-24 11:11] LABS: Glucose,Whole Blood 454 mg/dL (70-110)
[2022-07-24 11:21] LABS: ALT 21 U/L (8-44); AST 11 U/L (13-35); African American GFR (CKD) 109.4 (60.0-200.0); Albumin 3.5 g/dL (3.8-4.9); Albumin/Globulin Ratio 1.81 (1.60-3.17); Alkaline Phosphatase 109 U/L (41-126); BUN/Creat Ratio 47.15 Ratio (12.00-20.00); Blood Urea Nitrogen 24.8 mg/dL (9.0-27.0); Carbon Dioxide 24.6 mmol/L (20.0-27.5); Chloride 100 mmol/L (96-109); Globulin 1.9 g/dL (1.6-3.3); Glucose 310 mg/dL (70-110); Non-African American GFR(CKD) 94.4 (60.0-200.0); Potassium 4.5 mmol/L (3.5-5.5); Sodium 136 mmol/L (135-145); Total Bilirubin <0.15 mg/dL (0.30-1.20); Total Protein 5.5 g/dL (6.2-8.2)
--- NOTE | 2022-07-24 15:48 | P.PN ---
Subjective Progress Note Date: 07/24/22 I'm seeing this patient in new consultation today 07/20/2022 for acute COPD exacerbation. Patient is a 71-year-old white female with past medical history significant for COPD, squamous cell lung cancer status post left upper lobectomy in 2018, coronary artery disease with previous UT and stenting of LAD, hypertension, hyperlipidemia, insulin-dependent diabetes mellitus, diverticulitis with previous bowel resection, restless leg syndrome, fibromyalgia, and is in ex-smoker with a [id number] history. Patient follows with Dr. Bebo Farrell in the outpatient setting for management of her pulmonary issues. She is routinely on a combination of Combivent and Symbicort. Yesterday afternoon, the patient presented to the emergency room with a chief complaint of shortness of breath and associated nonproductive cough. Patient also reports some nonradiating chest pain only with coughing. Denies fevers. She denies any recent sick contacts. Patient is currently in the emergency room, waiting for a bed on the general medical floor. She is sitting up on the stretcher, on 2 L nasal cannula, in no acute distress. SPO2 at 95%. Chest x- ray on arrival showed no acute cardiopulmonary process. There was a chronic left hemidiaphragm, and some suspected post surgical changes in the left perihilar region most likely from her previous lobectomy. No focal consolidation or evidence of pneumonia. CBC was unremarkable. BMP on arrival showed a sodium 134, potassium 4.8, chloride 102, serum CO2 20, BUN 14, creatinine 0.51, glucose was elevated at 328. Troponins negative 1. ECG on arrival showed normal sinus rhythm without obvious acute ischemic changes. Patient was negative for COVID- 19, RSV, influenza. Her lungs are quite wheezy on auscultation. Patient is currently on a combination of bronchodilators and Solu-Medrol. Patient is being empirically covered on a combination of Rocephin and Zithromax. Afebrile. Vital signs are stable. The patient is seen today 07/21/2022 in follow-up on the regular medical floor. She is currently sitting up in bed. Awake and alert in no acute distress. Maintaining O2 saturations in the 90s on 2 L/m per nasal cannula. She still has a loose congested cough. Still with some bronchospasm and wheezing. Blood cultures are pending. White count 10.8. Hemoglobin 12.1. Platelets 251. Sodium 134. Potassium 4.2. Bicarb 24. BUN 13. Creatinine 0.8. Glucose 337. AST 10. ALT 14. Pro calcitonin was 0.05. She is currently on ceftriaxone and azithromycin. Remains on DuoNeb inhalations, Symbicort, IV Solu-Medrol. Heparin for DVT prophylaxis. The patient is seen today 07/22/2022 in follow-up on the regular medical floor. She is awake and alert in no acute distress. Sitting up at the bedside. Continues with a loose congested cough. Still with some dyspnea on exertion. She is maintaining O2 saturation in the mid 90s on 2 L/m per nasal cannula. Afebrile. Hemodynamically stable. Blood cultures pending. White count 10.3. Hemoglobin 13.0. Platelets 242. Sodium 139. Potassium 4.7. Bicarb 27. BUN 17. Creatinine 0.5. She is currently on doxycycline empirically. Remains on bronchodilators and IV Solu-Medrol. Heparin for DVT prophylaxis. The patient is seen today 07/23/2022 in follow-up on the regular medical floor. She is currently resting in bed. Awake and alert in no acute distress. Not feeling much improvement today compared to yesterday. Unable to expectorate mucus. Still dyspneic with conversation. Dyspneic with minimal exertion. Still wheezing. She is continued on DuoNeb inhalations, Symbicort, IV Solu-Medrol. Antibiotics in the form of doxycycline. Heparin per for DVT prophylaxis. White count 8.6. Hemoglobin 13.2. Platelets 265. Sodium 138. Potassium 4.6. BUN 20. Creatinine 0.5. Glucose 225. AST 12. ALT 19. The patient is seen today 07/24/2022 in follow-up on the regular medical floor. She is currently resting comfortably in bed. Awake and alert in no acute distress. She has been slow to progress. Still with dyspnea on minimal exertion. She is maintaining O2 saturations in the 90s on 2 L/m per nasal cannula. No IV fluids. White count 9.0. Hemoglobin 13.1. Platelets 281. Sodium 136. Potassium 4.5. BUN 25. Creatinine 0.5. Glucose 310. She remains on DuoNeb inhalations, Symbicort, Mucinex, IV Solu-Medrol. Empiric antibiotics in the form of doxycycline. Heparin for DVT prophylaxis. Objective - Vital Signs Vital signs: Vital Signs Temp 97.2 F L 07/24/22 14:25 Pulse 78 07/24/22 14:25 Resp 18 07/24/22 14:25 BP 109/56 07/24/22 14:25 Pulse Ox 96 07/24/22 14:25 FiO2 Intake & Output 07/23/22 07/24/22 07/24/22 18:59 06:59 18:59 Intake Total 1080 Balance 1080 Intake: Oral 1080 Other: Voiding Method Toilet # Voids 3 1 - Exam GENERAL EXAM: Alert, pleasant 71-year-old female, on 2 L nasal cannula, comfortable in no apparent distress. HEAD: Normocephalic. EYES: Normal reaction of pupils, equal size. NOSE: Clear with pink turbinates. THROAT: No erythema or exudates. NECK: No masses, no JVD. CHEST: No chest wall deformity. LUNGS: Equal air entry with bilateral end expiratory wheeze. CVS: S1 and S2 normal with no audible murmur, regular rhythm. ABDOMEN: No hepatosplenomegaly, normal bowel sounds, no guarding or rigidity. SPINE: No scoliosis or deformity SKIN: No rashes CENTRAL NERVOUS SYSTEM: No focal deficits, tone is normal in all 4 extremities. EXTREMITIES: There is no peripheral edema. No clubbing, no cyanosis. Peripheral pulses are intact. - Labs CBC & Chem 7: 07/24/22 07:13 07/24/22 07:13 Labs: Abnormal Lab Results - Last 24 Hours (Table) 07/23/22 07/23/22 07/24/22 Range/Units 16:33 20:32 06:14 Immature Gran # (0.00-0.04) X 10*3/uL Eosinophils # (0.04-0.35) X 10*3/uL Creatinine (0.6-1.5) mg/dL BUN/Creatinine Ratio (12.00-20.00) Ratio Glucose (70-110) mg/dL POC Glucose (mg/dL) 312 H 305 H 343 H (70-110) mg/dL Total Bilirubin (0.30-1.20) mg/dL AST (13-35) U/L Total Protein (6.2-8.2) g/dL Albumin (3.8-4.9) g/dL 07/24/22 07/24/22 07/24/22 Range/Units 07:13 07:13 11:10 Immature Gran # 0.17 H (0.00-0.04) X 10*3/uL Eosinophils # 0 L (0.04-0.35) X 10*3/uL Creatinine 0.5 L (0.6-1.5) mg/dL BUN/Creatinine Ratio 47.15 H (12.00-20.00) Ratio Glucose 310 H (70-110) mg/dL POC Glucose (mg/dL) 454 H (70-110) mg/dL Total Bilirubin <0.15 L (0.30-1.20) mg/dL AST 11 L (13-35) U/L Total Protein 5.5 L (6.2-8.2) g/dL Albumin 3.5 L (3.8-4.9) g/dL Microbiology - Last 24 Hours (Table) 07/19/22 16:15 Blood Culture - Preliminary Blood 07/19/22 16:00 Blood Culture - Preliminary Blood Assessment and Plan Assessment: Acute exacerbation of COPD, possibly related to acute bronchitis. No focal consolidation or pneumonia found on chest x-ray. Negative for COVID-19, i nfluenza, RSV. Pro calcitonin negative at 0.05. Acute hypoxic respiratory failure secondary to above, currently on 2 L nasal cannula. History of left lung squamous cell carcinoma status post left upper lobectomy in 2018 Ex-smoker, with a [id number] history Coronary artery disease with previous UT and stenting of the LAD Hypertension Hyperlipidemia Insulin-dependent diabetes mellitus type 2 Diverticulitis with previous history of bowel resection History of frequent UTIs Fibromyalgia Restless leg syndrome Plan: The patient was seen and evaluated Labs and medications reviewed Continue the current treatment plan Increase her activity as tolerated Probable discharge in the next 24-48 hours We'll continue to follow I have personally seen and examined the patient, performed the documentation and the assessment and plan as written. Number of minutes spent on the visit: 10.
[2022-07-24 16:35] LABS: Glucose,Whole Blood 352 mg/dL (70-110)
--- NOTE | 2022-07-24 17:32 | P.PN ---
Subjective Progress Note Date: 07/24/22 Neeru Dow, is a 71-year-old female who presented to [facility] emergency room with a chief complaint of worsening shortness of breath She was evaluated in the emergency room vital examination on presentation revealed a temperature of 97.4 pulse 104 respiration 28 blood pressure 102/51 pulse ox 94% on room air Laboratory data revealed a white blood count of 9.8 hemoglobin 14.0 platelet count 237 d-dimer 0.58 BUN 14 creatinine 0.51 troponin level less than 0.012 lactic acid on presentation 2.5 COVID-19, influenza, and RSV titers were negative. Testing in the emergency room revealed EKG done in the emergency room revealed sinus rhythm with right atrial enlargement and left atrial enlargement. Chest x-ray done in the emergency room revealed evidence of COPD with left hemidiap hragm elevation and chronic density in the left perihilar region. No acute process. Patient was admitted to medical floor for further evaluation and treatment, preliminary diagnosis is acute exacerbation of COPD, patient was started on IV Solu-Medrol and inhaled bronchodilators pulmonary consultation was requested Past medical history is significant for history of coronary artery disease, history of insulin-dependent diabetes mellitus, history of fibromyalgia, history of gastroesophageal reflux disease, history of degenerative disc disease with chronic back pain, history of restless leg syndrome, history of peptic ulcer disease On review of systems patient is alert and oriented 3 in no apparent distress there is no fever or chills no headache or dizziness no chest pain she is complaining of cough and shortness of breath there is no nausea or vomiting no abdominal pain no diarrhea no blood in the stools no burning with urination no frequency or urgency and no hematuria On 11/20/2022 patient is alert and oriented 3. Patient still having coughing and shortness of breath. Patient reports slightly improved. Patient remains on Solu-Medrol azithromycin and ceftriaxone. Pulmonary services are following. Patient denies chest pain. Patient denies nausea vomiting or diarrhea. Patient denies any urinary burning or frequency. Current vital signs temp 97.5, heart rate 85, respiratory rate 17, blood pressure 128/66 On 11/21/2022 patient was seen and examined on the medical floor, she is alert and oriented 3 in no apparent distress, she had minimal improvement since yesterday, there is no fever or chills no headache or dizziness no chest pain she is complaining of cough and shortness of breath there is no nausea or vomiting no abdominal pain no diarrhea no blood in the stools no burning with urination no frequency or urgency and no hematuria. On 07/23/2022 patient is alert and oriented 3. Patient reports minimal improvement. Patient remains on doxycycline and Solu-Medrol. Pulmonary services are following. Current vital signs temp 97.6, heart rate 76, respiratory rate 17, blood pressure 119/47 with a pulse ox 95% on 2 L On 07/24/2022 patient was seen and examined on the medical floor she is still complaining of shortness of breath and wheezing and cough otherwise she denies any complaints there is no fever or chills no headache or dizziness no chest pain no nausea or vomiting no abdominal pain no diarrhea no blood in the stools no burning with urination no frequency or urgency and no hematuria Objective - Vital Signs Vital signs: Vital Signs Temp 97.2 F L 07/24/22 14:25 Pulse 82 07/24/22 15:55 Resp 18 07/24/22 14:25 BP 109/56 07/24/22 14:25 Pulse Ox 96 07/24/22 14:25 FiO2 Intake & Output 07/23/22 07/24/22 07/24/22 18:59 06:59 18:59 Intake Total 1080 Balance 1080 Intake: Oral 1080 Other: Voiding Method Toilet # Voids 3 1 - Exam In general patient is alert and oriented x 3 in no distress HEENT head normocephalic and atraumatic Neck is supple no JVD no goiter no lymphadenopathy no carotid bruit Chest examination reveals crackles in both bases with prolonged expiratory phase with severe wheezing Cardiac exam reveals regular heart sounds S1 and S2 no gallops no murmurs Abdomen is soft nontender no organomegaly with normal bowel sounds Extremity exam reveals no edema no cyanosis or clubbing Neurological examination reveals no gross focal deficits - Labs CBC & Chem 7: 07/24/22 07:13 07/24/22 07:13 Labs: Abnormal Lab Results - Last 24 Hours (Table) 07/23/22 07/24/22 07/24/22 Range/Units 20:32 06:14 07:13 Immature Gran # 0.17 H (0.00-0.04) X 10*3/uL Eosinophils # 0 L (0.04-0.35) X 10*3/uL Creatinine (0.6-1.5) mg/dL BUN/Creatinine Ratio (12.00-20.00) Ratio Glucose (70-110) mg/dL POC Glucose (mg/dL) 305 H 343 H (70-110) mg/dL Total Bilirubin (0.30-1.20) mg/dL AST (13-35) U/L Total Protein (6.2-8.2) g/dL Albumin (3.8-4.9) g/dL 07/24/22 07/24/22 07/24/22 Range/Units 07:13 11:10 16:31 Immature Gran # (0.00-0.04) X 10*3/uL Eosinophils # (0.04-0.35) X 10*3/uL Creatinine 0.5 L (0.6-1.5) mg/dL BUN/Creatinine Ratio 47.15 H (12.00-20.00) Ratio Glucose 310 H (70-110) mg/dL POC Glucose (mg/dL) 454 H 352 H (70-110) mg/dL Total Bilirubin <0.15 L (0.30-1.20) mg/dL AST 11 L (13-35) U/L Total Protein 5.5 L (6.2-8.2) g/dL Albumin 3.5 L (3.8-4.9) g/dL Microbiology - Last 24 Hours (Table) 07/19/22 16:15 Blood Culture - Preliminary Blood 07/19/22 16:00 Blood Culture - Preliminary Blood Assessment and Plan Plan: Acute exacerbation of chronic obstructive pulmonary disease Acute purulent bronchitis Acute hypoxic respiratory failure Previous history of left lung squama cell carcinoma status post left upper lobectomy in 2018 Underlying history of hypertension Underlying history of hyperlipidemia Underlying history of insulin-dependent diabetes mellitus Underlying history of tobacco abuse Underlying history of coronary artery disease with previous history of myocardial infarction and angioplasty and stent placement in the LAD Underlying history of gastroesophageal reflux disease Underlying history of fibromyalgia Underlying history of restless leg syndrome At this time patient was seen and examined in the emergency room She will be admitted to medical floor she was started on IV Solu-Medrol and inhaled steroids and inhaled bronchodilators She was also started on IV antibiotic ceftriaxone and Zithromax Home medications reviewed and reordered Pulmonary consultation was requested Will follow
[2022-07-24 20:42] LABS: Glucose,Whole Blood 291 mg/dL (70-110)
[2022-07-24] MEDS: HYDROcodone/APAP 10-325MG 1 EACH TAB PO PRN (21:43)
[2022-07-24] MEDS: ATORVASTATIN 40 MG TAB PO SCH (21:43)
[2022-07-24] MEDS: ALPRAZolam 0.25 MG TAB PO PRN (21:44)
[2022-07-24] MEDS: traZODone HCL 50 MG TAB PO SCH (21:44)
[2022-07-24] MEDS: MELATONIN 3 MG TABLET PO PRN (21:45)
[2022-07-25 06:14] LABS: Glucose,Whole Blood 349 mg/dL (70-110)
[2022-07-25] MEDS: INSULIN ASPART (NovoLOG) 100 UNIT/ML VIAL SQ SCH ×2 (06:58→12:14)
[2022-07-25] MEDS: methylPREDNISolone SOD SUCCI 125 MG/2 ML VIAL IV SCH ×2 (06:59→12:14)
[2022-07-25] MEDS: INSULIN DETEMIR (LEVEMIR) 100 UNIT/ML SYR SQ SCH (06:59)
[2022-07-25] MEDS: IPRATROPIUM-ALBUTEROL 3 ML NEB INHALATION SCH ×3 (07:58→15:30)
[2022-07-25] MEDS: SYMBICORT 160-4.5 MCG INHALER INHALATION SCH (07:59)
[2022-07-25] MEDS: ASPIRIN 81 MG PO SCH (08:44)
[2022-07-25] MEDS: CLOPIDOGREL 75 MG TAB PO SCH (08:44)
[2022-07-25] MEDS: PANTOPRAZOLE 40 MG TABLET PO SCH (08:44)
[2022-07-25] MEDS: ISOSORBIDE MONONITRATE ER 30 MG TAB.ER.24H PO SCH (08:44)
[2022-07-25] MEDS: lisinopriL 5 MG TAB PO SCH (08:44)
[2022-07-25] MEDS: METOPROLOL SUCCINATE (ER) 25 MG TAB.ER.24H PO SCH (08:44)
[2022-07-25] MEDS: guaiFENesin-DM 600/30MG 1 EACH TAB.ER.12H PO SCH (08:45)
[2022-07-25] MEDS: HEPARIN SODIUM,PORCINE/PF 5,000 UNIT/0.5 ML SYRINGE SQ SCH (08:45)
[2022-07-25] MEDS: DOXYCYCLINE 100 MG CAP PO SCH (08:45)
[2022-07-25 09:03] VITALS: RESP 18
[2022-07-25 11:29] LABS: Glucose,Whole Blood 262 mg/dL (70-110)
--- NOTE | 2022-07-25 12:36 | P.PN ---
Subjective Progress Note Date: 07/25/22 I'm seeing this patient in new consultation today 07/20/2022 for acute COPD exacerbation. Patient is a 71-year-old white female with past medical history significant for COPD, squamous cell lung cancer status post left upper lobectomy in 2018, coronary artery disease with previous NV and stenting of LAD, hypertension, hyperlipidemia, insulin-dependent diabetes mellitus, diverticulitis with previous bowel resection, restless leg syndrome, fibromyalgia, and is in ex-smoker with a [id number] history. Patient follows with Dr. Bebo Farrell in the outpatient setting for management of her pulmonary issues. She is routinely on a combination of Combivent and Symbicort. Yesterday afternoon, the patient presented to the emergency room with a chief complaint of shortness of breath and associated nonproductive cough. Patient also reports some nonradiating chest pain only with coughing. Denies fevers. She denies any recent sick contacts. Patient is currently in the emergency room, waiting for a bed on the general medical floor. She is sitting up on the stretcher, on 2 L nasal cannula, in no acute distress. SPO2 at 95%. Chest x- ray on arrival showed no acute cardiopulmonary process. There was a chronic left hemidiaphragm, and some suspected post surgical changes in the left perihilar region most likely from her previous lobectomy. No focal consolidation or evidence of pneumonia. CBC was unremarkable. BMP on arrival showed a sodium 134, potassium 4.8, chloride 102, serum CO2 20, BUN 14, creatinine 0.51, glucose was elevated at 328. Troponins negative 1. ECG on arrival showed normal sinus rhythm without obvious acute ischemic changes. Patient was negative for COVID- 19, RSV, influenza. Her lungs are quite wheezy on auscultation. Patient is currently on a combination of bronchodilators and Solu-Medrol. Patient is being empirically covered on a combination of Rocephin and Zithromax. Afebrile. Vital signs are stable. The patient is seen today 07/21/2022 in follow-up on the regular medical floor. She is currently sitting up in bed. Awake and alert in no acute distress. Maintaining O2 saturations in the 90s on 2 L/m per nasal cannula. She still has a loose congested cough. Still with some bronchospasm and wheezing. Blood cultures are pending. White count 10.8. Hemoglobin 12.1. Platelets 251. Sodium 134. Potassium 4.2. Bicarb 24. BUN 13. Creatinine 0.8. Glucose 337. AST 10. ALT 14. Pro calcitonin was 0.05. She is currently on ceftriaxone and azithromycin. Remains on DuoNeb inhalations, Symbicort, IV Solu-Medrol. Heparin for DVT prophylaxis. The patient is seen today 07/22/2022 in follow-up on the regular medical floor. She is awake and alert in no acute distress. Sitting up at the bedside. Continues with a loose congested cough. Still with some dyspnea on exertion. She is maintaining O2 saturation in the mid 90s on 2 L/m per nasal cannula. Afebrile. Hemodynamically stable. Blood cultures pending. White count 10.3. Hemoglobin 13.0. Platelets 242. Sodium 139. Potassium 4.7. Bicarb 27. BUN 17. Creatinine 0.5. She is currently on doxycycline empirically. Remains on bronchodilators and IV Solu-Medrol. Heparin for DVT prophylaxis. The patient is seen today 07/23/2022 in follow-up on the regular medical floor. She is currently resting in bed. Awake and alert in no acute distress. Not feeling much improvement today compared to yesterday. Unable to expectorate mucus. Still dyspneic with conversation. Dyspneic with minimal exertion. Still wheezing. She is continued on DuoNeb inhalations, Symbicort, IV Solu-Medrol. Antibiotics in the form of doxycycline. Heparin per for DVT prophylaxis. White count 8.6. Hemoglobin 13.2. Platelets 265. Sodium 138. Potassium 4.6. BUN 20. Creatinine 0.5. Glucose 225. AST 12. ALT 19. The patient is seen today 07/24/2022 in follow-up on the regular medical floor. She is currently resting comfortably in bed. Awake and alert in no acute distress. She has been slow to progress. Still with dyspnea on minimal exertion. She is maintaining O2 saturations in the 90s on 2 L/m per nasal cannula. No IV fluids. White count 9.0. Hemoglobin 13.1. Platelets 281. Sodium 136. Potassium 4.5. BUN 25. Creatinine 0.5. Glucose 310. She remains on DuoNeb inhalations, Symbicort, Mucinex, IV Solu-Medrol. Empiric antibiotics in the form of doxycycline. Heparin for DVT prophylaxis. The patient is seen today 07/25/2022 in follow-up on the regular medical floor. Awake and alert in no acute distress. Resting comfortably in bed. Feeling better today compared to yesterday. She is continued on DuoNeb inhalations, Symbicort, IV Solu-Medrol. Antibiotics in the form of doxycycline. Heparin for DVT prophylaxis. Blood sugar 262. Objective - Vital Signs Vital signs: Vital Signs Temp 97.4 F L 07/25/22 07:15 Pulse 80 07/25/22 11:54 Resp 18 07/25/22 08:40 BP 112/64 07/25/22 07:15 Pulse Ox 92 L 07/25/22 10:01 FiO2 Intake & Output 07/24/22 07/25/22 07/25/22 18:59 06:59 18:59 Other: Voiding Method Toilet # Voids 1 3 - Exam GENERAL EXAM: Alert, 71-year-old female, on 2 L nasal cannula, comfortable in no apparent distress. HEAD: Normocephalic. EYES: Normal reaction of pupils, equal size. NOSE: Clear with pink turbinates. THROAT: No erythema or exudates. NECK: No masses, no JVD. CHEST: No chest wall deformity. LUNGS: Equal air entry with bilateral end expiratory wheeze. CVS: S1 and S2 normal with no audible murmur, regular rhythm. ABDOMEN: No hepatosplenomegaly, normal bowel sounds, no guarding or rigidity. SPINE: No scoliosis or deformity SKIN: No rashes CENTRAL NERVOUS SYSTEM: No focal deficits, tone is normal in all 4 extremities. EXTREMITIES: There is no peripheral edema. No clubbing, no cyanosis. Peripheral pulses are intact. - Labs CBC & Chem 7: 07/24/22 07:13 07/24/22 07:13 Labs: Abnormal Lab Results - Last 24 Hours (Table) 07/24/22 07/24/22 07/25/22 Range/Units 16:31 20:41 06:13 POC Glucose (mg/dL) 352 H 291 H 349 H (70-110) mg/dL 07/25/22 Range/Units 11:28 POC Glucose (mg/dL) 262 H (70-110) mg/dL Microbiology - Last 24 Hours (Table) 07/19/22 16:15 Blood Culture - Final Blood 07/19/22 16:00 Blood Culture - Final Blood Assessment and Plan Assessment: Acute exacerbation of COPD, possibly related to acute bronchitis. No focal consolidation or pneumonia found on chest x-ray. Negative for COVID-19, influenza, RSV. Pro calcitonin negative at 0.05. Acute hypoxic respiratory failure secondary to above, currently on 2 L nasal cannula. History of left lung squamous cell carcinoma status post left upper lobectomy in 2018 Ex-smoker, with a [id number] history Coronary artery disease with previous NV and stenting of the LAD Hypertension Hyperlipidemia Insulin-dependent diabetes mellitus type 2 Diverticulitis with previous history of bowel resection History of frequent UTIs Fibromyalgia Restless leg syndrome Plan: The patient was seen and evaluated Labs and medications reviewed She is improved and back to baseline Clear for discharge from the pulmonary standpoint Continue her home pulmonary medications Complete a prednisone taper Evaluate for possible home oxygen I have personally seen and examined the patient, performed the documentation and the assessment and plan as written. Number of minutes spent on the visit: 10.
--- NOTE | 2022-07-25 14:54 | P.DS ---
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 Underlying history of hypertension Underlying history of hyperlipidemia Underlying history of insulin-dependent diabetes mellitus Underlying history of tobacco abuse Underlying history of coronary artery disease with previous history of myocardial infarction and angioplasty and stent placement in the LAD Underlying history of gastroesophageal reflux disease Underlying history of fibromyalgia Underlying history of restless leg syndrome Hospital course: Neeru Dow, is a 71-year-old female who presented to [facility] emergency room with a chief complaint of worsening shortness of breath She was evaluated in the emergency room vital examination on presentation revealed a temperature of 97.4 pulse 104 respiration 28 blood pressure 102/51 pulse ox 94% on room air Laboratory data revealed a white blood count of 9.8 hemoglobin 14.0 platelet count 237 d-dimer 0.58 BUN 14 creatinine 0.51 troponin level less than 0.012 lactic acid on presentation 2.5 COVID-19, influenza, and RSV titers were negative. Testing in the emergency room revealed EKG done in the emergency room revealed sinus rhythm with right atrial enlargement and left atrial enlargement. Chest x-ray done in the emergency room revealed evidence of COPD with left hemidiaphragm elevation and chronic density in the left perihilar region. No acute process. Patient was admitted to medical floor for further evaluation and treatment, preliminary diagnosis is acute exacerbation of COPD, patient was started on IV Solu-Medrol and inhaled bronchodilators pulmonary consultation was requested Past medical history is significant for history of coronary artery disease, history of insulin-dependent diabetes mellitus, history of fibromyalgia, history of gastroesophageal reflux disease, history of degenerative disc disease with chronic back pain, history of restless leg syndrome, history of peptic ulcer disease On review of systems patient is alert and oriented 3 in no apparent distress there is no fever or chills no headache or dizziness no chest pain she is complaining of cough and shortness of breath there is no nausea or vomiting no abdominal pain no diarrhea no blood in the stools no burning with urination no frequency or urgency and no hematuria On 11/20/2022 patient is alert and oriented 3. Patient still having coughing and shortness of breath. Patient reports slightly improved. Patient remains on Solu-Medrol azithromycin and ceftriaxone. Pulmonary services are following. Patient denies chest pain. Patient denies nausea vomiting or diarrhea. Patient denies any urinary burning or frequency. Current vital signs temp 97.5, heart rate 85, respiratory rate 17, blood pressure 128/66 On 11/21/2022 patient was seen and examined on the medical floor, she is alert and oriented 3 in no apparent distress, she had minimal improvement since yesterday, there is no fever or chills no headache or dizziness no chest pain she is complaining of cough and shortness of breath there is no nausea or vomiting no abdominal pain no diarrhea no blood in the stools no burning with urination no frequency or urgency and no hematuria. On 07/23/2022 patient is alert and oriented 3. Patient reports minimal improvement. Patient remains on doxycycline and Solu-Medrol. Pulmonary services are following. Current vital signs temp 97.6, heart rate 76, respiratory rate 17, blood pressure 119/47 with a pulse ox 95% on 2 L On 07/24/2022 patient was seen and examined on the medical floor she is still complaining of shortness of breath and wheezing and cough otherwise she denies any complaints there is no fever or chills no headache or dizziness no chest pain no nausea or vomiting no abdominal pain no diarrhea no blood in the stools no burning with urination no frequency or urgency and no hematuria Patient Condition at Discharge: Stable Plan - Discharge Summary Discharge Rx Participant: No New Discharge Prescriptions: New Ipratropium-Albuterol Nebulize [Duoneb 0.5 mg-3 mg/3 ml Soln] 3 ml INHALATION RT-QID each Budesonide-Formot 160-4.5 Mcg [Symbicort 160-4.5 Mcg Inhaler] 2 puff INHALATION RT-BID each predniSONE 10 mg PO DIRECTED 12 Days #30 tab Doxycycline [Vibramycin] 100 mg PO BID cap Continue Pantoprazole [Protonix] 40 mg PO DAILY traZODone HCL 50 mg PO HS Metoprolol Succinate (ER) [Toprol XL] 25 mg PO DAILY Atorvastatin [Lipitor] 40 mg PO HS #30 tab Aspirin EC [Ecotrin Low Dose] 81 mg PO DAILY Loperamide [Imodium] 2 mg PO BID PRN PRN Reason: Diarrhea ALPRAZolam [Xanax] 0.25 mg PO BID PRN PRN Reason: Anxiety HYDROcodone/APAP 10-325MG [[place] 10-325] 1 tab PO BID PRN PRN Reason: Pain Insulin Detemir [Levemir Flexpen] 25 units SQ DAILY PRN PRN Reason: HIGH BLOOD SUGAR Ipratropium/Albuter 20-100Mcg [Combivent Respimat 20-100Mcg Inhaler] 2 puff INHALATION RT-BID lisinopriL [Zestril] 5 mg PO DAILY Melatonin 3 mg PO HS PRN PRN Reason: SLEEP Nitroglycerin Sl Tabs [Nitrostat] 0.4 mg SUBLINGUAL Q5M PRN PRN Reason: Chest Pain rOPINIRole HCL [Requip] 0.25 mg PO HS Isosorbide Mononitrate ER [Imdur] 30 mg PO DAILY #90 tab Insulin Aspart [NovoLOG Flexpen] See Protocol SQ ACHS PRN PRN Reason: HIGH BLOOD SUGAR Clopidogrel [Plavix] 75 mg PO DAILY Docusate [Colace] 100 mg PO DAILY PRN PRN Reason: Constipation Discharge Medication List Pantoprazole [Protonix] 40 mg PO DAILY 01/14/17 [History] traZODone HCL 50 mg PO HS 09/07/18 [History] Metoprolol Succinate (ER) [Toprol XL] 25 mg PO DAILY 01/13/19 [History] Atorvastatin [Lipitor] 40 mg PO HS #30 tab 01/15/19 [Rx] Aspirin EC [Ecotrin Low Dose] 81 mg PO DAILY 01/03/21 [History] Isosorbide Mononitrate ER [Imdur] 30 mg PO DAILY #90 tab 09/15/21 [Rx] Insulin Aspart [NovoLOG Flexpen] See Protocol SQ ACHS PRN 01/05/22 [History] ALPRAZolam [Xanax] 0.25 mg PO BID PRN 02/02/22 [History] Clopidogrel [Plavix] 75 mg PO DAILY 02/02/22 [History] HYDROcodone/APAP 10-325MG [[place] 10-325] 1 tab PO BID PRN 02/02/22 [History] Loperamide [Imodium] 2 mg PO BID PRN 02/02/22 [History] Docusate [Colace] 100 mg PO DAILY PRN 07/19/22 [History] Insulin Detemir [Levemir Flexpen] 25 units SQ DAILY PRN 07/19/22 [History] Ipratropium/Albuter 20-100Mcg [Combivent Respimat 20-100Mcg Inhaler] 2 puff INHALATION RT-BID 07/19/22 [History] Melatonin 3 mg PO HS PRN 07/19/22 [History] Nitroglycerin Sl Tabs [Nitrostat] 0.4 mg SUBLINGUAL Q5M PRN 07/19/22 [History] lisinopriL [Zestril] 5 mg PO DAILY 07/19/22 [History] rOPINIRole HCL [Requip] 0.25 mg PO HS 07/19/22 [History] Budesonide-Formot 160-4.5 Mcg [Symbicort 160-4.5 Mcg Inhaler] 2 puff INHALATION RT-BID each 07/25/22 [Rx] Doxycycline [Vibramycin] 100 mg PO BID cap 07/25/22 [Rx] Ipratropium-Albuterol Nebulize [Duoneb 0.5 mg-3 mg/3 ml Soln] 3 ml INHALATION RT-QID each 07/25/22 [Rx] predniSONE 10 mg PO DIRECTED 12 Days #30 tab 07/25/22 [Rx] Follow up Appointment(s)/Referral(s): Bridger Borja MD [STAFF PHYSICIAN] - 08/16/22 1:00 pm Fernando Chairez MD [Primary Care Provider] - 08/01/22 3:00 pm
[2022-07-25 15:19] VITALS: BP 109/63; TEMP 97.3
[2022-07-25 15:44] VITALS: PULSE 86
== END 2022-07-25 16:13 | disposition home or self-care (01) | DRG 190 ==
LOC: EC 11:55 → 4SSUR 14:45
PROVIDERS: ADMIT Internal Medicine; ATTEND Internal Medicine
DX: J44.1 Chronic obstructive pulmonary disease with (acute) exacerbation (principal); J96.01 Acute respiratory failure with hypoxia; D69.3 Immune thrombocytopenic purpura; J44.0 Chronic obstructive pulmonary disease with (acute) lower respiratory infection; Z20.822 Contact with and (suspected) exposure to COVID-19; J20.9 Acute bronchitis, unspecified; I10 Essential (primary) hypertension; I25.2 Old myocardial infarction; K58.9 Irritable bowel syndrome, unspecified; E11.9 Type 2 diabetes mellitus without complications; J98.6 Disorders of diaphragm; I25.10 Atherosclerotic heart disease of native coronary artery without angina pectoris; M79.7 Fibromyalgia; G89.29 Other chronic pain; M54.9 Dorsalgia, unspecified; G25.81 Restless legs syndrome; E78.5 Hyperlipidemia, unspecified; Z87.891 Personal history of nicotine dependence; Z79.4 Long term (current) use of insulin; Z85.118 Personal history of other malignant neoplasm of bronchus and lung; Z87.11 Personal history of peptic ulcer disease; Z87.440 Personal history of urinary (tract) infections; Z90.2 Acquired absence of lung [part of]; Z95.5 Presence of coronary angioplasty implant and graft; Z90.49 Acquired absence of other specified parts of digestive tract; Z87.19 Personal history of other diseases of the digestive system
CPT/HCPCS: 36415; 71046; 80048; 80053; 83036; 83605; 84145; 84484; 85025; 85379; 85610; 85730; 87636; 93005; 94640; 94667; 94760; 96361; 96365; 96366; 96367; 96375; 96376; 99285

== ENCOUNTER → 2022-12-11 | Outpatient (CLI) | payer MEDICARE, OTHER ==
[2022-12-11 12:26] LABS: African American GFR (CKD) >90 (>60 ml/min/1.73 sqM); Blood Urea Nitrogen 8 mg/dL (7-17); Non-African American GFR(CKD) >90 (>60 ml/min/1.73 sqM)
--- NOTE | 2022-12-11 15:03 | CT ---
EXAMINATION TYPE: CT ChestAbdPelvis w con DATE OF EXAM: 12/11/2022 COMPARISON: 06/07/2022 HISTORY: f/u lymphoma and lung ca CT DLP: 498.4 mGycm CONTRAST: CT scan of the chest, abdomen and pelvis is performed with Oral Contrast and with IV Contrast, patien t injected with 100 mL of Isovue 370. CT Chest: LUNGS: Moderate underlying emphysematous changes are again noted. Persistent posttreatment change to the left lung with partial pneumonectomy and left-sided volume loss. Retraction of the left hilum sup eriorly. Mild left greater than right biapical pleural/parenchymal scarring is redemonstrated. No ple ural effusion or pneumothorax seen bilaterally. Scattered small to tiny nodules in the left lower christiano g are redemonstrated all measuring less than 1 cm in size. No increase in nodule seen. MEDIASTINUM: Thoracic aorta is of normal caliber. Aberrant right brachiocephalic artery. The heart i s not enlarged. No evidence for mediastinal mass or adenopathy. HILAR STRUCTURES: No evidence for mass. No hilar adenopathy is appreciated. OTHER: No significant abnormality. CONTRAST CT ABDOMEN AND PELVIS FINDINGS: LIVER/GB: The gallbladder is surgically absent. No space occupying hepatic lesion. Probable postsurgi alina and senescent intra and extrahepatic biliary ductal prominence which is mild and degree. PANCREAS: No inflammation. No distinct mass. SPLEEN: No splenic enlargement. No lesion seen. ADRENALS: Stable 2 cm left adrenal nodule. No thickening. KIDNEYS/BLADDER: No hydronephrosis. No nephrolithiasis. Left renal cyst is unchanged. BOWEL: Normal appendix. Normal bowel caliber. No inflammation. Postsurgical anastomosis within the right hemicolon. There is moderate fecal stasis. Small and large bowel are of normal caliber. GENITAL ORGANS: No gross abnormality. LYMPH NODES: No greater than 1cm abdominal or pelvic lymph nodes are appreciated. AORTA: No significant abnormality. OSSEOUS STRUCTURES: No significant abnormality is seen. OTHER: No significant additional abnormality is seen. IMPRESSION: 1. Stable examination with postoperative changes left chest and scattered left basilar subcentimeter nodularity. Posttreatment changes left lung.
== END | disposition home or self-care (01) ==
LOC: RADCTMAIN 11:38
PROVIDERS: ATTEND Internal Medicine Hematology & Oncology
DX: C34.12 Malignant neoplasm of upper lobe, left bronchus or lung (principal); Z90.49 Acquired absence of other specified parts of digestive tract; Z98.890 Other specified postprocedural states
CPT/HCPCS: 82565; 84520; 71260; 74177; 36415; Q9967

== ENCOUNTER 2023-02-15 15:46 | Emergency (ER) | payer MEDICARE, OTHER ==
[2023-02-15 15:56] VITALS: RESP 18
--- NOTE | 2023-02-15 16:13 | ED ---
Chest Pain HPI - General Chief Complaint: Chest Pain Stated Complaint: Chest Pain Time Seen by Provider: 02/15/23 15:58 Source: EMS, RN notes reviewed, old records reviewed Mode of arrival: EMS Limitations: no limitations - History of Present Illness Initial Comments: This is a 72-year-old female to the emergency department today. Patient presents today for evaluation regards to chest pain. Patient has persistent chest pain here in the [facility] emergency department. Patient has no shortness of breath no diaphoresis no travel history no sick contacts no other complaints. Patient is without fever currently no cough or congestion. Patient states she has history of CAD and the chest pain does feel like prior heart history of heart problems. MD Complaint: chest pain -: days(s) Onset: during rest, during exertion Pain Location: left chest Severity: mild Severity scale (1-10): 2 Quality: tightness, heaviness Consistency: constant Improves With: nothing Worsens With: nothing Anginal Symptoms: dyspnea, sense of impending doom Other Symptoms: palpitations Treatments Prior to Arrival: none - Related Data Home Medications Medication Instructions Recorded Confirmed traZODone HCL 50 mg PO HS 09/07/18 02/15/23 Metoprolol Succinate (ER) [Toprol 25 mg PO DAILY 01/13/19 02/15/23 XL] Insulin Aspart [NovoLOG Flexpen] See Protocol SQ ACHS 01/05/22 02/15/23 ALPRAZolam [Xanax] 0.25 mg PO HS 02/02/22 02/15/23 HYDROcodone/APAP 10-325MG [[place] 1 tab PO HS 02/02/22 02/15/23 10-325] Loperamide [Imodium] 2 mg PO BID PRN 02/02/22 02/15/23 Insulin Detemir [Levemir Flexpen] 25 units SQ DAILY 07/19/22 02/15/23 Ipratropium/Albuter 20-100Mcg 1 puff INHALATION RT-BID 07/19/22 02/15/23 [Combivent Respimat 20-100Mcg Inhaler] lisinopriL [Zestril] 5 mg PO DAILY 07/19/22 02/15/23 Atorvastatin [Lipitor] 40 mg PO DAILY 02/15/23 02/15/23 rOPINIRole HCL [Requip] 0.5 mg PO HS 02/15/23 02/15/23 Previous Rx's Medication Instructions Recorded Isosorbide Mononitrate ER [Imdur] 30 mg PO DAILY #90 tab 09/15/21 Budesonide-Formot 160-4.5 Mcg 2 puff INHALATION RT-BID each 07/25/22 [Symbicort 160-4.5 Mcg Inhaler] Allergies Allergy/AdvReac Type Severity Reaction Status Date / Time No Known Allergies Allergy Verified 02/15/23 18:36 Review of Systems ROS Statement: Those systems with pertinent positive or pertinent negative responses have been documented in the HPI. ROS Other: All systems not noted in ROS Statement are negative. EKG Findings - EKG Comments: EKG Findings:: EKG is sinus 85 [place] 172 QRS 90 QTC 411 - EKG Results: EKG: interpreted by SAMPSON Past Medical History Past Medical History: Coronary Artery Disease (CAD), Cancer, COPD, Diabetes Mellitus, Fibromyalgia, GERD/Reflux, Myocardial Infarction (NC) Additional Past Medical History / Comment(s): Idiopathic thrombocytopenia purpura, IBS, diverticulitis, hiatal hernia, 2 herniated discs-L3/L4, Restless Leg Syndrome, gastritis, superficial gastric ulcers. Squamous cell lung carcinoma post left upper lobectomy Last Myocardial Infarction Date:: 01/2017 History of Any Multi-Drug Resistant Organisms: None Reported Past Surgical History: Adenoidectomy, Bladder Surgery, Bowel Resection, Cholecystectomy, Heart Catheterization With Stent, Hernia Repair, Hysterectomy, Tonsillectomy Additional Past Surgical History / Comment(s): BLADDER SUSPENSION x 2, breast biopsy x3, bowel resection due to rupture. Robotic-assisted left upper lobectomy in 2018 Past Anesthesia/Blood Transfusion Reactions: No Reported Reaction Additional Past Anesthesia/Blood Transfusion Reaction / Comment(s): Pt received blood in 2006 due to ITP without reaction. Date of Last Stent Placement:: 01/2017 Past Psychological History: Anxiety Smoking Status: Former smoker Past Alcohol Use History: None Reported Past Drug Use History: None Reported - Past Family History Mother Family Medical History: Cancer, Diabetes Mellitus Additional Family Medical History / Comment(s): Father had a defibrillator. He of heart dx in his 80's Father Family Medical History: Diabetes Mellitus Additional Family Medical History / Comment(s): HEART DISEASE General Exam Limitations: no limitations General appearance: alert, in no apparent distress Head exam: Present: atraumatic, normocephalic, normal inspection Eye exam: Present: normal appearance, PERRL, EOMI. Absent: scleral icterus, conjunctival injection, periorbital swelling ENT exam: Present: normal exam, mucous membranes moist Neck exam: Present: normal inspection. Absent: tenderness, meningismus, lymphadenopathy Respiratory exam: Present: normal lung sounds bilaterally. Absent: respiratory distress, wheezes, rales, rhonchi, stridor Cardiovascular Exam: Present: regular rate, normal rhythm, normal heart sounds. Absent: systolic murmur, diastolic murmur, rubs, gallop, clicks GI/Abdominal exam: Present: soft, normal bowel sounds. Absent: distended, tenderness, guarding, rebound, rigid Extremities exam: Present: normal inspection, full ROM, normal capillary refill. Absent: tenderness, pedal edema, joint swelling, calf tenderness Back exam: Present: normal inspection Neurological exam: Present: alert, oriented X3, CN II-XII intact Psychiatric exam: Present: normal affect, normal mood Skin exam: Present: warm, dry, intact, normal color. Absent: rash Course Vital Signs 02/15/23 02/15/23 02/15/23 15:52 16:20 16:40 Temperature 97.9 F Pulse Rate 82 82 87 Respiratory 18 Rate Blood Pressure 111/67 101/35 99/40 O2 Sat by Pulse 98 Oximetry 02/15/23 02/15/23 02/15/23 16:50 17:00 17:10 Temperature Pulse Rate 85 81 84 Respiratory Rate Blood Pressure 99/40 98/49 O2 Sat by Pulse Oximetry 02/15/23 02/15/23 02/15/23 17:20 17:30 17:40 Temperature Pulse Rate 81 82 86 Respiratory Rate Blood Pressure 119/52 O2 Sat by Pulse Oximetry 02/15/23 02/15/23 02/15/23 17:50 18:00 18:10 Temperature Pulse Rate 84 81 Respiratory Rate Blood Pressure 113/53 O2 Sat by Pulse Oximetry 02/15/23 02/15/23 18:20 19:11 Temperature 98 F Pulse Rate 80 Respiratory 18 Rate Blood Pressure O2 Sat by Pulse 97 Oximetry - Reevaluation(s) Reevaluation #1: records are reviewed Reevaluation #2: Patient symptoms are improved, chest pain resolved Reevaluation #3: Patient informed results questions answered Reevaluation #4: 02/15/23 16:13 Was pt. sent in by a medical professional or institution ([facility], [facility], urgent care, hospital, or intermediate...) When possible be specific @ -no Did you speak to anyone other than the patient for history (EMS, parent, family, police, friend...)? What history was obtained from this source @ -no Did you review nursing and triage notes (agree or disagree)? Why? @ -agree Are old charts reviewed (outside hosp., previous admission, EMS record, old EKG, old radiological studies, urgent care reports/EKG's, intermediate records)? Report findings @ -yes Differential Diagnosis (chest pain, altered mental status, abdominal pain women, abdominal pain men, vaginal bleeding, weakness, fever, dyspnea, syncope, headache, dizziness, GI bleed, back pain, seizure, CVA, palpatations, mental health, musculoskeletal)? @ -prior EKG interpreted by me (3pts min.). @ -yes X-rays interpreted by me (1pt min.). @ -yes CT interpreted by me (1pt min.). @ -no U/S interpreted by me (1pt. min.). @ -no What testing was considered but not performed or refused? (CT, X-rays, U/S, labs)? Why? @ -none What meds were considered but not given or refused? Why? @ -none Did you discuss the management of the patient with other professionals (professionals i.e. [facility], [facility], lab, RT, psych nurse, long term care social worker, architecture consultant, teacher, rating officer, caseworker)? Give summary @ -no Was smoking cessation discussed for >3mins.? @ -no Was critical care preformed (if so, how long)? @ -no Were there social determinants of health that impacted care today? How? (Homelessness, low income, unemployed, alcoholism, drug addiction, transportation, low edu. Level, literacy, decrease access to med. care, assisted, rehab)? @ -none Was there de-escalation of care discussed even if they declined (Discuss DNR or withdrawal of care, Hospice)? DNR status @ -no What co-morbidities impacted this encounter? (DM, HTN, Smoking, COPD, CAD, Cancer, CVA, ARF, Chemo, Hep., AIDS, mental health diagnosis, sleep apnea, morbid obesity)? @ -none Was patient admitted / discharged? Hospital course, mention meds given and route, prescriptions, significant lab abnormalities, going to OR and other pertinent info. @ - 72-year-old female to the emergency department for evaluation, chest pain. Patient does have unstable angina with mild troponin leak. Patient is refusing further hospital evaluation admission or observation, patient will follow up with cardiology on an outpatient basis she currently has no chest pain. The symptoms without significant complaint Discharged Undiagnosed new problem with uncertain prognosis? @ -no Drug Therapy requiring intensive monitoring for toxicity (Heparin, Nitro, Insulin, Cardizem)? @ -no Were any procedures done? @ -no Diagnosis/symptom? @ -Chest pain and unstable angina Acute, or Chronic, or Acute on Chronic? @ -Acute Uncomplicated (without systemic symptoms) or Complicated (systemic symptoms)? @ -Complicated Side effects of treatment? @ -no Exacerbation, Progression, or Severe Exacerbation? @ -exacerbation Poses a threat to life or bodily function? How? (Chest pain, USA, NC, pneumonia, PE, COPD, DKA, ARF, appy, cholecystitis, CVA, Diverticulitis, Homicidal, Suicidal, threat to staff... and all critical care pts) @ -yes with significant ACS Reevaluation #5: Differential Chest Pain: Stable Angina, Unstable Angina, STEMI, NSTEMI Aortic Dissection, Pneumothorax, Musculoskeletal, Esophageal Spasm GERD, Cholecystitis, Pancreatitis, Zoster, this is not meant to be an all-inclusive list. Chest Pain MDM - [facility] 72-year-old female to the emergency department for evaluation, chest pain. Patient does have unstable angina with mild troponin leak. Patient is refusing further hospital evaluation admission or observation, patient will follow up with cardiology on an outpatient basis she currently has no chest pain. The symptoms without significant complaint Disposition Clinical Impression: Unstable angina pectoris, Chest pain Disposition: HOME SELF-CARE Condition: Undetermined Instructions (If sedation given, give patient instructions): Chest Pain (ED) Is patient prescribed a controlled substance at d/c from ED?: No Referrals: Fernando Chairez MD [Primary Care Provider] - 1-2 days Time of Disposition: 18:20
[2023-02-15 16:38] LABS: Basophils % (A) 0 %; Eosinophils # (A) 0.1 k/uL (0-0.7); Eosinophils % (A) 2 %; HCT 41.1 % (34.0-46.0); HGB 13.4 gm/dL (11.4-16.0); Lymphocytes # (A) 1.6 k/uL (1.0-4.8); Lymphocytes % (A) 22 %; MCH 29.4 pg (25.0-35.0); MCHC 32.6 g/dL (31.0-37.0); MCV 90.1 fL (80.0-100.0); Mean Platelet Volume 8.7; Monocytes # (A) 0.7 k/uL (0-1.0); Monocytes % (A) 10 %; Neutrophils # (A) 4.5 k/uL (1.3-7.7); Neutrophils % (A) 63 %; Platelet Count 262 k/uL (150-450); RBC 4.56 m/uL (3.80-5.40); RDW 14.8 % (11.5-15.5); WBC 7.1 k/uL (3.8-10.6)
[2023-02-15 16:55] LABS: NT-Pro-B-Type Natriuretic Pept 348 pg/mL
[2023-02-15 16:56] LABS: INR 0.9 (<1.2); Prothrombin Time 10.1 sec (10.0-12.5)
[2023-02-15 17:01] LABS: Partial Thromboplastin Time 21.4 sec (22.0-30.0)
[2023-02-15 17:03] LABS: ALT 19 U/L (4-34); AST 19 U/L (14-36); African American GFR (CKD) 64 (>60 ml/min/1.73 sqM); Albumin 3.5 g/dL (3.5-5.0); Alkaline Phosphatase 104 U/L (38-126); Anion Gap 12 mmol/L; Blood Urea Nitrogen 18 mg/dL (7-17); Calcium 9.2 mg/dL (8.4-10.2); Carbon Dioxide 22 mmol/L (22-30); Chloride 101 mmol/L (98-107); Glucose 329 mg/dL (74-99); Lipase 90 U/L (23-300); Magnesium 1.7 mg/dL (1.6-2.3); Non-African American GFR(CKD) 55 (>60 ml/min/1.73 sqM); Potassium 4.2 mmol/L (3.5-5.1); Sodium 135 mmol/L (137-145); Total Bilirubin 0.3 mg/dL (0.2-1.3); Total Protein 5.8 g/dL (6.3-8.2)
[2023-02-15 18:42] VITALS: BP 113/53; PULSE 80
[2023-02-15 19:29] VITALS: TEMP 98
--- NOTE | 2023-02-16 10:52 | XR ---
EXAMINATION TYPE: XR chest 1V portable DATE OF EXAM: 02/15/2023 HISTORY: Shortness of breath. COMPARISON: 07/19/2022 TECHNIQUE: Single view of the chest is submitted. FINDINGS: Demonstrated are scattered senescent parenchymal change. There is no evidence for focal infiltrate. 2.2 cm left upper lobe left suprahilar pulmonary nodule. Chronic elevation left hemidiaphragm. The heart is stable. Hilar and mediastinal structures are within normal limits. Degenerative changes are seen of the dorsal spine. IMPRESSION: 1. Chronic changes without evidence for acute pulmonary disease. Left suprahilar pulmonary nodule.
== END 2023-02-15 19:13 | disposition home or self-care (01) ==
LOC: EC 15:46
DX: R07.89 Other chest pain (principal); I25.110 Atherosclerotic heart disease of native coronary artery with unstable angina pectoris; K21.9 Gastro-esophageal reflux disease without esophagitis; J44.9 Chronic obstructive pulmonary disease, unspecified; E11.9 Type 2 diabetes mellitus without complications; I25.2 Old myocardial infarction; F41.9 Anxiety disorder, unspecified; Z87.891 Personal history of nicotine dependence; Z79.4 Long term (current) use of insulin; Z79.899 Other long term (current) drug therapy
CPT/HCPCS: 36415; 71045; 80053; 83690; 83735; 83880; 84484; 85025; 85379; 85610; 85730; 93005; 99285

== ENCOUNTER → 2023-04-27 | Outpatient (CLI) | payer MEDICARE, OTHER ==
--- NOTE | 2023-04-30 07:31 | MM ---
Reason for Exam: Screening (asymptomatic). Last mammogram was performed 1 year(s) and 3 month(s) ago. Patient History: Menarche at age 10. First Full-Term at age 23. Left ovary removed at age 43. Right ovary removed at age 43. Hysterectomy at age 25. Postmenopausal. Estrogen for 12 years from age 43 until age 55. 10/31/2006, Benign Core Biopsy on the right side. 06/24/2003, Benign Ultrasound-Guided Core Biopsy on the left side. 04/11/2002, Benign Ultrasound-Guided Core Biopsy on the right side. Maternal cousin had breast cancer, age 40. Mother had breast cancer, age 60. Risk Values: Monica 5 year model risk: 5.2%. NCI Lifetime model risk: 11.6%. Prior Study Comparison: 04/29/2018 Right Diagnostic Mammogram, [facility]. 01/15/2020 Bilateral Screening Mammogram, [facility]. 02/13/2022 Bilateral MG 3D screening mammo w/cad, [facility]. Tissue Density: There are scattered fibroglandular densities. Findings: Analyzed By CAD. Right breast biopsy clip. There is no suspicious group of microcalcifications or new suspicious mass. Benign-appearing calcifications bilaterally. Overall Assessment: Benign, BI-RAD 2 Management: Screening Mammogram of both breasts in [address] [facility] will attempt to contact patient to return for supplemental views and ultrasound if indicated. Patient should continue monthly self-breast exams. A clinical breast exam by your physician is recommended on an annual basis. This exam should not preclude additional follow-up of suspicious palpable abnormalities. Note on Monica scores and lifetime risk: 1. A Monica score greater than 3% is considered moderate risk. If this is the case, consider specialist referral to assess eligibility for a risk reducing agent. 2. If overall lifetime risk for the development of breast cancer is 20% or higher, the patient may qualify for future screening with alternating mammogram and breast MRI. Electronically signed and approved by: Tera Lincoln DO
== END | disposition home or self-care (01) ==
LOC: RADMAMWWP 12:40
PROVIDERS: ATTEND Internal Medicine
DX: Z12.31 Encounter for screening mammogram for malignant neoplasm of breast (principal); Z78.0 Asymptomatic menopausal state; Z80.3 Family history of malignant neoplasm of breast
CPT/HCPCS: 77063; 77067

== ENCOUNTER → 2023-05-15 | Outpatient (CLI) | payer MEDICARE, OTHER ==
--- NOTE | 2023-05-16 07:57 | US ---
EXAMINATION TYPE: US venous doppler duplex LE LT DATE OF EXAM: 05/15/2023 1:43 PM COMPARISON: NONE CLINICAL INDICATION: Female, 72 years old with history of M79.662 LLE; Left leg pain. Patient states she has RLS and spine problems. No redness or swelling. SIDE PERFORMED: Left TECHNIQUE: The lower extremity deep venous system is examined utilizing real time linear array sonog ramses with graded compression, doppler sonography and color-flow sonography. VESSELS IMAGED: Common Femoral Vein Deep Femoral Vein Greater Saphenous Vein * Femoral Vein Popliteal Vein Small Saphenous Vein * Proximal Calf Veins (* superficial vessels) Left Leg: Negative for DVT IMPRESSION: No evidence for DVT within the left lower extremity imaged from the groin to the upper calf.
== END | disposition home or self-care (01) ==
LOC: RADUSWWP 13:23
PROVIDERS: ATTEND Internal Medicine
DX: M79.662 Pain in left lower leg (principal)

== ENCOUNTER → 2023-05-30 | Outpatient (CLI) | payer MEDICARE, OTHER ==
--- NOTE | 2023-05-30 11:47 | XR ---
EXAMINATION TYPE: XR lumbosacral spine 5 views DATE OF EXAM: 05/30/2023 Comparison: None Clinical History: 72-year-old female M54.50 Low back pain Findings: Severe degenerative change L3-S1 levels with narrowed, desiccated discs and vacuum phenomenon. Advanc ed hypertrophic facet arthropathy throughout the lumbar spine especially mid to lower lumbar spine. D egenerative grade 1 anterolisthesis L3-L4. Remaining alignment is maintained and vertebral body heigh ts are preserved. Scattered calcifications throughout the abdominal aorta with mild dilatation of 3.0 cm upper to mid abdominal aorta. Impression: 1. Severe degenerative disc disease L3-S1 levels. 2. Severe facet arthropathy especially mid to lower lumbar spine. 3. Degenerative grade 1 anterolisthesis L3-L4. 4. There may be mild AAA measuring up to 3.0 cm.
== END | disposition home or self-care (01) ==
LOC: RADXRMAIN 10:36
PROVIDERS: ATTEND Internal Medicine
DX: M51.37 Other intervertebral disc degeneration, lumbosacral region (principal); M47.816 Spondylosis without myelopathy or radiculopathy, lumbar region; M43.16 Spondylolisthesis, lumbar region
CPT/HCPCS: 72110

== ENCOUNTER → 2023-06-15 | Outpatient (CLI) | payer MEDICARE ==
--- NOTE | 2023-06-18 07:14 | US ---
EXAMINATION TYPE: US duplex aorta DATE OF EXAM: 06/15/2023 COMPARISON: NONE CLINICAL INDICATION: Female, 72 years old with history of I71.9 AORTIC ANEURYSM OF UNSPECIFIED SITE, WITHOUT; TECHNIQUE: Multiple sonographic images of the abdominal aorta are obtained. FINDINGS: EXAM MEASUREMENTS: Abdominal Aorta: Proximal: 2.3 x 2.0cm Mid: 1.9 x 1.9cm Distal: 1.8 x 1.8cm Bifurcation: Right Iliac: 0.8 x 0.8cm Left Iliac: 0.8 x 0.8cm Aorta limited by overlying midline bowel gas, no AAA seen at this time IMPRESSION: 1. No aneurysmal dilatation of the visualized abdominal aorta.
== END | disposition home or self-care (01) ==
LOC: RADUSWWP 16:10
PROVIDERS: ATTEND Internal Medicine
DX: I71.9 Aortic aneurysm of unspecified site, without rupture (principal)
CPT/HCPCS: 93979

== ENCOUNTER → 2023-08-27 | Outpatient (CLI) | payer MEDICARE, OTHER ==
[2023-08-27 15:53] LABS: Blood Urea Nitrogen 13.8 mg/dL (9.0-27.0); Carbon Dioxide 21.5 mmol/L (21.6-31.8); Chloride 104 mmol/L (96-109); Potassium 4.5 mmol/L (3.5-5.5); Sodium 137 mmol/L (135-145)
[2023-08-27 15:59] LABS: HCT 41.4 % (37.2-46.3); HGB 13.2 g/dL (12.0-15.0); MCH 28.2 pg (27.0-32.0); MCHC 31.9 g/dL (32.0-37.0); MCV 88.5 FL (80.0-97.0); Mean Platelet Volume 10.9 FL (9.5-12.2); NRBC Per 100 WBC 0 X 10*3/uL (0.00-0.01); Platelet Count 267 X 10*3/uL (140-440); RBC 4.68 X 10*6/uL (4.10-5.20); RDW 14.1 % (11.5-14.5)
== END | disposition home or self-care (01) ==
LOC: LABPAT 11:25
PROVIDERS: ATTEND Internal Medicine Interventional Cardiology
DX: Z01.812 Encounter for preprocedural laboratory examination (principal); R07.9 Chest pain, unspecified
CPT/HCPCS: 80051; 82565; 84520; 85027

== ENCOUNTER 2023-09-19 05:54 | Day surgery (SDC) | payer MEDICARE, OTHER ==
[~2023-09-19 05:54] MED LIST changes: -ASPIRIN 325 MG TAB PO ONE; -ASPIRIN 81 MG ONE; -ASPIRIN 81 MG PO SCH; -ATORVASTATIN 40 MG TAB PO SCH; -ATORVASTATIN 80 MG TAB PO ONE; -FENOFIBRATE 160 MG TAB PO SCH; -HEPARIN SODIUM 1,000 UN/ML (10ML VL) IV ONE; -HEPARIN SODIUM 1,000 UN/ML (10ML VL) ONE; +HEPARIN SODIUM,PORCINE (1 ML) 2,500 UNIT in SODIUM CHLORIDE 0.9% 250 ML IRRIGATION PRN; +HEPARIN SODIUM,PORCINE 10,000 UNIT in SODIUM CHLORIDE 0.9% 1,000 ML IRRIGATION PRN; -IOPAMIDOL-370 125ML BTL INJ ONE; -ISOSORBIDE MONONITRATE ER 30 MG TAB.ER.24H PO SCH; -LIDOCAINE 1% INJ 10MG/ML (5 ML VIAL-PF) SQ ONE; -LOPERAMIDE 2 MG CAP PO PRN; -MELATONIN 3 MG TABLET PO SCH; -METOPROLOL SUCCINATE (ER) 25 MG TAB.ER.24H PO SCH; -Mirabegron [Myrbetriq] 25 MG Tab.Er.24h PO SCH; -PANTOPRAZOLE 40 MG TABLET PO SCH; -RX INFO: IV CONTRAST WAS GIVEN 1 EACH MISC MISCELLANE PRN; -SODIUM CHLORIDE 0.9% 1,000 ML IV ONE; -SODIUM CHLORIDE 0.9% 1,000 ML IV SCH; -SODIUM CHLORIDE 0.9% 1,000 ML in EMPTY BAG 1 BAG IV SCH; -SYMBICORT 160-4.5 MCG INHALER INHALATION SCH; -VERAPAMIL 2.5 MG/ML 2 ML AMP ONE; -VERAPAMIL SYRINGE (5 MG/10 ML) INTRAARTER ONE; -fentaNYL (PF) 50 MCG/ML 2 ML AMP IVP ONE; -fentaNYL (PF) 50 MCG/ML 2 ML AMP ONE; -lisinopriL 5 MG TAB PO SCH; -methocarbamoL 750 MG TAB PO PRN; -traZODone HCL 50 MG TAB PO SCH
[2023-09-19 06:47] LABS: Glucose,Whole Blood 168 mg/dL (70-110)
[2023-09-19] MEDS: SODIUM CHLORIDE 0.9% 1,000 ML in EMPTY BAG 1 BAG IV SCH (06:49)
[2023-09-19 06:51] VITALS: RESP 16; TEMP 97.7
[2023-09-19] MEDS: IV FLUID CONTINUATION 1,000 ML IV ONE (06:54)
[2023-09-19] MEDS: ASPIRIN 325 MG TAB PO STA (06:54)
[2023-09-19] MEDS ORDERED: HEPARIN SODIUM 1,000 UN/ML (10ML VL) ONE (07:20)
[2023-09-19] MEDS ORDERED: fentaNYL (PF) 50 MCG/ML 2 ML AMP ONE (07:20)
[2023-09-19] MEDS ORDERED: VERAPAMIL 2.5 MG/ML 2 ML AMP ONE (07:21)
[2023-09-19] MEDS ORDERED: LIDOCAINE 1% INJ 10MG/ML (20 ML MDV) ONE (07:21)
[2023-09-19] MEDS: fentaNYL (PF) 50 MCG/ML 2 ML AMP IVP ONE (07:33)
[2023-09-19] MEDS: LIDOCAINE 1% INJ 10MG/ML (20 ML MDV) SQ ONE ×2 (07:38→07:40)
[2023-09-19] MEDS: MIDAZOLAM 2 MG/2 ML VIAL IVP ONE (07:39)
[2023-09-19] MEDS: VERAPAMIL SYRINGE (5 MG/10 ML) INTRAARTER ONE ×2 (07:40→07:42)
[2023-09-19] MEDS: HEPARIN SODIUM 1,000 UN/ML (10ML VL) IVP ONE (07:52)
[2023-09-19] MEDS: IOPAMIDOL-370 200ML BTL INJ ONE (07:59)
[2023-09-19] MEDS ORDERED: RX INFO: IV CONTRAST WAS GIVEN 1 EACH MISC MISCELLANE PRN (08:15)
--- NOTE | 2023-09-19 08:22 | P.CARDCATH ---
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 Recommendations were made regarding cardiac catheterization, the risks and the complications were discussed with the patient who is in full understanding and agreement. Procedure Description: Patient was brought to clinical laboratory technologist in fasting semi-sedated state after receiving Fentanyl and Benadryl achieiving moderate conscious sedated state. Using Xyloca ine Anesthesia and modified Seldinger technique, a 6-[place] sheath was introduced in the right radial artery . Subsequently, selective coronary angiography was performed using a 5-[place] 3.5 left and 5 right bend Romel catheter. Multiple views of the coronary artery including hemiaxial views were obtained. The right Romel catheter was used to cross the aortic valve and LVEDP was calculated. Following that, catheter and sheath were removed. Hemostasis was obtained with deployment of vascular band . There was no immediate complication. Patient was returned to room in stable condition. Of note, the patient received a total of 3000 units of intravenous heparin as well as intra-arterial verapamil. Findings: Left main: This is a large size vessel, bifurcating into LAD and left circumfle x, left main has no obstructive disease LAD: This is a large size vessel, reaching to the apex with a wraparound apex segment, giving rise to a moderately sized diagonal branch proximally. The stented segment in the proximal LAD is patent with mild in-stent restenosis of 10 to 20% the rest of the vessel has no high-grade stenosis Left circumflex: This is a nondominant vessel, large in caliber giving rise to 2 obtuse marginal branch of moderate caliber, the left circumflex has no significant obstructive disease RCA: This is a dominant vessel chronically occluded from the ostium. There is stents from the ostium to the mid RCA. There is collaterals from the left coronary system feeding the PDA and a PLV extending to the mid RCA Left Ventriculogram: Not performed Hemodynamics: There was no gradient across aortic valve, LVEDP was 14-16 mmHg Conclusion: 1. 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 Patent stent in the proximal LAD with mild intimal disease 3. No significant disease in the left circumflex 4. Dominant right Recommendations: I have recommended to continue medical therapy with the aggressive coronary risks modification that has been initiated, I will maximize medical therapy. I do not believe that the attempt to recanalize the right coronary artery in view of the chronic total occlusion will be indicated. The findings and the recommendations were discussed with the patient and the family and they were in full understanding and agreement. Duration of sedation is 22 minutes.
[2023-09-19] MEDS: SODIUM CHLORIDE 0.9% 1,000 ML IV SCH (08:43)
[2023-09-19] MEDS ORDERED: ATORVASTATIN 40 MG TAB PO SCH (09:00)
[2023-09-19] MEDS ORDERED: lisinopriL 5 MG TAB PO SCH (09:00)
[2023-09-19] MEDS ORDERED: NON FORMULARY DRUG (Insulin Glargine,Hum.Rec.Anlog [Toujeo Solostar] 300 UNIT/ML Insuln.Pe SQ SCH (09:00)
[2023-09-19] MEDS ORDERED: METOPROLOL SUCCINATE (ER) 25 MG TAB.ER.24H PO SCH (09:00)
[2023-09-19] MEDS ORDERED: ISOSORBIDE MONONITRATE ER 30 MG TAB.ER.24H PO SCH (09:00)
[2023-09-19 11:16] VITALS: BP 116/57; PULSE 75
[2023-09-19] MEDS ORDERED: traZODone HCL 50 MG TAB PO SCH (21:00)
[2023-09-19] MEDS ORDERED: NON FORMULARY DRUG (Ropinirole Hcl [Requip] 0.5 MG Tablet) PO SCH (21:00)
[2023-09-20] MEDS ORDERED: ASPIRIN 81 MG PO SCH (09:00)
== END 2023-09-19 11:55 | disposition home or self-care (01) ==
LOC: CATHCVL 05:54
PROVIDERS: ATTEND Internal Medicine Interventional Cardiology
DX: I25.10 Atherosclerotic heart disease of native coronary artery without angina pectoris (principal); I10 Essential (primary) hypertension; E78.5 Hyperlipidemia, unspecified; E11.9 Type 2 diabetes mellitus without complications; F17.200 Nicotine dependence, unspecified, uncomplicated
CPT/HCPCS: 93458; C1769 ×2; C1894; J2250; J2001; J3010; J1644; Q9967

== ENCOUNTER → 2023-12-26 | Outpatient (CLI) | payer MEDICARE, OTHER ==
--- NOTE | 2023-12-26 15:15 | CTL ---
EXAMINATION TYPE: CT Low Dose Lung DATE OF EXAM ORDERED: 12/26/2023 HISTORY: Nicotine dependence, current smoker, 30 pack-year history. Lung cancer screening CT DLP: 56.[address] CTDI: 1.6 mGy Automated exposure control for dose reduction was used. SCREENING VISIT: First screening visit COMPARISON: CT chest abdomen and pelvis 12/11/2022, 05/11/2021, 06/07/2022 TECHNIQUE: Low dose computed tomography scan was performed through the chest at 1 mm thick sections a nd reconstructed images in multiple planes at 1 mm and [address] DIAGNOSTIC QUALITY: Satisfactory FINDINGS: Nodules: Stable scattered solid pulmonary nodules from prior exam. Examples include a right middle lobe 8 mm n odule (series 6, image 36), right lower lobe 3.4 mm pulmonary nodule (series 6, image 46), left lower lobe peripheral 5.7 mm pulmonary nodule (series 6, image 38). Left lower lobe 7.2 mm pulmonary nodul e (series 6 image 39). No definitive new pulmonary nodules. LUNGS: COPD: Severity: Moderate Fibrosis: Severity: None Lymph nodes: None Other findings: Postsurgical changes to the left lung with partial pneumonectomy and left-sided volum e loss with mediastinal shift to the left. RIGHT PLEURAL SPACE: Effusion: None Calcification: None Thickening: None Pneumothorax: None LEFT PLEURAL SPACE: Effusion: None Calcification: None Thickening: None Pneumothorax: None HEART: Heart Size: Normal Coronary Calcification: Large Pericardial Effusion: None OTHER FINDINGS: Upper abdomen: Stable 1.9 cm left adrenal gland nodule. Bony thorax: None Supraclavicular region: None Other: Moderate atherosclerotic calcification of the aorta and its branches. Anatomic variant with ri ght aberrant subclavian artery with posterior esophageal course. IMPRESSION: 1. Stable scattered solid pulmonary nodules dating back to at least 2021. No new or enlarging pulmon desmond nodules. 2. Moderate COPD changes with postsurgical changes from left partial pneumonectomy. 3. Large coronary arterial calcifications which may be a indicator of coronary artery disease. 4. Stable left adrenal gland [address] LUNG RAD AND CT CHEST RECOMMENDATION: Lung-Rad 2 Benign Appearance or Behavior: Continue annual sc reening with LDCT in 12 months. S Modifier (other clinically significant findings): [facility], , 12/26/2023 3:13 PM
== END | disposition home or self-care (01) ==
LOC: RADCTMAIN 14:27
PROVIDERS: ATTEND Internal Medicine
DX: Z12.2 Encounter for screening for malignant neoplasm of respiratory organs (principal); J44.9 Chronic obstructive pulmonary disease, unspecified; I25.10 Atherosclerotic heart disease of native coronary artery without angina pectoris; R91.8 Other nonspecific abnormal finding of lung field; E27.8 Other specified disorders of adrenal gland; F17.210 Nicotine dependence, cigarettes, uncomplicated
CPT/HCPCS: 71271